=== PATIENT | male | born 1950 | race Caucasian/White ===

== ENCOUNTER → 2024-06-26 | Outpatient (CLI) | payer MEDICARE, SELFPAY ==
--- NOTE | 2024-06-26 08:23 | VDUE_ITS ---
Reason For Study: Pre Op Dialysis Right Lower Arm Left Arm Proximal Radial artery diameter 0.28 x 0.26 Left Brachial artery diameter 0.69 x 0.63 mm. mm. Proximal Radial artery waveform is Left Brachial artery waveform is triphasic . triphasic . Cephalic Vein at distal forearm measures Right Arm 0.14 x 0.13 mm. Right Brachial artery diameter 0.72 x 0.70 Cephalic Vein at mid forearm measures 0.13 x mm. 0.15 mm. Right Brachial artery waveform is Cephalic Vein proximal forearm measures 0.15 triphasic . x 0.14 mm. Cephalic Vein at distal forearm measures Cephalic Vein distal upper arm measures 0.31 0.20 x 0.22 mm. x 0.32 mm. Cephalic Vein at mid forearm measures 0.26 x Cephalic Vein at mid upper arm measures 0.11 0.31 mm. x 0.13 mm. Cephalic Vein proximal forearm measures 0.24 Cephalic Vein at proximal upper arm measures x 0.26 mm. 0.11 x 0.12 mm. Unable to visualize Cephalic V throughout Rt Proximal Basilic vein measures 0.33 x 0.30 Upper Arm. Basilic branch appears to connect mm. to cephalic at AC. Mid Basilic vein measures 0.29 x 0.29 mm. Proximal Basilic vein measures 0.63 x 0.56 Distal Basilic vein measures 0.32 x 0.33 mm. mm. Left Lower Arm Mid Basilic vein measures 0.36 x 0.44 mm. Proximal Radial artery diameter 0.39 x 0.36 Distal Basilic vein measures 0.37 x 0.40 mm. mm. Proximal Radial artery waveform is triphasic . VL/Dialysis Vein Map PRE-OP BILAT Interpretation Summary Bilateral upper extremity arteries patent with normal waveforms and measurement s above. Bilateral upper extremity veins patent with measurements above. Ordering Physician: Cristofer Falcon Referring Physician: Joseluis Bates Performed By: Nam, Mykel, RVT ???
== END | disposition home or self-care (01) ==
PROVIDERS: PCP Family Medicine; Referring Provider Student in an Organized Health Care Education/Training Program; Visit Provider Student in an Organized Health Care Education/Training Program
DX: Z99.2 Dependence on renal dialysis (principal)
CPT/HCPCS: 93985

== ENCOUNTER 2024-09-12 06:02 | Day surgery (SDC) | payer MEDICARE, SELFPAY ==
--- NOTE | 2024-08-29 18:46 | PAT.ANE_ITS ---
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 When Was Last Pacemaker Check QUESTION #4 FULL TEXT: You/Your Family Experience fever (hyperthermia) with Anesthesia Last Oral Intake Last Oral intake: Last Oral Intake NPO since Meds taken in AM with sips of water? 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 programmer Female No 08/29/24 11:42 HX of Motion Sickness No 08/29/24 11:42 HX of N/V After Surgery No 08/29/24 11:42 Non-Smoker Yes 08/29/24 11:42 Duration of Surgery greater Yes 08/29/24 11:42 than 60 minutes Number of Risk Factors 2 08/29/24 11:42 PONV Score Moderate Risk 08/29/24 11:42 Respiratory Assessment Respiratory Assessment - z os mainframe systems programmer: Respiratory Tract Infection Hx - z os mainframe systems programmer Hx Respiratory Tract Infection No 08/29/24 11:42 STOP Sleep Apnea STOP Sleep Apnea - z os mainframe systems programmer: STOP Sleep Apnea - z os mainframe systems programmer Hx Hypertension Yes: CONTROLLED WITH MED 08/29/24 11:42 Hx Sleep Apnea No 08/29/24 11:42 CPAP BIPAP Do you snore loudly (louder Yes 08/29/24 11:42 than talking or can be heard Do you often feel tired/ No 08/29/24 11:42 fatigued/ sleepy during daytime? Has anyone observed you stop No 08/29/24 11:42 breathing during sleep? STOP Results Positive 08/29/24 11:42 QUESTION #5 FULL TEXT : Do you snore loudly (louder than talking or can be heard through closed doors)? 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 Specify any problems Hx of Preganancy in last 3 N/A 08/29/24 11:42 Months Nurse Filling Out Transfusion DSCHRIBER 08/29/24 11:42 & Questions: Date: 08/29/24 08/29/24 11:42 Time: 11:44 08/29/24 11:42 Patient unable to answer at this time (ie. 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 programmer: /Reproductive Hx- z os mainframe systems programmer Hx Now No 08/29/24 11:42 Gestational Age (in weeks): EDC: Hx Hx Para Hx Section SAB No 08/29/24 11:42 [facility] Medical History (Updated 08/29/24 @ 12:00 by Marsha Acuña) Open wound Wears glasses Alcohol use Ambulates with cane Gout Arthritis Low iron Easy bruising Back pain Dietary restriction Former smoker Shortness of breath on exertion Insulin dependent diabetes mellitus History of pain when walking History of edema History of echocardiogram Cardiology follow-up encounter History of atrial fibrillation History of GI bleed History of renal dialysis History of hemodialysis CHF (congestive heart failure) Peptic ulcer Hypertension Diabetes ESRD (end stage renal disease) Home Medications ?Medication ?Instructions ?Recorded ?Last Taken ?Type furosemide 20 mg tablet (Lasix) 20 mg PO BID 08/21/24 Unknown History hydrochlorothiazide 50 mg tablet 100 mg PO BID 08/21/24 Unknown History vitamin B complex and vitamin C 1 cap PO QDAY 08/21/24 Unknown History no.20-folic acid 1 mg capsule (Renal Caps) allopurinol 100 mg tablet 100 mg PO DAILY 08/29/24 Unknown History apixaban 5 mg tablet (Eliquis) 5 mg PO BID 08/29/24 Unknown History isosorbide mononitrate 30 mg 60 mg PO DAILY 08/29/24 Unknown History tablet,extended release 24 hr Allergy/AdvReac Type Severity Reaction Status Date / Time codeine Allergy Severe Vomiting Verified 08/29/24 10:11 Surgical History (Updated 08/29/24 @ 12:00 by Marsha Acuña) Hx of colonoscopy History of esophagogastroduodenoscopy (EGD) Hx of cholecystectomy History of ankle surgery Social History (Updated 08/21/24 @ 13:45 by Magy Kee) Smoking Status: Former smoker Tobacco: How many years used: 30 how long ago did patient quit smokin yrs Audit: Pertinent Findings Pertinent Findings EKG Perinent findings: A-fib Echo (EF%) pertinent findings: October 26, 2022 ejection fraction 55 to 60% Consult pertinent findings: cardo 03/2024 Chronic afib chronic heart failure with preserved ejection fraction moderate LVH hypertension stage IV chronic kidney disease diabetes type 2 all stable Recommendation Anesthesia Recommendation Anesthesia recommendation: OPTIMIZED for anesthesia
[2024-09-12] VITALS (8 sets, daily range): BP systolic 117–135; BP diastolic 70–86; PULSE 59–76; RESP 16–17; TEMP 36.2–36.8; O2SAT 92–98; BMI 28.1
[2024-09-12 06:55] LABS: Hematocrit 37.6 % (40-54); Hemoglobin 11.2 g/dL (13.0-16.5); Mean Corp Hgb Conc 29.8 g/dL (32-36); Mean Corpuscular Hgb 26.1 pg (27.0-32.0); Mean Corpuscular Volume 87.6 fL (80-94); Mean Platelet Vol. 8.9 fl (6.2-12.0); Platelet Count 238 K/mm3 (150-450); RBC Distribution Width CV 18.6 % (11.6-14.6); RBC Distribution Width SD 59.5 fl (35.1-43.9); Red Blood Count 4.29 M/mm3 (4.6-6.2); White Blood Count 6.3 K/mm3 (4.4-11.0)
--- NOTE | 2024-09-12 06:58 | PRE.ANES_ITS ---
ASA Classification* ASA Classification ASA Classification: 3 Assessment & Plan Anesthesia* Anesthesia Assessment Anesthesia Assessment: Discussed sedation and/or anesthesia options, risks, benefits, and alternatives with patient/parents/legal guardian/POA. Questions invited. The patient/parents/legal guardian/POA seems to understand and agrees to proceed with anesthesia plan. Reviewed the physical assessment, medical history, allergy history and patient home medications list prior to surgery/procedure/anesthetic and documented any changes. Performed airway and anesthesia risk assessments. Anesthesia Type Anesthesia Type: MAC Anesthesia Focused Assessment* Temperature: 98.2 F Pulse Rate: 66 Blood Pressure: 127/71 Respiratory Rate: 17 Pulse Ox: 98 Airway Assessment Mouth opens: >3 cm Mallampati Score: II Focused Labs Anesthesia Preop lab: CBC WBC 6.3 K/mm3 (4.4-11.0) 09/12/24 06:45 RBC 4.29 M/mm3 (4.6-6.2) L 09/12/24 06:45 Hgb 11.2 g/dL (13.0-16.5) L 09/12/24 06:45 Hct 37.6 % (40-54) L 09/12/24 06:45 Plt Count 238 K/mm3 (150-450) 09/12/24 06:45 CHEMISTRY Potassium Pending 09/12/24 06:45 Sodium Pending 09/12/24 06:45 BUN Pending 09/12/24 06:45 Creatinine Pending 09/12/24 06:45 Glucose Pending 09/12/24 06:45 COAG Pre-Assessment Diagnosis/Proposed Procedure Planned Operative Procedure(s): LEFT ARM AV FISTULA CREATON Anesthesia History 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 When Was Last Pacemaker Check QUESTION #4 FULL TEXT: You/Your Family Experience fever (hyperthermia) with Anesthesia Last Oral Intake Last Oral intake: Last Oral Intake NPO since 04:40 09/12/24 06:50 Meds taken in AM with sips of Yes 09/12/24 06:50 water? Meds patient instructed to see home med list 09/12/24 06:50 take am of surgery PONV PONV - breakfast manager: PONV - breakfast manager Female No 08/29/24 11:42 HX of Motion Sickness No 08/29/24 11:42 HX of N/V After Surgery No 08/29/24 11:42 Non-Smoker Yes 08/29/24 11:42 Duration of Surgery greater Yes 08/29/24 11:42 than 60 minutes Number of Risk Factors 2 08/29/24 11:42 PONV Score Moderate Risk 08/29/24 11:42 Height & Weight Height & Weight: Anesthesia: Height & Weight Height 5 ft 10 in 09/12/24 06:50 Weight: 89 kg 09/12/24 06:50 Body Mass Index (BMI) 28.1 09/12/24 06:50 Respiratory Assessment Respiratory Assessment - breakfast manager: Respiratory Tract Infection Hx - breakfast manager Hx Respiratory Tract Infection No 08/29/24 11:42 STOP Sleep Apnea STOP Sleep Apnea - breakfast manager: STOP Sleep Apnea - breakfast manager Hx Hypertension Yes: CONTROLLED WITH MED 08/29/24 11:42 Hx Sleep Apnea No 08/29/24 11:42 CPAP BIPAP Do you snore loudly (louder Yes 08/29/24 11:42 than talking or can be heard Do you often feel tired/ No 08/29/24 11:42 fatigued/ sleepy during daytime? Has anyone observed you stop No 08/29/24 11:42 breathing during sleep? STOP Results Positive 08/29/24 11:42 QUESTION #5 FULL TEXT : Do you snore loudly (louder than talking or can be heard through closed doors)? 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 Specify any problems Hx of Preganancy in last 3 N/A 08/29/24 11:42 Months Nurse Filling Out Transfusion DSCHRIBER 08/29/24 11:42 & Questions: Date: 08/29/24 08/29/24 11:42 Time: 11:44 08/29/24 11:42 Patient unable to answer at this time (ie. confused, unrespo /Reproduction History /Reproductive History - breakfast manager: /Reproductive Hx- breakfast manager Hx Now No 08/29/24 11:42 Gestational Age (in weeks): EDC: Hx Hx Para Hx Section SAB No 08/29/24 11:42 Active Medications Active Medications: Current Medications Generic Name Dose Route Start Last Admin Trade Name Freq PRN Reason Stop Dose Admin Cefazolin Sodium 2 gm/ N/A 20 mls @ 400 mls/hr 09/12/24 07:30 IV 09/12/24 07:32 PREOP ONE PFSH Medical History Open wound Wears glasses Alcohol use Ambulates with cane Gout Arthritis Low iron Easy bruising Back pain Dietary restriction Former smoker Shortness of breath on exertion Insulin dependent diabetes mellitus History of pain when walking History of edema History of echocardiogram Cardiology follow-up encounter History of atrial fibrillation History of GI bleed History of renal dialysis History of hemodialysis CHF (congestive heart failure) Peptic ulcer Hypertension Diabetes ESRD (end stage renal disease) Home Medications ?Medication ?Instructions ?Recorded ?Last Taken ?Type furosemide 20 mg tablet (Lasix) 20 mg PO BID 08/21/24 09/11/24 History vitamin B complex and vitamin C 1 cap PO QDAY 08/21/24 09/11/24 History no.20-folic acid 1 mg capsule (Renal Caps) allopurinol 100 mg tablet 100 mg PO DAILY 08/29/24 09/12/24 History apixaban 5 mg tablet (Eliquis) 5 mg PO BID 08/29/24 09/10/24 History isosorbide mononitrate 30 mg 60 mg PO DAILY 08/29/24 09/12/24 History tablet,extended release 24 hr famotidine 20 mg tablet 20 mg PO BID 09/12/24 09/11/24 History hydralazine 50 mg tablet 75 mg PO TID 09/12/24 Unknown History pantoprazole 40 mg tablet,delayed 40 mg PO DAILY 09/12/24 09/12/24 History release (Protonix) Allergy/AdvReac Type Severity Reaction Status Date / Time codeine Allergy Severe Vomiting Verified 09/12/24 06:46 Surgical History Hx of colonoscopy History of esophagogastroduodenoscopy (EGD) Hx of cholecystectomy History of ankle surgery Social History Smoking Status: Former smoker Tobacco: How many years used: 30 how long ago did patient quit smokin yrs Review of Systems (Anesthesia) ROS Narrative System reviewed and no additional complaints, except as documented.
[2024-09-12 07:09] LABS: Bedside Glucose 115 mg/dL (74-106)
[2024-09-12 07:15] LABS: Anion Gap 5 (5-15); BUN 41 mg/dL (7-18); BUN/Creat Ratio 10.6 RATIO (10-20); Calcium,Total 9.1 mg/dL (8.5-10.1); Chloride 102 mmol/L (98-107); Creatinine, Serum 3.88 mg/dL (0.70-1.30); EST Glomerular Filtration Rate 16 mL/min (>60); Est Glom Filt Rate - Afr Amer 20 mL/min (>60); Estimated Creatinine Clearance 19.33 ml/min; Glucose 117 mg/dL (74-106); Potassium 4.3 mmol/L (3.5-5.1); Sodium Level 136 mmol/L (136-145)
--- NOTE | 2024-09-12 07:37 | PCM.HP.BLA ---
History and Physical Allergies codeine Allergy (Severe, Verified 08/21/24 13:47) Vomiting Medications ?Medication ?Instructions ?Recorded ?Confirmed ?Type furosemide 20 mg tablet (Lasix) 20 mg PO BID 08/21/24 08/21/24 History hydrochlorothiazide 50 mg tablet 100 mg PO BID 08/21/24 08/21/24 History vitamin B complex and vitamin C 1 cap PO QDAY 08/21/24 08/21/24 History no.20-folic acid 1 mg capsule (Renal Caps) Have you fallen in the past year?: Yes PFSH Medical History (Updated 08/21/24 @ 15:[address] Hugo Otto MD) CHF (congestive heart failure) Peptic ulcer Hypertension Diabetes ESRD (end stage renal disease) Surgical History (Updated 08/21/24 @ 13:44 by Magy eKe) Hx of cholecystectomy History of ankle surgery Social History (Updated 08/21/24 @ 13:45 by Magy Kee) Smoking Status: Former smoker Tobacco: How many years used: 30 how long ago did patient quit smokin yrs HPI HPI HPI: ROZ BAKER, is a 74 M who presents to the office today for evaluation for dialysis access. He has been on HD via right IJ catheter since ~ March. Had been followed for many years for renal decline due to HTN and DM. No prior arm or clavicle fracture/pacer/node dissection/DVT/PICC. Right hand dominant. ROS General General: Yes weight change; No appetite, fatigue, colon cancer, breast cancer or weakness HEENT HEENT: No difficulty swallowing, eye injury, eye surgery, swollen glands or hoarseness Endo Endocrine: No thyroid disease, diabetes mellitus, thyroid cancer, Hair loss, heat intolerance or cold intolerance Skin Skin: No rash or changing moles Musc Musculoskeletal: Yes arthritis, gout and joint pain; No back problems or rheumatoid arthritis Cardio Cardiovascular: Yes murmur and high blood pressure; No pacemaker, heart disease, atrial fibrillation, heart attack, heart stent, palpitations, shortness of breat with exertion or chest pain Psych Psychiatric: No depression, anxiety or hearing voices Resp Respiratory: Yes shortness of breath, No sleep apnea, No cough, No COPD, No asthma, No emphysema and No wheezing Gastro Gastrointestinal: No abdominal pain, No nausea or vomiting, No diarrhea, No constipation, No blood in stool, No acid reflux, No hemorrhoids, Yes ulcers, No gallbladder problem and No black,tarry stools Zan Hematologic: Yes blood thinners, No blood disorders, No bleeding, No anemia and No blood clots Neuro Neurologic: No system reviewed and no additional complaints, except as documented, No as per HPI, No abnormal gait, No abnormal hearing, No abnormal movements, No abnormal speech, No behavioral changes, No burning sensations, No confusion, No convulsions, No disequilibrium, No dizziness, No localized weakness, No frequent falls, No headache(s), No lack of coordination, No loss of vision, No memory loss, Yes numbness, No other visual disturbances, No radicular pain, No restless legs, No sensory deficit, No syncope, Yes tingling, No tremor(s), No weakness and No other Exam Const General: cooperative, healthy appearing, comfortable, no acute distress and well developed Nutritional Appearance: well nourished Orientation: alert, awake and oriented x3 HENMT Head: normocephalic and atraumatic Ears: hearing grossly normal bilaterally Nose: external nose normal Eyes General: appearance normal, both eyes and all related structures EOM: EOM intact bilaterally Neck Neck: normal visual inspection, full ROM and trachea midline Resp Effort & Inspection: normal respiratory effort, able to speak in complete sentences, symmetric chest movement, no audible wheezes, not labored, no stridor and no use of accessory muscles Cardio Rate: regular rate Rhythm: regular rhythm Pulses: brachial pulses present and radial pulses present Skin General: no rashes or lesions noted and no erythema Wounds: no wounds Neuro Cranial Nerves: CN's II-XI intact bilaterally and EOM intact bilaterally Speech: speech normal Gait: normal gait Motor: strength 5/5 throughout Sensory Exam: no sensory deficits noted Psych Appearance: grossly normal and well kempt Mental Status: mental status grossly normal Mood: congruent mood Speech and Movement: speech and movement normal Thought Content: normal Judgment: judgment good Coding Level of Care Code Off vis,new,level 4 Diagnoses ESRD (end stage renal disease) on dialysis N18.6; Z99.2 Assessment and Plan Assessment and Plan (1) ESRD (end stage renal disease) on dialysis: Status: Chronic Plan: -vein mapping reveals adequate bilateral basilic veins -plan left arm stage I -has left rotator cuff issues; intact passive motion at shoulder
[2024-09-12] MEDS: Cefazolin 2 GM in Syringe IV (07:43)
--- NOTE | 2024-09-12 08:54 | DCINST_ITS ---
Discharge Instructions Diet Discharge Diet: No restrictions Activity Lifting Restrictions: do not lift > 20 lbs with left arm for 14 days Additional Activity Instructions:: do not submerge incision for 14 days Dressing / Incision Call your doctor if your incision/area has: Sudden Increased Bleeding, Increased Pain/ Swelling, Increased Redness and Foul Smelling Discharge Call your doctor if you observe: Fever of 101 or Higher, Coldness, Increased Pain and Numbness or Tingling Remove Dressing in: 2 days Cleanse incision/area with: Soap & Water Follow Up Care Test Results: Test results from this visit will be discussed in further detail at your follow- up appointment, if applicable. Discharge Plan Admission Attending Provider: Hugo Otto Primary Care Provider: Joseluis Bates Instructions Print Language: Algerian Discharge Orders/Prescriptions Prescriptions: New oxycodone 5 mg tablet 5 mg PO Q8H PRN (Reason: pain) 2 Days Qty: 6 0RF Continued Renal Caps 1 mg capsule 1 cap PO QDAY furosemide [Lasix] 20 mg tablet 20 mg PO BID isosorbide mononitrate 30 mg tablet extended release 24 hr 60 mg PO DAILY allopurinol 100 mg tablet 100 mg PO DAILY pantoprazole [Protonix] 40 mg tablet,delayed release (DR/EC) 40 mg PO DAILY hydralazine 50 mg tablet 75 mg PO TID famotidine 20 mg tablet 20 mg PO BID Held Eliquis 5 mg tablet 5 mg PO BID Hold Instructions: Resume on 09/14/24. Referrals / Follow Up: Joseluis Bates MD [Primary Care Provider] - Disposition Disposition (needs filled in before D/C Order can be placed): Home, Self Care
--- NOTE | 2024-09-12 08:57 | PCM.OPRPT ---
Operative Report (Standard) Operative Information Date of Procedure: 09/12/24 Pre-Operative Diagnosis: ESRD Post-Operative Diagnosis: same Surgery/Procedure Performed: left stage I basilic fistula creation frame aligner: Yes Campus Dean: Clementina Torres Tasks completed by plant attendant or assistant operator: Opening, Closing, Opening & closing, Dissecting tissue, Altering tissue, Hemostasis: Tie and Retracting Type of Anesthesia: Local MAC, Local and MAC RN Documented Start/Stop Times: Operation Date: 09/12/24 07:30 Case Time Into Pre-Op 09/12/24 06:08 Out of Pre-Op 09/12/24 07:38 Anesthesia Start 09/12/24 07:43 Into Room 09/12/24 07:43 Procedure Start 09/12/24 08:05 Procedure End 09/12/24 09:02 Into Recovery 09/12/24 09:05 Anesthesia End 09/12/24 09:06 Out of Room 09/12/24 09:06 Into Phase II Recovery 09/12/24 09:26 Out of Recovery 09/12/24 09:26 Out of Phase II 09/12/24 10:06 Procedure Start Time: 08:05 Procedure Stop Time: 09:00 Select all DRAINS/GRAFTS/IMPLANTS that apply: None Estimated Blood Loss: 15 Specimen collected: No Description of surgery: HPI: Patient is a 74-year-old male with end-stage renal disease currently on dialysis. He had venous duplex mapping which revealed satisfactory left upper arm basilic vein for [place] fistula creation. He presents now for stage I basilic fistula. Description of procedure: Upon obtaining form consent and verification correct patient procedure site patient taken the operating where he was positioned prepped and draped in usual sterile fashion. Timeouts performed and sedation administered by anesthesia. Ultrasound was used to evaluate the basilic vein and its position relative to the brachial artery. The median cubital branch was of satisfactory caliber as well as the die repairer trimmer dies vein in close proximity to the brachial artery distal to the antecubital crease. Skin overlying the vessel was anesthetized 1% lidocaine and transverse incision made with a 15 blade. Bovie electrocautery was used to dissect down through the subcutaneous tissue and self-retaining retractors put in position. Further dissection was carried down until the vein was visualized which point sharp dissection was dissected free proximal and distal and a right angle was placed vessel loop. Sidebranches were ligated with silk ties and divided and we then turned our attention to the arterial exposure. Bovie was utilized to dissect down to the level the fascia which was then incised in a cruciate configuration exposing the brachial artery. Self-retaining retractors were then moved deeper in the wound and sharp dissection used to dissect free and the vessel proximal and distal with care taken to identify and protect adjacent nerve and vein structures. A writing was replaced vessel loop proximal and distal and the patient was in heparinized allowed to circulate for 3 minutes. The vein was then marked to maintain orientation and ligated distally and divided. It was then dilated up to 3.5millimeters and flushed with heparinized saline. The brachial arteries and occluded with Vesseloops and longitudinal arteriotomy created with 11 blade and extended with Fair scissors. The vein was then beveled to match the arteriotomy and anastomosis performed with a 6-0 Prolene in a running fashion. Prior to completing the suture line vessels were backbled and after completing the suture line clamps were removed with satisfactory stasis noted. There is a palpable thrill in the outflow fistula and palpable radial pulse remained at the wrist. Heparin was then reversed with protamine the incision inspected hemostasis. We then closed with 3-0 Vicryl followed by 4 Monocryl and Dermabond for the skin. The patient was then taken to the recovery room with anticipated discharge to home. Surgical Findings: see above Complications Complications: No
[2024-09-12] MEDS: Lidocaine 1% (20 ml mdv) 20 ML Vial (08:58)
[2024-09-12] MEDS: Bupivacaine 0.25% 30 ML Vial (08:58)
--- NOTE | 2024-09-12 09:17 | PCM.POST.ANE ---
Anesthesia: Postop Eval I Current Vital Signs Temperature: 97.5 F Pulse Rate: 76 Blood Pressure: 127/70 Respiratory Rate: 16 Pulse Ox: 94 Oxygen Delivery Method: Room Air Assessment Airway patent: Yes Spontaneous unlabored respirations: Yes Mental status: Awake and Calm nausea: No Vomiting: No Anesthesia Complication: No Fluid Hydration Crystalloid volume administer (ml): 200 Total IV fluid infused: 200 Progress Note Anesthesia document: Postop Eval 1 completed: Yes
--- NOTE | 2024-09-12 15:31 | POSTOPAN2_ITS ---
Anesthesia Postop Eval I Sum Postop Eval Completion status Anesthesia document: Postop Eval 1 completed: Yes Anesthesia Postop Eval I Summary Anesthesia Postop Eval I Summary: Anesthesia Postop Eval I: Assessment Summary Airway patent Yes 09/12/24 09:19 BPO SPECIALIST.[email or web address] Spontaneous unlabored Yes 09/12/24 09:19 BPO SPECIALIST.JOANN respirations Mental status Awake,Calm 09/12/24 09:19 BPO SPECIALIST.[email or web address] nausea No 09/12/24 09:19 BPO SPECIALIST.YUMIKOLOU Vomiting No 09/12/24 09:19 BPO SPECIALIST.YUMIKOLOU Anesthesia Postop Eval I: Fluid Summary Crystalloid volume administer 200 09/12/24 09:19 BPO SPECIALIST.YUMIKOLOU (ml) Colloids volume administered ( ml) Blood Product volume administered (ml) Total IV fluid infused 200 09/12/24 09:19 BPO SPECIALIST.YUMIKOLOU Anesthesia Postop Eval I: Summary Notes Anesthesia Complication No 09/12/24 09:19 BPO SPECIALIST.JOANN Anesthesia Complication Comment: Post-operative progress note Anesthesia: Postop Eval II Evaluation Mental status: Awake Pain Level: 0 nausea: No Vomiting: No
--- NOTE | 2024-09-12 15:31 | PCM.POSTANE2 ---
Anesthesia Postop Eval I Sum Postop Eval Completion status Anesthesia document: Postop Eval 1 completed: Yes Anesthesia Postop Eval I Summary Anesthesia Postop Eval I Summary: Anesthesia Postop Eval I: Assessment Summary Airway patent Yes 09/12/24 09:19 DIVORCE LAWYER.[email or web address] Spontaneous unlabored Yes 09/12/24 09:19 DIVORCE LAWYER.JOANN respirations Mental status Awake,Calm 09/12/24 09:19 DIVORCE LAWYER.YUMIKOLOU nausea No 09/12/24 09:19 DIVORCE LAWYER.YUMIKOLOU Vomiting No 09/12/24 09:19 DIVORCE LAWYER.YUMIKOLOU Anesthesia Postop Eval I: Fluid Summary Crystalloid volume administer 200 09/12/24 09:19 DIVORCE LAWYER.YUMIKOLOU (ml) Colloids volume administered ( ml) Blood Product volume administered (ml) Total IV fluid infused 200 09/12/24 09:19 DIVORCE LAWYER.YUMIKOLOU Anesthesia Postop Eval I: Summary Notes Anesthesia Complication No 09/12/24 09:19 DIVORCE LAWYER.JOANN Anesthesia Complication Comment: Post-operative progress note Anesthesia: Postop Eval II Evaluation Mental status: Awake Pain Level: 0 nausea: No Vomiting: No
== END 2024-09-12 10:06 | disposition home or self-care (01) ==
LOC: SDC 06:10 → AC 06:11
PROVIDERS: PCP Family Medicine; Referring Provider Surgery Trauma Surgery; Visit Provider Surgery Trauma Surgery
PROC: (CPT 36819; principal; 2024-09-12 07:15)
DX: I13.2 Hypertensive heart and chronic kidney disease with heart failure and with stage 5 chronic kidney disease, or end stage renal disease (principal); N18.6 End stage renal disease; I50.9 Heart failure, unspecified; E11.22 Type 2 diabetes mellitus with diabetic chronic kidney disease; Z99.2 Dependence on renal dialysis; Z79.01 Long term (current) use of anticoagulants; Z79.899 Other long term (current) drug therapy; Z87.891 Personal history of nicotine dependence
CPT/HCPCS: 36819; 01844; 80048; 82962; 85027; A4648; A4216; J2405

== ENCOUNTER 2025-01-09 07:05 | Day surgery (SDC) | payer MEDICARE, SELFPAY ==
--- NOTE | 2024-11-20 13:16 | PAT.ANESEVAL ---
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 When Was Last Pacemaker Check QUESTION #4 FULL TEXT: You/Your Family Experience fever (hyperthermia) with Anesthesia Last Oral Intake Last Oral intake: Last Oral Intake NPO since Meds taken in AM with sips of water? 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 - farm machinery assembler: PONV - farm machinery assembler Female No 11/20/24 11:15 HX of Motion Sickness No 11/20/24 11:15 HX of N/V After Surgery No 11/20/24 11:15 Non-Smoker Yes 11/20/24 11:15 Duration of Surgery greater Yes 11/20/24 11:15 than 60 minutes Number of Risk Factors 2 11/20/24 11:15 PONV Score Moderate Risk 11/20/24 11:15 Height & Weight Height & Weight: Anesthesia: Height & Weight Height 5 ft 10 in 09/12/24 06:50 Respiratory Assessment Respiratory Assessment - farm machinery assembler: Respiratory Tract Infection Hx - farm machinery assembler Hx Respiratory Tract Infection No 11/20/24 11:15 STOP Sleep Apnea STOP Sleep Apnea - farm machinery assembler: STOP Sleep Apnea - farm machinery assembler Hx Hypertension Yes: CONTROLLED WITH MEDS 11/20/24 11:15 Hx Sleep Apnea No 11/20/24 11:15 CPAP BIPAP Do you snore loudly (louder Yes 11/20/24 11:15 than talking or can be heard Do you often feel tired/ No 11/20/24 11:15 fatigued/ sleepy during daytime? Has anyone observed you stop No 11/20/24 11:15 breathing during sleep? STOP Results Positive 11/20/24 11:15 QUESTION #5 FULL TEXT : Do you snore loudly (louder than talking or can be heard through closed doors)? 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 Specify any problems Hx of Preganancy in last 3 N/A 11/20/24 11:15 Months Nurse Filling Out Transfusion DSCHRIBER 11/20/24 11:15 & Questions: Date: 11/20/24 11/20/24 11:15 Time: 11:17 11/20/24 11:15 Patient unable to answer at this time (ie. confused, unrespo /Reproduction History /Reproductive History - farm machinery assembler: /Reproductive Hx- farm machinery assembler Hx Now No 11/20/24 11:15 Gestational Age (in weeks): EDC: Hx Hx Para Hx Section SAB No 11/20/24 11:15 [facility] Medical History (Updated 11/20/24 @ 11:26 by Mrasha Acuña) Wears glasses Alcohol use Ambulates with cane Gout Arthritis Low iron Easy bruising Back pain Dietary restriction Former smoker Shortness of breath on exertion Insulin dependent diabetes mellitus History of pain when walking History of edema History of echocardiogram Cardiology follow-up encounter History of atrial fibrillation History of GI bleed History of renal dialysis History of hemodialysis CHF (congestive heart failure) Peptic ulcer Hypertension Diabetes ESRD (end stage renal disease) Home Medications ?Medication ?Instructions ?Recorded ?Last Taken ?Type furosemide 20 mg tablet (Lasix) 20 mg PO DAILY 08/21/24 09/11/24 History vitamin B complex and vitamin C 1 cap PO QDAY 08/21/24 09/11/24 History no.20-folic acid 1 mg capsule (Renal Caps) allopurinol 100 mg tablet 100 mg PO DAILY 08/29/24 09/12/24 History apixaban 5 mg tablet (Eliquis) 5 mg PO BID 08/29/24 09/10/24 History famotidine 20 mg tablet 20 mg PO BID 09/12/24 09/11/24 History hydralazine 50 mg tablet 75 mg PO TID 09/12/24 Unknown History pantoprazole 40 mg tablet,delayed 40 mg PO DAILY 09/12/24 09/12/24 History release (Protonix) isosorbide mononitrate 60 mg 60 mg PO DAILY 11/20/24 Unknown History tablet,extended release 24 hr metoprolol succinate 25 mg 25 mg PO DAILY 11/20/24 Unknown History tablet,extended release 24 hr sevelamer carbonate 800 mg tablet 800 mg PO TID 11/20/24 Unknown History Allergy/AdvReac Type Severity Reaction Status Date / Time codeine Allergy Severe Vomiting Verified 11/20/24 11:07 Surgical History Hx of colonoscopy History of esophagogastroduodenoscopy (EGD) Hx of cholecystectomy History of ankle surgery Social History Smoking Status: Former smoker Tobacco: How many years used: 30 how long ago did patient quit smokin yrs Audit: Pertinent Findings Pertinent Findings EKG Perinent findings: 10/05/2024. Atrial fibrillation 82 bpm left axis deviation, prolonged QT Echo (EF%) pertinent findings: 05/18/2023 EF 50%. Pulmonary artery pressure 50 to 55 mmHg. Consult pertinent findings: [facility] 10/05/2024 longstanding persistent atrial fibrillation. Chronic heart failure with preserved ejection fraction. Primary hypertension. Chronic kidney disease. Chronic dialysis. . Currently relatively stable. Recommendation Anesthesia Recommendation Anesthesia recommendation: OPTIMIZED for anesthesia
[2024-12-12 10:33] VITALS: BP 142/74; PULSE 67; RESP 16; TEMP 36.9; O2SAT 100; BMI 27.7
[2024-12-12] MEDS: 0.9% Normal Saline (500mL Bag) 500 ML 15 ML IV (10:44)
[2024-12-14 16:19] LABS: Bedside Glucose 118 mg/dL (74-106)
[2025-01-09] VITALS (13 sets, daily range): BP systolic 123–146; BP diastolic 60–80; PULSE 65–80; RESP 16–18; TEMP 36.4–36.9; O2SAT 90–98; BMI 27.4
[2025-01-09] MEDS: 0.9% Normal Saline (500mL Bag) 500 ML 15 ML IV (07:50)
[2025-01-09 07:55] LABS: Hemoglobin 9.9 g/dL (13.0-16.5); Mean Corp Hgb Conc 30.9 g/dL (32-36); Mean Corpuscular Volume 90.4 fL (80-94); Mean Platelet Vol. 8.7 fl (6.2-12.0); Platelet Count 238 K/mm3 (150-450); RBC Distribution Width CV 17.1 % (11.6-14.6); RBC Distribution Width SD 56.5 fl (35.1-43.9); Red Blood Count 3.54 M/mm3 (4.6-6.2); White Blood Count 6.4 K/mm3 (4.4-11.0)
[2025-01-09 08:18] LABS: Anion Gap 12 (5-15); BUN 42 mg/dL (4-19); BUN/Creat Ratio 9.4 RATIO (10-20); Calcium,Total 9.1 mg/dL (7.6-11.0); Carbon Dioxide 25.2 mmol/L (21.0-32.0); Chloride 99 mmol/L (98-108); Creatinine, Serum 4.43 mg/dL (0.70-1.20); EST Glomerular Filtration Rate 13 (>60); Estimated Creatinine Clearance 15.56 ml/min (50-250); Glucose 103 mg/dL (70-99); Potassium 4.5 mmol/L (3.3-5.1); Sodium Level 137 mmol/L (133-145)
--- NOTE | 2025-01-09 08:22 | PCM.PRE.AN2 ---
ASA Classification* ASA Classification ASA Classification: 3 Assessment & Plan Anesthesia* Anesthesia Assessment Anesthesia Assessment: Discussed sedation and/or anesthesia options, risks, benefits, and alternatives with patient/parents/legal guardian/POA. Questions invited. The patient/parents/legal guardian/POA seems to understand and agrees to proceed with anesthesia plan. Reviewed the physical assessment, medical history, allergy history and patient home medications list prior to surgery/procedure/anesthetic and documented any changes. Performed airway and anesthesia risk assessments. Anesthesia Type Anesthesia Type: General History Source History Obtained from:: Patient and Chart Anesthesia Focused Assessment* Temperature: 97.6 F Pulse Rate: 65 Blood Pressure: 134/63 Respiratory Rate: 16 Pulse Ox: 98 Oxygen Delivery Method: Room Air Airway Assessment Mouth opens: >3 cm Mallampati Score: III Teeth Condition: Missing (Patient only has about 4 teeth. They are tight.) Neck Range of motion (ROM): Limited ROM Focused Labs Anesthesia Preop lab: CBC WBC 6.4 K/mm3 (4.4-11.0) 01/09/25 07:40 01/09/25 RBC 3.54 M/mm3 (4.6-6.2) L 01/09/25 07:40 01/09/25 Hgb 9.9 g/dL (13.0-16.5) L 01/09/25 07:40 01/09/25 Hct 32.0 % (40-54) L 01/09/25 07:40 01/09/25 Plt Count 238 K/mm3 (150-450) 01/09/25 07:40 01/09/25 CHEMISTRY Potassium 4.5 mmol/L (3.3-5.1) 01/09/25 07:40 01/09/25 Sodium 137 mmol/L (133-145) 01/09/25 07:40 01/09/25 BUN 42 mg/dL (4-19) H 01/09/25 07:40 01/09/25 Creatinine 4.43 mg/dL (0.70-1.20) H 01/09/25 07:40 01/09/25 Glucose 103 mg/dL (70-99) H 01/09/25 07:40 01/09/25 POC Glucose 118 mg/dL (74-106) H 12/12/24 10:31 12/12/24 COAG Pre-Assessment Diagnosis/Proposed Procedure Planned Operative Procedure(s): LUE AVF STAGE 2, Left Anesthesia History 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 When Was Last Pacemaker Check QUESTION #4 FULL TEXT: You/Your Family Experience fever (hyperthermia) with Anesthesia Last Oral Intake Last Oral intake: Last Oral Intake NPO since 22:30 01/09/25 07:46 Meds taken in AM with sips of No 01/09/25 07:46 water? 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 Female No 01/05/25 13:45 HX of Motion Sickness No 01/05/25 13:45 HX of N/V After Surgery No 01/05/25 13:45 Non-Smoker Yes 01/05/25 13:45 Duration of Surgery greater Yes 01/05/25 13:45 than 60 minutes Number of Risk Factors 2 01/05/25 13:45 PONV Score Moderate Risk 01/05/25 13:45 Height & Weight Height & Weight: Anesthesia: Height & Weight Height 5 ft 10 in 01/09/25 07:46 Weight: 86.9 kg 01/09/25 07:46 Body Mass Index (BMI) 27.4 01/09/25 07:46 Respiratory Assessment Respiratory Assessment - dry starch supervisor: Respiratory Tract Infection Hx - dry starch supervisor Hx Respiratory Tract Infection No 01/05/25 13:45 STOP Sleep Apnea STOP Sleep Apnea - dry starch supervisor: STOP Sleep Apnea - dry starch supervisor Hx Hypertension Yes: CONTROLLED WITH MED 01/05/25 13:45 Hx Sleep Apnea No 01/05/25 13:45 CPAP BIPAP Do you snore loudly (louder Yes 01/05/25 13:45 than talking or can be heard Do you often feel tired/ No 01/05/25 13:45 fatigued/ sleepy during daytime? Has anyone observed you stop No 01/05/25 13:45 breathing during sleep? STOP Results Positive 01/05/25 13:45 QUESTION #5 FULL TEXT : Do you snore loudly (louder than talking or can be heard through closed doors)? 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 Specify any problems Hx of Preganancy in last 3 N/A 01/05/25 13:45 Months Nurse Filling Out Transfusion DSCHRIBER 01/05/25 13:45 & Questions: Date: 01/05/25 01/05/25 13:45 Time: 13:45 01/05/25 13:45 Patient unable to answer at this time (ie. confused, unrespo /Reproduction History /Reproductive History - dry starch supervisor: /Reproductive Hx- dry starch supervisor Hx Now No 01/05/25 13:45 Gestational Age (in weeks): EDC: Hx Hx Para Hx Section SAB No 01/05/25 13:45 Active Medications Active Medications: Current Medications Generic Name Dose Route Start Last Admin Trade Name Freq PRN Reason Stop Dose Admin Cefazolin Sodium 2 gm/ Sodium 110 mls @ 150 mls/hr 01/09/25 09:00 Chloride IV 01/09/25 09:43 INTRAOP ONE Sodium Chloride 500 mls @ 0 mls/hr 01/09/25 07:30 01/09/25 07:50 IV 15 mls/hr .Q0M TUCKER Administration KVO PFSH Medical History Walker as ambulation aid Fractured pelvis Wears glasses Alcohol use Ambulates with cane Gout Arthritis Low iron Easy bruising Back pain Dietary restriction Former smoker Shortness of breath on exertion Insulin dependent diabetes mellitus History of pain when walking History of edema History of echocardiogram Cardiology follow-up encounter History of atrial fibrillation History of GI bleed History of renal dialysis History of hemodialysis CHF (congestive heart failure) Peptic ulcer Hypertension Diabetes ESRD (end stage renal disease) Home Medications ?Medication ?Instructions ?Recorded ?Last Taken ?Type furosemide 20 mg tablet (Lasix) 20 mg PO DAILY 08/21/24 12/12/24 History vitamin B complex and vitamin C 1 cap PO QHS 08/21/24 09/11/24 History no.20-folic acid 1 mg capsule (Renal Caps) allopurinol 100 mg tablet 100 mg PO DAILY 08/29/24 12/12/24 History apixaban 5 mg tablet (Eliquis) 5 mg PO BID 08/29/24 01/07/25 04:30 History famotidine 20 mg tablet 20 mg PO QHS 09/12/24 12/12/24 History hydralazine 50 mg tablet 75 mg PO TID 09/12/24 12/12/24 History pantoprazole 40 mg tablet,delayed 40 mg PO DAILY 09/12/24 12/12/24 History release (Protonix) isosorbide mononitrate 60 mg 60 mg PO DAILY 11/20/24 12/12/24 History tablet,extended release 24 hr metoprolol succinate 25 mg 25 mg PO QHS 11/20/24 12/11/24 History tablet,extended release 24 hr sevelamer carbonate 800 mg tablet 800 mg PO TID 11/20/24 12/11/24 History docusate sodium 100 mg capsule 100 mg PO BID 01/05/25 Unknown History (Colace) insulin lispro 100 unit/mL 1 unit subcut BID SLIDING SCALE 01/05/25 Unknown History subcutaneous pen (Humalog KwikPen (U-100) Insulin) oxycodone-acetaminophen 5 mg-325 1 tab PO Q6H PRN pain 01/05/25 Unknown History mg tablet (Percocet) Allergy/AdvReac Type Severity Reaction Status Date / Time codeine Allergy Severe Vomiting Verified 01/09/25 07:45 Surgical History Hx of colonoscopy History of esophagogastroduodenoscopy (EGD) Hx of cholecystectomy History of ankle surgery Social History Smoking Status: Former smoker Tobacco: How many years used: 30 how long ago did patient quit smokin yrs Review of Systems (Anesthesia) ROS Narrative System reviewed and no additional complaints, except as documented.
--- NOTE | 2025-01-09 09:43 | PCM.HP.STD ---
HPI - General HPI Narrative ROZ BAKER, is a 74 M who presents with a prior left stage I basilic fistula that has matured well. He is here now for stage II. He has significantly limited shoulder mobility so cadaver graft will be used to extend working length and tunnel more lateral on arm. [facility] Medical History Walker as ambulation aid Fractured pelvis Wears glasses Alcohol use Ambulates with cane Gout Arthritis Low iron Easy bruising Back pain Dietary restriction Former smoker Shortness of breath on exertion Insulin dependent diabetes mellitus History of pain when walking History of edema History of echocardiogram Cardiology follow-up encounter History of atrial fibrillation History of GI bleed History of renal dialysis History of hemodialysis CHF (congestive heart failure) Peptic ulcer Hypertension Diabetes ESRD (end stage renal disease) Home Medications ?Medication ?Instructions ?Recorded ?Last Taken ?Type furosemide 20 mg tablet (Lasix) 20 mg PO DAILY 08/21/24 12/12/24 History vitamin B complex and vitamin C 1 cap PO QHS 08/21/24 09/11/24 History no.20-folic acid 1 mg capsule (Renal Caps) allopurinol 100 mg tablet 100 mg PO DAILY 08/29/24 12/12/24 History apixaban 5 mg tablet (Eliquis) 5 mg PO BID 08/29/24 01/07/25 04:30 History famotidine 20 mg tablet 20 mg PO QHS 09/12/24 12/12/24 History hydralazine 50 mg tablet 75 mg PO TID 09/12/24 12/12/24 History pantoprazole 40 mg tablet,delayed 40 mg PO DAILY 09/12/24 12/12/24 History release (Protonix) isosorbide mononitrate 60 mg 60 mg PO DAILY 11/20/24 12/12/24 History tablet,extended release 24 hr metoprolol succinate 25 mg 25 mg PO QHS 11/20/24 12/11/24 History tablet,extended release 24 hr sevelamer carbonate 800 mg tablet 800 mg PO TID 11/20/24 12/11/24 History docusate sodium 100 mg capsule 100 mg PO BID 01/05/25 Unknown History (Colace) insulin lispro 100 unit/mL 1 unit subcut BID SLIDING SCALE 01/05/25 Unknown History subcutaneous pen (Humalog KwikPen (U-100) Insulin) oxycodone-acetaminophen 5 mg-325 1 tab PO Q6H PRN pain 01/05/25 Unknown History mg tablet (Percocet) Allergy/AdvReac Type Severity Reaction Status Date / Time codeine Allergy Severe Vomiting Verified 01/09/25 07:45 Surgical History Hx of colonoscopy History of esophagogastroduodenoscopy (EGD) Hx of cholecystectomy History of ankle surgery Social History Smoking Status: Former smoker Tobacco: How many years used: 30 how long ago did patient quit smokin yrs ROS Constitutional Constitutional: Denies chills, fever(s), frequent falls, lethargy or weakness Eyes Eyes: Denies blind spots, change in vision or loss of vision ENT HEENT: Denies bleeding gums, hoarseness or sore throat Cardiovascular Cardiovascular: Denies abdominal pain, bluish discoloration of hand/feet, chest pain with activity, claudication, cold extremities, cyanosis, dyspnea on exertion, erythema on extremities, irregular heart rhythm, leg edema, leg ulcers, numbness in extremities or weakness in extremities Respiratory/Chest Respiratory/Chest: Denies cough, excessive phlegm production, shortness of breath at rest, shortness of breath with exertion or wheezing Gastrointestinal Gastrointestinal: Denies anorexia, change in stool character, constipation, diarrhea, melena or rectal bleeding Genitourinary Genitourinary: Denies dysuria or hematuria Musculoskeletal Musculoskeletal: Denies abnormal gait Integumentary Integumentary: Reports other Details: ; Denies erythema, non-healing lesions or wounds Neurologic Neurologic: Denies abnormal speech, focal weakness, headache(s), loss of vision, numbness, paresthesias or sensory deficit Hematologic/Lymphatic Hematologic/Lymphatic: Denies easy bleeding, easy bruising or lymphadenopathy Vital Signs Vital Signs Vital Signs: 01/09/25 07:46 01/09/25 07:46 01/09/25 08:30 Temperature 97.6 F L 97.6 F L Temperature Source Temporal Pulse Rate 65 65 Respiratory Rate 16 16 Respiratory Pattern Normal Blood Pressure 134/63 H 134/63 H Blood Pressure Mean 86 Blood Pressure Source Monitor Blood Pressure Position Sitting Blood Pressure Location Right Arm Pulse Ox 98 98 Oxygen Delivery Method Room Air Room Air Weight Weight: 191 lb 9.307 oz Body Mass Index (BMI) 27.4 Physical Exam Const alert, oriented x3, no apparent distress and healthy appearing General Appearance: cooperative; Negative for combative or lethargic Orientation / Consciousness: awake Exam Limitations: no limitations HEENT Head and Scalp: normocephalic and atraumatic Eyes EOMs intact bilaterally General Eye: normal appearance of both eyes Neck full ROM General: trachea midline Resp normal respiratory effort and no use of accessory muscles Effort and Inspection: Negative for labored, stridor or audible wheezes Cardio regular rate and regular rhythm Cardio Narrative: +thrill LUE Peripheral Pulses: brachial pulses present and radial pulses present Back/Spine Cervical Spine: cervical ROM normal Extremity normal capillary refill and no clubbing, cyanosis or edema Extremity Narrative: left shoulder limited ROM Skin no rashes or lesions noted and no wounds Neuro oriented x3, CN's II-XII intact bilaterally, no focal motor deficits and no sensory deficits noted Psych thought process normal, cooperative, affect normal, speech normal and activity/motor behavior normal Results Lab / Micro Data 01/09/25 07:40 01/09/25 07:40 Labs: Laboratory Results - last 24 hr 01/09/25 07:40: WBC 6.4, RBC 3.54 L, Hgb 9.9 L, Hct 32.0 L, MCV 90.4, MCH 28.0, MCHC 30.9 L, RDW Std Deviation 56.5 H, RDW Coeff of Luciano 17.1 H, Plt Count 238, MPV 8.7, Sodium 137, Potassium 4.5, Chloride 99, Carbon Dioxide 25.2, Anion Gap 12, BUN 42 H, Creatinine 4.43 H, Estim Creat Clear Calc 15.56 L, Est GFR (MDRD) Non-Af 13 L, BUN/Creatinine Ratio 9.4 L, Glucose 103 H, Calcium 9.1 Assessment & Plan Assessment/Plan (1) ESRD (end stage renal disease) on dialysis: PLAN: -stage II basilic
[2025-01-09] MEDS: Cefazolin 2 GM in 0.9% Normal Saline (100mL Bag) 100 ML IV (10:10)
[2025-01-09] MEDS: Bupivacaine 0.25% 30 ML Vial (10:25)
[2025-01-09] MEDS: Heparin 10,000 UNITS/10 ML Vial 10000 UNITS (11:54)
--- NOTE | 2025-01-09 12:56 | EX.PCM.DISCH ---
Discharge Instructions Diet Discharge Diet: No restrictions Activity Lifting Restrictions: do not lift > 20 lbs with left arm for 3 weeks Dressing / Incision Call your doctor if your incision/area has: Sudden Increased Bleeding, Increased Pain/ Swelling, Increased Redness and Foul Smelling Discharge Call your doctor if you observe: Fever of 101 or Higher Remove Dressing in: 2 days Cleanse incision/area with: Soap & Water Follow Up Care Test Results: Test results from this visit will be discussed in further detail at your follow-up appointment, if applicable. Discharge Plan Admission Attending Provider: Hugo Otto Primary Care Provider: Joseluis Bates Instructions Print Language: Citizen Of [place] Discharge Orders/Prescriptions Prescriptions: New oxycodone 5 mg tablet 5 mg PO Q8H PRN (Reason: pain) 3 Days Qty: 9 0RF Continued Renal Caps 1 mg capsule 1 cap PO QHS furosemide [Lasix] 20 mg tablet 20 mg PO DAILY sevelamer carbonate 800 mg tablet 800 mg PO TID metoprolol succinate 25 mg tablet extended release 24 hr 25 mg PO QHS isosorbide mononitrate 60 mg tablet extended release 24 hr 60 mg PO DAILY docusate sodium [Colace] 100 mg capsule 100 mg PO BID insulin lispro [Humalog KwikPen Insulin] 100 unit/mL insulin pen 1 unit subcut BID Rx Instructions: AT PENITENTIARY oxycodone-acetaminophen [Percocet] 5-325 mg tablet 1 tab PO Q6H PRN (Reason: pain) Rx Instructions: SACRAL/PELVIS FX allopurinol 100 mg tablet 100 mg PO DAILY pantoprazole [Protonix] 40 mg tablet,delayed release (DR/EC) 40 mg PO DAILY hydralazine 50 mg tablet 75 mg PO TID famotidine 20 mg tablet 20 mg PO QHS Held Eliquis 5 mg tablet 5 mg PO BID Hold Instructions: Resume on 01/11/25. Referrals / Follow Up: Joseluis Bates MD [Primary Care Provider] - Disposition Disposition (needs filled in before D/C Order can be placed): Home, Self Care
--- NOTE | 2025-01-09 13:23 | PCM.POST.ANE ---
Anesthesia: Postop Eval I Current Vital Signs Temperature: 98.5 F Pulse Rate: 75 Blood Pressure: 140/67 Respiratory Rate: 18 Pulse Ox: 97 Oxygen Delivery Method: Room Air Assessment Airway patent: Yes Spontaneous unlabored respirations: Yes Mental status: Awake and Calm nausea: No Vomiting: No Anesthesia Complication: No Fluid Hydration Crystalloid volume administer (ml): 400 Total IV fluid infused: 400 Progress Note Anesthesia document: Postop Eval 1 completed: Yes
[2025-01-09 15:20] LABS: Bedside Glucose 138 mg/dL (74-106)
[2025-01-09] MEDS: oxyCODONE 5 MG Tablet PO (15:21)
--- NOTE | 2025-01-09 15:28 | SUR.PHASEII ---
attempted to call report to [facility]. No answer, left voicemail for them to call back.
--- NOTE | 2025-01-09 16:39 | POSTOPAN2_ITS ---
Anesthesia Postop Eval I Sum Postop Eval Completion status Anesthesia document: Postop Eval 1 completed: Yes Anesthesia Postop Eval I Summary Anesthesia Postop Eval I Summary: Anesthesia Postop Eval I: Assessment Summary Airway patent Yes 01/09/25 13:34 [email or web address] [email or web address] Spontaneous unlabored Yes 01/09/25 13:34 [email or web address] [email or web address] [email or web address] respirations Mental status Awake,Calm 01/09/25 13:34 [email or web address] nausea No 01/09/25 13:34 [email or web address] [email or web address] [email or web address] Vomiting No 01/09/25 13:34 [email or web address] [email or web address] Anesthesia Postop Eval I: Fluid Summary Crystalloid volume administer 400 01/09/25 13:34 [email or web address] [email or web address] (ml) Colloids volume administered ( ml) Blood Product volume administered (ml) Total IV fluid infused 400 01/09/25 13:34 [email or web address] [email or web address] Anesthesia Postop Eval I: Summary Notes Anesthesia Complication No 01/09/25 13:34 [email or web address] Anesthesia Complication Comment: Post-operative progress note Anesthesia: Postop Eval II Evaluation Mental status: Awake and Calm Pain Level: 0 nausea: No Vomiting: No Complications Anesthesia Complication: No
--- NOTE | 2025-01-09 16:39 | PCM.POSTANE2 ---
Anesthesia Postop Eval I Sum Postop Eval Completion status Anesthesia document: Postop Eval 1 completed: Yes Anesthesia Postop Eval I Summary Anesthesia Postop Eval I Summary: Anesthesia Postop Eval I: Assessment Summary Airway patent Yes 01/09/25 13:34 [email or web address] Spontaneous unlabored Yes 01/09/25 13:34 [email or web address] respirations Mental status Awake,Calm 01/09/25 13:34 [email or web address] nausea No 01/09/25 13:34 [email or web address] Vomiting No 01/09/25 13:34 [email or web address] Anesthesia Postop Eval I: Fluid Summary Crystalloid volume administer 400 01/09/25 13:34 [email or web address] (ml) Colloids volume administered ( ml) Blood Product volume administered (ml) Total IV fluid infused 400 01/09/25 13:34 [email or web address] Anesthesia Postop Eval I: Summary Notes Anesthesia Complication No 01/09/25 13:34 [email or web address] Anesthesia Complication Comment: Post-operative progress note Anesthesia: Postop Eval II Evaluation Mental status: Awake and Calm Pain Level: 0 nausea: No Vomiting: No Complications Anesthesia Complication: No
--- NOTE | 2025-01-09 17:37 | PCM.OPRPT ---
Operative Report (Standard) Operative Information Date of Procedure: 01/09/25 Pre-Operative Diagnosis: End-stage renal disease with prior left stage I basilic fistula creation Post-Operative Diagnosis: Same Surgery/Procedure Performed: Stage II basilic transposition laundry supervisor: Yes Bowling Alley Manager: Karen Mack Tasks completed by certified surgical tech/first assistant: Opening, Closing, Opening & closing, Hemostasis: Tie, Hemostasis: Electrocautery and Retracting Type of Anesthesia: General RN Documented Start/Stop Times: Operation Date: 01/09/25 09:00 Case Time Into Pre-Op 01/09/25 07:14 Out of Pre-Op 01/09/25 09:52 Anesthesia Start 01/09/25 09:56 Into Room 01/09/25 09:56 Procedure Start 01/09/25 10:25 Procedure End 01/09/25 13:25 Anesthesia End 01/09/25 13:28 Out of Room 01/09/25 13:28 Into Recovery 01/09/25 13:31 Out of Recovery 01/09/25 14:59 Into Phase II Recovery 01/09/25 15:00 Out of Phase II 01/09/25 15:57 Procedure Start Time: 10:25 Procedure Stop Time: 13:25 Select all DRAINS/GRAFTS/IMPLANTS that apply: Graft Graft details: 6 mm PTFE, standard wall Estimated Blood Loss: 100 Specimen collected: No Description of surgery: HPI: Patient is a 74-year-old male with previous left stage I basilic creation which has matured in satisfactory fashion. He presents now for transposition. He has a significantly limited range of motion with his left shoulder so in order to gain adequate length of fistula to put it in a usable position and interposition graft with PTFE as planned. Description of procedure: Upon obtaining form consent and verification correct patient procedure site the patient was taken to the operating was placed under general anesthesia. He was then positioned prepped and draped in usual sterile fashion a time was performed. The basilic vein fistula was evaluated ultrasound found to be of satisfactory caliber throughout and had a high confluence with the brachial vein at the axilla. Incision was then made in longitudinal orientation over the fistula from the antecubital crease to just distal to the axilla. Bovie electrocautery was used to dissect through the subcutaneous tissue and self-retaining retractors put in position. Dissection was then carried down the fascia which was incised and self-retaining retractors moved deeper into the wound. Sharp dissection was then used to dissect free the the basilic vein throughout the length of the upper arm with care taken to identify and protect adjacent nerve and artery structures. Sidebranches were ligated with silk ties and divided and the vein marked to maintain orientation. Once the entirety of the vein was dissected free circumferentially a [place] tunneler was used to tunnel through the subcutaneous tissue from the proximal forearm to the distal forearm overlying the bicep muscle. The patient was then heparinized allowed to circulate for 3 minutes. Atraumatic clamps were then applied first to the arterial end of the fistula followed by at the venous outflow and approaching the axilla. The vein was then divided approximately 3 cm before the distal clamp and extracted from behind the nerve plexus of the upper arm. A 6 mm PTFE graft was then anastomosed to the cut end of the fistula and ending technique with 6-0 Prolene in running fashion. After completing the suture line clamps were released and satisfactory stasis was noted at the suture line. There was brisk flow through the fistula and graft that appeared adequate for dialysis use. The proximal fistula was then again clamped and the graft secured to the tunneler and pulled through the subcutaneous space to the upper arm. The graft was then cut the length and anastomosis performed to the outflow vein using 6-0 Prolene in a running fashion. Prior to completing suture line vessels are backbled and after completing the suture line clamps removed and satisfactory stasis was noted. There is a palpable thrill throughout the fistula and into the outflow vein. Heparin was then reversed with protamine and the incision inspected for hemostasis. The incision was then closed with 2-0 Vicryl, 3-0 Vicryl, 4 Monocryl and Prineo for the skin. The patient was then awakened from anesthesia taken the recovery room with anticipated discharge to home. Surgical Findings: See above Complications Complications: No
== END 2025-01-09 15:57 | disposition home or self-care (01) ==
LOC: SDC 07:07 → AC 07:08
PROVIDERS: PCP Family Medicine; Referring Provider Surgery Trauma Surgery; Visit Provider Surgery Trauma Surgery
PROC: (CPT 36819; principal; 2025-01-09 08:45)
DX: Z45.2 Encounter for adjustment and management of vascular access device (principal); I13.2 Hypertensive heart and chronic kidney disease with heart failure and with stage 5 chronic kidney disease, or end stage renal disease; N18.6 End stage renal disease; I50.9 Heart failure, unspecified; I48.91 Unspecified atrial fibrillation; Z79.4 Long term (current) use of insulin; E11.22 Type 2 diabetes mellitus with diabetic chronic kidney disease; Z99.2 Dependence on renal dialysis; Z79.01 Long term (current) use of anticoagulants; Z79.899 Other long term (current) drug therapy; Z87.891 Personal history of nicotine dependence
CPT/HCPCS: 36819; 01844; 80048; 82962; 85027; A4648; C1768; A4216; J2405

== ENCOUNTER → 2025-02-06 | Outpatient (CLI) | payer MEDICARE, SELFPAY ==
--- NOTE | 2025-02-06 12:54 | AVDS_ITS ---
Reason For Study Reason For Study: S/P left basilic AVR transposition, interposition PTFE LEFT Inflow, 260.6/129.6 cm/sec. Inflow, 2127 ml/min. Prox anastamosis, 465.3/279.5 cm/sec. Prox anastamosis,990.5 ml/min. Prox graft, 268.3/135.9 cm/sec. Prox graft, 4995 ml/min. Mid graft, 52.3/34.8 cm/sec. Mid graft, 1292 ml/min. Distal graft, 55.6/38.1 cm/sec. Distal graft, 1385 ml/min. Distal graft, PTFE prox, 270.5/163.8 cm/sec. Distal graft, PTFE prox, 1785 ml/min. Distal graft, PTFE mid, 302.6/179.8 cm/sec. Distal graft, PTFE mid, 1682 ml/min. Distal graft, PTFE distal, 276.6/160.4 cm/sec. Distal graft, PTFE disal, 1369 ml/min. Outflow, 101.6/54.2 cm/sec. Outflow, 4563 ml/min. VL/AV Fistula/Dialysis Graft Scan Interpretation Summary Patent left basilic fistula/graft with normal velocities, no evidence of stenos is, and adequate flow volumes. Ordering Physician: Lilia Martin Referring Physician: Joseluis Bates Performed By: Ebonie Montalvo RVT
== END | disposition home or self-care (01) ==
LOC: CVS 12:53
PROVIDERS: PCP Family Medicine; Referring Provider Physician Assistant; Visit Provider Physician Assistant
DX: I77.0 Arteriovenous fistula, acquired (principal); N18.6 End stage renal disease
CPT/HCPCS: 93990

== ENCOUNTER 2025-03-08 06:52 | Day surgery (SDC) | payer MEDICARE, SELFPAY ==
[2025-03-07 08:04] VITALS: BMI 27.6
--- OUTSIDE RECORDS SUMMARY | 2025-03-08 07:03 | XMS RPT_ITS | CCD ---
Author Organization [facility] CliniSyor Care Team Providers Care Online Merchant Name Role Phone DEM.DA Unavailable Unavailable MELANIE ROSS PA-C Unavailable Unavailabl e BEHZAD([facility]), MLEANIE Unavailable Unavailab le BEHZAD([facility]), MELANIE Unavailable Unavailab le BEHZAD([facility]), MELANIE Unavailable Unavailab le BEHZAD([facility]), MELANIE Unavailable Unavailab le BEHZAD([facility]), MELANIE Unavailable Unavailab le Unavailable Primary Care Provider Unavaildavid acuña Unavailable Primary Care Provider UnavailKamron Tran Primary Care Provider [phone] Kamron Lepe Primary Care Provider Kamron Lepe Primary Care Provider [phone] Kamron Lepe Primary Care Provider KAMRON LEPE Attending Unavailable KAMRON LEPE Attending Unavailable KAMRON LEPE Attending Unavailable KAMRON LEPE Attending Unavailable ELIOT MELGAR Consulting Unavailable COLT TRUJILLOUL H Admitting Unavailable TRINITY TRUJILLO H Attending Unavailable HYUN PEACOCK M.D. Admitting Unavailable CHINO CRUZ M.D. Attending Unavailable APOLINAR BOLIVAR Consulting Unavailable MAURISIO BROWN Consulting Unavailable SURAJ RIVERA M.D. Admitting Unavaila CHINO Simental M.D. Attending Unavailable KAMRON LEPE Attending Unavailable DANIELA DUMAS Attending Unavailable JULIANNE DUMAS M.D. Attending Unavailable LY MEYER Attending Unavailable DANIELA DUMAS Attending Unavailable JULIANNE DUMAS M.D. Attending Unavailable DANIELA DUMAS Attending Unavailable KAMRON LEPE Attending Unavailable Kamron Lepe MD Primary Care Provider SHERLEY MCGUIRE, DR KAMRON Lomeli Primary Care Physician JAZMÍN, JUSTICE Admitting Unavailable JAZMÍN, JUSTICE Attending Unavailable SHERLEY KAMRON KAITY [facility] Care Unavaila ble ANDERSON, ALYSHA A Consulting Unavailable JOSH, UMAR Admitting Unavailable BELEN MORENO Attending Unavailable MEG LOBO Referring Unavailable SHERLEY KAMRON KA[facility] Unavaila ble Jericho DPM, Yoli Hammonds Unavailable Sherley MCGUIRE, Kamron Guerrero Primary Care Provider SHERLEY MCGUIRE, DR KAMRON Lomeli Primary Care Unavaila ble ROZ DE DO Attending Unavailable SHAHRIAR LEWIS, ROZ Admitting Unavailable SHAHRIAR LEWIS, ROZ Attending Unavailable SHERLEY MCGUIRE, DR KAMRON Lomeli Primary Care Unavaila ble ONESIMO LEWIS, MEG Consulting Unavailable ELMER PIPELINER-DRONE PILOT, LAWRENCE Howard Consulting Unavaila dorita VIRGEN MD, DR HILLMAN Consulting Unavailab yesenia AWAN MD, DR ESPINOZA Consulting Unavailable SHERLEY MCGUIRE, DR KAMRON Lomeli Primary Care Unavailmicaela BUSTILLOS MD, DR AIKEN Attending Unavailable DOV MCGUIRE, DR WHITE Attending Un available SHERLEY MCGUIRE, DR KAMRON Lomeli Primary [facility] Unavaila ble HUGO ALVARADO Referring Unavailable SHERLEY KAMRON KA[facility] Unavaila GILMER Fam Attending Unavailable SHERLEY KAMRON [facility] Unavaila ble YOLI ECHAVARRIA Attending Unavailable SHERLEY KAMRON [facility] Unavaila ble YOLI ECHAVARRIA Attending Unavailable SHERLEY, KAMRON KA[facility] Unavaila ble YOLI ECHAVARRIA Attending Unavailable SHERLEY [facility] Unavaila ble GILMER OLIVIA Attending Unavailable SHERLEY KAMRON [facility] Unavaila FEDERICO Adamson Attending Unavailable SHERLEY KAMRON [facility] Unavaila GILMER Fam Attending Unavailable SHERLEY, KAMRON KAITY [facility] Unavaila ble SHERLEY, [facility] Unavaila ble ROBERT UNDERWOOD Admitting Unavailable BROOK ESCAMILLA Attending Unavailable ARISTIDES JONES Consulting Unavailable SHERLEY [facility] Unavaila ROBERT Laurent Admitting Unavailable ARIANE CARUSO Attending Unavailab Conor Ramos Consulting Unavailable CORWIN, GILMER CHANG Attending Unavailable SHERLEY, KAMRON KAITY Primary Care Unavaila ble OLIVIA, GILMER CHANG Attending Unavailable SHERLEY, KAMRON KAITY [facility] Care Unavaila ble NGOZI VIGIL Attending Unavailable SHERLEY, KAMRON GUERRERO [facility] Care Unavaila ble SHERLEY, KAMRON KAITY Primary Care Unavaila ble FEDERICO PARK Attending Unavailable SHERLEY, KAMRON GUERRERO Primary Care Unavaila ble SHERLEY, KAMRON KAITY Primary Care Unavaila ble ROBERT UNDERWOOD Admitting Unavailable ROBERT UNDERWOOD Attending Unavailable MEG DOVE Consulting Unavailable ZARA GALVEZ Admitting Unavailable ZARA GALVEZ Attending Unavailable ZARA GALVEZ Primary Care Unavailable BUCKTOJOHNSINCINDY Hui MD Attending Unava ilable BUCKTOWARSINLaura, CINDY MCGUIRE Primary Care Unava ilable BUCKTOWARSINLaura, CINDY MCGUIRE Admitting Unava ilable [place] Dr. Kamron MCGUIRE Primary Care Provider [phone] Dr. Kamron Lepe MD Referring Provider Veronica SANDOVAL, Lilia Attending Provider [phone] Clarita MCGUIRE, Dr. Arias Attending Provider [phone] Clarita MCGUIRE, Dr. Arias Referring Provider [phone] Clarita MCGUIRE, Dr. Arias Other Provider [phone] Sherley MCGUIRE, Dr. Huggins Primary Care Provider [phone] Sherley MCGUIRE, Dr. Huggins Referring Provider Veronica PA, Lilia Attending Provider [phone] Veronica PA, Lilia Referring Provider [phone] Lliia Martin Attending Unavailable SherleyKamron Referring Unavailable Sherley, [facility] Primary Care Unavailable Sherley, [facility] Care Unavailable [place] Bhavnish Referring Unavaila ble Hugo Alvarado Attending Unavailable Sherley, [facility] Primary Care Unavailable Hugo Alvarado Referring Unavailable Hugo Alvarado Consulting Unavailable Hugo Alvarado Attending Unavailable Lilia Martin Attending Unavailable Carville, Kamron Referring Unavailable Carville, Kamron Primary Care Unavailable Carville, Kamron Primary Care Unavailable Clarita, Hugo Attending Unavailable Martin, Lilia Attending Unavailable Martin, Lilia Referring Unavailable Carville, Kamron Primary Care Unavailable Carville, Kamron Primary Care Unavailable [place], Bhavnish Attending Unavaila ble [place], Bhavnish Referring Unavaila ble Martin, Lilia Referring Unavailable Carville, Kamron Primary Care Unavailable Clarita, Hugo Attending Unavailable Center, [facility] Referring Unavaila ble Carville, Kamron Primary Care Unavailable Clarita, Hugo Attending Unavailable Sherley, Kamron Primary Care Unavailable Clarita, Hugo Referring Unavailable Clarita, Hugo Consulting Unavailable Clarita, Hugo Attending Unavailable Carville, Kamron Referring Unavailable Sherley, Kamron Primary Care Unavailable Clarita, Hugo Attending Unavailable Sherley, Kamron Primary Care Unavailable Clarita, Hugo Attending Unavailable Clarita, Hugo Referring Unavailable Carville, Kamron Primary Care Unavailable Clarita, Hugo Referring Unavailable Clarita, Hugo Attending Unavailable Allergies Allergy Classification Reported Allergen(s) Allergy Type Date of Onset Reaction(s) Facility Opioid Agonists (1 source) Codeine Drug Allergy 6 Unknown [facility] (20 sources) Codeine; Translations: [CODEINE] Drug Allergy 6 Unknown, Unknown (qualifier value) [facility] (1 source) Codeine Drug Allergy [facility] (1 source) Codeine Drug Allergy 5 [facility] Medications Current Medications Medication Drug Class(es) Dates Sig (Normalized) Sig (Original) acetaminophen 650 mg oral tablet (20 sources) Start: 09-03-2023 acetaminophen Dose : 650 mg = 2 tab(s), Oral, q6hr, PRN as needed for fever, 0 Refill(s) Start Date: 09/03/23 Status: Ordered Repeat number: 1 End: 10-05-2024 take 1 tablet by mouth every eight hours as needed acetaminophen 650 mg CR tablet Take 650 mg by mouth every 8 hours as needed for pain. 10/05/2024 Discontinued (Other) take 1 tablet by niel th every eight hours as needed acetaminophen (TYLENOL) 325 mg tablet Take 325 mg by mouth every 8 hours as needed for pain. 0 Suspended Comment on above: Take 325 mg by mouth every 8 hours as needed for pain. Take 650 mg by mouth every 8 hours as needed for pain. acetaminophen 325 mg / oxyCODONE hydrochloride 5 mg oral tablet (2 sources) Opioid Agonist Start: 01-06-20 Oxycodone-Acetamino phen (Percocet) 5-325 mg tablet Active 1 {tbl} PO EVERY 6 HOURS as needed for pain January 05, 2025 12:00am SACRAL/PELVIS FX albuterol 0.833 mg/ml / ipratropium bromide 0.167 mg/ml inhalation solution (17 sources) Anticholinergic, beta2-Adrenergic Agonist take 3 mL by inhalation every four hours as needed ipratropium-albuter ol (DUONEB) 0.5 mg-3 mg(2.5 mg base)/3 mL nebu Inhale 3 mL as instructed every 4 hours as needed for wheezing/shortness of breath. Active allopurinol 100 mg oral tablet (20 sources) Xanthine Oxidase Inhibitor Start: 08-29-20 take 1 tablet by mouth once daily Allopurinol 100 mg tablet Active 100 mg PO DAILY August 29, 2024 1:00am apixaban 5 mg oral tablet (20 sources) Factor Xa Inhibitor Start: 03-31-20 End: 03-26-20 take 1 tablet by mouth twice daily Apixaban (Eliquis) 5 mg tablet Active 5 mg PO TWICE A DAY August 29, 2024 1:00am On Hold: Resume on 01/11/25. Start: 06-29-2023 End: 06-23-2024 Eliquis 2.5 mg oral tablet D ose : 2.5 mg = 1 tab(s), Oral, BID, # 60 tab(s), 0 Refill(s), Pharmacy: [facility], 177, cm, 08/26/23 16:21:00 EST, Height, 129.6, kg, 09/02/23 12:21:00 EST, Dosing Weight Start Date: 09/03/23 Status: Ordered apixaban (ELIQUI S) 5 mg tab(s) Take by mouth twice daily. 0 Active Comment on above: Take by mouth twice daily. Take 2.5 mg by mouth twice daily. Take 1 tablet by neil two times a day. ascorbic acid 500 mg oral tablet (8 sources) Vitamin C take 1 tablet by mouth once daily ascorbic acid, vitamin C, (VITAMIN C) 500 mg tablet Take 500 mg by mouth once daily. 0 Active Comment on above: Take 500 mg by mouth once daily. atorvastatin 40 mg oral tablet (1 source) HMG-CoA Reductase Inhibitor Start: 3 atorvastatin 40 mg oral tablet Dose : 40 mg = 1 tab(s), Oral, qHS, # 30 tab(s), 0 Refill(s), Pharmacy: [facility], 177, cm, 08/26/23 16:21:00 EST, Height, kg, 09/02/23 12:21:00 EST, Dosing Weight Start Date: 09/03/23 Status: Ordered B Complex With C 20-Folic Acid (Renal Caps) 1 mg capsule (2 sources) Start: 4 B Complex With C 20-Folic Acid (Renal Caps) 1 mg capsule Active 1 NMA PO AT BEDTIME August 21, 2024 1:00am b complex, c, folic acid 1 mg renal vitamins (RENAL CAPS) 1 mg capsule (11 sources) take 1 capsule by mouth once daily b complex, c, folic acid 1 mg renal vitamins (RENAL CAPS) 1 mg capsule Take 1 capsule by mouth once daily. Active take 1 capsule by mouth once gaston ly b complex, c, folic acid 1 mg renal vitamins (RENAL CAPS) 1 mg capsule Take 1 capsule by mouth once daily. 0 Active betamethasone 0.0005 mg/mg topical ointment (1 source) Corticosteroid Start: 09-03-2023 End: 09-10-2023 betamethasone dipropionate 0.05% topical ointment Apply 1 keenan, Topical, Daily, X 7 day(s), # 15 gram(s), 0 Refill(s), Pharmacy: [facility], Ointment, 177, cm, 08/26/23 16:21:00 EST, Height, 129.6, kg, 09/02/23 12:21:00 EST, Dosing Weight Start Date: 09/03/23 Stop Date: 09/10/23 Status: Ordered bumetanide 1 mg oral tablet (9 sources) Loop Diuretic Start: 09-03-2023 bumetanide 1 m g oral tablet Dose : 2 mg = 2 tab(s), Oral, BID, # 120 tab(s), 0 Refill(s), Pharmacy: [facility], 177, cm, 08/26/23 16:21:00 EST, Height, kg, 09/02/23 12:21:00 EST, Dosing Weight Start Date: 09/03/23 Status: Ordered take 1 tablet by mouth twice gaston ly bumetanide (BUMEX) 1 mg tablet Take 1 mg by mouth twice daily. 0 Active Comment on above: Take 1 mg by mouth t wice daily. calcitriol 0.31376 mg oral capsule (20 sources) Vitamin D3 Analog Start: 09-03-2023 calcitriol 0.25 mcg oral capsule Dose : 0.25 mcg = 1 cap(s), Oral, Daily, # 30 cap(s), 0 Refill(s), Pharmacy: [facility], 177, cm, 08/26/23 16:21:00 EST, Height, kg, 09/02/23 12:21:00 EST, Dosing Weight Start Date: 09/03/23 Status: Ordered Quantity: 30.0 Unit: cap(s) Repeat number: 1 Start: 07-23-2023 take 1 tablet by mouth once ca lcitriol (ROCALTROL) 0.25 mcg capsule Take 1 tablet by mouth every afternoon. 07/23/2023 Active Comment on above: Take 1 tablet by neil every afternoon. carvedilol 12.5 mg oral tablet (1 source) alpha-Adrenergic Taylor, beta-Adrenergic Taylor Start: 09-03-20 Coreg 12.5 mg oral tablet Dose : 12.5 mg = 1 tab(s), Oral, BIDM, # 60 tab(s), 0 Refill(s), Pharmacy: [facility], 177, cm, 08/26/23 16:21:00 EST, Height, kg, 09/02/23 12:21:00 EST, Dosing Weight Start Date: 09/03/23 Status: Ordered cholecalciferol 0.125 mg oral tablet (20 sources) Vitamin D take 1 tablet by mouth once daily cholecalciferol (VITAMIN D-3) 5,000 unit tab Take 5,000 Units by mouth once daily. Active Comment on above: Take 5,000 Units by mouth once daily. cyclobenzaprine hydrochloride 5 mg oral tablet (20 sources) Muscle Relaxant Start: 11-25-19 cyclobenzaprine 5 mg oral tablet Dose : 5 mg = 1 tab(s), Oral, TID, prn, 0 Refill(s) Start Date: 11/25/23 Status: Ordered Repeat number: 1 Comment on above: Take 5 mg by mouth t hree times a day as needed for muscle spasm. docusate sodium 100 mg oral capsule (5 sources) Start: 01-06-20 take 1 capsule by mouth twice daily Docusate Sodium (Colace) 100 mg capsule Active 100 mg PO TWICE A DAY January 05, 2025 12:00am Start: 09-03-2023 Colace 100 mg oral capsule Dose : 100 mg = 1 cap(s), Oral, BID, PRN Constipation, 0 Refill(s) Start Date: 09/03/23 Status: Ordered Repeat number: 1 doxycycline hyclate 100 mg oral tablet (8 sources) Tetracycline-class Drug take 100 mg by mouth twice daily DOXYCYCLINE HYCLATE ORAL Take 100 mg by mouth two times a day. CELLULITITS 0 Active Comment on above: Take 100 mg by mouth two times a day. CELLULITITS empagliflozin 10 mg oral tablet (16 sources) Sodium-Glucose Cotransporter 2 Inhibitor Start: 024 End: 025 empagliflozin (JARDIANCE) 10 mg tablet Indications: Chronic heart failure with preserved ejection fraction (HFpEF) ([facility]) , Stage 4 chronic kidney disease ([facility]) , Type 2 diabetes mellitus with stage 4 chronic kidney disease, with long-term current use of insulin ([facility]) , NYHA class 3 heart failure with preserved ejection fraction ([facility]) Take 1 tablet by mouth daily with breakfast. 90 tablet 3 03/31/2024 03/26/2025 Active take 1 tablet by neil th once daily at breakfast empagliflozin (JARDIANCE) 10 mg tablet T kishor 10 mg by mouth daily with breakfast. 0 Active Comment on above: Take 10 mg by mouth daily with breakfast. famotidine 40 mg oral tablet (20 sources) Histamine-2 Receptor Antagonist Start: 11-02-2024 famotidine 40 mg oral tablet Dose : 40 mg = 1 tab(s), Oral, BID, # 60 tab(s), 0 Refill(s) Start Date: 11/02/24 Status: Ordered Quantity: 60.0 Unit: tab(s) Repeat number: 1 Start: 09-12-2024 take 1 tablet by neil th at bedtime Famotidine 20 mg tablet Active 20 mg PO AT BEDTIME September 12, 2024 1:00am Start: 08-29-2024 End: 08-29-2024 take 1 tablet by mouth twice daily Famotidine 20 mg tablet Discontinued 20 mg PO TWICE A DAY August 29, 2024 1:00am August 29, 2024 12:37pm Start: 02-02-2024 take 1 tablet by neil th every twelve hours famotidine (PEPCID) 40 mg tablet Take 1 tablet by mouth every 12 hours. 02/02/2024 Active Start: 12-20-2023 End: 01-19-2024 take 1 tablet by mouth twice daily famotidine (PEPCID) 40 mg tablet Take 1 tablet by mouth two times a day. 60 tablet 0 12/20/2023 01/19/2024 Active Start: 09-03-2023 famotidine 20 mg oral tablet Dose : 20 mg = 1 tab(s), Oral, qDay, 0 Refill(s) Start Date: 09/03/23 Status: Ordered take 1 tablet by neil th twice daily famotidine (PEPCID) 20 mg tablet Take 20 mg by mouth twice daily. 0 Active Comment on above: Take 20 mg by mouth twice daily. Take 1 tablet by neil th two times a day. ferrous sulfate 325 mg delayed release oral tablet (20 sources) Start: 11-25-2023 ferrous sulfate 325 mg (65 mg elemental iron) oral delayed release tablet Dose : 325 mg = 1 tab(s), Oral, qDay, # 90 tab(s), 0 Refill(s) Start Date: 11/25/23 Status: Ordered Quantity: 90.0 Unit: tab(s) Repeat number: 1 Start: 11-02-2023 End: 03-31-2024 take 1 tablet by mouth once daily ferrous sulfate 325 mg (65 mg iron) tablet Take 1 tablet by mouth once daily. 0 11/02/2023 03/31/2024 Discontinued (Discontinued by Patient) Comment on above: Take 1 tablet by neil th once daily. furosemide 20 mg oral tablet (20 sources) Loop Diuretic Start: 08-21-2024 take 1 tablet by mouth once daily Furosemide (Lasix) 20 mg tablet Active 20 mg PO DAILY August 21, 2024 1:00am Start: 11-25-2023 End: 10-05-2024 take 1 tablet by mouth once daily furosemide (LASIX) 40 mg tablet Take 1 tablet by mouth once daily. 30 tablet 12/20/2023 10/05/2024 Discontinued (Other) Start: 11-11-2023 take 0.5 tablet by m outh once daily furosemide (LASIX) 80 mg tablet Take 0.5 tablets by mouth once daily. Patient should start on November 11, 2023. 0 11/11/2023 Active Comment on above: Take 0.5 tablets by mouth once daily. Patient should start on November 11, 2023. Take 1 tablet by neil th once daily. gabapentin 300 mg oral capsule (2 sources) Anti-epileptic Agent Start: 09-03-2023 gabapentin 100 mg oral capsule Dose : 100 mg = 1 cap(s), Oral, Daily, # 30 cap(s), 0 Refill(s), Pharmacy: [facility], [facility] HTN (hypertension), 177, cm, 08/26/23 16:21:00 EST, Height, 129.6, kg, 09/02/23 12:21:00 EST, Dosing Weight Start Date: 09/03/23 Status: Ordered Start: 09-03-2023 gabapentin 300 mg oral capsule Dose : 300 mg = 1 cap(s), Oral, Daily, # 30 cap(s), 0 Refill(s), Pharmacy: [facility], [facility] HTN (hypertension), 177, cm, 08/26/23 16:21:00 EST, Height, 129.6, kg, 09/02/23 12:21:00 EST, Dosing Weight Start Date: 09/03/23 Status: Ordered glucagon (rdna) 1 mg injection (20 sources) Antihypoglycemic Agent glucagon 1 mg/mL injection Inject 1 mg subcutaneously as needed. Active GLUCAGON SUBCUTA NEOUS Inject 1 mg subcutaneously as needed (hypoglycemia). 0 Active Comment on above: Inject 1 mg subcutan eously as needed (hypoglycemia). Inject 1 mg subcutan eously as needed. hydrALAZINE hydrochloride 50 mg oral tablet (20 sources) Arteriolar Vasodilator Start: 09-12-2024 Hydralazine 50 mg tablet Active 75 mg PO THREE TIMES A DAY September 12, 2024 1:00am Start: 03-11-2024 End: 04-10-2024 take 1.5 tablets by mouth every eight hours hydrALAZINE (APRESOLINE) 50 mg tablet Take 1.5 tablets by mouth every 8 hours. 135 tablet 03/11/2024 Active Start: 11-10-2023 End: 03-31-2024 take 1 tablet by mouth every eight hours hydrALAZINE (APRESOLINE) 25 mg tablet Take 1 tablet by mouth every 8 hours. 0 11/10/2023 Active Start: 11-03-2023 take 2 tablets by mo uth three times daily hydrALAZINE (APRESOLINE) 10 mg tablet Take 2 tablets by mouth three times a day. 0 11/03/2023 Suspended Start: 09-04-2023 End: 09-04-2023 hydrALAZINE Start: 09/04/23 9:00:00 AM EST, Dose = 50 mg, = 1 tab(s), Oral, 0, 09/01/23 16:00:00 EST Start Date: 09/04/23 Stop Date: 09/04/23 Status: Completed Start: 09-03-2023 End: 09-03-2023 hydrALAZINE Start: 09/03/23 9:00:00 PM EST, Dose = 50 mg, = 1 tab(s), Oral, 0, 09/01/23 16:00:00 EST Start Date: 09/03/23 Stop Date: 09/03/23 Status: Completed Start: 09-03-2023 End: 01-19-2024 hydrALAZINE 50 mg oral table t Dose : 50 mg = 1 tab(s), Oral, TID, # 90 tab(s), 0 Refill(s), Pharmacy: [facility], 177, cm, 08/26/23 16:21:00 EST, Height, kg, 09/02/23 12:21:00 EST, Dosing Weight Start Date: 09/03/23 Status: Ordered Quantity: 90.0 Unit: tab(s) Repeat number: 1 Start: 06-29-2023 End: 06-23-2024 hydrALAZINE 50 mg oral table t Dose : 50 mg = 1 tab(s), Oral, TID, # 90 tab(s), 0 Refill(s), Pharmacy: [facility], 177, cm, 08/26/23 16:21:00 EST, Height, kg, 09/02/23 12:21:00 EST, Dosing Weight Start Date: 09/03/23 Status: Ordered Comment on above: Take 50 mg by mouth three times daily. Take 1 tablet by neil th three times a day. Take 2 tablets by mo uth three times a day. Take 1 tablet by neil th every 8 hours. 3 ml insulin glargine 100 unt/ml pen injector (20 sources) Insulin Analog Start: 09-03-2023 inject 1 dose by subcutaneous injection once daily Lantus Solostar Pen 100 units/mL 3 mL Pen Dose : 15 unit(s) =, Subcutaneous, qDay, # 10 mL, 0 Refill(s), Pharmacy: [facility], 177, cm, 08/26/23 16:21:00 EST, Height, kg, 09/02/23 12:21:00 EST, Dosing Weight Start Date: 09/03/23 Status: Ordered Start: 02-03-2016 insulin glargi ne (LANTUS SOLOSTAR, BASAGLAR KWIKPEN) 100 unit/mL (3 mL) Inject 15 Units subcutaneously every morning. 0 02/03/2016 Active Start: 02-03-2016 insulin glargi ne (LANTUS SOLOSTAR, BASAGLAR KWIKPEN) 100 unit/mL (3 mL) Inject 10 Units subcutaneously. 0 02/03/2016 Active Start: 02-03-2016 insulin glargi ne (LANTUS SOLOSTAR, BASAGLAR KWIKPEN) 100 unit/mL (3 mL) Inject 10 Units subcutaneously. 0 02/03/2016 Active Comment on above: Inject 10 Units subc utaneously. Inject 15 Units subc utaneously every morning. insulin glargine in syringe 1 mL (LANTUS SOLOSTAR, BASAGLAR KWIKPEN) (13 sources) inject 4 [IU] by subcutaneous injection once daily at bedtime insulin glargine in syringe 1 mL (LANTUS SOLOSTAR, BASAGLAR KWIKPEN) Inject 4 Units subcutaneously daily at bedtime. 0 Active inject 4 [IU] by sub cutaneous injection once daily at bedtime insulin glargine in syringe 1 mL (LANTUS SOLOSTAR, BASAGLAR KWIKPEN) Inject 4 Units subcutaneously daily at bedtime. 0 Suspended Comment on above: Inject 4 Units subcu taneously daily at bedtime. 3 ml insulin lispro 100 unt/ml pen injector (4 sources) Insulin Analog Start: 01-05-2025 Insulin Lispro (Humalog Kwikpen Insulin) 100 unit/mL insulin pen Active 1 U SC TWICE A DAY January 05, 2025 12:00am AT JAIL Start: 09-03-2023 HumaLOG KwikPe n 100 units/mL injectable PEN Dose : 5 unit(s) =, Subcutaneous, BIDAC, # 7.5 mL, 0 Refill(s), Pharmacy: [facility], 177, cm, 08/26/23 16:21:00 EST, Height, kg, 09/02/23 12:21:00 EST, Dosing Weight Start Date: 09/03/23 Status: Ordered insulin lispro (HUMALOG KWIKPEN) 100 unit/mL pen (20 sources) inject 1 [IU] by subcutaneous injection twice daily insulin lispro (HUMALOG KWIKPEN) 100 unit/mL pen Inject 1 Units subcutaneously two times a day. Sliding scale: BS 151-200= 1 UNITS BS 201-250= 2 UNITS BS 251-300= 3 UNITS BS 301-350= 4 UNITS BS 351-999= 5 UNITS Active inject 1 [IU] by sub cutaneous injection twice daily insulin lispro (HUMALOG KWIKPEN) 100 unit/mL pen Inject 1 Units subcutaneously two times a day. Sliding scale: BS 151-200= 1 UNITS BS 201-250= 2 UNITS BS 251-300= 3 UNITS BS 301-350= 4 UNITS BS 351-999= 5 UNITS 0 Active insulin lispro ( HUMALOG KWIKPEN) 100 unit/mL pen Inject 1 Units subcutaneously as directed. Sliding scale 0 Suspended Comment on above: Inject 1 Units subcu taneously as directed. Sliding scale Inject 1 Units subcu taneously two times a day. Sliding scale: BS 151-200= 1 UNITS BS 201-250= 2 UNITS BS 251-300= 3 UNITS BS 301-350= 4 UNITS BS 351-999= 5 UNITS 24 hr isosorbide mononitrate 60 mg extended release oral tablet (20 sources) Nitrate Vasodilator Start: 5 End: 6 take 1 tablet by mouth once daily, then take 1 tablet by mouth every twenty-four hours Isosorbide Mononitrate 60 mg tablet extended release 24 hr Active 60 mg PO DAILY November 20, 2024 12:00am Start: 03-11-2024 End: 11-20-2024 Isosorbide Mononitrate 30 mg tablet extended release 24 hr Discontinued 60 mg PO DAILY August 29, 2024 1:00am November 20, 2024 11:12am Start: 12-20-2023 End: 01-19-2024 take 1 tablet by mouth once daily isosorbide mononitrate ER (IMDUR) 30 mg 24 hr tablet Take 1 tablet by mouth once daily. 0 12/20/2023 Active Start: 11-11-2023 take 1 tablet by neil th once daily isosorbide mononitrate ER (IMDUR) 30 mg 24 hr tablet Take 1 tablet by mouth once daily. 0 11/11/2023 Active Start: 09-03-2023 isosorbide mon onitrate 30 mg oral tablet, extended release Dose : 30 mg = 1 tab(s), Oral, qDayAC, # 30 tab(s), 0 Refill(s), Pharmacy: [facility], 177, cm, 08/26/23 16:21:00 EST, Height, kg, 09/02/23 12:21:00 EST, Dosing Weight Start Date: 09/03/23 Status: Ordered Quantity: 30.0 Unit: tab(s) Repeat number: 1 Comment on above: Take 1 tablet by neil th once daily. Lactate (7 sources) Start: 09-03-2023 ammonium lacta te topical Topical, BID, 0 Refill(s), Cream, 129.6 Start Date: 09/03/23 Status: Ordered Repeat number: 1 Start: 09-03-2023 ammonium lacta te topical Topical, BID, 0 Refill(s), Cream, 129.6 Start Date: 09/03/23 Status: Ordered ammonium lactate (LAC-HYDRIN FIVE) 5 % lotn Apply 1 Each to affected area once daily. TO BLE 0 Active Comment on above: Apply 1 Each to affe cted area once daily. TO BLE magnesium hydroxide 80 mg/ml oral suspension (8 sources) magnesium hydrox si[place]ahn (MILK OF MAGNESIA) 400 mg/5 mL suspension Take 30 mL by mouth once daily as needed for constipation (TWICE A DAY, PRN). 0 Active Comment on above: Take 30 mL by mouth once daily as needed for constipation (TWICE A DAY, PRN). 24 hr metoprolol succinate 25 mg extended release oral tablet (20 sources) beta-Adrenergic Taylor Start: take 1 tablet by mouth every twenty-four hours at bedtime Metoprolol Succinate 25 mg tablet extended release 24 hr Active 25 mg PO AT BEDTIME November 20, 2024 12:00am Start: 10-05-2024 End: 09-30-2025 take 1 tablet by mouth once daily at dinner metoprolol succinate ER (TOPROL XL) 25 mg 24 hr tablet Indications: Longstanding persistent atrial fibrillation (HCC) , Chronic heart failure with preserved ejection fraction (HFpEF) (HCC) , Primary hypertension Take 1 tablet by mouth daily with dinner. 90 tablet 3 10/05/2024 09/30/2025 Active Start: 12-21-2023 End: 01-20-2024 metoprolol succinate ER (TOP ROL XL) 100 mg Take 1 tablet by mouth once daily. Patient should start on December 21, 2023. 30 tablet 12/21/2023 Active Start: 11-25-2023 metoprolol tar trate 25 mg oral tablet Dose : 25 mg = 1 tab(s), Oral, qDay, # 60 tab(s), 0 Refill(s) Start Date: 11/25/23 Status: Ordered Quantity: 60.0 Unit: tab(s) Repeat number: 1 Start: 11-10-2023 take 1 tablet by neil th every twelve hours metoprolol tartrate, short acting, 75 mg tab Take 1 tablet by mouth every 12 hours. 0 11/10/2023 Active Start: 07-21-2017 End: 06-29-2023 take 1 tablet by mouth twice daily metoprolol tartrate 75 mg tab Indications: Primary hypertension Take 1 tablet by mouth two times a day. 180 tablet 3 06/29/2023 Active Start: 07-21-2017 take 1 tablet by neil th twice daily metoprolol tartrate, short acting, (LOPRESSOR) 50 mg tablet Take 50 mg by mouth twice daily. 0 07/21/2017 Active Comment on above: Take 50 mg by mouth. Take 50 mg by mouth twice daily. Take 75 mg by mouth twice daily. Take 1 tablet by neil th two times a day. Take 1 tablet by neil th every 12 hours. Take 1 tablet by neil th once daily. Patient should start on December 21, 2023. Milk of Magnesia (3 sources) Start: 09-03-2023 take 1 dose by mouth once daily as needed for constipation Milk of Magnesia Dose = 30 mL, Oral, Daily, PRN Constipation, 0 Refill(s) Start Date: 09/03/23 Status: Ordered Repeat number: 1 Start: 09-03-2023 take 1 dose by mouth once daily as needed for constipation Milk of Magnesia Dose = 30 mL, Oral, Daily, PRN Constipation, 0 Refill(s) Start Date: 09/03/23 Status: Ordered omeprazole 20 mg delayed release oral capsule (14 sources) Proton Pump Inhibitor Start: 02-02-2024 take 1 capsule by mouth once daily omeprazole (PRILOSEC) 20 mg capsule Take 20 mg by mouth once daily. 02/02/2024 Active Start: 02-02-2024 take 2 capsules by m out twice daily omeprazole (PRILOSEC) 20 mg capsule Take 40 mg by mouth two times a day. 0 02/02/2024 Active ondansetron 4 mg oral tablet (17 sources) Serotonin-3 Receptor Antagonist take 1 tablet by mouth every eight hours as needed ondansetron (ZOFRAN) 4 mg tablet Take 4 mg by mouth every 8 hours as needed for nausea/vomiting. Active oxyCODONE hydrochloride 5 mg oral tablet (4 sources) Opioid Agonist Start: 01-10-20 take 1 tablet by mouth every eight hours as needed for pain Oxycodone 5 mg tablet Active 5 mg PO Q8H as needed for pain 9 3 January 09, 2025 Start: 09-12-2024 End: 11-20-2024 take 1 tablet by mouth every eight hours as needed for pain Oxycodone 5 mg tablet Discontinued 5 mg PO Q8H as needed for pain 6 2 September 12, 2024 November 20, 2024 11:09am pantoprazole 40 mg delayed release oral tablet (11 sources) Proton Pump Inhibitor Start: 11-25-2023 take 1 tablet by mouth once daily Pantoprazole (Protonix) 40 mg tablet,delayed release (DR/EC) Active 40 mg PO DAILY September 12, 2024 1:00am Start: 11-02-2023 pantoprazole 4 0 mg oral enteric coated tablet Dose : 40 mg = 1 tab(s), Oral, qDay, # 90 tab(s), 0 Refill(s) Start Date: 11/25/23 Status: Ordered Start: 02-18-2021 End: 11-25-2022 take 1 tablet by mouth once daily pantoprazole DR (PROTONIX) 40 mg tablet Indications: Duodenal ulcer with hemorrhage Take 1 tablet by mouth once daily. 90 tablet 0 02/18/2021 11/25/2022 Discontinued Comment on above: Take 1 tablet by neil th once daily. Take 1 tablet by niel th two times a day. POLYETHYLENE GLYCOL 3350 (10 sources) Osmotic Laxative Start: 09-03-2023 polyethylene glycol 3350 Oral, qDay, PRN Constipation, 0 Refill(s) Start Date: 09/03/23 Status: Ordered Start: 03-24-2021 End: 11-25-2022 polyethylene glycol 3350 (AR RALAX, GLYCOLAX) 17 gram/dose powder Indications: Encounter for screening for malignant neoplasm of colon Use as directed for Miralax / Gatorade Bowel Prep Kit 238 g 0 03/24/2021 11/25/2022 Discontinued Comment on above: Use as directed for Miralax / Gatorade Bowel Prep Kit Potassium Chloride (2 sources) Start: 11-25-2023 Potassium Chloride ([id number]-Fxhq-Wcx M20) 20 mEq oral tablet, extended release Dose : 20 mEq = 1 tab(s), Oral, qDay, # 30 tab(s), 0 Refill(s) Start Date: 11/25/23 Status: Ordered Quantity: 30.0 Unit: tab(s) Repeat number: 1 Start: 11-25-2023 Potassium Chlo ride (Ecq-Pjps-Kbv M20) 20 mEq oral tablet, extended release Dose : 20 mEq = 1 tab(s), Oral, qDay, # 30 tab(s), 0 Refill(s) Start Date: 11/25/23 Status: Ordered predniSONE 20 mg oral tablet (16 sources) take 1 tablet by mouth once daily predniSONE (DELTASONE) 20 mg tablet Take 20 mg by mouth once daily. Active Comment on above: Take 20 mg by mouth once daily. sevelamer carbonate 800 mg oral tablet (2 sources) Phosphate Binder Start: 11-21-19 take 1 tablet by mouth three times daily Sevelamer Carbonate 800 mg tablet Active 800 mg PO THREE TIMES A DAY November 20, 2024 12:00am silver sulfADIAZINE 10 mg/ml topical cream (16 sources) Sulfonamide Antibacterial Start: 01-17-20 End: 02-16-20 silver sulfADIAZINE (SILVADENE) 1 % cream Indications: Chronic venous hypertension (idiopathic) with ulcer of bilateral lower extremity (CODE) (HCC) , Non-pressure chronic ulcer of other part of left lower leg with fat layer exposed (HCC) , 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) , Secondary lymphedema , Type 2 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) ([facility]) , group home current use of insulin (HCC) Apply 1 application to affected area once daily. 400 g 2 01/17/2024 02/16/2024 Active SODIUM BICARBONATE, BULK, ORAL (12 sources) take 650 mg by mouth twice daily SODIUM BICARBONATE, BULK, ORAL Take 650 mg by mouth two times a day. Active take 650 mg by mouth twice daily SODIUM BICARBONATE, BULK, ORAL Take 650 mg by mouth two times a day. 0 Active terazosin 2 mg oral capsule (1 source) alpha-Adrenergic Taylor Start: 09-03-2023 terazosin 2 mg oral capsule Dose : 2 mg = 1 cap(s), Oral, qHS, # 30 cap(s), 0 Refill(s), Pharmacy: [facility], 177, cm, 08/26/23 16:21:00 EST, Height, kg, 09/02/23 12:21:00 EST, Dosing Weight Start Date: 09/03/23 Status: Ordered traMADol hydrochloride 50 mg oral tablet (1 source) Opioid Agonist Start: 09-03-2023 End: 09-08-2023 traMADol 50 mg oral tablet Dose : 100 mg = 2 tab(s), Oral, BID, PRN Pain, scale 7-10, X 5 day(s), # 20 tab(s), 0 Refill(s), 09/08/23 1:47:00 PM EST, Pharmacy: [facility], HTN (hypertension) Hyperlipidemia, 177, cm, 08/26/23 16:21:00 EST, Height, 129.6, kg, 09/02/23 12:21:00 EST, Dosing Weight Start Date: 09/03/23 Stop Date: 09/08/23 Status: Ordered zinc sulfate 220 mg oral tablet (20 sources) take 1 tablet by mouth once daily Zinc Sulfate 50 mg zinc (220 mg) tab Take 50 mg by mouth once daily. Active Comment on above: Take 50 mg by mouth once daily. Completed/Discontinued Medications Medication Drug Class(es) Dates Sig (Normalized) Sig (Original) arginine/glutamine /calcium bmb (LIZETTE ORAL) (10 sources) End: 03-31-2024 take 8 [oz_av] by mouth twice daily arginine/glutamine/ calcium bmb (LIZETTE ORAL) Take 8 oz by mouth two times a day. 0 03/31/2024 Discontinued (Discontinued by Patient) take 8 [oz_av] by mo uth twice daily arginine/glutamine/calcium bmb (LIZETTE OR AL) Take 8 oz by mouth two times a day. 0 Active bisacodyl 5 mg delayed release oral tablet (20 sources) Stimulant Laxative Start: 03-24-2021 End: 11-25-2022 Bisacodyl (DULCOLAX) 5 mg tab Indications: Encounter for screening for malignant neoplasm of colon Use as directed for Miralax / Gatorade Bowel Prep Kit 4 tablet 0 03/24/2021 11/25/2022 Discontinued take 10 mg rectal ro [place] once daily as needed for constipation bisacodyl (DULCOLAX) 10 mg supp 10 mg by RECTAL route once daily as needed for constipation. Active Comment on above: Use as directed for Miralax / Gatorade Bowel Prep Kit 10 mg by RECTAL rout e once daily as needed for constipation. 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 2 Each 1 04/06/2024 10/05/2024 Discontinued (Other) Start: 04-06-2024 End: 04-06-2025 COMPRESSION SLEEVE Indicatio ns: Chronic venous hypertension (idiopathic) with ulcer of bilateral lower extremity (CODE) (HCC) , Non-pressure chronic ulcer of other part of left lower leg with fat layer exposed (HCC) , 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) , Secondary lymphedema once daily. 2 Each 1 04/06/2024 04/06/2025 Active diclofenac sodium 0.01 mg/mg topical gel (3 sources) Nonsteroidal Anti-inflammatory Drug Start: 09-03-2023 diclofenac 1% topical gel Apply 1 keenan, Topical, BID, PRN Pain, 0 Refill(s), Gel, 129.6 Start Date: 09/03/23 Status: Ordered Repeat number: 1 Gatorade Sports Drink (8 sources) Start: 03-24-2021 End: 11-25-2022 Gatorade Sports Drink Indications: Encounter for screening for malignant neoplasm of colon Use as directed for Miralax / Gatorade Bowel Prep Kit 64 oz 0 03/24/2021 11/25/2022 Discontinued Start: 03-24-2021 Gatorade Sport s Drink Indications: Encounter for screening for malignant neoplasm of colon Use as directed for Miralax / Gatorade Bowel Prep Kit 64 oz 0 03/24/2021 Active Comment on above: Use as directed for Miralax / Gatorade Bowel Prep Kit glucagon (GVOKE) 1 mg/0.2 mL injection (1 source) glucagon (GVOKE) 1 mg/0.2 mL injection Inject 1 mg subcutaneously as needed (hypoglycemia). 0 Suspended Comment on above: Inject 1 mg subcutan eously as needed (hypoglycemia). hydroCHLOROthiazide 50 mg oral tablet (10 sources) Thiazide Diuretic Start : 08-21 End: 09-12 take 2 tablets by mouth twice daily Hydrochlorothiazide 50 mg tablet Discontinued 100 mg PO TWICE A DAY August 21, 2024 1:00am September 12, 2024 7:49am Start: 07-21-2017 End: 11-25-2022 hydroCHLOROthiazide (HYDRODI URIL, ESIDRIX) 25 mg tablet Take 25 mg by mouth. 0 07/21/2017 11/25/2022 Discontinued Comment on above: Take 25 mg by mouth. 3 ml insulin aspart, human 100 unt/ml pen injector (8 sources) Insulin Analog Start: 6 End: 3 insulin aspart U-100 (NOVOLOG) 100 unit/mL (3 mL) Inject 10 Units subcutaneously. 0 02/03/2016 11/25/2022 Discontinued Comment on above: Inject 10 Units subc utaneously. lisinopril 20 mg oral tablet (8 sources) Angiotensin Converting Enzyme Inhibitor Start: 1 End: 3 take 1 tablet by mouth twice daily lisinopril (ZESTRIL, PRINIVIL) 20 mg tablet Take 20 mg by mouth twice daily. 0 12/06/2020 11/25/2022 Discontinued Comment on above: Take 20 mg by mouth twice daily. multivitamin tablet (13 sources) End: 4 take 1 tablet by mouth twice daily multivitamin tablet Take 1 tablet by mouth two times a day. 0 03/31/2024 Discontinued (Discontinued by Patient) take 1 tablet by mouth twice gaston ly multivitamin tablet Take 1 tablet by mouth two times a day. 0 Active Comment on above: Take 1 tablet by neil th two times a day. purified protein derivative of tuberculin 50 unt/ml injectable solution (5 sources) Tuberculosis Skin Test, Skin Test Antigen tuberculin skin test PPD (APLISOL) 5 tub. unit /0.1 mL injection 5 Units by INTRADERMAL route one time only. 0 Active Comment on above: 5 Units by INTRADERM AL route one time only. rosuvastatin calcium 10 mg oral tablet (8 sources) HMG-CoA Reductase Inhibitor take 1 tablet by mouth once daily at bedtime rosuvastatin (CRESTOR) 10 mg tablet Take 10 mg by mouth daily at bedtime. 0 Active Comment on above: Take 10 mg by mouth daily at bedtime. spironolactone 25 mg oral tablet (8 sources) Aldosterone Antagonist Start: 07-21-20 End: 11-26-19 spironolactone (ALDACTONE) 25 mg tablet Take 25 mg by mouth. 0 07/21/2017 11/25/2022 Discontinued Comment on above: Take 25 mg by mouth. sucralfate 1000 mg oral tablet (8 sources) Aluminum Complex Start: 02-01-20 21 End: 11-26-19 sucralfate (CARAFATE) 1 gram tablet torsemide 20 mg oral tablet (1 source) Loop Diuretic Start: 11-03-19 take 2 tablets by mouth twice daily torsemide (DEMADEX) 20 mg tablet Take 2 tablets by mouth two times a day. 0 11/03/2023 Suspended Comment on above: Take 2 tablets by mo uth two times a day. Problems Active Problems Problem Classification Problem Date Documented Date Episodic/Chronic Acute and unspecified renal failure (15 sources) Uremia; Translations: [Unspecified kidney failure] Onset: 03-06-2024 Resolved: 03-11-2024 03-11-2024 Chronic Administrative/social admission (2 sources) Problems related to living alone; Translations: [Problems related to living alone] Episodic Bacterial infection; unspecified site (1 source) Bacterial infectious disease; Translations: [Other specified bacterial agents as the cause of diseases classified elsewhere] Episodic Cardiac dysrhythmias (20 sources) Chronic atrial fibrillation; Translations: [Paroxysmal atrial fibrillation] Onset: 09-03-2017 Chronic Cardiac dysrhythmias (1 source) Cardiac dysrhythmias Onset: 07-05-2017 Chronic kidney disease (20 sources) Chronic kidney disease, stage 4 (severe); Translations: [Chronic kidney disease] Onset: 09-03-2017 05-28-2023 Chronic Chronic ulcer of skin (20 sources) Non-pressure chronic ulcer of unspecified part of right lower leg limited to breakdown of skin; Translations: [Ulcer of lower limb, unspecified] Onset: 08-15-2023 08-17-2023 Chronic Congestive heart failure; nonhypertensive (20 sources) Congestive heart failure; Translations: [Heart failure, unspecified] Onset: 11-05-2023 Chronic Deficiency and other anemia (2 sources) Anemia 02-16-2024 Episodic Deficiency and other anemia (1 source) Iron deficiency anemia, unspecified; Translations: [Iron deficiency anemia, unspecified] Onset: 12-29-2024 Episodic Diabetes mellitus with complications (20 sources) Type 2 diabetes mellitus with diabetic chronic kidney disease; Translations: [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] Onset: 09-03-2017 Chronic Diabetes mellitus without complication (9 sources) Type 2 diabetes mellitus without complication; Translations: [Type 2 diabetes mellitus without complications] Onset: 08-28-2023 05-28-2023 Chronic Diabetes mellitus without complication (1 source) Diabetes mellitus without complication Onset: 02-03-2016 Disorders of lipid metabolism (5 sources) Hyperlipidemia; Translations: [Hyperlipidemia, unspecified] Onset: 08-28-2023 Chronic E Codes: Fall (1 source) Unspecified fall, initial encounter; Translations: [Fall, initial encounter] Onset: 12-26-2024 Episodic Esophageal disorders (1 source) Gastroesophageal reflux disease without esophagitis; Translations: [Gastro-esophageal reflux disease without esophagitis] Chronic Essential hypertension (20 sources) Essential hypertension; Translations: [Essential (primary) hypertension] Onset: 06-29-2023 Chronic Comment on above: CONTROLLED WITH MED Gastroduodenal ulcer (except hemorrhage) (4 sources) Ulcer of duodenum; Translations: [Peptic ulcer] 02-16-2024 Chronic Comment on above: ON PEPCID AND PROTON IX Gout and other crystal arthropathies (1 source) Gout, unspecified; Translations: [Gout, unspecified] Chronic Hyperplasia of prostate (1 source) Benign prostatic hypertrophy without outflow obstruction; Translations: [Benign prostatic hyperplasia without lower urinary tract symptoms] Chronic Hypertension with complications and secondary hypertension (3 sources) Hypertensive chronic kidney disease with stage 1 through stage 4 chronic kidney disease, or unspecified chronic kidney disease; Translations: [Hypertensive heart and renal disease with both (congestive) heart failure and renal failure] Onset: 09-03-2017 Chronic Malaise and fatigue (6 sources) Malaise; Translations: [Other malaise] Onset: 08-28-2023 Episodic Open wounds of extremities (1 source) Laceration of left elbow; Translations: [Laceration without foreign body of left elbow, subsequent encounter] Episodic Other aftercare (4 sources) group home (current) use of insulin; Translations: [PENITENTIARY (CURRENT) USE OF INSULIN] Onset: 09-03-2017 Episodic Other aftercare (1 source) Post-discharge follow-up; Translations: [Encounter for follow-up examination after completed treatment for conditions other than malignant neoplasm] Episodic Other aftercare (3 sources) Long-term current use of anticoagulant; Translations: [historical site guide (current) use of anticoagulants] Episodic Other aftercare (1 source) Long-term current use of drug therapy; Translations: [Other braider operator (current) drug therapy] Episodic Other aftercare (12 sources) Long-term current use of insulin; Translations: [historical site guide (current) use of insulin] Episodic Other aftercare (1 source) Encounter for adjustment and management of vascular access device; Translations: [Encounter for adjustment and management of vascular access device] Onset: 02-03-2025 Episodic Other and ill-defined heart disease (11 sources) Cardiomegaly; Translations: [Cardiomegaly] Onset: 05-18-2023 03-31-2024 Chronic Other circulatory disease (3 sources) Arteriovenous fistula, acquired; Translations: [Arteriovenous fistula, acquired] Onset: 12-07-2024 Chronic Other circulatory disease (4 sources) Arteriovenous fistula; Translations: [Arteriovenous fistula, acquired] 09-28-2024 Chronic Comment on above: [place] vein basilic fistula with interposition PTFE near axilla Other circulatory disease (1 source) Presence of other vascular implants and grafts; Translations: [Presence of other vascular implants and grafts] Onset: 02-28-2025 Chronic Other circulatory disease (1 source) Disorder of respiratory system; Translations: [Other specified symptoms and signs involving the circulatory and respiratory systems] Episodic Other diseases of veins and lymphatics (1 source) Lymphedema; Translations: [Lymphedema, not elsewhere classified] Chronic Other diseases of veins and lymphatics (12 sources) Venous hypertension of lower limb; Translations: [Chronic venous hypertension (idiopathic) with ulcer of bilateral lower extremity] 12-06-2023 Chronic Other diseases of veins and lymphatics (12 sources) Chronic acquired lymphedema; Translations: [Lymphedema, not elsewhere classified] 12-06-2023 Chronic Other diseases of veins and lymphatics (1 source) Chronic venous hypertension (idiopathic) with ulcer of bilateral lower extremity; Translations: [Chronic venous hypertension (idiopathic) with ulcer of bilateral lower extremity (CODE) ([facility])] Onset: 03-23-2024 Chronic Other diseases of veins and lymphatics (1 source) Lymphedema, not elsewhere classified; Translations: [Secondary lymphedema] Onset: 03-23-2024 Chronic Other diseases of veins and lymphatics (1 source) Disorder of vein; Translations: [Other specified disorders of veins] Episodic Other fractures (1 source) Other specified fracture of left pubis, initial encounter for closed fracture; Translations: [Closed fracture of multiple rami of left pubis, initial encounter ([facility])] Onset: 12-26-2024 Episodic Other fractures (3 sources) Other specified fracture of left pubis, subsequent encounter for fracture with routine healing; Translations: [Other specified fracture of left pubis, subsequent encounter for fracture with routine healing] Onset: 12-29-2024 Episodic Other lower respiratory disease (1 source) Dyspnea; Translations: [Shortness of breath] Episodic Other nervous system disorders (1 source) Altered sensation of skin; Translations: [Other disturbances of skin sensation] Episodic Other nervous system disorders (1 source) Abnormal gait; Translations: [Unspecified abnormalities of gait and mobility] Episodic Other non-traumatic joint disorders (1 source) Undifferentiated inflammatory polyarthritis; Translations: [Polyarthritis, unspecified] Chronic Other non-traumatic joint disorders (1 source) Pain in right knee; Translations: [Pain of right knee joint] Episodic Other non-traumatic joint disorders (1 source) Pain in left knee; Translations: [Pain of left knee joint] Episodic Other non-traumatic joint disorders (1 source) Knee joint effusion; Translations: [Effusion, left knee] Episodic Other nutritional; endocrine; and metabolic disorders (5 sources) Morbid obesity; Translations: [Morbid (severe) obesity due to excess calories] Onset: 08-28-2023 Chronic Other nutritional; endocrine; and metabolic disorders (13 sources) Obese class II; Translations: [Body mass index (BMI) 37.0-37.9, adult] Onset: 12-20-2023 Chronic Other nutritional; endocrine; and metabolic disorders (18 sources) Severe obesity; Translations: [Morbid (severe) obesity due to excess calories] Onset: 08-09-2023 11-05-2023 Chronic Other nutritional; endocrine; and metabolic disorders (9 sources) Obesity caused by energy imbalance; Translations: [Other obesity due to excess calories] Onset: 03-31-2024 03-31-2024 Chronic Other nutritional; endocrine; and metabolic disorders (2 sources) Body mass index 30+ - obesity 02-16-2024 Chronic Other nutritional; endocrine; and metabolic disorders (1 source) Other obesity due to excess calories; Translations: [Class 1 obesity due to excess calories with serious comorbidity and body mass index (BMI) of 30.0 to 30.9 in adult] Onset: 03-31-2024 Chronic Other nutritional; endocrine; and metabolic disorders (1 source) Body mass index (BMI) 30.0-30.9, adult; Translations: [Class 1 obesity due to excess calories with serious comorbidity and body mass index (BMI) of 30.0 to 30.9 in adult] Onset: 03-31-2024 Chronic Other nutritional; endocrine; and metabolic disorders (1 source) H/O: diabetes mellitus; Translations: [Personal history of other endocrine, nutritional and metabolic disease] Episodic Other nutritional; endocrine; and metabolic disorders (2 sources) Overweight in adulthood with body mass index of 25 or more but less than 30; Translations: [Overweight] Onset: 10-05-2024 10-05-2024 Episodic Other nutritional; endocrine; and metabolic disorders (1 source) Overweight; Translations: [Overweight with body mass index (BMI) of 28 to 28.9 in adult] Onset: 10-05-2024 Episodic Other nutritional; endocrine; and metabolic disorders (1 source) Body mass index (BMI) 28.0-28.9, adult; Translations: [Overweight with body mass index (BMI) of 28 to 28.9 in adult] Onset: 10-05-2024 Episodic Other skin disorders (1 source) Disorder of skin pigmentation; Translations: [Disorder of pigmentation, unspecified] Episodic Other skin disorders (1 source) Asteatosis cutis; Translations: [Xerosis cutis] Episodic Residual codes; unclassified (1 source) Bilateral lower limb edema; Translations: [Localized edema] Episodic Residual codes; unclassified (1 source) Past history of procedure; Translations: [Personal history of other medical treatment] 05-28-2023 Episodic Residual codes; unclassified (1 source) Acquired absence of organ; Translations: [Acquired absence of other specified parts of digestive tract] Episodic Residual codes; unclassified (1 source) Localized edema; Translations: [Localized edema] Episodic Residual codes; unclassified (1 source) Current drinker; Translations: [Alcohol use, unspecified, uncomplicated] Episodic Screening and history of mental health and substance abuse codes (3 sources) Ex-smoker; Translations: [Personal history of nicotine dependence] Episodic Substance-related disorders (1 source) Cannabis misuse; Translations: [Cannabis use, unspecified, uncomplicated] Episodic Unclassified (1 source) historical site guide (current) use of anticoagulants / Z79.01(ICD-10) Onset: 07-19-2017 Unclassified (1 source) historical site guide (current) use of insulin (HCC) / Z79.4(ICD-10) Onset: 02-03-2016 Unclassified (1 source) Longstanding persistent atrial fibrillation; Translations: [Longstanding persistent atrial fibrillation (HCC)] Onset: 03-31-2024 Past or Other Problems Problem Classification Problem Date Documented Da te Episodic/Chronic Abdominal pain (1 source) Generalized abdominal pain; Translations: [Generalized abdominal pain] Onset: 4 Episodic Acute and unspecified renal failure (10 sources) Acute renal failure syndrome; Translations: [Acute kidney failure, unspecified] Onset: 3 Episodic Deficiency and other anemia (1 source) Anemia, unspecified; Translations: [Anemia, unspecified type] Onset: 4 Episodic Fluid and electrolyte disorders (20 sources) Hypervolemia; Translations: [Fluid overload, unspecified] Onset: 4 Resolved: 4 Episodic Gastrointestinal hemorrhage (20 sources) Upper gastrointestinal bleeding; Translations: [Gastrointestinal hemorrhage, unspecified] Onset: 4 10-31-2023 Episodic Infective arthritis and osteomyelitis (except that caused by tuberculosis or sexually transmitted disease) (4 sources) Bacterial arthritis; Translations: [Pyogenic arthritis, unspecified] Onset: 3 Episodic Nutritional deficiencies (13 sources) Malnutrition (calorie); Translations: [Moderate protein-calorie malnutrition] Onset: 4 Resolved: 4 03-11-2024 Chronic Other screening for suspected conditions (not mental disorders or infectious disease) (20 sources) Other specified abnormal findings of blood chemistry; Translations: [Other abnormal blood chemistry] Onset: 4 10-25-2023 Episodic Residual codes; unclassified (1 source) Other specified health status; Translations: [Medically complex patient] Onset: 3 Episodic Unclassified (1 source) Z79.01 Onset: 2 Viral infection (20 sources) Disease caused by 2019-nCoV; Translations: [COVID-19] Onset: 4 11-05-2023 Episodic Results Test Name Value Interpretation Reference Range Facility AV Fistula/Dialysis Graft Sc anon 02-06-2025 AV Fistula/Dialysis Graft Scan [facility] [place] [address] AV Fistula/Dialysis Graft Scan 02/06/25 1258 MR#: [id number] Acct: [id number] Name: ROZ BAKER Rep #: [id number] : 1950 74 From: Hugo Alvarado MD Attending Dr: LORI Ayala Status: REG CLI Ordering Dr: Lilia Martin Date: 02/06/25 Location: [facility] Sex: M C Admitted: Reason For Study Reason For Study: S/P left basilic AVR transposition, interposition PTFE LEFT Inflow, 260.6/129.6 cm/sec. Inflow, 2127 ml/min. Prox anastamosis, 465.3/279.5 cm/sec. Prox anastamosis,990.5 ml/min. Prox graft, 268.3/135.9 cm/sec. Prox graft, 4995 ml/min. Mid graft, 52.3/34.8 cm/sec. Mid graft, 1292 ml/min. Distal graft, 55.6/38.1 cm/sec. Distal graft, 1385 ml/min. Distal graft, PTFE prox, 270.5/163.8 cm/sec. Distal graft, PTFE prox, 1785 ml/min. Distal graft, PTFE mid, 302.6/179.8 cm/sec. Distal graft, PTFE mid, 1682 ml/min. Distal graft, PTFE distal, 276.6/160.4 cm/sec. Distal graft, PTFE disal, 1369 ml/min. Outflow, 101.6/54.2 cm/sec. Outflow, 4563 ml/min. VL/AV Fistula/Dialysis Graft Scan Interpretation Summary Patent left basilic fistula/graft with normal velocities, no evidence of stenosis, and adequate flow volumes. Ordering Physician: Lilia Martin Referring Physician: Kamron Lepe Performed By: Ebonie Montalvo, RVT 02/06/251649 Date Hugo Alvarado MD CC: LORI Ayala; Dr. Kamron Lepe MD Date Dictated: 02/06/25 1258 Date Transcribed: 02/06/251649 Retail Assistant Manager: Signed Normal [facility] Arterial study reportOrdered By: Hugo Alvarado on 02-06-2025 Noninvasive arteriosclerosis study report [facility] [address] [place] [address] AV Fistula/Dialysis Graft Scan 02/06/251257 MR#: [id number] Acct: [id number] Name: ROZ BAKER Rep #:[id number] : 1950 74 From: Hugo Hernadez Attending Dr: LORI Ayala Stat us: REG CLI Ordering Dr: Lilia Martin Date: Location: [facility] Sex: M C Admitted: Reason For Study Reason For Study: S/P left basilic AVR transposition, interposition PTFE LEFT Inflow, 260.6/129.6 cm/sec. Inflow, 2127 ml/min. Prox anastamosis, 465.3/279.5 cm/sec. Prox anastamosis,990.5 ml/min. Prox graft, 268.3/135.9 cm/sec. Prox graft, 4995 ml/min. Mid graft, 52.3/34.8 cm/sec. Mid graft, 1292 ml/min. Distal graft, 55.6/38.1 cm/sec. Distal graft, 1385 ml/min. Distal graft, PTFE prox, 270.5/163.8 cm/sec. Distal graft, PTFE prox, 1785 ml/min. Distal graft, PTFE mid, 302.6/179.8 cm/sec. Distal graft, PTFE mid, 1682 ml/min. Distal graft, PTFE distal, 276.6/160.4 cm/sec. Distal graft, PTFE disal, 1369 ml/min. Outflow, 101.6/54.2 cm/sec. Outflow, 4563 ml/min. VL/AV Fistula/Dialysis Graft Scan Interpretation Summary Patent left basilic fistula/graft with normal velocities, no evidence of stenosis, and adequate flow volumes. Ordering Physician: Lilia Martin Referring Physician: Kamron Lepe Performed By: Ebonie Montalvo RVT 02/06/251649 Date _ Hugo Alvarado MD CC: LORI Ayala; Dr. Kamron Lepe MD ~ Date Dictated: 02/06/25 1258 Date Transcribed: 02/06/251649 Retail Assistant Manager: Signed [facility] Work Phone: Surgery Visit Reporton 01-23 Surgery Visit Report [facility] [address] [place] [address]. [address] [place] [address] OFFICE VISIT Date of Service: 01/23/25 MR#: [id number] Acct: [id number] Name: ROZ BAKER Rep #: [id number] : 1950 Provider: LORI Ayala Age/Sex: 74/M Location: [facility] Status: Signed Intake Vital Signs 09/12/24 06:50 12/12/24 10:33 01/09/25 07:46 01/23/25 14:12 Height 5 ft 10 in 5 ft 10 in 5 ft 10 in Weight: 193 lb BP 108/47 L Blood Pressure Location Rt brachial Position Sitting Respiration 14 Pulse 58 L Pulse Source Monitor Temp 98 F Temp Source Temporal Pulse Oximetry (%) 97 Oxygen Delivery Method room air Intake Visit Reasons: Post op Chief Complaint: post op Is patient in pain?: No Allergies codeine Allergy (Severe, Verified 01/23/25 14:14) Vomiting Medications ???Medication ???Instructions ???Recorded ???Confirmed ???Type furosemide 20 mg tablet (Lasix) 20 mg PO DAILY 08/21/24 01/23/25 H istory vitamin B complex and vitamin C 1 cap PO QHS 08/21/24 01/23/25 His tory no.20-folic acid 1 mg capsule (Renal Caps) allopurinol 100 mg tablet 100 mg PO DAILY 08/29/24 01/23/25 History apixaban 5 mg tablet (Eliquis) 5 mg PO BID 08/29/24 01/23/25 Hist ory Held on 01/09/25. Instructions: Resume on 01/11/25. famotidine 20 mg tablet 20 mg PO QHS 09/12/24 01/23/25 His tory hydralazine 50 mg tablet 75 mg PO TID 09/12/24 01/23/25 His tory pantoprazole 40 mg tablet,delayed 40 mg PO DAILY 09/12/24 01/23/25 History release (Protonix) isosorbide mononitrate 60 mg 60 mg PO DAILY 11/20/24 01/23/25 H istory tablet,extended release 24 hr metoprolol succinate 25 mg 25 mg PO QHS 11/20/24 01/23/25 His tory tablet,extended release 24 hr sevelamer carbonate 800 mg tablet 800 mg PO TID 11/20/24 01/23/25 H istory docusate sodium 100 mg capsule 100 mg PO BID 01/05/25 01/23/25 Hi story (Colace) insulin lispro 100 unit/mL 1 unit subcut BID SLIDING SCALE 01/23/25 History subcutaneous pen (Humalog KwikPen (U-100) Insulin) oxycodone-acetaminophen 5 mg-325 1 tab PO Q6H PRN pain 01/05/25 History mg tablet (Percocet) oxycodone 5 mg tablet 5 mg PO Q8H PRN pain 3 days #9 tab s 01/09/25 01/23/25 Rx Have you fallen in the past year?: Yes Subjective Details: Mr. Roz Baker is a 74 y/o male who presents to the office today for postoperative visit s/p stage II basilic fistula transposition with interposition PTFE graft to attain adequate length for access. He reports he has done well since surgery. He has noticed some intermittent paleness into his fingers with prolonged use of his arm, such as driving or holding up a phone with that hand, but he does not have any associated pain and he reports the color quickly returns when he rests his arm; he states this has been present since the initial creation and has been lessening with time. He presents to the office today with all of the postoperative dressings still in place; he reports no drainage/bleeding outside of these dressings. He denies constitutional symptoms. He states dialysis has been going well via his tunneled catheter. Objective Details: A Ox3, NAD RRR Nonlabored respirations Removed postop dressings; incision site medially on the arm is intact, dermabond/prineo still intact, incision appears well-healed, no drainage Left upper arm AV fistula with excellent thrill and bruit, though pulsatile proximally. Through the intended access area, from antecubital crease to near-axilla is all [place] vein; the most proximal 2 inches near the axilla is PTFE. Palpable L radial and ulnar pulses; L hand appropriately warm and pink on exam Coding Level of Care Code Global Post Op Diagnoses ESRD (end stage renal disease) on dialysis N18.6; Z99.2 AV fistula I77.0 [facility] Medical History Walker as ambulation aid Fractured pelvis Wears glasses Alcohol use Ambulates with cane Gout Arthritis Low iron Easy bruising Back pain Dietary restriction Former smoker Shortness of breath on exertion Insulin dependent diabetes mellitus History of pain when walking History of edema History of echocardiogram Cardiology follow-up encounter History of atrial fibrillation History of GI bleed History of renal dialysis History of hemodialysis CHF (congestive heart failure) Peptic ulcer Hypertension Diabetes ESRD (end stage renal disease) Surgical History Hx of colonoscopy History of esophagogastroduodenoscopy (EGD) Hx of cholecystectomy History of ankle surgery Social History Smoking Status: Fo (more content not included)... Normal [facility] Anion gap in Serum or Plasma Ordered By: Hugo Alvarado on 01-09-2025 Anion gap [Moles/Vol] 12 mmol/L 5-15 [facility] BUN/creatinine ratioOrdered By: Hugo Alvarado on 01-09-2025 Urea nitrogen/Creatinine [Mass ratio] 9.4 mg/mg Low 10-20 [facility] Basic Metabolic Profile (BMP )on 01-09-2025 BUN/CRE 9.4 RATIO Low 10- [facility] Comment on above: Performed By: #### L 500.2500, L100.0500 ####[facility] [address] [place], [address] Calcium [Mass/Vol] 9.1 mg/dL Normal 7.6-11.0 [facility] Comment on above: Performed By: #### L 500.2500, L100.0500 ####[facility] [address] [place], [address] Chloride [Moles/Vol] 99 mmol/L Normal 98-108 [facility] Comment on above: Performed By: #### L 500.2500, L100.0500 ####[facility] [address] [place], [address] CO2 [Moles/Vol] 25.2 mmol/L Normal 21.0-32.0 [facility] Comment on above: Performed By: #### L 500.2500, L100.0500 ####[facility] [address] [place], [address] Creatinine [Mass/Vol] 4.43 mg/dL High 0.70-1.20 [facility] Comment on above: Performed By: #### L 500.2500, L100.0500 ####[facility] [address] [place], [address] ECRCL 15.56 ml/min Low 50-250 [facility] Comment on above: Performed By: #### L 500.2500, L100.0500 ####[facility] [address] [place], [address] GAP 12 Normal 5-15 [facility] Comment on above: Performed By: #### L 500.2500, L100.0500 ####[facility] [address] [place], [address] GFR/1.73 sq M.predicted among non-blacks MDRD (S/P/Bld) [Vol rate/Area] 13 mL/min/{1.73_m2} Low >60 [facility] Comment on above: Result Comment: mL/m in/1.73m2 CKD-EPI Creatinine Equation (2020) Performed By: #### L 500.2500, L100.0500 ####[facility] [address] [place], [address] Glucose [Mass/Vol] 103 mg/dL High 70-99 [facility] Comment on above: Performed By: #### L 500.2500, L100.0500 ####[facility] [address] [place], [address] Potassium [Moles/Vol] 4.5 mmol/L Normal 3.3-5.1 [facility] Comment on above: Performed By: #### L 500.2500, L100.0500 ####[facility] [address] [place], [address] Sodium [Moles/Vol] 137 mmol/L Normal 133-145 [facility] Comment on above: Performed By: #### L 500.2500, L100.0500 ####[facility] [address] [place], [address] Urea nitrogen [Mass/Vol] 42 mg/dL High 4-19 [facility] Comment on above: Performed By: #### L 500.2500, L100.0500 ####[facility] [address] [place], [address] Bedside Glucoseon 01-09-2025 FINGERSTICK GLU 138 mg/dL High 74-106 [facility] Comment on above: Result Comment: LAXMI WALKER OF PATIENT CARE PER NURSING PROTOCOL Performed By: #### L 501.080 ####[facility] [address] [place], [address] CBC-Complete Blood Cnt No Di ffon 01-09-2025 Erythrocyte distribution width (RBC) [Ratio] 17.1 % High 11.6-14.6 [facility] Comment on above: Performed By: #### L 500.2500, L100.0500 ####[facility] [address] [place], [address] Hematocrit (Bld) [Volume fraction] 32.0 % Low 40-54 [facility] Comment on above: Performed By: #### L 500.2500, L100.0500 ####[facility] [address] [place], [address] Hemoglobin (Bld) [Mass/Vol] 9.9 g/dL Low 13.0-16.5 [facility] Comment on above: Performed By: #### L 500.2500, L100.0500 ####[facility] [address] [place], [address] MCH (RBC) [Entitic mass] 28.0 pg Normal 27.0-32.0 [facility] Comment on above: Performed By: #### L 500.2500, L100.0500 ####[facility] [address] [place], [address] MCHC (RBC) [Mass/Vol] 30.9 g/dL Low 32-36 [facility] Comment on above: Performed By: #### L 500.2500, L100.0500 ####[facility] [address] [place], [address] MCV (RBC) [Entitic vol] 90.4 fL Normal 80-94 [facility] Comment on above: Performed By: #### L 500.2500, L100.0500 ####[facility] [address] [place], [address] Platelet mean volume (Bld) [Entitic vol] 8.7 fL Normal 6.2-12.0 [facility] Comment on above: Performed By: #### L 500.2500, L100.0500 ####[facility] [address] [place], [address] Platelets (Bld) [#/Vol] 238 10*3/uL Normal 150-450 [facility] Comment on above: Performed By: #### L 500.2500, L100.0500 ####[facility] [address] [place], [address] RBC (Bld) [#/Vol] 3.54 10*6/uL Low 4.6-6.2 [facility] Comment on above: Performed By: #### L 500.2500, L100.0500 ####[facility] [address] [place], [address] RDW SD 56.5 fl High 35.1-43.9 [facility] Comment on above: Performed By: #### L 500.2500, L100.0500 ####[facility] [address] [place], [address] WBC (Bld) [#/Vol] 6.4 10*3/uL Normal 4.4-11.0 [facility] Comment on above: Performed By: #### L 500.2500, L100.0500 ####[facility] [address] [place], [address] Carbon dioxide, total [Moles /volume] in Central venous bloodOrdered By: Hugo Alvarado on 01-09-2025 CO2 [Moles/Vol] 25.2 mmol/L 21.0-32.0 [facility] Chloride assayOrdered By: Marcelino Alvarado on 01-09-2025 Chloride [Moles/Vol] 99 mmol/L 98-108 [facility] Discharge Instructionon 12-13 Discharge Instruction [facility] Medical Records Department [address] [place] [address] Instructions for Home/Discharge Instructions 01/09/25 1256 MR#: [id number] Acct: [id number] Name: ROZ BAKER Rep #: [id number] : 1950 74 From: Hugo Alvarado MD PCP: Dr. Kamron Lepe MD Status:REG [facility] Discharge Instructions Diet Discharge Diet: No restrictions Activity Lifting Restrictions: do not lift > 20 lbs with left arm for 3 weeks Dressing / Incision Call your doctor if your incision/area has: Sudden Increased Bleeding, Increased Pain/ Swelling, Increased Redness and Foul Smelling Discharge Call your doctor if you observe: Fever of 101 or Higher Remove Dressing in: 2 days Cleanse incision/area with: Soap Water Follow Up Care Test Results: Test results from this visit will be discussed in further detail at your follow-up appointment, if applicable. Discharge Plan Admission Attending Provider: Hugo Alvarado Primary Care Provider: Kamron Lepe Instructions Print Language: Cymraes Discharge Orders/Prescriptions Prescriptions: New oxycodone 5 mg tablet 5 mg PO Q8H PRN (Reason: pain) 3 Days Qty: 9 0RF Continued Renal Caps 1 mg capsule 1 cap PO QHS furosemide [Lasix] 20 mg tablet 20 mg PO DAILY sevelamer carbonate 800 mg tablet 800 mg PO TID metoprolol succinate 25 mg tablet extended release 24 hr 25 mg PO QHS isosorbide mononitrate 60 mg tablet extended release 24 hr 60 mg PO DAILY docusate sodium [Colace] 100 mg capsule 100 mg PO BID insulin lispro [Humalog KwikPen Insulin] 100 unit/mL insulin pen 1 unit subcut BID Rx Instructions: AT JAIL oxycodone-acetaminophen [Percocet] 5-325 mg tablet 1 tab PO Q6H PRN (Reason: pain) Rx Instructions: SACRAL/PELVIS FX allopurinol 100 mg tablet 100 mg PO DAILY pantoprazole [Protonix] 40 mg tablet,delayed release (DR/EC) 40 mg PO DAILY hydralazine 50 mg tablet 75 mg PO TID famotidine 20 mg tablet 20 mg PO QHS Held Eliquis 5 mg tablet 5 mg PO BID Hold Instructions: Resume on 01/11/25. Referrals / Follow Up: Kamron Lepe MD [Primary Care Provider] - Disposition Disposition (needs filled in before D/C Order can be placed): Home, Self Care 01/09/25 1301 Hugo Alvarado MD CC: Dr. Kamron Lepe MD Signed Normal [facility] Erythrocyte distribution wid th ratioOrdered By: Hugo Alvarado on 01-09-2025 Erythrocyte distribution width (RBC) [Ratio] 17.1 % High 11.6-14.6 [facility] Erythrocyte distribution wid th standard deviationOrdered By: Hugo Alvarado on 01-09-2025 Erythrocyte distribution width (RBC) [Ratio] 56.5 fl High 35.1-43.9 [facility] Glomerular filtration rate ( GFR) estimation/1.73 sq m using serum, plasma, or whole bOrdered By: Hugo Alvarado on 01-09-2025 GFR/1.73 sq M.predicted among non-blacks MDRD (S/P/Bld) [Vol rate/Area] 13 mL/min/{1.73_m2} Low >60 [facility] Comment on above: mL/min/1.73m2 CKD-EP I Creatinine Equation (2020) [facility] deOrdered By: Hugo Alvarado on 01-09-2025 Glucose [Mass/Vol] 138 mg/dL High 74-106 [facility] Comment on above: MANAGEMENT OF PATIEN T CARE PER NURSING PROTOCOL Hematocrit Auto (Bld) [Volum e fraction]Ordered By: Hugo Alvarado on 01-09-2025 Hematocrit (Bld) [Volume fraction] 32.0 % Low 40-54 [facility] Hemoglobin measurementOrdere d By: Hugo Alvarado on 01-09-2025 Hemoglobin (Bld) [Mass/Vol] 9.9 g/dL Low 13.0-16.5 [facility] MCV (mean corpuscular volume ) determinationOrdered By: Hugo Alvarado on 01-09-2025 MCV (RBC) [Entitic vol] 90.4 fL 80-94 [facility] MR/POSTOP.ANEon 01-09-2025 MR/POSTOP.ANE [facility] Medical Records Department [address] [place] [address] Anesthesia Postop Eval I 01/09/25 1323 MR#: [id number] Acct: [id number] Name: OLIVIAROZ ROJAS Rep #: [id number] : 1950 74 From: Leonela Allen CRNA PCP: Dr. Kamron Lepe MD Status:REG [facility] Y Race: C Location: [place] [address] Anesthesia: Postop Eval I Current Vital Signs Temperature: 98.5 F Pulse Rate: 75 Blood Pressure: 140/67 Respiratory Rate: 18 Pulse Ox: 97 Oxygen Delivery Method: Room Air Assessment Airway patent: Yes Spontaneous unlabored respirations: Yes Mental status: Awake and Calm nausea: No Vomiting: No Anesthesia Complication: No Fluid Hydration Crystalloid volume administer (ml): 400 Total IV fluid infused: 400 Progress Note Anesthesia document: Postop Eval 1 completed: Yes 01/09/25 1334 Date Leonela Allen ADVANCED REGISTERED NURSE Cosigner Signature: Date CC: Signed Normal [facility] MR/[id number] 01-09-2025 MR/POSTOPAN2 [facility] Medical Records Department [address] [place] [address] Anesthesia Postop Eval II 01/09/25 1639 MR#: [id number] Acct: [id number] Name: ROZ BAKER Rep #: [id number] : 1950 74 From: Naye Warner ADVANCED REGISTERED NURSE PCP: Dr. Kamron Lepe MD Status:DEP [facility] Y Race: C Location: [facility] Anesthesia Postop Eval I Sum Postop Eval Completion status Anesthesia document: Postop Eval 1 completed: Yes Anesthesia Postop Eval I Summary Anesthesia Postop Eval I Summary: Anesthesia Postop Eval I: Assessment Summary Airway patent Yes 01/09/25 13:34 ADVANCED REGISTERED NURSE.LMIL Spontaneous unlabored Yes 01/09/25 13:34 ADVANCED REGISTERED NURSE.LMIL respirations Mental status Awake,Calm 01/09/25 13:34 ADVANCED REGISTERED NURSE.LMIL nausea No 01/09/25 13:34 ADVANCED REGISTERED NURSE.LMIL Vomiting No 01/09/25 13:34 ADVANCED REGISTERED NURSE.LMIL Anesthesia Postop Eval I: Fluid Summary Crystalloid volume administer 400 01/09/25 13:34 ADVANCED REGISTERED NURSE.LMIL (ml) Colloids volume administered ( ml) Blood Product volume administered (ml) Total IV fluid infused 400 01/09/25 13:34 ADVANCED REGISTERED NURSE.LMIL Anesthesia Postop Eval I: Summary Notes Anesthesia Complication No 01/09/25 13:34 ADVANCED REGISTERED NURSE.LMIL Anesthesia Complication Comment: Post-operative progress note Anesthesia: Postop Eval II Evaluation Mental status: Awake and Calm Pain Level: 0 nausea: No Vomiting: No Complications Anesthesia Complication: No 01/09/25 1639 Date Nyae Warner ADVANCED REGISTERED NURSE Cosigner Signature: Date CC: Signed Normal [facility] Mean corpuscular hemoglobin (MCH) determinationOrdered By: Hugo Alvarado on 01-09-2025 MCH (RBC) [Entitic mass] 28.0 pg 27.0-32.0 [facility] Mean corpuscular hemoglobin concentration (MCHC) determinationOrdered By: Hugo Alvarado on 01-09-2025 MCHC (RBC) [Mass/Vol] 30.9 g/dL Low 32-36 [facility] Mean platelet volume determi nationOrdered By: Hugo Alvarado on 01-09-2025 Platelet mean volume (Bld) [Entitic vol] 8.7 fL 6.2-12.0 [facility] Operative Reporton Operative Report [facility] Medical Records Department [address] [place] [address] Operative Report 01/09/25 1737 MR#: [id number] Acct: [id number] Name: ROZ BAKER Rep #: [id number] : 1950 74 From: Hugo Alvarado MD PCP: Dr. Kamron Lepe MD Status:DEP [facility] Location: [facility] Operative Report (Standard) Operative Information Date of Procedure: 01/09/25 Pre-Operative Diagnosis: End-stage renal disease with prior left stage I basilic fistula creation Post-Operative Diagnosis: Same Surgery/Procedure Performed: Stage II basilic transposition tag marker: Yes Wood Processing Worker: Karen Mack Tasks completed by hospital clinic assistant: Opening, Closing, Opening closing, Hemostasis: Tie, Hemostasis: Electrocautery and Retracting Type of Anesthesia: General RN Documented Start/Stop Times: Operation Date: 01/09/25 09:00 Case Time Into Pre-Op 01/09/25 07:14 Out of Pre-Op 01/09/25 09:52 Anesthesia Start 01/09/25 09:56 Into Room 01/09/25 09:56 Procedure Start 01/09/25 10:25 Procedure End 01/09/25 13:25 Anesthesia End 01/09/25 13:28 Out of Room 01/09/25 13:28 Into Recovery 01/09/25 13:31 Out of Recovery 01/09/25 14:59 Into Phase II Recovery 01/09/25 15:00 Out of Phase II 01/09/25 15:57 Procedure Start Time: 10:25 Procedure Stop Time: 13:25 Select all DRAINS/GRAFTS/IMPLANTS that apply: Graft Graft details: 6 mm PTFE, standard wall Estimated Blood Loss: 100 Specimen collected: No Description of surgery: HPI: Patient is a 74-year-old male with previous left stage I basilic creation which has matured in satisfactory fashion. He presents now for transposition. He has a significantly limited range of motion with his left shoulder so in order to gain adequate length of fistula to put it in a usable position and interposition graft with PTFE as planned. Description of procedure: Upon obtaining form consent and verification correct patient procedure site the patient was taken to the operating was placed under general anesthesia. He was then positioned prepped and draped in usual sterile fashion a time was performed. The basilic vein fistula was evaluated ultrasound found to be of satisfactory caliber throughout and had a high confluence with the brachial vein at the axilla. Incision was then made in longitudinal orientation over the fistula from the antecubital crease to just distal to the axilla. Bovie electrocautery was used to dissect through the subcutaneous tissue and self-retaining retractors put in position. Dissection was then carried down the fascia which was incised and self-retaining retractors moved deeper into the wound. Sharp dissection was then used to dissect free the the basilic vein throughout the length of the upper arm with care taken to identify and protect adjacent nerve and artery structures. Sidebranches were ligated with silk ties and divided and the vein marked to maintain orientation. Once the entirety of the vein was dissected free circumferentially a Straughn tunneler was used to tunnel through the subcutaneous tissue from the proximal forearm to the distal forearm overlying the bicep muscle. The patient was then heparinized allowed to circulate for 3 minutes. Atraumatic clamps were then applied first to the arterial end of the fistula followed by at the venous outflow and approaching the axilla. The vein was then divided approximately 3 cm before the distal clamp and extracted from behind the nerve plexus of the upper arm. A 6 mm PTFE graft was then anastomosed to the cut end of the fistula and ending technique with 6-0 Prolene in running fashion. After completing the suture line clamps were released and satisfactory stasis was noted at the suture line. There was brisk flow through the fistula and graft that appeared adequate for dialysis use. The proximal fistula was then again clamped and the graft secured to the tunneler and pulled through the subcutaneous space to the upper arm. The graft was then cut the length and anastomosis performed to the outflow vein using 6-0 Prolene in a running fashion. Prior to completing suture line vessels are backbled and after completing the suture line clamps removed and satisfactory stasis was noted. There is a palpable thrill throughout the fistula and into the outflow vein. Heparin was then reversed with protamine and the incision inspected for hemostasis. The incision was then closed with 2-0 Vicryl, 3-0 Vicryl, 4 Monocryl and Prineo for the skin. The patient was then awakened from anesthesia taken the recovery room with anticipated discharge to home. Surgical Findings: See above Complications Complications: No 01/09/251745 Cosigner Signature (if applicable): CC: Dr. Hugo Alvarado MD; Dr. Kamron Lepe MD Signed Normal [facility] Platelet countOrdered By: Macrelino Alvarado on 01-09-2025 Platelets (Bld) [#/Vol] 238 10*3/uL 150-450 [facility] Potassium measurement (mass/ volume)Ordered By: Hugo Alvarado on 01-09-2025 Potassium (Unsp spec) [Mass/Vol] 4.5 mmol/L 3.3-5.1 [facility] RBC Auto (Bld) [#/Vol]Ordere d By: Hugo Alvarado on 01-09-2025 RBC (Bld) [#/Vol] 3.54 10*6/uL Low 4.6-6.2 [facility] Serum creatinine measurement (mass/volume)Ordered By: Hugo Alvarado on 01-09-2025 Creatinine [Mass/Vol] 4.43 mg/dL High 0.70-1.20 [facility] Serum glucose measurement (m ass/volume)Ordered By: Hugo Alvarado on 01-09-2025 Glucose [Mass/Vol] 103 mg/dL High 70-99 [facility] Serum or plasma calcium whitney urement (mass/volume)Ordered By: Hugo Alvarado on 01-09-2025 Calcium [Mass/Vol] 9.1 mg/dL 7.6-11.0 [facility] Serum or plasma urea nitroge n measurement (mass/volume)Ordered By: Hugo Alvarado on 01-09-2025 Urea nitrogen [Mass/Vol] 42 mg/dL High 4-19 [facility] Sodium levelOrdered By: Hugo Alvarado on 01-09-2025 Sodium [Moles/Vol] 137 mmol/L 133-145 [facility] White blood cell (WBC) count Ordered By: Hugo Alvarado on 01-09-2025 WBC (Bld) [#/Vol] 6.4 10*3/uL 4.4-11.0 [facility] HEP B SURFACE AG [CCL]on Hepatitis B Surf. Ag Negative Normal Negative [facility] Comment on above: Result Comment: [facility] [address] [place] [address] Jero Wilkins III, M.D. [id number] Performed By: #### 2 68829 #### [facility],[address] [place] [address] BUNon 01-05-2025 Urea nitrogen [Mass/Vol] 15 mg/dL Normal [facility] Comment on above: Performed By: #### 2 22147 #### [facility],[address] [place] [address] Urea nitrogen [Mass/Vol] 41 mg/dL High - [facility] Comment on above: Performed By: #### 2 43818 #### [place] [address] CBC + DIFFon 01-05-2025 Baso # 0.04 x10EE3/UL Normal 0.00 - 0.10 [facility] Comment on above: Performed By: #### 2 55951 #### [facility],[address] [place] [address] Basophils/100 WBC (Bld) 0.6 % Normal 0.0 - 2.0 [facility] Comment on above: Performed By: #### 2 41612 #### [facility],[address] [place] [address] CBC + DIFF Normal [facility] Comment on above: Result Comment: CBC- COMPLETE BLOOD COUNT Performed By: #### 2 68929 #### [facility],[address] [place] [address] EO # 0.18 x10EE3/UL Normal 0.00 - 0.50 [facility] Comment on above: Performed By: #### 2 38008 #### [facility],[address] [place] [address] 95381 Eosinophils/100 WBC (Bld) 2.6 % Normal 0.0 - 7.0 [facility] Comment on above: Performed By: #### 2 53977 #### [facility],[address] [place] [address] Erythrocyte distribution width (RBC) [Ratio] 17.8 % High 12.0 - 15.6 [facility] Comment on above: Performed By: #### 2 20135 #### [facility],[address] [place] [address] Hematocrit (Bld) [Volume fraction] 31.1 % Low 40.0 - 52.0 [facility] Comment on above: Performed By: #### 2 01014 #### [facility],[address] [place] [address] Hemoglobin (Bld) [Mass/Vol] 10.3 g/dL Low 13.0 - 17.5 [facility] Comment on above: Performed By: #### 2 84222 #### [facility],[address] [place] [address] 98741 Lymph # 1.25 x10EE3/UL Normal 0.80 - 2.80 [facility] Comment on above: Performed By: #### 2 01925 #### [facility],[address] [place] [address] 89006 Lymphocytes/100 WBC (Bld) 18.1 % Low 20.0 - 45.0 [facility] Comment on above: Performed By: #### 2 49426 #### [facility],[address] [place], [place] [id number] MANUAL DIFF N/A Normal [facility] Comment on above: Performed By: #### 2 92754 #### [facility],[address] [place] [address] MCH (RBC) [Entitic mass] 29 pg Normal 27 - 33 [facility] Comment on above: Performed By: #### 2 80305 #### [facility],[address] [place] [address] MCHC 33 X10 3 Normal 32 - 36 [facility] Comment on above: Performed By: #### 2 95012 #### [facility],[address] [place] [address] MCV (RBC) [Entitic vol] 87 fL Normal 81 - 98 [facility] Comment on above: Performed By: #### 2 10639 #### [facility],[address] [place] [address] Loving # 0.67 x10EE3/UL Normal 0.20 - 1.00 [facility] Comment on above: Performed By: #### 2 45898 #### [facility],[address] [place] [address] MONOS % 9.7 % Normal 0.0 - 10.0 [facility] Comment on above: Performed By: #### 2 79065 #### [facility],[address] [place] [address] Morphology Kyle (Bld) [Interp] N/A Normal [facility] Comment on above: Performed By: #### 2 26204 #### [facility],[address] [place] [address] Neut # 4.77 x10EE3/UL Normal 1.50 - 7.10 [facility] Comment on above: Performed By: #### 2 37440 #### [facility],[address] [place] [address] Neutrophils/100 WBC (Bld) 69.0 % Normal 46.0 - 76.0 [facility] Comment on above: Performed By: #### 2 69023 #### [facility],[address] [place] [address] 31480 PLATELET 318 x10EE3/UL Normal 150 - 450 [facility] Comment on above: Performed By: #### 2 84971 #### [facility],[address] [place] [address] 71859 Platelet mean volume (Bld) [Entitic vol] 7.2 fL Normal 6.4 - 10.5 [facility] Comment on above: Result Comment: AUTO MATED DIFFERENTIAL Performed By: #### 2 91022 #### [facility],[address] [place] [address] 34885 RBC 3.57 x 10EE6/UL Low 4.50 - 6.00 [facility] Comment on above: Performed By: #### 2 21530 #### [facility],[address] [place] [address] 55166 WBC 6.9 x 10EE3/UL Normal 4.5 - 10.8 [facility] Comment on above: Performed By: #### 2 14367 #### [facility],[address] [place] [address] 45319 HBV surface Ag Ser Qlon 12-13 HBV surface Ag Ql (S) Negative Normal Negative [facility] Comment on above: Order Comment: Speci men Type: BLOOD SPECIMEN Ordering Facility: [facility] Address: [address] [place] [address] Performed By: #### 5 195-3 #### [facility] CLIA [id number] [address] [place] [address] [place] POTASSIUMon 01-05-2025 Potassium [Moles/Vol] 4.5 mmol/L Normal 3.5 - 5.1 [facility] Comment on above: Performed By: #### 2 07861 #### [facility],[address] [place] [address] 66723 CBC + DIFFon 12-29-2024 Baso # 0.04 x10EE3/UL Normal 0.00 - 0.10 [facility] Comment on above: Performed By: #### 2 93418 #### [facility],[address] [place] [address] Basophils/100 WBC (Bld) 0.5 % Normal 0.0 - 2.0 [facility] Comment on above: Performed By: #### 2 69657 #### [facility],[address] [place] [address] CBC + DIFF Normal [facility] Comment on above: Result Comment: CBC- COMPLETE BLOOD COUNT Performed By: #### 2 57311 #### [facility],[address] [place] [address] EO # 0.18 x10EE3/UL Normal 0.00 - 0.50 [facility] Comment on above: Performed By: #### 2 30989 #### [place] [address] Eosinophils/100 WBC (Bld) 2.2 % Normal 0.0 - 7.0 [facility] Comment on above: Performed By: #### 2 23577 #### [facility],[address] [place] [address] Erythrocyte distribution width (RBC) [Ratio] 17.1 % High 12.0 - 15.6 [facility] Comment on above: Performed By: #### 2 01958 #### [facility],[address] [place] [address] Hematocrit (Bld) [Volume fraction] 33.9 % Low 40.0 - 52.0 [facility] Comment on above: Performed By: #### 2 31485 #### [facility],[address] [place] [address] Hemoglobin (Bld) [Mass/Vol] 11.2 g/dL Low 13.0 - 17.5 [facility] Comment on above: Performed By: #### 2 12196 #### [facility],[address] [place] [address] Lymph # 2.18 x10EE3/UL Normal 0.80 - 2.80 [facility] Comment on above: Performed By: #### 2 10404 #### [facility],[address] [place] [address] Lymphocytes/100 WBC (Bld) 26.3 % Normal 20.0 - 45.0 [facility] Comment on above: Performed By: #### 2 67136 #### [facility],[address] [place] [address] MANUAL DIFF N/A Normal [facility] Comment on above: Performed By: #### 2 80242 #### [place] [address] MCH (RBC) [Entitic mass] 29 pg Normal 27 - 33 [facility] Comment on above: Performed By: #### 2 21982 #### [place] [address] MCHC 33 X10 3 Normal 32 - 36 [facility] Comment on above: Performed By: #### 2 54715 #### [place] [address] MCV (RBC) [Entitic vol] 89 fL Normal 81 - 98 [facility] Comment on above: Performed By: #### 2 77051 #### [facility],[address] [place] [address] Loving # 0.78 x10EE3/UL Normal 0.20 - 1.00 [facility] Comment on above: Performed By: #### 2 51142 #### [place] [address] MONOS % 9.4 % Normal 0.0 - 10.0 [facility] Comment on above: Performed By: #### 2 54801 #### [facility],[address] [place] [address] Morphology Kyle (Bld) [Interp] N/A Normal [facility] Comment on above: Performed By: #### 2 85214 #### [facility],[address] [place] [address] Neut # 5.11 x10EE3/UL Normal 1.50 - 7.10 [facility] Comment on above: Performed By: #### 2 40736 #### [facility],[address] [place] [address] Neutrophils/100 WBC (Bld) 61.7 % Normal 46.0 - 76.0 [facility] Comment on above: Performed By: #### 2 75150 #### [place] [address] PLATELET 240 x10EE3/UL Normal 150 - 450 [facility] Comment on above: Performed By: #### 2 26910 #### [place] [address] Platelet mean volume (Bld) [Entitic vol] 7.3 fL Normal 6.4 - 10.5 [facility] Comment on above: Result Comment: AUTO MATED DIFFERENTIAL Performed By: #### 2 70838 #### [facility],[address] [place] [address] RBC 3.83 x 10EE6/UL Low 4.50 - 6.00 [facility] Comment on above: Performed By: #### 2 39765 #### [facility],[address] [place] [address] WBC 8.3 x 10EE3/UL Normal 4.5 - 10.8 [facility] Comment on above: Performed By: #### 2 00115 #### [place] [address] CMP with eGFRon 12-29-2024 AGE 74 years Normal [facility] Comment on above: Performed By: #### 2 20734 #### [place] [address] Albumin [Mass/Vol] 3.0 g/dL Low 3.4 - 5.0 [facility] Comment on above: Performed By: #### 2 71218 #### [facility],[address] [place] [address] 01138 Albumin/Globulin [Mass ratio] 0.7 {ratio} Low 0.9 - 1.6 [facility] Comment on above: Performed By: #### 2 72100 #### [facility],[address] [place] [address] 53177 ALK PHOS 79 U/L Normal 46 - 116 [facility] Comment on above: Performed By: #### 2 57415 #### [facility],[address] [place] [address] 93307 ALT [Catalytic activity/Vol] 8 U/L Low 16 - 63 [facility] Comment on above: Performed By: #### 2 39383 #### [facility],[address] [place] [address] 53748 Anion gap [Moles/Vol] 15 mmol/L Normal 10 - 20 [facility] Comment on above: Performed By: #### 2 33705 #### [facility],[address] [place] [address] 37266 AST [Catalytic activity/Vol] 18 U/L Normal 15 - 37 [facility] Comment on above: Performed By: #### 2 08673 #### [facility],[address] [place] [address] 42487 B/C RATIO 12 ratio Normal 0 - 30 [facility] Comment on above: Performed By: #### 2 17003 #### [facility],[address] [place] [address] 17992 Bilirubin [Mass/Vol] 0.7 mg/dL Normal 0.2 - 1.0 [facility] Comment on above: Performed By: #### 2 07717 #### [facility],[address] [place] [address] 93276 Calcium [Mass/Vol] 8.8 mg/dL Normal 8.5 - 10.1 [facility] Comment on above: Performed By: #### 2 22234 #### [facility],[address] [place] [address] Chloride [Moles/Vol] 104 mmol/L Normal 98 - 107 [facility] Comment on above: Performed By: #### 2 26438 #### [facility],[address] [place] [address] CMP with eGFR Normal [facility] Comment on above: Result Comment: COMP REHENSIVE METABOLIC PANEL Performed By: #### 2 90014 #### [place] [address] CO2 [Moles/Vol] 26.2 mmol/L Normal 21.0 - 32.0 [facility] Comment on above: Performed By: #### 2 45268 #### [facility],[address] [place] [address] Creatinine [Mass/Vol] 4.95 mg/dL High 0.70 - 1.30 [facility] Comment on above: Performed By: #### 2 07959 #### [facility],[address] [place] [address] eGFR 12 ML/MINUTE Low 60 - 999 [facility] Comment on above: Performed By: #### 2 10867 #### [place] [address] eGFR(AA) 14 ML/MINUTE Low 60 - 999 [facility] Comment on above: Result Comment: ACCO RDING TO THE NATIONAL KIDNEY DISEASE EDUCATION PROGRAM(NKDE), A NORMAL eGFR IS A VALUE GREATER THAN OR EQUAL TO 60 ML/MIN/1.73 SQ METERS. CHRONIC KIDNEY DISEASE: <60mL/MIN/1.73 SQ METERS KIDNEY FAILURE: <15mL/MIN/1.73 SQ METERS THIS TEST SHOULD ONLY BE USED FOR PATIENTS 18 YEARS OF AGE AND OLDER. Performed By: #### 2 72674 #### [address],[place] [address] Globulin (S) [Mass/Vol] 4.3 g/dL High 1.5 - 3.8 [facility] Comment on above: Performed By: #### 2 61663 #### [facility],[address] [place] [address] 01662 Glucose [Mass/Vol] 105 mg/dL Normal 74 - 106 [facility] Comment on above: Performed By: #### 2 63651 #### [facility],[address] [place] [address] 34880 Potassium [Moles/Vol] 4.8 mmol/L Normal 3.5 - 5.1 [facility] Comment on above: Performed By: #### 2 89777 #### [facility],[address] [place] [address] 90925 Protein [Mass/Vol] 7.3 g/dL Normal 6.4 - 8.2 [facility] Comment on above: Performed By: #### 2 68486 #### [facility],[address] [place] [address] 94762 Sodium [Moles/Vol] 140 mmol/L Normal 136 - 145 [facility] Comment on above: Performed By: #### 2 61091 #### [facility],[address] [place] [address] 72540 Urea nitrogen [Mass/Vol] 59 mg/dL High 7 - 18 [facility] Comment on above: Performed By: #### 2 22624 #### [facility],[address] [place] [address] 16778 Basic metabolic 2000 panelon 12-27-2024 Anion gap [Moles/Vol] 14 mmol/L Normal 8-15 [facility] Comment on above: Order Comment: Speci men Type: BLOOD SPECIMENOrdering Facility: [facility] Address: [address] [place] [address] Performed By: #### 2 4321-2 ####[facility] [id number] [place] [address] [place] Calcium [Mass/Vol] 9.0 mg/dL Normal 8.5-10.2 [facility] Comment on above: Order Comment: Speci men Type: BLOOD SPECIMENOrdering Facility: [facility] Address: [address] [place] [address] Performed By: #### 2 4321-2 ####[facility] [id number] [place] [address] [place] Chloride [Moles/Vol] 97 mmol/L Low 98-107 [facility] Comment on above: Order Comment: Speci men Type: BLOOD SPECIMENOrdering Facility: [facility] Address: [address] [place] [address] Performed By: #### 2 4321-2 ####[facility] [id number] [place] [address] [place] CO2 [Moles/Vol] 24 mmol/L Normal 22-30 [facility] Comment on above: Order Comment: Speci men Type: BLOOD SPECIMENOrdering Facility: [facility] Address: [address] [place] [address] Performed By: #### 2 4321-2 ####[facility] [id number] [place] [address] [place] Creatinine [Mass/Vol] 5.70 mg/dL High 0.73-1.22 [facility] Comment on above: Order Comment: Speci men Type: BLOOD SPECIMENOrdering Facility: [facility] Address: [address] [place] [address] Performed By: #### 2 4321-2 ####[facility] [id number] [place] [address] [place] Creatinine and Glomerular filtration rate.predicted panel (S/P/Bld) 10 mL/min/1.73m??? Low >=60 [facility] Comment on above: Order Comment: Speci men Type: BLOOD SPECIMENOrdering Facility: [facility] Address: [address] [place] [address] Result Comment: More mated Glomerular Filtration Rate (eGFR) is calculated using the 2020 CKD-EPI creatinine equation. This equation utilizes serum creatinine, sex, and age as parameters. The creatinine assay has traceable calibration to isotope dilution-mass spectrometry. Refer to KDIGO guidelines for clinical interpretation. In patients with unstable renal function, e.g. those with acute kidney injury, the eGFR may not accurately reflect actual GFR. Performed By: #### 2 4321-2 ####[facility] [id number] [place] [address] [place] Glucose [Mass/Vol] 139 mg/dL High 74-99 [facility] Comment on above: Order Comment: Specalcides riggs Type: BLOOD SPECIMENOrdering Facility: [facility] Address: [address] [place] [address] Result Comment: The [place] Diabetes [employer] (ADA) provides guidance for cutoff values for fasting glucose and random glucose. The ADA defines fasting as no caloric intake for at least 8 hours. Fasting plasma glucose results between 100 to 125 mg/dL indicate increased risk for diabetes (prediabetes).Fasting plasma glucose results greater than or equal to 126 mg/dL meet the criteria for diagnosis of diabetes. In the absence of unequivocal hyperglycemia, results should be confirmed by repeat testing. In a patient with classic symptoms of hyperglycemia or hyperglycemic crisis, random plasma glucose results greater than or equal to 200 mg/dL meet the criteria for diagnosis of diabetes.Reference: Standards of Medical Care in Diabetes 2016, [place] [employer]. Diabetes Care. 2016.39(Suppl 1). Performed By: #### 2 4321-2 ####[facility] [id number] [place] [address] [place] Potassium [Moles/Vol] 4.5 mmol/L Normal 3.7-5.1 [facility] Comment on above: Order Comment: Elizabeth riggs Type: BLOOD SPECIMENOrdering Facility: [facility] Address: [address] [place] [id number] Performed By: #### 2 4321-2 ####[facility] [id number] [place] [address] [place] Sodium [Moles/Vol] 135 mmol/L Low 136-144 [facility] Comment on above: Order Comment: Speci men Type: BLOOD SPECIMENOrdering Facility: [facility] [facility] Address: [address] [place] [address] Performed By: #### 2 4321-2 ####[facility] [id number] [place] [address] [place] Urea nitrogen [Mass/Vol] 70 mg/dL High 9-24 [facility] Comment on above: Order Comment: Speci men Type: BLOOD SPECIMENOrdering Facility: [facility] Address: [address] [place] [address] Performed By: #### 2 4321-2 ####[facility] [id number] [place] [address] [place] CASE MANAGEMon 12-27-2024 CASE MANAGEM [facility] CASE MANAGEM [facility] CASE MANAGEM [facility] CASE MGT INIT ASSon 2024 CASE MGT INIT [facility] CBC W Auto Differential pane l (Bld)on 12-27-2024 Basophils (Bld) [#/Vol] 0.07 10*3/uL Normal <0.11 [facility] Comment on above: Order Comment: Speci men Type: BLOOD SPECIMENOrdering Facility: [facility] Address: [address] [place] [address] Performed By: #### 5 7021-8 ####[facility] [id number] [place] [address] [place] Basophils/100 WBC (Bld) 0.8 % [facility] Comment on above: Order Comment: Speci men Type: BLOOD SPECIMENOrdering Facility: [facility] Address: [address] [place] [address] Performed By: #### 5 7021-8 ####[facility] [id number] [place] [address] [place] Differential cell count method Nom (Bld) Auto [facility] Comment on above: Order Comment: Speci men Type: BLOOD SPECIMENOrdering Facility: [facility] Address: [address] [place] [address] Performed By: #### 5 7021-8 ####[facility] LABCLIA [id number] [place] [address] [place] [facility] Eosinophils (Bld) [#/Vol] 0.08 10*3/uL Normal <0.46 [facility] Comment on above: Order Comment: Speci men Type: BLOOD SPECIMENOrdering Facility: [facility] Address: [address] [place] [address] Performed By: #### 5 7021-8 ####[facility] [id number] [address] [place] Eosinophils/100 WBC (Bld) 0.9 % Normal [facility] Comment on above: Order Comment: Speci men Type: BLOOD SPECIMENOrdering Facility: [facility] Address: [address] [place] [address] Performed By: #### 5 7021-8 ####[facility] [id number] [place] [address] [place] Erythrocyte distribution width (RBC) [Ratio] 17.8 % High 11.5-15.0 [facility] Comment on above: Order Comment: Speci men Type: BLOOD SPECIMENOrdering Facility: [facility] Address: [address] [place] [address] Performed By: #### 5 7021-8 ####[facility] [id number] [place] [address] [place] Hematocrit (Bld) [Volume fraction] 31.3 % Low 39.0-51.0 [facility] Comment on above: Order Comment: Speci men Type: BLOOD SPECIMENOrdering Facility: [facility] Address: [address] [place] [address] Performed By: #### 5 7021-8 ####[facility] [id number] [address] [place] Hemoglobin (Bld) [Mass/Vol] 9.6 g/dL Low 13.0-17.0 [facility] Comment on above: Order Comment: Speci men Type: BLOOD SPECIMENOrdering Facility: [facility] Address: [address] [place] [address] Performed By: #### 5 7021-8 ####[facility] [id number] [address] Immature granulocytes (Bld) [#/Vol] 0.07 10*3/uL Normal <0.10 [facility] Comment on above: Order Comment: Speci men Type: BLOOD SPECIMENOrdering Facility: [facility] Address: [address] [place] [address] Performed By: #### 5 7021-8 ####[facility] [id number] [address] Immature granulocytes/100 WBC (Bld) 0.8 % Normal [facility] Comment on above: Order Comment: Speci men Type: BLOOD SPECIMENOrdering Facility: [facility] Address: [address] [place] [address] Performed By: #### 5 7021-8 ####[facility] [id number] [place] [address] [place] Lymphocytes (Bld) [#/Vol] 1.21 10*3/uL Normal 1.00-4.00 [facility] Comment on above: Order Comment: Speci men Type: BLOOD SPECIMENOrdering Facility: [facility] Address: [address] [place] [address] Performed By: #### 5 7021-8 ####[facility] [id number] [address] STATES [facility] Lymphocytes/100 WBC (Bld) 13.9 % Normal [facility] Comment on above: Order Comment: Speci men Type: BLOOD SPECIMENOrdering Facility: [facility] Address: [address] [place] [address] Performed By: #### 5 7021-8 ####[facility] [id number] [place] [address] [place] MCH (RBC) [Entitic mass] 27.7 pg Normal 26.0-34.0 [facility] Comment on above: Order Comment: Speci men Type: BLOOD SPECIMENOrdering Facility: [facility] Address: [address] [place] [address] Performed By: #### 5 7021-8 ####[facility] [id number] [address] STATES [facility] MCHC (RBC) [Mass/Vol] 30.7 g/dL Normal 30.5-36.0 [facility] Comment on above: Order Comment: Speci men Type: BLOOD SPECIMENOrdering Facility: [facility] Address: [address] [place] [address] Performed By: #### 5 7021-8 ####[facility] [id number] [address] MCV (RBC) [Entitic vol] 90.2 fL Normal 80.0-100.0 [facility] Comment on above: Order Comment: Speci men Type: BLOOD SPECIMENOrdering Facility: [facility] Address: [address] [place] [address] Performed By: #### 5 7021-8 ####[facility] [id number] [address] Monocytes (Bld) [#/Vol] 0.89 10*3/uL High <0.87 [facility] Comment on above: Order Comment: Speci men Type: BLOOD SPECIMENOrdering Facility: [facility] Address: [address] [place] [address] Performed By: #### 5 7021-8 ####[facility] [id number] [address] Monocytes/100 WBC (Bld) 10.2 % Normal [facility] Comment on above: Order Comment: Speci men Type: BLOOD SPECIMENOrdering Facility: [facility] Address: [address] [place] [address] Performed By: #### 5 7021-8 ####[facility] [id number] [place] [address] [place] Neutrophils (Bld) [#/Vol] 6.39 10*3/uL Normal 1.45-7.50 [facility] Comment on above: Order Comment: Speci men Type: BLOOD SPECIMENOrdering Facility: [facility] Address: [address] [place] [address] Performed By: #### 5 7021-8 ####[facility]CL[facility] [id number] [place] [address] [place] Neutrophils/100 WBC (Bld) 73.4 % Normal [facility] Comment on above: Order Comment: Speci men Type: BLOOD SPECIMENOrdering Facility: [facility] Address: [address] [place] [address] Performed By: #### 5 7021-8 ####[facility] [id number] [place] [address] [place] Nucleated RBC (Bld) [#/Vol] 10*3/uL Normal <0.01 [facility] Comment on above: Order Comment: Speci men Type: BLOOD SPECIMENOrdering Facility: [facility] Address: [address] [place] [address] Performed By: #### 5 7021-8 ####[facility] [id number] [place] [address] [place] Nucleated RBC/100 WBC (Bld) [Ratio] 0.0 /100 WBC Normal [facility] Comment on above: Order Comment: Speci men Type: BLOOD SPECIMENOrdering Facility: [facility] Address: [address] [place] [address] Performed By: #### 5 7021-8 ####[facility] [id number] [place] [address] [place] Platelet mean volume (Bld) [Entitic vol] 8.7 fL Low 9.0-12.7 [facility] Comment on above: Order Comment: Speci men Type: BLOOD SPECIMENOrdering Facility: [facility] Address: [address] [place] [address] Performed By: #### 5 7021-8 ####[facility] [id number] [place] [address] [place] Platelets (Bld) [#/Vol] 223 10*3/uL Normal 150-400 [facility] Comment on above: Order Comment: Speci men Type: BLOOD SPECIMENOrdering Facility: [facility] Address: [address] [place] [address] Performed By: #### 5 7021-8 ####[facility] [id number] [place] [address] [place] [facility] RBC (Bld) [#/Vol] 3.47 10*6/uL Low 4.20-6.00 [facility] Comment on above: Order Comment: Speci men Type: BLOOD SPECIMENOrdering Facility: [facility] Address: [address] [place] [address] Performed By: #### 5 7021-8 ####[facility] [id number] [place] [address] [place] [facility] WBC (Bld) [#/Vol] 8.71 10*3/uL Normal 3.70-11.00 [facility] Comment on above: Order Comment: Speci men Type: BLOOD SPECIMENOrdering Facility: [facility] Address: [address] [place] [address] Performed By: #### 5 7021-8 ####[facility] [id number] [place] [address] [facility] CBC panel Auto (Bld)on 12-27 Erythrocyte distribution width (RBC) [Ratio] 17.8 % High 11.5-15.0 [facility] Comment on above: Order Comment: Speci men Type: BLOOD SPECIMENOrdering Facility: [facility] Address: [address] [place] [address] Performed By: #### 5 8410-2 ####[facility] [id number] [place] [address] [facility] Hematocrit (Bld) [Volume fraction] 32.4 % Low 39.0-51.0 [facility] Comment on above: Order Comment: Speci men Type: BLOOD SPECIMENOrdering Facility: [facility] Address: [address] [place] [address] Performed By: #### 5 8410-2 ####[facility] [id number] [place] [address] [facility] Hemoglobin (Bld) [Mass/Vol] 9.8 g/dL Low 13.0-17.0 [facility] Comment on above: Order Comment: Speci men Type: BLOOD SPECIMENOrdering Facility: [facility] Address: [address] [place] [address] Performed By: #### 5 8410-2 ####[facility] [id number] [address] [place] MCH (RBC) [Entitic mass] 27.6 pg Normal 26.0-34.0 [facility] Comment on above: Order Comment: Speci men Type: BLOOD SPECIMENOrdering Facility: [facility] Address: [address] [place] [address] Performed By: #### 5 8410-2 ####[facility] [id number] [address] STATES [facility] MCHC (RBC) [Mass/Vol] 30.2 g/dL Low 30.5-36.0 [facility] Comment on above: Order Comment: Speci men Type: BLOOD SPECIMENOrdering Facility: [facility] Address: [address] [place] [address] Performed By: #### 5 8410-2 ####[facility] [id number] [address] STATES [facility] MCV (RBC) [Entitic vol] 91.3 fL Normal 80.0-100.0 [facility] Comment on above: Order Comment: Speci men Type: BLOOD SPECIMENOrdering Facility: [facility] Address: [address] [place] [address] Performed By: #### 5 8410-2 ####[facility] [id number] [place] [address] [place] Nucleated RBC (Bld) [#/Vol] 10*3/uL Normal <0.01 [facility] Comment on above: Order Comment: Speci men Type: BLOOD SPECIMENOrdering Facility: [facility] Address: [address] [place] [address] Performed By: #### 5 8410-2 ####[facility] [id number] [place] [address] [place] Platelet mean volume (Bld) [Entitic vol] 8.8 fL Low 9.0-12.7 [facility] Comment on above: Order Comment: Speci men Type: BLOOD SPECIMENOrdering Facility: [facility] Address: [address] [place] [address] Performed By: #### 5 8410-2 ####[facility] [id number] [place] [address] [place] Platelets (Bld) [#/Vol] 216 10*3/uL Normal 150-400 [facility] Comment on above: Order Comment: Speci men Type: BLOOD SPECIMENOrdering Facility: [facility] Address: [address] [place] [address] Performed By: #### 5 8410-2 ####[facility] [id number] [place] [address] [place] RBC (Bld) [#/Vol] 3.55 10*6/uL Low 4.20-6.00 [facility] Comment on above: Order Comment: Speci men Type: BLOOD SPECIMENOrdering Facility: [facility] Address: [address] [place] [address] Performed By: #### 5 8410-2 ####[facility] [id number] [place] [address] [place] WBC (Bld) [#/Vol] 7.91 10*3/uL Normal 3.70-11.00 [facility] Comment on above: Order Comment: Speci men Type: BLOOD SPECIMENOrdering Facility: [facility] Address: [address] [place] [address] Performed By: #### 5 8410-2 ####[facility] [id number] [place] [address] [place] CNDSon 12-27-2024 CNDS Normal [facility] CONSULTon 12-27-2024 CONSULT Normal [facility] Comprehensive metabolic 2000 panelon 12-27-2024 Albumin [Mass/Vol] 3.5 g/dL Low 3.9-4.9 [facility] Comment on above: Order Comment: Speci men Type: BLOOD SPECIMENOrdering Facility: [facility] Address: [address] [place] [address] Performed By: #### 1 9123-9, 2777-1, 75929-3 ####[facility] [id number] [place] [address] [place] ALP [Catalytic activity/Vol] 83 U/L Normal 38-113 [facility] Comment on above: Order Comment: Speci men Type: BLOOD SPECIMENOrdering Facility: [facility] Address: [address] [place] [address] Performed By: #### 1 9123-9, 277-, 68364-7 ####[facility] [id number] [place] [address] [place] ALT [Catalytic activity/Vol] U/L Low 10-54 [facility] Comment on above: Order Comment: Speci men Type: BLOOD SPECIMENOrdering Facility: [facility] Address: [address] [place] [address] Performed By: #### 1 9123-9, 27703-13, 96517-8 ####[facility] [id number] [place] [address] [place] Anion gap [Moles/Vol] 14 mmol/L Normal 8-15 [facility] Comment on above: Order Comment: Speci men Type: BLOOD SPECIMENOrdering Facility: [facility] Address: [address] [place] [address] Performed By: #### 1 9123-9, 2777-1, 15612-8 ####[facility] [id number] [place] [address] [place] AST [Catalytic activity/Vol] 17 U/L Normal 14-40 [facility] Comment on above: Order Comment: Speci men Type: BLOOD SPECIMENOrdering Facility: [facility] Address: [address] [place] [address] Performed By: #### 1 9123-9, 2777-1, 49367-5 ####[facility] [id number] [place] [address] [place] Bilirubin [Mass/Vol] 0.4 mg/dL Normal 0.2-1.3 [facility] Comment on above: Order Comment: Speci men Type: BLOOD SPECIMENOrdering Facility: [facility] Address: [address] [place] [address] Performed By: #### 1 9123-9, 2777, 71659-0 ####[facility] [id number] [place] [address] [place] Calcium [Mass/Vol] 9.0 mg/dL Normal 8.5-10.2 [facility] Comment on above: Order Comment: Speci men Type: BLOOD SPECIMENOrdering Facility: [facility] Address: [address] [place] [address] Performed By: #### 1 9123-9, 2777, 66154-3 ####[facility] [id number] [place] [address] [place] Chloride [Moles/Vol] 100 mmol/L Normal 98-107 [facility] Comment on above: Order Comment: Speci men Type: BLOOD SPECIMENOrdering Facility: [facility] Address: [address] [place] [address] Performed By: #### 1 9123-9, 2777-, 09069-4 ####[facility] [id number] [place] [address] [place] CO2 [Moles/Vol] 24 mmol/L Normal 22-30 [facility] Comment on above: Order Comment: Speci men Type: BLOOD SPECIMENOrdering Facility: [facility] Address: [address] [place] [id number] Performed By: #### 1 9123-9, 2777-1, 64494-8 ####[facility] [id number] [place] [address] [place] Creatinine [Mass/Vol] 6.01 mg/dL High 0.73-1.22 [facility] Comment on above: Order Comment: Specalcides men Type: BLOOD SPECIMENOrdering Facility: [facility] Address: [address] [place] [address] Performed By: #### 1 9123-9, 2777-, 33028-1 ####[facility] [id number] [place] [address] [place] Creatinine and Glomerular filtration rate.predicted panel (S/P/Bld) 9 mL/min/1.73m??? Low >=60 [facility] Comment on above: Order Comment: Elizabeth riggs Type: BLOOD SPECIMENOrdering Facility: [facility] Address: [address] [place] [address] Result Comment: More mated Glomerular Filtration Rate (eGFR) is calculated using the 2020 CKD-EPI creatinine equation. This equation utilizes serum creatinine, sex, and age as parameters. The creatinine assay has traceable calibration to isotope dilution-mass spectrometry. Refer to KDIGO guidelines for clinical interpretation. In patients with unstable renal function, e.g. those with acute kidney injury, the eGFR may not accurately reflect actual GFR. Performed By: #### 1 9123-9, 2777-, 07063-6 ####[facility] [id number] [place] [address] [place] Glucose [Mass/Vol] 133 mg/dL High 74-99 [facility] Comment on above: Order Comment: Sydnii men Type: BLOOD SPECIMENOrdering Facility: [facility] Address: [address] [place] [address] Result Comment: The [place] [employer] (ADA) provides guidance for cutoff values for fasting glucose and random glucose. The ADA defines fasting as no caloric intake for at least 8 hours. Fasting plasma glucose results between 100 to 125 mg/dL indicate increased risk for diabetes (prediabetes).Fasting plasma glucose results greater than or equal to 126 mg/dL meet the criteria for diagnosis of diabetes. In the absence of unequivocal hyperglycemia, results should be confirmed by repeat testing. In a patient with classic symptoms of hyperglycemia or hyperglycemic crisis, random plasma glucose results greater than or equal to 200 mg/dL meet the criteria for diagnosis of diabetes.Reference: Standards of Medical Care in Diabetes 2016, [place] [employer]. Diabetes Care. 2016.39(Suppl 1). Performed By: #### 1 9123-9, 2776-09, ####[facility] [id number] [place] [address] [place] Potassium [Moles/Vol] 4.6 mmol/L Normal 3.7-5.1 [facility] Comment on above: Order Comment: Elizabeth riggs Type: BLOOD SPECIMENOrdering Facility: [facility] Address: [address] [place] [address] Performed By: #### 1 9123-9, 2776-09, ####[facility] [id number] [place] [address] [place] Protein [Mass/Vol] 6.8 g/dL Normal 6.3-8.0 [facility] Comment on above: Order Comment: Elizabeth riggs Type: BLOOD SPECIMENOrdering Facility: [facility] Address: [address] [place] [address] Performed By: #### 1 9123-9, 2776-09, ####[facility] [id number] [place] [address] [place] Sodium [Moles/Vol] 138 mmol/L Normal 136-144 [facility] Comment on above: Order Comment: Elizabeth riggs Type: BLOOD SPECIMENOrdering Facility: [facility] Address: [address] [place] [address] Performed By: #### 1 9123-9, 27703-13, ####[facility] [id number] [place] [address] [place] Urea nitrogen [Mass/Vol] 73 mg/dL High 9-24 [facility] Comment on above: Order Comment: Speci men Type: BLOOD SPECIMENOrdering Facility: [facility] Address: [address] [place] [address] Performed By: #### 1 9123-9, 2777-1, 62189-4 ####[facility] [id number] [address] ED NOTEon 12-27-2024 ED NOTE HNO ID: [id number] Author: ROCKY CLARKE HUC Service: ? Author Type: ? Type: ED Notes Filed: 12/27/2024 00:50 Note Text: PAGED HOSPITALIST TO DR AHMADI'S EXT. [facility] HBV surface Ag Ser Qlon 12-12 HBV surface Ag Ql (S) Negative Normal Negative [facility] Comment on above: Order Comment: Speci men Type: BLOOD SPECIMENOrdering Facility: [facility] Address: [address] [place] [address] Performed By: #### 5 195-3 ####[facility] [id number] [address] HISTORY PHYSICALon HISTORY PHYSICAL Normal [facility] Magn[facility] Magnesium [Mass/Vol] 2.0 mg/dL Normal 1.7-2.3 [facility] Comment on above: Order Comment: Speci men Type: BLOOD SPECIMENOrdering Facility: [facility] Address: [address] [place] [address] Performed By: #### 1 9123-9, 2777-1, 47249-6 ####[facility] [id number] [address] [place] NUTRITIONon 12-27-2024 NUTRITION Normal [facility] Phosphate SerPl-mCncon 12-27 Phosphate [Mass/Vol] 5.4 mg/dL High 2.7-4.8 [facility] Comment on above: Order Comment: Speci men Type: BLOOD SPECIMENOrdering Facility: [facility] Address: [address] [place] [id number] Performed By: #### 1 9123-9, 2777-1, 38351-2 ####[facility] [id number] [place] [id number] [place] THERAPY NTon 12-27-[address] [facility] CT BRAIN WO IVCONon 12-27-19 CT BRAIN WO IVCON [facility] CT CERVICAL SPINE WO IVCONon 12-26-2024 CT CERVICAL SPINE WO IVCON [facility] CT LUMBAR SPINE WO IVCONon 0 12-26-2024 [facility] PEL[facility]THO WO IVCONon 0 12-26-2024 CT [facility] 12-26-2024 ED NOTE [facility] ED NOTE HNO ID: [id number] Author: MARSHA SIDDIQUI RN Service: Nursing Author Type: Registered Nurse Type: ED Notes Filed: 12/27/2024 01:51 Note Text: Pt has a L arm AV fistula that is new and not currently being used for dialysis. [facility] ED NOTE HNO ID: [id number] Author: MARSHA SIDDIQUI RN Service: Nursing Author Type: Registered Nurse Type: ED Notes Filed: 12/26/2024 19:18 Note Text: Received bedside report from Ivory MORALES. [facility] ED NOTE HNO ID: [id number] Author: IVORY LAN RN Service: Emergency Medicine Author Type: Registered Nurse Type: ED Notes Filed: 12/26/2024 19:16 Note Text: Report to CARMEN Larson [facility] ED NOTE [facility] ED NOTE [facility] ED PROV NOTEon 12-26-2024 ED PROV NOTE [facility] ED Triage Noteon 12-26-2024 ED Triage Note [facility] XR HIP 3V PELV+ AP/LAT LTon 12-26-2024 XR HIP 3V PELV+ AP/LAT LT [facility] XR RIB/CHST 3V AP RIB/OBL/CH ST Benjamin 12-26-2024 XR RIB/CHST 3V AP RIB/OBL/CHST L [facility] Bedside Glucoseon 12-14-2024 FINGERSTICK GLU 118 mg/dL High 74-106 [facility] Comment on above: Result Comment: LAXMI WALKER OF PATIENT CARE PER NURSING PROTOCOL Performed By: #### L 501.080 ####[facility] [id number] [place], [address] Basic metabolic 2000 panelon 12-07-2024 Anion gap [Moles/Vol] 13 mmol/L Normal 8-15 [facility] Comment on above: Order Comment: Speci men Type: BLOOD SPECIMENOrdering Facility: External Submitter Address: , , Performed By: #### 2 4321-2 ####[facility] [id number] [place] [address] [place] Calcium [Mass/Vol] 9.3 mg/dL Normal 8.5-10.2 [facility] Comment on above: Order Comment: Speci men Type: BLOOD SPECIMENOrdering Facility: External Submitter Address: , , Performed By: #### 2 4321-2 ####[facility] [id number] [place] [address] [place] Chloride [Moles/Vol] 97 mmol/L Low 98-107 [facility] Comment on above: Order Comment: Speci men Type: BLOOD SPECIMENOrdering Facility: External Submitter Address: , , Performed By: #### 2 4321-2 ####[facility] [id number] [place] [address] [place] CO2 [Moles/Vol] 26 mmol/L Normal 22-30 [facility] Comment on above: Order Comment: Speci men Type: BLOOD SPECIMENOrdering Facility: External Submitter Address: , , Performed By: #### 2 4321-2 ####[facility] [id number] [address] [place] Creatinine [Mass/Vol] 4.21 mg/dL High 0.73-1.22 [facility] Comment on above: Order Comment: Speci men Type: BLOOD SPECIMENOrdering Facility: External Submitter Address: , , Performed By: #### 2 4321-2 ####[facility] [id number] [place] [address] [place] Creatinine and Glomerular filtration rate.predicted panel (S/P/Bld) 14 mL/min/1.73m??? Low >=60 [facility] Comment on above: Order Comment: Elizabeth riggs Type: BLOOD SPECIMENOrdering Facility: External Submitter Address: , , Result Comment: More mated Glomerular Filtration Rate (eGFR) is calculated using the 2020 CKD-EPI creatinine equation. This equation utilizes serum creatinine, sex, and age as parameters. The creatinine assay has traceable calibration to isotope dilution-mass spectrometry. Refer to KDIGO guidelines for clinical interpretation. In patients with unstable renal function, e.g. those with acute kidney injury, the eGFR may not accurately reflect actual GFR. Performed By: #### 2 4321-2 ####[facility] [id number] [place] [address] [place] Glucose [Mass/Vol] 132 mg/dL High 74-99 [facility] Comment on above: Order Comment: Elizabeth riggs Type: BLOOD SPECIMENOrdering Facility: External Submitter Address: , , Result Comment: The [place] Diabetes Association (ADA) provides guidance for cutoff values for fasting glucose and random glucose. The ADA defines fasting as no caloric intake for at least 8 hours. Fasting plasma glucose results between 100 to 125 mg/dL indicate increased risk for diabetes (prediabetes).Fasting plasma glucose results greater than or equal to 126 mg/dL meet the criteria for diagnosis of diabetes. In the absence of unequivocal hyperglycemia, results should be confirmed by repeat testing. In a patient with classic symptoms of hyperglycemia or hyperglycemic crisis, random plasma glucose results greater than or equal to 200 mg/dL meet the criteria for diagnosis of diabetes.Reference: Standards of Medical Care in Diabetes 2016, [place] [employer]. Diabetes Care. 2016.39(Suppl 1). Performed By: #### 2 4321-2 ####[facility] [id number] [place] [address] [place] Potassium [Moles/Vol] 4.4 mmol/L Normal 3.7-5.1 [facility] Comment on above: Order Comment: Elizabeth riggs Type: BLOOD SPECIMENOrdering Facility: External Submitter Address: , , Performed By: #### 2 4321-2 ####[facility] [id number] [address] [place] Sodium [Moles/Vol] 136 mmol/L Normal 136-144 [facility] Comment on above: Order Comment: Speci men Type: BLOOD SPECIMENOrdering Facility: External Submitter Address: , , Performed By: #### 2 4321-2 ####[facility] [id number] [address] STATES [facility] Urea nitrogen [Mass/Vol] 37 mg/dL High 9-24 [facility] Comment on above: Order Comment: Speci men Type: BLOOD SPECIMENOrdering Facility: External Submitter Address: , , Performed By: #### 2 4321-2 ####[facility] [id number] [address] [place] CBC panel Auto (Bld)on 12-07 Erythrocyte distribution width (RBC) [Ratio] 17.3 % High 11.5-15.0 [facility] Comment on above: Order Comment: Speci men Type: BLOOD SPECIMENOrdering Facility: External Submitter Address: , , Performed By: #### 5 8410-2 ####[facility] [id number] [address] [place] Hematocrit (Bld) [Volume fraction] 35.9 % Low 39.0-51.0 [facility] Comment on above: Order Comment: Speci men Type: BLOOD SPECIMENOrdering Facility: External Submitter Address: , , Performed By: #### 5 8410-2 ####[facility] [id number] [address] [place] Hemoglobin (Bld) [Mass/Vol] 10.8 g/dL Low 13.0-17.0 [facility] Comment on above: Order Comment: Speci men Type: BLOOD SPECIMENOrdering Facility: External Submitter Address: , , Performed By: #### 5 8410-2 ####[facility] [id number] [address] MCH (RBC) [Entitic mass] 27.3 pg Normal 26.0-34.0 [facility] Comment on above: Order Comment: Speci men Type: BLOOD SPECIMENOrdering Facility: External Submitter Address: , , Performed By: #### 5 8410-2 ####[facility] [id number] [address] MCHC (RBC) [Mass/Vol] 30.1 g/dL Low 30.5-36.0 [facility] Comment on above: Order Comment: Speci men Type: BLOOD SPECIMENOrdering Facility: External Submitter Address: , , Performed By: #### 5 8410-2 ####[facility] [id number] [address] MCV (RBC) [Entitic vol] 90.9 fL Normal 80.0-100.0 [facility] Comment on above: Order Comment: Speci men Type: BLOOD SPECIMENOrdering Facility: External Submitter Address: , , Performed By: #### 5 8410-2 ####[facility] [id number] [address] Nucleated RBC (Bld) [#/Vol] 10*3/uL Normal <0.01 [facility] Comment on above: Order Comment: Speci men Type: BLOOD SPECIMENOrdering Facility: External Submitter Address: , , Performed By: #### 5 8410-2 ####[facility] [id number] [address] Platelet mean volume (Bld) [Entitic vol] 9.1 fL Normal 9.0-12.7 [facility] Comment on above: Order Comment: Speci men Type: BLOOD SPECIMENOrdering Facility: External Submitter Address: , , Performed By: #### 5 8410-2 ####[facility] [id number] [address] Platelets (Bld) [#/Vol] 240 10*3/uL Normal 150-400 [facility] Comment on above: Order Comment: Speci men Type: BLOOD SPECIMENOrdering Facility: External Submitter Address: , , Performed By: #### 5 8410-2 ####[facility] [id number] [address] RBC (Bld) [#/Vol] 3.95 10*6/uL Low 4.20-6.00 [facility] Comment on above: Order Comment: Speci men Type: BLOOD SPECIMENOrdering Facility: External Submitter Address: , , Performed By: #### 5 8410-2 ####[facility] [id number] [address] WBC (Bld) [#/Vol] 6.79 10*3/uL Normal 3.70-11.00 [facility] Comment on above: Order Comment: Speci men Type: BLOOD SPECIMENOrdering Facility: External Submitter Address: , , Performed By: #### 5 8410-2 ####[facility] [id number] [address] MR/PATJoe 11-20-2024 MR/PATSHRUTI [facility] Medical Records Department [address] [place] [address] PAT - Anesthesia 11/20/24 1316 MR#: [id number] Acct: [id number] Name: ROZ BAKER Rep #: [id number] : 1950 74 From: Waqar Rausch MD PCP: Dr. 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 When Was Last Pacemaker Check QUESTION #4 FULL TEXT: You/Your Family Experience fever (hyperthermia) with Anesthesia Last Oral Intake Last Oral intake: Last Oral Intake NPO since Meds taken in AM with sips of water? 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 Has anyone observed you stop No 11/20/24 11:15 breathing during sleep? STOP Results Positive 11/20/24 11:15 QUESTION #5 FULL TEXT : Do you snore loudly (louder than talking or can be heard through closed doors)? 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 Specify any problems Hx of Preganancy in last 3 N/A 11/20/24 11:15 Months Nurse Filling Out Transfusion DSCHRIBER 11/20/24 11:15 Questions: Date: 11/20/24 11/20/24 11:15 Time: 11:17 11/20/24 11:15 Patient unable to answer at this time (ie. 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 Hx Now No 11/20/24 11:15 Gestational Age (in weeks): EDC: Hx Hx Para Hx Section SAB No 11/20/24 11:15 [facility] Medical History (Updated 11/20/24 @ 11:26 by Marsha Acuña) Wears glasses Alcohol use Ambulates with cane Gout Arthritis Low iron Easy bruising Back pain Dietary restriction Former smoker Shortness of breath on exertion Insulin dependent diabetes mellitus History of pain when walking History of edema History of echocardiogram Cardiology follow-up encounter History of atrial fibrillation History of GI bleed History of renal dialysis History of hemodialysis CHF (congestive heart failure) Peptic ulcer Hypertension Diabetes ESRD (end stage renal disease) Home Medications ???Medication ???Instructions ???Recorded ???Last Taken ???Type furosemide 20 mg tablet (Lasix) 20 mg PO DAILY 08/21/24 09/11/24 H istory vitamin B complex and vitamin C 1 cap PO QDAY 08/21/24 09/11/24 Hi story no.20-folic acid 1 mg capsule (Renal Caps) (more content not included)... Normal [facility] Surgery Visit Reporton 11-16 Surgery Visit Report [facility] [address] [place] [address] OFFICE VISIT Date of Service: 11/16/24 MR#: [id number] Acct: [id number] Name: ROZ BAKER Rep #: [id number] : 1950 Provider: Dr. Hugo Alvarado MD Age/Sex: 74/M Location: [facility] Status: Signed Intake Vital Signs 09/12/24 06:50 11/16/24 13:03 Height 5 ft 10 in Weight: 198 lb BP 142/59 H Blood Pressure Location Rt brachial Position Sitting Respiration 16 Pulse 80 Pulse Source Monitor Temp 98.2 F Temp Source Temporal Pulse Oximetry (%) 97 Oxygen Delivery Method room air Intake Visit Reasons: 6-8 WK FU Chief Complaint: post op Is patient in pain?: No Allergies codeine Allergy (Severe, Verified 11/16/24 13:04) Vomiting Medications ???Medication ???Instructions ???Recorded ???Confirmed ???Type furosemide 20 mg tablet (Lasix) 20 mg PO BID 08/21/24 11/16/24 His tory vitamin B complex and vitamin C 1 cap PO QDAY 08/21/24 11/16/24 Hi story no.20-folic acid 1 mg capsule (Renal Caps) allopurinol 100 mg tablet 100 mg PO DAILY 08/29/24 11/16/24 History apixaban 5 mg tablet (Eliquis) 5 mg PO BID 08/29/24 11/16/24 Hist ory Held on 09/12/24. Instructions: Resume on 09/14/24. isosorbide mononitrate 30 mg 60 mg PO DAILY 08/29/24 11/16/24 H istory tablet,extended release 24 hr famotidine 20 mg tablet 20 mg PO BID 09/12/24 11/16/24 His tory hydralazine 50 mg tablet 75 mg PO TID 09/12/24 11/16/24 His tory oxycodone 5 mg tablet 5 mg PO Q8H PRN pain 2 days #6 tab s 09/12/24 11/16/24 Rx pantoprazole 40 mg tablet,delayed 40 mg PO DAILY 09/12/24 11/16/24 History release (Protonix) Have you fallen in the past year?: No Subjective Details: Doing well. No hand pain/numbness/weakness. Digits still feel cold, get pale when exposed to cold air. Objective Details: A O x3, NAD RRR Resp non labored +radial pulse, +thrill Coding Level of Care Code Global Post Op Diagnoses ESRD (end stage renal disease) on dialysis N18.6; Z99.2 [facility] Medical History Open wound Wears glasses Alcohol use Ambulates with cane Gout Arthritis Low iron Easy bruising Back pain Dietary restriction Former smoker Shortness of breath on exertion Insulin dependent diabetes mellitus History of pain when walking History of edema History of echocardiogram Cardiology follow-up encounter History of atrial fibrillation History of GI bleed History of renal dialysis History of hemodialysis CHF (congestive heart failure) Peptic ulcer Hypertension Diabetes ESRD (end stage renal disease) Surgical History Hx of colonoscopy History of esophagogastroduodenoscopy (EGD) Hx of cholecystectomy History of ankle surgery Social History Smoking Status: Former smoker Tobacco: How many years used: 30 how long ago did patient quit smokin yrs Assessment and Plan (No Qualifiers) Assessment and Plan (1) ESRD (end stage renal disease) on dialysis: Status: Chronic Plan: -prior stage I basilic has matured -plan transposition; given limited shoulder mobility will likely need to extend length of vein with piece of graft 11/16/24 1324 Date Hugo Alvarado MD Cosigner Signature: Date (if applicable) CC: [facility] IR TUNNELED HD EXCHANGEon IR TUNNELED HD EXCHANGE ORIGINAL EXAMINATION: TUNNELED CATHETER EXCHANGE WITH FLUOROSCOPY:11/02/2024 8:48 am HISTORY: ORDERING SYSTEM PROVIDED HISTORY: Reason for Exam: poor functioning perm cath, CAESAR COMPARISON:[04/13/2024] EXISTING ACCESS SITE: Right internal jugular vein ANESTHESIA: Local MATERIALS: 27 cm cuff to tip; 14.5 Fr x 32 cm Medcomp Hemoflow dialysis catheter 2-0 prolene suture 0.035 Amplatz wire FLUOROSCOPY: 39 seconds Total Air Kerma Dose: 7.49 mGy. PROCEDURE: The procedure, risks, limitations, and alternatives were discussed. All questions were answered. Written informed consent obtained. Accompanying paperwork was verified for accuracy. Directed history and physical exam performed prior to the procedure. Medication reconciliation was performed by nursing personnel. Procedure was performed using a cap, sterile gown, sterile gloves, a large sterile sheet, hand hygiene and hospital-approved cutaneous antisepsis. The patient was positioned supine on the angiographic table and prepped and draped in usual sterile fashion. A critical pause was performed with assisting personnel just prior to the procedure with the patient's identity confirmed using 2 identifiers, confirming site and side. A wire was placed through the existing catheter into the IVC. After administration of lidocaine, the cuff was freed up with blunt dissection. The old catheter was exchanged for a new catheter over the wire. The cuff is located adjacent to the catheter site in the upper chest to facilitate easier removal in the future. Both lumens aspirate and flush very quickly. Both lumens were flushed with saline. Sterile caps attached. Fluoroscopy demonstrates the catheter tip in the upper right atrium. A documentation fluoroscopic image obtained. The catheter was fixed to the skin with suture. A sterile dressing was applied. COMPLICATIONS: None. EBL: 10 mL PATIENT CONDITION: Stable, unchanged. None IMPRESSION: 1. Successful uncomplicated exchange of a tunneled hemodialysis catheter with the tip in the upper right atrium. The procedure was performed by Nora Dutta, Physician Ladle Liner Helper. I concur with the contents of the report. Interpreted by: Gavino Bertrand DO Preliminary Report By: Nora Dutta PA-C Electronically signed By Gavino Bertrand DO Dictated Date: 11/02/2024 9:08:57 AM Prelim Date: 11/02/2024 3:54:30 PM Sign Date: 11/02/2024 4:21:35 PM Ordering Provider: CINDY FALCON [facility] MAIN CNOVon 10-05-2024 CNOV [facility] ECG COMPLETEon 10-05-2024 ECG COMPLETE [facility] Surgery Visit Reporton 09-28 Surgery Visit Report [facility] [address] [place], [place] [address]. [address] [place] [address] OFFICE VISIT Date of Service: 09/28/24 MR#: [id number] Acct: [id number] Name: ROZ BAKER Rep #: [id number] : 1950 Provider: LORI Ayala Age/Sex: 74/M Location: [facility] Status: Signed Intake Vital Signs 09/12/24 06:50 09/28/24 09:54 Height 5 ft 10 in Weight: 192 lb BP 121/65 H Blood Pressure Location Rt brachial Position Sitting Respiration 16 Pulse 75 Pulse Source Monitor Temp 98 F Temp Source Temporal Pulse Oximetry (%) 95 Oxygen Delivery Method room air Intake Visit Reasons: Post-op fistula creation 2 WK FU Is patient in pain?: Yes Allergies codeine Allergy (Severe, Verified 09/28/24 09:55) Vomiting Have you fallen in the past year?: Yes Subjective Details: Mr. Roz Baker presents to the office today for initial follow-up 2 weeks s/p L stage I basilic fistula creation on 09/12/24. He reports he has been doing very well since the procedure. He reports his hand feels like it gets subjectively cold a bit faster than it used to but otherwise denies any new pain, numbness, weakness into the L hand. He denies any pain, drainage, or redness associated with the incision. He receives dialysis MWF at [facility] via his R IJ tunneled catheter, reports this has been going well. Objective Details: A Ox3, NAD RRR Nonlabored respirations, able to speak in complete sentences LUE incision site is well-healed, there are a couple pieces of skin glue still partially adhered. No surrounding erythema, excess warmth, or edema. LUE AVF with good thrill and bruit from wrist to axilla Palpable L ulnar and radial pulses, L hand is appropriately warm and pink with motor and sensory function intact Coding Level of Care Code Global Post Op Diagnoses AV fistula I77.0 ESRD (end stage renal disease) on dialysis N18.6; Z99.2 [facility] Medical History Open wound Wears glasses Alcohol use Ambulates with cane Gout Arthritis Low iron Easy bruising Back pain Dietary restriction Former smoker Shortness of breath on exertion Insulin dependent diabetes mellitus History of pain when walking History of edema History of echocardiogram Cardiology follow-up encounter History of atrial fibrillation History of GI bleed History of renal dialysis History of hemodialysis CHF (congestive heart failure) Peptic ulcer Hypertension Diabetes ESRD (end stage renal disease) Surgical History Hx of colonoscopy History of esophagogastroduodenoscopy (EGD) Hx of cholecystectomy History of ankle surgery Social History Smoking Status: Former smoker Tobacco: How many years used: 30 how long ago did patient quit smokin yrs Assessment and Plan (No Qualifiers) Assessment and Plan (1) AV fistula: Status: Acute (2) ESRD (end stage renal disease) on dialysis: Status: Chronic Plan Fistula appears to be maturing well, no signs/symptoms of steal syndrome. Will plan for follow-up in 6-[address] Alvarado to reassess prior to stage II transposition. Will proceed with scheduling stage II transposition in approximately 10 weeks. Return sooner as needed. 09/28/24 1445 Date Lilia SANDOVAL 09/28/24 1504 Cosigner Signature: Date (if applicable) Hugo Alvarado MD CC: Normal [facility] Basic Metabolic Profile (BMP )on 09-12-2024 BUN/CRE 10.6 RATIO Normal 10-20 [facility] Comment on above: Performed By: #### L 100.0500, L500.2500 ####[facility] [id number] [place], [address] CA,Total 9.1 mg/dL Normal 8.5-10.1 [facility] Comment on above: Performed By: #### L 100.0500, L500.2500 ####[facility] [id number] [place], [address] Chloride [Moles/Vol] 102 mmol/L Normal 98-107 [facility] Comment on above: Performed By: #### L 100.0500, L500.2500 ####[facility] [id number] [place], [address] CO2 [Moles/Vol] 29.0 mmol/L Normal 21.0-32.0 [facility] Comment on above: Performed By: #### L 100.0500, L500.2500 ####[facility] [id number] [place], [address] Creatinine [Mass/Vol] 3.88 mg/dL High 0.70-1.30 [facility] Comment on above: Result Comment: The validity of the calculated GFR GFRAA in patients over 70 years has not been determined. Clinical correlation is essential. Performed By: #### L 100.0500, L500.2500 ####[facility] [address] [place], [address] ECRCL 19.33 ml/min Normal [facility] Comment on above: Performed By: #### L 100.0500, L500.2500 ####[facility] [address] [place], [address] EST GFR - AA 20 mL/min Low >60 [facility] Comment on above: Result Comment: Afri can Estonian GFR Calc Performed By: #### L 100.0500, L500.2500 ####[facility] [address] [place], [address] GAP 5 Normal 5-15 [facility] Comment on above: Performed By: #### L 100.0500, L500.2500 ####[facility] [address] [place], [address] GFR/1.73 sq M.predicted among non-blacks MDRD (S/P/Bld) [Vol rate/Area] 16 mL/min/{1.73_m2} Low >60 [facility] Comment on above: Result Comment: Non- GFR Calc Performed By: #### L 100.0500, L500.2500 ####[facility] [address] [place], [address] Glucose [Mass/Vol] 117 mg/dL High 74-106 [facility] Comment on above: Result Comment: Fast ing Glucose result from 100 to 125 mg/dL suggests IMPAIRED HOMEOSTASIS per A.D.A. criteria. Performed By: #### L 100.0500, L500.2500 ####[facility] [address] [place], [address] Potassium [Moles/Vol] 4.3 mmol/L Normal 3.5-5.1 [facility] Comment on above: Performed By: #### L 100.0500, L500.2500 ####[facility] [address] [place], [address] Sodium [Moles/Vol] 136 mmol/L Normal 136-145 [facility] Comment on above: Performed By: #### L 100.0500, L500.2500 ####[facility] [address] [place], [address] Urea nitrogen [Mass/Vol] 41 mg/dL High 7-18 [facility] Comment on above: Performed By: #### L 100.0500, L500.2500 ####[facility] [address] [place], [address] Bedside Glucoseon 09-12-2024 FINGERSTICK GLU 115 mg/dL High 74-106 [facility] Comment on above: Result Comment: LAXMI WALKER OF PATIENT CARE PER NURSING PROTOCOL Performed By: #### L 501.080 #### [facility] [address] [place], [address] CBC-Complete Blood Cnt No Di ffon 09-12-2024 Erythrocyte distribution width (RBC) [Ratio] 18.6 % High 11.6-14.6 [facility] Comment on above: Performed By: #### L 100.0500, L500.2500 #### [facility] [address] [place], [address] Hematocrit (Bld) [Volume fraction] 37.6 % Low 40-54 [facility] Comment on above: Performed By: #### L 100.0500, L500.2500 #### [facility] [address] [place], [address] Hemoglobin (Bld) [Mass/Vol] 11.2 g/dL Low 13.0-16.5 [facility] Comment on above: Performed By: #### L 100.0500, L500.2500 #### [facility] [address] [place], [address] MCH (RBC) [Entitic mass] 26.1 pg Low 27.0-32.0 [facility] Comment on above: Performed By: #### L 100.0500, L500.2500 #### [facility] [address] [place], [address] MCHC (RBC) [Mass/Vol] 29.8 g/dL Low 32-36 [facility] Comment on above: Performed By: #### L 100.0500, L500.2500 #### [facility] [address] [place], [address] MCV (RBC) [Entitic vol] 87.6 fL Normal 80-94 [facility] Comment on above: Performed By: #### L 100.0500, L500.2500 #### [facility] [address] [place], [address] Platelet mean volume (Bld) [Entitic vol] 8.9 fL Normal 6.2-12.0 [facility] Comment on above: Performed By: #### L 100.0500, L500.2500 #### [facility] [address] [place], [address] Platelets (Bld) [#/Vol] 238 10*3/uL Normal 150-450 [facility] Comment on above: Performed By: #### L 100.0500, L500.2500 #### [facility] [address] [place], [address] RBC (Bld) [#/Vol] 4.29 10*6/uL Low 4.6-6.2 [facility] Comment on above: Performed By: #### L 100.0500, L500.2500 #### [facility] [address] [place], [address] RDW SD 59.5 fl High 35.1-43.9 [facility] Comment on above: Performed By: #### L 100.0500, L500.2500 #### [facility] [address] [place], [address] WBC (Bld) [#/Vol] 6.3 10*3/uL Normal 4.4-11.0 [facility] Comment on above: Performed By: #### L 100.0500, L500.2500 #### [facility] [address] [place], [address] Discharge Instructionon 08-15 Discharge Instruction [facility] Medical Records Department [address] [place] [address] Instructions for Home/Discharge Instructions 09/12/24 0854 MR#: [id number] Acct: [id number] Name: ROZ BAKER Rep #: [id number] : 1950 74 From: Hugo Alvarado MD PCP: Dr. Kamron Lepe MD Status:REG [facility] Discharge Instructions Diet Discharge Diet: No restrictions Activity Lifting Restrictions: do not lift > 20 lbs with left arm for 14 days Additional Activity Instructions:: do not submerge incision for 14 days Dressing / Incision Call your doctor if your incision/area has: Sudden Increased Bleeding, Increased Pain/ Swelling, Increased Redness and Foul Smelling Discharge Call your doctor if you observe: Fever of 101 or Higher, Coldness, Increased Pain and Numbness or Tingling Remove Dressing in: 2 days Cleanse incision/area with: Soap Water Follow Up Care Test Results: Test results from this visit will be discussed in further detail at your follow-up appointment, if applicable. Discharge Plan Admission Attending Provider: Hugo Alvarado Primary Care Provider: Kamron Lepe Instructions Print Language: Cymraes Discharge Orders/Prescriptions Prescriptions: New oxycodone 5 mg tablet 5 mg PO Q8H PRN (Reason: pain) 2 Days Qty: 6 0RF Continued Renal Caps 1 mg capsule 1 cap PO QDAY furosemide [Lasix] 20 mg tablet 20 mg PO BID isosorbide mononitrate 30 mg tablet extended release 24 hr 60 mg PO DAILY allopurinol 100 mg tablet 100 mg PO DAILY pantoprazole [Protonix] 40 mg tablet,delayed release (DR/EC) 40 mg PO DAILY hydralazine 50 mg tablet 75 mg PO TID famotidine 20 mg tablet 20 mg PO BID Held Eliquis 5 mg tablet 5 mg PO BID Hold Instructions: Resume on 09/14/24. Referrals / Follow Up: Kamron Lepe MD [Primary Care Provider] - Disposition Disposition (needs filled in before D/C Order can be placed): Home, Self Care 09/12/24 0857 Hugo Alvarado MD CC: Dr. Kamron Lepe MD Signed [facility] MR/POSTOP.[facility] 09-12-2024 MR/POSTOP.[facility] Medical Records Department [address] [place] [address] Anesthesia Postop Eval I 09/12/24916 MR#: [id number] Acct: [id number] Name: ROZ BAKER Rep #: [id number] : 1950 74 From: Arslan Dinero CRNA PCP: Dr. Kamron Lepe MD Status:REG SDC Y Race: C Location: [place] [address] Anesthesia: Postop Eval I Current Vital Signs Temperature: 97.5 F Pulse Rate: 76 Blood Pressure: 127/70 Respiratory Rate: 16 Pulse Ox: 94 Oxygen Delivery Method: Room Air Assessment Airway patent: Yes Spontaneous unlabored respirations: Yes Mental status: Awake and Calm nausea: No Vomiting: No Anesthesia Complication: No Fluid Hydration Crystalloid volume administer (ml): 200 Total IV fluid infused: 200 Progress Note Anesthesia document: Postop Eval 1 completed: Yes 09/12/24918 Date Arslan Blojacinto ADVANCED REGISTERED NURSE Cosigner Signature: Date CC: Signed Normal [facility] MR/QYBUBCCF1mt 09-12-2024 [facility] Medical Records Department [address] [place] [address] Anesthesia Postop Eval II 09/12/24 1531 MR#: [id number] Acct: [id number] Name: ROZ BAKER Rep #: [id number] : 1950 74 From: Waqar Rausch MD PCP: Dr. Kamron Lepe MD Status:[facility] Y Race: C Location: [facility] Anesthesia Postop Eval I Sum Postop Eval Completion status Anesthesia document: Postop Eval 1 completed: Yes Anesthesia Postop Eval I Summary Anesthesia Postop Eval I Summary: Anesthesia Postop Eval I: Assessment Summary Airway patent Yes 09/12/24 09:19 ADVANCED REGISTERED NURSE.JBLOU Spontaneous unlabored Yes 09/12/24 09:19 ADVANCED REGISTERED NURSE.JBLOU respirations Mental status Awake,Calm 09/12/24 09:19 ADVANCED REGISTERED NURSE.JBLOU nausea No 09/12/24 09:19 ADVANCED REGISTERED NURSE.JBLOU Vomiting No 09/12/24 09:19 ADVANCED REGISTERED NURSE.JBLOU Anesthesia Postop Eval I: Fluid Summary Crystalloid volume administer 200 09/12/24 09:19 ADVANCED REGISTERED NURSE.JBLOU (ml) Colloids volume administered ( ml) Blood Product volume administered (ml) Total IV fluid infused 200 09/12/24 09:19 ADVANCED REGISTERED NURSE.JOANN Anesthesia Postop Eval I: Summary Notes Anesthesia Complication No 09/12/24 09:19 ADVANCED REGISTERED NURSE.JBLOU Anesthesia Complication Comment: Post-operative progress note Anesthesia: Postop Eval II Evaluation Mental status: Awake Pain Level: 0 nausea: No Vomiting: No 09/12/24 1531 Date Waqar Butt Signature: Date CC: Signed Normal [facility] Operative Reporton 4 Operative Report [facility] Medical Records Department [address] [place] [address] Operative Report 09/12/24 0857 MR#: [id number] Acct: [id number] Name: ROZ BAKER Rep #: [id number] : 1950 74 From: Hugo Alvarado MD PCP: Dr. Kamron Lepe MD Status:[facility] Location: [facility] Operative Report (Standard) Operative Information Date of Procedure: 09/12/24 Pre-Operative Diagnosis: ESRD Post-Operative Diagnosis: same Surgery/Procedure Performed: left stage I basilic fistula creation tag marker: Yes Wood Processing Worker: Clementina Torres Tasks completed by hospital clinic assistant: Opening, Closing, Opening closing, Dissecting tissue, Altering tissue, Hemostasis: Tie and Retracting Type of Anesthesia: Local MAC, Local and MAC RN Documented Start/Stop Times: Operation Date: 09/12/24 07:30 Case Time Into Pre-Op 09/12/24 06:08 Out of Pre-Op 09/12/24 07:38 Anesthesia Start 09/12/24 07:43 Into Room 09/12/24 07:43 Procedure Start 09/12/24 08:05 Procedure End 09/12/24 09:02 Into Recovery 09/12/24 09:05 Anesthesia End 09/12/24 09:06 Out of Room 09/12/24 09:06 Into Phase II Recovery 09/12/24 09:26 Out of Recovery 09/12/24 09:26 Out of Phase II 09/12/24 10:06 Procedure Start Time: 08:05 Procedure Stop Time: 09:00 Select all DRAINS/GRAFTS/IMPLANTS that apply: None Estimated Blood Loss: 15 Specimen collected: No Description of surgery: HPI: Patient is a 74-year-old male with end-stage renal disease currently on dialysis. He had venous duplex mapping which revealed satisfactory left upper arm basilic vein for [place] fistula creation. He presents now for stage I basilic fistula. Description of procedure: Upon obtaining form consent and verification correct patient procedure site patient taken the operating where he was positioned prepped and draped in usual sterile fashion. Timeouts performed and sedation administered by anesthesia. Ultrasound was used to evaluate the basilic vein and its position relative to the brachial artery. The median cubital branch was of satisfactory caliber as well as the superintendent vein in close proximity to the brachial artery distal to the antecubital crease. Skin overlying the vessel was anesthetized 1% lidocaine and transverse incision made with a 15 blade. Bovie electrocautery was used to dissect down through the subcutaneous tissue and self-retaining retractors put in position. Further dissection was carried down until the vein was visualized which point sharp dissection was dissected free proximal and distal and a right angle was placed vessel loop. Sidebranches were ligated with silk ties and divided and we then turned our attention to the arterial exposure. Bovie was utilized to dissect down to the level the fascia which was then incised in a cruciate configuration exposing the brachial artery. Self-retaining retractors were then moved deeper in the wound and sharp dissection used to dissect free and the vessel proximal and distal with care taken to identify and protect adjacent nerve and vein structures. A writing was replaced vessel loop proximal and distal and the patient was in heparinized allowed to circulate for 3 minutes. The vein was then marked to maintain orientation and ligated distally and divided. It was then dilated up to 3.5millimeters and flushed with heparinized saline. The brachial arteries and occluded with Vesseloops and longitudinal arteriotomy created with 11 blade and extended with Brown scissors. The vein was then beveled to match the arteriotomy and anastomosis performed with a 6-0 Prolene in a running fashion. Prior to completing the suture line vessels were backbled and after completing the suture line clamps were removed with satisfactory stasis noted. There is a palpable thrill in the outflow fistula and palpable radial pulse remained at the wrist. Heparin was then reversed with protamine the incision inspected hemostasis. We then closed with 3-0 Vicryl followed by 4 Monocryl and Dermabond for the skin. The patient was then taken to the recovery room with anticipated discharge to home. Surgical Findings: see above Complications Complications: No 09/12/24 1622 Cosigner Signature (if applicable): CC: Dr. Hugo Alvarado MD; Dr. Kamron Lepe MD Signed [facility] MR/PAT.[facility] 08-29-2024 MR/PAT.[facility] Medical Records Department [address] [address] PAT - Anesthesia 08/29/24 1846 MR#: [id number] Acct: [id number] Name: ROZ BAKER Rep #: [id number] : 1950 74 From: Waqar Rausch MD PCP: Dr. 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 When Was Last Pacemaker Check QUESTION #4 FULL TEXT: You/Your Family Experience fever (hyperthermia) with Anesthesia Last Oral Intake Last Oral intake: Last Oral Intake NPO since Meds taken in AM with sips of water? 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 Female No 08/29/24 11:42 HX of Motion Sickness No 08/29/24 11:42 HX of N/V After Surgery No 08/29/24 11:42 Non-Smoker Yes 08/29/24 11:42 Duration of Surgery greater Yes 08/29/24 11:42 than 60 minutes Number of Risk Factors 2 08/29/24 11:42 PONV Score Moderate Risk 08/29/24 11:42 Respiratory Assessment Respiratory Assessment - cooperage shop supervisor: Respiratory Tract Infection Hx - cooperage shop supervisor Hx Respiratory Tract Infection No 08/29/24 11:42 STOP Sleep Apnea STOP Sleep Apnea - cooperage shop supervisor: STOP Sleep Apnea - 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 Has anyone observed you stop No 08/29/24 11:42 breathing during sleep? STOP Results Positive 08/29/24 11:42 QUESTION #5 FULL TEXT : Do you snore loudly (louder than talking or can be heard through closed doors)? 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 Hx Now No 08/29/24 11:42 Gestational Age (in weeks): EDC: Hx Hx Para Hx Section SAB No 08/29/24 11:42 PFS Medical History (Updated 08/29/24 @ 12:00 by Marsha Acuña) Open wound Wears glasses Alcohol use Ambulates with cane Gout Arthritis Low iron Easy bruising Back pain Dietary restriction Former smoker Shortness of breath on exertion Insulin dependent diabetes mellitus History of pain when walking History of edema History of echocardiogram Cardiology follow-up encounter History of atrial fibrillation History of GI bleed History of renal dialysis History of hemodialysis CHF (congestive heart failure) Peptic ulcer Hypertension Diabetes ESRD (end stage renal disease) Home Medications ???Medication ???Instructions ???Recorded ???Last Taken ???Type furosemide 20 mg tablet (Lasix) 20 mg PO BID 08/21/24 Unknown History hydrochlorothiazide 50 mg tablet 100 mg PO BID 08/21/24 Unknown History vitamin B complex and vitamin C 1 cap PO QDAY 08/21/24 Unknown History no.20-folic acid 1 mg capsule (Renal Caps) all (more content not included)... Normal [facility] MR/BMSYani 08-21-2024 MR/BMSKETAN [facility] Vascular Surgery [address] [place] [address] OFFICE VISIT Date of Service: 08/21/24 MR#: [id number] Acct: [id number] Name: OLIVIAROZ ROJAS Rep #: [id number] : 1950 Provider: Dr. Hugo Alvarado MD Age/Sex: 74/M [facility] Status: Signed Intake Vital Signs 08/21/24 13:45 Weight: 185 lb BP 163/82 H Blood Pressure Location Lt brachial Position Sitting Respiration 16 Pulse 72 Pulse Source Monitor Temp 98.5 F Temp Source Temporal Pulse Oximetry (%) 95 Oxygen Delivery Method room air Intake Visit Reasons: [facility] referral for fistula Is patient in pain?: No Allergies codeine Allergy (Severe, Verified 08/21/24 13:47) Vomiting Medications ???Medication ???Instructions ???Recorded ???Confirmed ???Type furosemide 20 mg tablet (Lasix) 20 mg PO BID 08/21/24 08/21/24 History hydrochlorothiazide 50 mg tablet 100 mg PO BID 08/21/24 08/21/24 History vitamin B complex and vitamin C 1 cap PO QDAY 08/21/24 08/21/24 History no.20-folic acid 1 mg capsule (Renal Caps) Have you fallen in the past year?: Yes PFSH Medical History (Updated 08/21/24 @ 15:[address] Hugo Alvarado MD) CHF (congestive heart failure) Peptic ulcer Hypertension Diabetes ESRD (end stage renal disease) Surgical History (Updated 08/21/24 @ 13:44 by Magy Kee) Hx of cholecystectomy History of ankle surgery Social History (Updated 08/21/24 @ 13:45 by Magy Kee) Smoking Status: Former smoker Tobacco: How many years used: 30 how long ago did patient quit smokin yrs HPI HPI HPI: ROZ BAKER, is a 74 M who presents to the office today for evaluation for dialysis access. He has been on HD via right IJ catheter since March. Had been followed for many years for renal decline due to HTN and DM. No prior arm or clavicle fracture/pacer/node dissection/DVT/PICC. Right hand dominant. ROS General General: Yes weight change; No appetite, fatigue, colon cancer, breast cancer or weakness HEENT HEENT: No difficulty swallowing, eye injury, eye surgery, swollen glands or hoarseness Endo Endocrine: No thyroid disease, diabetes mellitus, thyroid cancer, Hair loss, heat intolerance or cold intolerance Skin Skin: No rash or changing moles Musc Musculoskeletal: Yes arthritis, gout and joint pain; No back problems or rheumatoid arthritis Cardio Cardiovascular: Yes murmur and high blood pressure; No pacemaker, heart disease, atrial fibrillation, heart attack, heart stent, palpitations, shortness of breat with exertion or chest pain Psych Psychiatric: No depression, anxiety or hearing voices Resp Respiratory: Yes shortness of breath, No sleep apnea, No cough, No COPD, No asthma, No emphysema and No wheezing Gastro Gastrointestinal: No abdominal pain, No nausea or vomiting, No diarrhea, No constipation, No blood in stool, No acid reflux, No hemorrhoids, Yes ulcers, No gallbladder problem and No black,tarry stools Zan Hematologic: Yes blood thinners, No blood disorders, No bleeding, No anemia and No blood clots Neuro Neurologic: No system reviewed and no additional complaints, except as documented, No as per HPI, No abnormal gait, No abnormal hearing, No abnormal movements, No abnormal speech, No behavioral changes, No burning sensations, No confusion, No convulsions, No disequilibrium, No dizziness, No localized weakness, No frequent falls, No headache(s), No lack of coordination, No loss of vision, No memory loss, Yes numbness, No other visual disturbances, No radicular pain, No restless legs, No sensory deficit, No syncope, Yes tingling, No tremor(s), No weakness and No other Exam Const General: cooperative, healthy appearing, comfortable, no acute distress and well developed Nutritional Appearance: well nourished Orientation: alert, awake and oriented x3 HENMT Head: normocephalic and atraumatic Ears: hearing grossly normal bilaterally Nose: external nose normal Eyes General: appearance normal, both eyes and all related structures EOM: EOM intact bilaterally Neck Neck: normal visual inspection, full ROM and trachea midline Resp Effort Inspection: normal respiratory effort, able to speak in complete sentences, symmetric chest movement, no audible wheezes, not labored, no stridor and no use of accessory muscles Cardio Rate: regular rate Rhythm: regular rhythm Pulses: brachial pulses present and radial pulses present Skin General: no rashes or lesions noted and no erythema Wounds: no wounds Neuro Cranial Nerves: CN's II-XI intact bilaterally and EOM intact bilaterally Speech: speech normal Gait: normal gait Motor: strength 5/5 throughout Sensory Exam: no sensory deficits noted Psych Appearance: grossly normal and well kempt Mental S (more content not included)... Normal [facility] CBC panel Auto (Bld)on 07-29 Erythrocyte distribution width (RBC) [Ratio] 18.6 % High 11.5-15.0 [facility] Comment on above: Order Comment: Speci men Type: BLOOD SPECIMENOrdering Facility: KAMRON LEPE M.D. ([id number]) Address: [facility] [address] [place] [address] Performed By: #### 5 8410-2 ####[facility] LABCL[facility] [id number] [address] OF [facility] Hematocrit (Bld) [Volume fraction] 37.3 % Low 39.0-51.0 [facility] Comment on above: Order Comment: Speci men Type: BLOOD SPECIMENOrdering Facility: KAMRON LEPE M.D. ([id number]) Address: [address] [place] [address] Performed By: #### 5 8410-2 ####[facility]IA [id number] [place] [address] [employer] OF [facility] Hemoglobin (Bld) [Mass/Vol] 10.8 g/dL Low 13.0-17.0 [facility] Comment on above: Order Comment: Speci men Type: BLOOD SPECIMENOrdering Facility: KAMRON LEPE M.D. ([id number]) Address: [address] [place] [address] Performed By: #### 5 8410-2 ####[facility] [id number] [address] MCH (RBC) [Entitic mass] 25.5 pg Low 26.0-34.0 [facility] Comment on above: Order Comment: Speci men Type: BLOOD SPECIMENOrdering Facility: KAMRON LEPE M.D. ([id number]) Address: [address] [place] [address] Performed By: #### 5 8410-2 ####[facility] [id number] [place] [address] [place] [facility] MCHC (RBC) [Mass/Vol] 29.0 g/dL Low 30.5-36.0 [facility] Comment on above: Order Comment: Speci men Type: BLOOD SPECIMENOrdering Facility: KAMRON LEPE M.D. ([id number]) Address: [address] [place] [address] Performed By: #### 5 8410-2 ####[facility] [id number] [place] [address] [facility] MCV (RBC) [Entitic vol] 88.2 fL Normal 80.0-100.0 [facility] Comment on above: Order Comment: Speci men Type: BLOOD SPECIMENOrdering Facility: KAMRON LEPE M.D. ([id number]) Address: [address] [place] [address] Performed By: #### 5 8410-2 ####[facility] [id number] [place] [address] [place] Nucleated RBC (Bld) [#/Vol] 10*3/uL Normal <0.01 [facility] Comment on above: Order Comment: Speci men Type: BLOOD SPECIMENOrdering Facility: KAMRON LEPE M.D. ([id number]) Address: [address] [place] [address] Performed By: #### 5 8410-2 ####[facility] [id number] [place] [address] [place] Platelet mean volume (Bld) [Entitic vol] 9.0 fL Normal 9.0-12.7 [facility] Comment on above: Order Comment: Speci men Type: BLOOD SPECIMENOrdering Facility: KAMRON LEPE M.D. ([id number]) Address: [address] [place] [address] Performed By: #### 5 8410-2 ####[facility] [id number] [place] [address] [place] Platelets (Bld) [#/Vol] 288 10*3/uL Normal 150-400 [facility] Comment on above: Order Comment: Speci men Type: BLOOD SPECIMENOrdering Facility: KAMRON LEPE M.D. ([id number]) Address: [address] [place] [address] Performed By: #### 5 8410-2 ####[facility] [id number] [place] [address] [place] RBC (Bld) [#/Vol] 4.23 10*6/uL Normal 4.20-6.00 [facility] Comment on above: Order Comment: Speci men Type: BLOOD SPECIMENOrdering Facility: KAMRON LEPE M.D. ([id number]) Address: [facility] [address] [place] [address] Performed By: #### 5 8410-2 ####[facility] [id number] [place] [address] [facility] WBC (Bld) [#/Vol] 6.01 10*3/uL Normal 3.70-11.00 [facility] Comment on above: Order Comment: Speci men Type: BLOOD SPECIMENOrdering Facility: KAMRON LEPE M.D. ([id number]) Address: [facility] [address] [place] [address] Performed By: #### 5 8410-2 ####[facility] [id number] [place] [address] [facility] Comprehensive metabolic 2000 panelon 07-29-2024 Albumin [Mass/Vol] 3.4 g/dL Low 3.9-4.9 [facility] Comment on above: Order Comment: Speci men Type: BLOOD SPECIMENOrdering Facility: KAMRON LEPE M.D. ([id number]) Address: [facility] [address] [place] [address] Performed By: #### L PRAMOD, 64559-2 ####[facility] [id number] [place] [address] [place] ALP [Catalytic activity/Vol] 79 U/L Normal 38-113 [facility] Comment on above: Order Comment: Speci men Type: BLOOD SPECIMENOrdering Facility: KAMRON LEPE M.D. ([id number]) Address: [facility] [address] [place] [address] Performed By: #### L PRAMOD, 42336-9 ####[facility] [id number] [place] [address] [place] ALT [Catalytic activity/Vol] U/L Low 10-54 [facility] Comment on above: Order Comment: Speci men Type: BLOOD SPECIMENOrdering Facility: KAMRON LEPE M.D. ([id number]) Address: [address] [place] [address] Performed By: #### L PRAMOD, 38208-9 ####[facility] [id number] [place] [address] [place] [facility] Anion gap [Moles/Vol] 11 mmol/L Normal 8-15 [facility] Comment on above: Order Comment: Speci men Type: BLOOD SPECIMENOrdering Facility: KAMRON LEPE M.D. ([id number]) Address: [facility] [place] [address] Performed By: #### L PRAMOD, 35031-3 ####[facility] [id number] [place] [address] [place] AST [Catalytic activity/Vol] 16 U/L Normal 14-40 [facility] Comment on above: Order Comment: Speci men Type: BLOOD SPECIMENOrdering Facility: KAMRON LEEP M.D. (M4) Address: [facility] [place] [address] Performed By: #### L PRAMOD, 92897-2 ####[facility] [id number] [place] [address] [place] Bilirubin [Mass/Vol] 0.3 mg/dL Normal 0.2-1.3 [facility] Comment on above: Order Comment: Speci men Type: BLOOD SPECIMENOrdering Facility: KAMRON LEPE M.D. ([id number]) Address: [facility] [place] [address] Performed By: #### L IPMIKE, 95004-8 ####[facility] [id number] [place] [address] [place] Calcium [Mass/Vol] 8.7 mg/dL Normal 8.5-10.2 [facility] Comment on above: Order Comment: Speci men Type: BLOOD SPECIMENOrdering Facility: KAMRON LEPE M.D. (M421) Address: [address] [place] [address] Performed By: #### L PRAMOD, 23700-2 ####[facility] [id number] [place] [address] [place] Chloride [Moles/Vol] 97 mmol/L Low 98-107 [facility] Comment on above: Order Comment: Speci men Type: BLOOD SPECIMENOrdering Facility: KAMRON LEPE M.D. (M4) Address: [address] [place] [address] Performed By: #### L PRAMOD, 09009-8 ####[facility] [id number] [place] [address] [place] CO2 [Moles/Vol] 28 mmol/L Normal 22-30 [facility] Comment on above: Order Comment: Speci men Type: BLOOD SPECIMENOrdering Facility: KAMRON LEPE M.D. ([facility]) Address: [address] [place] [address] Performed By: #### L PRAMOD, 68041-3 ####[facility] [id number] [place] [address] [place] Creatinine [Mass/Vol] 3.54 mg/dL High 0.73-1.22 [facility] Comment on above: Order Comment: Speci men Type: BLOOD SPECIMENOrdering Facility: KAMRON LEPE M.D. (M4) Address: [address] [place] [address] Performed By: #### L PRAMOD, 94013-9 ####[facility] [id number] [place] [address] [place] [facility] Creatinine and Glomerular filtration rate.predicted panel (S/P/Bld) 18 mL/min/1.73m??? Low >=60 [facility] Comment on above: Order Comment: Speci men Type: BLOOD SPECIMENOrdering Facility: KAMRON LEPE M.D. ([id number]) Address: [address] [place] [address] Result Comment: More mated Glomerular Filtration Rate (eGFR) is calculated using the 2020 CKD-EPI creatinine equation. This equation utilizes serum creatinine, sex, and age as parameters. The creatinine assay has traceable calibration to isotope dilution-mass spectrometry. Refer to KDIGO guidelines for clinical interpretation. In patients with unstable renal function, e.g. those with acute kidney injury, the eGFR may not accurately reflect actual GFR. Performed By: #### L PRAMOD, 72920-7 ####[facility] [id number] [place] [address] [place] Glucose [Mass/Vol] 126 mg/dL High 74-99 [facility] Comment on above: Order Comment: Elizabeth riggs Type: BLOOD SPECIMENOrdering Facility: KAMRON LEPE M.D. ([id number]) Address: [facility] [address] [place] [address] Result Comment: The [place] Diabetes Association (ADA) provides guidance for cutoff values for fasting glucose and random glucose. The ADA defines fasting as no caloric intake for at least 8 hours. Fasting plasma glucose results between 100 to 125 mg/dL indicate increased risk for diabetes (prediabetes).Fasting plasma glucose results greater than or equal to 126 mg/dL meet the criteria for diagnosis of diabetes. In the absence of unequivocal hyperglycemia, results should be confirmed by repeat testing. In a patient with classic symptoms of hyperglycemia or hyperglycemic crisis, random plasma glucose results greater than or equal to 200 mg/dL meet the criteria for diagnosis of diabetes.Reference: Standards of Medical Care in Diabetes 2016, [place] Diabetes Association. Diabetes Care. 2016.39(Suppl 1). Performed By: #### L PRAMOD, 28551-8 ####[facility] [id number] [place] [address] [place] Potassium [Moles/Vol] 4.1 mmol/L Normal 3.7-5.1 [facility] Comment on above: Order Comment: Elizabeth riggs Type: BLOOD SPECIMENOrdering Facility: KAMRON LEPE M.D. ([id number]) Address: [facility] [address] [place] [address] Performed By: #### L PRAMOD, 78668-9 ####[facility] [id number] [place] [address] [place] Protein [Mass/Vol] 6.4 g/dL Normal 6.3-8.0 [facility] Comment on above: Order Comment: Speci men Type: BLOOD SPECIMENOrdering Facility: KAMRON LEPE M.D. (M421) Address: [address] [place] [address] Performed By: #### L IPMIKE, 34310-8 ####[facility] [id number] [place] [address] [place] Sodium [Moles/Vol] 136 mmol/L Normal 136-144 [facility] Comment on above: Order Comment: Speci men Type: BLOOD SPECIMENOrdering Facility: KAMRON LEPE M.D. (M421) Address: [address] [place] [address] Performed By: #### L IPMIKE, 00626-0 ####[facility] [id number] [place] [address] [place] Urea nitrogen [Mass/Vol] 40 mg/dL High 9-24 [facility] Comment on above: Order Comment: Speci men Type: BLOOD SPECIMENOrdering Facility: KAMRON LEPE M.D. (M421) Address: [facility] [address] Performed By: #### L IPMIKE, 72457-2 ####[facility] [id number] [place] [address] [place] HbA1c (Bld)on 07-29-2024 Average glucose Estimated from glycated hemoglobin (Bld) [Mass/Vol] 103 mg/dL Normal [facility] Comment on above: Order Comment: Speci men Type: BLOOD SPECIMENOrdering Facility: KAMRON LEPE M.D. (M4) Address: [address] [place] [address] Result Comment: eAG: (Estimated average glucose) is a calculated value from HgbA1c and is access service representative of the average blood glucose level in the last 2-3 month period. Performed By: #### 5 5454-3 ####[facility] [id number] [place] [address] [place] HbA1c (Bld) [Mass fraction] 5.2 % Normal 4.3-6.1 [facility] Comment on above: Order Comment: Elizabeth riggs Type: BLOOD SPECIMENOrdering Facility: KAMRON LEPE M.D. ([id number]) Address: [address] [place] [address] Result Comment: [place] Diabetes Association guidelines indicate that patients with HgbA1c in the range 5.7-6.4% are at increased risk for development of diabetes, and intervention by lifestyle modification may be beneficial. HgbA1c greater or equal to 6.5% is considered diagnostic of diabetes. Performed By: #### 5 5454-3 ####[facility] [id number] [place] [address] [employer] [place] LIPID PANEL, NONFASTINGon Cholesterol [Mass/Vol] 128 mg/dL Normal <200 [facility] Comment on above: Order Comment: Elizabeth riggs Type: BLOOD SPECIMENOrdering Facility: KAMRON LEPE M.D. ([id number]) Address: [address] [place] [address] Result Comment: <200 mg/dL, Desirable 200-239 mg/dL, Borderline high>239 mg/dL, High Performed By: #### L IPMIKE, 96240-7 ####[facility] [id number] [place] [address] [place] HDL CHOLESTEROL, NF 40 mg/dL Normal >39 [facility] Comment on above: Order Comment: Elizabeth riggs Type: BLOOD SPECIMENOrdering Facility: KAMRON LEPE M.D. ([id number]) Address: [facility] [address] [place] [address] Result Comment: 40-5 9 mg/dL, Acceptable>59 mg/dL, High: Negative risk factor for coronary heart disease<40 mg/dL, Low: Positive risk factor for coronary heart disease Performed By: #### L IPMIKE, 39634-9 ####[facility] [id number] [address] LDL CHOLESTEROL, NF 74 mg/dL Normal <100 [facility] Comment on above: Order Comment: Speci men Type: BLOOD SPECIMENOrdering Facility: KAMRON LEPE M.D. ([id number]) Address: [facility] 09[address] [place] [address] Result Comment: <100 mg/dL, Optimal 100-129 mg/dL, Near optimal/above optimal 130-159 mg/dL, Borderline high 160-189 mg/dL, High>189 mg/dL, Very highSecondary prevention optimal LDL Cholesterol levels are recommended to be < 70 mg/dL Performed By: #### L PRAMOD, 76071-3 ####[facility] [id number] [address] LDL/HDL RATIO, NF 1.85 mg/dL Normal <2.54 [facility] Comment on above: Order Comment: Specalcides men Type: BLOOD SPECIMENOrdering Facility: KAMRON LEPE M.D. ([id number]) Address: [facility] [address] [place] [address] Result Comment: Refe rence:1. National Cholesterol Education Program ATP III Guideline At-A-Glance Quick Desk Reference: National Heart, Lung, and Blood [place]. National Institutes of Health. 2001: NIH Publication No. 01-3305.2. An International Atherosclerosis Society position paper: global recommendations for the management of dyslipidemia: executive summary, Atherosclerosis. 2014: 232(2):410-413. Performed By: #### L PRAMOD, 12615-7 ####[facility] [id number] [address] NON HDL CHOL, NF 88 mg/dL Normal <130 [facility] Comment on above: Order Comment: Specalcides keely Type: BLOOD SPECIMENOrdering Facility: KAMRON LEPE M.D. ([id number]) Address: [facility] [address] [place] [address] Result Comment: <130 mg/dL, Optimal 130-159 mg/dL, Near optimal/above optimal 160-189 mg/dL, Borderline high 190-219 mg/dL, High>219 mg/dL, Very highSecondary prevention optimal non HDL Cholesterol levels are recommended to be <100 mg/dL Performed By: #### L PRAMOD, 75788-6 ####[facility] [id number] [place] [address] [place] T CHOL/HDL RATIO NF 3.20 mg/dL Normal <5.10 [facility] Comment on above: Order Comment: Speci men Type: BLOOD SPECIMENOrdering Facility: KAMRON LEPE M.D. ([id number]) Address: [address] [place] [address] Performed By: #### L PRAMOD, 08093-8 ####[facility] [id number] [place] [address] [place] TRIGLYCERIDES, NF 70 mg/dL Normal <150 [facility] Comment on above: Order Comment: Speci men Type: BLOOD SPECIMENOrdering Facility: KAMRON LEPE M.D. ([id number]) Address: [address] [place] [address] Result Comment: <150 mg/dL, Normal 150-199 mg/dL, Borderline high 200-499 mg/dL, High>499 mg/dL, Very high Performed By: #### Marcelo BENAVIDEZ, 94777-3 ####[facility] [id number] [place] [address] [place] VLDL CHOLESTEROL, NF 14 mg/dL Normal <30 [facility] Comment on above: Order Comment: Speci men Type: BLOOD SPECIMENOrdering Facility: KAMRON LEPE M.D. ([id number]) Address: [facility] [place] [address] Performed By: #### L PRAMOD, 04124-3 ####[facility] [id number] [place] [address] [place] Basic metabolic 2000 panelon 07-24-2024 Anion gap [Moles/Vol] 11 mmol/L Normal 8-15 [facility] Comment on above: Order Comment: Speci men Type: BLOOD SPECIMENOrdering Facility: [facility] Address: [address], [place] [address] Performed By: #### 2 4320-2, ####[facility] [id number] [place] [address] [place] Calcium [Mass/Vol] 9.1 mg/dL Normal 8.5-10.2 [facility] Comment on above: Order Comment: Speci men Type: BLOOD SPECIMENOrdering Facility: [facility] Address: [facility] [place] [address] Performed By: #### 2 4320-2, ####[facility] [id number] [place] [address] [place] Chloride [Moles/Vol] 98 mmol/L Normal 98-107 [facility] Comment on above: Order Comment: Speci men Type: BLOOD SPECIMENOrdering Facility: [facility] Address: [facility] [place] [address] Performed By: #### 2 4320-10, ####[facility] [id number] [place] [address] [place] CO2 [Moles/Vol] 24 mmol/L Normal 22-30 [facility] Comment on above: Order Comment: Speci men Type: BLOOD SPECIMENOrdering Facility: [facility] Address: [facility] [place] [id number] Performed By: #### 2 2, ####[facility] [id number] [place] [address] [place] Creatinine [Mass/Vol] 3.60 mg/dL High 0.73-1.22 [facility] Comment on above: Order Comment: Speci men Type: BLOOD SPECIMENOrdering Facility: [facility] Address: [facility] [place] [id number] Performed By: #### 2 4320-2, ####[facility] [id number] [place] [address] [place] Creatinine and Glomerular filtration rate.predicted panel (S/P/Bld) 17 mL/min/1.73m??? Low >=60 [facility] Comment on above: Order Comment: Elizabeth riggs Type: BLOOD SPECIMENOrdering Facility: [facility] Address: [address] [place] [address] Result Comment: More mated Glomerular Filtration Rate (eGFR) is calculated using the 2020 CKD-EPI creatinine equation. This equation utilizes serum creatinine, sex, and age as parameters. The creatinine assay has traceable calibration to isotope dilution-mass spectrometry. Refer to KDIGO guidelines for clinical interpretation. In patients with unstable renal function, e.g. those with acute kidney injury, the eGFR may not accurately reflect actual GFR. Performed By: #### 2 4321-2, ####[facility] [id number] [place] [address] [place] Glucose [Mass/Vol] 85 mg/dL Normal 74-99 [facility] Comment on above: Order Comment: Elizabeth riggs Type: BLOOD SPECIMENOrdering Facility: [facility] Address: [address] [place] [address] Result Comment: The [place] Diabetes Association (ADA) provides guidance for cutoff values for fasting glucose and random glucose. The ADA defines fasting as no caloric intake for at least 8 hours. Fasting plasma glucose results between 100 to 125 mg/dL indicate increased risk for diabetes (prediabetes).Fasting plasma glucose results greater than or equal to 126 mg/dL meet the criteria for diagnosis of diabetes. In the absence of unequivocal hyperglycemia, results should be confirmed by repeat testing. In a patient with classic symptoms of hyperglycemia or hyperglycemic crisis, random plasma glucose results greater than or equal to 200 mg/dL meet the criteria for diagnosis of diabetes.Reference: Standards of Medical Care in Diabetes 2016, [place] Diabetes Association. Diabetes Care. 2016.39(Suppl 1). Performed By: #### 2 4321-2, ####[facility] [id number] [place] [address] [place] Potassium [Moles/Vol] 3.6 mmol/L Low 3.7-5.1 [facility] Comment on above: Order Comment: Elizabeth riggs Type: BLOOD SPECIMENOrdering Facility: [facility] Address: [address] [place] [address] Performed By: #### 2 4321-2, 06067-8 ####[facility] [id number] [place] [address] [place] Sodium [Moles/Vol] 133 mmol/L Low 136-144 [facility] Comment on above: Order Comment: Speci men Type: BLOOD SPECIMENOrdering Facility: [facility] Address: [address] [place] [address] [place] [address] Performed By: #### 2 4321-2, ####[facility] [id number] [place] [address] [place] Urea nitrogen [Mass/Vol] 30 mg/dL High 9-24 [facility] Comment on above: Order Comment: Speci men Type: BLOOD SPECIMENOrdering Facility: [facility] Address: [address] [place] [address] Performed By: #### 2 4321-2, ####[facility] [id number] [place] [address] [place] CASE MANAGEMon 07-24-2024 CASE MANAGEM [facility] CNCOon 07-24-2024 CNCO Letter Text [facility] CNDSon 07-24-2024 CNDS [facility] Hgb Bld-ncon 07-24-2024 Hemoglobin (Bld) [Mass/Vol] 11.6 g/dL Low 13.0-17.0 [facility] Comment on above: Order Comment: Speci men Type: BLOOD SPECIMENOrdering Facility: [facility] Address: [address] [place] [address] Performed By: #### 7 18-7 ####[facility] [id number] [place] [address] [place] Magnesium SerPl-mCncon 07-24 Magnesium [Mass/Vol] 1.7 mg/dL Normal 1.7-2.3 [facility] Comment on above: Order Comment: Speci men Type: BLOOD SPECIMENOrdering Facility: [facility] Address: [address] [place] [address] Performed By: #### 2 4321-2, 22174-2 ####[facility] [id number] [place] [address] [place] THERAPY NTon 07-24-2024 THERAPY NT Normal [facility] CBC panel Auto (Bld)on 07-23 Erythrocyte distribution width (RBC) [Ratio] 18.8 % High 11.5-15.0 [facility] Comment on above: Order Comment: Speci men Type: BLOOD SPECIMENOrdering Facility: [facility] Address: [address] [place] [address] Performed By: #### 5 8410-2 ####[facility] [id number] [place] [facility] Hematocrit (Bld) [Volume fraction] 37.7 % Low 39.0-51.0 [facility] Comment on above: Order Comment: Speci men Type: BLOOD SPECIMENOrdering Facility: [facility] Address: [address] [place] [address] Performed By: #### 5 8410-2 ####[facility] [id number] [address] [place] Hemoglobin (Bld) [Mass/Vol] 11.5 g/dL Low 13.0-17.0 [facility] Comment on above: Order Comment: Speci men Type: BLOOD SPECIMENOrdering Facility: [facility] Address: [address] [place] [address] Performed By: #### 5 8410-2 ####[facility] [id number] [address] [place] MCH (RBC) [Entitic mass] 26.1 pg Normal 26.0-34.0 [facility] Comment on above: Order Comment: Speci men Type: BLOOD SPECIMENOrdering Facility: [facility] Address: [address] [place] [address] Performed By: #### 5 8410-2 ####[facility] [id number] [place] [address] [place] MCHC (RBC) [Mass/Vol] 30.5 g/dL Normal 30.5-36.0 [facility] Comment on above: Order Comment: Speci men Type: BLOOD SPECIMENOrdering Facility: [facility] Address: [address] [place] [address] Performed By: #### 5 8410-2 ####[facility] [id number] [place] MCV (RBC) [Entitic vol] 85.5 fL Normal 80.0-100.0 [facility] Comment on above: Order Comment: Speci men Type: BLOOD SPECIMENOrdering Facility: [facility] Address: [address] [place] [address] Performed By: #### 5 8410-2 ####[facility] [id number] [place] Nucleated RBC (Bld) [#/Vol] 10*3/uL Normal <0.01 [facility] Comment on above: Order Comment: Speci men Type: BLOOD SPECIMENOrdering Facility: [facility] Address: [address] [place] [address] Performed By: #### 5 8410-2 ####[facility] [id number] [address] [place] Platelet mean volume (Bld) [Entitic vol] 8.7 fL Low 9.0-12.7 [facility] Comment on above: Order Comment: Speci men Type: BLOOD SPECIMENOrdering Facility: [facility] Address: [address] [place] [address] Performed By: #### 5 8410-2 ####[facility] [id number] [place] Platelets (Bld) [#/Vol] 277 10*3/uL Normal 150-400 [facility] Comment on above: Order Comment: Speci men Type: BLOOD SPECIMENOrdering Facility: [facility] Address: [address] [place] [address] Performed By: #### 5 8410-2 ####[facility] [id number] [place] [address] [place] RBC (Bld) [#/Vol] 4.41 10*6/uL Normal 4.20-6.00 [facility] Comment on above: Order Comment: Speci men Type: BLOOD SPECIMENOrdering Facility: [facility] Address: [address] [place] [address] Performed By: #### 5 8410-2 ####[facility] [id number] [place] [address] [place] WBC (Bld) [#/Vol] 7.96 10*3/uL Normal 3.70-11.00 [facility] Comment on above: Order Comment: Speci men Type: BLOOD SPECIMENOrdering Facility: [facility] Address: [address] [place] [address] Performed By: #### 5 8410-2 ####[facility] [id number] [place] [address] [place] CONSULTon 07-23-2024 CONSULT Normal [facility] CONSULT Normal [facility] Comprehensive metabolic 2000 panelon 07-23-2024 Albumin [Mass/Vol] 3.0 g/dL Low 3.9-4.9 [facility] Comment on above: Order Comment: Speci men Type: BLOOD SPECIMENOrdering Facility: [facility] Address: [address] [place] [address] Performed By: #### 1 9123-9, 54661-2, 2777-1 ####[facility] [id number] [place] [address] [place] ALP [Catalytic activity/Vol] 68 U/L Normal 38-113 [facility] Comment on above: Order Comment: Speci men Type: BLOOD SPECIMENOrdering Facility: [facility] Address: [address] [place] [address] Performed By: #### 1 9123-9, 14892-9, 2777-1 ####[facility] [id number] [place] [address] [place] ALT [Catalytic activity/Vol] U/L Low 10-54 [facility] Comment on above: Order Comment: Speci men Type: BLOOD SPECIMENOrdering Facility: [facility] Address: [address] [place] [address] Performed By: #### 1 9123-9, 66536-0, 2777-1 ####[facility] [id number] [place] [address] [place] Anion gap [Moles/Vol] 12 mmol/L Normal 8-15 [facility] Comment on above: Order Comment: Speci men Type: BLOOD SPECIMENOrdering Facility: [facility] Address: [address] [place] [address] Performed By: #### 1 9123-9, 78468-4, 277- ####[facility] [id number] [place] [address] [place] [facility] AST [Catalytic activity/Vol] 15 U/L Normal 14-40 [facility] Comment on above: Order Comment: Speci men Type: BLOOD SPECIMENOrdering Facility: [facility] Address: [address] [place] [address] Performed By: #### 1 9123-9, 46367-0, 2777- ####[facility] [id number] [place] [address] [place] Bilirubin [Mass/Vol] 0.3 mg/dL Normal 0.2-1.3 [facility] Comment on above: Order Comment: Speci men Type: BLOOD SPECIMENOrdering Facility: [facility] Address: [address] [place] [address] Performed By: #### 1 9123-9, 39382-4, 2777-1 ####[facility] [id number] [place] [address] [place] Calcium [Mass/Vol] 9.2 mg/dL Normal 8.5-10.2 [facility] Comment on above: Order Comment: Speci men Type: BLOOD SPECIMENOrdering Facility: [facility] Address: [address] [place] [address] Performed By: #### 1 9123-9, 94479-7, 2777- ####[facility] [id number] [place] [address] [place] Chloride [Moles/Vol] 100 mmol/L Normal 98-107 [facility] Comment on above: Order Comment: Speci men Type: BLOOD SPECIMENOrdering Facility: [facility] Address: [address] [place] [address] Performed By: #### 1 9123-9, 91106-9, 277- ####[facility] [id number] [place] [address] [place] CO2 [Moles/Vol] 20 mmol/L Low 22-30 [facility] Comment on above: Order Comment: Speci men Type: BLOOD SPECIMENOrdering Facility: [facility] Address: [address] [place] [address] Performed By: #### 1 9123-9, 46171-4, 277- ####[facility] [id number] [place] [address] [place] Creatinine [Mass/Vol] 3.10 mg/dL High 0.73-1.22 [facility] Comment on above: Order Comment: Speci men Type: BLOOD SPECIMENOrdering Facility: [facility] Address: [address] [place] [address] Performed By: #### 1 9123-9, 22680-1, 277- ####[facility] [id number] [place] [address] [place] Creatinine and Glomerular filtration rate.predicted panel (S/P/Bld) 21 mL/min/1.73m??? Low >=60 [facility] Comment on above: Order Comment: Speci men Type: BLOOD SPECIMENOrdering Facility: [facility] Address: [address] [place] [address] Result Comment: More mated Glomerular Filtration Rate (eGFR) is calculated using the 2020 CKD-EPI creatinine equation. This equation utilizes serum creatinine, sex, and age as parameters. The creatinine assay has traceable calibration to isotope dilution-mass spectrometry. Refer to KDIGO guidelines for clinical interpretation. In patients with unstable renal function, e.g. those with acute kidney injury, the eGFR may not accurately reflect actual GFR. Performed By: #### 1 9123-9, 12835-5, 277- ####[facility] [id number] [place] [address] [place] Glucose [Mass/Vol] 98 mg/dL Normal 74-99 [facility] Comment on above: Order Comment: Elizabeth riggs Type: BLOOD SPECIMENOrdering Facility: [facility] Address: [address] [place] [address] Result Comment: The [place] Diabetes [employer] (ADA) provides guidance for cutoff values for fasting glucose and random glucose. The ADA defines fasting as no caloric intake for at least 8 hours. Fasting plasma glucose results between 100 to 125 mg/dL indicate increased risk for diabetes (prediabetes).Fasting plasma glucose results greater than or equal to 126 mg/dL meet the criteria for diagnosis of diabetes. In the absence of unequivocal hyperglycemia, results should be confirmed by repeat testing. In a patient with classic symptoms of hyperglycemia or hyperglycemic crisis, random plasma glucose results greater than or equal to 200 mg/dL meet the criteria for diagnosis of diabetes.Reference: Standards of Medical Care in Diabetes 2016, [place] [employer]. Diabetes Care. 2016.39(Suppl 1). Performed By: #### 1 9123-9, 21986-1, 2776-09 ####[facility] [id number] [place] [address] [place] Potassium [Moles/Vol] 3.7 mmol/L Normal 3.7-5.1 [facility] Comment on above: Order Comment: Elizabeth riggs Type: BLOOD SPECIMENOrdering Facility: [facility] Address: [address] [place] [address] Performed By: #### 1 9123-9, 78314-7, 277- ####[facility] [id number] [place] [address] [place] Protein [Mass/Vol] 5.6 g/dL Low 6.3-8.0 [facility] Comment on above: Order Comment: Speci men Type: BLOOD SPECIMENOrdering Facility: [facility] Address: [address] [place] [address] Performed By: #### 1 9123-9, 18929-5, 2777-1 ####[facility] [id number] [place] [address] [place] Sodium [Moles/Vol] 132 mmol/L Low 136-144 [facility] Comment on above: Order Comment: Speci men Type: BLOOD SPECIMENOrdering Facility: [facility] Address: [address] [place] [address] Performed By: #### 1 9123-9, 85294-1, 2777-1 ####[facility] [id number] [place] [address] [place] Urea nitrogen [Mass/Vol] 27 mg/dL High 9-24 [facility] Comment on above: Order Comment: Speci men Type: BLOOD SPECIMENOrdering Facility: [facility] Address: [address] [place] [address] Performed By: #### 1 9123-9, 72070-6, 2777-1 ####[facility] [id number] [place] [address] [place] Hgb Bld-ncon 07-23-2024 Hemoglobin (Bld) [Mass/Vol] 10.7 g/dL Low 13.0-17.0 [facility] Comment on above: Order Comment: Speci men Type: BLOOD SPECIMENOrdering Facility: [facility] Address: [address] [place] [address] Performed By: #### 7 18-7 ####[facility] [id number] [place] [address] [place] Hemoglobin (Bld) [Mass/Vol] 11.0 g/dL Low 13.0-17.0 [facility] Comment on above: Order Comment: Speci men Type: BLOOD SPECIMENOrdering Facility: [facility] Address: [address] [place] [address] Performed By: #### 7 18-7 ####[facility] [id number] [place] [address] [place] Magnesium SerPl-[facility] 07-23 Magnesium [Mass/Vol] 1.6 mg/dL Low 1.7-2.3 [facility] Comment on above: Order Comment: Speci men Type: BLOOD SPECIMENOrdering Facility: [facility] Address: [address] [place], [place] [address] Performed By: #### 1 9123-9, 63856-9, 2777-1 ####[facility] [id number] [address] STATES [facility] Phosphate SerPl-nc 07-23 Phosphate [Mass/Vol] 2.4 mg/dL Low 2.7-4.8 [facility] Comment on above: Order Comment: Speci men Type: BLOOD SPECIMENOrdering Facility: [facility] Address: [address] [place] [address] Performed By: #### 1 9123-9, 75148-3, 2777-1 ####[facility] [id number] [place] [address] [place] Renal function 2000 panelon 07-23-2024 Albumin [Mass/Vol] 3.1 g/dL Low 3.9-4.9 [facility] Comment on above: Order Comment: Speci men Type: BLOOD SPECIMENOrdering Facility: [facility] Address: [address] [place] [address] Performed By: #### 2 4362-6 ####[facility] [id number] [place] [address] [place] Anion gap [Moles/Vol] 10 mmol/L Normal 8-15 [facility] Comment on above: Order Comment: Speci men Type: BLOOD SPECIMENOrdering Facility: [facility] Address: [address] [place], [place] [address] Performed By: #### 2 4362-6 ####[facility] [id number] [place] [address] [place] Calcium [Mass/Vol] 9.1 mg/dL Normal 8.5-10.2 [facility] Comment on above: Order Comment: Speci men Type: BLOOD SPECIMENOrdering Facility: [facility] Address: [address] [place] [address] Performed By: #### 2 4362-6 ####[facility] [id number] [place] [address] [place] Chloride [Moles/Vol] 100 mmol/L Normal 98-107 [facility] Comment on above: Order Comment: Speci men Type: BLOOD SPECIMENOrdering Facility: [facility] Address: [address] [place] [address] Performed By: #### 2 4362-6 ####[facility] [id number] [place] [address] [place] CO2 [Moles/Vol] 23 mmol/L Normal 22-30 [facility] Comment on above: Order Comment: Speci men Type: BLOOD SPECIMENOrdering Facility: [facility] Address: [address] [place] [address] Performed By: #### 2 4362-6 ####[facility] [id number] [place] [address] [place] Creatinine [Mass/Vol] 3.22 mg/dL High 0.73-1.22 [facility] Comment on above: Order Comment: Speci men Type: BLOOD SPECIMENOrdering Facility: [facility] Address: [address] [place] [address] Performed By: #### 2 4362-6 ####[facility] [id number] [address] Creatinine and Glomerular filtration rate.predicted panel (S/P/Bld) 20 mL/min/1.73m??? Low >=60 [facility] Comment on above: Order Comment: Speci men Type: BLOOD SPECIMENOrdering Facility: [facility] Address: [address] [place] [address] Result Comment: More mated Glomerular Filtration Rate (eGFR) is calculated using the 2020 CKD-EPI creatinine equation. This equation utilizes serum creatinine, sex, and age as parameters. The creatinine assay has traceable calibration to isotope dilution-mass spectrometry. Refer to KDIGO guidelines for clinical interpretation. In patients with unstable renal function, e.g. those with acute kidney injury, the eGFR may not accurately reflect actual GFR. Performed By: #### 2 4362-6 ####[facility] [id number] [place] [address] [place] Glucose [Mass/Vol] 140 mg/dL High 74-99 [facility] Comment on above: Order Comment: Elizabeth riggs Type: BLOOD SPECIMENOrdering Facility: [facility] Address: [address] [place] [address] Result Comment: The [place] Diabetes Association (ADA) provides guidance for cutoff values for fasting glucose and random glucose. The ADA defines fasting as no caloric intake for at least 8 hours. Fasting plasma glucose results between 100 to 125 mg/dL indicate increased risk for diabetes (prediabetes).Fasting plasma glucose results greater than or equal to 126 mg/dL meet the criteria for diagnosis of diabetes. In the absence of unequivocal hyperglycemia, results should be confirmed by repeat testing. In a patient with classic symptoms of hyperglycemia or hyperglycemic crisis, random plasma glucose results greater than or equal to 200 mg/dL meet the criteria for diagnosis of diabetes.Reference: Standards of Medical Care in Diabetes 2016, [place] [employer]. Diabetes Care. 2016.39(Suppl 1). Performed By: #### 2 4362-6 ####[facility] [id number] [place] [address] [place] Phosphate [Mass/Vol] 2.3 mg/dL Low 2.7-4.8 [facility] Comment on above: Order Comment: Elizabeth riggs Type: BLOOD SPECIMENOrdering Facility: [facility] Address: [address] [place], [place] [address] Performed By: #### 2 4362-6 ####[facility] [id number] [address] [place] Potassium [Moles/Vol] 3.8 mmol/L Normal 3.7-5.1 [facility] Comment on above: Order Comment: Speci men Type: BLOOD SPECIMENOrdering Facility: [facility] Address: [address] [place] [address] Performed By: #### 2 4362-6 ####[facility] [id number] [place] [address] [place] Sodium [Moles/Vol] 133 mmol/L Low 136-144 [facility] Comment on above: Order Comment: Speci men Type: BLOOD SPECIMENOrdering Facility: [facility] Address: [address] [place] [address] Performed By: #### 2 4362-6 ####[facility] [id number] [place] [address] [place] Urea nitrogen [Mass/Vol] 28 mg/dL High 9-24 [facility] Comment on above: Order Comment: Speci men Type: BLOOD SPECIMENOrdering Facility: [facility] Address: [address] [place] [address] Performed By: #### 2 4362-6 ####[facility] [id number] [address] [place] Urinalysis complete panel (U )on 07-23-2024 Bilirubin Ql (U) Negative Normal Negative [facility] Comment on above: Order Comment: Speci men Type: URINE SPECIMENOrdering Facility: [facility] Address: [address] [place] [address] Performed By: #### 2 4356-8 ####[facility] [id number] [address] [place] Clarity (Unsp spec) Clear Normal Clear [facility] Comment on above: Order Comment: Speci men Type: URINE SPECIMENOrdering Facility: [facility] Address: [address] [place] [address] Performed By: #### 2 4356-8 ####[facility] [id number] [place] [address] [place] Color (U) Yellow Normal Yellow [facility] Comment on above: Order Comment: Speci men Type: URINE SPECIMENOrdering Facility: [facility] Address: [address] [place] [address] Performed By: #### 2 4356-8 ####[facility] [id number] [place] [address] [facility] [place] Glucose Test strip (U) [Mass/Vol] Negative Normal Negative [facility] Comment on above: Order Comment: Speci men Type: URINE SPECIMENOrdering Facility: [facility] Address: [address] [place] [address] Performed By: #### 2 4356-8 ####[facility] [id number] [place] [address] [place] Hemoglobin Ql (U) Negative Normal Negative [facility] Comment on above: Order Comment: Speci men Type: URINE SPECIMENOrdering Facility: [facility] Address: [address] [place] [address] Performed By: #### 2 4356-8 ####[facility] [id number] [place] [address] [place] Ketones Ql (U) Negative Normal Negative [facility] Comment on above: Order Comment: Speci men Type: URINE SPECIMENOrdering Facility: [facility] Address: [address] [place] [address] Performed By: #### 2 4356-8 ####[facility] [id number] [place] [address] [place] Leukocyte esterase Test strip Ql (U) Negative Normal Negative [facility] Comment on above: Order Comment: Speci men Type: URINE SPECIMENOrdering Facility: [facility] Address: [address] [place] [address] Performed By: #### 2 4356-8 ####[facility] [id number] [place] [address] [place] Nitrite Ql (U) Negative Normal Negative [facility] Comment on above: Order Comment: Speci men Type: URINE SPECIMENOrdering Facility: [facility] Address: [address] [place] [address] Performed By: #### 2 4356-8 ####[facility] [id number] [place] [address] [place] pH (U) 6.0 [pH] Normal 5.0-8.0 [facility] Comment on above: Order Comment: Speci men Type: URINE SPECIMENOrdering Facility: [facility] Address: [address] [place] [address] Performed By: #### 2 4356-8 ####[facility] [id number] [place] [address] [place] Protein (U) [Mass/Vol] 3+ Abnormal Negative [facility] Comment on above: Order Comment: Speci men Type: URINE SPECIMENOrdering Facility: [facility] Address: [address] [place] [address] Performed By: #### 2 4356-8 ####[facility] [id number] [place] [address] [place] RBC LM.HPF (Urine sed) [#/Area] 0-3 /HPF Normal 0-3 /HPF [facility] Comment on above: Order Comment: Speci men Type: URINE SPECIMENOrdering Facility: [facility] Address: [address] [place] [address] Performed By: #### 2 4356-8 ####[facility] [id number] [place] [address] [place] Specific gravity (U) [Rel density] 1.025 Normal 1.005-1.030 [facility] Comment on above: Order Comment: Speci men Type: URINE SPECIMENOrdering Facility: [facility] Address: [address] [place] [address] Performed By: #### 2 4356-8 ####[facility] [id number] [place] [address] [place] Urobilinogen Ql (U) 0.2 EU/dL Normal 0.2-1.0 EU/dL [facility] Comment on above: Order Comment: Speci men Type: URINE SPECIMENOrdering Facility: [facility] Address: [address] [place] [address] Performed By: #### 2 4356-8 ####[facility] [id number] [place] [address] [place] WBC LM.HPF (Urine sed) [#/Area] 0-5 /HPF Normal 0-5 /HPF [facility] Comment on above: Order Comment: Speci men Type: URINE SPECIMENOrdering Facility: [facility] Address: [address] [place] [address] Performed By: #### 2 4356-8 ####[facility] [id number] [place] [address] [place] CBC W Auto Differential pane l (Bld)on 07-22-2024 Basophils (Bld) [#/Vol] 10*3/uL Normal <0.11 [facility] Comment on above: Order Comment: Speci men Type: BLOOD SPECIMENOrdering Facility: [facility] Address: [address] [place] [address] Performed By: #### 5 7021-8 ####[facility] [id number] [place] [address] [place] Basophils/100 WBC (Bld) 0.2 % Normal [facility] Comment on above: Order Comment: Speci men Type: BLOOD SPECIMENOrdering Facility: [facility] Address: [address] [place] [address] Performed By: #### 5 7021-8 ####[facility] [id number] [place] [address] [place] Differential cell count method Nom (Bld) Auto Normal [facility] Comment on above: Order Comment: Speci men Type: BLOOD SPECIMENOrdering Facility: [facility] Address: [address] [place] [address] Performed By: #### 5 7021-8 ####[facility] [id number] [place] [address] [place] Eosinophils (Bld) [#/Vol] 10*3/uL Normal <0.46 [facility] Comment on above: Order Comment: Speci men Type: BLOOD SPECIMENOrdering Facility: [facility] Address: [address] [place] [address] Performed By: #### 5 7021-8 ####[facility] [id number] [place] [address] [place] Eosinophils/100 WBC (Bld) 0.0 % Normal [facility] Comment on above: Order Comment: Speci men Type: BLOOD SPECIMENOrdering Facility: [facility] Address: [address] [place] [address] Performed By: #### 5 7021-8 ####[facility] [id number] [address] [place] Erythrocyte distribution width (RBC) [Ratio] 19.1 % High 11.5-15.0 [facility] Comment on above: Order Comment: Speci men Type: BLOOD SPECIMENOrdering Facility: [facility] Address: [address] [place] [address] Performed By: #### 5 7021-8 ####[facility] [id number] [address] [place] [facility] Hematocrit (Bld) [Volume fraction] 41.5 % Normal 39.0-51.0 [facility] Comment on above: Order Comment: Speci men Type: BLOOD SPECIMENOrdering Facility: [facility] Address: [address] [place] [address] Performed By: #### 5 7021-8 ####[facility] [id number] [place] [address] [place] Hemoglobin (Bld) [Mass/Vol] 12.7 g/dL Low 13.0-17.0 [facility] Comment on above: Order Comment: Speci men Type: BLOOD SPECIMENOrdering Facility: [facility] Address: [address] [place] [address] Performed By: #### 5 7021-8 ####[facility] [id number] [address] STATES [facility] Immature granulocytes (Bld) [#/Vol] 0.05 10*3/uL Normal <0.10 [facility] Comment on above: Order Comment: Speci men Type: BLOOD SPECIMENOrdering Facility: [facility] Address: [address] [place] [address] Performed By: #### 5 7021-8 ####[facility] [id number] [address] Immature granulocytes/100 WBC (Bld) 0.4 % Normal [facility] Comment on above: Order Comment: Speci men Type: BLOOD SPECIMENOrdering Facility: [facility] Address: [address] [place] [address] Performed By: #### 5 7021-8 ####[facility] [id number] [place] [address] [place] [facility] Lymphocytes (Bld) [#/Vol] 0.70 10*3/uL Low 1.00-4.00 [facility] Comment on above: Order Comment: Speci men Type: BLOOD SPECIMENOrdering Facility: [facility] Address: [address] [place] [address] Performed By: #### 5 7021-8 ####[facility] [id number] [address] Lymphocytes/100 WBC (Bld) 6.1 % Normal [facility] Comment on above: Order Comment: Speci men Type: BLOOD SPECIMENOrdering Facility: [facility] Address: [address] [place] [address] Performed By: #### 5 7021-8 ####[facility] [id number] [address] [place] MCH (RBC) [Entitic mass] 26.0 pg Normal 26.0-34.0 [facility] Comment on above: Order Comment: Speci men Type: BLOOD SPECIMENOrdering Facility: [facility] Address: [address] [place] [address] Performed By: #### 5 7021-8 ####[facility] [id number] [address] [place] [facility] MCHC (RBC) [Mass/Vol] 30.6 g/dL Normal 30.5-36.0 [facility] Comment on above: Order Comment: Speci men Type: BLOOD SPECIMENOrdering Facility: [facility] Address: [address] [place] [address] Performed By: #### 5 7021-8 ####[facility] [id number] [address] [place] MCV (RBC) [Entitic vol] 85.0 fL Normal 80.0-100.0 [facility] Comment on above: Order Comment: Speci men Type: BLOOD SPECIMENOrdering Facility: [facility] Address: [address] [place] [address] Performed By: #### 5 7021-8 ####[facility] [id number] [address] [place] Monocytes (Bld) [#/Vol] 0.85 10*3/uL Normal <0.87 [facility] Comment on above: Order Comment: Speci men Type: BLOOD SPECIMENOrdering Facility: [facility] Address: [address] [place] [address] Performed By: #### 5 7021-8 ####[facility] [id number] [address] Monocytes/100 WBC (Bld) 7.4 % Normal [facility] Comment on above: Order Comment: Speci men Type: BLOOD SPECIMENOrdering Facility: [facility] Address: [address] [place] [address] Performed By: #### 5 7021-8 ####[facility] [id number] [address] [place] Neutrophils (Bld) [#/Vol] 9.86 10*3/uL High 1.45-7.50 [facility] Comment on above: Order Comment: Speci men Type: BLOOD SPECIMENOrdering Facility: [facility] Address: [address] [place] [address] Performed By: #### 5 7021-8 ####[facility] [id number] [place] [address] [place] Neutrophils/100 WBC (Bld) 85.9 % Normal [facility] Comment on above: Order Comment: Speci men Type: BLOOD SPECIMENOrdering Facility: [facility] Address: [address] [place] [address] Performed By: #### 5 7021-8 ####[facility] [id number] [place] [address] [place] Nucleated RBC (Bld) [#/Vol] 10*3/uL Normal <0.01 [facility] Comment on above: Order Comment: Speci men Type: BLOOD SPECIMENOrdering Facility: [facility] Address: [address] [place] [address] Performed By: #### 5 7021-8 ####[facility] [id number] [place] [address] [place] Nucleated RBC/100 WBC (Bld) [Ratio] 0.0 /100 WBC Normal [facility] Comment on above: Order Comment: Speci men Type: BLOOD SPECIMENOrdering Facility: [facility] Address: [address] [place] [address] Performed By: #### 5 7021-8 ####[facility] [id number] [place] [address] [place] Platelet mean volume (Bld) [Entitic vol] 8.7 fL Low 9.0-12.7 [facility] Comment on above: Order Comment: Speci men Type: BLOOD SPECIMENOrdering Facility: [facility] Address: [address] [place] [address] Performed By: #### 5 7021-8 ####[facility] [id number] [place] [address] [place] Platelets (Bld) [#/Vol] 346 10*3/uL Normal 150-400 [facility] Comment on above: Order Comment: Speci men Type: BLOOD SPECIMENOrdering Facility: [facility] Address: [facility] [place] [address] Performed By: #### 5 7021-8 ####[facility] [id number] [place] [address] [place] RBC (Bld) [#/Vol] 4.88 10*6/uL Normal 4.20-6.00 [facility] Comment on above: Order Comment: Speci men Type: BLOOD SPECIMENOrdering Facility: [facility] Address: [address] [place] [address] Performed By: #### 5 7021-8 ####[facility] [id number] [place] [address] [place] WBC (Bld) [#/Vol] 11.48 10*3/uL High 3.70-11.00 [facility] Comment on above: Order Comment: Speci men Type: BLOOD SPECIMENOrdering Facility: [facility] Address: [address] [place] [address] Performed By: #### 5 7021-8 ####[facility] [id number] [place] [address] [place] CT ABD/PEL WO IVCONon 2023 CT ABD/PEL WO IVCON Normal [facility] Comprehensive metabolic 2000 panelon 07-22-2024 Albumin [Mass/Vol] 3.4 g/dL Low 3.9-4.9 [facility] Comment on above: Order Comment: Speci men Type: BLOOD SPECIMENOrdering Facility: [facility] Address: [address] [place] [address] [place] [address] Performed By: #### 3 040-3, [id number], 81100-6 ####[facility] [id number] [place] [address] [place] ALP [Catalytic activity/Vol] 83 U/L Normal 38-113 [facility] Comment on above: Order Comment: Speci men Type: BLOOD SPECIMENOrdering Facility: [facility] Address: [address] [place] [id number] Performed By: #### 3 040-3, [id number], ####[facility] [id number] [place] [address] [place] ALT [Catalytic activity/Vol] U/L Low 10-54 [facility] Comment on above: Order Comment: Speci men Type: BLOOD SPECIMENOrdering Facility: [facility] Address: [address] [place] [address] Performed By: #### 3 040-3, [id number], ####[facility] [id number] [place] [address] [place] Anion gap [Moles/Vol] 11 mmol/L Normal 8-15 [facility] Comment on above: Order Comment: Speci men Type: BLOOD SPECIMENOrdering Facility: [facility] Address: [address] [place] [address] Performed By: #### 3 040-3, [id number], ####[facility] [id number] [place] [address] [place] AST [Catalytic activity/Vol] 21 U/L Normal 14-40 [facility] Comment on above: Order Comment: Speci men Type: BLOOD SPECIMENOrdering Facility: [facility] Address: [address] [place] [id number] Performed By: #### 3 040-3, [id number], ####[facility] [id number] [place] [address] [place] Bilirubin [Mass/Vol] 0.3 mg/dL Normal 0.2-1.3 [facility] Comment on above: Order Comment: Speci men Type: BLOOD SPECIMENOrdering Facility: [facility] Address: [address] [place] [address] Performed By: #### 3 040-3, [id number], 56725-9 ####[facility] [id number] [place] [address] [place] Calcium [Mass/Vol] 9.4 mg/dL Normal 8.5-10.2 [facility] Comment on above: Order Comment: Speci men Type: BLOOD SPECIMENOrdering Facility: [facility] Address: [address] [place] [address] Performed By: #### 3 040-3, [id number], ####[facility] [id number] [place] [address] [place] Chloride [Moles/Vol] 99 mmol/L Normal 98-107 [facility] Comment on above: Order Comment: Speci men Type: BLOOD SPECIMENOrdering Facility: [facility] Address: [address] [place] [address] Performed By: #### 3 040-3, [id number], ####[facility] [id number] [place] [address] [place] CO2 [Moles/Vol] 20 mmol/L Low 22-30 [facility] Comment on above: Order Comment: Speci men Type: BLOOD SPECIMENOrdering Facility: [facility] Address: [address] [place] [address] Performed By: #### 3 040-3, [id number], ####[facility] [id number] [place] [address] [place] Creatinine [Mass/Vol] 2.66 mg/dL High 0.73-1.22 [facility] Comment on above: Order Comment: Speci men Type: BLOOD SPECIMENOrdering Facility: [facility] Address: [address] [place] [address] Performed By: #### 3 040-3, [id number], ####[facility] [id number] [place] [address] [place] Creatinine and Glomerular filtration rate.predicted panel (S/P/Bld) 25 mL/min/1.73m??? Low >=60 [facility] Comment on above: Order Comment: Speci men Type: BLOOD SPECIMENOrdering Facility: [facility] Address: [address] [place] [id number] Result Comment: More mated Glomerular Filtration Rate (eGFR) is calculated using the 2020 CKD-EPI creatinine equation. This equation utilizes serum creatinine, sex, and age as parameters. The creatinine assay has traceable calibration to isotope dilution-mass spectrometry. Refer to KDIGO guidelines for clinical interpretation. In patients with unstable renal function, e.g. those with acute kidney injury, the eGFR may not accurately reflect actual GFR. Performed By: #### 3 040-3, [id number], 73368-9 ####[facility] [id number] [place] [address] [place] Glucose [Mass/Vol] 156 mg/dL High 74-99 [facility] Comment on above: Order Comment: Elizabeth riggs Type: BLOOD SPECIMENOrdering Facility: [facility] Address: [address] [place] [address] Result Comment: The [place] [employer] (ADA) provides guidance for cutoff values for fasting glucose and random glucose. The ADA defines fasting as no caloric intake for at least 8 hours. Fasting plasma glucose results between 100 to 125 mg/dL indicate increased risk for diabetes (prediabetes).Fasting plasma glucose results greater than or equal to 126 mg/dL meet the criteria for diagnosis of diabetes. In the absence of unequivocal hyperglycemia, results should be confirmed by repeat testing. In a patient with classic symptoms of hyperglycemia or hyperglycemic crisis, random plasma glucose results greater than or equal to 200 mg/dL meet the criteria for diagnosis of diabetes.Reference: Standards of Medical Care in Diabetes 2016, [place] [employer]. Diabetes Care. 2016.39(Suppl 1). Performed By: #### 3 040-3, [id number], 76376-7 ####[facility] [id number] [place] [address] [place] Potassium [Moles/Vol] 3.9 mmol/L Normal 3.7-5.1 [facility] Comment on above: Order Comment: [facility] Type: BLOOD SPECIMENOrdering Facility: [facility] Address: [address] [place] [id number] Performed By: #### 3 040-3, [id number], 81680-5 ####[facility] [id number] [place] [address] [place] Protein [Mass/Vol] 6.9 g/dL Normal 6.3-8.0 [facility] Comment on above: Order Comment: Speci men Type: BLOOD SPECIMENOrdering Facility: [facility] Address: [address] [place] [address] Performed By: #### 3 040-3, [id number], 10334-8 ####[facility] [id number] [place] [address] [place] Sodium [Moles/Vol] 130 mmol/L Low 136-144 [facility] Comment on above: Order Comment: Speci men Type: BLOOD SPECIMENOrdering Facility: [facility] Address: [address] [place] [address] Performed By: #### 3 040-3, [id number], 78474-3 ####[facility] [id number] [place] [address] [place] Urea nitrogen [Mass/Vol] 22 mg/dL Normal 9-24 [facility] Comment on above: Order Comment: Speci men Type: BLOOD SPECIMENOrdering Facility: [facility] Address: [address] [place] [address] Performed By: #### 3 040-3, [id number], 13784-8 ####[facility] [id number] [place] [address] [place] ECG COMPLETEon 07-22-2024 ECG COMPLETE [facility] ED NOTEon 07-22-2024 ED NOTE HNO ID: [id number] Author: TEJAS PAUL RN Service: ? Author Type: Registered Nurse Type: ED Notes Filed: 07/22/2024 20:46 Note Text: Step down broadcasted for handoff report. [facility] ED NOTE HNO ID: [id number] Author: TEJAS PAUL RN Service: ? Author Type: Registered Nurse Type: ED Notes Filed: 07/22/2024 19:48 Note Text: Attempted to collect urine from patient. Patient states he is unable to provide sample. Normal [facility] ED NOTE Normal [facility] ED PROV NOTEon 07-22-2024 ED PROV NOTE Normal [facility] HIGH SENSITIVITY TROPONIN T (INITIAL)on 07-22-2024 Troponin T.cardiac High sensitivity method [Mass/Vol] 155 ng/L High <12 [facility] Comment on above: Order Comment: Speci men Type: BLOOD SPECIMENOrdering Facility: [facility] Address: [address] [place] [address] Performed By: #### 3 040-3, [id number], 69270-6 ####[facility] [id number] [address] HIGH SENSITIVITY TROPONIN T (SECOND)on 07-22-2024 Troponin T.cardiac High sensitivity method [Mass/Vol] 143 ng/L High <[address] [place] [address] Comment on above: Order Comment: Speci men Type: BLOOD SPECIMENOrdering Facility: [facility] Address: [address] [place] [address] Performed By: #### L [id number] ####[facility] [id number] [address] HIGH SENSITIVITY TROPONIN T (THIRD) 3 HRS AFTER INITIALon 07-22-2024 Troponin T.cardiac High sensitivity method [Mass/Vol] 143 ng/L High <[address] [place] [address] Comment on above: Order Comment: Speci men Type: BLOOD SPECIMENOrdering Facility: [facility] Address: [address] [place] [address] Performed By: #### L [id number] ####[facility] [id number] [place] [address] [place] HISTORY PHYSICALon 4 HISTORY PHYSICAL Normal [facility] Hemoccult Stl Qlon 4 Hemoglobin.gastrointe stinal Ql (Stl) Positive Abnormal [facility] Comment on above: Performed By: #### 2 335-8 ####[facility] [id number] [place] [address] [place] Lipase SerPl-cCncon 11-09-20 24 Lipase [Catalytic activity/Vol] 16 U/L Normal 16-61 [facility] Comment on above: Order Comment: Speci men Type: BLOOD SPECIMENOrdering Facility: [facility] Address: [address] [place] [address] Performed By: #### 3 040-3, [id number], 30296-0 ####[facility] [id number] [place] [address] [facility] SEPSIS LACTATE W/ REFLEX (IN ITIAL)on 07-22-2024 Lactate [Moles/Vol] 1.5 mmol/L Normal 0.0-2.0 [facility] Comment on above: Order Comment: Speci men Type: BLOOD SPECIMENOrdering Facility: [facility] Address: [address] [place] [address] Performed By: #### S LACTR ####[facility] [id number] [address] TYPE + SCREENon 07-22-2024 ABO A [facility] Comment on above: Order Comment: Speci men Type: BLOOD SPECIMENOrdering Facility: [facility] Address: [address] [place] [address] Performed By: #### T SCR ####[facility] [id number] [place] [address] [facility] Rh Nom (Bld) Negative [facility] Comment on above: Order Comment: Speci men Type: BLOOD SPECIMENOrdering Facility: [facility] Address: [address] [place] [address] Performed By: #### T SCR ####[facility] [id number] [place] [address] [facility] TYPE AND SCREEN EXPIRATION 07/25/2024 23:59 [facility] Comment on above: Order Comment: Speci men Type: BLOOD SPECIMENOrdering Facility: [facility] Address: [address] [place] [address] Performed By: #### T SCR ####[facility] [id number] [place] [address] [place] Dialysis Vein Map PRE-OP CHELO ATon 06-26-2024 Dialysis Vein Map PRE-OP BILAT [facility] [address] [place] [address] Dialysis Vein Map PRE-OP BILAT 06/26/24 0853 MR#: [id number] Acct: [id number] Name: ROZ BAKER Rep #: [id number] : 1950 74 From: Hugo Alvarado MD Attending Dr: Dr. Cindy Falcon MD [facility] tus: REG CLI Ordering Dr: Cindy Falcon MD Date: 06/26 Location: CVS Sex: M C Admitted: Reason For Study: Pre Op Dialysis Right Lower Arm Left Arm Proximal Radial artery diameter 0.28 x 0.26 Left Brachial artery diameter 0.69 x 0.63 mm. mm. Proximal Radial artery waveform is Left Brachial artery waveform is triphasic . triphasic . Cephalic Vein at distal forearm measures Right Arm 0.14 x 0.13 mm. Right Brachial artery diameter 0.72 x 0.70 Cephalic Vein at mid forearm measures 0.13 x mm. 0.15 mm. Right Brachial artery waveform is Cephalic Vein proximal forearm measures 0.15 triphasic . x 0.14 mm. Cephalic Vein at distal forearm measures Cephalic Vein distal upper arm measures 0.31 0.20 x 0.22 mm. x 0.32 mm. Cephalic Vein at mid forearm measures 0.26 x Cephalic Vein at mid upper arm measures 0.11 0.31 mm. x 0.13 mm. Cephalic Vein proximal forearm measures 0.24 Cephalic Vein at proximal upper arm measures x 0.26 mm. 0.11 x 0.12 mm. Unable to visualize Cephalic V throughout Rt Proximal Basilic vein measures 0.33 x 0.30 Upper Arm. Basilic branch appears to connect mm. to cephalic at AC. Mid Basilic vein measures 0.29 x 0.29 mm. Proximal Basilic vein measures 0.63 x 0.56 Distal Basilic vein measures 0.32 x 0.33 mm. mm. Left Lower Arm Mid Basilic vein measures 0.36 x 0.44 mm. Proximal Radial artery diameter 0.39 x 0.36 Distal Basilic vein measures 0.37 x 0.40 mm. mm. Proximal Radial artery waveform is triphasic . VL/Dialysis Vein Map PRE-OP BILAT Interpretation Summary Bilateral upper extremity arteries patent with normal waveforms and measurements above. Bilateral upper extremity veins patent with measurements above. Ordering Physician: Cindy Falcon Referring Physician: Kamron Lepe Performed By: Mykel Browning Waylon ??? 06/26/24 1559 Date Hugo Alvarado MD CC: Dr. Cindy Falcon MD; Dr. Kamron Lepe MD Date Dictated: 06/26/24 0853 Date Transcribed: 06/26/241558 Retail Assistant Manager: Signed [facility] 06-06-2024 [facility] 05-03-2024 [facility] 04-27-2024 [facility] 04-20-2024 [facility] 04-13-2024 [facility] IR TUNNELED HD EXCHANGEon IR TUNNELED HD EXCHANGE ORIGINAL EXAMINATION: TUNNELED CATHETER EXCHANGE WITH FLUOROSCOPY:04/13/2024 2:22 pm HISTORY: ORDERING SYSTEM PROVIDED HISTORY: Reason for Exam: ESRD/ high arterial pressures COMPARISON:[] EXISTING ACCESS SITE: Right internal jugular vein ANESTHESIA: Local MATERIALS: 27 cm cuff to tip; 14.5 Fr x 32 cm Medcomp Hemoflow dialysis catheter 2-0 prolene suture 0.035 Amplatz wire FLUOROSCOPY: 0.7 minutes Total Air Kerma Dose: 12 mGy. PROCEDURE: The procedure, risks, limitations, and alternatives were discussed. All questions were answered. Written informed consent obtained. Accompanying paperwork was verified for accuracy. Directed history and physical exam performed prior to the procedure. Medication reconciliation was performed by nursing personnel. Procedure was performed using a cap, sterile gown, sterile gloves, a large sterile sheet, hand hygiene and hospital-approved cutaneous antisepsis. The patient was positioned supine on the angiographic table and prepped and draped in usual sterile fashion. A critical pause was performed with assisting personnel just prior to the procedure with the patient's identity confirmed using 2 identifiers, confirming site and side. A wire was placed through the existing catheter into the IVC. After administration of lidocaine, the cuff was freed up with blunt dissection. The old catheter was exchanged for a new catheter over the wire. The cuff is located adjacent to the catheter site in the upper chest to facilitate easier removal in the future. Both lumens aspirate and flush very quickly. Both lumens were flushed with saline. Sterile caps attached. Fluoroscopy demonstrates the catheter tip in the upper right atrium. A documentation fluoroscopic image obtained. The catheter was fixed to the skin with suture. A sterile dressing was applied. COMPLICATIONS: None. EBL: 10 mL PATIENT CONDITION: Stable, unchanged. None IMPRESSION: 1. Successful uncomplicated exchange of a tunneled hemodialysis catheter with the tip in the upper right atrium. The procedure was performed by Nora Dutta, Physician Ladle Liner Helper. I concur with the contents of the report. Interpreted by: Nelli Bustillos MD Preliminary Report By: Nora Dutta PA-C Electronically signed By Nelli Bustillos MD Dictated Date: 04/13/2024 3:37:31 PM Prelim Date: 04/13/2024 3:38:51 PM Sign Date: 04/13/2024 9:52:39 PM Ordering Provider: CINDY FALCON [facility] [place] CNOV 04-06-2024 [facility] 04-03-2024 [facility] CNOVon 03-31-2024 [facility] ECG COMPLETEon 03-31-2024 ECG COMPLETE [facility] 03-20-2024 [facility] FOLATESon 03-14-2024 FOLATES 2.8 ng/ml Low 8.6 - 58.9 [facility] Comment on above: Performed By: #### 2 07840 #### [facility],[address] [place] [address] 70915 IRONon 03-14-2024 Iron [Mass/Vol] 13 ug/dL Low 65 - 175 [facility] Comment on above: Performed By: #### 2 40229 #### [facility],[address] [place] [address] 94573 VITAMIN B-12on 03-14-2024 Cobalamin (Vitamin B12) [Mass/Vol] 409 pg/mL Normal 193 - 986 [facility] Comment on above: Performed By: #### 2 17018 #### [facility],[address] [place] [address] 01957 BMP with eGFRon 03-13-2024 AGE 73 years Normal [facility] Comment on above: Performed By: #### 2 83747 #### [facility],[address] [place] [address] 36561 Anion gap [Moles/Vol] 13 mmol/L Normal 10 - 20 [facility] Comment on above: Performed By: #### 2 52767 #### [facility],[address] [place] [address] 70726 BMP with eGFR Normal [facility] Comment on above: Result Comment: BASI C METABOLIC PANEL Performed By: #### 2 17447 #### [facility],[address] [place] [address] 95410 Calcium [Mass/Vol] 7.9 mg/dL Low 8.5 - 10.1 [facility] Comment on above: Performed By: #### 2 67151 #### [facility],[address] [place] [address] 98465 Chloride [Moles/Vol] 101 mmol/L Normal 98 - 107 [facility] Comment on above: Performed By: #### 2 64690 #### [facility],[address] [place] [address] 22619 CO2 [Moles/Vol] 25.7 mmol/L Normal 21.0 - 32.0 [facility] Comment on above: Performed By: #### 2 49381 #### [facility],[address] [place] [address] 74717 Creatinine [Mass/Vol] 3.81 mg/dL High 0.70 - 1.30 [facility] Comment on above: Performed By: #### 2 40634 #### [facility],[address] [place] [address] 50878 eGFR 16 ML/MINUTE Low 60 - 999 [facility] Comment on above: Performed By: #### 2 83461 #### [facility],[address] [place] [address] 48744 eGFR(AA) 19 ML/MINUTE Low 60 - 999 [facility] Comment on above: Result Comment: ACCO RDING TO THE NATIONAL KIDNEY DISEASE EDUCATION PROGRAM(NKDE), A NORMAL eGFR IS A VALUE GREATER THAN OR EQUAL TO 60 ML/MIN/1.73 SQ METERS. CHRONIC KIDNEY DISEASE: <60mL/MIN/1.73 SQ METERS KIDNEY FAILURE: <15mL/MIN/1.73 SQ METERS THIS TEST SHOULD ONLY BE USED FOR PATIENTS 18 YEARS OF AGE AND OLDER. Performed By: #### 2 18479 #### [facility],[address] [place] [address] 91165 Glucose [Mass/Vol] 94 mg/dL Normal 74 - 106 [facility] Comment on above: Performed By: #### 2 12696 #### [facility],[address] [place] [address] 17387 Potassium [Moles/Vol] 4.4 mmol/L Normal 3.5 - 5.1 [facility] Comment on above: Performed By: #### 2 00320 #### [facility],[address] [place] [address] 38856 Sodium [Moles/Vol] 135 mmol/L Low 136 - 145 [facility] Comment on above: Performed By: #### 2 88417 #### [facility],[address] [place] [address] Urea nitrogen [Mass/Vol] 40 mg/dL High 7 - 18 [facility] Comment on above: Result Comment: CO2 AND BUN REPEATED Performed By: #### 2 65003 #### [facility],[address] [place] [address] CBC + DIFFon 03-13-2024 Baso # 0.03 x10EE3/UL Normal 0.00 - 0.10 [facility] Comment on above: Performed By: #### 2 02274 #### [facility],[address] [place], [place] [id number] Basophils/100 WBC (Bld) 0.4 % Normal 0.0 - 2.0 [facility] Comment on above: Performed By: #### 2 21139 #### [facility],[address] [place] [address] CBC + DIFF Normal [facility] Comment on above: Result Comment: CBC- COMPLETE BLOOD COUNT Performed By: #### 2 97931 #### [facility],[address] [place] [address] EO # 0.12 x10EE3/UL Normal 0.00 - 0.50 [facility] Comment on above: Performed By: #### 2 03890 #### [facility],[address] [place], [place] [phone] Eosinophils/100 WBC (Bld) 1.6 % Normal 0.0 - 7.0 [facility] Comment on above: Performed By: #### 2 55410 #### [facility],[address] [place] [address] Erythrocyte distribution width (RBC) [Ratio] 16.7 % High 12.0 - 15.6 [facility] Comment on above: Performed By: #### 2 41066 #### [facility],[address] [place], [place] [phone] Hematocrit (Bld) [Volume fraction] 25.2 % Low 40.0 - 52.0 [facility] Comment on above: Performed By: #### 2 69293 #### [facility],[address] [place] [address] 01843 Hemoglobin (Bld) [Mass/Vol] 8.0 g/dL Low 13.0 - 17.5 [facility] Comment on above: Performed By: #### 2 44563 #### [facility],[address] [place] [address] Lymph # 1.46 x10EE3/UL Normal 0.80 - 2.80 [facility] Comment on above: Performed By: #### 2 87502 #### [facility],[address] [place], [place] [phone] Lymphocytes/100 WBC (Bld) 19.6 % Low 20.0 - 45.0 [facility] Comment on above: Performed By: #### 2 62907 #### [facility],[address] [place] [address] 70015 MANUAL DIFF N/A Normal [facility] Comment on above: Performed By: #### 2 15530 #### [facility],[address] [place], [place] [phone] MCH (RBC) [Entitic mass] 29 pg Normal 27 - 33 [facility] Comment on above: Performed By: #### 2 12440 #### [facility],[address] [place], [place] [id number] MCHC 32 X10 3 Normal 32 - 36 [facility] Comment on above: Performed By: #### 2 55704 #### [facility],[address] [place] [address] 21807 MCV (RBC) [Entitic vol] 89 fL Normal 81 - 98 [facility] Comment on above: Performed By: #### 2 20608 #### [facility],[address] [place] [address] 77848 Loving # 0.77 x10EE3/UL Normal 0.20 - 1.00 [facility] Comment on above: Performed By: #### 2 11729 #### [facility],[address] [place] [address] 21422 MONOS % 10.4 % High 0.0 - 10.0 [facility] Comment on above: Performed By: #### 2 44190 #### [facility],[address] [place] [address] 64531 Morphology Kyle (Bld) [Interp] N/A Normal [facility] Comment on above: Performed By: #### 2 56567 #### [facility],[address] [place] [address] 06214 Neut # 5.05 x10EE3/UL Normal 1.50 - 7.10 [facility] Comment on above: Performed By: #### 2 74432 #### [facility],[address] [place] [address] 32767 Neutrophils/100 WBC (Bld) 68.0 % Normal 46.0 - 76.0 [facility] Comment on above: Performed By: #### 2 31045 #### [facility],[address] [place] [address] 23567 PLATELET 240 x10EE3/UL Normal 150 - 450 [facility] Comment on above: Performed By: #### 2 12169 #### [facility],[address] [place] [address] 05531 Platelet mean volume (Bld) [Entitic vol] 7.8 fL Normal 6.4 - 10.5 [facility] Comment on above: Result Comment: AUTO MATED DIFFERENTIAL Performed By: #### 2 15729 #### [facility],[address] [place] [address] 59710 RBC 2.82 x 10EE6/UL Low 4.50 - 6.00 [facility] Comment on above: Performed By: #### 2 33614 #### [facility],[address] [place] [address] 64393 WBC 7.4 x 10EE3/UL Normal 4.5 - 10.8 [facility] Comment on above: Performed By: #### 2 71950 #### [facility],[address] [place] [address] 22975 CNPNon 03-13-2024 CNPN Normal [facility] HEMOGLOBIN A1C (POM)on 03-13 Glucose [Mass/Vol] 114.0 mg/dL High 0.0 - 0.0 [facility] Comment on above: Result Comment: [facility] HEMOGLOBIN A1C REFERENCE RANGESBLDo Suggested Diagnosis HbA1c(%) HbA1C (mmol/mol Diabetic >/=6.5 >/=48 Prediabetes 5.7 - 6.4 39 - 47 Normal <5.7 <39 Performed By: #### 2 30761 #### [facility],[address] [place] [address] 86027 HbA1c (Bld) [Mass fraction] 5.6 % Normal 0.0 - 6.5 [facility] Comment on above: Performed By: #### 2 37113 #### [facility],[address] [place] [address] 62674 Basic metabolic 2000 panelon 03-11-2024 Anion gap [Moles/Vol] 7 mmol/L Low 8-15 [facility] Comment on above: Order Comment: Speci men Type: BLOOD SPECIMENOrdering Facility: [facility] Address: [address] [place] [address] Performed By: #### 2 4321-2, , 2776-09 ####[facility] LABCLIA [id number] [place] [address] [place] [facility] Calcium [Mass/Vol] 7.7 mg/dL Low 8.5-10.2 [facility] Comment on above: Order Comment: Speci men Type: BLOOD SPECIMENOrdering Facility: [facility] Address: [address] [place] [address] Performed By: #### 2 4321-2, , 2776-09 ####[facility] [id number] [place] [address] [place] Chloride [Moles/Vol] 102 mmol/L Normal 98-107 [facility] Comment on above: Order Comment: Speci men Type: BLOOD SPECIMENOrdering Facility: [facility] Address: [address] [place] [address] Performed By: #### 2 4321-2, , 2776-09 ####[facility]IA [id number] [place] [address] [place] CO2 [Moles/Vol] 26 mmol/L Normal 22-30 [facility] Comment on above: Order Comment: Speci men Type: BLOOD SPECIMENOrdering Facility: [facility] Address: [address] [place] [address] Performed By: #### 2 4321-2, , 2776-09 ####[facility] [id number] [place] [address] [place] Creatinine [Mass/Vol] 2.80 mg/dL High 0.73-1.22 [facility] Comment on above: Order Comment: Speci men Type: BLOOD SPECIMENOrdering Facility: [facility] Address: [address] [place] [address] Performed By: #### 2 4321-2, , 2776-09 ####[facility] [id number] [place] [address] [place] [facility] Creatinine and Glomerular filtration rate.predicted panel (S/P/Bld) 23 mL/min/1.73m??? Low >=60 [facility] Comment on above: Order Comment: Speci men Type: BLOOD SPECIMENOrdering Facility: [facility] Address: [address] [place] [address] Result Comment: More mated Glomerular Filtration Rate (eGFR) is calculated using the 2020 CKD-EPI creatinine equation. This equation utilizes serum creatinine, sex, and age as parameters. The creatinine assay has traceable calibration to isotope dilution-mass spectrometry. Refer to KDIGO guidelines for clinical interpretation. In patients with unstable renal function, e.g. those with acute kidney injury, the eGFR may not accurately reflect actual GFR. Performed By: #### 2 4321-2, , 2776-09 ####[facility]IA [id number] [place] [address] [place] Glucose [Mass/Vol] 119 mg/dL High 74-99 [facility] Comment on above: Order Comment: Elizabeth riggs Type: BLOOD SPECIMENOrdering Facility: [facility] Address: [address] [place] [id number] Result Comment: The [place] Diabetes Association (ADA) provides guidance for cutoff values for fasting glucose and random glucose. The ADA defines fasting as no caloric intake for at least 8 hours. Fasting plasma glucose results between 100 to 125 mg/dL indicate increased risk for diabetes (prediabetes).Fasting plasma glucose results greater than or equal to 126 mg/dL meet the criteria for diagnosis of diabetes. In the absence of unequivocal hyperglycemia, results should be confirmed by repeat testing. In a patient with classic symptoms of hyperglycemia or hyperglycemic crisis, random plasma glucose results greater than or equal to 200 mg/dL meet the criteria for diagnosis of diabetes.Reference: Standards of Medical Care in Diabetes 2016, [place] [employer]. Diabetes Care. 2016.39(Suppl 1). Performed By: #### 2 4321-2, , 2776-09 ####[facility] [id number] [place] [address] [place] Potassium [Moles/Vol] 4.1 mmol/L Normal 3.7-5.1 [facility] Comment on above: Order Comment: Elizabeth riggs Type: BLOOD SPECIMENOrdering Facility: [facility] Address: [address] [place] [address] Performed By: #### 2 4321-2, , 2776-09 ####[facility] [id number] [place] [address] [place] Sodium [Moles/Vol] 135 mmol/L Low 136-144 [facility] Comment on above: Order Comment: Elizabeth riggs Type: BLOOD SPECIMENOrdering Facility: [facility] Address: [address] [place] [address] Performed By: #### 2 4321-2, , 2776-09 ####[facility]IA [id number] [place] [address] [place] Urea nitrogen [Mass/Vol] 30 mg/dL High 9-24 [facility] Comment on above: Order Comment: Speci men Type: BLOOD SPECIMENOrdering Facility: [facility] Address: [address] [place] [address] Performed By: #### 2 4321-2, , 2776-09 ####[facility] LABIA [id number] [place] [id number] [place] CASE MANAGEMon 03-11-2024 CASE MANAGEM [facility] CNDSon 03-11-2024 CNDS [facility] Magnesium SerPl-mCncon 03-11 Magnesium [Mass/Vol] 1.6 mg/dL Low 1.7-2.3 [facility] Comment on above: Order Comment: Speci men Type: BLOOD SPECIMENOrdering Facility: [facility] Address: [address] [place] [address] Performed By: #### 2 4321-2, , 2776-09 ####[facility] [id number] [place] [id number] [place] Phosphate SerPl-mCncon 03-11 Phosphate [Mass/Vol] 2.4 mg/dL Low 2.7-4.8 [facility] Comment on above: Order Comment: Speci men Type: BLOOD SPECIMENOrdering Facility: [facility] Address: [address] [place] [address] Performed By: #### 2 4321-2, , 2776-09 ####[facility] [id number] [place] [address] [place] THERAPY NTon 03-11-2024 THERAPY NT [facility] [id number] 03-10-2024 [id number] [facility] Basic metabolic 2000 panelon 03-10-2024 Anion gap [Moles/Vol] 8 mmol/L Normal 8-15 [facility] Comment on above: Order Comment: Speci men Type: BLOOD SPECIMENOrdering Facility: [facility] Address: [address] [place] [address] Performed By: #### 2 4321-2 ####[facility] [id number] [place] [address] [place] Calcium [Mass/Vol] 7.9 mg/dL Low 8.5-10.2 [facility] Comment on above: Order Comment: Speci men Type: BLOOD SPECIMENOrdering Facility: [facility] Address: [address] [place] [address] Performed By: #### 2 4321-2 ####[facility] [id number] [place] [address] [place] Chloride [Moles/Vol] 104 mmol/L Normal 98-107 [facility] Comment on above: Order Comment: Speci men Type: BLOOD SPECIMENOrdering Facility: [facility] Address: [address] [place] [address] Performed By: #### 2 4321-2 ####[facility] [id number] [place] [address] [place] CO2 [Moles/Vol] 23 mmol/L Normal 22-30 [facility] Comment on above: Order Comment: Speci men Type: BLOOD SPECIMENOrdering Facility: [facility] Address: [address] [place] [address] Performed By: #### 2 4321-2 ####[facility] [id number] [place] [address] [place] Creatinine [Mass/Vol] 3.29 mg/dL High 0.73-1.22 [facility] Comment on above: Order Comment: Speci men Type: BLOOD SPECIMENOrdering Facility: [facility] Address: [address] [place] [address] Performed By: #### 2 4321-2 ####[facility] [id number] [place] [address] [place] Creatinine and Glomerular filtration rate.predicted panel (S/P/Bld) 19 mL/min/1.73m??? Low >=60 [facility] Comment on above: Order Comment: Elizabeth riggs Type: BLOOD SPECIMENOrdering Facility: [facility] Address: [address] [place] [address] Result Comment: More mated Glomerular Filtration Rate (eGFR) is calculated using the 2020 CKD-EPI creatinine equation. This equation utilizes serum creatinine, sex, and age as parameters. The creatinine assay has traceable calibration to isotope dilution-mass spectrometry. Refer to KDIGO guidelines for clinical interpretation. In patients with unstable renal function, e.g. those with acute kidney injury, the eGFR may not accurately reflect actual GFR. Performed By: #### 2 4321-2 ####[facility] [id number] [place] [address] [place] Glucose [Mass/Vol] 98 mg/dL Normal 74-99 [facility] Comment on above: Order Comment: Elizabeth riggs Type: BLOOD SPECIMENOrdering Facility: [facility] Address: [address] [place] [address] Result Comment: The [place] Diabetes Association (ADA) provides guidance for cutoff values for fasting glucose and random glucose. The ADA defines fasting as no caloric intake for at least 8 hours. Fasting plasma glucose results between 100 to 125 mg/dL indicate increased risk for diabetes (prediabetes).Fasting plasma glucose results greater than or equal to 126 mg/dL meet the criteria for diagnosis of diabetes. In the absence of unequivocal hyperglycemia, results should be confirmed by repeat testing. In a patient with classic symptoms of hyperglycemia or hyperglycemic crisis, random plasma glucose results greater than or equal to 200 mg/dL meet the criteria for diagnosis of diabetes.Reference: Standards of Medical Care in Diabetes 2016, [place] [employer]. Diabetes Care. 2016.39(Suppl 1). Performed By: #### 2 4321-2 ####[facility] [id number] [place] [address] [place] Potassium [Moles/Vol] 3.9 mmol/L Normal 3.7-5.1 [facility] Comment on above: Order Comment: Speci men Type: BLOOD SPECIMENOrdering Facility: [facility] Address: [address] [place] [address] Performed By: #### 2 4321-2 ####[facility] [id number] [place] [address] [place] Sodium [Moles/Vol] 135 mmol/L Low 136-144 [facility] Comment on above: Order Comment: Speci men Type: BLOOD SPECIMENOrdering Facility: [facility] Address: [address] [place] [address] Performed By: #### 2 4321-2 ####[facility] [id number] [place] [address] [place] Urea nitrogen [Mass/Vol] 46 mg/dL High 9-24 [facility] Comment on above: Order Comment: Speci men Type: BLOOD SPECIMENOrdering Facility: [facility] Address: [address] [place] [address] Performed By: #### 2 4321-2 ####[facility] [id number] [place] [address] [place] CASE MANAGEMon 03-10-2024 CASE MANAGEM [facility] NUTRITIONon 03-10-2024 NUTRITION [facility] THERAPY NTon 03-10-2024 THERAPY [facility] CASE MANAGEMon 03-09-2024 CASE MANAGEM [facility] THERAPY NTon 03-09-2024 THERAPY [facility] THERAPY [facility] Basic metabolic 2000 panelon 03-08-2024 Anion gap [Moles/Vol] 12 mmol/L Normal 8-15 [facility] Comment on above: Order Comment: Speci men Type: BLOOD SPECIMENOrdering Facility: [facility] Address: [address] [place], [place] [address] Performed By: #### 2 4321-2 ####[facility] [id number] [place] [address] [place] Calcium [Mass/Vol] 8.2 mg/dL Low 8.5-10.2 [facility] Comment on above: Order Comment: Speci men Type: BLOOD SPECIMENOrdering Facility: [facility] Address: [address] [place] [address] Performed By: #### 2 4321-2 ####[facility] [id number] [place] [address] [place] [facility] Chloride [Moles/Vol] 104 mmol/L Normal 98-107 [facility] Comment on above: Order Comment: Speci men Type: BLOOD SPECIMENOrdering Facility: [facility] Address: [address] [place] [address] Performed By: #### 2 4321-2 ####[facility] [id number] [place] [address] [place] CO2 [Moles/Vol] 19 mmol/L Low 22-30 [facility] Comment on above: Order Comment: Speci men Type: BLOOD SPECIMENOrdering Facility: [facility] Address: [address] [place] [address] Performed By: #### 2 4321-2 ####[facility] [id number] [place] [address] [place] Creatinine [Mass/Vol] 4.75 mg/dL High 0.73-1.22 [facility] Comment on above: Order Comment: Speci men Type: BLOOD SPECIMENOrdering Facility: [facility] Address: [address] [place] [address] Performed By: #### 2 4321-2 ####[facility] [id number] [place] [address] [facility] Creatinine and Glomerular filtration rate.predicted panel (S/P/Bld) 12 mL/min/1.73m??? Low >=60 [facility] Comment on above: Order Comment: Speci men Type: BLOOD SPECIMENOrdering Facility: [facility] Address: [address] [place] [address] Result Comment: More mated Glomerular Filtration Rate (eGFR) is calculated using the 2020 CKD-EPI creatinine equation. This equation utilizes serum creatinine, sex, and age as parameters. The creatinine assay has traceable calibration to isotope dilution-mass spectrometry. Refer to KDIGO guidelines for clinical interpretation. In patients with unstable renal function, e.g. those with acute kidney injury, the eGFR may not accurately reflect actual GFR. Performed By: #### 2 4321-2 ####[facility]CL[facility] [id number] [place] [address] [place] Glucose [Mass/Vol] 100 mg/dL High 74-99 [facility] Comment on above: Order Comment: Elizabeth riggs Type: BLOOD SPECIMENOrdering Facility: [facility] Address: [address] [place] [address] Result Comment: The [place] Diabetes Association (ADA) provides guidance for cutoff values for fasting glucose and random glucose. The ADA defines fasting as no caloric intake for at least 8 hours. Fasting plasma glucose results between 100 to 125 mg/dL indicate increased risk for diabetes (prediabetes).Fasting plasma glucose results greater than or equal to 126 mg/dL meet the criteria for diagnosis of diabetes. In the absence of unequivocal hyperglycemia, results should be confirmed by repeat testing. In a patient with classic symptoms of hyperglycemia or hyperglycemic crisis, random plasma glucose results greater than or equal to 200 mg/dL meet the criteria for diagnosis of diabetes.Reference: Standards of Medical Care in Diabetes 2016, [place] [employer]. Diabetes Care. 2016.39(Suppl 1). Performed By: #### 2 4321-2 ####[facility] LABIA [id number] [place] [address] [place] Potassium [Moles/Vol] 4.3 mmol/L Normal 3.7-5.1 [facility] Comment on above: Order Comment: Elizabeth riggs Type: BLOOD SPECIMENOrdering Facility: [facility] Address: [address] [place] [address] Performed By: #### 2 4321-2 ####[facility] [id number] [place] [address] [place] Sodium [Moles/Vol] 135 mmol/L Low 136-144 [facility] Comment on above: Order Comment: Elizabeth riggs Type: BLOOD SPECIMENOrdering Facility: [facility] Address: [address] [place] [address] Performed By: #### 2 4321-2 ####[facility]CL[facility] [id number] [place] [address] [place] Urea nitrogen [Mass/Vol] 89 mg/dL High 9-24 [facility] Comment on above: Order Comment: Speci men Type: BLOOD SPECIMENOrdering Facility: [facility] Address: [address] [place] [address] Performed By: #### 2 4321-2 ####[facility]IA [id number] [place] [address] [place] CASE MANAGEMon 03-08-2024 CASE MANAGEM [facility] NURSING PROGon 03-08-2024 NURSING PROG [facility] THERAPY NTon 03-08-2024 THERAPY NT [facility] Basic metabolic 2000 panelon 03-07-2024 Anion gap [Moles/Vol] 13 mmol/L Normal 8-15 [facility] Comment on above: Order Comment: Speci men Type: BLOOD SPECIMENOrdering Facility: [facility] Address: [address] [place] [address] Performed By: #### 2 4321-2 ####[facility] [id number] [place] [address] [place] Calcium [Mass/Vol] 8.8 mg/dL Normal 8.5-10.2 [facility] Comment on above: Order Comment: Speci men Type: BLOOD SPECIMENOrdering Facility: [facility] Address: [address] [place] [address] Performed By: #### 2 4321-2 ####[facility] [id number] [place] [address] [place] Chloride [Moles/Vol] 104 mmol/L Normal 98-107 [facility] Comment on above: Order Comment: Speci men Type: BLOOD SPECIMENOrdering Facility: [facility] Address: [address] [place] [address] Performed By: #### 2 4321-2 ####[facility] [id number] [place] [address] [place] CO2 [Moles/Vol] 18 mmol/L Low 22-30 [facility] Comment on above: Order Comment: Speci keely Type: BLOOD SPECIMENOrdering Facility: [facility] Address: [address] [place] [address] Performed By: #### 2 4321-2 ####[facility] [id number] [place] [address] [place] Creatinine [Mass/Vol] 4.91 mg/dL High 0.73-1.22 [facility] Comment on above: Order Comment: Speci men Type: BLOOD SPECIMENOrdering Facility: [facility] Address: [address] [place] [address] Performed By: #### 2 4321-2 ####[facility] [id number] [address] Creatinine and Glomerular filtration rate.predicted panel (S/P/Bld) 12 mL/min/1.73m??? Low >=60 [facility] Comment on above: Order Comment: Sydnii men Type: BLOOD SPECIMENOrdering Facility: [facility] Address: [address] [place] [address] Result Comment: More mated Glomerular Filtration Rate (eGFR) is calculated using the 2020 CKD-EPI creatinine equation. This equation utilizes serum creatinine, sex, and age as parameters. The creatinine assay has traceable calibration to isotope dilution-mass spectrometry. Refer to KDIGO guidelines for clinical interpretation. In patients with unstable renal function, e.g. those with acute kidney injury, the eGFR may not accurately reflect actual GFR. Performed By: #### 2 4321-2 ####[facility] [id number] [place] [address] [place] Glucose [Mass/Vol] 103 mg/dL High 74-99 [facility] Comment on above: Order Comment: Sydnii keely Type: BLOOD SPECIMENOrdering Facility: [facility] Address: [address] [place] [address] Result Comment: The [place] Diabetes Association (ADA) provides guidance for cutoff values for fasting glucose and random glucose. The ADA defines fasting as no caloric intake for at least 8 hours. Fasting plasma glucose results between 100 to 125 mg/dL indicate increased risk for diabetes (prediabetes).Fasting plasma glucose results greater than or equal to 126 mg/dL meet the criteria for diagnosis of diabetes. In the absence of unequivocal hyperglycemia, results should be confirmed by repeat testing. In a patient with classic symptoms of hyperglycemia or hyperglycemic crisis, random plasma glucose results greater than or equal to 200 mg/dL meet the criteria for diagnosis of diabetes.Reference: Standards of Medical Care in Diabetes 2016, [place] Diabetes Association. Diabetes Care. 2016.39(Suppl 1). Performed By: #### 2 4321-2 ####[facility] [id number] [place] [address] [place] Potassium [Moles/Vol] 4.5 mmol/L Normal 3.7-5.1 [facility] Comment on above: Order Comment: Speci keely Type: BLOOD SPECIMENOrdering Facility: [facility] Address: [address] [place] [address] Performed By: #### 2 4321-2 ####[facility] [id number] [place] [address] [place] Sodium [Moles/Vol] 135 mmol/L Low 136-144 [facility] Comment on above: Order Comment: Sydnii keely Type: BLOOD SPECIMENOrdering Facility: [facility] Address: [address] [place] [address] Performed By: #### 2 4321-2 ####[facility] [id number] [place] [address] [place] Urea nitrogen [Mass/Vol] 95 mg/dL High 9-24 [facility] Comment on above: Order Comment: Sydnii men Type: BLOOD SPECIMENOrdering Facility: [facility] Address: [address] [place] [address] Performed By: #### 2 4321-2 ####[facility] [id number] [place] [address] [place] CASE MANAGEMon 03-07-2024 CASE MANAGEM [facility] CONSULT PROGon 03-07-2024 CONSULT PROG [facility] HBV core IgM Ser Qlon 2023 HBV core IgM Ql (S) Negative Normal Negative [facility] Comment on above: Order Comment: Speci men Type: BLOOD SPECIMENOrdering Facility: [facility] Address: [address] [place] [address] Result Comment: No e vidence of recent infection with Hepatitis B virus. Should recent infection be suspected, repeat testing may be considered 3-4 weeks after this draw. Performed By: #### 3 1204-1 ####[facility] LABCLIA [id number] [address] STATES [place] [facility] HBV surface Ab Ql (S)on 02-12 HBV surface Ab Qn (S) <3.50 [facility] Comment on above: Order Comment: Speci men Type: BLOOD SPECIMENOrdering Facility: [facility] Address: [address] [place] [address] Result Comment: <8.5 mIU/mL: No serological evidence of immunity to Hepatitis B Virus.>/= 8.5 to <11.5 mIU/mL: No serological evidence of immunity to Hepatitis B Virus.>/= 11.5 mIU/mL: Consistent with serological evidence of immunity to Hepatitis B Virus. Performed By: #### 2 2322-2 ####[facility] [id number] [address] HBV surface Ab Ser Qlon 02-12 HBV surface Ab Ql (S) Negative [facility] Comment on above: Order Comment: Speci men Type: BLOOD SPECIMENOrdering Facility: [facility] Address: [address] [place] [address] Result Comment: No s erological evidence of immunity to Hepatitis B Virus. Performed By: #### 2 2322-2 ####[facility] [id number] [address] HBV surface Ag Ser Qlon 02-12 HBV surface Ag Ql (S) Negative Normal Negative [facility] Comment on above: Order Comment: Speci [facility] Type: BLOOD SPECIMENOrdering Facility: [facility] Address: [address] [place] [address] Performed By: #### 5 195-3 ####[facility] [id number] [place] [address] [place] THERAPY NTon 03-07-2024 THERAPY NT Normal [facility] THERAPY NT Normal [facility] Basic metabolic 2000 panelon 03-06-2024 Anion gap [Moles/Vol] 14 mmol/L Normal 8-15 [facility] Comment on above: Order Comment: Speci men Type: BLOOD SPECIMENOrdering Facility: [facility] Address: [address] [place] [address] Performed By: #### 2 777-1, 01302-0, ####[facility] [id number] [place] [address] [place] Calcium [Mass/Vol] 8.6 mg/dL Normal 8.5-10.2 [facility] Comment on above: Order Comment: Speci men Type: BLOOD SPECIMENOrdering Facility: [facility] Address: [address] [place], [place] [address] Performed By: #### 2 777-1, 44866-3, ####[facility] [id number] [place] [address] [place] Chloride [Moles/Vol] 109 mmol/L High 98-107 [facility] Comment on above: Order Comment: Speci men Type: BLOOD SPECIMENOrdering Facility: [facility] Address: [address] [place] [address] Performed By: #### 2 777-1, 44225-7, ####[facility] [id number] [place] [address] [place] CO2 [Moles/Vol] 15 mmol/L Low 22-30 [facility] Comment on above: Order Comment: Speci men Type: BLOOD SPECIMENOrdering Facility: [facility] Address: [address] [place] [address] Performed By: #### 2 777-1, 02033-0, ####[facility] [id number] [place] [address] [place] Creatinine [Mass/Vol] 4.85 mg/dL High 0.73-1.22 [facility] Comment on above: Order Comment: Elizabeth riggs Type: BLOOD SPECIMENOrdering Facility: [facility] Address: [address] [place] [address] Performed By: #### 2 777-1, 99597-8, ####[facility] LABIA [id number] [place] [address] [employer] [facility] Creatinine and Glomerular filtration rate.predicted panel (S/P/Bld) 12 mL/min/1.73m??? Low >=60 [facility] Comment on above: Order Comment: Elizabeth riggs Type: BLOOD SPECIMENOrdering Facility: [facility] Address: [address] [place] [address] Result Comment: More mated Glomerular Filtration Rate (eGFR) is calculated using the 2020 CKD-EPI creatinine equation. This equation utilizes serum creatinine, sex, and age as parameters. The creatinine assay has traceable calibration to isotope dilution-mass spectrometry. Refer to KDIGO guidelines for clinical interpretation. In patients with unstable renal function, e.g. those with acute kidney injury, the eGFR may not accurately reflect actual GFR. Performed By: #### 2 777-1, 51577-4, ####[facility] [id number] [place] [address] [place] Glucose [Mass/Vol] 97 mg/dL Normal 74-99 [facility] Comment on above: Order Comment: Elizabeth riggs Type: BLOOD SPECIMENOrdering Facility: [facility] Address: [address] [place] [address] Result Comment: The [place] Diabetes Association (ADA) provides guidance for cutoff values for fasting glucose and random glucose. The ADA defines fasting as no caloric intake for at least 8 hours. Fasting plasma glucose results between 100 to 125 mg/dL indicate increased risk for diabetes (prediabetes).Fasting plasma glucose results greater than or equal to 126 mg/dL meet the criteria for diagnosis of diabetes. In the absence of unequivocal hyperglycemia, results should be confirmed by repeat testing. In a patient with classic symptoms of hyperglycemia or hyperglycemic crisis, random plasma glucose results greater than or equal to 200 mg/dL meet the criteria for diagnosis of diabetes.Reference: Standards of Medical Care in Diabetes 2016, [place] [employer]. Diabetes Care. 2016.39(Suppl 1). Performed By: #### 2 777-1, 46753-8, ####[facility] [id number] [place] [address] [place] Potassium [Moles/Vol] 4.7 mmol/L Normal 3.7-5.1 [facility] Comment on above: Order Comment: Speci men Type: BLOOD SPECIMENOrdering Facility: [facility] Address: [address] [place] [address] Performed By: #### 2 777-1, , ####[facility] [id number] [place] [address] [place] Sodium [Moles/Vol] 138 mmol/L Normal 136-144 [facility] Comment on above: Order Comment: Speci men Type: BLOOD SPECIMENOrdering Facility: [facility] Address: [address] [place] [address] Performed By: #### 2 777-1, , ####[facility] [id number] [place] [address] [place] Urea nitrogen [Mass/Vol] 94 mg/dL High 06-06 [facility] Comment on above: Order Comment: Speci men Type: BLOOD SPECIMENOrdering Facility: [facility] Address: [address] [place] [address] Performed By: #### 2 777-1, , ####[facility]IA [id number] [place] [address] [place] CASE MGT INIT ASSESon 2023 CASE MGT INIT ASSES Normal [facility] CBC W Auto Differential pane l (Bld)on 03-06-2024 Basophils (Bld) [#/Vol] 10*3/uL Normal <0.11 [facility] Comment on above: Order Comment: Speci men Type: BLOOD SPECIMENOrdering Facility: [facility] Address: [address] [place] [address] Performed By: #### 5 7021-8 ####[facility]CLIA [id number] [place] [address] [place] Basophils/100 WBC (Bld) 0.4 % Normal [facility] Comment on above: Order Comment: Speci men Type: BLOOD SPECIMENOrdering Facility: [facility] Address: [address] [place] [address] Performed By: #### 5 7021-8 ####[facility] [id number] [place] [address] [place] Differential cell count method Nom (Bld) Auto Normal [facility] Comment on above: Order Comment: Speci men Type: BLOOD SPECIMENOrdering Facility: [facility] Address: [address] [place] [address] Performed By: #### 5 7021-8 ####[facility] [id number] [place] [address] [place] Eosinophils (Bld) [#/Vol] 0.09 10*3/uL Normal <0.46 [facility] Comment on above: Order Comment: Speci men Type: BLOOD SPECIMENOrdering Facility: [facility] Address: [address] [place] [address] Performed By: #### 5 7021-8 ####[facility]CL[facility] [id number] [place] [address] [place] Eosinophils/100 WBC (Bld) 1.6 % Normal [facility] Comment on above: Order Comment: Speci men Type: BLOOD SPECIMENOrdering Facility: [facility] Address: [address] [place] [address] Performed By: #### 5 7021-8 ####[facility]CLIA [id number] [place] [address] [place] Erythrocyte distribution width (RBC) [Ratio] 16.6 % High 11.5-15.0 [facility] Comment on above: Order Comment: Speci men Type: BLOOD SPECIMENOrdering Facility: [facility] Address: [address] [place] [address] Performed By: #### 5 7021-8 ####[facility] [id number] [place] [address] [place] Hematocrit (Bld) [Volume fraction] 24.5 % Low 39.0-51.0 [facility] Comment on above: Order Comment: Speci men Type: BLOOD SPECIMENOrdering Facility: [facility] Address: [address] [place] [address] Performed By: #### 5 7021-8 ####[facility] [id number] [place] [address] [place] Hemoglobin (Bld) [Mass/Vol] 7.9 g/dL Low 13.0-17.0 [facility] Comment on above: Order Comment: Speci men Type: BLOOD SPECIMENOrdering Facility: [facility] Address: [address] [place] [address] Performed By: #### 5 7021-8 ####[facility] [id number] [address] [place] Immature granulocytes (Bld) [#/Vol] 0.06 10*3/uL Normal <0.10 [facility] Comment on above: Order Comment: Speci men Type: BLOOD SPECIMENOrdering Facility: [facility] Address: [address] [place] [address] Performed By: #### 5 7021-8 ####[facility] [id number] [place] [address] [place] Immature granulocytes/100 WBC (Bld) 1.1 % Normal [facility] Comment on above: Order Comment: Speci men Type: BLOOD SPECIMENOrdering Facility: [facility] Address: [address] [place] [address] Performed By: #### 5 7021-8 ####[facility] [id number] [address], [address] Lymphocytes (Bld) [#/Vol] 1.53 10*3/uL Normal 1.00-4.00 [facility] Comment on above: Order Comment: Speci men Type: BLOOD SPECIMENOrdering Facility: [facility] Address: [address] [place] [address] Performed By: #### 5 7021-8 ####[facility]CL[facility] [id number] [address] Lymphocytes/100 WBC (Bld) 27.5 % Normal [facility] Comment on above: Order Comment: Speci men Type: BLOOD SPECIMENOrdering Facility: [facility] Address: [address] [place] [address] Performed By: #### 5 7021-8 ####[facility] [id number] [address] [place] [facility] MCH (RBC) [Entitic mass] 28.7 pg Normal 26.0-34.0 [facility] Comment on above: Order Comment: Speci men Type: BLOOD SPECIMENOrdering Facility: [facility] Address: [address] [place] [address] Performed By: #### 5 7021-8 ####[facility]CLIA [id number] [address] MCHC (RBC) [Mass/Vol] 32.2 g/dL Normal 30.5-36.0 [facility] Comment on above: Order Comment: Speci men Type: BLOOD SPECIMENOrdering Facility: [facility] Address: [address] [place] [address] Performed By: #### 5 7021-8 ####[facility]CL[facility] [id number] [address] MCV (RBC) [Entitic vol] 89.1 fL Normal 80.0-100.0 [facility] Comment on above: Order Comment: Speci men Type: BLOOD SPECIMENOrdering Facility: [facility] Address: [address] [place] [address] Performed By: #### 5 7021-8 ####[facility]CLIA [id number] [place] [address] [place] Monocytes (Bld) [#/Vol] 0.62 10*3/uL Normal <0.87 [facility] Comment on above: Order Comment: Speci men Type: BLOOD SPECIMENOrdering Facility: [facility] Address: [address] [place] [address] Performed By: #### 5 7021-8 ####[facility] [id number] [place] [address] [place] Monocytes/100 WBC (Bld) 11.2 % Normal [facility] Comment on above: Order Comment: Speci men Type: BLOOD SPECIMENOrdering Facility: [facility] Address: [address] [place] [address] Performed By: #### 5 7021-8 ####[facility] [id number] [place] [address] [place] Neutrophils (Bld) [#/Vol] 3.24 10*3/uL Normal 1.45-7.50 [facility] Comment on above: Order Comment: Speci men Type: BLOOD SPECIMENOrdering Facility: [facility] Address: [address] [place] [address] Performed By: #### 5 7021-8 ####[facility] [id number] [place] [address] [place] Neutrophils/100 WBC (Bld) 58.2 % Normal [facility] Comment on above: Order Comment: Speci men Type: BLOOD SPECIMENOrdering Facility: [facility] Address: [address] [place] [address] Performed By: #### 5 7021-8 ####[facility] [id number] [place] [address] [place] Nucleated RBC (Bld) [#/Vol] 10*3/uL Normal <0.01 [facility] Comment on above: Order Comment: Speci men Type: BLOOD SPECIMENOrdering Facility: [facility] Address: [address] [place] [address] Performed By: #### 5 7021-8 ####[facility] [id number] [place] [address] [place] Nucleated RBC/100 WBC (Bld) [Ratio] 0.0 /100 WBC Normal [facility] Comment on above: Order Comment: Speci men Type: BLOOD SPECIMENOrdering Facility: [facility] Address: [address] [place] [address] Performed By: #### 5 7021-8 ####[facility] [id number] [place] [address] [place] Platelet mean volume (Bld) [Entitic vol] 8.8 fL Low 9.0-12.7 [facility] Comment on above: Order Comment: Speci men Type: BLOOD SPECIMENOrdering Facility: [facility] Address: [address] [place] [address] Performed By: #### 5 7021-8 ####[facility] [id number] [place] [address] [place] Platelets (Bld) [#/Vol] 261 10*3/uL Normal 150-400 [facility] Comment on above: Order Comment: Speci men Type: BLOOD SPECIMENOrdering Facility: [facility] Address: [address] [place] [address] Performed By: #### 5 7021-8 ####[facility] [id number] [place] [address] [place] RBC (Bld) [#/Vol] 2.75 10*6/uL Low 4.20-6.00 [facility] Comment on above: Order Comment: Speci men Type: BLOOD SPECIMENOrdering Facility: [facility] Address: [address] [place] [address] Performed By: #### 5 7021-8 ####[facility] [id number] [place] [address] [place] WBC (Bld) [#/Vol] 5.56 10*3/uL Normal 3.70-11.00 [facility] Comment on above: Order Comment: Speci men Type: BLOOD SPECIMENOrdering Facility: [facility] Address: [facility] [place] [id number] Performed By: #### 5 7021-8 ####[facility] [id number] [place] [address] [place] CONSULTon 03-06-2024 CONSULT [facility] CONSULT [facility] Magnesium [Mass/Vol] 1.5 mg/dL Low 1.7-2.3 [facility] Comment on above: Order Comment: Speci men Type: BLOOD SPECIMENOrdering Facility: [facility] Address: [facility] [place] [address] Performed By: #### 2 777-1, 86971-0, ####[facility] [id number] [place] [address] [facility] [place] NUTRITIONon 03-06-2024 NUTRITION [facility] Phosphate [facility] Phosphate [Mass/Vol] 5.5 mg/dL High 2.7-4.8 [facility] Comment on above: Order Comment: Speci men Type: BLOOD SPECIMENOrdering Facility: [facility] Address: [facility] [place] [address] Performed By: #### 2 777-1, 79594-2, ####[facility] [id number] [place] [address] [employer] [place] THERAPY NTon 03-06-2024 THERAPY NT [facility] BMP with eGFRon 03-05-2024 AGE 73 years Normal [facility] Comment on above: Performed By: #### 2 41582 #### [facility],[address] [place] [address]774 Anion gap [Moles/Vol] 18 mmol/L Normal 10 - 20 [facility] Comment on above: Performed By: #### 2 84705 #### [facility],[address] [place] [address]447 BMP with eGFR Normal [facility] Comment on above: Result Comment: BASI C METABOLIC PANEL Performed By: #### 2 29117 #### [facility],[address] [place] [address] Calcium [Mass/Vol] 8.2 mg/dL Low 8.5 - 10.1 [facility] Comment on above: Performed By: #### 2 38176 #### [facility],[address] [place] [address] Chloride [Moles/Vol] 101 mmol/L Normal 98 - 107 [facility] Comment on above: Performed By: #### 2 97836 #### [facility],[address] [place] [address] CO2 [Moles/Vol] 17.7 mmol/L Low 21.0 - 32.0 [facility] Comment on above: Performed By: #### 2 68669 #### [facility],[address] [place] [address] Creatinine [Mass/Vol] 5.02 mg/dL High 0.70 - 1.30 [facility] Comment on above: Performed By: #### 2 82649 #### [facility],[address] [place] [address] eGFR 11 ML/MINUTE Low 60 - 999 [facility] Comment on above: Performed By: #### 2 96127 #### [facility],[address] [place], [place] [id number] eGFR(AA) 14 ML/MINUTE Low 60 - 999 [facility] Comment on above: Result Comment: ACCO RDING TO THE NATIONAL KIDNEY DISEASE EDUCATION PROGRAM(NKDE), A NORMAL eGFR IS A VALUE GREATER THAN OR EQUAL TO 60 ML/MIN/1.73 SQ METERS. CHRONIC KIDNEY DISEASE: <60mL/MIN/1.73 SQ METERS KIDNEY FAILURE: <15mL/MIN/1.73 SQ METERS THIS TEST SHOULD ONLY BE USED FOR PATIENTS 18 YEARS OF AGE AND OLDER. Performed By: #### 2 73186 #### [facility],[address] [place] [address] Glucose [Mass/Vol] 110 mg/dL High 74 - 106 [facility] Comment on above: Performed By: #### 2 21603 #### [facility],[address] [place] [address] Potassium [Moles/Vol] 4.5 mmol/L Normal 3.5 - 5.1 [facility] Comment on above: Performed By: #### 2 60232 #### [facility],[address] [place] [address]802 Sodium [Moles/Vol] 132 mmol/L Low 136 - 145 [facility] Comment on above: Performed By: #### 2 45163 #### [facility],[address] [place] [address] Urea nitrogen [Mass/Vol] 95 mg/dL High 7 - 18 [facility] Comment on above: Performed By: #### 2 26325 #### [facility],[address] [place] [address] 21064 CBC W Auto Differential pane l (Bld)on 03-05-2024 Basophils (Bld) [#/Vol] 10*3/uL Normal <0.11 [facility] Comment on above: Order Comment: Speci men Type: BLOOD SPECIMENOrdering Facility: [facility] Address: [address] [place] [address] Performed By: #### 5 7021-8 ####[facility] [id number] [address] [place] Basophils/100 WBC (Bld) 0.3 % Normal [facility] Comment on above: Order Comment: Speci men Type: BLOOD SPECIMENOrdering Facility: [facility] Address: [address] [place] [address] Performed By: #### 5 7021-8 ####[facility] [id number] [address] [place] Differential cell count method Nom (Bld) Auto Normal [facility] Comment on above: Order Comment: Speci men Type: BLOOD SPECIMENOrdering Facility: [facility] Address: [address] [place] [address] Performed By: #### 5 7021-8 ####[facility] [id number] [place] [address] [place] Eosinophils (Bld) [#/Vol] 0.07 10*3/uL Normal <0.46 [facility] Comment on above: Order Comment: Speci men Type: BLOOD SPECIMENOrdering Facility: [facility] Address: [address] [place] [address] Performed By: #### 5 7021-8 ####[facility] [id number] [place] [address] [place] Eosinophils/100 WBC (Bld) 1.2 % Normal [facility] Comment on above: Order Comment: Speci men Type: BLOOD SPECIMENOrdering Facility: [facility] Address: [address] [place] [address] Performed By: #### 5 7021-8 ####[facility] [id number] [place] [address] [place] Erythrocyte distribution width (RBC) [Ratio] 16.5 % High 11.5-15.0 [facility] Comment on above: Order Comment: Speci men Type: BLOOD SPECIMENOrdering Facility: [facility] Address: [address] [place] [address] Performed By: #### 5 7021-8 ####[facility] [id number] [place] [address] [place] Hematocrit (Bld) [Volume fraction] 27.1 % Low 39.0-51.0 [facility] Comment on above: Order Comment: Speci men Type: BLOOD SPECIMENOrdering Facility: [facility] Address: [address] [place] [address] Performed By: #### 5 7021-8 ####[facility] [id number] [place] [address] [place] Hemoglobin (Bld) [Mass/Vol] 8.5 g/dL Low 13.0-17.0 [facility] Comment on above: Order Comment: Speci men Type: BLOOD SPECIMENOrdering Facility: [facility] Address: [address] [place] [address] Performed By: #### 5 7021-8 ####[facility] [id number] [place] [address] [place] Immature granulocytes (Bld) [#/Vol] 0.06 10*3/uL Normal <0.10 [facility] Comment on above: Order Comment: Speci men Type: BLOOD SPECIMENOrdering Facility: [facility] Address: [address] [place] [address] Performed By: #### 5 7021-8 ####[facility] [id number] [place] [address] [place] Immature granulocytes/100 WBC (Bld) 1.0 % Normal [facility] Comment on above: Order Comment: Speci men Type: BLOOD SPECIMENOrdering Facility: [facility] Address: [address] [place] [address] Performed By: #### 5 7021-8 ####[facility] [id number] [place] [address] [place] Lymphocytes (Bld) [#/Vol] 1.19 10*3/uL Normal 1.00-4.00 [facility] Comment on above: Order Comment: Speci men Type: BLOOD SPECIMENOrdering Facility: [facility] Address: [address] [place] [address] Performed By: #### 5 7021-8 ####[facility] [id number] [place] [address] [place] Lymphocytes/100 WBC (Bld) 20.0 % Normal [facility] Comment on above: Order Comment: Speci men Type: BLOOD SPECIMENOrdering Facility: [facility] Address: [address] [place] [address] Performed By: #### 5 7021-8 ####[facility] [id number] [address] STATES [facility] MCH (RBC) [Entitic mass] 28.1 pg Normal 26.0-34.0 [facility] Comment on above: Order Comment: Speci men Type: BLOOD SPECIMENOrdering Facility: [facility] Address: [address] [place] [address] Performed By: #### 5 7021-8 ####[facility] [id number] [address] STATES [facility] MCHC (RBC) [Mass/Vol] 31.4 g/dL Normal 30.5-36.0 [facility] Comment on above: Order Comment: Speci men Type: BLOOD SPECIMENOrdering Facility: [facility] Address: [address] [place] [address] Performed By: #### 5 7021-8 ####[facility] [id number] [address] STATES OF [facility] MCV (RBC) [Entitic vol] 89.4 fL Normal 80.0-100.0 [facility] Comment on above: Order Comment: Speci men Type: BLOOD SPECIMENOrdering Facility: [facility] Address: [address] [place] [address] Performed By: #### 5 7021-8 ####[facility] [id number] [address] [place] Monocytes (Bld) [#/Vol] 0.61 10*3/uL Normal <0.87 [facility] Comment on above: Order Comment: Speci men Type: BLOOD SPECIMENOrdering Facility: [facility] Address: [address] [place] [address] Performed By: #### 5 7021-8 ####[facility] [id number] [address] Monocytes/100 WBC (Bld) 10.2 % Normal [facility] Comment on above: Order Comment: Speci men Type: BLOOD SPECIMENOrdering Facility: [facility] Address: [address] [place] [address] Performed By: #### 5 7021-8 ####[facility] [id number] [place] [address] [place] Neutrophils (Bld) [#/Vol] 4.01 10*3/uL Normal 1.45-7.50 [facility] Comment on above: Order Comment: Speci men Type: BLOOD SPECIMENOrdering Facility: [facility] Address: [address] [place] [address] Performed By: #### 5 7021-8 ####[facility] [id number] [place] [address] [place] Neutrophils/100 WBC (Bld) 67.3 % Normal [facility] Comment on above: Order Comment: Speci men Type: BLOOD SPECIMENOrdering Facility: [facility] Address: [address] [place] [address] Performed By: #### 5 7021-8 ####[facility] [id number] [place] [address] [place] Nucleated RBC (Bld) [#/Vol] 10*3/uL Normal <0.01 [facility] Comment on above: Order Comment: Speci men Type: BLOOD SPECIMENOrdering Facility: [facility] Address: [address] [place] [address] Performed By: #### 5 7021-8 ####[facility] [id number] [place] [address] [place] Nucleated RBC/100 WBC (Bld) [Ratio] 0.0 /100 WBC Normal [facility] Comment on above: Order Comment: Speci men Type: BLOOD SPECIMENOrdering Facility: [facility] Address: [address] [place] [address] Performed By: #### 5 7021-8 ####[facility] [id number] [place] [address] [place] Platelet mean volume (Bld) [Entitic vol] 8.4 fL Low 9.0-12.7 [facility] Comment on above: Order Comment: Speci men Type: BLOOD SPECIMENOrdering Facility: [facility] Address: [address] [place] [address] Performed By: #### 5 7021-8 ####[facility] [id number] [place] [address] [facility] Platelets (Bld) [#/Vol] 298 10*3/uL Normal 150-400 [facility] Comment on above: Order Comment: Speci men Type: BLOOD SPECIMENOrdering Facility: [facility] Address: [address] [place] [address] Performed By: #### 5 7021-8 ####[facility] [id number] [place] [address] [place] RBC (Bld) [#/Vol] 3.03 10*6/uL Low 4.20-6.00 [facility] Comment on above: Order Comment: Speci men Type: BLOOD SPECIMENOrdering Facility: [facility] Address: [address] [place] [address] Performed By: #### 5 7021-8 ####[facility] [id number] [address] WBC (Bld) [#/Vol] 5.96 10*3/uL Normal 3.70-11.00 [facility] Comment on above: Order Comment: Speci men Type: BLOOD SPECIMENOrdering Facility: [facility] Address: [address] [place] [address] Performed By: #### 5 7021-8 ####[facility] [id number] [place] [address] [facility] Comprehensive metabolic 2000 panelon 03-05-2024 Albumin [Mass/Vol] 2.7 g/dL Low 3.9-4.9 [facility] Comment on above: Order Comment: Speci men Type: BLOOD SPECIMENOrdering Facility: [facility] Address: [address] [place] [address] Performed By: #### 2 4323-8 ####[facility] [id number] [place] [address] [place] ALP [Catalytic activity/Vol] 127 U/L High 38-113 [facility] Comment on above: Order Comment: Speci men Type: BLOOD SPECIMENOrdering Facility: [facility] Address: [address] [place] [address] Performed By: #### 2 4323-8 ####[facility] [id number] [place] [address] [place] ALT [Catalytic activity/Vol] 8 U/L Low 10-54 [facility] Comment on above: Order Comment: Speci men Type: BLOOD SPECIMENOrdering Facility: [facility] Address: [address] [place] [address] Performed By: #### 2 4323-8 ####[facility] [id number] [place] [address] [place] Anion gap [Moles/Vol] 16 mmol/L High 8-15 [facility] Comment on above: Order Comment: Speci men Type: BLOOD SPECIMENOrdering Facility: [facility] Address: [address] [place] [address] Performed By: #### 2 4323-8 ####[facility] [id number] [address] [place] AST [Catalytic activity/Vol] 20 U/L Normal 14-40 [facility] Comment on above: Order Comment: Speci men Type: BLOOD SPECIMENOrdering Facility: [facility] Address: [address] [place] [address] Performed By: #### 2 4323-8 ####[facility] [id number] [address] [place] Bilirubin [Mass/Vol] mg/dL Low 0.2-1.3 [facility] Comment on above: Order Comment: Speci men Type: BLOOD SPECIMENOrdering Facility: [facility] Address: [address] [place] [address] Performed By: #### 2 4323-8 ####[facility] [id number] [place] [address] [place] Calcium [Mass/Vol] 8.9 mg/dL Normal 8.5-10.2 [facility] Comment on above: Order Comment: Speci men Type: BLOOD SPECIMENOrdering Facility: [facility] Address: [address] [place] [address] Performed By: #### 2 4323-8 ####[facility] [id number] [place] [address] [place] Chloride [Moles/Vol] 103 mmol/L Normal 98-107 [facility] Comment on above: Order Comment: Speci men Type: BLOOD SPECIMENOrdering Facility: [facility] Address: [address] [place] [address] Performed By: #### 2 4323-8 ####[facility] [id number] [place] [address] [place] CO2 [Moles/Vol] 16 mmol/L Low 22-30 [facility] Comment on above: Order Comment: Speci men Type: BLOOD SPECIMENOrdering Facility: [facility] Address: [address] [place] [address] Performed By: #### 2 4323-8 ####[facility] [id number] [place] [address] [place] Creatinine [Mass/Vol] 4.85 mg/dL High 0.73-1.22 [facility] Comment on above: Order Comment: Speci men Type: BLOOD SPECIMENOrdering Facility: [facility] Address: [address] [place] [address] Performed By: #### 2 4323-8 ####[facility] [id number] [place] [address] [place] Creatinine and Glomerular filtration rate.predicted panel (S/P/Bld) 12 mL/min/1.73m??? Low >=60 [facility] Comment on above: Order Comment: Speci men Type: BLOOD SPECIMENOrdering Facility: [facility] Address: [address] [place] [address] Result Comment: More mated Glomerular Filtration Rate (eGFR) is calculated using the 2020 CKD-EPI creatinine equation. This equation utilizes serum creatinine, sex, and age as parameters. The creatinine assay has traceable calibration to isotope dilution-mass spectrometry. Refer to KDIGO guidelines for clinical interpretation. In patients with unstable renal function, e.g. those with acute kidney injury, the eGFR may not accurately reflect actual GFR. Performed By: #### 2 4323-8 ####[facility] [id number] [place] [address] [place] Glucose [Mass/Vol] 102 mg/dL High 74-99 [facility] Comment on above: Order Comment: Elizabeth riggs Type: BLOOD SPECIMENOrdering Facility: [facility] Address: [address] [place] [address] Result Comment: The [place] Diabetes Association (ADA) provides guidance for cutoff values for fasting glucose and random glucose. The ADA defines fasting as no caloric intake for at least 8 hours. Fasting plasma glucose results between 100 to 125 mg/dL indicate increased risk for diabetes (prediabetes).Fasting plasma glucose results greater than or equal to 126 mg/dL meet the criteria for diagnosis of diabetes. In the absence of unequivocal hyperglycemia, results should be confirmed by repeat testing. In a patient with classic symptoms of hyperglycemia or hyperglycemic crisis, random plasma glucose results greater than or equal to 200 mg/dL meet the criteria for diagnosis of diabetes.Reference: Standards of Medical Care in Diabetes 2016, [place] [employer]. Diabetes Care. 2016.39(Suppl 1). Performed By: #### 2 4323-8 ####[facility] [id number] [place] [address] [place] Potassium [Moles/Vol] 5.2 mmol/L High 3.7-5.1 [facility] Comment on above: Order Comment: Elizabeth riggs Type: BLOOD SPECIMENOrdering Facility: [facility] Address: [address] [place] [id number] Performed By: #### 2 4323-8 ####[facility] [id number] [place] [address] [place] Protein [Mass/Vol] 6.3 g/dL Normal 6.3-8.0 [facility] Comment on above: Order Comment: Speci men Type: BLOOD SPECIMENOrdering Facility: [facility] Address: [address] [place] [address] Performed By: #### 2 4323-8 ####[facility] [id number] [place] [address] [place] Sodium [Moles/Vol] 135 mmol/L Low 136-144 [facility] Comment on above: Order Comment: Speci men Type: BLOOD SPECIMENOrdering Facility: [facility] Address: [address] [place] [address] Performed By: #### 2 4323-8 ####[facility] [id number] [place] [address] [place] Urea nitrogen [Mass/Vol] 93 mg/dL High 9-24 [facility] Comment on above: Order Comment: Speci men Type: BLOOD SPECIMENOrdering Facility: [facility] Address: [address] [place] [address] Performed By: #### 2 4323-8 ####[facility] [id number] [place] [address] [place] ECG COMPLETEon 03-05-2024 ECG COMPLETE [facility] ED NOTEon 03-05-2024 ED NOTE HNO ID: [id number] Author: GWENDOLYN CROCKETT RN Service: Nursing Author Type: Registered Nurse Type: ED Notes Filed: 03/05/2024 22:18 Note Text: REPORT CALLED TO CARMEN GONZALEZ [facility] ED NOTE HNO ID: [id number] Author: ROCKY CLARKE HUC Service: ? Author Type: ? Type: ED Notes Filed: 03/05/2024 21:39 Note Text: PAGED HOSPITALIST TO DR [facility]. [facility] ED NOTE HNO ID: [id number] Author: ROCKY CLARKE HUC Service: ? Author Type: ? Type: ED Notes Filed: 03/05/2024 20:56 Note Text: ENTERED PTS ROOM. PT USED URINAL. COLLECTED AND SENT TO LAB. [facility] ED NOTE [facility] ED NOTE [facility] ED NOTE [facility] ED PROV NOTEon 03-05-2024 ED PROV NOTE Normal [facility] ED Triage Noteon 03-05-2024 ED Triage Note Normal [facility] HISTORY PHYSICALon HISTORY PHYSICAL Normal [facility] Urinalysis complete panel (U )on 03-05-2024 Bacteria LM.HPF (Urine sed) [#/Area] Few Abnormal None Seen [facility] Comment on above: Order Comment: Speci men Type: URINE SPECIMENOrdering Facility: [facility] Address: [address] [place] [address] Performed By: #### 2 4356-8 ####[facility] [id number] [place] [address] [place] Bilirubin Ql (U) Negative Normal Negative [facility] Comment on above: Order Comment: Speci men Type: URINE SPECIMENOrdering Facility: [facility] Address: [address] [place] [address] Performed By: #### 2 4356-8 ####[facility] LABCLIA [id number] [place] [address] [place] Clarity (Unsp spec) Clear Normal Clear [facility] Comment on above: Order Comment: Speci men Type: URINE SPECIMENOrdering Facility: [facility] Address: [address] [place] [address] Performed By: #### 2 4356-8 ####[facility] LABCLIA [id number] [place] [address] [place] Color (U) Yellow Normal Yellow [facility] Comment on above: Order Comment: Speci men Type: URINE SPECIMENOrdering Facility: [facility] Address: [address] [place] [address] Performed By: #### 2 4356-8 ####[facility] LABCLIA [id number] [place] [address] [place] Glucose Test strip (U) [Mass/Vol] Negative Normal Negative [facility] Comment on above: Order Comment: Speci men Type: URINE SPECIMENOrdering Facility: [facility] Address: [address] [place] [address] Performed By: #### 2 4356-8 ####[facility] LABCLIA [id number] [place] [address] [place] Hemoglobin Ql (U) Negative Normal Negative [facility] Comment on above: Order Comment: Speci men Type: URINE SPECIMENOrdering Facility: [facility] Address: [address] [place] [address] Performed By: #### 2 4356-8 ####[facility] LABCLIA [id number] [place] [address] [place] Ketones Ql (U) Negative Normal Negative [facility] Comment on above: Order Comment: Speci men Type: URINE SPECIMENOrdering Facility: [facility] Address: [address] [place] [address] Performed By: #### 2 4356-8 ####[facility] LABIA [id number] [place] Leukocyte esterase Test strip Ql (U) Negative Normal Negative [facility] Comment on above: Order Comment: Speci men Type: URINE SPECIMENOrdering Facility: [facility] Address: [address] [place] [address] Performed By: #### 2 4356-8 ####[facility] LABIA [id number] [address] [place] Nitrite Ql (U) Negative Normal Negative [facility] Comment on above: Order Comment: Speci men Type: URINE SPECIMENOrdering Facility: [facility] Address: [address] [place] [address] Performed By: #### 2 4356-8 ####[facility] LABCLIA [id number] [address] [place] pH (U) 5.5 [pH] Normal 5.0-8.0 [facility] Comment on above: Order Comment: Speci men Type: URINE SPECIMENOrdering Facility: [facility] Address: [address] [place] [address] Performed By: #### 2 4356-8 ####[facility] LABCLIA [id number] [address] STATES [facility] Protein (U) [Mass/Vol] 1+ Abnormal Negative [facility] Comment on above: Order Comment: Speci men Type: URINE SPECIMENOrdering Facility: [facility] Address: [address] [place] [address] Performed By: #### 2 4356-8 ####[facility] LABIA [id number] [place] [address] [place] RBC LM.HPF (Urine sed) [#/Area] 0-3 /HPF Normal 0-3 /HPF [facility] Comment on above: Order Comment: Speci men Type: URINE SPECIMENOrdering Facility: [facility] Address: [address] [place] [address] Performed By: #### 2 4356-8 ####[facility] [id number] [address] [place] Specific gravity (U) [Rel density] 1.020 Normal 1.005-1.030 [facility] Comment on above: Order Comment: Speci men Type: URINE SPECIMENOrdering Facility: [facility] Address: [address] [place] [address] Performed By: #### 2 4356-8 ####[facility] LABIA [id number] [address] STATES [facility] Urobilinogen Ql (U) 0.2 EU/dL Normal 0.2-1.0 EU/dL [facility] Comment on above: Order Comment: Speci men Type: URINE SPECIMENOrdering Facility: [facility] Address: [address] [place] [address] Performed By: #### 2 4356-8 ####[facility] LABIA [id number] [place] [address] [place] WBC LM.HPF (Urine sed) [#/Area] 0-5 /HPF Normal 0-5 /HPF [facility] Comment on above: Order Comment: Speci men Type: URINE SPECIMENOrdering Facility: [facility] Address: [address] [place] [address] Performed By: #### 2 4356-8 ####[facility] LABCLIA [id number] [place] [address] [place] [facility] XR CHEST 1V FRONTAL PORTon 0 03-05-2024 XR CHEST 1V FRONTAL PORT Normal [facility] BMP with eGFRon 03-03-2024 AGE 73 years Normal [facility] Comment on above: Performed By: #### 2 87746 #### [facility],[address] [place] [address] 41693 Anion gap [Moles/Vol] 19 mmol/L Normal 10 - 20 [facility] Comment on above: Performed By: #### 2 28382 #### [facility],[address] [place] [address] 76639 BMP with eGFR Normal [facility] Comment on above: Result Comment: BASI C METABOLIC PANEL Performed By: #### 2 05111 #### [facility],[address] [place] [address] 25630 Calcium [Mass/Vol] 7.9 mg/dL Low 8.5 - 10.1 [facility] Comment on above: Performed By: #### 2 32028 #### [facility],[address] [place] [address] 72141 Chloride [Moles/Vol] 104 mmol/L Normal 98 - 107 [facility] Comment on above: Performed By: #### 2 12397 #### [facility],[address] [place] [address] 91652 CO2 [Moles/Vol] 15.9 mmol/L Low 21.0 - 32.0 [facility] Comment on above: Performed By: #### 2 40791 #### [facility],[address] [place] [address] 91839 Creatinine [Mass/Vol] 5.03 mg/dL High 0.70 - 1.30 [facility] Comment on above: Result Comment: POTA SSIUM, CO2, CREATININE REPEATED Performed By: #### 2 93997 #### [facility],[address] [place] [address] 29839 eGFR 11 ML/MINUTE Low 60 - 999 [facility] Comment on above: Performed By: #### 2 22796 #### [facility],[address] [place] [address] 90363 eGFR(AA) 14 ML/MINUTE Low 60 - 999 [facility] Comment on above: Result Comment: ACCO RDING TO THE NATIONAL KIDNEY DISEASE EDUCATION PROGRAM(NKDE), A NORMAL eGFR IS A VALUE GREATER THAN OR EQUAL TO 60 ML/MIN/1.73 SQ METERS. CHRONIC KIDNEY DISEASE: <60mL/MIN/1.73 SQ METERS KIDNEY FAILURE: <15mL/MIN/1.73 SQ METERS THIS TEST SHOULD ONLY BE USED FOR PATIENTS 18 YEARS OF AGE AND OLDER. Performed By: #### 2 54762 #### [facility],[address] [place] [address] 11637 Glucose [Mass/Vol] 121 mg/dL High 74 - 106 [facility] Comment on above: Performed By: #### 2 03794 #### [facility],[address] [place] [address] 62029 Potassium [Moles/Vol] 4.9 mmol/L Normal 3.5 - 5.1 [facility] Comment on above: Performed By: #### 2 21984 #### [facility],[address] [place] [address] 20781 Sodium [Moles/Vol] 134 mmol/L Low 136 - 145 [facility] Comment on above: Performed By: #### 2 53486 #### [facility],[address] [place] [address] 56794 Urea nitrogen [Mass/Vol] 98 mg/dL High 7 - 18 [facility] Comment on above: Performed By: #### 2 51917 #### [facility],[address] [place] [address] 77383 CBC + DIFFon 03-03-2024 Baso # 0.03 x10EE3/UL Normal 0.00 - 0.10 [facility] Comment on above: Performed By: #### 2 18780 #### [facility],[address] [place], [place] [address] Basophils/100 WBC (Bld) 0.5 % Normal 0.0 - 2.0 [facility] Comment on above: Performed By: #### 2 21216 #### [facility],[address] [place] [address] CBC + DIFF Normal [facility] Comment on above: Result Comment: CBC- COMPLETE BLOOD COUNT Performed By: #### 2 67928 #### [facility],[address] [place] [address] EO # 0.05 x10EE3/UL Normal 0.00 - 0.50 [facility] Comment on above: Performed By: #### 2 16958 #### [facility],[address] [place] [address] Eosinophils/100 WBC (Bld) 0.7 % Normal 0.0 - 7.0 [facility] Comment on above: Performed By: #### 2 02308 #### [facility],[address] [place] [address] Erythrocyte distribution width (RBC) [Ratio] 16.7 % High 12.0 - 15.6 [facility] Comment on above: Performed By: #### 2 68898 #### [facility],[address] [place] [address] Hematocrit (Bld) [Volume fraction] 25.2 % Low 40.0 - 52.0 [facility] Comment on above: Performed By: #### 2 61014 #### [facility],[address] [place] [address] Hemoglobin (Bld) [Mass/Vol] 8.2 g/dL Low 13.0 - 17.5 [facility] Comment on above: Performed By: #### 2 24959 #### [facility],[address],[place] [address] Lymph # 1.60 x10EE3/UL Normal 0.80 - 2.80 [facility] Comment on above: Performed By: #### 2 37005 #### [facility],[address] [place] [address] Lymphocytes/100 WBC (Bld) 23.9 % Normal 20.0 - 45.0 [facility] Comment on above: Performed By: #### 2 03424 #### [facility],[address] [place] [address] MANUAL DIFF N/A Normal [facility] Comment on above: Performed By: #### 2 88327 #### [facility],[address] [place] [address] MCH (RBC) [Entitic mass] 28 pg Normal 27 - 33 [facility] Comment on above: Performed By: #### 2 96047 #### [place] [address] MCHC 33 X10 3 Normal 32 - 36 [facility] Comment on above: Performed By: #### 2 69887 #### [place] [address] MCV (RBC) [Entitic vol] 86 fL Normal 81 - 98 [facility] Comment on above: Performed By: #### 2 29436 #### [facility],[address] [place] [address] Loving # 0.64 x10EE3/UL Normal 0.20 - 1.00 [facility] Comment on above: Performed By: #### 2 82700 #### [place] [address] MONOS % 9.6 % Normal 0.0 - 10.0 [facility] Comment on above: Performed By: #### 2 06499 #### [facility],[address] [place], [place] [address] Morphology Kyle (Bld) [Interp] SEE BELOW Normal [facility] Comment on above: Performed By: #### 2 12182 #### [facility],[address] [place] [address] 14005 Neut # 4.36 x10EE3/UL Normal 1.50 - 7.10 [facility] Comment on above: Performed By: #### 2 08793 #### [facility],[address] [place] [address] 07956 Neutrophils/100 WBC (Bld) 65.2 % Normal 46.0 - 76.0 [facility] Comment on above: Performed By: #### 2 81890 #### [place] [address] PLATELET 307 x10EE3/UL Normal 150 - 450 [facility] Comment on above: Performed By: #### 2 36080 #### [place] [address] Platelet mean volume (Bld) [Entitic vol] 7.3 fL Normal 6.4 - 10.5 [facility] Comment on above: Result Comment: AUTO MATED DIFFERENTIAL Performed By: #### 2 05338 #### [place] [address] PLT EST NORMAL Normal [facility] Comment on above: Result Comment: OVAL OCYTES AND CREANATED RBC'S PRESENT. Performed By: #### 2 85389 #### [place] [id number] RBC 2.92 x 10EE6/UL Low 4.50 - 6.00 [facility] Comment on above: Performed By: #### 2 12529 #### [address] [address] WBC 6.7 x 10EE3/UL Normal 4.5 - 10.8 [facility] Comment on above: Performed By: #### 2 17351 #### [place] [address] CNPNon 02-29-2024 [facility] CNOVon 02-28-2024 [facility] CNPNon 02-17-2024 [facility] CNOVon 01-31-2024 [facility] BMP with eGFRon 01-24-2024 AGE 73 years Normal [facility] Comment on above: Performed By: #### 2 53505 #### [facility],[address] [place] [address] 59419 Anion gap [Moles/Vol] 13 mmol/L Normal 10 - 20 [facility] Comment on above: Performed By: #### 2 62518 #### [facility],[address] [place] [address] 82761 BMP with eGFR Normal [facility] Comment on above: Result Comment: BASI C METABOLIC PANEL Performed By: #### 2 55341 #### [facility],[address] [place] [address] 61957 Calcium [Mass/Vol] 8.0 mg/dL Low 8.5 - 10.1 [facility] Comment on above: Performed By: #### 2 39661 #### [facility],[address] [place] [address] 09980 Chloride [Moles/Vol] 106 mmol/L Normal 98 - 107 [facility] Comment on above: Performed By: #### 2 91812 #### [facility],[address] [place] [address] 29550 CO2 [Moles/Vol] 23.4 mmol/L Normal 21.0 - 32.0 [facility] Comment on above: Performed By: #### 2 02054 #### [facility],[address] [place] [address] 84790 Creatinine [Mass/Vol] 2.69 mg/dL High 0.70 - 1.30 [facility] Comment on above: Performed By: #### 2 58122 #### [facility],[address] [place] [address] 42413 eGFR 24 ML/MINUTE Low 60 - 999 [facility] Comment on above: Performed By: #### 2 77025 #### [facility],[address] [place] [address] 17279 eGFR(AA) 28 ML/MINUTE Low 60 - 999 [facility] Comment on above: Result Comment: ACCO RDING TO THE NATIONAL KIDNEY DISEASE EDUCATION PROGRAM(NKDE), A NORMAL eGFR IS A VALUE GREATER THAN OR EQUAL TO 60 ML/MIN/1.73 SQ METERS. CHRONIC KIDNEY DISEASE: <60mL/MIN/1.73 SQ METERS KIDNEY FAILURE: <15mL/MIN/1.73 SQ METERS THIS TEST SHOULD ONLY BE USED FOR PATIENTS 18 YEARS OF AGE AND OLDER. Performed By: #### 2 94140 #### [facility],[address] [place] [address] 37805 Glucose [Mass/Vol] 95 mg/dL Normal 74 - 106 [facility] Comment on above: Performed By: #### 2 27356 #### [facility],[address] [place] [address] 22917 Potassium [Moles/Vol] 3.6 mmol/L Normal 3.5 - 5.1 [facility] Comment on above: Performed By: #### 2 43083 #### [facility],[address] [place] [address] 74371 Sodium [Moles/Vol] 139 mmol/L Normal 136 - 145 [facility] Comment on above: Performed By: #### 2 73697 #### [facility],[address] [place] [address] 89545 Urea nitrogen [Mass/Vol] 79 mg/dL High 7 - 18 [facility] Comment on above: Performed By: #### 2 87488 #### [facility],[address] [place] [address] 30814 CNOVon 01-17-2024 [facility] CNPNon 01-04-2024 [facility] 01-03-2024 [facility] Basic metabolic 2000 panelon 11-03-2023 Anion gap [Moles/Vol] 10 mmol/L Normal 5-16 [facility] Comment on above: Order Comment: Speci men Type: BLOOD SPECIMENOrdering Facility: [facility] Address: [address] [place] [address] Performed By: #### 2 4321-2 ####[facility] LABORATORYCLIA [id number] [place] [id number] [place] Calcium [Mass/Vol] 7.6 mg/dL Low 8.5-10.5 [facility] Comment on above: Order Comment: Speci men Type: BLOOD SPECIMENOrdering Facility: [facility] Address: [address] [place] [address] Performed By: #### 2 4321-2 ####[facility] LABORATORYCLIA [id number] [place] [address] [place] Chloride [Moles/Vol] 110 mmol/L High 98-107 [facility] Comment on above: Order Comment: Speci men Type: BLOOD SPECIMENOrdering Facility: [facility] Address: [address] [place] [address] Performed By: #### 2 4321-2 ####[facility] LABORATORYCLIA [id number] [place] [address] [place] CO2 [Moles/Vol] 21 mmol/L Normal 21-32 [facility] Comment on above: Order Comment: Speci men Type: BLOOD SPECIMENOrdering Facility: [facility] Address: [address] [place] [address] Performed By: #### 2 4321-2 ####[facility] LABORATORYCLIA [id number] [place] [address] [place] Creatinine [Mass/Vol] 3.45 mg/dL High 0.50-1.40 [facility] Comment on above: Order Comment: Speci men Type: BLOOD SPECIMENOrdering Facility: [facility] Address: [address] [place] [address] Result Comment: Raquel ents receiving either N-Acetylcysteine (NAC) or Metamizole prior to venipuncture, may have falsely depressed results. Performed By: #### 2 4321-2 ####[facility] LABORATORYCLIA [id number] [place] [address] [place] Creatinine and Glomerular filtration rate.predicted panel (S/P/Bld) 18 mL/min/1.73m??? Low >=60 [facility] Comment on above: Order Comment: Specalcides riggs Type: BLOOD SPECIMENOrdering Facility: [facility] Address: [address] [place] [address] Result Comment: More mated Glomerular Filtration Rate (eGFR) is calculated using the 2020 CKD-EPI creatinine equation. This equation utilizes serum creatinine, sex, and age as parameters. The creatinine assay has traceable calibration to isotope dilution-mass spectrometry. Refer to KDIGO guidelines for clinical interpretation. In patients with unstable renal function, e.g. those with acute kidney injury, the eGFR may not accurately reflect actual GFR. Performed By: #### 2 4321-2 ####[facility] LABORATORYCLIA [id number] [place] [address] [place] Glucose [Mass/Vol] 129 mg/dL High 70-100 [facility] Comment on above: Order Comment: Elizabeth riggs Type: BLOOD SPECIMENOrdering Facility: [facility] Address: [address] [place] [address] Result Comment: The [place] [employer] (ADA) provides guidance for cutoff values for fasting glucose and random glucose. The ADA defines fasting as no caloric intake for at least 8 hours. Fasting plasma glucose results between 100 to 125 mg/dL indicate increased risk for diabetes (prediabetes).Fasting plasma glucose results greater than or equal to 126 mg/dL meet the criteria for diagnosis of diabetes. In the absence of unequivocal hyperglycemia, results should be confirmed by repeat testing. In a patient with classic symptoms of hyperglycemia or hyperglycemic crisis, random plasma glucose results greater than or equal to 200 mg/dL meet the criteria for diagnosis of diabetes.Reference: Standards of Medical Care in Diabetes 2016, [place] [employer]. Diabetes Care. 2016.39(Suppl 1).Results may be falsely elevated after the administration of Sulfapyridine.Results may be falsely depressed after the administration of Sulfasalazine. Performed By: #### 2 4321-2 ####[facility] LABORATORYCLIA [id number] [place] [id number] [place] Potassium [Moles/Vol] 3.7 mmol/L Normal 3.5-5.1 [facility] Comment on above: Order Comment: Speci men Type: BLOOD SPECIMENOrdering Facility: [facility] Address: [address] [place] [address] Performed By: #### 2 4321-2 ####[facility] LABORATORYCLIA [id number] [place] [id number] [place] Sodium [Moles/Vol] 141 mmol/L Normal 136-145 [facility] Comment on above: Order Comment: Speci men Type: BLOOD SPECIMENOrdering Facility: [facility] Address: [address] [place] [address] Performed By: #### 2 4321-2 ####[facility] LABORATORYCLIA [id number] [place] [id number] [place] Urea nitrogen [Mass/Vol] 99 mg/dL High 7- [facility] Comment on above: Order Comment: Speci men Type: BLOOD SPECIMENOrdering Facility: [facility] Address: [address] [place] [address] Performed By: #### 2 4321-2 ####[facility] LABORATORYCLIA [id number] [place] [id number] [place] CASE MANAGEMon 11-03-2023 CASE MANAGEM [facility] CNDSon 11-03-2023 CNDS [facility] Basic metabolic 2000 panelon 11-02-2023 Anion gap [Moles/Vol] 8 mmol/L Normal 5-16 [facility] Comment on above: Order Comment: Speci men Type: BLOOD SPECIMENOrdering Facility: [facility] Address: [address] [place] [address] Performed By: #### 2 4321-2, 02523-0, 2777-1 ####[facility] LABORATORYCLIA [id number] [place] [id number] [place] Calcium [Mass/Vol] 7.8 mg/dL Low 8.5-10.5 [facility] Comment on above: Order Comment: Speci men Type: BLOOD SPECIMENOrdering Facility: [facility] Address: [address] [place] [address] Performed By: #### 2 4321-2, 44583-1, 2776- ####[facility] LABORATORYCLIA [id number] [place] [id number] [place] Chloride [Moles/Vol] 111 mmol/L High 98-107 [facility] Comment on above: Order Comment: Speci men Type: BLOOD SPECIMENOrdering Facility: [facility] Address: [address] [place] [address] Performed By: #### 2 4321-2, 60703-0, 2776-09 ####[facility] LABORATORYCLIA [id number] [place] [address] [place] CO2 [Moles/Vol] 23 mmol/L Normal 21-32 [facility] Comment on above: Order Comment: Speci men Type: BLOOD SPECIMENOrdering Facility: [facility] Address: [address] [place] [address] Performed By: #### 2 4321-2, 39076-4, 2776-09 ####[facility] LABORATORYCLIA [id number] [place] [id number] [place] Creatinine [Mass/Vol] 3.80 mg/dL High 0.50-1.40 [facility] Comment on above: Order Comment: Speci men Type: BLOOD SPECIMENOrdering Facility: [facility] Address: [address] [place] [address] Result Comment: Raquel ents receiving either N-Acetylcysteine (NAC) or Metamizole prior to venipuncture, may have falsely depressed results. Performed By: #### 2 4321-2, 57201-6, 2776-09 ####[facility] LABORATORYCLIA [id number] [place] [id number] [place] Creatinine and Glomerular filtration rate.predicted panel (S/P/Bld) 16 mL/min/1.73m??? Low >=60 [facility] Comment on above: Order Comment: Elizabeth riggs Type: BLOOD SPECIMENOrdering Facility: [facility] Address: [address] [place] [address] Result Comment: More mated Glomerular Filtration Rate (eGFR) is calculated using the 2020 CKD-EPI creatinine equation. This equation utilizes serum creatinine, sex, and age as parameters. The creatinine assay has traceable calibration to isotope dilution-mass spectrometry. Refer to KDIGO guidelines for clinical interpretation. In patients with unstable renal function, e.g. those with acute kidney injury, the eGFR may not accurately reflect actual GFR. Performed By: #### 2 4321-2, 19728-3, 2777-1 ####[facility] LABORATORYCLIA [id number] [place] [address] [place] Glucose [Mass/Vol] 107 mg/dL High 70-100 [facility] Comment on above: Order Comment: Elizabeth riggs Type: BLOOD SPECIMENOrdering Facility: [facility] Address: [address] [place] [address] Result Comment: The [place] Diabetes Association (ADA) provides guidance for cutoff values for fasting glucose and random glucose. The ADA defines fasting as no caloric intake for at least 8 hours. Fasting plasma glucose results between 100 to 125 mg/dL indicate increased risk for diabetes (prediabetes).Fasting plasma glucose results greater than or equal to 126 mg/dL meet the criteria for diagnosis of diabetes. In the absence of unequivocal hyperglycemia, results should be confirmed by repeat testing. In a patient with classic symptoms of hyperglycemia or hyperglycemic crisis, random plasma glucose results greater than or equal to 200 mg/dL meet the criteria for diagnosis of diabetes.Reference: Standards of Medical Care in Diabetes 2016, [place] [employer]. Diabetes Care. 2016.39(Suppl 1).Results may be falsely elevated after the administration of Sulfapyridine.Results may be falsely depressed after the administration of Sulfasalazine. Performed By: #### 2 4321-2, 71527-1, 2777-1 ####[facility] LABORATORYCLIA [id number] [place] [id number] [place] Potassium [Moles/Vol] 3.8 mmol/L Normal 3.5-5.1 [facility] Comment on above: Order Comment: Speci men Type: BLOOD SPECIMENOrdering Facility: [facility] Address: [facility] [place] [address] Performed By: #### 2 4321-2, 64351-9, 2777-1 ####[facility] LABORATORYCLIA [id number] [place] [id number] [place] Sodium [Moles/Vol] 142 mmol/L Normal 136-145 [facility] Comment on above: Order Comment: Speci men Type: BLOOD SPECIMENOrdering Facility: [facility] Address: [address] [place] [address] Performed By: #### 2 4321-2, 35944-0, 2777- ####[facility] LABORATORYCLIA [id number] [address] [place] Urea nitrogen [Mass/Vol] 110 mg/dL High 7-26 [facility] Comment on above: Order Comment: Speci men Type: BLOOD SPECIMENOrdering Facility: [facility] Address: [address] [place] [address] [place] [address] Performed By: #### 2 4321-2, 11783-0, 2777- ####[facility] LABORATORYCLIA [id number] [place] [id number] [employer] [place] CASE MANAGEMon 11-02-2023 CASE MANAGEM Normal [facility] CBC panel Auto (Bld)on 11-02 Erythrocyte distribution width (RBC) [Ratio] 18.7 % High 11.5-15.0 [facility] Comment on above: Order Comment: Speci men Type: BLOOD SPECIMENOrdering Facility: [facility] Address: [address] [place] [address] Performed By: #### 5 8410-2 ####[facility] LABORATORYCLIA [id number] [place] [id number] [place] Hematocrit (Bld) [Volume fraction] 22.9 % Low 39.0-51.0 [facility] Comment on above: Order Comment: Speci men Type: BLOOD SPECIMENOrdering Facility: [facility] Address: [address] [place] [address] Performed By: #### 5 8410-2 ####[facility] LABORATORYCLIA [id number] [address] Hemoglobin (Bld) [Mass/Vol] 7.6 g/dL Low 13.0-17.0 [facility] Comment on above: Order Comment: Speci men Type: BLOOD SPECIMENOrdering Facility: [facility] Address: [address] [place] [address] Performed By: #### 5 8410-2 ####[facility] LABORATORYCLIA [id number] [address] MCH (RBC) [Entitic mass] 31.9 pg Normal 26.0-34.0 [facility] Comment on above: Order Comment: Speci men Type: BLOOD SPECIMENOrdering Facility: [facility] Address: [address] [place] [address] Performed By: #### 5 8410-2 ####[facility] LABORATORYCLIA [id number] [address] MCHC (RBC) [Mass/Vol] 33.2 g/dL Normal 30.5-36.0 [facility] Comment on above: Order Comment: Speci men Type: BLOOD SPECIMENOrdering Facility: [facility] Address: [address] [place] [address] Performed By: #### 5 8410-2 ####[facility] LABORATORYCLIA [id number] [address] [place] MCV (RBC) [Entitic vol] 96.2 fL Normal 80.0-100.0 [facility] Comment on above: Order Comment: Speci men Type: BLOOD SPECIMENOrdering Facility: [facility] Address: [address] [place] [address] Performed By: #### 5 8410-2 ####[facility] LABORATORYCLIA [id number] [place] [address] [place] Nucleated RBC (Bld) [#/Vol] 0.02 10*3/uL High <0.01 [facility] Comment on above: Order Comment: Speci men Type: BLOOD SPECIMENOrdering Facility: [facility] Address: [address] [place] [address] Performed By: #### 5 8410-2 ####[facility] LABORATORYCLIA [id number] [place] [address] [place] Platelet mean volume (Bld) [Entitic vol] 10.3 fL Normal 9.0-12.7 [facility] Comment on above: Order Comment: Speci men Type: BLOOD SPECIMENOrdering Facility: [facility] Address: [address] [place] [address] Performed By: #### 5 8410-2 ####[facility] LABORATORYCLIA [id number] [place] [address] [place] Platelets (Bld) [#/Vol] 118 10*3/uL Low 150-400 [facility] Comment on above: Order Comment: Speci men Type: BLOOD SPECIMENOrdering Facility: [facility] Address: [address] [place] [address] Performed By: #### 5 8410-2 ####[facility] LABORATORYCLIA [id number] [place] [address] [place] RBC (Bld) [#/Vol] 2.38 10*6/uL Low 4.20-6.00 [facility] Comment on above: Order Comment: Speci men Type: BLOOD SPECIMENOrdering Facility: [facility] Address: [address] [place] [address] Performed By: #### 5 8410-2 ####[facility] LABORATORYCLIA [id number] [place] [address] [place] WBC (Bld) [#/Vol] 8.18 10*3/uL Normal 3.70-11.00 [facility] Comment on above: Order Comment: Speci men Type: BLOOD SPECIMENOrdering Facility: [facility] Address: [address] [place] [address] Performed By: #### 5 8410-2 ####[facility] LABORATORYCLIA [id number] [place] [id number] [employer] [place] Hepatic function 2000 panelo n 11-02-2023 Albumin [Mass/Vol] 1.8 g/dL Low 3.2-5.0 [facility] Comment on above: Order Comment: Speci men Type: BLOOD SPECIMENOrdering Facility: [facility] Address: [address] [place] [address] Performed By: #### 2 4321-2, 95502-2, 2777-1 ####[facility] LABORATORYCLIA [id number] [place] [id number] [place] ALP [Catalytic activity/Vol] 72 U/L Normal 45-117 [facility] Comment on above: Order Comment: Speci men Type: BLOOD SPECIMENOrdering Facility: [facility] Address: [address] [place] [address] Performed By: #### 2 4321-2, 98793-3, 2777-1 ####[facility] LABORATORYCLIA [id number] [place] [id number] [place] ALT [Catalytic activity/Vol] 100 U/L High 13-61 [facility] Comment on above: Order Comment: Speci men Type: BLOOD SPECIMENOrdering Facility: [facility] Address: [address] [place] [address] Result Comment: Resu lts may be falsely depressed after the administration of Sulfasalazine and/or Sulfapyridine. Performed By: #### 2 4321-2, 98727-7, 2777-1 ####[facility] LABORATORYCLIA [id number] [place] [id number] [place] AST [Catalytic activity/Vol] 35 U/L High 8-34 [facility] Comment on above: Order Comment: Speci men Type: BLOOD SPECIMENOrdering Facility: [facility] Address: [address] [place] [address] Result Comment: Resu lts may be falsely depressed after the administration of Sulfasalazine and/or Sulfapyridine. Performed By: #### 2 4321-2, 44998-0, 2777-1 ####[facility] LABORATORYCLIA [id number] [place] [id number] [place] Bilirubin [Mass/Vol] 0.7 mg/dL Normal 0.2-1.0 [facility] Comment on above: Order Comment: Speci men Type: BLOOD SPECIMENOrdering Facility: [facility] Address: [address] [place] [address] Performed By: #### 2 4321-2, 38132-8, 2777-1 ####[facility] LABORATORYCLIA [id number] [address] [place] Bilirubin.conjugated [Mass/Vol] 0.3 mg/dL Normal 0.0-0.4 [facility] Comment on above: Order Comment: Speci men Type: BLOOD SPECIMENOrdering Facility: [facility] Address: [address] [place] [address] Performed By: #### 2 4321-2, 32264-5, 2777-1 ####[facility] LABORATORYCLIA [id number] [place] [address] [place] Protein [Mass/Vol] 4.0 g/dL Low 6.0-8.5 [facility] Comment on above: Order Comment: Speci men Type: BLOOD SPECIMENOrdering Facility: [facility] Address: [address] [place] [address] Performed By: #### 2 4321-2, 30323-6, 2777-1 ####[facility] LABORATORYCLIA [id number] [place] [id number] [place] Phosphate SerPl-mCncon 11-02 Phosphate [Mass/Vol] 6.1 mg/dL High 2.5-4.9 [facility] Comment on above: Order Comment: Speci men Type: BLOOD SPECIMENOrdering Facility: [facility] Address: [address] [place] [address] Result Comment: Elev ated m-protein (paraprotein) levels in the serum may be exhibited in patients with monoclonal gammopathies, causing falsely elevated inorganic phosphorus results. Performed By: #### 2 4321-2, 03938-5, 2777-1 ####[facility] LABORATORYCLIA [id number] [place] [address] [place] THERAPY NTon 11-02-2023 THERAPY NT Normal [facility] Basic metabolic 2000 panelon 11-01-2023 Anion gap [Moles/Vol] 8 mmol/L Normal 5-16 [facility] Comment on above: Order Comment: Speci men Type: BLOOD SPECIMENOrdering Facility: [facility] Address: [address] [place] [address] Performed By: #### 5 0190-8, 2276-4, 28318-7, 39864-6, 57522-7 ####[facility] LABORATORYCLIA [id number] [place] [id number] [place] Calcium [Mass/Vol] 7.8 mg/dL Low 8.5-10.5 [facility] Comment on above: Order Comment: Speci men Type: BLOOD SPECIMENOrdering Facility: [facility] Address: [address] [place] [address] Performed By: #### 5 0190-8, 6-4, 21880-3, 60070-1, 60981-6 ####[facility] LABORATORYCLIA [id number] [place] [id number] [place] Chloride [Moles/Vol] 112 mmol/L High 98-107 [facility] Comment on above: Order Comment: Speci men Type: BLOOD SPECIMENOrdering Facility: [facility] Address: [address] [place] [address] Performed By: #### 5 0190-8, 6-4, 48727-6, 34135-5, 55344-3 ####[facility] LABORATORYCLIA [id number] [place] [address] [place] CO2 [Moles/Vol] 22 mmol/L Normal 21-32 [facility] Comment on above: Order Comment: Elizabeth riggs Type: BLOOD SPECIMENOrdering Facility: [facility] Address: [address] [place] [address] Performed By: #### 5 0190-8, 2276-4, 68008-2, 20833-5, 48873-9 ####[facility] LABORATORYCLIA [id number] [place] [phone] [place] Creatinine [Mass/Vol] 4.03 mg/dL High 0.50-1.40 [facility] Comment on above: Order Comment: Elizabeth riggs Type: BLOOD SPECIMENOrdering Facility: [facility] Address: [address] [place] [address] Result Comment: Raquel ents receiving either N-Acetylcysteine (NAC) or Metamizole prior to venipuncture, may have falsely depressed results. Performed By: #### 5 0190-8, 2276-4, 70068-0, 75828-3, 77496-9 ####[facility] LABORATORYCLIA [id number] [place] [id number] [place] Creatinine and Glomerular filtration rate.predicted panel (S/P/Bld) 15 mL/min/1.73m??? Low >=60 [facility] Comment on above: Order Comment: Elizabeth riggs Type: BLOOD SPECIMENOrdering Facility: [facility] Address: [address] [place] [address] Result Comment: More mated Glomerular Filtration Rate (eGFR) is calculated using the 2020 CKD-EPI creatinine equation. This equation utilizes serum creatinine, sex, and age as parameters. The creatinine assay has traceable calibration to isotope dilution-mass spectrometry. Refer to KDIGO guidelines for clinical interpretation. In patients with unstable renal function, e.g. those with acute kidney injury, the eGFR may not accurately reflect actual GFR. Performed By: #### 5 0190-8, 2276-4, 73293-7, 55492-0, 58157-4 ####[facility] LABORATORYCLIA [id number] [place] [id number] [place] Glucose [Mass/Vol] 109 mg/dL High 70-100 [facility] Comment on above: Order Comment: Speci men Type: BLOOD SPECIMENOrdering Facility: [facility] Address: [address] [place], [place] [address] Result Comment: The [place] Diabetes Association (ADA) provides guidance for cutoff values for fasting glucose and random glucose. The ADA defines fasting as no caloric intake for at least 8 hours. Fasting plasma glucose results between 100 to 125 mg/dL indicate increased risk for diabetes (prediabetes).Fasting plasma glucose results greater than or equal to 126 mg/dL meet the criteria for diagnosis of diabetes. In the absence of unequivocal hyperglycemia, results should be confirmed by repeat testing. In a patient with classic symptoms of hyperglycemia or hyperglycemic crisis, random plasma glucose results greater than or equal to 200 mg/dL meet the criteria for diagnosis of diabetes.Reference: Standards of Medical Care in Diabetes 2016, [place] [employer]. Diabetes Care. 2016.39(Suppl 1).Results may be falsely elevated after the administration of Sulfapyridine.Results may be falsely depressed after the administration of Sulfasalazine. Performed By: #### 5 0190-8, 2276-4, 19339-3, 09648-1, 69463-6 ####[facility] LABORATORYCLIA [id number] [place] [address] [place] Potassium [Moles/Vol] 3.9 mmol/L Normal 3.5-5.1 [facility] Comment on above: Order Comment: Sydnii men Type: BLOOD SPECIMENOrdering Facility: [facility] Address: [address] [place] [address] Performed By: #### 5 0190-8, 2276-4, 33619-0, 15025-8, 08095-3 ####[facility] LABORATORYCLIA [id number] [place] [address] [place] Sodium [Moles/Vol] 142 mmol/L Normal 136-145 [facility] Comment on above: Order Comment: Sydnii men Type: BLOOD SPECIMENOrdering Facility: [facility] Address: [address] [place], [place] [address] Performed By: #### 5 0190-8, 2276-4, 05243-9, 76180-9, 62451-3 ####[facility] LABORATORYCLIA [id number] [place] [address] [place] Urea nitrogen [Mass/Vol] 118 mg/dL High 7-26 [facility] Comment on above: Order Comment: Speci men Type: BLOOD SPECIMENOrdering Facility: [facility] Address: [address] [place] [address] Performed By: #### 5 0190-8, 2276-4, 73145-9, 25815-8, 13310-9 ####[facility] LABORATORYCLIA [id number] [place] [id number] [employer] [place] CASE MANAGEMon 11-01-2023 CASE MANAGEM Normal [facility] CASE MANAGEM Normal [facility] CBC panel Auto (Bld)on 11-01 Erythrocyte distribution width (RBC) [Ratio] 18.6 % High 11.5-15.0 [facility] Comment on above: Order Comment: Speci men Type: BLOOD SPECIMENOrdering Facility: [facility] Address: [address] [place] [address] Performed By: #### 5 8410-2 ####[facility] LABORATORYCLIA [id number] [place] [address] [place] Hematocrit (Bld) [Volume fraction] 24.5 % Low 39.0-51.0 [facility] Comment on above: Order Comment: Speci men Type: BLOOD SPECIMENOrdering Facility: [facility] Address: [address] [place] [address] Performed By: #### 5 8410-2 ####[facility] LABORATORYCLIA [id number] [place] [id number] [place] Hemoglobin (Bld) [Mass/Vol] 7.9 g/dL Low 13.0-17.0 [facility] Comment on above: Order Comment: Speci men Type: BLOOD SPECIMENOrdering Facility: [facility] Address: [address] [place] [address] Performed By: #### 5 8410-2 ####[facility] LABORATORYCLIA [id number] [address] OF [facility] MCH (RBC) [Entitic mass] 31.0 pg Normal 26.0-34.0 [facility] Comment on above: Order Comment: Speci men Type: BLOOD SPECIMENOrdering Facility: [facility] Address: [address] [place] [address] Performed By: #### 5 8410-2 ####[facility] LABORATORYCLIA [id number] [place] [address] [place] MCHC (RBC) [Mass/Vol] 32.2 g/dL Normal 30.5-36.0 [facility] Comment on above: Order Comment: Speci men Type: BLOOD SPECIMENOrdering Facility: [facility] Address: [address] [place] [address] Performed By: #### 5 8410-2 ####[facility] LABORATORYCLIA [id number] [address] [place] MCV (RBC) [Entitic vol] 96.1 fL Normal 80.0-100.0 [facility] Comment on above: Order Comment: Speci men Type: BLOOD SPECIMENOrdering Facility: [facility] Address: [address] [place] [address] Performed By: #### 5 8410-2 ####[facility] LABORATORYCLIA [id number] [address] [place] Nucleated RBC (Bld) [#/Vol] 0.06 10*3/uL High <0.01 [facility] Comment on above: Order Comment: Speci men Type: BLOOD SPECIMENOrdering Facility: [facility] Address: [address] [place] [id number] Performed By: #### 5 8410-2 ####[facility] LABORATORYCLIA [id number] [address] [place] Platelet mean volume (Bld) [Entitic vol] 10.3 fL Normal 9.0-12.7 [facility] Comment on above: Order Comment: Speci men Type: BLOOD SPECIMENOrdering Facility: [facility] Address: [address] [place], [place] [address] Performed By: #### 5 8410-2 ####[facility] LABORATORYCLIA [id number] [place] [phone] [facility] Platelets (Bld) [#/Vol] 115 10*3/uL Low 150-400 [facility] Comment on above: Order Comment: Speci men Type: BLOOD SPECIMENOrdering Facility: [facility] Address: [address] [place] [address] Performed By: #### 5 8410-2 ####[facility] LABORATORYCLIA [id number] [place] [phone] [employer] [place] RBC (Bld) [#/Vol] 2.55 10*6/uL Low 4.20-6.00 [facility] Comment on above: Order Comment: Speci men Type: BLOOD SPECIMENOrdering Facility: [facility] Address: [address] [place] [address] Performed By: #### 5 8410-2 ####[facility] LABORATORYCLIA [id number] [place] [phone] [employer] [place] WBC (Bld) [#/Vol] 8.27 10*3/uL Normal 3.70-11.00 [facility] Comment on above: Order Comment: Speci men Type: BLOOD SPECIMENOrdering Facility: [facility] Address: [address] [place], [place] [address] Performed By: #### 5 8410-2 ####[facility] LABORATORYCLIA [id number] [place] [phone] [employer] [place] CONSULTon 11-01-2023 CONSULT Normal [facility] CONSULT PROGon 11-01-2023 CONSULT PROG Normal [facility] Ferritin SerPl-mCncon 2023 Ferritin [Mass/Vol] 313.9 ng/mL Normal 24.0-388.0 [facility] Comment on above: Order Comment: Speci men Type: BLOOD SPECIMENOrdering Facility: [facility] Address: [address] [place] [address] Performed By: #### 5 0190-8, 2276-4, 59195-1, 77720-1, 52463-3 ####[facility] LABORATORYCLIA [id number] [place] [id number] [place] HBV surface Ab Ql (S)on 10-14 HBV surface Ab Qn (S) <3.10 [facility] Comment on above: Order Comment: Speci men Type: BLOOD SPECIMENOrdering Facility: [facility] Address: [address] [place] [address] Result Comment: STAT US OF IMMUNITYProtective Immunity: greater than or equal to 10 mIU/mL (Traceable to WHO International Reference Preparation)No Protective Immunity: less than 10 mIU/mLNote: The magnitude of the measured result above the cutoff is not indicative of the total amount of antibody present. Performed By: #### 5 0190-8, 2276-4, 97396-1, 21649-9, 30628-2 ####[facility] LABORATORYCLIA [id number] [place] [id number] [place] HBV surface Ab Ser Qlon 10-14 HBV surface Ab Ql (S) Negative [facility] Comment on above: Order Comment: Elizabeth riggs Type: BLOOD SPECIMENOrdering Facility: [facility] Address: [address] [place] [address] Result Comment: No s erological evidence of immunity to Hepatitis B Virus. Performed By: #### 5 0190-8, 2276-4, 55672-0, 89713-0, 97933-8 ####[facility] LABORATORYCLIA [id number] [place] [id number] [employer] [place] Hepatic function 2000 panelo n 11-01-2023 Albumin [Mass/Vol] 1.7 g/dL Low 3.2-5.0 [facility] Comment on above: Order Comment: Elizabeth riggs Type: BLOOD SPECIMENOrdering Facility: [facility] Address: [address] [place] [address] Performed By: #### 5 0190-8, 6-4, 73096-8, 41456-6, 64524-6 ####[facility] LABORATORYCLIA [id number] [place] [id number] [place] ALP [Catalytic activity/Vol] 67 U/L Normal 45-117 [facility] Comment on above: Order Comment: Speci men Type: BLOOD SPECIMENOrdering Facility: [facility] Address: [address] [place] [address] Performed By: #### 5 0190-8, 6-4, 73208-2, 30634-0, 63452-9 ####[facility] LABORATORYCLIA [id number] [place] [id number] [place] ALT [Catalytic activity/Vol] 126 U/L High 13-61 [facility] Comment on above: Order Comment: Speci men Type: BLOOD SPECIMENOrdering Facility: [facility] Address: [address] [place] [address] Result Comment: Resu lts may be falsely depressed after the administration of Sulfasalazine and/or Sulfapyridine. Performed By: #### 5 0190-8, 6-4, 70729-8, 11678-9, 69108-5 ####[facility] LABORATORYCLIA [id number] [place] [address] [place] [facility] AST [Catalytic activity/Vol] 42 U/L High 8-34 [facility] Comment on above: Order Comment: Speci men Type: BLOOD SPECIMENOrdering Facility: [facility] Address: [address] [place] [address] Result Comment: Resu lts may be falsely depressed after the administration of Sulfasalazine and/or Sulfapyridine. Performed By: #### 5 0190-8, 2276-4, 33012-8, 51818-3, 23145-1 ####[facility] LABORATORYCLIA [id number] [place] [id number] [place] Bilirubin [Mass/Vol] 0.7 mg/dL Normal 0.2-1.0 [facility] Comment on above: Order Comment: Speci men Type: BLOOD SPECIMENOrdering Facility: [facility] Address: [address] [place] [address] Performed By: #### 5 0190-8, 2276-4, 08277-1, 80065-0, 08698-9 ####[facility] LABORATORYCLIA [id number] [place] [id number] [place] Bilirubin.conjugated [Mass/Vol] 0.4 mg/dL Normal 0.0-0.4 [facility] Comment on above: Order Comment: Speci men Type: BLOOD SPECIMENOrdering Facility: [facility] Address: [address] [place] [address] Performed By: #### 5 0190-8, 2276-4, 24291-8, 31275-4, 34024-4 ####[facility] LABORATORYCLIA [id number] [place] [address] [place] Protein [Mass/Vol] 3.9 g/dL Low 6.0-8.5 [facility] Comment on above: Order Comment: Speci men Type: BLOOD SPECIMENOrdering Facility: [facility] Address: [address] [place] [address] Performed By: #### 5 0190-8, 6-4, 02015-0, 65179-2, 82776-1 ####[facility] LABORATORYCLIA [id number] [place] [address] [place] Iron and Iron binding capaci ty panelon 11-01-2023 Iron [Mass/Vol] 55 ug/dL Low 65-175 [facility] Comment on above: Order Comment: Speci men Type: BLOOD SPECIMENOrdering Facility: [facility] Address: [address] [place] [address] Result Comment: Raquel ents treated with metal-binding drugs (e.g.deferoxamine) may have depressed iron values, as chelated iron may not properly react in the Siemens iron assay. Performed By: #### 5 0190-8, 2276-4, 29204-7, 69757-7, 38496-9 ####[facility] LABORATORYCLIA [id number] [place] [id number] [place] Iron binding capacity [Mass/Vol] 211 ug/dL Low 221-481 [facility] Comment on above: Order Comment: Speci men Type: BLOOD SPECIMENOrdering Facility: [facility] Address: [address] [place], [place] [id number] Performed By: #### 5 0190-8, 2276-4, 36592-3, 68836-0, 60227-0 ####[facility] LABORATORYCLIA [id number] [place] [id number] [place] Iron/TIBC [Molar ratio] 26.1 % Normal 22.0-44.0 [facility] Comment on above: Order Comment: Speci men Type: BLOOD SPECIMENOrdering Facility: [facility] Address: [address] [place] [address] Performed By: #### 5 0190-8, 2276-4, 71283-9, 39602-4, 77412-9 ####[facility] LABORATORYCLIA [id number] [place] [id number] [employer] [place] THERAPY NTon 11-01-2023 THERAPY NT Normal [facility] THERAPY NT Normal [facility] Basic metabolic 2000 panelon 10-31-2023 Anion gap [Moles/Vol] 5 mmol/L Normal 5-16 [facility] Comment on above: Order Comment: Speci men Type: BLOOD SPECIMENOrdering Facility: [facility] Address: [address] [place] [address] Performed By: #### 2 4321-2 ####[facility] LABORATORYCLIA [id number] [place] [id number] [place] Calcium [Mass/Vol] 7.9 mg/dL Low 8.5-10.5 [facility] Comment on above: Order Comment: Speci men Type: BLOOD SPECIMENOrdering Facility: [facility] Address: [address] [place] [address] Performed By: #### 2 4321-2 ####[facility] LABORATORYCLIA [id number] [place] [id number] [place] Chloride [Moles/Vol] 112 mmol/L High 98-107 [facility] Comment on above: Order Comment: Speci men Type: BLOOD SPECIMENOrdering Facility: [facility] Address: [address] [place] [address] Performed By: #### 2 4321-2 ####[facility] LABORATORYCLIA [id number] [place] [id number] [place] CO2 [Moles/Vol] 23 mmol/L Normal 21-32 [facility] Comment on above: Order Comment: Speci men Type: BLOOD SPECIMENOrdering Facility: [facility] Address: [address] [place] [address] Performed By: #### 2 4321-2 ####[facility] LABORATORYCLIA [id number] [place] [address] [place] Creatinine [Mass/Vol] 4.25 mg/dL High 0.50-1.40 [facility] Comment on above: Order Comment: Speci men Type: BLOOD SPECIMENOrdering Facility: [facility] Address: [address] [place] [address] Result Comment: Raquel ents receiving either N-Acetylcysteine (NAC) or Metamizole prior to venipuncture, may have falsely depressed results. Performed By: #### 2 4321-2 ####[facility] LABORATORYCLIA [id number] [address] [place] Creatinine and Glomerular filtration rate.predicted panel (S/P/Bld) 14 mL/min/1.73m??? Low >=60 [facility] Comment on above: Order Comment: Speci men Type: BLOOD SPECIMENOrdering Facility: [facility] Address: [address] [place] [address] Result Comment: More mated Glomerular Filtration Rate (eGFR) is calculated using the 2020 CKD-EPI creatinine equation. This equation utilizes serum creatinine, sex, and age as parameters. The creatinine assay has traceable calibration to isotope dilution-mass spectrometry. Refer to KDIGO guidelines for clinical interpretation. In patients with unstable renal function, e.g. those with acute kidney injury, the eGFR may not accurately reflect actual GFR. Performed By: #### 2 4321-2 ####[facility] LABORATORYCLIA [id number] [place] [address] [place] Glucose [Mass/Vol] 127 mg/dL High 70-100 [facility] Comment on above: Order Comment: Speci men Type: BLOOD SPECIMENOrdering Facility: [facility] Address: [address] [place] [address] Result Comment: The [place] [employer] (ADA) provides guidance for cutoff values for fasting glucose and random glucose. The ADA defines fasting as no caloric intake for at least 8 hours. Fasting plasma glucose results between 100 to 125 mg/dL indicate increased risk for diabetes (prediabetes).Fasting plasma glucose results greater than or equal to 126 mg/dL meet the criteria for diagnosis of diabetes. In the absence of unequivocal hyperglycemia, results should be confirmed by repeat testing. In a patient with classic symptoms of hyperglycemia or hyperglycemic crisis, random plasma glucose results greater than or equal to 200 mg/dL meet the criteria for diagnosis of diabetes.Reference: Standards of Medical Care in Diabetes 2016, [place] [employer]. Diabetes Care. 2016.39(Suppl 1).Results may be falsely elevated after the administration of Sulfapyridine.Results may be falsely depressed after the administration of Sulfasalazine. Performed By: #### 2 4321-2 ####[facility] LABORATORYCLIA [id number] [place] [address] [place] Potassium [Moles/Vol] 4.6 mmol/L Normal 3.5-5.1 [facility] Comment on above: Order Comment: Speci men Type: BLOOD SPECIMENOrdering Facility: [facility] Address: [address] [place] [address] Performed By: #### 2 4321-2 ####[facility] LABORATORYCLIA [id number] [place] [id number] [place] Sodium [Moles/Vol] 140 mmol/L Normal 136-145 [facility] Comment on above: Order Comment: Speci men Type: BLOOD SPECIMENOrdering Facility: [facility] Address: [address] [place] [address] Performed By: #### 2 4321-2 ####[facility] LABORATORYCLIA [id number] [place] [address] [place] Urea nitrogen [Mass/Vol] 135 mg/dL High 04-07 [facility] Comment on above: Order Comment: Speci men Type: BLOOD SPECIMENOrdering Facility: [facility] Address: [address] [place] [address] Performed By: #### 2 4321-2 ####[facility] LABORATORYCLIA [id number] [place] [address] [place] CBC W Auto Differential pane l (Bld)on 10-31-2023 Acanthocytes LM Ql (Bld) Few Normal [facility] Comment on above: Order Comment: Speci men Type: BLOOD SPECIMENOrdering Facility: [facility] Address: [address] [place] [address] Performed By: #### 5 7021-8 ####[facility] LABORATORYCLIA [id number] [address] [place] Basophils (Bld) [#/Vol] 0.00 10*3/uL Normal <0.11 [facility] Comment on above: Order Comment: Speci men Type: BLOOD SPECIMENOrdering Facility: [facility] Address: [address] [place] [address] Performed By: #### 5 7021-8 ####[facility] LABORATORYCLIA [id number] [address] [place] Basophils/100 WBC (Bld) 0.0 % Normal [facility] Comment on above: Order Comment: Speci men Type: BLOOD SPECIMENOrdering Facility: [facility] Address: [address] [place] [address] Performed By: #### 5 7021-8 ####[facility] LABORATORYCLIA [id number] [place] [address] [place] Differential cell count method Nom (Bld) Manual Normal [facility] Comment on above: Order Comment: Speci men Type: BLOOD SPECIMENOrdering Facility: [facility] Address: [address] [place] [address] Performed By: #### 5 7021-8 ####[facility] LABORATORYCLIA [id number] [place] [id number] [place] Eosinophils (Bld) [#/Vol] 0.00 10*3/uL Normal <0.46 [facility] Comment on above: Order Comment: Speci men Type: BLOOD SPECIMENOrdering Facility: [facility] Address: [address] [place] [address] Performed By: #### 5 7021-8 ####[facility] LABORATORYCLIA [id number] [address] [place] Eosinophils/100 WBC (Bld) 0.0 % Normal [facility] Comment on above: Order Comment: Speci men Type: BLOOD SPECIMENOrdering Facility: [facility] Address: [address] [place] [address] Performed By: #### 5 7021-8 ####[facility] LABORATORYCLIA [id number] [address] [place] Erythrocyte distribution width (RBC) [Ratio] 18.4 % High 11.5-15.0 [facility] Comment on above: Order Comment: Speci men Type: BLOOD SPECIMENOrdering Facility: [facility] Address: [address] [place] [address] Performed By: #### 5 7021-8 ####[facility] LABORATORYCLIA [id number] [address] [place] Hematocrit (Bld) [Volume fraction] 20.8 % Low 39.0-51.0 [facility] Comment on above: Order Comment: Speci men Type: BLOOD SPECIMENOrdering Facility: [facility] Address: [address] [place] [address] Performed By: #### 5 7021-8 ####[facility] LABORATORYCLIA [id number] [address] [place] Hemoglobin (Bld) [Mass/Vol] 6.6 g/dL Low 13.0-17.0 [facility] Comment on above: Order Comment: Speci men Type: BLOOD SPECIMENOrdering Facility: [facility] Address: [address] [place] [address] Performed By: #### 5 7021-8 ####[facility] LABORATORYCLIA [id number] [address] [place] Lymphocytes (Bld) [#/Vol] 0.75 10*3/uL Low 1.00-4.00 [facility] Comment on above: Order Comment: Speci men Type: BLOOD SPECIMENOrdering Facility: [facility] Address: [address] [place] [address] Performed By: #### 5 7021-8 ####[facility] LABORATORYCLIA [id number] [address] [place] Lymphocytes/100 WBC (Bld) 8.0 % Normal [facility] Comment on above: Order Comment: Speci men Type: BLOOD SPECIMENOrdering Facility: [facility] Address: [address] [place] [address] Performed By: #### 5 7021-8 ####[facility] LABORATORYCLIA [id number] [place] [address] [place] MCH (RBC) [Entitic mass] 30.6 pg Normal 26.0-34.0 [facility] Comment on above: Order Comment: Speci men Type: BLOOD SPECIMENOrdering Facility: [facility] Address: [address] [place] [address] Performed By: #### 5 7021-8 ####[facility] LABORATORYCLIA [id number] [place] [address] [place] MCHC (RBC) [Mass/Vol] 31.7 g/dL Normal 30.5-36.0 [facility] Comment on above: Order Comment: Speci men Type: BLOOD SPECIMENOrdering Facility: [facility] Address: [address] [place] [address] Performed By: #### 5 7021-8 ####[facility] LABORATORYCLIA [id number] [place] [address] [place] MCV (RBC) [Entitic vol] 96.3 fL Normal 80.0-100.0 [facility] Comment on above: Order Comment: Speci men Type: BLOOD SPECIMENOrdering Facility: [facility] Address: [address] [place] [address] Performed By: #### 5 7021-8 ####[facility] LABORATORYCLIA [id number] [place] [address] [place] Metamyelocytes/100 WBC (Bld) 1.0 % Normal [facility] Comment on above: Order Comment: Speci men Type: BLOOD SPECIMENOrdering Facility: [facility] Address: [address] [place] [address] Performed By: #### 5 7021-8 ####[facility] LABORATORYCLIA [id number] [place] [address] [place] Monocytes (Bld) [#/Vol] 0.09 10*3/uL Normal <0.87 [facility] Comment on above: Order Comment: Speci men Type: BLOOD SPECIMENOrdering Facility: [facility] Address: [address] [place] [address] Performed By: #### 5 7021-8 ####[facility] LABORATORYCLIA [id number] [place] [address] [place] Monocytes/100 WBC (Bld) 1.0 % Normal [facility] Comment on above: Order Comment: Speci men Type: BLOOD SPECIMENOrdering Facility: [facility] Address: [address] [place] [address] Performed By: #### 5 7021-8 ####[facility] LABORATORYCLIA [id number] [place] [address] [place] Neutrophils (Bld) [#/Vol] 8.44 10*3/uL High 1.45-7.50 [facility] Comment on above: Order Comment: Speci men Type: BLOOD SPECIMENOrdering Facility: [facility] Address: [address] [place] [address] Performed By: #### 5 7021-8 ####[facility] LABORATORYCLIA [id number] [place] [address] [place] Neutrophils/100 WBC (Bld) 90.0 % Normal [facility] Comment on above: Order Comment: Speci men Type: BLOOD SPECIMENOrdering Facility: [facility] Address: [address] [place] [address] Performed By: #### 5 7021-8 ####[facility] LABORATORYCLIA [id number] [place] [address] [place] Nucleated RBC (Bld) [#/Vol] 10*3/uL Normal <0.01 [facility] Comment on above: Order Comment: Speci men Type: BLOOD SPECIMENOrdering Facility: [facility] Address: [address] [place] [address] Performed By: #### 5 7021-8 ####[facility] LABORATORYCLIA [id number] [place] [address] [place] Nucleated RBC/100 WBC (Bld) [Ratio] 0.0 /100 WBC Normal [facility] Comment on above: Order Comment: Speci men Type: BLOOD SPECIMENOrdering Facility: [facility] Address: [address] [place] [address] Performed By: #### 5 7021-8 ####[facility] LABORATORYCLIA [id number] [place] [address] [place] Ovalocytes LM Ql (Bld) Few Normal [facility] Comment on above: Order Comment: Speci men Type: BLOOD SPECIMENOrdering Facility: [facility] Address: [address] [place] [address] Performed By: #### 5 7021-8 ####[facility] LABORATORYCLIA [id number] [place] [address] [place] Platelet mean volume (Bld) [Entitic vol] 10.0 fL Normal 9.0-12.7 [facility] Comment on above: Order Comment: Speci men Type: BLOOD SPECIMENOrdering Facility: [facility] Address: [address] [place] [address] Performed By: #### 5 7021-8 ####[facility] LABORATORYCLIA [id number] [place] [address] [place] Platelets (Bld) [#/Vol] 110 10*3/uL Low 150-400 [facility] Comment on above: Order Comment: Speci men Type: BLOOD SPECIMENOrdering Facility: [facility] Address: [address] [place] [address] Performed By: #### 5 7021-8 ####[facility] LABORATORYCLIA [id number] [address] Platelets Estimate (Bld) [#/Vol] Decreased Normal [facility] Comment on above: Order Comment: Speci men Type: BLOOD SPECIMENOrdering Facility: [facility] Address: [address] [place] [address] Performed By: #### 5 7021-8 ####[facility] LABORATORYCLIA [id number] [place] [address] [place] Polychromasia LM Ql (Bld) Slight Normal [facility] Comment on above: Order Comment: Speci men Type: BLOOD SPECIMENOrdering Facility: [facility] Address: [address] [place] [address] Performed By: #### 5 7021-8 ####[facility] LABORATORYCLIA [id number] [place] [address] [place] RBC (Bld) [#/Vol] 2.16 10*6/uL Low 4.20-6.00 [facility] Comment on above: Order Comment: Speci men Type: BLOOD SPECIMENOrdering Facility: [facility] Address: [address] [place] [address] Performed By: #### 5 7021-8 ####[facility] LABORATORYCLIA [id number] [place] [address] [place] RED CELL MORPH Reviewed: see result s of individual morphologies Normal [facility] Comment on above: Order Comment: Speci men Type: BLOOD SPECIMENOrdering Facility: [facility] Address: [address] [place] [address] Performed By: #### 5 7021-8 ####[facility] LABORATORYCLIA [id number] [place] [address] [place] WBC (Bld) [#/Vol] 9.38 10*3/uL Normal 3.70-11.00 [facility] Comment on above: Order Comment: Speci men Type: BLOOD SPECIMENOrdering Facility: [facility] Address: [address] [place] [address] Performed By: #### 5 7021-8 ####[facility] LABORATORYCLIA [id number] [place] [address] [place] Acanthocytes LM Ql (Bld) Few Normal [facility] Comment on above: Order Comment: Speci men Type: BLOOD SPECIMENOrdering Facility: [facility] Address: [address] [place] [address] Performed By: #### 5 7021-8 ####[facility] LABORATORYCLIA [id number] [place] [address] [place] Band form neutrophils/100 WBC (Bld) 1.0 % Normal [facility] Comment on above: Order Comment: Speci men Type: BLOOD SPECIMENOrdering Facility: [facility] Address: [address] [place] [address] Performed By: #### 5 7021-8 ####[facility] LABORATORYCLIA [id number] [place] [address] [place] Basophils (Bld) [#/Vol] 0.00 10*3/uL Normal <0.11 [facility] Comment on above: Order Comment: Speci men Type: BLOOD SPECIMENOrdering Facility: [facility] Address: [address] [place] [address] Performed By: #### 5 7021-8 ####[facility] LABORATORYCLIA [id number] [place] [address] [place] Basophils/100 WBC (Bld) 0.0 % Normal [facility] Comment on above: Order Comment: Speci men Type: BLOOD SPECIMENOrdering Facility: [facility] Address: [address] [place] [address] Performed By: #### 5 7021-8 ####[facility] LABORATORYCLIA [id number] [address] Differential cell count method Nom (Bld) Manual Normal [facility] Comment on above: Order Comment: Speci men Type: BLOOD SPECIMENOrdering Facility: [facility] Address: [address] [place] [address] Performed By: #### 5 7021-8 ####[facility] LABORATORYCLIA [id number] [address] Eosinophils (Bld) [#/Vol] 0.11 10*3/uL Normal <0.46 [facility] Comment on above: Order Comment: Speci men Type: BLOOD SPECIMENOrdering Facility: [facility] Address: [address] [place] [address] Performed By: #### 5 7021-8 ####[facility] LABORATORYCLIA [id number] [address] Eosinophils/100 WBC (Bld) 1.0 % Normal [facility] Comment on above: Order Comment: Speci men Type: BLOOD SPECIMENOrdering Facility: [facility] Address: [address] [place] [address] Performed By: #### 5 7021-8 ####[facility] LABORATORYCLIA [id number] [address] [place] Erythrocyte distribution width (RBC) [Ratio] 18.6 % High 11.5-15.0 [facility] Comment on above: Order Comment: Speci men Type: BLOOD SPECIMENOrdering Facility: [facility] Address: [address] [place] [address] Performed By: #### 5 7021-8 ####[facility] LABORATORYCLIA [id number] [place] [address] [place] Hematocrit (Bld) [Volume fraction] 21.9 % Low 39.0-51.0 [facility] Comment on above: Order Comment: Speci men Type: BLOOD SPECIMENOrdering Facility: [facility] Address: [address] [place] [address] Performed By: #### 5 7021-8 ####[facility] LABORATORYCLIA [id number] [place] [address] [place] Hemoglobin (Bld) [Mass/Vol] 7.0 g/dL Low 13.0-17.0 [facility] Comment on above: Order Comment: Speci men Type: BLOOD SPECIMENOrdering Facility: [facility] Address: [address] [place] [address] Performed By: #### 5 7021-8 ####[facility] LABORATORYCLIA [id number] [place] [address] [place] Lymphocytes (Bld) [#/Vol] 1.76 10*3/uL Normal 1.00-4.00 [facility] Comment on above: Order Comment: Speci men Type: BLOOD SPECIMENOrdering Facility: [facility] Address: [address] [place] [address] Performed By: #### 5 7021-8 ####[facility] LABORATORYCLIA [id number] [address] [place] Lymphocytes/100 WBC (Bld) 16.0 % Normal [facility] Comment on above: Order Comment: Speci men Type: BLOOD SPECIMENOrdering Facility: [facility] Address: [address] [place] [address] Performed By: #### 5 7021-8 ####[facility] LABORATORYCLIA [id number] [place] [address] [place] MCH (RBC) [Entitic mass] 31.0 pg Normal 26.0-34.0 [facility] Comment on above: Order Comment: Speci men Type: BLOOD SPECIMENOrdering Facility: [facility] Address: [address] [place] [address] Performed By: #### 5 7021-8 ####[facility] LABORATORYCLIA [id number] [place] [address] [place] MCHC (RBC) [Mass/Vol] 32.0 g/dL Normal 30.5-36.0 [facility] Comment on above: Order Comment: Speci men Type: BLOOD SPECIMENOrdering Facility: [facility] Address: [address] [place] [address] Performed By: #### 5 7021-8 ####[facility] LABORATORYCLIA [id number] [place] [address] [place] MCV (RBC) [Entitic vol] 96.9 fL Normal 80.0-100.0 [facility] Comment on above: Order Comment: Speci men Type: BLOOD SPECIMENOrdering Facility: [facility] Address: [address] [place] [address] Performed By: #### 5 7021-8 ####[facility] LABORATORYCLIA [id number] [address] Metamyelocytes/100 WBC (Bld) 1.0 % Normal [facility] Comment on above: Order Comment: Speci men Type: BLOOD SPECIMENOrdering Facility: [facility] Address: [address] [place] [address] Performed By: #### 5 7021-8 ####[facility] LABORATORYCLIA [id number] [place] [address] [place] Monocytes (Bld) [#/Vol] 0.11 10*3/uL Normal <0.87 [facility] Comment on above: Order Comment: Speci men Type: BLOOD SPECIMENOrdering Facility: [facility] Address: [address] [place] [address] Performed By: #### 5 7021-8 ####[facility] LABORATORYCLIA [id number] [address] [place] Monocytes/100 WBC (Bld) 1.0 % Normal [facility] Comment on above: Order Comment: Speci men Type: BLOOD SPECIMENOrdering Facility: [facility] Address: [address] [place] [address] Performed By: #### 5 7021-8 ####[facility] LABORATORYCLIA [id number] [place] [address] [place] Neutrophils (Bld) [#/Vol] 8.89 10*3/uL High 1.45-7.50 [facility] Comment on above: Order Comment: Speci men Type: BLOOD SPECIMENOrdering Facility: [facility] Address: [address] [place] [address] Performed By: #### 5 7021-8 ####[facility] LABORATORYCLIA [id number] [place] [address] [place] Neutrophils/100 WBC (Bld) 80.0 % Normal [facility] Comment on above: Order Comment: Speci men Type: BLOOD SPECIMENOrdering Facility: [facility] Address: [address] [place] [address] Performed By: #### 5 7021-8 ####[facility] LABORATORYCLIA [id number] [place] [address] [place] Nucleated RBC (Bld) [#/Vol] 10*3/uL Normal <0.01 [facility] Comment on above: Order Comment: Speci men Type: BLOOD SPECIMENOrdering Facility: [facility] Address: [address] [place] [address] Performed By: #### 5 7021-8 ####[facility] LABORATORYCLIA [id number] [place] [address] [place] Nucleated RBC/100 WBC (Bld) [Ratio] 0.0 /100 WBC Normal [facility] Comment on above: Order Comment: Speci men Type: BLOOD SPECIMENOrdering Facility: [facility] Address: [address] [place] [address] Performed By: #### 5 7021-8 ####[facility] LABORATORYCLIA [id number] [place] [address] [place] Ovalocytes LM Ql (Bld) Few Normal [facility] Comment on above: Order Comment: Speci men Type: BLOOD SPECIMENOrdering Facility: [facility] Address: [address] [place] [address] Performed By: #### 5 7021-8 ####[facility] LABORATORYCLIA [id number] [place] [address] [place] Platelet mean volume (Bld) [Entitic vol] 10.4 fL Normal 9.0-12.7 [facility] Comment on above: Order Comment: Speci men Type: BLOOD SPECIMENOrdering Facility: [facility] Address: [address] [place] [address] Performed By: #### 5 7021-8 ####[facility] LABORATORYCLIA [id number] [place] [address] [place] Platelets (Bld) [#/Vol] 110 10*3/uL Low 150-400 [facility] Comment on above: Order Comment: Speci men Type: BLOOD SPECIMENOrdering Facility: [facility] Address: [address] [place] [address] Performed By: #### 5 7021-8 ####[facility] LABORATORYCLIA [id number] [place] [address] [place] Platelets Estimate (Bld) [#/Vol] Decreased Normal [facility] Comment on above: Order Comment: Speci men Type: BLOOD SPECIMENOrdering Facility: [facility] Address: [address] [place] [address] Performed By: #### 5 7021-8 ####[facility] LABORATORYCLIA [id number] [place] [address] [place] Polychromasia LM Ql (Bld) Slight Normal [facility] Comment on above: Order Comment: Speci men Type: BLOOD SPECIMENOrdering Facility: [facility] Address: [address] [place] [address] Performed By: #### 5 7021-8 ####[facility] LABORATORYCLIA [id number] [place] [address] [place] RBC (Bld) [#/Vol] 2.26 10*6/uL Low 4.20-6.00 [facility] Comment on above: Order Comment: Speci men Type: BLOOD SPECIMENOrdering Facility: [facility] Address: [address] [place] [address] Performed By: #### 5 7021-8 ####[facility] LABORATORYCLIA [id number] [place] [address] [facility] [place] RED CELL MORPH Reviewed: see result s of individual morphologies Normal [facility] Comment on above: Order Comment: Speci men Type: BLOOD SPECIMENOrdering Facility: [facility] Address: [address] [place] [address] [place] [address] Performed By: #### 5 7021-8 ####[facility] LABORATORYCLIA [id number] [address] [place] WBC (Bld) [#/Vol] 10.97 10*3/uL Normal 3.70-11.00 [facility] Comment on above: Order Comment: Speci men Type: BLOOD SPECIMENOrdering Facility: [facility] Address: [address] [place], [place] [address] [address] Performed By: #### 5 7021-8 ####[facility] LABORATORYCLIA [id number] [address] [place] CONSULT PROGon 10-31-2023 CONSULT PROG Normal [facility] Hematocrit Auto (Bld) [Volum e fraction]on 10-31-2023 Hematocrit (Bld) [Volume fraction] 24.1 % Low 39.0-51.0 [facility] Comment on above: Order Comment: Speci men Type: BLOOD SPECIMENOrdering Facility: [facility] Address: [address] [place] [address] Performed By: #### 4 544-3, 718-7 ####[facility] LABORATORYCLIA [id number] [place] [address] [place] Hgb Bld-mCncon 10-31-2023 Hemoglobin (Bld) [Mass/Vol] 7.8 g/dL Low 13.0-17.0 [facility] Comment on above: Order Comment: Speci men Type: BLOOD SPECIMENOrdering Facility: [facility] Address: [facility] [place] [address] Performed By: #### 4 544-3, 718-7 ####[facility] LABORATORYCLIA [id number] [place] [address] [place] XR CHEST 1V FRONTAL PORTon 0 10-31-2023 XR CHEST 1V FRONTAL PORT Normal [facility] Basic metabolic 2000 panelon 10-30-2023 Anion gap [Moles/Vol] 8 mmol/L Normal 5-16 [facility] Comment on above: Order Comment: Speci men Type: BLOOD SPECIMENOrdering Facility: [facility] Address: [address] [place] [address] Performed By: #### 2 4321-2 ####[facility] LABORATORYCLIA [id number] [place] [address] [place] Calcium [Mass/Vol] 7.6 mg/dL Low 8.5-10.5 [facility] Comment on above: Order Comment: Speci men Type: BLOOD SPECIMENOrdering Facility: [facility] Address: [address] [place] [address] Performed By: #### 2 4321-2 ####[facility] LABORATORYCLIA [id number] [place] [address] [place] Chloride [Moles/Vol] 110 mmol/L High 98-107 [facility] Comment on above: Order Comment: Speci men Type: BLOOD SPECIMENOrdering Facility: [facility] Address: [address] [place] [address] Performed By: #### 2 4321-2 ####[facility] LABORATORYCLIA [id number] [place] [address] [place] CO2 [Moles/Vol] 22 mmol/L Normal 21-32 [facility] Comment on above: Order Comment: Speci men Type: BLOOD SPECIMENOrdering Facility: [facility] Address: [address] [place] [address] Performed By: #### 2 4321-2 ####[facility] LABORATORYCLIA [id number] [place] [address] [place] Creatinine [Mass/Vol] 4.31 mg/dL High 0.50-1.40 [facility] Comment on above: Order Comment: Elizabeth riggs Type: BLOOD SPECIMENOrdering Facility: [facility] Address: [address] [place] [address] Result Comment: Raquel ents receiving either N-Acetylcysteine (NAC) or Metamizole prior to venipuncture, may have falsely depressed results. Performed By: #### 2 4321-2 ####[facility] LABORATORYCLIA [id number] [address] Creatinine and Glomerular filtration rate.predicted panel (S/P/Bld) 14 mL/min/1.73m??? Low >=60 [facility] Comment on above: Order Comment: Elizabeth riggs Type: BLOOD SPECIMENOrdering Facility: [facility] Address: [address] [place] [address] Result Comment: More mated Glomerular Filtration Rate (eGFR) is calculated using the 2020 CKD-EPI creatinine equation. This equation utilizes serum creatinine, sex, and age as parameters. The creatinine assay has traceable calibration to isotope dilution-mass spectrometry. Refer to KDIGO guidelines for clinical interpretation. In patients with unstable renal function, e.g. those with acute kidney injury, the eGFR may not accurately reflect actual GFR. Performed By: #### 2 4321-2 ####[facility] LABORATORYCLIA [id number] [place] [address] [place] Glucose [Mass/Vol] 152 mg/dL High 70-100 [facility] Comment on above: Order Comment: Elizabeth riggs Type: BLOOD SPECIMENOrdering Facility: [facility] Address: [address] [place] [address] Result Comment: The [place] [employer] (ADA) provides guidance for cutoff values for fasting glucose and random glucose. The ADA defines fasting as no caloric intake for at least 8 hours. Fasting plasma glucose results between 100 to 125 mg/dL indicate increased risk for diabetes (prediabetes).Fasting plasma glucose results greater than or equal to 126 mg/dL meet the criteria for diagnosis of diabetes. In the absence of unequivocal hyperglycemia, results should be confirmed by repeat testing. In a patient with classic symptoms of hyperglycemia or hyperglycemic crisis, random plasma glucose results greater than or equal to 200 mg/dL meet the criteria for diagnosis of diabetes.Reference: Standards of Medical Care in Diabetes 2016, [place] [employer]. Diabetes Care. 2016.39(Suppl 1).Results may be falsely elevated after the administration of Sulfapyridine.Results may be falsely depressed after the administration of Sulfasalazine. Performed By: #### 2 4321-2 ####[facility] LABORATORYCLIA [id number] [place] [address] [place] Potassium [Moles/Vol] 4.3 mmol/L Normal 3.5-5.1 [facility] Comment on above: Order Comment: Speci keely Type: BLOOD SPECIMENOrdering Facility: [facility] Address: [address] [place] [address] Performed By: #### 2 4321-2 ####[facility] LABORATORYCLIA [id number] [place] [address] [place] Sodium [Moles/Vol] 140 mmol/L Normal 136-145 [facility] Comment on above: Order Comment: Elizabeth riggs Type: BLOOD SPECIMENOrdering Facility: [facility] Address: [address] [place] [address] Performed By: #### 2 4321-2 ####[facility] LABORATORYCLIA [id number] [place] [address] [place] Urea nitrogen [Mass/Vol] 140 mg/dL High 7-26 [facility] Comment on above: Order Comment: Elizabeth riggs Type: BLOOD SPECIMENOrdering Facility: [facility] Address: [address] [place] [address] Performed By: #### 2 4321-2 ####[facility] LABORATORYCLIA [id number] [place] [address] [place] CBC W Auto Differential pane l (Bld)on 10-30-2023 Acanthocytes LM Ql (Bld) Few Normal [facility] Comment on above: Order Comment: Speci men Type: BLOOD SPECIMENOrdering Facility: [facility] Address: [address] [place] [address] Performed By: #### 5 7021-8 ####[facility] LABORATORYCLIA [id number] [place] [address] [place] Basophils (Bld) [#/Vol] 0.00 10*3/uL Normal <0.11 [facility] Comment on above: Order Comment: Speci men Type: BLOOD SPECIMENOrdering Facility: [facility] Address: [address] [place] [address] Performed By: #### 5 7021-8 ####[facility] LABORATORYCLIA [id number] [address] [place] Basophils/100 WBC (Bld) 0.0 % Normal [facility] Comment on above: Order Comment: Speci men Type: BLOOD SPECIMENOrdering Facility: [facility] Address: [address] [place] [address] Performed By: #### 5 7021-8 ####[facility] LABORATORYCLIA [id number] [address] Differential cell count method Nom (Bld) Manual Normal [facility] Comment on above: Order Comment: Speci men Type: BLOOD SPECIMENOrdering Facility: [facility] Address: [address] [place] [address] Performed By: #### 5 7021-8 ####[facility] LABORATORYCLIA [id number] [place] [address] [place] Eosinophils (Bld) [#/Vol] 0.00 10*3/uL Normal <0.46 [facility] Comment on above: Order Comment: Speci men Type: BLOOD SPECIMENOrdering Facility: [facility] Address: [address] [place] [address] Performed By: #### 5 7021-8 ####[facility] LABORATORYCLIA [id number] [address] [place] Eosinophils/100 WBC (Bld) 0.0 % Normal [facility] Comment on above: Order Comment: Speci men Type: BLOOD SPECIMENOrdering Facility: [facility] Address: [address] [place] [address] Performed By: #### 5 7021-8 ####[facility] LABORATORYCLIA [id number] [place] [address] [place] Erythrocyte distribution width (RBC) [Ratio] 18.2 % High 11.5-15.0 [facility] Comment on above: Order Comment: Speci men Type: BLOOD SPECIMENOrdering Facility: [facility] Address: [address] [place] [address] Performed By: #### 5 7021-8 ####[facility] LABORATORYCLIA [id number] [address] [place] Hematocrit (Bld) [Volume fraction] 21.3 % Low 39.0-51.0 [facility] Comment on above: Order Comment: Speci men Type: BLOOD SPECIMENOrdering Facility: [facility] Address: [address] [place] [address] Performed By: #### 5 7021-8 ####[facility] LABORATORYCLIA [id number] [place] [address] [place] Hemoglobin (Bld) [Mass/Vol] 7.0 g/dL Low 13.0-17.0 [facility] Comment on above: Order Comment: Speci men Type: BLOOD SPECIMENOrdering Facility: [facility] Address: [address] [place] [address] Performed By: #### 5 7021-8 ####[facility] LABORATORYCLIA [id number] [place] [address] [place] Lymphocytes (Bld) [#/Vol] 1.31 10*3/uL Normal 1.00-4.00 [facility] Comment on above: Order Comment: Speci men Type: BLOOD SPECIMENOrdering Facility: [facility] Address: [address] [place] [address] Performed By: #### 5 7021-8 ####[facility] LABORATORYCLIA [id number] [address] [place] Lymphocytes/100 WBC (Bld) 11.0 % Normal [facility] Comment on above: Order Comment: Speci men Type: BLOOD SPECIMENOrdering Facility: [facility] Address: [address] [place] [address] Performed By: #### 5 7021-8 ####[facility] LABORATORYCLIA [id number] [place] [address] [place] MCH (RBC) [Entitic mass] 31.0 pg Normal 26.0-34.0 [facility] Comment on above: Order Comment: Speci men Type: BLOOD SPECIMENOrdering Facility: [facility] Address: [address] [place] [address] Performed By: #### 5 7021-8 ####[facility] LABORATORYCLIA [id number] [address] STATES OF [facility] MCHC (RBC) [Mass/Vol] 32.9 g/dL Normal 30.5-36.0 [facility] Comment on above: Order Comment: Speci men Type: BLOOD SPECIMENOrdering Facility: [facility] Address: [address] [place] [address] Performed By: #### 5 7021-8 ####[facility] LABORATORYCLIA [id number] [place] [address] [place] MCV (RBC) [Entitic vol] 94.2 fL Normal 80.0-100.0 [facility] Comment on above: Order Comment: Speci men Type: BLOOD SPECIMENOrdering Facility: [facility] Address: [address] [place] [address] Performed By: #### 5 7021-8 ####[facility] LABORATORYCLIA [id number] [address] Metamyelocytes/100 WBC (Bld) 6.0 % Normal [facility] Comment on above: Order Comment: Speci men Type: BLOOD SPECIMENOrdering Facility: [facility] Address: [address] [place] [address] Performed By: #### 5 7021-8 ####[facility] LABORATORYCLIA [id number] [place] [id number] [place] Monocytes (Bld) [#/Vol] 0.96 10*3/uL High <0.87 [facility] Comment on above: Order Comment: Speci men Type: BLOOD SPECIMENOrdering Facility: [facility] Address: [address] [place] [address] Performed By: #### 5 7021-8 ####[facility] LABORATORYCLIA [id number] [place] [address] [place] Monocytes/100 WBC (Bld) 8.0 % Normal [facility] Comment on above: Order Comment: Speci men Type: BLOOD SPECIMENOrdering Facility: [facility] Address: [address] [place] [address] Performed By: #### 5 7021-8 ####[facility] LABORATORYCLIA [id number] [place] [address] [place] Neutrophils (Bld) [#/Vol] 8.96 10*3/uL High 1.45-7.50 [facility] Comment on above: Order Comment: Speci men Type: BLOOD SPECIMENOrdering Facility: [facility] Address: [address] [place] [address] Performed By: #### 5 7021-8 ####[facility] LABORATORYCLIA [id number] [place] [address] [place] Neutrophils/100 WBC (Bld) 75.0 % Normal [facility] Comment on above: Order Comment: Speci men Type: BLOOD SPECIMENOrdering Facility: [facility] Address: [address] [place] [address] Performed By: #### 5 7021-8 ####[facility] LABORATORYCLIA [id number] [place] [id number] [place] Nucleated RBC (Bld) [#/Vol] 10*3/uL Normal <0.01 [facility] Comment on above: Order Comment: Speci men Type: BLOOD SPECIMENOrdering Facility: [facility] Address: [address] [place] [address] Performed By: #### 5 7021-8 ####[facility] LABORATORYCLIA [id number] [place] [id number] [employer] [place] Nucleated RBC/100 WBC (Bld) [Ratio] 0.0 /100 WBC Normal [facility] Comment on above: Order Comment: Speci men Type: BLOOD SPECIMENOrdering Facility: [facility] Address: [address] [place] [address] Performed By: #### 5 7021-8 ####[facility] LABORATORYCLIA [id number] [place] [address] [place] Platelet mean volume (Bld) [Entitic vol] 10.6 fL Normal 9.0-12.7 [facility] Comment on above: Order Comment: Speci men Type: BLOOD SPECIMENOrdering Facility: [facility] Address: [address] [place] [address] Performed By: #### 5 7021-8 ####[facility] LABORATORYCLIA [id number] [place] [address] [place] Platelets (Bld) [#/Vol] 107 10*3/uL Low 150-400 [facility] Comment on above: Order Comment: Speci men Type: BLOOD SPECIMENOrdering Facility: [facility] Address: [address] [place] [address] Performed By: #### 5 7021-8 ####[facility] LABORATORYCLIA [id number] [place] [address] [place] Platelets Estimate (Bld) [#/Vol] Decreased Normal [facility] Comment on above: Order Comment: Speci men Type: BLOOD SPECIMENOrdering Facility: [facility] Address: [address] [place] [address] Performed By: #### 5 7021-8 ####[facility] LABORATORYCLIA [id number] [place] [address] [place] Polychromasia LM Ql (Bld) Slight Normal [facility] Comment on above: Order Comment: Speci men Type: BLOOD SPECIMENOrdering Facility: [facility] Address: [address] [place] [address] Performed By: #### 5 7021-8 ####[facility] LABORATORYCLIA [id number] [place] [address] [place] RBC (Bld) [#/Vol] 2.26 10*6/uL Low 4.20-6.00 [facility] Comment on above: Order Comment: Speci men Type: BLOOD SPECIMENOrdering Facility: [facility] Address: [address] [place] [address] Performed By: #### 5 7021-8 ####[facility] LABORATORYCLIA [id number] [address] [place] RED CELL MORPH Reviewed: see result s of individual morphologies Normal [facility] Comment on above: Order Comment: Speci men Type: BLOOD SPECIMENOrdering Facility: [facility] Address: [address] [place] [address] Performed By: #### 5 7021-8 ####[facility] LABORATORYCLIA [id number] [address] [place] WBC (Bld) [#/Vol] 11.95 10*3/uL High 3.70-11.00 [facility] Comment on above: Order Comment: Speci men Type: BLOOD SPECIMENOrdering Facility: [facility] Address: [address] [place] [address] Performed By: #### 5 7021-8 ####[facility] LABORATORYCLIA [id number] [place] [address] [place] Acanthocytes LM Ql (Bld) Moderate Normal [facility] Comment on above: Order Comment: Speci men Type: BLOOD SPECIMENOrdering Facility: [facility] Address: [address] [place] [address] Performed By: #### 5 7021-8 ####[facility] LABORATORYCLIA [id number] [place] [address] [place] Band form neutrophils/100 WBC (Bld) 2.0 % Normal [facility] Comment on above: Order Comment: Speci men Type: BLOOD SPECIMENOrdering Facility: [facility] Address: [address] [place] [address] Performed By: #### 5 7021-8 ####[facility] LABORATORYCLIA [id number] [place] [address] [place] Basophils (Bld) [#/Vol] 0.00 10*3/uL Normal <0.11 [facility] Comment on above: Order Comment: Speci men Type: BLOOD SPECIMENOrdering Facility: [facility] Address: [address] [place] [address] Performed By: #### 5 7021-8 ####[facility] LABORATORYCLIA [id number] [place] [address] [place] Basophils/100 WBC (Bld) 0.0 % Normal [facility] Comment on above: Order Comment: Speci men Type: BLOOD SPECIMENOrdering Facility: [facility] Address: [address] [place] [address] Performed By: #### 5 7021-8 ####[facility] LABORATORYCLIA [id number] [place] [address] [place] Differential cell count method Nom (Bld) Manual Normal [facility] Comment on above: Order Comment: Speci men Type: BLOOD SPECIMENOrdering Facility: [facility] Address: [address] [place] [address] Performed By: #### 5 7021-8 ####[facility] LABORATORYCLIA [id number] [place] [address] [place] Eosinophils (Bld) [#/Vol] 0.00 10*3/uL Normal <0.46 [facility] Comment on above: Order Comment: Speci men Type: BLOOD SPECIMENOrdering Facility: [facility] Address: [address] [place] [address] Performed By: #### 5 7021-8 ####[facility] LABORATORYCLIA [id number] [place] [id number] [place] Eosinophils/100 WBC (Bld) 0.0 % Normal [facility] Comment on above: Order Comment: Speci men Type: BLOOD SPECIMENOrdering Facility: [facility] Address: [address] [place] [address] Performed By: #### 5 7021-8 ####[facility] LABORATORYCLIA [id number] [place] [address] [place] Erythrocyte distribution width (RBC) [Ratio] 18.0 % High 11.5-15.0 [facility] Comment on above: Order Comment: Speci men Type: BLOOD SPECIMENOrdering Facility: [facility] Address: [address] [place] [address] Performed By: #### 5 7021-8 ####[facility] LABORATORYCLIA [id number] [address] [place] Hematocrit (Bld) [Volume fraction] 22.2 % Low 39.0-51.0 [facility] Comment on above: Order Comment: Speci men Type: BLOOD SPECIMENOrdering Facility: [facility] Address: [address] [place] [address] Performed By: #### 5 7021-8 ####[facility] LABORATORYCLIA [id number] [place] [address] [place] Hemoglobin (Bld) [Mass/Vol] 7.5 g/dL Low 13.0-17.0 [facility] Comment on above: Order Comment: Speci men Type: BLOOD SPECIMENOrdering Facility: [facility] Address: [address] [place] [address] Performed By: #### 5 7021-8 ####[facility] LABORATORYCLIA [id number] [place] [address] [place] Lymphocytes (Bld) [#/Vol] 0.52 10*3/uL Low 1.00-4.00 [facility] Comment on above: Order Comment: Speci men Type: BLOOD SPECIMENOrdering Facility: [facility] Address: [address] [place] [address] Performed By: #### 5 7021-8 ####[facility] LABORATORYCLIA [id number] [place] [address] [place] Lymphocytes/100 WBC (Bld) 4.0 % Normal [facility] Comment on above: Order Comment: Speci men Type: BLOOD SPECIMENOrdering Facility: [facility] Address: [address] [place] [address] Performed By: #### 5 7021-8 ####[facility] LABORATORYCLIA [id number] [place] [address] [place] MCH (RBC) [Entitic mass] 31.6 pg Normal 26.0-34.0 [facility] Comment on above: Order Comment: Speci men Type: BLOOD SPECIMENOrdering Facility: [facility] Address: [address] [place] [address] Performed By: #### 5 7021-8 ####[facility] LABORATORYCLIA [id number] [address] [place] MCHC (RBC) [Mass/Vol] 33.8 g/dL Normal 30.5-36.0 [facility] Comment on above: Order Comment: Speci men Type: BLOOD SPECIMENOrdering Facility: [facility] Address: [address] [place] [address] Performed By: #### 5 7021-8 ####[facility] LABORATORYCLIA [id number] [place] [address] [place] MCV (RBC) [Entitic vol] 93.7 fL Normal 80.0-100.0 [facility] Comment on above: Order Comment: Speci men Type: BLOOD SPECIMENOrdering Facility: [facility] Address: [address] [place] [address] Performed By: #### 5 7021-8 ####[facility] LABORATORYCLIA [id number] [place] [address] [place] Metamyelocytes/100 WBC (Bld) 3.0 % Normal [facility] Comment on above: Order Comment: Speci men Type: BLOOD SPECIMENOrdering Facility: [facility] Address: [address] [place] [address] Performed By: #### 5 7021-8 ####[facility] LABORATORYCLIA [id number] [place] [id number] [place] Monocytes (Bld) [#/Vol] 1.31 10*3/uL High <0.87 [facility] Comment on above: Order Comment: Speci men Type: BLOOD SPECIMENOrdering Facility: [facility] Address: [address] [place] [address] Performed By: #### 5 7021-8 ####[facility] LABORATORYCLIA [id number] [place] [address] [place] Monocytes/100 WBC (Bld) 10.0 % Normal [facility] Comment on above: Order Comment: Speci men Type: BLOOD SPECIMENOrdering Facility: [facility] Address: [address] [place] [address] Performed By: #### 5 7021-8 ####[facility] LABORATORYCLIA [id number] [place] [address] [place] Neutrophils (Bld) [#/Vol] 10.84 10*3/uL High 1.45-7.50 [facility] Comment on above: Order Comment: Speci men Type: BLOOD SPECIMENOrdering Facility: [facility] Address: [address] [place] [address] Performed By: #### 5 7021-8 ####[facility] LABORATORYCLIA [id number] [place] [address] [place] Neutrophils/100 WBC (Bld) 81.0 % Normal [facility] Comment on above: Order Comment: Speci men Type: BLOOD SPECIMENOrdering Facility: [facility] Address: [address] [place] [address] Performed By: #### 5 7021-8 ####[facility] LABORATORYCLIA [id number] [place] [address] [place] Nucleated RBC (Bld) [#/Vol] 0.26 10*3/uL High <0.01 [facility] Comment on above: Order Comment: Speci men Type: BLOOD SPECIMENOrdering Facility: [facility] Address: [address] [place] [address] Performed By: #### 5 7021-8 ####[facility] LABORATORYCLIA [id number] [place] [address] [place] Nucleated RBC/100 WBC (Bld) [Ratio] 2.0 /100 WBC Normal [facility] Comment on above: Order Comment: Speci men Type: BLOOD SPECIMENOrdering Facility: [facility] Address: [address] [place] [address] Performed By: #### 5 7021-8 ####[facility] LABORATORYCLIA [id number] [place] [address] [place] Platelet mean volume (Bld) [Entitic vol] 11.5 fL Normal 9.0-12.7 [facility] Comment on above: Order Comment: Speci men Type: BLOOD SPECIMENOrdering Facility: [facility] Address: [address] [place] [address] Performed By: #### 5 7021-8 ####[facility] LABORATORYCLIA [id number] [place] [address] [place] Platelets (Bld) [#/Vol] 103 10*3/uL Low 150-400 [facility] Comment on above: Order Comment: Speci men Type: BLOOD SPECIMENOrdering Facility: [facility] Address: [address] [place] [address] Result Comment: No c lot detected. Performed By: #### 5 7021-8 ####[facility] LABORATORYCLIA [id number] [place] [address] [place] Platelets Estimate (Bld) [#/Vol] Decreased Normal [facility] Comment on above: Order Comment: Speci men Type: BLOOD SPECIMENOrdering Facility: [facility] Address: [address] [place], [place] [address], [place] [address] Performed By: #### 5 7021-8 ####[facility] LABORATORYCLIA [id number] [address] [place] RBC (Bld) [#/Vol] 2.37 10*6/uL Low 4.20-6.00 [facility] Comment on above: Order Comment: Speci men Type: BLOOD SPECIMENOrdering Facility: [facility] Address: [address] [place] [address] [place] [address] Performed By: #### 5 7021-8 ####[facility] LABORATORYCLIA [id number] [place] [address] [place] RED CELL MORPH Reviewed: see result s of individual morphologies Normal [facility] Comment on above: Order Comment: Speci men Type: BLOOD SPECIMENOrdering Facility: [facility] Address: [address] [place] [address] Performed By: #### 5 7021-8 ####[facility] LABORATORYCLIA [id number] [address] [place] WBC (Bld) [#/Vol] 13.06 10*3/uL High 3.70-11.00 [facility] Comment on above: Order Comment: Speci men Type: BLOOD SPECIMENOrdering Facility: [facility] Address: [facility] [place] [place] [address] Performed By: #### 5 7021-8 ####[facility] LABORATORYCLIA [id number] [address] STATES [facility] Band form neutrophils/100 WBC (Bld) 3.0 % Normal [facility] Comment on above: Order Comment: Speci men Type: BLOOD SPECIMENOrdering Facility: [facility] Address: [facility] [place] [address] Performed By: #### 5 7021-8 ####[facility] LABORATORYCLIA [id number] [address] [place] Basophilic stippling LM Ql (Bld) Occasional Normal [facility] Comment on above: Order Comment: Speci men Type: BLOOD SPECIMENOrdering Facility: [facility] Address: [address] [place] [address] Performed By: #### 5 7021-8 ####[facility] LABORATORYCLIA [id number] [place] [address] [place] Basophils (Bld) [#/Vol] 0.00 10*3/uL Normal <0.11 [facility] Comment on above: Order Comment: Speci men Type: BLOOD SPECIMENOrdering Facility: [facility] Address: [address] [place] [address] Performed By: #### 5 7021-8 ####[facility] LABORATORYCLIA [id number] [address] [place] Basophils/100 WBC (Bld) 0.0 % Normal [facility] Comment on above: Order Comment: Speci men Type: BLOOD SPECIMENOrdering Facility: [facility] Address: [address] [place] [address] Performed By: #### 5 7021-8 ####[facility] LABORATORYCLIA [id number] [place] [address] [place] Differential cell count method Nom (Bld) Manual Normal [facility] Comment on above: Order Comment: Speci men Type: BLOOD SPECIMENOrdering Facility: [facility] Address: [address] [place] [address] Performed By: #### 5 7021-8 ####[facility] LABORATORYCLIA [id number] [place] [address] [place] Eosinophils (Bld) [#/Vol] 0.00 10*3/uL Normal <0.46 [facility] Comment on above: Order Comment: Speci men Type: BLOOD SPECIMENOrdering Facility: [facility] Address: [address] [place] [address] Performed By: #### 5 7021-8 ####[facility] LABORATORYCLIA [id number] [place] [address] [place] Eosinophils/100 WBC (Bld) 0.0 % Normal [facility] Comment on above: Order Comment: Speci men Type: BLOOD SPECIMENOrdering Facility: [facility] Address: [address] [place] [address] Performed By: #### 5 7021-8 ####[facility] LABORATORYCLIA [id number] [address] [place] Erythrocyte distribution width (RBC) [Ratio] 17.0 % High 11.5-15.0 [facility] Comment on above: Order Comment: Speci men Type: BLOOD SPECIMENOrdering Facility: [facility] Address: [address] [place] [address] Performed By: #### 5 7021-8 ####[facility] LABORATORYCLIA [id number] [address] [place] Hematocrit (Bld) [Volume fraction] 20.3 % Low 39.0-51.0 [facility] Comment on above: Order Comment: Speci men Type: BLOOD SPECIMENOrdering Facility: [facility] Address: [address] [place] [address] Performed By: #### 5 7021-8 ####[facility] LABORATORYCLIA [id number] [place] [address] [place] Hemoglobin (Bld) [Mass/Vol] 6.7 g/dL Low 13.0-17.0 [facility] Comment on above: Order Comment: Speci men Type: BLOOD SPECIMENOrdering Facility: [facility] Address: [address] [place] [address] Performed By: #### 5 7021-8 ####[facility] LABORATORYCLIA [id number] [place] [id number] [place] Lymphocytes (Bld) [#/Vol] 1.68 10*3/uL Normal 1.00-4.00 [facility] Comment on above: Order Comment: Speci men Type: BLOOD SPECIMENOrdering Facility: [facility] Address: [address] [place] [address] Performed By: #### 5 7021-8 ####[facility] LABORATORYCLIA [id number] [address] [place] Lymphocytes/100 WBC (Bld) 14.0 % Normal [facility] Comment on above: Order Comment: Speci men Type: BLOOD SPECIMENOrdering Facility: [facility] Address: [address] [place] [address] Performed By: #### 5 7021-8 ####[facility] LABORATORYCLIA [id number] [place] [address] [place] MCH (RBC) [Entitic mass] 31.6 pg Normal 26.0-34.0 [facility] Comment on above: Order Comment: Speci men Type: BLOOD SPECIMENOrdering Facility: [facility] Address: [address] [place] [address] Performed By: #### 5 7021-8 ####[facility] LABORATORYCLIA [id number] [address] [place] MCHC (RBC) [Mass/Vol] 33.0 g/dL Normal 30.5-36.0 [facility] Comment on above: Order Comment: Speci men Type: BLOOD SPECIMENOrdering Facility: [facility] Address: [address] [place] [address] Performed By: #### 5 7021-8 ####[facility] LABORATORYCLIA [id number] [place] [address] [place] MCV (RBC) [Entitic vol] 95.8 fL Normal 80.0-100.0 [facility] Comment on above: Order Comment: Speci men Type: BLOOD SPECIMENOrdering Facility: [facility] Address: [address] [place] [address] Performed By: #### 5 7021-8 ####[facility] LABORATORYCLIA [id number] [address] Metamyelocytes/100 WBC (Bld) 2.0 % Normal [facility] Comment on above: Order Comment: Speci men Type: BLOOD SPECIMENOrdering Facility: [facility] Address: [address] [place], [place] [id number] Performed By: #### 5 7021-8 ####[facility] LABORATORYCLIA [id number] [place] [id number] [place] Monocytes (Bld) [#/Vol] 1.08 10*3/uL High <0.87 [facility] Comment on above: Order Comment: Speci men Type: BLOOD SPECIMENOrdering Facility: [facility] Address: [address] [place] [address] Performed By: #### 5 7021-8 ####[facility] LABORATORYCLIA [id number] [place] [address] [place] Monocytes/100 WBC (Bld) 9.0 % Normal [facility] Comment on above: Order Comment: Speci men Type: BLOOD SPECIMENOrdering Facility: [facility] Address: [address] [place] [address] Performed By: #### 5 7021-8 ####[facility] LABORATORYCLIA [id number] [place] [address] [place] MYELO% 5.0 % Normal [facility] Comment on above: Order Comment: Speci men Type: BLOOD SPECIMENOrdering Facility: [facility] Address: [address] [place] [address] Performed By: #### 5 7021-8 ####[facility] LABORATORYCLIA [id number] [place] [id number] [place] Neutrophils (Bld) [#/Vol] 8.39 10*3/uL High 1.45-7.50 [facility] Comment on above: Order Comment: Speci men Type: BLOOD SPECIMENOrdering Facility: [facility] Address: [address] [place] [address] Performed By: #### 5 7021-8 ####[facility] LABORATORYCLIA [id number] [place] [id number] [place] Neutrophils/100 WBC (Bld) 67.0 % Normal [facility] Comment on above: Order Comment: Speci men Type: BLOOD SPECIMENOrdering Facility: [facility] Address: [address] [place] [address] Performed By: #### 5 7021-8 ####[facility] LABORATORYCLIA [id number] [place] [address] [place] Nucleated RBC (Bld) [#/Vol] 0.24 10*3/uL High <0.01 [facility] Comment on above: Order Comment: Speci men Type: BLOOD SPECIMENOrdering Facility: [facility] Address: [address] [place] [address] Performed By: #### 5 7021-8 ####[facility] LABORATORYCLIA [id number] [address] [place] Nucleated RBC/100 WBC (Bld) [Ratio] 2.0 /100 WBC Normal [facility] Comment on above: Order Comment: Speci men Type: BLOOD SPECIMENOrdering Facility: [facility] Address: [address] [place] [address] Performed By: #### 5 7021-8 ####[facility] LABORATORYCLIA [id number] [place] [address] [place] Ovalocytes LM Ql (Bld) Few Normal [facility] Comment on above: Order Comment: Speci men Type: BLOOD SPECIMENOrdering Facility: [facility] Address: [address] [place] [address] Performed By: #### 5 7021-8 ####[facility] LABORATORYCLIA [id number] [place] [address] [place] Platelet mean volume (Bld) [Entitic vol] 10.8 fL Normal 9.0-12.7 [facility] Comment on above: Order Comment: Speci men Type: BLOOD SPECIMENOrdering Facility: [facility] Address: [address] [place] [address] Performed By: #### 5 7021-8 ####[facility] LABORATORYCLIA [id number] [place] [address] [place] Platelets (Bld) [#/Vol] 104 10*3/uL Low 150-400 [facility] Comment on above: Order Comment: Speci men Type: BLOOD SPECIMENOrdering Facility: [facility] Address: [address] [place] [address] Performed By: #### 5 7021-8 ####[facility] LABORATORYCLIA [id number] [address] [place] Platelets Estimate (Bld) [#/Vol] Decreased Normal [facility] Comment on above: Order Comment: Speci men Type: BLOOD SPECIMENOrdering Facility: [facility] Address: [address] [place] [address] Performed By: #### 5 7021-8 ####[facility] LABORATORYCLIA [id number] [address] STATES [facility] Polychromasia LM Ql (Bld) Slight Normal [facility] Comment on above: Order Comment: Speci men Type: BLOOD SPECIMENOrdering Facility: [facility] Address: [address] [place] [address] Performed By: #### 5 7021-8 ####[facility] LABORATORYCLIA [id number] [address] [place] RBC (Bld) [#/Vol] 2.12 10*6/uL Low 4.20-6.00 [facility] Comment on above: Order Comment: Speci men Type: BLOOD SPECIMENOrdering Facility: [facility] Address: [address] [place] [address] Performed By: #### 5 7021-8 ####[facility] LABORATORYCLIA [id number] [address] STATES [facility] RED CELL MORPH Reviewed: see result s of individual morphologies Normal [facility] Comment on above: Order Comment: Speci men Type: BLOOD SPECIMENOrdering Facility: [facility] Address: [address] [place] [address] Performed By: #### 5 7021-8 ####[facility] LABORATORYCLIA [id number] [place] [address] [place] [facility] [place] WBC (Bld) [#/Vol] 11.98 10*3/uL High 3.70-11.00 [facility] Comment on above: Order Comment: Speci men Type: BLOOD SPECIMENOrdering Facility: [facility] Address: [address] [place] [address] Performed By: #### 5 7021-8 ####[facility] LABORATORYCLIA [id number] [place] [id number] [place] CONSULTon 10-30-2023 CONSULT Normal [facility] CONSULT PROGon 10-30-2023 CONSULT PROG Normal [facility] Hepatic function 2000 panelo n 10-30-2023 Albumin [Mass/Vol] 1.6 g/dL Low 3.2-5.0 [facility] Comment on above: Order Comment: Sydnii men Type: BLOOD SPECIMENOrdering Facility: [facility] Address: [address] [place] [address] Performed By: #### 2 4325-3 ####[facility] LABORATORYCLIA [id number] [place] [address] [place] ALP [Catalytic activity/Vol] 68 U/L Normal 45-117 [facility] Comment on above: Order Comment: Sydnii men Type: BLOOD SPECIMENOrdering Facility: [facility] Address: [address] [place] [address] Performed By: #### 2 4325-3 ####[facility] LABORATORYCLIA [id number] [place] [address] [place] ALT [Catalytic activity/Vol] 211 U/L High 13-61 [facility] Comment on above: Order Comment: Speci men Type: BLOOD SPECIMENOrdering Facility: [facility] Address: [address] [place] [address] Result Comment: Resu lts may be falsely depressed after the administration of Sulfasalazine and/or Sulfapyridine. Performed By: #### 2 4325-3 ####[facility] LABORATORYCLIA [id number] [place] [id number] [place] AST [Catalytic activity/Vol] 111 U/L High 8-34 [facility] Comment on above: Order Comment: Speci men Type: BLOOD SPECIMENOrdering Facility: [facility] Address: [address] [place] [address] Result Comment: Resu lts may be falsely depressed after the administration of Sulfasalazine and/or Sulfapyridine. Performed By: #### 2 4325-3 ####[facility] LABORATORYCLIA [id number] [address] [place] Bilirubin [Mass/Vol] 0.6 mg/dL Normal 0.2-1.0 [facility] Comment on above: Order Comment: Speci men Type: BLOOD SPECIMENOrdering Facility: [facility] Address: [address] [place] [address] Performed By: #### 2 4325-3 ####[facility] LABORATORYCLIA [id number] [address] Bilirubin.conjugated [Mass/Vol] 0.4 mg/dL Normal 0.0-0.4 [facility] Comment on above: Order Comment: Speci men Type: BLOOD SPECIMENOrdering Facility: [facility] Address: [address] [place] [address] Performed By: #### 2 4325-3 ####[facility] LABORATORYCLIA [id number] [address] [place] Protein [Mass/Vol] 3.8 g/dL Low 6.0-8.5 [facility] Comment on above: Order Comment: Speci men Type: BLOOD SPECIMENOrdering Facility: [facility] Address: [address] [place] [address] Performed By: #### 2 4325-3 ####[facility] LABORATORYCLIA [id number] [place] [id number] [place] MEDICAL EMERon 10-30-2023 MEDICAL ROSIBEL Normal [facility] ANES POSTPROC EVALon 024 ANES POSTPROC EVAL Normal [facility] ANES POSTPROC EVAL Normal [facility] ANES PRE-OPon 10-29-2023 ANES PRE-OP Normal [facility] ANES PRE-OP Normal [facility] ANES PRE-OP Normal [facility] BRIEF OP NOTon 10-29-2023 BRIEF OP NOT Normal [facility] Basic metabolic 2000 panelon 10-29-2023 Anion gap [Moles/Vol] 7 mmol/L Normal 5-16 [facility] Comment on above: Order Comment: Speci men Type: BLOOD SPECIMENOrdering Facility: [facility] Address: [address] [place] [address] Performed By: #### 2 4321-2 ####[facility] LABORATORYCLIA [id number] [place] [address] [place] Calcium [Mass/Vol] 7.3 mg/dL Low 8.5-10.5 [facility] Comment on above: Order Comment: Speci men Type: BLOOD SPECIMENOrdering Facility: [facility] Address: [address] [place] [address] Performed By: #### 2 4321-2 ####[facility] LABORATORYCLIA [id number] [place] [address] [place] Chloride [Moles/Vol] 112 mmol/L High 98-107 [facility] Comment on above: Order Comment: Speci men Type: BLOOD SPECIMENOrdering Facility: [facility] Address: [address] [place] [address] Performed By: #### 2 4321-2 ####[facility] LABORATORYCLIA [id number] [place] [address] [place] CO2 [Moles/Vol] 22 mmol/L Normal 21-32 [facility] Comment on above: Order Comment: Speci men Type: BLOOD SPECIMENOrdering Facility: [facility] Address: [address] [place] [address] Performed By: #### 2 4321-2 ####[facility] LABORATORYCLIA [id number] [place] [id number] [place] Creatinine [Mass/Vol] 3.89 mg/dL High 0.50-1.40 [facility] Comment on above: Order Comment: Speci men Type: BLOOD SPECIMENOrdering Facility: [facility] Address: [address] [place] [id number] Result Comment: Raquel ents receiving either N-Acetylcysteine (NAC) or Metamizole prior to venipuncture, may have falsely depressed results. Performed By: #### 2 4321-2 ####[facility] LABORATORYCLIA [id number] [place] [address] [place] Creatinine and Glomerular filtration rate.predicted panel (S/P/Bld) 16 mL/min/1.73m??? Low >=60 [facility] Comment on above: Order Comment: Elizabeth riggs Type: BLOOD SPECIMENOrdering Facility: [facility] Address: [address] [place] [address] Result Comment: More mated Glomerular Filtration Rate (eGFR) is calculated using the 2020 CKD-EPI creatinine equation. This equation utilizes serum creatinine, sex, and age as parameters. The creatinine assay has traceable calibration to isotope dilution-mass spectrometry. Refer to KDIGO guidelines for clinical interpretation. In patients with unstable renal function, e.g. those with acute kidney injury, the eGFR may not accurately reflect actual GFR. Performed By: #### 2 4321-2 ####[facility] LABORATORYCLIA [id number] [place] [address] [place] Glucose [Mass/Vol] 159 mg/dL High 70-100 [facility] Comment on above: Order Comment: Elizabeth riggs Type: BLOOD SPECIMENOrdering Facility: [facility] Address: [address] [place] [address] Result Comment: The [place] [employer] (ADA) provides guidance for cutoff values for fasting glucose and random glucose. The ADA defines fasting as no caloric intake for at least 8 hours. Fasting plasma glucose results between 100 to 125 mg/dL indicate increased risk for diabetes (prediabetes).Fasting plasma glucose results greater than or equal to 126 mg/dL meet the criteria for diagnosis of diabetes. In the absence of unequivocal hyperglycemia, results should be confirmed by repeat testing. In a patient with classic symptoms of hyperglycemia or hyperglycemic crisis, random plasma glucose results greater than or equal to 200 mg/dL meet the criteria for diagnosis of diabetes.Reference: Standards of Medical Care in Diabetes 2016, [place] [employer]. Diabetes Care. 2016.39(Suppl 1).Results may be falsely elevated after the administration of Sulfapyridine.Results may be falsely depressed after the administration of Sulfasalazine. Performed By: #### 2 4321-2 ####[facility] LABORATORYCLIA [id number] [place] [address] [place] Potassium [Moles/Vol] 4.3 mmol/L Normal 3.5-5.1 [facility] Comment on above: Order Comment: Speci men Type: BLOOD SPECIMENOrdering Facility: [facility] Address: [address] [place] [address] Performed By: #### 2 4321-2 ####[facility] LABORATORYCLIA [id number] [address] [place] Sodium [Moles/Vol] 141 mmol/L Normal 136-145 [facility] Comment on above: Order Comment: Speci men Type: BLOOD SPECIMENOrdering Facility: [facility] Address: [address] [place] [address] Performed By: #### 2 4321-2 ####[facility] LABORATORYCLIA [id number] [place] [address] [place] Urea nitrogen [Mass/Vol] 141 mg/dL High 7-26 [facility] Comment on above: Order Comment: Speci men Type: BLOOD SPECIMENOrdering Facility: [facility] Address: [address] [place] [address] Performed By: #### 2 4321-2 ####[facility] LABORATORYCLIA [id number] [place] [id number] [place] CASE MANAGEMon 10-29-2023 CASE MANAGEM Normal [facility] CBC W Auto Differential pane l (Bld)on 10-29-2023 Band form neutrophils/100 WBC (Bld) 1.0 % Normal [facility] Comment on above: Order Comment: Speci men Type: BLOOD SPECIMENOrdering Facility: [facility] Address: [address] [place] [address] Performed By: #### 5 7021-8 ####[facility] LABORATORYCLIA [id number] [place] [address] [place] Basophilic stippling LM Ql (Bld) Occasional Normal [facility] Comment on above: Order Comment: Speci men Type: BLOOD SPECIMENOrdering Facility: [facility] Address: [address] [place] [address] Performed By: #### 5 7021-8 ####[facility] LABORATORYCLIA [id number] [place] [address] [place] Basophils (Bld) [#/Vol] 0.00 10*3/uL Normal <0.11 [facility] Comment on above: Order Comment: Speci men Type: BLOOD SPECIMENOrdering Facility: [facility] Address: [address] [place] [address] Performed By: #### 5 7021-8 ####[facility] LABORATORYCLIA [id number] [place] [address] [place] Basophils/100 WBC (Bld) 0.0 % Normal [facility] Comment on above: Order Comment: Speci men Type: BLOOD SPECIMENOrdering Facility: [facility] Address: [address] [place] [address] Performed By: #### 5 7021-8 ####[facility] LABORATORYCLIA [id number] [place] [address] [place] Differential cell count method Nom (Bld) Manual Normal [facility] Comment on above: Order Comment: Speci men Type: BLOOD SPECIMENOrdering Facility: [facility] Address: [address] [place] [address] Performed By: #### 5 7021-8 ####[facility] LABORATORYCLIA [id number] [place] [address] [place] Eosinophils (Bld) [#/Vol] 0.00 10*3/uL Normal <0.46 [facility] Comment on above: Order Comment: Speci men Type: BLOOD SPECIMENOrdering Facility: [facility] Address: [address] [place] [address] Performed By: #### 5 7021-8 ####[facility] LABORATORYCLIA [id number] [place] [id number] [place] Eosinophils/100 WBC (Bld) 0.0 % Normal [facility] Comment on above: Order Comment: Speci men Type: BLOOD SPECIMENOrdering Facility: [facility] Address: [address] [place] [address] Performed By: #### 5 7021-8 ####[facility] LABORATORYCLIA [id number] [place] [address] [place] Erythrocyte distribution width (RBC) [Ratio] 17.1 % High 11.5-15.0 [facility] Comment on above: Order Comment: Speci men Type: BLOOD SPECIMENOrdering Facility: [facility] Address: [address] [place] [address] Performed By: #### 5 7021-8 ####[facility] LABORATORYCLIA [id number] [address] [place] Hematocrit (Bld) [Volume fraction] 22.2 % Low 39.0-51.0 [facility] Comment on above: Order Comment: Speci men Type: BLOOD SPECIMENOrdering Facility: [facility] Address: [address] [place] [address] Performed By: #### 5 7021-8 ####[facility] LABORATORYCLIA [id number] [place] [address] [place] Hemoglobin (Bld) [Mass/Vol] 7.3 g/dL Low 13.0-17.0 [facility] Comment on above: Order Comment: Speci men Type: BLOOD SPECIMENOrdering Facility: [facility] Address: [address] [place] [address] Performed By: #### 5 7021-8 ####[facility] LABORATORYCLIA [id number] [place] [address] [place] Lymphocytes (Bld) [#/Vol] 0.53 10*3/uL Low 1.00-4.00 [facility] Comment on above: Order Comment: Speci men Type: BLOOD SPECIMENOrdering Facility: [facility] Address: [address] [place] [address] Performed By: #### 5 7021-8 ####[facility] LABORATORYCLIA [id number] [address] [place] Lymphocytes/100 WBC (Bld) 4.0 % Normal [facility] Comment on above: Order Comment: Speci men Type: BLOOD SPECIMENOrdering Facility: [facility] Address: [address] [place] [address] Performed By: #### 5 7021-8 ####[facility] LABORATORYCLIA [id number] [place] [address] [place] MCH (RBC) [Entitic mass] 31.3 pg Normal 26.0-34.0 [facility] Comment on above: Order Comment: Speci men Type: BLOOD SPECIMENOrdering Facility: [facility] Address: [address] [place] [address] Performed By: #### 5 7021-8 ####[facility] LABORATORYCLIA [id number] [address] [place] MCHC (RBC) [Mass/Vol] 32.9 g/dL Normal 30.5-36.0 [facility] Comment on above: Order Comment: Speci men Type: BLOOD SPECIMENOrdering Facility: [facility] Address: [address] [place] [address] Performed By: #### 5 7021-8 ####[facility] LABORATORYCLIA [id number] [address] [place] MCV (RBC) [Entitic vol] 95.3 fL Normal 80.0-100.0 [facility] Comment on above: Order Comment: Speci men Type: BLOOD SPECIMENOrdering Facility: [facility] Address: [address] [place] [address] Performed By: #### 5 7021-8 ####[facility] LABORATORYCLIA [id number] [place] [address] [place] Metamyelocytes/100 WBC (Bld) 1.0 % Normal [facility] Comment on above: Order Comment: Speci men Type: BLOOD SPECIMENOrdering Facility: [facility] Address: [address] [place] [address] Performed By: #### 5 7021-8 ####[facility] LABORATORYCLIA [id number] [place] [address] [place] Monocytes (Bld) [#/Vol] 0.40 10*3/uL Normal <0.87 [facility] Comment on above: Order Comment: Speci men Type: BLOOD SPECIMENOrdering Facility: [facility] Address: [address] [place] [address] Performed By: #### 5 7021-8 ####[facility] LABORATORYCLIA [id number] [address] [place] Monocytes/100 WBC (Bld) 3.0 % Normal [facility] Comment on above: Order Comment: Speci men Type: BLOOD SPECIMENOrdering Facility: [facility] Address: [address] [place] [address] Performed By: #### 5 7021-8 ####[facility] LABORATORYCLIA [id number] [place] [address] [place] Neutrophils (Bld) [#/Vol] 12.12 10*3/uL High 1.45-7.50 [facility] Comment on above: Order Comment: Speci men Type: BLOOD SPECIMENOrdering Facility: [facility] Address: [address] [place] [address] Performed By: #### 5 7021-8 ####[facility] LABORATORYCLIA [id number] [place] [address] [place] Neutrophils/100 WBC (Bld) 91.0 % Normal [facility] Comment on above: Order Comment: Speci men Type: BLOOD SPECIMENOrdering Facility: [facility] Address: [address] [place] [address] Performed By: #### 5 7021-8 ####[facility] LABORATORYCLIA [id number] [place] [address] [place] Nucleated RBC (Bld) [#/Vol] 0.92 10*3/uL High <0.01 [facility] Comment on above: Order Comment: Speci men Type: BLOOD SPECIMENOrdering Facility: [facility] Address: [address] [place] [address] Performed By: #### 5 7021-8 ####[facility] LABORATORYCLIA [id number] [place] [address] [place] Nucleated RBC/100 WBC (Bld) [Ratio] 7.0 /100 WBC Normal [facility] Comment on above: Order Comment: Speci men Type: BLOOD SPECIMENOrdering Facility: [facility] Address: [address] [place] [address] Performed By: #### 5 7021-8 ####[facility] LABORATORYCLIA [id number] [place] [address] [place] Ovalocytes LM Ql (Bld) Few Normal [facility] Comment on above: Order Comment: Speci men Type: BLOOD SPECIMENOrdering Facility: [facility] Address: [address] [place] [address] Performed By: #### 5 7021-8 ####[facility] LABORATORYCLIA [id number] [place] [address] [place] Platelet mean volume (Bld) [Entitic vol] 10.9 fL Normal 9.0-12.7 [facility] Comment on above: Order Comment: Speci men Type: BLOOD SPECIMENOrdering Facility: [facility] Address: [address] [place] [address] Performed By: #### 5 7021-8 ####[facility] LABORATORYCLIA [id number] [place] [address] [place] Platelets (Bld) [#/Vol] 109 10*3/uL Low 150-400 [facility] Comment on above: Order Comment: Speci men Type: BLOOD SPECIMENOrdering Facility: [facility] Address: [address] [place] [address] Performed By: #### 5 7021-8 ####[facility] LABORATORYCLIA [id number] [place] [id number] [employer] [place] Platelets Estimate (Bld) [#/Vol] Decreased Normal [facility] Comment on above: Order Comment: Speci men Type: BLOOD SPECIMENOrdering Facility: [facility] Address: [address] [place] [address] Performed By: #### 5 7021-8 ####[facility] LABORATORYCLIA [id number] [place] [address] [facility] [place] Polychromasia LM Ql (Bld) Slight Normal [facility] Comment on above: Order Comment: Speci men Type: BLOOD SPECIMENOrdering Facility: [facility] Address: [address] [place] [address] Performed By: #### 5 7021-8 ####[facility] LABORATORYCLIA [id number] [address] [place] RBC (Bld) [#/Vol] 2.33 10*6/uL Low 4.20-6.00 [facility] Comment on above: Order Comment: Speci men Type: BLOOD SPECIMENOrdering Facility: [facility] Address: [address] [place] [address] Performed By: #### 5 7021-8 ####[facility] LABORATORYCLIA [id number] [address] [employer] Reviewed: see result s of individual morphologies Normal [facility] Comment on above: Order Comment: Speci men Type: BLOOD SPECIMENOrdering Facility: [facility] Address: [address] [place] [address] Performed By: #### 5 7021-8 ####[facility] LABORATORYCLIA [id number] [place] [id number] [place] WBC (Bld) [#/Vol] 13.17 10*3/uL High 3.70-11.00 [facility] Comment on above: Order Comment: Speci men Type: BLOOD SPECIMENOrdering Facility: [facility] Address: [address] [place] [address] Performed By: #### 5 7021-8 ####[facility] LABORATORYCLIA [id number] [place] [id number] [facility] CBC panel Auto (Bld)on 10-29 Erythrocyte distribution width (RBC) [Ratio] 15.5 % High 11.5-15.0 [facility] Comment on above: Order Comment: Speci men Type: BLOOD SPECIMENOrdering Facility: [facility] Address: [address] [place] [address] Performed By: #### 5 8410-2 ####[facility] LABORATORYCLIA [id number] [address] [place] Hematocrit (Bld) [Volume fraction] 24.4 % Low 39.0-51.0 [facility] Comment on above: Order Comment: Speci men Type: BLOOD SPECIMENOrdering Facility: [facility] Address: [address] [place] [address] Performed By: #### 5 8410-2 ####[facility] LABORATORYCLIA [id number] [address] [place] Hemoglobin (Bld) [Mass/Vol] 8.3 g/dL Low 13.0-17.0 [facility] Comment on above: Order Comment: Speci men Type: BLOOD SPECIMENOrdering Facility: [facility] Address: [address] [place] [address] Performed By: #### 5 8410-2 ####[facility] LABORATORYCLIA [id number] [place] [id number] [place] MCH (RBC) [Entitic mass] 31.8 pg Normal 26.0-34.0 [facility] Comment on above: Order Comment: Speci men Type: BLOOD SPECIMENOrdering Facility: [facility] Address: [address] [place] [address] Performed By: #### 5 8410-2 ####[facility] LABORATORYCLIA [id number] [address] [place] MCHC (RBC) [Mass/Vol] 34.0 g/dL Normal 30.5-36.0 [facility] Comment on above: Order Comment: Speci men Type: BLOOD SPECIMENOrdering Facility: [facility] Address: [address] [place] [address] Performed By: #### 5 8410-2 ####[facility] LABORATORYCLIA [id number] [place] [address] [place] MCV (RBC) [Entitic vol] 93.5 fL Normal 80.0-100.0 [facility] Comment on above: Order Comment: Speci men Type: BLOOD SPECIMENOrdering Facility: [facility] Address: [address] [place] [address] Performed By: #### 5 8410-2 ####[facility] LABORATORYCLIA [id number] [place] [address] [place] Nucleated RBC (Bld) [#/Vol] 0.21 10*3/uL High <0.01 [facility] Comment on above: Order Comment: Speci men Type: BLOOD SPECIMENOrdering Facility: [facility] Address: [address] [place] [address] Performed By: #### 5 8410-2 ####[facility] LABORATORYCLIA [id number] [place] [address] [place] Platelet mean volume (Bld) [Entitic vol] 10.8 fL Normal 9.0-12.7 [facility] Comment on above: Order Comment: Speci men Type: BLOOD SPECIMENOrdering Facility: [facility] Address: [address] [place] [address] Performed By: #### 5 8410-2 ####[facility] LABORATORYCLIA [id number] [place] [address] [place] Platelets (Bld) [#/Vol] 96 10*3/uL Low 150-400 [facility] Comment on above: Order Comment: Speci men Type: BLOOD SPECIMENOrdering Facility: [facility] Address: [address] [place] [address] Result Comment: Micr otainer sample. No clot detected. Performed By: #### 5 8410-2 ####[facility] LABORATORYCLIA [id number] [address] OF [facility] RBC (Bld) [#/Vol] 2.61 10*6/uL Low 4.20-6.00 [facility] Comment on above: Order Comment: Speci men Type: BLOOD SPECIMENOrdering Facility: [facility] Address: [address] [place] [address] Performed By: #### 5 8410-2 ####[facility] LABORATORYCLIA [id number] [address] OF [facility] WBC (Bld) [#/Vol] 14.34 10*3/uL High 3.70-11.00 [facility] Comment on above: Order Comment: Speci men Type: BLOOD SPECIMENOrdering Facility: [facility] Address: [address] [place] [address] Performed By: #### 5 8410-2 ####[facility] LABORATORYCLIA [id number] [address] [place] HISTORY PHYSICALon HISTORY PHYSICAL Normal [facility] HISTORY PHYSICAL Normal [facility] Hematocrit Auto (Bld) [Volum e fraction]on 10-29-2023 Hematocrit (Bld) [Volume fraction] 19.9 % Low 39.0-51.0 [facility] Comment on above: Order Comment: Speci men Type: BLOOD SPECIMENOrdering Facility: [facility] Address: [address] [place] [address] Performed By: #### 4 544-3, 718-7 ####[facility] LABORATORYCLIA [id number] [address] OF [facility] Hgb Bld-mCncon 10-29-2023 Hemoglobin (Bld) [Mass/Vol] 6.3 g/dL Low 13.0-17.0 [facility] Comment on above: Order Comment: Speci men Type: BLOOD SPECIMENOrdering Facility: [facility] Address: [address] [place] [address] [place] [id number] Performed By: #### 4 544-3, 718-7 ####[facility] LABORATORYCLIA [id number] [place] [id number] [place] IR ARTERY VISCERALon 024 IR ARTERY VISCERAL Normal [facility] IR EMBO HEMORRHAGE/EXTRAVASo n 10-29-2023 IR EMBO HEMORRHAGE/EXTRAVAS Normal [facility] IR FLUOR GUID VASC ACCESSon 10-29-2023 IR FLUOR GUID VASC ACCESS [facility] IR US GUIDE VASC ACCESSon IR US GUIDE VASC ACCESS [facility] IR VISCERAL SELECTon 024 IR VISCERAL SELECT Normal [facility] MEDICAL EMERon 10-29-2023 MEDICAL ROSIBEL [facility] NURSING PROGon 10-29-2023 NURSING PROG [facility] PT panel Coag (PPP)on 2023 INR Coag (PPP) [Relative time] 1.4 {INR} High 0.9-1.3 [facility] Comment on above: Order Comment: Elizabeth riggs Type: BLOOD SPECIMENOrdering Facility: [facility] Address: [facility] [place] [id number] Result Comment: Judy min K Antagonist (VKA) Therapeutic Range: INR 2 to 3 (Target INR of 2.5)Note: For patients treated with VKA drugs, such as warfarin, the [place] [employer] 2012 Guideline recommends a therapeutic INR range of 2 to 3 (target INR of 2.5). This recommendation includes high-risk patients with antiphospholipid syndrome with previous arterial or venous thromboembolism, current-generation mechanical or bioprosthetic aortic heart valve replacement.Note: Patients with mechanical aortic valve replacement and additional risk factors for thromboembolic events (atrial fibrillation, previous thromboembolism, LV dysfunction, hypercoagulable conditions) or an older generation mechanical AVR (i.e., ball in-Cage) or any mechanical MVR should have a INR therapeutic range of 2.5 to 3.5 (target INR of 3).Ashly GH, et al. Chest 2012, 141:7S-47SNishmarcusura RA, et al. JACC 2017, 70: 252-289 Performed By: #### 3 4528-0 ####[facility] LABORATORYCLIA [id number] [place] [id number] [place] PT Coag (PPP) [Time] 15.1 s High 9.7-13.0 [facility] Comment on above: Order Comment: Speci men Type: BLOOD SPECIMENOrdering Facility: [facility] Address: [address] [place] [address] Performed By: #### 3 4528-0 ####[facility] LABORATORYCLIA [id number] [place] [id number] [place] Upper GI endoscopyon 024 Upper GI endoscopy Normal [facility] Basic metabolic 2000 panelon 10-28-2023 Anion gap [Moles/Vol] 8 mmol/L Normal -16 [facility] Comment on above: Order Comment: Speci men Type: BLOOD SPECIMENOrdering Facility: [facility] Address: [address] [place] [address] Performed By: #### 2 4321-2, 05772-7 ####[facility] LABORATORYCLIA [id number] [place] [address] [place] Calcium [Mass/Vol] 7.9 mg/dL Low 8.5-10.5 [facility] Comment on above: Order Comment: Speci men Type: BLOOD SPECIMENOrdering Facility: [facility] Address: [address] [place] [address] Performed By: #### 2 4321-2, 47307-7 ####[facility] LABORATORYCLIA [id number] [place] [id number] [place] Chloride [Moles/Vol] 109 mmol/L High 98-107 [facility] Comment on above: Order Comment: Speci men Type: BLOOD SPECIMENOrdering Facility: [facility] Address: [address] [place] [address] Performed By: #### 2 4321-2, 47840-8 ####[facility] LABORATORYCLIA [id number] [place] [address] [place] CO2 [Moles/Vol] 22 mmol/L Normal 21-32 [facility] Comment on above: Order Comment: Speci men Type: BLOOD SPECIMENOrdering Facility: [facility] Address: [address] [place] [address] Performed By: #### 2 4321-2, 02290-6 ####[facility] LABORATORYCLIA [id number] [place] [id number] [place] Creatinine [Mass/Vol] 3.17 mg/dL High 0.50-1.40 [facility] Comment on above: Order Comment: Speci men Type: BLOOD SPECIMENOrdering Facility: [facility] Address: [address] [place] [address] Result Comment: Raquel ents receiving either N-Acetylcysteine (NAC) or Metamizole prior to venipuncture, may have falsely depressed results. Performed By: #### 2 4321-2, 07417-4 ####[facility] LABORATORYCLIA [id number] [address] Creatinine and Glomerular filtration rate.predicted panel (S/P/Bld) 20 mL/min/1.73m??? Low >=60 [facility] Comment on above: Order Comment: Speci men Type: BLOOD SPECIMENOrdering Facility: [facility] Address: [address] [place] [address] Result Comment: More mated Glomerular Filtration Rate (eGFR) is calculated using the 2020 CKD-EPI creatinine equation. This equation utilizes serum creatinine, sex, and age as parameters. The creatinine assay has traceable calibration to isotope dilution-mass spectrometry. Refer to KDIGO guidelines for clinical interpretation. In patients with unstable renal function, e.g. those with acute kidney injury, the eGFR may not accurately reflect actual GFR. Performed By: #### 2 4321-2, 98751-2 ####[facility] LABORATORYCLIA [id number] [place] [id number] [place] Glucose [Mass/Vol] 127 mg/dL High 70-100 [facility] Comment on above: Order Comment: Speci men Type: BLOOD SPECIMENOrdering Facility: [facility] Address: [address] [place], [place] [address] Result Comment: The [place] [employer] (ADA) provides guidance for cutoff values for fasting glucose and random glucose. The ADA defines fasting as no caloric intake for at least 8 hours. Fasting plasma glucose results between 100 to 125 mg/dL indicate increased risk for diabetes (prediabetes).Fasting plasma glucose results greater than or equal to 126 mg/dL meet the criteria for diagnosis of diabetes. In the absence of unequivocal hyperglycemia, results should be confirmed by repeat testing. In a patient with classic symptoms of hyperglycemia or hyperglycemic crisis, random plasma glucose results greater than or equal to 200 mg/dL meet the criteria for diagnosis of diabetes.Reference: Standards of Medical Care in Diabetes 2016, [place] [employer]. Diabetes Care. 2016.39(Suppl 1).Results may be falsely elevated after the administration of Sulfapyridine.Results may be falsely depressed after the administration of Sulfasalazine. Performed By: #### 2 4321-2, 94425-1 ####[facility] LABORATORYCLIA [id number] [place] [address] [place] Potassium [Moles/Vol] 3.7 mmol/L Normal 3.5-5.1 [facility] Comment on above: Order Comment: Elizabeth riggs Type: BLOOD SPECIMENOrdering Facility: [facility] Address: [address] [place] [address] Performed By: #### 2 4321-2, 16852-7 ####[facility] LABORATORYCLIA [id number] [place] [address] [place] Sodium [Moles/Vol] 139 mmol/L Normal 136-145 [facility] Comment on above: Order Comment: Elizabeth riggs Type: BLOOD SPECIMENOrdering Facility: [facility] Address: [address] [place], [place] [address] Performed By: #### 2 4321-2, 21485-7 ####[facility] LABORATORYCLIA [id number] [place] [address] [place] Urea nitrogen [Mass/Vol] 114 mg/dL High 7-26 [facility] Comment on above: Order Comment: Speci men Type: BLOOD SPECIMENOrdering Facility: [facility] Address: [address] [place] [address] Performed By: #### 2 4321-2, 66281-7 ####[facility] LABORATORYCLIA [id number] [place] [id number] [place] CASE MANAGEMon 10-28-2023 CASE MANAGEM Normal [facility] CBC W Auto Differential pane l (Bld)on 10-28-2023 Band form neutrophils/100 WBC (Bld) 1.0 % Normal [facility] Comment on above: Order Comment: Speci men Type: BLOOD SPECIMENOrdering Facility: [facility] Address: [address] [place] [address] Performed By: #### 7 18-7, 02079-7 ####[facility] LABORATORYCLIA [id number] [place] [address] [place] Basophilic stippling LM Ql (Bld) Occasional Normal [facility] Comment on above: Order Comment: Speci men Type: BLOOD SPECIMENOrdering Facility: [facility] Address: [address] [place] [address] Performed By: #### 7 18-7, 95805-6 ####[facility] LABORATORYCLIA [id number] [place] [address] [place] Basophils (Bld) [#/Vol] 0.00 10*3/uL Normal <0.11 [facility] Comment on above: Order Comment: Speci men Type: BLOOD SPECIMENOrdering Facility: [facility] Address: [address] [place] [address] Performed By: #### 7 18-7, 55120-1 ####[facility] LABORATORYCLIA [id number] [place] [id number] [place] Basophils/100 WBC (Bld) 0.0 % Normal [facility] Comment on above: Order Comment: Speci men Type: BLOOD SPECIMENOrdering Facility: [facility] Address: [address] [place] [address] Performed By: #### 7 18-7, 31208-0 ####[facility] LABORATORYCLIA [id number] [place] [id number] [employer] [place] Differential cell count method Nom (Bld) Manual Normal [facility] Comment on above: Order Comment: Speci men Type: BLOOD SPECIMENOrdering Facility: [facility] Address: [address] [place] [address] Performed By: #### 7 18-, 95792-6 ####[facility] LABORATORYCLIA [id number] [place] [address] [place] Eosinophils (Bld) [#/Vol] 0.00 10*3/uL Normal <0.46 [facility] Comment on above: Order Comment: Speci men Type: BLOOD SPECIMENOrdering Facility: [facility] Address: [address] [place] [address] Performed By: #### 7 18, 16237-3 ####[facility] LABORATORYCLIA [id number] [address] [place] Eosinophils/100 WBC (Bld) 0.0 % Normal [facility] Comment on above: Order Comment: Speci men Type: BLOOD SPECIMENOrdering Facility: [facility] Address: [address] [place] [address] Performed By: #### 7 18-, 40701-3 ####[facility] LABORATORYCLIA [id number] [address] [place] Erythrocyte distribution width (RBC) [Ratio] 17.2 % High 11.5-15.0 [facility] Comment on above: Order Comment: Speci men Type: BLOOD SPECIMENOrdering Facility: [facility] Address: [address] [place] [address] Performed By: #### 7 18-, 86431-8 ####[facility] LABORATORYCLIA [id number] [place] [id number] [employer] [place] Hematocrit (Bld) [Volume fraction] 23.5 % Low 39.0-51.0 [facility] Comment on above: Order Comment: Speci men Type: BLOOD SPECIMENOrdering Facility: [facility] Address: [address] [place] [address] Performed By: #### 7 18-7, 27652-6 ####[facility] LABORATORYCLIA [id number] [place] [id number] [place] Lymphocytes (Bld) [#/Vol] 0.25 10*3/uL Low 1.00-4.00 [facility] Comment on above: Order Comment: Speci men Type: BLOOD SPECIMENOrdering Facility: [facility] Address: [address] [place] [address] Performed By: #### 7 18-7, 47196-0 ####[facility] LABORATORYCLIA [id number] [place] [id number] [place] Lymphocytes/100 WBC (Bld) 3.0 % Normal [facility] Comment on above: Order Comment: Speci men Type: BLOOD SPECIMENOrdering Facility: [facility] Address: [address] [place] [address] Performed By: #### 7 18-7, 60853-7 ####[facility] LABORATORYCLIA [id number] [place] [address] [place] MCH (RBC) [Entitic mass] 29.0 pg Normal 26.0-34.0 [facility] Comment on above: Order Comment: Speci men Type: BLOOD SPECIMENOrdering Facility: [facility] Address: [address] [place] [address] Performed By: #### 7 18-7, 24513-7 ####[facility] LABORATORYCLIA [id number] [place] [address] [place] MCHC (RBC) [Mass/Vol] 29.5 g/dL Low 30.5-36.0 [facility] Comment on above: Order Comment: Speci men Type: BLOOD SPECIMENOrdering Facility: [facility] Address: [address] [place] [address] Performed By: #### 7 18-7, 76937-8 ####[facility] LABORATORYCLIA [id number] [place] [address] [place] MCV (RBC) [Entitic vol] 97.5 fL Normal 80.0-100.0 [facility] Comment on above: Order Comment: Speci men Type: BLOOD SPECIMENOrdering Facility: [facility] Address: [address] [place] [address] Performed By: #### 7 18-7, 16657-3 ####[facility] LABORATORYCLIA [id number] [place] [address] [place] Metamyelocytes/100 WBC (Bld) 2.0 % Normal [facility] Comment on above: Order Comment: Speci men Type: BLOOD SPECIMENOrdering Facility: [facility] Address: [address] [place] [address] Performed By: #### 7 18-7, 23664-6 ####[facility] LABORATORYCLIA [id number] [place] [address] [place] Monocytes (Bld) [#/Vol] 0.58 10*3/uL Normal <0.87 [facility] Comment on above: Order Comment: Speci men Type: BLOOD SPECIMENOrdering Facility: [facility] Address: [address] [place] [address] Performed By: #### 7 18-7, 76837-5 ####[facility] LABORATORYCLIA [id number] [place] [address] [place] Monocytes/100 WBC (Bld) 7.0 % Normal [facility] Comment on above: Order Comment: Speci men Type: BLOOD SPECIMENOrdering Facility: [facility] Address: [address] [place] [address] Performed By: #### 7 18-7, 89883-2 ####[facility] LABORATORYCLIA [id number] [place] [id number] [place] Neutrophils (Bld) [#/Vol] 7.24 10*3/uL Normal 1.45-7.50 [facility] Comment on above: Order Comment: Speci men Type: BLOOD SPECIMENOrdering Facility: [facility] Address: [address] [place] [address] Performed By: #### 7 18-7, 96743-3 ####[facility] LABORATORYCLIA [id number] [place] [id number] [place] Neutrophils/100 WBC (Bld) 87.0 % Normal [facility] Comment on above: Order Comment: Speci men Type: BLOOD SPECIMENOrdering Facility: [facility] Address: [address] [place] [address] Performed By: #### 7 18-, 06060-4 ####[facility] [facility] LABORATORYCLIA [id number] [place] [address] [place] Nucleated RBC (Bld) [#/Vol] 10*3/uL Normal <0.01 [facility] Comment on above: Order Comment: Speci men Type: BLOOD SPECIMENOrdering Facility: [facility] Address: [address] [place] [address] Performed By: #### 7 18-, 58050-6 ####[facility] LABORATORYCLIA [id number] [place] [address] [place] Nucleated RBC/100 WBC (Bld) [Ratio] 0.0 /100 WBC Normal [facility] Comment on above: Order Comment: Speci men Type: BLOOD SPECIMENOrdering Facility: [facility] Address: [address] [place] [address] Performed By: #### 7 18-, 72922-9 ####[facility] LABORATORYCLIA [id number] [place] [address] [place] Ovalocytes LM Ql (Bld) Few Normal [facility] Comment on above: Order Comment: Speci men Type: BLOOD SPECIMENOrdering Facility: [facility] Address: [address] [place] [address] Performed By: #### 7 18-7, 73400-4 ####[facility] LABORATORYCLIA [id number] [place] [address] [place] Platelet mean volume (Bld) [Entitic vol] 11.2 fL Normal 9.0-12.7 [facility] Comment on above: Order Comment: Speci men Type: BLOOD SPECIMENOrdering Facility: [facility] Address: [address] [place] [address] Performed By: #### 7 18-7, 71059-1 ####[facility] LABORATORYCLIA [id number] [place] [id number] [place] Platelets (Bld) [#/Vol] 153 10*3/uL Normal 150-400 [facility] Comment on above: Order Comment: Speci men Type: BLOOD SPECIMENOrdering Facility: [facility] Address: [address] [place] [address] Performed By: #### 7 18-, 87080-0 ####[facility] LABORATORYCLIA [id number] [place] [id number] [place] Platelets Estimate (Bld) [#/Vol] Adequate Normal [facility] Comment on above: Order Comment: Speci men Type: BLOOD SPECIMENOrdering Facility: [facility] Address: [address] [place] [address] Performed By: #### 7 18-, 65663-4 ####[facility] LABORATORYCLIA [id number] [place] [id number] [place] Polychromasia LM Ql (Bld) Slight Normal [facility] Comment on above: Order Comment: Speci men Type: BLOOD SPECIMENOrdering Facility: [facility] Address: [address] [place] [address] Performed By: #### 7 18-, 98297-1 ####[facility] LABORATORYCLIA [id number] [place] [id number] [place] RBC (Bld) [#/Vol] 2.41 10*6/uL Low 4.20-6.00 [facility] Comment on above: Order Comment: Speci men Type: BLOOD SPECIMENOrdering Facility: [facility] Address: [address] [place] [address] Performed By: #### 7 18-, 34383-9 ####[facility] LABORATORYCLIA [id number] [place] [id number] [place] [facility] RED CELL MORPH Reviewed: see result s of individual morphologies Normal [facility] Comment on above: Order Comment: Speci men Type: BLOOD SPECIMENOrdering Facility: [facility] Address: [address] [place] [address] Performed By: #### 7 18-7, 36506-0 ####[facility] LABORATORYCLIA [id number] [place] [id number] [employer] [place] WBC (Bld) [#/Vol] 8.23 10*3/uL Normal 3.70-11.00 [facility] Comment on above: Order Comment: Speci men Type: BLOOD SPECIMENOrdering Facility: [facility] Address: [address] [place] [address] Performed By: #### 7 18-7, 74023-3 ####[facility] LABORATORYCLIA [id number] [address] CBC panel Auto (Bld)on 10-28 Erythrocyte distribution width (RBC) [Ratio] 16.7 % High 11.5-15.0 [facility] Comment on above: Order Comment: Speci men Type: BLOOD SPECIMENOrdering Facility: [facility] Address: [address] [place] [address] Performed By: #### 5 8410-2 ####[facility] LABORATORYCLIA [id number] [address] Hematocrit (Bld) [Volume fraction] 23.3 % Low 39.0-51.0 [facility] Comment on above: Order Comment: Speci men Type: BLOOD SPECIMENOrdering Facility: [facility] Address: [address] [place] [address] Performed By: #### 5 8410-2 ####[facility] LABORATORYCLIA [id number] [place] [id number] [facility] Hemoglobin (Bld) [Mass/Vol] 7.2 g/dL Low 13.0-17.0 [facility] Comment on above: Order Comment: Speci men Type: BLOOD SPECIMENOrdering Facility: [facility] Address: [address] [place] [address] Performed By: #### 5 8410-2 ####[facility] LABORATORYCLIA [id number] [address] MCH (RBC) [Entitic mass] 29.4 pg Normal 26.0-34.0 [facility] Comment on above: Order Comment: Speci men Type: BLOOD SPECIMENOrdering Facility: [facility] Address: [address] [place] [address] Performed By: #### 5 8410-2 ####[facility] LABORATORYCLIA [id number] [address] [place] MCHC (RBC) [Mass/Vol] 30.9 g/dL Normal 30.5-36.0 [facility] Comment on above: Order Comment: Speci men Type: BLOOD SPECIMENOrdering Facility: [facility] Address: [address] [place] [address] Performed By: #### 5 8410-2 ####[facility] LABORATORYCLIA [id number] [address] [place] MCV (RBC) [Entitic vol] 95.1 fL Normal 80.0-100.0 [facility] Comment on above: Order Comment: Speci men Type: BLOOD SPECIMENOrdering Facility: [facility] Address: [address] [place] [address] Performed By: #### 5 8410-2 ####[facility] LABORATORYCLIA [id number] [address] [place] Nucleated RBC (Bld) [#/Vol] 0.07 10*3/uL High <0.01 [facility] Comment on above: Order Comment: Speci men Type: BLOOD SPECIMENOrdering Facility: [facility] Address: [address] [place] [address] Performed By: #### 5 8410-2 ####[facility] LABORATORYCLIA [id number] [place] [address] [place] Platelet mean volume (Bld) [Entitic vol] 11.1 fL Normal 9.0-12.7 [facility] Comment on above: Order Comment: Speci men Type: BLOOD SPECIMENOrdering Facility: [facility] Address: [address] [place] [address] Performed By: #### 5 8410-2 ####[facility] LABORATORYCLIA [id number] [place] [address] [place] Platelets (Bld) [#/Vol] 129 10*3/uL Low 150-400 [facility] Comment on above: Order Comment: Speci men Type: BLOOD SPECIMENOrdering Facility: [facility] Address: [address] [place] [address] Performed By: #### 5 8410-2 ####[facility] LABORATORYCLIA [id number] [place] [address] [place] RBC (Bld) [#/Vol] 2.45 10*6/uL Low 4.20-6.00 [facility] Comment on above: Order Comment: Speci men Type: BLOOD SPECIMENOrdering Facility: [facility] Address: [address] [place] [address] Performed By: #### 5 8410-2 ####[facility] LABORATORYCLIA [id number] [place] [address] [place] WBC (Bld) [#/Vol] 7.12 10*3/uL Normal 3.70-11.00 [facility] Comment on above: Order Comment: Speci men Type: BLOOD SPECIMENOrdering Facility: [facility] Address: [address] [place] [address] Performed By: #### 5 8410-2 ####[facility] LABORATORYCLIA [id number] [place] [id number] [employer] [place] CONSULTon 10-28-2023 CONSULT Normal [facility] CT ABD/PEL WO IVCONon 2023 CT ABD/PEL WO IVCON Normal [facility] H pylori Ag Stl Ql IAon 10-14 H. pylori Ag IA Ql (Stl) H.PYLORI EIA RESULT: Negative for Helicobacter pylori antigen by EIA Normal [facility] Comment on above: Performed By: #### 1 7780-8 ####[facility] LABCLIA [id number] [facility] [id number] [address] [place] Hematocrit Auto (Bld) [Volum e fraction]on 10-28-2023 Hematocrit (Bld) [Volume fraction] 22.2 % Low 39.0-51.0 [facility] Comment on above: Order Comment: Speci men Type: BLOOD SPECIMENOrdering Facility: [facility] Address: [address] [place] [address] Performed By: #### 4 544-3, 718-7 ####[facility] LABORATORYCLIA [id number] [place] [address] [place] Hepatic function 2000 panelo n 10-28-2023 Albumin [Mass/Vol] 1.9 g/dL Low 3.2-5.0 [facility] Comment on above: Order Comment: Speci men Type: BLOOD SPECIMENOrdering Facility: [facility] Address: [address] [place] [address] Performed By: #### 2 4321-2, 38024-2 ####[facility] LABORATORYCLIA [id number] [place] [address] [place] ALP [Catalytic activity/Vol] 102 U/L Normal 45-117 [facility] Comment on above: Order Comment: Speci men Type: BLOOD SPECIMENOrdering Facility: [facility] Address: [address] [place] [address] Performed By: #### 2 4321-2, 16176-4 ####[facility] LABORATORYCLIA [id number] [place] [id number] [place] ALT [Catalytic activity/Vol] 410 U/L High 13-61 [facility] Comment on above: Order Comment: Speci men Type: BLOOD SPECIMENOrdering Facility: [facility] Address: [address] [place] [address] Result Comment: Resu lts may be falsely depressed after the administration of Sulfasalazine and/or Sulfapyridine. Performed By: #### 2 4320-2, 28379-6 ####[facility] LABORATORYCLIA [id number] [place] [address] [place] AST [Catalytic activity/Vol] 377 U/L High 8-34 [facility] Comment on above: Order Comment: Speci men Type: BLOOD SPECIMENOrdering Facility: [facility] Address: [address] [place] [address] Result Comment: Resu lts may be falsely depressed after the administration of Sulfasalazine and/or Sulfapyridine. Performed By: #### 2 432-, 29578-1 ####[facility] LABORATORYCLIA [id number] [place] [address] [place] Bilirubin [Mass/Vol] 0.6 mg/dL Normal 0.2-1.0 [facility] Comment on above: Order Comment: Speci men Type: BLOOD SPECIMENOrdering Facility: [facility] Address: [address] [place] [address] Performed By: #### 2 4320-10, 70467-2 ####[facility] LABORATORYCLIA [id number] [place] [address] [place] Bilirubin.conjugated [Mass/Vol] 0.4 mg/dL Normal 0.0-0.4 [facility] Comment on above: Order Comment: Speci men Type: BLOOD SPECIMENOrdering Facility: [facility] Address: [address] [place] [address] Performed By: #### 2 4320-, 62877-7 ####[facility] LABORATORYCLIA [id number] [place] [address] [place] Protein [Mass/Vol] 4.1 g/dL Low 6.0-8.5 [facility] Comment on above: Order Comment: Speci men Type: BLOOD SPECIMENOrdering Facility: [facility] Address: [address] [place] [address] Performed By: #### 2 4321-2, 21862-9 ####[facility] LABORATORYCLIA [id number] [address] [place] Hgb Bld-mCncon 10-28-2023 Hemoglobin (Bld) [Mass/Vol] 7.0 g/dL Low 13.0-17.0 [facility] Comment on above: Order Comment: Speci men Type: BLOOD SPECIMENOrdering Facility: [facility] Address: [address] [place] [address] Performed By: #### 4 544-3, 718-7 ####[facility] LABORATORYCLIA [id number] [address] Hemoglobin (Bld) [Mass/Vol] 6.9 g/dL Low 13.0-17.0 [facility] Comment on above: Order Comment: Speci men Type: BLOOD SPECIMENOrdering Facility: [facility] Address: [address] [place] [address] Performed By: #### 7 18-7, 37795-1 ####[facility] LABORATORYCLIA [id number] [address] TYPE + SCREENon 10-28-2023 ABO A Normal [facility] Comment on above: Order Comment: Speci men Type: BLOOD SPECIMENOrdering Facility: [facility] Address: [address] [place] [address] Performed By: #### T SCR ####[facility] BLOOD BANKCLIA [id number] [address] HISTORICAL AB SCR STATUS Negative Normal [facility] Comment on above: Order Comment: Speci men Type: BLOOD SPECIMENOrdering Facility: [facility] Address: [address] [place] [address] Performed By: #### T SCR ####[facility] BLOOD BANKCLIA [id number] [address] [place] Rh Nom (Bld) Negative Normal [facility] Comment on above: Order Comment: Speci men Type: BLOOD SPECIMENOrdering Facility: [facility] Address: [address] [place] [address] Performed By: #### T SCR ####[facility] BLOOD BANKCLIA [id number] [address] TYPE AND SCREEN EXPIRATION 10/31/2023 23:59 Normal [facility] Comment on above: Order Comment: Speci men Type: BLOOD SPECIMENOrdering Facility: [facility] Address: [address] [place] [address] Performed By: #### T SCR ####[facility] BLOOD BANKCLIA [id number] [address] XR ABDOMEN 1V SUPINEon 10-28 XR ABDOMEN 1V SUPINE Normal [facility] XR CHEST 1V FRONTAL PORTon 0 10-28-2023 XR CHEST 1V FRONTAL PORT [facility] aPTT PPPon 10-28-2023 aPTT Coag (PPP) [Time] 39.0 s High 23.0-32.4 [facility] Comment on above: Order Comment: Speci men Type: BLOOD SPECIMENOrdering Facility: [facility] Address: [address] [place] [address] Performed By: #### 1 4979-9 ####[facility] LABORATORYCLIA [id number] [address] aPTT Coag (PPP) [Time] 53.2 s High 23.0-32.4 [facility] Comment on above: Order Comment: Speci men Type: BLOOD SPECIMENOrdering Facility: [facility] Address: [address] [place] [address] Performed By: #### 1 4979-9 ####[facility] LABORATORYCLIA [id number] [address] aPTT Coag (PPP) [Time] 133.1 s High 23.0-32.4 [facility] Comment on above: Order Comment: Speci men Type: BLOOD SPECIMENOrdering Facility: [facility] Address: [address] [place] [address] Result Comment: Resu lt rechecked.Sample checked for clot. Performed By: #### 1 4979-9 ####[facility] LABORATORYCLIA [id number] [place] [id number] [place] Basic metabolic 2000 panelon 10-27-2023 Anion gap [Moles/Vol] 8 mmol/L Normal 5-16 [facility] Comment on above: Order Comment: Speci men Type: BLOOD SPECIMENOrdering Facility: [facility] Address: [address] [place], [place] [address] Performed By: #### 2 4321-2, ####[facility] LABORATORYCLIA [id number] [place] [id number] [place] Calcium [Mass/Vol] 7.9 mg/dL Low 8.5-10.5 [facility] Comment on above: Order Comment: Speci men Type: BLOOD SPECIMENOrdering Facility: [facility] Address: [address] [place], [place] [address] Performed By: #### 2 4321-2, ####[facility] LABORATORYCLIA [id number] [place] [address] [place] Chloride [Moles/Vol] 111 mmol/L High 98-107 [facility] Comment on above: Order Comment: Speci men Type: BLOOD SPECIMENOrdering Facility: [facility] Address: [address] [place] [address] Performed By: #### 2 4321-2, ####[facility] LABORATORYCLIA [id number] [place] [id number] [place] CO2 [Moles/Vol] 21 mmol/L Normal 21-32 [facility] Comment on above: Order Comment: Speci men Type: BLOOD SPECIMENOrdering Facility: [facility] Address: [address] [place] [address] Performed By: #### 2 4321-2, ####[facility] LABORATORYCLIA [id number] [place] [address] [place] Creatinine [Mass/Vol] 3.09 mg/dL High 0.50-1.40 [facility] Comment on above: Order Comment: Sydnii keely Type: BLOOD SPECIMENOrdering Facility: [facility] Address: [address] [place] [address] Result Comment: Raquel ents receiving either N-Acetylcysteine (NAC) or Metamizole prior to venipuncture, may have falsely depressed results. Performed By: #### 2 4321-2, ####[facility] LABORATORYCLIA [id number] [address] Creatinine and Glomerular filtration rate.predicted panel (S/P/Bld) 21 mL/min/1.73m??? Low >=60 [facility] Comment on above: Order Comment: Elizabeth riggs Type: BLOOD SPECIMENOrdering Facility: [facility] Address: [address] [place] [address] Result Comment: More mated Glomerular Filtration Rate (eGFR) is calculated using the 2020 CKD-EPI creatinine equation. This equation utilizes serum creatinine, sex, and age as parameters. The creatinine assay has traceable calibration to isotope dilution-mass spectrometry. Refer to KDIGO guidelines for clinical interpretation. In patients with unstable renal function, e.g. those with acute kidney injury, the eGFR may not accurately reflect actual GFR. Performed By: #### 2 4321-2, ####[facility] LABORATORYCLIA [id number] [place] [id number] [place] Glucose [Mass/Vol] 63 mg/dL Low 70-100 [facility] Comment on above: Order Comment: Elizabeth riggs Type: BLOOD SPECIMENOrdering Facility: [facility] Address: [address] [place] [address] Result Comment: The [place] [employer] (ADA) provides guidance for cutoff values for fasting glucose and random glucose. The ADA defines fasting as no caloric intake for at least 8 hours. Fasting plasma glucose results between 100 to 125 mg/dL indicate increased risk for diabetes (prediabetes).Fasting plasma glucose results greater than or equal to 126 mg/dL meet the criteria for diagnosis of diabetes. In the absence of unequivocal hyperglycemia, results should be confirmed by repeat testing. In a patient with classic symptoms of hyperglycemia or hyperglycemic crisis, random plasma glucose results greater than or equal to 200 mg/dL meet the criteria for diagnosis of diabetes.Reference: Standards of Medical Care in Diabetes 2016, [place] [employer]. Diabetes Care. 2016.39(Suppl 1).Results may be falsely elevated after the administration of Sulfapyridine.Results may be falsely depressed after the administration of Sulfasalazine. Performed By: #### 2 432-, ####[facility] LABORATORYCLIA [id number] [place] [id number] [place] Potassium [Moles/Vol] 3.6 mmol/L Normal 3.5-5.1 [facility] Comment on above: Order Comment: Elizabeth riggs Type: BLOOD SPECIMENOrdering Facility: [facility] Address: [address] [place] [address] Performed By: #### 2 4320-10, ####[facility] LABORATORYCLIA [id number] [place] [id number] [place] Sodium [Moles/Vol] 140 mmol/L Normal 136-145 [facility] Comment on above: Order Comment: Elizabeth riggs Type: BLOOD SPECIMENOrdering Facility: [facility] Address: [address] [place] [address] Performed By: #### 2 4320-10, ####[facility] LABORATORYCLIA [id number] [place] [id number] [place] Urea nitrogen [Mass/Vol] 115 mg/dL High 7-26 [facility] Comment on above: Order Comment: Elizabeth riggs Type: BLOOD SPECIMENOrdering Facility: [facility] Address: [address] [place] [address] Performed By: #### 2 43209-14, ####[facility] LABORATORYCLIA [id number] [place] [id number] [place] CASE MANAGEMon 10-27-2023 CASE MANAGEM Normal [facility] CBC panel Auto (Bld)on 10-27 Erythrocyte distribution width (RBC) [Ratio] 16.1 % High 11.5-15.0 [facility] Comment on above: Order Comment: Speci men Type: BLOOD SPECIMENOrdering Facility: [facility] Address: [address] [place] [address] Performed By: #### 5 8410-2 ####[facility] LABORATORYCLIA [id number] [address] OF [facility] Hematocrit (Bld) [Volume fraction] 25.6 % Low 39.0-51.0 [facility] Comment on above: Order Comment: Speci men Type: BLOOD SPECIMENOrdering Facility: [facility] Address: [address] [place] [address] Performed By: #### 5 8410-2 ####[facility] LABORATORYCLIA [id number] [address] [place] Hemoglobin (Bld) [Mass/Vol] 7.9 g/dL Low 13.0-17.0 [facility] Comment on above: Order Comment: Speci men Type: BLOOD SPECIMENOrdering Facility: [facility] Address: [address] [place] [address] Performed By: #### 5 8410-2 ####[facility] LABORATORYCLIA [id number] [place] [address] [place] MCH (RBC) [Entitic mass] 29.3 pg Normal 26.0-34.0 [facility] Comment on above: Order Comment: Speci men Type: BLOOD SPECIMENOrdering Facility: [facility] Address: [address] [place] [address] Performed By: #### 5 8410-2 ####[facility] LABORATORYCLIA [id number] [address] [place] MCHC (RBC) [Mass/Vol] 30.9 g/dL Normal 30.5-36.0 [facility] Comment on above: Order Comment: Speci men Type: BLOOD SPECIMENOrdering Facility: [facility] Address: [address] [place] [address] Performed By: #### 5 8410-2 ####[facility] LABORATORYCLIA [id number] [place] [id number] [place] MCV (RBC) [Entitic vol] 94.8 fL Normal 80.0-100.0 [facility] Comment on above: Order Comment: Speci men Type: BLOOD SPECIMENOrdering Facility: [facility] Address: [address] [place] [address] Performed By: #### 5 8410-2 ####[facility] LABORATORYCLIA [id number] [address] [place] Nucleated RBC (Bld) [#/Vol] 0.17 10*3/uL High <0.01 [facility] Comment on above: Order Comment: Speci men Type: BLOOD SPECIMENOrdering Facility: [facility] Address: [address] [place] [address] Performed By: #### 5 8410-2 ####[facility] LABORATORYCLIA [id number] [place] [address] [place] Platelet mean volume (Bld) [Entitic vol] 10.7 fL Normal 9.0-12.7 [facility] Comment on above: Order Comment: Speci men Type: BLOOD SPECIMENOrdering Facility: [facility] Address: [address] [place] [address] Performed By: #### 5 8410-2 ####[facility] LABORATORYCLIA [id number] [place] [address] [place] Platelets (Bld) [#/Vol] 150 10*3/uL Normal 150-400 [facility] Comment on above: Order Comment: Speci men Type: BLOOD SPECIMENOrdering Facility: [facility] Address: [address] [place] [address] Performed By: #### 5 8410-2 ####[facility] LABORATORYCLIA [id number] [place] [id number] [place] RBC (Bld) [#/Vol] 2.70 10*6/uL Low 4.20-6.00 [facility] Comment on above: Order Comment: Speci men Type: BLOOD SPECIMENOrdering Facility: [facility] Address: [address] [place] [address] Performed By: #### 5 8410-2 ####[facility] LABORATORYCLIA [id number] [place] [id number] [place] WBC (Bld) [#/Vol] 7.50 10*3/uL Normal 3.70-11.00 [facility] Comment on above: Order Comment: Speci men Type: BLOOD SPECIMENOrdering Facility: [facility] Address: [address] [place] [address] Performed By: #### 5 8410-2 ####[facility] LABORATORYCLIA [id number] [place] [id number] [employer] [place] Hepatic function 2000 panelo n 10-27-2023 Albumin [Mass/Vol] 2.2 g/dL Low 3.2-5.0 [facility] Comment on above: Order Comment: Speci men Type: BLOOD SPECIMENOrdering Facility: [facility] Address: [address] [place] [address] Performed By: #### 2 4325-3 ####[facility] LABORATORYCLIA [id number] [address] [place] ALP [Catalytic activity/Vol] 107 U/L Normal 45-117 [facility] Comment on above: Order Comment: Speci men Type: BLOOD SPECIMENOrdering Facility: [facility] Address: [address] [place] [address] Performed By: #### 2 4325-3 ####[facility] LABORATORYCLIA [id number] [address] [place] ALT [Catalytic activity/Vol] 481 U/L High 13-61 [facility] Comment on above: Order Comment: Speci men Type: BLOOD SPECIMENOrdering Facility: [facility] Address: [address] [place] [address] Result Comment: Resu lts may be falsely depressed after the administration of Sulfasalazine and/or Sulfapyridine. Performed By: #### 2 4325-3 ####[facility] LABORATORYCLIA [id number] [place] [address] [place] [facility] AST [Catalytic activity/Vol] Normal [facility] Comment on above: Order Comment: Speci men Type: BLOOD SPECIMENOrdering Facility: [facility] Address: [address] [place] [address] Result Comment: Unab le to assay due to interference from hemolysis. Suggest reorder as clinically indicated. &XA&NOTIFY JEAN SIEMENS, HEMOLYZED ASTResults may be falsely depressed after the administration of Sulfasalazine and/or Sulfapyridine. Performed By: #### 2 4325-3 ####[facility] LABORATORYCLIA [id number] [place] [address] [place] Bilirubin [Mass/Vol] 0.8 mg/dL Normal 0.2-1.0 [facility] Comment on above: Order Comment: Speci men Type: BLOOD SPECIMENOrdering Facility: [facility] Address: [address] [place] [address] Performed By: #### 2 4325-3 ####[facility] LABORATORYCLIA [id number] [place] [address] [place] Bilirubin.conjugated [Mass/Vol] 0.5 mg/dL High 0.0-0.4 [facility] Comment on above: Order Comment: Speci men Type: BLOOD SPECIMENOrdering Facility: [facility] Address: [address] [place] [address] Performed By: #### 2 4325-3 ####[facility] LABORATORYCLIA [id number] [place] [address] [place] Protein [Mass/Vol] 4.8 g/dL Low 6.0-8.5 [facility] Comment on above: Order Comment: Speci men Type: BLOOD SPECIMENOrdering Facility: [facility] Address: [address] [place] [address] Performed By: #### 2 4325-3 ####[facility] LABORATORYCLIA [id number] [place] [id number] [facility] Magnesium SerPl-mCncon 10-27 Magnesium [Mass/Vol] 2.1 mg/dL Normal 1.6-2.6 [facility] Comment on above: Order Comment: Speci men Type: BLOOD SPECIMENOrdering Facility: [facility] Address: [address] [place] [address] Performed By: #### 2 4321-2, 77057-1 ####[facility] LABORATORYCLIA [id number] [address] THERAPY NTon 10-27-2023 THERAPY NT Normal [facility] THERAPY NT Normal [facility] aPTT PPPon 10-27-2023 aPTT Coag (PPP) [Time] 41.2 s High 23.0-32.4 [facility] Comment on above: Order Comment: Speci men Type: BLOOD SPECIMENOrdering Facility: [facility] Address: [address] [place], [place] [id number] Performed By: #### 1 4979-9 ####[facility] LABORATORYCLIA [id number] [address] aPTT Coag (PPP) [Time] 52.0 s High 23.0-32.4 [facility] Comment on above: Order Comment: Speci men Type: BLOOD SPECIMENOrdering Facility: [facility] Address: [address] [place], [place] [address] Performed By: #### 1 4979-9 ####[facility] LABORATORYCLIA [id number] [address] aPTT Coag (PPP) [Time] 105.6 s High 23.0-32.4 [facility] Comment on above: Order Comment: Speci men Type: BLOOD SPECIMENOrdering Facility: [facility] Address: [address] [place] [address] Performed By: #### 1 4979-9 ####[facility] LABORATORYCLIA [id number] [place] [address] [place] Basic metabolic 2000 panelon 10-26-2023 Anion gap [Moles/Vol] 8 mmol/L Normal 5-16 [facility] Comment on above: Order Comment: Speci men Type: BLOOD SPECIMENOrdering Facility: [facility] Address: [address] [place] [address] Performed By: #### 2 4321-2, ####[facility] LABORATORYCLIA [id number] [place] [id number] [place] Calcium [Mass/Vol] 7.6 mg/dL Low 8.5-10.5 [facility] Comment on above: Order Comment: Speci men Type: BLOOD SPECIMENOrdering Facility: [facility] Address: [address] [place] [address] Performed By: #### 2 4321-2, ####[facility] LABORATORYCLIA [id number] [place] [address] [place] Chloride [Moles/Vol] 113 mmol/L High 98-107 [facility] Comment on above: Order Comment: Speci men Type: BLOOD SPECIMENOrdering Facility: [facility] Address: [address] [place] [address] Performed By: #### 2 4321-2, ####[facility] LABORATORYCLIA [id number] [place] [id number] [place] CO2 [Moles/Vol] 21 mmol/L Normal 21-32 [facility] Comment on above: Order Comment: Speci men Type: BLOOD SPECIMENOrdering Facility: [facility] Address: [address] [place] [address] Performed By: #### 2 4321-2, ####[facility] LABORATORYCLIA [id number] [place] [id number] [place] Creatinine [Mass/Vol] 3.54 mg/dL High 0.50-1.40 [facility] Comment on above: Order Comment: Speci men Type: BLOOD SPECIMENOrdering Facility: [facility] Address: [address] [place] [id number] Result Comment: Raquel ents receiving either N-Acetylcysteine (NAC) or Metamizole prior to venipuncture, may have falsely depressed results. Performed By: #### 2 4321-2, ####[facility] LABORATORYCLIA [id number] [place] [id number] [place] Creatinine and Glomerular filtration rate.predicted panel (S/P/Bld) 18 mL/min/1.73m??? Low >=60 [facility] Comment on above: Order Comment: Elizabeth riggs Type: BLOOD SPECIMENOrdering Facility: [facility] Address: [address] [place] [address] Result Comment: More mated Glomerular Filtration Rate (eGFR) is calculated using the 2020 CKD-EPI creatinine equation. This equation utilizes serum creatinine, sex, and age as parameters. The creatinine assay has traceable calibration to isotope dilution-mass spectrometry. Refer to KDIGO guidelines for clinical interpretation. In patients with unstable renal function, e.g. those with acute kidney injury, the eGFR may not accurately reflect actual GFR. Performed By: #### 2 4321-2, ####[facility] LABORATORYCLIA [id number] [place] [id number] [place] Glucose [Mass/Vol] 140 mg/dL High 70-100 [facility] Comment on above: Order Comment: Elizabeth riggs Type: BLOOD SPECIMENOrdering Facility: [facility] Address: [address] [place] [address] Result Comment: The [place] Diabetes [employer] (ADA) provides guidance for cutoff values for fasting glucose and random glucose. The ADA defines fasting as no caloric intake for at least 8 hours. Fasting plasma glucose results between 100 to 125 mg/dL indicate increased risk for diabetes (prediabetes).Fasting plasma glucose results greater than or equal to 126 mg/dL meet the criteria for diagnosis of diabetes. In the absence of unequivocal hyperglycemia, results should be confirmed by repeat testing. In a patient with classic symptoms of hyperglycemia or hyperglycemic crisis, random plasma glucose results greater than or equal to 200 mg/dL meet the criteria for diagnosis of diabetes.Reference: Standards of Medical Care in Diabetes 2016, [place] [employer]. Diabetes Care. 2016.39(Suppl 1).Results may be falsely elevated after the administration of Sulfapyridine.Results may be falsely depressed after the administration of Sulfasalazine. Performed By: #### 2 4321-2, ####[facility] LABORATORYCLIA [id number] [place] [id number] [place] Potassium [Moles/Vol] 3.8 mmol/L Normal 3.5-5.1 [facility] Comment on above: Order Comment: Sydnii keely Type: BLOOD SPECIMENOrdering Facility: [facility] Address: [address] [place] [address] Performed By: #### 2 432-2, ####[facility] LABORATORYCLIA [id number] [place] [id number] [place] Sodium [Moles/Vol] 142 mmol/L Normal 136-145 [facility] Comment on above: Order Comment: Sydnii keely Type: BLOOD SPECIMENOrdering Facility: [facility] Address: [address] [place] [address] Performed By: #### 2 432-2, ####[facility] LABORATORYCLIA [id number] [place] [id number] [place] Urea nitrogen [Mass/Vol] 122 mg/dL High 7-26 [facility] Comment on above: Order Comment: Elizabeth riggs Type: BLOOD SPECIMENOrdering Facility: [facility] Address: [address] [place] [address] Performed By: #### 2 432-2, ####[facility] LABORATORYCLIA [id number] [place] [id number] [place] CASE MGT INIT ASSESon 2023 CASE MGT INIT ASSES Normal [facility] CBC panel Auto (Bld)on 10-26 Erythrocyte distribution width (RBC) [Ratio] 16.0 % High 11.5-15.0 [facility] Comment on above: Order Comment: Speci men Type: BLOOD SPECIMENOrdering Facility: [facility] Address: [address] [place] [address] Performed By: #### 5 8410-2 ####[facility] LABORATORYCLIA [id number] [address] Hematocrit (Bld) [Volume fraction] 24.5 % Low 39.0-51.0 [facility] Comment on above: Order Comment: Speci men Type: BLOOD SPECIMENOrdering Facility: [facility] Address: [address] [place] [address] Performed By: #### 5 8410-2 ####[facility] LABORATORYCLIA [id number] [address] OF [facility] Hemoglobin (Bld) [Mass/Vol] 7.7 g/dL Low 13.0-17.0 [facility] Comment on above: Order Comment: Speci men Type: BLOOD SPECIMENOrdering Facility: [facility] Address: [address] [place] [address] Performed By: #### 5 8410-2 ####[facility] LABORATORYCLIA [id number] [address] MCH (RBC) [Entitic mass] 29.3 pg Normal 26.0-34.0 [facility] Comment on above: Order Comment: Speci men Type: BLOOD SPECIMENOrdering Facility: [facility] Address: [address] [place] [address] Performed By: #### 5 8410-2 ####[facility] LABORATORYCLIA [id number] [address] [place] MCHC (RBC) [Mass/Vol] 31.4 g/dL Normal 30.5-36.0 [facility] Comment on above: Order Comment: Speci men Type: BLOOD SPECIMENOrdering Facility: [facility] Address: [address] [place] [address] Performed By: #### 5 8410-2 ####[facility] LABORATORYCLIA [id number] [place] [address] [place] MCV (RBC) [Entitic vol] 93.2 fL Normal 80.0-100.0 [facility] Comment on above: Order Comment: Speci men Type: BLOOD SPECIMENOrdering Facility: [facility] Address: [address] [place] [address] Performed By: #### 5 8410-2 ####[facility] LABORATORYCLIA [id number] [place] [address] [place] Nucleated RBC (Bld) [#/Vol] 0.58 10*3/uL High <0.01 [facility] Comment on above: Order Comment: Speci men Type: BLOOD SPECIMENOrdering Facility: [facility] Address: [address] [place] [address] Performed By: #### 5 8410-2 ####[facility] LABORATORYCLIA [id number] [address] [place] Platelet mean volume (Bld) [Entitic vol] 10.7 fL Normal 9.0-12.7 [facility] Comment on above: Order Comment: Speci men Type: BLOOD SPECIMENOrdering Facility: [facility] Address: [address] [place] [address] Performed By: #### 5 8410-2 ####[facility] LABORATORYCLIA [id number] [place] [address] [place] Platelets (Bld) [#/Vol] 158 10*3/uL Normal 150-400 [facility] Comment on above: Order Comment: Speci men Type: BLOOD SPECIMENOrdering Facility: [facility] Address: [address] [place] [address] Performed By: #### 5 8410-2 ####[facility] LABORATORYCLIA [id number] [place] [address] [place] RBC (Bld) [#/Vol] 2.63 10*6/uL Low 4.20-6.00 [facility] Comment on above: Order Comment: Speci men Type: BLOOD SPECIMENOrdering Facility: [facility] Address: [address] [place] [address] Performed By: #### 5 8410-2 ####[facility] LABORATORYCLIA [id number] [place] [id number] [facility] [place] WBC (Bld) [#/Vol] 8.31 10*3/uL Normal 3.70-11.00 [facility] Comment on above: Order Comment: Speci men Type: BLOOD SPECIMENOrdering Facility: [facility] Address: [address] [place] [address] Performed By: #### 5 8410-2 ####[facility] LABORATORYCLIA [id number] [place] [id number] [facility] Comprehensive metabolic 2000 panelon 10-26-2023 Albumin [Mass/Vol] 2.4 g/dL Low 3.2-5.0 [facility] Comment on above: Order Comment: Speci men Type: BLOOD SPECIMENOrdering Facility: [facility] Address: [address] [place] [address] Performed By: #### 2 4323-8, 5195-3, 17685-9, 04980-2 ####[facility] LABORATORYCLIA [id number] [place] [id number] [place] ALP [Catalytic activity/Vol] 94 U/L Normal 45-117 [facility] Comment on above: Order Comment: Speci men Type: BLOOD SPECIMENOrdering Facility: [facility] Address: [address] [place] [address] Performed By: #### 2 4323-8, 5195-3, 11896-8, 58610-2 ####[facility] LABORATORYCLIA [id number] [place] [phone] [place] ALT [Catalytic activity/Vol] 574 U/L High 13-61 [facility] Comment on above: Order Comment: Speci men Type: BLOOD SPECIMENOrdering Facility: [facility] Address: [address] [place] [address] Result Comment: Resu lts may be falsely depressed after the administration of Sulfasalazine and/or Sulfapyridine. Performed By: #### 2 4323-8, 5195-3, 92843-5, 58636-1 ####[facility] LABORATORYCLIA [id number] [place] [id number] [place] Anion gap [Moles/Vol] 14 mmol/L Normal 5-16 [facility] Comment on above: Order Comment: Speci men Type: BLOOD SPECIMENOrdering Facility: [facility] Address: [address] [place] [address] Performed By: #### 2 4323-8, 5195-3, 83331-8, 21826-4 ####[facility] LABORATORYCLIA [id number] [place] [id number] [place] AST [Catalytic activity/Vol] 485 U/L High 8-34 [facility] Comment on above: Order Comment: Speci men Type: BLOOD SPECIMENOrdering Facility: [facility] Address: [address] [place] [address] Result Comment: Resu lts may be falsely depressed after the administration of Sulfasalazine and/or Sulfapyridine. Performed By: #### 2 4323-8, 5195-3, 76260-9, 90016-1 ####[facility] LABORATORYCLIA [id number] [place] [phone] [place] Bilirubin [Mass/Vol] 0.8 mg/dL Normal 0.2-1.0 [facility] Comment on above: Order Comment: Speci men Type: BLOOD SPECIMENOrdering Facility: [facility] Address: [address] [place] [address] Performed By: #### 2 4323-8, 5195-3, 03654-7, 16204-9 ####[facility] LABORATORYCLIA [id number] [place] [id number] [place] Calcium [Mass/Vol] 7.9 mg/dL Low 8.5-10.5 [facility] Comment on above: Order Comment: Speci men Type: BLOOD SPECIMENOrdering Facility: [facility] Address: [address] [place] [address] Performed By: #### 2 4323-8, 5195-3, 03771-5, 59401-7 ####[facility] LABORATORYCLIA [id number] [place] [id number] [place] Chloride [Moles/Vol] 112 mmol/L High 98-107 [facility] Comment on above: Order Comment: Speci men Type: BLOOD SPECIMENOrdering Facility: [facility] Address: [address] [place] [address] Performed By: #### 2 4323-8, 5195-3, 25906-2, 17695-9 ####[facility] LABORATORYCLIA [id number] [place] [phone] [place] CO2 [Moles/Vol] 16 mmol/L Low 21-32 [facility] Comment on above: Order Comment: Speci men Type: BLOOD SPECIMENOrdering Facility: [facility] Address: [address] [place] [address] Performed By: #### 2 4323-8, 5195-3, 56436-0, 71044-1 ####[facility] LABORATORYCLIA [id number] [place] [phone] [place] Creatinine [Mass/Vol] 3.45 mg/dL High 0.50-1.40 [facility] Comment on above: Order Comment: Speci men Type: BLOOD SPECIMENOrdering Facility: [facility] Address: [address] [place] [address] Result Comment: Raquel ents receiving either N-Acetylcysteine (NAC) or Metamizole prior to venipuncture, may have falsely depressed results. Performed By: #### 2 4323-8, 5195-3, 44152-7, 91818-3 ####[facility] LABORATORYCLIA [id number] [place] [phone] [place] Creatinine and Glomerular filtration rate.predicted panel (S/P/Bld) 18 mL/min/1.73m??? Low >=60 [facility] Comment on above: Order Comment: Speci men Type: BLOOD SPECIMENOrdering Facility: [facility] Address: [address] [place] [address] Result Comment: More mated Glomerular Filtration Rate (eGFR) is calculated using the 2020 CKD-EPI creatinine equation. This equation utilizes serum creatinine, sex, and age as parameters. The creatinine assay has traceable calibration to isotope dilution-mass spectrometry. Refer to KDIGO guidelines for clinical interpretation. In patients with unstable renal function, e.g. those with acute kidney injury, the eGFR may not accurately reflect actual GFR. Performed By: #### 2 4323-8, 5195-3, 99766-9, 94829-8 ####[facility] LABORATORYCLIA [id number] [place] [id number] [place] Glucose [Mass/Vol] 144 mg/dL High 70-100 [facility] Comment on above: Order Comment: Elizabeth riggs Type: BLOOD SPECIMENOrdering Facility: [facility] Address: [address] [place] [address] Result Comment: The [place] [employer] (ADA) provides guidance for cutoff values for fasting glucose and random glucose. The ADA defines fasting as no caloric intake for at least 8 hours. Fasting plasma glucose results between 100 to 125 mg/dL indicate increased risk for diabetes (prediabetes).Fasting plasma glucose results greater than or equal to 126 mg/dL meet the criteria for diagnosis of diabetes. In the absence of unequivocal hyperglycemia, results should be confirmed by repeat testing. In a patient with classic symptoms of hyperglycemia or hyperglycemic crisis, random plasma glucose results greater than or equal to 200 mg/dL meet the criteria for diagnosis of diabetes.Reference: Standards of Medical Care in Diabetes 2016, [place] [employer]. Diabetes Care. 2016.39(Suppl 1).Results may be falsely elevated after the administration of Sulfapyridine.Results may be falsely depressed after the administration of Sulfasalazine. Performed By: #### 2 4323-8, 5195-3, 91378-3, 44489-5 ####[facility] LABORATORYCLIA [id number] [place] [id number] [place] Potassium [Moles/Vol] 3.9 mmol/L Normal 3.5-5.1 [facility] Comment on above: Order Comment: Speci men Type: BLOOD SPECIMENOrdering Facility: [facility] Address: [address] [place], [place] [address] Performed By: #### 2 4323-8, 5195-3, 75126-6, 24008-1 ####[facility] LABORATORYCLIA [id number] [place] [id number] [place] Protein [Mass/Vol] 4.7 g/dL Low 6.0-8.5 [facility] Comment on above: Order Comment: Speci men Type: BLOOD SPECIMENOrdering Facility: [facility] Address: [address] [place], [place] [address] Performed By: #### 2 4323-8, 5195-3, 04753-5, 05527-8 ####[facility] LABORATORYCLIA [id number] [place] [id number] [place] Sodium [Moles/Vol] 142 mmol/L Normal 136-145 [facility] Comment on above: Order Comment: Speci men Type: BLOOD SPECIMENOrdering Facility: [facility] Address: [address] [place], [place] [address] Performed By: #### 2 4323-8, 5195-3, 75418-0, 94267-5 ####[facility] LABORATORYCLIA [id number] [place] [id number] [place] Urea nitrogen [Mass/Vol] 128 mg/dL High 7-26 [facility] Comment on above: Order Comment: Speci men Type: BLOOD SPECIMENOrdering Facility: [facility] Address: [address] [place] [address] Performed By: #### 2 4323-8, 5195-3, 60335-0, 09081-1 ####[facility] LABORATORYCLIA [id number] [place] [id number] [place] Gas and Carbon monoxide pane l (BldV)on 10-26-2023 BASE DEFICIT, VENOUS -7 mmol/L Low -2-0 [facility] Comment on above: Order Comment: Speci men Type: VENOUS BLOOD SPECIMENOrdering Facility: [facility] Address: [address] [place] [address] Performed By: #### 2 4344-4 ####[facility] RESPIRATORY THERAPYCLIA [id number] [place] [id number] [employer] [place] Body temperature 98.6 [degF] Normal [facility] Comment on above: Order Comment: Speci men Type: VENOUS BLOOD SPECIMENOrdering Facility: [facility] Address: [address] [place] [address] Performed By: #### 2 4344-4 ####[facility] RESPIRATORY THERAPYCLIA [id number] [place] [address] [place] Calcium.ionized (Bld) [Mass/Vol] 1.06 mmol/L Low 1.08-1.30 [facility] Comment on above: Order Comment: Speci men Type: VENOUS BLOOD SPECIMENOrdering Facility: [facility] Address: [address] [place] [address] Performed By: #### 2 4344-4 ####[facility] RESPIRATORY THERAPYCLIA [id number] [address] [place] Carboxyhemoglobin (BldV) [Mass fraction] 1.1 % Normal 0.0-2.0 [facility] Comment on above: Order Comment: Speci men Type: VENOUS BLOOD SPECIMENOrdering Facility: [facility] Address: [address] [place] [address] Result Comment: Carb oxyhemoglobin Reference Range for Smokers: 2.0-8.0% Performed By: #### 2 4344-4 ####[facility] RESPIRATORY THERAPYCLIA [id number] [address] [place] CO2 (BldV) [Partial pressure] 41 mm[Hg] Low 42-55 [facility] Comment on above: Order Comment: Speci men Type: VENOUS BLOOD SPECIMENOrdering Facility: [facility] Address: [address] [place] [address] Performed By: #### 2 4344-4 ####[facility] RESPIRATORY THERAPYCLIA [id number] [address] [place] Glucose [Mass/Vol] 133 mg/dL High 60-105 [facility] Comment on above: Order Comment: Speci men Type: VENOUS BLOOD SPECIMENOrdering Facility: [facility] Address: [address] [place] [address] Performed By: #### 2 4344-4 ####[facility]AT[facility] THERAPYCLIA [id number] [place] [address] [place] HCO3 (Bld) [Moles/Vol] 19 mmol/L Low 24-28 [facility] Comment on above: Order Comment: Speci men Type: VENOUS BLOOD SPECIMENOrdering Facility: [facility] Address: [address] [place] [address] Performed By: #### 2 4344-4 ####[facility] RESPIRATORY THERAPYCLIA [id number] [place] [address] [place] Hemoglobin (Bld) [Mass/Vol] 9.2 g/dL Low 13.0-17.0 [facility] Comment on above: Order Comment: Speci men Type: VENOUS BLOOD SPECIMENOrdering Facility: [facility] Address: [address] [place] [address] Performed By: #### 2 4344-4 ####[facility] RESPIRATORY THERAPYCLIA [id number] [place] [address] [place] Lactate [Moles/Vol] 1.2 mmol/L Normal 0.5-2.2 [facility] Comment on above: Order Comment: Speci men Type: VENOUS BLOOD SPECIMENOrdering Facility: [facility] Address: [address] [place] [address] Performed By: #### 2 4344-4 ####[facility] RESPIRATORY THERAPYCLIA [id number] [place] [address] [place] Methemoglobin (Bld) [Mass fraction] 0.3 % Normal 0.0-1.5 [facility] Comment on above: Order Comment: Speci men Type: VENOUS BLOOD SPECIMENOrdering Facility: [facility] Address: [address] [place] [address] Performed By: #### 2 4344-4 ####[facility] THERAPYCLIA [id number] [address] [place] O2 THERAPY NC = Nasal Cannula Normal [facility] Comment on above: Order Comment: Speci men Type: VENOUS BLOOD SPECIMENOrdering Facility: [facility] Address: [address] [place] [address] Performed By: #### 2 4344-4 ####[facility] RESPIRATORY THERAPYCLIA [id number] [place] [address] [facility] [place] Oxygen (BldV) [Partial pressure] 44 mm[Hg] Normal 35-45 [facility] Comment on above: Order Comment: Speci men Type: VENOUS BLOOD SPECIMENOrdering Facility: [facility] Address: [address] [place] [address] Performed By: #### 2 4344-4 ####[facility] RESPIRATORY THERAPYCLIA [id number] [address] [place] Oxyhemoglobin (BldV) [Mass fraction] 72 % Normal 4-98 [facility] Comment on above: Order Comment: Speci men Type: VENOUS BLOOD SPECIMENOrdering Facility: [facility] Address: [address] [place] [address] Performed By: #### 2 4344-4 ####[facility] RESPIRATORY THERAPYCLIA [id number] [place] [address] [place] pH (BldV) 7.28 [pH] Low 7.32-7.42 [facility] Comment on above: Order Comment: Speci men Type: VENOUS BLOOD SPECIMENOrdering Facility: [facility] Address: [address] [place] [address] Performed By: #### 2 4344-4 ####[facility] RESPIRATORY THERAPYCLIA [id number] [place] [address] [place] Potassium [Moles/Vol] 3.5 mmol/L Normal 2.5-6.0 [facility] Comment on above: Order Comment: Speci men Type: VENOUS BLOOD SPECIMENOrdering Facility: [facility] Address: [address] [place] [address] Performed By: #### 2 4344-4 ####[facility] RESPIRATORY THERAPYCLIA [id number] [address] [place] Sodium [Moles/Vol] 137 mmol/L Normal 136-144 [facility] Comment on above: Order Comment: Speci men Type: VENOUS BLOOD SPECIMENOrdering Facility: [facility] Address: [address] [place] [address] Performed By: #### 2 4344-4 ####[facility] RESPIRATORY THERAPYCLIA [id number] [address] BASE DEFICIT, VENOUS -7 mmol/L Low -2-0 [facility] Comment on above: Order Comment: Speci men Type: VENOUS BLOOD SPECIMENOrdering Facility: [facility] Address: [address] [place] [address] Performed By: #### 2 4344-4 ####[facility] RESPIRATORY THERAPYCLIA [id number] [address] LABORATORYCLIA [id number] [address] Body temperature 97.52 [degF] Normal [facility] Comment on above: Order Comment: Speci men Type: VENOUS BLOOD SPECIMENOrdering Facility: [facility] Address: [address] [place] [address] Performed By: #### 2 4344-4 ####[facility] RESPIRATORY THERAPYCLIA [id number] [address] LABORATORYCLIA [id number] [address] Calcium.ionized (Bld) [Mass/Vol] 0.83 mmol/L Low 1.08-1.30 [facility] Comment on above: Order Comment: Speci men Type: VENOUS BLOOD SPECIMENOrdering Facility: [facility] Address: [address] [place] [address] Performed By: #### 2 4344-4 ####[facility] RESPIRATORY THERAPYCLIA [id number] [address] LABORATORYCLIA [id number] [place] [id number] [place] Carboxyhemoglobin (BldV) [Mass fraction] 9.7 % High 0.0-2.0 [facility] Comment on above: Order Comment: Speci men Type: VENOUS BLOOD SPECIMENOrdering Facility: [facility] Address: [address] [place] [address] Result Comment: Carb oxyhemoglobin Reference Range for Smokers: 2.0-8.0% Performed By: #### 2 4344-4 ####[facility] RESPIRATORY THERAPYCLIA [id number] [address] LABORATORYCLIA [id number] [place] [address] [place] CO2 (BldV) [Partial pressure] 18 mm[Hg] Low 42-55 [facility] Comment on above: Order Comment: Speci men Type: VENOUS BLOOD SPECIMENOrdering Facility: [facility] Address: [address] [place] [address] Performed By: #### 2 4344-4 ####[facility] RESPIRATORY THERAPYCLIA [id number] [address] LABORATORYCLIA [id number] [address] [place] CO2 adjusted to patient's actual temperature (BldV) [Partial pressure] Normal [facility] Comment on above: Order Comment: Speci men Type: VENOUS BLOOD SPECIMENOrdering Facility: [facility] Address: [address] [place] [address] Performed By: #### 2 4344-4 ####[facility] RESPIRATORY THERAPYCLIA [id number] [address] LABORATORYCLIA [id number] [place] [address] [place] Glucose [Mass/Vol] 121 mg/dL High 60-105 [facility] Comment on above: Order Comment: Speci men Type: VENOUS BLOOD SPECIMENOrdering Facility: [facility] Address: [address] [place], [place] [address] Performed By: #### 2 4344-4 ####[facility] RESPIRATORY THERAPYCLIA [id number] [place] [address] [facility] LABORATORYCLIA [id number] [place] [address] [place] HCO3 (Bld) [Moles/Vol] 14 mmol/L Low 24-28 [facility] Comment on above: Order Comment: Speci men Type: VENOUS BLOOD SPECIMENOrdering Facility: [facility] Address: [address] [place] [address] Performed By: #### 2 4344-4 ####[facility] RESPIRATORY THERAPYCLIA [id number] [place] [address] [facility] LABORATORYCLIA [id number] [place] [address] [place] Hemoglobin (Bld) [Mass/Vol] 9.9 g/dL Low 13.0-17.0 [facility] Comment on above: Order Comment: Speci men Type: VENOUS BLOOD SPECIMENOrdering Facility: [facility] Address: [address] [place] [address] Performed By: #### 2 4344-4 ####[facility] RESPIRATORY THERAPYCLIA [id number] [place] [address] [facility] LABORATORYCLIA [id number] [place] [address] [place] Lactate [Moles/Vol] 2.1 mmol/L Normal 0.5-2.2 [facility] Comment on above: Order Comment: Speci men Type: VENOUS BLOOD SPECIMENOrdering Facility: [facility] Address: [address] [place] [address] Performed By: #### 2 4344-4 ####[facility] RESPIRATORY THERAPYCLIA [id number] [place] [address] [facility] LABORATORYCLIA [id number] [place] [id number] [place] LITERS 2 Liters/min Normal [facility] Comment on above: Order Comment: Speci men Type: VENOUS BLOOD SPECIMENOrdering Facility: [facility] Address: [address] [place] [id number] Performed By: #### 2 4344-4 ####[facility] RESPIRATORY THERAPYCLIA [id number] [place] [address] [facility] LABORATORYCLIA [id number] [address] Methemoglobin (Bld) [Mass fraction] 0.0 % Normal 0.0-1.5 [facility] Comment on above: Order Comment: Speci men Type: VENOUS BLOOD SPECIMENOrdering Facility: [facility] Address: [facility] [place] [address] Performed By: #### 2 4344-4 ####[facility] RESPIRATORY THERAPYCLIA [id number] [address] LABORATORYCLIA [id number] [address] O2 THERAPY NC = Nasal Cannula Normal [facility] Comment on above: Order Comment: Speci men Type: VENOUS BLOOD SPECIMENOrdering Facility: [facility] Address: [address] [place] [address] Performed By: #### 2 4344-4 ####[facility] RESPIRATORY THERAPYCLIA [id number] [place] [address] [facility] LABORATORYCLIA [id number] [address] [place] Oxygen (BldV) [Partial pressure] 152 mm[Hg] High 35-45 [facility] Comment on above: Order Comment: Speci men Type: VENOUS BLOOD SPECIMENOrdering Facility: [facility] Address: [address] [place] [id number] Performed By: #### 2 4344-4 ####[facility] RESPIRATORY THERAPYCLIA [id number] [address] LABORATORYCLIA [id number] [address] Oxygen adjusted to patient's actual temperature (BldV) [Partial pressure] Normal [facility] Comment on above: Order Comment: Speci men Type: VENOUS BLOOD SPECIMENOrdering Facility: [facility] Address: [address] [place] [address] Performed By: #### 2 4344-4 ####[facility] RESPIRATORY THERAPYCLIA [id number] [address] LABORATORYCLIA [id number] [address] Oxyhemoglobin (BldV) [Mass fraction] 88 % Normal [facility] Comment on above: Order Comment: Speci men Type: VENOUS BLOOD SPECIMENOrdering Facility: [facility] Address: [address] [place] [address] Performed By: #### 2 4344-4 ####[facility] RESPIRATORY THERAPYCLIA [id number] [address] LABORATORYCLIA [id number] [place] [address] [place] pH (BldV) 7.52 [pH] High 7.32-7.42 [facility] Comment on above: Order Comment: Speci men Type: VENOUS BLOOD SPECIMENOrdering Facility: [facility] Address: [address] [place] [address] Performed By: #### 2 4344-4 ####[facility] RESPIRATORY THERAPYCLIA [id number] [address] LABORATORYCLIA [id number] [address] OF [facility] pH adjusted to patient's actual temperature (BldV) Normal [facility] Comment on above: Order Comment: Speci men Type: VENOUS BLOOD SPECIMENOrdering Facility: [facility] Address: [address] [place] [address] Performed By: #### 2 4344-4 ####[facility] RESPIRATORY THERAPYCLIA [id number] [address] LABORATORYCLIA [id number] [address] STATES OF [facility] Potassium [Moles/Vol] 4.0 mmol/L Normal 2.5-6.0 [facility] Comment on above: Order Comment: Speci men Type: VENOUS BLOOD SPECIMENOrdering Facility: [facility] Address: [address] [place] [address] Performed By: #### 2 4344-4 ####[facility] RESPIRATORY THERAPYIA [id number] [address] LABORATORYCLIA [id number] [address] OF [facility] Sodium [Moles/Vol] 136 mmol/L Normal 136-144 [facility] Comment on above: Order Comment: Specalcides riggs Type: VENOUS BLOOD SPECIMENOrdering Facility: [facility] Address: [address] [place] [address] Performed By: #### 2 4344-4 ####[facility] RESPIRATORY [facility] [id number] [address] LABORATORYCLIA [id number] [address] HAV IgM Ser Qlon 10-26-2023 HAV IgM Ql (S) Non-Reactive Normal Nonreactive, [employer] [facility] Comment on above: Order Comment: Speci keely Type: BLOOD SPECIMENOrdering Facility: [facility] Address: [address] [place] [address] Result Comment: Resu lts were obtained with the [employer] IM IgM assay. Values obtained with different manufactures' assay methods may not be used interchangeably.Assay performance characteristics have not been established for immunocompromised or immunosuppressed patients, cord blood, or patients less than 2 years of age.These results may be falsely depressed in the presence of Biotin concentrations above 500 ng/mL. Performed By: #### 2 4323-8, 5195-3, 39937-8, 65170-3 ####[facility] LABORATORYCLIA [id number] [address] HBV core IgM Ser Qlon 2023 HBV core IgM Ql (S) Non-Reactive Normal Nonreact juan antonio, [employer] [facility] Comment on above: Order Comment: Speci men Type: BLOOD SPECIMENOrdering Facility: [facility] Address: [address] [place] [address] Result Comment: Resu lts were obtained with the [employer] IM IgM assay. Values obtained with different manufactures' assay methods may not be used interchangeably. Performed By: #### 2 4323-8, 5195-3, 03784-4, 84628-4 ####[facility] LABORATORYCLIA [id number] [place] [address] [place] HBV surface Ag Ser Qlon 10-14 HBV surface Ag Ql (S) Non-Reactive Normal Equivo kamla, Nonreactive [facility] Comment on above: Order Comment: Speci [facility] Type: BLOOD SPECIMENOrdering Facility: [facility] Address: [address] [place] [address] Result Comment: Resu lts were obtained with the [employer] IM IgM assay. Values obtained with different manufactures' assay methods may not be used interchangeably. Performed By: #### 2 4323-8, 5195-3, 00285-3, 60292-4 ####[facility] LABORATORYCLIA [id number] [place] [address] [place] HCV RNA SerPl CHER+probe-aCnc on 10-26-2023 HCV RNA CHER+probe Qn Not detected Normal HCV RNA not detected by PCR. [facility] Comment on above: Order Comment: Speci men Type: BLOOD SPECIMENOrdering Facility: [facility] Address: [address] [place] [address] Performed By: #### 1 1011-4 ####[facility] LABCLIA [id number] [place] [address] [place] Magnesium SerPl-mCncon 10-26 Magnesium [Mass/Vol] 1.5 mg/dL Low 1.6-2.6 [facility] Comment on above: Order Comment: Speci [facility] Type: BLOOD SPECIMENOrdering Facility: [facility] Address: [address] [place] [id number] Performed By: #### 2 4321-2, 75147-7 ####[facility] LABORATORYCLIA [id number] [place] [id number] [facility] THERAPY NTon 10-26-2023 THERAPY NT Normal [facility] aPTT PPPon 10-26-2023 aPTT Coag (PPP) [Time] 34.8 s High 23.0-32.4 [facility] Comment on above: Order Comment: Speci men Type: BLOOD SPECIMENOrdering Facility: [facility] Address: [address] [place] [address] Performed By: #### 1 4979-9 ####[facility] LABORATORYCLIA [id number] [address] aPTT Coag (PPP) [Time] 51.4 s High 23.0-32.4 [facility] Comment on above: Order Comment: Speci men Type: BLOOD SPECIMENOrdering Facility: [facility] Address: [address] [place] [address] Performed By: #### 1 4979-9 ####[facility] LABORATORYCLIA [id number] [address] aPTT Coag (PPP) [Time] 34.7 s High 23.0-32.4 [facility] Comment on above: Order Comment: Speci men Type: BLOOD SPECIMENOrdering Facility: [facility] Address: [address] [place] [address] Performed By: #### 1 4979-9 ####[facility] LABORATORYCLIA [id number] [place] [id number] [employer] [place] CBC panel Auto (Bld)on 10-25 Erythrocyte distribution width (RBC) [Ratio] 15.9 % High 11.5-15.0 [facility] Comment on above: Order Comment: Speci men Type: BLOOD SPECIMENOrdering Facility: [facility] Address: [address] [place] [address] Performed By: #### 5 8410-2 ####[facility] LABORATORYCLIA [id number] [address] [place] Hematocrit (Bld) [Volume fraction] 28.4 % Low 39.0-51.0 [facility] [facility] Comment on above: Order Comment: Speci men Type: BLOOD SPECIMENOrdering Facility: [facility] Address: [address] [place] [address] Performed By: #### 5 8410-2 ####[facility] LABORATORYCLIA [id number] [place] [address] [place] Hemoglobin (Bld) [Mass/Vol] 9.0 g/dL Low 13.0-17.0 [facility] Comment on above: Order Comment: Speci men Type: BLOOD SPECIMENOrdering Facility: [facility] Address: [address] [place] [address] Performed By: #### 5 8410-2 ####[facility] LABORATORYCLIA [id number] [address] OF [facility] MCH (RBC) [Entitic mass] 29.4 pg Normal 26.0-34.0 [facility] Comment on above: Order Comment: Speci men Type: BLOOD SPECIMENOrdering Facility: [facility] Address: [address] [place] [address] Performed By: #### 5 8410-2 ####[facility] LABORATORYCLIA [id number] [place] [address] [place] MCHC (RBC) [Mass/Vol] 31.7 g/dL Normal 30.5-36.0 [facility] Comment on above: Order Comment: Speci men Type: BLOOD SPECIMENOrdering Facility: [facility] Address: [address] [place] [address] Performed By: #### 5 8410-2 ####[facility] LABORATORYCLIA [id number] [address] [place] MCV (RBC) [Entitic vol] 92.8 fL Normal 80.0-100.0 [facility] Comment on above: Order Comment: Speci men Type: BLOOD SPECIMENOrdering Facility: [facility] Address: [address] [place] [address] Performed By: #### 5 8410-2 ####[facility] LABORATORYCLIA [id number] [place] [id number] [place] Nucleated RBC (Bld) [#/Vol] 0.99 10*3/uL High <0.01 [facility] Comment on above: Order Comment: Speci men Type: BLOOD SPECIMENOrdering Facility: [facility] Address: [address] [place] [address] Performed By: #### 5 8410-2 ####[facility] LABORATORYCLIA [id number] [place] [address] [place] Platelet mean volume (Bld) [Entitic vol] 10.9 fL Normal 9.0-12.7 [facility] Comment on above: Order Comment: Speci men Type: BLOOD SPECIMENOrdering Facility: [facility] Address: [address] [place] [address] Performed By: #### 5 8410-2 ####[facility] LABORATORYCLIA [id number] [place] [address] [place] Platelets (Bld) [#/Vol] 211 10*3/uL Normal 150-400 [facility] Comment on above: Order Comment: Speci men Type: BLOOD SPECIMENOrdering Facility: [facility] Address: [address] [place] [address] Performed By: #### 5 8410-2 ####[facility] LABORATORYCLIA [id number] [place] [address] [place] RBC (Bld) [#/Vol] 3.06 10*6/uL Low 4.20-6.00 [facility] Comment on above: Order Comment: Speci men Type: BLOOD SPECIMENOrdering Facility: [facility] Address: [address] [place] [address] Performed By: #### 5 8410-2 ####[facility] LABORATORYCLIA [id number] [place] [address] [place] WBC (Bld) [#/Vol] 11.27 10*3/uL High 3.70-11.00 [facility] Comment on above: Order Comment: Speci men Type: BLOOD SPECIMENOrdering Facility: [facility] Address: [address] [place] [address] Performed By: #### 5 8410-2 ####[facility] LABORATORYCLIA [id number] [place] [id number] [facility] Comprehensive metabolic 2000 panelon 10-25-2023 Albumin [Mass/Vol] 2.7 g/dL Low 3.2-5.0 [facility] Comment on above: Order Comment: Speci men Type: BLOOD SPECIMENOrdering Facility: [facility] Address: [address] [place] [address] Performed By: #### 3 3959-8, 57794-3, B ####[facility] LABORATORYCLIA [id number] [place] [id number] [employer] [place] ALP [Catalytic activity/Vol] 107 U/L Normal 45-117 [facility] Comment on above: Order Comment: Speci men Type: BLOOD SPECIMENOrdering Facility: [facility] Address: [address] [place] [address] Performed By: #### 3 3959-8, 61568-3, B ####[facility] LABORATORYCLIA [id number] [place] [id number] [employer] [place] ALT [Catalytic activity/Vol] 706 U/L High 13-61 [facility] Comment on above: Order Comment: Speci men Type: BLOOD SPECIMENOrdering Facility: [facility] Address: [address] [place] [address] Result Comment: Resu lts may be falsely depressed after the administration of Sulfasalazine and/or Sulfapyridine. Performed By: #### 3 3959-8, 82954-6, B ####[facility] LABORATORYCLIA [id number] [place] [id number] [place] Anion gap [Moles/Vol] 12 mmol/L Normal 5-16 [facility] Comment on above: Order Comment: Speci men Type: BLOOD SPECIMENOrdering Facility: [facility] Address: [address] [place] [address] Performed By: #### 3 3959-8, 64138-0, B ####[facility] LABORATORYCLIA [id number] [place] [address] [place] AST [Catalytic activity/Vol] 726 U/L High 8-34 [facility] Comment on above: Order Comment: Speci men Type: BLOOD SPECIMENOrdering Facility: [facility] Address: [address] [place] [address] Result Comment: Resu lts may be falsely depressed after the administration of Sulfasalazine and/or Sulfapyridine. Performed By: #### 3 3959-8, 20697-9, B ####[facility] LABORATORYCLIA [id number] [place] [address] [place] Bilirubin [Mass/Vol] 1.3 mg/dL High 0.2-1.0 [facility] Comment on above: Order Comment: Speci men Type: BLOOD SPECIMENOrdering Facility: [facility] Address: [address] [place] [address] Performed By: #### 3 3959-8, 48371-2, B ####[facility] LABORATORYCLIA [id number] [place] [address] [place] Calcium [Mass/Vol] 8.3 mg/dL Low 8.5-10.5 [facility] Comment on above: Order Comment: Speci men Type: BLOOD SPECIMENOrdering Facility: [facility] Address: [address] [place] [address] Performed By: #### 3 3959-8, 13895-6, B ####[facility] LABORATORYCLIA [id number] [place] [id number] [place] Chloride [Moles/Vol] 112 mmol/L High 98-107 [facility] Comment on above: Order Comment: Speci men Type: BLOOD SPECIMENOrdering Facility: [facility] Address: [address] [place] [address] Performed By: #### 3 3959-8, 10010-6, [facility] ####[facility] LABORATORYCLIA [id number] [place] [id number] [place] CO2 [Moles/Vol] 19 mmol/L Low 21-32 [facility] Comment on above: Order Comment: Speci men Type: BLOOD SPECIMENOrdering Facility: [facility] Address: [address] [place] [address] Performed By: #### 3 3959-8, 67887-7, [facility] ####[facility] LABORATORYCLIA [id number] [place] [id number] [place] Creatinine [Mass/Vol] 3.74 mg/dL High 0.50-1.40 [facility] Comment on above: Order Comment: Speci men Type: BLOOD SPECIMENOrdering Facility: [facility] Address: [address] [place] [address] Result Comment: Raquel ents receiving either N-Acetylcysteine (NAC) or Metamizole prior to venipuncture, may have falsely depressed results. Performed By: #### 3 3959-8, 60417-2, [facility] ####[facility] LABORATORYCLIA [id number] [address] Creatinine and Glomerular filtration rate.predicted panel (S/P/Bld) 17 mL/min/1.73m??? Low >=60 [facility] Comment on above: Order Comment: Speci men Type: BLOOD SPECIMENOrdering Facility: [facility] Address: [address] [place] [address] Result Comment: More mated Glomerular Filtration Rate (eGFR) is calculated using the 2020 CKD-EPI creatinine equation. This equation utilizes serum creatinine, sex, and age as parameters. The creatinine assay has traceable calibration to isotope dilution-mass spectrometry. Refer to KDIGO guidelines for clinical interpretation. In patients with unstable renal function, e.g. those with acute kidney injury, the eGFR may not accurately reflect actual GFR. Performed By: #### 3 3959-8, 66811-2, [facility] ####[facility] LABORATORYCLIA [id number] [place] [phone] [place] Glucose [Mass/Vol] 150 mg/dL High 70-100 [facility] Comment on above: Order Comment: Elizabeth riggs Type: BLOOD SPECIMENOrdering Facility: [facility] Address: [address] [place] [address] Result Comment: The [place] Diabetes Association (ADA) provides guidance for cutoff values for fasting glucose and random glucose. The ADA defines fasting as no caloric intake for at least 8 hours. Fasting plasma glucose results between 100 to 125 mg/dL indicate increased risk for diabetes (prediabetes).Fasting plasma glucose results greater than or equal to 126 mg/dL meet the criteria for diagnosis of diabetes. In the absence of unequivocal hyperglycemia, results should be confirmed by repeat testing. In a patient with classic symptoms of hyperglycemia or hyperglycemic crisis, random plasma glucose results greater than or equal to 200 mg/dL meet the criteria for diagnosis of diabetes.Reference: Standards of Medical Care in Diabetes 2016, [place] [employer]. Diabetes Care. 2016.39(Suppl 1).Results may be falsely elevated after the administration of Sulfapyridine.Results may be falsely depressed after the administration of Sulfasalazine. Performed By: #### 3 3959-8, 81104-7, [facility] ####[facility] LABORATORYCLIA [id number] [place] [id number] [place] Potassium [Moles/Vol] 4.0 mmol/L Normal 3.5-5.1 [facility] Comment on above: Order Comment: Sydnii keely Type: BLOOD SPECIMENOrdering Facility: [facility] Address: [address] [place] [address] Performed By: #### 3 3959-8, 51888-8, [facility] ####[facility] LABORATORYCLIA [id number] [place] [phone] [place] Protein [Mass/Vol] 5.5 g/dL Low 6.0-8.5 [facility] Comment on above: Order Comment: Elizabeth keely Type: BLOOD SPECIMENOrdering Facility: [facility] Address: [address] [place] [id number] Performed By: #### 3 3959-8, 99137-6, B ####[facility] LABORATORYCLIA [id number] [place] [phone] [place] [facility] Sodium [Moles/Vol] 143 mmol/L Normal 136-145 [facility] Comment on above: Order Comment: Speci men Type: BLOOD SPECIMENOrdering Facility: [facility] Address: [address] [place] [address] [place] [address] Performed By: #### 3 3959-8, 06115-9, B ####[facility] LABORATORYCLIA [id number] [place] [id number] [place] Urea nitrogen [Mass/Vol] 130 mg/dL High 7-26 [facility] Comment on above: Order Comment: Speci men Type: BLOOD SPECIMENOrdering Facility: [facility] Address: [address] [place] [address] Performed By: #### 3 3959-8, 55785-4, B ####[facility] LABORATORYCLIA [id number] [place] [phone] [place] HISTORY PHYSICALon HISTORY PHYSICAL Normal [facility] KETONES/ACETONE/BHBon 2023 Beta hydroxybutyrate [Moles/Vol] 0.94 mmol/L High 0.02-0.27 [facility] Comment on above: Order Comment: Speci men Type: BLOOD SPECIMENOrdering Facility: [facility] Address: [address] [place] [address] Result Comment: Bloo d ketone levels will vary depending on several factors (for example, food intake, alcohol intake and conditions such as ketoacidosis). Patients should be fasting 12 hours prior to collection.Patient samples with high levels of M-Protein (i.e. Gammopathy) may affect the accuracy of this assay. Performed By: #### 3 3959-8, 88841-3, B ####[facility] LABORATORYCLIA [id number] [place] [id number] [place] Lactate (Bld) [Moles/Vol]on 10-25-2023 Lactate [Moles/Vol] 2.0 mmol/L Normal 0.4-2.0 [facility] Comment on above: Order Comment: Elizabeth riggs Type: BLOOD SPECIMENOrdering Facility: [facility] Address: [address] [place] [address] Performed By: #### 3 2693-4 ####[facility] LABORATORYCLIA [id number] [place] [phone] [facility] PT panel Coag (PPP)on 2023 INR Coag (PPP) [Relative time] 2.0 {INR} High 0.9-1.3 [facility] Comment on above: Order Comment: Elizabeth riggs Type: BLOOD SPECIMENOrdering Facility: [facility] Address: [address] [place] [address] Result Comment: Judy min K Antagonist (VKA) Therapeutic Range: INR 2 to 3 (Target INR of 2.5)Note: For patients treated with VKA drugs, such as warfarin, the [place] [employer] 2012 Guideline recommends a therapeutic INR range of 2 to 3 (target INR of 2.5). This recommendation includes high-risk patients with antiphospholipid syndrome with previous arterial or venous thromboembolism, current-generation mechanical or bioprosthetic aortic heart valve replacement.Note: Patients with mechanical aortic valve replacement and additional risk factors for thromboembolic events (atrial fibrillation, previous thromboembolism, LV dysfunction, hypercoagulable conditions) or an older generation mechanical AVR (i.e., ball in-Cage) or any mechanical MVR should have a INR therapeutic range of 2.5 to 3.5 (target INR of 3).Ashly EVANS, et al. Chest 2012, 141:7S-47SNishimyg RA, et al. JACC 2017, 70: 252-289 Performed By: #### 1 4979-9, 50565-5 ####[facility] LABORATORYCLIA [id number] [place] [id number] [employer] [place] PT Coag (PPP) [Time] 20.0 s High 9.7-13.0 [facility] Comment on above: Order Comment: Elizabeth riggs Type: BLOOD SPECIMENOrdering Facility: [facility] Address: [address] [place] [id number] Performed By: #### 1 4979-9, 41694-0 ####[facility] LABORATORYCLIA [id number] [place] [phone] [employer] [facility] Procalcitonin SerPl-mCncon 0 10-25-2023 Procalcitonin [Mass/Vol] 0.14 ng/mL Normal 0.00-0.50 [facility] Comment on above: Order Comment: Elizabeth riggs Type: BLOOD SPECIMENOrdering Facility: [facility] Address: [address] [place] [address] Result Comment: PCT Concentration InterpretationPCT <=0.1 ng/mL:Normal range for healthy adultsPCT >0.1 ng/mL and <0.5 ng/mL:Systemic infection (sepsis) is possible and may require antibiotic treatment, but other conditions are known to elevate PCT as well.PCT >0.5 ng/mL:Should be considered at risk for developing severe sepsis or septic shock.PCT >2.0 ng/mL:Important systemic inflammatory response. Almost exclusively indicates episode of severe bacterial sepsis or septic shock. Performed By: #### 3 3959-8, 12619-0, [facility] ####[facility] LABORATORYCLIA [id number] [address] aPTT PPPon 10-25-2023 aPTT Coag (PPP) [Time] 30.3 s Normal 23.0-32.4 [facility] Comment on above: Order Comment: Elizabeth riggs Type: BLOOD SPECIMENOrdering Facility: [facility] Address: [address] [place] [id number] Performed By: #### 1 4979-9, 32389-6 ####[facility] LABORATORYCLIA [id number] [place] [phone] [employer] [facility] LABORATORYOrdered By: Bijal Grossman on 09-04-2023 Blood Glucose Testing Reason Routine (09/04/23 9:37 AM) [employer] Work Phone: Glucose [Mass/Vol] 76 mg/dL [employer] Work Phone: LABORATORYOrdered By: Fer Griffiths on 09-04-2023 Blood Glucose Interventions Retest (09/04/23 6:30 AM) [employer] Work Phone: Glucose [Mass/Vol] 85 mg/dL Normal 82 - 115 mg/dL [employer] Work Phone: Blood Glucose Interventions Administered food/juice (09/04/23 6:01 AM) [employer] Work Phone: Blood Glucose Testing Reason Routine (09/04/23 6:01 AM) [employer] Phone: Glucose [Mass/Vol] 76 mg/dL Low 82 - 115 mg/dL [employer] Phone: LABORATORYOrdered By: Dorothy Torres on 09-03-2023 Blood Glucose Testing Reason Routine (09/03/23 4:58 PM) [employer] Work Phone: Glucose [Mass/Vol] 105 mg/dL Normal 82 - 115 mg/dL [employer] Work Phone: .Auto Diffon 09-01-2023 Basophil, Absolute 0.1 10 3/mcL Normal 0.0-0.3 [facility] ([place]) Comment on above: Performed By: #### A DIFF, CBC, ANEU, CMP, GFR #### [address] [address] Basophils/100 WBC (Bld) 1.2 % Normal 0.0-2.5 [facility] ([place]) Comment on above: Performed By: #### A DIFF, CBC, ANEU, CMP, GFR #### [address] [address] Eosinophil, Absolute 0.2 10 3/mcL Normal 0.0-0.7 [facility] ([place]) Comment on above: Performed By: #### A DIFF, CBC, ANEU, CMP, GFR #### [address] [address] Eosinophils/100 WBC (Bld) 3.4 % Normal 0.0-6.0 [facility] ([place]) Comment on above: Performed By: #### A DIFF, CBC, ANEU, CMP, GFR #### [address] [address] Lymphocyte, Absolute 0.7 10 3/mcL Low 0.9-4.3 [facility] ([place] Comment on above: Performed By: #### A DIFF, CBC, ANEU, CMP, GFR #### [address] [address] Lymphocytes/100 WBC (Bld) 12.0 % Low 20.0-40.0 [facility] ([place]) Comment on above: Performed By: #### A DIFF, CBC, ANEU, CMP, GFR #### [address] [address] Monocyte, Absolute 0.7 10 3/mcL Normal 0.1-1.4 [facility] ([place] Comment on above: Performed By: #### A DIFF, CBC, ANEU, CMP, GFR #### [address] [address] Monocytes/100 WBC (Bld) 12.6 % Normal 2.0-13.0 [facility] ([place]) Comment on above: Performed By: #### A DIFF, CBC, ANEU, CMP, GFR #### [address] [address] Neutrophils/100 WBC (Bld) 70.8 % Normal 50.0-75.0 [facility] ([place]) Comment on above: Performed By: #### A DIFF, CBC, ANEU, CMP, GFR #### [address] [address] .GFRon 09-01-2023 GFR 23 ml/min/1.73sqm Normal [facility] ([place]) Comment on above: Result Comment: GFR Population mean for , Non- Americans Ages 20-29 = 116 mL/min/1.73 sq.m. Ages 30-39 = 107 mL/min/1.73 sq.m. Ages 40-49 = 99 mL/min/1.73 sq.m. Ages 50-59 = 93 mL/min/1.73 sq.m. Ages 60-69 = 85 mL/min/1.73 sq.m. Ages 70+ = 75 mL/min/1.73 sq.m. Chronic Kidney Disease: Less than 60 mL/min/1.73 square meters End Stage Renal Disease: Less than 15 mL/min/1.73 square meters Performed By: #### C BC, ANEU, ADIFF, GFR, BMP #### [place] [address] GFR Non- 19 ml/min/1.73sqm Normal [facility] ([place]) Comment on above: Result Comment: GFR Population mean for , Non- Americans Ages 20-29 = 116 mL/min/1.73 sq.m. Ages 30-39 = 107 mL/min/1.73 sq.m. Ages 40-49 = 99 mL/min/1.73 sq.m. Ages 50-59 = 93 mL/min/1.73 sq.m. Ages 60-69 = 85 mL/min/1.73 sq.m. Ages 70+ = 75 mL/min/1.73 sq.m. Chronic Kidney Disease: Less than 60 mL/min/1.73 square meters End Stage Renal Disease: Less than 15 mL/min/1.73 square meters Performed By: #### C BC, ANEU, ADIFF, GFR, BMP #### [address] [address] .NEUABSon 09-01-2023 Neutrophil, Absolute 4.0 10 3/mcL Normal 2.3-8.1 [facility] ([place]) Comment on above: Performed By: #### A DIFF, CBC, ANEU, CMP, GFR #### [address] [address] CBCon 09-01-2023 Erythrocyte distribution width (RBC) [Ratio] 15.0 % Normal 11.5-15.5 [facility] ([place]) Comment on above: Performed By: #### A DIFF, CBC, ANEU, CMP, GFR #### [address] [address] Hematocrit (Bld) [Volume fraction] 26.0 % Low 40.0-52.0 [facility] ([place]) Comment on above: Performed By: #### A DIFF, CBC, ANEU, CMP, GFR #### [place] [address] Hgb 8.2 G/dL Low 13.0-17.5 [facility] ([place] Comment on above: Performed By: #### A DIFF, CBC, ANEU, CMP, GFR #### [place] [address] MCH (RBC) [Entitic mass] 29.4 pg Normal 27.0-33.0 [facility] ([place]) Comment on above: Performed By: #### A DIFF, CBC, ANEU, CMP, GFR #### [place] [address] MCHC 31.7 G/dL Low 32.0-36.0 [facility] ([place] Comment on above: Performed By: #### A DIFF, CBC, ANEU, CMP, GFR #### [place] [address] MCV (RBC) [Entitic vol] 92.9 fL Normal 81.0-100.0 [facility] ([place]) Comment on above: Performed By: #### A DIFF, CBC, ANEU, CMP, GFR #### [place] [address] Platelet 214 10 3/mcL Normal 150-450 [facility] ([place] Comment on above: Performed By: #### A DIFF, CBC, ANEU, CMP, GFR #### [place] [address] Platelet mean volume (Bld) [Entitic vol] 7.9 fL Normal 6.4-10.5 [facility] ([place]) Comment on above: Performed By: #### A DIFF, CBC, ANEU, CMP, GFR #### [place] [address] RBC 2.80 10 6/mcL Low 4.50-6.00 [facility] ([place] Comment on above: Performed By: #### A DIFF, CBC, ANEU, CMP, GFR #### [address] [address] WBC 5.7 10 3/mcL Normal 4.5-10.8 [facility] ([place] Comment on above: Performed By: #### A DIFF, CBC, ANEU, CMP, GFR #### [address] [address] CMPon 09-01-2023 Albumin Level 2.5 G/dL Low 3.2-4.8 [facility] ([place]) Comment on above: Performed By: #### A DIFF, CBC, ANEU, CMP, GFR #### [place] [id number] Albumin/Globulin [Mass ratio] 0.9 {ratio} Normal 0.9-1.6 [facility] ([place]) Comment on above: Performed By: #### A DIFF, CBC, ANEU, CMP, GFR #### [place] [address] ALP [Catalytic activity/Vol] 80 U/L Normal 38-126 [facility] ([place] Comment on above: Performed By: #### A DIFF, CBC, ANEU, CMP, GFR #### [place] [address] ALT/SGPT <8 Low 12-55 [facility] ([place] Comment on above: Performed By: #### A DIFF, CBC, ANEU, CMP, GFR #### [place] [id number] AST [Catalytic activity/Vol] 17 U/L Normal 8-34 [facility] ([place] Comment on above: Performed By: #### A DIFF, CBC, ANEU, CMP, GFR #### [place] [id number] Bili Total 1.00 mg/dL Normal 0.20-1.20 [facility] ([place]) Comment on above: Result Comment: Use of this assay is not recommended for patients undergoing treatment with eltrombopag due to the potential for falsely elevated results. Performed By: #### A DIFF, CBC, ANEU, CMP, GFR #### [address] [address] BUN/Creatinine Ratio 17.6 ratio Normal 10.0-22.0 [facility] ([place]) Comment on above: Performed By: #### A DIFF, CBC, ANEU, CMP, GFR #### [address] [address] Calcium [Mass/Vol] 8.3 mg/dL Low 8.7-10.4 [facility] ([place]) Comment on above: Performed By: #### A DIFF, CBC, ANEU, CMP, GFR #### [address] [address] Chloride [Moles/Vol] 104 mmol/L Normal 98-110 [facility] ([place]) Comment on above: Performed By: #### A DIFF, CBC, ANEU, CMP, GFR #### [address] [address] CO2 [Moles/Vol] 35 mmol/L High 22-32 [facility] ([place]) Comment on above: Performed By: #### A DIFF, CBC, ANEU, CMP, GFR #### [address] [address] Creatinine [Mass/Vol] 3.29 mg/dL High 0.60-1.40 [facility] ([place]) Comment on above: Performed By: #### A DIFF, CBC, ANEU, CMP, GFR #### [address] [address] Electrolyte Balance 1.0 mEq/L Low 4.0-15.0 [facility] ([place]) Comment on above: Performed By: #### A DIFF, CBC, ANEU, CMP, GFR #### [address] [address] Globulin 2.8 G/dL Normal 1.5-3.8 [facility] ([place]) Comment on above: Performed By: #### A DIFF, CBC, ANEU, CMP, GFR #### [address] [address] Glucose [Mass/Vol] 96 mg/dL Normal 82-115 [facility] ([place]) Comment on above: Performed By: #### A DIFF, CBC, ANEU, CMP, GFR #### [address] [address] Potassium [Moles/Vol] 3.8 mmol/L Normal 3.5-5.0 [facility] ([place]) Comment on above: Performed By: #### A DIFF, CBC, ANEU, CMP, GFR #### [address] [address] Sodium [Moles/Vol] 140 mmol/L Normal 136-145 [facility] ([place]) Comment on above: Performed By: #### A DIFF, CBC, ANEU, CMP, GFR #### [address] [address] Total Protein 5.3 G/dL Low 5.7-8.2 [facility] ([place]) Comment on above: Result Comment: No te - New Reference Range in effect 20 Performed By: #### A DIFF, CBC, ANEU, CMP, GFR #### [address] [address] Urea nitrogen [Mass/Vol] 58.0 mg/dL High 8.0-22.0 [facility] ([place]) Comment on above: Performed By: #### A DIFF, CBC, ANEU, CMP, GFR #### [address] [address] LABORATORYOrdered By: SYSTEM SYSTEM on 09-01-2023 Albumin BCP dye [Mass/Vol] 2.5 G/dL Low 3.2 - 4.8 G/dL ADM SS Albumin/Globulin [Mass ratio] 0.9 {ratio} Normal 0.9 - 1.6 ratio ADM SS ALP [Catalytic activity/Vol] 80 U/L Normal 38 - 126 U/L ADM SS ALT No additional P-5'-P [Catalytic activity/Vol] U/L 1 Low 12 - 55 U/L ADM SS AST [Catalytic activity/Vol] 17 U/L Normal 8 - 34 U/L ADM SS Basophils (Bld) [#/Vol] 0.1 103/mcL Normal 0.0 - 0.3 10^3/mcL Workflow SS Basophils/100 WBC (Bld) 1.2 % Normal 0.0 - 2.5 % Workflow SS Bilirubin [Mass/Vol] 1.00 mg/dL Normal 0.20 - 1.20 mg/dL ADM SS Comment on above: Interpretive Data: U se of this assay is not recommended for patients undergoing treatment with eltrombopag due to the potential for falsely elevated results. Calcium [Mass/Vol] 8.3 mg/dL Low 8.7 - 10. 4 mg/dL ADM SS Chloride [Moles/Vol] 104 mmol/L Normal 98 - 11 0 mEq/L ADM SS CO2 [Moles/Vol] 35 mmol/L High 22 - 32 mEq/L ADM SS Creatinine [Mass/Vol] 3.29 mg/dL High 0.60 - 1.40 mg/dL ADM SS Electrolyte Balance 1.0 mEq/L Low 4.0 - 15 .0 mEq/L ADM SS Eosinophils (Bld) [#/Vol] 0.2 103/mcL Normal 0.0 - 0.7 10^3/mcL Workflow SS Eosinophils/100 WBC (Bld) 3.4 % Normal 0.0 - 6.0 % Workflow SS Erythrocyte distribution width (RBC) [Ratio] 15.0 % Normal 11.5 - 15.5 % Workflow SS GFR/1.73 sq M.predicted among blacks MDRD (S/P/Bld) [Vol rate/Area] 23 ml/min/1.73sqm Invalid Interpretation Code Chemistry S Comment on above: Interpretive Data: GFR Population mean for , Non- Americans Ages 20-29 = 116 mL/min/1.73 sq.m. Ages 30-39 = 107 mL/min/1.73 sq.m. Ages 40-49 = 99 mL/min/1.73 sq.m. Ages 50-59 = 93 mL/min/1.73 sq.m. Ages 60-69 = 85 mL/min/1.73 sq.m. Ages 70+ = 75 mL/min/1.73 sq.m. Chronic Kidney Disease: Less than 60 mL/min/1.73 square meters End Stage Renal Disease: Less than 15 mL/min/1.73 square meters GFR/1.73 sq M.predicted among non-blacks MDRD (S/P/Bld) [Vol rate/Area] 19 ml/min/1.73sqm Invalid Interpretation Code Chemistry S Comment on above: Interpretive Data: GFR Population mean for , Non- Americans Ages 20-29 = 116 mL/min/1.73 sq.m. Ages 30-39 = 107 mL/min/1.73 sq.m. Ages 40-49 = 99 mL/min/1.73 sq.m. Ages 50-59 = 93 mL/min/1.73 sq.m. Ages 60-69 = 85 mL/min/1.73 sq.m. Ages 70+ = 75 mL/min/1.73 sq.m. Chronic Kidney Disease: Less than 60 mL/min/1.73 square meters End Stage Renal Disease: Less than 15 mL/min/1.73 square meters Globulin 2.8 G/dL Normal 1.5 - 3.8 G/dL ADM SS Glucose [Mass/Vol] 96 mg/dL Normal 82 - 115 mg/dL ADM SS Hematocrit (Bld) [Volume fraction] 26.0 % Low 40.0 - 52.0 % AH Workflow SS Hemoglobin (Bld) [Mass/Vol] 8.2 G/dL Low 13.0 - 17.5 G/dL AH Workflow SS Lymphocytes (Bld) [#/Vol] 0.7 103/mcL Low 0.9 - 4.3 10^3/mcL AH Workflow SS Lymphocytes/100 WBC (Bld) 12.0 % Low 20.0 - 40.0 % AH Workflow SS MCH (RBC) [Entitic mass] 29.4 pg Normal 27.0 - 33.0 pg AH Workflow SS MCHC 31.7 G/dL Low 32.0 - 36.0 G/dL AH Workflow SS MCV (RBC) [Entitic vol] 92.9 fL Normal 81.0 - 100.0 fL AH Workflow SS Monocytes (Bld) [#/Vol] 0.7 103/mcL Normal 0.1 - 1.4 10^3/mcL AH Workflow SS Monocytes/100 WBC (Bld) 12.6 % Normal 2.0 - 13.0 % AH Workflow SS Neutrophils (Bld) [#/Vol] 4.0 103/mcL Normal 2.3 - 8.1 10^3/mcL AH Workflow SS Neutrophils/100 WBC (Bld) 70.8 % Normal 50.0 - 75.0 % AH Workflow SS Platelet mean volume (Bld) [Entitic vol] 7.9 fL Normal 6.4 - 10.5 fL AH Workflow SS Platelets (Bld) [#/Vol] 214 103/mcL Normal 150 - 450 10^3/mcL AH Workflow SS Potassium [Moles/Vol] 3.8 mmol/L Normal 3.5 - 5.0 mEq/L AH ADM SS Protein [Mass/Vol] 5.3 G/dL Low 5.7 - 8.2 G/dL AH ADM SS Comment on above: Interpretive Data: * *Note - New Reference Range in effect 20 RBC (Bld) [#/Vol] 2.80 106/mcL Low 4.50 - 6.0 0 10^6/mcL AH Workflow SS Sodium [Moles/Vol] 140 mmol/L Normal 136 - 145 mEq/L ADM SS Urea nitrogen [Mass/Vol] 58.0 mg/dL High 8.0 - 22.0 mg/dL AH ADM SS Urea nitrogen/Creatinine [Mass ratio] 17.6 ratio Normal 10.0 - 22.0 ratio AH ADM SS WBC (Bld) [#/Vol] 5.7 103/mcL Normal 4.5 - 10.8 10^3/mcL Workflow SS LABORATORYOrdered By: Gloria Lyn on 08-30-2023 Time of Stated Blood Glucose [id number] [facility] Work Phone: .Auto Diffon 08-27-2023 Basophil, Absolute 0.1 10 3/mcL Normal 0.0-0.3 [facility] ([place]) Comment on above: Performed By: #### C BC, ANEU, ADIFF, GFR, BMP #### [address] [address] Basophils/100 WBC (Bld) 1.0 % Normal 0.0-2.5 [facility] ([place]) Comment on above: Performed By: #### C BC, ANEU, ADIFF, GFR, BMP #### [address] [address] Eosinophil, Absolute 0.1 10 3/mcL Normal 0.0-0.7 [facility] ([place]) Comment on above: Performed By: #### C BC, ANEU, ADIFF, GFR, BMP #### [address] [address] Eosinophils/100 WBC (Bld) 2.3 % Normal 0.0-6.0 [facility] ([place]) Comment on above: Performed By: #### C BC, ANEU, ADIFF, GFR, BMP #### [address] [address] Lymphocyte, Absolute 0.7 10 3/mcL Low 0.9-4.3 [facility] ([place]) Comment on above: Performed By: #### C BC, ANEU, ADIFF, GFR, BMP #### [address] [address] Lymphocytes/100 WBC (Bld) 13.9 % Low 20.0-40.0 [facility] ([place]) Comment on above: Performed By: #### C BC, ANEU, ADIFF, GFR, BMP #### [address] [address] Monocyte, Absolute 0.7 10 3/mcL Normal 0.1-1.4 [facility] ([place]) Comment on above: Performed By: #### C BC, ANEU, ADIFF, GFR, BMP #### [address] [address] Monocytes/100 WBC (Bld) 13.6 % High 2.0-13.0 [facility] ([place]) Comment on above: Performed By: #### C BC, ANEU, ADIFF, GFR, BMP #### [address] [address] Neutrophils/100 WBC (Bld) 69.2 % Normal 50.0-75.0 [facility] ([place]) Comment on above: Performed By: #### C BC, ANEU, ADIFF, GFR, BMP #### [address] [address] .GFRon 08-27-2023 GFR 22 ml/min/1.73sqm Normal [facility] ([place]) Comment on above: Result Comment: GFR Population mean for , Non- Americans Ages 20-29 = 116 mL/min/1.73 sq.m. Ages 30-39 = 107 mL/min/1.73 sq.m. Ages 40-49 = 99 mL/min/1.73 sq.m. Ages 50-59 = 93 mL/min/1.73 sq.m. Ages 60-69 = 85 mL/min/1.73 sq.m. Ages 70+ = 75 mL/min/1.73 sq.m. Chronic Kidney Disease: Less than 60 mL/min/1.73 square meters End Stage Renal Disease: Less than 15 mL/min/1.73 square meters Performed By: #### C BC, ANEU, ADIFF, GFR, BMP #### [address] [address] GFR Non- 18 ml/min/1.73sqm Normal [facility] ([place]) Comment on above: Result Comment: GFR Population mean for , Non- Americans Ages 20-29 = 116 mL/min/1.73 sq.m. Ages 30-39 = 107 mL/min/1.73 sq.m. Ages 40-49 = 99 mL/min/1.73 sq.m. Ages 50-59 = 93 mL/min/1.73 sq.m. Ages 60-69 = 85 mL/min/1.73 sq.m. Ages 70+ = 75 mL/min/1.73 sq.m. Chronic Kidney Disease: Less than 60 mL/min/1.73 square meters End Stage Renal Disease: Less than 15 mL/min/1.73 square meters Performed By: #### C BC, ANEU, ADIFF, GFR, BMP #### [address] [address] .NEUABSon 08-27-2023 Neutrophil, Absolute 3.6 10 3/mcL Normal 2.3-8.1 [facility] ([place]) Comment on above: Performed By: #### C BC, ANEU, ADIFF, GFR, BMP #### [address] [address] BMPon 08-27-2023 BUN/Creatinine Ratio 24.9 ratio High 10.0-22.0 [facility] ([place]) Comment on above: Performed By: #### C BC, ANEU, ADIFF, GFR, BMP #### [address] [address] Calcium [Mass/Vol] 8.2 mg/dL Low 8.7-10.4 [facility] ([place]) Comment on above: Performed By: #### C BC, ANEU, ADIFF, GFR, BMP #### [address] [address] Chloride [Moles/Vol] 101 mmol/L Normal 98-110 [facility] ([place]) Comment on above: Performed By: #### C BC, ANEU, ADIFF, GFR, BMP #### [address] [address] CO2 [Moles/Vol] 30 mmol/L Normal 22-32 [facility] ([place]) Comment on above: Performed By: #### C BC, ANEU, ADIFF, GFR, BMP #### [address] [address] Creatinine [Mass/Vol] 3.34 mg/dL High 0.60-1.40 [facility] ([place]) Comment on above: Performed By: #### C BC, ANEU, ADIFF, GFR, BMP #### [address] [address] Electrolyte Balance 6.0 mEq/L Normal 4.0-15.0 [facility] ([place]) Comment on above: Performed By: #### C BC, ANEU, ADIFF, GFR, BMP #### [address] [address] Glucose [Mass/Vol] 111 mg/dL Normal 82-115 [facility] ([place]) Comment on above: Performed By: #### C BC, ANEU, ADIFF, GFR, BMP #### [address] [address] Potassium [Moles/Vol] 4.5 mmol/L Normal 3.5-5.0 [facility] ([place]) Comment on above: Performed By: #### C BC, ANEU, ADIFF, GFR, BMP #### [address] [address] Sodium [Moles/Vol] 137 mmol/L Normal 136-145 [facility] ([place]) Comment on above: Performed By: #### C BC, ANEU, ADIFF, GFR, BMP #### [place] [id number] Urea nitrogen [Mass/Vol] 83.0 mg/dL High 8.0-22.0 [facility] ([place]) Comment on above: Performed By: #### C BC, ANEU, ADIFF, GFR, BMP #### [place] [address] CBCon 08-27-2023 Erythrocyte distribution width (RBC) [Ratio] 15.5 % Normal 11.5-15.5 [facility] ([place]) Comment on above: Performed By: #### C BC, ANEU, ADIFF, GFR, BMP #### [place] [address] Hematocrit (Bld) [Volume fraction] 26.1 % Low 40.0-52.0 [facility] ([place]) Comment on above: Performed By: #### C BC, ANEU, ADIFF, GFR, BMP #### [place] [id number] Hgb 8.4 G/dL Low 13.0-17.5 [facility] ([place]) Comment on above: Performed By: #### C BC, ANEU, ADIFF, GFR, BMP #### [place] [address] MCH (RBC) [Entitic mass] 29.5 pg Normal 27.0-33.0 [facility] ([place]) Comment on above: Performed By: #### C BC, ANEU, ADIFF, GFR, BMP #### [place] [id number] MCHC 32.1 G/dL Normal 32.0-36.0 [facility] ([place]) Comment on above: Performed By: #### C BC, ANEU, ADIFF, GFR, BMP #### [place] [address] MCV (RBC) [Entitic vol] 92.0 fL Normal 81.0-100.0 [facility] ([place]) Comment on above: Performed By: #### C BC, ANEU, ADIFF, GFR, BMP #### [place] [address] Platelet 234 10 3/mcL Normal 150-450 [facility] ([place]) Comment on above: Performed By: #### C BC, ANEU, ADIFF, GFR, BMP #### [place] [address] Platelet mean volume (Bld) [Entitic vol] 8.0 fL Normal 6.4-10.5 [facility] ([place]) Comment on above: Performed By: #### C BC, ANEU, ADIFF, GFR, BMP #### [place] [address] RBC 2.84 10 6/mcL Low 4.50-6.00 [facility] ([place]) Comment on above: Performed By: #### C BC, ANEU, ADIFF, GFR, BMP #### [place] [address] WBC 5.2 10 3/mcL Normal 4.5-10.8 [facility] ([place]) Comment on above: Performed By: #### C BC, ANEU, ADIFF, GFR, BMP #### [place] [address] LABORATORYOrdered By: Aisha Vieira on 08-27-2023 Glucose [Mass/Vol] 171 mg/dL [facility] Work Phone: LABORATORYOrdered By: SYSTEM SYSTEM on 08-27-2023 Basophils (Bld) [#/Vol] 0.1 103/mcL Normal 0.0 - 0.3 10^3/mcL AH Workflow SS Basophils/100 WBC (Bld) 1.0 % Normal 0.0 - 2.5 % AH Workflow SS Calcium [Mass/Vol] 8.2 mg/dL Low 8.7 - 10. 4 mg/dL AH ADM SS Chloride [Moles/Vol] 101 mmol/L Normal 98 - 11 0 mEq/L AH ADM SS CO2 [Moles/Vol] 30 mmol/L Normal 22 - 32 mEq/L AH ADM SS Creatinine [Mass/Vol] 3.34 mg/dL High 0.60 - 1.40 mg/dL AH ADM SS Electrolyte Balance 6.0 mEq/L Normal 4.0 - 15 .0 mEq/L AH ADM SS Eosinophils (Bld) [#/Vol] 0.1 103/mcL Normal 0.0 - 0.7 10^3/mcL AH Workflow SS Eosinophils/100 WBC (Bld) 2.3 % Normal 0.0 - 6.0 % Workflow SS Erythrocyte distribution width (RBC) [Ratio] 15.5 % Normal 11.5 - 15.5 % Workflow SS GFR/1.73 sq M.predicted among blacks MDRD (S/P/Bld) [Vol rate/Area] 22 ml/min/1.73sqm Invalid Interpretation Code [employer] NET Chemistry S Comment on above: Interpretive Data: GFR Population mean for , Non- Americans Ages 20-29 = 116 mL/min/1.73 sq.m. Ages 30-39 = 107 mL/min/1.73 sq.m. Ages 40-49 = 99 mL/min/1.73 sq.m. Ages 50-59 = 93 mL/min/1.73 sq.m. Ages 60-69 = 85 mL/min/1.73 sq.m. Ages 70+ = 75 mL/min/1.73 sq.m. Chronic Kidney Disease: Less than 60 mL/min/1.73 square meters End Stage Renal Disease: Less than 15 mL/min/1.73 square meters GFR/1.73 sq M.predicted among non-blacks MDRD (S/P/Bld) [Vol rate/Area] 18 ml/min/1.73sqm Invalid Interpretation Code [employer] NET Chemistry S Comment on above: Interpretive Data: GFR Population mean for , Non- Americans Ages 20-29 = 116 mL/min/1.73 sq.m. Ages 30-39 = 107 mL/min/1.73 sq.m. Ages 40-49 = 99 mL/min/1.73 sq.m. Ages 50-59 = 93 mL/min/1.73 sq.m. Ages 60-69 = 85 mL/min/1.73 sq.m. Ages 70+ = 75 mL/min/1.73 sq.m. Chronic Kidney Disease: Less than 60 mL/min/1.73 square meters End Stage Renal Disease: Less than 15 mL/min/1.73 square meters Glucose [Mass/Vol] 111 mg/dL Normal 82 - 115 mg/dL ADM SS Hematocrit (Bld) [Volume fraction] 26.1 % Low 40.0 - 52.0 % AH Workflow SS Hemoglobin (Bld) [Mass/Vol] 8.4 G/dL Low 13.0 - 17.5 G/dL AH Workflow SS Lymphocytes (Bld) [#/Vol] 0.7 103/mcL Low 0.9 - 4.3 10^3/mcL AH Workflow SS Lymphocytes/100 WBC (Bld) 13.9 % Low 20.0 - 40.0 % Workflow SS MCH (RBC) [Entitic mass] 29.5 pg Normal 27.0 - 33.0 pg Workflow SS MCHC 32.1 G/dL Normal 32.0 - 36.0 G/dL Workflow SS MCV (RBC) [Entitic vol] 92.0 fL Normal 81.0 - 100.0 fL Workflow SS Monocytes (Bld) [#/Vol] 0.7 103/mcL Normal 0.1 - 1.4 10^3/mcL AH Workflow SS Monocytes/100 WBC (Bld) 13.6 % High 2.0 - 13.0 % Workflow SS Neutrophils (Bld) [#/Vol] 3.6 103/mcL Normal 2.3 - 8.1 10^3/mcL AH Workflow SS Neutrophils/100 WBC (Bld) 69.2 % Normal 50.0 - 75.0 % AH Workflow SS Platelet mean volume (Bld) [Entitic vol] 8.0 fL Normal 6.4 - 10.5 fL Workflow SS Platelets (Bld) [#/Vol] 234 103/mcL Normal 150 - 450 10^3/mcL AH Workflow SS Potassium [Moles/Vol] 4.5 mmol/L Normal 3.5 - 5.0 mEq/L ADM SS RBC (Bld) [#/Vol] 2.84 106/mcL Low 4.50 - 6.0 0 10^6/mcL AH Workflow SS Sodium [Moles/Vol] 137 mmol/L Normal 136 - 145 mEq/L ADM SS Urea nitrogen [Mass/Vol] 83.0 mg/dL High 8.0 - 22.0 mg/dL ADM SS Urea nitrogen/Creatinine [Mass ratio] 24.9 ratio High 10.0 - 22.0 ratio AH ADM SS WBC (Bld) [#/Vol] 5.2 103/mcL Normal 4.5 - 10.8 10^3/mcL AH Workflow SS Basic metabolic 2000 panelon 08-26-2023 Anion gap [Moles/Vol] 6 mmol/L Normal 5-16 [facility] Comment on above: Order Comment: Speci men Type: BLOOD SPECIMENOrdering Facility: [facility] Address: [address] [place] [address] Performed By: #### 2 4321-2 ####[facility] LABORATORYCLIA [id number] [place] [address] [place] Calcium [Mass/Vol] 8.3 mg/dL Low 8.5-10.5 [facility] Comment on above: Order Comment: Speci men Type: BLOOD SPECIMENOrdering Facility: [facility] Address: [address] [place] [address] Performed By: #### 2 4321-2 ####[facility] LABORATORYCLIA [id number] [place] [address] [place] Chloride [Moles/Vol] 100 mmol/L Normal 98-107 [facility] Comment on above: Order Comment: Speci men Type: BLOOD SPECIMENOrdering Facility: [facility] Address: [address] [place] [address] Performed By: #### 2 4321-2 ####[facility] LABORATORYCLIA [id number] [place] [address] [place] CO2 [Moles/Vol] 29 mmol/L Normal 21-32 [facility] Comment on above: Order Comment: Speci men Type: BLOOD SPECIMENOrdering Facility: [facility] Address: [address] [place] [address] Performed By: #### 2 4321-2 ####[facility] LABORATORYCLIA [id number] [place] [address] [place] Creatinine [Mass/Vol] 3.76 mg/dL High 0.50-1.40 [facility] Comment on above: Order Comment: Speci men Type: BLOOD SPECIMENOrdering Facility: [facility] Address: [address] [place] [address] Result Comment: Raquel ents receiving either N-Acetylcysteine (NAC) or Metamizole prior to venipuncture, may have falsely depressed results. Performed By: #### 2 4321-2 ####[facility] LABORATORYCLIA [id number] [place] [address] [place] Creatinine and Glomerular filtration rate.predicted panel (S/P/Bld) 16 mL/min/1.73m??? Low >=60 [facility] Comment on above: Order Comment: Elizabeth riggs Type: BLOOD SPECIMENOrdering Facility: [facility] Address: [address] [place] [address] Result Comment: More mated Glomerular Filtration Rate (eGFR) is calculated using the 2020 CKD-EPI creatinine equation. This equation utilizes serum creatinine, sex, and age as parameters. The creatinine assay has traceable calibration to isotope dilution-mass spectrometry. Refer to KDIGO guidelines for clinical interpretation. In patients with unstable renal function, e.g. those with acute kidney injury, the eGFR may not accurately reflect actual GFR. Performed By: #### 2 4321-2 ####[facility] LABORATORYCLIA [id number] [place] [address] [place] Glucose [Mass/Vol] 88 mg/dL Normal 70-100 [facility] Comment on above: Order Comment: Elizabeth riggs Type: BLOOD SPECIMENOrdering Facility: [facility] Address: [address] [place] [address] Result Comment: The [place] [employer] (ADA) provides guidance for cutoff values for fasting glucose and random glucose. The ADA defines fasting as no caloric intake for at least 8 hours. Fasting plasma glucose results between 100 to 125 mg/dL indicate increased risk for diabetes (prediabetes).Fasting plasma glucose results greater than or equal to 126 mg/dL meet the criteria for diagnosis of diabetes. In the absence of unequivocal hyperglycemia, results should be confirmed by repeat testing. In a patient with classic symptoms of hyperglycemia or hyperglycemic crisis, random plasma glucose results greater than or equal to 200 mg/dL meet the criteria for diagnosis of diabetes.Reference: Standards of Medical Care in Diabetes 2016, [place] [employer]. Diabetes Care. 2016.39(Suppl 1).Results may be falsely elevated after the administration of Sulfapyridine.Results may be falsely depressed after the administration of Sulfasalazine. Performed By: #### 2 4321-2 ####[facility] LABORATORYCLIA [id number] [place] [address] [place] Potassium [Moles/Vol] 4.8 mmol/L Normal 3.5-5.1 [facility] Comment on above: Order Comment: Speci men Type: BLOOD SPECIMENOrdering Facility: [facility] Address: [address] [place] [address] Performed By: #### 2 4321-2 ####[facility] LABORATORYCLIA [id number] [place] [address] [place] Sodium [Moles/Vol] 135 mmol/L Low 136-145 [facility] Comment on above: Order Comment: Speci men Type: BLOOD SPECIMENOrdering Facility: [facility] Address: [address] [place] [address] Performed By: #### 2 4321-2 ####[facility] LABORATORYCLIA [id number] [place] [address] [place] Urea nitrogen [Mass/Vol] 92 mg/dL High 7-26 [facility] Comment on above: Order Comment: Speci men Type: BLOOD SPECIMENOrdering Facility: [facility] Address: [address] [place] [address] Performed By: #### 2 4321-2 ####[facility] LABORATORYCLIA [id number] [place] [address] [place] CBC panel Auto (Bld)on 08-26 Erythrocyte distribution width (RBC) [Ratio] 14.6 % Normal 11.5-15.0 [facility] Comment on above: Order Comment: Speci men Type: BLOOD SPECIMENOrdering Facility: [facility] Address: [address] [place] [address] Performed By: #### 5 8410-2 ####[facility] LABORATORYCLIA [id number] [address] [place] Hematocrit (Bld) [Volume fraction] 24.1 % Low 39.0-51.0 [facility] Comment on above: Order Comment: Speci men Type: BLOOD SPECIMENOrdering Facility: [facility] Address: [address] [place] [address] Performed By: #### 5 8410-2 ####[facility] LABORATORYCLIA [id number] [place] [address] [place] Hemoglobin (Bld) [Mass/Vol] 7.6 g/dL Low 13.0-17.0 [facility] Comment on above: Order Comment: Speci men Type: BLOOD SPECIMENOrdering Facility: [facility] Address: [address] [place] [address] Performed By: #### 5 8410-2 ####[facility] LABORATORYIA [id number] [address] [place] MCH (RBC) [Entitic mass] 29.9 pg Normal 26.0-34.0 [facility] Comment on above: Order Comment: Speci men Type: BLOOD SPECIMENOrdering Facility: [facility] Address: [address] [place] [address] Performed By: #### 5 8410-2 ####[facility] LABORATORYIA [id number] [address] [place] MCHC (RBC) [Mass/Vol] 31.5 g/dL Normal 30.5-36.0 [facility] Comment on above: Order Comment: Speci men Type: BLOOD SPECIMENOrdering Facility: [facility] Address: [address] [place] [address] Performed By: #### 5 8410-2 ####[facility] LABORATORYIA [id number] [address] [place] MCV (RBC) [Entitic vol] 94.9 fL Normal 80.0-100.0 [facility] Comment on above: Order Comment: Speci men Type: BLOOD SPECIMENOrdering Facility: [facility] Address: [address] [place] [address], [place] [address] Performed By: #### 5 8410-2 ####[facility] LABORATORYCLIA [id number] [place] [id number] [place] Nucleated RBC (Bld) [#/Vol] 10*3/uL Normal <0.01 [facility] Comment on above: Order Comment: Speci men Type: BLOOD SPECIMENOrdering Facility: [facility] Address: [address] [place] [address] Performed By: #### 5 8410-2 ####[facility] LABORATORYCLIA [id number] [place] [address] [place] Platelet mean volume (Bld) [Entitic vol] 9.5 fL Normal 9.0-12.7 [facility] Comment on above: Order Comment: Speci men Type: BLOOD SPECIMENOrdering Facility: [facility] Address: [address] [place] [address] Performed By: #### 5 8410-2 ####[facility] LABORATORYCLIA [id number] [place] [address] [place] Platelets (Bld) [#/Vol] 224 10*3/uL Normal 150-400 [facility] Comment on above: Order Comment: Speci men Type: BLOOD SPECIMENOrdering Facility: [facility] [address] [place] [address] Performed By: #### 5 8410-2 ####[facility] LABORATORYCLIA [id number] [place] [id number] [place] RBC (Bld) [#/Vol] 2.54 10*6/uL Low 4.20-6.00 [facility] Comment on above: Order Comment: Speci men Type: BLOOD SPECIMENOrdering Facility: [facility] Address: [address] [place] [address] Performed By: #### 5 8410-2 ####[facility] LABORATORYCLIA [id number] [place] [id number] [place] WBC (Bld) [#/Vol] 6.39 10*3/uL Normal 3.70-11.00 [facility] Comment on above: Order Comment: Speci men Type: BLOOD SPECIMENOrdering Facility: [facility] Address: [address] [place] [address] Performed By: #### 5 8410-2 ####[facility] LABORATORYCLIA [id number] [place] [id number] [place] CNDSon 08-26-2023 CNDS Normal [facility] Basic metabolic 2000 panelon 08-25-2023 Anion gap [Moles/Vol] 3 mmol/L Low 5-16 [facility] Comment on above: Order Comment: Speci men Type: BLOOD SPECIMENOrdering Facility: [facility] Address: [address] [place] [address] Performed By: #### 2 4321-2 ####[facility] LABORATORYCLIA [id number] [place] [address] [place] Calcium [Mass/Vol] 8.5 mg/dL Normal 8.5-10.5 [facility] Comment on above: Order Comment: Speci men Type: BLOOD SPECIMENOrdering Facility: [facility] Address: [address] [place] [address] Performed By: #### 2 4321-2 ####[facility] LABORATORYCLIA [id number] [place] [id number] [place] Chloride [Moles/Vol] 101 mmol/L Normal 98-107 [facility] Comment on above: Order Comment: Speci men Type: BLOOD SPECIMENOrdering Facility: [facility] Address: [address] [place] [address] Performed By: #### 2 4321-2 ####[facility] LABORATORYCLIA [id number] [place] [address] [place] CO2 [Moles/Vol] 30 mmol/L Normal 21-32 [facility] Comment on above: Order Comment: Speci men Type: BLOOD SPECIMENOrdering Facility: [facility] Address: [address] [place] [address] Performed By: #### 2 4321-2 ####[facility] LABORATORYCLIA [id number] [place] [address] [place] Creatinine [Mass/Vol] 3.95 mg/dL High 0.50-1.40 [facility] Comment on above: Order Comment: Speci men Type: BLOOD SPECIMENOrdering Facility: [facility] Address: [address] [place] [address] Result Comment: Raquel ents receiving either N-Acetylcysteine (NAC) or Metamizole prior to venipuncture, may have falsely depressed results. Performed By: #### 2 4321-2 ####[facility] LABORATORYCLIA [id number] [address] Creatinine and Glomerular filtration rate.predicted panel (S/P/Bld) 15 mL/min/1.73m??? Low >=60 [facility] Comment on above: Order Comment: Speci men Type: BLOOD SPECIMENOrdering Facility: [facility] Address: [address] [place] [address] Result Comment: More mated Glomerular Filtration Rate (eGFR) is calculated using the 2020 CKD-EPI creatinine equation. This equation utilizes serum creatinine, sex, and age as parameters. The creatinine assay has traceable calibration to isotope dilution-mass spectrometry. Refer to KDIGO guidelines for clinical interpretation. In patients with unstable renal function, e.g. those with acute kidney injury, the eGFR may not accurately reflect actual GFR. Performed By: #### 2 4321-2 ####[facility] LABORATORYCLIA [id number] [place] [address] [place] Glucose [Mass/Vol] 77 mg/dL Normal 70-100 [facility] Comment on above: Order Comment: Speci keely Type: BLOOD SPECIMENOrdering Facility: [facility] Address: [address] [place] [address] Result Comment: The [place] Diabetes [employer] (ADA) provides guidance for cutoff values for fasting glucose and random glucose. The ADA defines fasting as no caloric intake for at least 8 hours. Fasting plasma glucose results between 100 to 125 mg/dL indicate increased risk for diabetes (prediabetes).Fasting plasma glucose results greater than or equal to 126 mg/dL meet the criteria for diagnosis of diabetes. In the absence of unequivocal hyperglycemia, results should be confirmed by repeat testing. In a patient with classic symptoms of hyperglycemia or hyperglycemic crisis, random plasma glucose results greater than or equal to 200 mg/dL meet the criteria for diagnosis of diabetes.Reference: Standards of Medical Care in Diabetes 2016, [place] [employer]. Diabetes Care. 2016.39(Suppl 1).Results may be falsely elevated after the administration of Sulfapyridine.Results may be falsely depressed after the administration of Sulfasalazine. Performed By: #### 2 4321-2 ####[facility] LABORATORYCLIA [id number] [place] [address] [place] Potassium [Moles/Vol] 5.2 mmol/L High 3.5-5.1 [facility] Comment on above: Order Comment: Sydnii keely Type: BLOOD SPECIMENOrdering Facility: [facility] Address: [address] [place] [address] Performed By: #### 2 4321-2 ####[facility] LABORATORYCLIA [id number] [place] [address] [place] Sodium [Moles/Vol] 134 mmol/L Low 136-145 [facility] Comment on above: Order Comment: Elizabeth riggs Type: BLOOD SPECIMENOrdering Facility: [facility] Address: [address] [place] [address] Performed By: #### 2 4321-2 ####[facility] LABORATORYCLIA [id number] [place] [address] [place] Urea nitrogen [Mass/Vol] 99 mg/dL High 7-26 [facility] Comment on above: Order Comment: Sydnii men Type: BLOOD SPECIMENOrdering Facility: [facility] Address: [address] [place] [address] Performed By: #### 2 4321-2 ####[facility] LABORATORYCLIA [id number] [place] [id number] [place] Basic metabolic 2000 panelon 08-24-2023 Anion gap [Moles/Vol] mmol/L Low 5-16 [facility] Comment on above: Order Comment: Speci men Type: BLOOD SPECIMENOrdering Facility: [facility] Address: [address] [place] [address] Performed By: #### 2 4321-2 ####[facility] LABORATORYCLIA [id number] [place] [id number] [place] Calcium [Mass/Vol] 8.3 mg/dL Low 8.5-10.5 [facility] Comment on above: Order Comment: Speci men Type: BLOOD SPECIMENOrdering Facility: [facility] Address: [address] [place] [address] Performed By: #### 2 4321-2 ####[facility] LABORATORYCLIA [id number] [place] [address] [place] Chloride [Moles/Vol] 101 mmol/L Normal 98-107 [facility] Comment on above: Order Comment: Speci men Type: BLOOD SPECIMENOrdering Facility: [facility] Address: [address] [place] [address] Performed By: #### 2 4321-2 ####[facility] LABORATORYCLIA [id number] [place] [address] [place] CO2 [Moles/Vol] 32 mmol/L Normal 21-32 [facility] Comment on above: Order Comment: Speci men Type: BLOOD SPECIMENOrdering Facility: [facility] Address: [address] [place] [address] Performed By: #### 2 4321-2 ####[facility] LABORATORYCLIA [id number] [place] [address] [place] Creatinine [Mass/Vol] 4.03 mg/dL High 0.50-1.40 [facility] Comment on above: Order Comment: Speci men Type: BLOOD SPECIMENOrdering Facility: [facility] Address: [address] [place] [address] Result Comment: Raquel ents receiving either N-Acetylcysteine (NAC) or Metamizole prior to venipuncture, may have falsely depressed results. Performed By: #### 2 4321-2 ####[facility] LABORATORYCLIA [id number] [place] [address] [place] Creatinine and Glomerular filtration rate.predicted panel (S/P/Bld) 15 mL/min/1.73m??? Low >=60 [facility] Comment on above: Order Comment: Elizabeth riggs Type: BLOOD SPECIMENOrdering Facility: [facility] Address: [address] [place] [address] Result Comment: More mated Glomerular Filtration Rate (eGFR) is calculated using the 2020 CKD-EPI creatinine equation. This equation utilizes serum creatinine, sex, and age as parameters. The creatinine assay has traceable calibration to isotope dilution-mass spectrometry. Refer to KDIGO guidelines for clinical interpretation. In patients with unstable renal function, e.g. those with acute kidney injury, the eGFR may not accurately reflect actual GFR. Performed By: #### 2 4321-2 ####[facility] LABORATORYCLIA [id number] [place] [address] [place] Glucose [Mass/Vol] 78 mg/dL Normal 70-100 [facility] Comment on above: Order Comment: Elizabeth riggs Type: BLOOD SPECIMENOrdering Facility: [facility] Address: [address] [place] [address] Result Comment: The [place] Diabetes [employer] (ADA) provides guidance for cutoff values for fasting glucose and random glucose. The ADA defines fasting as no caloric intake for at least 8 hours. Fasting plasma glucose results between 100 to 125 mg/dL indicate increased risk for diabetes (prediabetes).Fasting plasma glucose results greater than or equal to 126 mg/dL meet the criteria for diagnosis of diabetes. In the absence of unequivocal hyperglycemia, results should be confirmed by repeat testing. In a patient with classic symptoms of hyperglycemia or hyperglycemic crisis, random plasma glucose results greater than or equal to 200 mg/dL meet the criteria for diagnosis of diabetes.Reference: Standards of Medical Care in Diabetes 2016, [place] [employer]. Diabetes Care. 2016.39(Suppl 1).Results may be falsely elevated after the administration of Sulfapyridine.Results may be falsely depressed after the administration of Sulfasalazine. Performed By: #### 2 4321-2 ####[facility] LABORATORYCLIA [id number] [place] [id number] [place] Potassium [Moles/Vol] 5.0 mmol/L Normal 3.5-5.1 [facility] Comment on above: Order Comment: Speci men Type: BLOOD SPECIMENOrdering Facility: [facility] Address: [address] [place] [address] Performed By: #### 2 4321-2 ####[facility] LABORATORYCLIA [id number] [place] [address] [place] Sodium [Moles/Vol] 134 mmol/L Low 136-145 [facility] Comment on above: Order Comment: Speci men Type: BLOOD SPECIMENOrdering Facility: [facility] Address: [address] [place] [address] Performed By: #### 2 4321-2 ####[facility] LABORATORYCLIA [id number] [place] [address] [place] Urea nitrogen [Mass/Vol] 105 mg/dL High 7-26 [facility] Comment on above: Order Comment: Speci men Type: BLOOD SPECIMENOrdering Facility: [facility] Address: [address] [place] [address] Performed By: #### 2 4321-2 ####[facility] LABORATORYCLIA [id number] [place] [address] [place] CBC W Auto Differential pane l (Bld)on 08-23-2023 Basophils (Bld) [#/Vol] 10*3/uL Normal <0.11 [facility] Comment on above: Order Comment: Speci men Type: BLOOD SPECIMENOrdering Facility: [facility] Address: [address] [place] [address] Performed By: #### 5 7021-8 ####[facility] LABORATORYCLIA [id number] [address] [place] Basophils/100 WBC (Bld) 0.1 % Normal [facility] Comment on above: Order Comment: Speci men Type: BLOOD SPECIMENOrdering Facility: [facility] Address: [address] [place] [address] Performed By: #### 5 7021-8 ####[facility] LABORATORYCLIA [id number] [address] [place] Differential cell count method Nom (Bld) Auto Normal [facility] Comment on above: Order Comment: Speci men Type: BLOOD SPECIMENOrdering Facility: [facility] Address: [address] [place] [address] Performed By: #### 5 7021-8 ####[facility] LABORATORYCLIA [id number] [place] [address] [place] Eosinophils (Bld) [#/Vol] 10*3/uL Normal <0.46 [facility] Comment on above: Order Comment: Speci men Type: BLOOD SPECIMENOrdering Facility: [facility] Address: [address] [place] [address] Performed By: #### 5 7021-8 ####[facility] LABORATORYCLIA [id number] [place] [address] [place] Eosinophils/100 WBC (Bld) 0.1 % Normal [facility] Comment on above: Order Comment: Speci men Type: BLOOD SPECIMENOrdering Facility: [facility] Address: [address] [place] [address] Performed By: #### 5 7021-8 ####[facility] LABORATORYIA [id number] [address] [place] Erythrocyte distribution width (RBC) [Ratio] 14.1 % Normal 11.5-15.0 [facility] Comment on above: Order Comment: Speci men Type: BLOOD SPECIMENOrdering Facility: [facility] Address: [address] [place] [address] Performed By: #### 5 7021-8 ####[facility] LABORATORYIA [id number] [address] [place] Hematocrit (Bld) [Volume fraction] 24.7 % Low 39.0-51.0 [facility] Comment on above: Order Comment: Speci men Type: BLOOD SPECIMENOrdering Facility: [facility] Address: [address] [place] [address] Performed By: #### 5 7021-8 ####[facility] LABORATORYCLIA [id number] [place] [address] [place] Hemoglobin (Bld) [Mass/Vol] 7.9 g/dL Low 13.0-17.0 [facility] Comment on above: Order Comment: Speci men Type: BLOOD SPECIMENOrdering Facility: [facility] Address: [address] [place] [address] Performed By: #### 5 7021-8 ####[facility] LABORATORYCLIA [id number] [place] [address] [place] Immature granulocytes (Bld) [#/Vol] 0.10 10*3/uL High <0.10 [facility] Comment on above: Order Comment: Speci men Type: BLOOD SPECIMENOrdering Facility: [facility] Address: [address] [place] [address] Performed By: #### 5 7021-8 ####[facility] LABORATORYCLIA [id number] [place] [address] [place] Immature granulocytes/100 WBC (Bld) 1.2 % Normal [facility] Comment on above: Order Comment: Speci men Type: BLOOD SPECIMENOrdering Facility: [facility] Address: [address] [place] [address] Performed By: #### 5 7021-8 ####[facility] LABORATORYCLIA [id number] [place] [address] [place] Lymphocytes (Bld) [#/Vol] 0.75 10*3/uL Low 1.00-4.00 [facility] Comment on above: Order Comment: Speci men Type: BLOOD SPECIMENOrdering Facility: [facility] Address: [address] [place] [address] Performed By: #### 5 7021-8 ####[facility] LABORATORYCLIA [id number] [place] [address] [place] Lymphocytes/100 WBC (Bld) 9.0 % Normal [facility] Comment on above: Order Comment: Speci men Type: BLOOD SPECIMENOrdering Facility: [facility] Address: [address] [place] [address] Performed By: #### 5 7021-8 ####[facility] LABORATORYCLIA [id number] [address] STATES [facility] MCH (RBC) [Entitic mass] 29.8 pg Normal 26.0-34.0 [facility] Comment on above: Order Comment: Speci men Type: BLOOD SPECIMENOrdering Facility: [facility] Address: [address] [place] [address] Performed By: #### 5 7021-8 ####[facility] LABORATORYCLIA [id number] [address] [place] MCHC (RBC) [Mass/Vol] 32.0 g/dL Normal 30.5-36.0 [facility] Comment on above: Order Comment: Speci men Type: BLOOD SPECIMENOrdering Facility: [facility] Address: [address] [place] [address] Performed By: #### 5 7021-8 ####[facility] LABORATORYCLIA [id number] [address] [place] MCV (RBC) [Entitic vol] 93.2 fL Normal 80.0-100.0 [facility] Comment on above: Order Comment: Speci men Type: BLOOD SPECIMENOrdering Facility: [facility] Address: [address] [place] [address] Performed By: #### 5 7021-8 ####[facility] LABORATORYCLIA [id number] [address] Monocytes (Bld) [#/Vol] 0.74 10*3/uL Normal <0.87 [facility] Comment on above: Order Comment: Speci men Type: BLOOD SPECIMENOrdering Facility: [facility] Address: [address] [place] [address] Performed By: #### 5 7021-8 ####[facility] LABORATORYCLIA [id number] [address] [place] Monocytes/100 WBC (Bld) 8.9 % Normal [facility] Comment on above: Order Comment: Speci men Type: BLOOD SPECIMENOrdering Facility: [facility] Address: [address] [place] [address] Performed By: #### 5 7021-8 ####[facility] LABORATORYCLIA [id number] [place] [address] [place] Neutrophils (Bld) [#/Vol] 6.70 10*3/uL Normal 1.45-7.50 [facility] Comment on above: Order Comment: Speci men Type: BLOOD SPECIMENOrdering Facility: [facility] Address: [address] [place] [address] Performed By: #### 5 7021-8 ####[facility] LABORATORYCLIA [id number] [address] [place] Neutrophils/100 WBC (Bld) 80.7 % Normal [facility] Comment on above: Order Comment: Speci men Type: BLOOD SPECIMENOrdering Facility: [facility] Address: [address] [place] [address] Performed By: #### 5 7021-8 ####[facility] LABORATORYCLIA [id number] [place] [address] [place] Nucleated RBC (Bld) [#/Vol] 10*3/uL Normal <0.01 [facility] Comment on above: Order Comment: Speci men Type: BLOOD SPECIMENOrdering Facility: [facility] Address: [address] [place] [address] Performed By: #### 5 7021-8 ####[facility] LABORATORYCLIA [id number] [place] [address] [place] Nucleated RBC/100 WBC (Bld) [Ratio] 0.0 /100 WBC Normal [facility] Comment on above: Order Comment: Speci men Type: BLOOD SPECIMENOrdering Facility: [facility] Address: [address] [place] [address] Performed By: #### 5 7021-8 ####[facility] LABORATORYCLIA [id number] [place] [address] [place] Platelet mean volume (Bld) [Entitic vol] 9.7 fL Normal 9.0-12.7 [facility] Comment on above: Order Comment: Speci men Type: BLOOD SPECIMENOrdering Facility: [facility] Address: [place] [address] Performed By: #### 5 7021-8 ####[facility] LABORATORYCLIA [id number] [place] [id number] [place] Platelets (Bld) [#/Vol] 262 10*3/uL Normal 150-400 [facility] Comment on above: Order Comment: Speci men Type: BLOOD SPECIMENOrdering Facility: [facility] Address: [address] [place] [address] Performed By: #### 5 7021-8 ####[facility] LABORATORYCLIA [id number] [place] [id number] [place] RBC (Bld) [#/Vol] 2.65 10*6/uL Low 4.20-6.00 [facility] Comment on above: Order Comment: Speci men Type: BLOOD SPECIMENOrdering Facility: [facility] Address: [address] [place] [address] Performed By: #### 5 7021-8 ####[facility] LABORATORYCLIA [id number] [place] [id number] [place] WBC (Bld) [#/Vol] 8.31 10*3/uL Normal 3.70-11.00 [facility] Comment on above: Order Comment: Speci men Type: BLOOD SPECIMENOrdering Facility: [facility] Address: [address] [place] [address] Performed By: #### 5 7021-8 ####[facility] LABORATORYCLIA [id number] [place] [id number] [facility] [place] Comprehensive metabolic 2000 panelon 08-23-2023 Albumin [Mass/Vol] 2.6 g/dL Low 3.2-5.0 [facility] Comment on above: Order Comment: Speci men Type: BLOOD SPECIMENOrdering Facility: [facility] Address: [address] [place] [address] Performed By: #### 2 4323-8, , 2776-09 ####[facility] LABORATORYCLIA [id number] [place] [id number] [place] ALP [Catalytic activity/Vol] 66 U/L Normal 45-117 [facility] Comment on above: Order Comment: Speci men Type: BLOOD SPECIMENOrdering Facility: [facility] Address: [address] [place] [address] Performed By: #### 2 4323-8, , 2776-09 ####[facility] LABORATORYCLIA [id number] [place] [id number] [place] ALT [Catalytic activity/Vol] U/L Low 13-61 [facility] Comment on above: Order Comment: Speci men Type: BLOOD SPECIMENOrdering Facility: [facility] Address: [address] [place] [address] Result Comment: Resu lts may be falsely depressed after the administration of Sulfasalazine and/or Sulfapyridine. Performed By: #### 2 4323-8, , 2776-09 ####[facility] LABORATORYCLIA [id number] [place] [address] [place] Anion gap [Moles/Vol] mmol/L Low 5-16 [facility] Comment on above: Order Comment: Speci men Type: BLOOD SPECIMENOrdering Facility: [facility] Address: [address] [place] [address] Performed By: #### 2 4323-8, , 2776-09 ####[facility] [facility] LABORATORYCLIA [id number] [place] [address] [place] AST [Catalytic activity/Vol] 15 U/L Normal 8-34 [facility] Comment on above: Order Comment: Speci men Type: BLOOD SPECIMENOrdering Facility: [facility] Address: [address] [place] [address] Result Comment: Resu lts may be falsely depressed after the administration of Sulfasalazine and/or Sulfapyridine. Performed By: #### 2 4323-8, , 2776-09 ####[facility] LABORATORYCLIA [id number] [place] [id number] [place] Bilirubin [Mass/Vol] 0.4 mg/dL Normal 0.2-1.0 [facility] Comment on above: Order Comment: Speci men Type: BLOOD SPECIMENOrdering Facility: [facility] Address: [address] [place] [address] Performed By: #### 2 432-8, , 2776-09 ####[facility] LABORATORYCLIA [id number] [place] [id number] [place] Calcium [Mass/Vol] 8.7 mg/dL Normal 8.5-10.5 [facility] Comment on above: Order Comment: Speci men Type: BLOOD SPECIMENOrdering Facility: [facility] Address: [address] [place], [place] [address] Performed By: #### 2 432-8, , 2776-09 ####[facility] LABORATORYCLIA [id number] [place] [address] [place] Chloride [Moles/Vol] 104 mmol/L Normal 98-107 [facility] Comment on above: Order Comment: Speci men Type: BLOOD SPECIMENOrdering Facility: [facility] Address: [address] [place], [place] [address] Performed By: #### 2 4323-8, , 2776-09 ####[facility] LABORATORYCLIA [id number] [place] [id number] [place] CO2 [Moles/Vol] 28 mmol/L Normal 21-32 [facility] Comment on above: Order Comment: Speci men Type: BLOOD SPECIMENOrdering Facility: [facility] Address: [address] [place] [address] Performed By: #### 2 4323-8, , 2776-09 ####[facility] LABORATORYCLIA [id number] [place] [address] [place] Creatinine [Mass/Vol] 4.05 mg/dL High 0.50-1.40 [facility] Comment on above: Order Comment: Elizabeth riggs Type: BLOOD SPECIMENOrdering Facility: [facility] Address: [address] [place] [address] Result Comment: Raquel ents receiving either N-Acetylcysteine (NAC) or Metamizole prior to venipuncture, may have falsely depressed results. Performed By: #### 2 4323-8, , 2776-09 ####[facility] LABORATORYCLIA [id number] [address] Creatinine and Glomerular filtration rate.predicted panel (S/P/Bld) 15 mL/min/1.73m??? Low >=60 [facility] Comment on above: Order Comment: Elizabeth riggs Type: BLOOD SPECIMENOrdering Facility: [facility] Address: [place] [address] Result Comment: More mated Glomerular Filtration Rate (eGFR) is calculated using the 2020 CKD-EPI creatinine equation. This equation utilizes serum creatinine, sex, and age as parameters. The creatinine assay has traceable calibration to isotope dilution-mass spectrometry. Refer to KDIGO guidelines for clinical interpretation. In patients with unstable renal function, e.g. those with acute kidney injury, the eGFR may not accurately reflect actual GFR. Performed By: #### 2 4323-8, 14448-8, 2776-09 ####[facility] LABORATORYCLIA [id number] [place] [id number] [place] Glucose [Mass/Vol] 129 mg/dL High 70-100 [facility] Comment on above: Order Comment: Elizabeth riggs Type: BLOOD SPECIMENOrdering Facility: [facility] Address: [address] [place] [address] Result Comment: The [place] Diabetes [employer] (ADA) provides guidance for cutoff values for fasting glucose and random glucose. The ADA defines fasting as no caloric intake for at least 8 hours. Fasting plasma glucose results between 100 to 125 mg/dL indicate increased risk for diabetes (prediabetes).Fasting plasma glucose results greater than or equal to 126 mg/dL meet the criteria for diagnosis of diabetes. In the absence of unequivocal hyperglycemia, results should be confirmed by repeat testing. In a patient with classic symptoms of hyperglycemia or hyperglycemic crisis, random plasma glucose results greater than or equal to 200 mg/dL meet the criteria for diagnosis of diabetes.Reference: Standards of Medical Care in Diabetes 2016, [place] [employer]. Diabetes Care. 2016.39(Suppl 1).Results may be falsely elevated after the administration of Sulfapyridine.Results may be falsely depressed after the administration of Sulfasalazine. Performed By: #### 2 4323-8, , 2776-09 ####[facility] LABORATORYCLIA [id number] [place] [id number] [place] Potassium [Moles/Vol] 4.6 mmol/L Normal 3.5-5.1 [facility] Comment on above: Order Comment: Elizabeth riggs Type: BLOOD SPECIMENOrdering Facility: [facility] Address: [address] [place] [address] Performed By: #### 2 4323-8, , 2776-09 ####[facility] LABORATORYCLIA [id number] [place] [id number] [place] Protein [Mass/Vol] 5.4 g/dL Low 6.0-8.5 [facility] Comment on above: Order Comment: Elizabeth riggs Type: BLOOD SPECIMENOrdering Facility: [facility] Address: [address] [place] [address] Performed By: #### 2 4323-8, , 2776-09 ####[facility] LABORATORYCLIA [id number] [place] [id number] [place] Sodium [Moles/Vol] 133 mmol/L Low 136-145 [facility] Comment on above: Order Comment: Elizabeth riggs Type: BLOOD SPECIMENOrdering Facility: [facility] Address: [address] [place] [address] Performed By: #### 2 4323-8, , 2776-09 ####[facility] LABORATORYCLIA [id number] [place] [id number] [place] Urea nitrogen [Mass/Vol] 114 mg/dL High 7-26 [facility] Comment on above: Order Comment: Speci men Type: BLOOD SPECIMENOrdering Facility: [facility] Address: [address] [place] [address] Performed By: #### 2 4323-8, , 2776-09 ####[facility] LABORATORYCLIA [id number] [place] [id number] [place] Magnesium [facility] Magnesium [Mass/Vol] 1.8 mg/dL Normal 1.6-2.6 [facility] Comment on above: Order Comment: Speci men Type: BLOOD SPECIMENOrdering Facility: [facility] Address: [address] [place] [address] Performed By: #### 2 4323-8, , 2776-09 ####[facility] LABORATORYCLIA [id number] [place] [id number] [place] Phosphate SerPl-ncon 08-23 Phosphate [Mass/Vol] 4.9 mg/dL Normal 2.5-4.9 [facility] Comment on above: Order Comment: Speci men Type: BLOOD SPECIMENOrdering Facility: [facility] Address: [address] [place] [address] Result Comment: Elev ated m-protein (paraprotein) levels in the serum may be exhibited in patients with monoclonal gammopathies, causing falsely elevated inorganic phosphorus results. Performed By: #### 2 4323-8, , 2776-09 ####[facility] LABORATORYCLIA [id number] [place] [id number] [place] Basic metabolic 2000 panelon 08-22-2023 Anion gap [Moles/Vol] mmol/L Low 5-16 [facility] Comment on above: Order Comment: Speci men Type: BLOOD SPECIMENOrdering Facility: [facility] Address: [address] [place] [address] Performed By: #### 2 4321-2 ####[facility] LABORATORYCLIA [id number] [place] [address] [place] Calcium [Mass/Vol] 8.7 mg/dL Normal 8.5-10.5 [facility] Comment on above: Order Comment: Speci men Type: BLOOD SPECIMENOrdering Facility: [facility] Address: [address] [place] [address] Performed By: #### 2 4321-2 ####[facility] LABORATORYCLIA [id number] [place] [id number] [place] Chloride [Moles/Vol] 103 mmol/L Normal 98-107 [facility] Comment on above: Order Comment: Speci men Type: BLOOD SPECIMENOrdering Facility: [facility] Address: [address] [place] [address] Performed By: #### 2 4321-2 ####[facility] LABORATORYCLIA [id number] [place] [address] [place] CO2 [Moles/Vol] 28 mmol/L Normal 21-32 [facility] Comment on above: Order Comment: Speci men Type: BLOOD SPECIMENOrdering Facility: [facility] Address: [address] [place] [address] Performed By: #### 2 4321-2 ####[facility] LABORATORYCLIA [id number] [place] [address] [place] Creatinine [Mass/Vol] 4.02 mg/dL High 0.50-1.40 [facility] Comment on above: Order Comment: Speci men Type: BLOOD SPECIMENOrdering Facility: [facility] Address: [address] [place] [address] Result Comment: Raquel ents receiving either N-Acetylcysteine (NAC) or Metamizole prior to venipuncture, may have falsely depressed results. Performed By: #### 2 4321-2 ####[facility] LABORATORYCLIA [id number] [place] [address] [place] Creatinine and Glomerular filtration rate.predicted panel (S/P/Bld) 15 mL/min/1.73m??? Low >=60 [facility] Comment on above: Order Comment: Speci men Type: BLOOD SPECIMENOrdering Facility: [facility] Address: [address] [place] [address] Result Comment: More mated Glomerular Filtration Rate (eGFR) is calculated using the 2020 CKD-EPI creatinine equation. This equation utilizes serum creatinine, sex, and age as parameters. The creatinine assay has traceable calibration to isotope dilution-mass spectrometry. Refer to KDIGO guidelines for clinical interpretation. In patients with unstable renal function, e.g. those with acute kidney injury, the eGFR may not accurately reflect actual GFR. Performed By: #### 2 4321-2 ####[facility] LABORATORYCLIA [id number] [place] [address] [place] Glucose [Mass/Vol] 120 mg/dL High 70-100 [facility] Comment on above: Order Comment: Elizabeth riggs Type: BLOOD SPECIMENOrdering Facility: [facility] Address: [address] [place] [address] Result Comment: The [place] Diabetes [employer] (ADA) provides guidance for cutoff values for fasting glucose and random glucose. The ADA defines fasting as no caloric intake for at least 8 hours. Fasting plasma glucose results between 100 to 125 mg/dL indicate increased risk for diabetes (prediabetes).Fasting plasma glucose results greater than or equal to 126 mg/dL meet the criteria for diagnosis of diabetes. In the absence of unequivocal hyperglycemia, results should be confirmed by repeat testing. In a patient with classic symptoms of hyperglycemia or hyperglycemic crisis, random plasma glucose results greater than or equal to 200 mg/dL meet the criteria for diagnosis of diabetes.Reference: Standards of Medical Care in Diabetes 2016, [place] [employer]. Diabetes Care. 2016.39(Suppl 1).Results may be falsely elevated after the administration of Sulfapyridine.Results may be falsely depressed after the administration of Sulfasalazine. Performed By: #### 2 4321-2 ####[facility] LABORATORYCLIA [id number] [place] [id number] [place] Potassium [Moles/Vol] 4.5 mmol/L Normal 3.5-5.1 [facility] Comment on above: Order Comment: Elizabeth riggs Type: BLOOD SPECIMENOrdering Facility: [facility] Address: [address] [place] [address] Performed By: #### 2 4321-2 ####[facility] LABORATORYCLIA [id number] [place] [id number] [place] Sodium [Moles/Vol] 133 mmol/L Low 136-145 [facility] Comment on above: Order Comment: Speci men Type: BLOOD SPECIMENOrdering Facility: [facility] Address: [address] [place] [address] Performed By: #### 2 4321-2 ####[facility] LABORATORYCLIA [id number] [place] [id number] [place] Urea nitrogen [Mass/Vol] 111 mg/dL High 7-26 [facility] Comment on above: Order Comment: Speci men Type: BLOOD SPECIMENOrdering Facility: [facility] Address: [address] [place] [address] Performed By: #### 2 4321-2 ####[facility] LABORATORYCLIA [id number] [place] [id number] [place] Basic metabolic 2000 panelon 08-21-2023 Anion gap [Moles/Vol] 5 mmol/L Normal 5-16 [facility] Comment on above: Order Comment: Speci men Type: BLOOD SPECIMENOrdering Facility: [facility] Address: [address] [place] [address] Performed By: #### 2 4321-2 ####[facility] LABORATORYCLIA [id number] [place] [address] [place] Calcium [Mass/Vol] 8.6 mg/dL Normal 8.5-10.5 [facility] Comment on above: Order Comment: Speci men Type: BLOOD SPECIMENOrdering Facility: [facility] Address: [address] [place] [address] Performed By: #### 2 4321-2 ####[facility] LABORATORYCLIA [id number] [place] [id number] [place] Chloride [Moles/Vol] 100 mmol/L Normal 98-107 [facility] Comment on above: Order Comment: Speci men Type: BLOOD SPECIMENOrdering Facility: [facility] Address: [address] [place] [address] Performed By: #### 2 4321-2 ####[facility] LABORATORYCLIA [id number] [place] [id number] [place] CO2 [Moles/Vol] 29 mmol/L Normal 21-32 [facility] Comment on above: Order Comment: Speci men Type: BLOOD SPECIMENOrdering Facility: [facility] Address: [address] [place] [address] Performed By: #### 2 4321-2 ####[facility] LABORATORYCLIA [id number] [address] [place] [facility] Creatinine [Mass/Vol] 4.14 mg/dL High 0.50-1.40 [facility] Comment on above: Order Comment: Speci men Type: BLOOD SPECIMENOrdering Facility: [facility] Address: [address] [place] [address] Result Comment: Raquel ents receiving either N-Acetylcysteine (NAC) or Metamizole prior to venipuncture, may have falsely depressed results. Performed By: #### 2 4321-2 ####[facility] LABORATORYCLIA [id number] [address] Creatinine and Glomerular filtration rate.predicted panel (S/P/Bld) 15 mL/min/1.73m??? Low >=60 [facility] Comment on above: Order Comment: Speci men Type: BLOOD SPECIMENOrdering Facility: [facility] Address: [address] [place] [address] Result Comment: More mated Glomerular Filtration Rate (eGFR) is calculated using the 2020 CKD-EPI creatinine equation. This equation utilizes serum creatinine, sex, and age as parameters. The creatinine assay has traceable calibration to isotope dilution-mass spectrometry. Refer to KDIGO guidelines for clinical interpretation. In patients with unstable renal function, e.g. those with acute kidney injury, the eGFR may not accurately reflect actual GFR. Performed By: #### 2 4321-2 ####[facility] LABORATORYCLIA [id number] [place] [id number] [place] Glucose [Mass/Vol] 109 mg/dL High 70-100 [facility] Comment on above: Order Comment: Elizabeth riggs Type: BLOOD SPECIMENOrdering Facility: [facility] Address: [address] [place] [address] Result Comment: The [place] Diabetes Association (ADA) provides guidance for cutoff values for fasting glucose and random glucose. The ADA defines fasting as no caloric intake for at least 8 hours. Fasting plasma glucose results between 100 to 125 mg/dL indicate increased risk for diabetes (prediabetes).Fasting plasma glucose results greater than or equal to 126 mg/dL meet the criteria for diagnosis of diabetes. In the absence of unequivocal hyperglycemia, results should be confirmed by repeat testing. In a patient with classic symptoms of hyperglycemia or hyperglycemic crisis, random plasma glucose results greater than or equal to 200 mg/dL meet the criteria for diagnosis of diabetes.Reference: Standards of Medical Care in Diabetes 2016, [place] [employer]. Diabetes Care. 2016.39(Suppl 1).Results may be falsely elevated after the administration of Sulfapyridine.Results may be falsely depressed after the administration of Sulfasalazine. Performed By: #### 2 4321-2 ####[facility] LABORATORYCLIA [id number] [place] [address] [place] Potassium [Moles/Vol] 4.3 mmol/L Normal 3.5-5.1 [facility] Comment on above: Order Comment: Elizabeth riggs Type: BLOOD SPECIMENOrdering Facility: [facility] Address: [address] [place] [address] Performed By: #### 2 4321-2 ####[facility] LABORATORYCLIA [id number] [place] [address] [place] Sodium [Moles/Vol] 134 mmol/L Low 136-145 [facility] Comment on above: Order Comment: Elizabeth keely Type: BLOOD SPECIMENOrdering Facility: [facility] Address: [address] [place] [address] Performed By: #### 2 4321-2 ####[facility] LABORATORYCLIA [id number] [place] [address] [place] Urea nitrogen [Mass/Vol] 115 mg/dL High 7-26 [facility] Comment on above: Order Comment: Speci men Type: BLOOD SPECIMENOrdering Facility: [facility] Address: [address] [place] [address] Performed By: #### 2 4321-2 ####[facility] LABORATORYCLIA [id number] [place] [address] [place] Basic metabolic 2000 panelon 08-20-2023 Anion gap [Moles/Vol] 3 mmol/L Low 5-16 [facility] Comment on above: Order Comment: Speci men Type: BLOOD SPECIMENOrdering Facility: [facility] Address: [address] [place] [address] Performed By: #### 2 4321-2 ####[facility] LABORATORYCLIA [id number] [place] [address] [place] Calcium [Mass/Vol] 8.7 mg/dL Normal 8.5-10.5 [facility] Comment on above: Order Comment: Speci men Type: BLOOD SPECIMENOrdering Facility: [facility] Address: [address] [place] [address] Performed By: #### 2 4321-2 ####[facility] LABORATORYCLIA [id number] [place] [address] [place] Chloride [Moles/Vol] 101 mmol/L Normal 98-107 [facility] Comment on above: Order Comment: Speci men Type: BLOOD SPECIMENOrdering Facility: [facility] Address: [address] [place] [address] Performed By: #### 2 4321-2 ####[facility] LABORATORYCLIA [id number] [place] [address] [place] CO2 [Moles/Vol] 31 mmol/L Normal 21-32 [facility] Comment on above: Order Comment: Speci men Type: BLOOD SPECIMENOrdering Facility: [facility] Address: [address] [place] [address] Performed By: #### 2 4321-2 ####[facility] LABORATORYCLIA [id number] [address] [place] Creatinine [Mass/Vol] 4.31 mg/dL High 0.50-1.40 [facility] Comment on above: Order Comment: Elizabeth riggs Type: BLOOD SPECIMENOrdering Facility: [facility] Address: [address] [place] [address] Result Comment: Raquel ents receiving either N-Acetylcysteine (NAC) or Metamizole prior to venipuncture, may have falsely depressed results. Performed By: #### 2 4321-2 ####[facility] LABORATORYCLIA [id number] [address] Creatinine and Glomerular filtration rate.predicted panel (S/P/Bld) 14 mL/min/1.73m??? Low >=60 [facility] Comment on above: Order Comment: Elizabeth riggs Type: BLOOD SPECIMENOrdering Facility: [facility] Address: [address] [place] [address] Result Comment: More mated Glomerular Filtration Rate (eGFR) is calculated using the 2020 CKD-EPI creatinine equation. This equation utilizes serum creatinine, sex, and age as parameters. The creatinine assay has traceable calibration to isotope dilution-mass spectrometry. Refer to KDIGO guidelines for clinical interpretation. In patients with unstable renal function, e.g. those with acute kidney injury, the eGFR may not accurately reflect actual GFR. Performed By: #### 2 4321-2 ####[facility] LABORATORYCLIA [id number] [place] [address] [place] Glucose [Mass/Vol] 82 mg/dL Normal 70-100 [facility] Comment on above: Order Comment: Elizabeth riggs Type: BLOOD SPECIMENOrdering Facility: [facility] Address: [address] [place] [address] Result Comment: The [place] Diabetes [employer] (ADA) provides guidance for cutoff values for fasting glucose and random glucose. The ADA defines fasting as no caloric intake for at least 8 hours. Fasting plasma glucose results between 100 to 125 mg/dL indicate increased risk for diabetes (prediabetes).Fasting plasma glucose results greater than or equal to 126 mg/dL meet the criteria for diagnosis of diabetes. In the absence of unequivocal hyperglycemia, results should be confirmed by repeat testing. In a patient with classic symptoms of hyperglycemia or hyperglycemic crisis, random plasma glucose results greater than or equal to 200 mg/dL meet the criteria for diagnosis of diabetes.Reference: Standards of Medical Care in Diabetes 2016, [place] [employer]. Diabetes Care. 2016.39(Suppl 1).Results may be falsely elevated after the administration of Sulfapyridine.Results may be falsely depressed after the administration of Sulfasalazine. Performed By: #### 2 4321-2 ####[facility] LABORATORYCLIA [id number] [place] [address] [place] Potassium [Moles/Vol] 4.8 mmol/L Normal 3.5-5.1 [facility] Comment on above: Order Comment: Sydnii keely Type: BLOOD SPECIMENOrdering Facility: [facility] Address: [address] [place] [address] Performed By: #### 2 4321-2 ####[facility] LABORATORYCLIA [id number] [place] [address] [place] Sodium [Moles/Vol] 135 mmol/L Low 136-145 [facility] Comment on above: Order Comment: Sydnii keely Type: BLOOD SPECIMENOrdering Facility: [facility] Address: [address] [place] [address] Performed By: #### 2 4321-2 ####[facility] LABORATORYCLIA [id number] [place] [address] [place] Urea nitrogen [Mass/Vol] 115 mg/dL High 7-26 [facility] Comment on above: Order Comment: Speci men Type: BLOOD SPECIMENOrdering Facility: [facility] Address: [address] [place] [address] Performed By: #### 2 4321-2 ####[facility] LABORATORYCLIA [id number] [place] [address] [place] Anion gap [Moles/Vol] 6 mmol/L Normal 5-16 [facility] Comment on above: Order Comment: Sydnii keely Type: BLOOD SPECIMENOrdering Facility: [facility] Address: [address] [place] [address] Performed By: #### 2 4321-2 ####[facility] LABORATORYCLIA [id number] [place] [id number] [place] Calcium [Mass/Vol] 8.5 mg/dL Normal 8.5-10.5 [facility] Comment on above: Order Comment: Speci men Type: BLOOD SPECIMENOrdering Facility: [facility] Address: [address] [place] [address] Performed By: #### 2 4321-2 ####[facility] LABORATORYCLIA [id number] [place] [id number] [place] Chloride [Moles/Vol] 98 mmol/L Normal 98-107 [facility] Comment on above: Order Comment: Speci men Type: BLOOD SPECIMENOrdering Facility: [facility] Address: [address] [place] [address] Performed By: #### 2 4321-2 ####[facility] LABORATORYCLIA [id number] [place] [address] [place] CO2 [Moles/Vol] 30 mmol/L Normal 21-32 [facility] Comment on above: Order Comment: Speci men Type: BLOOD SPECIMENOrdering Facility: [facility] Address: [address] [place] [address] Performed By: #### 2 4321-2 ####[facility] LABORATORYCLIA [id number] [place] [id number] [place] Creatinine [Mass/Vol] 4.45 mg/dL High 0.50-1.40 [facility] Comment on above: Order Comment: Speci men Type: BLOOD SPECIMENOrdering Facility: [facility] Address: [address] [place] [address] Result Comment: Raquel ents receiving either N-Acetylcysteine (NAC) or Metamizole prior to venipuncture, may have falsely depressed results. Performed By: #### 2 4321-2 ####[facility] LABORATORYCLIA [id number] [place] [id number] [place] Creatinine and Glomerular filtration rate.predicted panel (S/P/Bld) 13 mL/min/1.73m??? Low >=60 [facility] Comment on above: Order Comment: Elizabeth riggs Type: BLOOD SPECIMENOrdering Facility: [facility] Address: [address] [place] [address] Result Comment: More mated Glomerular Filtration Rate (eGFR) is calculated using the 2020 CKD-EPI creatinine equation. This equation utilizes serum creatinine, sex, and age as parameters. The creatinine assay has traceable calibration to isotope dilution-mass spectrometry. Refer to KDIGO guidelines for clinical interpretation. In patients with unstable renal function, e.g. those with acute kidney injury, the eGFR may not accurately reflect actual GFR. Performed By: #### 2 4321-2 ####[facility] LABORATORYCLIA [id number] [place] [id number] [place] Glucose [Mass/Vol] 73 mg/dL Normal 70-100 [facility] Comment on above: Order Comment: Elizabeth riggs Type: BLOOD SPECIMENOrdering Facility: [facility] Address: [address] [place] [address] Result Comment: The [place] [employer] (ADA) provides guidance for cutoff values for fasting glucose and random glucose. The ADA defines fasting as no caloric intake for at least 8 hours. Fasting plasma glucose results between 100 to 125 mg/dL indicate increased risk for diabetes (prediabetes).Fasting plasma glucose results greater than or equal to 126 mg/dL meet the criteria for diagnosis of diabetes. In the absence of unequivocal hyperglycemia, results should be confirmed by repeat testing. In a patient with classic symptoms of hyperglycemia or hyperglycemic crisis, random plasma glucose results greater than or equal to 200 mg/dL meet the criteria for diagnosis of diabetes.Reference: Standards of Medical Care in Diabetes 2016, [place] [employer]. Diabetes Care. 2016.39(Suppl 1).Results may be falsely elevated after the administration of Sulfapyridine.Results may be falsely depressed after the administration of Sulfasalazine. Performed By: #### 2 4321-2 ####[facility] LABORATORYCLIA [id number] [place] [id number] [place] Potassium [Moles/Vol] 4.8 mmol/L Normal 3.5-5.1 [facility] Comment on above: Order Comment: Speci men Type: BLOOD SPECIMENOrdering Facility: [facility] Address: [address] [place] [address] Performed By: #### 2 4321-2 ####[facility] LABORATORYCLIA [id number] [address] [place] Sodium [Moles/Vol] 134 mmol/L Low 136-145 [facility] Comment on above: Order Comment: Speci men Type: BLOOD SPECIMENOrdering Facility: [facility] Address: [address] [place] [address] Performed By: #### 2 4321-2 ####[facility] LABORATORYCLIA [id number] [address] [place] Urea nitrogen [Mass/Vol] 115 mg/dL High 7-26 [facility] Comment on above: Order Comment: Speci men Type: BLOOD SPECIMENOrdering Facility: [facility] Address: [address] [place] [address] Performed By: #### 2 4321-2 ####[facility] LABORATORYCLIA [id number] [address] [place] NT-proBNP [place] 08-20 Natriuretic peptide.B prohormone N-Terminal [Mass/Vol] 58819 pg/mL High <125 [facility] Comment on above: Order Comment: Speci men Type: BLOOD SPECIMENOrdering Facility: [facility] Address: [address] [place] [address] Result Comment: NT-p roBNP results of less than 300 pg/mL likely rules out acute congestive heart failure with 99% predictive value.NOTE: These cutoff points are suggested for ACUTE CHF DIAGNOSIS onlyLess than 50 years\X09\ Greater than 450 pg/mL50 - 75 years\X09\\X09\ Greater than 900 pg/mLGreater than 75 years\X09\ Greater than 1800 pg/mLNOTE NEW NORMAL RANGE Performed By: #### 3 3762-6 ####[facility] LABORATORYCLIA [id number] [place] [address] [place] Basic metabolic 2000 panelon 08-19-2023 Anion gap [Moles/Vol] 9 mmol/L Normal 5-16 [facility] Comment on above: Order Comment: Speci men Type: BLOOD SPECIMENOrdering Facility: [facility] Address: [address] [place] [address] Performed By: #### 2 4321-2 ####[facility] LABORATORYCLIA [id number] [place] [address] [place] Calcium [Mass/Vol] 8.5 mg/dL Normal 8.5-10.5 [facility] Comment on above: Order Comment: Speci men Type: BLOOD SPECIMENOrdering Facility: [facility] Address: [address] [place] [address] Performed By: #### 2 4321-2 ####[facility] LABORATORYCLIA [id number] [place] [address] [place] Chloride [Moles/Vol] 99 mmol/L Normal 98-107 [facility] Comment on above: Order Comment: Speci men Type: BLOOD SPECIMENOrdering Facility: [facility] Address: [address] [place] [address] Performed By: #### 2 4321-2 ####[facility] LABORATORYCLIA [id number] [place] [address] [place] CO2 [Moles/Vol] 29 mmol/L Normal 21-32 [facility] Comment on above: Order Comment: Speci men Type: BLOOD SPECIMENOrdering Facility: [facility] Address: [address] [place] [address] Performed By: #### 2 4321-2 ####[facility] LABORATORYCLIA [id number] [place] [address] [place] Creatinine [Mass/Vol] 4.56 mg/dL High 0.50-1.40 [facility] Comment on above: Order Comment: Speci men Type: BLOOD SPECIMENOrdering Facility: [facility] Address: [address] [place] [address] Result Comment: Raquel ents receiving either N-Acetylcysteine (NAC) or Metamizole prior to venipuncture, may have falsely depressed results. Performed By: #### 2 4321-2 ####[facility] LABORATORYCLIA [id number] [place] [address] [place] Creatinine and Glomerular filtration rate.predicted panel (S/P/Bld) 13 mL/min/1.73m??? Low >=60 [facility] Comment on above: Order Comment: Specalcides riggs Type: BLOOD SPECIMENOrdering Facility: [facility] Address: [address] [place] [address] Result Comment: More mated Glomerular Filtration Rate (eGFR) is calculated using the 2020 CKD-EPI creatinine equation. This equation utilizes serum creatinine, sex, and age as parameters. The creatinine assay has traceable calibration to isotope dilution-mass spectrometry. Refer to KDIGO guidelines for clinical interpretation. In patients with unstable renal function, e.g. those with acute kidney injury, the eGFR may not accurately reflect actual GFR. Performed By: #### 2 4321-2 ####[facility] LABORATORYCLIA [id number] [place] [address] [place] Glucose [Mass/Vol] 187 mg/dL High 70-100 [facility] Comment on above: Order Comment: Elizabeth riggs Type: BLOOD SPECIMENOrdering Facility: [facility] Address: [address] [place] [address] Result Comment: The [place] Diabetes [employer] (ADA) provides guidance for cutoff values for fasting glucose and random glucose. The ADA defines fasting as no caloric intake for at least 8 hours. Fasting plasma glucose results between 100 to 125 mg/dL indicate increased risk for diabetes (prediabetes).Fasting plasma glucose results greater than or equal to 126 mg/dL meet the criteria for diagnosis of diabetes. In the absence of unequivocal hyperglycemia, results should be confirmed by repeat testing. In a patient with classic symptoms of hyperglycemia or hyperglycemic crisis, random plasma glucose results greater than or equal to 200 mg/dL meet the criteria for diagnosis of diabetes.Reference: Standards of Medical Care in Diabetes 2016, [place] [employer]. Diabetes Care. 2016.39(Suppl 1).Results may be falsely elevated after the administration of Sulfapyridine.Results may be falsely depressed after the administration of Sulfasalazine. Performed By: #### 2 4321-2 ####[facility] LABORATORYCLIA [id number] [place] [address] [place] Potassium [Moles/Vol] 4.0 mmol/L Normal 3.5-5.1 [facility] Comment on above: Order Comment: Speci men Type: BLOOD SPECIMENOrdering Facility: [facility] Address: [address] [place] [address] Performed By: #### 2 4321-2 ####[facility] LABORATORYCLIA [id number] [place] [address] [place] Sodium [Moles/Vol] 137 mmol/L Normal 136-145 [facility] Comment on above: Order Comment: Speci men Type: BLOOD SPECIMENOrdering Facility: [facility] Address: [address] [place] [address] Performed By: #### 2 4321-2 ####[facility] LABORATORYCLIA [id number] [place] [address] [place] Urea nitrogen [Mass/Vol] 115 mg/dL High 7-26 [facility] Comment on above: Order Comment: Speci men Type: BLOOD SPECIMENOrdering Facility: [facility] Address: [address] [place] [address] Performed By: #### 2 4321-2 ####[facility] LABORATORYCLIA [id number] [place] [address] [place] CBC panel Auto (Bld)on 08-19 Erythrocyte distribution width (RBC) [Ratio] 13.9 % Normal 11.5-15.0 [facility] Comment on above: Order Comment: Speci men Type: BLOOD SPECIMENOrdering Facility: [facility] Address: [address] [place] [address] Performed By: #### 5 8410-2 ####[facility] LABORATORYCLIA [id number] [address] [place] Hematocrit (Bld) [Volume fraction] 26.4 % Low 39.0-51.0 [facility] Comment on above: Order Comment: Speci men Type: BLOOD SPECIMENOrdering Facility: [facility] Address: [address] [place] [address] Performed By: #### 5 8410-2 ####[facility] LABORATORYCLIA [id number] [address] [place] Hemoglobin (Bld) [Mass/Vol] 8.3 g/dL Low 13.0-17.0 [facility] Comment on above: Order Comment: Speci men Type: BLOOD SPECIMENOrdering Facility: [facility] Address: [address] [place] [address] Performed By: #### 5 8410-2 ####[facility] LABORATORYCLIA [id number] [address] [place] MCH (RBC) [Entitic mass] 29.2 pg Normal 26.0-34.0 [facility] Comment on above: Order Comment: Speci men Type: BLOOD SPECIMENOrdering Facility: [facility] Address: [address] [place] [address] Performed By: #### 5 8410-2 ####[facility] LABORATORYCLIA [id number] [address] MCHC (RBC) [Mass/Vol] 31.4 g/dL Normal 30.5-36.0 [facility] Comment on above: Order Comment: Speci men Type: BLOOD SPECIMENOrdering Facility: [facility] Address: [address] [place] [address] Performed By: #### 5 8410-2 ####[facility] LABORATORYCLIA [id number] [address] MCV (RBC) [Entitic vol] 93.0 fL Normal 80.0-100.0 [facility] Comment on above: Order Comment: Speci men Type: BLOOD SPECIMENOrdering Facility: [facility] Address: [address] [place] [address] Performed By: #### 5 8410-2 ####[facility] LABORATORYCLIA [id number] [address] [place] Nucleated RBC (Bld) [#/Vol] 10*3/uL Normal <0.01 [facility] Comment on above: Order Comment: Speci men Type: BLOOD SPECIMENOrdering Facility: [facility] Address: [address] [place] [address] Performed By: #### 5 8410-2 ####[facility] LABORATORYCLIA [id number] [place] [id number] [place] Platelet mean volume (Bld) [Entitic vol] 9.6 fL Normal 9.0-12.7 [facility] Comment on above: Order Comment: Speci men Type: BLOOD SPECIMENOrdering Facility: [facility] Address: [address] [place] [address] Performed By: #### 5 8410-2 ####[facility] LABORATORYCLIA [id number] [place] [id number] [place] Platelets (Bld) [#/Vol] 258 10*3/uL Normal 150-400 [facility] Comment on above: Order Comment: Speci men Type: BLOOD SPECIMENOrdering Facility: [facility] Address: [address] [place] [address] Performed By: #### 5 8410-2 ####[facility] LABORATORYCLIA [id number] [place] [address] [place] RBC (Bld) [#/Vol] 2.84 10*6/uL Low 4.20-6.00 [facility] Comment on above: Order Comment: Speci men Type: BLOOD SPECIMENOrdering Facility: [facility] Address: [address] [place] [address] Performed By: #### 5 8410-2 ####[facility] LABORATORYCLIA [id number] [place] [address] [place] WBC (Bld) [#/Vol] 6.73 10*3/uL Normal 3.70-11.00 [facility] Comment on above: Order Comment: Speci men Type: BLOOD SPECIMENOrdering Facility: [facility] Address: [address] [place] [address] Performed By: #### 5 8410-2 ####[facility] LABORATORYCLIA [id number] [place] [address] [place] ALLIED HEALTHon 08-18-2023 ALLIED HEALTH Normal [facility] CBC W Auto Differential pane l (Bld)on 08-18-2023 Basophils (Bld) [#/Vol] 10*3/uL Normal <0.11 [facility] Comment on above: Order Comment: Speci men Type: BLOOD SPECIMENOrdering Facility: [facility] Address: [address] [place] [address] Performed By: #### 5 7021-8 ####[facility] LABORATORYCLIA [id number] [address] Basophils/100 WBC (Bld) 0.2 % Normal [facility] Comment on above: Order Comment: Speci men Type: BLOOD SPECIMENOrdering Facility: [facility] Address: [address] [place] [address] Performed By: #### 5 7021-8 ####[facility] LABORATORYCLIA [id number] [address] [place] Differential cell count method Nom (Bld) Auto Normal [facility] Comment on above: Order Comment: Speci men Type: BLOOD SPECIMENOrdering Facility: [facility] Address: [address] [place] [address] Performed By: #### 5 7021-8 ####[facility] LABORATORYCLIA [id number] [place] [address] [place] Eosinophils (Bld) [#/Vol] 10*3/uL Normal <0.46 [facility] Comment on above: Order Comment: Speci men Type: BLOOD SPECIMENOrdering Facility: [facility] Address: [address] [place] [address] Performed By: #### 5 7021-8 ####[facility] LABORATORYCLIA [id number] [place] [address] [place] Eosinophils/100 WBC (Bld) 0.0 % Normal [facility] Comment on above: Order Comment: Speci men Type: BLOOD SPECIMENOrdering Facility: [facility] Address: [address] [place] [address] Performed By: #### 5 7021-8 ####[facility] LABORATORYCLIA [id number] [place] [id number] [place] Erythrocyte distribution width (RBC) [Ratio] 13.9 % Normal 11.5-15.0 [facility] Comment on above: Order Comment: Speci men Type: BLOOD SPECIMENOrdering Facility: [facility] Address: [address] [place] [address] Performed By: #### 5 7021-8 ####[facility] LABORATORYCLIA [id number] [place] [address] [place] Hematocrit (Bld) [Volume fraction] 28.6 % Low 39.0-51.0 [facility] Comment on above: Order Comment: Speci men Type: BLOOD SPECIMENOrdering Facility: [facility] Address: [address] [place] [address] Performed By: #### 5 7021-8 ####[facility] LABORATORYCLIA [id number] [place] [address] [place] Hemoglobin (Bld) [Mass/Vol] 8.9 g/dL Low 13.0-17.0 [facility] Comment on above: Order Comment: Speci men Type: BLOOD SPECIMENOrdering Facility: [facility] Address: [address] [place] [address] Performed By: #### 5 7021-8 ####[facility] LABORATORYCLIA [id number] [place] [address] [place] Immature granulocytes (Bld) [#/Vol] 0.04 10*3/uL Normal <0.10 [facility] Comment on above: Order Comment: Speci men Type: BLOOD SPECIMENOrdering Facility: [facility] Address: [address] [place] [address] Performed By: #### 5 7021-8 ####[facility] LABORATORYCLIA [id number] [place] [address] [place] Immature granulocytes/100 WBC (Bld) 0.8 % Normal [facility] Comment on above: Order Comment: Speci men Type: BLOOD SPECIMENOrdering Facility: [facility] Address: [address] [place] [address] Performed By: #### 5 7021-8 ####[facility] LABORATORYCLIA [id number] [place] [address] [place] Lymphocytes (Bld) [#/Vol] 0.46 10*3/uL Low 1.00-4.00 [facility] Comment on above: Order Comment: Speci men Type: BLOOD SPECIMENOrdering Facility: [facility] Address: [address] [place] [address] Performed By: #### 5 7021-8 ####[facility] LABORATORYCLIA [id number] [address] [place] Lymphocytes/100 WBC (Bld) 8.6 % Normal [facility] Comment on above: Order Comment: Speci men Type: BLOOD SPECIMENOrdering Facility: [facility] Address: [address] [place] [address] Performed By: #### 5 7021-8 ####[facility] LABORATORYCLIA [id number] [place] [address] [place] MCH (RBC) [Entitic mass] 29.0 pg Normal 26.0-34.0 [facility] Comment on above: Order Comment: Speci men Type: BLOOD SPECIMENOrdering Facility: [facility] Address: [address] [place] [address] Performed By: #### 5 7021-8 ####[facility] LABORATORYCLIA [id number] [place] [address] [place] MCHC (RBC) [Mass/Vol] 31.1 g/dL Normal 30.5-36.0 [facility] Comment on above: Order Comment: Speci men Type: BLOOD SPECIMENOrdering Facility: [facility] Address: [address] [place] [address] Performed By: #### 5 7021-8 ####[facility] LABORATORYCLIA [id number] [place] [address] [place] MCV (RBC) [Entitic vol] 93.2 fL Normal 80.0-100.0 [facility] Comment on above: Order Comment: Speci men Type: BLOOD SPECIMENOrdering Facility: [facility] Address: [address] [place] [address] Performed By: #### 5 7021-8 ####[facility] LABORATORYCLIA [id number] [place] [address] [place] Monocytes (Bld) [#/Vol] 0.51 10*3/uL Normal <0.87 [facility] Comment on above: Order Comment: Speci men Type: BLOOD SPECIMENOrdering Facility: [facility] Address: [address] [place] [address] Performed By: #### 5 7021-8 ####[facility] LABORATORYCLIA [id number] [address] [place] Monocytes/100 WBC (Bld) 9.6 % Normal [facility] Comment on above: Order Comment: Speci men Type: BLOOD SPECIMENOrdering Facility: [facility] Address: [address] [place] [address] Performed By: #### 5 7021-8 ####[facility] [facility] LABORATORYCLIA [id number] [place] [address] [place] Neutrophils (Bld) [#/Vol] 4.31 10*3/uL Normal 1.45-7.50 [facility] Comment on above: Order Comment: Speci men Type: BLOOD SPECIMENOrdering Facility: [facility] Address: [address] [place] [address] Performed By: #### 5 7021-8 ####[facility] LABORATORYCLIA [id number] [place] [address] [place] Neutrophils/100 WBC (Bld) 80.8 % Normal [facility] Comment on above: Order Comment: Speci men Type: BLOOD SPECIMENOrdering Facility: [facility] Address: [address] [place] [address] Performed By: #### 5 7021-8 ####[facility] LABORATORYCLIA [id number] [place] [id number] [place] Nucleated RBC (Bld) [#/Vol] 10*3/uL Normal <0.01 [facility] Comment on above: Order Comment: Speci men Type: BLOOD SPECIMENOrdering Facility: [facility] Address: [address] [place] [address] Performed By: #### 5 7021-8 ####[facility] LABORATORYCLIA [id number] [place] [id number] [place] Nucleated RBC/100 WBC (Bld) [Ratio] 0.0 /100 WBC Normal [facility] Comment on above: Order Comment: Speci men Type: BLOOD SPECIMENOrdering Facility: [facility] Address: [address] [place] [address] Performed By: #### 5 7021-8 ####[facility] LABORATORYCLIA [id number] [place] [address] [place] Platelet mean volume (Bld) [Entitic vol] 9.7 fL Normal 9.0-12.7 [facility] Comment on above: Order Comment: Speci men Type: BLOOD SPECIMENOrdering Facility: [facility] Address: [address] [place] [address] Performed By: #### 5 7021-8 ####[facility] LABORATORYCLIA [id number] [place] [id number] [place] Platelets (Bld) [#/Vol] 236 10*3/uL Normal 150-400 [facility] Comment on above: Order Comment: Speci men Type: BLOOD SPECIMENOrdering Facility: [facility] Address: [address] [place] [address] Performed By: #### 5 7021-8 ####[facility] LABORATORYCLIA [id number] [place] [id number] [place] RBC (Bld) [#/Vol] 3.07 10*6/uL Low 4.20-6.00 [facility] Comment on above: Order Comment: Speci men Type: BLOOD SPECIMENOrdering Facility: [facility] Address: [address] [place] [address] Performed By: #### 5 7021-8 ####[facility] LABORATORYCLIA [id number] [place] [id number] [place] WBC (Bld) [#/Vol] 5.33 10*3/uL Normal 3.70-11.00 [facility] Comment on above: Order Comment: Speci men Type: BLOOD SPECIMENOrdering Facility: [facility] Address: [address] [place] [address] Performed By: #### 5 7021-8 ####[facility] LABORATORYCLIA [id number] [place] [id number] [place] CONSULTon 08-18-2023 CONSULT Normal [facility] Comprehensive metabolic 2000 panelon 08-18-2023 Albumin [Mass/Vol] 2.5 g/dL Low 3.2-5.0 [facility] Comment on above: Order Comment: Speci men Type: BLOOD SPECIMENOrdering Facility: [facility] Address: [address] [place] [address] Performed By: #### 2 4323-8, 33835-7, 2777-1 ####[facility] LABORATORYCLIA [id number] [place] [id number] [place] ALP [Catalytic activity/Vol] 80 U/L Normal 45-117 [facility] Comment on above: Order Comment: Speci men Type: BLOOD SPECIMENOrdering Facility: [facility] Address: [address] [place] [address] Performed By: #### 2 4323-8, 11143-5, 2777-1 ####[facility] LABORATORYCLIA [id number] [place] [address] [place] ALT [Catalytic activity/Vol] U/L Low 13-61 [facility] Comment on above: Order Comment: Speci men Type: BLOOD SPECIMENOrdering Facility: [facility] Address: [address] [place] [address] Result Comment: Resu lts may be falsely depressed after the administration of Sulfasalazine and/or Sulfapyridine. Performed By: #### 2 4323-8, , 2776-09 ####[facility] LABORATORYCLIA [id number] [place] [id number] [place] Anion gap [Moles/Vol] 7 mmol/L Normal 5-16 [facility] Comment on above: Order Comment: Speci men Type: BLOOD SPECIMENOrdering Facility: [facility] Address: [address] [place] [address] Performed By: #### 2 4323-8, , 2776-09 ####[facility] LABORATORYCLIA [id number] [place] [id number] [place] AST [Catalytic activity/Vol] 17 U/L Normal 8-34 [facility] Comment on above: Order Comment: Speci men Type: BLOOD SPECIMENOrdering Facility: [facility] Address: [address] [place] [address] Result Comment: Resu lts may be falsely depressed after the administration of Sulfasalazine and/or Sulfapyridine. Performed By: #### 2 4323-8, , 2776-09 ####[facility] LABORATORYCLIA [id number] [place] [id number] [place] Bilirubin [Mass/Vol] 0.2 mg/dL Normal 0.2-1.0 [facility] Comment on above: Order Comment: Speci men Type: BLOOD SPECIMENOrdering Facility: [facility] Address: [address] [place], [place] [address] Performed By: #### 2 4323-8, , 2776-09 ####[facility] LABORATORYCLIA [id number] [place] [id number] [place] Calcium [Mass/Vol] 8.7 mg/dL Normal 8.5-10.5 [facility] Comment on above: Order Comment: Speci men Type: BLOOD SPECIMENOrdering Facility: [facility] Address: [address] [place] [address] Performed By: #### 2 4323-8, , 2776-09 ####[facility] LABORATORYCLIA [id number] [place] [address] [place] Chloride [Moles/Vol] 101 mmol/L Normal 98-107 [facility] Comment on above: Order Comment: Speci men Type: BLOOD SPECIMENOrdering Facility: [facility] Address: [address] [place] [address] Performed By: #### 2 4323-8, , 2776-09 ####[facility] LABORATORYCLIA [id number] [place] [phone] [place] CO2 [Moles/Vol] 29 mmol/L Normal 21-32 [facility] Comment on above: Order Comment: Speci men Type: BLOOD SPECIMENOrdering Facility: [facility] Address: [address] [place] [address] Performed By: #### 2 4323-8, , 2776-09 ####[facility] LABORATORYCLIA [id number] [place] [phone] [place] Creatinine [Mass/Vol] 4.21 mg/dL High 0.50-1.40 [facility] Comment on above: Order Comment: Speci men Type: BLOOD SPECIMENOrdering Facility: [facility] Address: [address] [place] [address] Result Comment: Raquel ents receiving either N-Acetylcysteine (NAC) or Metamizole prior to venipuncture, may have falsely depressed results. Performed By: #### 2 4323-8, , 2776-09 ####[facility] LABORATORYCLIA [id number] [place] [address] [place] Creatinine and Glomerular filtration rate.predicted panel (S/P/Bld) 14 mL/min/1.73m??? Low >=60 [facility] Comment on above: Order Comment: Speci men Type: BLOOD SPECIMENOrdering Facility: [facility] Address: [address] [place] [address] Result Comment: More mated Glomerular Filtration Rate (eGFR) is calculated using the 2020 CKD-EPI creatinine equation. This equation utilizes serum creatinine, sex, and age as parameters. The creatinine assay has traceable calibration to isotope dilution-mass spectrometry. Refer to KDIGO guidelines for clinical interpretation. In patients with unstable renal function, e.g. those with acute kidney injury, the eGFR may not accurately reflect actual GFR. Performed By: #### 2 4323-8, , 2776-09 ####[facility] LABORATORYCLIA [id number] [place] [phone] [place] Glucose [Mass/Vol] 211 mg/dL High 70-100 [facility] Comment on above: Order Comment: Elizabeth riggs Type: BLOOD SPECIMENOrdering Facility: [facility] Address: [address] [place] [address] Result Comment: The [place] [employer] (ADA) provides guidance for cutoff values for fasting glucose and random glucose. The ADA defines fasting as no caloric intake for at least 8 hours. Fasting plasma glucose results between 100 to 125 mg/dL indicate increased risk for diabetes (prediabetes).Fasting plasma glucose results greater than or equal to 126 mg/dL meet the criteria for diagnosis of diabetes. In the absence of unequivocal hyperglycemia, results should be confirmed by repeat testing. In a patient with classic symptoms of hyperglycemia or hyperglycemic crisis, random plasma glucose results greater than or equal to 200 mg/dL meet the criteria for diagnosis of diabetes.Reference: Standards of Medical Care in Diabetes 2016, [place] [employer]. Diabetes Care. 2016.39(Suppl 1).Results may be falsely elevated after the administration of Sulfapyridine.Results may be falsely depressed after the administration of Sulfasalazine. Performed By: #### 2 4323-8, , 2776-09 ####[facility] LABORATORYCLIA [id number] [place] [id number] [place] Potassium [Moles/Vol] 4.2 mmol/L Normal 3.5-5.1 [facility] Comment on above: Order Comment: Elizabeth riggs Type: BLOOD SPECIMENOrdering Facility: [facility] Address: [address] [place] [address] Performed By: #### 2 4323-8, , 2776-09 ####[facility] LABORATORYCLIA [id number] [place] [phone] [place] Protein [Mass/Vol] 6.1 g/dL Normal 6.0-8.5 [facility] Comment on above: Order Comment: Speci men Type: BLOOD SPECIMENOrdering Facility: [facility] Address: [address] [place] [address] Performed By: #### 2 4323-8, , 2776-09 ####[facility] LABORATORYCLIA [id number] [place] [phone] [place] Sodium [Moles/Vol] 137 mmol/L Normal 136-145 [facility] Comment on above: Order Comment: Speci men Type: BLOOD SPECIMENOrdering Facility: [facility] Address: [address] [place] [address] Performed By: #### 2 4323-8, , 2776-09 ####[facility] LABORATORYCLIA [id number] [place] [address] [place] Urea nitrogen [Mass/Vol] 104 mg/dL High 7-26 [facility] Comment on above: Order Comment: Speci men Type: BLOOD SPECIMENOrdering Facility: [facility] Address: [address] [place] [address] Performed By: #### 2 4323-8, , 2776-09 ####[facility] LABORATORYCLIA [id number] [place] [phone] [place] HISTORY PHYSICALon HISTORY PHYSICAL Normal [facility] Magnesium SerPl-mCncon 08-18 Magnesium [Mass/Vol] 2.4 mg/dL Normal 1.6-2.6 [facility] Comment on above: Order Comment: Speci men Type: BLOOD SPECIMENOrdering Facility: [facility] Address: [address] [place] [address] Performed By: #### 2 4323-8, , 2776-09 ####[facility] LABORATORYCLIA [id number] [place] [address] [place] Phosphate SerPl-mCncon 08-18 Phosphate [Mass/Vol] 6.2 mg/dL High 2.5-4.9 [facility] Comment on above: Order Comment: Speci men Type: BLOOD SPECIMENOrdering Facility: [facility] Address: [facility] [place] [address] Result Comment: Elev ated m-protein (paraprotein) levels in the serum may be exhibited in patients with monoclonal gammopathies, causing falsely elevated inorganic phosphorus results. Performed By: #### 2 4323-8, 49563-7, 2777-1 ####[facility] LABORATORYCLIA [id number] [place] [phone] [place] XR CHEST 1V FRONTALon 2022 XR CHEST 1V FRONTAL Normal [facility] BMPon 2023 Anion gap [Moles/Vol] 19.8 mmol/L Normal 15-22 [facility] Comment on above: Performed By: #### L 100.0010 ####ML - [id number] [place] [address] Calcium [Mass/Vol] 8.4 mg/dL Low 8.8-10.2 [facility] Comment on above: Performed By: #### L 100.0010 ####ML [facility] [id number] [place] [address] Chloride [Moles/Vol] 89 mmol/L Low 98-107 [facility] Comment on above: Performed By: #### L 100.0010 ####ML [facility] [id number] [place] [address] CO2 [Moles/Vol] 28 mmol/L Normal 22-29 [facility] Comment on above: Performed By: #### L 100.0010 ####ML - [id number] [place] [address] Creatinine [Mass/Vol] 3.97 mg/dL High 0.73-1.22 [facility] Comment on above: Performed By: #### L 100.0010 ####ML - [id number] [facility] [place] [address] eGFR if AFR TIFFANY 18 [facility] Comment on above: Result Comment: eGFR >= 60 Indicates normal kidney function. * eGFR IS AN ESTIMATE * (AFR TIFFANY = ) (non-AFR AM = NON-) MDRD calculation used in the eGFR should not be used to dose medications. For further limitations of the eGFR please refer to the Physician Website or the National Kidney Disease Education Program website (www.nkdep.nih.gov). Performed By: #### L 100.0010 ####[address] [address] eGFR nonAFR Tiffany 15 [facility] Comment on above: Performed By: #### L 100.0010 ####[address] [address] Glucose [Mass/Vol] 143 mg/dL High 82-115 [facility] Comment on above: Performed By: #### L 100.0010 ####[address] [address] Potassium [Moles/Vol] 3.8 mmol/L Normal 3.5-5.0 [facility] Comment on above: Performed By: #### L 100.0010 ####[address] [address] Sodium [Moles/Vol] 133 mmol/L Low 135-145 [facility] Comment on above: Performed By: #### L 100.0010 ####[address] [address] Urea nitrogen [Mass/Vol] 92 mg/dL High 8-23 [facility] Comment on above: Performed By: #### L 100.0010 ####[address] [address] CBCon 2023 BASO# 0.04 x10(3) Normal 0.00-0.10 [facility] Comment on above: Performed By: #### L 200.0010 ####ML [facility] [id number] [place] [address] Basophils/100 WBC (Bld) 0.6 % Normal 0.0-1.0 [facility] Comment on above: Performed By: #### L 200.0010 ####ML [facility] [id number] [place] [address] EOS# 0.32 x10(3) Normal 0.00-0.54 [facility] Comment on above: Performed By: #### L 200.0010 ####ML [facility] [id number] [place] [address] Eosinophils/100 WBC (Bld) 5.0 % High 0.5-4.9 [facility] Comment on above: Performed By: #### L 200.0010 ####ML [address] [address] Erythrocyte distribution width (RBC) [Ratio] 17.0 % High 12.7-15.3 [facility] Comment on above: Performed By: #### L 200.0010 ####ML [address] [address] Hematocrit (Bld) [Volume fraction] 28.5 % Low 42.0-51.0 [facility] Comment on above: Performed By: #### L 200.0010 ####ML [facility] CJCWXHSGIR[address] [place] [address] Hemoglobin (Bld) [Mass/Vol] 8.7 g/dL Low 14.0-17.2 [facility] Comment on above: Performed By: #### L 200.0010 ####ML [facility] UOFMSDACCI[address] [place] [address] IMM GRAN# 0.04 x10(3) High 0-0 [facility] Comment on above: Performed By: #### L 200.0010 ####ML [facility] FGITPELEJL[address] [place] [address] IMM GRAN% 0.6 % Normal [facility] Comment on above: Performed By: #### L 200.0010 ####ML [facility] CJHAIRWIQC[address] [place] [address] LYMPH# 1.15 x10(3) Normal 1.00-3.50 [facility] Comment on above: Performed By: #### L 200.0010 ####ML - NSPDAGAKOC[address] [place] [address] Lymphocytes/100 WBC (Bld) 18.1 % Normal 16.0-48.0 [facility] Comment on above: Performed By: #### L 200.0010 ####ML [facility] DLEAOLRTVA[address] [place] [address] MCH (RBC) [Entitic mass] 29.4 pg Normal 28.8-32.2 [facility] Comment on above: Performed By: #### L 200.0010 ####ML [facility] QLHLPOJQHR[address] [place] [address] MCHC (RBC) [Mass/Vol] 30.5 g/dL Low 33.0-36.0 [facility] Comment on above: Performed By: #### L 200.0010 ####ML [facility] QNKTIBDLAH[address] [place] [address] MCV (RBC) [Entitic vol] 96.3 fL High 80.0-94.0 [facility] Comment on above: Performed By: #### L 200.0010 ####ML [facility] ZAICDTIHHG[address] [place] [address] MONO# 0.72 x10(3) Normal 0.30-0.80 [facility] Comment on above: Performed By: #### L 200.0010 ####ML [facility] ZFJXEYSNTG[address] [place] [address] Monocytes/100 WBC (Bld) 11.3 % High 4.3-11.2 [facility] Comment on above: Performed By: #### L 200.0010 ####ML [facility] TJNSYGHQWN[address] [place] [address] NEUT# 4.08 x10(3) Normal 1.40-6.50 [facility] Comment on above: Performed By: #### L 200.0010 ####ML - GRGKTBSXFW791 [place] [address] Neutrophils/100 WBC (Bld) 64.4 % Normal 45.0-73.0 [facility] Comment on above: Performed By: #### L 200.0010 ####ML - BGWQVIVRAD[address] [place] [address] Platelet mean volume (Bld) [Entitic vol] 9.2 fL Normal 7.4-9.2 [facility] Comment on above: Performed By: #### L 200.0010 ####ML - MBKNARCXTH[address] [place] [address] PLT 183 X10(3) Normal 150-450 [facility] Comment on above: Performed By: #### L 200.0010 ####ML - OQYFWNYLQA[address] [place] [address] RBC 2.96 x10(6) Low 4.80-5.50 [facility] Comment on above: Performed By: #### L 200.0010 ####ML - ZVPOGHJQRV[address] [place] [address] WBC 6.4 x10(3) Normal 4.5-10.0 [facility] Comment on above: Performed By: #### L 200.0010 ####ML - NGUPZJYRXQ[address] [place] [address] GLUCOSE FSon 2023 Glucose [Mass/Vol] 163 mg/dL High 70-110 [facility] Comment on above: Performed By: #### L 100.0070 ####ML - [facility] MUELCFKJPW[address] [place] [address] Glucose [Mass/Vol] 130 mg/dL High 70-110 [facility] Comment on above: Performed By: #### L 100.0070 ####ML - RMQGKDEQKV[address] [place] [address] BMPon 05-25-2023 Anion gap [Moles/Vol] 12.0 mmol/L Low 15-22 [facility] Comment on above: Performed By: #### L 100.0390, L100.0010 #### - IUVNFDZYPQ222 [place] [address] Calcium [Mass/Vol] 8.2 mg/dL Low 8.8-10.2 [facility] Comment on above: Performed By: #### L 100.0390, L100.0010 #### - TYWNSQSKSN[address] [place] [address] Chloride [Moles/Vol] 89 mmol/L Low 98-107 [facility] Comment on above: Performed By: #### L 100.0390, L100.0010 ####[facility] [place] [address] CO2 [Moles/Vol] 38 mmol/L High 22-29 [facility] Comment on above: Performed By: #### L 100.0390, L100.0010 ####[facility] [place] [address] Creatinine [Mass/Vol] 4.29 mg/dL High 0.73-1.22 [facility] Comment on above: Performed By: #### L 100.0390, L100.0010 ####[address] [address] eGFR if AFR TIFFANY 17 Normal [facility] Comment on above: Result Comment: eGFR >= 60 Indicates normal kidney function. * eGFR IS AN ESTIMATE * (AFR TIFFANY = ) (non-AFR AM = NON-) MDRD calculation used in the eGFR should not be used to dose medications. For further limitations of the eGFR please refer to the Physician Website or the National Kidney Disease Education Program website (www.nkdep.nih.gov). Performed By: #### L 100.0390, L100.0010 ####[facility] JLWWCOGFWD243 [place] [address] eGFR nonAFR Tiffany 14 Normal [facility] Comment on above: Performed By: #### L 100.0390, L100.0010 ####ML - PTOMTNDHYU[address] [place] [address] Glucose [Mass/Vol] 126 mg/dL High 82-115 [facility] Comment on above: Performed By: #### L 100.0390, L100.0010 ####ML - YIFFQOPIKZ[address] [place] [address] Potassium [Moles/Vol] 4.0 mmol/L Normal 3.5-5.0 [facility] Comment on above: Performed By: #### L 100.0390, L100.0010 ####ML - GZGUQBCRHX[address] [place] [address] Sodium [Moles/Vol] 135 mmol/L Normal 135-145 [facility] Comment on above: Performed By: #### L 100.0390, L100.0010 ####ML - ZPIIGFOUNT[address] [place] [address] Urea nitrogen [Mass/Vol] 92 mg/dL High 8-23 [facility] Comment on above: Performed By: #### L 100.0390, L100.0010 ####ML [facility] RLLCIWFXFE[address] [place] [address] CBCon 05-25-2023 BASO# 0.04 x10(3) Normal 0.00-0.10 [facility] Comment on above: Performed By: #### L 200.0010 ####ML - RRSLTMTBGM[address] [place] [address] Basophils/100 WBC (Bld) 0.7 % Normal 0.0-1.0 [facility] Comment on above: Performed By: #### L 200.0010 ####ML - QCKGPMQCXY[address] [place] [address] EOS# 0.34 x10(3) Normal 0.00-0.54 [facility] Comment on above: Performed By: #### L 200.0010 ####ML - [address] [address] Eosinophils/100 WBC (Bld) 5.7 % High 0.5-4.9 [facility] Comment on above: Performed By: #### L 200.0010 ####[address] [address] Erythrocyte distribution width (RBC) [Ratio] 17.2 % High 12.7-15.3 [facility] Comment on above: Performed By: #### L 200.0010 ####ML [address] [address] Hematocrit (Bld) [Volume fraction] 28.0 % Low 42.0-51.0 [facility] Comment on above: Performed By: #### L 200.0010 ####ML [address] [address] Hemoglobin (Bld) [Mass/Vol] 8.6 g/dL Low 14.0-17.2 [facility] Comment on above: Performed By: #### L 200.0010 ####ML [address] [address] IMM GRAN# 0.05 x10(3) High 0-0 [facility] Comment on above: Performed By: #### L 200.0010 ####ML [address] [address] IMM GRAN% 0.8 % Normal [facility] Comment on above: Performed By: #### L 200.0010 ####ML [address] [address] LYMPH# 1.07 x10(3) Normal 1.00-3.50 [facility] Comment on above: Performed By: #### L 200.0010 ####[address] [address] Lymphocytes/100 WBC (Bld) 18.1 % Normal 16.0-48.0 [facility] Comment on above: Performed By: #### L 200.0010 ####ML [address] [address] MCH (RBC) [Entitic mass] 29.8 pg Normal 28.8-32.2 [facility] Comment on above: Performed By: #### L 200.0010 ####ML - EEVBBFNOSV[address] [place] [address] MCHC (RBC) [Mass/Vol] 30.7 g/dL Low 33.0-36.0 [facility] Comment on above: Performed By: #### L 200.0010 ####ML - RWPXJQHNGQ[address] [place] [address] MCV (RBC) [Entitic vol] 96.9 fL High 80.0-94.0 [facility] Comment on above: Performed By: #### L 200.0010 ####ML - [address] [address] MONO# 0.78 x10(3) Normal 0.30-0.80 [facility] Comment on above: Performed By: #### L 200.0010 ####ML - [address] [address] Monocytes/100 WBC (Bld) 13.2 % High 4.3-11.2 [facility] Comment on above: Performed By: #### L 200.0010 ####ML [address] [address] NEUT# 3.64 x10(3) Normal 1.40-6.50 [facility] Comment on above: Performed By: #### L 200.0010 ####ML [facility] [address] [place] [address] 65059 Neutrophils/100 WBC (Bld) 61.5 % Normal 45.0-73.0 [facility] Comment on above: Performed By: #### L 200.0010 ####ML [facility] ZMUIKDLYAE[address] [place] [address] 90219 Platelet mean volume (Bld) [Entitic vol] 9.1 fL Normal 7.4-9.2 [facility] Comment on above: Performed By: #### L 200.0010 ####ML [address] [address] PLT 198 X10(3) Normal 150-450 [facility] Comment on above: Performed By: #### L 200.0010 ####ML - YANBJWRNAP234 [place] [address] RBC 2.89 x10(6) Low 4.80-5.50 [facility] Comment on above: Performed By: #### L 200.0010 ####ML - EIUDHGXYSV[address] [place] [address] WBC 5.9 x10(3) Normal 4.5-10.0 [facility] Comment on above: Performed By: #### L 200.0010 ####ML - SNBSVYVYIT[address] [place] [address] 64035 GLUCOSE FSon 05-25-2023 Glucose [Mass/Vol] 182 mg/dL High 70-110 [facility] Comment on above: Performed By: #### L 100.0070 ####ML - JCGMYNBCAY[address] [place] [address] 15214 Glucose [Mass/Vol] 128 mg/dL High 70-110 [facility] Comment on above: Performed By: #### L 100.0070 ####ML - PUMNVTYQSN[address] [place] [address] 63255 Glucose [Mass/Vol] 171 mg/dL High 70-110 [facility] Comment on above: Performed By: #### L 100.0070 ####ML - MMPQIIGQZR[address] [place] [address] 32881 Glucose [Mass/Vol] 155 mg/dL High 70-110 [facility] Comment on above: Performed By: #### L 100.0070 ####ML - NQENGYZFVQ[address] [place] [address] MAGNESIUMon 05-25-2023 Magnesium [Mass/Vol] 1.8 mg/dL Normal 1.6-2.4 [facility] Comment on above: Performed By: #### L 100.0390, L100.0010 ####ML - BVSDPTRQPR[address] [place] [address] 77726 BMPon 05-24-2023 Anion gap [Moles/Vol] 14.5 mmol/L Low 15-22 [facility] Comment on above: Performed By: #### L 100.0390, L100.0010 ####ML - [facility] [place] [address] 63373 Calcium [Mass/Vol] 8.2 mg/dL Low 8.8-10.2 [facility] Comment on above: Performed By: #### L 100.0390, L100.0010 ####ML - [address] [address] Chloride [Moles/Vol] 91 mmol/L Low 98-107 [facility] Comment on above: Performed By: #### L 100.0390, L100.0010 ####ML - [address] [address] CO2 [Moles/Vol] 34 mmol/L High 22-29 [facility] Comment on above: Performed By: #### L 100.0390, L100.0010 ####ML - [address] [address] Creatinine [Mass/Vol] 4.13 mg/dL High 0.73-1.22 [facility] Comment on above: Performed By: #### L 100.0390, L100.0010 ####ML - [address] [address] eGFR if AFR TIFFANY 17 Normal [facility] Comment on above: Result Comment: eGFR >= 60 Indicates normal kidney function. * eGFR IS AN ESTIMATE * (AFR TIFFANY = ) (non-AFR AM = NON-) MDRD calculation used in the eGFR should not be used to dose medications. For further limitations of the eGFR please refer to the Physician Website or the National Kidney Disease Education Program website (www.nkdep.nih.gov). Performed By: #### L 100.0390, L100.0010 ####ML - OBDNBIYAIR458 [place] [address] eGFR nonAFR Tiffany 14 Normal [facility] Comment on above: Performed By: #### L 100.0390, L100.0010 ####ML - QHWQTKGVKC598 [place] [address] Glucose [Mass/Vol] 138 mg/dL High 82-115 [facility] Comment on above: Performed By: #### L 100.0390, L100.0010 ####ML - LWGUJYVNPC[address] [place] [address] Potassium [Moles/Vol] 3.5 mmol/L Normal 3.5-5.0 [facility] Comment on above: Performed By: #### L 100.0390, L100.0010 ####ML - VBREXAZPNF[address] [place] [address] 8[address]39 Sodium [Moles/Vol] 136 mmol/L Normal 135-145 [facility] Comment on above: Performed By: #### L 100.0390, L100.0010 ####ML - RYUEGDUHTN[address] [place] [address] 14167 Urea nitrogen [Mass/Vol] 84 mg/dL High 8-23 [facility] Comment on above: Performed By: #### L 100.0390, L100.0010 ####ML [facility] M[address]ZDLYGIEB[address] [place] [address] 71499 CBCon 05-24-2023 BASO# 0.05 x10(3) Normal 0.00-0.10 [facility] Comment on above: Performed By: #### L 200.0010 ####ML - EUOEYCSZGL056 [place] [address] Basophils/100 WBC (Bld) 0.7 % Normal 0.0-1.0 [facility] Comment on above: Performed By: #### L 200.0010 ####ML - BHMUDARBBQ275 [place] [address] EOS# 0.27 x10(3) Normal 0.00-0.54 [facility] Comment on above: Performed By: #### L 200.0010 ####ML - HWPRTRQQIK[address] [place] [address] 13424 Eosinophils/100 WBC (Bld) 3.8 % Normal 0.5-4.9 [facility] Comment on above: Performed By: #### L 200.0010 ####ML [facility] JHRWLXZMKL[address] [place] [address] 79361 Erythrocyte distribution width (RBC) [Ratio] 17.3 % High 12.7-15.3 [facility] Comment on above: Performed By: #### L 200.0010 ####ML [facility] PRGREATVYK[address] [place] [address] 64612 Hematocrit (Bld) [Volume fraction] 29.1 % Low 42.0-51.0 [facility] Comment on above: Performed By: #### L 200.0010 ####ML [address] [address] Hemoglobin (Bld) [Mass/Vol] 8.8 g/dL Low 14.0-17.2 [facility] Comment on above: Performed By: #### L 200.0010 ####ML [address] [address] IMM GRAN# 0.07 x10(3) High 0-0 [facility] Comment on above: Performed By: #### L 200.0010 ####ML [facility] OVILIFJIVR[address] [place] [address] IMM GRAN% 1.0 % Normal [facility] Comment on above: Performed By: #### L 200.0010 ####ML [facility] PZQZIBTDEL[address] [place] [address] 54558 LYMPH# 1.40 x10(3) Normal 1.00-3.50 [facility] Comment on above: Performed By: #### L 200.0010 ####ML [facility] GNKEWJJWZW[address] [place] [address] 91587 Lymphocytes/100 WBC (Bld) 19.6 % Normal 16.0-48.0 [facility] Comment on above: Performed By: #### L 200.0010 ####ML [facility] OOYWXAHOKL[address] [place] [address] 58370 MCH (RBC) [Entitic mass] 29.1 pg Normal 28.8-32.2 [facility] Comment on above: Performed By: #### L 200.0010 ####ML [address] [address] MCHC (RBC) [Mass/Vol] 30.2 g/dL Low 33.0-36.0 [facility] Comment on above: Performed By: #### L 200.0010 ####ML [address] [address] MCV (RBC) [Entitic vol] 96.4 fL High 80.0-94.0 [facility] Comment on above: Performed By: #### L 200.0010 ####ML [address] [address] MONO# 0.99 x10(3) High 0.30-0.80 [facility] Comment on above: Performed By: #### L 200.0010 ####ML [address] [address] Monocytes/100 WBC (Bld) 13.9 % High 4.3-11.2 [facility] Comment on above: Performed By: #### L 200.0010 ####[address] [address] NEUT# 4.35 x10(3) Normal 1.40-6.50 [facility] Comment on above: Performed By: #### L 200.0010 ####ML [address] [address] Neutrophils/100 WBC (Bld) 61.0 % Normal 45.0-73.0 [facility] Comment on above: Performed By: #### L 200.0010 ####[address] [address] Platelet mean volume (Bld) [Entitic vol] 9.0 fL Normal 7.4-9.2 [facility] Comment on above: Performed By: #### L 200.0010 ####ML [address] [place] [address] PLT 217 X10(3) Normal 150-450 [facility] Comment on above: Performed By: #### L 200.0010 ####ML - WAIEDEKFQY[address] [place] [address] 76[address] RBC 3.02 x10(6) Low 4.80-5.50 [facility] Comment on above: Performed By: #### L 200.0010 ####ML - RQGOTVVNBL[address] [place] [address]377 WBC 7.1 x10(3) Normal 4.5-10.0 [facility] Comment on above: Performed By: #### L 200.0010 ####ML - BITSDFYIEX[address] [place] [address]55 GLUCOSE FSon 05-24-2023 Glucose [Mass/Vol] 166 mg/dL High 70-110 [facility] Comment on above: Performed By: #### L 100.0070 ####ML - ALOOATXSKQ[address] [place] [address] 52464 Glucose [Mass/Vol] 107 mg/dL Normal 70-110 [facility] Comment on above: Performed By: #### L 100.0070 ####ML - AJOJTXTORV[address] [place] [address] 99529 Glucose [Mass/Vol] 166 mg/dL High 70-110 [facility] Comment on above: Performed By: #### L 100.0070 ####ML [facility] UTPAIUFMJX[address] [place] [address] 05986 Glucose [Mass/Vol] 132 mg/dL High 70-110 [facility] Comment on above: Performed By: #### L 100.0070 ####ML [facility] KDGGDHEIUY[address] [place] [address] 650[address] MAGNESIUMon 05-24-2023 Magnesium [Mass/Vol] 1.9 mg/dL Normal 1.6-2.4 [facility] Comment on above: Performed By: #### L 100.0390, L100.0010 ####ML - WOEOTNAYZN[address] [place] [address] 92474 CBCon 05-23-2023 BASO# 0.04 x10(3) Normal 0.00-0.10 [facility] Comment on above: Performed By: #### L 200.0010 ####ML [facility] [place] [address] 65987 Basophils/100 WBC (Bld) 0.5 % Normal 0.0-1.0 [facility] Comment on above: Performed By: #### L 200.0010 ####ML [facility] SDCMXJFVVA[address] [place] [address] 52056 EOS# 0.07 x10(3) Normal 0.00-0.54 [facility] Comment on above: Performed By: #### L 200.0010 ####ML [address] [address] Eosinophils/100 WBC (Bld) 0.9 % Normal 0.5-4.9 [facility] Comment on above: Performed By: #### L 200.0010 ####ML [address] [address] Erythrocyte distribution width (RBC) [Ratio] 17.0 % High 12.7-15.3 [facility] Comment on above: Performed By: #### L 200.0010 ####[address] [address] Hematocrit (Bld) [Volume fraction] 29.5 % Low 42.0-51.0 [facility] Comment on above: Performed By: #### L 200.0010 ####ML [address] [address] Hemoglobin (Bld) [Mass/Vol] 9.0 g/dL Low 14.0-17.2 [facility] Comment on above: Performed By: #### L 200.0010 ####ML [facility] YJFZQLWBWE[address] [place] [address] 22444 IMM GRAN# 0.08 x10(3) High 0-0 [facility] Comment on above: Performed By: #### L 200.0010 ####ML [facility] MCKHMQMURE[address] [place] [address] 12378 IMM GRAN% 1.0 % Normal [facility] Comment on above: Performed By: #### L 200.0010 ####ML [facility] QAEOUBSYYY[address] [place] [address] 85371 LYMPH# 1.20 x10(3) Normal 1.00-3.50 [facility] Comment on above: Performed By: #### L 200.0010 ####ML - MAEFOMUJPP[address] [place] [address] 03531 Lymphocytes/100 WBC (Bld) 14.7 % Low 16.0-48.0 [facility] Comment on above: Performed By: #### L 200.0010 ####ML - QUDPBJXKYQ[address] [place] [address] 66520 MCH (RBC) [Entitic mass] 29.3 pg Normal 28.8-32.2 [facility] Comment on above: Performed By: #### L 200.0010 ####ML [address] [address] MCHC (RBC) [Mass/Vol] 30.5 g/dL Low 33.0-36.0 [facility] Comment on above: Performed By: #### L 200.0010 ####ML [facility] ABXJKXYEPL[address] [place] [address] 69731 MCV (RBC) [Entitic vol] 96.1 fL High 80.0-94.0 [facility] Comment on above: Performed By: #### L 200.0010 ####ML [facility] FPYINRWSNU[address] [place] [address] MONO# 0.81 x10(3) High 0.30-0.80 [facility] Comment on above: Performed By: #### L 200.0010 ####ML [facility] ABDIHGJJGM[address] [place] [address] 19942 Monocytes/100 WBC (Bld) 9.9 % Normal 4.3-11.2 [facility] Comment on above: Performed By: #### L 200.0010 ####ML [facility] WEBZESQMLV[address] [place] [address] 05264 NEUT# 5.96 x10(3) Normal 1.40-6.50 [facility] Comment on above: Performed By: #### L 200.0010 ####ML - VGRYLJVEXT599 [place] [address] Neutrophils/100 WBC (Bld) 73.0 % Normal 45.0-73.0 [facility] Comment on above: Performed By: #### L 200.0010 ####ML - LSSDMDXPMY[address] [place] [address] 97051 Platelet mean volume (Bld) [Entitic vol] 9.2 fL Normal 7.4-9.2 [facility] Comment on above: Performed By: #### L 200.0010 ####ML [facility] NAYDKHWXKY[address] [place] [address] 56813 PLT 211 X10(3) Normal 150-450 [facility] Comment on above: Performed By: #### L 200.0010 ####ML - IWAYCNEMZU[address] [place] [address] 94451 RBC 3.07 x10(6) Low 4.80-5.50 [facility] Comment on above: Performed By: #### L 200.0010 ####ML - KBWFJWNWGO[address] [place] [address] 23428 WBC 8.2 x10(3) Normal 4.5-10.0 [facility] Comment on above: Performed By: #### L 200.0010 ####ML [facility] QLRQTKMZKH[address] [place] [address] 21416 CMPon 05-23-2023 ALT [Catalytic activity/Vol] U/L Low 5-41 [facility] Comment on above: Performed By: #### L 100.0390, L100.0005 ####ML - JDEAYWXYHW[address] [place] [address] 19740 A:G RATIO 0.83 Low 1.1-2.5 [facility] Comment on above: Performed By: #### L 100.0390, L100.0005 ####ML - TXARTCIRJL[address] [place] [address] 21384 Albumin [Mass/Vol] 3.1 g/dL Low 3.5-5.2 [facility] Comment on above: Performed By: #### L 100.0390, L100.0005 ####ML - SINVLTFERD636 [place] [address] ALK. PHOS 62 U/L Normal 40-130 [facility] Comment on above: Performed By: #### L 100.0390, L100.0005 ####ML - KBLZNEFFSR004 [place] [address] Anion gap [Moles/Vol] 14.3 mmol/L Low 15-22 [facility] Comment on above: Performed By: #### L 100.0390, L100.0005 ####ML - JGAXSSDLUL[address] [place] [address] 65978 AST [Catalytic activity/Vol] 13 U/L Normal 5-40 [facility] Comment on above: Performed By: #### L 100.0390, L100.0005 ####[facility] [address]QXQ[address]ZW[address] [place] [address] 19659 Bilirubin [Mass/Vol] 0.7 mg/dL Normal 0.2-1.2 [facility] Comment on above: Performed By: #### L 100.0390, L100.0005 ####ML - GDEFZYRFKF[address] [place] [address] 34965 Calcium [Mass/Vol] 8.9 mg/dL Normal 8.8-10.2 [facility] Comment on above: Performed By: #### L 100.0390, L100.0005 ####ML [facility] WTD[address]AFS[address] [place] [address] 29624 Chloride [Moles/Vol] 93 mmol/L Low 98-107 [facility] Comment on above: Performed By: #### L 100.0390, L100.0005 ####ML - XTOHTCYLYQ[address] [place] [address] 27758 CO2 [Moles/Vol] 35 mmol/L High 22-29 [facility] Comment on above: Performed By: #### L 100.0390, L100.0005 ####ML - JSAYXOKZSI[address] [place] [address] 41331 Creatinine [Mass/Vol] 3.76 mg/dL High 0.73-1.22 [facility] Comment on above: Performed By: #### L 100.0390, L100.0005 ####[address] [address] eGFR if AFR TIFFANY 19 Normal [facility] Comment on above: Result Comment: eGFR >= 60 Indicates normal kidney function. * eGFR IS AN ESTIMATE * (AFR TIFFANY = ) (non-AFR AM = NON-) MDRD calculation used in the eGFR should not be used to dose medications. For further limitations of the eGFR please refer to the Physician Website or the National Kidney Disease Education Program website (www.nkdep.nih.gov). Performed By: #### L 100.0390, L100.0005 ####[address] [address] eGFR nonAFR Tiffany 16 [facility] Comment on above: Performed By: #### L 100.0390, L100.0005 ####[address] [address] Globulin (S) [Mass/Vol] 3.7 g/dL Normal 1.5-4.5 [facility] Comment on above: Performed By: #### L 100.0390, L100.0005 ####[address] [address] Glucose [Mass/Vol] 153 mg/dL High 82-115 [facility] Comment on above: Performed By: #### L 100.0390, L100.0005 ####[address] [address] Potassium [Moles/Vol] 3.3 mmol/L Low 3.5-5.0 [facility] Comment on above: Performed By: #### L 100.0390, L100.0005 ####[address] [place] [address] Protein [Mass/Vol] 6.8 g/dL Normal 6.4-8.3 [facility] Comment on above: Performed By: #### L 100.0390, L100.0005 ####ML - JOYJLXLMII828 [place] [address] Sodium [Moles/Vol] 139 mmol/L Normal 135-145 [facility] Comment on above: Performed By: #### L 100.0390, L100.0005 ####ML - SVYNFYSQOU029 [place] [address] Urea nitrogen [Mass/Vol] 80 mg/dL High 8-23 [facility] Comment on above: Performed By: #### L 100.0390, L100.0005 ####ML [facility] BPZSBKYRDN[address] [place] [address] 01610 GLUCOSE FSon 05-23-2023 Glucose [Mass/Vol] 163 mg/dL High 70-110 [facility] Comment on above: Performed By: #### L 100.0070 ####ML - LZRQELTWYF[address] [place] [address] 33026 Glucose [Mass/Vol] 152 mg/dL High 70-110 [facility] Comment on above: Performed By: #### L 100.0070 ####ML [facility] MBKLFYPYHO[address] [place] [address] 55876 Glucose [Mass/Vol] 134 mg/dL High 70-110 [facility] Comment on above: Performed By: #### L 100.0070 ####ML - GCIPHBJQGT[address] [place] [address] 24005 Glucose [Mass/Vol] 135 mg/dL High 70-110 [facility] Comment on above: Performed By: #### L 100.0070 ####ML [facility] FZZOXVHBSV[address] [place] [address] 32296 MAGNESIUMon 05-23-2023 Magnesium [Mass/Vol] 1.8 mg/dL Normal 1.6-2.4 [facility] Comment on above: Performed By: #### L 100.0390, L100.0005 ####ML - VIQJKRORZK348 [place] [address] BMPon 05-22-2023 Anion gap [Moles/Vol] 15.5 mmol/L Normal 15-22 [facility] Comment on above: Performed By: #### L 100.0390, L100.0010 ####ML - NGYGNPXENU103 [place] [address] Calcium [Mass/Vol] 8.4 mg/dL Low 8.8-10.2 [facility] Comment on above: Performed By: #### L 100.0390, L100.0010 ####[facility] QCINHATOOG461 [place] [address] Chloride [Moles/Vol] 97 mmol/L Low 98-107 [facility] Comment on above: Performed By: #### L 100.0390, L100.0010 ####[facility] OPIDKWNRZA680 [place] [address] CO2 [Moles/Vol] 32 mmol/L High 22-29 [facility] Comment on above: Performed By: #### L 100.0390, L100.0010 ####[facility] MKZRPATGYU735 [place] [address] Creatinine [Mass/Vol] 3.83 mg/dL High 0.73-1.22 [facility] Comment on above: Performed By: #### L 100.0390, L100.0010 ####[facility] [address]ZGMNOGXV[address] [place] [address] 00705 eGFR if AFR TIFFANY 19 Normal [facility] Comment on above: Result Comment: eGFR >= 60 Indicates normal kidney function. * eGFR IS AN ESTIMATE * (AFR TIFFANY = ) (non-AFR AM = NON-) MDRD calculation used in the eGFR should not be used to dose medications. For further limitations of the eGFR please refer to the Physician Website or the National Kidney Disease Education Program website (www.nkdep.nih.gov). Performed By: #### L 100.0390, L100.0010 ####ML - XIJDUHQGGD696 [place] [address] eGFR nonAFR Tiffany 16 Normal [facility] Comment on above: Performed By: #### L 100.0390, L100.0010 ####ML - SQJHNUHJIZ[address] [place] [address] 04694 Glucose [Mass/Vol] 133 mg/dL High 82-115 [facility] Comment on above: Performed By: #### L 100.0390, L100.0010 ####ML - SMBTVHYLEQ[address] [place] [address] 21257 Potassium [Moles/Vol] 3.5 mmol/L Normal 3.5-5.0 [facility] Comment on above: Performed By: #### L 100.0390, L100.0010 ####ML - OCISOWWVSW[address] [place] [address] 27081 Sodium [Moles/Vol] 141 mmol/L Normal 135-145 [facility] Comment on above: Performed By: #### L 100.0390, L100.0010 ####[facility] CNHQBMMDMZ[address] [place] [address] 38329 Urea nitrogen [Mass/Vol] 77 mg/dL High 8-23 [facility] Comment on above: Performed By: #### L 100.0390, L100.0010 ####ML - FRQSAPZNOZ[address] [place] [address] 02773 CBCon 05-22-2023 BASO# 0.06 x10(3) Normal 0.00-0.10 [facility] Comment on above: Performed By: #### L 200.0010 ####ML [facility] WXDVGGMVZO[address] [place] [address] 73122 Basophils/100 WBC (Bld) 0.7 % Normal 0.0-1.0 [facility] Comment on above: Performed By: #### L 200.0010 ####ML - VJCBJOUTTW[address] [place] [address] 19085 EOS# 0.25 x10(3) Normal 0.00-0.54 [facility] Comment on above: Performed By: #### L 200.0010 ####ML [address] [address] Eosinophils/100 WBC (Bld) 3.0 % Normal 0.5-4.9 [facility] Comment on above: Performed By: #### L 200.0010 ####ML [address] [address] Erythrocyte distribution width (RBC) [Ratio] 17.2 % High 12.7-15.3 [facility] Comment on above: Performed By: #### L 200.0010 ####ML [address] [address] Hematocrit (Bld) [Volume fraction] 28.5 % Low 42.0-51.0 [facility] Comment on above: Performed By: #### L 200.0010 ####ML [address] [address] Hemoglobin (Bld) [Mass/Vol] 8.5 g/dL Low 14.0-17.2 [facility] Comment on above: Performed By: #### L 200.0010 ####ML [address] [address] IMM GRAN# 0.08 x10(3) High 0-0 [facility] Comment on above: Performed By: #### L 200.0010 ####ML [facility] RJF[address]YYSX[address] [place] [address] 04862 IMM GRAN% 1.0 % Normal [facility] Comment on above: Performed By: #### L 200.0010 ####ML [facility] VFZKZRJIED[address] [place] [address] 94028 LYMPH# 1.32 x10(3) Normal 1.00-3.50 [facility] Comment on above: Performed By: #### L 200.0010 ####ML [address] [address] Lymphocytes/100 WBC (Bld) 15.7 % Low 16.0-48.0 [facility] Comment on above: Performed By: #### L 200.0010 ####ML - WTGULPXBDS[address] [place] [address] 19717 MCH (RBC) [Entitic mass] 28.7 pg Low 28.8-32.2 [facility] Comment on above: Performed By: #### L 200.0010 ####ML - [address] [address] MCHC (RBC) [Mass/Vol] 29.8 g/dL Low 33.0-36.0 [facility] Comment on above: Performed By: #### L 200.0010 ####ML - [address] [address] MCV (RBC) [Entitic vol] 96.3 fL High 80.0-94.0 [facility] Comment on above: Performed By: #### L 200.0010 ####ML - [address] [address] MONO# 0.95 x10(3) High 0.30-0.80 [facility] Comment on above: Performed By: #### L 200.0010 ####ML [address] [address] Monocytes/100 WBC (Bld) 11.3 % High 4.3-11.2 [facility] Comment on above: Performed By: #### L 200.0010 ####ML [address] [address] NEUT# 5.74 x10(3) Normal 1.40-6.50 [facility] Comment on above: Performed By: #### L 200.0010 ####ML [facility] KRUV[address]PJC[address] [place] [address] 72299 Neutrophils/100 WBC (Bld) 68.3 % Normal 45.0-73.0 [facility] Comment on above: Performed By: #### L 200.0010 ####ML [address] [address] Platelet mean volume (Bld) [Entitic vol] 8.9 fL Normal 7.4-9.2 [facility] Comment on above: Performed By: #### L 200.0010 ####ML - [id number] [place] [address] PLT 211 X10(3) Normal 150-450 [facility] Comment on above: Performed By: #### L 200.0010 ####ML - [id number] [place] [address] RBC 2.96 x10(6) Low 4.80-5.50 [facility] Comment on above: Performed By: #### L 200.0010 ####ML - [id number] [place] [address] WBC 8.4 x10(3) Normal 4.5-10.0 [facility] Comment on above: Performed By: #### L 200.0010 ####ML - [id number] [place] [address] GLUCOSE FSon 05-22-2023 Glucose [Mass/Vol] 203 mg/dL High 70-110 [facility] Comment on above: Performed By: #### L 100.0070 ####ML - [id number] [place] [address] Glucose [Mass/Vol] 138 mg/dL High 70-110 [facility] Comment on above: Performed By: #### L 100.0070 ####ML - [id number] [place] [address] Glucose [Mass/Vol] 160 mg/dL High 70-110 [facility] Comment on above: Performed By: #### L 100.0070 ####ML - [id number] [facility] [place] [address] Glucose [Mass/Vol] 130 mg/dL High 70-110 [facility] Comment on above: Performed By: #### L 100.0070 ####ML - [id number] [place] [address] Glucose [Mass/Vol] 133 mg/dL High 70-110 [facility] Comment on above: Performed By: #### L 100.0070 ####ML - [id number] [place] [address] MAGNESIUMon 05-22-2023 Magnesium [Mass/Vol] 1.8 mg/dL Normal 1.6-2.4 [facility] Comment on above: Performed By: #### L 100.0390, L100.0010 ####ML [facility] [address] [place] [address] 01900 CBCon 05-21-2023 BASO# 0.05 x10(3) Normal 0.00-0.10 [facility] Comment on above: Performed By: #### L 200.0010 ####ML - [address] [address] Basophils/100 WBC (Bld) 0.5 % Normal 0.0-1.0 [facility] Comment on above: Performed By: #### L 200.0010 ####ML [address] [address] EOS# 0.25 x10(3) Normal 0.00-0.54 [facility] Comment on above: Performed By: #### L 200.0010 ####ML - QMORTFMDVC33344 [place] [address] 50193 Eosinophils/100 WBC (Bld) 2.7 % Normal 0.5-4.9 [facility] Comment on above: Performed By: #### L 200.0010 ####ML - QKOCEVBPQL41444 [place] [address] 40180 Erythrocyte distribution width (RBC) [Ratio] 16.8 % High 12.7-15.3 [facility] Comment on above: Performed By: #### L 200.0010 ####ML - NZUJAONPDE15344 [place] [address] 52691 Hematocrit (Bld) [Volume fraction] 28.8 % Low 42.0-51.0 [facility] Comment on above: Performed By: #### L 200.0010 ####ML - JQVLGXIXLX57244 [place] [address] 75471 Hemoglobin (Bld) [Mass/Vol] 8.6 g/dL Low 14.0-17.2 [facility] Comment on above: Performed By: #### L 200.0010 ####ML - GBSMTGOAWU[address] [place] [address] 67766 IMM GRAN# 0.12 x10(3) High 0-0 [facility] Comment on above: Performed By: #### L 200.0010 ####ML - PFNCHRKLGD728[address] [place] [address] 54155 IMM GRAN% 1.3 % Normal [facility] Comment on above: Performed By: #### L 200.0010 ####ML - AAUSLXDVWS20644 [place] [address] 16098 LYMPH# 1.28 x10(3) Normal 1.00-3.50 [facility] Comment on above: Performed By: #### L 200.0010 ####ML - [address] [address] Lymphocytes/100 WBC (Bld) 13.9 % Low 16.0-48.0 [facility] Comment on above: Performed By: #### L 200.0010 ####ML - XEZMETWZFY09644 [place] [address] 05856 MCH (RBC) [Entitic mass] 29.4 pg Normal 28.8-32.2 [facility] Comment on above: Performed By: #### L 200.0010 ####ML - [address] [address] MCHC (RBC) [Mass/Vol] 29.9 g/dL Low 33.0-36.0 [facility] Comment on above: Performed By: #### L 200.0010 ####ML - CQTUXHZBGN348[address] [place] [address] 51890 MCV (RBC) [Entitic vol] 98.3 fL High 80.0-94.0 [facility] Comment on above: Performed By: #### L 200.0010 ####ML - DXFAXUPEOB93244 [place] [address] 41273 MONO# 0.90 x10(3) High 0.30-0.80 [facility] Comment on above: Performed By: #### L 200.0010 ####ML - FEVPLWXEHW921 [place] [address] Monocytes/100 WBC (Bld) 9.8 % Normal 4.3-11.2 [facility] Comment on above: Performed By: #### L 200.0010 ####ML - VVMKPPMOAU[address] [place] [address] 00500 NEUT# 6.61 x10(3) High 1.40-6.50 [facility] Comment on above: Performed By: #### L 200.0010 ####ML - DPHJSAUYAM67344 [place] [address] 58710 Neutrophils/100 WBC (Bld) 71.8 % Normal 45.0-73.0 [facility] Comment on above: Performed By: #### L 200.0010 ####ML [address] [address] Platelet mean volume (Bld) [Entitic vol] 9.1 fL Normal 7.4-9.2 [facility] Comment on above: Performed By: #### L 200.0010 ####ML [address] [address] PLT 204 X10(3) Normal 150-450 [facility] Comment on above: Performed By: #### L 200.0010 ####ML [address] [address] RBC 2.93 x10(6) Low 4.80-5.50 [facility] Comment on above: Performed By: #### L 200.0010 ####ML [facility] LMVVSFKHGG[address] [place] [address] 60143 WBC 9.2 x10(3) Normal 4.5-10.0 [facility] Comment on above: Performed By: #### L 200.0010 ####[address] [address] CMPon 05-21-2023 ALT [Catalytic activity/Vol] U/L Low 5-41 [facility] Comment on above: Performed By: #### L 100.0005 ####ML [address] [address] A:G RATIO 0.78 Low 1.1-2.5 [facility] Comment on above: Performed By: #### L 100.0005 ####[address] [address] Albumin [Mass/Vol] 2.9 g/dL Low 3.5-5.2 [facility] Comment on above: Performed By: #### L 100.0005 ####[facility] FQSKROFDXG[address] [place] [address] 96647 ALK. PHOS 57 U/L Normal 40-130 [facility] Comment on above: Performed By: #### L 100.0005 ####ML [address] [address] Anion gap [Moles/Vol] 17.0 mmol/L Normal 15-22 [facility] Comment on above: Performed By: #### L 100.0005 ####[address] [address] AST [Catalytic activity/Vol] 12 U/L Normal 5-40 [facility] Comment on above: Performed By: #### L 100.0005 ####[address] [address] Bilirubin [Mass/Vol] 0.4 mg/dL Normal 0.2-1.2 [facility] Comment on above: Performed By: #### L 100.0005 ####[address] [address]143 Calcium [Mass/Vol] 8.4 mg/dL Low 8.8-10.2 [facility] Comment on above: Performed By: #### L 100.0005 ####ML [address] 46731 Chloride [Moles/Vol] 102 mmol/L Normal 98-107 [facility] Comment on above: Performed By: #### L 100.0005 ####ML [facility] CWRDAWRPCB[address] [place] [address] 37918 CO2 [Moles/Vol] 28 mmol/L Normal 22-29 [facility] Comment on above: Performed By: #### L 100.0005 ####ML - [facility] E[address] [place] [address] Creatinine [Mass/Vol] 3.82 mg/dL High 0.73-1.22 [facility] Comment on above: Performed By: #### L 100.0005 ####[address] [address]26[address] eGFR if AFR TIFFANY 19 [facility] Comment on above: Result Comment: eGFR >= 60 Indicates normal kidney function. * eGFR IS AN ESTIMATE * (AFR TIFFANY = ) (non-AFR AM = NON-) MDRD calculation used in the eGFR should not be used to dose medications. For further limitations of the eGFR please refer to the Physician Website or the National Kidney Disease Education Program website (www.nkdep.nih.gov). Performed By: #### L 100.0005 ####ML [address] [address] eGFR nonAFR Tiffany 16 [facility] Comment on above: Performed By: #### L 100.0005 ####[address] [address]168 Globulin (S) [Mass/Vol] 3.7 g/dL Normal 1.5-4.5 [facility] Comment on above: Performed By: #### L 100.0005 ####[address] [address] Glucose [Mass/Vol] 142 mg/dL High 82-115 [facility] Comment on above: Performed By: #### L 100.0005 ####[address] [address] Potassium [Moles/Vol] 4.0 mmol/L Normal 3.5-5.0 [facility] Comment on above: Performed By: #### L 100.0005 ####[address] [place] [address] Protein [Mass/Vol] 6.6 g/dL Normal 6.4-8.3 [facility] Comment on above: Performed By: #### L 100.0005 ####ML - LNGGSYHTTI[address] [place] [address] 76821 Sodium [Moles/Vol] 143 mmol/L Normal 135-145 [facility] Comment on above: Performed By: #### L 100.0005 ####ML - [address] [address] Urea nitrogen [Mass/Vol] 72 mg/dL High 8-23 [facility] Comment on above: Performed By: #### L 100.0005 ####ML - [address] [address]69 GLUCOSE FSon 05-21-2023 Glucose [Mass/Vol] 108 mg/dL Normal 70-110 [facility] Comment on above: Performed By: #### L 100.0070 ####ML - [address] [address] Glucose [Mass/Vol] 165 mg/dL High 70-110 [facility] Comment on above: Performed By: #### L 100.0070 ####ML - [address] [address] Glucose [Mass/Vol] 122 mg/dL High 70-110 [facility] Comment on above: Performed By: #### L 100.0070 ####ML - CGEXTAIMSQ98644 [place] [address] 29362 BMPon 05-20-2023 Anion gap [Moles/Vol] 16.9 mmol/L Normal 15-22 [facility] Comment on above: Performed By: #### L 100.0390, L100.0010 ####ML [address] [address] Calcium [Mass/Vol] 8.2 mg/dL Low 8.8-10.2 [facility] Comment on above: Performed By: #### L 100.0390, L100.0010 ####ML - ZAWVWNWPGI[address] [place] [address] 97279 Chloride [Moles/Vol] 102 mmol/L Normal 98-107 [facility] Comment on above: Performed By: #### L 100.0390, L100.0010 ####ML - SPZMETAKRE308 [place] [address] CO2 [Moles/Vol] 26 mmol/L Normal 22-29 [facility] Comment on above: Performed By: #### L 100.0390, L100.0010 ####ML - PNUSEWVUEU[address] [place] [address] 51970 Creatinine [Mass/Vol] 3.75 mg/dL High 0.73-1.22 [facility] Comment on above: Performed By: #### L 100.0390, L100.0010 ####ML - [address] [address] eGFR if AFR TIFFANY 19 [facility] Comment on above: Result Comment: eGFR >= 60 Indicates normal kidney function. * eGFR IS AN ESTIMATE * (AFR TIFFANY = ) (non-AFR AM = NON-) MDRD calculation used in the eGFR should not be used to dose medications. For further limitations of the eGFR please refer to the Physician Website or the National Kidney Disease Education Program website (www.nkdep.nih.gov). Performed By: #### L 100.0390, L100.0010 ####ML - GLHAWGTSGE160 [place] [address] eGFR nonAFR Tiffany 16 [facility] Comment on above: Performed By: #### L 100.0390, L100.0010 ####ML - UEXJRBKMWS467 [place] [address] Glucose [Mass/Vol] 136 mg/dL High 82-115 [facility] Comment on above: Performed By: #### L 100.0390, L100.0010 ####ML - ZXYTNDTORN776 [place] [address] Potassium [Moles/Vol] 3.9 mmol/L Normal 3.5-5.0 [facility] Comment on above: Performed By: #### L 100.0390, L100.0010 ####ML - WNWSUQRWNI[address] [place] [address] 72138 Sodium [Moles/Vol] 141 mmol/L Normal 135-145 [facility] Comment on above: Performed By: #### L 100.0390, L100.0010 ####ML - KINRIANLHF[address] [place] [address] 72939 Urea nitrogen [Mass/Vol] 69 mg/dL High 8-23 [facility] Comment on above: Performed By: #### L 100.0390, L100.0010 ####ML [address] [address] CBCon 05-20-2023 BASO# 0.08 x10(3) Normal 0.00-0.10 [facility] Comment on above: Performed By: #### L 200.0010, L200.0261 ####ML [facility] PZWLUQIXUH[address] [place] [address] 66337 Basophils/100 WBC (Bld) 0.9 % Normal 0.0-1.0 [facility] Comment on above: Performed By: #### L 200.0010, L200.0261 ####ML [facility] KWNCVFSITN[address] [place] [address] 26266 EOS# 0.29 x10(3) Normal 0.00-0.54 [facility] Comment on above: Performed By: #### L 200.0010, L200.0261 ####ML [facility] UECRDFEJAF[address] [place] [address] 20772 Eosinophils/100 WBC (Bld) 3.3 % Normal 0.5-4.9 [facility] Comment on above: Performed By: #### L 200.0010, L200.0261 ####ML [facility] ADMTRCHCZU[address] [place] [address] 51424 Erythrocyte distribution width (RBC) [Ratio] 16.5 % High 12.7-15.3 [facility] Comment on above: Performed By: #### L 200.0010, L200.0261 ####ML - YELVIIGVVS[address] [place] [address] 78157 Hematocrit (Bld) [Volume fraction] 28.5 % Low 42.0-51.0 [facility] Comment on above: Performed By: #### L 200.0010, L200.0261 ####ML - THALAUHYEY[address] [place] [address] 12575 Hemoglobin (Bld) [Mass/Vol] 8.5 g/dL Low 14.0-17.2 [facility] Comment on above: Performed By: #### L 200.0010, L200.0261 ####ML - WIYHRIWTSD[address] [place] [address] 18224 IMM GRAN# 0.09 x10(3) High 0-0 [facility] Comment on above: Performed By: #### L 200.0010, L200.0261 ####ML - KAOQSEPMET[address] [place] [address] 68878 IMM GRAN% 1.0 % Normal [facility] Comment on above: Performed By: #### L 200.0010, L200.0261 ####ML - OMHIJNHTHZ[address] [place] [address] 37817 LYMPH# 1.19 x10(3) Normal 1.00-3.50 [facility] Comment on above: Performed By: #### L 200.0010, L200.0261 ####ML - XHNVKYLUKA[address] [place] [address] 92022 Lymphocytes/100 WBC (Bld) 13.6 % Low 16.0-48.0 [facility] Comment on above: Performed By: #### L 200.0010, L200.0261 ####ML - QMTESBMGXS[address] [place] [address] 30897 MCH (RBC) [Entitic mass] 29.3 pg Normal 28.8-32.2 [facility] Comment on above: Performed By: #### L 200.0010, L200.0261 ####ML - YNNOKWANOG671 [place] [address] MCHC (RBC) [Mass/Vol] 29.8 g/dL Low 33.0-36.0 [facility] Comment on above: Performed By: #### L 200.0010, L200.0261 ####ML - LEIOESGOKN[address] [place] [address] 20725 MCV (RBC) [Entitic vol] 98.3 fL High 80.0-94.0 [facility] Comment on above: Performed By: #### L 200.0010, L200.0261 ####ML - GZPYKWWSON[address] [place] [address] 81688 MONO# 0.93 x10(3) High 0.30-0.80 [facility] Comment on above: Performed By: #### L 200.0010, L200.0261 ####ML [address] [address] Monocytes/100 WBC (Bld) 10.6 % Normal 4.3-11.2 [facility] Comment on above: Performed By: #### L 200.0010, L200.0261 ####[address] [address] NEUT# 6.16 x10(3) Normal 1.40-6.50 [facility] Comment on above: Performed By: #### L 200.0010, L200.0261 ####ML [facility] RECOHBQYFL[address] [place] [address] 37214 Neutrophils/100 WBC (Bld) 70.6 % Normal 45.0-73.0 [facility] Comment on above: Performed By: #### L 200.0010, L200.0261 ####ML - WHPRMTEWSR[address] [place] [address] 98615 Platelet mean volume (Bld) [Entitic vol] 9.2 fL Normal 7.4-9.2 [facility] Comment on above: Performed By: #### L 200.0010, L200.0261 ####ML - KOAHWXOGJF457 [place] [address] PLT 214 X10(3) Normal 150-450 [facility] Comment on above: Performed By: #### L 200.0010, L200.0261 ####ML - XSTOZZLYRQ[address] [place] [address] 35041 RBC 2.90 x10(6) Low 4.80-5.50 [facility] Comment on above: Performed By: #### L 200.0010, L200.0261 ####ML - ZIQEIOGXZX[address] [place] [address] 34397 WBC 8.7 x10(3) Normal 4.5-10.0 [facility] Comment on above: Performed By: #### L 200.0010, L200.0261 ####ML - JXYUIZQLIU[address] [place] [address] 82801 FOBon 05-20-2023 FOB. Negative Normal NEGATIVE [facility] Comment on above: Performed By: #### L 400.0040 ####ML - YINCZDOKJV[address] [place] [address] 89263 GLUCOSE FSon 05-20-2023 Glucose [Mass/Vol] 138 mg/dL High 70-110 [facility] Comment on above: Performed By: #### L 100.0070 ####ML [facility] OZAIDGGKMV[address] [place] [address] 27076 Glucose [Mass/Vol] 133 mg/dL High 70-110 [facility] Comment on above: Performed By: #### L 100.0070 ####ML [facility] WJIILMTFPL[address] [place] [address] 23655 Glucose [Mass/Vol] 157 mg/dL High 70-110 [facility] Comment on above: Performed By: #### L 100.0070 ####ML [facility] T[address]QHBI[address] [place] [address] 84311 Glucose [Mass/Vol] 139 mg/dL High 70-110 [facility] Comment on above: Performed By: #### L 100.0070 ####ML [facility] FRTBOWYSTQ[address] [place] [address] 20635 MAGNESIUMon 09-07-2023 Magnesium [Mass/Vol] 1.9 mg/dL Normal 1.6-2.4 [facility] Comment on above: Performed By: #### L 100.0390, L100.0010 ####[facility] HFWVJLNFZJ096 [place] [address] RBC MORPHOLOGYon 05-20-2023 RBC morphology finding Nom (Bld) SLT HYPO, SLT POLY Normal [facility] Comment on above: Result Comment: 2+ A NISO Performed By: #### L 200.0010, L200.0261 ####ML - UVFVBOIUHO[address] [place] [address] 75457 BMPon 05-19-2023 Anion gap [Moles/Vol] 13.2 mmol/L Low 15-22 [facility] Comment on above: Performed By: #### L 100.0390, L100.0020, L100.0010 ####[facility] EEWHVRRCNY[address] [place] [address] 10024 Calcium [Mass/Vol] 8.6 mg/dL Low 8.8-10.2 [facility] Comment on above: Performed By: #### L 100.0390, L100.0020, L100.0010 ####[facility] CUTVUEVPWY[address] [place] [address] 95112 Chloride [Moles/Vol] 104 mmol/L Normal 98-107 [facility] Comment on above: Performed By: #### L 100.0390, L100.0020, L100.0010 ####[facility] XMBOPFGBHW460 [place] [address] CO2 [Moles/Vol] 28 mmol/L Normal 22-29 [facility] Comment on above: Performed By: #### L 100.0390, L100.0020, L100.0010 ####ML [facility] EPKHADTPOV096 [place] [address] Creatinine [Mass/Vol] 3.92 mg/dL High 0.73-1.22 [facility] Comment on above: Performed By: #### L 100.0390, L100.0020, L100.0010 ####ML [facility] KXZWFXYVPY495 [place] [address] eGFR if AFR TIFFANY 18 [facility] Comment on above: Result Comment: eGFR >= 60 Indicates normal kidney function. * eGFR IS AN ESTIMATE * (AFR TIFFANY = ) (non-AFR AM = NON-) MDRD calculation used in the eGFR should not be used to dose medications. For further limitations of the eGFR please refer to the Physician Website or the National Kidney Disease Education Program website (www.nkdep.nih.gov). Performed By: #### L 100.0390, L100.0020, L100.0010 ####[address] [address] eGFR nonAFR Tiffany 15 [facility] Comment on above: Performed By: #### L 100.0390, L100.0020, L100.0010 ####[facility] PKYBLTJPIF[address] [place] [address] 93856 Glucose [Mass/Vol] 143 mg/dL High 82-115 [facility] Comment on above: Performed By: #### L 100.0390, L100.0020, L100.0010 ####[address] [address] Potassium [Moles/Vol] 4.2 mmol/L Normal 3.5-5.0 [facility] Comment on above: Performed By: #### L 100.0390, L100.0020, L100.0010 ####[facility] H[address]UN[address]MU[address] [place] [address] 82809 Sodium [Moles/Vol] 141 mmol/L Normal 135-145 [facility] Comment on above: Performed By: #### L 100.0390, L100.0020, L100.0010 ####[address] [address]678 Urea nitrogen [Mass/Vol] 72 mg/dL High 8-23 [facility] Comment on above: Performed By: #### L 100.0390, L100.0020, L100.0010 ####ML - CNUMCHFDRK[address] [place] [address] 91407 CBCon 05-19-2023 BASO# 0.06 x10(3) Normal 0.00-0.10 [facility] Comment on above: Performed By: #### L 200.0010, L200.0261 ####ML - HNVYTZLLDS[address] [place] [address] 29379 Basophils/100 WBC (Bld) 0.7 % Normal 0.0-1.0 [facility] Comment on above: Performed By: #### L 200.0010, L200.0261 ####ML - RXTNEQFFWI[address] [place] [address] 25966 EOS# 0.26 x10(3) Normal 0.00-0.54 [facility] Comment on above: Performed By: #### L 200.0010, L200.0261 ####ML - AWHZAJKXLF[address] [place] [address] 77464 Eosinophils/100 WBC (Bld) 3.2 % Normal 0.5-4.9 [facility] Comment on above: Performed By: #### L 200.0010, L200.0261 ####ML - CJSZCGJOEB[address] [place] [address] 17809 Erythrocyte distribution width (RBC) [Ratio] 16.0 % High 12.7-15.3 [facility] Comment on above: Performed By: #### L 200.0010, L200.0261 ####ML - BGOIROINIW[address] [place] [address] 84864 Hematocrit (Bld) [Volume fraction] 27.7 % Low 42.0-51.0 [facility] Comment on above: Performed By: #### L 200.0010, L200.0261 ####ML - VLDOXXSIWY[address] [place] [address] 29639 Hemoglobin (Bld) [Mass/Vol] 8.2 g/dL Low 14.0-17.2 [facility] Comment on above: Performed By: #### L 200.0010, L200.0261 ####ML - CXUZHPHOTC[address] [place] [address] 30515 IMM GRAN# 0.09 x10(3) High 0-0 [facility] Comment on above: Performed By: #### L 200.0010, L200.0261 ####ML [address] [address] IMM GRAN% 1.1 % Normal [facility] Comment on above: Performed By: #### L 200.0010, L200.0261 ####ML [address] [address]100 LYMPH# 1.20 x10(3) Normal 1.00-3.50 [facility] Comment on above: Performed By: #### L 200.0010, L200.0261 ####ML [address] [address] Lymphocytes/100 WBC (Bld) 14.8 % Low 16.0-48.0 [facility] Comment on above: Performed By: #### L 200.0010, L200.0261 ####ML - [address] [address] MCH (RBC) [Entitic mass] 28.6 pg Low 28.8-32.2 [facility] Comment on above: Performed By: #### L 200.0010, L200.0261 ####ML - IUEWUMTWGA[address] [place] [address] 68315 MCHC (RBC) [Mass/Vol] 29.6 g/dL Low 33.0-36.0 [facility] Comment on above: Performed By: #### L 200.0010, L200.0261 ####ML - [address] [address] MCV (RBC) [Entitic vol] 96.5 fL High 80.0-94.0 [facility] Comment on above: Performed By: #### L 200.0010, L200.0261 ####ML - [facility] BITEAOZXOT[address] [place] [address] MONO# 0.89 x10(3) High 0.30-0.80 [facility] Comment on above: Performed By: #### L 200.0010, L200.0261 ####ML - UWUWVCUKFZ[address] [place] [address] Monocytes/100 WBC (Bld) 11.0 % Normal 4.3-11.2 [facility] Comment on above: Performed By: #### L 200.0010, L200.0261 ####ML - IHTBMVRJHQ[address] [place] [address] NEUT# 5.62 x10(3) Normal 1.40-6.50 [facility] Comment on above: Performed By: #### L 200.0010, L200.0261 ####ML - NXOMJJPSBL[address] [place] [address] Neutrophils/100 WBC (Bld) 69.2 % Normal 45.0-73.0 [facility] Comment on above: Performed By: #### L 200.0010, L200.0261 ####ML - XIYFZFESEH[address] [place] [address] Platelet mean volume (Bld) [Entitic vol] 8.8 fL Normal 7.4-9.2 [facility] Comment on above: Performed By: #### L 200.0010, L200.0261 ####ML - YTNPUXHCCT147 [place] [address] PLT 215 X10(3) Normal 150-450 [facility] Comment on above: Performed By: #### L 200.0010, L200.0261 ####ML - NJMSFXUKHJ[address] [place] [address] RBC 2.87 x10(6) Low 4.80-5.50 [facility] Comment on above: Performed By: #### L 200.0010, L200.0261 ####ML - YTMJAGMCLC[address] [place] [address] WBC 8.1 x10(3) Normal 4.5-10.0 [facility] Comment on above: Performed By: #### L 200.0010, L200.0261 ####ML - CSYEQGYJWG268 [place] [address] GLUCOSE FSon 05-19-2023 Glucose [Mass/Vol] 138 mg/dL High 70-110 [facility] Comment on above: Performed By: #### L 100.0070 ####ML - JNLKOBKTDC[address] [place] [address] 49394 Glucose [Mass/Vol] 139 mg/dL High 70-110 [facility] Comment on above: Performed By: #### L 100.0070 ####ML - HHRGONCEXA[address] [place] [address] 90253 Glucose [Mass/Vol] 175 mg/dL High -110 [facility] Comment on above: Performed By: #### L 100.0070 ####ML [address] [address] Glucose [Mass/Vol] 133 mg/dL High -110 [facility] Comment on above: Performed By: #### L 100.0070 ####ML - JLEFZKBNZK[address] [place] [address] 25891 MAGNESIUMon 05-19-2023 Magnesium [Mass/Vol] 2.1 mg/dL Normal 1.6-2.4 [facility] Comment on above: Performed By: #### L 100.0390, L100.0020, L100.0010 ####ML - GUTFUNFPAI[address] [place] [address] 10775 RBC MORPHOLOGYon 05-19-2023 RBC morphology finding Nom (Bld) 1+ HYPOCHROMIA Normal [facility] Comment on above: Result Comment: SLIG HT POLYCHROMASIA, SLIGHT BASOPHILIC STIPPLING, SLIGHTANISOCYTOSIS, OCCASIONAL OVALOCYTES Performed By: #### L 200.0010, L200.0261 ####ML - QZZSXHPTXL[address] [place] [address] 87413 RENALon 05-19-2023 Albumin [Mass/Vol] 2.7 g/dL Low 3.5-5.2 [facility] Comment on above: Performed By: #### L 100.0390, L100.0020, L100.0010 ####[facility] [address]QITBISAM[address] [place] [address] 87630 Phosphate [Mass/Vol] 5.7 mg/dL High 2.5-4.5 [facility] Comment on above: Performed By: #### L 100.0390, L100.0020, L100.0010 ####ML [address] [address] ARTERIAL DOPPLER/PVR OF LEGS on 05-18-2023 ARTERIAL DOPPLER/PVR OF LEGS Normal [facility] BMPon 05-18-2023 Anion gap [Moles/Vol] 16.3 mmol/L Normal 15-22 [facility] Comment on above: Performed By: #### L 100.0010 ####[facility] [address] [place] [id number] Calcium [Mass/Vol] 8.4 mg/dL Low 8.8-10.2 [facility] Comment on above: Performed By: #### L 100.0010 ####[facility] [address] [place] [id number] Chloride [Moles/Vol] 104 mmol/L Normal 98-107 [facility] Comment on above: Performed By: #### L 100.0010 ####[facility] [address] [place] [id number] CO2 [Moles/Vol] 26 mmol/L Normal 22-29 [facility] Comment on above: Performed By: #### L 100.0010 ####[facility] [address] [place] [address] Creatinine [Mass/Vol] 3.96 mg/dL High 0.73-1.22 [facility] Comment on above: Performed By: #### L 100.0010 ####[address] [address] eGFR if AFR TIFFANY 18 Normal [facility] Comment on above: Result Comment: eGFR >= 60 Indicates normal kidney function. * eGFR IS AN ESTIMATE * (AFR TIFFANY = ) (non-AFR AM = NON-) MDRD calculation used in the eGFR should not be used to dose medications. For further limitations of the eGFR please refer to the Physician Website or the National Kidney Disease Education Program website (www.nkdep.nih.gov). Performed By: #### L 100.0010 ####ML - YYU[address]IZ[address] [place] [address]22 eGFR nonAFR Tiffany 15 Normal [facility] Comment on above: Performed By: #### L 100.0010 ####ML - [address] [address] Glucose [Mass/Vol] 174 mg/dL High 82-115 [facility] Comment on above: Performed By: #### L 100.0010 ####ML - [address] [address] Potassium [Moles/Vol] 4.3 mmol/L Normal 3.5-5.0 [facility] Comment on above: Performed By: #### L 100.0010 ####ML - [address] [address] Sodium [Moles/Vol] 142 mmol/L Abnormal 135-145 [facility] Comment on above: Result Comment: De lta check (#) indicates a significant change in thislaboratory value. It needs clinical correlation withpatient situation or treatment. If the change in this testdoes not match your clinical situation or therapy, you maywish to re-test to verify the result. Performed By: #### L 100.0010 ####ML - [address] [address] Urea nitrogen [Mass/Vol] 75 mg/dL High 8-23 [facility] Comment on above: Performed By: #### L 100.0010 ####ML - [address] [address] CBCon 05-18-2023 BASO# 0.05 x10(3) Normal 0.00-0.10 [facility] Comment on above: Performed By: #### L 200.0010 ####ML [address] [address] Basophils/100 WBC (Bld) 0.6 % Normal 0.0-1.0 [facility] Comment on above: Performed By: #### L 200.0010 ####ML [address] [address] EOS# 0.04 x10(3) Normal 0.00-0.54 [facility] Comment on above: Performed By: #### L 200.0010 ####ML [address] [address] Eosinophils/100 WBC (Bld) 0.5 % Normal 0.5-4.9 [facility] Comment on above: Performed By: #### L 200.0010 ####ML [address] [address] Erythrocyte distribution width (RBC) [Ratio] 15.8 % High 12.7-15.3 [facility] Comment on above: Performed By: #### L 200.0010 ####ML [address] [address] Hematocrit (Bld) [Volume fraction] 28.3 % Low 42.0-51.0 [facility] Comment on above: Performed By: #### L 200.0010 ####ML [facility] L[address]KQY[address] [place] [address] Hemoglobin (Bld) [Mass/Vol] 8.5 g/dL Low 14.0-17.2 [facility] Comment on above: Performed By: #### L 200.0010 ####ML [address] [address] IMM GRAN# 0.08 x10(3) High 0-0 [facility] Comment on above: Performed By: #### L 200.0010 ####ML [address] [address] IMM GRAN% 1.0 % Normal [facility] Comment on above: Performed By: #### L 200.0010 ####ML [address] [address] LYMPH# 1.07 x10(3) Normal 1.00-3.50 [facility] Comment on above: Performed By: #### L 200.0010 ####ML [address] [address] Lymphocytes/100 WBC (Bld) 12.9 % Low 16.0-48.0 [facility] Comment on above: Performed By: #### L 200.0010 ####ML [address] [address] MCH (RBC) [Entitic mass] 28.7 pg Low 28.8-32.2 [facility] Comment on above: Performed By: #### L 200.0010 ####ML [address] [address] MCHC (RBC) [Mass/Vol] 30.0 g/dL Low 33.0-36.0 [facility] Comment on above: Performed By: #### L 200.0010 ####ML [address] [address] MCV (RBC) [Entitic vol] 95.6 fL High 80.0-94.0 [facility] Comment on above: Performed By: #### L 200.0010 ####ML [address] [address] MONO# 0.71 x10(3) Normal 0.30-0.80 [facility] Comment on above: Performed By: #### L 200.0010 ####ML [address] [address] Monocytes/100 WBC (Bld) 8.6 % Normal 4.3-11.2 [facility] Comment on above: Performed By: #### L 200.0010 ####[address] [address] NEUT# 6.34 x10(3) Normal 1.40-6.50 [facility] Comment on above: Performed By: #### L 200.0010 ####ML - NKQGNQMJNR[address] [place] [address] Neutrophils/100 WBC (Bld) 76.4 % High 45.0-73.0 [facility] Comment on above: Performed By: #### L 200.0010 ####ML - LBYOVCZMHQ[address] [place] [address]176 Platelet mean volume (Bld) [Entitic vol] 8.9 fL Normal 7.4-9.2 [facility] Comment on above: Performed By: #### L 200.0010 ####ML - [address] [address] PLT 235 X10(3) Normal 150-450 [facility] Comment on above: Performed By: #### L 200.0010 ####ML - [address] [address] RBC 2.96 x10(6) Low 4.80-5.50 [facility] Comment on above: Performed By: #### L 200.0010 ####ML - [address] [address] WBC 8.3 x10(3) Normal 4.5-10.0 [facility] Comment on above: Performed By: #### L 200.0010 ####ML [address] [address] CHEST-ONE VIEW ONLY - CXR1on 05-18-2023 CHEST-ONE VIEW ONLY - CXR1 Normal [facility] ECHO COMPLETEon 05-18-2023 ECHO COMPLETE Normal [facility] GLUCOSE FSon 05-18-2023 Glucose [Mass/Vol] 152 mg/dL High 70-110 [facility] Comment on above: Performed By: #### L 100.0070 ####ML - YQPRFMCBGC[address] [place] [address] Glucose [Mass/Vol] 144 mg/dL High 70-110 [facility] Comment on above: Performed By: #### L 100.0070 ####ML - XMCHXWCUIL697 [place] [address] Glucose [Mass/Vol] 177 mg/dL High 70-110 [facility] Comment on above: Performed By: #### L 100.0070 ####ML - FKIMZFSWGQ350 [place] [address] Glucose [Mass/Vol] 154 mg/dL High 70-110 [facility] Comment on above: Performed By: #### L 100.0070 ####ML - INAYJDHRBW[address] [place] [address] BMPon 05-17-2023 Anion gap [Moles/Vol] 16.6 mmol/L Normal 15-22 [facility] Comment on above: Performed By: #### L 100.0010, L100.0390 ####ML - DJAFCYJILB[address] [place] [address] Calcium [Mass/Vol] 8.4 mg/dL Low 8.8-10.2 [facility] Comment on above: Performed By: #### L 100.0010, L100.0390 ####ML - AEMQRMCBKL[address] [place] [address] 10192 Chloride [Moles/Vol] 100 mmol/L Normal 98-107 [facility] Comment on above: Performed By: #### L 100.0010, L100.0390 ####ML - PYXEVQPOSG[address] [place] [address] 28439 CO2 [Moles/Vol] 24 mmol/L Normal 22-29 [facility] Comment on above: Performed By: #### L 100.0010, L100.0390 ####ML - RWFAEYMKJF[address] [place] [address] 23228 Creatinine [Mass/Vol] 4.11 mg/dL High 0.73-1.22 [facility] Comment on above: Performed By: #### L 100.0010, L100.0390 ####ML - XXORGGGAWA[address] [place] [address] 46858 eGFR if AFR TIFFANY 17 Normal [facility] Comment on above: Result Comment: eGFR >= 60 Indicates normal kidney function. * eGFR IS AN ESTIMATE * (AFR TIFFANY = ) (non-AFR AM = NON-) MDRD calculation used in the eGFR should not be used to dose medications. For further limitations of the eGFR please refer to the Physician Website or the National Kidney Disease Education Program website (www.nkdep.nih.gov). Performed By: #### L 100.0010, L100.0390 #### - UUVGUCQGRW082 [place] [address] eGFR nonAFR Tiffany 14 Normal [facility] Comment on above: Performed By: #### L 100.0010, L100.0390 ####[facility] IHMNGBIROW107 [place] [address] Glucose [Mass/Vol] 283 mg/dL High 82-115 [facility] Comment on above: Performed By: #### L 100.0010, L100.0390 ####[facility] UDCITXWATZ439 [place] [address] Potassium [Moles/Vol] 4.6 mmol/L Normal 3.5-5.0 [facility] Comment on above: Performed By: #### L 100.0010, L100.0390 ####[facility] HGMGQRKBEP110 [place] [address] Sodium [Moles/Vol] 136 mmol/L Normal 135-145 [facility] Comment on above: Performed By: #### L 100.0010, L100.0390 ####[facility] SKSGEPHWLJ547 [place] [address] Urea nitrogen [Mass/Vol] 74 mg/dL High 8-23 [facility] Comment on above: Performed By: #### L 100.0010, L100.0390 ####[facility] MQMTDRODTW907 [place] [address] Anion gap [Moles/Vol] 17.2 mmol/L Normal 15-22 [facility] Comment on above: Performed By: #### L 100.0010, L304.0240 #### - YBKHGYXFQL123 [place] [address] Calcium [Mass/Vol] 8.2 mg/dL Low 8.8-10.2 [facility] Comment on above: Performed By: #### L 100.0010, L304.0240 ####ML - [facility] [place] [address] 19997 Chloride [Moles/Vol] 104 mmol/L Normal 98-107 [facility] Comment on above: Performed By: #### L 100.0010, L304.0240 ####[facility] [place] [address] 16627 CO2 [Moles/Vol] 21 mmol/L Low 22-29 [facility] Comment on above: Performed By: #### L 100.0010, L304.0240 ####[facility] [place] [address] 67209 Creatinine [Mass/Vol] 3.85 mg/dL High 0.73-1.22 [facility] Comment on above: Performed By: #### L 100.0010, L304.0240 ####[facility] [place] [address] 70922 eGFR if AFR TIFFANY 19 Normal [facility] Comment on above: Result Comment: eGFR >= 60 Indicates normal kidney function. * eGFR IS AN ESTIMATE * (AFR TIFFANY = ) (non-AFR AM = NON-) MDRD calculation used in the eGFR should not be used to dose medications. For further limitations of the eGFR please refer to the Physician Website or the National Kidney Disease Education Program website (www.nkdep.nih.gov). Performed By: #### L 100.0010, L304.0240 #### - [facility] CMFCPGKPRH954 [place] [address] eGFR nonAFR Tiffany 16 Normal [facility] Comment on above: Performed By: #### L 100.0010, L304.0240 ####ML - ENWDTABBYW305 [place] [address] Glucose [Mass/Vol] 143 mg/dL High 82-115 [facility] Comment on above: Performed By: #### L 100.0010, L304.0240 ####ML - AFCGMSBMOJ[address] [place] [address] Potassium [Moles/Vol] 4.2 mmol/L Normal 3.5-5.0 [facility] Comment on above: Performed By: #### L 100.0010, L304.0240 ####ML - BNCLOBYVCS[address] [place] [address] Sodium [Moles/Vol] 138 mmol/L Normal 135-145 [facility] Comment on above: Performed By: #### L 100.0010, L304.0240 ####ML - MPHQSBORCY[address] [place] [address] 85626 Urea nitrogen [Mass/Vol] 75 mg/dL High 8-23 [facility] Comment on above: Performed By: #### L 100.0010, L304.0240 ####ML - CKUKKEVARA[address] [place] [address] CBCon 05-17-2023 BASO# 0.05 x10(3) Normal 0.00-0.10 [facility] Comment on above: Performed By: #### L 200.0010 ####ML - CBKLKBAESN[address] [place] [address] 24232 Basophils/100 WBC (Bld) 0.6 % Normal 0.0-1.0 [facility] Comment on above: Performed By: #### L 200.0010 ####ML - XLAMYDPXJS[address] [place] [address] 59462 EOS# 0.17 x10(3) Normal 0.00-0.54 [facility] Comment on above: Performed By: #### L 200.0010 ####ML [facility] YDMRGUHR[address] [place] [address] 88961 Eosinophils/100 WBC (Bld) 2.1 % Normal 0.5-4.9 [facility] Comment on above: Performed By: #### L 200.0010 ####ML - KOYVXBQLBR[address] [place] [address] 87010 Erythrocyte distribution width (RBC) [Ratio] 15.7 % High 12.7-15.3 [facility] Comment on above: Performed By: #### L 200.0010 ####ML - IMWDQBECDK[address] [place] [address]388 Hematocrit (Bld) [Volume fraction] 29.0 % Low 42.0-51.0 [facility] Comment on above: Performed By: #### L 200.0010 ####ML - [address] [address] Hemoglobin (Bld) [Mass/Vol] 8.8 g/dL Low 14.0-17.2 [facility] Comment on above: Performed By: #### L 200.0010 ####ML [facility] YYFS[address]ZV[address] [place] [address] 09636 IMM GRAN# 0.14 x10(3) High 0-0 [facility] Comment on above: Performed By: #### L 200.0010 ####ML [facility] P[address]ORMVV[address] [place] [address] 76316 IMM GRAN% 1.7 % Normal [facility] Comment on above: Performed By: #### L 200.0010 ####ML - NLVQVXAITY[address] [place] [address] 26813 LYMPH# 1.40 x10(3) Normal 1.00-3.50 [facility] Comment on above: Performed By: #### L 200.0010 ####ML [facility] OZZBT[address]VCO[address] [place] [address] 44444 Lymphocytes/100 WBC (Bld) 17.2 % Normal 16.0-48.0 [facility] Comment on above: Performed By: #### L 200.0010 ####ML [facility] BVULNJAHBJ[address] [place] [address] 73142 MCH (RBC) [Entitic mass] 29.0 pg Normal 28.8-32.2 [facility] Comment on above: Performed By: #### L 200.0010 ####ML [address] [address] MCHC (RBC) [Mass/Vol] 30.3 g/dL Low 33.0-36.0 [facility] Comment on above: Performed By: #### L 200.0010 ####ML [address] [address] MCV (RBC) [Entitic vol] 95.7 fL High 80.0-94.0 [facility] Comment on above: Performed By: #### L 200.0010 ####ML [address] [address] MONO# 0.81 x10(3) High 0.30-0.80 [facility] Comment on above: Performed By: #### L 200.0010 ####ML [address] [address] Monocytes/100 WBC (Bld) 9.9 % Normal 4.3-11.2 [facility] Comment on above: Performed By: #### L 200.0010 ####[address] [address] NEUT# 5.58 x10(3) Normal 1.40-6.50 [facility] Comment on above: Performed By: #### L 200.0010 ####ML [address] [address] Neutrophils/100 WBC (Bld) 68.5 % Normal 45.0-73.0 [facility] Comment on above: Performed By: #### L 200.0010 ####[address] [address] Platelet mean volume (Bld) [Entitic vol] 8.5 fL Normal 7.4-9.2 [facility] Comment on above: Performed By: #### L 200.0010 ####ML [address] [address] PLT 225 X10(3) Normal 150-450 [facility] Comment on above: Performed By: #### L 200.0010 ####ML - MVNRNEJSWF548 [place] [address] RBC 3.03 x10(6) Low 4.80-5.50 [facility] Comment on above: Performed By: #### L 200.0010 ####ML - KENWKLNYKK[address] [place] [address] 37087 WBC 8.2 x10(3) Normal 4.5-10.0 [facility] Comment on above: Performed By: #### L 200.0010 ####ML - LBMDNKQRPV[address] [place] [address] 19609 FERRITINon 05-17-2023 Ferritin [Mass/Vol] 250.9 ng/mL Normal 30-400 [facility] Comment on above: Performed By: #### L 100.0010, L304.0240 ####ML - IYFLAWASRN[address] [place] [address] 70048 GLUCOSE FSon 05-17-2023 Glucose [Mass/Vol] 221 mg/dL High 70-110 [facility] Comment on above: Performed By: #### L 100.0070 ####ML - JWQTRLFIIL[address] [place] [address] 96753 Glucose [Mass/Vol] 174 mg/dL High 70-110 [facility] Comment on above: Performed By: #### L 100.0070 ####ML - NNBDDWOYSM[address] [place] [address] 90594 Glucose [Mass/Vol] 185 mg/dL High 70-110 [facility] Comment on above: Performed By: #### L 100.0070 ####ML - JGZGKBIGVS[address] [place] [address] 73658 Glucose [Mass/Vol] 195 mg/dL High 70-110 [facility] Comment on above: Performed By: #### L 100.0070 ####ML - HKWXSOTJCL[address] [place] [address] 17581 IRON & TIBCon 05-17-2023 % FE. SAT. 14 % Low 18-39 [facility] Comment on above: Performed By: #### L 100.0400 ####ML - NYABXQAVJC192 [place] [address] Iron [Mass/Vol] 38 ug/dL Low 59-158 [facility] Comment on above: Performed By: #### L 100.0400 ####ML - ELJVRVWDEI915 [place] [address] TIBC 263 mg/dL Normal 252-461 [facility] Comment on above: Performed By: #### L 100.0400 ####ML - CPPGDTSTRC[address] [place] [address] Transferrin [Mass/Vol] 188 mg/dL Low 200-360 [facility] Comment on above: Performed By: #### L 100.0400 ####ML - XUYEMMNGUY[address] [place] [address] 70700 MAGNESIUMon 05-17-2023 Magnesium [Mass/Vol] 1.8 mg/dL Normal 1.6-2.4 [facility] Comment on above: Performed By: #### L 100.0010, L100.0390 ####ML - GDAOMTUKCO[address] [place] [address] 20678 MICROALBUMINon 05-17-2023 MICROALBUMIN 820.0 mg/L High 0.0-20.0 [facility] Comment on above: Performed By: #### L 100.0720 ####ML - KTLJAPDNNW[address] [place] [address] 24851 URINALYSISon 05-17-2023 Bilirubin Ql (U) Negative Normal NEGATIVE [facility] Comment on above: Performed By: #### L 200.3190, L200.3000 ####ML - [facility] QLGUNAPWIZ213 [place] [address] Color (U) YELLOW Normal YELLOW [facility] Comment on above: Performed By: #### L 200.3190, L200.3000 ####ML - [facility] Q[address]OMJKD[address] [place] [address] 51293 Glucose Ql (U) 100 MG/DL Normal NEGATIVE [facility] Comment on above: Performed By: #### L 200.3190, L200.3000 ####ML - DYNLMTZEEG[address] [place] [address] Hemoglobin Ql (U) LARGE Normal NEGATIVE [facility] Comment on above: Performed By: #### L 200.3190, L200.3000 ####ML - UNDDBYUOOB9[address] [place] [address] Leukocyte esterase Test strip Ql (U) Negative Normal NEGATIVE [facility] Comment on above: Performed By: #### L 200.319, L200.3000 ####ML - ADQUZTHBGS[address] [place] [address] Nitrite Ql (U) Negative Normal NEGATIVE [facility] Comment on above: Performed By: #### L 200.3189, L200.3000 ####ML - XWDWSVGMVV7[address] [place] [address] pH (U) 5.5 [pH] Normal 5.0-8.0 [facility] Comment on above: Performed By: #### L 200.3189, L200.3000 ####ML - HENHDDESCC[address] [place] [address] Protein Ql (U) 100 MG/DL Normal NEGATIVE [facility] Comment on above: Performed By: #### L 200.3189, L200.3000 ####ML - CUPXDGBHLQ[address] [place] [address] URINE APPEARANC CLEAR Normal CLEAR [facility] Comment on above: Performed By: #### L 200.3189, L200.3000 ####ML - PGGMWVEBSB[address] [place] [address] URINE KETONE Negative Normal NEGATIVE [facility] Comment on above: Performed By: #### L 200.3190, L200.3000 ####ML - PILADXYHVZ8[address] [place] [address] URINE SPECIFIC 1.020 Normal 1.001-1.035 [facility] Comment on above: Performed By: #### L 200.3190, L200.3000 ####ML - WMIXTGHTMO9[address] [place] [address] URINE UROBILINO 0.2 EU/DL Normal 0.2-1.0 [facility] Comment on above: Performed By: #### L 200.3190, L200.3000 ####ML - WRENGEFVPK[address] [place] [address] URINE MICROSCOPon 05-17-2023 Mucus Ql (Urine sed) TR Normal NEGATIVE [facility] Comment on above: Performed By: #### L 200.3190, L200.3000 ####ML - BLQUXVFRQV[address] [place] [address] SQUAMOUS OCC Normal NEGATIVE [facility] Comment on above: Performed By: #### L 200.3190, L200.3000 ####ML - GJMVVPOTCU[address] [place] [address] URINE BACTERIA TR Normal NEGATIVE [facility] Comment on above: Performed By: #### L 200.3190, L200.3000 ####ML - PDFMGUMTIT[address] [place] [address] URINE RBC 10-20 Normal 0-2 [facility] Comment on above: Performed By: #### L 200.3190, L200.3000 ####ML - IVSQKMDJTR[address] [place] [address] WBC (U) [#/Vol] 0 /uL Normal 0-5 [facility] Comment on above: Performed By: #### L 200.3190, L200.3000 ####ML - RPPPUBHGHV[address] [place] [address] URINE PROT RNDMon 05-17-2023 URINE PROT RNDM 143.1 mg/dL High 0-15 [facility] Comment on above: Performed By: #### L 100.0780 ####ML - [id number] [place] [address] CBCon 05-16-2023 BASO# 0.05 x10(3) Normal 0.00-0.10 [facility] Comment on above: Performed By: #### L 200.0010 ####ML - MSINKEYXCE[address] [place] [address] Basophils/100 WBC (Bld) 0.6 % Normal 0.0-1.0 [facility] Comment on above: Performed By: #### L 200.0010 ####ML - PDMAIJPJZH249 [place] [address] EOS# 0.12 x10(3) Normal 0.00-0.54 [facility] Comment on above: Performed By: #### L 200.0010 ####ML [facility] IB[address]YXCL[address] [place] [address] 96142 Eosinophils/100 WBC (Bld) 1.4 % Normal 0.5-4.9 [facility] Comment on above: Performed By: #### L 200.0010 ####ML [facility] VUREINKSGP[address] [place] [address] 38073 Erythrocyte distribution width (RBC) [Ratio] 15.4 % High 12.7-15.3 [facility] Comment on above: Performed By: #### L 200.0010 ####ML [facility] FDFMRFTPTS[address] [place] [address] 26101 Hematocrit (Bld) [Volume fraction] 29.2 % Low 42.0-51.0 [facility] Comment on above: Performed By: #### L 200.0010 ####ML [facility] STFEZWJO[address] [place] [address] 79094 Hemoglobin (Bld) [Mass/Vol] 8.9 g/dL Low 14.0-17.2 [facility] Comment on above: Performed By: #### L 200.0010 ####ML - OICZUMMZLI[address] [place] [address] 19558 IMM GRAN# 0.06 x10(3) High 0-0 [facility] Comment on above: Performed By: #### L 200.0010 ####ML - HHIXNFTRZA[address] [place] [address] 14577 IMM GRAN% 0.7 % Normal [facility] Comment on above: Performed By: #### L 200.0010 ####ML - AHCLEUPBYW[address] [place] [address] 76374 LYMPH# 1.13 x10(3) Normal 1.00-3.50 [facility] Comment on above: Performed By: #### L 200.0010 ####ML - TXUJFKUQYP[address]39[address] [place] [address] 70474 Lymphocytes/100 WBC (Bld) 13.0 % Low 16.0-48.0 [facility] Comment on above: Performed By: #### L 200.0010 ####ML [facility] PMKLUJKFQR[address] [place] [address] 05671 MCH (RBC) [Entitic mass] 29.0 pg Normal 28.8-32.2 [facility] Comment on above: Performed By: #### L 200.0010 ####ML - THAOUUBGUD[address] [place] [address] 02017 MCHC (RBC) [Mass/Vol] 30.5 g/dL Low 33.0-36.0 [facility] Comment on above: Performed By: #### L 200.0010 ####ML - [address] [address] MCV (RBC) [Entitic vol] 95.1 fL High 80.0-94.0 [facility] Comment on above: Performed By: #### L 200.0010 ####ML - ASWCSOHZML[address] [place] [address] 95626 MONO# 0.65 x10(3) Normal 0.30-0.80 [facility] Comment on above: Performed By: #### L 200.0010 ####ML - FDFNLCZDQD[address] [place] [address] 46450 Monocytes/100 WBC (Bld) 7.5 % Normal 4.3-11.2 [facility] Comment on above: Performed By: #### L 200.0010 ####ML [facility] JIJDNBUYMN[address] [place] [address] 76866 NEUT# 6.65 x10(3) High 1.40-6.50 [facility] Comment on above: Performed By: #### L 200.0010 ####ML [address] [address] Neutrophils/100 WBC (Bld) 76.8 % High 45.0-73.0 [facility] Comment on above: Performed By: #### L 200.0010 ####ML - EAWUKYFVHN[address] [place] [address] Platelet mean volume (Bld) [Entitic vol] 8.8 fL Normal 7.4-9.2 [facility] Comment on above: Performed By: #### L 200.0010 ####[facility] [address]STKLK[address] [place] [address] 98790 PLT 231 X10(3) Normal 150-450 [facility] Comment on above: Performed By: #### L 200.0010 ####ML [facility] QBSJXGPLOH[address] [place] [address] 35380 RBC 3.07 x10(6) Low 4.80-5.50 [facility] Comment on above: Performed By: #### L 200.0010 ####[address] [address] WBC 8.7 x10(3) Normal 4.5-10.0 [facility] Comment on above: Performed By: #### L 200.0010 ####[address] [address] CHEST-ONE VIEW ONLY - CXR1on 05-16-2023 CHEST-ONE VIEW ONLY - CXR1 Normal [facility] CMPon 05-16-2023 A:G RATIO 0.70 Low 1.1-2.5 [facility] Comment on above: Performed By: #### L 100.0005 ####[facility] DNSSNTBWYA[address] [place] [address] 64456 Albumin [Mass/Vol] 2.8 g/dL Low 3.5-5.2 [facility] Comment on above: Performed By: #### L 100.0005 ####ML [facility] [id number] [place] [address] ALK. PHOS 65 U/L Normal 40-130 [facility] Comment on above: Performed By: #### L 100.0005 ####[facility] NFJCKHNVLU[address] [place] [address] 32423 ALT [Catalytic activity/Vol] 5 U/L Normal 5-41 [facility] Comment on above: Performed By: #### L 100.0005 ####ML - [address] [address] Anion gap [Moles/Vol] 16.6 mmol/L Normal 15-22 [facility] Comment on above: Performed By: #### L 100.0005 ####[address] [address] AST [Catalytic activity/Vol] 13 U/L Normal 5-40 [facility] Comment on above: Performed By: #### L 100.0005 ####[address] [address] Bilirubin [Mass/Vol] 0.3 mg/dL Normal 0.2-1.2 [facility] Comment on above: Performed By: #### L 100.0005 ####[address] [address] Calcium [Mass/Vol] 8.4 mg/dL Low 8.8-10.2 [facility] Comment on above: Performed By: #### L 100.0005 ####[address] [address] Chloride [Moles/Vol] 105 mmol/L Normal 98-107 [facility] Comment on above: Performed By: #### L 100.0005 ####[address] [address] CO2 [Moles/Vol] 22 mmol/L Normal 22-29 [facility] Comment on above: Performed By: #### L 100.0005 ####[address] [address] Creatinine [Mass/Vol] 3.51 mg/dL High 0.73-1.22 [facility] Comment on above: Performed By: #### L 100.0005 ####[address] [address] eGFR if AFR TIFFANY 21 Normal [facility] Comment on above: Result Comment: eGFR >= 60 Indicates normal kidney function. * eGFR IS AN ESTIMATE * (AFR TIFFANY = ) (non-AFR AM = NON-) MDRD calculation used in the eGFR should not be used to dose medications. For further limitations of the eGFR please refer to the Physician Website or the National Kidney Disease Education Program website (www.nkdep.nih.gov). Performed By: #### L 100.0005 ####ML - [address] [address] eGFR nonAFR Tiffany 17 Normal [facility] Comment on above: Performed By: #### L 100.0005 ####ML - [address] [address] Globulin (S) [Mass/Vol] 4.0 g/dL Normal 1.5-4.5 [facility] Comment on above: Performed By: #### L 100.0005 ####[address] [address] Glucose [Mass/Vol] 124 mg/dL High 82-115 [facility] Comment on above: Performed By: #### L 100.0005 ####[address] [address] Potassium [Moles/Vol] 4.6 mmol/L Normal 3.5-5.0 [facility] Comment on above: Performed By: #### L 100.0005 ####[address] [address] Protein [Mass/Vol] 6.8 g/dL Normal 6.4-8.3 [facility] Comment on above: Performed By: #### L 100.0005 ####[address] [address] Sodium [Moles/Vol] 139 mmol/L Normal 135-145 [facility] Comment on above: Performed By: #### L 100.0005 ####[address] [address] Urea nitrogen [Mass/Vol] 72 mg/dL High 8-23 [facility] Comment on above: Performed By: #### L 100.0005 ####ML - HTMXHQMDUR[address] [place] [address] GLUCOSE FSon 05-16-2023 Glucose [Mass/Vol] 142 mg/dL High 70-110 [facility] Comment on above: Performed By: #### L 100.0070 ####ML - VMCCJBLEUS[address] [place] [address] Glucose [Mass/Vol] 197 mg/dL High 70-110 [facility] Comment on above: Performed By: #### L 100.0070 ####ML - [facility] ARAGEMFBJU[address] [place] [address] Glucose [Mass/Vol] 225 mg/dL High 70-110 [facility] Comment on above: Performed By: #### L 100.0070 ####ML - [facility] ZWEOMLSZNC9[address] [place] [address] Glucose [Mass/Vol] 131 mg/dL High 70-110 [facility] Comment on above: Performed By: #### L 100.0070 ####ML - [facility] OVAVBHORWZ[address] [place] [address] Glucose [Mass/Vol] 106 mg/dL Normal -110 [facility] Comment on above: Performed By: #### L 100.0070 ####ML - [id number] [place] [address] ARTERIAL BLOODon 05-15-2023 BE(B) -5.1 mmol/L Low -2.0-2.0 [facility] Comment on above: Order Comment: NOTIF Y RT? Y Performed By: #### L 100.1060 ####ML - U[facility] OGDKTBPSZW[address] [place] [address] BE(ecf) -5.7 mmol/L Low -2.0-2.0 [facility] Comment on above: Order Comment: NOTIF Y RT? Y Performed By: #### L 100.1060 ####ML - OAIOIOQFFY246 [place] [address] BO2 14.4 mL/dL [facility] Comment on above: Order Comment: NOTIF Y RT? Y Performed By: #### L 100.1060 ####ML - U[facility] ZWHBPRMSUI603 [place] [address] ctCO2 20.9 mmol/L Low 23-27 [facility] Comment on above: Order Comment: NOTIF Y RT? Y Performed By: #### L 100.1060 ####ML - [facility] OTTBHEEVLJ774 [place] [address] ctO2 (a) 13.5 mL/dL [facility] Comment on above: Order Comment: NOTIF Y RT? Y Performed By: #### L 100.1060 ####ML - [facility] XYSNCEIUXW762 [place] [address] FLOW 3.00 L/min [facility] Comment on above: Order Comment: NOTIF Y RT? Y Performed By: #### L 100.1060 ####ML - U[facility] POLLFBHTGB651 [place] [address] HCO3-act 19.8 mmol/L Low 22-26 [facility] Comment on above: Order Comment: NOTIF Y RT? Y Performed By: #### L 100.1060 ####ML - U[facility] JMREPMREYJ212 [place] [address] HCO3-std 20.2 mmol/L [facility] Comment on above: Order Comment: NOTIF Y RT? Y Performed By: #### L 100.1060 ####ML - [facility] SOIKCJUHJK332 [place] [address] Hematocrit (Bld) [Volume fraction] 31 % Low 42.0-51.0 [facility] Comment on above: Order Comment: NOTIF Y RT? Y Performed By: #### L 100.1060 ####ML - U[facility] QPCBHXKQRX675 [place] [address] Oxygen (Bld) [Partial pressure] 72.9 mm[Hg] Low 80-100 [facility] Comment on above: Order Comment: NOTIF Y RT? Y Performed By: #### L 100.1060 ####ML - U[facility] SYTWCJHSBL678 [place] [address] pCO2 36.1 mmHg Normal 35-45 [facility] Comment on above: Order Comment: NOTIF Y RT? Y Performed By: #### L 100.1060 ####ML - NULPMMBKMD[address] [place] [address] pH (Bld) 7.357 [pH] Normal 7.350-7.450 [facility] Comment on above: Order Comment: NOTIF Y RT? Y Performed By: #### L 100.1060 ####ML - WBYKMPQPGI[address] [place] [address] RTECH AARRT Normal [facility] Comment on above: Order Comment: NOTIF Y RT? Y Performed By: #### L 100.1060 ####ML - [id number] [place] [address] sO2 92.6 % Low 95-98 [facility] Comment on above: Order Comment: NOTIF Y RT? Y Performed By: #### L 100.1060 ####ML - RHRWOGFZ[address] [place] [address] tHb 10.4 g/dL Low 14.0-17.2 [facility] Comment on above: Order Comment: NOTIF Y RT? Y Performed By: #### L 100.1060 ####ML - [id number] [place] [address] BMPon 05-15-2023 Anion gap [Moles/Vol] 14.5 mmol/L Low 15-22 [facility] Comment on above: Performed By: #### L 100.0010, L301.0080 ####ML - NZBOVMEWGV540 [place] [address] Calcium [Mass/Vol] 8.4 mg/dL Low 8.8-10.2 [facility] Comment on above: Performed By: #### L 100.0010, L301.0080 ####ML - NNWHJIZGOO838 [place] [address] Chloride [Moles/Vol] 104 mmol/L Normal 98-107 [facility] Comment on above: Performed By: #### L 100.0010, L301.0080 ####ML - IHUHQNIIVT413 [place] [address] CO2 [Moles/Vol] 23 mmol/L Normal 22-29 [facility] Comment on above: Performed By: #### L 100.0010, L301.0080 ####[facility] [place] [address] Creatinine [Mass/Vol] 3.29 mg/dL High 0.73-1.22 [facility] Comment on above: Performed By: #### L 100.0010, L301.0080 ####[address] [address] eGFR if AFR TIFFANY 23 [facility] Comment on above: Result Comment: eGFR >= 60 Indicates normal kidney function. * eGFR IS AN ESTIMATE * (AFR TIFFANY = ) (non-AFR AM = NON-) MDRD calculation used in the eGFR should not be used to dose medications. For further limitations of the eGFR please refer to the Physician Website or the National Kidney Disease Education Program website (www.nkdep.nih.gov). Performed By: #### L 100.0010, L301.0080 ####[facility] [place] [address] eGFR nonAFR Tiffany 19 [facility] Comment on above: Performed By: #### L 100.0010, L301.0080 ####[facility] XCCSMVRJXE063 [place] [address] Glucose [Mass/Vol] 54 mg/dL Low 82-115 [facility] Comment on above: Performed By: #### L 100.0010, L301.0080 ####[facility] IEBJIEKGID[address] [place] [address] Potassium [Moles/Vol] 4.5 mmol/L Normal 3.5-5.0 [facility] Comment on above: Performed By: #### L 100.0010, L301.0080 ####[facility] [place] [address] Sodium [Moles/Vol] 137 mmol/L Normal 135-145 [facility] Comment on above: Performed By: #### L 100.0010, L301.0080 ####[facility] CXGKDYF[address] [place] [address] Urea nitrogen [Mass/Vol] 69 mg/dL High 8-23 [facility] Comment on above: Performed By: #### L 100.0010, L301.0080 ####[facility] YTT[address] [place] [address] CBCon 05-15-2023 BASO# 0.05 x10(3) Normal 0.00-0.10 [facility] Comment on above: Performed By: #### L 200.0010 ####[address] [address] Basophils/100 WBC (Bld) 0.5 % Normal 0.0-1.0 [facility] Comment on above: Performed By: #### L 200.0010 ####[address] [address] EOS# 0.02 x10(3) Normal 0.00-0.54 [facility] Comment on above: Performed By: #### L 200.0010 ####[address] [address] Eosinophils/100 WBC (Bld) 0.2 % Low 0.5-4.9 [facility] Comment on above: Performed By: #### L 200.0010 ####[facility] CQBXSY[address] [place] [address] Erythrocyte distribution width (RBC) [Ratio] 15.2 % Normal 12.7-15.3 [facility] Comment on above: Performed By: #### L 200.0010 ####[address] [address] Hematocrit (Bld) [Volume fraction] 28.5 % Low 42.0-51.0 [facility] Comment on above: Performed By: #### L 200.0010 ####ML [facility] [place] [address] Hemoglobin (Bld) [Mass/Vol] 8.8 g/dL Low 14.0-17.2 [facility] Comment on above: Performed By: #### L 200.0010 ####ML [facility] DKTYIYJJWY[address] [place] [address] IMM GRAN# 0.09 x10(3) High 0-0 [facility] Comment on above: Performed By: #### L 200.0010 ####ML [address] [address] IMM GRAN% 0.9 % Normal [facility] Comment on above: Performed By: #### L 200.0010 ####[address] [address] LYMPH# 0.95 x10(3) Low 1.00-3.50 [facility] Comment on above: Performed By: #### L 200.0010 ####ML [address] [address] Lymphocytes/100 WBC (Bld) 9.2 % Low 16.0-48.0 [facility] Comment on above: Performed By: #### L 200.0010 ####[address] [address] MCH (RBC) [Entitic mass] 29.2 pg Normal 28.8-32.2 [facility] Comment on above: Performed By: #### L 200.0010 ####ML [address] [address] MCHC (RBC) [Mass/Vol] 30.9 g/dL Low 33.0-36.0 [facility] Comment on above: Performed By: #### L 200.0010 ####[address] [address] MCV (RBC) [Entitic vol] 94.7 fL High 80.0-94.0 [facility] Comment on above: Performed By: #### L 200.0010 ####[address] [place] [address] MONO# 0.67 x10(3) Normal 0.30-0.80 [facility] Comment on above: Performed By: #### L 200.0010 ####ML [address] [address] Monocytes/100 WBC (Bld) 6.5 % Normal 4.3-11.2 [facility] Comment on above: Performed By: #### L 200.0010 ####ML [address] [address] NEUT# 8.51 x10(3) High 1.40-6.50 [facility] Comment on above: Performed By: #### L 200.0010 ####ML [address] [address] Neutrophils/100 WBC (Bld) 82.7 % High 45.0-73.0 [facility] Comment on above: Performed By: #### L 200.0010 ####ML [address] [address] Platelet mean volume (Bld) [Entitic vol] 8.9 fL Normal 7.4-9.2 [facility] Comment on above: Performed By: #### L 200.0010 ####ML [address] [address] PLT 256 X10(3) Normal 150-450 [facility] Comment on above: Performed By: #### L 200.0010 ####ML [address] [address] RBC 3.01 x10(6) Low 4.80-5.50 [facility] Comment on above: Performed By: #### L 200.0010 ####ML [address] [address] WBC 10.3 x10(3) High 4.5-10.0 [facility] Comment on above: Performed By: #### L 200.0010 ####ML [address] [address] CHEST-ONE VIEW ONLY - CXR1on 05-15-2023 CHEST-ONE VIEW ONLY - CXR1 [facility] EMERGENCY DEPARTMENT REPORTo n 05-15-2023 EMERGENCY DEPARTMENT REPORT [facility] EMERGENCY DEPARTMENT REPORT Normal [facility] GLUCOSE FSon 05-15-2023 Glucose [Mass/Vol] 146 mg/dL High 70-110 [facility] Comment on above: Performed By: #### L 100.0070 ####ML - FFJMCHAZCU[address] [place] [address] Glucose [Mass/Vol] 194 mg/dL High 70-110 [facility] Comment on above: Performed By: #### L 100.0070 ####ML - SDIRKOPAXH[address] [place] [address] Glucose [Mass/Vol] 53 mg/dL Low 70-110 [facility] Comment on above: Performed By: #### L 100.0070 ####ML [facility] RJOLGJOINB[address] [place] [address] PRO-BNPon 05-15-2023 Natriuretic peptide B (Bld) [Mass/Vol] 66097 pg/mL [facility] Comment on above: Result Comment: HF U NLIKELY: NT-PRO BNP <300 pg/mLHF LIKELY: NT-PRO BNP >450 pg/mL (AGE <50) NT-PRO BNP >900 pg/mL (AGE 50-75) NT-PRO BNP >1800 pg/mL (AGE >75)HF VERY LIKELY: NT-PRO BNP >10,000 pg/mLSOURCE: PRIDE ALGORITHM FOR PRO-BNP; CRITICAL PATHWAYS INCARDIOLOGY VOLUME 3, NUMBER 4; AUGUST 2004 Performed By: #### L 301.0460 ####ML - OFNNZAKBXL600 [place] [address] PROCALCITONINon 05-15-2023 PROCALCITONIN 0.17 ng/mL High 0.06-0.09 [facility] Comment on above: Order Comment: ADD O N Performed By: #### L 304.0500 ####ML - [facility] TFTMTUPMGI[address] [place] [address] PTon 05-15-2023 INR Coag (PPP) [Relative time] 1.8 {INR} High 0.8-1.1 [facility] Comment on above: Result Comment: CO UMADIN PROTOCOLSINR values are generated for use in patients on coumadin.INR values stabilize 7 days after the start of coumadin orchanges in coumadin dosage. The usual TARGET/INR range is:INDICATION INR RANGEProphylaxis/treatment of: Venous Thrombosis, Pulmonary Embolism 2.0-3.0Prevention of systemic embolism from: Tissue heart valves 2.0-3.0 Acute myocardial infarction (to prevent systemic embolism) 2.0-3.0 AMI (to prevent recurrent AR) 2.5-3.5Valvular heart disease 2.0-3.0 Atrial fibrillation 2.0-3.0Mechanical prosthetic valves (high risk) 2.5-3.5Bileaflet mechanical valve in aortic position 2.0-3.0Presence of Lupus Anticoagulant orAntiphospholipid Antibodies 2.5-3.5PANIC VALUE: GREATER THAN OR EQUAL TO 4.5 Performed By: #### L 200.1642, L200.1602 ####[facility] LJAZMPYXYI603 [place] [address] PT Coag (PPP) [Time] 20.5 s High 9.4-12.5 [facility] Comment on above: Performed By: #### L 200.1642, L200.1602 ####ML - NABGSMOCFY486 [place] [address] PTTon 05-15-2023 aPTT Coag (Bld) [Time] 37.6 s High 25.1-36.5 [facility] Comment on above: Result Comment: Hepa rin Protocol Therapeutic Range = 54.0-90.0 secs Performed By: #### L 200.1642, L200.1602 ####[facility] QLYTRONQSX194 [place] [address] hsTROP Ton 05-15-2023 hsTROP T 87.97 ng/L Critically high 6-12 [facility] Comment on above: Result Comment: When assessing risk for acute coronary syndromes: Inpatients undergoing blood draw greater than 2 hours fromsymptom onset, with history of very low to moderate riskand non-ischemic ECG, an initial hs-Troponin T less than 12ng/L AND a 1 hour delta hs-Troponin T less than 3 ng/Lshould be considered very low risk for 30 day MACE. Performed By: #### L 301.0080 ####ML - [id number] [place] [address] hsTROP T 88.42 ng/L Critically high - [facility] Comment on above: Result Comment: When assessing risk for acute coronary syndromes: Inpatients undergoing blood draw greater than 2 hours fromsymptom onset, with history of very low to moderate riskand non-ischemic ECG, an initial hs-Troponin T less than 12ng/L AND a 1 hour delta hs-Troponin T less than 3 ng/Lshould be considered very low risk for 30 day MACE. Performed By: #### L 100.0010, L301.0080 ####ML - HOCNRUGCOL252 [place] [address] HbA1c (Bld)on 04-26-2023 HbA1c (Bld) [Mass fraction] 6.9 % High 4.3 - 6.1 % [facility] [id number] 04-26-2023 HbA1c (Bld) [Mass fraction] 6.9 % High 4.3-6.1 [facility] Comment on above: Result Comment: More mated Average Glucose:HgbA1C % mg/dL4.0 685.0 976.0 1257.0 1548.0 1839.0 93183.0 240Source: [place] [employer] web site, 2017. Performed By: #### L 200.2000 ####ML - UPREUSHMFB036 [place] [address] ALBUMIN/CREAT RATIO RND URon 04-24-2023 Creatinine Urine 71.61 mg/dL 39 - 259 mg/dL [facility] Microalbumin, Urine 876 mg/L High 0 - 20 mg/L [facility] Microalbumin/Creat ratio 1223 mg/g High 0 - 30 mg/g [facility] Denny 04-24-2023 ALT [Catalytic activity/Vol] 6 U/L Normal 5-41 [facility] Comment on above: Performed By: #### L 100.0010, L100.0240, L100.0250 ####[facility] CAMRSAGIND445 [place] [address] ALT/SGPTon 04-24-2023 ALT [Catalytic activity/Vol] 6 U/L 5 - 41 U/L [facility] Jonathan 04-24-2023 AST [Catalytic activity/Vol] 14 U/L Normal 5-40 [facility] Comment on above: Performed By: #### L 100.0010, L100.0240, L100.0250 ####ML [facility] HLALESRRNH[address] [place] [address] AST/SGOT BLDon 04-24-2023 AST [Catalytic activity/Vol] 14 U/L 5 - 40 U/L [facility] BMPon 04-24-2023 Anion gap [Moles/Vol] 21.0 mmol/L Normal 15-22 [facility] Comment on above: Performed By: #### L 100.0010, L100.0240, L100.0250 ####[facility] [address] [place] [address] Calcium [Mass/Vol] 8.8 mg/dL Normal 8.8-10.2 [facility] Comment on above: Performed By: #### L 100.0010, L100.0240, L100.0250 ####[facility] [address]WS[address]XCJ[address] [place] [address] Chloride [Moles/Vol] 96 mmol/L Low 98-107 [facility] Comment on above: Performed By: #### L 100.0010, L100.0240, L100.0250 ####[facility] HBURXQRDXM022 [place] [address] CO2 [Moles/Vol] 24 mmol/L Normal 22-29 [facility] Comment on above: Performed By: #### L 100.0010, L100.0240, L100.0250 ####[facility] PSLQZQQBWA886 [place] [address] Creatinine [Mass/Vol] 3.56 mg/dL High 0.73-1.22 [facility] Comment on above: Performed By: #### L 100.0010, L100.0240, L100.0250 ####[facility] CQMLQCLTYO879 [place] [address] eGFR if AFR TIFFANY 21 [facility] Comment on above: Result Comment: eGFR >= 60 Indicates normal kidney function. * eGFR IS AN ESTIMATE * (AFR TIFFANY = ) (non-AFR AM = NON-) MDRD calculation used in the eGFR should not be used to dose medications. For further limitations of the eGFR please refer to the Physician Website or the National Kidney Disease Education Program website (www.nkdep.nih.gov). Performed By: #### L 100.0010, L100.0240, L100.0250 ####[facility] [place] [address] eGFR nonAFR Tiffany 17 [facility] Comment on above: Performed By: #### L 100.0010, L100.0240, L100.0250 ####[facility] MHPEVDHEPU281 [place] [address] Glucose [Mass/Vol] 130 mg/dL High 82-115 [facility] Comment on above: Performed By: #### L 100.0010, L100.0240, L100.0250 ####[facility] SRGXYDCIOV544 [place] [address] Potassium [Moles/Vol] 4.0 mmol/L Normal 3.5-5.0 [facility] Comment on above: Performed By: #### L 100.0010, L100.0240, L100.0250 ####[facility] LXWLNWTZKU911 [place] [address] Sodium [Moles/Vol] 137 mmol/L Normal 135-145 [facility] Comment on above: Performed By: #### L 100.0010, L100.0240, L100.0250 ####[facility] HHFJHVVSUL171 [place] [address] Urea nitrogen [Mass/Vol] 80 mg/dL High 8-23 [facility] Comment on above: Performed By: #### L 100.0010, L100.0240, L100.0250 ####ML - CPRNDJABNL321 [place] [address] Basic metabolic 2000 panelon 04-24-2023 Anion gap [Moles/Vol] 21.0 mmol/L 15 - 2 2 mmol/L [facility] Calcium [Mass/Vol] 8.8 mg/dL 8.8 - 10. 2 mg/dL [facility] Chloride [Moles/Vol] 96 mmol/L Low 98 - 10 7 mmol/L [facility] CO2 [Moles/Vol] 24 mmol/L 22 - 29 mmol/L [facility] Creatinine [Mass/Vol] 3.56 mg/dL High 0.73 - 1.22 mg/dL [facility] eGFR-All Other Races 17 [facility] GFR/1.73 sq M.predicted among blacks MDRD (S/P/Bld) [Vol rate/Area] 21 mL/min/{1.73_m2} [facility] Glucose [Mass/Vol] 130 mg/dL High 82 - 115 mg/dL [facility] Potassium [Moles/Vol] 4.0 mmol/L 3.5 - 5.0 mmol/L [facility] Sodium [Moles/Vol] 137 mmol/L 135 - 145 mmol/L [facility] Urea nitrogen [Mass/Vol] 80 mg/dL High 8 - 23 mg/dL [facility] CBCon 04-24-2023 BASO# 0.04 x10(3) Normal 0.00-0.10 [facility] Comment on above: Performed By: #### L 200.0010 ####ML - MGDWSIYHET397 [place] [address] Basophils/100 WBC (Bld) 0.3 % Normal 0.0-1.0 [facility] Comment on above: Performed By: #### L 200.0010 ####ML - TFTBUHXVFP319 [place] [address] EOS# 0.16 x10(3) Normal 0.00-0.54 [facility] Comment on above: Performed By: #### L 200.0010 ####ML - WQFJZWTHKL[address] [place] [address] Eosinophils/100 WBC (Bld) 1.2 % Normal 0.5-4.9 [facility] Comment on above: Performed By: #### L 200.0010 ####ML - RPBSBRUPJE[address] [place] [address] Erythrocyte distribution width (RBC) [Ratio] 14.5 % Normal 12.7-15.3 [facility] Comment on above: Performed By: #### L 200.0010 ####ML - OQQDUCSUUI[address] [place] [address] Hematocrit (Bld) [Volume fraction] 32.4 % Low 42.0-51.0 [facility] Comment on above: Performed By: #### L 200.0010 ####ML [address] [address] Hemoglobin (Bld) [Mass/Vol] 10.0 g/dL Low 14.0-17.2 [facility] Comment on above: Performed By: #### L 200.0010 ####ML [facility] NZDWSPDATQ[address] [place] [address] IMM GRAN# 0.20 x10(3) High 0-0 [facility] Comment on above: Performed By: #### L 200.0010 ####ML - NXQZGDELIE[address] [place] [address] IMM GRAN% 1.5 % Normal [facility] Comment on above: Performed By: #### L 200.0010 ####ML - TYVCGAVOHQ[address] [place] [address] LYMPH# 1.24 x10(3) Normal 1.00-3.50 [facility] Comment on above: Performed By: #### L 200.0010 ####ML [facility] ZZHQSZ[address] [place] [address] Lymphocytes/100 WBC (Bld) 9.3 % Low 16.0-48.0 [facility] Comment on above: Performed By: #### L 200.0010 ####ML - HWKNMHDUBT[address] [place] [address] MCH (RBC) [Entitic mass] 28.7 pg Low 28.8-32.2 [facility] Comment on above: Performed By: #### L 200.0010 ####ML - KIPXENQLQV[address] [place] [address] MCHC (RBC) [Mass/Vol] 30.9 g/dL Low 33.0-36.0 [facility] Comment on above: Performed By: #### L 200.0010 ####ML - [address] [address] MCV (RBC) [Entitic vol] 92.8 fL Normal 80.0-94.0 [facility] Comment on above: Performed By: #### L 200.0010 ####[address] [address] MONO# 0.66 x10(3) Normal 0.30-0.80 [facility] Comment on above: Performed By: #### L 200.0010 ####ML [address] [address] Monocytes/100 WBC (Bld) 5.0 % Normal 4.3-11.2 [facility] Comment on above: Performed By: #### L 200.0010 ####ML [address] [address] NEUT# 10.99 x10(3) High 1.40-6.50 [facility] Comment on above: Performed By: #### L 200.0010 ####ML [facility] PLPF[address]RQ[address] [place] [address] Neutrophils/100 WBC (Bld) 82.7 % High 45.0-73.0 [facility] Comment on above: Performed By: #### L 200.0010 ####ML [facility] MSSVTEVGLQ[address] [place] [address] Platelet mean volume (Bld) [Entitic vol] 8.9 fL Normal 7.4-9.2 [facility] Comment on above: Performed By: #### L 200.0010 ####ML - [facility] PMVXJNKVXT935 [place] [address] PLT 331 X10(3) Normal 150-450 [facility] Comment on above: Performed By: #### L 200.0010 ####ML - OPDSHXZTAG259 [place] [address] RBC 3.49 x10(6) Low 4.80-5.50 [facility] Comment on above: Performed By: #### L 200.0010 ####ML - EUMPWQSJQR564 [place] [address] WBC 13.3 x10(3) High 4.5-10.0 [facility] Comment on above: Performed By: #### L 200.0010 ####ML - SYBKLPCPMK831 [place] [address] CBC W Auto Differential pane l (Bld)on 04-24-2023 BASO ABS 0.04 x10(3) 0.00 - 0.10 x10(3) [facility] Basophils/100 WBC (Bld) 0.3 % 0.0 - 1.0 % [facility] EOS ABS 0.16 x10(3) 0.00 - 0.54 x10(3) [facility] Eosinophils/100 WBC (Bld) 1.2 % 0.5 - 4.9 % [facility] Erythrocyte distribution width (RBC) [Ratio] 14.5 % 12.7 - 15.3 % [facility] Hematocrit (Bld) [Volume fraction] 32.4 % Low 42.0 - 51.0 % [facility] Hemoglobin (Bld) [Mass/Vol] 10.0 g/dL Low 14.0 - 17.2 g/dL [facility] Immature Gran % 1.5 % [facility] Immature Gran Abs 0.20 x10(3) High 0 - 0 x10(3) [facility] 1.24 x10(3) 1.00 - 3.50 x10(3) [facility] Lymphocytes/100 WBC (Bld) 9.3 % Low 16.0 - 48.0 % [facility] MCH (RBC) [Entitic mass] 28.7 pg Low 28.8 - 32.2 pg [facility] MCHC (RBC) [Mass/Vol] 30.9 g/dL Low 33.0 - 36.0 g/dL [facility] MCV (RBC) [Entitic vol] 92.8 fL 80.0 - 94.0 fl [facility] MONO ABS 0.66 x10(3) 0.30 - 0.80 x10(3) [facility] Monocytes/100 WBC (Bld) 5.0 % 4.3 - 11.2 % [facility] Neutrophil Ab 10.99 x10(3) High 1.40 - 6.50 x10(3) [facility] Neutrophils/100 WBC (Bld) 82.7 % High 45.0 - 73.0 % [facility] Platelet mean volume (Bld) [Entitic vol] 8.9 fL 7.4 - 9.2 fl [facility] Platelets (Bld) [#/Vol] 331 X10(3) 150 - 450 X10(3) [facility] RBC (Bld) [#/Vol] 3.49 x10(6) Low 4.80 - 5.5 0 x10(6) [facility] WBC (Bld) [#/Vol] 13.3 x10(3) High 4.5 - 10.0 x10(3) [facility] MICROALB/CREATon 04-24-2023 Creatinine [Mass/Vol] 71.61 mg/dL Normal 39-259 [facility] Comment on above: Performed By: #### L [id number] ####[facility] [id number] [place] [address] MICROALB./CREAT 1223 mg/g High 0-30 [facility] Comment on above: Performed By: #### L 100.0730 ####ML [facility] [id number] [place] [address] MICROALBUMIN 876 mg/L High 0-20 [facility] Comment on above: Performed By: #### L 100.0730 ####[facility] [id number] [place] [address] RENALon 04-24-2023 Albumin [Mass/Vol] 2.8 g/dL Low 3.5-5.2 [facility] Comment on above: Performed By: #### L 100.0020 ####ML - [id number] [place] [address] Anion gap [Moles/Vol] 20.0 mmol/L Normal 15-22 [facility] Comment on above: Performed By: #### L 100.0020 ####ML - [id number] [place] [address] Calcium [Mass/Vol] 8.8 mg/dL Normal 8.8-10.2 [facility] Comment on above: Performed By: #### L 100.0020 ####ML - FVXZIKYTIY[address] [place] [address] 39272 Chloride [Moles/Vol] 96 mmol/L Low 98-107 [facility] Comment on above: Performed By: #### L 100.0020 ####ML - [id number] [place] [address] 875[address] CO2 [Moles/Vol] 24 mmol/L Normal 22-29 [facility] Comment on above: Performed By: #### L 100.0020 ####ML - [id number] [place] [address]67 Creatinine [Mass/Vol] 3.56 mg/dL High 0.73-1.22 [facility] Comment on above: Performed By: #### L 100.0020 ####ML - [id number] [place] [address] 57594 eGFR if AFR TIFFANY 21 Normal [facility] Comment on above: Result Comment: eGFR >= 60 Indicates normal kidney function. * eGFR IS AN ESTIMATE * (AFR TIFFANY = ) (non-AFR AM = NON-) MDRD calculation used in the eGFR should not be used to dose medications. For further limitations of the eGFR please refer to the Physician Website or the National Kidney Disease Education Program website (www.nkdep.nih.gov). Performed By: #### L 100.0020 ####ML - [id number] [place] [address] eGFR nonAFR Tiffany 17 Normal [facility] Comment on above: Performed By: #### L 100.0020 ####ML - [id number] [place] [address] Glucose [Mass/Vol] 132 mg/dL High 82-115 [facility] Comment on above: Performed By: #### L 100.0020 ####ML - [id number] [place] [address] Phosphate [Mass/Vol] 3.5 mg/dL Normal 2.5-4.5 [facility] Comment on above: Performed By: #### L 100.0020 ####ML - [id number] [place] [address] Potassium [Moles/Vol] 4.0 mmol/L Normal 3.5-5.0 [facility] Comment on above: Performed By: #### L 100.0020 ####ML - [id number] [place] [address] 27[address] Sodium [Moles/Vol] 136 mmol/L Normal 135-145 [facility] Comment on above: Performed By: #### L 100.0020 ####ML - XORXAXZVYU401 [place] [address] Urea nitrogen [Mass/Vol] 79 mg/dL High 8-23 [facility] Comment on above: Performed By: #### L 100.0020 ####ML - [id number] [place] [address] Renal function 2000 panelon 04-24-2023 Albumin [Mass/Vol] 2.8 g/dL Low 3.5 - 5.2 g/dL [facility] Anion gap [Moles/Vol] 20.0 mmol/L 15 - 2 2 mmol/L [facility] Calcium [Mass/Vol] 8.8 mg/dL 8.8 - 10. 2 mg/dL [facility] Chloride [Moles/Vol] 96 mmol/L Low 98 - 10 7 mmol/L [facility] CO2 [Moles/Vol] 24 mmol/L 22 - 29 mmol/L [facility] Creatinine [Mass/Vol] 3.56 mg/dL High 0.73 - 1.22 mg/dL [facility] eGFR-All Other Races 17 [facility] GFR/1.73 sq M.predicted among blacks MDRD (S/P/Bld) [Vol rate/Area] 21 mL/min/{1.73_m2} [facility] Glucose [Mass/Vol] 132 mg/dL High 82 - 115 mg/dL [facility] Phosphate (Bld) [Moles/Vol] 3.5 mg/dL 2.5 - 4.5 mg/dL [facility] Potassium [Moles/Vol] 4.0 mmol/L 3.5 - 5.0 mmol/L [facility] Sodium [Moles/Vol] 136 mmol/L 135 - 145 mmol/L [facility] Urea nitrogen [Mass/Vol] 79 mg/dL High 8 - 23 mg/dL [facility] CBCon 02-27-2023 BASO# 0.10 x10(3) Normal 0.00-0.10 [facility] Comment on above: Performed By: #### L 200.0010 ####ML [facility] [id number] [place] [address] Basophils/100 WBC (Bld) 1.0 % Normal 0.0-1.0 [facility] Comment on above: Performed By: #### L 200.0010 ####[facility] [id number] [place] [address] EOS# 0.20 x10(3) Normal 0.00-0.54 [facility] Comment on above: Performed By: #### L 200.0010 ####[facility] DLEMFJVFSV545 [place] [address] Eosinophils/100 WBC (Bld) 2.4 % Normal 0.5-4.9 [facility] Comment on above: Performed By: #### L 200.0010 ####[facility] VIYTMQZZYP738 [place] [address] Erythrocyte distribution width (RBC) [Ratio] 16.5 % High 12.7-15.3 [facility] Comment on above: Performed By: #### L 200.0010 ####[facility] [address] [place] [address] 89270 Hematocrit (Bld) [Volume fraction] 34.7 % Low 42.0-51.0 [facility] Comment on above: Performed By: #### L 200.0010 ####ML - JXSIRITKTA[address] [place] [address] 05565 Hemoglobin (Bld) [Mass/Vol] 11.3 g/dL Low 14.0-17.2 [facility] Comment on above: Performed By: #### L 200.0010 ####ML [facility] [address] [place] [address] 44450 LYMPH# 1.90 x10(3) Normal 1.00-3.50 [facility] Comment on above: Performed By: #### L 200.0010 ####ML [address] [address] Lymphocytes/100 WBC (Bld) 22.8 % Normal 16.0-48.0 [facility] Comment on above: Performed By: #### L 200.0010 ####ML [facility] GVBUTX[address] [place] [address] 29534 MCH (RBC) [Entitic mass] 28.9 pg Normal 28.8-32.2 [facility] Comment on above: Performed By: #### L 200.0010 ####ML - [address] [address] MCHC (RBC) [Mass/Vol] 32.5 g/dL Low 33.0-36.0 [facility] Comment on above: Performed By: #### L 200.0010 ####[facility] Q[address] [place] [address] 43389 MCV (RBC) [Entitic vol] 89.0 fL Normal 80.0-94.0 [facility] Comment on above: Performed By: #### L 200.0010 ####[facility] [id number] [place] [address] 99222 MONO# 0.80 x10(3) Normal 0.30-0.80 [facility] Comment on above: Performed By: #### L 200.0010 ####[facility] VUGYMYK[address] [place] [address]36 Monocytes/100 WBC (Bld) 9.2 % Normal 4.3-11.2 [facility] Comment on above: Performed By: #### L 200.0010 ####ML [facility] [address]QFQ[address]GAV[address] [place] [address] 98526 NEUT# 5.30 x10(3) Normal 1.40-6.50 [facility] Comment on above: Performed By: #### L 200.0010 ####ML - [id number] [place] [address] 73619 Neutrophils/100 WBC (Bld) 64.6 % Normal 45.0-73.0 [facility] Comment on above: Performed By: #### L 200.0010 ####ML [facility] [address]ZW[address] [place] [address] 71204 Platelet mean volume (Bld) [Entitic vol] 7.3 fL Low 7.4-9.2 [facility] Comment on above: Performed By: #### L 200.0010 ####ML [facility] K[address] [place] [address] 75781 PLT 246 X10(3) Normal 150-450 [facility] Comment on above: Performed By: #### L 200.0010 ####[facility] HGPJXKCF[address] [place] [address] 49622 RBC 3.90 x10(6) Low 4.80-5.50 [facility] Comment on above: Performed By: #### L 200.0010 ####[facility] LI[address]FCQWHN[address] [place] [address] 70731 WBC 8.3 x10(3) Normal 4.5-10.0 [facility] Comment on above: Performed By: #### L 200.0010 ####ML [facility] [id number] [place] [address] 76782 CBC W Auto Differential pane l (Bld)on 02-27-2023 BASO ABS 0.10 x10(3) 0.00 - 0.10 x10(3) [facility] Basophils/100 WBC (Bld) 1.0 % 0.0 - 1.0 % [facility] EOS ABS 0.20 x10(3) 0.00 - 0.54 x10(3) [facility] Eosinophils/100 WBC (Bld) 2.4 % 0.5 - 4.9 % [facility] Erythrocyte distribution width (RBC) [Ratio] 16.5 % High 12.7 - 15.3 % [facility] Hematocrit (Bld) [Volume fraction] 34.7 % Low 42.0 - 51.0 % [facility] Hemoglobin (Bld) [Mass/Vol] 11.3 g/dL Low 14.0 - 17.2 g/dL [facility] LYMPH ABS 1.90 x10(3) 1.00 - 3.50 x10(3) [facility] Lymphocytes/100 WBC (Bld) 22.8 % 16.0 - 48.0 % [facility] MCH (RBC) [Entitic mass] 28.9 pg 28.8 - 32.2 pg [facility] MCHC (RBC) [Mass/Vol] 32.5 g/dL Low 33.0 - 36.0 g/dL [facility] MCV (RBC) [Entitic vol] 89.0 fL 80.0 - 94.0 fl [facility] MONO ABS 0.80 x10(3) 0.30 - 0.80 x10(3) [facility] Monocytes/100 WBC (Bld) 9.2 % 4.3 - 11.2 % [facility] Neutrophil Ab 5.30 x10(3) 1.40 - 6.50 x10(3) [facility] Neutrophils/100 WBC (Bld) 64.6 % 45.0 - 73.0 % [facility] Platelet mean volume (Bld) [Entitic vol] 7.3 fL Low 7.4 - 9.2 fl [facility] Platelets (Bld) [#/Vol] 246 X10(3) 150 - 450 X10(3) [facility] RBC (Bld) [#/Vol] 3.90 x10(6) Low 4.80 - 5.5 0 x10(6) [facility] WBC (Bld) [#/Vol] 8.3 x10(3) 4.5 - 10.0 x10(3) [facility] Creatinine Unsp time (U) [Ma ss/Vol]on 02-27-2023 Creatinine, Ur Random (UCRR) 27.8 mg/dL Low 39 - 259 mg/dL [facility] FERRITINon 02-27-2023 Ferritin [Mass/Vol] 112.1 ng/mL Normal 30-400 [facility] Comment on above: Performed By: #### L 100.0020, L304.0240, L100.0500 ####ML - [id number] [place] [address] FERRITIN BLDon 02-27-2023 Ferritin [Mass/Vol] 112.1 ng/mL 30 - 400 ng/mL [facility] IRON & TIBCon 02-27-2023 % FE. SAT. 14 % Low 18-39 [facility] Comment on above: Performed By: #### L 100.0400 ####ML [facility] [id number] [place] [address] Iron [Mass/Vol] 52 ug/dL Low 59-158 [facility] Comment on above: Performed By: #### L 100.0400 ####ML [facility] [id number] [place] [address] TIBC 356 mg/dL Normal 252-461 [facility] Comment on above: Performed By: #### L 100.0400 ####[facility] GSGHUEFTXU768 [place] [address] Transferrin [Mass/Vol] 254 mg/dL Normal 200-360 [facility] Comment on above: Performed By: #### L 100.0400 ####[facility] [id number] [place] [address] Iron and Iron binding capaci ty panelon 02-27-2023 % Saturation (TIBC) 14 % Low 18 - 39 % [facility] Iron [Mass/Vol] 52 ug/dL Low 59 - 158 ug/dL [facility] TIBC 356 mg/dL 252 - 461 mg/dL [facility] Transferrin [Mass/Vol] 254 mg/dL 200 - 360 mg/dL [facility] PTHon 02-27-2023 PTH 332.4 pg/mL High 15-65 [facility] Comment on above: Performed By: #### L 304.0135 ####[facility] OZIBPWAYTI975 [place] [address] Parathyrin.intact [Mass/Vol] on 02-27-2023 PTH 332.4 pg/mL High 15 - 65 pg/mL [facility] Protein (U) [Mass/Vol]on Protein.monoclonal (U) [Mass/Vol] 108.8 mg/dL High 0 - 15 mg/dL [facility] RENALon 02-27-2023 Albumin [Mass/Vol] 3.4 g/dL Low 3.5-5.2 [facility] Comment on above: Performed By: #### L 100.0020, L304.0240, L100.0500 #### - [id number] [place] [address] Anion gap [Moles/Vol] 16.7 mmol/L Normal 15-22 [facility] Comment on above: Performed By: #### L 100.0020, L304.0240, L100.0500 #### - TETVGUUPQC[address] [place] [address] 21059 Calcium [Mass/Vol] 8.4 mg/dL Low 8.8-10.2 [facility] Comment on above: Performed By: #### L 100.0020, L304.0240, L100.0500 #### - [id number] [place] [address] Chloride [Moles/Vol] 98 mmol/L Normal 98-107 [facility] Comment on above: Performed By: #### L 100.0020, L304.0240, L100.0500 #### - [id number] [place] [address] CO2 [Moles/Vol] 28 mmol/L Normal 22-29 [facility] Comment on above: Performed By: #### L 100.0020, L304.0240, L100.0500 #### - [id number] [place] [address] Creatinine [Mass/Vol] 3.09 mg/dL High 0.70-1.20 [facility] Comment on above: Performed By: #### L 100.0020, L304.0240, L100.0500 ####[facility] [place] [address] eGFR if AFR TIFFANY 24 [facility] Comment on above: Result Comment: eGFR >= 60 Indicates normal kidney function. * eGFR IS AN ESTIMATE * (AFR TIFFANY = ) (non-AFR AM = NON-) MDRD calculation used in the eGFR should not be used to dose medications. For further limitations of the eGFR please refer to the Physician Website or the National Kidney Disease Education Program website (www.nkdep.nih.gov). Performed By: #### L 100.0020, L304.0240, L100.0500 ####[facility] [place] [address] 07800 eGFR nonAFR Tiffany 20 [facility] Comment on above: Performed By: #### L 100.0020, L304.0240, L100.0500 ####[facility] [place] [address]120 Glucose [Mass/Vol] 162 mg/dL High 82-115 [facility] Comment on above: Performed By: #### L 100.0020, L304.0240, L100.0500 ####[facility] FATUPLDHPS059 [place] [address] Phosphate [Mass/Vol] 4.6 mg/dL High 2.5-4.5 [facility] Comment on above: Performed By: #### L 100.0020, L304.0240, L100.0500 ####[facility] [address] [place] [address] Potassium [Moles/Vol] 3.7 mmol/L Normal 3.5-5.0 [facility] Comment on above: Performed By: #### L 100.0020, L304.0240, L100.0500 ####ML - [facility] [id number] [place] [address] Sodium [Moles/Vol] 139 mmol/L Normal 135-145 [facility] Comment on above: Performed By: #### L 100.0020, L304.0240, L100.0500 ####ML - [facility] [id number] [place] [address] Urea nitrogen [Mass/Vol] 77 mg/dL High 8-23 [facility] Comment on above: Performed By: #### L 100.0020, L304.0240, L100.0500 ####ML - [facility] QBYEBCXEWL425 [place] [address] Renal function 2000 panelon 02-27-2023 Albumin [Mass/Vol] 3.4 g/dL Low 3.5 - 5.2 g/dL [facility] Anion gap [Moles/Vol] 16.7 mmol/L 15 - 2 2 mmol/L [facility] Calcium [Mass/Vol] 8.4 mg/dL Low 8.8 - 10. 2 mg/dL [facility] Chloride [Moles/Vol] 98 mmol/L 98 - 10 7 mmol/L [facility] CO2 [Moles/Vol] 28 mmol/L 22 - 29 mmol/L [facility] Creatinine [Mass/Vol] 3.09 mg/dL High 0.70 - 1.20 mg/dL [facility] eGFR-All Other Races 20 [facility] GFR/1.73 sq M.predicted among blacks MDRD (S/P/Bld) [Vol rate/Area] 24 mL/min/{1.73_m2} [facility] Glucose [Mass/Vol] 162 mg/dL High 82 - 115 mg/dL [facility] Phosphate (Bld) [Moles/Vol] 4.6 mg/dL High 2.5 - 4.5 mg/dL [facility] Potassium [Moles/Vol] 3.7 mmol/L 3.5 - 5.0 mmol/L [facility] Sodium [Moles/Vol] 139 mmol/L 135 - 145 mmol/L [facility] Urea nitrogen [Mass/Vol] 77 mg/dL High 8 - 23 mg/dL [facility] URIC ACIDon 02-27-2023 Urate [Mass/Vol] 12.5 mg/dL High 3.4-7.0 [facility] Comment on above: Performed By: #### L 100.0020, L304.0240, L100.0500 #### - [id number] [place] [address] URIC ACID BLOODon 02-27-2023 Urate [Mass/Vol] 12.5 mg/dL High 3.4 - 7.0 mg/dL [facility] URINE CREATININon 02-27-2023 URINE CREATININ 27.8 mg/dL Low 39-259 [facility] Comment on above: Performed By: #### L 100.0780, L100.0800 ####ML - [id number] [place] [address] URINE PROT RNDMon 02-27-2023 URINE PROT RNDM 108.8 mg/dL High 0-15 [facility] Comment on above: Performed By: #### L 100.0780, L100.0800 ####[facility] [address] [place] [address] 52333 HbA1c (Bld)on 01-31-2023 HbA1c (Bld) [Mass fraction] 7.2 % High 4.3 - 6.1 % [facility] [id number] 01-31-2023 HbA1c (Bld) [Mass fraction] 7.2 % High 4.3-6.1 [facility] Comment on above: Result Comment: More mated Average Glucose:HgbA1C % mg/dL4.0 685.0 976.0 1257.0 1548.0 1839.0 78477.0 240Source: [place] [employer] web site, 2017. Performed By: #### L 200.2000 ####ML - [id number] [place] [address] Denny 01-28-2023 ALT [Catalytic activity/Vol] 6 U/L Normal 5-41 [facility] Comment on above: Performed By: #### L 100.0010, L100.0040, L100.0250, L100.0240 #### - [id number] [place] [address] ALT/SGPTon 01-28-2023 ALT [Catalytic activity/Vol] 6 U/L 5 - 41 U/L [facility] Jonathan 01-28-2023 AST [Catalytic activity/Vol] 17 U/L Normal 5-40 [facility] Comment on above: Performed By: #### L 100.0010, L100.0040, L100.0250, L100.0240 ####[facility] QEEAVJIXMF545 [place] [address] AST/SGOT BLDon 01-28-2023 AST [Catalytic activity/Vol] 17 U/L 5 - 40 U/L [facility] BMPon 01-28-2023 Anion gap [Moles/Vol] 17.6 mmol/L Normal 15-22 [facility] Comment on above: Performed By: #### L 100.0010, L100.0040, L100.0250, L100.0240 ####[facility] DURCDNAOVS114 [place] [address] Calcium [Mass/Vol] 8.7 mg/dL Low 8.8-10.2 [facility] Comment on above: Performed By: #### L 100.0010, L100.0040, L100.0250, L100.0240 ####[facility] CDSFYPQHHI890 [place] [address] Chloride [Moles/Vol] 98 mmol/L Normal 98-107 [facility] Comment on above: Performed By: #### L 100.0010, L100.0040, L100.0250, L100.0240 ####[facility] HTNYMYJFOQ930 [place] [address] CO2 [Moles/Vol] 27 mmol/L Normal 22-29 [facility] Comment on above: Performed By: #### L 100.0010, L100.0040, L100.0250, L100.0240 ####[facility] BYNMCIUPMC120 [place] [address] Creatinine [Mass/Vol] 3.11 mg/dL High 0.70-1.20 [facility] Comment on above: Performed By: #### L 100.0010, L100.0040, L100.0250, L100.0240 ####[facility] HXDZWKQWHC694 [place] [address] eGFR if AFR TIFFANY 24 [facility] Comment on above: Result Comment: eGFR >= 60 Indicates normal kidney function. * eGFR IS AN ESTIMATE * (AFR TIFFANY = ) (non-AFR AM = NON-) MDRD calculation used in the eGFR should not be used to dose medications. For further limitations of the eGFR please refer to the Physician Website or the National Kidney Disease Education Program website (www.nkdep.nih.gov). Performed By: #### L 100.0010, L100.0040, L100.0250, L100.0240 ####[facility] [place] [address] eGFR nonAFR Tiffany 20 [facility] Comment on above: Performed By: #### L 100.0010, L100.0040, L100.0250, L100.0240 ####[facility] NREBZWPZND970 [place] [address] Glucose [Mass/Vol] 93 mg/dL Normal 82-115 [facility] Comment on above: Performed By: #### L 100.0010, L100.0040, L100.0250, L100.0240 ####[facility] FESKTLWNMG976 [place] [address] Potassium [Moles/Vol] 3.6 mmol/L Normal 3.5-5.0 [facility] Comment on above: Performed By: #### L 100.0010, L100.0040, L100.0250, L100.0240 ####[facility] [place] [address] Sodium [Moles/Vol] 139 mmol/L Normal 135-145 [facility] Comment on above: Performed By: #### L 100.0010, L100.0040, L100.0250, L100.0240 ####ML - [id number] [place] [address] Urea nitrogen [Mass/Vol] 83 mg/dL High 8-23 [facility] Comment on above: Performed By: #### L 100.0010, L100.0040, L100.0250, L100.0240 ####ML - PYQRJQEMVB074 [place] [address] Basic metabolic 2000 panelon 01-28-2023 Anion gap [Moles/Vol] 17.6 mmol/L 15 - 2 2 mmol/L [facility] Calcium [Mass/Vol] 8.7 mg/dL Low 8.8 - 10. 2 mg/dL [facility] Chloride [Moles/Vol] 98 mmol/L 98 - 10 7 mmol/L [facility] CO2 [Moles/Vol] 27 mmol/L 22 - 29 mmol/L [facility] Creatinine [Mass/Vol] 3.11 mg/dL High 0.70 - 1.20 mg/dL [facility] eGFR-All Other Races 20 [facility] GFR/1.73 sq M.predicted among blacks MDRD (S/P/Bld) [Vol rate/Area] 24 mL/min/{1.73_m2} [facility] Glucose [Mass/Vol] 93 mg/dL 82 - 115 mg/dL [facility] Potassium [Moles/Vol] 3.6 mmol/L 3.5 - 5.0 mmol/L [facility] Sodium [Moles/Vol] 139 mmol/L 135 - 145 mmol/L [facility] Urea nitrogen [Mass/Vol] 83 mg/dL High 8 - 23 mg/dL [facility] LIPID PANELon 01-28-2023 Cholesterol [Mass/Vol] 143 mg/dL Normal 130-200 [facility] Comment on above: Performed By: #### L 100.0010, L100.0040, L100.0250, L100.0240 ####ML - [id number] [place] [address] Cholesterol in HDL [Mass/Vol] 41 mg/dL Normal [facility] Comment on above: Result Comment: [place] on[place] Cholesterol Education Program (NCEP) guidelines:<40 mg/dL: Low HDL-Cholesterol(major risk factor for CHD)> or = 60 mg/dL: High HDL-Cholesterol(negative risk factor for CHD)HDL-cholesterol is affected by a number of factors,e.g., smoking, exercise, hormones, sex, and age.4th Generation Test; Results may be approximately 7% lowerthan previous values. Performed By: #### L 100.0010, L100.0040, L100.0250, L100.0240 #### - [id number] [place] [address] Cholesterol in LDL [Mass/Vol] 90 mg/dL [facility] Comment on above: Result Comment: LDL: OPTIMAL FOR PEOPLE AT VERY HIGH RISK <70 OPTIMAL <100 NEAR OPTIMAL 100-129 BORDERLINE HIGH 130-159 HIGH 160-189 VERY HIGH >=190Source: 2008 NCEP ATP III, ADA GuidelinesReviewed: December, Performed By: #### L 100.0010, L100.0040, L100.0250, L100.0240 ####[facility] [address] [place] [address] Cholesterol in VLDL [Mass/Vol] 12 mg/dL Normal 6-40 [facility] Comment on above: Performed By: #### L 100.0010, L100.0040, L100.0250, L100.0240 #### - TKEYBEHJQN717 [place] [address] LDL/HDL RATIO 2.2 [facility] Comment on above: Performed By: #### L 100.0010, L100.0040, L100.0250, L100.0240 ####[facility] LHYCZLRVQM438 [place] [address] Triglyceride [Mass/Vol] 61 mg/dL [facility] Comment on above: Result Comment: TRIG : DESIRABLE: <150 mg/dL Performed By: #### L 100.0010, L100.0040, L100.0250, L100.0240 #### - [id number] [place] [address] Lipid 1996 panelon Cholesterol [Mass/Vol] 143 mg/dL 130 - 200 mg/dL [facility] Cholesterol in HDL [Mass/Vol] 41 mg/dL [facility] Cholesterol in LDL [Mass/Vol] 90 mg/dL [facility] LDL:HDL Ratio 2.2 [facility] Triglyceride [Mass/Vol] 61 mg/dL [facility] VLDL Cholesterol 12 mg/dL 6 - 40 mg/dL [facility] FERRITINon 12-30-2022 Ferritin [Mass/Vol] 162.1 ng/mL Normal 30-400 [facility] Comment on above: Performed By: #### L 304.0240, L100.0390, L100.0020 ####ML - [address] [address] [id number] 12-30-2022 HbA1c (Bld) [Mass fraction] 8.0 % High 4.3-6.1 [facility] Comment on above: Result Comment: More mated Average Glucose:HgbA1C % mg/dL4.0 685.0 976.0 1257.0 1548.0 1839.0 58574.0 240Source: [place] [employer] web site, 2017. Performed By: #### L 200.2000 ####ML - [id number] [place] [id number] CBCon 12-29-2022 BASO# 0.10 x10(3) Normal 0.00-0.10 [facility] Comment on above: Performed By: #### L 200.1000, L200.0010 ####ML - [id number] [place] [address] Basophils/100 WBC (Bld) 1.7 % High 0.0-1.0 [facility] Comment on above: Performed By: #### L 200.1000, L200.0010 ####ML - [id number] [place] [address] EOS# 0.10 x10(3) Normal 0.00-0.54 [facility] Comment on above: Performed By: #### L 200.1000, L200.0010 ####ML - [id number] [place] [address] Eosinophils/100 WBC (Bld) 1.5 % Normal 0.5-4.9 [facility] Comment on above: Performed By: #### L 200.1000, L200.0010 ####ML - [id number] [place] [address] Erythrocyte distribution width (RBC) [Ratio] 15.1 % Normal 12.7-15.3 [facility] Comment on above: Performed By: #### L 200.1000, L200.0010 ####ML - [address] [address] Hematocrit (Bld) [Volume fraction] 31.3 % Low 42.0-51.0 [facility] Comment on above: Performed By: #### L 200.1000, L200.0010 ####ML [address] [address] Hemoglobin (Bld) [Mass/Vol] 10.2 g/dL Low 14.0-17.2 [facility] Comment on above: Performed By: #### L 200.1000, L200.0010 ####ML [facility] [id number] [place] [address] LYMPH# 1.80 x10(3) Normal 1.00-3.50 [facility] Comment on above: Performed By: #### L 200.1000, L200.0010 ####ML [facility] [id number] [place] [address] Lymphocytes/100 WBC (Bld) 53.5 % High 16.0-48.0 [facility] Comment on above: Performed By: #### L 200.1000, L200.0010 ####ML [facility] [id number] [place] [address] [facility] (RBC) [Entitic mass] 28.3 pg Low 28.8-32.2 [facility] Comment on above: Performed By: #### L 200.1000, L200.0010 ####ML - XSQVOPXZXW[address] [place] [address] MCHC (RBC) [Mass/Vol] 32.4 g/dL Low 33.0-36.0 [facility] Comment on above: Performed By: #### L 200.1000, L200.0010 ####ML [address] [address] MCV (RBC) [Entitic vol] 87.4 fL Normal 80.0-94.0 [facility] Comment on above: Performed By: #### L 200.1000, L200.0010 ####ML [facility] B[address] [place] [address] MONO# 1.40 x10(3) High 0.30-0.80 [facility] Comment on above: Performed By: #### L 200.1000, L200.0010 ####ML [address] [address] Monocytes/100 WBC (Bld) 41.6 % High 4.3-11.2 [facility] Comment on above: Performed By: #### L 200.1000, L200.0010 ####ML [facility] ZFLCZFZTYB[address] [place] [address]281 NEUT# 0.10 x10(3) Low 1.40-6.50 [facility] Comment on above: Performed By: #### L 200.1000, L200.0010 ####ML [address] [address] Neutrophils/100 WBC (Bld) 1.7 % Low 45.0-73.0 [facility] Comment on above: Performed By: #### L 200.1000, L200.0010 ####ML [facility] XRZSZSCHZW[address] [place] [address] 91712 Platelet mean volume (Bld) [Entitic vol] 7.5 fL Normal 7.4-9.2 [facility] Comment on above: Performed By: #### L 200.1000, L200.0010 ####[facility] EAF[address] [place] [address] 89283 PLT 297 X10(3) Normal 150-450 [facility] Comment on above: Performed By: #### L 200.1000, L200.0010 ####ML - [id number] [place] [address] RBC 3.59 x10(6) Low 4.80-5.50 [facility] Comment on above: Performed By: #### L 200.1000, L200.0010 ####ML - BJPFRKKBUN003 [place] [address] WBC 3.4 x10(3) Low 4.5-10.0 [facility] Comment on above: Performed By: #### L 200.1000, L200.0010 ####ML - SBTTKCEYNK181 [place] [address] IRON & TIBCon 12-29-2022 % FE. SAT. 15 % Low 18-39 [facility] Comment on above: Performed By: #### L 100.0400 ####ML [facility] EERDLCCIPL[address] [place] [address] 00691 Iron [Mass/Vol] 46 ug/dL Low 59-158 [facility] Comment on above: Performed By: #### L 100.0400 ####ML [facility] RTEZ[address] [place] [address] TIBC 305 mg/dL Normal 252-461 [facility] Comment on above: Performed By: #### L 100.0400 ####ML - WEUNXHXASS[address]33[address] [place] [address] Transferrin [Mass/Vol] 218 mg/dL Normal 200-360 [facility] Comment on above: Performed By: #### L 100.0400 ####ML [facility] YZTHRITUNI[address] [place] [address] MAGNESIUMon 12-29-2022 Magnesium [Mass/Vol] 1.9 mg/dL Normal 1.6-2.4 [facility] Comment on above: Performed By: #### L 304.0240, L100.0390, L100.0020 ####ML - FGLHZQJQFX855 [place] [address] MANUAL DIFFon 12-29-2022 BASOS 1 % Normal 0-1 [facility] Comment on above: Performed By: #### L 200.1000, L200.0010 ####ML - VJCFSHALPV865 [place] [address] EOS 3 % Normal 1-5 [facility] Comment on above: Performed By: #### L 200.1000, L200.0010 ####ML - ZGEODTSPFR343 [place] [address] LYMPHS 61 % High 16-48 [facility] Comment on above: Performed By: #### L 200.1000, L200.0010 ####ML - JCGGYEWCVG[address] [place] [address] MONOS 33 % High 4-12 [facility] Comment on above: Performed By: #### L 200.1000, L200.0010 ####ML - DCLKFUYGXM[address] [place] [address] PLT EST NORMAL [facility] Comment on above: Performed By: #### L 200.1000, L200.0010 ####ML - MAAOXTUFHQ520 [place] [address] RBC MORPH NORMAL Normal [facility] Comment on above: Performed By: #### L 200.1000, L200.0010 ####ML - XOUCXKADDL121 [place] [address] SEGS 2 % Low 45-73 [facility] Comment on above: Performed By: #### L 200.1000, L200.0010 ####ML - PNHRZSVJVZ[address] [facility] [place] [address] Normal [facility] Comment on above: Performed By: #### L 200.1000, L200.0010 ####ML - FJTKAQMSAE[address] [place] [address] MTP/CREA RATIOon 12-29-2022 MTP/CREAT RATIO 2.31 RATIO Normal [facility] Comment on above: Result Comment: NORM AL RATIO IS <0.2 Performed By: #### L 100.8555 ####ML - OKLQBGFIPV654 [place] [address] Protein (U) [Mass/Vol] 228.0 mg/dL High 0-15 [facility] Comment on above: Performed By: #### L 100.0779 ####ML - JAEUNRCCLJ278 [place] [address] URINE CREATININ 98.5 mg/dL Normal [facility] Comment on above: Result Comment: NO R EFERENCE RANGES ESTABLISHED. Performed By: #### L 100.0779 ####ML - DEXFUPHLMU453 [place] [address] PTHon 12-29-2022 PTH 138.5 pg/mL High 15-65 [facility] Comment on above: Performed By: #### L 304.0135 ####ML - CQYDLXINOU358 [place] [address] RENALon 12-29-2022 Albumin [Mass/Vol] 3.3 g/dL Low 3.5-5.2 [facility] Comment on above: Performed By: #### L 304.0240, L100.0390, L100.0020 ####ML - DWYCLAKSUT569 [place] [address] Anion gap [Moles/Vol] 16.1 mmol/L Normal 15-22 [facility] Comment on above: Performed By: #### L 304.0240, L100.0390, L100.0020 ####ML - ELZCODFOGB094 [place] [address] Calcium [Mass/Vol] 8.8 mg/dL Normal 8.8-10.2 [facility] Comment on above: Performed By: #### L 304.0240, L100.0390, L100.0020 ####ML - PXFHJJKAJV128 [place] [address] Chloride [Moles/Vol] 103 mmol/L Normal 98-107 [facility] Comment on above: Performed By: #### L 304.0240, L100.0390, L100.0020 ####ML - QLUDLQWUIQ075 [place] [address] CO2 [Moles/Vol] 22 mmol/L Normal 22-29 [facility] Comment on above: Performed By: #### L 304.0240, L100.0390, L100.0020 #### - JUTYAESWVH151 [place] [address] Creatinine [Mass/Vol] 2.93 mg/dL High 0.70-1.20 [facility] Comment on above: Performed By: #### L 304.0240, L100.0390, L100.0020 #### - [facility] [place] [address] eGFR if AFR TIFFANY 26 [facility] Comment on above: Result Comment: eGFR >= 60 Indicates normal kidney function. * eGFR IS AN ESTIMATE * (AFR TIFFANY = ) (non-AFR AM = NON-) MDRD calculation used in the eGFR should not be used to dose medications. For further limitations of the eGFR please refer to the Physician Website or the National Kidney Disease Education Program website (www.nkdep.nih.gov). Performed By: #### L 304.0240, L100.0390, L100.0020 ####[facility] GZUTJLVMOD294 [place] [address] eGFR nonAFR Tiffany 21 [facility] Comment on above: Performed By: #### L 304.0240, L100.0390, L100.0020 ####[facility] ADFMTHGABN426 [place] [address] Glucose [Mass/Vol] 171 mg/dL High 82-115 [facility] Comment on above: Performed By: #### L 304.0240, L100.0390, L100.0020 #### - VRECFHSDWD244 [place] [address] Phosphate [Mass/Vol] 3.5 mg/dL Normal 2.5-4.5 [facility] Comment on above: Performed By: #### L 304.0240, L100.0390, L100.0020 #### - UJMOFTWYWK837 [place] [address] Potassium [Moles/Vol] 4.1 mmol/L Normal 3.5-5.0 [facility] Comment on above: Performed By: #### L 304.0240, L100.0390, L100.0020 ####ML [facility] DMMFBOWGEF[address] [place] [address] Sodium [Moles/Vol] 137 mmol/L Normal 135-145 [facility] Comment on above: Performed By: #### L 304.0240, L100.0390, L100.0020 ####[facility] NOVJ[address]RBQY[address] [place] [address] Urea nitrogen [Mass/Vol] 61 mg/dL High 8-23 [facility] Comment on above: Performed By: #### L 304.0240, L100.0390, L100.0020 ####[address] [address] CBCon 11-28-2022 BASO# 0.10 x10(3) Normal 0.00-0.10 [facility] Comment on above: Performed By: #### L 200.0010 ####[address] [address] Basophils/100 WBC (Bld) 1.2 % High 0.0-1.0 [facility] Comment on above: Performed By: #### L 200.0010 ####[facility] ZCYOJZASLC[address] [place] [address] 227[address] EOS# 0.00 x10(3) Normal 0.00-0.54 [facility] Comment on above: Performed By: #### L 200.0010 ####[address] [address] Eosinophils/100 WBC (Bld) 0.5 % Normal 0.5-4.9 [facility] Comment on above: Performed By: #### L 200.0010 ####[address] [address] Erythrocyte distribution width (RBC) [Ratio] 15.2 % Normal 12.7-15.3 [facility] Comment on above: Performed By: #### L 200.0010 ####ML - [facility] [place] [address] Hematocrit (Bld) [Volume fraction] 31.4 % Low 42.0-51.0 [facility] Comment on above: Performed By: #### L 200.0010 ####ML - [address] [address] Hemoglobin (Bld) [Mass/Vol] 10.4 g/dL Low 14.0-17.2 [facility] Comment on above: Performed By: #### L 200.0010 ####ML [address] [address] LYMPH# 1.30 x10(3) Normal 1.00-3.50 [facility] Comment on above: Performed By: #### L 200.0010 ####ML [address] [address] Lymphocytes/100 WBC (Bld) 22.6 % Normal 16.0-48.0 [facility] Comment on above: Performed By: #### L 200.0010 ####ML - [address] [address] MCH (RBC) [Entitic mass] 29.3 pg Normal 28.8-32.2 [facility] Comment on above: Performed By: #### L 200.0010 ####ML - LPYDCNVGXG[address] [place] [address] MCHC (RBC) [Mass/Vol] 33.0 g/dL Normal 33.0-36.0 [facility] Comment on above: Performed By: #### L 200.0010 ####ML [address] [address] MCV (RBC) [Entitic vol] 88.7 fL Normal 80.0-94.0 [facility] Comment on above: Performed By: #### L 200.0010 ####ML [address] [address] MONO# 0.30 x10(3) Normal 0.30-0.80 [facility] Comment on above: Performed By: #### L 200.0010 ####[address] [address] Monocytes/100 WBC (Bld) 5.8 % Normal 4.3-11.2 [facility] Comment on above: Performed By: #### L 200.0010 ####ML [address] [address] NEUT# 4.10 x10(3) Normal 1.40-6.50 [facility] Comment on above: Performed By: #### L 200.0010 ####ML [address] [address] Neutrophils/100 WBC (Bld) 69.9 % Normal 45.0-73.0 [facility] Comment on above: Performed By: #### L 200.0010 ####ML [address] [address] Platelet mean volume (Bld) [Entitic vol] 8.0 fL Normal 7.4-9.2 [facility] Comment on above: Performed By: #### L 200.0010 ####ML [address] [address] PLT 283 X10(3) Normal 150-450 [facility] Comment on above: Performed By: #### L 200.0010 ####ML [address] [address] RBC 3.54 x10(6) Low 4.80-5.50 [facility] Comment on above: Performed By: #### L 200.0010 ####ML [facility] IKPOXOURUE[address] [place] [address] WBC 5.9 x10(3) Normal 4.5-10.0 [facility] Comment on above: Performed By: #### L 200.0010 ####ML [address] [address] RENALon 11-28-2022 Albumin [Mass/Vol] 3.4 g/dL Low 3.5-5.2 [facility] Comment on above: Performed By: #### L 100.0020 ####[facility] WEKBFKYYDF992 [place] [address] Anion gap [Moles/Vol] 17.2 mmol/L Normal 15-22 [facility] Comment on above: Performed By: #### L 100.0020 ####ML [facility] ZLVSIFRDTT[address] [place] [address] Calcium [Mass/Vol] 8.9 mg/dL Normal 8.8-10.2 [facility] Comment on above: Performed By: #### L 100.0020 ####ML [facility] [place] [address] Chloride [Moles/Vol] 100 mmol/L Normal 98-107 [facility] Comment on above: Performed By: #### L 100.0020 ####ML - [address] [address] CO2 [Moles/Vol] 23 mmol/L Normal 22-29 [facility] Comment on above: Performed By: #### L 100.0020 ####ML - LLBRWOWPBH[address] [place] [address] Creatinine [Mass/Vol] 3.34 mg/dL High 0.70-1.20 [facility] Comment on above: Performed By: #### L 100.0020 ####ML [address] [address] eGFR if AFR TIFFANY 22 Normal [facility] Comment on above: Result Comment: eGFR >= 60 Indicates normal kidney function. * eGFR IS AN ESTIMATE * (AFR TIFFANY = ) (non-AFR AM = NON-) MDRD calculation used in the eGFR should not be used to dose medications. For further limitations of the eGFR please refer to the Physician Website or the National Kidney Disease Education Program website (www.nkdep.nih.gov). Performed By: #### L 100.0020 ####ML - VEGWWYVHRV394 [place] [address] eGFR nonAFR Tiffany 18 Normal [facility] Comment on above: Performed By: #### L 100.0020 ####ML - CUFMIGTAYC514 [place] [address] Glucose [Mass/Vol] 267 mg/dL High 82-115 [facility] Comment on above: Performed By: #### L 100.0020 ####ML - KLXUMYOTVK197 [place] [address] Phosphate [Mass/Vol] 5.1 mg/dL High 2.5-4.5 [facility] Comment on above: Performed By: #### L 100.0020 ####ML - NRAKGVUCRD751 [place] [address] Potassium [Moles/Vol] 4.2 mmol/L Normal 3.5-5.0 [facility] Comment on above: Performed By: #### L 100.0020 ####ML - KULOLNHABQ560 [place] [address] Sodium [Moles/Vol] 136 mmol/L Normal 135-145 [facility] Comment on above: Performed By: #### L 100.0020 ####ML - CBERLVVKDC917 [place] [address] Urea nitrogen [Mass/Vol] 67 mg/dL High 8-23 [facility] Comment on above: Performed By: #### L 100.0020 ####ML - ONETUOASEH[address] [place] [address] ANCAon 11-16-2022 ATYPICAL PANCA <1:20 Normal Neg:<1:20 [facility] Comment on above: Result Comment: The atypical pANCA pattern has been observed in asignificant percentage of patients with ulcerative colitis,primary sclerosing cholangitis and autoimmune hepatitis.Performed at: - [facility] [id number] Director: Jonatan Swan PhD, Phone: [phone] Performed By: #### L 801.2782, L800.0350, L800.0330, L800.2912 ####[place] [address] C-ANCA 1:80 High Neg:<1:20 [facility] Comment on above: Performed By: #### L 801.2782, L800.0350, L800.0330, L800.2912 ####[place] [address] P-ANCA <1:20 Normal Neg:<1:20 [facility] Comment on above: Result Comment: The presence of positive fluorescence exhibiting P-ANCA orC-ANCA patterns alone is not specific for the diagnosis ofWegener's Granulomatosis (WG) or microscopic polyangiitis.Decisions about treatment should not be based solely onANCA IFA results. The International ANCA Group Consensusrecommends follow up testing of positive sera with both GA-3 and MPO-ANCA enzyme immunoassays. As many as 5% serumsamples are positive only by EIA. Ref. AM J Clin Btkvsp1022;111:507-513. Performed By: #### L 801.2782, L800.0350, L800.0330, L800.2912 ####[place] [address] C3on 11-16-2022 C3 162 mg/dL Normal 82-167 [facility] Comment on above: Result Comment: Perf ormed at: CB - [facility] [address] [id number] Director: Jonatan Swan PhD, Phone: [phone] Performed By: #### L 801.2782, L800.0350, L800.0330, L800.2912 ####[place] [address] C4on 11-16-2022 C4 36 mg/dL Normal 12-38 [facility] Comment on above: Performed By: #### L 801.2782, L800.0350, L800.0330, L800.2912 ####[place] [address] SPEPon 11-16-2022 Albumin [Mass/Vol] 2.8 g/dL Low 2.9-4.4 [facility] Comment on above: Performed By: #### L 801.2782, L800.0350, L800.0330, L800.2912 ####[place] [address] Albumin/Globulin [Mass ratio] 0.8 {ratio} Normal 0.7-1.7 [facility] Comment on above: Performed By: #### L 801.2782, L800.0350, L800.0330, L800.2912 ####[place] [address] DKRJG-9-AUCGDXP 0.4 g/dL Normal 0.0-0.4 [facility] Comment on above: Performed By: #### L 801.2782, L800.0350, L800.0330, L800.2912 ####[place] [address] LEOUA-9-CPXEJAV 0.9 g/dL Normal 0.4-1.0 [facility] Comment on above: Performed By: #### L 801.2782, L800.0350, L800.0330, L800.2912 ####[place] [address] BETA GLOBULIN 1.0 g/dL Normal 0.7-1.3 [facility] Comment on above: Performed By: #### L 801.2782, L800.0350, L800.0330, L800.2912 ####[place] [address] GAMMA GLOBULIN 1.2 g/dL Normal 0.4-1.8 [facility] Comment on above: Performed By: #### L 801.2782, L800.0350, L800.0330, L800.2912 ####[place] [address] Globulin (S) [Mass/Vol] 3.6 g/dL Normal 2.2-3.9 [facility] Comment on above: Performed By: #### L 801.2782, L800.0350, L800.0330, L800.2912 ####[place] [address] INTERPRETATION Normal [facility] Comment on above: Result Comment: The SPE pattern appears unremarkable. Evidence ofmonoclonal protein is not apparent.Performed at: [address] [place], [place] [id number] Director: Jonatan Swan PhD, Phone: [phone] Performed By: #### L 801.2782, L800.0350, L800.0330, L800.2912 ####[place] [address] M-SPIKE Not Observed Normal Not Observed [facility] Comment on above: Performed By: #### L 801.2782, L800.0350, L800.0330, L800.2912 ####[place] [address] Please Note: Normal [facility] Comment on above: Result Comment: Prot ein electrophoresis scan will follow via computer,mail, or oil pipeline dispatcher delivery.Performed at: [address] [id number] Director: Jonatan Swan PhD, Phone: [phone] Performed By: #### L 801.2782, L800.0350, L800.0330, L800.2912 ####[place] [address] Protein [Mass/Vol] 6.4 g/dL Normal 6.0-8.5 [facility] Comment on above: Performed By: #### L 801.2782, L800.0350, L800.0330, L800.2912 ####[place] [address] PROGRESS NOTEon 11-15-2022 PROGRESS NOTE Normal [facility] BMPon 11-14-2022 Anion gap [Moles/Vol] 20.7 mmol/L Normal 15-22 [facility] Comment on above: Performed By: #### L 100.0010 ####ML - [facility] ISLOKPRMUE996 [place] [address] Calcium [Mass/Vol] 8.9 mg/dL Normal 8.8-10.2 [facility] Comment on above: Performed By: #### L 100.0010 ####ML - [facility] YULQZAZYPQ054 [place] [address] Chloride [Moles/Vol] 96 mmol/L Low 98-107 [facility] Comment on above: Performed By: #### L 100.0010 ####ML - ZPPSXVEEDU234 [place] [address] CO2 [Moles/Vol] 29 mmol/L Normal 22-29 [facility] Comment on above: Performed By: #### L 100.0010 ####ML - [address] [address] Creatinine [Mass/Vol] 3.10 mg/dL High 0.70-1.20 [facility] Comment on above: Performed By: #### L 100.0010 ####ML [address] [address] eGFR if AFR TIFFANY 24 [facility] Comment on above: Result Comment: eGFR >= 60 Indicates normal kidney function. * eGFR IS AN ESTIMATE * (AFR TIFFANY = ) (non-AFR AM = NON-) MDRD calculation used in the eGFR should not be used to dose medications. For further limitations of the eGFR please refer to the Physician Website or the National Kidney Disease Education Program website (www.nkdep.nih.gov). Performed By: #### L 100.0010 ####ML - [address] [address] eGFR nonAFR Tiffany 20 [facility] Comment on above: Performed By: #### L 100.0010 ####ML - [facility] [place] [address] Glucose [Mass/Vol] 212 mg/dL High 82-115 [facility] Comment on above: Performed By: #### L 100.0010 ####ML [address] [address] Potassium [Moles/Vol] 3.7 mmol/L Normal 3.5-5.0 [facility] Comment on above: Performed By: #### L 100.0010 ####[address] [address] Sodium [Moles/Vol] 142 mmol/L Normal 135-145 [facility] Comment on above: Performed By: #### L 100.0010 ####ML - [facility] FIQFNSCEKH328 [place] [address] Urea nitrogen [Mass/Vol] 82 mg/dL High 8-23 [facility] Comment on above: Performed By: #### L 100.0010 ####ML - AFFSDOUDGX926 [place] [address] Basic metabolic 2000 panelon 11-14-2022 Anion gap [Moles/Vol] 20.7 mmol/L 15 - 2 2 mmol/L [facility] Calcium [Mass/Vol] 8.9 mg/dL 8.8 - 10. 2 mg/dL [facility] Chloride [Moles/Vol] 96 mmol/L Low 98 - 10 7 mmol/L [facility] CO2 [Moles/Vol] 29 mmol/L 22 - 29 mmol/L [facility] Creatinine [Mass/Vol] 3.10 mg/dL High 0.70 - 1.20 mg/dL [facility] eGFR-All Other Races 20 [facility] GFR/1.73 sq M.predicted among blacks MDRD (S/P/Bld) [Vol rate/Area] 24 mL/min/{1.73_m2} [facility] Glucose [Mass/Vol] 212 mg/dL High 82 - 115 mg/dL [facility] Potassium [Moles/Vol] 3.7 mmol/L 3.5 - 5.0 mmol/L [facility] Sodium [Moles/Vol] 142 mmol/L 135 - 145 mmol/L [facility] Urea nitrogen [Mass/Vol] 82 mg/dL High 8 - 23 mg/dL [facility] CBCon 11-14-2022 BASO# 0.10 x10(3) Normal 0.00-0.10 [facility] Comment on above: Performed By: #### L 200.0010 ####ML - [facility] WLUNZYVWUM794 [place] [address] Basophils/100 WBC (Bld) 1.0 % Normal 0.0-1.0 [facility] Comment on above: Performed By: #### L 200.0010 ####ML [facility] YDQHUMUDXQ266 [place] [address] EOS# 0.50 x10(3) Normal 0.00-0.54 [facility] Comment on above: Performed By: #### L 200.0010 ####ML [facility] IVRHOCELZU130 [place] [address] Eosinophils/100 WBC (Bld) 4.3 % Normal 0.5-4.9 [facility] Comment on above: Performed By: #### L 200.0010 ####ML [facility] [address] [place] [address] Erythrocyte distribution width (RBC) [Ratio] 14.7 % Normal 12.7-15.3 [facility] Comment on above: Performed By: #### L 200.0010 ####[facility] VPQWZIIUDU[address] [place] [address] Hematocrit (Bld) [Volume fraction] 32.2 % Low 42.0-51.0 [facility] Comment on above: Performed By: #### L 200.0010 ####ML [facility] LRWXFCLDAY[address] [place] [address] Hemoglobin (Bld) [Mass/Vol] 10.9 g/dL Low 14.0-17.2 [facility] Comment on above: Performed By: #### L 200.0010 ####[facility] [address]SIWTSBEVD[address] [place] [address] LYMPH# 1.40 x10(3) Normal 1.00-3.50 [facility] Comment on above: Performed By: #### L 200.0010 ####ML [facility] XKIRGRFXKK[address] [place] [address] Lymphocytes/100 WBC (Bld) 12.2 % Low 16.0-48.0 [facility] Comment on above: Performed By: #### L 200.0010 ####ML [facility] ZBXQFRJNMB[address] [place] [address] MCH (RBC) [Entitic mass] 29.6 pg Normal 28.8-32.2 [facility] Comment on above: Performed By: #### L 200.0010 ####ML [facility] AUTIGYIVBX[address] [place] [address] MCHC (RBC) [Mass/Vol] 33.9 g/dL Normal 33.0-36.0 [facility] Comment on above: Performed By: #### L 200.0010 ####ML [facility] IKLINSBFGT[address] [place] [address] MCV (RBC) [Entitic vol] 87.5 fL Normal 80.0-94.0 [facility] Comment on above: Performed By: #### L 200.0010 ####ML [facility] NSQU[address]UMDW[address] [place] [address] MONO# 0.80 x10(3) Normal 0.30-0.80 [facility] Comment on above: Performed By: #### L 200.0010 ####ML - [address] [address] Monocytes/100 WBC (Bld) 7.3 % Normal 4.3-11.2 [facility] Comment on above: Performed By: #### L 200.0010 ####ML [facility] INIQMOUGTR[address] [place] [address] NEUT# 8.30 x10(3) High 1.40-6.50 [facility] Comment on above: Performed By: #### L 200.0010 ####ML [address] [address] Neutrophils/100 WBC (Bld) 75.2 % High 45.0-73.0 [facility] Comment on above: Performed By: #### L 200.0010 ####ML [facility] [id number] [place] [id number] Platelet mean volume (Bld) [Entitic vol] 8.7 fL Normal 7.4-9.2 [facility] Comment on above: Performed By: #### L 200.0010 ####ML [address] [address] PLT 284 X10(3) Abnormal 150-450 [facility] Comment on above: Result Comment: De lta check (#) indicates a significant change in thislaboratory value. It needs clinical correlation withpatient situation or treatment. If the change in this testdoes not match your clinical situation or therapy, you maywish to re-test to verify the result. Performed By: #### L 200.0010 ####ML - [id number] [place] [address] RBC 3.68 x10(6) Low 4.80-5.50 [facility] Comment on above: Performed By: #### L 200.0010 ####ML - [id number] [place] [address] WBC 11.1 x10(3) High 4.5-10.0 [facility] Comment on above: Performed By: #### L 200.0010 ####ML - [id number] [place] [address] CBC W Auto Differential pane l (Bld)on 11-14-2022 BASO ABS 0.10 x10(3) 0.00 - 0.10 x10(3) [facility] Basophils/100 WBC (Bld) 1.0 % 0.0 - 1.0 % [facility] EOS ABS 0.50 x10(3) 0.00 - 0.54 x10(3) [facility] Eosinophils/100 WBC (Bld) 4.3 % 0.5 - 4.9 % [facility] Erythrocyte distribution width (RBC) [Ratio] 14.7 % 12.7 - 15.3 % [facility] Hematocrit (Bld) [Volume fraction] 32.2 % Low 42.0 - 51.0 % [facility] Hemoglobin (Bld) [Mass/Vol] 10.9 g/dL Low 14.0 - 17.2 g/dL [facility] LYMPH ABS 1.40 x10(3) 1.00 - 3.50 x10(3) [facility] Lymphocytes/100 WBC (Bld) 12.2 % Low 16.0 - 48.0 % [facility] MCH (RBC) [Entitic mass] 29.6 pg 28.8 - 32.2 pg [facility] MCHC (RBC) [Mass/Vol] 33.9 g/dL 33.0 - 36.0 g/dL [facility] MCV (RBC) [Entitic vol] 87.5 fL 80.0 - 94.0 fl [facility] MONO ABS 0.80 x10(3) 0.30 - 0.80 x10(3) [facility] Monocytes/100 WBC (Bld) 7.3 % 4.3 - 11.2 % [facility] Neutrophil Ab 8.30 x10(3) High 1.40 - 6.50 x10(3) [facility] Neutrophils/100 WBC (Bld) 75.2 % High 45.0 - 73.0 % [facility] Platelet Count 284 X10(3) 150 - 450 X10(3) [facility] Platelet mean volume (Bld) [Entitic vol] 8.7 fL 7.4 - 9.2 fl [facility] RBC 3.68 x10(6) Low 4.80 - 5.50 x10(6) [facility] WBC 11.1 x10(3) High 4.5 - 10.0 x10(3) [facility] GLUCOSE FSon 11-14-2022 Glucose [Mass/Vol] 311 mg/dL High 70-110 [facility] Comment on above: Performed By: #### L 100.0070 ####[facility] IDFL[address]ZBN[address] [place] [address] Glucose post fast [Mass/Vol] on 11-14-2022 Glucose [Mass/Vol] 311 mg/dL High 70 - 110 mg/dL [facility] HEPATIC PANELon 11-14-2022 A:G RATIO 0.94 Low 1.1-2.5 [facility] Comment on above: Performed By: #### L 100.0030 ####[facility] [id number] [place] [address] Albumin [Mass/Vol] 3.3 g/dL Low 3.5-5.2 [facility] Comment on above: Performed By: #### L 100.0030 ####[facility] FSTUHCHGQD357 [place] [address] ALK. PHOS 103 U/L Normal 40-130 [facility] Comment on above: Performed By: #### L 100.0030 ####[facility] RLCFTCPWLW026 [place] [address] ALT [Catalytic activity/Vol] 16 U/L Normal 5-41 [facility] Comment on above: Result Comment: SPEC IMEN SHOWS HEMOLYSIS.IF RESULTS DO NOT CLINICALLYCORRELATE, SUGGEST RECOLLECTION. Performed By: #### L 100.0030 ####ML [facility] [id number] [place] [address] AST [Catalytic activity/Vol] 29 U/L Normal 5-40 [facility] Comment on above: Result Comment: SPEC IMEN SHOWS HEMOLYSIS.IF RESULTS DO NOT CLINICALLYCORRELATE, SUGGEST RECOLLECTION. Performed By: #### L 100.0030 ####ML - [id number] [place] [address] Bilirubin [Mass/Vol] 0.4 mg/dL Normal 0.2-1.2 [facility] Comment on above: Performed By: #### L 100.0030 ####ML [facility] DL[address]JAZUB[address] [place] [address] DIRECT BILIRUBI <0.2 Normal 0.0-0.3 [facility] Comment on above: Performed By: #### L 100.0030 ####ML - VVCFGGKAIJ[address] [place] [address] Globulin (S) [Mass/Vol] 3.5 g/dL Normal 1.5-4.5 [facility] Comment on above: Performed By: #### L 100.0030 ####ML - NZWLRQZNUB[address] [place] [address] Protein [Mass/Vol] 6.8 g/dL Normal 6.4-8.3 [facility] Comment on above: Performed By: #### L 100.0030 ####ML - AEQQFJVTHC[address] [place] [address] Hepatic function 2000 [facility] n 11-14-2022 Albumin [Mass/Vol] 3.3 g/dL Low 3.5 - 5.2 g/dL [facility] Albumin/Globulin [Mass ratio] 0.94 {ratio} Low 1.1 - 2.5 [facility] ALP [Catalytic activity/Vol] 103 U/L 40 - 130 U/L [facility] ALT [Catalytic activity/Vol] 16 U/L 5 - 41 U/L [facility] AST [Catalytic activity/Vol] 29 U/L 5 - 40 U/L [facility] Bilirubin [Mass/Vol] 0.4 mg/dL 0.2 - 1 .2 mg/dL [facility] Direct Bilirubin <0.2 0.0 - 0.3 mg/dL [facility] Globulin (S) [Mass/Vol] 3.5 g/dL 1.5 - 4.5 g/dL [facility] Protein [Mass/Vol] 6.8 g/dL 6.4 - 8.3 g/dL [facility] BMPon 11-13-2022 Anion gap [Moles/Vol] 18.3 mmol/L Normal 15-22 [facility] Comment on above: Performed By: #### L 100.0010 ####[facility] [place] [address] Calcium [Mass/Vol] 8.9 mg/dL Normal 8.8-10.2 [facility] Comment on above: Performed By: #### L 100.0010 ####[facility] NVCLQZ[address]UC[address] [place] [address] Chloride [Moles/Vol] 94 mmol/L Low 98-107 [facility] Comment on above: Performed By: #### L 100.0010 ####[facility] SUCPECVQDR[address] [place] [address] CO2 [Moles/Vol] 29 mmol/L Normal 22-29 [facility] Comment on above: Performed By: #### L 100.0010 ####[facility] JBWCJBFKEZ[address] [place] [address] Creatinine [Mass/Vol] 3.37 mg/dL High 0.70-1.20 [facility] Comment on above: Performed By: #### L 100.0010 ####[address] [address] eGFR if AFR TIFFANY 22 Normal [facility] Comment on above: Result Comment: eGFR >= 60 Indicates normal kidney function. * eGFR IS AN ESTIMATE * (AFR TIFFANY = ) (non-AFR AM = NON-) MDRD calculation used in the eGFR should not be used to dose medications. For further limitations of the eGFR please refer to the Physician Website or the National Kidney Disease Education Program website (www.nkdep.nih.gov). Performed By: #### L 100.0010 ####[facility] DEW[address] [place] [address] eGFR nonAFR Tiffany 18 Normal [facility] Comment on above: Performed By: #### L 100.0010 ####[address] [address] Glucose [Mass/Vol] 196 mg/dL High 82-115 [facility] Comment on above: Performed By: #### L 100.0010 ####[address] [address] Potassium [Moles/Vol] 3.3 mmol/L Low 3.5-5.0 [facility] Comment on above: Performed By: #### L 100.0010 ####[address] [address] Sodium [Moles/Vol] 138 mmol/L Normal 135-145 [facility] Comment on above: Performed By: #### L 100.0010 ####[address] [address] Urea nitrogen [Mass/Vol] 77 mg/dL High 8-23 [facility] Comment on above: Performed By: #### L 100.0010 ####[address] [address] Basic metabolic 2000 panelon 11-13-2022 Anion gap [Moles/Vol] 18.3 mmol/L 15 - 2 2 mmol/L [facility] Calcium [Mass/Vol] 8.9 mg/dL 8.8 - 10. 2 mg/dL [facility] Chloride [Moles/Vol] 94 mmol/L Low 98 - 10 7 mmol/L [facility] CO2 [Moles/Vol] 29 mmol/L 22 - 29 mmol/L [facility] Creatinine [Mass/Vol] 3.37 mg/dL High 0.70 - 1.20 mg/dL [facility] eGFR-All Other Races [facility] GFR/1.73 sq M.predicted among blacks MDRD (S/P/Bld) [Vol rate/Area] 22 mL/min/{1.73_m2} [facility] Glucose [Mass/Vol] 196 mg/dL High 82 - 115 mg/dL [facility] Potassium [Moles/Vol] 3.3 mmol/L Low 3.5 - 5.0 mmol/L [facility] Sodium [Moles/Vol] 138 mmol/L 135 - 145 mmol/L [facility] Urea nitrogen [Mass/Vol] 77 mg/dL High 8 - 23 mg/dL [facility] CBCon 11-13-2022 BASO# 0.00 x10(3) Normal 0.00-0.10 [facility] Comment on above: Performed By: #### L 200.0010 ####[address] [address] Basophils/100 WBC (Bld) 0.4 % Normal 0.0-1.0 [facility] Comment on above: Performed By: #### L 200.0010 ####[address] [address] EOS# 0.30 x10(3) Normal 0.00-0.54 [facility] Comment on above: Performed By: #### L 200.0010 ####[address] [address] Eosinophils/100 WBC (Bld) 3.3 % Normal 0.5-4.9 [facility] Comment on above: Performed By: #### L 200.0010 ####[address] [address] Erythrocyte distribution width (RBC) [Ratio] 14.7 % Normal 12.7-15.3 [facility] Comment on above: Performed By: #### L 200.0010 ####[address] [address] Hematocrit (Bld) [Volume fraction] 30.8 % Low 42.0-51.0 [facility] Comment on above: Performed By: #### L 200.0010 ####[address] [address] Hemoglobin (Bld) [Mass/Vol] 10.0 g/dL Low 14.0-17.2 [facility] Comment on above: Performed By: #### L 200.0010 ####ML [address] [address] LYMPH# 1.00 x10(3) Normal 1.00-3.50 [facility] Comment on above: Performed By: #### L 200.0010 ####[address] [address] Lymphocytes/100 WBC (Bld) 11.8 % Low 16.0-48.0 [facility] Comment on above: Performed By: #### L 200.0010 ####[address] [address] MCH (RBC) [Entitic mass] 29.0 pg Normal 28.8-32.2 [facility] Comment on above: Performed By: #### L 200.0010 ####[address] [address] MCHC (RBC) [Mass/Vol] 32.6 g/dL Low 33.0-36.0 [facility] Comment on above: Performed By: #### L 200.0010 ####ML [address] [address] MCV (RBC) [Entitic vol] 89.1 fL Normal 80.0-94.0 [facility] Comment on above: Performed By: #### L 200.0010 ####[address] [address] MONO# 0.80 x10(3) Normal 0.30-0.80 [facility] Comment on above: Performed By: #### L 200.0010 ####ML [address] [address] Monocytes/100 WBC (Bld) 9.4 % Normal 4.3-11.2 [facility] Comment on above: Performed By: #### L 200.0010 ####[address] [address] NEUT# 6.40 x10(3) Normal 1.40-6.50 [facility] Comment on above: Performed By: #### L 200.0010 ####ML [address] [address] Neutrophils/100 WBC (Bld) 75.1 % High 45.0-73.0 [facility] Comment on above: Performed By: #### L 200.0010 ####ML - [address] [address] Platelet mean volume (Bld) [Entitic vol] 8.1 fL Normal 7.4-9.2 [facility] Comment on above: Performed By: #### L 200.0010 ####ML [address] [address] PLT 200 X10(3) Normal 150-450 [facility] Comment on above: Performed By: #### L 200.0010 ####ML [address] [address] RBC 3.46 x10(6) Low 4.80-5.50 [facility] Comment on above: Performed By: #### L 200.0010 ####ML [address] [address] WBC 8.6 x10(3) Normal 4.5-10.0 [facility] Comment on above: Performed By: #### L 200.0010 ####ML [facility] K[address] [place] [address] CBC W Auto Differential pane l (Bld)on 11-13-2022 BASO ABS 0.00 x10(3) 0.00 - 0.10 x10(3) [facility] Basophils/100 WBC (Bld) 0.4 % 0.0 - 1.0 % [facility] EOS ABS 0.30 x10(3) 0.00 - 0.54 x10(3) [facility] Eosinophils/100 WBC (Bld) 3.3 % 0.5 - 4.9 % [facility] Erythrocyte distribution width (RBC) [Ratio] 14.7 % 12.7 - 15.3 % [facility] Hematocrit (Bld) [Volume fraction] 30.8 % Low 42.0 - 51.0 % [facility] Hemoglobin (Bld) [Mass/Vol] 10.0 g/dL Low 14.0 - 17.2 g/dL [facility] LYMPH ABS 1.00 x10(3) 1.00 - 3.50 x10(3) [facility] Lymphocytes/100 WBC (Bld) 11.8 % Low 16.0 - 48.0 % [facility] MCH (RBC) [Entitic mass] 29.0 pg 28.8 - 32.2 pg [facility] MCHC (RBC) [Mass/Vol] 32.6 g/dL Low 33.0 - 36.0 g/dL [facility] MCV (RBC) [Entitic vol] 89.1 fL 80.0 - 94.0 fl [facility] MONO ABS 0.80 x10(3) 0.30 - 0.80 x10(3) [facility] Monocytes/100 WBC (Bld) 9.4 % 4.3 - 11.2 % [facility] Neutrophil Ab 6.40 x10(3) 1.40 - 6.50 x10(3) [facility] Neutrophils/100 WBC (Bld) 75.1 % High 45.0 - 73.0 % [facility] Platelet Count 200 X10(3) 150 - 450 X10(3) [facility] Platelet mean volume (Bld) [Entitic vol] 8.1 fL 7.4 - 9.2 fl [facility] RBC 3.46 x10(6) Low 4.80 - 5.50 x10(6) [facility] WBC 8.6 x10(3) 4.5 - 10.0 x10(3) [facility] GLUCOSE FSon 11-13-2022 Glucose [Mass/Vol] 190 mg/dL High 70-110 [facility] Comment on above: Performed By: #### L 100.0070 ####ML - [facility] [id number] [place] [address] Glucose [Mass/Vol] 205 mg/dL High 70-110 [facility] Comment on above: Performed By: #### L 100.0070 ####[facility] UKIGYJVZXN471 [place] [address] Glucose [Mass/Vol] 284 mg/dL High 70-110 [facility] Comment on above: Performed By: #### L 100.0070 ####[facility] XVCYAB[address]CR[address] [place] [address] Glucose [Mass/Vol] 237 mg/dL High 70-110 [facility] Comment on above: Performed By: #### L 100.0070 ####[address] [address] Glucose post fast [Mass/Vol] on 11-13-2022 Glucose [Mass/Vol] 190 mg/dL High 70 - 110 mg/dL [facility] Glucose [Mass/Vol] 205 mg/dL High 70 - 110 mg/dL [facility] Glucose [Mass/Vol] 284 mg/dL High 70 - 110 mg/dL [facility] Glucose [Mass/Vol] 237 mg/dL High 70 - 110 mg/dL [facility] HEPATIC PANELon 11-13-2022 A:G RATIO 1.42 Normal 1.1-2.5 [facility] Comment on above: Performed By: #### L 100.0030 ####[facility] SYAECH[address] [place] [address] Albumin [Mass/Vol] 3.7 g/dL Normal 3.5-5.2 [facility] Comment on above: Performed By: #### L 100.0030 ####ML [facility] MX[address] [place] [address] ALK. PHOS 109 U/L Normal 40-130 [facility] Comment on above: Performed By: #### L 100.0030 ####[facility] X[address] [place] [address] ALT [Catalytic activity/Vol] 14 U/L Normal 5-41 [facility] Comment on above: Performed By: #### L 100.0030 ####[facility] RRHNE[address]YCP[address] [place] [address] AST [Catalytic activity/Vol] 22 U/L Normal 5-40 [facility] Comment on above: Performed By: #### L 100.0030 ####ML - [facility] [id number] [place] [address] Bilirubin [Mass/Vol] 0.4 mg/dL Normal 0.2-1.2 [facility] Comment on above: Performed By: #### L 100.0030 ####ML - [facility] JLOUUPQGZO[address] [place] [address] DIRECT BILIRUBI <0.2 Normal 0.0-0.3 [facility] Comment on above: Performed By: #### L 100.0030 ####ML - [facility] PJSGRIOLUW798 [place] [address] Globulin (S) [Mass/Vol] 2.6 g/dL Normal 1.5-4.5 [facility] Comment on above: Performed By: #### L 100.0030 ####ML - [facility] IRYIJXPENW730 [place] [address] Protein [Mass/Vol] 6.3 g/dL Low 6.4-8.3 [facility] Comment on above: Performed By: #### L 100.0030 ####ML - [facility] VGGJKTVOBZ678 [place] [address] Hepatic function 2000 panelo n 11-13-2022 Albumin [Mass/Vol] 3.7 g/dL 3.5 - 5.2 g/dL [facility] Albumin/Globulin [Mass ratio] 1.42 {ratio} 1.1 - 2.5 [facility] ALP [Catalytic activity/Vol] 109 U/L 40 - 130 U/L [facility] ALT [Catalytic activity/Vol] 14 U/L 5 - 41 U/L [facility] AST [Catalytic activity/Vol] 22 U/L 5 - 40 U/L [facility] Bilirubin [Mass/Vol] 0.4 mg/dL 0.2 - 1 .2 mg/dL [facility] Direct Bilirubin <0.2 0.0 - 0.3 mg/dL [facility] Globulin (S) [Mass/Vol] 2.6 g/dL 1.5 - 4.5 g/dL [facility] Protein [Mass/Vol] 6.3 g/dL Low 6.4 - 8.3 g/dL [facility] BMPon 11-12-2022 Anion gap [Moles/Vol] 20.7 mmol/L Normal 15-22 [facility] Comment on above: Performed By: #### L 100.0030, L100.0010 ####ML - [id number] [place] [address] Calcium [Mass/Vol] 8.8 mg/dL Normal 8.8-10.2 [facility] Comment on above: Performed By: #### L 100.0030, L100.0010 ####ML - [facility] [place] [address] Chloride [Moles/Vol] 96 mmol/L Low 98-107 [facility] Comment on above: Performed By: #### L 100.0030, L100.0010 ####ML [facility] [address]AC[address]PU[address] [place] [address] CO2 [Moles/Vol] 26 mmol/L Normal 22-29 [facility] Comment on above: Performed By: #### L 100.0030, L100.0010 ####ML - [id number] [place] [address] Creatinine [Mass/Vol] 3.50 mg/dL High 0.70-1.20 [facility] Comment on above: Performed By: #### L 100.0030, L100.0010 ####[address] [address] eGFR if AFR TIFFANY 21 Normal [facility] Comment on above: Result Comment: eGFR >= 60 Indicates normal kidney function. * eGFR IS AN ESTIMATE * (AFR TIFFANY = ) (non-AFR AM = NON-) MDRD calculation used in the eGFR should not be used to dose medications. For further limitations of the eGFR please refer to the Physician Website or the National Kidney Disease Education Program website (www.nkdep.nih.gov). Performed By: #### L 100.0030, L100.0010 ####ML - [id number] [place] [address] eGFR nonAFR Tiffany 17 Normal [facility] Comment on above: Performed By: #### L 100.0030, L100.0010 ####ML - GHLLLSSQEG060 [place] [address] Glucose [Mass/Vol] 159 mg/dL High 82-115 [facility] Comment on above: Performed By: #### L 100.0030, L100.0010 ####ML - [address] [address] Potassium [Moles/Vol] 3.7 mmol/L Normal 3.5-5.0 [facility] Comment on above: Performed By: #### L 100.0030, L100.0010 ####ML - [address] [address] Sodium [Moles/Vol] 139 mmol/L Normal 135-145 [facility] Comment on above: Performed By: #### L 100.0030, L100.0010 ####ML - [address] [address] Urea nitrogen [Mass/Vol] 78 mg/dL High 8-23 [facility] Comment on above: Performed By: #### L 100.0030, L100.0010 ####ML - PPUIRECIHS[address] [place] [address] Basic metabolic 2000 panelon 11-12-2022 eGFR-All Other Races 17 [facility] GFR/1.73 sq M.predicted among blacks MDRD (S/P/Bld) [Vol rate/Area] 21 mL/min/{1.73_m2} [facility] CBCon 11-12-2022 BASO# 0.10 x10(3) Normal 0.00-0.10 [facility] Comment on above: Performed By: #### L 200.0010 ####ML [facility] [place] [address] Basophils/100 WBC (Bld) 0.7 % Normal 0.0-1.0 [facility] Comment on above: Performed By: #### L 200.0010 ####ML [facility] [id number] [place] [address] EOS# 0.30 x10(3) Normal 0.00-0.54 [facility] Comment on above: Performed By: #### L 200.0010 ####ML [facility] [address] [place] [address] Eosinophils/100 WBC (Bld) 4.0 % Normal 0.5-4.9 [facility] Comment on above: Performed By: #### L 200.0010 ####ML [facility] EDCPINTFBB[address] [place] [address] Erythrocyte distribution width (RBC) [Ratio] 14.7 % Normal 12.7-15.3 [facility] Comment on above: Performed By: #### L 200.0010 ####ML [facility] TSYZ[address]QA[address] [place] [address] Hematocrit (Bld) [Volume fraction] 30.0 % Low 42.0-51.0 [facility] Comment on above: Performed By: #### L 200.0010 ####ML [facility] [address] [place] [address] Hemoglobin (Bld) [Mass/Vol] 9.9 g/dL Low 14.0-17.2 [facility] Comment on above: Performed By: #### L 200.0010 ####ML [facility] RRCNCEWVVZ[address] [place] [address] LYMPH# 1.10 x10(3) Normal 1.00-3.50 [facility] Comment on above: Performed By: #### L 200.0010 ####[facility] D[address]PR[address] [place] [address] Lymphocytes/100 WBC (Bld) 14.4 % Low 16.0-48.0 [facility] Comment on above: Performed By: #### L 200.0010 ####ML [facility] MTYKLHCECE[address] [place] [address] MCH (RBC) [Entitic mass] 29.3 pg Normal 28.8-32.2 [facility] Comment on above: Performed By: #### L 200.0010 ####ML [facility] TBR[address]IQU[address] [place] [address] MCHC (RBC) [Mass/Vol] 33.0 g/dL Normal 33.0-36.0 [facility] Comment on above: Performed By: #### L 200.0010 ####ML [address] [address] MCV (RBC) [Entitic vol] 88.7 fL Normal 80.0-94.0 [facility] Comment on above: Performed By: #### L 200.0010 ####ML [address] [address] MONO# 0.90 x10(3) High 0.30-0.80 [facility] Comment on above: Performed By: #### L 200.0010 ####ML [facility] B[address] [place] [address] Monocytes/100 WBC (Bld) 11.1 % Normal 4.3-11.2 [facility] Comment on above: Performed By: #### L 200.0010 ####ML [address] [address] NEUT# 5.40 x10(3) Normal 1.40-6.50 [facility] Comment on above: Performed By: #### L 200.0010 ####ML [address] [address] Neutrophils/100 WBC (Bld) 69.8 % Normal 45.0-73.0 [facility] Comment on above: Performed By: #### L 200.0010 ####ML [address] [address] Platelet mean volume (Bld) [Entitic vol] 8.2 fL Normal 7.4-9.2 [facility] Comment on above: Performed By: #### L 200.0010 ####ML [facility] RTQIZJNRGK970 [place] [address] PLT 209 X10(3) Normal 150-450 [facility] Comment on above: Performed By: #### L 200.0010 ####ML - [id number] [place] [address] RBC 3.38 x10(6) Low 4.80-5.50 [facility] Comment on above: Performed By: #### L 200.0010 ####ML - VLYBCMEQDZ396 [place] [address] WBC 7.8 x10(3) Normal 4.5-10.0 [facility] Comment on above: Performed By: #### L 200.0010 ####ML - SYUQMFWNCN803 [place] [address] CBC W Auto Differential pane l (Bld)on 11-12-2022 BASO ABS 0.10 x10(3) 0.00 - 0.10 x10(3) [facility] Basophils/100 WBC (Bld) 0.7 % 0.0 - 1.0 % [facility] EOS ABS 0.30 x10(3) 0.00 - 0.54 x10(3) [facility] Eosinophils/100 WBC (Bld) 4.0 % 0.5 - 4.9 % [facility] Erythrocyte distribution width (RBC) [Ratio] 14.7 % 12.7 - 15.3 % [facility] Hematocrit (Bld) [Volume fraction] 30.0 % Low 42.0 - 51.0 % [facility] Hemoglobin (Bld) [Mass/Vol] 9.9 g/dL Low 14.0 - 17.2 g/dL [facility] LYMPH ABS 1.10 x10(3) 1.00 - 3.50 x10(3) [facility] Lymphocytes/100 WBC (Bld) 14.4 % Low 16.0 - 48.0 % [facility] MCH (RBC) [Entitic mass] 29.3 pg 28.8 - 32.2 pg [facility] MCHC (RBC) [Mass/Vol] 33.0 g/dL 33.0 - 36.0 g/dL [facility] MCV (RBC) [Entitic vol] 88.7 fL 80.0 - 94.0 fl [facility] MONO ABS 0.90 x10(3) High 0.30 - 0.80 x10(3) [facility] Monocytes/100 WBC (Bld) 11.1 % 4.3 - 11.2 % [facility] Neutrophil Ab 5.40 x10(3) 1.40 - 6.50 x10(3) [facility] Neutrophils/100 WBC (Bld) 69.8 % 45.0 - 73.0 % [facility] Platelet Count 209 X10(3) 150 - 450 X10(3) [facility] Platelet mean volume (Bld) [Entitic vol] 8.2 fL 7.4 - 9.2 fl [facility] RBC 3.38 x10(6) Low 4.80 - 5.50 x10(6) [facility] WBC 7.8 x10(3) 4.5 - 10.0 x10(3) [facility] GLUCOSE FSon 11-12-2022 Glucose [Mass/Vol] 234 mg/dL High 70-110 [facility] Comment on above: Performed By: #### L 100.0070 ####ML [facility] [id number] [place] [address] Glucose [Mass/Vol] 255 mg/dL High 70-110 [facility] Comment on above: Performed By: #### L 100.0070 ####ML - [id number] [place] [address] Glucose post fast [Mass/Vol] on 11-12-2022 Glucose [Mass/Vol] 234 mg/dL High 70 - 110 mg/dL [facility] Glucose [Mass/Vol] 255 mg/dL High 70 - 110 mg/dL [facility] HEPATIC PANELon 11-12-2022 A:G RATIO 1.12 Normal 1.1-2.5 [facility] Comment on above: Performed By: #### L 100.0030, L100.0010 ####ML - [id number] [place] [address] Albumin [Mass/Vol] 3.5 g/dL Normal 3.5-5.2 [facility] Comment on above: Performed By: #### L 100.0030, L100.0010 #### [facility] [id number] [place] [address] ALK. PHOS 76 U/L Normal 40-130 [facility] Comment on above: Performed By: #### L 100.0030, L100.0010 #### - [id number] [place] [id number] ALT [Catalytic activity/Vol] 12 U/L Normal 5-41 [facility] Comment on above: Performed By: #### L 100.0030, L100.0010 #### - [address] [address] AST [Catalytic activity/Vol] 19 U/L Normal 5-40 [facility] Comment on above: Result Comment: SPEC IMEN SHOWS HEMOLYSIS.IF RESULTS DO NOT CLINICALLYCORRELATE, SUGGEST RECOLLECTION. Performed By: #### L 100.0030, L100.0010 ####[address] [address] Bilirubin [Mass/Vol] 0.4 mg/dL Normal 0.2-1.2 [facility] Comment on above: Performed By: #### L 100.0030, L100.0010 ####[address] [address] DIRECT BILIRUBI <0.2 Normal 0.0-0.3 [facility] Comment on above: Performed By: #### L 100.0030, L100.0010 ####[facility] [id number] [place] [id number] Globulin (S) [Mass/Vol] 3.1 g/dL Normal 1.5-4.5 [facility] Comment on above: Performed By: #### L 100.0030, L100.0010 ####[address] [address] Protein [Mass/Vol] 6.6 g/dL Normal 6.4-8.3 [facility] Comment on above: Performed By: #### L 100.0030, L100.0010 ####[address] [address] Hepatic function 2000 panelo n 11-12-2022 Albumin/Globulin [Mass ratio] 1.12 {ratio} 1.1 - 2.5 [facility] ALP [Catalytic activity/Vol] 76 U/L 40 - 130 U/L [facility] Direct Bilirubin <0.2 0.0 - 0.3 mg/dL [facility] MAGNESIUMon 11-12-2022 Magnesium [Mass/Vol] 1.6 mg/dL Normal 1.6-2.4 [facility] Comment on above: Order Comment: ADD O N Performed By: #### L 100.0390 ####ML - [id number] [place] [address] Magnesium [Mass/Vol]on 11-12 Magnesium.plasma/Magn esium.RBC (Bld) [Molar ratio] 1.6 mg/dL 1.6 - 2.4 mg/dL [facility] BMPon 11-11-2022 Anion gap [Moles/Vol] 17.7 mmol/L Normal 15-22 [facility] Comment on above: Performed By: #### L 301.0120, L100.0010, L100.0030 ####[facility] [id number] [place] [address] Calcium [Mass/Vol] 8.8 mg/dL Normal 8.8-10.2 [facility] Comment on above: Performed By: #### L 301.0120, L100.0010, L100.0030 ####ML [facility] [id number] [place] [address] Chloride [Moles/Vol] 97 mmol/L Low 98-107 [facility] Comment on above: Performed By: #### L 301.0120, L100.0010, L100.0030 ####ML [facility] [id number] [place] [address] CO2 [Moles/Vol] 27 mmol/L Normal 22-29 [facility] Comment on above: Performed By: #### L 301.0120, L100.0010, L100.0030 ####ML - [id number] [place] [address] Creatinine [Mass/Vol] 3.34 mg/dL High 0.70-1.20 [facility] Comment on above: Performed By: #### L 301.0120, L100.0010, L100.0030 ####[facility] [id number] [place] [address] eGFR if AFR TIFFANY 22 [facility] Comment on above: Result Comment: eGFR >= 60 Indicates normal kidney function. * eGFR IS AN ESTIMATE * (AFR TIFFANY = ) (non-AFR AM = NON-) MDRD calculation used in the eGFR should not be used to dose medications. For further limitations of the eGFR please refer to the Physician Website or the National Kidney Disease Education Program website (www.nkdep.nih.gov). Performed By: #### L 301.0120, L100.0010, L100.0030 ####[facility] [id number] [place] [address] eGFR nonAFR Tiffany 18 [facility] Comment on above: Performed By: #### L 301.0120, L100.0010, L100.0030 ####[facility] [id number] [place] [address] Glucose [Mass/Vol] 181 mg/dL High 82-115 [facility] Comment on above: Performed By: #### L 301.0120, L100.0010, L100.0030 ####[facility] [id number] [place] [address] Potassium [Moles/Vol] 3.7 mmol/L Normal 3.5-5.0 [facility] Comment on above: Performed By: #### L 301.0120, L100.0010, L100.0030 ####[facility] [id number] [place] [address] Sodium [Moles/Vol] 138 mmol/L Normal 135-145 [facility] Comment on above: Performed By: #### L 301.0120, L100.0010, L100.0030 ####ML - [facility] [id number] [place] [address] Urea nitrogen [Mass/Vol] 76 mg/dL High 8-23 [facility] Comment on above: Performed By: #### L 301.0120, L100.0010, L100.0030 ####ML - [facility] [id number] [place] [address] Basic metabolic 2000 panelon 11-11-2022 Anion gap [Moles/Vol] 17.7 mmol/L 15 - 2 2 mmol/L [facility] Calcium [Mass/Vol] 8.8 mg/dL 8.8 - 10. 2 mg/dL [facility] Chloride [Moles/Vol] 97 mmol/L Low 98 - 10 7 mmol/L [facility] CO2 [Moles/Vol] 27 mmol/L 22 - 29 mmol/L [facility] Creatinine [Mass/Vol] 3.34 mg/dL High 0.70 - 1.20 mg/dL [facility] eGFR-All Other Races 18 [facility] GFR/1.73 sq M.predicted among blacks MDRD (S/P/Bld) [Vol rate/Area] 22 mL/min/{1.73_m2} [facility] Glucose [Mass/Vol] 181 mg/dL High 82 - 115 mg/dL [facility] Potassium [Moles/Vol] 3.7 mmol/L 3.5 - 5.0 mmol/L [facility] Sodium [Moles/Vol] 138 mmol/L 135 - 145 mmol/L [facility] Urea nitrogen [Mass/Vol] 76 mg/dL High 8 - 23 mg/dL [facility] CBCon 11-11-2022 BASO# 0.00 x10(3) Normal 0.00-0.10 [facility] Comment on above: Performed By: #### L 200.0010 ####ML - [facility] [id number] [place] [address] Basophils/100 WBC (Bld) 0.3 % Normal 0.0-1.0 [facility] Comment on above: Performed By: #### L 200.0010 ####ML - [id number] [place] [address] EOS# 0.30 x10(3) Normal 0.00-0.54 [facility] Comment on above: Performed By: #### L 200.0010 ####ML - [id number] [place] [address] Eosinophils/100 WBC (Bld) 4.1 % Normal 0.5-4.9 [facility] Comment on above: Performed By: #### L 200.0010 ####ML [facility] [id number] [place] [address] Erythrocyte distribution width (RBC) [Ratio] 14.7 % Normal 12.7-15.3 [facility] Comment on above: Performed By: #### L 200.0010 ####ML [facility] [id number] [place] [address] Hematocrit (Bld) [Volume fraction] 30.6 % Low 42.0-51.0 [facility] Comment on above: Performed By: #### L 200.0010 ####ML [facility] [id number] [place] [address] Hemoglobin (Bld) [Mass/Vol] 10.2 g/dL Low 14.0-17.2 [facility] Comment on above: Performed By: #### L 200.0010 ####ML [facility] [id number] [place] [address] LYMPH# 0.80 x10(3) Low 1.00-3.50 [facility] Comment on above: Performed By: #### L 200.0010 ####ML [facility] [id number] [place] [address] Lymphocytes/100 WBC (Bld) 10.8 % Low 16.0-48.0 [facility] Comment on above: Performed By: #### L 200.0010 ####ML [facility] [id number] [place] [address] MCH (RBC) [Entitic mass] 29.7 pg Normal 28.8-32.2 [facility] Comment on above: Performed By: #### L 200.0010 ####ML - [id number] [place] [address] MCHC (RBC) [Mass/Vol] 33.4 g/dL Normal 33.0-36.0 [facility] Comment on above: Performed By: #### L 200.0010 ####ML - [id number] [place] [address] MCV (RBC) [Entitic vol] 88.9 fL Normal 80.0-94.0 [facility] Comment on above: Performed By: #### L 200.0010 ####ML - [id number] [place] [address] MONO# 0.70 x10(3) Normal 0.30-0.80 [facility] Comment on above: Performed By: #### L 200.0010 ####ML - [id number] [place] [address] Monocytes/100 WBC (Bld) 9.7 % Normal 4.3-11.2 [facility] Comment on above: Performed By: #### L 200.0010 ####ML - [id number] [place] [address] NEUT# 5.50 x10(3) Normal 1.40-6.50 [facility] Comment on above: Performed By: #### L 200.0010 ####ML - [id number] [place] [address] Neutrophils/100 WBC (Bld) 75.1 % High 45.0-73.0 [facility] Comment on above: Performed By: #### L 200.0010 ####ML - [id number] [place] [address] Platelet mean volume (Bld) [Entitic vol] 8.0 fL Normal 7.4-9.2 [facility] Comment on above: Performed By: #### L 200.0010 ####ML - [id number] [place] [address] PLT 184 X10(3) Normal 150-450 [facility] Comment on above: Performed By: #### L 200.0010 ####ML - [id number] [place] [address] RBC 3.44 x10(6) Low 4.80-5.50 [facility] Comment on above: Performed By: #### L 200.0010 ####ML - [id number] [place] [address] WBC 7.3 x10(3) Normal 4.5-10.0 [facility] Comment on above: Performed By: #### L 200.0010 ####ML - [id number] [place] [address] CBC W Auto Differential pane l (Bld)on 11-11-2022 BASO ABS 0.00 x10(3) 0.00 - 0.10 x10(3) [facility] Basophils/100 WBC (Bld) 0.3 % 0.0 - 1.0 % [facility] EOS ABS 0.30 x10(3) 0.00 - 0.54 x10(3) [facility] Eosinophils/100 WBC (Bld) 4.1 % 0.5 - 4.9 % [facility] Erythrocyte distribution width (RBC) [Ratio] 14.7 % 12.7 - 15.3 % [facility] Hematocrit (Bld) [Volume fraction] 30.6 % Low 42.0 - 51.0 % [facility] Hemoglobin (Bld) [Mass/Vol] 10.2 g/dL Low 14.0 - 17.2 g/dL [facility] LYMPH ABS 0.80 x10(3) Low 1.00 - 3.50 x10(3) [facility] Lymphocytes/100 WBC (Bld) 10.8 % Low 16.0 - 48.0 % [facility] MCH (RBC) [Entitic mass] 29.7 pg 28.8 - 32.2 pg [facility] MCHC (RBC) [Mass/Vol] 33.4 g/dL 33.0 - 36.0 g/dL [facility] MCV (RBC) [Entitic vol] 88.9 fL 80.0 - 94.0 fl [facility] MONO ABS 0.70 x10(3) 0.30 - 0.80 x10(3) [facility] Monocytes/100 WBC (Bld) 9.7 % 4.3 - 11.2 % [facility] Neutrophil Ab 5.50 x10(3) 1.40 - 6.50 x10(3) [facility] Neutrophils/100 WBC (Bld) 75.1 % High 45.0 - 73.0 % [facility] Platelet Count 184 X10(3) 150 - 450 X10(3) [facility] Platelet mean volume (Bld) [Entitic vol] 8.0 fL 7.4 - 9.2 fl [facility] RBC 3.44 x10(6) Low 4.80 - 5.50 x10(6) [facility] WBC 7.3 x10(3) 4.5 - 10.0 x10(3) [facility] EKGon 11-11-2022 Calculated R [place] -27 degrees [facility] Calculated T [place] 77 degrees [facility] QRS Duration 98 ms [facility] QT Interval 350 ms [facility] QTC Calculation (Bazett) 460 ms [facility] Ventricular Rate 104 BPM [facility] EOSINOPHIL SMEARon 3 Eosinophils, Urine 0 0 - 1 [facility] WBC LM.HPF (Urine sed) [#/Area] 100 /[HPF] [facility] GLUCOSE FSon 11-11-2022 Glucose [Mass/Vol] 234 mg/dL High 70-110 [facility] Comment on above: Performed By: #### L 100.0070 ####ML [facility] [id number] [place] [address] Glucose [Mass/Vol] 198 mg/dL High 70-110 [facility] Comment on above: Performed By: #### L 100.0070 ####ML - [id number] [place] [address] Glucose [Mass/Vol] 307 mg/dL High 70-110 [facility] Comment on above: Performed By: #### L 100.0070 ####ML [address] [address] Glucose post fast [Mass/Vol] on 11-11-2022 Glucose [Mass/Vol] 234 mg/dL High 70 - 110 mg/dL [facility] Glucose [Mass/Vol] 198 mg/dL High 70 - 110 mg/dL [facility] Glucose [Mass/Vol] 307 mg/dL High 70 - 110 mg/dL [facility] HEPATIC PANELon 11-11-2022 A:G RATIO 1.12 Normal 1.1-2.5 [facility] Comment on above: Performed By: #### L 301.0120, L100.0010, L100.0030 #### - [id number] [place] [address] Albumin [Mass/Vol] 3.5 g/dL Normal 3.5-5.2 [facility] Comment on above: Performed By: #### L 301.0120, L100.0010, L100.0030 #### - [id number] [place] [address] ALK. PHOS 74 U/L Normal 40-130 [facility] Comment on above: Performed By: #### L 301.0120, L100.0010, L100.0030 ####[facility] [id number] [place] [address] ALT [Catalytic activity/Vol] 13 U/L Normal 5-41 [facility] Comment on above: Performed By: #### L 301.0120, L100.0010, L100.0030 ####[facility] [id number] [place] [address] AST [Catalytic activity/Vol] 18 U/L Normal 5-40 [facility] Comment on above: Performed By: #### L 301.0120, L100.0010, L100.0030 ####[facility] NLPWRAVXIZ430 [place] [address] Bilirubin [Mass/Vol] 0.4 mg/dL Normal 0.2-1.2 [facility] Comment on above: Performed By: #### L 301.0120, L100.0010, L100.0030 ####[facility] [id number] [place] [address] DIRECT BILIRUBI <0.2 Normal 0.0-0.3 [facility] Comment on above: Performed By: #### L 301.0120, L100.0010, L100.0030 ####[facility] [id number] [place] [address] Globulin (S) [Mass/Vol] 3.1 g/dL Normal 1.5-4.5 [facility] Comment on above: Performed By: #### L 301.0120, L100.0010, L100.0030 ####ML - [facility] [id number] [place] [address] Protein [Mass/Vol] 6.6 g/dL Normal 6.4-8.3 [facility] Comment on above: Performed By: #### L 301.0120, L100.0010, L100.0030 ####ML - [facility] [id number] [place] [address] Hepatic function 2000 panelo n 11-11-2022 Albumin [Mass/Vol] 3.5 g/dL 3.5 - 5.2 g/dL [facility] Albumin/Globulin [Mass ratio] 1.12 {ratio} 1.1 - 2.5 [facility] ALP [Catalytic activity/Vol] 74 U/L 40 - 130 U/L [facility] ALT [Catalytic activity/Vol] 13 U/L 5 - 41 U/L [facility] AST [Catalytic activity/Vol] 18 U/L 5 - 40 U/L [facility] Bilirubin [Mass/Vol] 0.4 mg/dL 0.2 - 1 .2 mg/dL [facility] Direct Bilirubin <0.2 0.0 - 0.3 mg/dL [facility] Globulin (S) [Mass/Vol] 3.1 g/dL 1.5 - 4.5 g/dL [facility] Protein [Mass/Vol] 6.6 g/dL 6.4 - 8.3 g/dL [facility] TROPONIN Ton 11-11-2022 Troponin T.cardiac [Mass/Vol] 0.072 ug/L High 0-0.010 [facility] Comment on above: Result Comment: NOTE : * Results of 0.011 - 0.099 ng/mL are defined asindeterminate. Results of >/= 0.100 ng/mL are defined as positive.*Indeterminate value is considered an abnormal value andindicative of myocardial damage. This may or may notbe secondary to myocardial ischemia or myocardialnecrosis(AMI). Serial testing of troponin, clinicalcorrelation, including EKG or imaging studies, and riskstratification is additionally required.Source: WHO criteria cutoff for myocardial necrosis(AMI). Performed By: #### L 301.0120, L100.0010, L100.0030 ####ML - [id number] [place] [address] Troponin T.cardiac [Mass/Vol] 0.072 ug/L High 0 - 0.010 ng/mL [facility] UR EOS COUNTon 11-11-2022 TOT WBC COUNTED 100 Normal [facility] Comment on above: Performed By: #### L 200.4440 ####ML - [id number] [place] [address] UR EOS 0 Normal 0-1 [facility] Comment on above: Performed By: #### L 200.4440 ####ML - [id number] [place] [address] ARTERIAL BLOODon 11-10-2022 BE(B) 2.3 mmol/L High -2.0-2.0 [facility] Comment on above: Order Comment: NOTIF Y RT? Y Performed By: #### L 100.1060 ####ML - [id number] [place] [address] BE(ecf) 2.7 mmol/L High -2.0-2.0 [facility] Comment on above: Order Comment: NOTIF Y RT? Y Performed By: #### L 100.1060 ####ML - [id number] [place] [address] BO2 16.5 mL/dL [facility] Comment on above: Order Comment: NOTIF Y RT? Y Performed By: #### L 100.1060 ####ML - [id number] [place] [address] ctCO2 28.8 mmol/L [facility] Comment on above: Order Comment: NOTIF Y RT? Y Performed By: #### L 100.1060 ####ML - UCOGBSHUJI[address] [place] [address] ctO2 (a) 15.4 mL/dL [facility] Comment on above: Order Comment: NOTIF Y RT? Y Performed By: #### L 100.1060 ####ML - [id number] [place] [address] FLOW 3.00 L/min [facility] Comment on above: Order Comment: NOTIF Y RT? Y Performed By: #### L 100.1060 ####ML - IEIWYFOXYQ[address] [place] [address] HCO3-act 27.4 mmol/L High 22-26 [facility] Comment on above: Order Comment: NOTIF Y RT? Y Performed By: #### L 100.1060 ####ML - [id number] [place] [address] HCO3-std 26.4 mmol/L [facility] Comment on above: Order Comment: NOTIF Y RT? Y Performed By: #### L 100.1060 ####ML - [id number] [place] [address] Hematocrit (Bld) [Volume fraction] 35 % Low 42.0-51.0 [facility] Comment on above: Order Comment: NOTIF Y RT? Y Performed By: #### L 100.1060 ####ML - [facility] [id number] [place] [address] Oxygen (Bld) [Partial pressure] 65.6 mm[Hg] Low 80-100 [facility] Comment on above: Order Comment: NOTIF Y RT? Y Performed By: #### L 100.1060 ####ML - [id number] [place] [address] pCO2 45.0 mmHg Normal 35-45 [facility] Comment on above: Order Comment: NOTIF Y RT? Y Performed By: #### L 100.1060 ####ML - [id number] [place] [address] pH (Bld) 7.403 [pH] Normal 7.350-7.450 [facility] Comment on above: Order Comment: NOTIF Y RT? Y Performed By: #### L 100.1060 ####ML - [id number] [place] [address] sO2 91.9 % Low 95-98 [facility] Comment on above: Order Comment: NOTIF Y RT? Y Performed By: #### L 100.1060 ####ML - [facility] PTQIGJGNRX004 [place] [address] tHb 12.0 g/dL Low 14.0-17.2 [facility] Comment on above: Order Comment: NOTIF Y RT? Y Performed By: #### L 100.1060 ####ML - [facility] ZNPDVMOPTJ702 [place] [address] BLOOD GASES ARTERIALon 11-10 BE(B) 2.3 mmol/L High -2.0 - 2.0 mmol/L [facility] BE(ECF) 2.7 mmol/L High -2.0 - 2.0 mmol/L [facility] BO2 16.5 mL/dL [facility] CTCO2 28.8 mmol/L High 23 - 27 mmol/L [facility] CTO2(A) 15.4 mL/dL [facility] FLOW 3.00 L/min [facility] HCO3-ACT 27.4 mmol/L High 22 - 26 mmol/L [facility] HCO3-STD 26.4 mmol/L [facility] Hematocrit (Bld) [Volume fraction] 35 % Low 42.0 - 51.0 % [facility] Oxygen (Bld) [Partial pressure] 65.6 mm[Hg] Low 80 - 100 mmHg [facility] PCO2 45.0 mmHg 35 - 45 mmHg [facility] pH (Bld) 7.403 [pH] 7.350 - 7.450 [facility] SO2 91.9 % Low 95 - 98 % [facility] THB 12.0 g/dL Low 14.0 - 17.2 g/dL [facility] BMPon 11-10-2022 Anion gap [Moles/Vol] 15.9 mmol/L Normal 15-22 [facility] Comment on above: Performed By: #### L 100.0030, L100.0010 ####ML - [facility] [id number] [place] [address] Calcium [Mass/Vol] 8.9 mg/dL Normal 8.8-10.2 [facility] Comment on above: Performed By: #### L 100.0030, L100.0010 ####ML - [id number] [place] [address] Chloride [Moles/Vol] 94 mmol/L Low 98-107 [facility] Comment on above: Performed By: #### L 100.0030, L100.0010 ####[facility] JZYPDIUWFZ505 [place] [address] CO2 [Moles/Vol] 27 mmol/L Normal 22-29 [facility] Comment on above: Performed By: #### L 100.0030, L100.0010 ####[facility] [address] [place] [address] Creatinine [Mass/Vol] 2.85 mg/dL High 0.70-1.20 [facility] Comment on above: Performed By: #### L 100.0030, L100.0010 ####[address] [address] eGFR if AFR TIFFANY 27 [facility] Comment on above: Result Comment: eGFR >= 60 Indicates normal kidney function. * eGFR IS AN ESTIMATE * (AFR TIFFANY = ) (non-AFR AM = NON-) MDRD calculation used in the eGFR should not be used to dose medications. For further limitations of the eGFR please refer to the Physician Website or the National Kidney Disease Education Program website (www.nkdep.nih.gov). Performed By: #### L 100.0030, L100.0010 ####[facility] KYYSQURLGJ560 [place] [address] eGFR nonAFR Tiffany 22 [facility] Comment on above: Performed By: #### L 100.0030, L100.0010 ####[facility] [address] [place] [address] Glucose [Mass/Vol] 189 mg/dL High 82-115 [facility] Comment on above: Performed By: #### L 100.0030, L100.0010 ####ML - [id number] [place] [address] Potassium [Moles/Vol] 3.9 mmol/L Normal 3.5-5.0 [facility] Comment on above: Performed By: #### L 100.0030, L100.0010 ####ML - [id number] [place] [address] Sodium [Moles/Vol] 133 mmol/L Low 135-145 [facility] Comment on above: Performed By: #### L 100.0030, L100.0010 ####ML - GZKJCPIIQM140 [place] [address] Urea nitrogen [Mass/Vol] 57 mg/dL High 8-23 [facility] Comment on above: Performed By: #### L 100.0030, L100.0010 ####ML - [id number] [place] [address] Basic metabolic 2000 panelon 11-10-2022 Anion gap [Moles/Vol] 15.9 mmol/L 15 - 2 2 mmol/L [facility] Calcium [Mass/Vol] 8.9 mg/dL 8.8 - 10. 2 mg/dL [facility] Chloride [Moles/Vol] 94 mmol/L Low 98 - 10 7 mmol/L [facility] CO2 [Moles/Vol] 27 mmol/L 22 - 29 mmol/L [facility] Creatinine [Mass/Vol] 2.85 mg/dL High 0.70 - 1.20 mg/dL [facility] eGFR-All Other Races 22 [facility] GFR/1.73 sq M.predicted among blacks MDRD (S/P/Bld) [Vol rate/Area] 27 mL/min/{1.73_m2} [facility] Glucose [Mass/Vol] 189 mg/dL High 82 - 115 mg/dL [facility] Potassium [Moles/Vol] 3.9 mmol/L 3.5 - 5.0 mmol/L [facility] Sodium [Moles/Vol] 133 mmol/L Low 135 - 145 mmol/L [facility] Urea nitrogen [Mass/Vol] 57 mg/dL High 8 - 23 mg/dL [facility] CBCon 11-10-2022 BASO# 0.00 x10(3) Normal 0.00-0.10 [facility] Comment on above: Performed By: #### L 200.0010 ####ML - [id number] [place] [address] Basophils/100 WBC (Bld) 0.3 % Normal 0.0-1.0 [facility] Comment on above: Performed By: #### L 200.0010 ####ML - [id number] [place] [address] EOS# 0.20 x10(3) Normal 0.00-0.54 [facility] Comment on above: Performed By: #### L 200.0010 ####ML - DVDDUJQUSO[address] [place] [address] Eosinophils/100 WBC (Bld) 3.3 % Normal 0.5-4.9 [facility] Comment on above: Performed By: #### L 200.0010 ####ML - ELJRJOYKII[address] [place] [address] Erythrocyte distribution width (RBC) [Ratio] 14.6 % Normal 12.7-15.3 [facility] Comment on above: Performed By: #### L 200.0010 ####ML - VKUPMEKKOA[address] [place] [address] Hematocrit (Bld) [Volume fraction] 36.5 % Low 42.0-51.0 [facility] Comment on above: Performed By: #### L 200.0010 ####ML - DZSHGVQTYO[address] [place] [address] Hemoglobin (Bld) [Mass/Vol] 11.9 g/dL Low 14.0-17.2 [facility] Comment on above: Performed By: #### L 200.0010 ####ML - AOQJCYZUAS[address] [place] [address] LYMPH# 0.60 x10(3) Low 1.00-3.50 [facility] Comment on above: Performed By: #### L 200.0010 ####ML [facility] [id number] [place] [address] Lymphocytes/100 WBC (Bld) 8.2 % Low 16.0-48.0 [facility] Comment on above: Performed By: #### L 200.0010 ####[address] [address] MCH (RBC) [Entitic mass] 28.9 pg Normal 28.8-32.2 [facility] Comment on above: Performed By: #### L 200.0010 ####ML [address] [address] MCHC (RBC) [Mass/Vol] 32.8 g/dL Low 33.0-36.0 [facility] Comment on above: Performed By: #### L 200.0010 ####ML [address] [address] MCV (RBC) [Entitic vol] 88.3 fL Normal 80.0-94.0 [facility] Comment on above: Performed By: #### L 200.0010 ####ML [address] [address] MONO# 0.50 x10(3) Normal 0.30-0.80 [facility] Comment on above: Performed By: #### L 200.0010 ####ML [address] [address] Monocytes/100 WBC (Bld) 6.2 % Normal 4.3-11.2 [facility] Comment on above: Performed By: #### L 200.0010 ####ML [address] [address] NEUT# 6.10 x10(3) Normal 1.40-6.50 [facility] Comment on above: Performed By: #### L 200.0010 ####[address] [address] Neutrophils/100 WBC (Bld) 82.0 % High 45.0-73.0 [facility] Comment on above: Performed By: #### L 200.0010 ####[address] [place] [address] Platelet mean volume (Bld) [Entitic vol] 7.5 fL Normal 7.4-9.2 [facility] Comment on above: Performed By: #### L 200.0010 ####ML - [id number] [place] [address] PLT 226 X10(3) Normal 150-450 [facility] Comment on above: Performed By: #### L 200.0010 ####ML - [id number] [place] [address] RBC 4.13 x10(6) Low 4.80-5.50 [facility] Comment on above: Performed By: #### L 200.0010 ####ML - [id number] [place] [address] [id number] WBC 7.4 x10(3) Normal 4.5-10.0 [facility] Comment on above: Performed By: #### L 200.0010 ####ML [facility] [id number] [place] [id number] CBC W Auto Differential pane l (Bld)on 11-10-2022 BASO ABS 0.00 x10(3) 0.00 - 0.10 x10(3) [facility] Basophils/100 WBC (Bld) 0.3 % 0.0 - 1.0 % [facility] EOS ABS 0.20 x10(3) 0.00 - 0.54 x10(3) [facility] Eosinophils/100 WBC (Bld) 3.3 % 0.5 - 4.9 % [facility] Erythrocyte distribution width (RBC) [Ratio] 14.6 % 12.7 - 15.3 % [facility] Hematocrit (Bld) [Volume fraction] 36.5 % Low 42.0 - 51.0 % [facility] Hemoglobin (Bld) [Mass/Vol] 11.9 g/dL Low 14.0 - 17.2 g/dL [facility] LYMPH ABS 0.60 x10(3) Low 1.00 - 3.50 x10(3) [facility] Lymphocytes/100 WBC (Bld) 8.2 % Low 16.0 - 48.0 % [facility] MCH (RBC) [Entitic mass] 28.9 pg 28.8 - 32.2 pg [facility] MCHC (RBC) [Mass/Vol] 32.8 g/dL Low 33.0 - 36.0 g/dL [facility] MCV (RBC) [Entitic vol] 88.3 fL 80.0 - 94.0 fl [facility] MONO ABS 0.50 x10(3) 0.30 - 0.80 x10(3) [facility] Monocytes/100 WBC (Bld) 6.2 % 4.3 - 11.2 % [facility] Neutrophil Ab 6.10 x10(3) 1.40 - 6.50 x10(3) [facility] Neutrophils/100 WBC (Bld) 82.0 % High 45.0 - 73.0 % [facility] Platelet Count 226 X10(3) 150 - 450 X10(3) [facility] Platelet mean volume (Bld) [Entitic vol] 7.5 fL 7.4 - 9.2 fl [facility] RBC 4.13 x10(6) Low 4.80 - 5.50 x10(6) [facility] WBC 7.4 x10(3) 4.5 - 10.0 x10(3) [facility] CHEST-ONE VIEW ONLY - CXR1on 11-10-2022 CHEST-ONE VIEW ONLY - CXR1 Normal [facility] EMERGENCY DEPARTMENT REPORTo n 11-10-2022 EMERGENCY DEPARTMENT REPORT Normal [facility] FLU BY PCR (SALEM)on 023 FLU A (PCR) Negative NEGATIVE [facility] FLU B (PCR) Negative NEGATIVE [facility] FLU PCRon 11-10-2022 FLU A (PCR) Negative Normal NEGATIVE [facility] Comment on above: Order Comment: What is the source+ SWAB Performed By: #### L 399.994, L400.0015 ####ML - [id number] [place] [address] FLU B (PCR) Negative Normal NEGATIVE [facility] Comment on above: Order Comment: What is the source+ SWAB Performed By: #### L 399.994, L400.0015 ####ML - [facility] [id number] [place] [address] GLUCOSE FSon 11-10-2022 Glucose [Mass/Vol] 258 mg/dL High 70-110 [facility] Comment on above: Performed By: #### L 100.0070 ####ML - [id number] [place] [address] Glucose [Mass/Vol] 260 mg/dL High 70-110 [facility] Comment on above: Performed By: #### L 100.0070 ####ML - [id number] [place] [address] Glucose post fast [Mass/Vol] on 11-10-2022 Glucose [Mass/Vol] 258 mg/dL High 70 - 110 mg/dL [facility] Glucose [Mass/Vol] 260 mg/dL High 70 - 110 mg/dL [facility] HEPATIC PANELon 11-10-2022 A:G RATIO 1.02 Low 1.1-2.5 [facility] Comment on above: Performed By: #### L 100.0030, L100.0010 ####ML [facility] [id number] [place] [address] Albumin [Mass/Vol] 3.7 g/dL Normal 3.5-5.2 [facility] Comment on above: Performed By: #### L 100.0030, L100.0010 ####[facility] [id number] [place] [address] ALK. PHOS 89 U/L Normal 40-130 [facility] Comment on above: Performed By: #### L 100.0030, L100.0010 ####[facility] [id number] [place] [address] ALT [Catalytic activity/Vol] 20 U/L Normal 5-41 [facility] Comment on above: Performed By: #### L 100.0030, L100.0010 ####ML - [id number] [place] [address] AST [Catalytic activity/Vol] 42 U/L High 5-40 [facility] Comment on above: Performed By: #### L 100.0030, L100.0010 ####ML - [id number] [place] [address] Bilirubin [Mass/Vol] 0.5 mg/dL Normal 0.2-1.2 [facility] Comment on above: Performed By: #### L 100.0030, L100.0010 ####ML - [id number] [place] [address] DIRECT BILIRUBI <0.2 Normal 0.0-0.3 [facility] Comment on above: Performed By: #### L 100.0030, L100.0010 ####ML - [id number] [place] [address] Globulin (S) [Mass/Vol] 3.6 g/dL Normal 1.5-4.5 [facility] Comment on above: Performed By: #### L 100.0030, L100.0010 ####ML - [id number] [place] [address] Protein [Mass/Vol] 7.3 g/dL Normal 6.4-8.3 [facility] Comment on above: Performed By: #### L 100.0030, L100.0010 ####ML [facility] [id number] [place] [address] Hepatic function 2000 [facility] 11-10-2022 Albumin [Mass/Vol] 3.7 g/dL 3.5 - 5.2 g/dL [facility] Albumin/Globulin [Mass ratio] 1.02 {ratio} Low 1.1 - 2.5 [facility] ALP [Catalytic activity/Vol] 89 U/L 40 - 130 U/L [facility] ALT [Catalytic activity/Vol] 20 U/L 5 - 41 U/L [facility] AST [Catalytic activity/Vol] 42 U/L High 5 - 40 U/L [facility] Bilirubin [Mass/Vol] 0.5 mg/dL 0.2 - 1 .2 mg/dL [facility] Direct Bilirubin <0.2 0.0 - 0.3 mg/dL [facility] Globulin (S) [Mass/Vol] 3.6 g/dL 1.5 - 4.5 g/dL [facility] Protein [Mass/Vol] 7.3 g/dL 6.4 - 8.3 g/dL [facility] Natriuretic peptide.B proramor jenniffer N-Terminal [Mass/Vol]on 02-28-2023 Natriuretic peptide B (Bld) [Mass/Vol] 7386 pg/mL [facility] PRO-BNPon 11-10-2022 Natriuretic peptide B (Bld) [Mass/Vol] 7386 pg/mL Normal [facility] Comment on above: Result Comment: HF U NLIKELY: NT-PRO BNP <300 pg/mLHF LIKELY: NT-PRO BNP >450 pg/mL (AGE <50) NT-PRO BNP >900 pg/mL (AGE 50-75) NT-PRO BNP >1800 pg/mL (AGE >75)HF VERY LIKELY: NT-PRO BNP >10,000 pg/mLSOURCE: PRIDE ALGORITHM FOR PRO-BNP; CRITICAL PATHWAYS INCARDIOLOGY VOLUME 3, NUMBER 4; AUGUST 2004 Performed By: #### L 301.0120, L301.0460 ####ML - [facility] [id number] [place] [address] PROCALCITONINon 11-10-2022 PROCALCITONIN 0.62 ng/mL High 0.06-0.09 [facility] Comment on above: Order Comment: ADD O N Performed By: #### L 304.0500 ####ML - [facility] [id number] [place] [address] Procalcitonin [Mass/Vol]on 0 11-10-2022 Procalcitonin 0.62 ng/mL High 0.06 - 0.09 ng/mL [facility] RAPID COVIDon 11-10-2022 SARS-CoV-2 (COVID-19) RNA CHER+probe Ql (Unsp spec) Negative Normal NEGATIVE [facility] Comment on above: Order Comment: What is the source+ SWAB Result Comment: THIS TEST HAS BEEN AUTHORIZED BY FDA UNDER AN EMERGENCY USEAUTHORIZATION (EUA). -NEGATIVE: NEGATIVE FOR COVID19 (SARS-CoV-2) BY PCRPOSITIVE: POSITIVE FOR COVID19 (SARS-CoV-2) BY PCRPRESUMPTIVE POSITIVE: POSITIVE BY SINGLE CLEMENT SARS-CoVTARGET. SARS-CoV-1 CANNOT BE EXCLUDED, BUT IS NOT CURRENTLYCIRCULATING IN [place]. Performed By: #### L 399.994, L400.0015 #### - [id number] [place] [address] SARS-CoV-2 (COVID-19) RNA NA A+probe Ql (Resp)on 11-10-2022 SARS-CoV-2 (COVID-19) RNA CHER+probe Ql (Unsp spec) Negative NEGATIVE [facility] TROPONIN Ton 11-10-2022 Troponin T.cardiac [Mass/Vol] 0.061 ug/L High 0-0.010 [facility] Comment on above: Result Comment: NOTE : * Results of 0.011 - 0.099 ng/mL are defined asindeterminate. Results of >/= 0.100 ng/mL are defined as positive.*Indeterminate value is considered an abnormal value andindicative of myocardial damage. This may or may notbe secondary to myocardial ischemia or myocardialnecrosis(AMI). Serial testing of troponin, clinicalcorrelation, including EKG or imaging studies, and riskstratification is additionally required.Source: WHO criteria cutoff for myocardial necrosis(AMI). Performed By: #### L 301.0120 ####ML - [id number] [place] [address] Troponin T.cardiac [Mass/Vol] 0.061 ug/L High 0 - 0.010 ng/mL [facility] Troponin T.cardiac [Mass/Vol] 0.073 ug/L High 0-0.010 [facility] Comment on above: Result Comment: NOTE : * Results of 0.011 - 0.099 ng/mL are defined asindeterminate. Results of >/= 0.100 ng/mL are defined as positive.*Indeterminate value is considered an abnormal value andindicative of myocardial damage. This may or may notbe secondary to myocardial ischemia or myocardialnecrosis(AMI). Serial testing of troponin, clinicalcorrelation, including EKG or imaging studies, and riskstratification is additionally required.Source: WHO criteria cutoff for myocardial necrosis(AMI). Performed By: #### L 301.0120, L301.0460 ####ML [facility] [id number] [place] [address] Troponin T.cardiac [Mass/Vol] 0.073 ug/L High 0 - 0.010 ng/mL [facility] XR CHEST 1V FRONTALon 2022 [facility] [id number] 10-31-2022 HbA1c (Bld) [Mass fraction] 7.3 % High 4.3-6.1 [facility] Comment on above: Result Comment: More mated Average Glucose:HgbA1C % mg/dL4.0 685.0 976.0 1257.0 1548.0 1839.0 99001.0 240Source: [place] [employer] web site, 2017. Performed By: #### L 200.2000 ####ML - [id number] [place] [address] Denny 10-30-2022 ALT [Catalytic activity/Vol] 8 U/L Normal 5-41 [facility] Comment on above: Performed By: #### L 100.0240, L100.0250, L100.0010 ####ML - [id number] [place] [address] ALT/SGPTon 10-30-2022 ALT [Catalytic activity/Vol] 8 U/L 5 - 41 U/L [facility] Jonathan 10-30-2022 AST [Catalytic activity/Vol] 22 U/L Normal 5-40 [facility] Comment on above: Performed By: #### L 100.0240, L100.0250, L100.0010 ####ML - [id number] [place] [address] AST/SGOT BLDon 10-30-2022 AST [Catalytic activity/Vol] 22 U/L 5 - 40 U/L [facility] BMPon 10-30-2022 Anion gap [Moles/Vol] 19.2 mmol/L Normal 15-22 [facility] Comment on above: Performed By: #### L 100.0240, L100.0250, L100.0010 ####ML - [id number] [place] [address] Calcium [Mass/Vol] 8.7 mg/dL Low 8.8-10.2 [facility] Comment on above: Performed By: #### L 100.0240, L100.0250, L100.0010 #### - [id number] [place] [address] Chloride [Moles/Vol] 94 mmol/L Low 98-107 [facility] Comment on above: Performed By: #### L 100.0240, L100.0250, L100.0010 ####ML - [id number] [place] [address] CO2 [Moles/Vol] 28 mmol/L Normal 22-29 [facility] Comment on above: Performed By: #### L 100.0240, L100.0250, L100.0010 ####ML - [facility] [place] [address] Creatinine [Mass/Vol] 3.16 mg/dL High 0.70-1.20 [facility] Comment on above: Performed By: #### L 100.0240, L100.0250, L100.0010 ####ML - [id number] [place] [address] eGFR if AFR TIFFANY 24 [facility] Comment on above: Result Comment: eGFR >= 60 Indicates normal kidney function. * eGFR IS AN ESTIMATE * (AFR TIFFANY = ) (non-AFR AM = NON-) MDRD calculation used in the eGFR should not be used to dose medications. For further limitations of the eGFR please refer to the Physician Website or the National Kidney Disease Education Program website (www.nkdep.nih.gov). Performed By: #### L 100.0240, L100.0250, L100.0010 ####ML - [id number] [place] [address] eGFR nonAFR Tiffany 20 [facility] Comment on above: Performed By: #### L 100.0240, L100.0250, L100.0010 ####ML - [id number] [place] [address] Glucose [Mass/Vol] 158 mg/dL High 82-115 [facility] Comment on above: Performed By: #### L 100.0240, L100.0250, L100.0010 ####ML - [id number] [place] [address] Potassium [Moles/Vol] 4.2 mmol/L Normal 3.5-5.0 [facility] Comment on above: Performed By: #### L 100.0240, L100.0250, L100.0010 ####ML - [id number] [place] [address] Sodium [Moles/Vol] 137 mmol/L Normal 135-145 [facility] Comment on above: Performed By: #### L 100.0240, L100.0250, L100.0010 ####ML - GJXYVXMJQN[address] [place] [address] Urea nitrogen [Mass/Vol] 79 mg/dL High 8-23 [facility] Comment on above: Performed By: #### L 100.0240, L100.0250, L100.0010 ####ML - [id number] [place] [address] Anion gap [Moles/Vol] 17.4 mmol/L Normal 15-22 [facility] Comment on above: Performed By: #### L 100.0030, L100.0010 ####ML - [id number] [place] [address] Calcium [Mass/Vol] 8.6 mg/dL Low 8.8-10.2 [facility] Comment on above: Performed By: #### L 100.0030, L100.0010 ####ML - OLWCQOZGRF589 [place] [address] Chloride [Moles/Vol] 93 mmol/L Low 98-107 [facility] Comment on above: Performed By: #### L 100.0030, L100.0010 #### - [id number] [place] [address] CO2 [Moles/Vol] 28 mmol/L Normal 22-29 [facility] Comment on above: Performed By: #### L 100.0030, L100.0010 ####[facility] [id number] [place] [address] Creatinine [Mass/Vol] 2.98 mg/dL High 0.70-1.20 [facility] Comment on above: Performed By: #### L 100.0030, L100.0010 ####[facility] [id number] [place] [address] eGFR if AFR TIFFANY 25 [facility] Comment on above: Result Comment: eGFR >= 60 Indicates normal kidney function. * eGFR IS AN ESTIMATE * (AFR TIFFANY = ) (non-AFR AM = NON-) MDRD calculation used in the eGFR should not be used to dose medications. For further limitations of the eGFR please refer to the Physician Website or the National Kidney Disease Education Program website (www.nkdep.nih.gov). Performed By: #### L 100.0030, L100.0010 ####[facility] [id number] [place] [address] eGFR nonAFR Tiffany 21 [facility] Comment on above: Performed By: #### L 100.0030, L100.0010 ####[facility] [id number] [place] [address] Glucose [Mass/Vol] 185 mg/dL High 82-115 [facility] Comment on above: Performed By: #### L 100.0030, L100.0010 ####[facility] HFICSYECOL[address] [place] [address] Potassium [Moles/Vol] 3.4 mmol/L Low 3.5-5.0 [facility] Comment on above: Performed By: #### L 100.0030, L100.0010 ####ML - [id number] [place] [address] Sodium [Moles/Vol] 135 mmol/L Normal 135-145 [facility] Comment on above: Performed By: #### L 100.0030, L100.0010 ####ML - [id number] [place] [address] Urea nitrogen [Mass/Vol] 76 mg/dL High 8-23 [facility] Comment on above: Performed By: #### L 100.0030, L100.0010 ####ML - [id number] [place] [address] Basic metabolic 2000 panelon 10-30-2022 Anion gap [Moles/Vol] 19.2 mmol/L 15 - 2 2 mmol/L [facility] Calcium [Mass/Vol] 8.7 mg/dL Low 8.8 - 10. 2 mg/dL [facility] Chloride [Moles/Vol] 94 mmol/L Low 98 - 10 7 mmol/L [facility] CO2 [Moles/Vol] 28 mmol/L 22 - 29 mmol/L [facility] Creatinine [Mass/Vol] 3.16 mg/dL High 0.70 - 1.20 mg/dL [facility] eGFR-All Other Races 20 [facility] GFR/1.73 sq M.predicted among blacks MDRD (S/P/Bld) [Vol rate/Area] 24 mL/min/{1.73_m2} [facility] Glucose [Mass/Vol] 158 mg/dL High 82 - 115 mg/dL [facility] Potassium [Moles/Vol] 4.2 mmol/L 3.5 - 5.0 mmol/L [facility] Sodium [Moles/Vol] 137 mmol/L 135 - 145 mmol/L [facility] Urea nitrogen [Mass/Vol] 79 mg/dL High 8 - 23 mg/dL [facility] CBCon 10-30-2022 BASO# 0.10 x10(3) Normal 0.00-0.10 [facility] Comment on above: Performed By: #### L 200.0010 ####ML [facility] [id number] [place] [address] Basophils/100 WBC (Bld) 1.0 % Normal 0.0-1.0 [facility] Comment on above: Performed By: #### L 200.0010 ####[address] [address] EOS# 0.20 x10(3) Normal 0.00-0.54 [facility] Comment on above: Performed By: #### L 200.0010 ####ML [address] [address] Eosinophils/100 WBC (Bld) 2.8 % Normal 0.5-4.9 [facility] Comment on above: Performed By: #### L 200.0010 ####[address] [address] Erythrocyte distribution width (RBC) [Ratio] 14.8 % Normal 12.7-15.3 [facility] Comment on above: Performed By: #### L 200.0010 ####ML [address] [address] Hematocrit (Bld) [Volume fraction] 31.8 % Low 42.0-51.0 [facility] Comment on above: Performed By: #### L 200.0010 ####ML [address] [address] Hemoglobin (Bld) [Mass/Vol] 10.5 g/dL Low 14.0-17.2 [facility] Comment on above: Performed By: #### L 200.0010 ####ML [address] [address] LYMPH# 1.80 x10(3) Normal 1.00-3.50 [facility] Comment on above: Performed By: #### L 200.0010 ####[address] [address] Lymphocytes/100 WBC (Bld) 25.1 % Normal 16.0-48.0 [facility] Comment on above: Performed By: #### L 200.0010 ####ML - [address] [address] MCH (RBC) [Entitic mass] 29.4 pg Normal 28.8-32.2 [facility] Comment on above: Performed By: #### L 200.0010 ####ML - [address] [address] MCHC (RBC) [Mass/Vol] 33.0 g/dL Normal 33.0-36.0 [facility] Comment on above: Performed By: #### L 200.0010 ####ML - [address] [address] MCV (RBC) [Entitic vol] 88.8 fL Normal 80.0-94.0 [facility] Comment on above: Performed By: #### L 200.0010 ####ML [address] [address] MONO# 0.90 x10(3) High 0.30-0.80 [facility] Comment on above: Performed By: #### L 200.0010 ####ML - [address] [address] Monocytes/100 WBC (Bld) 12.9 % High 4.3-11.2 [facility] Comment on above: Performed By: #### L 200.0010 ####ML [address] [address] NEUT# 4.10 x10(3) Normal 1.40-6.50 [facility] Comment on above: Performed By: #### L 200.0010 ####ML [address] [address] Neutrophils/100 WBC (Bld) 58.2 % Normal 45.0-73.0 [facility] Comment on above: Performed By: #### L 200.0010 ####ML [address] [address] Platelet mean volume (Bld) [Entitic vol] 7.1 fL Low 7.4-9.2 [facility] Comment on above: Performed By: #### L 200.0010 ####ML [address] [place] [address] PLT 251 X10(3) Normal 150-450 [facility] Comment on above: Performed By: #### L 200.0010 ####ML - [id number] [place] [address] RBC 3.58 x10(6) Low 4.80-5.50 [facility] Comment on above: Performed By: #### L 200.0010 ####ML - [id number] [place] [address] WBC 7.1 x10(3) Normal 4.5-10.0 [facility] Comment on above: Performed By: #### L 200.0010 ####ML [facility] [id number] [place] [address] GLUCOSE FSon 10-30-2022 Glucose [Mass/Vol] 294 mg/dL High 70-110 [facility] Comment on above: Performed By: #### L 100.0070 ####ML [facility] [id number] [place] [address] HEPATIC PANELon 10-30-2022 A:G RATIO 1.03 Low 1.1-2.5 [facility] Comment on above: Performed By: #### L 100.0030, L100.0010 ####ML - [id number] [place] [address] Albumin [Mass/Vol] 3.2 g/dL Low 3.5-5.2 [facility] Comment on above: Performed By: #### L 100.0030, L100.0010 ####ML - [id number] [place] [address] ALK. PHOS 57 U/L Normal 40-130 [facility] Comment on above: Performed By: #### L 100.0030, L100.0010 ####ML - [id number] [place] [address] ALT [Catalytic activity/Vol] 6 U/L Normal 5-41 [facility] Comment on above: Performed By: #### L 100.0030, L100.0010 ####ML - [id number] [place] [address] AST [Catalytic activity/Vol] 16 U/L Normal 5-40 [facility] Comment on above: Performed By: #### L 100.0030, L100.0010 ####[address] [address] Bilirubin [Mass/Vol] 0.6 mg/dL Normal 0.2-1.2 [facility] Comment on above: Performed By: #### L 100.0030, L100.0010 ####[address] [address] DIRECT BILIRUBI <0.2 Normal 0.0-0.3 [facility] Comment on above: Performed By: #### L 100.0030, L100.0010 ####[address] [address] Globulin (S) [Mass/Vol] 3.1 g/dL Normal 1.5-4.5 [facility] Comment on above: Performed By: #### L 100.0030, L100.0010 ####[address] [address] Protein [Mass/Vol] 6.3 g/dL Low 6.4-8.3 [facility] Comment on above: Performed By: #### L 100.0030, L100.0010 ####[address] [address] HbA1c (Bld)on 10-30-2022 HbA1c (Bld) [Mass fraction] 7.3 % High 4.3 - 6.1 % [facility] PTon 10-30-2022 INR Coag (PPP) [Relative time] 1.7 {INR} High 0.8-1.1 [facility] Comment on above: Order Comment: Comme nt: DAILY INR. Result Comment: CO UMADIN PROTOCOLSINR values are generated for use in patients on coumadin.INR values stabilize 7 days after the start of coumadin orchanges in coumadin dosage. The usual TARGET/INR range is:INDICATION INR RANGEProphylaxis/treatment of: Venous Thrombosis, Pulmonary Embolism 2.0-3.0Prevention of systemic embolism from: Tissue heart valves 2.0-3.0 Acute myocardial infarction (to prevent systemic embolism) 2.0-3.0 AMI (to prevent recurrent AR) 2.5-3.5Valvular heart disease 2.0-3.0 Atrial fibrillation 2.0-3.0Mechanical prosthetic valves (high risk) 2.5-3.5Bileaflet mechanical valve in aortic position 2.0-3.0Presence of Lupus Anticoagulant orAntiphospholipid Antibodies 2.5-3.5PANIC VALUE: GREATER THAN OR EQUAL TO 4.5 Performed By: #### L 200.1602 ####ML [address] [address] PT Coag (PPP) [Time] 19.2 s High 9.4-12.5 [facility] Comment on above: Order Comment: Comme nt: DAILY INR. Performed By: #### L 200.1602 ####[address] [address] BMPon 10-29-2022 Anion gap [Moles/Vol] 18.5 mmol/L Normal 15-22 [facility] Comment on above: Performed By: #### L 100.0010 ####ML [address] [address] Calcium [Mass/Vol] 8.6 mg/dL Low 8.8-10.2 [facility] Comment on above: Performed By: #### L 100.0010 ####[facility] [id number] [place] [address] Chloride [Moles/Vol] 93 mmol/L Low 98-107 [facility] Comment on above: Performed By: #### L 100.0010 ####[address] [address] CO2 [Moles/Vol] 29 mmol/L Normal 22-29 [facility] Comment on above: Performed By: #### L 100.0010 ####[address] [address] Creatinine [Mass/Vol] 2.90 mg/dL High 0.70-1.20 [facility] Comment on above: Performed By: #### L 100.0010 ####[address] [address] eGFR if AFR TIFFANY 26 [facility] Comment on above: Result Comment: eGFR >= 60 Indicates normal kidney function. * eGFR IS AN ESTIMATE * (AFR TIFFANY = ) (non-AFR AM = NON-) MDRD calculation used in the eGFR should not be used to dose medications. For further limitations of the eGFR please refer to the Physician Website or the National Kidney Disease Education Program website (www.nkdep.nih.gov). Performed By: #### L 100.0010 ####[address] [address] eGFR nonAFR Tiffany 22 [facility] Comment on above: Performed By: #### L 100.0010 ####[address] [address] Glucose [Mass/Vol] 222 mg/dL High 82-115 [facility] Comment on above: Performed By: #### L 100.0010 ####[address] [address] Potassium [Moles/Vol] 3.5 mmol/L Normal 3.5-5.0 [facility] Comment on above: Performed By: #### L 100.0010 ####[facility] [id number] [place] [address] Sodium [Moles/Vol] 137 mmol/L Normal 135-145 [facility] Comment on above: Performed By: #### L 100.0010 ####[address] [address] Urea nitrogen [Mass/Vol] 76 mg/dL High 8-23 [facility] Comment on above: Performed By: #### L 100.0010 ####ML - [id number] [place] [address] CBCon 10-29-2022 BASO# 0.00 x10(3) Normal 0.00-0.10 [facility] Comment on above: Performed By: #### L 200.0010 ####ML - [id number] [place] [address] Basophils/100 WBC (Bld) 0.5 % Normal 0.0-1.0 [facility] Comment on above: Performed By: #### L 200.0010 ####ML - [id number] [place] [address] EOS# 0.10 x10(3) Normal 0.00-0.54 [facility] Comment on above: Performed By: #### L 200.0010 ####ML - [id number] [place] [address] Eosinophils/100 WBC (Bld) 1.5 % Normal 0.5-4.9 [facility] Comment on above: Performed By: #### L 200.0010 ####ML - [id number] [place] [address] Erythrocyte distribution width (RBC) [Ratio] 14.8 % Normal 12.7-15.3 [facility] Comment on above: Performed By: #### L 200.0010 ####ML - [id number] [place] [address] Hematocrit (Bld) [Volume fraction] 32.6 % Low 42.0-51.0 [facility] Comment on above: Performed By: #### L 200.0010 ####ML - [id number] [place] [address] Hemoglobin (Bld) [Mass/Vol] 10.7 g/dL Low 14.0-17.2 [facility] Comment on above: Performed By: #### L 200.0010 ####ML - [id number] [place] [address] LYMPH# 1.40 x10(3) Normal 1.00-3.50 [facility] Comment on above: Performed By: #### L 200.0010 ####ML [facility] [id number] [place] [address] Lymphocytes/100 WBC (Bld) 19.7 % Normal 16.0-48.0 [facility] Comment on above: Performed By: #### L 200.0010 ####ML [facility] [id number] [place] [address] MCH (RBC) [Entitic mass] 29.2 pg Normal 28.8-32.2 [facility] Comment on above: Performed By: #### L 200.0010 ####ML [facility] [id number] [place] [address] [id number] MCHC (RBC) [Mass/Vol] 32.9 g/dL Low 33.0-36.0 [facility] Comment on above: Performed By: #### L 200.0010 ####ML [facility] [id number] [place] [address] [id number] MCV (RBC) [Entitic vol] 88.7 fL Normal 80.0-94.0 [facility] Comment on above: Performed By: #### L 200.0010 ####ML [facility] [id number] [place] [address] [id number] MONO# 0.90 x10(3) High 0.30-0.80 [facility] Comment on above: Performed By: #### L 200.0010 ####ML [facility] [id number] [place] [address] [id number] Monocytes/100 WBC (Bld) 12.2 % High 4.3-11.2 [facility] Comment on above: Performed By: #### L 200.0010 ####ML [facility] [id number] [place] [address] [id number] NEUT# 4.80 x10(3) Normal 1.40-6.50 [facility] Comment on above: Performed By: #### L 200.0010 ####ML [address] [address] Neutrophils/100 WBC (Bld) 66.1 % Normal 45.0-73.0 [facility] Comment on above: Performed By: #### L 200.0010 ####ML - [id number] [place] [address] Platelet mean volume (Bld) [Entitic vol] 7.1 fL Low 7.4-9.2 [facility] Comment on above: Performed By: #### L 200.0010 ####ML - IAASPXSKMG[address] [place] [address] 83290 PLT 277 X10(3) Normal 150-450 [facility] Comment on above: Performed By: #### L 200.0010 ####ML - PMBRJOOLWB[address] [place] [address] 91365 RBC 3.67 x10(6) Low 4.80-5.50 [facility] Comment on above: Performed By: #### L 200.0010 ####ML - GKGQQANDKP770[address] [place] [address] 16307 WBC 7.3 x10(3) Normal 4.5-10.0 [facility] Comment on above: Performed By: #### L 200.0010 ####ML - KHJGZZWCXK[address] [place] [address] 9[address]51 GLUCOSE FSon 10-29-2022 Glucose [Mass/Vol] 247 mg/dL High 70-110 [facility] Comment on above: Performed By: #### L 100.0070 ####ML - XMCATQNVIE[address] [place] [address] 62669 Glucose [Mass/Vol] 123 mg/dL High 70-110 [facility] Comment on above: Performed By: #### L 100.0070 ####ML - EGSUFPOHYC509[address] [place] [address] 82475 Glucose [Mass/Vol] 366 mg/dL High 70-110 [facility] Comment on above: Performed By: #### L 100.0070 ####ML - [facility] BJGMSFKHNC[address] [place] [address] 98958 HEPATIC PANELon 10-29-2022 A:G RATIO 1.03 Low 1.1-2.5 [facility] Comment on above: Performed By: #### L 100.0030 ####ML - [facility] AEHCBTZTMT[address] [place] [address] 55890 Albumin [Mass/Vol] 3.3 g/dL Low 3.5-5.2 [facility] Comment on above: Performed By: #### L 100.0030 ####[facility] [address] [place] [address] 91435 ALK. PHOS 59 U/L Normal 40-130 [facility] Comment on above: Performed By: #### L 100.0030 ####ML [facility] DPNEYIQWNY[address] [place] [address] 03031 ALT [Catalytic activity/Vol] 6 U/L Normal 5-41 [facility] Comment on above: Performed By: #### L 100.0030 ####[address] [address] AST [Catalytic activity/Vol] 15 U/L Normal 5-40 [facility] Comment on above: Performed By: #### L 100.0030 ####[address] [address] Bilirubin [Mass/Vol] 0.6 mg/dL Normal 0.2-1.2 [facility] Comment on above: Performed By: #### L 100.0030 ####[address] [address] DIRECT BILIRUBI <0.2 Normal 0.0-0.3 [facility] Comment on above: Performed By: #### L 100.0030 ####[address] [address] Globulin (S) [Mass/Vol] 3.2 g/dL Normal 1.5-4.5 [facility] Comment on above: Performed By: #### L 100.0030 ####[address] [address] Protein [Mass/Vol] 6.5 g/dL Normal 6.4-8.3 [facility] Comment on above: Performed By: #### L 100.0030 ####[address] [address] PTon 02-16-2023 INR Coag (PPP) [Relative time] 1.5 {INR} High 0.8-1.1 [facility] Comment on above: Order Comment: PIA MONDRAGON REDRAW Result Comment: CO UMADIN PROTOCOLSINR values are generated for use in patients on coumadin.INR values stabilize 7 days after the start of coumadin orchanges in coumadin dosage. The usual TARGET/INR range is:INDICATION INR RANGEProphylaxis/treatment of: Venous Thrombosis, Pulmonary Embolism 2.0-3.0Prevention of systemic embolism from: Tissue heart valves 2.0-3.0 Acute myocardial infarction (to prevent systemic embolism) 2.0-3.0 AMI (to prevent recurrent AR) 2.5-3.5Valvular heart disease 2.0-3.0 Atrial fibrillation 2.0-3.0Mechanical prosthetic valves (high risk) 2.5-3.5Bileaflet mechanical valve in aortic position 2.0-3.0Presence of Lupus Anticoagulant orAntiphospholipid Antibodies 2.5-3.5PANIC VALUE: GREATER THAN OR EQUAL TO 4.5 Performed By: #### L 200.1602 ####ML - [id number] [place] [address] PT Coag (PPP) [Time] 16.9 s High 9.4-12.5 [facility] Comment on above: Order Comment: PIA MONDRAGON REDRAW Performed By: #### L 200.1602 ####ML - [id number] [place] [address] BMPon 10-28-2022 Anion gap [Moles/Vol] 17.4 mmol/L Normal 15-22 [facility] Comment on above: Performed By: #### L 100.0010 ####ML - WIHPCHREMS099 [place] [address] Calcium [Mass/Vol] 9.1 mg/dL Normal 8.8-10.2 [facility] Comment on above: Performed By: #### L 100.0010 ####ML - QMQHHSKIQC064 [place] [address] Chloride [Moles/Vol] 93 mmol/L Low 98-107 [facility] Comment on above: Performed By: #### L 100.0010 ####[facility] XFBOTKLNEZ026 [place] [address] CO2 [Moles/Vol] 29 mmol/L Normal 22-29 [facility] Comment on above: Performed By: #### L 100.0010 ####[facility] BFBBEMNLUO[address] [place] [address] 53194 Creatinine [Mass/Vol] 2.49 mg/dL High 0.70-1.20 [facility] Comment on above: Performed By: #### L 100.0010 ####ML [facility] UUEAOOKYKE[address] [place] [address] 72684 eGFR if AFR TIFFANY 31 [facility] Comment on above: Result Comment: eGFR >= 60 Indicates normal kidney function. * eGFR IS AN ESTIMATE * (AFR TIFFANY = ) (non-AFR AM = NON-) MDRD calculation used in the eGFR should not be used to dose medications. For further limitations of the eGFR please refer to the Physician Website or the National Kidney Disease Education Program website (www.nkdep.nih.gov). Performed By: #### L 100.0010 ####[facility] OWYCPHONJC337 [place] [address] eGFR nonAFR Tiffany 26 [facility] Comment on above: Performed By: #### L 100.0010 ####ML [facility] [id number] [place] [address] Glucose [Mass/Vol] 208 mg/dL High 82-115 [facility] Comment on above: Performed By: #### L 100.0010 ####[facility] OEBOKTMTAQ916 [place] [address] Potassium [Moles/Vol] 3.4 mmol/L Low 3.5-5.0 [facility] Comment on above: Performed By: #### L 100.0010 ####ML - BPMBTIGBVS381 [place] [address] Sodium [Moles/Vol] 136 mmol/L Normal 135-145 [facility] Comment on above: Performed By: #### L 100.0010 ####ML - UZHJXJAGWD960[address] [place] [address] 25776 Urea nitrogen [Mass/Vol] 71 mg/dL High 8-23 [facility] Comment on above: Performed By: #### L 100.0010 ####ML - WQWZNREHTO425[address] [place] [address] 95068 CBCon 10-28-2022 BASO# 0.10 x10(3) Normal 0.00-0.10 [facility] Comment on above: Order Comment: PREV SPEC CLOTTED Performed By: #### L 200.0010 ####ML [facility] GZFGSPIFQH[address] [place] [address] 97227 Basophils/100 WBC (Bld) 1.1 % High 0.0-1.0 [facility] Comment on above: Order Comment: PREV SPEC CLOTTED Performed By: #### L 200.0010 ####ML [facility] HRIMEBYGYN[address] [place] [address] 15591 EOS# 0.10 x10(3) Normal 0.00-0.54 [facility] Comment on above: Order Comment: PREV SPEC CLOTTED Performed By: #### L 200.0010 ####ML [facility] KEORIKFCDD[address] [place] [address] 59393 Eosinophils/100 WBC (Bld) 0.8 % Normal 0.5-4.9 [facility] Comment on above: Order Comment: PREV SPEC CLOTTED Performed By: #### L 200.0010 ####ML [facility] VKRCQDRXNX[address] [place] [address] Erythrocyte distribution width (RBC) [Ratio] 14.7 % Normal 12.7-15.3 [facility] Comment on above: Order Comment: PREV SPEC CLOTTED Performed By: #### L 200.0010 ####ML [facility] KDTTEGEURJ[address] [place] [address] 39495 Hematocrit (Bld) [Volume fraction] 33.7 % Low 42.0-51.0 [facility] Comment on above: Order Comment: PREV SPEC CLOTTED Performed By: #### L 200.0010 ####ML - HEJVJRBRQC[address] [place] [address] 00312 Hemoglobin (Bld) [Mass/Vol] 11.1 g/dL Low 14.0-17.2 [facility] Comment on above: Order Comment: PREV SPEC CLOTTED Performed By: #### L 200.0010 ####ML - FHHSBOYNJW[address] [place] [address] 28238 LYMPH# 1.50 x10(3) Normal 1.00-3.50 [facility] Comment on above: Order Comment: PREV SPEC CLOTTED Performed By: #### L 200.0010 ####ML [address] [address] Lymphocytes/100 WBC (Bld) 19.3 % Normal 16.0-48.0 [facility] Comment on above: Order Comment: PREV SPEC CLOTTED Performed By: #### L 200.0010 ####ML - NLPGDLONXB43144 [place] [address] 47226 MCH (RBC) [Entitic mass] 29.4 pg Normal 28.8-32.2 [facility] Comment on above: Order Comment: PREV SPEC CLOTTED Performed By: #### L 200.0010 ####ML [facility] QZWJYSMGDJ[address] [place] [address] 87288 MCHC (RBC) [Mass/Vol] 33.1 g/dL Normal 33.0-36.0 [facility] Comment on above: Order Comment: PREV SPEC CLOTTED Performed By: #### L 200.0010 ####ML - TGCJKTBZSC[address] [place] [address] 34871 MCV (RBC) [Entitic vol] 88.9 fL Normal 80.0-94.0 [facility] Comment on above: Order Comment: PREV SPEC CLOTTED Performed By: #### L 200.0010 ####ML [facility] ZOPVHTNGNY[address] [place] [address] 33995 MONO# 0.80 x10(3) Normal 0.30-0.80 [facility] Comment on above: Order Comment: PREV SPEC CLOTTED Performed By: #### L 200.0010 ####ML - [facility] [id number] [place] [address] Monocytes/100 WBC (Bld) 10.2 % Normal 4.3-11.2 [facility] Comment on above: Order Comment: PREV SPEC CLOTTED Performed By: #### L 200.0010 ####ML - [facility] KRDURCSVJI[address] [place] [address] NEUT# 5.50 x10(3) Normal 1.40-6.50 [facility] Comment on above: Order Comment: PREV SPEC CLOTTED Performed By: #### L 200.0010 ####ML - [facility] EAZVABNKMZ[address] [place] [address] Neutrophils/100 WBC (Bld) 68.6 % Normal 45.0-73.0 [facility] Comment on above: Order Comment: PREV SPEC CLOTTED Performed By: #### L 200.0010 ####ML - [facility] [id number] [place] [address] Platelet mean volume (Bld) [Entitic vol] 6.8 fL Low 7.4-9.2 [facility] Comment on above: Order Comment: PREV SPEC CLOTTED Performed By: #### L 200.0010 ####ML - [facility] JCYMWAZJHG[address] [place] [address] PLT 278 X10(3) Normal 150-450 [facility] Comment on above: Order Comment: PREV SPEC CLOTTED Performed By: #### L 200.0010 ####ML - [facility] EFLXPIKNDZ904 [place] [address] RBC 3.79 x10(6) Low 4.80-5.50 [facility] Comment on above: Order Comment: PREV SPEC CLOTTED Performed By: #### L 200.0010 ####ML - [facility] IQIJCYGNOT975 [place] [address] WBC 8.0 x10(3) Normal 4.5-10.0 [facility] Comment on above: Order Comment: PREV SPEC CLOTTED Performed By: #### L 200.0010 ####ML - GPHVBCTEJO406 [place] [address] GLUCOSE FSon 10-28-2022 Glucose [Mass/Vol] 244 mg/dL High 70-110 [facility] Comment on above: Performed By: #### L 100.0070 ####ML - BILDYIBKSI548 [place] [address] Glucose [Mass/Vol] 127 mg/dL High 70-110 [facility] Comment on above: Performed By: #### L 100.0070 ####ML - VMPYELVOUX356 [place] [address] Glucose [Mass/Vol] 360 mg/dL High 70-110 [facility] Comment on above: Performed By: #### L 100.0070 ####ML [facility] XEFXSPKKOB[address] [place] [address] 39334 HEPATIC PANELon 10-28-2022 A:G RATIO 1.28 Normal 1.1-2.5 [facility] Comment on above: Performed By: #### L 100.0030 ####ML [facility] OCHFH[address]OBY[address] [place] [address] 52071 Albumin [Mass/Vol] 3.6 g/dL Normal 3.5-5.2 [facility] Comment on above: Performed By: #### L 100.0030 ####ML [facility] RNUIMTYGZA457 [place] [address] ALK. PHOS 62 U/L Normal 40-130 [facility] Comment on above: Performed By: #### L 100.0030 ####ML - YCBLKJYLXF[address] [place] [address] 56103 ALT [Catalytic activity/Vol] 8 U/L Normal 5-41 [facility] Comment on above: Performed By: #### L 100.0030 ####ML [facility] MEUEGJAUTJ162 [place] [address] AST [Catalytic activity/Vol] 21 U/L Normal 5-40 [facility] Comment on above: Performed By: #### L 100.0030 ####ML [facility] HMZYEWKKCN[address] [place] [address] 13121 Bilirubin [Mass/Vol] 0.7 mg/dL Normal 0.2-1.2 [facility] Comment on above: Performed By: #### L 100.0030 ####ML - [facility] MAWVVQWCGW563 [place] [address] DIRECT BILIRUBI <0.2 Normal 0.0-0.3 [facility] Comment on above: Performed By: #### L 100.0030 ####ML - QPTTDTAGPQ068 [place] [address] Globulin (S) [Mass/Vol] 2.8 g/dL Normal 1.5-4.5 [facility] Comment on above: Performed By: #### L 100.0030 ####ML - YHXMUVVLOR869 [place] [address] Protein [Mass/Vol] 6.4 g/dL Normal 6.4-8.3 [facility] Comment on above: Performed By: #### L 100.0030 ####ML - LDKLLDYVGO713 [place] [address] PTon 10-28-2022 INR Coag (PPP) [Relative time] 1.4 {INR} High 0.8-1.1 [facility] Comment on above: Order Comment: Comme nt: DAILY INR Result Comment: CO UMADIN PROTOCOLSINR values are generated for use in patients on coumadin.INR values stabilize 7 days after the start of coumadin orchanges in coumadin dosage. The usual TARGET/INR range is:INDICATION INR RANGEProphylaxis/treatment of: Venous Thrombosis, Pulmonary Embolism 2.0-3.0Prevention of systemic embolism from: Tissue heart valves 2.0-3.0 Acute myocardial infarction (to prevent systemic embolism) 2.0-3.0 AMI (to prevent recurrent AR) 2.5-3.5Valvular heart disease 2.0-3.0 Atrial fibrillation 2.0-3.0Mechanical prosthetic valves (high risk) 2.5-3.5Bileaflet mechanical valve in aortic position 2.0-3.0Presence of Lupus Anticoagulant orAntiphospholipid Antibodies 2.5-3.5PANIC VALUE: GREATER THAN OR EQUAL TO 4.5 Performed By: #### L 200.1602 ####[address] [address] PT Coag (PPP) [Time] 15.3 s High 9.4-12.5 [facility] Comment on above: Order Comment: Comme nt: DAILY INR Performed By: #### L 200.1602 ####[address] [address] BMPon 10-27-2022 Anion gap [Moles/Vol] 21.8 mmol/L Normal 15-22 [facility] Comment on above: Performed By: #### L 100.0010, L100.0030 ####[address] [address] Calcium [Mass/Vol] 9.2 mg/dL Normal 8.8-10.2 [facility] Comment on above: Performed By: #### L 100.0010, L100.0030 ####[address] [address] Chloride [Moles/Vol] 95 mmol/L Low 98-107 [facility] Comment on above: Performed By: #### L 100.0010, L100.0030 ####[address] [address] CO2 [Moles/Vol] 26 mmol/L Normal 22-29 [facility] Comment on above: Performed By: #### L 100.0010, L100.0030 ####[address] [address] Creatinine [Mass/Vol] 2.72 mg/dL High 0.70-1.20 [facility] Comment on above: Performed By: #### L 100.0010, L100.0030 ####[address] [address] eGFR if AFR TIFFANY 28 Normal [facility] Comment on above: Result Comment: eGFR >= 60 Indicates normal kidney function. * eGFR IS AN ESTIMATE * (AFR TIFFANY = ) (non-AFR AM = NON-) MDRD calculation used in the eGFR should not be used to dose medications. For further limitations of the eGFR please refer to the Physician Website or the National Kidney Disease Education Program website (www.nkdep.nih.gov). Performed By: #### L 100.0010, L100.0030 ####ML - HWJOEJZHDP983 [place] [address] eGFR nonAFR Tiffany 23 Normal [facility] Comment on above: Performed By: #### L 100.0010, L100.0030 ####ML - KOEKUPNDJE[address] [place] [address]25 Glucose [Mass/Vol] 177 mg/dL High 82-115 [facility] Comment on above: Performed By: #### L 100.0010, L100.0030 ####ML - HQCQRILTUH[address] [place] [address] 92290 Potassium [Moles/Vol] 3.8 mmol/L Normal 3.5-5.0 [facility] Comment on above: Performed By: #### L 100.0010, L100.0030 #### - ICERAGCZUH832 [place] [address] Sodium [Moles/Vol] 139 mmol/L Normal 135-145 [facility] Comment on above: Performed By: #### L 100.0010, L100.0030 ####ML - ZIZIFKOJWN371 [place] [address] Urea nitrogen [Mass/Vol] 73 mg/dL High 8-23 [facility] Comment on above: Performed By: #### L 100.0010, L100.0030 ####[facility] IHEDN[address]JIR[address] [place] [address] 96445 CBCon 10-27-2022 BASO# 0.00 x10(3) Normal 0.00-0.10 [facility] Comment on above: Performed By: #### L 200.0010 ####ML - QUWPNHEFTA488 [place] [address] Basophils/100 WBC (Bld) 0.5 % Normal 0.0-1.0 [facility] Comment on above: Performed By: #### L 200.0010 ####ML - AJWEFCROFS[address] [place] [address] 12964 EOS# 0.10 x10(3) Normal 0.00-0.54 [facility] Comment on above: Performed By: #### L 200.0010 ####ML - QAVWVANEFM[address] [place] [address] 35907 Eosinophils/100 WBC (Bld) 1.7 % Normal 0.5-4.9 [facility] Comment on above: Performed By: #### L 200.0010 ####ML - YNWYGSPOQJ[address] [place] [address] 17071 Erythrocyte distribution width (RBC) [Ratio] 15.0 % Normal 12.7-15.3 [facility] Comment on above: Performed By: #### L 200.0010 ####ML - RWAQYKVKVH[address] [place] [address]150 Hematocrit (Bld) [Volume fraction] 31.9 % Low 42.0-51.0 [facility] Comment on above: Performed By: #### L 200.0010 ####ML - JGSBYBUHER[address] [place] [address] 05972 Hemoglobin (Bld) [Mass/Vol] 10.6 g/dL Low 14.0-17.2 [facility] Comment on above: Performed By: #### L 200.0010 ####ML - PCCOZYVJYP518 [place] [address] LYMPH# 1.60 x10(3) Normal 1.00-3.50 [facility] Comment on above: Performed By: #### L 200.0010 ####ML - WUUDIZRKZN[address] [place] [address] 20882 Lymphocytes/100 WBC (Bld) 24.1 % Normal 16.0-48.0 [facility] Comment on above: Performed By: #### L 200.0010 ####ML - ZMYRIGAGXR367 [place] [address] MCH (RBC) [Entitic mass] 30.0 pg Normal 28.8-32.2 [facility] Comment on above: Performed By: #### L 200.0010 ####ML [facility] MNATKCCGII[address] [place] [address] 13865 MCHC (RBC) [Mass/Vol] 33.3 g/dL Normal 33.0-36.0 [facility] Comment on above: Performed By: #### L 200.0010 ####ML - ITMQPJTGPQ[address] [place] [address] 80498 MCV (RBC) [Entitic vol] 90.1 fL Normal 80.0-94.0 [facility] Comment on above: Performed By: #### L 200.0010 ####ML [facility] TEHPCBTJUS[address] [place] [address] 07789 MONO# 0.90 x10(3) High 0.30-0.80 [facility] Comment on above: Performed By: #### L 200.0010 ####ML [facility] SEIIUPQCUY[address] [place] [address] 32248 Monocytes/100 WBC (Bld) 13.8 % High 4.3-11.2 [facility] Comment on above: Performed By: #### L 200.0010 ####ML [facility] QZHANFYGII[address] [place] [address] 45588 NEUT# 3.90 x10(3) Normal 1.40-6.50 [facility] Comment on above: Performed By: #### L 200.0010 ####ML [facility] GUXCMVZNVJ[address] [place] [address] 51302 Neutrophils/100 WBC (Bld) 59.9 % Normal 45.0-73.0 [facility] Comment on above: Performed By: #### L 200.0010 ####ML [facility] VCWEXXOCHO[address] [place] [address] 61841 Platelet mean volume (Bld) [Entitic vol] 7.9 fL Normal 7.4-9.2 [facility] Comment on above: Performed By: #### L 200.0010 ####ML - VUDKPGBOKD[address] [place] [address] PLT 288 X10(3) Normal 150-450 [facility] Comment on above: Performed By: #### L 200.0010 ####ML - THHPYHPZXI[address] [place] [address] RBC 3.53 x10(6) Low 4.80-5.50 [facility] Comment on above: Performed By: #### L 200.0010 ####ML - ZJENPLYUDE906 [place] [address] WBC 6.5 x10(3) Normal 4.5-10.0 [facility] Comment on above: Performed By: #### L 200.0010 ####ML - OCEBPBQKCI186 [place] [address] GLUCOSE FSon 10-27-2022 Glucose [Mass/Vol] 231 mg/dL High 70-110 [facility] Comment on above: Performed By: #### L 100.0070 ####ML - HLUSVXXUOR869 [place] [address] Glucose [Mass/Vol] 159 mg/dL High 70-110 [facility] Comment on above: Performed By: #### L 100.0070 ####ML - WBSXFTUYLX816 [place] [address] Glucose [Mass/Vol] 246 mg/dL High 70-110 [facility] Comment on above: Performed By: #### L 100.0070 ####ML - QEBVNRJRWE[address] [place] [address] [place] [address] HEPATIC PANELon 10-27-2022 A:G RATIO 1.23 Normal 1.1-2.5 [facility] Comment on above: Performed By: #### L 100.0010, L100.0030 ####ML - WHRJCWSNAJ476 [place] [address] Albumin [Mass/Vol] 3.7 g/dL Normal 3.5-5.2 [facility] Comment on above: Performed By: #### L 100.0010, L100.0030 #### - GFQGMCLUAY[address] [place] [address] ALK. PHOS 58 U/L Normal 40-130 [facility] Comment on above: Performed By: #### L 100.0010, L100.0030 ####[facility] SGFAGOUAIP784 [place] [address] ALT [Catalytic activity/Vol] 7 U/L Normal 5-41 [facility] Comment on above: Performed By: #### L 100.0010, L100.0030 ####[facility] [address]VY[address] [place] [address] AST [Catalytic activity/Vol] 19 U/L Normal 5-40 [facility] Comment on above: Performed By: #### L 100.0010, L100.0030 ####[facility] [address] [place] [address] Bilirubin [Mass/Vol] 0.7 mg/dL Normal 0.2-1.2 [facility] Comment on above: Performed By: #### L 100.0010, L100.0030 ####[facility] U[address]HXM[address] [place] [address] DIRECT BILIRUBI <0.2 Normal 0.0-0.3 [facility] Comment on above: Performed By: #### L 100.0010, L100.0030 ####[facility] NSVHIWLLFJ[address] [place] [address] 89[address] Globulin (S) [Mass/Vol] 3.0 g/dL Normal 1.5-4.5 [facility] Comment on above: Performed By: #### L 100.0010, L100.0030 ####[facility] HKXTQQADGR815 [place] [address] Protein [Mass/Vol] 6.7 g/dL Normal 6.4-8.3 [facility] Comment on above: Performed By: #### L 100.0010, L100.0030 ####[facility] [address]XSYTPSYT[address] [place] [address] 511[address] PTon 10-27-2022 INR Coag (PPP) [Relative time] 1.2 {INR} High 0.8-1.1 [facility] Comment on above: Result Comment: CO UMADIN PROTOCOLSINR values are generated for use in patients on coumadin.INR values stabilize 7 days after the start of coumadin orchanges in coumadin dosage. The usual TARGET/INR range is:INDICATION INR RANGEProphylaxis/treatment of: Venous Thrombosis, Pulmonary Embolism 2.0-3.0Prevention of systemic embolism from: Tissue heart valves 2.0-3.0 Acute myocardial infarction (to prevent systemic embolism) 2.0-3.0 AMI (to prevent recurrent AR) 2.5-3.5Valvular heart disease 2.0-3.0 Atrial fibrillation 2.0-3.0Mechanical prosthetic valves (high risk) 2.5-3.5Bileaflet mechanical valve in aortic position 2.0-3.0Presence of Lupus Anticoagulant orAntiphospholipid Antibodies 2.5-3.5PANIC VALUE: GREATER THAN OR EQUAL TO 4.5 Performed By: #### L 200.1602 ####ML - YVBVALSRCP605 [place] [address] PT Coag (PPP) [Time] 13.7 s High 9.4-12.5 [facility] Comment on above: Performed By: #### L 200.1602 ####ML - NBXJGPEURB439 [place] [address] BMPon 10-26-2022 Anion gap [Moles/Vol] 20.8 mmol/L Normal 15-22 [facility] Comment on above: Performed By: #### L 100.0030, L100.0010 ####ML - [id number] [place] [address] Calcium [Mass/Vol] 8.8 mg/dL Normal 8.8-10.2 [facility] Comment on above: Performed By: #### L 100.0030, L100.0010 ####ML - [id number] [place] [address] Chloride [Moles/Vol] 96 mmol/L Low 98-107 [facility] Comment on above: Performed By: #### L 100.0030, L100.0010 #### - [id number] [place] [address] CO2 [Moles/Vol] 24 mmol/L Normal 22-29 [facility] Comment on above: Performed By: #### L 100.0030, L100.0010 ####[facility] [id number] [place] [address] Creatinine [Mass/Vol] 2.80 mg/dL High 0.70-1.20 [facility] Comment on above: Performed By: #### L 100.0030, L100.0010 ####[facility] [id number] [place] [id number] eGFR if AFR TIFFANY 27 [facility] Comment on above: Result Comment: eGFR >= 60 Indicates normal kidney function. * eGFR IS AN ESTIMATE * (AFR TIFFANY = ) (non-AFR AM = NON-) MDRD calculation used in the eGFR should not be used to dose medications. For further limitations of the eGFR please refer to the Physician Website or the National Kidney Disease Education Program website (www.nkdep.nih.gov). Performed By: #### L 100.0030, L100.0010 ####[facility] [id number] [place] [address] eGFR nonAFR Tiffany 23 [facility] [facility] Comment on above: Performed By: #### L 100.0030, L100.0010 ####[facility] SFFUOMUVQL927 [place] [address] Glucose [Mass/Vol] 176 mg/dL High 82-115 [facility] Comment on above: Performed By: #### L 100.0030, L100.0010 ####[facility] XSUPQNMLAD569 [place] [address] Potassium [Moles/Vol] 3.8 mmol/L Normal 3.5-5.0 [facility] Comment on above: Performed By: #### L 100.0030, L100.0010 ####ML [facility] EHOTIXH[address] [place] [address]7 Sodium [Moles/Vol] 137 mmol/L Normal 135-145 [facility] Comment on above: Performed By: #### L 100.0030, L100.0010 ####ML [address] [address] Urea nitrogen [Mass/Vol] 70 mg/dL High 8-23 [facility] Comment on above: Performed By: #### L 100.0030, L100.0010 ####ML [address] [address] CBCon 10-26-2022 BASO# 0.10 x10(3) Normal 0.00-0.10 [facility] Comment on above: Performed By: #### L 200.0010 ####ML [address] [address] Basophils/100 WBC (Bld) 1.1 % High 0.0-1.0 [facility] Comment on above: Performed By: #### L 200.0010 ####ML [address] [address] EOS# 0.10 x10(3) Normal 0.00-0.54 [facility] Comment on above: Performed By: #### L 200.0010 ####ML [address] [address] Eosinophils/100 WBC (Bld) 1.5 % Normal 0.5-4.9 [facility] Comment on above: Performed By: #### L 200.0010 ####ML [address] [address] Erythrocyte distribution width (RBC) [Ratio] 14.9 % Normal 12.7-15.3 [facility] Comment on above: Performed By: #### L 200.0010 ####ML [address] [address] Hematocrit (Bld) [Volume fraction] 31.1 % Low 42.0-51.0 [facility] Comment on above: Performed By: #### L 200.0010 ####[address] [address] Hemoglobin (Bld) [Mass/Vol] 10.3 g/dL Low 14.0-17.2 [facility] Comment on above: Performed By: #### L 200.0010 ####ML [address] [address] LYMPH# 1.30 x10(3) Normal 1.00-3.50 [facility] Comment on above: Performed By: #### L 200.0010 ####[address] [address] Lymphocytes/100 WBC (Bld) 22.5 % Normal 16.0-48.0 [facility] Comment on above: Performed By: #### L 200.0010 ####[address] [address] MCH (RBC) [Entitic mass] 29.4 pg Normal 28.8-32.2 [facility] Comment on above: Performed By: #### L 200.0010 ####[address] [address] MCHC (RBC) [Mass/Vol] 33.0 g/dL Normal 33.0-36.0 [facility] Comment on above: Performed By: #### L 200.0010 ####ML [address] [address] MCV (RBC) [Entitic vol] 88.9 fL Normal 80.0-94.0 [facility] Comment on above: Performed By: #### L 200.0010 ####[address] [address] MONO# 0.80 x10(3) Normal 0.30-0.80 [facility] Comment on above: Performed By: #### L 200.0010 ####ML [address] [address] Monocytes/100 WBC (Bld) 13.5 % High 4.3-11.2 [facility] Comment on above: Performed By: #### L 200.0010 ####ML - [address] [address] NEUT# 3.70 x10(3) Normal 1.40-6.50 [facility] Comment on above: Performed By: #### L 200.0010 ####ML - IKCYRBGJDJ6[address] [place] [address] 559[address] Neutrophils/100 WBC (Bld) 61.4 % Normal 45.0-73.0 [facility] Comment on above: Performed By: #### L 200.0010 ####ML - RXHCXGZMWD30844 [place] [address] 36317 Platelet mean volume (Bld) [Entitic vol] 7.2 fL Low 7.4-9.2 [facility] Comment on above: Performed By: #### L 200.0010 ####ML - [address] [address] PLT 267 X10(3) Normal 150-450 [facility] Comment on above: Performed By: #### L 200.0010 ####ML - JUIUYKOKMK[address] [place] [address] 68243 RBC 3.50 x10(6) Low 4.80-5.50 [facility] Comment on above: Performed By: #### L 200.0010 ####ML - FCKEWKDDRX468[address] [place] [address]994 WBC 5.9 x10(3) Normal 4.5-10.0 [facility] Comment on above: Performed By: #### L 200.0010 ####ML - OHFOUIKZZD549[address] [place] [address]792 ECHO COMPLETEon 10-26-2022 ECHO COMPLETE Normal [facility] GLUCOSE FSon 10-26-2022 Glucose [Mass/Vol] 202 mg/dL High 70-110 [facility] Comment on above: Performed By: #### L 100.0070 ####ML - RUASFLPNMU11644 [place] [address]37 Glucose [Mass/Vol] 172 mg/dL High 70-110 [facility] Comment on above: Performed By: #### L 100.0070 ####ML - OOPRUBFQOE[address] [place] [address] Glucose [Mass/Vol] 253 mg/dL High 70-110 [facility] Comment on above: Performed By: #### L 100.0070 ####ML - OQSGDNWJST[address] [place] [address] HEPATIC PANELon 10-26-2022 A:G RATIO 1.19 Normal 1.1-2.5 [facility] Comment on above: Performed By: #### L 100.0030, L100.0010 ####ML - AMRFVCOHTT764[address] [place] [address] Albumin [Mass/Vol] 3.7 g/dL Normal 3.5-5.2 [facility] Comment on above: Performed By: #### L 100.0030, L100.0010 ####ML - DLPNSONCVB110[address] [place] [address]32 ALK. PHOS 65 U/L Normal 40-130 [facility] Comment on above: Performed By: #### L 100.0030, L100.0010 ####ML - GEZWDSWQWN[address] [place] [address]3426 ALT [Catalytic activity/Vol] 8 U/L Normal 5-41 [facility] Comment on above: Performed By: #### L 100.0030, L100.0010 ####ML - INKLDDRICZ[address] [place] [address]341 AST [Catalytic activity/Vol] 20 U/L Normal 5-40 [facility] Comment on above: Performed By: #### L 100.0030, L100.0010 ####ML - FFMLJUMQWW[address] [place] [address] Bilirubin [Mass/Vol] 0.6 mg/dL Normal 0.2-1.2 [facility] Comment on above: Performed By: #### L 100.0030, L100.0010 ####ML - YYIZZDVAFI608 [place] [address] DIRECT BILIRUBI <0.2 Normal 0.0-0.3 [facility] Comment on above: Performed By: #### L 100.0030, L100.0010 ####[facility] OZRSSSHIFP[address] [place] [address] Globulin (S) [Mass/Vol] 3.1 g/dL Normal 1.5-4.5 [facility] Comment on above: Performed By: #### L 100.0030, L100.0010 ####[facility] VUNPHYVPEM[address] [place] [address] 32314 Protein [Mass/Vol] 6.8 g/dL Normal 6.4-8.3 [facility] Comment on above: Performed By: #### L 100.0030, L100.0010 ####[address] [address] URINE CHLORIDEon 10-26-2022 URINE CHLORIDE 101.7 mmol/L Normal [facility] Comment on above: Result Comment: URIN BRYAN EXCRETION OF ELECTROLYTES VARIES SIGNIFICANTLY WITHDIETARY INTAKE. Performed By: #### L 100.0760, L100.0800, L100.0770, L100.0750 ####[address] [address] URINE CREATININon 10-26-2022 URINE CREATININ 30.6 mg/dL Low 39-259 [facility] Comment on above: Performed By: #### L 100.0760, L100.0800, L100.0770, L100.0750 ####[facility] TYAZWADFO[address] [place] [address] URINE POTASSIUMon 10-26-2022 URINE POTASSIUM 22.2 mmol/L Normal [facility] Comment on above: Result Comment: URIN BRYAN EXCRETION OF ELECTROLYTES VARIES SIGNIFICANTLY WITHDIETARY INTAKE. Performed By: #### L 100.0760, L100.0800, L100.0770, L100.0750 ####[address] [address] URINE SODIUM (Jacinto 02-13-2023 Sodium (U) [Moles/Vol] 100 mmol/L Normal [facility] Comment on above: Result Comment: URIN BRYAN EXCRETION OF ELECTROLYTES VARIES SIGNIFICANTLY WITHDIETARY INTAKE. Performed By: #### L 100.0760, L100.0800, L100.0770, L100.0750 #### - HRKPJWXTRV635 [place] [address] ARTERIAL BLOODon 10-25-2022 BE(B) -0.1 mmol/L Normal -2.0-2.0 [facility] Comment on above: Order Comment: NOTIF Y RT? Y Performed By: #### L 100.1060 ####ML - NVXMSAUEXS[address] [place] [address]32 BE(ecf) -0.3 mmol/L Normal -2.0-2.0 [facility] Comment on above: Order Comment: NOTIF Y RT? Y Performed By: #### L 100.1060 ####ML - GWNHROYHJL[address] [place] [address] 08265 BO2 15.8 mL/dL [facility] Comment on above: Order Comment: NOTIF Y RT? Y Performed By: #### L 100.1060 ####ML - MHNHOFVAIK[address] [place] [address] 03011 ctCO2 25.0 mmol/L Normal 23- [facility] Comment on above: Order Comment: NOTIF Y RT? Y Performed By: #### L 100.1060 ####ML [facility] LCGUCYZZWJ[address] [place] [address] 91190 ctO2 (a) 14.8 mL/dL [facility] Comment on above: Order Comment: NOTIF Y RT? Y Performed By: #### L 100.1060 ####ML [facility] ZLDBYODVRH[address] [place] [address]51 FIO2 21.0 % [facility] Comment on above: Order Comment: NOTIF Y RT? Y Performed By: #### L 100.1060 ####ML [facility] XXVKHOQRDA[address] [place] [address] 24564 HCO3-act 23.9 mmol/L Normal 22- [facility] Comment on above: Order Comment: NOTIF Y RT? Y Performed By: #### L 100.1060 ####ML - GWRGHKFXEE[address] [place] [address] HCO3-std 24.3 mmol/L Normal [facility] Comment on above: Order Comment: NOTIF Y RT? Y Performed By: #### L 100.1060 ####ML - VGIIFGVGMQ[address] [place] [address] Hematocrit (Bld) [Volume fraction] 34 % Low 42.0-51.0 [facility] Comment on above: Order Comment: NOTIF Y RT? Y Performed By: #### L 100.1060 ####ML - CHQPBNKQNM[address] [place] [address] Oxygen (Bld) [Partial pressure] 65.5 mm[Hg] Low 80-100 [facility] Comment on above: Order Comment: NOTIF Y RT? Y Performed By: #### L 100.1060 ####ML - UFZPHCSWIA[address] [place] [address] 45049 pCO2 36.5 mmHg Normal 35-45 [facility] Comment on above: Order Comment: NOTIF Y RT? Y Performed By: #### L 100.1060 ####ML - VPTWTHSJDU511 [place] [address] pH (Bld) 7.434 [pH] Normal 7.350-7.450 [facility] Comment on above: Order Comment: NOTIF Y RT? Y Performed By: #### L 100.1060 ####ML - MDXRHGAQZX[address] [place] [address] pO2/FIO2 3.12 mmHg/% [facility] Comment on above: Order Comment: NOTIF Y RT? Y Performed By: #### L 100.1060 ####ML - ESUHUIBOTL9[address] [place] [address] RTECH NMRRT [facility] Comment on above: Order Comment: NOTIF Y RT? Y Performed By: #### L 100.1060 ####ML - FXCKNINMXA461 [place] [address] sO2 92.7 % Low 95-98 [facility] Comment on above: Order Comment: NOTIF Y RT? Y Performed By: #### L 100.1060 ####ML [facility] YYFMQOWLFY554 [place] [address] tHb 11.4 g/dL Low 14.0-17.2 [facility] Comment on above: Order Comment: NOTIF Y RT? Y Performed By: #### L 100.1060 ####ML - RJRFOSGKOK[address] [place] [address] BMPon 10-25-2022 Anion gap [Moles/Vol] 16.2 mmol/L Normal 15-22 [facility] Comment on above: Performed By: #### L 100.0010 ####ML [facility] [place] [address] Calcium [Mass/Vol] 8.6 mg/dL Low 8.8-10.2 [facility] Comment on above: Performed By: #### L 100.0010 ####ML [address] [address] Chloride [Moles/Vol] 104 mmol/L Normal 98-107 [facility] Comment on above: Performed By: #### L 100.0010 ####ML - MLJWUMNYEA[address] [place] [address] 30559 CO2 [Moles/Vol] 25 mmol/L Normal 22-29 [facility] Comment on above: Performed By: #### L 100.0010 ####ML - [facility]H JAPAAQXSTL[address] [place] [address]35 Creatinine [Mass/Vol] 2.39 mg/dL High 0.70-1.20 [facility] Comment on above: Performed By: #### L 100.0010 ####ML [facility] [place] [address] 33753 eGFR if AFR TIFFANY 33 Normal [facility] Comment on above: Result Comment: eGFR >= 60 Indicates normal kidney function. * eGFR IS AN ESTIMATE * (AFR TIFFANY = ) (non-AFR AM = NON-) MDRD calculation used in the eGFR should not be used to dose medications. For further limitations of the eGFR please refer to the Physician Website or the National Kidney Disease Education Program website (www.nkdep.nih.gov). Performed By: #### L 100.0010 ####ML - JHQHFNLBXR158 [place] [address] eGFR nonAFR Tiffany 27 Normal [facility] Comment on above: Performed By: #### L 100.0010 ####ML [address] [address] Glucose [Mass/Vol] 92 mg/dL Normal 82-115 [facility] Comment on above: Performed By: #### L 100.0010 ####ML [address] [address] Potassium [Moles/Vol] 4.2 mmol/L Normal 3.5-5.0 [facility] Comment on above: Performed By: #### L 100.0010 ####[facility] KRX[address]JI[address] [place] [address]33 Sodium [Moles/Vol] 141 mmol/L Normal 135-145 [facility] Comment on above: Performed By: #### L 100.0010 ####ML [facility] RQJMGNULME[address] [place] [address] 11557 Urea nitrogen [Mass/Vol] 69 mg/dL High 8-23 [facility] Comment on above: Performed By: #### L 100.0010 ####ML [facility] PNEKABHGYM[address] [place] [address] 49882 CBCon 10-25-2022 BASO# 0.10 x10(3) Normal 0.00-0.10 [facility] Comment on above: Performed By: #### L 200.0010 ####[address] [address] Basophils/100 WBC (Bld) 1.0 % Normal 0.0-1.0 [facility] Comment on above: Performed By: #### L 200.0010 ####ML [facility] XFLHLJAWCL[address] [place] [address] 13945 EOS# 0.00 x10(3) Normal 0.00-0.54 [facility] Comment on above: Performed By: #### L 200.0010 ####ML [facility] ERGCLFBYXU[address] [place] [address]77 Eosinophils/100 WBC (Bld) 0.4 % Low 0.5-4.9 [facility] Comment on above: Performed By: #### L 200.0010 ####ML [facility] GRVECMZIEA[address] [place] [address] 73550 Erythrocyte distribution width (RBC) [Ratio] 15.2 % Normal 12.7-15.3 [facility] Comment on above: Performed By: #### L 200.0010 ####ML [facility] EIXGSWYDOH[address] [place] [address]284 Hematocrit (Bld) [Volume fraction] 32.5 % Low 42.0-51.0 [facility] Comment on above: Performed By: #### L 200.0010 ####ML [facility] PUEUFOWIZA[address] [place] [address] 71858 Hemoglobin (Bld) [Mass/Vol] 10.5 g/dL Low 14.0-17.2 [facility] Comment on above: Performed By: #### L 200.0010 ####ML [facility] SAHYTCUYSL[address] [place] [address]606 LYMPH# 0.90 x10(3) Low 1.00-3.50 [facility] Comment on above: Performed By: #### L 200.0010 ####ML [facility] QLRVTUXVPZ[address] [place] [address] 58575 Lymphocytes/100 WBC (Bld) 13.8 % Low 16.0-48.0 [facility] Comment on above: Performed By: #### L 200.0010 ####ML [facility] MEFXWXIECN[address] [place] [address] 46449 MCH (RBC) [Entitic mass] 28.9 pg Normal 28.8-32.2 [facility] Comment on above: Performed By: #### L 200.0010 ####ML - AMKNVLBEDG367 [place] [address] MCHC (RBC) [Mass/Vol] 32.3 g/dL Low 33.0-36.0 [facility] Comment on above: Performed By: #### L 200.0010 ####ML - DOLZOPTLZE[address] [place] [address]321 MCV (RBC) [Entitic vol] 89.5 fL Normal 80.0-94.0 [facility] Comment on above: Performed By: #### L 200.0010 ####ML - FNCZBDTURX[address] [place] [address] 76020 MONO# 0.80 x10(3) Normal 0.30-0.80 [facility] Comment on above: Performed By: #### L 200.0010 ####ML - [address] [address] Monocytes/100 WBC (Bld) 12.6 % High 4.3-11.2 [facility] Comment on above: Performed By: #### L 200.0010 ####ML - QPSMXKXYUC[address] [place] [address] 75502 NEUT# 4.60 x10(3) Normal 1.40-6.50 [facility] Comment on above: Performed By: #### L 200.0010 ####ML - SNUUKKHSBB938[address] [place] [address] 81244 Neutrophils/100 WBC (Bld) 72.2 % Normal 45.0-73.0 [facility] Comment on above: Performed By: #### L 200.0010 ####ML - BSIVUSGSKT[address] [place] [address] 24840 Platelet mean volume (Bld) [Entitic vol] 7.0 fL Low 7.4-9.2 [facility] Comment on above: Performed By: #### L 200.0010 ####ML - ZZACQMKVQJ[address] [place] [address] 80048 PLT 286 X10(3) Normal 150-450 [facility] Comment on above: Performed By: #### L 200.0010 ####ML - [facility] HUDSYVWURU[address] [place] [address] RBC 3.63 x10(6) Low 4.80-5.50 [facility] Comment on above: Performed By: #### L 200.0010 ####ML - [facility] VKUKMIYSPP[address] [place] [address] WBC 6.3 x10(3) Normal 4.5-10.0 [facility] Comment on above: Performed By: #### L 200.0010 ####ML - [facility] RMFSKFMZQF[address] [place] [address] 14062 EMERGENCY DEPARTMENT REPORTo n 10-25-2022 EMERGENCY DEPARTMENT REPORT Normal [facility] GLUCOSE FSon 10-25-2022 Glucose [Mass/Vol] 201 mg/dL High 70-110 [facility] Comment on above: Performed By: #### L 100.0070 ####ML - [facility] DTGMCNTPXL509 [place] [address] Glucose [Mass/Vol] 157 mg/dL High 70-110 [facility] Comment on above: Performed By: #### L 100.0070 ####ML - [facility] KSLSQILCUF428 [place] [address] Glucose [Mass/Vol] 273 mg/dL High 70-110 [facility] Comment on above: Performed By: #### L 100.0070 ####ML - [facility] JUXCGFSKHJ[address] [place] [address] 0[address]25 RAPID COVIDon 10-25-2022 SARS-CoV-2 (COVID-19) RNA CHER+probe Ql (Unsp spec) Negative Normal NEGATIVE [facility] Comment on above: Result Comment: THIS TEST HAS BEEN AUTHORIZED BY FDA UNDER AN EMERGENCY USEAUTHORIZATION (EUA). -NEGATIVE: NEGATIVE FOR COVID19 (SARS-CoV-2) BY PCRPOSITIVE: POSITIVE FOR COVID19 (SARS-CoV-2) BY PCRPRESUMPTIVE POSITIVE: POSITIVE BY SINGLE CLEMENT SARS-CoVTARGET. SARS-CoV-1 CANNOT BE EXCLUDED, BUT IS NOT CURRENTLYCIRCULATING IN [place]. Performed By: #### L 399.994 ####ML - KCNPJQQRON[address] [place] [address] 55920 BMPon 10-24-2022 Anion gap [Moles/Vol] 14.7 mmol/L Low 15-22 [facility] Comment on above: Performed By: #### L 100.0010, L100.0030 ####ML - ZXQORGUQSF[address] [place] [address] 97369 Calcium [Mass/Vol] 8.2 mg/dL Low 8.8-10.2 [facility] Comment on above: Performed By: #### L 100.0010, L100.0030 ####ML - DENAGCKITT860 [place] [address] Chloride [Moles/Vol] 105 mmol/L Normal 98-107 [facility] Comment on above: Performed By: #### L 100.0010, L100.0030 ####ML - CLSFFHCZHZ[address] [place] [address] 35881 CO2 [Moles/Vol] 25 mmol/L Normal 22-29 [facility] Comment on above: Performed By: #### L 100.0010, L100.0030 ####ML - XJAOXKWSCO[address] [place] [address] 06066 Creatinine [Mass/Vol] 2.49 mg/dL High 0.70-1.20 [facility] Comment on above: Performed By: #### L 100.0010, L100.0030 ####ML - ACEMCOLROM[address] [place] [address] 38561 eGFR if AFR TIFFANY 31 Normal [facility] Comment on above: Result Comment: eGFR >= 60 Indicates normal kidney function. * eGFR IS AN ESTIMATE * (AFR TIFFANY = ) (non-AFR AM = NON-) MDRD calculation used in the eGFR should not be used to dose medications. For further limitations of the eGFR please refer to the Physician Website or the National Kidney Disease Education Program website (www.nkdep.nih.gov). Performed By: #### L 100.0010, L100.0030 ####[facility] KNJOXZHNJM858 [place] [address] eGFR nonAFR Tiffany 26 Normal [facility] Comment on above: Performed By: #### L 100.0010, L100.0030 ####[facility] DQDXFBHVUG[address] [place] [address] 86443 Glucose [Mass/Vol] 142 mg/dL High 82-115 [facility] Comment on above: Performed By: #### L 100.0010, L100.0030 ####[address] [address] Potassium [Moles/Vol] 4.7 mmol/L Normal 3.5-5.0 [facility] Comment on above: Performed By: #### L 100.0010, L100.0030 ####[facility] OTPNQGKCNN[address] [place] [address] 44454 Sodium [Moles/Vol] 140 mmol/L Normal 135-145 [facility] Comment on above: Performed By: #### L 100.0010, L100.0030 ####[facility] [address] [place] [address] 58841 Urea nitrogen [Mass/Vol] 71 mg/dL High 8-23 [facility] Comment on above: Performed By: #### L 100.0010, L100.0030 ####[facility] [address]FDNJQBBJ[address] [place] [address] 41353 CBCon 10-24-2022 BASO# 0.10 x10(3) Normal 0.00-0.10 [facility] Comment on above: Performed By: #### L 200.0010 ####[facility] O[address]DZIP[address] [place] [address] 39065 Basophils/100 WBC (Bld) 1.1 % High 0.0-1.0 [facility] Comment on above: Performed By: #### L 200.0010 ####ML [facility] DAUAOGAULR[address] [place] [address] 40560 EOS# 0.00 x10(3) Normal 0.00-0.54 [facility] Comment on above: Performed By: #### L 200.0010 ####ML [facility] AVRPUMKPAM[address] [place] [address] 75072 Eosinophils/100 WBC (Bld) 0.7 % Normal 0.5-4.9 [facility] Comment on above: Performed By: #### L 200.0010 ####ML [facility] TGIYAVARYA[address] [place] [address] 96885 Erythrocyte distribution width (RBC) [Ratio] 15.1 % Normal 12.7-15.3 [facility] Comment on above: Performed By: #### L 200.0010 ####ML [address] [address] Hematocrit (Bld) [Volume fraction] 34.0 % Low 42.0-51.0 [facility] Comment on above: Performed By: #### L 200.0010 ####ML [facility] ZHAYRKAQBB[address] [place] [address] 32994 Hemoglobin (Bld) [Mass/Vol] 10.9 g/dL Low 14.0-17.2 [facility] Comment on above: Performed By: #### L 200.0010 ####ML [facility] DWIL[address]ZTAUI[address] [place] [address] 99211 LYMPH# 1.00 x10(3) Normal 1.00-3.50 [facility] Comment on above: Performed By: #### L 200.0010 ####ML [facility] XTNKXCTSOZ[address] [place] [address] 93666 Lymphocytes/100 WBC (Bld) 16.6 % Normal 16.0-48.0 [facility] Comment on above: Performed By: #### L 200.0010 ####ML [facility] CWIPSMQGYR[address] [place] [address] 23868 MCH (RBC) [Entitic mass] 28.8 pg Normal 28.8-32.2 [facility] Comment on above: Performed By: #### L 200.0010 ####ML - YXIKRHUUBY[address] [place] [address] 62878 MCHC (RBC) [Mass/Vol] 32.0 g/dL Low 33.0-36.0 [facility] Comment on above: Performed By: #### L 200.0010 ####ML - WDNJWLDRMD[address] [place] [address] 59047 MCV (RBC) [Entitic vol] 89.7 fL Normal 80.0-94.0 [facility] Comment on above: Performed By: #### L 200.0010 ####ML - [address] [address] MONO# 0.70 x10(3) Normal 0.30-0.80 [facility] Comment on above: Performed By: #### L 200.0010 ####ML - [address] [address] Monocytes/100 WBC (Bld) 11.8 % High 4.3-11.2 [facility] Comment on above: Performed By: #### L 200.0010 ####ML [address] [address] NEUT# 4.30 x10(3) Normal 1.40-6.50 [facility] Comment on above: Performed By: #### L 200.0010 ####ML [address] [address] Neutrophils/100 WBC (Bld) 69.8 % Normal 45.0-73.0 [facility] Comment on above: Performed By: #### L 200.0010 ####ML [facility] Y[address]ZHBUK[address] [place] [address] 30102 Platelet mean volume (Bld) [Entitic vol] 7.3 fL Low 7.4-9.2 [facility] Comment on above: Performed By: #### L 200.0010 ####ML [address] [address] PLT 300 X10(3) Normal 150-450 [facility] Comment on above: Performed By: #### L 200.0010 ####ML - [id number] [place] [address] RBC 3.79 x10(6) Low 4.80-5.50 [facility] Comment on above: Performed By: #### L 200.0010 ####ML - [id number] [place] [address] WBC 6.1 x10(3) Normal 4.5-10.0 [facility] Comment on above: Performed By: #### L 200.0010 ####ML [facility] [id number] [place] [address] CHEST-ONE VIEW ONLY - CXR1on 10-24-2022 CHEST-ONE VIEW ONLY - CXR1 Normal [facility] HEPATIC PANELon 10-24-2022 A:G RATIO 1.00 Low 1.1-2.5 [facility] Comment on above: Performed By: #### L 100.0010, L100.0030 ####ML - [id number] [place] [address] Albumin [Mass/Vol] 3.2 g/dL Low 3.5-5.2 [facility] Comment on above: Performed By: #### L 100.0010, L100.0030 ####ML [facility] [id number] [place] [address] ALK. PHOS 71 U/L Normal 40-130 [facility] Comment on above: Performed By: #### L 100.0010, L100.0030 ####ML - [id number] [place] [address] ALT [Catalytic activity/Vol] 10 U/L Normal 5-41 [facility] Comment on above: Performed By: #### L 100.0010, L100.0030 ####ML - [id number] [place] [address] AST [Catalytic activity/Vol] 26 U/L Normal 5-40 [facility] Comment on above: Performed By: #### L 100.0010, L100.0030 ####ML - [id number] [place] [address] Bilirubin [Mass/Vol] 0.2 mg/dL Normal 0.2-1.2 [facility] Comment on above: Performed By: #### L 100.0010, L100.0030 ####ML - [id number] [place] [id number] DIRECT BILIRUBI <0.2 Normal 0.0-0.3 [facility] Comment on above: Performed By: #### L 100.0010, L100.0030 ####ML - [id number] [place] [address] Globulin (S) [Mass/Vol] 3.2 g/dL Normal 1.5-4.5 [facility] Comment on above: Performed By: #### L 100.0010, L100.0030 ####ML - [address] [address] Protein [Mass/Vol] 6.4 g/dL Normal 6.4-8.3 [facility] Comment on above: Performed By: #### L 100.0010, L100.0030 ####ML - [id number] [place] [address] PRO-BNPon 10-24-2022 Natriuretic peptide B (Bld) [Mass/Vol] 3266 pg/mL Normal [facility] Comment on above: Result Comment: HF U NLIKELY: NT-PRO BNP <300 pg/mLHF LIKELY: NT-PRO BNP >450 pg/mL (AGE <50) NT-PRO BNP >900 pg/mL (AGE 50-75) NT-PRO BNP >1800 pg/mL (AGE >75)HF VERY LIKELY: NT-PRO BNP >10,000 pg/mLSOURCE: PRIDE ALGORITHM FOR PRO-BNP; CRITICAL PATHWAYS INCARDIOLOGY VOLUME 3, NUMBER 4; AUGUST 2004 Performed By: #### L 301.0460, L301.0120 ####ML - [id number] [place] [address] PTon 10-24-2022 INR Coag (PPP) [Relative time] 1.8 {INR} High 0.8-1.1 [facility] Comment on above: Result Comment: CO UMADIN PROTOCOLSINR values are generated for use in patients on coumadin.INR values stabilize 7 days after the start of coumadin orchanges in coumadin dosage. The usual TARGET/INR range is:INDICATION INR RANGEProphylaxis/treatment of: Venous Thrombosis, Pulmonary Embolism 2.0-3.0Prevention of systemic embolism from: Tissue heart valves 2.0-3.0 Acute myocardial infarction (to prevent systemic embolism) 2.0-3.0 AMI (to prevent recurrent AR) 2.5-3.5Valvular heart disease 2.0-3.0 Atrial fibrillation 2.0-3.0Mechanical prosthetic valves (high risk) 2.5-3.5Bileaflet mechanical valve in aortic position 2.0-3.0Presence of Lupus Anticoagulant orAntiphospholipid Antibodies 2.5-3.5PANIC VALUE: GREATER THAN OR EQUAL TO 4.5 Performed By: #### L 200.1602, L200.1642 ####ML - [id number] [place] [address] PT Coag (PPP) [Time] 20.3 s High 9.4-12.5 [facility] Comment on above: Performed By: #### L 200.1602, L200.1642 ####ML - [id number] [place] [address] PTTon 10-24-2022 aPTT Coag (Bld) [Time] 29.9 s Normal 25.1-36.5 [facility] Comment on above: Result Comment: Hepa rin Protocol Therapeutic Range = 54.0-90.0 secs Performed By: #### L 200.1602, L200.1642 ####ML - [id number] [place] [address] TROPONIN Ton 10-24-2022 Troponin T.cardiac [Mass/Vol] 0.057 ug/L High 0-0.010 [facility] Comment on above: Result Comment: NOTE : * Results of 0.011 - 0.099 ng/mL are defined asindeterminate. Results of >/= 0.100 ng/mL are defined as positive.*Indeterminate value is considered an abnormal value andindicative of myocardial damage. This may or may notbe secondary to myocardial ischemia or myocardialnecrosis(AMI). Serial testing of troponin, clinicalcorrelation, including EKG or imaging studies, and riskstratification is additionally required.Source: WHO criteria cutoff for myocardial necrosis(AMI). Performed By: #### L 301.0460, L301.0120 ####ML [facility] [id number] [place] [address] PTon 10-22-2022 INR Coag (PPP) [Relative time] 1.5 {INR} High 0.8-1.1 [facility] Comment on above: Result Comment: CO UMADIN PROTOCOLSINR values are generated for use in patients on coumadin.INR values stabilize 7 days after the start of coumadin orchanges in coumadin dosage. The usual TARGET/INR range is:INDICATION INR RANGEProphylaxis/treatment of: Venous Thrombosis, Pulmonary Embolism 2.0-3.0Prevention of systemic embolism from: Tissue heart valves 2.0-3.0 Acute myocardial infarction (to prevent systemic embolism) 2.0-3.0 AMI (to prevent recurrent AR) 2.5-3.5Valvular heart disease 2.0-3.0 Atrial fibrillation 2.0-3.0Mechanical prosthetic valves (high risk) 2.5-3.5Bileaflet mechanical valve in aortic position 2.0-3.0Presence of Lupus Anticoagulant orAntiphospholipid Antibodies 2.5-3.5PANIC VALUE: GREATER THAN OR EQUAL TO 4.5 Performed By: #### L 200.1602 ####ML [facility] [id number] [place] [address] PT Coag (PPP) [Time] 17.3 s High 9.4-12.5 [facility] Comment on above: Performed By: #### L 200.1602 ####ML - [id number] [place] [address] PT panel Coag (PPP)on 2022 INR Coag (PPP) [Relative time] 1.5 {INR} High 0.8 - 1.1 [facility] PT Coag (PPP) [Time] 17.3 s High 9.4 - 1 2.5 secs [facility] PTon 10-03-2022 INR Coag (PPP) [Relative time] 2.7 {INR} High 0.8-1.1 [facility] Comment on above: Result Comment: CO UMADIN PROTOCOLSINR values are generated for use in patients on coumadin.INR values stabilize 7 days after the start of coumadin orchanges in coumadin dosage. The usual TARGET/INR range is:INDICATION INR RANGEProphylaxis/treatment of: Venous Thrombosis, Pulmonary Embolism 2.0-3.0Prevention of systemic embolism from: Tissue heart valves 2.0-3.0 Acute myocardial infarction (to prevent systemic embolism) 2.0-3.0 AMI (to prevent recurrent AR) 2.5-3.5Valvular heart disease 2.0-3.0 Atrial fibrillation 2.0-3.0Mechanical prosthetic valves (high risk) 2.5-3.5Bileaflet mechanical valve in aortic position 2.0-3.0Presence of Lupus Anticoagulant orAntiphospholipid Antibodies 2.5-3.5PANIC VALUE: GREATER THAN OR EQUAL TO 4.5 Performed By: #### L 200.1602 ####ML - [facility] [id number] [place] [address] PT Coag (PPP) [Time] 30.0 s High 9.4-12.5 [facility] Comment on above: Performed By: #### L 200.1602 ####ML - [facility] [id number] [place] [address] PTon 09-11-2022 INR Coag (PPP) [Relative time] 1.8 {INR} High 0.8-1.1 [facility] Comment on above: Result Comment: CO UMADIN PROTOCOLSINR values are generated for use in patients on coumadin.INR values stabilize 7 days after the start of coumadin orchanges in coumadin dosage. The usual TARGET/INR range is:INDICATION INR RANGEProphylaxis/treatment of: Venous Thrombosis, Pulmonary Embolism 2.0-3.0Prevention of systemic embolism from: Tissue heart valves 2.0-3.0 Acute myocardial infarction (to prevent systemic embolism) 2.0-3.0 AMI (to prevent recurrent AR) 2.5-3.5Valvular heart disease 2.0-3.0 Atrial fibrillation 2.0-3.0Mechanical prosthetic valves (high risk) 2.5-3.5Bileaflet mechanical valve in aortic position 2.0-3.0Presence of Lupus Anticoagulant orAntiphospholipid Antibodies 2.5-3.5PANIC VALUE: GREATER THAN OR EQUAL TO 4.5 Performed By: #### L 200.1602 ####ML - [facility] [id number] [place] [address] PT Coag (PPP) [Time] 19.8 s High 9.4-12.5 [facility] Comment on above: Performed By: #### L 200.1602 ####ML - [facility] [id number] [place] [address] PT panel Coag (PPP)on 2021 INR Coag (PPP) [Relative time] 1.8 {INR} High 0.8 - 1.1 [facility] PT Coag (PPP) [Time] 19.8 s High 9.4 - 1 2.5 secs [facility] PTon 08-14-2022 INR Coag (PPP) [Relative time] 3.3 {INR} High 0.8-1.1 [facility] Comment on above: Result Comment: CO UMADIN PROTOCOLSINR values are generated for use in patients on coumadin.INR values stabilize 7 days after the start of coumadin orchanges in coumadin dosage. The usual TARGET/INR range is:INDICATION INR RANGEProphylaxis/treatment of: Venous Thrombosis, Pulmonary Embolism 2.0-3.0Prevention of systemic embolism from: Tissue heart valves 2.0-3.0 Acute myocardial infarction (to prevent systemic embolism) 2.0-3.0 AMI (to prevent recurrent AR) 2.5-3.5Valvular heart disease 2.0-3.0 Atrial fibrillation 2.0-3.0Mechanical prosthetic valves (high risk) 2.5-3.5Bileaflet mechanical valve in aortic position 2.0-3.0Presence of Lupus Anticoagulant orAntiphospholipid Antibodies 2.5-3.5PANIC VALUE: GREATER THAN OR EQUAL TO 4.5 Performed By: #### L 200.1602 ####ML - [id number] [place] [address] PT Coag (PPP) [Time] 36.8 s High 9.4-12.5 [facility] Comment on above: Performed By: #### L 200.1602 ####ML - [id number] [place] [address] PT panel Coag (PPP)on 2021 INR Coag (PPP) [Relative time] 3.3 {INR} High 0.8 - 1.1 [facility] PT Coag (PPP) [Time] 36.8 s High 9.4 - 1 2.5 secs [facility] PTon 07-16-2022 INR Coag (PPP) [Relative time] 3.4 {INR} High 0.8-1.1 [facility] Comment on above: Result Comment: CO UMADIN PROTOCOLSINR values are generated for use in patients on coumadin.INR values stabilize 7 days after the start of coumadin orchanges in coumadin dosage. The usual TARGET/INR range is:INDICATION INR RANGEProphylaxis/treatment of: Venous Thrombosis, Pulmonary Embolism 2.0-3.0Prevention of systemic embolism from: Tissue heart valves 2.0-3.0 Acute myocardial infarction (to prevent systemic embolism) 2.0-3.0 AMI (to prevent recurrent AR) 2.5-3.5Valvular heart disease 2.0-3.0 Atrial fibrillation 2.0-3.0Mechanical prosthetic valves (high risk) 2.5-3.5Bileaflet mechanical valve in aortic position 2.0-3.0Presence of Lupus Anticoagulant orAntiphospholipid Antibodies 2.5-3.5PANIC VALUE: GREATER THAN OR EQUAL TO 4.5 Performed By: #### L 200.1602 ####ML - [id number] [place] [address] PT Coag (PPP) [Time] 38.3 s High 9.4-12.5 [facility] Comment on above: Performed By: #### L 200.1602 ####ML - [id number] [place] [address] PT panel Coag (PPP)on 2021 INR Coag (PPP) [Relative time] 3.4 {INR} High 0.8 - 1.1 [facility] PT Coag (PPP) [Time] 38.3 s High 9.4 - 1 2.5 secs [facility] PTon 06-20-2022 INR Coag (PPP) [Relative time] 2.9 {INR} High 0.8-1.1 [facility] Comment on above: Result Comment: CO UMADIN PROTOCOLSINR values are generated for use in patients on coumadin.INR values stabilize 7 days after the start of coumadin orchanges in coumadin dosage. The usual TARGET/INR range is:INDICATION INR RANGEProphylaxis/treatment of: Venous Thrombosis, Pulmonary Embolism 2.0-3.0Prevention of systemic embolism from: Tissue heart valves 2.0-3.0 Acute myocardial infarction (to prevent systemic embolism) 2.0-3.0 AMI (to prevent recurrent AR) 2.5-3.5Valvular heart disease 2.0-3.0 Atrial fibrillation 2.0-3.0Mechanical prosthetic valves (high risk) 2.5-3.5Bileaflet mechanical valve in aortic position 2.0-3.0Presence of Lupus Anticoagulant orAntiphospholipid Antibodies 2.5-3.5PANIC VALUE: GREATER THAN OR EQUAL TO 4.5 Performed By: #### L 200.1602 ####ML - [facility] [id number] [place] [address] PT Coag (PPP) [Time] 32.8 s High 9.4-12.5 [facility] Comment on above: Performed By: #### L 200.1602 ####ML - [facility] [id number] [place] [address] PT panel Coag (PPP)on 2021 INR Coag (PPP) [Relative time] 2.9 {INR} High 0.8 - 1.1 [facility] PT Coag (PPP) [Time] 32.8 s High 9.4 - 1 2.5 secs [facility] PT panel Coag (PPP)on 2021 INR Coag (PPP) [Relative time] 3.1 {INR} High 0.8 - 1.1 [facility] PT Coag (PPP) [Time] 34.1 s High 9.4 - 1 2.5 secs [facility] ALT/SGPTon 05-01-2022 ALT [Catalytic activity/Vol] 6 U/L 5 - 41 U/L [facility] AST/SGOT BLDon 05-01-2022 AST [Catalytic activity/Vol] 23 U/L 5 - 40 U/L [facility] Basic metabolic 2000 panelon 05-01-2022 Anion gap [Moles/Vol] 13.5 mmol/L Low 15 - 2 2 mmol/L [facility] Calcium [Mass/Vol] 8.8 mg/dL 8.8 - 10. 2 mg/dL [facility] Chloride [Moles/Vol] 102 mmol/L 98 - 10 7 mmol/L [facility] CO2 [Moles/Vol] 23 mmol/L 22 - 29 mmol/L [facility] Creatinine [Mass/Vol] 2.03 mg/dL High 0.70 - 1.20 mg/dL [facility] eGFR-All Other Races [address] [facility] GFR/1.73 sq M.predicted among blacks MDRD (S/P/Bld) [Vol rate/Area] 40 mL/min/{1.73_m2} [facility] Glucose [Mass/Vol] 97 mg/dL 82 - 115 mg/dL [facility] Potassium [Moles/Vol] 5.5 mmol/L High 3.5 - 5.0 mmol/L [facility] Sodium [Moles/Vol] 133 mmol/L Low 135 - 145 mmol/L [facility] Urea nitrogen [Mass/Vol] 51 mg/dL High 8 - 23 mg/dL [facility] HbA1c (Bld)on 05-01-2022 HbA1c (Bld) [Mass fraction] 6.8 % High 4.3 - 6.1 % [facility] PT panel Coag (PPP)on 2021 INR Coag (PPP) [Relative time] 2.0 {INR} High 0.8 - 1.1 [facility] PT Coag (PPP) [Time] 22.6 s High 9.4 - 1 2.5 secs [facility] PT panel Coag (PPP)on 2021 INR Coag (PPP) [Relative time] 3.1 {INR} High 0.8 - 1.1 [facility] PT Coag (PPP) [Time] 34.6 s High 9.4 - 1 2.5 secs [facility] PT panel Coag (PPP)on 2021 INR Coag (PPP) [Relative time] 2.8 {INR} High 0.8 - 1.1 [facility] PT Coag (PPP) [Time] 31.1 s High 9.4 - 1 2.5 secs [facility] SURGICALon 04-10-2021 SURGICAL Pylorus - ULCER BX FINAL DIAGNOSIS: PYLORIC ULCER BIOPSY WITH BENIGN GASTRIC MUCOSA WITH MILD GASTROPATHY-LIKE CHANGE AND MINIMAL CHRONIC INFLAMMATION. NO HELICOBACTER-LIKE ORGANISMS IDENTIFIED. Dictated by: EMPERATRIZ ENGLISH D.O MICROSCOPIC DESCRIPTION: Slide(s) reviewed. MARTIN/yanna 04/11/2021 GROSS DESCRIPTION: Specimen received in appropriately labeled container designated as pyloric ulcer biopsy. Specimen consists of one portion of antony tissue, 2 mm in diameter. (1,ns) MARTIN/yanna 04/10/2021 CLINICAL DATA: PROCEDURE: EGD - Pyloric ulcers biopsy PRE-OP: Screening colonoscopy POST-OP: Same, biopsy HISTORY: N/A Signed *Electronically Signed* EMPERATRIZ ENGLISH D.O 04/11/21 1833 Normal [facility] Comment on above: Performed By: #### P -S #### ML - [facility] [address] [place] [address] Basic metabolic 2000 panelon 01-27-2021 Anion gap [Moles/Vol] 15.9 mmol/L 15 - 2 2 mmol/L [facility] Calcium [Mass/Vol] 8.2 mg/dL Low 8.8 - 10. 2 mg/dL [facility] Chloride [Moles/Vol] 103 mmol/L 98 - 10 7 mmol/L [facility] CO2 [Moles/Vol] 20 mmol/L Low 22 - 29 mmol/L [facility] Creatinine [Mass/Vol] 3.28 mg/dL High 0.70 - 1.20 mg/dL [facility] eGFR-All Other Races 19 [facility] GFR/1.73 sq M.predicted among blacks MDRD (S/P/Bld) [Vol rate/Area] 23 mL/min/{1.73_m2} [facility] Glucose [Mass/Vol] 77 mg/dL Low 82 - 115 mg/dL [facility] Potassium [Moles/Vol] 4.9 mmol/L 3.5 - 5.0 mmol/L [facility] Sodium [Moles/Vol] 134 mmol/L Low 135 - 145 mmol/L [facility] Urea nitrogen [Mass/Vol] 128 mg/dL High 8 - 23 mg/dL [facility] Anion gap [Moles/Vol] 15.6 mmol/L 15 - 2 2 mmol/L [facility] Calcium [Mass/Vol] 7.8 mg/dL Low 8.8 - 10. 2 mg/dL [facility] Chloride [Moles/Vol] 101 mmol/L 98 - 10 7 mmol/L [facility] CO2 [Moles/Vol] 20 mmol/L Low 22 - 29 mmol/L [facility] Creatinine [Mass/Vol] 3.31 mg/dL High 0.70 - 1.20 mg/dL [facility] eGFR-All Other Races 19 [facility] GFR/1.73 sq M.predicted among blacks MDRD (S/P/Bld) [Vol rate/Area] 23 mL/min/{1.73_m2} [facility] Glucose [Mass/Vol] 182 mg/dL High 82 - 115 mg/dL [facility] Potassium [Moles/Vol] 5.6 mmol/L High 3.5 - 5.0 mmol/L [facility] Sodium [Moles/Vol] 131 mmol/L Low 135 - 145 mmol/L [facility] Urea nitrogen [Mass/Vol] 129 mg/dL High 8 - 23 mg/dL [facility] Glucose post fast [Mass/Vol] on 01-27-2021 Glucose [Mass/Vol] 119 mg/dL High 70 - 110 mg/dL [facility] Glucose [Mass/Vol] 96 mg/dL 70 - 110 mg/dL [facility] Glucose [Mass/Vol] 124 mg/dL High 70 - 110 mg/dL [facility] Glucose [Mass/Vol] 153 mg/dL High 70 - 110 mg/dL [facility] Glucose [Mass/Vol] 167 mg/dL High 70 - 110 mg/dL [facility] Glucose [Mass/Vol] 209 mg/dL High 70 - 110 mg/dL [facility] Magnesium [Mass/Vol]on 01-27 Magnesium.plasma/Magn esium.RBC (Bld) [Molar ratio] 1.3 mg/dL Low 1.6 - 2.4 mg/dL [facility] Magnesium.plasma/Magn esium.RBC (Bld) [Molar ratio] 1.3 mg/dL Low 1.6 - 2.4 mg/dL [facility] PT panel Coag (PPP)on 2020 INR Coag (PPP) [Relative time] 1.4 {INR} [facility] PT Coag (PPP) [Time] 16.7 s High 9.4 - 1 2.5 secs [facility] Phosphate [Mass/Vol]on 01-27 Phosphate (Bld) [Moles/Vol] 2.1 mg/dL Low 2.5 - 4.5 mg/dL [facility] Phosphate (Bld) [Moles/Vol] 2.0 mg/dL Low 2.5 - 4.5 mg/dL [facility] Basic metabolic 2000 panelon 01-26-2021 Anion gap [Moles/Vol] 22.8 mmol/L High 15 - 2 2 mmol/L [facility] Calcium [Mass/Vol] 7.5 mg/dL Low 8.8 - 10. 2 mg/dL [facility] Chloride [Moles/Vol] 97 mmol/L Low 98 - 10 7 mmol/L [facility] CO2 [Moles/Vol] 12 mmol/L Low 22 - 29 mmol/L [facility] Creatinine [Mass/Vol] 2.93 mg/dL High 0.70 - 1.20 mg/dL [facility] eGFR-All Other Races 21 [facility] GFR/1.73 sq M.predicted among blacks MDRD (S/P/Bld) [Vol rate/Area] 26 mL/min/{1.73_m2} [facility] Glucose [Mass/Vol] 549 mg/dL Critically high 82 - 1 15 mg/dL [facility] Potassium [Moles/Vol] 5.8 mmol/L High 3.5 - 5.0 mmol/L [facility] Sodium [Moles/Vol] 126 mmol/L Low 135 - 145 mmol/L [facility] Urea nitrogen [Mass/Vol] 116 mg/dL High 8 - 23 mg/dL [facility] Anion gap [Moles/Vol] 23.6 mmol/L High 15 - 2 2 mmol/L [facility] Calcium [Mass/Vol] 7.4 mg/dL Low 8.8 - 10. 2 mg/dL [facility] Chloride [Moles/Vol] 93 mmol/L Low 98 - 10 7 mmol/L [facility] CO2 [Moles/Vol] 14 mmol/L Low 22 - 29 mmol/L [facility] Creatinine [Mass/Vol] 2.79 mg/dL High 0.70 - 1.20 mg/dL [facility] eGFR-All Other Races 23 [facility] GFR/1.73 sq M.predicted among blacks MDRD (S/P/Bld) [Vol rate/Area] 28 mL/min/{1.73_m2} [facility] Glucose [Mass/Vol] 701 mg/dL Critically high 82 - 1 15 mg/dL [facility] Potassium [Moles/Vol] 6.6 mmol/L Critically high 3.5 - 5.0 mmol/L [facility] Sodium [Moles/Vol] 124 mmol/L Low 135 - 145 mmol/L [facility] Urea nitrogen [Mass/Vol] 122 mg/dL High 8 - 23 mg/dL [facility] CBC W Auto Differential pane l (Bld)on 01-26-2021 BASO ABS 0.10 x10(3) 0.00 - 0.10 x10(3) [facility] Basophils/100 WBC (Bld) 0.5 % 0.0 - 1.0 % [facility] EOS ABS 0.00 x10(3) 0.00 - 0.54 x10(3) [facility] Eosinophils/100 WBC (Bld) 0.0 % Low 0.5 - 4.9 % [facility] Erythrocyte distribution width (RBC) [Ratio] 14.5 % 12.7 - 15.3 % [facility] Hematocrit (Bld) [Volume fraction] 27.6 % Low 42.0 - 51.0 % [facility] Hemoglobin (Bld) [Mass/Vol] 8.5 g/dL Low 14.0 - 17.2 g/dL [facility] LYMPH ABS 1.00 x10(3) 1.00 - 3.50 x10(3) [facility] Lymphocytes/100 WBC (Bld) 5.5 % Low 16.0 - 48.0 % [facility] MCH (RBC) [Entitic mass] 28.0 pg Low 28.8 - 32.2 pg [facility] MCHC (RBC) [Mass/Vol] 30.6 g/dL Low 33.0 - 36.0 g/dL [facility] MCV (RBC) [Entitic vol] 91.4 fL 80.0 - 94.0 fl [facility] MONO ABS 0.50 x10(3) 0.30 - 0.80 x10(3) [facility] Monocytes/100 WBC (Bld) 2.6 % Low 4.3 - 11.2 % [facility] Neutrophil Ab 16.90 x10(3) High 1.40 - 6.50 x10(3) [facility] Neutrophils/100 WBC (Bld) 91.4 % High 45.0 - 73.0 % [facility] Platelet Count 303 X10(3) 150 - 450 X10(3) [facility] Platelet mean volume (Bld) [Entitic vol] 8.4 fL 7.4 - 9.2 fl [facility] RBC 3.02 x10(6) Low 4.80 - 5.50 x10(6) [facility] WBC 18.5 x10(3) High 4.5 - 10.0 x10(3) [facility] Comprehensive metabolic 2000 panelon 01-26-2021 Albumin [Mass/Vol] 2.8 g/dL Low 3.5 - 5.2 g/dL [facility] Albumin/Globulin [Mass ratio] 1.21 {ratio} 1.1 - 2.5 [facility] ALP [Catalytic activity/Vol] 51 U/L 40 - 130 U/L [facility] ALT [Catalytic activity/Vol] 7 U/L 5 - 41 U/L [facility] Anion gap [Moles/Vol] 23.9 mmol/L High 15 - 2 2 mmol/L [facility] AST [Catalytic activity/Vol] 14 U/L 5 - 40 U/L [facility] Bilirubin [Mass/Vol] mg/dL 0.2 - 1 .2 mg/dL [facility] Calcium [Mass/Vol] 7.8 mg/dL Low 8.8 - 10. 2 mg/dL [facility] Chloride [Moles/Vol] 89 mmol/L Low 98 - 10 7 mmol/L [facility] CO2 [Moles/Vol] 16 mmol/L Low 22 - 29 mmol/L [facility] Creatinine [Mass/Vol] 2.66 mg/dL High 0.70 - 1.20 mg/dL [facility] eGFR-All Other Races 24 [facility] GFR/1.73 sq M.predicted among blacks MDRD (S/P/Bld) [Vol rate/Area] 29 mL/min/{1.73_m2} [facility] Globulin (S) [Mass/Vol] 2.3 g/dL 1.5 - 4.5 g/dL [facility] Glucose [Mass/Vol] 801 mg/dL Critically high 82 - 1 15 mg/dL [facility] Potassium [Moles/Vol] 5.9 mmol/L High 3.5 - 5.0 mmol/L [facility] Protein [Mass/Vol] 5.1 g/dL Low 6.4 - 8.3 g/dL [facility] Sodium [Moles/Vol] 123 mmol/L Low 135 - 145 mmol/L [facility] Urea nitrogen [Mass/Vol] 120 mg/dL High 8 - 23 mg/dL [facility] Gas and Carbon monoxide pane l (BldV)on 01-26-2021 BE(B) -14.1 mmol/L Low -2.0 - 2.0 mmol/L [facility] BE(ECF) -15.4 mmol/L Low -2.0 - 2.0 mmol/L [facility] BO2 12.8 mL/dL [facility] CTCO2 12.7 mmol/L Low 23 - 27 mmol/L [facility] HCO3-ACT 11.9 mmol/L Low 22 - 26 mmol/L [facility] HCO3-STD 13.4 mmol/L [facility] Hematocrit (Bld) [Volume fraction] 29 % Low 42.0 - 51.0 % [facility] Oxygen (Bld) [Partial pressure] 157.5 mm[Hg] High 20 - 50 mmHg [facility] PCO2 28.0 mmHg Low 39 - 55 mmHg [facility] pH (Bld) 7.245 [pH] Low 7.310 - 7.420 [facility] SO2 98.5 % High 95 - 98 % [facility] THB 9.7 g/dL Low 14.0 - 17.2 g/dL [facility] Glucose post fast [Mass/Vol] on 01-26-2021 Glucose [Mass/Vol] 255 mg/dL High 70 - 110 mg/dL [facility] Glucose [Mass/Vol] 269 mg/dL High 70 - 110 mg/dL [facility] Glucose [Mass/Vol] 383 mg/dL High 70 - 110 mg/dL [facility] Glucose [Mass/Vol] 413 mg/dL High 70 - 110 mg/dL [facility] Glucose, Fasting >/=450 Critically high 70 - 110 mg/dL [facility] Laboratory - Blood bankon ABO and Rh group Nom (Bld) Blood group A Rh(D) negative [facility] - Chemistry and C hemistry - challengeon 01-26-2021 Troponin T.cardiac [Mass/Vol] 0.073 ug/L High 0 - 0.010 ng/mL [facility] Troponin T.cardiac [Mass/Vol] 0.054 ug/L High 0 - 0.010 ng/mL [facility] Troponin T.cardiac [Mass/Vol] 0.054 ug/L High 0 - 0.010 ng/mL [facility] CK [Catalytic activity/Vol] 119 U/L 39 - 308 IU/L [facility] CK.MB [Mass/Vol] 8.4 ng/mL 1.0 - 10.4 ng/mL [facility] Troponin T.cardiac [Mass/Vol] 0.036 ug/L High 0 - 0.010 ng/mL [facility] - Hematology and Cell countson 01-26-2021 HbA1c (Bld) [Mass fraction] 11.6 % High 4.3 - 6.1 % [facility] Band form neutrophils/100 WBC (Bld) 2 % 0 - 6 % [facility] Lymphocytes/100 WBC (Bld) 4 % Low 16 - 48 % [facility] Monocytes/100 WBC (Bld) 1 % Low 4 - 12 % [facility] RBC morphology finding Nom (Bld) NORMAL [facility] Segmented neutrophils/100 WBC (Bld) 92 % High 45 - 73 % [facility] Lactate (Bld) [Moles/Vol]on 01-26-2021 Lactic Acid Plasma 5.6 mmol/L Critically high 0.5 - 2.0 mmol/L [facility] Lactic Acid Plasma 5.9 mmol/L Critically high 0.5 - 2.0 mmol/L [facility] Lower GI hemoglobin IA Ql (S tl)on 01-26-2021 FECAL OCCULT BLOOD Positive High NEGATIVE [facility] Magnesium [Mass/Vol]on 01-26 Magnesium.plasma/Magn esium.RBC (Bld) [Molar ratio] 1.1 mg/dL Low 1.6 - 2.4 mg/dL [facility] Magnesium.plasma/Magn esium.RBC (Bld) [Molar ratio] 1.1 mg/dL Low 1.6 - 2.4 mg/dL [facility] No Panel Informationon 01-26 Lactic Acid Plasma 5.3 mmol/L Critically high 0.5 - 2.0 mmol/L [facility] B-Hydroxybutyrate 1.45 mmol/L High 0.02 - 0.2 7 mmol/L [facility] Cells Counted 100 [facility] Myelocyte 1 % High 0 - 0 % [facility] Platelet Estimate NORMAL [facility] PT panel Coag (PPP)on 2020 INR Coag (PPP) [Relative time] 3.5 {INR} [facility] PT Coag (PPP) [Time] 41.9 s High 9.4 - 1 2.5 secs [facility] Phosphate [Mass/Vol]on 01-26 Phosphate (Bld) [Moles/Vol] 3.0 mg/dL 2.5 - 4.5 mg/dL [facility] Phosphate (Bld) [Moles/Vol] 3.4 mg/dL 2.5 - 4.5 mg/dL [facility] SARS-CoV-2 (COVID-19) RNA NA A+probe Ql (Resp)on 01-26-2021 SARS-CoV-2 (COVID-19) RNA CHER+probe Ql (Unsp spec) Negative NEGATIVE [facility] aPTT Coag (PPP) [Time]on aPTT Coag (Bld) [Time] 25.5 s 25.1 - 36.5 secs [facility] Hematologyon 06-08-2020 INR Coag (PPP) [Relative time] 3.7 {INR} [facility] PT Coag (PPP) [Time] 43.0 s High 9.4 - 1 2.5 secs [facility] Metabolic Panelon 06-08-2020 HbA1c (Bld) [Mass fraction] 8.4 % High 4.3 - 6.1 % [facility] Cardiacon 06-07-2020 Cholesterol [Mass/Vol] 231 mg/dL High 130 - 200 mg/dL [facility] Cholesterol in HDL [Mass/Vol] 47 mg/dL [facility] Cholesterol in LDL [Mass/Vol] 155 mg/dL [facility] Triglyceride [Mass/Vol] 143 mg/dL [facility] Hematologyon 06-07-2020 Basophils/100 WBC (Bld) 0.9 % 0.0 - 1.0 % [facility] Eosinophils/100 WBC (Bld) 2.7 % 0.5 - 4.9 % [facility] Hematocrit (Bld) [Volume fraction] 43.4 % 42.0 - 51.0 % [facility] Hemoglobin (Bld) [Mass/Vol] 14.2 g/dL 14.0 - 17.2 g/dL [facility] Lymphocytes (Bld) [#/Vol] 1.80 x10(3) 1.00 - 3.50 x10(3) [facility] Lymphocytes/100 WBC (Bld) 19.7 % 16.0 - 48.0 % [facility] MCH (RBC) [Entitic mass] 29.6 pg 28.8 - 32.2 pg [facility] MCV (RBC) [Entitic vol] 90.3 fL 80.0 - 94.0 fl [facility] Monocytes/100 WBC (Bld) 9.7 % 4.3 - 11.2 % [facility] Neutrophils/100 WBC (Bld) 67.0 % 45.0 - 73.0 % [facility] Platelets (Bld) [#/Vol] 222 X10(3) 150 - 450 X10(3) [facility] RBC (Bld) [#/Vol] 4.81 x10(6) 4.80 - 5.5 0 x10(6) [facility] WBC (Bld) [#/Vol] 9.1 x10(3) 4.5 - 10.0 x10(3) [facility] Metabolic Panelon 06-07-2020 Albumin [Mass/Vol] 3.3 g/dL Low 3.5 - 5.2 g/dL [facility] ALP [Catalytic activity/Vol] 61 U/L 40 - 130 U/L [facility] ALT [Catalytic activity/Vol] 11 U/L 5 - 41 U/L [facility] Anion gap [Moles/Vol] 15.6 mmol/L 15 - 2 2 mmol/L [facility] AST [Catalytic activity/Vol] 26 U/L 5 - 40 U/L [facility] Bilirubin [Mass/Vol] 0.5 mg/dL 0.2 - 1 .2 mg/dL [facility] Calcium [Mass/Vol] 8.3 mg/dL Low 8.8 - 10. 2 mg/dL [facility] Chloride [Moles/Vol] 98 mmol/L 98 - 10 7 mmol/L [facility] CO2 [Moles/Vol] 20 mmol/L Low 22 - 29 mmol/L [facility] Creatinine [Mass/Vol] 1.80 mg/dL High 0.70 - 1.20 mg/dL [facility] GFR/1.73 sq M predicted among blacks MDRD (S/P/Bld) [Vol rate/Area] 46 mL/min/{1.73_m2} [facility]/1.73 sq M predicted among non-blacks MDRD (S/P/Bld) [Vol rate/Area] 38 mL/min/{1.73_m2} [facility] Glucose [Mass/Vol] 124 mg/dL High 82 - 115 mg/dL [facility] Potassium [Moles/Vol] 4.6 mmol/L 3.5 - 5.0 mmol/L [facility] Protein [Mass/Vol] 7.1 g/dL 6.4 - 8.3 g/dL [facility] Sodium [Moles/Vol] 129 mmol/L Low 135 - 145 mmol/L [facility] Urea nitrogen [Mass/Vol] 41 mg/dL High 8 - 23 mg/dL [facility] Otheron 06-07-2020 Albumin/Globulin [Mass ratio] 0.86 {ratio} Low 1.1 - 2.5 [facility] Globulin (S) [Mass/Vol] 3.8 g/dL 1.5 - 4.5 g/dL [facility] LDL:HDL Ratio 3.3 [facility] VLDL Cholesterol 29 mg/dL 6 - 40 mg/dL [facility] BASO ABS 0.10 x10(3) 0.00 - 0.10 x10(3) [facility] EOS ABS 0.20 x10(3) 0.00 - 0.54 x10(3) [facility] Erythrocyte distribution width (RBC) [Ratio] 14.0 % 12.7 - 15.3 % [facility] MCHC (RBC) [Mass/Vol] 32.8 g/dL Low 33.0 - 36.0 g/dL [facility] MONO ABS 0.90 x10(3) High 0.30 - 0.80 x10(3) [facility] Neutrophil Ab 6.10 x10(3) 1.40 - 6.50 x10(3) [facility] Platelet mean volume (Bld) [Entitic vol] 7.3 fL Low 7.4 - 9.2 fl [facility] Thyroidon 06-07-2020 TSH Qn 1.45 uIU/mL 0.27 - 4.20 uIU/mL [facility] Progress Noteson 07-19-2017 HIM IP Note OR [employer] Installer Normal [facility] Progress Noteson 07-05-2017 HIM IP Note OR [employer] He[employer] Installer Normal [facility] Renal Function Panelon 05-10 Albumin 3.5 g/dL Normal 3.4-5.0 [facility] Comment on above: Performed By: #### R ENAL ####[address] [address] Anion gap 13.0 mmol/L Normal 8.0-16.0 [facility] Comment on above: Performed By: #### R ENAL ####[address] [address] BUN/Creatinine Ratio 18 mg/mg Normal 6-20 [facility] Comment on above: Performed By: #### R ENAL ####[address] [address] Calcium 9.1 mg/dL Normal 8.2-10.0 [facility] Comment on above: Performed By: #### R ENAL ####[address] [address] Chloride 102 mmol/L Normal 94-110 [facility] Comment on above: Performed By: #### R ENAL ####[address] [address] CO2 24 mmol/L Normal 21-34 [facility] Comment on above: Performed By: #### R ENAL ####[address] [address] Creatinine 2.92 mg/dL High 0.50-1.17 [facility] Comment on above: Performed By: #### R ENAL ####[address] [address] eGFR (black) 26 mL/min/{1.73_m2} Abnormal >60 [facility] Comment on above: Result Comment: B Operator jamar Kidney Disease less than 60 mL/min/1.73 [id number] Failure less than 15 mL/min/1.73 [id number] estimated GFR by age:60-69 years 85 mL/min/1.73 m2 Performed By: #### R ENAL ####[id number] [place], [place] [address] eGFR (non-black) 22 mL/min/{1.73_m2} Abnormal >60 [facility] Comment on above: Performed By: #### R ENAL ####[address] [address] Glucose mass conc 146 mg/dL High 65-100 [facility] Comment on above: Performed By: #### R ENAL ####[address] [address] Phosphate 4.4 mg/dL Normal 2.5-4.9 [facility] Comment on above: Performed By: #### R ENAL ####[address] [address] Potassium molar conc 4.9 mmol/L Normal 3.3-5.1 [facility] Comment on above: Performed By: #### R ENAL ####[address] [address] Sodium 134 mmol/L Normal 132-145 [facility] Comment on above: Performed By: #### R ENAL ####[address] [address] Urea nitrogen 53.7 mg/dL High 3.2-26.9 [facility] Comment on above: Performed By: #### R ENAL ####[address] [address] Vital Signs Date Time Vital Sign Value Performing Clinician Maryan anderson 01-23-2025 14:12-0400 Body temperature 98 [degF] Dr. Kamron Hernadez Work Phone: [facility] 01-23-2025 14:12-0400 Body weight 87.[address] Kamron Hernadez Work Phone: [facility] 01-23-2025 14:12-0400 Diastolic blood pressure 47 mm[Hg] Dr. Kamron Lepe MD Work Phone: [facility] 01-23-2025 14:12-0400 Heart rate 58 /min Dr. Kamron Hernadez Work Phone: [facility] 01-23-2025 14:12-0400 Respiratory rate 14 /min Dr. Kamron Hernadez Work Phone: [facility] 01-23-2025 14:12-0400 SaO2% (BldA) [Mass fraction] 97 % Dr. Kamron Lepe MD Work Phone: [facility] 01-23-2025 14:12-0400 Systolic blood pressure 108 mm[Hg] Dr. Kamron Lepe MD Work Phone: [facility] 01-09-2025 14:57-0400 Body temperature 98.4 [degF] Dr. Kamron Hernadez Work Phone: [facility] 01-09-2025 14:57-0400 Diastolic blood pressure 80 mm[Hg] Dr. Kamron Lepe MD Work Phone: [facility] 01-09-2025 14:57-0400 Heart rate 73 /min Dr. Kamron Hernadez Work Phone: [facility] 01-09-2025 14:57-0400 Respiratory rate 16 /min Dr. Kamron Hernadez Work Phone: [facility] 01-09-2025 14:57-0400 SaO2% (BldA) [Mass fraction] 95 % Dr. Kamron Lepe MD Work Phone: [facility] 01-09-2025 14:57-0400 Systolic blood pressure 146 mm[Hg] Dr. Kamron Lepe MD Work Phone: [facility] 01-09-2025 14:30-0400 Inhaled oxygen flow rate 1 L/min Dr. Kamron Lepe MD Work Phone: [facility] 01-09-2025 07:46-0400 Body height 177.[address] Kamron Hernadez Work Phone: [facility] 01-09-2025 07:46-0400 Body mass index (BMI) [Ratio] 27.4 kg/m2 Dr. Kamron Lepe MD Work Phone: [facility] 01-09-2025 07:46-0400 Body weight 86.[address] Kamron Hernadez Work Phone: [facility] 11-16-2024 13:03-0500 Body temperature 98.2 [degF] Dr. Kamron Hernadez Work Phone: [facility] 11-16-2024 13:03-0500 Body weight 89.[address] Kamron Hernadez Work Phone: [facility] 11-16-2024 13:03-0500 Diastolic blood pressure 59 mm[Hg] Dr. Kamron Lepe MD Work Phone: [facility] 11-16-2024 13:03-0500 Heart rate 80 /min Dr. Kamron Hernadez Work Phone: [facility] 11-16-2024 13:03-0500 Respiratory rate 16 /min Dr. Kamron Hernadez Work Phone: [facility] 11-16-2024 13:03-0500 SaO2% (BldA) [Mass fraction] 97 % Dr. Kamron Lepe MD Work Phone: [facility] 11-16-2024 13:03-0500 Systolic blood pressure 142 mm[Hg] Dr. Kamron Lepe MD Work Phone: [facility] 11-02-2024 08:45-0500 Body temperature 96.8 [degF] DR CINDY FALCON MD [facility] 11-02-2024 08:45-0500 Diastolic Blood Pressure Non-Invasive 67 mm[Hg] DR CINDY FALCON MD [facility] 11-02-2024 08:45-0500 Heart rate 72 /min DR CINDY FALCON MD [facility] 11-02-2024 08:45-0500 Respiratory rate 18 /min DR CINDY FALCON MD [facility] 11-02-2024 08:45-0500 Systolic Blood Pressure Non-Invasive 134 mm[Hg] DR CINDY FALCON MD [facility] 11-02-2024 08:30-0500 Diastolic Blood Pressure Non-Invasive 61 mm[Hg] DR CINDY FALCON MD [facility] 11-02-2024 08:30-0500 Heart rate 71 /min DR CINDY FALCON MD [facility] 11-02-2024 08:30-0500 Respiratory rate 16 /min DR CINDY FALCON MD [facility] 11-02-2024 08:30-0500 Systolic Blood Pressure Non-Invasive 125 mm[Hg] DR CINDY FALCON MD [facility] 11-02-2024 08:15-0500 Diastolic Blood Pressure Non-Invasive 74 mm[Hg] DR CINDY FALCON MD [facility] 11-02-2024 08:15-0500 Heart rate 74 /min DR CINDY FALCON MD [facility] 11-02-2024 08:15-0500 Respiratory rate 16 /min DR CINDY FALCON MD [facility] 11-02-2024 08:15-0500 Systolic Blood Pressure Non-Invasive 117 mm[Hg] DR CINDY FALCON MD [facility] 11-02-2024 07:55-0500 Heart rate 61 /min DR CINDY FALCON MD [facility] 11-02-2024 06:52-0500 Body height 177.[address] CINDY FALCON MD [facility] 11-02-2024 06:52-0500 Body temperature 96.8 [degF] DR CINDY FALCON MD [facility] 11-02-2024 06:52-0500 Body weight 85.[address] CINDY FALCON MD [facility] 11-02-2024 06:52-0500 Heart rate 72 /min DR CINDY FALCON MD [facility] 10-05-2024 09:34-0500 Body height 177.8 cm Federico Park APRN.[employer] Work Phone: [facility] 10-05-2024 09:34-0500 Body mass index (BMI) [Ratio] 28.44 kg/m2 Federico Park APRN.[employer] Work Phone: [facility] 10-05-2024 09:34-0500 Body weight 89.9 kg Federico Park APRN.[employer] Work Phone: [facility] 10-05-2024 09:34-0500 Diastolic blood pressure 62 mm[Hg] Federico Park APRN.[employer] Work Phone: [facility] 10-05-2024 09:34-0500 Heart rate 82 /min Fed[place]ico Park APRN[employer] Work Phone: [facility] 10-05-2024 09:34-0500 Respiratory rate 18 /min Federico Park PIPELINER[employer] Work Phone: [facility] 10-05-2024 09:34-0500 SaO2% (BldA) [Mass fraction] 97 % Federico Park [employer]INER[employer] Work Phone: [facility] 10-05-2024 09:34-0500 Systolic blood pressure 124 mm[Hg] Federico Park [employer] Work Phone: [facility] 09-28-2024 09:54-0500 Body temperature 98 [degF] Dr. Kamron Hernadez Work Phone: [facility] 09-28-2024 09:54-0500 Body weight 87.[address] Kamron Hernadez Work Phone: [facility] 09-28-2024 09:54-0500 Diastolic blood pressure 65 mm[Hg] Dr. Kamron Lepe MD Work Phone: [facility] 09-28-2024 09:54-0500 Heart rate 75 /min Dr. Kamron Hernadez Work Phone: [facility] 09-28-2024 09:54-0500 Respiratory rate 16 /min Dr. Kamron Hernadez Work Phone: [facility] 09-28-2024 09:54-0500 SaO2% (BldA) [Mass fraction] 95 % Dr. Kamron Lepe MD Work Phone: [facility] 09-28-2024 09:54-0500 Systolic blood pressure 121 mm[Hg] Dr. Kamron Lepe MD Work Phone: [facility] 05-03-2024 10:43-0400 Body temperature 97 [degF] Ngozi Vigil MD Work Phone: [facility] 05-03-2024 10:43-0400 Diastolic blood pressure 79 mm[Hg] Ngozi Vigil MD Work Phone: [facility] 05-03-2024 10:43-0400 Heart rate 70 /min Ngozi Vigil MD Work Phone: [facility] 05-03-2024 10:43-0400 Respiratory rate 16 /min Ngozi Vigil MD Work Phone: [facility] 05-03-2024 10:43-0400 Systolic blood pressure 132 mm[Hg] Ngozi Vigil MD Work Phone: [facility] 04-27-2024 09:50-0400 Body temperature 97.5 [degF] Gilmer Olivia DPM Work Phone: [facility] 04-27-2024 09:50-0400 Diastolic blood pressure 56 mm[Hg] Gilmer Olivia DPM Work Phone: [facility] 04-27-2024 09:50-0400 Heart rate 91 /min Gilmer Olivia DPM Work Phone: [facility] 04-27-2024 09:50-0400 Respiratory rate 16 /min Gilmer Olivia DPM Work Phone: [facility] 04-27-2024 09:50-0400 Systolic blood pressure 110 mm[Hg] Gilmer Olivia DPM Work Phone: [facility] 04-20-2024 09:20-0400 Body temperature 97.9 [degF] Gilmer Olivia DPM Work Phone: [facility] 04-20-2024 09:20-0400 Diastolic blood pressure 69 mm[Hg] Gilmer Olivia DPM Work Phone: [facility] 04-20-2024 09:20-0400 Heart rate 83 /min Gilmer Olivia DPM Work Phone: [facility] 04-20-2024 09:20-0400 Respiratory rate 16 /min Gilmer Olivia DPM Work Phone: [facility] 04-20-2024 09:20-0400 Systolic blood pressure 120 mm[Hg] Gilmer Olivia DPM Work Phone: [facility] 04-13-2024 14:30-0400 Body temperature 96.62 [degF] DR CINDY FALCON MD [facility] 04-13-2024 14:30-0400 Diastolic Blood Pressure Non-Invasive 63 mm[Hg] DR CINDY FALCON MD [facility] 04-13-2024 14:30-0400 Heart rate 57 /min DR CINDY FALCON MD [facility] 04-13-2024 14:30-0400 Respiratory rate 16 /min DR CINDY FALCON MD [facility] 04-13-2024 14:30-0400 Systolic Blood Pressure Non-Invasive 108 mm[Hg] DR CINDY FALCON MD [facility] 04-13-2024 14:00-0400 Diastolic Blood Pressure Non-Invasive 66 mm[Hg] DR CINDY FALCON MD [facility] 04-13-2024 14:00-0400 Heart rate 68 /min DR CINDY FALCON MD [facility] 04-13-2024 14:00-0400 Systolic Blood Pressure Non-Invasive 126 mm[Hg] DR CINDY FALCON MD [facility] 04-13-2024 13:49-0400 Diastolic Blood Pressure Non-Invasive 67 mm[Hg] DR CINDY FALCON MD [facility] 04-13-2024 13:49-0400 Heart rate 67 /min DR CINDY FALCON MD [facility] 04-13-2024 13:49-0400 Respiratory rate 18 /min DR CINDY FALCON MD [facility] 04-13-2024 13:49-0400 Systolic Blood Pressure Non-Invasive 121 mm[Hg] DR CINDY FALCON MD [facility] 04-13-2024 11:36-0400 Body height 177.[address] CINDY FALCON MD [facility] 04-13-2024 11:36-0400 Body weight 94.[address] CINDY FALCON MD [facility] 04-13-2024 11:15-0400 Body temperature 97.34 [degF] DR CINDY FALCON MD [facility] 04-06-2024 10:07-0400 Body temperature 97.7 [degF] Gilmer Olivia DPM Work Phone: [facility] 04-06-2024 10:07-0400 Diastolic blood pressure 53 mm[Hg] Gilmer Olivia DPM Work Phone: [facility] 04-06-2024 10:07-0400 Heart rate 88 /min Gilmer Olivia DPM Work Phone: [facility] 04-06-2024 10:07-0400 Respiratory rate 16 /min Gilmer Olivia DPM Work Phone: [facility] 04-06-2024 10:07-0400 Systolic blood pressure 117 mm[Hg] Gilmer Olivia DPM Work Phone: [facility] 03-31-2024 09:39-0400 Body height 177.8 cm [place] Park PIPELINER[employer] Work Phone: [facility] 03-31-2024 09:39-0400 Body mass index (BMI) [Ratio] 30.94 kg/m2 Federico Park PIPELINER[employer] Work Phone: [facility] 03-31-2024 09:39-0400 Body weight 97.8 kg Federico Park PIPELINER[employer] Work Phone: [facility] 03-31-2024 09:39-0400 Diastolic blood pressure 74 mm[Hg] Federico Park PIPELINER[employer] Work Phone: [facility] 03-31-2024 09:39-0400 Heart rate 70 /min [place]ico Park PIPELINER[employer] Work Phone: [facility] 03-31-2024 09:39-0400 Respiratory rate 16 /min [place]ico Park PIPELINER[employer] Work Phone: [facility] 03-31-2024 09:39-0400 SaO2% (BldA) [Mass fraction] 97 % Fed[place]ico Park PIPELINER[employer] Work Phone: [facility] 03-31-2024 09:39-0400 Systolic blood pressure 138 mm[Hg] Federico Park [employer]INER[employer] Work Phone: [facility] 03-30-2024 08:12-0400 Body temperature 97 [degF] Gilmer Olivia DPM Work Phone: [facility] 03-30-2024 08:12-0400 Diastolic blood pressure 75 mm[Hg] Gilmer Olivia DPM Work Phone: [facility] Comment on above: pt asymptomatic 03-30-2024 08:12-0400 Heart rate 75 /min Gilmer Olivia DPM Work Phone: [facility] 03-30-2024 08:12-0400 Respiratory rate 16 /min Gilmer Olivia DPM Work Phone: [facility] 03-30-2024 08:12-0400 Systolic blood pressure 157 mm[Hg] Gilmer Olivia DPM Work Phone: [facility] Comment on above: pt asymptomatic 03-23-2024 09:32-0400 Body mass index (BMI) [Ratio] 30.56 kg/m2 Gilmer Olivia DPM Work Phone: [facility] 03-23-2024 09:32-0400 Body temperature 98.01 [degF] Gilmer Olivia DPM Work Phone: [facility] 03-23-2024 09:32-0400 Body weight 96.62 kg Gilmer Olivia DPM Work Phone: [facility] Comment on above: per patient, patient reports getting gretta ght daily 03-23-2024 09:32-0400 Diastolic blood pressure 60 mm[Hg] Gilmer Olivia DPM Work Phone: [facility] 03-23-2024 09:32-0400 Heart rate 81 /min Gilmer Olivia DPM Work Phone: [facility] 03-23-2024 09:32-0400 Respiratory rate 16 /min Gilmer Olivia DPM Work Phone: [facility] 03-23-2024 09:32-0400 Systolic blood pressure 125 mm[Hg] Gilmer Olivia DPM Work Phone: [facility] 02-28-2024 14:08-0400 Body temperature 97.7 [degF] Yoli Jericho DPM Work Phone: [facility] 02-28-2024 14:08-0400 Diastolic blood pressure 72 mm[Hg] Yoli Jericho DPM Work Phone: [facility] 02-28-2024 14:08-0400 Heart rate 71 /min Yoli Jericho DPM Work Phone: [facility] 02-28-2024 14:08-0400 Respiratory rate 16 /min Yoli Jericho DPM Work Phone: [facility] 02-28-2024 14:08-0400 Systolic blood pressure 140 mm[Hg] Yoli Jericho DPM Work Phone: [facility] 01-31-2024 14:29-0400 Body height 177.8 cm Yoli Jericho DPM Work Phone: [facility] 01-31-2024 14:29-0400 Body mass index (BMI) [Ratio] 33.72 kg/m2 Yoli Jericho DPM Work Phone: [facility] 01-31-2024 14:29-0400 Body temperature 97 [degF] Yoli Jericho DPM Work Phone: [facility] 01-31-2024 14:29-0400 Body weight 106.59 kg Yoli Jericho DPM Work Phone: [facility] 01-31-2024 14:29-0400 Diastolic blood pressure 71 mm[Hg] Yoli Jericho DPM Work Phone: [facility] Comment on above: PT ASYMPTOMATIC 01-31-2024 14:29-0400 Heart rate 52 /min Yoli Jericho DPM Work Phone: [facility] 01-31-2024 14:29-0400 Respiratory rate 16 /min Yoli Jericho DPM Work Phone: [facility] 01-31-2024 14:29-0400 Systolic blood pressure 154 mm[Hg] Yoli Jericho DPM Work Phone: [facility] Comment on above: PT ASYMPTOMATIC 01-17-2024 14:15-0400 Body temperature 98.49 [degF] Yoli Jericho DPM Work Phone: [facility] 01-17-2024 14:15-0400 Diastolic blood pressure 80 mm[Hg] Yoli Jericho DPM Work Phone: [facility] Comment on above: pt asymptomatic 01-17-2024 14:15-0400 Heart rate 80 /min Yoli Jericho DPM Work Phone: [facility] 01-17-2024 14:15-0400 Respiratory rate 16 /min Yoli Jericho DPM Work Phone: [facility] 01-17-2024 14:15-0400 Systolic blood pressure 161 mm[Hg] Yoli Jericho DPM Work Phone: [facility] Comment on above: pt asymptomatic 12-27-2023 14:10-0400 Body temperature 97.7 [degF] Yoli Jericho DPM Work Phone: [facility] 12-27-2023 14:10-0400 Diastolic blood pressure 90 mm[Hg] Yoli Jericho DPM Work Phone: [facility] 12-27-2023 14:10-0400 Heart rate 91 /min Yoli Jericho DPM Work Phone: [facility] 12-27-2023 14:10-0400 Respiratory rate 18 /min Yoli Jericho DPM Work Phone: [facility] 12-27-2023 14:10-0400 Systolic blood pressure 168 mm[Hg] Yoli Jericho DPM Work Phone: [facility] 12-13-2023 14:06-0400 Body temperature 97.81 [degF] Yoli Jericho DPM Work Phone: [facility] 12-13-2023 14:06-0400 Diastolic blood pressure 89 mm[Hg] Yoli Jericho DPM Work Phone: [facility] 12-13-2023 14:06-0400 Heart rate 77 /min Yoli Jericho DPM Work Phone: [facility] 12-13-2023 14:06-0400 Respiratory rate 16 /min Yoli Jericho DPM Work Phone: [facility] 12-13-2023 14:06-0400 Systolic blood pressure 165 mm[Hg] Yoli Jericho DPM Work Phone: [facility] 12-06-2023 14:00-0400 Body temperature 97.59 [degF] Yoli Jericho DPM Work Phone: [facility] 12-06-2023 14:00-0400 Diastolic blood pressure 77 mm[Hg] Yoli Jericho DPM Work Phone: [facility] 12-06-2023 14:00-0400 Heart rate 77 /min Yoli Jericho DPM Work Phone: [facility] 12-06-2023 14:00-0400 Respiratory rate 18 /min Yoli Jericho DPM Work Phone: [facility] 12-06-2023 14:00-0400 Systolic blood pressure 151 mm[Hg] Yoli Jericho DPM Work Phone: [facility] 12-01-2023 15:21-0400 Body height 177.8 cm Oksana Obando RN [facility] 12-01-2023 15:21-0400 Body weight 124.74 kg Oksana Obando RN [facility] 11-05-2023 08:38-0500 Body height 177.8 cm Federico Donny PIPELINER[employer] Work Phone: [facility] 11-05-2023 08:38-0500 Body weight 134.81 kg Federico Donny PIPELINER[employer] Work Phone: [facility] 11-05-2023 08:38-0500 Diastolic blood pressure 78 mm[Hg] Federico Donny PIPELINER[employer] Work Phone: [facility] 11-05-2023 08:38-0500 Heart rate 104 /min Federico Donny PIPELINER[employer] Work Phone: [facility] 11-05-2023 08:38-0500 Respiratory rate 24 /min Federico Donny PIPELINER[employer] Work Phone: [facility] 11-05-2023 08:38-0500 SaO2% (BldA) [Mass fraction] 97 % Federico Donny PIPELINER[employer] Work Phone: [facility] 11-05-2023 08:38-0500 Systolic blood pressure 142 mm[Hg] Federico Donny PIPELINER[employer] Work Phone: [facility] 09-04-2023 09:35-0500 Diastolic Blood Pressure Non-Invasive 70 mm[Hg] ROZ DE DO [facility] 09-04-2023 09:35-0500 Systolic Blood Pressure Non-Invasive 124 mm[Hg] ROZ DE DO [facility] 09-04-2023 09:14-0500 Blood Pressure Cuff Size ROZ DE DO [facility] 09-04-2023 09:14-0500 Blood Pressure Location ROZ DE DO [facility] 09-04-2023 09:14-0500 Blood Pressure Method ROZ DE DO [facility] 09-04-2023 09:14-0500 Body temperature 97.34 [degF] ROZ KATLE DO [facility] 09-04-2023 09:14-0500 Diastolic Blood Pressure Non-Invasive 70 mm[Hg] ROZ SHEARERATZLE DO [facility] [place] 09-04-2023 09:14-0500 Heart rate 68 /min ROZ KATLE DO [facility] 09-04-2023 09:14-0500 Reason For Taking VItal Signs ROZ KATLE DO [facility] [place] 09-04-2023 09:14-0500 Systolic Blood Pressure Non-Invasive 124 mm[Hg] ROZ KATLE DO [facility] [place] 09-04-2023 06:20-0500 Body weight 129.6 kg ROZ KATLE DO [facility] 09-04-2023 06:04-0500 Body temperature 97.88 [degF] ROZ KATLE DO [facility] [place] 09-04-2023 06:04-0500 Heart rate 73 /min ROZ SHEARERATZLE DO [facility] 09-04-2023 06:04-0500 Reason For Taking VItal Signs ROZ SHEARERATZLE DO [facility] 09-03-2023 21:33-0500 Diastolic Blood Pressure Non-Invasive 68 mm[Hg] ROZ SHEARERATZLE DO [facility] 09-03-2023 21:33-0500 Systolic Blood Pressure Non-Invasive 134 mm[Hg] ROZ SHEARERATZLE DO [facility] 09-03-2023 19:04-0500 Heart rate 82 /min ROZ SHEARERATZLE DO [facility] [place] 09-03-2023 19:04-0500 Reason For Taking VItal Signs ROZ SHEARERATZLE DO [facility] [place] 09-03-2023 19:04-0500 Respiratory rate 18 /min ROZ SHEARERATZLE DO [facility] [place] 09-03-2023 16:58-0500 Blood Pressure Cuff Size ROZ JANKIATZLE DO [facility] [place] 09-03-2023 16:58-0500 Blood Pressure Location ROZ SCHEATZLE DO [facility] [place] [facility] 09-03-2023 16:58-0500 Blood Pressure Method ROZ SHEARERATZLE DO [facility] [place] 09-03-2023 16:58-0500 Body temperature 98.42 [degF] ROZ SHEARERATZLE DO [place] [place] 09-03-2023 16:58-0500 Heart rate 86 /min ROZ SHEARERATZLE DO [facility] [place] 09-03-2023 16:58-0500 Respiratory rate 18 /min ROZ SHEARERATZLE DO [facility] [place] 09-03-2023 07:50-0500 Blood Pressure Cuff Size ROZ SHEARERATZLE DO [facility] [place] 09-03-2023 07:50-0500 Blood Pressure Location ROZ SCHEATZLE DO [facility] [place] 09-03-2023 07:50-0500 Blood Pressure Method ROZ SCHEATZLE DO [facility] [place] 09-03-2023 07:50-0500 Heart rate 66 /min ROZ SCHEATZLE DO [facility] [place] 09-03-2023 05:16-0500 Respiratory rate 18 /min ROZ SCHEATZLE DO [facility] [place] 09-02-2023 12:21-0500 Body weight 129.6 kg ROZ SCHEATZLE DO [place] [place] Comment on above: Result Comment: per aide 09-01-2023 16:25-0500 Heart rate 84 /min ROZ SCHEATZLE DO [facility] [place] 08-28-2023 03:00-0500 Body weight 131.6 kg ROZ SCHEATZLE DO [facility] [place] 08-27-2023 14:18-0500 Body weight 42.01 kg/m2 ROZ SCHEATZLE DO [place] [place] 08-26-2023 16:21-0500 Body height 177 cm ROZ SCHEATZLE DO [facility] [place] 08-26-2023 16:21-0500 Body weight 42.01 kg/m2 ROZ SCHEATZLE DO [facility] [place] 08-25-2023 15:39-0500 Body height 177 cm ROZ SCHEATZLE DO [facility] [place] 08-25-2023 15:39-0500 Body weight 37.63 kg/m2 ROZ SCHEATZLE DO [facility] [place] 07-27-2023 09:41-0500 Body height 177.8 cm Kacie Montenegro DO Work Phone: [facility] 07-27-2023 09:41-0500 Body weight 124.74 kg Kacie Meiler DO Work Phone: [facility] 05-28-2023 09:44-0400 Body height 177.8 cm Charles Beltran DO Work Phone: [facility] 05-28-2023 09:44-0400 Body weight 124.76 kg Charles [email or web address] DO Work Phone: [facility] 05-28-2023 09:44-0400 Diastolic blood pressure 82 mm[Hg] Chrales Gross DO Work Phone: [facility] 05-28-2023 09:44-0400 Heart rate 56 /min Charles [email or web address] DO Work Phone: [facility] 05-28-2023 09:44-0400 SaO2% (BldA) [Mass fraction] 94 % Charles [email or web address] DO Work Phone: [facility] 05-28-2023 09:44-0400 Systolic blood pressure 140 mm[Hg] Charles [email or web address] DO Work Phone: [facility] 05-15-2023 16:52-0400 SaO2% (BldA) [Mass fraction] 94 % KAMRON CATALANGUE [facility] Comment on above: Order Comment: NOTIFY RT? Y Performed By: #### L 100.1060 ####ML - [facility] [id number] [place] [address] 11-25-2022 10:35-0400 Body height 177.8 cm Ramila Tuttle APRN.DRONE PILOT Work Phone: [facility] 11-25-2022 10:35-0400 Body weight 127.06 kg Ramila Tuttle APRN.DRONE PIL[employer] Work Phone: [facility] 11-25-2022 10:35-0400 Diastolic blood pressure 82 mm[Hg] Ramila Tuttle PIPELINER.DRONE PILOT Work Phone: [facility] 11-25-2022 10:35-0400 Heart rate 61 /min Ramila Tuttle APRN.DRONE PIL[employer] Work Phone: [facility] 11-25-2022 10:35-0400 SaO2% (BldA) [Mass fraction] 99 % Ramila Tuttle APRN.DRONE PILOT Work Phone: [facility] 11-25-2022 10:35-0400 Systolic blood pressure 154 mm[Hg] Ramila Parag GONZALEZ Work Phone: [facility] 11-10-2022 05:02-0500 SaO2% (BldA) [Mass fraction] 93 % [facility] Comment on above: Order Comment: NOTIFY RT? Y Performed By: #### L 100.1060 ####ML - [facility] [id number] [place] [address] 11-10-2022 03:04-0500 SaO2% (BldA) [Mass fraction] 93 % Provider [facility] 10-25-2022 02:26-0500 SaO2% (BldA) [Mass fraction] 94 % [facility] Comment on above: Order Comment: NOTIFY RT? Y Performed By: #### L 100.1060 ####ML - [facility] [id number] [place] [address] Encounters Encounter Date Encounter Type Care Provider Facility Start: 03-08-2025 ambulatory [facility] Facility :[facility] Start: 02-06-2025 Non-patient / Non-visit Dr. Hugo arriaza MD -[facility] Start: 02-06-2025 End: 02-06-[address] Kamron Lepe MD Work Phone: [facility] Work Phone: Start: 02-06-2025 End: 02-06-2025 Patient encounter procedure Lilia SANDOVAL -[facility] Work Phone: Start: 02-06-2025 End: 02-06-2025 ambulatory Lilia Martin Facility:[facility] Start: 02-03-2025 Encounter for other preprocedural examination Hugo Alvarado [facility] Start: 01-23-2025 End: 01-23-2025 Patient encounter procedure Lilia SANDOVAL -[facility] Work Phone: Start: 01-23-2025 End: 01-23-[address] Kamron Lepe MD Work Phone: [facility] Work Phone: Start: 01-09-2025 ambulatory Kamron Lepe Facility :[facility] Start: 01-09-2025 Non-patient / Non-visit Dr. Hugo arriaza MD -[facility] Start: 01-09-2025 End: 01-09-2025 Admission to same day surgery center Dr. Hugo Alvarado MD -[facility] Start: 01-09-2025 End: 01-09-2025 ambulatory Kamron Lepe Facility:[facility] Start: 01-05-2025 End: 01-05-2025 ambulatory CINDY FALCON [facility] Start: 12-29-2024 ambulatory ZARA [facility] Start: 12-26-2024 End: 12-27-2024 ambulatory KAMRON LEPE Facility:[id number] Start: 12-07-2024 End: 12-07-2024 ambulatory HUGO ALVARADO Facility:[id number] Start: 11-16-2024 End: 11-16-[address] Hugo Alvarado MD -[facility] Work Phone: Start: 11-16-2024 End: 11-16-2024 ambulatory Kamron Lepe Facility:[facility] Start: 11-02-2024 End: 11-02-[address] CINDY FALCON MD Facility:[facility] Start: 11-02-2024 End: 11-02-[address] CINDY FALCON MD [facility] Start: 10-05-2024 End: 10-05-2024 Patient encounter procedure [place] PIPELINER.DRONE PILOT Work Phone: [facility] Comment on above: Longstanding persist ent atrial fibrillation (HCC) (Primary Dx); Chronic heart failure with preserved ejection fraction (HFpEF) (HCC); Primary hypertension; Chronic kidney disease on chronic dialysis (HCC); Overweight with body mass index (BMI) of 28 to 28.9 in adult Start: 10-05-2024 End: 10-05-2024 ambulatory FED[place]ICO [place] Facility:[id number] Start: 09-28-2024 End: 09-28-2024 Patient encounter procedure Lilia SANDOVAL -[facility] Work Phone: Start: 09-28-2024 End: 09-28-2024 ambulatory Lilia Martin Facility:[facility] Start: 09-12-2024 ambulatory Kamron Lepe Facility :[facility] Start: 09-12-2024 End: 09-12-2024 ambulatory Kamron Sherley Facility:[facility] Start: 08-21-2024 End: 08-21-2024 ambulatory [facility] Facility:[facility] Start: 07-29-2024 End: 07-29-2024 ambulatory KAMRON LEPE Facility:[id number] Start: 07-22-2024 End: 07-24-2024 ambulatory KAMRON LEPE Facility:[id number] Start: 06-26-2024 ambulatory [facility] Facility :[facility] Start: 06-26-2024 End: 06-26-2024 ambulatory [facility] Facility:[facility] Start: 06-06-2024 End: 06-06-2024 Telephone encounter Oksana Obando RN [facility] Start: 05-03-2024 End: 05-03-2024 Patient encounter procedure Ngozi Vigil MD Work Phone: [facility] Comment on above: 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) (Primary Dx) Start: 05-03-2024 End: 05-03-2024 ambulatory NGOZI VIGIL Facility:[id number] Start: 04-27-2024 End: 04-27-2024 Patient encounter procedure Gilmer Olivia DPM Work Phone: [facility] Comment on above: Chronic venous hyper tension (idiopathic) with ulcer of bilateral lower extremity (CODE) (HCC) (Primary Dx); Non-pressure chronic ulcer of other part of left lower leg with fat layer exposed (HCC); 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); Secondary lymphedema; Type 2 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); Diabetic polyneuropathy associated with type 2 diabetes mellitus (HCC); group home current use of insulin (HCC); ESRD (end stage renal disease) on dialysis (HCC) Start: 04-27-2024 End: 04-27-2024 ambulatory GILMER WADE CORWIN Facility:[id number] Start: 04-20-2024 End: 04-20-2024 Patient encounter procedure Gilmer Olivia DPM Work Phone: [facility] Comment on above: Chronic venous hyper tension (idiopathic) with ulcer of bilateral lower extremity (CODE) (HCC) (Primary Dx); Non-pressure chronic ulcer of other part of left lower leg with fat layer exposed (HCC); 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); Secondary lymphedema; Type 2 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); Diabetic polyneuropathy associated with type 2 diabetes mellitus (HCC); group home current use of insulin (HCC); ESRD (end stage renal disease) on dialysis ([facility]) Start: 04-20-2024 End: 04-20-2024 ambulatory GILMER SANTOSDE OLIVIA Facility:[id number] Start: 04-13-2024 Telephone encounter Oksana christie RN [facility] Start: 04-13-2024 End: 04-13-[address] KAMRON LEPE MD Facility:A Start: 04-13-2024 End: 04-13-[address] CINDY FALCON MD [facility] Start: 04-06-2024 End: 04-06-2024 Patient encounter procedure Gilmer Olivia DPM Work Phone: [facility] Comment on above: Chronic venous hyper tension (idiopathic) with ulcer of bilateral lower extremity (CODE) (HCC) (Primary Dx); Non-pressure chronic ulcer of other part of left lower leg with fat layer exposed (HCC); 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); Secondary lymphedema; Type 2 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); Diabetic polyneuropathy associated with type 2 diabetes mellitus (HCC); group home current use of insulin (HCC); ESRD (end stage renal disease) on dialysis (HCC) Start: 04-06-2024 End: 04-06-2024 ambulatory GILMER ARSALAN OLIVIA Facility:[id number] Start: 04-03-2024 Telephone encounter Federico acuña APRN.DRONE PILOT Work Phone: [facility] Comment on above: Medication Problem Start: 03-31-2024 End: 03-31-2024 Patient encounter procedure [place] PIPELINER.DRONE PILOT Work Phone: [facility] Comment on above: Longstanding persist ent atrial fibrillation (HCC) (Primary Dx); Chronic heart failure with preserved ejection fraction (HFpEF) (HCC); Moderate concentric left ventricular hypertrophy; Primary hypertension; Stage 4 chronic kidney disease (HCC); Chronic kidney disease on chronic dialysis (HCC); Type 2 diabetes mellitus with stage 4 chronic kidney disease, with long-term current use of insulin (HCC); Class 1 obesity due to excess calories with serious comorbidity and body mass index (BMI) of 30.0 to 30.9 in adult; NYHA class 3 heart failure with preserved ejection fraction (HCC) Start: 03-31-2024 End: 03-31-2024 ambulatory [place] Facility:[id number] Start: 03-30-2024 End: 03-30-2024 Patient encounter procedure Gilmer Olivia DPM Work Phone: [facility] Comment on above: Chronic venous hyper tension (idiopathic) with ulcer of bilateral lower extremity (CODE) (HCC) (Primary Dx); Non-pressure chronic ulcer of other part of left lower leg with fat layer exposed (HCC); 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); Secondary lymphedema; Type 2 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); Diabetic polyneuropathy associated with type 2 diabetes mellitus (HCC); historical site guide current use of insulin (HCC); ESRD (end stage renal disease) on dialysis (HCC) Start: 03-30-2024 End: 03-30-2024 ambulatory GILMER OLIVIA Facility:[id number] Start: 03-23-2024 End: 03-23-2024 Patient encounter procedure Gilmer Arsalan Olivia DPM Work Phone: [facility] Comment on above: Chronic venous hyper tension (idiopathic) with ulcer of bilateral lower extremity (CODE) (HCC) (Primary Dx); Non-pressure chronic ulcer of other part of left lower leg with fat layer exposed (HCC); 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); Secondary lymphedema; Type 2 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); Diabetic polyneuropathy associated with type 2 diabetes mellitus (HCC); historical site guide current use of insulin (HCC) Start: 03-23-2024 End: 03-23-2024 ambulatory GILMER OLIVIA Facility:[id number] Start: 03-20-2024 Telephone encounter Oksana christie RN [facility] Start: 03-13-2024 Telephone encounter Yoli Echavarria DPM Work Phone: [facility] Start: 03-05-2024 End: 03-11-2024 Evaluation and management of inpatient KAMRON LEPE Facility:[id number] Start: 02-29-2024 Telephone encounter Oksana christie RN [facility] Start: 02-28-2024 End: 02-28-2024 Patient encounter procedure Yoli Echavarria DPM Work Phone: [facility] Comment on above: Chronic venous hyper tension (idiopathic) with ulcer of bilateral lower extremity (CODE) (HCC) (Primary Dx); Non-pressure chronic ulcer of other part of left lower leg with fat layer exposed (HCC); 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); Secondary lymphedema; Type 2 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); historical site guide current use of insulin (HCC); Diabetic polyneuropathy associated with type 2 diabetes mellitus (HCC) Start: 02-28-2024 End: 02-28-2024 ambulatory YOLI ECHAVARRIA Facility:[id number] Start: 02-17-2024 Telephone encounter Federico acuña APRN.CNP Work Phone: [facility] Comment on above: Patient Question Start: 01-31-2024 End: 01-31-2024 Patient encounter procedure Yoli Echavarria DPM Work Phone: [facility] Comment on above: Chronic venous hyper tension (idiopathic) with ulcer of bilateral lower extremity (CODE) (HCC) (Primary Dx); Non-pressure chronic ulcer of other part of left lower leg with fat layer exposed (HCC); 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); Secondary lymphedema; Type 2 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); group home current use of insulin (HCC) Start: 01-31-2024 End: 01-31-2024 ambulatory YOLI ECHAVARRIA Facility:[id number] Start: 01-17-2024 End: 01-17-2024 Patient encounter procedure Yoli Echavarria DPM Work Phone: [facility] Comment on above: Chronic venous hyper tension (idiopathic) with ulcer of bilateral lower extremity (CODE) (HCC) (Primary Dx); Non-pressure chronic ulcer of other part of left lower leg with fat layer exposed (HCC); 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); Secondary lymphedema; Type 2 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); historical site guide current use of insulin (HCC) Start: 01-17-2024 End: 01-17-2024 ambulatory YOLI ECHAVARRIA Facility:[id number] Start: 01-04-2024 Telephone encounter Oksana christie RN [facility] Start: 01-03-2024 Telephone encounter Oksana christie RN [facility] Start: 12-27-2023 End: 12-27-2023 Patient encounter procedure Yoli Echavarria DPM Work Phone: [facility] Comment on above: Chronic venous hyper tension (idiopathic) with ulcer of bilateral lower extremity (CODE) (HCC) (Primary Dx); Non-pressure chronic ulcer of other part of left lower leg with fat layer exposed (HCC); 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); Secondary lymphedema; Type 2 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); historical site guide current use of insulin (HCC); Diabetic polyneuropathy associated with type 2 diabetes mellitus (HCC); Chronic foot ulcer, right, with fat layer exposed (HCC); Ulcer of foot, left, limited to breakdown of skin (HCC) Start: 12-14-2023 Telephone encounter Oksana christie RN [facility] Start: 12-13-2023 End: 12-13-2023 Patient encounter procedure Yoli Echavarria DPM Work Phone: [facility] Comment on above: Chronic venous hyper tension (idiopathic) with ulcer of bilateral lower extremity (CODE) (HCC) (Primary Dx); Non-pressure chronic ulcer of other part of left lower leg with fat layer exposed (HCC); 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); Non-pressure chronic ulcer of right heel and midfoot with fat layer exposed (HCC); Secondary lymphedema; Type 2 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); historical site guide current use of insulin (HCC); Diabetic polyneuropathy associated with type 2 diabetes mellitus (HCC) Start: 12-06-2023 End: 12-06-2023 Patient encounter procedure Yoli Echavarria DPM Work Phone: [facility] Comment on above: Non-pressure chronic ulcer of other part of left lower leg with fat layer exposed (HCC) (Primary Dx); Chronic venous hypertension (idiopathic) with ulcer of bilateral lower extremity (CODE) (HCC); 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); Non-pressure chronic ulcer of right heel and midfoot with fat layer exposed (HCC); Secondary lymphedema; Type 2 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); group home current use of insulin (HCC); Diabetic polyneuropathy associated with type 2 diabetes mellitus (HCC) Start: 12-01-2023 Chart abstracting Oksana Obando RN [facility] Start: 11-05-2023 End: 11-05-2023 Patient encounter procedure [place] APRN.DRONE PILOT Work Phone: [facility] Comment on above: Chronic heart failur e with preserved ejection fraction (HFpEF) (HCC) (Primary Dx); Paroxysmal atrial fibrillation (HCC); Primary hypertension; Stage 4 chronic kidney disease (HCC); Class 3 severe obesity due to excess calories with serious comorbidity and body mass index (BMI) of 40.0 to 44.9 in adult (HCC) Start: 10-25-2023 Evaluation and manag ement of inpatient BELEN MORENO Facility:[id number] Start: 09-05-2023 End: 09-20-[address] KAMRON LEPE MD Facility:R Start: 08-26-2023 End: 09-04-2023 Evaluation and management of inpatient ROZ DE DO [facility] Andrei Start: 08-17-2023 End: 08-26-2023 ambulatory JUSTICE JAZMÍN Facility:[id number] Start: 07-27-2023 End: 07-27-2023 Patient encounter procedure Kacie Montenegro DO Work Phone: [facility] Comment on above: Stage 4 chronic kidn ey disease (HCC) (Primary Dx); Paroxysmal atrial fibrillation (HCC) Start: 06-29-2023 Refill Charles latif DO Work Phone: [facility] Comment on above: Refill Request Start: 05-28-2023 End: 05-28-2023 Patient encounter procedure Charles Beltran DO Work Phone: [facility] Comment on above: Paroxysmal atrial fi brillation (HCC) (Primary Dx); Hypertension, unspecified type; HFrEF (heart failure with reduced ejection fraction) (HCC); Controlled type 2 diabetes mellitus without complication, unspecified whether prison insulin use (HCC); Chronic kidney disease, unspecified CKD stage; group home current use of anticoagulant; History of echocardiogram; Former smoker Start: 05-15-2023 End: 2023 Evaluation and management of inpatient ELIOT MELGAR Facility:[facility] Start: 05-11-2023 Telephone encounter Kacie fagan DO Work Phone: [facility] Comment on above: Appointment Start: 04-24-2023 ambulatory DANIELA Giraldo ty:[facility] Start: 04-24-2023 End: 04-24-2023 Subsequent hospital visit by physician Daniela Dumas MD Work Phone: [facility] Comment on above: N17.9 E11.65 Start: 02-27-2023 ambulatory JULIANNE Jamison ility:[facility] Start: 02-27-2023 End: 02-27-2023 Subsequent hospital visit by physician Provider [facility] Comment on above: N18.32 I12.9 D63.1 Start: 01-28-2023 ambulatory DANIELA Giraldo ty:[facility] Start: 01-28-2023 End: 01-28-2023 Subsequent hospital visit by physician Provider [facility] Comment on above: E11.65 Start: 12-29-2022 ambulatory LY Marcelo MEYER Facility:[facility] Start: 11-28-2022 ambulatory JULIANNE Jamison ility:[facility] Start: 11-25-2022 End: 11-25-2022 Patient encounter procedure Ramila Tuttle APRN.DRONE PILOT Work Phone: [facility] Comment on above: Hospital discharge f ollow-up (Primary Dx); Congestive heart failure, unspecified HF chronicity, unspecified heart failure type (HCC); Paroxysmal atrial fibrillation (HCC); Current use of prison anticoagulation; SOB (shortness of breath); Essential hypertension; Bilateral lower extremity edema; History of diabetes mellitus; Former smoker Start: 11-10-2022 End: 11-14-2022 Evaluation and management of inpatient MAURISIO BROWN Facility:[facility] Start: 11-10-2022 End: 11-14-2022 Subsequent hospital visit by physician Provider [facility] Comment on above: Discharge Summary - Chino Cruz MD - 11/14/2022 1:52 PM EST [facility] [address] HEALTH INFORMATION MANAGEMENT DISCHARGE SUMMARY Patient: ROZ BAKER TIKAL M.D. [id number] M Status: ADM IN [facility] 2229-A Date of Admission: 11/10/22 Discharge Summary Date of Discharge: 11/14/22 Discharge Diagnosis: 1. Acute decompensated heart failure A&P Patient presented with SOB and swelling of both lower extremities after being discharged from the hospital for the same reason a week ago porbNP 3266 ECHO s/o EF 55-60% Edema is improving Plan CONTINUE bumex 1 mg BiD CONTINUE albumin 12.5 gm IVP q8h CONTINUE metoprolol tartarte 50 mg BiD CONTINUE empaglifozin 10 mg daily Talked with Dr. James today and he is okay to discharge the patient home. Agree with the plan. 2. Acute renal failure superimposed on chronic kidney disease A&P Creat 3.10 today Nephrology on board PLan CONTINUE bumex 1 mg BiD 3. Hypertension A&P BP in acceptable range Plan BP in acceptable range Plan CONTINUE hydralazine 50 mg TiD CONTINUE metoprpoolol tararte 75 mg BiD 4. Diabetes A&P FS in acceptable range Plan CONTINUE sliding scale insulin 5. Chronic a-fib A&P Chronic Afib Currently in sinus rhythm Plan CONTINUE apixaban 5 mg BiD CONTINUE metoprolol tartartte 75 mg BiD 6. Obesities, morbid A&P BMI 40.5 PLan Diet and calorie restriction Defer further manegment to PCP on discharge HPI: A 72 year old male with PMHx of HTN, DM2, A.fib, CHF, CKD who presents to ED with c/o Worsening SON and productive cough x several days. Patient reports he was recently discharged from our hospital managed for CHF, was okay until 4 days ago, again he started having SOB, Productive cough with greenish sputum. Patient denies any fever/chills, chest pain, nausea, vomiting, abdominal pain, Bowel/bladder changes. patient reports medication compliance. In the ED Patient was tachypneic with sats were in high 80s on RA, Sats were in 92-94 % on 3 L NC, lab work up significant for Hb-11.9, Na-133, BUN/Cr-57/2.85, Troponin elevated at 0.073, Pro bnp elevated at 7300s. CXR showed Findings suggestive of mild congestion/edema versus developing infectious or inflammatory process. Given Nitro patch, Lasix, IV Zosyn. Family history: Heart disease Hospital Course: Patient preesnted with worsening SOB and cough for 4 days. Of nte, he was recently admitted ot [facility] for CHF exacerbatoin, diuresed with IV furoesmide, his creaitnine was limitiing for furthe rdfiuresis and he wsa discharged with po furosemide. He said he becomes thirsty at home and drank a lot of fluids. he came back within 7 to 8 days of discharge with similar ocmplaints. Tlaed with Dr. Beltran and we restared hte patein ton IV furosemide drip. As expected, the creatinie wsa bumped up a little with IV fursmide. Nephrology was okay with that. We decided to try Bumex drip this time. He made > 2 litres of urine with Bumex drip. e was changerd to po Biumex BiD and was stable. His creaitnine slighly improved wiht po bumex from IV bumex drip. Talked with cardiolgy tocassie and nephrology yesteday. They agree that we can dishcarge the patient however, the pateint will need to be compliant wiht fluid intake and might need HD in future. Dr. Dyson was alsmithaady alejandrauslted for AV fistula creation and it will be done as outpatient. Discharge Condition: Stable Disposition: Home CC: KAMRON LEPE M.D. 11/14/22 1401 CHINO CRUZ M.D. cc: << Signature on File>> Reported By: CHINO CRUZ M.D. Signed By: CHINO CRUZ M.D. Tests performed at: [address] [address] Start: 10-30-2022 ambulatory DANIELA Giraldo ty:[facility] Start: 10-30-2022 End: 10-30-2022 Subsequent hospital visit by physician Provider [facility] Comment on above: E11.65 E78.2 I10 Start: 10-27-2022 End: 10-30-2022 Evaluation and management of inpatient HYUN PEACOCK Facility:[facility] Start: 10-22-2022 ambulatory KAMRON Abdallai ty:[facility] Start: 10-22-2022 End: 10-22-2022 Subsequent hospital visit by physician Provider [facility] Comment on above: Z79.01 Start: 10-03-2022 ambulatory KAMRON Abdallai ty:[facility]I Start: 09-11-2022 ambulatory KAMRON Abdallai ty:[facility]I Start: 09-11-2022 End: 09-11-2022 Subsequent hospital visit by physician Provider [facility] Comment on above: Z79.01 Start: 08-14-2022 ambulatory KAMRON Abdallai ty:UNI Start: 08-14-2022 End: 08-14-2022 Subsequent hospital visit by physician Provider [facility] Comment on above: Z79.01 Start: 07-16-2022 ambulatory KAMRON Abdallai ty:UNI Start: 07-16-2022 End: 07-16-2022 Subsequent hospital visit by physician Provider [facility] Comment on above: Z79.01 Start: 06-20-2022 ambulatory KAMRON Abdallai ty:UNI Start: 06-20-2022 End: 06-20-2022 Subsequent hospital visit by physician Provider [facility] Comment on above: Z79.01 Start: 06-05-2022 End: 06-05-2022 Subsequent hospital visit by physician Provider [facility] Comment on above: Z79.01 Start: 05-01-2022 End: 05-01-2022 Subsequent hospital visit by physician Provider [facility] Comment on above: E11.65 Start: 04-17-2022 End: 04-17-2022 Subsequent hospital visit by physician Provider [facility] Comment on above: Z79.01 Start: 01-16-2022 End: 01-16-2022 Subsequent hospital visit by physician Provider [facility] Comment on above: STANDING ORDER Start: 12-13-2021 End: 12-13-2021 Subsequent hospital visit by physician Provider [facility] Comment on above: ANTICOAGULATION THER APY Start: 01-26-2021 End: 01-26-2021 Subsequent hospital visit by physician Provider [facility] Comment on above: GI BLEED/DKA/AFIB Start: 06-08-2020 End: 06-08-2020 Subsequent hospital visit by physician Provider [facility] Comment on above: REDRAW Start: 06-07-2020 End: 06-07-2020 Subsequent hospital visit by physician Provider [facility] Comment on above: DIABETES 2 HTN ATRIA L FIB Start: 07-19-2017 End: 07-19-2017 Ambulatory MELANIE WEN([facility] Start: 07-05-2017 End: 07-05-2017 Ambulatory MELANIE WEN([facility]) [facility] Start: 05-10-2017 End: 05-10-2017 Ambulatory DEM.DA Facility: Procedures Date Procedure Procedure Detail Performing Clinician Start: 01-09-2025 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 Kamron Lepe MD Work Phone: Start: 01-09-[address] Kamron Lepe MD Work Phone: Start: 10-05-2024 Ecg routine ecg w/le ast 12 lds i&r only [place] PIPELINER.DRONE PILOT Work Phone: Start: 07-22-2024 Antibody screen HUGO GUTIERREZ Comment on above: Order Comment: Speci men Type: BLOOD SPECIMENOrdering Facility: [facility] Address: [address] [place] [address] Performed By: #### T SCR ####MICHAEL BLOOD BANKCLIA [id number] [place] [id number] [place] Start: 03-31-2024 Ecg routine ecg w/le ast 12 lds i&r only [place] PIPELINER.[employer] P[employer] Work Phone: Start: 11-05-2023 Ecg routine ecg w/le ast 12 lds i&r only [place] PIPELINER.[employer] Work Phone: Start: 10-28-2023 Antibody screen JUSTICE RAW AL Comment on above: Order Comment: Speci men Type: BLOOD SPECIMENOrdering Facility: [facility] Address: [address] [place] [address] Performed By: #### T SCR ####[facility] BLOOD BANKCLIA [id number] [address] [place] Start: 05-15-2023 Electrocardiogram JORGE IP SHERLEY Start: 04-24-2023 ALBUMIN/CREAT RATIO RND UR Daniela Dumas MD Work Phone: Start: 04-24-2023 ALT/SGPT Daniela Dumas MD Work Phone: Start: 04-24-2023 AST/SGOT BLD Daniela Dumas MD Work Phone: Start: 04-24-2023 BASIC METABOLIC PNL Ema Dumas MD Work Phone: Start: 04-24-2023 CBC + DIFF Julianne rocha MD Work Phone: Start: 04-24-2023 Hemoglobin A1c/Hemoglobin.total in Blood Daniela Dumas MD Work Phone: Start: 04-24-2023 RENAL FUNCTION PANEL Yoseph Dumas MD Work Phone: Start: 02-27-2023 CBC + DIFF Julianne rocha MD Work Phone: Start: 02-27-2023 CREATININE RANDOM UR Yoseph Dumas MD Work Phone: Start: 02-27-2023 FERRITIN BLD Julianne rocha MD Work Phone: Start: 02-27-2023 IRON + TIBC Julianne rocha MD Work Phone: Start: 02-27-2023 PROTEIN RANDOM UR Camden MCGUIRE Work Phone: Start: 02-27-2023 PTH INTACT BLD Julianne Dumas MD Work Phone: Start: 02-27-2023 RENAL FUNCTION PANEL Da edgar Dumas MD Work Phone: Start: 02-27-2023 URIC ACID BLOOD Ariel Dumas MD Work Phone: Start: 01-28-2023 ALT/SGPT Daniela Dumas MD Work Phone: Start: 01-28-2023 AST/SGOT BLD Daniela Dumas MD Work Phone: Start: 01-28-2023 BASIC METABOLIC PNL Ema Dumas MD Work Phone: Start: 01-28-2023 Hemoglobin A1c/Hemoglobin.total in Blood Daniela Dumas MD Work Phone: Start: 01-28-2023 LIPID PANEL BASIC Vicky Dumas MD Work Phone: Start: 01-28-2023 Lipid 1996 panel - S aaliyah or Plasma Charles Gross DO Work Phone: Start: 11-14-2022 GLUCOSE FASTING BLD Latanya Rivera MD Work Phone: Start: 11-14-2022 BASIC METABOLIC PNL Curly Cook MD Work Phone: Start: 11-14-2022 CBC + DIFF Chino delarosa MD Work Phone: Start: 11-14-2022 HEPATIC FUNCTION PNL Porfirio Cruz MD Work Phone: Start: 11-13-2022 GLUCOSE FASTING BLD Latanya Rivera MD Work Phone: Start: 11-13-2022 GLUCOSE FASTING BLD Latanya Rivera MD Work Phone: Start: 11-13-2022 GLUCOSE FASTING BLD Latanya Rivera MD Work Phone: Start: 11-13-2022 BASIC METABOLIC PNL Curly Cook MD Work Phone: Start: 11-13-2022 CBC + DIFF Suraj Rivera MD Work Phone: Start: 11-13-2022 HEPATIC FUNCTION PNL Porfirio Cruz MD Work Phone: Start: 11-12-2022 GLUCOSE FASTING BLD Latanya hoang Rivera MD Work Phone: Start: 11-12-2022 GLUCOSE FASTING BLD Latanya hoang Rivera MD Work Phone: Start: 11-12-2022 GLUCOSE FASTING BLD Latanya Rivera MD Work Phone: Start: 11-12-2022 BASIC METABOLIC PNL Curly Cook MD Work Phone: Start: 11-12-2022 CBC + DIFF Chino delarosa MD Work Phone: Start: 11-12-2022 HEPATIC FUNCTION PNL Porfirio Cruz MD Work Phone: Start: 11-12-2022 MAGNESIUM BLD Sadaf lange APRN.DRONE PILOT Work Phone: Start: 11-11-2022 GLUCOSE FASTING BLD Latanya Rivera MD Work Phone: Start: 11-11-2022 End: 11-11-2022 GLUCOSE FASTING BLD Suraj Rivera MD Work Phone: Start: 11-11-2022 EOSINOPHIL SMEAR Neela Dumas MD Work Phone: Start: 11-11-2022 BASIC METABOLIC PNL Curly Cook MD Work Phone: Start: 11-11-2022 CBC + DIFF Chino delarosa MD Work Phone: Start: 11-11-2022 HEPATIC FUNCTION PNL Porfirio Cruz MD Work Phone: Start: 11-11-2022 TROPONIN T Chino delarosa MD Work Phone: Start: 11-10-2022 GLUCOSE FASTING BLD Latanya Rivera MD Work Phone: Start: 11-10-2022 GLUCOSE FASTING BLD Latanya Rivera MD Work Phone: Start: 11-10-2022 TROPONIN T Suraj Rivera MD Work Phone: Start: 11-10-2022 Electrocardiogram JORGE IP SHERLEY Start: 11-10-2022 BLOOD GASES ARTERIAL El shwetha Ledesmalauren Marv Work Phone: Start: 11-10-2022 EXPEDITED COVID19 Maurisio Ledesmamarcelllaura Brown Work Phone: Start: 11-10-2022 FLU BY PCR ([facility]ION) Lynn n Que Brown Work Phone: Start: 11-10-2022 Ecg routine ecg w/le ast 12 lds trcg only w/o i&r [facility] Provider Start: 11-10-2022 BASIC METABOLIC PNL Ell en Que Brown Work Phone: Start: 11-10-2022 CBC + DIFF Maurisio Brown Work Phone: Start: 11-10-2022 HEPATIC FUNCTION PNL El shwetha Helmbetolaura Brown Work Phone: Start: 11-10-2022 NT PRO BNP Maurisio Ledesmapatricia pérezlaura Brown Work Phone: Start: 11-10-2022 PROCALCITONIN (LAB) Latanya Rivera MD Work Phone: Start: 11-10-2022 TROPONIN T Maurisio Alicja Rinconts Work Phone: Start: 11-10-2022 Radiologic exam ches t single view Maurisio Que Rinconts Work Phone: Start: 10-30-2022 ALT/SGPT Daniela Dumas MD Work Phone: Start: 10-30-2022 AST/SGOT BLD Daniela Dumas MD Work Phone: Start: 10-30-2022 BASIC METABOLIC PNL Ema Dumas MD Work Phone: Start: 10-30-2022 Hemoglobin A1c/Hemoglobin.total in Blood Daniela Dumas MD Work Phone: Start: 10-24-2022 Electrocardiogram JORGE LEPE Start: 10-22-2022 PROTHROMBIN TIME/PT Phi yokasta Lepe MD Work Phone: Start: 09-11-2022 PROTHROMBIN TIME/PT Phi yokasta Lepe MD Work Phone: Start: 08-14-2022 PROTHROMBIN TIME/PT Phi yokasta Lepe MD Work Phone: Start: 07-16-2022 PROTHROMBIN TIME/PT Phi yokasta Lepe MD Work Phone: Start: 06-20-2022 PROTHROMBIN TIME/PT Phi yokasta Lepe Work Phone: Start: 06-05-2022 PROTHROMBIN TIME/PT Phi yokasta Lepe Work Phone: Start: 05-01-2022 ALT/SGPT Daniela Dumas MD Work Phone: Start: 05-01-2022 AST/SGOT BLD Daniela Dumas MD Work Phone: Start: 05-01-2022 BASIC METABOLIC PNL Ema Dumas MD Work Phone: Start: 05-01-2022 Hemoglobin A1c/Hemoglobin.total in Blood Daniela Dumas MD Work Phone: Start: 04-17-2022 PROTHROMBIN TIME/PT Phi yokasta Lepe Work Phone: Start: 01-16-2022 PROTHROMBIN TIME/PT Phi yokasta Lepe Work Phone: Start: 12-13-2021 PROTHROMBIN TIME/PT Phi yokasta Lepe Work Phone: Start: 01-27-2021 GLUCOSE FASTING BLD Dilip man Brandon Work Phone: Start: 01-27-2021 BASIC METABOLIC PNL Pro vider [facility] Start: 01-27-2021 MAGNESIUM BLD Provider [facility] Start: 01-27-2021 PHOSPHORUS INORGANIC Pr ovider [facility] Start: 01-27-2021 PROTHROMBIN TIME/PT [facility] Start: 01-27-2021 GLUCOSE FASTING BLD Dilip man Brandon Work Phone: Start: 01-27-2021 GLUCOSE FASTING BLD Dilip man Brandon Work Phone: Start: 01-27-2021 End: 01-27-2021 GLUCOSE FASTING BLD Casey Brandon Work Phone: Start: 01-27-2021 BASIC METABOLIC PNL Pro vider [facility] Start: 01-27-2021 MAGNESIUM BLD Provider [facility] Start: 01-27-2021 PHOSPHORUS INORGANIC Pr ovider [facility] Start: 01-26-2021 GLUCOSE FASTING BLD Dilip man Brandon Work Phone: Start: 01-26-2021 TROPONIN T Provider C [facility] Start: 01-26-2021 End: 01-26-2021 GLUCOSE FASTING BLD Casey Brandon Work Phone: Start: 01-26-2021 GLUCOSE FASTING BLD Dilip man Brandon Work Phone: Start: 01-26-2021 BASIC METABOLIC PNL Pro vider [facility] Start: 01-26-2021 LAC ACID (RFLX) (UNION) Provider [facility] Start: 01-26-2021 MAGNESIUM BLD Provider [facility] Start: 01-26-2021 PHOSPHORUS INORGANIC Pr ovider [facility] Start: 01-26-2021 TROPONIN T Provider C [facility] Start: 01-26-2021 GLUCOSE FASTING BLD Dilip man Brandon Work Phone: Start: 01-26-2021 GLUCOSE FASTING BLD Dilip man Brandon Work Phone: Start: 01-26-2021 BASIC METABOLIC PNL Pro vider [facility] Start: 01-26-2021 Hemoglobin A1c/Hemoglobin.total in Blood Provider [facility] Start: 01-26-2021 LACTIC ACID/LACTATE Pro vider [facility] Start: 01-26-2021 MAGNESIUM BLD Provider [facility] Start: 01-26-2021 PHOSPHORUS INORGANIC Pr ovider [facility] Start: 01-26-2021 TROPONIN T Provider C [facility] Start: 01-26-2021 Antibody screen Provide r [facility] Start: 01-26-2021 EXPEDITED COVID19 Provi greta [facility] Start: 01-26-2021 Radiologic exam ches t single view Provider [facility] Start: 01-26-2021 aPTT in Blood by Coagulation assay Provider [facility] Start: 01-26-2021 GASV + ALL Provider [facility] Start: 01-26-2021 LACTIC ACID/LACTATE Pro vider [facility] Start: 01-26-2021 PROTHROMBIN TIME/PT Pro vider [facility] Start: 01-26-2021 KETONES/ACETONE/BHB Pro vider [facility] Start: 01-26-2021 Ecg routine ecg w/le ast 12 lds w/i&r Provider [facility] Start: 01-26-2021 CBC + DIFF Provider [facility] Start: 01-26-2021 Comprehensive metabo lic 2000 panel - Serum or Plasma Provider [facility] Start: 01-26-2021 MANUAL DIFF Provider [facility] Start: 01-26-2021 TYPE + SCREEN Provider [facility] Start: 01-26-2021 CK CREATINE KINASE Prov ider [facility] Start: 01-26-2021 Creatine kinase.MB [Mass/volume] in Serum or Plasma Provider [facility] Start: 01-26-2021 TROPONIN T Provider C [facility] Start: 01-26-2021 FECAL OCCULT BLOOD TEST Provider [facility] Start: 06-08-2020 PROTHROMBIN TIME/PT Phi yokasta Lepe Work Phone: Start: 06-07-2020 [object Object] Provide r [facility] Start: 06-07-2020 CBC + DIFF Kamron pendletonrick Lepe Work Phone: Start: 06-07-2020 Comprehensive metabo lic 1999 panel Kamron Guerrero Sherley Work Phone: Start: 06-07-2020 HbA1c (Bld) [Mass fraction] Kamron Lepe Work Phone: Start: 06-07-2020 LIPID PANEL BASIC Jorge Lepe Work Phone: Start: 06-07-2020 PSA/PROSTSPECAG DIAG Ph bernadine Lepe Work Phone: Start: 06-07-2020 TSH BLD Kamron Lepe Work Phone: Ankle region structu re (body structure) DR CINDY FALCON MD Comment on above: Left, plate and scre ws Appendectomy DR CINDY FALCON MD Dialysis catheter (p hysical object) DR CINDY FALCON MD Plan of Treatment Date Care Activity Detail Author Start: 01-29-2028 Lipid 1996 panel - Serum or Plasma Lipid Screening [facility] Start: 01-29-2028 LIPID SCREEN LIPID SCREEN [facility] Start: 08-01-2026 LIPID SCREEN LIPID SCREEN [facility] Start: 2026 Diabetes Screening Diabetes Screenin g [facility] Start: 04-24-2026 DIABETES SCREEN DIABETES SCREEN [facility] Start: 11-14-2025 DIABETES SCREEN DIABETES SCREEN [facility] Start: 11-13-2025 DIABETES SCREEN DIABETES SCREEN [facility] Start: 10-08-2025 End: 10-08-2025 Patient encounter procedure 10/08/2025 7:40 AM EST Office Visit [facility] [address] [place] [address] [place] [address] Ramila Tuttle APRN.[facility] [address] [facility] [address] [place] [address] 1 year f/u AFIB per AC [facility] Comment on above: 1 year f/u AFIB per AC Start: 10-05-2025 BP Controlled (<130/80) BP Controlle d (<130/80) [facility] Start: 07-29-2025 Complete blood count Hemoglobin/Zan tocrit [facility] Start: 07-29-2025 Creatinine measurement Serum Creatin ine [facility] Start: 07-29-2025 Hepatitis B surface antibody level LDL Cholesterol [facility] Start: 05-01-2025 DIABETES SCREEN DIABETES SCREEN [facility] Start: 04-27-2025 BP Controlled (<130/80) BP Controlle d (<130/80) [facility] Start: 04-20-2025 BP Controlled (<130/80) BP Controlle d (<130/80) [facility] Start: 04-06-2025 BP Controlled (<130/80) BP Controlle d (<130/80) [facility] Start: 03-23-2025 BP Controlled (<130/80) BP Controlle d (<130/80) [facility] Start: 03-11-2025 Creatinine measurement Serum Creatin ine [facility] Start: 03-06-2025 Complete blood count Hemoglobin/Zan tocrit [facility] Start: 01-26-2025 Hemoglobin A1c measurement HbA1C [facility] Start: 01-09-2025 Patient discharge [facility] Start: 12-19-2024 Complete blood count Hemoglobin/Zan tocrit [facility] Start: 12-19-2024 Creatinine measurement Serum Creatin ine [facility] Start: 11-10-2024 Creatinine measurement Serum Creatin ine [facility] Start: 11-09-2024 Complete blood count Hemoglobin/Zan tocrit [facility] Start: 11-05-2024 Complete blood count Hemoglobin/Zan tocrit [facility] Start: 11-05-2024 Creatinine measurement Serum Creatin ine [facility] Start: 10-25-2024 DIABETES SCREEN DIABETES SCREEN [facility] Start: 10-05-2024 End: 10-05-2024 Patient encounter procedure [facility] Comment on above: 6 month f/u for HF/A -Fib w/ Dr Beltran Start: 09-13-2024 Advance Directive Discussion Advance Directive Discussion [facility] Start: 07-06-2024 Hemoglobin/Hematocrit Hemoglobin/Hem atocrit [facility] Start: 07-06-2024 Serum Creatinine Serum Creatinine [facility] Start: 05-20-2024 Colorectal Cancer Screening Colorectal Cancer Screening [facility] Start: 05-20-2024 Fecal Occult Blood Fecal Occult Bloo d [facility] Start: 05-20-2024 Screening for malign ant neoplasm of colon [facility] Start: 05-14-2024 Covid-19 Vaccine ( season) Covid-19 Vaccine () [facility] Start: 05-14-2024 Influenza vaccination C [facility] Start: 05-03-2024 End: 05-03-2024 Patient encounter procedure 05/03/2024 10:15 [place] [address] Ngozi Vigil MD [address] [place] [address] [facility] Comment on above: [facility] Start: 04-27-2024 End: 04-27-2024 Patient encounter procedure 04/27/2024 9:30 AM EDT Office Visit [address] [address] Gilmer Olivia DPM [address] [place] [address] [facility] Comment on above: [facility] Start: 04-20-2024 End: 04-20-2024 Patient encounter procedure 04/20/2024 9:15 AM EDT Office Visit [address] [address] Gilmer Olivia DPM [address] [address] [facility] Comment on above: [facility] Start: 04-13-2024 End: 04-13-2024 Patient encounter procedure 04/13/2024 8:45 AM EDT Office Visit [address] [address] Gilmer Olivia DPM [address] [address] RLE [facility] Comment on above: [facility] Start: 04-06-2024 End: 04-06-2024 Patient encounter procedure 04/06/2024 9:15 AM EDT Office Visit [facility] [address] [place] [address] Gilmer Olivia DPM [address] [address] BLE WOUNDS [facility] [place] Comment on above: BLE WOUNDS Start: 03-31-2024 End: 03-31-2024 Patient encounter procedure 03/31/2024 9:40 AM EDT Office Visit [facility] [address] [place] [id number] Federico Park APRN.DRONE PILOT [address] [place], [place] [id number] Needs evaluated to be put back on Eliquis/ possible Watchman? (H.N.F) [facility] Comment on above: Needs evaluated to b e put back on Eliquis/ possible Watchman? (H.N.F) Start: 03-30-2024 End: 03-30-2024 Patient encounter procedure 03/30/2024 8:45 AM EDT Office Visit [facility] [address] [place] [address] Gilmer Olivia DPM [address] [address] BLE [facility] Comment on above: BLE Start: 03-23-2024 End: 03-23-2024 Patient encounter procedure 03/23/2024 9:15 AM EDT Office Visit [facility] [place] [address] [place] [address] Gilmer Olivia DPM [address] [address] BLE [facility] Comment on above: BLE Start: 03-06-2024 End: 03-06-2024 Patient encounter procedure 03/06/2024 2:30 PM EDT Office Visit [facility] [address] [place] [address] Yoli Echavarria DPM [address] [address] BLE [facility] Comment on above: BLE Start: 02-28-2024 End: 02-28-2024 Patient encounter procedure 02/28/2024 2:00 PM EDT Office Visit [address] [address] Yoli Echavarria DPM [address] [address] RLE [facility] Comment on above: RLE Start: 01-31-2024 End: 01-31-2024 Patient encounter procedure 01/31/2024 2:00 PM EDT Office Visit [address] [address] Yoli Echavarria DPM [address] [address] BLE [facility] Comment on above: BLE Start: 01-29-2024 Hepatitis B surface antibody level LDL Cholesterol [facility] Start: 01-10-2024 End: 01-10-2024 Patient encounter procedure 01/10/2024 2:30 PM EDT Office Visit [address] [address] Yoli Echavarria DPM [address] [id number] BLE [facility] Comment on above: BLE Start: 10-25-2023 Hemoglobin A1c measurement HbA1C [facility] Start: 09-13-2023 Advance Directive Discussion Advance Directive Discussion [facility] Start: 09-13-2023 Behavioral Health Screening Behavioral Health Screening [facility] Start: 09-13-2023 Depression Assessment Depression Ass essment [facility] Start: 07-27-2023 End: 10-26-2023 Basic metabolic 2000 panel - Serum or Plasma BASIC METABOLIC PNL Lab Routine Stage 4 chronic kidney disease (HCC) Expected: 07/27/2023, Expires: 10/26/2023 [facility] Work Phone: Comment on above: Expected: 07/27/2023 , Expires: 10/26/2023 Start: 07-27-2023 End: 10-26-2023 CBC panel - Blood by Automated count CBC Lab Routine Stage 4 chronic kidney disease (HCC) Expected: 07/27/2023, Expires: 10/26/2023 [facility] Work Phone: Comment on above: Expected: 07/27/2023 , Expires: 10/26/2023 Start: 05-14-2023 Covid-19 Vaccine () Covid-19 Vaccine () [facility] Start: 05-14-2023 Influenza vaccination C [facility] Start: 09-13-2022 ADVANCE DIRECTIVE DISCUSSION ADVANCE DIRECTIVE DISCUSSION [facility] Start: 09-13-2022 DEPRESSION ASSESSMENT DEPRESSION ASS ESSMENT [facility] Start: 05-14-2022 Influenza vaccination C [facility] Start: 04-10-2022 COLORECTAL CANCER SCREENING COLORECTAL CANCER SCREENING [facility] Start: 04-10-2022 FECAL OCCULT BLOOD FECAL OCCULT BLOO D [facility] Start: 09-13-2021 ADVANCE DIRECTIVE DISCUSSION ADVANCE DIRECTIVE DISCUSSION [facility] Start: 09-13-2021 DEPRESSION ASSESSMENT DEPRESSION ASS ESSMENT [facility] Start: 08-22-2021 COVID-19 VACCINE (3 - Booster for Pfizer series) COVID-19 VACCINE (3 - Booster for Pfizer series) [facility] Start: 08-22-2021 COVID-19 VACCINE (3 - Pfizer series) COVID-19 VACCINE (3 - Pfizer series) [facility] Start: 05-14-2021 Influenza vaccination INFLUENZA (#1) [facility] Start: 2017 Pneumococcal Vaccine : 65+ (1 - PCV) Pneumococcal Vaccine: 65+ (1 - PCV) [facility] Start: 2017 PNEUMOCOCCAL: 65+ (1 - PCV) PNEUMOCOCCAL: 65+ (1 - PCV) [facility] Start: 2017 PNEUMOVAX AGE 65 AND OVER WITH 5YR LOOKBACK (#1) PNEUMOVAX AGE 65 AND OVER WITH 5YR LOOKBACK (#1) [facility] Start: 2012 RSV Vaccine (1 - 1-d ose 60+ series) RSV Vaccine (1 - 1-dose 60+ series) [facility] Start: 2012 RSV Vaccine (1 - Ris k 60-74 years 1-dose series) RSV Vaccine (1 - Risk 60-74 years 1-dose series) [facility] Start: 2002 SHINGRIX VACCINE (1 of 2) SHINGRIX VACCINE (1 of 2) [facility] Start: 1997 COLOGUARD (FIT-DNA) COLOGUARD (FIT-D NA) [facility] Start: 1997 Colonoscopy COLONOSCOPY [facility] Start: [address] [facility] Start: 1997 Screening for malign ant neoplasm of colon [facility] Start: 1997 SIGMOIDOSCOPY SIGMOIDOSCOPY [facility] Start: 1972 Hepatitis B Vaccine (1 of 3 - Risk Dialysis 4-dose series) Hepatitis B Vaccine (1 of 3 - Risk Dialysis 4-dose series) [facility] Start: 1971 Pneumococcal Vaccine : 50+ (1 of 2 - PCV) Pneumococcal Vaccine: 50+ (1 of 2 - PCV) [facility] Start: 1971 Urine microalbumin profile [facility] Start: 1970 Annual PCP Team B Operator jamar Disease Visit Annual PCP Team Chronic Disease Visit [facility] Start: 1970 Anxiety Screening Anxiety Screening [facility] Start: 1970 BP Controlled (<130/80) BP Controlle d (<130/80) [facility] Start: 1970 Depression Screening Depression Scre ening [facility] Start: 09-13-1970 HEPATITIS C SCREENING HEPATITIS C SC HORACE [facility] Start: 1964 Adult depression screening assessment DEPRESSION SCREENING [facility] Start: 1962 Diabetic foot examination Diabetic Foot Exam [facility] Start: 1962 Glaucoma screening Dilated Retinal E xam [facility] Start: 1958 Pneumococcal Vaccine : 65+ (1 of 2 - PCV) Pneumococcal Vaccine: 65+ (1 of 2 - PCV) [facility] Start: 1957 COVID-19 VACCINE (1) COVID-19 VACCIN E (1) [facility] Start: 1952 COVID-19 VACCINE (#1) COVID-19 VACCI NE (#1) [facility] Start: 1950 ABDOMINAL AORTIC ANEURYSM SCREENING ABDOMINAL AORTIC ANEURYSM SCREENING [facility] Start: 1950 Abdominal aortic aneurysm screening Abdominal Aortic Aneurysm Screening [facility] ECG COMPLETE ECG COMPLETE ECG Routine SOB (shortness of breath) 11/25/2022 10:28 AM EDT [facility] Work Phone: ECG COMPLETE ECG COMPLETE ECG Routine Paroxysmal atrial fibrillation (HCC) 05/28/2023 8:50 AM EDT [facility] Work Phone: End: 07-27-2024 ECG COMPLETE ECG COMPLETE ECG Routine Stage 4 chronic kidney disease (HCC) 1 Occurrences starting 07/27/2023 until 07/27/2024 [facility] Work Phone: Comment on above: 1 Occurrences starti ng 07/27/2023 until 07/27/2024 ECG COMPLETE ECG COMPLETE ECG Routine Paroxysmal atrial fibrillation (HCC) 11/05/2023 9:50 AM EST [facility] Work Phone: ECG COMPLETE ECG COMPLETE ECG Routine Chronic heart failure with preserved ejection fraction (HFpEF) (HCC) 03/31/2024 10:01 AM EDT [facility] Work Phone: ECG COMPLETE ECG COMPLETE ECG Routine Longstanding persistent atrial fibrillation (HCC) Chronic heart failure with preserved ejection fraction (HFpEF) (HCC) 10/05/2024 10:43 AM EST [facility] Work Phone: Patient referral [facility] [place] Work Phone: End: 08-25-2024 Radiologic exam chest 2 views XR CHEST 2V FRONTAL/LAT Radiology Routine Stage 4 chronic kidney disease (HCC) 1 Occurrences starting 07/27/2023 until 08/25/2024 [facility] Work Phone: Comment on above: 1 Occurrences starti ng 07/27/2023 until 08/25/2024 End: 07-27-2024 US ARM VEIN MAP UNL VAS LAB US ARM VEIN MAP UNL VAS LAB Vascular Lab Routine Stage 4 chronic kidney disease (HCC) 1 Occurrences starting 07/27/2023 until 07/27/2024 [facility] Work Phone: Comment on above: 1 Occurrences starti ng 07/27/2023 until 07/27/2024 US AV fistula [facility] Immunizations Immunization Date Immunization Notes Care Provider Fa [facility] 06-27-2021 SARS-CoV-2 mRNA (tozinameran) vaccine ROZ SCHEATZLE DO [facility] [employer] (V3[facility]) Comment on above: Result Comment: 2022: [id number] 06-06-2021 SARS-CoV-2 mRNA (tozinameran) vaccine ROZ SCHEATZLE DO [facility] [employer] (V3D) Comment on above: Result Comment: 2022: [id number] Payers Date Payer Category Payer Self-pay 2023 Medicare [id number] 2020 Unknown PRIMETIME PRIMET [place] HMO POS [id number] 2020-Present [phone] [address] [place] [address] O [id number] [id number] 2020 Unknown [id number]. 1.13.159.2.7.3.6 [id number] 2020 Medicare [id number] 1950 Unknown [id number] 2.16.840.1.875802.3.579.2.62 1950 Unknown [id number] 2.16.840.1.600168.3.579.2.627 1950 Unknown [id number] 2.16.840.1.719257.3.579.2.62 1950 Unknown [id number] 2.16.840.1.270286.3.579.2.651 Unknown [id number] Unknown [id number] 2.16.840.1.168156.3.579.2.283 Unknown [id number] 2.16.840.1.158443.3.579.2.283 Unknown [id number] 2.16.840.1.265532.3.579.2.283 Unknown [id number] 2.16.840.1.094253.3.579.2.283 Unknown [id number] 2.16.840.1.849754.3.579.2.283 Unknown [id number] 2.16.840.1.674492.3.579.2.283 Unknown [id number] 2.16.840.1.943108.3.579.2.283 Unknown [id number] 2.16.840.1.989410.3.579.2.283 Unknown [id number] 2.16.840.1.595333.3.579.2.283 Unknown [id number] 2.16.840.1.065245.3.579.2.283 Unknown [id number] 2.16.840.1.637042.3.579.2.283 Unknown [id number] 2.16.840.1.698446.3.579.2.283 Unknown [id number] 2.16.840.1.621269.3.579.2.283 Unknown [id number] 2.16.840.1.569196.3.579.2.283 Unknown [id number] 2.16.840.1.919616.3.579.2.283 Unknown [id number] 2.16.840.1.451700.3.579.2.462 Unknown [id number] 2.16.840.1.808291.3.579.2.462 Unknown [id number] 2.16.840.1.230623.3.579.2.462 Unknown [id number] 2.16.840.1.081701.3.579.2.462 Unknown [id number] 2.16.840.1.102911.3.579.2.462 Unknown [id number] 2.16.840.1.646569.3.579.2.462 Unknown [id number] 2.840.1.760288.3.579.2.462 Unknown [id number] 2.16.840.1.537900.3.579.2.462 Unknown [id number] 2.16.840.1.101358.3.579.2.462 Unknown [id number] 2.16.840.1.118000.3.579.2.462 Unknown [id number] 2.16.840.1.510342.3.579.2.462 Unknown [id number] 2.16840.1.280414.3.579.2.462 Unknown [id number] 2.16840.1.843016.3.579.2.462 Social History Date Type Detail Facility Tobacco smoking stat us [facility] [place] Unknown if ever smoked [facility] Start: 1950 Sex Assigned At Not on file [facility] Start: 02-18-2021 End: 01-05-2025 Tobacco smoking status NHIS Ex-smoker [facility] Start: 02-18-2021 End: 10-05-2024 Tobacco use and exposure Smokeless tobacco non-user [facility] Start: 02-18-2021 End: 10-05-2024 Alcohol intake Ex-drinker (finding) [facility] Start: 09-13-1965 End: 09-13-1995 History of tobacco use Current smoker [facility] Start: 09-13-1965 End: 09-13-1995 History of tobacco use Cigarette Smoker [facility] Start: 11-25-2022 End: 05-28-2023 Cigarettes smoked current (pack per day) - Reported 1 [facility] Start: 11-25-2022 End: 05-28-2023 Tobacco use panel [facility] National Score (1-10 0), lower number is lower risk 52 [facility] Start: 07-27-2023 Alcohol intake Current drinke r of alcohol (finding) [facility] Start: 08-25-2023 End: 11-24-2023 Tobacco smoking status Never smoked tobacco (finding) [facility] Start: 1950 Sex Assigned At Male A [facility] Has the [facility], or [employer] threatened to shut off services in your home in past 12Mo No [facility] (I/We) worried luis (my/our) food would run out before (I/we) got money to buy more. Never true [facility] Start: 08-25-2023 Sex Male (finding) [facility] Medical Equipment Procedure Code Equipment Code Equipment Origin al Text Equipment Identifier Dates Creation, AV fistula, using vein transposition technique ([id number]) Synthetic vascular graft [id number] FDA Start: 01-09-2025 Creation, AV fistula, using vein transposition technique Ligation clip, metallic ()[id number] FDA Start: 01-09-2025 Creation, AV fistula, using vein transposition technique Ligation clip, metallic ()[id number] FDA Start: 01-09-2025 Creation, AV fistula SUTURE,LIGA CLIP MED [id number] FDA Start: 09-12-2024 Creation, AV fistula SUTURE,LIGA CLIP MED [id number] FDA Start: 09-12-2024 Creation, AV fistula SUTURE,LIGA CLIP SM [id number] FDA Start: 09-12-2024 Creation, AV fistula SUTURE,LIGA CLIP SM [id number] FDA Start: 09-12-2024 Creation, AV fistula SUTURE,LIGA CLIP MED [id number] FDA Start: 09-12-2024 Creation, AV fistula SUTURE,LIGA CLIP MED [id number] FDA Start: 09-12-2024 Creation, AV fistula SUTURE,LIGA CLIP SM LT-100 FDA Start: 09-12-2024 Creation, AV fistula SUTURE,LIGA CLIP SM LT-100 FDA Start: 09-12-2024 Coil Concerto 4m m [place] Nylon 8cm Embolization Detachable Accepts .0165in - [id number] Start: 10-29-2023 Coil Concerto 4m m [place] Nylon 8cm Embolization Detachable Accepts .0165in - [id number] Start: 10-29-2023 Coil Concerto 5m m [place] Nylon 15cm Embolization Detachable Accepts .021in - [id number] Start: 10-29-2023 Coil Concerto 5m m [place] Nylon 15cm Embolization Detachable Accepts .021in - [id number] Start: 10-29-2023 Coil Concerto 6m m [place] Nylon 20cm Embolization Detachable Accepts .021in - [id number] Start: 10-29-2023 Coil Concerto 5m m [place] Nylon 20cm Embolization Detachable Accepts .021in - [id number] Start: 10-29-2023 Goals Date Patient Goal Desired Activity /State Personal health goal Functional Status Date Assessment Result Facility 11-02-2024 Functional Status Awake [facility] 11-02-2024 Functional Status [facility] 11-02-2024 Functional Status [facility] 04-13-2024 Functional Status Minimum assistance [facility] 04-13-2024 Functional Status Maintained [facility] 04-13-2024 Functional Status [facility] 09-04-2023 Functional Status Non-Slip footw ear, Room check performed [facility] 09-03-2023 Functional Status [facility] 09-03-2023 Functional Status [facility] 09-03-2023 Functional Status None [facility] 09-03-2023 Functional Status [facility] 09-03-2023 Functional Status [facility] 09-03-2023 Functional Status [facility] 09-02-2023 Functional Status Evening Snack Percent 1 00 [facility] [place] 09-02-2023 Functional Status [facility] 09-02-2023 Functional Status [facility] 09-02-2023 Functional Status [facility] 09-01-2023 Functional Status [facility] 09-01-2023 Functional Status [facility] 09-01-2023 Functional Status [facility] 09-01-2023 Functional Status Lunch Percent 100 [facility] [place] 09-01-2023 Functional Status [facility] 09-01-2023 Functional Status [facility] 08-31-2023 Functional Status [facility] 08-30-2023 Functional Status [facility] 08-30-2023 Functional Status [facility] 08-30-2023 Functional Status [facility] 08-29-2023 Functional Status Standard Toilet Transfe r [facility] Status [facility] 08-27-2023 Functional Status Independent [facility] 08-27-2023 Functional Status Community mobi lity, Driving, 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, Health and wellness, Home management, Housework, Laundry, Meal preparation, Work [facility] 08-27-2023 Functional Status [facility] 08-26-2023 Functional Status Sensory Deficits None A [facility] [place] 08-25-2023 Functional Status [facility] Mental Status Date Assessment Result Facility 01-09-2025 Cognitive function Level Of Cons ciousness Awake;Alert [facility] Work Phone: 01-09-2025 Cognitive function Voice/Name [facility] Work Phone: 11-02-2024 Mental Status [facility] 11-02-2024 [facility] 04-13-2024 Mental Status Oriented x [facility] 04-13-2024 [facility] Status [facility] 09-04-2023 Mental Status Orientation Oriented x 4 [facility] 09-03-2023 Mental Status [facility] 09-03-2023 Mental Status [facility] 09-02-2023 Mental Status Orientation Asse ssment Oriented x 4 [facility] 09-02-2023 Mental Status [facility] 09-01-2023 Mental Status [facility] Clinical Notes 10-25-2022 to 01-09-2025 Note Date & Type Note Facility 01-09-2025 Note [facility] Medical Records Department [address] [place] [address] History Physical Exam 01/09/25 0943 MR#: [id number] Acct: [id number] Name: ROZ BAKER Rep #: [id number] : 1950 74 From: Hugo Alvarado MD PCP: Dr. Kamron Lepe MD Status:[facility] Location: [place] [address] HPI - General HPI Narrative ROZ BAKER, is a 74 M who presents with a prior left stage I basilic fistula that has matured well. He is here now for stage II. He has significantly limited shoulder mobility so cadaver graft will be used to extend working length and tunnel more lateral on arm. [facility] Medical History Walker as ambulation aid Fractured pelvis Wears glasses Alcohol use Ambulates with cane Gout Arthritis Low iron Easy bruising Back pain Dietary restriction Former smoker Shortness of breath on exertion Insulin dependent diabetes mellitus History of pain when walking History of edema History of echocardiogram Cardiology follow-up encounter History of atrial fibrillation History of GI bleed History of renal dialysis History of hemodialysis CHF (congestive heart failure) Peptic ulcer Hypertension Diabetes ESRD (end stage renal disease) Home Medications ???Medication ???Instructions ???Recorded ???Last Taken ???Type furosemide 20 mg tablet (Lasix) 20 mg PO DAILY 08/21/24 12/12/24 H istory vitamin B complex and vitamin C 1 cap PO QHS 08/21/24 09/11/24 His tory no.20-folic acid 1 mg capsule (Renal Caps) allopurinol 100 mg tablet 100 mg PO DAILY 08/29/24 12/12/24 History apixaban 5 mg tablet (Eliquis) 5 mg PO BID 08/29/24 01/07/25 04:3 0 History famotidine 20 mg tablet 20 mg PO QHS 09/12/24 12/12/24 His tory hydralazine 50 mg tablet 75 mg PO TID 09/12/24 12/12/24 His tory pantoprazole 40 mg tablet,delayed 40 mg PO DAILY 09/12/24 12/12/24 History release (Protonix) isosorbide mononitrate 60 mg 60 mg PO DAILY 11/20/24 12/12/24 H istory tablet,extended release 24 hr metoprolol succinate 25 mg 25 mg PO QHS 11/20/24 12/11/24 His tory tablet,extended release 24 hr sevelamer carbonate 800 mg tablet 800 mg PO TID 11/20/24 12/11/24 H istory docusate sodium 100 mg capsule 100 mg PO BID 01/05/25 Unknown His tory (Colace) insulin lispro 100 unit/mL 1 unit subcut BID SLIDING SCALE Unknown History subcutaneous pen (Humalog KwikPen (U-100) Insulin) oxycodone-acetaminophen 5 mg-325 1 tab PO Q6H PRN pain 01/05/25 Unk nown History mg tablet (Percocet) Allergy/AdvReac Type Severity Reaction Status Date / Time codeine Allergy Severe Vomiting Verified 01/09/25 07:45 Surgical History Hx of colonoscopy History of esophagogastroduodenoscopy (EGD) Hx of cholecystectomy History of ankle surgery Social History Smoking Status: Former smoker Tobacco: How many years used: 30 how long ago did patient quit smokin yrs ROS Constitutional Constitutional: Denies chills, fever(s), frequent falls, lethargy or weakness Eyes Eyes: Denies blind spots, change in vision or loss of vision ENT HEENT: Denies bleeding gums, hoarseness or sore throat Cardiovascular Cardiovascular: Denies abdominal pain, bluish discoloration of hand/feet, chest pain with activity, claudication, cold extremities, cyanosis, dyspnea on exertion, erythema on extremities, irregular heart rhythm, leg edema, leg ulcers, numbness in extremities or weakness in extremities Respiratory/Chest Respiratory/Chest: Denies cough, excessive phlegm production, shortness of breath at rest, shortness of breath with exertion or wheezing Gastrointestinal Gastrointestinal: Denies anorexia, change in stool character, constipation, diarrhea, melena or rectal bleeding Genitourinary Genitourinary: Denies dysuria or hematuria Musculoskeletal Musculoskeletal: Denies abnormal gait Integumentary Integumentary: Reports other Details: ; Denies erythema, non-healing lesions or wounds Neurologic Neurologic: Denies abnormal speech, focal weakness, headache(s), loss of vision, numbness, paresthesias or sensory deficit Hematologic/Lymphatic Hematologic/Lymphatic: Denies easy bleeding, easy bruising or lymphadenopathy Vital Signs Vital Signs Vital Signs: 01/09/25 07:46 01/09/25 07:46 01/09/25 08:30 Temperature 97.6 F L 97.6 F L Temperature Source Temporal Pulse Rate 65 65 Respiratory Rate 16 16 Respiratory Pattern Normal Blood Pressure 134/63 H 134/63 H Blood Pressure Mean 86 Blood Pressure Source Monitor Blood Pressure Position Sitting Blood Pressure Location Right Arm Pulse Ox 98 98 Oxygen Delivery Method Room Air Tonie (more content not included)... [facility] 12-27-2024 Note HNO ID: [id number] Author: CARLOS MCKEON LPN Service: Nursing Author Type: LICENSED NURSE Type: Nursing Progress Note Filed: 12/27/2024 17:27 Note Text: NURSE TO NURSE REPORT GIVEN TO THE NURSE AT [facility]. [facility] 12-27-2024 Note [facility] 12-27-2024 Note [facility] 12-26-2024 Note [facility] 12-26-2024 Note [facility] 12-26-2024 Note [facility] 11-16-2024 Evaluation note Diagnosis Onset Date Resolution ESRD (end stage renal disease) on dialysis chronic November 16, 2024 12:52pm ESRD (end stage renal disease) on dialysis chronic January 09, 2025 7:05am AV fistula acute January 23, 2025 1:49pm ESRD (end stage renal disease) on dialysis chronic January 23, 2 025 1:49pm [facility] Work Phone: 1(707) 601-804802-20-2025 Evaluation + Plan noteExtracted from: Title:IR pre procedure H&P Author:MARISOL DUTTA PA-C Date:11/02/24 Interventional Radiology Focused Preprocedure History/Physical Reason for Visit poor functioning perm cath, CAESAR History of Presenting Illness/Planned IR Procedure poor functioning perm cath, CAESAR Last dose of Eliquis was 11/01/2024 Allergies (1) ActiveSeverityReaction codeineUnknown Home Medications (17) Active acetaminophen 650 mg = 2 tab(s), PRN, Oral, q6hr allopurinol 100 mg oral tablet 100 mg = 1 tab(s), Oral, qDayPC ammonium lactate topical , Topical, BID calcitriol 0.25 mcg oral capsule 0.25 mcg = 1 cap(s), Oral, Daily Colace 100 mg oral capsule 100 mg = 1 cap(s), PRN, Oral, BID cyclobenzaprine 5 mg oral tablet 5 mg = 1 tab(s), Oral, TID diclofenac 1% topical gel 1 keenan, PRN, Topical, BID Eliquis 5 mg oral tablet 5 mg = 1 tab(s), Oral, BID famotidine 40 mg oral tablet 40 mg = 1 tab(s), Oral, BID ferrous sulfate 325 mg (65 mg elemental iron) oral delayed release tablet 325 mg = 1 tab(s), Oral, qDay furosemide 20 mg oral tablet 20 mg = 1 tab(s), Oral, qDay hydrALAZINE 50 mg oral tablet 50 mg = 1 tab(s), Oral, TID isosorbide mononitrate 30 mg oral tablet, extended release 30 mg = 1 tab(s), Oral, qDayAC metoprolol tartrate 25 mg oral tablet 25 mg = 1 tab(s), Oral, qDay Milk of Magnesia 30 mL, PRN, Oral, Daily pantoprazole 40 mg oral enteric coated tablet 80 mg = 2 tab(s), Oral, qDay Potassium Chloride (Pkb-Wziz-Wqg M20) 20 mEq oral tablet, extended release 20 mEq = 1 tab(s), Oral, qDay Problem List/Past Medical History (HFpEF) heart failure with preserved ejection fraction CAESAR (acute kidney injury) Acute kidney injury superimposed on chronic kidney disease Anemia Anemia in chronic kidney disease (CKD) Atrial fibrillation BMI 39.0-39.9,adult CHF, acute on chronic CRF (chronic renal failure) Cellulitis DU (duodenal ulcer) Debility HTN (hypertension) Hyperlipidemia Morbid obesity Septic joint of left knee joint Type 1 diabetes Surgical History Appendectomy Dialysis catheter Ankle Family History No family history recorded. Social History Alcohol Details: Use: Past. Home/Environment Details: Living situation: Home with assistance. Domestic Concerns: None. Lives In: Apartment, Single level home. Current Home Treatments Wound care. Substance Abuse Details: Type: Marijuana. Tobacco Details: Nicotine Use: Never (less than 100 in lifetime), Former smoker, quit more than 30 days ago. Physical Exam Vitals: Fqabnzzpggb40 (06:52) Systolic Blood Fzrviuju523 (06:52) Diastolic Blood Dgyilqua53 (06:52) Pulse72 (06:52) NpI175 (06:52) Respiratory RateNo result General: Alert, cooperative. _ The remainder of the physical exam is noncontributory. Labs Anticoagulation Labs No qualifying data available. No qualifying data available. Assessment/Treatment Plan Image guided permanent Hemodialysis catheter exchange Post Procedure Discharge Plan Patient to be discharged home. _ [facility] 02-20-2025 Hospital Discharge instructions Patient Education 11/02/2024 09:01:58 1-[facility] Discharge Instructions Template (06/2018) ([facility]) [facility] SAME DAY SURGERY DISCHARGE INSTRUCTIONS PLEASE FOLLOW THE INSTRUCTIONS BELOW MARKED WITH AN X: _x__ Regular Diet: Start with clear liquids, then soup and crackers and gradually add other foods. ___ Drink extra fluids. ___ Special Diet Instructions: ___ ACTIVITY: ___ Avoid stress to suture line. Since you have had an anesthetic, it would be advisable not to drive, drink alcohol, or make major decisions over the next 24 hours. You may require more rest tonight and tomorrow. _x__ May resume regular activity as tolerated. ___ Restrict activity as follows: ___ ___ Walk Only ___ ___ Do not go up and down stairs. ___ Do not ride in car until ___ ___ Do not drive car. ___ Do not have sexual intercourse. ___ No heavy lifting, pushing or straining. ___ Other: ___ BATHING/SHOWERING: ___ Sponge bathe until office visit. ___ Sitting in tub of warm water may relieve discomfort. ___ May tub bathe ___ May shower ___ On day after surgery sit in tub of warm water to soak off dressing. DRESSING: ___ Keep operative area dry and clean for ___ ___ Check the operative area for signs of bleeding. Apply pressure to the bleeding site if necessary and call your physician. ___ Change dressing as necessary using sterile dressing material or bandaid. ___ Reinforce dressing as necessary. ___ Change and care for wound as follows: ___ ___ Wear bra for ___ days following breast surgery for comfort. ___ Change drip pad as needed. ___ Wear scrotal support for comfort. WATCH FOR SIGNS OF INFECTION: (Usually appears 36-48 hours after surgery) Increased temperature (101 degrees Fahrenheit or higher) Redness or swelling Increased pain Foul odor or drainage. If you have any questions, please call your doctor at the number listed on your follow up instructions. Follow all instructions given to you by your physician. Please complete and return the survey you will be receiving in the mail to help us better serve our patients. Form: 1522 ([id number]) R: 12/2011/02/2024 09:01:45 Radiology- Tunneled Catheter Insertion 06/23/2024(CUSTOM) [facility] Tunneled Catheter Insertion Discharge Instructions Interventional Radiology [facility] [address] [place] [address] A tunnel catheter is a special kind of intravenous line that can be used for dialysis or other treatment. The catheter is tunneled under your skin and goes into a large blood vessel that leads to your heart. DIET: Resume your regular diet as tolerated. ACTIVITY: No swimming, showering, or hot tubs while the tunnel catheter is in place. Keep your dressing dry. You may take a tub bath, but do not get your dressings wet. If your dressing gets wet call your healthcare provider. Avoid any heavy lifting or strenuous activity while the catheter is in place. Make sure not to pull on the catheter. Care should be taken to secure the catheter to prevent it from getting caught or pulled. Special instructions: MEDICATION: Please resume on . DRESSING AND CARE: A dry, secure, clean and intact dressing is essential to prevent catheter migration and infection. Do not change your dressing. Your healthcare provider will change the dressing. The dressing on your chest will stay as long as you have the catheter in place. Special instructions: WHEN TO SEEK MEDICAL CARE: You develop any signs of infection around the insertion site (redness, swelling, increased pain, bleeding, or unusual drainage). You develop unexplained fever or chills. If tube comes out or becomes dislodged IF YOU EXPERIENCE ANY OF THESE ISSUES DURING THE FIRST 24 HOURS, PLEASE FOLLOW THE INSTRUCTION BELOW: 8:00 am-5:00 pm call [phone] After 24 hours, contact the physician who ordered this procedure for you. Follow Up Care 10/30/2024 13:28:31 With:CINDY FALCON MD Address: [address] [place] [address] and [facility] [place] [address]- [phone] When: Unknown [facility] 02-20-2025 Note* CARMEN Tripathi: SIGN, AUTHOR, PERFORM Event Display: IR Procedure Record Authored Date: [id number] IR Procedure Record Summary Primary Physician: NORA DUTTA PA-C Finalized Date/Time: 11/02/24 08:34:37 Pt. Name: BAKERROZ./Sex: 1950 Male Med Rec #: [id number] Physician: Financial #: [id number] Pt. Type: S Room/Bed: [facility] [facility] [place] Admit/Disch: 11/02/24 05:45:20 - Institution: Allergies identified in patient's electronic medical record at time of printing on 11/02/24 Entry 1 Substance codeine Reaction Type Allergy Last Modified By: Snehal Larsen LPN 11/24/23 17:41:16 Case Attendance- IR Entry 1 Entry 2 Entry 3 Case Attendee NORA DUTTA PA-C Paper SorterCARMEN Mathur Role Performed Primary Surgeon Scrub Technologist Procedure Nurse Details Time In 11/02/24 08:08:00 11/02/24 07:59:00 11/02/24 07:59:00 Time Out 11/02/24 08:40:00 11/02/24 08:40:00 11/02/24 08:40:00 Procedure/Preference IR Tunneled HD Exchange IR Tunneled HD Exchange IR Tunneled HD Exchange Card (SN) (SN) (SN) Last Modified By: CARMEN Tripathi RN Corey Snider, RN Corey 11/02/24 08:30:02 11/02/24 08:30:02 11/02/24 08:30:02 Radiology Procedures- IR Entry 1 Procedure/Preference IR Tunneled HD Exchange Actual Procedure IR Perm Cath Exchange Card (SN) Primary Procedure Yes Primary Surgeon NORA DUTTA PA-C Anesthesia/Sedation Local Type Additional Procedure Times Start 11/02/24 08:08:00 Stop 11/02/24 08:29:00 Specialty Service SN Radiology Procedure EBL 1 mL Last Modified By: CARMEN Tripathi 11/02/24 08:30:05 Radiology Procedure Details - IR Entry 1 Radiology Sedation Case Times Sedation Total Time 0 Radiology - Fluid/Drainage Radiology Contrast Contrast Used? No Radiology Flouroscopy Fluoroscopy Used? Yes Fluoro Dose (mGy) 7.49 Fluoro Time 39seconds Radiology Local Local Used? Yes Local Type: lidocaine w/ epi Local Dose 8ml Radiology Procedure Site Site/Location right chest Site Condition No complications Suture 2.0 Ethilon Suture Dressing Type Tagaderm Technologist Notes 27cm cuff to tip right IJ Last Modified By: CARMEN Tripathi 11/02/24 08:34:33 General Case Data - IR Entry 1 Case Information Room AH IR 16 Case Level IR Level 2 Wound Class None Specialty SN Radiology Procedure ASA Class None Diagnosis Preop Diagnosis poor functioning perm Postop Same As Preop Yes cath, CAESAR Postop Diagnosis poor functioning perm cath, CAESAR Last Modified By: CARMEN Tripathi 11/02/24 08:12:00 Procedure Case Times- IR Entry 1 Patient In Procedure Patient In OR 11/02/24 07:59:00 Patient Out of OR 11/02/24 08:40:00 Procedure Start/Stop Procedure Start Time 11/02/24 08:08:00 Procedure Stop Time 11/02/24 08:29:00 Last Modified By: CARMEN Tripathi 11/02/24 08:30:01 Immediate Post OP Note - IR Entry 1 Immediate Post Yes Procedure Note displayed for Physician to review Closure Technique Closure Technique Other than Primary Last Modified By: CARMEN Tripathi 11/02/24 08:10:39 Immediate Post OP Note - IR Signed By: NORA DUTTA PA-C 11/02/24 08:30 Allergy Information- IR Entry 1 Allergies Reviewed? Yes Allergies Reviewed Patient With Last Modified By: CARMEN Tripathi 11/02/24 08:06:50 Radiology Protocols/Time Out- IR Entry 1 Preprocedure Clinician Verifies Correct patient ID When Clinically Confirmation of correct using name & date Indicated side(s) and site(s), or MRN, Accurate Correct diagnostic and procedure, complete radiology tests Informed Consent, H & P available, Required update immediately blood products, prior to procedure, if implants, devices applicable, Clinical and/or special team introduction equipment available complete OR/Procedure Room/Bedside Time 11/02/24 08:08:00 Clinician Verifies Correct patient identity including EMR & records using name and date or medical record number, Accurate procedure consent form, Correct patient position, Necessary equipment is available, Anticipated non-routine events with surgical team (case duration, estimated blood loss, patient specific concerns)., Webb patient factors for recovery and management identified with surgical team. When Applicable Confirmation correct Team Members NORA DUTTA side and site marked, Present for Time Out Zeeshan CARROLL Paper Sorter Relevant images and Bhumi Jimenez RN results are properly Simon labeled and appropriately displayed, Alcohol based prep dry, Double verification of sterility indicators complete Instrument Sterility Team Members NORA DUTTA Verifying Sterility Zeeshan CARROLL Paper SorterRose Mary Robertson Procedure IR Tunneled HD Exchange (SN) Last Modified By: CARMEN Tripathi 11/02/24 08:09:55 Skin Prep- IR Entry 1 Procedure IR Tunneled HD Exchange (SN) Skin Prep Prep Area Chest, Neck Side Right By Tom Byers Hair Removal Method N/A Last Modified By: CARMEN Tripathi 11/02/24 08:10:19 Patient Positioning- IR Entry 1 Procedure IR Tunneled HD Exchange Body Position OP Supine (SN) Feet Uncrossed? Yes Pressure Points Yes Checked Last Modified By: CARMEN Tripathi 11/02/24 08:10:29 Implants- IR Entry 1 Implant/Explant Implant Implant Description CATH HEMO-FLOW [id number] 5/BX [id number] Wasted? No Lot Number [id number] Sales Planning Manager medcomp Size 14.5f x 32cm Expiration Date 11/02/19 Implant Site right IJ Quantity 1 Last Modified By: CARMEN Tripathi 11/02/24 08:14:37 Radiology Procedure Plan - IR Entry 1 Radiology - Nursing Care Plan Outcome Statement The patient Outcome Statement The patient receives demonstrates knowledge Cont. appropriate of the expected medication(s), safely responses to the administered during the operative/invasive perioperative/invasive procedure., The period., The patient is patient's value system, free from signs and lifestyle, ethnicity, symptoms of injury and culture are caused by extraneous considered, respected, objects (equipment, and incorporated in the instrumentation, perioperative plan of sponges, or sharps). care., The patient is free from signs and symptoms of infection., The patient is free from signs and symptoms of injury related to positioning. Radiology - Action Plan Outcomes Met? Yes Online Merchant CARMEN Tripathi Completing Procedure Plan Last Modified By: CARMEN Tripathi 11/02/24 08:11:24 Case Comments <None> Finalized By: CARMEN Tripathi Document Signatures Signed By: CARMEN Tripathi 11/02/24 08:34 [facility] 02-20-2025 Summary of episode note Discharge Instructions Thank you for allowing [facility] to assist you with your healthcare needs. The following is importantdischarge information regarding your hospital visit. Your Care Team KAMRON LEPE MD What to do next Follow Up Appointments Follow Up with CINDY FALCON MD Where:[address] [place] [address] and [facility] [place] [address]- [phone] Someone Will Contact You Regarding These Home Health Referrals No home referrals have been ordered for you. No one will call you. Allergies codeine Unknown Medications Please ask your primary doctor or pharmacist before taking any other medication not listed, including over the counter drugs, herbal medications, vitamins and or supplements as they may interact withyour home medications. What How Much When Instructions Last Dose Unchanged acetaminophen 650 Milligram by mouth Every 6 hours as needed for as needed for fever Unchanged allopurinol (allopurinol 100 mg oral tablet) 1 tab(s) by mouth Once a day after a meal Unchanged ammonium lactate topical Topical Two (2) times a day Unchanged apixaban (Eliquis 5 mg oral tablet) 1 tab(s) by mouth Two (2) times a day Unchanged calcitriol (calcitriol 0.25 mcg oral capsule) 1 cap by mouth Every day Unchanged cyclobenzaprine (cyclobenzaprine 5 mg oral tablet) 1 tab(s) by mouth Three (3) times a day prn Unchanged diclofenac topical (diclofenac 1% topical gel) 1 application Topical Two (2) times a day as needed for Pain Unchanged docusate (Colace 100 mg oral capsule) 1 cap by mouth Two (2) times a day as needed for Constipation Unchanged famotidine (famotidine 40 mg oral tablet) 1 tab(s) by mouth Two (2) times a day Unchanged ferrous sulfate (ferrous sulfate 325 mg (65 mg elemental iron) oral delayed release tablet) 1 tab(s) by mouth Once a day Unchanged furosemide (furosemide 20 mg oral tablet) 1 tab(s) by mouth Once a day Unchanged hydrALAZINE (hydrALAZINE 50 mg oral tablet) 1 tab(s) by mouth Three (3) times a day Unchanged isosorbide mononitrate (isosorbide mononitrate 30 mg oral tablet, extended release) 1 tab(s) by mouth Once a day before a meal Unchanged magnesium hydroxide (Milk of Magnesia) 30 Milliliter by mouth Every day as needed for Constipation Unchanged metoprolol (metoprolol tartrate 25 mg oral tablet) 1 tab(s) by mouth Once a day Unchanged pantoprazole (pantoprazole 40 mg oral enteric coated tablet) 2 tab(s) by mouth Once a day Unchanged potassium chloride (Potassium Chloride (Aix-Tfjz-Qar M20) 20 mEq oral tablet, extended release) 1 tab(s) by mouth Once a day Please take this list to your next doctor s visit. Bring all medications you take, including over the counter medications, herbals and other supplements with you to your doctor s visit. Patients and families are reminded to discard old lists and to update any records with all medication providers or retail pharmacies. Education Materials [facility] SAME DAY SURGERY DISCHARGE INSTRUCTIONS PLEASE FOLLOW THE INSTRUCTIONS BELOW MARKED WITH AN X: _x__ Regular Diet: Start with clear liquids, then soup and crackers and gradually add other foods. ___ Drink extra fluids. ___ Special Diet Instructions: ___ ACTIVITY: ___ Avoid stress to suture line. Since you have had an anesthetic, it would be advisable not to drive, drink alcohol, or make major decisions over the next 24 hours. You may require more rest tonight and tomorrow. _x__ May resume regular activity as tolerated. ___ Restrict activity as follows: ___ ___ Walk Only ___ ___ Do not go up and down stairs. ___ Do not ride in car until ___ ___ Do not drive car. ___ Do not have sexual intercourse. ___ No heavy lifting, pushing or straining. ___ Other: ___ BATHING/SHOWERING: ___ Sponge bathe until office visit. ___ Sitting in tub of warm water may relieve discomfort. ___ May tub bathe ___ May shower ___ On day after surgery sit in tub of warm water to soak off dressing. DRESSING: ___ Keep operative area dry and clean for ___ ___ Check the operative area for signs of bleeding. Apply pressure to the bleeding site if necessary and call your physician. ___ Change dressing as necessary using sterile dressing material or bandaid. ___ Reinforce dressing as necessary. ___ Change and care for wound as follows: ___ ___ Wear bra for ___ days following breast surgery for comfort. ___ Change drip pad as needed. ___ Wear scrotal support for comfort. WATCH FOR SIGNS OF INFECTION: (Usually appears 36-48 hours after surgery) Increased temperature (101 degrees Fahrenheit or higher) Redness or swelling Increased pain Foul odor or drainage. If you have any questions, please call your doctor at the number listed on your follow up instructions. Follow all instructions given to you by your physician. Please complete and return the survey you will be receiving in the mail to help us better serve our patients. Form: 1522 ([id number]) R: 12/20 [place] Tunneled Catheter Insertion Discharge Instructions Interventional Radiology [facility] [address] [place] [address] A tunnel catheter is a special kind of intravenous line that can be used for dialysis or other treatment. The catheter is tunneled under your skin and goes into a large blood vessel that leads to your heart. DIET: Resume your regular diet as tolerated. ACTIVITY: No swimming, showering, or hot tubs while the tunnel catheter is in place. Keep your dressing dry. You may take a tub bath, but do not get your dressings wet. If your dressing gets wet call your healthcare provider. Avoid any heavy lifting or strenuous activity while the catheter is in place. Make sure not to pull on the catheter. Care should be taken to secure the catheter to prevent it from getting caught or pulled. Special instructions: MEDICATION: Please resume on . DRESSING AND CARE: A dry, secure, clean and intact dressing is essential to prevent catheter migration and infection. Do not change your dressing. Your healthcare provider will change the dressing. The dressing on your chest will stay as long as you have the catheter in place. Special instructions: WHEN TO SEEK MEDICAL CARE: You develop any signs of infection around the insertion site (redness, swelling, increased pain, bleeding, or unusual drainage). You develop unexplained fever or chills. If tube comes out or becomes dislodged IF YOU EXPERIENCE ANY OF THESE ISSUES DURING THE FIRST 24 HOURS, PLEASE FOLLOW THE INSTRUCTION BELOW: 8:00 am-5:00 pm call [phone] After 24 hours, contact the physician who ordered this procedure for you. Additional Information VACCINATE! IT SAVES LIVES! Members of the community who have not yet received the COVID-19 vaccine and would like to receive it can visit one of [facility] vaccine clinics. There are many vaccine clinic locations within the [facility]. For locations and available times, please visit [email or web address].[place].gov/. It is important to note that some COVID mobile vaccine clinics are held outdoors and may be canceled in rainy or stormy conditions. To learn more about pediatric vaccinations (ages 5-11), we invite you to visit the [facility] webpage. [email or web address]/[email or web address]-Nfcnnryinw-[email or web address] [email or web address].htmlTo learn more about the COVID-19 vaccine, we invite you to visit the CDC website for a list of frequently asked questions.https://www.cdc.gov/coronavirus/2019-ncov/vaccines/faq.html [facility] Patient Portal Access Instructions: Stay connected with your healthcare team and access your personal medical information anytime with the [facility] Patient Portal. Please follow the directions below to create your [employer] account: 1.Access the email account you provided upon registration to the hospital/physician office.2.Look for an invitation email from [facility].3.Open the email and access the invitation link: AcceptInvitation to [facility].4.Fill in the required viramontes to create your account. To access your account, visit [employer]/UC[employer]. Click the blue button labeled Access Patient Portal and then log in with the username and password that you created in the steps above. You will be able to view your test results, lab results, a summary of your visits, upcoming appointments and more. There is also a convenient messaging option where you can send secure messages to your p [employer]. In addition, you will have the ability to download any documents or summaries to your computer and/or send the information securely to a physician. Remember that your healthcare information is confidential, so carefully consider who you will allowto register on the [facility] Patient Portal for access to your information. You can also access the [employer] Patient Portal on the [employer] keenan. Simply click on Patient Portal and then log into your account. If you would like to receive a full copy of your medical records, please contact the [facility] Medical Records Department by calling [phone], Wednesday through Wednesday between 8 a.m. and 4:30 p.m. HOW TO SAFELY DISPOSE OF PRESCRIPTION MEDICATIONS Please use one of the following methods to safely dispose of your unused medications. 1.Use a drug disposal kit: the drug disposal pouch allows you to safely discard your old and unuseddrugs. Ask your nurse to give you one when you are discharged.2.Visit a local take-back location: Many local pharmacies and police departments have programs that collect old and unwanted prescriptiondrugs. Call your local pharmacy or go to http://Monitor110.Cempra/7W2Qw5v to find one close to you.3.Make use of household items: Use cat litter or old coffee grounds to dispose medications if other options arenot available. Mix your drugs with these household products, seal them in an airtight container andthrow it into the garbage. Call [facility]: [phone] to be sure your drugs can be disposed of in this way. Some medicines may require a different approach.4.Never flush your medications down the toilet. IF YOU HAVE BEEN PRESCRIBED AN OPIOID FOR PAIN If you have been prescribed an opioid (such as hydrocodone, oxycodone or morphine), it is critical to understand the possible side effects and risks of opioid pain medications. Even when taken as directed, opioids can have several side effects including: Tolerance, meaning you might need to take more of a medication for the same pain relief. Nausea, vomiting and/or constipation. Sleepiness, dizziness, dry mouth, confusion, depression or itching. Physical dependence, meaning you have withdrawal symptoms when a medication is stopped, can develop within a few days. KNOW YOUR RESPONSIBILITIES It is important to know exactly how much and how often to take the opioid pain medications you are prescribed. Never take opioids in higher amounts or more often than prescribed. Do not combine opioids with alcohol or other drugs that cause drowsiness, such as benzodiazepines, also known as benzos, including diazepam and alprazolam, muscle relaxants or sleep aids. Never sell or share prescription opioids. This is illegal. Store opioids in a secure place and out of reach of others (including children, family, friends and visitors). The last page of this document has been signed and retained as a CHART COPY. Signatures Patient Education Materials 1-SDS Discharge Instructions Template (06/2018) (CUSTOM) Radiology- Tunneled Catheter Insertion 06/23/2024(CUSTOM) Medication Leaflets My discharge plan and instructions have been reviewed and explained to me and I,ROZ BAKER understand my current condition and have read and understand these discharge instructions. I have received a written copy of the plan/instructions. If I have questions, I am aware that I should contact my doctor. 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 Signature: Date/Time: Relationship to Patient: Witness Name/Signature: [id number] Note* Exam Date Time Procedure Performing Provider Status 11/02/24 8:47 AM IR Tunneled HD Exchange DONTEKENDRAROSMERY DO; Auth (Verified) [id number] ORIGINAL EXAMINATION: TUNNELED CATHETER EXCHANGE WITH FLUOROSCOPY:11/02/2024 8:48 am HISTORY: ORDERING SYSTEM PROVIDED HISTORY: Reason for Exam: poor functioning perm cath, CAESAR COMPARISON:[04/13/2024] EXISTING ACCESS SITE: Right internal jugular vein ANESTHESIA: Local MATERIALS: 27 cm cuff to tip; 14.5 Fr x 32 cm Medcomp Hemoflow dialysis catheter 2-0 prolene suture 0.035 Amplatz wire FLUOROSCOPY: 39 seconds Total Air Kerma Dose: 7.49 mGy. PROCEDURE: The procedure, risks, limitations, and alternatives were discussed. All questions were answered. Written informed consent obtained. Accompanying paperwork was verified for accuracy. Directed history and physical exam performed prior to the procedure. Medication reconciliation was performed by nursing personnel. Procedure was performed using a cap, sterile gown, sterile gloves, a large sterile sheet, hand hygiene and hospital-approved cutaneous antisepsis. The patient was positioned supine on the angiographic table and prepped and draped in usual sterile fashion. A critical pause was performed with assisting personnel just prior to the procedure with the patient's identity confirmed using 2 identifiers, confirming site and side. A wire was placed through the existing catheter into the IVC. After administration of lidocaine, the cuff was freed up with blunt dissection. The old catheter was exchanged for a new catheter over the wire. The cuff is located adjacent to the catheter site in the upper chest to facilitate easier removal in the future. Both lumens aspirate and flush very quickly. Both lumens were flushed with saline. Sterile caps attached. Fluoroscopy demonstrates the catheter tip in the upper right atrium. A documentation fluoroscopic image obtained. The catheter was fixed to the skin with suture. A sterile dressing was applied. COMPLICATIONS: None. EBL: 10 mL PATIENT CONDITION: Stable, unchanged. None IMPRESSION: 1. Successful uncomplicated exchange of a tunneled hemodialysis catheter with the tip in the upper right atrium. The procedure was performed by Nora Dutta, Physician Ladle Liner Helper. I concur with the contents of the report. Interpreted by: Gavino Bertrand DO Preliminary Report By: Nora Dutta PA-C Electronically signed By Gavino Bertrand DO Dictated Date: 11/02/2024 9:08:57 AM Prelim Date: 11/02/2024 3:54:30 PM Sign Date: 11/02/2024 4:21:35 PM Ordering Provider: [facility]02-20-2025 Note IR Procedure Record Summary Primary Physician: NORA DUTTA PA-C Finalized Date/Time: 11/02/24 08:34:37 Pt. Name: BAKERROZ/Sex: 1950 Male Med Rec #: [id number] Physician: Financial #: [id number] Pt. Type: S Room/Bed: [facility] [place] Admit/Disch: 11/02/24 05:45:20 - Institution: Allergies identified in patient's electronic medical record at time of printing on 11/02/24 Entry 1 Substance codeine Reaction Type Allergy Last Modified By: Snehal Larsen LPN 11/24/23 17:41:16 Case Attendance- IR Entry 1 Entry 2 Entry 3 Case Attendee NORA DUTTA PA-C Paper SorterCARMEN Mathur Role Performed Primary Surgeon Scrub Technologist Procedure Nurse Details Time In 11/02/24 08:08:00 11/02/24 07:59:00 11/02/24 07:59:00 Time Out 11/02/24 08:40:00 11/02/24 08:40:00 11/02/24 08:40:00 Procedure/Preference IR Tunneled HD Exchange IR Tunneled HD Exchange IR Tunneled HD Exchange Card (SN) (SN) (SN) Last Modified By: CARMEN Tripathi RN Corey Snider, RN Corey 11/02/24 08:30:02 11/02/24 08:30:02 11/02/24 08:30:02 Radiology Procedures- IR Entry 1 Procedure/Preference IR Tunneled HD Exchange Actual Procedure IR Perm Cath Exchange Card (SN) Primary Procedure Yes Primary Surgeon NORA DUTTA PA-C Anesthesia/Sedation Local Type Additional Procedure Times Start 11/02/24 08:08:00 Stop 11/02/24 08:29:00 Specialty Service SN Radiology Procedure EBL 1 mL Last Modified By: CARMEN Tripathi 11/02/24 08:30:05 Radiology Procedure Details - IR Entry 1 Radiology Sedation Case Times Sedation Total Time 0 Radiology - Fluid/Drainage Radiology Contrast Contrast Used? No Radiology Flouroscopy Fluoroscopy Used? Yes Fluoro Dose (mGy) 7.49 Fluoro Time 39seconds Radiology Local Local Used? Yes Local Type: lidocaine w/ epi Local Dose 8ml Radiology Procedure Site Site/Location right chest Site Condition No complications Suture 2.0 Ethilon Suture Dressing Type Tagaderm Technologist Notes 27cm cuff to tip right IJ Last Modified By: CARMEN Tripathi 11/02/24 08:34:33 General Case Data - IR Entry 1 Case Information Room IR 16 Case Level IR Level 2 Wound Class None Specialty SN Radiology Procedure ASA Class None Diagnosis Preop Diagnosis poor functioning perm Postop Same As Preop Yes cath, CAESAR Postop Diagnosis poor functioning perm cath, CAESAR Last Modified By: CARMEN Tripathi 11/02/24 08:12:00 Procedure Case Times- IR Entry 1 Patient In Procedure Patient In OR 11/02/24 07:59:00 Patient Out of OR 11/02/24 08:40:00 Procedure Start/Stop Procedure Start Time 11/02/24 08:08:00 Procedure Stop Time 11/02/24 08:29:00 Last Modified By: CARMEN Tripathi 11/02/24 08:30:01 Immediate Post OP Note - IR Entry 1 Immediate Post Yes Procedure Note displayed for Physician to review Closure Technique Closure Technique Other than Primary Last Modified By: CARMEN Tripathi 11/02/24 08:10:39 Immediate Post OP Note - IR Signed By: NORA DUTTA PA-C 11/02/24 08:30 Allergy Information- IR Entry 1 Allergies Reviewed? Yes Allergies Reviewed Patient With Last Modified By: CARMEN Tripathi 11/02/24 08:06:50 Radiology Protocols/Time Out- IR Entry 1 Preprocedure Clinician Verifies Correct patient ID When Clinically Confirmation of correct using name & date Indicated side(s) and site(s), or MRN, Accurate Correct diagnostic and procedure, complete radiology tests Informed Consent, H & P available, Required update immediately blood products, prior to procedure, if implants, devices applicable, Clinical and/or special team introduction equipment available complete OR/Procedure Room/Bedside Time 11/02/24 08:08:00 Clinician Verifies Correct patient identity including EMR & records using name and date or medical record number, Accurate procedure consent form, Correct patient position, Necessary equipment is available, Anticipated non-routine events with surgical team (case duration, estimated blood loss, patient specific concerns)., Webb patient factors for recovery and management identified with surgical team. When Applicable Confirmation correct Team Members NORA DUTTA side and site marked, Present for Time Out Zeeshan CARROLL Rad Tech Relevant images and Bhumi Jimenez RN results are properly Simon labeled and appropriately displayed, Alcohol based prep dry, Double verification of sterility indicators complete Instrument Sterility Team Members NORA DUTTA Verifying Sterility Zeeshan CARROLL Rad Tech Kelli L Procedure IR Tunneled HD Exchange (SN) Last Modified By: CARMEN Tripathi 11/02/24 08:09:55 Skin Prep- IR Entry 1 Procedure IR Tunneled HD Exchange (SN) Skin Prep Prep Area Chest, Neck Side Right By Tom Byers Hair Removal Method N/A Last Modified By: CARMEN Tripathi 11/02/24 08:10:19 Patient Positioning- IR Entry 1 Procedure IR Tunneled HD Exchange Body Position OP Supine (SN) Feet Uncrossed? Yes Pressure Points Yes Checked Last Modified By: CARMEN Tripathi 11/02/24 08:10:29 Implants- IR Entry 1 Implant/Explant Implant Implant Description CATH HEMO-FLOW [id number] 5/BX [id number] Wasted? No Lot Number [id number] Sales Planning Manager medcomp Size 14.5f x 32cm Expiration Date 11/02/19 Implant Site right IJ Quantity 1 Last Modified By: CARMEN Tripathi 11/02/24 08:14:37 Radiology Procedure Plan - IR Entry 1 Radiology - Nursing Care Plan Outcome Statement The patient Outcome Statement The patient receives demonstrates knowledge Cont. appropriate of the expected medication(s), safely responses to the administered during the operative/invasive perioperative/invasive procedure., The period., The patient is patient's value system, free from signs and lifestyle, ethnicity, symptoms of injury and culture are caused by extraneous considered, respected, objects (equipment, and incorporated in the instrumentation, perioperative plan of sponges, or sharps). care., The patient is free from signs and symptoms of infection., The patient is free from signs and symptoms of injury related to positioning. Radiology - Action Plan Outcomes Met? Yes Online Merchant CARMEN Tripathi Completing Procedure Plan Last Modified By: CARMEN Tripathi 11/02/24 08:11:24 Case Comments Finalized By: CARMEN Tripathi Document Signatures Signed By: CARMEN Tripathi 11/02/24 08:34 [id number] Interventional Radiology Focused Preprocedure History/Physical Reason for Visit poor functioning perm cath, CAESAR History of Presenting Illness/Planned IR Procedure poor functioning perm cath, CAESRA Last dose of Eliquis was 11/01/2024 Allergies (1) ActiveSeverityReaction codeineUnknown Home Medications (17) Active acetaminophen 650 mg = 2 tab(s), PRN, Oral, q6hr allopurinol 100 mg oral tablet 100 mg = 1 tab(s), Oral, qDayPC ammonium lactate topical , Topical, BID calcitriol 0.25 mcg oral capsule 0.25 mcg = 1 cap(s), Oral, Daily Colace 100 mg oral capsule 100 mg = 1 cap(s), PRN, Oral, BID cyclobenzaprine 5 mg oral tablet 5 mg = 1 tab(s), Oral, TID diclofenac 1% topical gel 1 keenan, PRN, Topical, BID Eliquis 5 mg oral tablet 5 mg = 1 tab(s), Oral, BID famotidine 40 mg oral tablet 40 mg = 1 tab(s), Oral, BID ferrous sulfate 325 mg (65 mg elemental iron) oral delayed release tablet 325 mg = 1 tab(s), Oral, qDay furosemide 20 mg oral tablet 20 mg = 1 tab(s), Oral, qDay hydrALAZINE 50 mg oral tablet 50 mg = 1 tab(s), Oral, TID isosorbide mononitrate 30 mg oral tablet, extended release 30 mg = 1 tab(s), Oral, qDayAC metoprolol tartrate 25 mg oral tablet 25 mg = 1 tab(s), Oral, qDay Milk of Magnesia 30 mL, PRN, Oral, Daily pantoprazole 40 mg oral enteric coated tablet 80 mg = 2 tab(s), Oral, qDay Potassium Chloride (Nyb-Kkal-Zul M20) 20 mEq oral tablet, extended release 20 mEq = 1 tab(s), Oral,qDay Problem List/Past Medical History (HFpEF) heart failure with preserved ejection fraction CAESAR (acute kidney injury) Acute kidney injury superimposed on chronic kidney disease Anemia Anemia in chronic kidney disease (CKD) Atrial fibrillation BMI 39.0-39.9,adult CHF, acute on chronic CRF (chronic renal failure) Cellulitis DU (duodenal ulcer) Debility HTN (hypertension) Hyperlipidemia Morbid obesity Septic joint of left knee joint Type 1 diabetes Surgical History Appendectomy Dialysis catheter Ankle Family History No family history recorded. Social History Alcohol Details: Use: Past. Home/Environment Details: Living situation: Home with assistance. Domestic Concerns: None. Lives In: Apartment, Single level home. Current Home Treatments Wound care. Substance Abuse Details: Type: Marijuana. Tobacco Details: Nicotine Use: Never (less than 100 in lifetime), Former smoker, quit more than 30 days ago. Physical Exam Vitals: Inxxqjsuhhm32 (06:52) Systolic Blood Xjilzrsm540 (06:52) Diastolic Blood Ppcmvhom60 (06:52) Pulse72 (06:52) NoY170 (06:52) Respiratory RateNo result General: Alert, cooperative. _ The remainder of the physical exam is noncontributory. Labs Anticoagulation Labs No qualifying data available. No qualifying data available. Assessment/Treatment Plan Image guided permanent Hemodialysis catheter exchange Post Procedure Discharge Plan Patient to be discharged home. _ Digitally Signed by NORA DUTTA PA-C on 11/02/2024 07:38 AM [id number] [facility] History of Present illness Narrative* Federico Park APRN.DRONE PILOT - 10/05/2024 9:24 AM EST Date: October 05, 2024 Chief Complaint: Established Patient Follow-Up (6 month f/u HF/AFIB) HISTORY OF PRESENT ILLNESS: Roz Baker is a 74 year old male who presents for Established Patient Follow- Up (6 month f/u HF/AFIB). Patient has history of chronic afib, HFpEF, and CKD on dialysis. Patient states that he sees anephrologist for management of hypertension, edema, and CKD. Patient states that he has been takinghis medications as prescribed. Patient denies chest pain, palpitations, dyspnea, or lightheadedness. ALLERGIES Allergen Reactions Codeine Unknown PAST MEDICAL HISTORY: PAST MEDICAL HISTORY Diagnosis Date Acute duodenal ulcer with hemorrhage 10/25/2022 Acute respiratory failure with hypoxia (HCC) Atrial fibrillation (HCC) 2022 Chronic kidney disease Electronic Maintenance Supervisor Dr. Julianne Dumas Chronic kidney disease on chronic dialysis (HCC) Dialysis on Wed, , Wed. COVID-19 Diabetes mellitus Type II (HCC) Essential hypertension History of echocardiogram 10/26/2022 LVEF is normal, estimated at 55% to 60%. There is mild mitral and tricuspid regurgitation. History of echocardiogram 05/18/2023 EF is 50%. LVH is noted. Moderate MR. ANASTACIA is 2.8. Trace GA and AR. Mild to Moderate TR. Iron deficiency anemia historical site guide current use of insulin (HCC) Nonalcoholic steatohepatitis (PEREZ) PAST SURGICAL HISTORY Procedure Laterality Date APPENDECTOMY LEG SURGERY HX FAMILY HISTORY Problem Relation Age of Onset Dementia Mother Cancer Father other (Congestive Heart Failure) Brother SOCIAL HISTORY: Tobacco Use: 1 packs/day, for 30 years. Quit 09/13/1995. Types: Cigarettes Alcohol Use: Not Currently Drug Use: Not Currently (Previous Occasional use of Marijuana.) Employer And Job Title: None on file Years Of Education Completed: Not specified Marital Status: Single MEDICATIONS: Current Outpatient Medications Medication Sig furosemide (LASIX) 20 mg tablet Take 20 mg by mouth every morning. isosorbide mononitrate ER (IMDUR) 60 mg 24 hr tablet Take 1 tablet by mouth every morning. pantoprazole DR (PROTONIX) 40 mg tablet Take 1 tablet by mouth once daily. apixaban (ELIQUIS) 5 mg tab(s) Take 1 tablet by mouth two times a day. b complex, c, folic acid 1 mg renal vitamins (RENAL CAPS) 1 mg capsule Take 1 capsule by mouth oncedaily. hydrALAZINE (APRESOLINE) 50 mg tablet Take 1.5 tablets by mouth every 8 hours. (Patient taking differently: Take 100 mg by mouth two times a day.) famotidine (PEPCID) 40 mg tablet Take 1 tablet by mouth every 12 hours. allopurinol (ZYLOPRIM) 100 mg tablet Take 100 mg by mouth once daily. insulin lispro (HUMALOG KWIKPEN) 100 unit/mL pen Inject 1 Units subcutaneously two times a day. Sliding scale: BS 151-200= 1 UNITS BS 201-250= 2 UNITS BS 251-300= 3 UNITS BS 301-350= 4 UNITS BS 351-999= 5 UNITS metoprolol succinate ER (TOPROL XL) 25 mg 24 hr tablet Take 1 tablet by mouth daily with dinner. No current facility-administered medications for this visit. I have personally reviewed the patients past medical history including social, family, surgical, diagnostics, and medications. REVIEW OF SYSTEMS: Review of Systems Constitutional: Negative for chills and fatigue. Respiratory: Negative for cough, chest tightness, shortness of breath, wheezing and stridor. Cardiovascular: Positive for leg swelling (chronic). Negative for chest pain and palpitations. Gastrointestinal: Negative. Skin: Negative. Neurological: Negative for dizziness, syncope, weakness, light-headedness, numbness and headaches. Hematological: Bruises/bleeds easily. Psychiatric/Behavioral: Negative for confusion and hallucinations. PHYSICAL EXAMINATION: BP 124/62 (BP Site: Right Arm, BP Position: Sitting) Pulse 82 Resp 18 Ht 177.8 cm (5' 10) Wt 89.9 kg (198 lb 3.1 oz) SpO2 97% BMI 28.44 kg/m Last 3 Encounter BP Readings: Date: BP: 07/22/2024 165/80 05/03/2024 132/79 04/27/2024 110/56 Last 3 Encounter Pulse Readings: Date: Pulse: 07/22/2024 84 05/03/2024 70 04/27/2024 91 Last 3 Encounter Wt Readings: Date: Wt: 07/22/2024 83.7 kg (184 lb 8.4 oz) 03/31/2024 97.8 kg (215 lb 9.8 oz) 03/23/2024 96.6 kg (213 lb) Physical Exam Constitutional: General: He is not in acute distress. Appearance: Normal appearance. He is obese. He is not diaphoretic. HENT: Head: Normocephalic and atraumatic. Mouth/Throat: Mouth: Mucous membranes are moist. Pharynx: Oropharynx is clear. Eyes: General: No scleral icterus. Conjunctiva/sclera: Conjunctivae normal. Neck: Vascular: No carotid bruit. Cardiovascular: Rate and Rhythm: Normal rate. Rhythm irregular. Pulses: Normal pulses. Radial pulses are 2+ on the right side and 2+ on the left side. Heart sounds: Murmur heard. Systolic murmur is present with a grade of 2/6. Pulmonary: Effort: Pulmonary effort is normal. Breath sounds: Normal breath sounds. No wheezing or rales. Abdominal: General: Bowel sounds are normal. Palpations: Abdomen is soft. Tenderness: There is no right CVA tenderness or left CVA tenderness. Musculoskeletal: Cervical back: Normal range of motion and neck supple. No rigidity. Right lower le+ Edema present. Left lower le+ Edema present. Skin: General: Skin is warm and dry. Capillary Refill: Capillary refill takes less than 2 seconds. Coloration: Skin is not jaundiced or pale. Neurological: General: No focal deficit present. Mental Status: He is alert and oriented to person, place, and time. Psychiatric: Behavior: Behavior normal. Thought Content: Thought content normal. LABS: Glucose (mg/dL) Date Value 07/29/2024 126 2023 143 Potassium (mmol/L) Date Value 07/29/2024 4.1 2023 3.8 Sodium (mmol/L) Date Value 07/29/2024 136 2023 133 Chloride (mmol/L) Date Value 07/29/2024 97 2023 89 CO2 (mmol/L) Date Value 07/29/2024 28 2023 28 Creatinine (mg/dL) Date Value 07/29/2024 3.54 2023 3.97 BUN (mg/dL) Date Value 07/29/2024 40 2023 92 Anion Gap (mmol/L) Date Value 07/29/2024 11 2023 19.8 Calcium (mg/dL) Date Value 2023 8.4 Calcium, Total (mg/dL) Date Value 07/29/2024 8.7 Protein, Total (g/dL) Date Value 07/29/2024 6.4 05/23/2023 6.8 Albumin (g/dL) Date Value 07/29/2024 3.4 05/23/2023 3.1 Bilirubin, Total (mg/dL) Date Value 07/29/2024 0.3 05/23/2023 0.7 Alkaline Phosphatase (U/L) Date Value 07/29/2024 79 05/23/2023 62 AST (U/L) Date Value 07/29/2024 16 05/23/2023 13 ALT (U/L) Date Value 07/29/2024 <5 05/23/2023 < 5 Hemoglobin (g/dL) Date Value 07/29/2024 10.8 2023 8.7 Hematocrit (%) Date Value 07/29/2024 37.3 2023 28.5 WBC Date Value 07/29/2024 6.01 k/uL 2023 6.4 x10(3) Cholesterol, Total (mg/dL) Date Value 01/28/2023 143 Total Cholesterol, Nonfasting (mg/dL) Date Value 07/29/2024 128 HDL Cholesterol (mg/dL) Date Value 01/28/2023 41 HDL Cholesterol, Nonfasting (mg/dL) Date Value 07/29/2024 40 LDL Cholesterol, Nonfasting (mg/dL) Date Value 07/29/2024 74 LDL (mg/dL) Date Value 01/28/2023 90 Triglyceride (mg/dL) Date Value 01/28/2023 61 Triglycerides, Nonfasting (mg/dL) Date Value 07/29/2024 70 EKG: Atrial fibrillation: HR 82 bpm. DIAGNOSTIC TEST RESULTS: Recent Results (from the past 24 hour(s)) ECG COMPLETE Collection Time: 10/05/24 10:43 AM Result Value Ref Range Ventricular Rate 82 BPM Atrial Rate 300 BPM QRS Duration 116 ms QT Interval 414 ms QTC Calculation (Bazett) 483 ms Calculated R [place] -41 degrees Calculated T [place] 76 degrees Narrative NAME : ROZ BAKER PID : [id number] : 1950 Gender : Male Race : ORD : [id number] Procedure Date : Oct 05 2024 10:43:26 Edit Date : Oct 05 2024 09:39:18 Diagnosis: Atrial fibrillation Left axis deviation Prolonged QT Abnormal ECG When compared with ECG of 22-Jul-2024 16:11, T wave inversion no longer evident in Anterior leads Test Reason : HCS Location : 2 : [place] Overread By : , Edited By : , Referred By : , Acquired by : , Impression Atrial fibrillation Left axis deviation Prolonged QT Abnormal ECG When compared with ECG of 22-Jul-2024 16:11, T wave inversion no longer evident in Anterior leads ASSESSMENT/PLAN: 1. Longstanding persistent atrial fibrillation (HCC) - ICD9: 427.31, ICD10: I48.11 (primary diagnosis) - Rate controlled - Anticoagulated on Eliquis. - ECG COMPLETE 2. Chronic heart failure with preserved ejection fraction (HFpEF) (HCC) - ICD9: 428.9, ICD10: I50.32 - Stable - Currently on Lasix therapy. - Start Toprol 25 mg daily. - Encouraged sodium restriction - Encouraged daily weights - Recommend regular aerobic exercise 3. Primary hypertension - ICD9: 401.9, ICD10: I10 - Controlled - Encouraged sodium restriction, DASH or Mediterranean diet - Recommend regular aerobic exercise - Discussed need for and benefit of weight loss. BMI 28.44 kg/(m^2) - Reviewed risks of hypertension and principles of treatment - Managed by Electronic Maintenance Supervisor. 4. Chronic kidney disease on chronic dialysis (HCC) - ICD9: 585.9, V45.11, ICD10: N18.6, Z99.2 - Counseled on low sodium diet - Managed by Electronic Maintenance Supervisor. 5. Overweight with body mass index (BMI) of 28 to 28.9 in adult - ICD9: 278.02, V85.24, ICD10: E66.3, Z68.28 Federico Park APRN.CNP Follow up in 1 year. Greater that 51% of my time was spent with yotv-lu-cvst conversation with the patient. I have discussed the recommended treatment, alternative therapies and other options in detail. I've discussed the best benefit and side effects of these recommended treatments. I've attempted to answer all the questions to the patient's satisfaction and understanding. After leaving the exam room, I went back into the patient's chart and coordinated care with my nurse ordering the proper testing and medicinal changes. Letter was performed with voice recognition algorithms and sent to the referring team. The chart was completed. Including the pre-exam, exam and post- exam, the total time spent in the patient's management was greater than 40 minutes. I, Federico Park CNP have reviewed and agree with the information in the medical record. Federico Park APRN.CNP [facility] Evaluation note* Diagnosis Onset Date Resolution Status Admit Date AV fistula acute September 28, 2024 9:35am ESRD (end stage renal disease) on dialysis chronic September 9:35am ESRD (end stage renal disease) on dialysis chronic November 16, 2024 12:52pm ESRD (end stage renal disease) on dialysis chronic January 09, 2025 7:05am [facility] Work Phone: 1(256) 348-587712-31-2024 [facility] Medical Records Department [address] [place] [id number] History Physical Exam 09/12/24 0737 MR#: [id number] Acct: [id number] Name: ROZ BAKER Rep #: [id number] : 1950 74 From: Hugo Alvarado MD PCP: Dr. Kamron Lepe MD Status:[facility] Location: [place] [address] History and Physical Allergies codeine Allergy (Severe, Verified 08/21/24 13:47) Vomiting Medications ???Medication ???Instructions ???Recorded ???Confirmed ???Type furosemide 20 mg tablet (Lasix) 20 mg PO BID 08/21/24 08/21/24 History hydrochlorothiazide 50 mg tablet 100 mg PO BID 08/21/24 08/21/24 History vitamin B complex and vitamin C 1 cap PO QDAY 08/21/24 08/21/24 History no.20-folic acid 1 mg capsule (Renal Caps) Have you fallen in the past year?: Yes [facility] Medical History (Updated 08/21/24 @ 15:[address] Hugo Alvarado MD) CHF (congestive heart failure) Peptic ulcer Hypertension Diabetes ESRD (end stage renal disease) Surgical History (Updated 08/21/24 @ 13:44 by Magy Kee) Hx of cholecystectomy History of ankle surgery Social History (Updated 08/21/24 @ 13:45 by Magy Kee) Smoking Status: Former smoker Tobacco: How many years used: 30 how long ago did patient quit smokin yrs HPI HPI HPI: ROZ BAKER, is a 74 M who presents to the office today for evaluation for dialysis access. He has been on HD via right IJ catheter since March. Had been followed for many years for renal decline due to HTN and DM. No prior arm or clavicle fracture/pacer/node dissection/DVT/PICC. Right hand dominant. ROS General General: Yes weight change; No appetite, fatigue, colon cancer, breast cancer or weakness HEENT HEENT: No difficulty swallowing, eye injury, eye surgery, swollen glands or hoarseness Endo Endocrine: No thyroid disease, diabetes mellitus, thyroid cancer, Hair loss, heat intolerance or cold intolerance Skin Skin: No rash or changing moles Musc Musculoskeletal: Yes arthritis, gout and joint pain; No back problems or rheumatoid arthritis Cardio Cardiovascular: Yes murmur and high blood pressure; No pacemaker, heart disease, atrial fibrillation, heart attack, heart stent, palpitations, shortness of breat with exertion or chest pain Psych Psychiatric: No depression, anxiety or hearing voices Resp Respiratory: Yes shortness of breath, No sleep apnea, No cough, No COPD, No asthma, No emphysema and No wheezing Gastro Gastrointestinal: No abdominal pain, No nausea or vomiting, No diarrhea, No constipation, No blood in stool, No acid reflux, No hemorrhoids, Yes ulcers, No gallbladder problem and No black,tarry stools Zan Hematologic: Yes blood thinners, No blood disorders, No bleeding, No anemia and No blood clots Neuro Neurologic: No system reviewed and no additional complaints, except as documented, No as per HPI, No abnormal gait, No abnormal hearing, No abnormal movements, No abnormal speech, No behavioral changes, No burning sensations, No confusion, No convulsions, No disequilibrium, No dizziness, No localized weakness, No frequent falls, No headache(s), No lack of coordination, No loss of vision, No memory loss, Yes numbness, No other visual disturbances, No radicular pain, No restless legs, No sensory deficit, No syncope, Yes tingling, No tremor(s), No weakness and No other Exam Const General: cooperative, healthy appearing, comfortable, no acute distress and well developed Nutritional Appearance: well nourished Orientation: alert, awake and oriented x3 HENMT Head: normocephalic and atraumatic Ears: hearing grossly normal bilaterally Nose: external nose normal Eyes General: appearance normal, both eyes and all related structures EOM: EOM intact bilaterally Neck Neck: normal visual inspection, full ROM and trachea midline Resp Effort Inspection: normal respiratory effort, able to speak in complete sentences, symmetric chest movement, no audible wheezes, not labored, no stridor and no use of accessory muscles Cardio Rate: regular rate Rhythm: regular rhythm Pulses: brachial pulses present and radial pulses present Skin General: no rashes or lesions noted and no erythema Wounds: no wounds Neuro Cranial Nerves: CN's II-XI intact bilaterally and EOM intact bilaterally Speech: speech normal Gait: normal gait Motor: strength 5/5 throughout Sensory Exam: no sensory deficits noted Psych Appearance: grossly normal and well kempt Mental Status: mental status grossly normal Mood: congruent mood Speech and Movement: speech and movement normal Thought Content: normal Judgment: judgment good Coding Level of Care Code Off vis,new,level 4 Diagnoses ESRD (end stage renal disease) on dialysis N18.6; Z99.2 Assessment and Plan Assessment and Plan (1) ESRD (end stage renal disease) on dialysis: Stat (more content not included)...[facility]11-11-2024 [facility]11-11-2024 [facility]11-11-2024 [facility] 07-23-2024 [facility]11-09-2024 [facility]09-24-2024 Telephone encounter Note* Telephone Encounter - Oksana Obando RN - 06/06/2024 3:00 PM EDT VM left by Javi with [employer] regarding approval for the lymphedema pumps but unableto reach pt. They have tried multiple times and there is no answer and they are not able to leave amessage. They are requesting help from [facility] to contact pt. TC to Conchis at [employer],advised her pt no longer a wound center pt and she will need to call Dr Olivia's office and see if they have seen pt or not and she verbalized understanding. [facility]09-[facility] Miscellaneous Notes* Telephone Encounter - Oksana Obando RN - 06/06/2024 3:00 PM EDT VM left by Javi with [employer] regarding approval for the lymphedema pumps but unableto reach pt. They have tried multiple times and there is no answer and they are not able to leave amessage. They are requesting help from [facility] to contact pt. TC to Conchis at [employer],advised her pt no longer a wound center pt and she will need to call Dr Olivia's office and see if they have seen pt or not and she verbalized understanding. documented in [facility] encounterSal[facility]08-[facility] Nurse Note* Jyothi Gar RN - 05/03/2024 11:38 AM EDT DISCHARGE DRESSING APPLIED BY JYOTHI GAR RN PER PROVIDER ORDER [facility]08-21-20[facility] Nurse Note* Jyothi Gar RN - 05/03/2024 11:38 AM EDT DISCHARGE DRESSING APPLIED BY JYOTHI GAR RN PER PROVIDER ORDER * Liliana Allen LPN - 05/03/2024 10:45 AM EDT WOUND ASSESSMENT COMPLETED BY SALLIE ESTRELLA LPN. REMAINS HEALED. documented in this encounterSal[facility]08-21-2024 [facility] 05-03-2024 History of Present illness Narrative* Ngozi Vigil MD - 05/03/2024 11:26 AM EDT [facility] PROGRESS NOTE SERVICE DATE: 05/03/2024 SERVICE TIME: 11:27 AM Subjective Roz Baker is a 73 year old male who presents today for follow up at [facility] [place]. Patient reports the patient reports that his wounds are healed he has no new complaints Objective PHYSICAL EXAM: BP 132/79 Pulse 70 Temp 97 Resp 16 Physical Exam Constitutional: General: He is not in acute distress. Appearance: He is obese. He is not ill-appearing, toxic-appearing or diaphoretic. HENT: Head: Normocephalic and atraumatic. Right Ear: External ear normal. Left Ear: External ear normal. Eyes: Conjunctiva/sclera: Conjunctivae normal. Pulmonary: Effort: Pulmonary effort is normal. No respiratory distress. Breath sounds: No stridor. Abdominal: General: Abdomen is flat. There is no distension. Musculoskeletal: General: No tenderness. Cervical back: No rigidity. Skin: General: Skin is warm and dry. Coloration: Skin is not jaundiced or pale. Findings: No bruising, erythema, lesion or rash. Neurological: Mental Status: He is alert and oriented to person, place, and time. Mental status is at baseline. Motor: Weakness present. Gait: Gait normal. Psychiatric: Mood and Affect: Mood normal. Behavior: Behavior normal. Thought Content: Thought content normal. Review of Systems ASSESSMENT AND PLAN: No diagnosis found. ASSESSMENT/PLAN: 1. 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) - ICD9:707.19, ICD10: L97.812 HEALED RIGHT LOWER EXTREMITY AND LEFT LOWER EXTREMITY ULCERS: Apply moisture cream to intact skin Medium single tubi clinical resource nurse BLE Elevate your legs above the level of your heart and do ankle pumps and circles. Take 1/2 tab of Multi-vitamin twice a day, Vitamin D3 5000 international unit(s) daily and eat highprotein foods to help promote wound healing. If you have questions or concerns: Wednesday-Wednesday 8am-4:30pm, call the [facility] at [phone]. After 4:30pm, on weekends or holidays, call [facility] at [phone] and have the physician operator weapon locating radar paged. Please pick up worker your Juxta Lite Compression Garments at [employer] and bring them to your next [facility] appointment. Apply your lymphedema pumps to both of your legs at 40mm/Hg for 30-60 minutes 2- 3 times a day ONCE OBTAINED. AN ORDER FOR THE PUMPS WILL BE INITIATED TODAY AND YOU SHOULD HEAR FROM THE SUPPLIER REGARDING DELIVERY AND INSTRUCTIONS.Healed Ngozi Vigil MD No orders of the defined types were placed in this encounter. Follow up: weeks. PATIENT NAME: Roz Baker DATE: May 03, 2024 Signature: Ngozi Vigil MD TIME: 11:27 AM documented in [facility] encounter[facility] Nurse Note* Liliana Allen LPN - 05/03/2024 10:45 AM EDT WOUND ASSESSMENT COMPLETED BY SALLIE ESTRELLA LPN. REMAINS HEALED. [facility]08-15-2024 Nurse Note* Sallie Estrella LPN - 04/27/2024 10:42 AM EDT DISCHARGE DRESSING APPLIED BY JYOTHI GAR RN and SALLIE ESTRELLA LPN PER PROVIDER ORDER [facility]08-15-2024 Nurse Note* Sallie Estrella LPN - 04/27/2024 10:42 AM EDT DISCHARGE DRESSING APPLIED BY JYOTHI GAR RN and SALLIE ESTRELLA LPN PER PROVIDER ORDER * Ana Leslie RN - 04/27/2024 9:51 AM EDT WOUND ASSESSMENT COMPLETED BY LILIANA ALLEN LPN CHT. Wrap on right slid down 2 inches. documented in this encounterSal[facility]24 [facility] 04-27-2024 History of Present illness Narrative* Gilmer Olivia DPM - 04/27/2024 10:29 AM EDT Images from the original note were not included. Wound Care Progress Note Subjective: Patient presents with: Wound Check HISTORY of PRESENT ILLNESS HPI Roz Baker is a 73 year old male who presents today for wound/ulcer evaluation. History of Wound Context: Venous ulcer Wound/Ulcer Pain Timing/Severity: AMB ROOMING INTAKE FLOWSHEET DATA Risk Screening Do you have concerns about personal safety or safety in the home?: No Patient seen today for bilateral lower extremity ulcerations. Patient has been elevating the legs and tolerating the compression wraps well. He has no new complaints. PAST MEDICAL HISTORY 10/25/2022: Acute duodenal ulcer with hemorrhage No date: Acute respiratory failure with hypoxia (HCC) 2022: Atrial fibrillation (HCC) Comment: eliquis stopped with large duodenal ulcer No date: CHF exacerbation (HCC) No date: Chronic kidney disease Comment: Electronic Maintenance Supervisor Dr. Julianne Dumas No date: Chronic kidney disease on chronic dialysis (HCC) Comment: Dialysis on Mon, Tu, Fri. No date: COVID-19 No date: Diabetes mellitus Type II (HCC) No date: Difficulty in walking, not elsewhere classified No date: Essential hypertension 10/26/2022: History of echocardiogram Comment: LVEF is normal, estimated at 55% to 60%. There is mild mitral and tricuspid regurgitation. 05/18/2023: History of echocardiogram Comment: EF is 50%. LVH is noted. Moderate MR. ANASTACIA is 2.8. Trace GA and AR. Mild to Moderate TR. No date: Iron deficiency anemia No date: group home current use of insulin (HCC) No date: Morbid obesity (HCC) No date: Muscle weakness (generalized) No date: Need for assistance with personal care No date: Nonalcoholic steatohepatitis (PEREZ) No date: Unsteadiness on feet PAST SURGICAL HISTORY No date: APPENDECTOMY No date: LEG SURGERY HX Social History Tobacco Use Smoking status: Former Packs/day: 1.00 Years: 30.00 Additional pack years: 0.00 Total pack years: 30.00 Types: Cigarettes Quit date: 1995 Years since quittin.6 Smokeless tobacco: Never Vaping Use Vaping Use: Never used Substance Use Topics Alcohol use: Not Currently Drug use: Not Currently Frequency: 2.0 times per week Types: Marijuana Comment: Previous Occasional use of Marijuana. ALLERGIES Allergen Reactions Codeine Unknown Current Outpatient Medications on File Prior to Visit Medication Sig COMPRESSION SLEEVE once daily. predniSONE (DELTASONE) 20 mg tablet Take 20 mg by mouth once daily. empagliflozin (JARDIANCE) 10 mg tablet Take 1 tablet by mouth daily with breakfast. apixaban (ELIQUIS) 5 mg tab(s) Take 1 tablet by mouth two times a day. b complex, c, folic acid 1 mg renal vitamins (RENAL CAPS) 1 mg capsule Take 1 capsule by mouth oncedaily. hydrALAZINE (APRESOLINE) 50 mg tablet Take 1.5 tablets by mouth every 8 hours. isosorbide mononitrate ER (IMDUR) 30 mg 24 hr tablet Take 2 tablets by mouth once daily. SODIUM BICARBONATE, BULK, ORAL Take 650 mg by mouth two times a day. famotidine (PEPCID) 40 mg tablet Take 1 tablet by mouth every 12 hours. omeprazole (PRILOSEC) 20 mg capsule Take 20 mg by mouth once daily. silver sulfADIAZINE (SILVADENE) 1 % cream Apply 1 application to affected area once daily. ipratropium-albuterol (DUONEB) 0.5 mg-3 mg(2.5 mg base)/3 mL nebu Inhale 3 mL as instructed every 4hours as needed for wheezing/shortness of breath. ondansetron (ZOFRAN) 4 mg tablet Take 4 mg by mouth every 8 hours as needed for nausea/vomiting. allopurinol (ZYLOPRIM) 100 mg tablet Take 100 mg by mouth once daily. bisacodyl (DULCOLAX) 10 mg supp 10 mg by RECTAL route once daily as needed for constipation. metoprolol succinate ER (TOPROL XL) 100 mg Take 1 tablet by mouth once daily. Patient should start on December 21, 2023. furosemide (LASIX) 40 mg tablet Take 1 tablet by mouth once daily. cholecalciferol (VITAMIN D-3) 5,000 unit tab Take 5,000 Units by mouth once daily. Zinc Sulfate 50 mg zinc (220 mg) tab Take 50 mg by mouth once daily. glucagon 1 mg/mL injection Inject 1 mg subcutaneously as needed. cyclobenzaprine (FLEXERIL) 5 mg tablet Take 5 mg by mouth three times a day as needed for muscle spasm. acetaminophen 650 mg CR tablet Take 650 mg by mouth every 8 hours as needed for pain. insulin lispro (HUMALOG KWIKPEN) 100 unit/mL pen Inject 1 Units subcutaneously two times a day. Sliding scale: BS 151-200= 1 UNITS BS 201-250= 2 UNITS BS 251-300= 3 UNITS BS 301-350= 4 UNITS BS 351-999= 5 UNITS calcitriol (ROCALTROL) 0.25 mcg capsule Take 1 tablet by mouth every afternoon. No current facility-administered medications on file prior to visit. Objective: BP 110/56 Pulse 91 Temp 36.4 C (97.5 F) Resp 16 Last 3 Encounter Wt Readings: Date: Wt: 03/31/2024 97.8 kg (215 lb 9.8 oz) 03/23/2024 96.6 kg (213 lb) 03/05/2024 102.6 kg (226 lb 3.1 oz) Physical Exam Compression Therapy: Bilateral, Double layer below the knee Treatments/Procedures Compression Therapy: Bilateral, Double layer below the knee Peripheral Vascular R Calf Circumference (cm): 39.4 cm L Calf Circumference (cm): 36.2 cm R Ankle Measurement (cm): 31.7 cm L Ankle Measurement (cm): 28 cm Lower Extremity Circulation Pulses Palpation - LEFT dorsal pedis pulse: +1 Pulses Palpation - RIGHT dorsal pedis pulse: +1 Pulses Palpation - LEFT dorsal pedis pulse: +1 Pulses Palpation - RIGHT dorsal pedis pulse: +1 Neuro: Diminished protective sensation. No clonus noted. Negative Babinski exam to the lower extremities bilaterally. Derm: Skin Condition/Temp: Warm (BLE). The skin on bilateral lower extremities very dry flaky and peeling. The ulcerations appear to have completely epithelialized. Patient has no erythema, purulent drainage or malodor. Ulcerations appear to have healed. See picture and description of ulcerations be low. Ortho: LLE: Swelling Musculoskeletal LLE: Swelling RLE: Swelling Patient has 4/5 muscle strength of the lower extremities bilaterally. No pain with palpation no crepitation noted. LABS: No results found for: CRP No results found for: WSR INR Date Value Ref Range Status 11/05/2023 1.4 (H) 0.9 - 1.3 Final Comment: Vitamin K Antagonist (VKA) Therapeutic Range: INR 2 to 3 (Target INR of 2.5) Note: For patients treated with VKA drugs, such as warfarin, the [place] [employer] 2012 Guideline recommends a therapeutic INR range of 2 to 3 (target INR of 2.5). This recommendation includes high-risk patients with antiphospholipid syndrome with previous arterial or venous thromboembolism, current-generation mechanical or bioprosthetic aortic heart valve replacement. Note: Patients with mechanical aortic valve replacement and additional risk factors for thromboembolic events (atrial fibrillation, previous thromboembolism, LV dysfunction, hypercoagulable conditions) or an older generation mechanical AVR (i.e., ball in-Cage) or any mechanical MVR should have a INR therapeutic range of 2.5 to 3.5 (target INR of 3). Ashly GH, et al. Chest 2012, 141:7S-47S Liss FREGOSO, et al. [facility] 2017, 70: 252-289 APTT Date Value Ref Range Status 11/05/2023 26.4 25.1 - 36.5 sec Final Comment: [facility] Heparin Therapeutic Range: 54-90 seconds Hemoglobin A1C (%) Date Value 04/24/2023 6.9 01/28/2023 7.2 12/29/2022 8.0 10/30/2022 7.3 05/01/2022 6.8 MICROBIOLOGY: Positive Micro-30 Days No results found for the last 720 hours. IMAGING: Last XR Foot - Impression Only No resulted procedures found. Last XR Ankle - Impression Only XR ANKLE GENERAL 3V AP/LAT/OBL LEFT Resulted: 02/03/2016 7:04 PM (Final result) Impression: 1. Status post ORIF of the distal fibular fracture. No new fractures identified. 2. Mild degenerative changes at the ankle joint. 3. Mild soft tissue swelling of the ankle without any underlying acute osseous abnormality. 4. Calcaneal enthesopathy ... Last MRI Foot - Impression Only No resulted procedures found. Last MRI Ankle - Impression Only No resulted procedures found. Wound 12/06/23 1414 Venous Ulcer Pretibial Right;Lower (Active) Properties Placement Date 12/06/23 Placement Time 1414 Location Pretibial Wound Approximate Age at First Assessment (Weeks) 52 weeks Primary Wound Type Venous Ulcer Wound Location Orientation Right;Lower Wound Description (Comments) [facility] G2 Assessments 04/27/2024 9:00 AM Wound Image Lizzeth-Wound Assessment Dry;Hyperpigmented;Peeling;Scarred Wound Length (cm) 0 cm Wound Width (cm) 0 cm Wound Surface Area (cm^2) 0 cm^2 Wound Depth (cm) 0 cm Wound Volume (cm^3) 0 cm^3 Wound Healing % 100 Drainage Description Serosanguineous Drainage Amount Moderate (DRIED) Odor None Wound Bed Epithelium (%) 100 % Non-staged Wound Description Full thickness (GRADE 2) Wound 12/06/23 1415 Venous Ulcer Pretibial Left;Lower (Active) Properties Placement Date 12/06/23 Placement Time 141 Location Pretibial Wound Approximate Age at First Assessment (Weeks) 52 weeks Primary Wound Type Venous Ulcer Wound Location Orientation Left;Lower Wound Description (Comments) [facility] G2 Assessments 04/27/2024 9:00 AM Wound Image Lizzeth-Wound Assessment Dry;Hyperpigmented;Peeling;Scarred Wound Length (cm) 0 cm Wound Width (cm) 0 cm Wound Surface Area (cm^2) 0 cm^2 Wound Depth (cm) 0 cm Wound Volume (cm^3) 0 cm^3 Wound Healing % 100 Drainage Description Serosanguineous Drainage Amount Small (DRIED) Odor None Wound Bed Epithelium (%) 100 % Non-staged Wound Description Full thickness (GRADE 2) Procedures: Assessment and Plan: Chronic venous hypertension (idiopathic) with ulcer of bilateral lower extremity (code) (hcc) (primary encounter diagnosis) Non-pressure chronic ulcer of other part of left lower leg with fat layer exposed (hcc) Non-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 (hcc) Secondary lymphedema Type 2 diabetes mellitus with other skin ulcer (code) (hcc) Diabetic polyneuropathy associated with type 2 diabetes mellitus ([facility]) historical site guide current use of insulin ([facility]) Esrd (end stage renal disease) on dialysis ([facility]) Physician Plan: Wound orders placed during this encounter Patient advised that the ulcerations are healed. However I would like to place him back in the compression wraps for 1 more week. The last time he got out of the wraps he had significant recurrence of the ulcerations. He is to keep the compression 2 layer [address] system in place for the next week. Will apply Triad paste to his intact skin. Elevate legs frequently performing ankle pumps circles multiple times daily. Patient is awaiting his juxta lite compression garments. Once obtained he is to apply them in the morning and can remove at night. Will trial lymphedema pumps for him to see if we get a pair to help him reduce the risk of recurring ulcerations. I do believe that his dialysis is helping. Call if there are questions or concerns. Will have him follow-up with Dr. Vigil in 1 week Treatment Note please see attached After Visit Summary Thank you for choosing [facility] and allowing us to help heal your wounds. SIGNATURE: Gilmer Olivia DPM PATIENT NAME: Roz Baker DATE: April 27, 2024 TIME: 10:29 AM documented in this encounterSalem City Hospital08-15-2024 Instructions* Patient Instructions* Oksana Obando RN - 04/27/2024 9:53 AM EDT HEALED RIGHT LOWER EXTREMITY AND LEFT LOWER EXTREMITY ULCERS: Shower with dressing protected/covered Cleanse ulcers with normal saline Apply triad paste to BLE Apply 2 layer compression bandage system May pad ankle/achilles with felt/foam or cast padding as needed Change weekly at [facility] and as needed If problems with compression and you are instructed, remove compression wrap, cleanse the ulcer with saline, apply silvadene, cover with dry dressing and change dressing daily and as needed. Wear your tubigrip for compression. Elevate your legs above the level of your heart and do ankle pumps and circles. Take 1/2 tab of Multi-vitamin twice a day, Vitamin D3 5000 international unit(s) daily and eat highprotein foods to help promote wound healing. If you have questions or concerns: Wednesday-Wednesday 8am-4:30pm, call the [facility] at [phone]. After 4:30pm, on weekends or holidays, call [facility] at [phone] and have the physician operator weapon locating radar paged. Please pick up worker your Juxta Lite Compression Garments at [employer] and bring them to your next [facility] appointment. Apply your lymphedema pumps to both of your legs at 40mm/Hg for 30-60 minutes 2- 3 times a day ONCE OBTAINED. AN ORDER FOR THE PUMPS WILL BE INITIATED TODAY AND YOU SHOULD HEAR FROM THE SUPPLIER REGARDING DELIVERY AND INSTRUCTIONS. documented in this encounterSalem [facility] Hospital08-[facility] Nurse Note* Ana Leslie RN - 04/27/2024 9:51 AM EDT WOUND ASSESSMENT COMPLETED BY LILIANA ALLEN LPN, CHT. Wrap on right slid down 2 inches. [facility]08-08-2024 Nurse Note* Sallie Estrella LPN - 04/20/2024 10:13 AM EDT DISCHARGE DRESSING APPLIED BY JYOTHI GAR RN PER PROVIDER ORDER [facility]08-08-2024 Nurse Note* Sallie Estrella LPN - 04/20/2024 10:13 AM EDT DISCHARGE DRESSING APPLIED BY JYOTHI GAR RN PER PROVIDER ORDER * Ana Leslie RN - 04/20/2024 9:24 AM EDT WOUND ASSESSMENT COMPLETED BY LILIANA ALLEN SLAG EXPANDER CHT. Pt missed his appointment last week, states his sister showed up too late to get him to the appointment. Had wraps on for about 8 days and then ptremoved them himself. Pt applied silvadene cream to open areas. Put black stocking over silvadene but did not wear any compression. No nurses from home care have been out to see pt. documented in this encounterSalem [facility] Hospital08-[facility]-2024 [facility] 04-20-2024 History of Present illness Narrative* Gilmer Olivia, DPM - 04/20/2024 10:01 AM EDT Images from the original note were not included. Wound Care Progress Note Subjective: Patient presents with: Wound Check HISTORY of PRESENT ILLNESS HPI Roz Baker is a 73 year old male who presents today for wound/ulcer evaluation. History of Wound Context: Venous ulcer Wound/Ulcer Pain Timing/Severity: AMB ROOMING INTAKE FLOWSHEET DATA Risk Screening Do you have concerns about personal safety or safety in the home?: No Pain Pain Level: 8 Pain Location: Leg-Right (and left leg) Description: Aching, Throbbing, Burning Frequency: Continuous Intervention/Comfort measure: Medication Patient seen today for bilateral lower extremity ulcerations. Unfortunately patient was not able tomake his appointment last week because he did not have a ride. He eventually remove the wraps on Wednesday. Patient was to call home health to have assistance with dressings. He states he tried to usethe Silvadene cream and cover with a dry gauze bandage however no compressions been applied. He hasbeen undergoing dialysis and had to have a new access point placed because the other 1 was not working. He states that with dialysis he feels well. PAST MEDICAL HISTORY 10/25/2022: Acute duodenal ulcer with hemorrhage No date: Acute respiratory failure with hypoxia (HCC) 2022: Atrial fibrillation (HCC) Comment: eliquis stopped with large duodenal ulcer No date: CHF exacerbation (HCC) No date: Chronic kidney disease Comment: Electronic Maintenance Supervisor Dr. Julianne Dumas No date: Chronic kidney disease on chronic dialysis (HCC) Comment: Dialysis on Mon, Tu, Fri. No date: COVID-19 No date: Diabetes mellitus Type II (HCC) No date: Difficulty in walking, not elsewhere classified No date: Essential hypertension 10/26/2022: History of echocardiogram Comment: LVEF is normal, estimated at 55% to 60%. There is mild mitral and tricuspid regurgitation. 05/18/2023: History of echocardiogram Comment: EF is 50%. LVH is noted. Moderate MR. ANASTACIA is 2.8. Trace GA and AR. Mild to Moderate TR. No date: Iron deficiency anemia No date: group home current use of insulin (HCC) No date: Morbid obesity (HCC) No date: Muscle weakness (generalized) No date: Need for assistance with personal care No date: Nonalcoholic steatohepatitis (PEREZ) No date: Unsteadiness on feet PAST SURGICAL HISTORY No date: APPENDECTOMY No date: LEG SURGERY HX Social History Tobacco Use Smoking status: Former Packs/day: 1.00 Years: 30.00 Additional pack years: 0.00 Total pack years: 30.00 Types: Cigarettes Quit date: 1995 Years since quittin.6 Smokeless tobacco: Never Vaping Use Vaping Use: Never used Substance Use Topics Alcohol use: Not Currently Drug use: Not Currently Frequency: 2.0 times per week Types: Marijuana Comment: Previous Occasional use of Marijuana. ALLERGIES Allergen Reactions Codeine Unknown Current Outpatient Medications on File Prior to Visit Medication Sig COMPRESSION SLEEVE once daily. predniSONE (DELTASONE) 20 mg tablet Take 20 mg by mouth once daily. empagliflozin (JARDIANCE) 10 mg tablet Take 1 tablet by mouth daily with breakfast. apixaban (ELIQUIS) 5 mg tab(s) Take 1 tablet by mouth two times a day. b complex, c, folic acid 1 mg renal vitamins (RENAL CAPS) 1 mg capsule Take 1 capsule by mouth oncedaily. hydrALAZINE (APRESOLINE) 50 mg tablet Take 1.5 tablets by mouth every 8 hours. isosorbide mononitrate ER (IMDUR) 30 mg 24 hr tablet Take 2 tablets by mouth once daily. SODIUM BICARBONATE, BULK, ORAL Take 650 mg by mouth two times a day. famotidine (PEPCID) 40 mg tablet Take 1 tablet by mouth every 12 hours. omeprazole (PRILOSEC) 20 mg capsule Take 20 mg by mouth once daily. silver sulfADIAZINE (SILVADENE) 1 % cream Apply 1 application to affected area once daily. ipratropium-albuterol (DUONEB) 0.5 mg-3 mg(2.5 mg base)/3 mL nebu Inhale 3 mL as instructed every 4hours as needed for wheezing/shortness of breath. ondansetron (ZOFRAN) 4 mg tablet Take 4 mg by mouth every 8 hours as needed for nausea/vomiting. allopurinol (ZYLOPRIM) 100 mg tablet Take 100 mg by mouth once daily. bisacodyl (DULCOLAX) 10 mg supp 10 mg by RECTAL route once daily as needed for constipation. metoprolol succinate ER (TOPROL XL) 100 mg Take 1 tablet by mouth once daily. Patient should start on December 21, 2023. furosemide (LASIX) 40 mg tablet Take 1 tablet by mouth once daily. cholecalciferol (VITAMIN D-3) 5,000 unit tab Take 5,000 Units by mouth once daily. Zinc Sulfate 50 mg zinc (220 mg) tab Take 50 mg by mouth once daily. glucagon 1 mg/mL injection Inject 1 mg subcutaneously as needed. cyclobenzaprine (FLEXERIL) 5 mg tablet Take 5 mg by mouth three times a day as needed for muscle spasm. acetaminophen 650 mg CR tablet Take 650 mg by mouth every 8 hours as needed for pain. insulin lispro (HUMALOG KWIKPEN) 100 unit/mL pen Inject 1 Units subcutaneously two times a day. Sliding scale: BS 151-200= 1 UNITS BS 201-250= 2 UNITS BS 251-300= 3 UNITS BS 301-350= 4 UNITS BS 351-999= 5 UNITS calcitriol (ROCALTROL) 0.25 mcg capsule Take 1 tablet by mouth every afternoon. No current facility-administered medications on file prior to visit. Objective: BP 120/69 Pulse 83 Temp 36.6 C (97.9 F) Resp 16 Last 3 Encounter Wt Readings: Date: Wt: 03/31/2024 97.8 kg (215 lb 9.8 oz) 03/23/2024 96.6 kg (213 lb) 03/05/2024 102.6 kg (226 lb 3.1 oz) Physical Exam Peripheral Vascular R Calf Circumference (cm): 42.6 cm L Calf Circumference (cm): 38.3 cm R Ankle Measurement (cm): 33.3 cm L Ankle Measurement (cm): 30.1 cm Lower Extremity Circulation Pulses Palpation - LEFT dorsal pedis pulse: +1 Pulses Palpation - RIGHT dorsal pedis pulse: +1 Pulses Palpation - LEFT dorsal pedis pulse: +1 Pulses Palpation - RIGHT dorsal pedis pulse: +1 Neuro: No clonus. Light touch sensation present to the lower extremities. Negative Babinski exam. Derm: Skin Condition/Temp: Swollen, Warm (ble). Patient has multiple new ulcerations to the lower extremities bilaterally. See pictures as well as descriptions and measurements of ulcerations below. Hyperpigmentation present. The right leg has increased edema compared to the left. There were also several intact small bulla present to the lower extremities bilaterally. Ortho: There is some pain with palpation of the ulcerations no crepitation noted. Patient has weakness of the lower extremities with muscle strength of 4/5 for all groups. LABS: No results found for: CRP No results found for: WSR INR Date Value Ref Range Status 11/05/2023 1.4 (H) 0.9 - 1.3 Final Comment: Vitamin K Antagonist (VKA) Therapeutic Range: INR 2 to 3 (Target INR of 2.5) Note: For patients treated with VKA drugs, such as warfarin, the [place] [employer] 2012 Guideline recommends a therapeutic INR range of 2 to 3 (target INR of 2.5). This recommendation includes high-risk patients with antiphospholipid syndrome with previous arterial or venous thromboembolism, current-generation mechanical or bioprosthetic aortic heart valve replacement. Note: Patients with mechanical aortic valve replacement and additional risk factors for thromboembolic events (atrial fibrillation, previous thromboembolism, LV dysfunction, hypercoagulable conditions) or an older generation mechanical AVR (i.e., ball in-Cage) or any mechanical MVR should have a INR therapeutic range of 2.5 to 3.5 (target INR of 3). Ashly EVANS, et al. Chest 2012, 141:7S-47S Liss RA, et al. [facility] 2017, 70: 252-289 APTT Date Value Ref Range Status 11/05/2023 26.4 25.1 - 36.5 sec Final Comment: [facility] Heparin Therapeutic Range: 54-90 seconds Hemoglobin A1C (%) Date Value 04/24/2023 6.9 01/28/2023 7.2 12/29/2022 8.0 10/30/2022 7.3 05/01/2022 6.8 MICROBIOLOGY: Positive Micro-30 Days No results found for the last 720 hours. IMAGING: Last XR Foot - Impression Only No resulted procedures found. Last XR Ankle - Impression Only XR ANKLE GENERAL 3V AP/LAT/OBL LEFT Resulted: 02/03/2016 7:04 PM (Final result) Impression: 1. Status post ORIF of the distal fibular fracture. No new fractures identified. 2. Mild degenerative changes at the ankle joint. 3. Mild soft tissue swelling of the ankle without any underlying acute osseous abnormality. 4. Calcaneal enthesopathy ... Last MRI Foot - Impression Only No resulted procedures found. Last MRI Ankle - Impression Only No resulted procedures found. Wound 12/06/23 141 Venous Ulcer Pretibial Right;Lower (Active) Properties Placement Date 12/06/23 Placement Time 1413 Location Pretibial Wound Approximate Age at First Assessment (Weeks) 52 weeks Primary Wound Type Venous Ulcer Wound Location Orientation Right;Lower Wound Description (Comments) [facility] G2 Assessments 04/20/2024 9:00 AM Wound Image Lizzeth-Wound Assessment Hyperpigmented;Dry;Peeling;Purple (blisters) Wound Length (cm) 29 cm (cluster) Wound Width (cm) 34.8 cm (cluster) Wound Surface Area (cm^2) 1009.2 cm^2 Wound Depth (cm) 0.1 cm Wound Volume (cm^3) 100.92 cm^3 Wound Healing % 33 Drainage Description Serosanguineous Drainage Amount Large (on black stockings) Odor None Wound Bed Granulation (%) 50 % Wound Bed Slough (%) 50 % Non-staged Wound Description Full thickness (grade 2) Wound 12/06/23 1415 Venous Ulcer Pretibial Left;Lower (Active) Properties Placement Date 12/06/23 Placement Time 1414 Location Pretibial Wound Approximate Age at First Assessment (Weeks) 52 weeks Primary Wound Type Venous Ulcer Wound Location Orientation Left;Lower Wound Description (Comments) [facility] G2 Assessments 04/20/2024 9:00 AM Wound Image Lizzeth-Wound Assessment Dry;Hyperpigmented;Peeling Wound Length (cm) 24.4 cm (cluster) Wound Width (cm) 22.7 cm Wound Surface Area (cm^2) 553.88 cm^2 Wound Depth (cm) 0.1 cm Wound Volume (cm^3) 55.388 cm^3 Wound Healing % 55 Drainage Description Serosanguineous Drainage Amount Large (on black stocking) Odor None Wound Bed Granulation (%) 50 % Wound Bed Slough (%) 50 % (scabbing, wet and dry) Non-staged Wound Description Full thickness (grade 2) Procedures: No debridement Assessment and Plan: Chronic venous hypertension (idiopathic) with ulcer of bilateral lower extremity (code) ([facility]) (primary encounter diagnosis) Non-pressure chronic ulcer of other part of left lower leg with fat layer exposed ([facility]) Non-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 ([facility]) Secondary lymphedema Type 2 diabetes mellitus with other skin ulcer (code) ([facility]) Diabetic polyneuropathy associated with type 2 diabetes mellitus ([facility]) historical site guide current use of insulin ([facility]) Esrd (end stage renal disease) on dialysis ([facility]) Physician Plan: Wound orders placed during this encounter No debridement performed today. Will apply Triad paste to the lower extremities bilaterally and then apply a Coflex TLC wrap to the lower extremities bilaterally. Also use Dermax foam made nonadhesive's as needed to the lower extremities. Patient instructed keep the dressings dry clean intact. Elevate legs frequently performing ankle pumps and circles multiple times daily. Avoid keep legs independent position. Patient can weight-bear as tolerated. Continue with dietary recommendations previously ordered. Call if there is any nausea, vomiting, fever, chills or other signs of infection. Patient is going to stop with the drug [place] to get the juxta lite compression garments. He states he was unable to pick them up. He will bring these to the next appointment and we can apply the juxta lites if he is healed Treatment Note please see attached After Visit Summary Thank you for choosing [facility] and allowing us to help heal your wounds. SIGNATURE: Gilmer Olivia DPM PATIENT NAME: Roz Baker DATE: April 20, 2024 TIME: 10:01 AM [facility] Instructions* Patient Instructions* Oksana Obando RN - 04/20/2024 9:44 AM EDT RIGHT LOWER EXTREMITY AND LEFT LOWER EXTREMITY ULCERS: Shower with dressing protected/covered Cleanse ulcers with normal saline Apply triad paste to BLE Apply non adhesive foam (DURAMAX) as needed Apply 2 layer compression bandage system May pad ankle/achilles with felt/foam or cast padding as needed Change weekly at [facility] and as needed If problems with compression and you are instructed, remove compression wrap, cleanse the ulcer with saline, apply silvadene, cover with dry dressing and change dressing daily and as needed. Wear your tubigrip for compression. Elevate your legs above the level of your heart and do ankle pumps and circles. Take 1/2 tab of Multi-vitamin twice a day, Vitamin D3 5000 international unit(s) daily and eat highprotein foods to help promote wound healing. If you have questions or concerns: Wednesday-Wednesday 8am-4:30pm, call the [facility] at [phone]. After 4:30pm, on weekends or holidays, call [facility] at [phone] and have the physician operator weapon locating radar paged. Please pick up worker your Juxta Lite Compression Garments at [employer]. documented in [facility] Nurse Note* Ana Leslie, CARMEN - 04/20/2024 9:24 AM EDT WOUND ASSESSMENT COMPLETED BY LILIANA ALLEN SLAG EXPANDER T. Pt missed his appointment last week, states his sister showed up too late to get him to the appointment. Had wraps on for about 8 days and then ptremoved them himself. Pt applied silvadene cream to open areas. Put black stocking over silvadene but did not wear any compression. No nurses from home care have been out to see pt. [facility]08-01-2024 Hospital Discharge instructions Patient Education 04/13/2024 14:48:00 1- SDS General Discharge Guidelines (05/28/2023)(CUSTOM) [facility] SAME DAY SURGERY DISCHARGE INSTRUCTIONS PLEASE FOLLOW THE INSTRUCTIONS BELOW MARKED WITH AN X: __X_Regular Diet: Start with clear liquids, then soup and crackers. Gradually add other foods unless otherwise instructed by your surgeon __X_Drink extra fluids ACTIVTY: __X_Since you have had anesthetic, it would be advisable not to drive, drink alcohol, or make majordecisions over the next 24 hours. You may require more rest tonight and tomorrow __X_Do not drive vehicle while taking narcotics and as directed by your Surgeon ____Restrict activity as follows: ____Do not have sexual intercourse. Nothing in the vagina-No tampons or DouchingX ____No heavy lifting, pushing, or straining ____Elevate operative limb ____Ice as directed __X_Follow all written and verbal instructions given to you by your Doctor ____Other: BATHING/SHOWERING ____Sponge bathe until office visit. ____Sitting in tub of warm water may relieve discomfort ____May tub bathe ____May shower in 24-48 hours with clean linen unless otherwise instructed by your Doctor DRESSING: _X___Keep operative area clean and dry _X___Check the operative area for signs of bleeding. Apply pressure to the bleeding site if necessary. ____Change drip pad as needed ____Wear scrotal support for comfort WATCH FOR SIGNS OF INFECTION: (Usually appears 36-48 hours after surgery) Increased temperature (101 degrees Fahrenheit or higher) Redness or swelling Increased pain Foul odor or drainage If you have any questions, please call your doctor at the number listed on your follow-up instructions. [facility] 08-01-2024 Note* Leti Santoyo RN: SIGN Leti Santoyo RN: SIGN, Leti Bliss RN: AUTHOR, AUTHOR, PERFORM Event Display: IR Procedure Record Authored Date: IR Procedure Record Summary Primary Physician: NORA DUTTA PA-C Finalized Date/Time: 04/13/24 14:26:18 Pt. Name: ROZ BAKER/Sex: 1950 Male Med Rec #: [id number] Physician: Financial #: [id number] Pt. Type: S Room/Bed: 0100/A Admit/Disch: 04/13/24 10:54:50 - Institution: Allergies identified in patient's electronic medical record at time of printing on 04/13/24 Entry 1 Substance codeine Reaction Type Allergy Last Modified By: Snehal Larsen LPN 11/24/23 17:41:16 Case Attendance- IR Entry 1 Entry 2 Entry 3 Case Attendee NORA DUTTA PA-C, RN Corey Metzger, Erin N RN Role Performed Primary Surgeon Procedure Nurse Procedure Nurse Details Time In 04/13/24 13:36:00 04/13/24 13:36:00 04/13/24 13:36:00 Time Out 04/13/24 14:15:00 04/13/24 14:15:00 04/13/24 14:15:00 Procedure/Preference IR Tunneled HD Exchange IR Tunneled HD Exchange IR Tunneled HD Exchange Card (SN) (SN) (SN) Last Modified By: Leti Santoyo RN, Erin N RN Metzger, Erin N RN 04/13/24 14:05:49 04/13/24 14:05:49 04/13/24 14:05:49 Entry 4 Case Attendee Kaycee Horner Role Performed Scrub Technologist Details Time In 04/13/24 13:36:00 Time Out 04/13/24 14:15:00 Procedure/Preference IR Tunneled HD Exchange Card (SN) Last Modified By: Leti Santoyo RN 04/13/24 14:05:49 Radiology Procedures- IR Entry 1 Procedure/Preference IR Tunneled HD Exchange Actual Procedure IR Tunneled HD Exchange Card (SN) Primary Procedure Yes Primary Surgeon NORA DUTTA PA-C Anesthesia/Sedation Local Type Additional Procedure Times Start 04/13/24 13:56:00 Stop 04/13/24 14:05:00 Specialty Service SN Radiology Procedure EBL 0 mL Last Modified By: Leti Santoyo RN 04/13/24 14:05:56 Radiology Procedure Details - IR Entry 1 Radiology Sedation Case Times Sedation Total Time 0 Radiology - Fluid/Drainage Radiology Contrast Contrast Used? No Radiology Flouroscopy Fluoroscopy Used? Yes Fluoro Dose (mGy) 12 Fluoro Time 0.7mins Radiology Local Local Used? Yes Local Type: lido 2% Local Dose 6ml Radiology Procedure Site Site/Location right chest Site Condition No complications Suture 2.0 Ethibond Suture Dressing Type Tagaderm Technologist Notes 27cm cuff to tip right IJ exchanged from 19cm placed at [place] 6 weeks ago Last Modified By: Kaycee Horner 04/13/24 14:26:16 General Case Data - IR Entry 1 Case Information Room IR 17 Case Level IR Level 2 Wound Class None Specialty SN Radiology Procedure ASA Class None Diagnosis Preop Diagnosis ESRD/high arterial Postop Same As Preop Yes pressures Postop Diagnosis ESRD/high arterial pressures Last Modified By: Leti Santoyo RN 04/13/24 13:57:13 Procedure Case Times- IR Entry 1 Patient In Procedure Patient In OR 04/13/24 13:36:00 Patient Out of OR 04/13/24 14:15:00 Procedure Start/Stop Procedure Start Time 04/13/24 13:56:00 Procedure Stop Time 04/13/24 14:05:00 Last Modified By: Leti Santoyo RN 04/13/24 14:05:46 Allergy Information- IR Entry 1 Allergies Reviewed? Yes Allergies Reviewed Patient With Last Modified By: Leti Santoyo RN 04/13/24 13:53:15 Radiology Protocols/Time Out- IR Entry 1 Preprocedure Clinician Verifies Correct patient ID When Clinically Confirmation of correct using name & date Indicated side(s) and site(s), or MRN, Accurate Correct diagnostic and procedure, complete radiology tests Informed Consent, H & P available, Required update immediately blood products, prior to procedure, if implants, devices applicable and/or special equipment available OR/Procedure Room/Bedside Time 04/13/24 13:56:00 Clinician Verifies Correct patient identity including EMR & records using name and date or medical record number, Accurate procedure consent form, Correct patient position, Necessary equipment is available, Anticipated non-routine events with surgical team (case duration, estimated blood loss, patient specific concerns)., Webb patient factors for recovery and management identified with surgical team. When Applicable Confirmation correct Team Members NORA DUTTA side and site marked, Present for Time Out PA-C, Bhumi, RN Simon, Relevant images and Leti Santoyo RN, results are properly Kaycee Horner labeled and appropriately displayed, Confirm/obtain preop antibiotic order., Alcohol based prep dry, Double verification of sterility indicators complete Instrument Sterility Team Members NORA DUTTA Verifying Sterility CARLY, Kaycee Horner Procedure IR Tunneled HD Exchange (SN) Last Modified By: Leti Santoyo RN 04/13/24 14:03:29 Skin Prep- IR Entry 1 Procedure IR Tunneled HD Exchange (SN) Skin Prep Prep Area Chest Side Right By Kaycee Horner Prep Agents Chloraprep Hair Removal Method N/A Last Modified By: Leti Santoyo RN 04/13/24 13:55:53 Patient Positioning- IR Entry 1 Procedure IR Tunneled HD Exchange Body Position OP Supine (SN) Feet Uncrossed? Yes Pressure Points Yes Checked Last Modified By: Leti Santoyo RN 04/13/24 13:56:08 Implants- IR Entry 1 Implant/Explant Implant Implant Description CATH HEMO-FLOW [id number] 5/BX [id number] Wasted? No Lot Number [id number] Sales Planning Manager medcomp Expiration Date 01/21/26 Implant Site right IJ Last Modified By: Leti Santoyo RN 04/13/24 13:59:03 Radiology Procedure Plan - IR Entry 1 Radiology - Nursing Care Plan Outcome Statement The patient Outcome Statement The patient receives demonstrates knowledge Cont. appropriate of the expected medication(s), safely responses to the administered during the operative/invasive perioperative/invasive procedure., The period., The patient is patient's value system, free from signs and lifestyle, ethnicity, symptoms of injury and culture are caused by extraneous considered, respected, objects (equipment, and incorporated in the instrumentation, perioperative plan of sponges, or sharps). care., The patient is free from signs and symptoms of infection., The patient is free from signs and symptoms of injury related to positioning. Radiology - Action Plan Action Plan - Patient demonstrates Outcome Statement knowledge of the expected reseponses to the invasive procedure, Patient's value system, lifestyle, ethnicity, and culture are considered, respected, and incorporated in the perioperative plan of care., Patient is free from signs and symptoms of infection., Patient is free from signs and symptoms of injury related to positioning. Outcomes Met? Yes Online Merchant Leti Santoyo RN Completing Procedure Plan Last Modified By: Leti Santoyo RN 04/13/24 13:56:53 Case Comments <None> Finalized By: Kaycee Horner Document Signatures Signed By: Leti Santoyo RN 04/13/24 14:10 Kaycee Horner 04/13/24 14:26 [facility] 08-01-2024 Summary of episode note Discharge Instructions Thank you for allowing [facility] to assist you with your healthcare needs. The following is importantdischarge information regarding your hospital visit. Your Care Team KAMRON LEPE MD Allergies codeine Unknown Medications Please ask your primary doctor or pharmacist before taking any other medication not listed, including over the counter drugs, herbal medications, vitamins and or supplements as they may interact withur home medications. What How Much When Instructions Last Dose Unchanged acetaminophen 650 Milligram by mouth Every 6 hours as needed for as needed for fever Unchanged ammonium lactate topical Topical Two (2) times a day Unchanged calcitriol (calcitriol 0.25 mcg oral capsule) 1 cap by mouth Every day Unchanged cyclobenzaprine (cyclobenzaprine 5 mg oral tablet) 1 tab(s) by mouth Three (3) times a day prn Unchanged diclofenac topical (diclofenac 1% topical gel) 1 application Topical Two (2) times a day as needed for Pain Unchanged docusate (Colace 100 mg oral capsule) 1 cap by mouth Two (2) times a day as needed for Constipation Unchanged ferrous sulfate (ferrous sulfate 325 mg (65 mg elemental iron) oral delayed release tablet) 1 tab(s) by mouth Once a day Unchanged furosemide (furosemide 40 mg oral tablet) 1 tab(s) by mouth Once a day Unchanged hydrALAZINE (hydrALAZINE 50 mg oral tablet) 1 tab(s) by mouth Three (3) times a day Unchanged insulin glargine (Lantus Solostar Pen 100 units/ mL 3 mL Pen) 15 unit(s) Subcutaneous Once a day Unchanged insulin lispro (HumaLOG) (HumaLOG KwikPen 100 units/ mL injectable PEN) 5 unit(s) Subcutaneous Two (2) times daily before meals Unchanged isosorbide mononitrate (isosorbide mononitrate 30 mg oral tablet, extended release) 1 tab(s) by mouth Once a day before a meal Unchanged magnesium hydroxide (Milk of Magnesia) 30 Milliliter by mouth Every day as needed for Constipation Unchanged metoprolol (metoprolol tartrate 25 mg oral tablet) 2 tab(s) by mouth Two (2) times a day Unchanged pantoprazole (pantoprazole 40 mg oral enteric coated tablet) 1 tab(s) by mouth Once a day Unchanged polyethylene glycol 3350 by mouth Once a day as needed for Constipation Unchanged potassium chloride (Potassium Chloride (Zmc-Xdhj-Uoq M20) 20 mEq oral tablet, extended release) 1 tab(s) by mouth Once a day Please take this list to your next doctor s visit. Bring all medications you take, including over the counter medications, herbals and other supplements with you to your doctor s visit. Patients and families are reminded to discard old lists and to update any records with all medication providers or retail pharmacies. Education Materials [facility] SAME DAY SURGERY DISCHARGE INSTRUCTIONS PLEASE FOLLOW THE INSTRUCTIONS BELOW MARKED WITH AN X: __X_Regular Diet: Start with clear liquids, then soup and crackers. Gradually add other foods unless otherwise instructed by your surgeon __X_Drink extra fluids ACTIVTY: __X_Since you have had anesthetic, it would be advisable not to drive, drink alcohol, or make majordecisions over the next 24 hours. You may require more rest tonight and tomorrow __X_Do not drive vehicle while taking narcotics and as directed by your Surgeon ____Restrict activity as follows: ____Do not have sexual intercourse. Nothing in the vagina-No tampons or DouchingX ____No heavy lifting, pushing, or straining ____Elevate operative limb ____Ice as directed __X_Follow all written and verbal instructions given to you by your Doctor ____Other: BATHING/SHOWERING ____Sponge bathe until office visit. ____Sitting in tub of warm water may relieve discomfort ____May tub bathe ____May shower in 24-48 hours with clean linen unless otherwise instructed by your Doctor DRESSING: _X___Keep operative area clean and dry _X___Check the operative area for signs of bleeding. Apply pressure to the bleeding site if necessary. ____Change drip pad as needed ____Wear scrotal support for comfort WATCH FOR SIGNS OF INFECTION: (Usually appears 36-48 hours after surgery) Increased temperature (101 degrees Fahrenheit or higher) Redness or swelling Increased pain Foul odor or drainage If you have any questions, please call your doctor at the number listed on your follow-up instructions. Additional Information VACCINATE! IT SAVES LIVES! Members of the community who have not yet received the COVID-19 vaccine and would like to receive it can visit one of [facility] vaccine clinics. There are many vaccine clinic locations within the [facility]. For locations and available times, please visit [email or web address].[place].gov/. It is important to note that some COVID mobile vaccine clinics are held outdoors and may be canceled in rainy or stormy conditions. To learn more about pediatric vaccinations (ages 5-11), we invite you to visit the [facility] webpage. https://www.Inflections.org/pages/2302-Doqdd-Ypojymxftmj-Cryihrpdqv-Zsejo-Stx stions.htmlTo learn more about the COVID-19 vaccine, we invite you to visit the CDC website for a list of frequently asked questions.https://www.cdc.gov/coronavirus/2019-ncov/vaccines/faq.html [employer] Patient Portal Access Instructions: Stay connected with your healthcare team and access your personal medical information anytime with the [employer] Patient Portal. Please follow the directions below to create your [employer] account: 1.Access the email account you provided upon registration to the hospital/physician office.2.Look for an invitation email from [facility].3.Open the email and access the invitation link: AcceptInvitation to [employer].4.Fill in the required viramontes to create your account. To access your account, visit [email or web address]. Click the blue button labeled Access Patient Portal and then log in with the username and password that you created in the steps above. You will be able to view your test results, lab results, a summary of your visits, upcoming appointments and more. There is also a convenient messaging option where you can send secure messages to your p rovider. In addition, you will have the ability to download any documents or summaries to your computer and/or send the information securely to a physician. Remember that your healthcare information is confidential, so carefully consider who you will allowto register on the [facility] Patient Portal for access to your information. You can also access the [facility] Patient Portal on the [facility] keenan. Simply click on Patient Portal and then log into your account. If you would like to receive a full copy of your medical records, please contact the [facility] Medical Records Department by calling [phone], Wednesday through Wednesday between 8 a.m. and 4:30 p.m. HOW TO SAFELY DISPOSE OF PRESCRIPTION MEDICATIONS Please use one of the following methods to safely dispose of your unused medications. 1.Use a drug disposal kit: the drug disposal pouch allows you to safely discard your old and unuseddrugs. Ask your nurse to give you one when you are discharged.2.Visit a local take-back location: Many local pharmacies and police departments have programs that collect old and unwanted prescriptiondrugs. Call your local pharmacy or go to http://Monitor110.Cempra/9A1Bm9f to find one close to you.3.Make use of household items: Use cat litter or old coffee grounds to dispose medications if other options arenot available. Mix your drugs with these household products, seal them in an airtight container andthrow it into the garbage. Call [facility]: [phone] to be sure your drugs can be disposed of in this way. Some medicines may require a different approach.4.Never flush your medications down the toilet. IF YOU HAVE BEEN PRESCRIBED AN OPIOID FOR PAIN If you have been prescribed an opioid (such as hydrocodone, oxycodone or morphine), it is critical to understand the possible side effects and risks of opioid pain medications. Even when taken as directed, opioids can have several side effects including: Tolerance, meaning you might need to take more of a medication for the same pain relief. Nausea, vomiting and/or constipation. Sleepiness, dizziness, dry mouth, confusion, depression or itching. Physical dependence, meaning you have withdrawal symptoms when a medication is stopped, can develop within a few days. KNOW YOUR RESPONSIBILITIES It is important to know exactly how much and how often to take the opioid pain medications you are prescribed. Never take opioids in higher amounts or more often than prescribed. Do not combine opioids with alcohol or other drugs that cause drowsiness, such as benzodiazepines, also known as benzos, including diazepam and alprazolam, muscle relaxants or sleep aids. Never sell or share prescription opioids. This is illegal. Store opioids in a secure place and out of reach of others (including children, family, friends and visitors). The last page of this document has been signed and retained as a CHART COPY. Signatures Patient Education Materials 1- [facility] General Discharge Guidelines (05/28/2023)(CUSTOM) Medication Leaflets My discharge plan and instructions have been reviewed and explained to me and I,ROZ BAKER understand my current condition and have read and understand these discharge instructions. I have received a written copy of the plan/instructions. If I have questions, I am aware that I should contact my doc tor. 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 Name: ROZ BAKER./Sex: 1950 Male Med Rec #: [id number] Physician: Financial #: [id number] Pt. Type: S Room/Bed: [facility]/A Admit/Disch: 04/13/24 10:54:50 - Institution: Allergies identified in patient's electronic medical record at time of printing on 04/13/24 Entry 1 Substance codeine Reaction Type Allergy Last Modified By: Snehal Larsen LPN 11/24/23 17:41:16 Case Attendance- IR Entry 1 Entry 2 Entry 3 Case Attendee NORA DUTTA PA-C, RN Corey Metzger, Erin N RN Role Performed Primary Surgeon Procedure Nurse Procedure Nurse Details Time In 04/13/24 13:36:00 04/13/24 13:36:00 04/13/24 13:36:00 Time Out 04/13/24 14:15:00 04/13/24 14:15:00 04/13/24 14:15:00 Procedure/Preference IR Tunneled HD Exchange IR Tunneled HD Exchange IR Tunneled HD Exchange Card (SN) (SN) (SN) Last Modified By: Leti Santoyo RN, Erin N RN Metzger, Erin N RN 04/13/24 14:05:49 04/13/24 14:05:49 04/13/24 14:05:49 Entry 4 Case Attendee Kaycee Horner Role Performed Scrub Technologist Details Time In 04/13/24 13:36:00 Time Out 04/13/24 14:15:00 Procedure/Preference IR Tunneled HD Exchange Card (SN) Last Modified By: Leti Santoyo RN 04/13/24 14:05:49 Radiology Procedures- IR Entry 1 Procedure/Preference IR Tunneled HD Exchange Actual Procedure IR Tunneled HD Exchange Card (SN) Primary Procedure Yes Primary Surgeon NORA DUTTA PA-C Anesthesia/Sedation Local Type Additional Procedure Times Start 04/13/24 13:56:00 Stop 04/13/24 14:05:00 Specialty Service SN Radiology Procedure EBL 0 mL Last Modified By: Leti Santoyo RN 04/13/24 14:05:56 Radiology Procedure Details - IR Entry 1 Radiology Sedation Case Times Sedation Total Time 0 Radiology - Fluid/Drainage Radiology Contrast Contrast Used? No Radiology Flouroscopy Fluoroscopy Used? Yes Fluoro Dose (mGy) 12 Fluoro Time 0.7mins Radiology Local Local Used? Yes Local Type: lido 2% Local Dose 6ml Radiology Procedure Site Site/Location right chest Site Condition No complications Suture 2.0 Ethibond Suture Dressing Type Tagaderm Technologist Notes 27cm cuff to tip right IJ exchanged from 19cm placed at [facility] 6 weeks ago Last Modified By: Kaycee Horner 04/13/24 14:26:16 General Case Data - IR Entry 1 Case Information Room AH IR 17 Case Level IR Level 2 Wound Class None Specialty SN Radiology Procedure ASA Class None Diagnosis Preop Diagnosis ESRD/high arterial Postop Same As Preop Yes pressures Postop Diagnosis ESRD/high arterial pressures Last Modified By: Leti Santoyo RN 04/13/24 13:57:13 Procedure Case Times- IR Entry 1 Patient In Procedure Patient In OR 04/13/24 13:36:00 Patient Out of OR 04/13/24 14:15:00 Procedure Start/Stop Procedure Start Time 04/13/24 13:56:00 Procedure Stop Time 04/13/24 14:05:00 Last Modified By: Leti Santoyo RN 04/13/24 14:05:46 Allergy Information- IR Entry 1 Allergies Reviewed? Yes Allergies Reviewed Patient With Last Modified By: Leti Santoyo RN 04/13/24 13:53:15 Radiology Protocols/Time Out- IR Entry 1 Preprocedure Clinician Verifies Correct patient ID When Clinically Confirmation of correct using name & date Indicated side(s) and site(s), or MRN, Accurate Correct diagnostic and procedure, complete radiology tests Informed Consent, H & P available, Required update immediately blood products, prior to procedure, if implants, devices applicable and/or special equipment available OR/Procedure Room/Bedside Time 04/13/24 13:56:00 Clinician Verifies Correct patient identity including EMR & records using name and date or medical record number, Accurate procedure consent form, Correct patient position, Necessary equipment is available, Anticipated non-routine events with surgical team (case duration, estimated blood loss, patient specific concerns)., Webb patient factors for recovery and management identified with surgical team. When Applicable Confirmation correct Team Members NORA DUTTA side and site marked, Present for Time Out Bhumi CARROLL RN Corey, Relevant images and Leti Santoyo RN, results are properly Kaycee Horner labeled and appropriately displayed, Confirm/obtain preop antibiotic order., Alcohol based prep dry, Double verification of sterility indicators complete Instrument Sterility Team Members NORA DUTTA Verifying Sterility Evens CARROLL Jacque M. Procedure IR Tunneled HD Exchange (SN) Last Modified By: Leti Santoyo RN 04/13/24 14:03:29 Skin Prep- IR Entry 1 Procedure IR Tunneled HD Exchange (SN) Skin Prep Prep Area Chest Side Right By Kaycee Horner Prep Agents Chloraprep Hair Removal Method N/A Last Modified By: Leti Santoyo RN 04/13/24 13:55:53 Patient Positioning- IR Entry 1 Procedure IR Tunneled HD Exchange Body Position OP Supine (SN) Feet Uncrossed? Yes Pressure Points Yes Checked Last Modified By: Leti Santoyo RN 04/13/24 13:56:08 Implants- IR Entry 1 Implant/Explant Implant Implant Description CATH HEMO-FLOW [id number]/BX [id number] Wasted? No Lot Number [id number] Sales Planning Manager medcomp Expiration Date 01/21/26 Implant Site right IJ Last Modified By: Leti Santoyo RN 04/13/24 13:59:03 Radiology Procedure Plan - IR Entry 1 Radiology - Nursing Care Plan Outcome Statement The patient Outcome Statement The patient receives demonstrates knowledge Cont. appropriate of the expected medication(s), safely responses to the administered during the operative/invasive perioperative/invasive procedure., The period., The patient is patient's value system, free from signs and lifestyle, ethnicity, symptoms of injury and culture are caused by extraneous considered, respected, objects (equipment, and incorporated in the instrumentation, perioperative plan of sponges, or sharps). care., The patient is free from signs and symptoms of infection., The patient is free from signs and symptoms of injury related to positioning. Radiology - Action Plan Action Plan - Patient demonstrates Outcome Statement knowledge of the expected reseponses to the invasive procedure, Patient's value system, lifestyle, ethnicity, and culture are considered, respected, and incorporated in the perioperative plan of care., Patient is free from signs and symptoms of infection., Patient is free from signs and symptoms of injury related to positioning. Outcomes Met? Yes Online Merchant Leti Santoyo RN Completing Procedure Plan Last Modified By: Leti Santoyo RN 04/13/24 13:56:53 Case Comments Finalized By: Kaycee Horner Document Signatures Signed By: Leti Santoyo RN 04/13/24 14:10 Kaycee Horner 04/13/24 14:26 [id number] ORIGINAL EXAMINATION: TUNNELED CATHETER EXCHANGE WITH FLUOROSCOPY:04/13/2024 2:22 pm HISTORY: ORDERING SYSTEM PROVIDED HISTORY: Reason for Exam: ESRD/ high arterial pressures COMPARISON:[] EXISTING ACCESS SITE: Right internal jugular vein ANESTHESIA: Local MATERIALS: 27 cm cuff to tip; 14.5 Fr x 32 cm Medcomp Hemoflow dialysis catheter 2-0 prolene suture 0.035 Amplatz wire FLUOROSCOPY: 0.7 minutes Total Air Kerma Dose: 12 mGy. PROCEDURE: The procedure, risks, limitations, and alternatives were discussed. All questions were answered. Written informed consent obtained. Accompanying paperwork was verified for accuracy. Directed history and physical exam performed prior to the procedure. Medication reconciliation was performed by nursing personnel. Procedure was performed using a cap, sterile gown, sterile gloves, a large sterile sheet, hand hygiene and hospital-approved cutaneous antisepsis. The patient was positioned supine on the angiographic table and prepped and draped in usual sterile fashion. A critical pause was performed with assisting personnel just prior to the procedure with the patient's identity confirmed using 2 identifiers, confirming site and side. A wire was placed through the existing catheter into the IVC. After administration of lidocaine, the cuff was freed up with blunt dissection. The old catheter was exchanged for a new catheter over the wire. The cuff is located adjacent to the catheter site in the upper chest to facilitate easier removal in the future. Both lumens aspirate and flush very quickly. Both lumens were flushed with saline. Sterile caps attached. Fluoroscopy demonstrates the catheter tip in the upper right atrium. A documentation fluoroscopic image obtained. The catheter was fixed to the skin with suture. A sterile dressing was applied. COMPLICATIONS: None. EBL: 10 mL PATIENT CONDITION: Stable, unchanged. None IMPRESSION: 1. Successful uncomplicated exchange of a tunneled hemodialysis catheter with the tip in the upper right atrium. The procedure was performed by Nora Dutta, Physician Ladle Liner Helper. I concur with the contents of the report. Interpreted by: Nelli Bustillos MD Preliminary Report By: Nora Dutta PA-C Electronically signed By Nelli Bustillos MD Dictated Date: 04/13/2024 3:37:31 PM Prelim Date: 04/13/2024 3:38:51 PM Sign Date: 04/13/2024 9:52:39 PM Ordering Provider: [facility]08-01-2024 Evaluation + Plan noteExtracted from: Title:IR Pre-Procedure H&P Author:SLIM HARDY PA-C Date:04/13/24 Interventional Radiology Focused Preprocedure History/Physical Reason for Visit ESRD/ high arterial pressures History of Presenting Illness/Planned IR Procedure Patient presenting with history of A-fib, ESRD, here for tunneled HD catheter exchange. Patient is back on [facility] as he has yet to have Watchman device placed. Current catheter not functioning properly. Allergies (1) ActiveSeverityReaction codeineUnknown Home Medications (17) Active acetaminophen 650 mg = 2 tab(s), PRN, Oral, q6hr ammonium lactate topical , Topical, BID calcitriol 0.25 mcg oral capsule 0.25 mcg = 1 cap(s), Oral, Daily Colace 100 mg oral capsule 100 mg = 1 cap(s), PRN, Oral, BID cyclobenzaprine 5 mg oral tablet 5 mg = 1 tab(s), Oral, TID diclofenac 1% topical gel 1 keenan, PRN, Topical, BID ferrous sulfate 325 mg (65 mg elemental iron) oral delayed release tablet 325 mg = 1 tab(s), Oral, qDay furosemide 40 mg oral tablet 40 mg = 1 tab(s), Oral, qDay HumaLOG KwikPen 100 units/mL injectable PEN 5 unit(s), Subcutaneous, BIDAC hydrALAZINE 50 mg oral tablet 50 mg = 1 tab(s), Oral, TID isosorbide mononitrate 30 mg oral tablet, extended release 30 mg = 1 tab(s), Oral, qDayAC Lantus Solostar Pen 100 units/mL 3 mL Pen 15 unit(s), Subcutaneous, qDay metoprolol tartrate 25 mg oral tablet 50 mg = 2 tab(s), Oral, BID Milk of Magnesia 30 mL, PRN, Oral, Daily pantoprazole 40 mg oral enteric coated tablet 40 mg = 1 tab(s), Oral, qDay polyethylene glycol 3350 , PRN, Oral, qDay Potassium Chloride (Vmg-Zvdq-Ynu M20) 20 mEq oral tablet, extended release 20 mEq = 1 tab(s), Oral, qDay Problem List/Past Medical History (HFpEF) heart failure with preserved ejection fraction CAESAR (acute kidney injury) Acute kidney injury superimposed on chronic kidney disease Anemia Anemia in chronic kidney disease (CKD) Atrial fibrillation BMI 39.0-39.9,adult CHF, acute on chronic CRF (chronic renal failure) Cellulitis DU (duodenal ulcer) Debility HTN (hypertension) Hyperlipidemia Morbid obesity Septic joint of left knee joint Type 1 diabetes Surgical History Appendectomy Family History No family history recorded. Social History Alcohol Details: Use: Past. Home/Environment Details: Living situation: Home with assistance. Domestic Concerns: None. Lives In: Apartment, Single level home. Current Home Treatments Wound care. Substance Abuse Details: Type: Marijuana. Tobacco Details: Nicotine Use: Never (less than 100 in lifetime), Former smoker, quit more than 30 days ago. Physical Exam Vitals: Qnzfaxayptt09.3 (11:15) Systolic Blood Cimndalw273 (11:15) Diastolic Blood Oujribzu38 (11:15) Pulse69 (11:15) KbZ562 (11:15) Respiratory RateNo result General: Alert, cooperative. RIGHT Tunneled HD catheter visualized, dressing intact, clean, dry, no signs of erythema, swelling, irritation The remainder of the physical exam is noncontributory. Labs Anticoagulation Labs No qualifying data available. No qualifying data available. Assessment/Treatment Plan Image guided tunneled HD catheter exchange Post Procedure Discharge Plan Patient to be discharged home. Slim Hardy PA-C Interventional Radiology Pager: [phone] IR dept: x [phone] [facility] 08-01-2024 History and physical note Interventional Radiology Focused Preprocedure History/Physical Reason for Visit ESRD/ high arterial pressures History of Presenting Illness/Planned IR Procedure Patient presenting with history of A-fib, ESRD, here for tunneled HD catheter exchange. Patient is back on Eliquis as he has yet to have Watchman device placed. Current catheter not functioning properly. Allergies (1) ActiveSeverityReaction codeineUnknown Home Medications (17) Active acetaminophen 650 mg = 2 tab(s), PRN, Oral, q6hr ammonium lactate topical , Topical, BID calcitriol 0.25 mcg oral capsule 0.25 mcg = 1 cap(s), Oral, Daily Colace 100 mg oral capsule 100 mg = 1 cap(s), PRN, Oral, BID cyclobenzaprine 5 mg oral tablet 5 mg = 1 tab(s), Oral, TID diclofenac 1% topical gel 1 keenan, PRN, Topical, BID ferrous sulfate 325 mg (65 mg elemental iron) oral delayed release tablet 325 mg = 1 tab(s), Oral, qDay furosemide 40 mg oral tablet 40 mg = 1 tab(s), Oral, qDay HumaLOG KwikPen 100 units/mL injectable PEN 5 unit(s), Subcutaneous, BIDAC hydrALAZINE 50 mg oral tablet 50 mg = 1 tab(s), Oral, TID isosorbide mononitrate 30 mg oral tablet, extended release 30 mg = 1 tab(s), Oral, qDayAC Lantus Solostar Pen 100 units/mL 3 mL Pen 15 unit(s), Subcutaneous, qDay metoprolol tartrate 25 mg oral tablet 50 mg = 2 tab(s), Oral, BID Milk of Magnesia 30 mL, PRN, Oral, Daily pantoprazole 40 mg oral enteric coated tablet 40 mg = 1 tab(s), Oral, qDay polyethylene glycol 3350 , PRN, Oral, qDay Potassium Chloride (Uzz-Wehc-Hck M20) 20 mEq oral tablet, extended release 20 mEq = 1 tab(s), Oral,qDay Problem List/Past Medical History (HFpEF) heart failure with preserved ejection fraction CAESAR (acute kidney injury) Acute kidney injury superimposed on chronic kidney disease Anemia Anemia in chronic kidney disease (CKD) Atrial fibrillation BMI 39.0-39.9,adult CHF, acute on chronic CRF (chronic renal failure) Cellulitis DU (duodenal ulcer) Debility HTN (hypertension) Hyperlipidemia Morbid obesity Septic joint of left knee joint Type 1 diabetes Surgical History Appendectomy Family History No family history recorded. Social History Alcohol Details: Use: Past. Home/Environment Details: Living situation: Home with assistance. Domestic Concerns: None. Lives In: Apartment, Single level home. Current Home Treatments Wound care. Substance Abuse Details: Type: Marijuana. Tobacco Details: Nicotine Use: Never (less than 100 in lifetime), Former smoker, quit more than 30 days ago. Physical Exam Vitals: Dpltbcvadct03.3 (11:15) Systolic Blood Uzliqxmp869 (11:15) Diastolic Blood Rfcozzhq47 (11:15) Pulse69 (11:15) ZaY507 (11:15) Respiratory RateNo result General: Alert, cooperative. RIGHT Tunneled HD catheter visualized, dressing intact, clean, dry, no signs of erythema, swelling,irritation The remainder of the physical exam is noncontributory. Labs Anticoagulation Labs No qualifying data available. No qualifying data available. Assessment/Treatment Plan Image guided tunneled HD catheter exchange Post Procedure Discharge Plan Patient to be discharged home. Slim Hardy PA-C Interventional Radiology Pager: [phone] IR dept: x [phone] Available on [employer] Digitally Signed by SLIM HARDY PA-C on 04/13/2024 01:55 PM Digitally Signed by NELLI BUSTILLOS MD on 04/13/2024 04:11 PM [id number] Telephone encounter Note* Telephone Encounter - Oksana Obando RN - 04/13/2024 10:43 AM EDT 0840 TC from pt, he states that his ride never showed up and he's not going to make it to his appt,he also had an appt to pick up worker his juxta lite garments today. Advised him to call his home care agency and advise them of his inability to get to his appt so they can come and remove his compression wraps and follow the prn orders. Advised him that home care can call [facility] with an update and he was rescheduled for next week. Pt verbalized understanding. Dr Olivia present and aware of above. [facility]08-01-2024 Miscellaneous Notes* Telephone Encounter - Oksana Obando RN - 04/13/2024 10:43 AM EDT 0840 TC from pt, he states that his ride never showed up and he's not going to make it to his appt,he also had an appt to pick up worker his juxta lite garments today. Advised him to call his home care agency and advise them of his inability to get to his appt so they can come and remove his compression wraps and follow the prn orders. Advised him that home care can call [facility] with an update and he was rescheduled for next week. Pt verbalized understanding. Dr Olivia present and aware of above. [facility]* Simi Kern RN - 04/06/2024 10:52 AM EDT DISCHARGE DRESSING APPLIED BY LILIANA ALLEN LPN CHT PER PROVIDER ORDER [facility]07-25-2024 NoteC[facility] [id number] History of Present illness Narrative* Gilmer Olivia DPM - 04/06/2024 10:42 AM EDT Images from the original note were not included. Wound Care Progress Note Subjective: Patient presents with: Wound Check HISTORY of PRESENT ILLNESS HPI Roz Baker is a 73 year old male who presents today for wound/ulcer evaluation. History of Wound Context: Venous ulcer Wound/Ulcer Pain Timing/Severity: AMB ROOMING INTAKE FLOWSHEET DATA Risk Screening Do you have concerns about personal safety or safety in the home?: No Pain Pain Level: 0 Patient seen today for follow-up of ulcerations on the lower extremities bilaterally. He is tolerated the Coflex TLC wraps well. Patient feels as though he is doing great. Patient has been undergoingdialysis which is really helped get some fluid off of him. He is on week 5 of dialysis. He is also tolerated the compression wraps which he has not in the past. Patient denies any new complaints. No nausea, vomiting, fever, chills. PAST MEDICAL HISTORY Diagnosis Date Acute duodenal ulcer with hemorrhage 10/25/2022 Acute respiratory failure with hypoxia (HCC) Atrial fibrillation (HCC) 2022 eliquis stopped with large duodenal ulcer CHF exacerbation (HCC) Chronic kidney disease Electronic Maintenance Supervisor Dr. Julianne Dumas Chronic kidney disease on chronic dialysis (HCC) Dialysis on , Wed. COVID-19 Diabetes mellitus Type II (HCC) Difficulty in walking, not elsewhere classified Essential hypertension History of echocardiogram 10/26/2022 LVEF is normal, estimated at 55% to 60%. There is mild mitral and tricuspid regurgitation. History of echocardiogram 05/18/2023 EF is 50%. LVH is noted. Moderate MR. ANASTACIA is 2.8. Trace GA and AR. Mild to Moderate TR. Iron deficiency anemia historical site guide current use of insulin (HCC) Morbid obesity (HCC) Muscle weakness (generalized) Need for assistance with personal care Nonalcoholic steatohepatitis (PEREZ) Unsteadiness on feet PAST SURGICAL HISTORY Procedure Laterality Date APPENDECTOMY LEG SURGERY HX Social History Tobacco Use Smoking status: Former Packs/day: 1.00 Years: 30.00 Additional pack years: 0.00 Total pack years: 30.00 Types: Cigarettes Quit date: 1995 Years since quittin. Smokeless tobacco: Never Vaping Use Vaping Use: Never used Substance Use Topics Alcohol use: Not Currently Drug use: Not Currently Frequency: 2.0 times per week Types: Marijuana Comment: Previous Occasional use of Marijuana. ALLERGIES Allergen Reactions Codeine Unknown Current Outpatient Medications on File Prior to Visit Medication Sig predniSONE (DELTASONE) 20 mg tablet Take 20 mg by mouth once daily. empagliflozin (JARDIANCE) 10 mg tablet Take 1 tablet by mouth daily with breakfast. apixaban (ELIQUIS) 5 mg tab(s) Take 1 tablet by mouth two times a day. b complex, c, folic acid 1 mg renal vitamins (RENAL CAPS) 1 mg capsule Take 1 capsule by mouth oncedaily. hydrALAZINE (APRESOLINE) 50 mg tablet Take 1.5 tablets by mouth every 8 hours. isosorbide mononitrate ER (IMDUR) 30 mg 24 hr tablet Take 2 tablets by mouth once daily. SODIUM BICARBONATE, BULK, ORAL Take 650 mg by mouth two times a day. famotidine (PEPCID) 40 mg tablet Take 1 tablet by mouth every 12 hours. omeprazole (PRILOSEC) 20 mg capsule Take 20 mg by mouth once daily. silver sulfADIAZINE (SILVADENE) 1 % cream Apply 1 application to affected area once daily. ipratropium-albuterol (DUONEB) 0.5 mg-3 mg(2.5 mg base)/3 mL nebu Inhale 3 mL as instructed every 4hours as needed for wheezing/shortness of breath. ondansetron (ZOFRAN) 4 mg tablet Take 4 mg by mouth every 8 hours as needed for nausea/vomiting. allopurinol (ZYLOPRIM) 100 mg tablet Take 100 mg by mouth once daily. bisacodyl (DULCOLAX) 10 mg supp 10 mg by RECTAL route once daily as needed for constipation. metoprolol succinate ER (TOPROL XL) 100 mg Take 1 tablet by mouth once daily. Patient should start on December 21, 2023. furosemide (LASIX) 40 mg tablet Take 1 tablet by mouth once daily. cholecalciferol (VITAMIN D-3) 5,000 unit tab Take 5,000 Units by mouth once daily. Zinc Sulfate 50 mg zinc (220 mg) tab Take 50 mg by mouth once daily. glucagon 1 mg/mL injection Inject 1 mg subcutaneously as needed. cyclobenzaprine (FLEXERIL) 5 mg tablet Take 5 mg by mouth three times a day as needed for muscle spasm. acetaminophen 650 mg CR tablet Take 650 mg by mouth every 8 hours as needed for pain. insulin lispro (HUMALOG KWIKPEN) 100 unit/mL pen Inject 1 Units subcutaneously two times a day. Sliding scale: BS 151-200= 1 UNITS BS 201-250= 2 UNITS BS 251-300= 3 UNITS BS 301-350= 4 UNITS BS 351-999= 5 UNITS calcitriol (ROCALTROL) 0.25 mcg capsule Take 1 tablet by mouth every afternoon. No current facility-administered medications on file prior to visit. Objective: BP 117/53 Pulse 88 Temp 36.5 C (97.7 F) Resp 16 Last 3 Encounter Wt Readings: Date: Wt: 03/31/2024 97.8 kg (215 lb 9.8 oz) 03/23/2024 96.6 kg (213 lb) 03/05/2024 102.6 kg (226 lb 3.1 oz) Physical Exam Compression Therapy: Bilateral, Double layer below the knee (WRAPS SLID DOWN, RIGHT 3 INCHES AND LEFT 2 INCHES, HAD TO CUT RIGHT FELT TIGHT AND REPORST CUTTING WEDNESDAY) Treatments/Procedures Compression Therapy: Bilateral, Double layer below the knee (WRAPS SLID DOWN, RIGHT 3 INCHES AND LEFT 2 INCHES, HAD TO CUT RIGHT FELT TIGHT AND REPORST CUTTING WEDNESDAY) Peripheral Vascular R Calf Circumference (cm): 40.5 cm L Calf Circumference (cm): 38.2 cm R Ankle Measurement (cm): 29.5 cm L Ankle Measurement (cm): 29.7 cm Lower Extremity Circulation Pulses Palpation - LEFT dorsal pedis pulse: +1 Pulses Palpation - RIGHT dorsal pedis pulse: +1 Pulses Palpation - LEFT dorsal pedis pulse: +1 Pulses Palpation - RIGHT dorsal pedis pulse: +1 Patient has significant edema to the lower extremities however it has decreased. The fluid in the lower legs have been pushed up towards the knees but overall no new ulcers seen. Neuro: No clonus is noted. Negative Babinski exam to the lower extremities. Derm: Skin Condition/Temp: Warm, Swollen (BLE). See picture and description of ulcerations below asthese are clusters of ulcers with no necrotic tissue appreciated. There is epithelization bilaterally. The edema is reducing to the lower extremities due to the compression. Patient's webspaces are clean and dry bilaterally. Ortho: LLE: Swelling Musculoskeletal LLE: Swelling RLE: Swelling No pain with palpation to the ulcerations. No crepitation noted. Muscle strength are 4/5 for all groups bilaterally. LABS: No results found for: CRP No results found for: WSR INR Date Value Ref Range Status 11/05/2023 1.4 (H) 0.9 - 1.3 Final Comment: Vitamin K Antagonist (VKA) Therapeutic Range: INR 2 to 3 (Target INR of 2.5) Note: For patients treated with VKA drugs, such as warfarin, the [place] 2012 Guideline recommends a therapeutic INR range of 2 to 3 (target INR of 2.5). This recommendation includes high-risk patients with antiphospholipid syndrome with previous arterial or venous thromboembolism, current-generation mechanical or bioprosthetic aortic heart valve replacement. Note: Patients with mechanical aortic valve replacement and additional risk factors for thromboembolic events (atrial fibrillation, previous thromboembolism, LV dysfunction, hypercoagulable conditions) or an older generation mechanical AVR (i.e., ball in-Cage) or any mechanical MVR should have a INR therapeutic range of 2.5 to 3.5 (target INR of 3). Ashly EVANS, et al. Chest 2012, 141:7S-47S Liss RA, et al. [facility] 2017, 70: 252-289 APTT Date Value Ref Range Status 11/05/2023 26.4 25.1 - 36.5 sec Final Comment: [facility] Heparin Therapeutic Range: 54-90 seconds Hemoglobin A1C (%) Date Value 04/24/2023 6.9 01/28/2023 7.2 12/29/2022 8.0 10/30/2022 7.3 05/01/2022 6.8 MICROBIOLOGY: Positive Micro-30 Days No results found for the last 720 hours. IMAGING: Last XR Foot - Impression Only No resulted procedures found. Last XR Ankle - Impression Only XR ANKLE GENERAL 3V AP/LAT/OBL LEFT Resulted: 02/03/2016 7:04 PM (Final result) Impression: 1. Status post ORIF of the distal fibular fracture. No new fractures identified. 2. Mild degenerative changes at the ankle joint. 3. Mild soft tissue swelling of the ankle without any underlying acute osseous abnormality. 4. Calcaneal enthesopathy ... Last MRI Foot - Impression Only No resulted procedures found. Last MRI Ankle - Impression Only No resulted procedures found. Wound 12/06/23 141 Venous Ulcer Pretibial Right;Lower (Active) Properties Placement Date 12/06/23 Placement Time 1413 Location Pretibial Wound Approximate Age at First Assessment (Weeks) 52 weeks Primary Wound Type Venous Ulcer Wound Location Orientation Right;Lower Wound Description (Comments) [facility] G2 Assessments 04/06/2024 10:00 AM Wound Image Lizzeth-Wound Assessment Dry;Hyperpigmented;Peeling Wound Length (cm) 6.5 cm (CLUSTER) Wound Width (cm) 15.2 cm (CLUSTER/SLIGHT ANGLE) Wound Surface Area (cm^2) 98.8 cm^2 Wound Depth (cm) 0.1 cm Wound Volume (cm^3) 9.88 cm^3 Wound Healing % 93 Drainage Description Serosanguineous Drainage Amount Moderate Odor None Wound Bed Granulation (%) 100 % Non-staged Wound Description Full thickness (GRADE 2) Wound 12/06/231414 Venous Ulcer Pretibial Left;Lower (Active) Properties Placement Date 12/06/23 Placement Time 1415 Location Pretibial Wound Approximate Age at First Assessment (Weeks) 52 weeks Primary Wound Type Venous Ulcer Wound Location Orientation Left;Lower Wound Description (Comments) [facility] G2 Assessments 04/06/2024 10:00 AM Wound Image Lizzeth-Wound Assessment Dry;Hyperpigmented;Peeling Wound Length (cm) 19.2 cm (CLUSTER/SLIGHT ANGLE) Wound Width (cm) 11 cm (CLUSTER) Wound Surface Area (cm^2) 211.2 cm^2 Wound Depth (cm) 0.1 cm Wound Volume (cm^3) 21.12 cm^3 Wound Healing % 83 Drainage Description Serosanguineous Drainage Amount Moderate Odor None Wound Bed Granulation (%) 100 % Non-staged Wound Description Full thickness (GRADE 2) Procedures: WOUND DEBRIDEMENT PROCEDURE NOTE No debridement Assessment and Plan: Chronic venous hypertension (idiopathic) with ulcer of bilateral lower extremity (code) ([facility]) (primary encounter diagnosis) Non-pressure chronic ulcer of other part of left lower leg with fat layer exposed ([facility]) Non-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 ([facility]) Secondary lymphedema Type 2 diabetes mellitus with other skin ulcer (code) ([facility]) Diabetic polyneuropathy associated with type 2 diabetes mellitus ([facility]) group home current use of insulin ([facility]) Esrd (end stage renal disease) on dialysis ([facility]) Physician Plan: Wound orders placed during this encounter Will continue with the Triad paste to the lower extremities bilaterally and then apply a Dura Max foam nonadhesive bilaterally and then use the 2 layer compression bandage system to the lower extremities bilaterally. Patient instructed keep the dressings dry, clean, and intact. Continue with dialysis as this is helping to remove excessive fluid of the lower extremities. Elevate legs frequently performing ankle pumps and circles multiple times daily. Continue with dietary recommendations to help promote healing. Will write a prescription for patient to obtain a pair of juxta lite compression garments. These will be helpful once the ulcerations are healed to maintain fluid control in the lower extremities. They will be applied in the morning and removed at night. Patient can use Silvadene cream at home as needed if there is a problem with the wraps. Treatment Note please see attached After Visit Summary Thank you for choosing [facility] and allowing us to help heal your wounds. SIGNATURE: Gilmer Olivia DPM PATIENT NAME: Roz Baker DATE: April 06, 2024 TIME: 10:42 AM documented in this encounterSalem [facility] Hospital07-[facility] Nurse Note* Jyothi Gar RN - 04/06/2024 10:09 AM EDT WOUND ASSESSMENT COMPLETED BY GWENDOLYN DUBOIS RN REPORTS BEING BACK HOME, DISCHARGED JAIL, REPORTS HAVING [facility]07-25-2024 Instructions* Patient Instructions* Oksana Obando RN - 04/06/2024 9:54 AM EDT RIGHT LOWER EXTREMITY AND LEFT LOWER EXTREMITY ULCERS: Shower with dressing protected/covered Cleanse ulcers with normal saline Apply triad paste to BLE Apply non adhesive foam (DURAMAX) as needed Apply 2 layer compression bandage system May pad ankle/achilles with felt/foam or cast padding as needed Change weekly at [facility] and as needed If problems with compression and you are instructed, remove compression wrap, cleanse the ulcer with saline, apply silvadene, cover with dry dressing and change dressing daily and as needed. Wear your tubigrip for compression. Elevate your legs above the level of your heart and do ankle pumps and circles. Take 1/2 tab of Multi-vitamin twice a day, Vitamin D3 5000 international unit(s) daily and eat highprotein foods to help promote wound healing. If you have questions or concerns: Wednesday-Wednesday 8am-4:30pm, call the [facility] at [phone]. After 4:30pm, on weekends or holidays, call [facility] at [phone] and have the physician operator weapon locating radar paged. Juxta Lite Compression Garments have been ordered for you. Please take the prescription to [facility] to have them ordered. documented in this encounterSalem City Hospital07-23-2024 Telephone encounter Note * Telephone Encounter - Fedreico Park APRN.FARRAH - 04/04/2024 7:55 AM EDT [facility] called and spoke to Maddie MORALES. She stated that the patient is being discharged to home today, and will be picking up refills for his medications at his local pharmacy. [facility]07-23-2024 Miscellaneous Notes* Telephone Encounter - Federico Park APRN.CNP - 04/04/2024 7:55 AM EDT [facility] called and spoke to Maddie MORALES. She stated that the patient is being discharged to home today, and will be picking up refills for his medications at his local pharmacy. * Telephone Encounter - Ly Byers Tech - 04/03/2024 11:24 AM EDT Nano from [facility] called regarding the patient's Eliquis . She states that he has not been on it in forever (since his GI bleed) and needs an order to restart it. She was not happy that this was restarted the Eliquis. Stated she sent us a med list and we should have seen that he was not on it. Patient was also prescribed Jardience and we did not send an order for them to give that medicationeither. Both medications were sent to an outside pharmacy. She would like you to look into the Eliquis and send orders for the medications. Please call Nano back at [phone] documented in this encounterSalem City Hospital07-22-2024 Telephone encounter Note * Telephone Encounter - Ly Byers Tech - 04/03/2024 11:24 AM EDT Nano from [facility] called regarding the patient's Eliquis . She states that he has not been on it in forever (since his GI bleed) and needs an order to restart it. She was not happy that this was restarted the Eliquis. Stated she sent us a med list and we should have seen that he was not on it. Patient was also prescribed Jardience and we did not send an order for them to give that medicationeither. Both medications were sent to an outside pharmacy. She would like you to look into the Eliquis and send orders for the medications. Please call Nano back at [phone] EXT [phone] [facility]07-19-2024 [facility]07-19-2024 History of Present illness Narrative* Federico Park APRN.DRONE PILOT - 03/31/2024 9:35 AM EDT Date: March 31, 2024 Chief Complaint: [facility] Follow Up ([facility] f/u- CHF) HISTORY OF PRESENT ILLNESS: Roz Baker is a 73 year old male who presents for follow up for cardiac conditions. Patient has history of chronic HFpEF, chronic atrial fibrillation, left ventricular hypertrophy, DM type 2, and CKD on dialysis. Patient states that he has been taking his medications as prescribed. 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 Patient denies chest pain, dyspnea, or lightheadedness. ALLERGIES Allergen Reactions Codeine Unknown PAST MEDICAL HISTORY: PAST MEDICAL HISTORY Diagnosis Date Acute duodenal ulcer with hemorrhage 10/25/2022 Acute respiratory failure with hypoxia (HCC) Atrial fibrillation (HCC) 2022 eliquis stopped with large duodenal ulcer CHF exacerbation (HCC) Chronic kidney disease Electronic Maintenance Supervisor Dr. Julianne Dumas Chronic kidney disease on chronic dialysis (HCC) Dialysis on Wed, , Wed. COVID-19 Diabetes mellitus Type II (HCC) Difficulty in walking, not elsewhere classified Essential hypertension History of echocardiogram 10/26/2022 LVEF is normal, estimated at 55% to 60%. There is mild mitral and tricuspid regurgitation. History of echocardiogram 05/18/2023 EF is 50%. LVH is noted. Moderate MR. ANASTACIA is 2.8. Trace GA and AR. Mild to Moderate TR. Iron deficiency anemia group home current use of insulin (HCC) Morbid obesity (HCC) Muscle weakness (generalized) Need for assistance with personal care Nonalcoholic steatohepatitis (PEREZ) Unsteadiness on feet PAST SURGICAL HISTORY Procedure Laterality Date APPENDECTOMY LEG SURGERY HX FAMILY HISTORY Problem Relation Age of Onset Dementia Mother Cancer Father other (Congestive Heart Failure) Brother SOCIAL HISTORY: Tobacco Use: 1 packs/day, for 30 years. Quit 09/13/1995. Types: Cigarettes Alcohol Use: Not Currently Drug Use: Not Currently (Previous Occasional use of Marijuana.) Employer And Job Title: None on file Years Of Education Completed: Not specified Marital Status: Single MEDICATIONS: Current Outpatient Medications Medication Sig predniSONE (DELTASONE) 20 mg tablet Take 20 mg by mouth once daily. b complex, c, folic acid 1 mg renal vitamins (RENAL CAPS) 1 mg capsule Take 1 capsule by mouth oncedaily. hydrALAZINE (APRESOLINE) 50 mg tablet Take 1.5 tablets by mouth every 8 hours. isosorbide mononitrate ER (IMDUR) 30 mg 24 hr tablet Take 2 tablets by mouth once daily. SODIUM BICARBONATE, BULK, ORAL Take 650 mg by mouth two times a day. famotidine (PEPCID) 40 mg tablet Take 1 tablet by mouth every 12 hours. omeprazole (PRILOSEC) 20 mg capsule Take 20 mg by mouth once daily. silver sulfADIAZINE (SILVADENE) 1 % cream Apply 1 application to affected area once daily. ipratropium-albuterol (DUONEB) 0.5 mg-3 mg(2.5 mg base)/3 mL nebu Inhale 3 mL as instructed every 4hours as needed for wheezing/shortness of breath. ondansetron (ZOFRAN) 4 mg tablet Take 4 mg by mouth every 8 hours as needed for nausea/vomiting. allopurinol (ZYLOPRIM) 100 mg tablet Take 100 mg by mouth once daily. bisacodyl (DULCOLAX) 10 mg supp 10 mg by RECTAL route once daily as needed for constipation. metoprolol succinate ER (TOPROL XL) 100 mg Take 1 tablet by mouth once daily. Patient should start on December 21, 2023. furosemide (LASIX) 40 mg tablet Take 1 tablet by mouth once daily. cholecalciferol (VITAMIN D-3) 5,000 unit tab Take 5,000 Units by mouth once daily. Zinc Sulfate 50 mg zinc (220 mg) tab Take 50 mg by mouth once daily. glucagon 1 mg/mL injection Inject 1 mg subcutaneously as needed. cyclobenzaprine (FLEXERIL) 5 mg tablet Take 5 mg by mouth three times a day as needed for muscle spasm. acetaminophen 650 mg CR tablet Take 650 mg by mouth every 8 hours as needed for pain. insulin lispro (HUMALOG KWIKPEN) 100 unit/mL pen Inject 1 Units subcutaneously two times a day. Sliding scale: BS 151-200= 1 UNITS BS 201-250= 2 UNITS BS 251-300= 3 UNITS BS 301-350= 4 UNITS BS 351-999= 5 UNITS calcitriol (ROCALTROL) 0.25 mcg capsule Take 1 tablet by mouth every afternoon. empagliflozin (JARDIANCE) 10 mg tablet Take 1 tablet by mouth daily with breakfast. apixaban (ELIQUIS) 5 mg tab(s) Take 1 tablet by mouth two times a day. No current facility-administered medications for this visit. I have personally reviewed the patients past medical history including social, family, surgical, diagnostics, and medications. REVIEW OF SYSTEMS: Review of Systems Constitutional: Negative for chills and fatigue. Respiratory: Negative for cough, chest tightness, shortness of breath, wheezing and stridor. Cardiovascular: Positive for leg swelling (chronic bilateral lower leg edema). Negative for chest pain and palpitations. Gastrointestinal: Negative. Musculoskeletal: Gait problem: ambulates with walker. Skin: Negative. Neurological: Negative for dizziness, syncope, weakness, light-headedness, numbness and headaches. Hematological: Bruises/bleeds easily. Psychiatric/Behavioral: Negative for confusion and hallucinations. PHYSICAL EXAMINATION: BP 138/74 (BP Site: Left Arm, BP Position: Sitting) Pulse 70 Resp 16 Ht 177.8 cm (5' 10) Wt 97.8 kg (215 lb 9.8 oz) SpO2 97% BMI 30.94 kg/m Last 3 Encounter BP Readings: Date: BP: 03/30/2024 157/75[pt asymptomatic[ 03/23/2024 125/60 03/05/2024 173/95 Last 3 Encounter Pulse Readings: Date: Pulse: 03/30/2024 75 03/23/2024 81 03/05/2024 98 Last 3 Encounter Wt Readings: Date: Wt: 03/31/2024 96.9 kg (213 lb 10 oz) 03/23/2024 96.6 kg (213 lb) 03/05/2024 102.6 kg (226 lb 3.1 oz) Physical Exam Constitutional: General: He is not in acute distress. Appearance: Normal appearance. He is obese. He is not diaphoretic. HENT: Head: Normocephalic and atraumatic. Mouth/Throat: Mouth: Mucous membranes are moist. Pharynx: Oropharynx is clear. Eyes: General: No scleral icterus. Conjunctiva/sclera: Conjunctivae normal. Neck: Vascular: No carotid bruit. Cardiovascular: Rate and Rhythm: Normal rate. Rhythm irregular. Pulses: Normal pulses. Radial pulses are 2+ on the right side and 2+ on the left side. Heart sounds: Murmur heard. Systolic murmur is present with a grade of 2/6. Pulmonary: Effort: Pulmonary effort is normal. Breath sounds: Normal breath sounds. No wheezing or rales. Abdominal: General: Bowel sounds are normal. Palpations: Abdomen is soft. Tenderness: There is no right CVA tenderness or left CVA tenderness. Musculoskeletal: Cervical back: Normal range of motion and neck supple. No rigidity. Skin: General: Skin is warm and dry. Capillary Refill: Capillary refill takes less than 2 seconds. Coloration: Skin is not jaundiced or pale. Neurological: General: No focal deficit present. Mental Status: He is alert and oriented to person, place, and time. Psychiatric: Behavior: Behavior normal. Thought Content: Thought content normal. LABS: Glucose (mg/dL) Date Value 03/11/2024 119 2023 143 Potassium (mmol/L) Date Value 03/11/2024 4.1 2023 3.8 Sodium (mmol/L) Date Value 03/11/2024 135 2023 133 Chloride (mmol/L) Date Value 03/11/2024 102 2023 89 CO2 (mmol/L) Date Value 03/11/2024 26 2023 28 Creatinine (mg/dL) Date Value 03/11/2024 2.80 2023 3.97 BUN (mg/dL) Date Value 03/11/2024 30 2023 92 Anion Gap (mmol/L) Date Value 03/11/2024 7 2023 19.8 Calcium (mg/dL) Date Value 2023 8.4 Calcium, Total (mg/dL) Date Value 03/11/2024 7.7 Protein, Total (g/dL) Date Value 03/05/2024 6.3 05/23/2023 6.8 Albumin (g/dL) Date Value 03/05/2024 2.7 05/23/2023 3.1 Bilirubin, Total (mg/dL) Date Value 03/05/2024 <0.2 05/23/2023 0.7 Alkaline Phosphatase (U/L) Date Value 03/05/2024 127 05/23/2023 62 AST (U/L) Date Value 03/05/2024 20 05/23/2023 13 ALT (U/L) Date Value 03/05/2024 8 05/23/2023 < 5 Hemoglobin (g/dL) Date Value 03/06/2024 7.9 2023 8.7 Hematocrit (%) Date Value 03/06/2024 24.5 2023 28.5 WBC Date Value 03/06/2024 5.56 k/uL 2023 6.4 x10(3) Cholesterol, Total (mg/dL) Date Value 01/28/2023 143 HDL Cholesterol (mg/dL) Date Value 01/28/2023 41 LDL (mg/dL) Date Value 01/28/2023 90 Triglyceride (mg/dL) Date Value 01/28/2023 61 EKG: Atrial fibrillation: HR 70 bpm. DIAGNOSTIC TEST RESULTS: Recent Results (from the past 24 hour(s)) ECG COMPLETE Collection Time: 03/31/24 10:01 AM Result Value Ref Range Ventricular Rate 70 BPM Atrial Rate 88 BPM QRS Duration 106 ms QT Interval 424 ms QTC Calculation (Bazett) 457 ms Calculated R [place] -19 degrees Calculated T [place] 38 degrees Narrative NAME : ROZ BAKER PID : [id number] : 1950 Gender : Male Race : ORD : [id number] Procedure Date : Mar 31 2024 10:01:36 Edit Date : Mar 31 2024 09:59:10 Diagnosis: Atrial fibrillation Abnormal ECG When compared with ECG of 05-Mar-2024 20:17, No significant change was found Test Reason : [facility] Location : 2 : [place] Overread By : , Edited By : , Referred By : , Acquired by : , Impression Atrial fibrillation Abnormal ECG When compared with ECG of 05-Mar-2024 20:17, No significant change was found ASSESSMENT/PLAN: 1. Longstanding persistent atrial fibrillation (HCC) - ICD9: 427.31, ICD10: I48.11 (primary diagnosis) - Chronic, rate controlled - Anticoagulated on Eliquis. 2. Chronic heart failure with preserved ejection fraction (HFpEF) (HCC) - ICD9: 428.9, ICD10: I50.32 - Stable - Currently on Toprol and Lasix therapy. - Start Jardiance 10 mg daily. - GDMT limited by CKD. - Encouraged sodium restriction - Encouraged daily weights - Recommend regular aerobic exercise - ECG COMPLETE 3. Moderate concentric left ventricular hypertrophy - ICD9: 429.3, ICD10: I51.7 - Currently on Metoprolol therapy. 4. Primary hypertension - ICD9: 401.9, ICD10: I10 - Controlled - Encouraged sodium restriction, DASH or Mediterranean diet - Recommend regular aerobic exercise - Discussed need for and benefit of weight loss. BMI 30.94 kg/(m^2) - Reviewed risks of hypertension and principles of treatment 5. Stage 4 chronic kidney disease (HCC) - ICD9: 585.4, ICD10: N18.4 - Counseled on low sodium diet - Managed by Electronic Maintenance Supervisor. 6. Chronic kidney disease on chronic dialysis (HCC) - ICD9: 585.9, V45.11, ICD10: N18.6, Z99.2 7. Type 2 diabetes mellitus with stage 4 chronic kidney disease, with long-term current use of insulin (HCC) - ICD9: 250.40, 585.4, V58.67, ICD10: E11.22, N18.4, Z79.4 - Start SGLT2i therapy. - Counseled on healthy diet and regular exercise - Discussed need for and benefit of weight loss. BMI 30.94 kg/(m^2) - Managed by PCP. 8. Class 1 obesity due to excess calories with serious comorbidity and body mass index (BMI) of 30.0 to 30.9 in adult - ICD9: 278.00, V85.30, ICD10: E66.09, Z68.30 - Stable - Behavioral intervention 9. NYHA class 3 heart failure with preserved ejection fraction (HCC) - ICD9: 428.9, ICD10: I50.30 - Start Jardiance therapy. Federico Park APRN.CNP Follow up in 6 months. Greater that 51% of my time was spent with [id number] conversation with the patient. I have discussed the recommended treatment, alternative therapies and other options in detail. I've discussed the best benefit and side effects of these recommended treatments. I've attempted to answer all the questions to the patient's satisfaction and understanding. After leaving the exam room, I went back into the patient's chart and coordinated care with my nurse ordering the proper testing and medicinal changes. Letter was performed with voice recognition algorithms and sent to the referring team. The chart was completed. Including the pre-exam, exam and post- exam, the total time spent in the patient's management was greater than 40 minutes. I, Federico Park CNP have reviewed and agree with the information in the medical record. Federico Park APRN.DRONE PILOT documented in this encounterSalem [facility]07-18-[facility]24 Nurse Note* Faby Reese RN - 03/30/2024 9:01 AM EDT DISCHARGE DRESSING APPLIED BY FABY REESE RN and SIMI KERN RN PER PROVIDER ORDER [facility]07-18-2024 Nurse Note* Faby Reees RN - 03/30/2024 9:01 AM EDT DISCHARGE DRESSING APPLIED BY FAYB REESE RN and SIMI KERN RN PER PROVIDER ORDER * Ana Leslie RN - 03/30/2024 8:14 AM EDT WOUND ASSESSMENT COMPLETED BY JYOTHI GAR RN. Pt cut his wraps about 4 inches down completely off as they were too tight. documented in this encounterSalem City Hospital07-18-2024 Instructions* Patient Instructions* Oksana Obando RN - 03/30/2024 8:35 AM EDT RIGHT LOWER EXTREMITY AND LEFT LOWER EXTREMITY ULCERS: Shower with dressing protected/covered Cleanse ulcers with normal saline Apply triad paste to BLE Apply non adhesive foam (DURAMAX) Apply 2 layer compression bandage system May pad ankle/achilles with felt/foam or cast padding as needed Change weekly at [facility] and as needed If problems with compression and you are instructed, remove compression wrap, cleanse the ulcer with saline, apply silvadene, cover with dry dressing and change dressing daily and as needed. Wear your tubigrip for compression. Elevate your legs above the level of your heart and do ankle pumps and circles. Take 1/2 tab of Multi-vitamin twice a day, Vitamin D3 5000 international unit(s) daily and eat highprotein foods to help promote wound healing. If you have questions or concerns: Wednesday-Wednesday 8am-4:30pm, call the [facility] at [phone]. After 4:30pm, on weekends or holidays, call [facility] at [phone] and have the physician operator weapon locating radar paged. documented in this encounterSalem City Hospital07-18-2024 [facility] History of Present illness Narrative* Gilmer Olivia DPM - 03/30/2024 8:33 AM EDT Images from the original note were not included. Wound Care Progress Note Subjective: Patient presents with: Wound Check HISTORY of PRESENT ILLNESS HPI Roz Baker is a 73 year old male who presents today for wound/ulcer evaluation. History of Wound Context: Venous ulcer Wound/Ulcer Pain Timing/Severity: AMB ROOMING INTAKE FLOWSHEET DATA Risk Screening Do you have concerns about personal safety or safety in the home?: No Patient seen for bilateral lower extremity ulcerations. Patient tolerated the compression wraps anddressings to the lower extremities bilaterally. They did roll down a bit and instead of just makinga slipped and then the actually cut them down 4 inches proximally. Patient feels like he is doing well. He has been undergoing dialysis for his end-stage renal disease and believes that this is helping with his fluids. He states that for once he is not having his feet completely soaked PAST MEDICAL HISTORY Diagnosis Date Acute duodenal ulcer with hemorrhage 2022 Acute respiratory failure with hypoxia ([facility]) Atrial fibrillation ([facility]) 2022 eliquis stopped with large duodenal ulcer CHF exacerbation ([facility]) Chronic kidney disease Electronic Maintenance Supervisor Dr. Julianne Dumas COVID-19 Diabetes mellitus Type II ([facility]) Difficulty in walking, not elsewhere classified Essential hypertension HFrEF (heart failure with reduced ejection fraction) ([facility]) History of echocardiogram 10/26/2022 LVEF is normal, estimated at 55% to 60%. There is mild mitral and tricuspid regurgitation. History of echocardiogram 05/18/2023 EF is 50%. LVH is noted. Moderate MR. ANASTACIA is 2.8. Trace GA and AR. Mild to Moderate TR. Iron deficiency anemia historical site guide current use of insulin ([facility]) Morbid obesity ([facility]) Muscle weakness (generalized) Need for assistance with personal care Nonalcoholic steatohepatitis (PEREZ) Unsteadiness on feet PAST SURGICAL HISTORY Procedure Laterality Date APPENDECTOMY LEG SURGERY HX Social History Tobacco Use Smoking status: Former Packs/day: 1.00 Years: 30.00 Additional pack years: 0.00 Total pack years: 30.00 Types: Cigarettes Quit date: 1995 Years since quittin.5 Smokeless tobacco: Never Vaping Use Vaping Use: Never used Substance Use Topics Alcohol use: Not Currently Drug use: Not Currently Frequency: 2.0 times per week Types: Marijuana Comment: Previous Occasional use of Marijuana. ALLERGIES Allergen Reactions Codeine Unknown Current Outpatient Medications on File Prior to Visit Medication Sig hydrALAZINE (APRESOLINE) 25 mg tablet Take 25 mg by mouth every 8 hours. b complex, c, folic acid 1 mg renal vitamins (RENAL CAPS) 1 mg capsule Take 1 capsule by mouth oncedaily. hydrALAZINE (APRESOLINE) 50 mg tablet Take 1.5 tablets by mouth every 8 hours. isosorbide mononitrate ER (IMDUR) 30 mg 24 hr tablet Take 2 tablets by mouth once daily. SODIUM BICARBONATE, BULK, ORAL Take 650 mg by mouth two times a day. famotidine (PEPCID) 40 mg tablet Take 1 tablet by mouth every 12 hours. omeprazole (PRILOSEC) 20 mg capsule Take 20 mg by mouth once daily. silver sulfADIAZINE (SILVADENE) 1 % cream Apply 1 application to affected area once daily. ipratropium-albuterol (DUONEB) 0.5 mg-3 mg(2.5 mg base)/3 mL nebu Inhale 3 mL as instructed every 4hours as needed for wheezing/shortness of breath. ondansetron (ZOFRAN) 4 mg tablet Take 4 mg by mouth every 8 hours as needed for nausea/vomiting. allopurinol (ZYLOPRIM) 100 mg tablet Take 100 mg by mouth once daily. arginine/glutamine/calcium bmb (LIZETTE ORAL) Take 8 oz by mouth two times a day. (Patient not taking: Reported on 03/23/2024) bisacodyl (DULCOLAX) 10 mg supp 10 mg by RECTAL route once daily as needed for constipation. metoprolol succinate ER (TOPROL XL) 100 mg Take 1 tablet by mouth once daily. Patient should start on December 21, 2023. furosemide (LASIX) 40 mg tablet Take 1 tablet by mouth once daily. multivitamin tablet Take 1 tablet by mouth two times a day. (Patient not taking: Reported on 03/23/2024) cholecalciferol (VITAMIN D-3) 5,000 unit tab Take 5,000 Units by mouth once daily. Zinc Sulfate 50 mg zinc (220 mg) tab Take 50 mg by mouth once daily. glucagon 1 mg/mL injection Inject 1 mg subcutaneously as needed. cyclobenzaprine (FLEXERIL) 5 mg tablet Take 5 mg by mouth three times a day as needed for muscle spasm. acetaminophen 650 mg CR tablet Take 650 mg by mouth every 8 hours as needed for pain. insulin lispro (HUMALOG KWIKPEN) 100 unit/mL pen Inject 1 Units subcutaneously two times a day. Sliding scale: BS 151-200= 1 UNITS BS 201-250= 2 UNITS BS 251-300= 3 UNITS BS 301-350= 4 UNITS BS 351-999= 5 UNITS ferrous sulfate 325 mg (65 mg iron) tablet Take 1 tablet by mouth once daily. (Patient not taking: Reported on 03/23/2024) calcitriol (ROCALTROL) 0.25 mcg capsule Take 1 tablet by mouth every afternoon. No current facility-administered medications on file prior to visit. Objective: BP 157/75 Pulse 75 Temp 36.1 C (97 F) Resp 16 Last 3 Encounter Wt Readings: Date: Wt: 03/23/2024 96.6 kg (213 lb) 03/05/2024 102.6 kg (226 lb 3.1 oz) 01/31/2024 106.6 kg (235 lb) Physical Exam Peripheral Vascular R Calf Circumference (cm): 47.5 cm L Calf Circumference (cm): 44.4 cm R Ankle Measurement (cm): 35 cm L Ankle Measurement (cm): 32 cm Lower Extremity Circulation Pulses Palpation - LEFT dorsal pedis pulse: +1 Pulses Palpation - RIGHT dorsal pedis pulse: +1 Pulses Palpation - LEFT dorsal pedis pulse: +1 Pulses Palpation - RIGHT dorsal pedis pulse: +1 Neuro: Patient has diminished protective sensation. No clonus noted. Negative Babinski exam bilaterally. Derm: Skin Condition/Temp: Swollen, Warm (ble). Patient has increased measurement size for the cluster of ulcers however his skin is much improved from last week. He has some small intact bulla wherehe cut down the wrap at the proximal aspect of his lower legs bilaterally but these are fairly minimal. There is epithelization seen within the ulcers. The dry skin and the redness and discoloration of the legs is much less since he tolerated the compression wraps. Ortho: There is no pain with palpation to the ulcerations. No crepitation noted. Patient able to ambulate well. Score: Grade 2 LABS: No results found for: CRP No results found for: WSR INR Date Value Ref Range Status 11/05/2023 1.4 (H) 0.9 - 1.3 Final Comment: Vitamin K Antagonist (VKA) Therapeutic Range: INR 2 to 3 (Target INR of 2.5) Note: For patients treated with VKA drugs, such as warfarin, the [place] [employer] 2012 Guideline recommends a therapeutic INR range of 2 to 3 (target INR of 2.5). This recommendation includes high-risk patients with antiphospholipid syndrome with previous arterial or venous thromboembolism, current-generation mechanical or bioprosthetic aortic heart valve replacement. Note: Patients with mechanical aortic valve replacement and additional risk factors for thromboembolic events (atrial fibrillation, previous thromboembolism, LV dysfunction, hypercoagulable conditions) or an older generation mechanical AVR (i.e., ball in-Cage) or any mechanical MVR should have a INR therapeutic range of 2.5 to 3.5 (target INR of 3). Ashly EVANS, et al. Chest 2012, 141:7S-47S Liss FREGOSO, et al. [facility] 2017, 70: 252-289 APTT Date Value Ref Range Status 11/05/2023 26.4 25.1 - 36.5 sec Final Comment: [facility] Heparin Therapeutic Range: 54-90 seconds Hemoglobin A1C (%) Date Value 04/24/2023 6.9 01/28/2023 7.2 12/29/2022 8.0 10/30/2022 7.3 05/01/2022 6.8 MICROBIOLOGY: Positive Micro-30 Days No results found for the last 720 hours. IMAGING: Last XR Foot - Impression Only No resulted procedures found. Last XR Ankle - Impression Only XR ANKLE GENERAL 3V AP/LAT/OBL LEFT Resulted: 02/03/2016 7:04 PM (Final result) Impression: 1. Status post ORIF of the distal fibular fracture. No new fractures identified. 2. Mild degenerative changes at the ankle joint. 3. Mild soft tissue swelling of the ankle without any underlying acute osseous abnormality. 4. Calcaneal enthesopathy ... Last MRI Foot - Impression Only No resulted procedures found. Last MRI Ankle - Impression Only No resulted procedures found. Wound 12/06/23 1414 Venous Ulcer Pretibial Right;Lower (Active) Properties Placement Date 12/06/23 Placement Time 1414 Location Pretibial Wound Approximate Age at First Assessment (Weeks) 52 weeks Primary Wound Type Venous Ulcer Wound Location Orientation Right;Lower Wound Description (Comments) [facility] G2 Assessments 03/30/2024 8:00 AM Wound Image Lizzeth-Wound Assessment Dry;Peeling;Hyperpigmented;Scarred Wound Length (cm) 23 cm (cluster) Wound Width (cm) 21.4 cm (cluster) Wound Surface Area (cm^2) 492.2 cm^2 Wound Depth (cm) 0.1 cm Wound Volume (cm^3) 49.22 cm^3 Wound Healing % 67 Drainage Description Serosanguineous Drainage Amount Moderate Odor None Wound Bed Granulation (%) 50 % Wound Bed Slough (%) 50 % Non-staged Wound Description Full thickness (GRADE 2) Wound 12/06/23 1415 Venous Ulcer Pretibial Left;Lower (Active) Properties Placement Date 12/06/23 Placement Time 1415 Location Pretibial Wound Approximate Age at First Assessment (Weeks) 52 weeks Primary Wound Type Venous Ulcer Wound Location Orientation Left;Lower Wound Description (Comments) [facility] G2 Assessments 03/30/2024 8:00 AM Wound Image Lizzeth-Wound Assessment Dry;Hyperpigmented;Peeling;Scarred Wound Length (cm) 23.6 cm (cluster) Wound Width (cm) 25.5 cm (cluster) Wound Surface Area (cm^2) 601.8 cm^2 Wound Depth (cm) 0.1 cm Wound Volume (cm^3) 60.18 cm^3 Wound Healing % 51 Drainage Description Serosanguineous Drainage Amount Moderate Odor None Wound Bed Granulation (%) 50 % Wound Bed Slough (%) 50 % Non-staged Wound Description Full thickness (GRADE 2) Procedures: WOUND DEBRIDEMENT PROCEDURE NOTE No debridement of ulcers Assessment and Plan: Chronic venous hypertension (idiopathic) with ulcer of bilateral lower extremity (code) ([facility]) (primary encounter diagnosis) Non-pressure chronic ulcer of other part of left lower leg with fat layer exposed ([facility]) Non-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 ([facility]) Secondary lymphedema Type 2 diabetes mellitus with other skin ulcer (code) ([facility]) Diabetic polyneuropathy associated with type 2 diabetes mellitus ([facility]) historical site guide current use of insulin ([facility]) Esrd (end stage renal disease) on dialysis ([facility]) Physician Plan: Wound orders placed during this encounter Will again apply Triad paste to the skin on the lower extremity and then cover with the 2 layer compression bandage system using the Urgo system to bilateral lower extremities. Patient instructed to keep the dressings dry, clean, and intact. Patient was also educated on how to cut the dressings. Heis to make a slip to them and then put a small piece of tape over it so that it does not continue to roll down. Patient understands. Patient is to elevate legs frequently performing ankle pumps and circles multiple times daily avoidkeeping legs in a dependent position. Patient admits that he was picking at blisters previously. With the legs wrap avoiding him picking at the skin. I also do believe that his dialysis is helping to control fluid removal which will helpthe legs as well. Consider possible vascular surgery referral for venous insufficiency in the future. Call if there are any questions or concerns. Treatment Note please see attached After Visit Summary Thank you for choosing [facility] and allowing us to help heal your wounds. SIGNATURE: Gilmer Olivia DPM PATIENT NAME: Roz Baker DATE: March 30, 2024 TIME: 8:42 AM documented [facility] Nurse Note* Ana Leslie RN - 03/30/2024 8:14 AM EDT WOUND ASSESSMENT COMPLETED BY JYOTHI GAR RN. Pt cut his wraps about 4 inches down completely off as they were too tight. [facility]07-11-2024 Nurse Note* Faby Reese RN - 03/23/2024 10:16 AM EDT DISCHARGE DRESSING APPLIED BY FABY REESE RN and LILIANA ALLEN LPN CHT PER PROVIDER ORDER [facility]07-11-2024 Nurse Note* Faby Reese RN - 03/23/2024 10:16 AM EDT DISCHARGE DRESSING APPLIED BY FABY REESE RN and LILIANA ALLEN LPN CHT PER PROVIDER ORDER * Jyothi Gar RN - 03/23/2024 9:38 AM EDT WOUND ASSESSMENT COMPLETED BY ANA LESLIE RN FELICE Patient on dialysis, reports swelling better. Patient had no dressings and reports putting cream onwithout dressings or guaze documented in this encounterSal[facility] 03-23-2024 History of Present illness Narrative* Gilmer Olivia, DPM - 03/23/2024 10:01 AM EDT Images from the original note were not included. Wound Care Progress Note Subjective: Patient presents with: Wound Check HISTORY of PRESENT ILLNESS HPI Roz Baker is a 73 year old male who presents today for wound/ulcer evaluation. History of Wound Context: Venous ulcer Wound/Ulcer Pain Timing/Severity: AMB ROOMING INTAKE FLOWSHEET DATA Risk Screening Do you have concerns about personal safety or safety in the home?: No Pain Pain Level: 0 Patient seen today for follow-up of ulcerations on bilateral lower extremities. Patient was recently hospitalized. Prior to leaving the hospital he was placed in calamine Coflex wraps. These were very hard for the nursing staff at [facility] to remove as the calamine had adhered and stuck to his skin. Patient states that he has now developed blisters. Patient is seen Dr. Echavarria here at the woundhealing center in the past. Patient apparently has had venous stasis and lymphedema ulcerations forseveral years. Patient has new blistering that has occurred since last visit. Patient also has beentreated with lymphedema pumps however the pumps have not been working appropriately and he has not been able to use them. Patient started dialysis and is going on Wednesdays and Fridays. He states he is lost to 100 pounds since doing dialysis and he believes the leg swelling has decreased. PAST MEDICAL HISTORY Diagnosis Date Acute duodenal ulcer with hemorrhage 2022 Acute respiratory failure with hypoxia (HCC) Atrial fibrillation (HCC) 2022 eliquis stopped with large duodenal ulcer CHF exacerbation (HCC) Chronic kidney disease Electronic Maintenance Supervisor Dr. Julianne Dumas COVID-19 Diabetes mellitus Type II (HCC) Difficulty in walking, not elsewhere classified Essential hypertension HFrEF (heart failure with reduced ejection fraction) ([facility]) History of echocardiogram 10/26/2022 LVEF is normal, estimated at 55% to 60%. There is mild mitral and tricuspid regurgitation. History of echocardiogram 05/18/2023 EF is 50%. LVH is noted. Moderate MR. ANASTACIA is 2.8. Trace GA and AR. Mild to Moderate TR. Iron deficiency anemia historical site guide current use of insulin (HCC) Morbid obesity (HCC) Muscle weakness (generalized) Need for assistance with personal care Nonalcoholic steatohepatitis (PEREZ) Unsteadiness on feet PAST SURGICAL HISTORY Procedure Laterality Date APPENDECTOMY LEG SURGERY HX Social History Tobacco Use Smoking status: Former Packs/day: 1.00 Years: 30.00 Additional pack years: 0.00 Total pack years: 30.00 Types: Cigarettes Quit date: 1995 Years since quittin.5 Smokeless tobacco: Never Vaping Use Vaping Use: Never used Substance Use Topics Alcohol use: Not Currently Drug use: Not Currently Frequency: 2.0 times per week Types: Marijuana Comment: Previous Occasional use of Marijuana. ALLERGIES Allergen Reactions Codeine Unknown Current Outpatient Medications on File Prior to Visit Medication Sig b complex, c, folic acid 1 mg renal vitamins (RENAL CAPS) 1 mg capsule Take 1 capsule by mouth oncedaily. hydrALAZINE (APRESOLINE) 50 mg tablet Take 1.5 tablets by mouth every 8 hours. isosorbide mononitrate ER (IMDUR) 30 mg 24 hr tablet Take 2 tablets by mouth once daily. SODIUM BICARBONATE, BULK, ORAL Take 650 mg by mouth two times a day. famotidine (PEPCID) 40 mg tablet Take 1 tablet by mouth every 12 hours. omeprazole (PRILOSEC) 20 mg capsule Take 20 mg by mouth once daily. silver sulfADIAZINE (SILVADENE) 1 % cream Apply 1 application to affected area once daily. ipratropium-albuterol (DUONEB) 0.5 mg-3 mg(2.5 mg base)/3 mL nebu Inhale 3 mL as instructed every 4hours as needed for wheezing/shortness of breath. ondansetron (ZOFRAN) 4 mg tablet Take 4 mg by mouth every 8 hours as needed for nausea/vomiting. allopurinol (ZYLOPRIM) 100 mg tablet Take 100 mg by mouth once daily. bisacodyl (DULCOLAX) 10 mg supp 10 mg by RECTAL route once daily as needed for constipation. cholecalciferol (VITAMIN D-3) 5,000 unit tab Take 5,000 Units by mouth once daily. Zinc Sulfate 50 mg zinc (220 mg) tab Take 50 mg by mouth once daily. glucagon 1 mg/mL injection Inject 1 mg subcutaneously as needed. cyclobenzaprine (FLEXERIL) 5 mg tablet Take 5 mg by mouth three times a day as needed for muscle spasm. acetaminophen 650 mg CR tablet Take 650 mg by mouth every 8 hours as needed for pain. insulin lispro (HUMALOG KWIKPEN) 100 unit/mL pen Inject 1 Units subcutaneously two times a day. Sliding scale: BS 151-200= 1 UNITS BS 201-250= 2 UNITS BS 251-300= 3 UNITS BS 301-350= 4 UNITS BS 351-999= 5 UNITS calcitriol (ROCALTROL) 0.25 mcg capsule Take 1 tablet by mouth every afternoon. arginine/glutamine/calcium bmb (LIZETTE ORAL) Take 8 oz by mouth two times a day. (Patient not taking: Reported on 03/23/2024) metoprolol succinate ER (TOPROL XL) 100 mg Take 1 tablet by mouth once daily. Patient should start on December 21, 2023. furosemide (LASIX) 40 mg tablet Take 1 tablet by mouth once daily. multivitamin tablet Take 1 tablet by mouth two times a day. (Patient not taking: Reported on 03/23/2024) ferrous sulfate 325 mg (65 mg iron) tablet Take 1 tablet by mouth once daily. (Patient not taking: Reported on 03/23/2024) No current facility-administered medications on file prior to visit. Objective: BP 125/60 Pulse 81 Temp 36.7 C (98 F) Resp 16 Wt 96.6 kg (213 lb) BMI 30.56 kg/m Last 3 Encounter Wt Readings: Date: Wt: 03/23/2024 96.6 kg (213 lb) 03/05/2024 102.6 kg (226 lb 3.1 oz) 01/31/2024 106.6 kg (235 lb) Physical Exam Compression Therapy: (no compression on intake) Treatments/Procedures Compression Therapy: (no compression on intake) Peripheral Vascular R Calf Circumference (cm): 47.7 cm L Calf Circumference (cm): 45.8 cm R Ankle Measurement (cm): 33.9 cm L Ankle Measurement (cm): 33.5 cm Lower Extremity Circulation Pulses Palpation - LEFT dorsal pedis pulse: +1 Pulses Palpation - RIGHT dorsal pedis pulse: +1 Pulses Palpation - LEFT dorsal pedis pulse: +1 Pulses Palpation - RIGHT dorsal pedis pulse: +1 Neuro: No clonus is noted. Patient has a negative Babinski exam to the lower extremities bilaterally. There is diminished protective sensation Derm: Skin Condition/Temp: Warm, Swollen (ble). See picture and description of circumferential ulcerations of the lower extremities below. Multiple intact and collapsed blisters are present. Patient has significant edema to the lower extremities. There is no purulent drainage or malodor present. These findings are noted bilaterally. Ortho: LLE: Swelling Musculoskeletal LLE: Swelling RLE: Swelling No pain with palpation to the ulcerations. No crepitation is noted. Patient ambulates with walker. Muscle strength are weakened to the lower extremities bilaterally LABS: No results found for: CRP No results found for: WSR INR Date Value Ref Range Status 11/05/2023 1.4 (H) 0.9 - 1.3 Final Comment: Vitamin K Antagonist (VKA) Therapeutic Range: INR 2 to 3 (Target INR of 2.5) Note: For patients treated with VKA drugs, such as warfarin, the [place] [employer] 2012 Guideline recommends a therapeutic INR range of 2 to 3 (target INR of 2.5). This recommendation includes high-risk patients with antiphospholipid syndrome with previous arterial or venous thromboembolism, current-generation mechanical or bioprosthetic aortic heart valve replacement. Note: Patients with mechanical aortic valve replacement and additional risk factors for thromboembolic events (atrial fibrillation, previous thromboembolism, LV dysfunction, hypercoagulable conditions) or an older generation mechanical AVR (i.e., ball in-Cage) or any mechanical MVR should have a INR therapeutic range of 2.5 to 3.5 (target INR of 3). Ashly GH, et al. Chest 2012, 141:7S-47S Liss RA, et al. [facility] 2017, 70: 252-289 APTT Date Value Ref Range Status 11/05/2023 26.4 25.1 - 36.5 sec Final Comment: [facility] Heparin Therapeutic Range: 54-90 seconds Hemoglobin A1C (%) Date Value 04/24/2023 6.9 01/28/2023 7.2 12/29/2022 8.0 10/30/2022 7.3 05/01/2022 6.8 MICROBIOLOGY: Positive Micro-30 Days No results found for the last 720 hours. IMAGING: Last XR Foot - Impression Only No resulted procedures found. Last XR Ankle - Impression Only XR ANKLE GENERAL 3V AP/LAT/OBL LEFT Resulted: 02/03/2016 7:04 PM (Final result) Impression: 1. Status post ORIF of the distal fibular fracture. No new fractures identified. 2. Mild degenerative changes at the ankle joint. 3. Mild soft tissue swelling of the ankle without any underlying acute osseous abnormality. 4. Calcaneal enthesopathy ... Last MRI Foot - Impression Only No resulted procedures found. Last MRI Ankle - Impression Only No resulted procedures found. Wound 12/06/23 1414 Venous Ulcer Pretibial Right;Lower (Active) Properties Placement Date 12/06/23 Placement Time 1414 Location Pretibial Wound Approximate Age at First Assessment (Weeks) 52 weeks Primary Wound Type Venous Ulcer Wound Location Orientation Right;Lower Wound Description (Comments) [facility] G2 Assessments 03/23/2024 9:00 AM Wound Image Lizzeth-Wound Assessment Hyperpigmented;Scarred;Moist Wound Length (cm) 19.8 cm (cluster) Wound Width (cm) 13.7 cm (cluster) Wound Surface Area (cm^2) 271.26 cm^2 Wound Depth (cm) 0.1 cm Wound Volume (cm^3) 27.126 cm^3 Wound Healing % 82 Drainage Description Serous Drainage Amount Large (on stocking, no dressing, actively weeping) Odor None Wound Bed Granulation (%) 50 % Wound Bed Slough (%) 50 % Non-staged Wound Description Full thickness (grade 2) Wound 12/06/23 1415 Venous Ulcer Pretibial Left;Lower (Active) Properties Placement Date 12/06/23 Placement Time 1415 Location Pretibial Wound Approximate Age at First Assessment (Weeks) 52 weeks Primary Wound Type Venous Ulcer Wound Location Orientation Left;Lower Wound Description (Comments) [facility] G2 Assessments 03/23/2024 9:00 AM Wound Image Lizzeth-Wound Assessment Hyperpigmented;Scarred;Moist Wound Length (cm) 19.8 cm (cluster) Wound Width (cm) 23 cm (cluster) Wound Surface Area (cm^2) 455.4 cm^2 Wound Depth (cm) 0.1 cm Wound Volume (cm^3) 45.54 cm^3 Wound Healing % 63 Drainage Description Serous Odor None Wound Bed Granulation (%) 50 % Wound Bed Slough (%) 50 % Non-staged Wound Description Full thickness (grade 2) Procedures: No debridement of ulcerations performed today. Assessment and Plan: Chronic venous hypertension (idiopathic) with ulcer of bilateral lower extremity (code) ([facility]) (primary encounter diagnosis) Non-pressure chronic ulcer of other part of left lower leg with fat layer exposed ([facility]) Non-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 ([facility]) Secondary lymphedema Type 2 diabetes mellitus with other skin ulcer (code) ([facility]) Diabetic polyneuropathy associated with type 2 diabetes mellitus ([facility]) group home current use of insulin ([facility]) Physician Plan: Wound orders placed during this encounter Discussed with patient diagnosis and treatment. Will apply Triad paste to the skin of the lower extremities bilaterally and then apply the Duramax foams to the lower extremities bilaterally and cover with Coflex TLC wraps. Will avoid the use of the calamine at this time since it had dried and adhered to patient's skin. Patient is to elevate legs frequently performing ankle pumps and circles multiple times daily. Avoid keeping legs in a downward position. I encourage patient to ambulate as this will help with swelling as well. Control blood glucose to help promote healing. Continue to follow dietary recommendations as previously ordered. Patient advised that dialysis will help to remove fluids slowly for him which should help with someof the swelling. Hopefully the combination of wound care and dialysis with fluid reduction will help with the ulcerations. Consider possible biopsy to rule out some sort of bullous type of disease of the skin in the future. Call if there is any redness, pus, malodor, nausea, vomiting, fever, chills etc. Treatment Note please see attached After Visit Summary Thank you for choosing [facility] and allowing us to help heal your wounds. SIGNATURE: Gilmer Olivia DPM PATIENT NAME: Roz Baker DATE: March 23, 2024 TIME: 10:01 AM documented in this encounterSal[facility] Instructions* Patient Instructions* Oksana Obando RN - 03/23/2024 9:55 AM EDT RIGHT LOWER EXTREMITY AND LEFT LOWER EXTREMITY ULCERS: Shower with dressing protected/covered Cleanse ulcers with normal saline Apply triad paste to BLE Apply non adhesive foam (DURAMAX) Apply 2 layer compression bandage system May pad ankle/achilles with felt/foam or cast padding as needed Change weekly at [facility] and as needed If problems with compression and you are instructed, remove compression wrap, cleanse the ulcer with saline, apply silvadene, cover with dry dressing and change dressing daily and as needed. Wear your tubigrip for compression. Elevate your legs above the level of your heart and do ankle pumps and circles. Take 1/2 tab of Multi-vitamin twice a day, Vitamin D3 5000 international unit(s) daily and eat highprotein foods to help promote wound healing. If you have questions or concerns: Wednesday-Wednesday 8am-4:30pm, call the [facility] at [phone]. After 4:30pm, on weekends or holidays, call [facility] at [phone] and have the physician operator weapon locating radar paged. documented in this encounterSal[facility] Nurse Note* Jyothi Gar RN - 03/23/2024 9:38 AM EDT WOUND ASSESSMENT COMPLETED BY ANA LESLIE RN CN Patient on dialysis, reports swelling better. Patient had no dressings and reports putting cream onwithout dressings or guaze [facility]07-08-2024 Telephone encounter Note* Telephone Encounter - Oksana Obando RN - 03/20/2024 8:54 AM EDT TC from [facility] at [facility], she states it took her 1 1/2 hours to do pt's dressing change on Wednesday as the calamine compression dressing was stuck so bad to his left leg. She states the pt criedand his leg bled and bled as she removed the dressing. She states she had it soaked with saline andit was still sticking and she had to have another nurse come in and peel the dressing off while she held the patients leg. Advised her that Dr Olivia will be notified on and will address treatment at that time as they are currently doing the silvadene cream. [facility]07-08-2024 Miscellaneous Notes* Telephone Encounter - Oksana Obando RN - 03/20/2024 8:54 AM EDT TC from [facility] at [facility], she states it took her 1 1/2 hours to do pt's dressing change on Wednesday as the calamine compression dressing was stuck so bad to his left leg. She states the pt criedand his leg bled and bled as she removed the dressing. She states she had it soaked with saline andit was still sticking and she had to have another nurse come in and peel the dressing off while she held the patients leg. Advised her that Dr Olivia will be notified on and will address treatment at that time as they are currently doing the silvadene cream. documented [facility] Telephone encounter Note * Telephone Encounter - Ana Leslie RN - 03/13/2024 3:54 PM EDT [facility] reports that pt has dialysis on Wed And Wed. Cannot come to appointment today. Scheduled for 03/23/[address] Olivia. [facility]07-01-2024 Miscellaneous Notes* Telephone Encounter - Ana Leslie RN - 03/13/2024 3:54 PM EDT [facility] reports that pt has dialysis on Wed And Wed. Cannot come to appointment today. Scheduled for 03/23/[address] Olivia. documented in this encounterSal[facility]06-29-[facility]24 [facility] 03-11-2024 [facility]06-28-2024 [facility]06-28-2024 [facility]06-28-2024 [facility]06-28-2024 NoteHNO ID: [id number] Author: BRICE NORRIS, CARMEN Service: Care Management Author Type: Registered Nurse Type: Care Mgt Progress Note Filed: 03/10/2024 06:42 Note Text: IMM renote delivered bedsideCameron Memorial Community [id number] [facility] 03-09-2024 [facility]06-27-2024 [facility]06-26-2024 [facility]06-26-2024 [facility]06-26-2024 NoteHNO ID: [id number] Author: IVORY VEGAS, CARMEN Service: Radiology Author Type: Registered Nurse Type: Nursing Progress Note Filed: 03/08/2024 13:54 Note Text: Report to Jennifer VillegasBedford Regional Medical [id number] [facility] 03-08-2024 NoteHNO ID: [id number] Author: KACIE MONTENEGRO DO Service: General Surgery Author Type: Physician Type: Progress Notes Filed: 03/08/2024 13:41 Note Text: Patient will need to follow up in office to schedule fistula placement Kacie Montenegro DO 1:41 [facility] [id number] [facility]06-26-2024 [facility] 03-08-2024 NoteHNO ID: [id number] Author: BRICE NORRIS, CARMEN Service: Care Management Author Type: Registered Nurse Type: Care Mgt Progress Note Filed: 03/08/2024 06:44 Note Text: IMM renote delivered bedside.[facility] [id number] [facility] 03-07-2024 [facility]06-25-2024 NoteHNO ID: [id number] Author: KACIE MONTENEGRO DO Service: General Surgery Author Type: Physician Type: Progress Notes Filed: 03/07/2024 12:49 Note Text: Plan for tunneled catheter placement tomorrowCameron Memorial Community [id number] [facility]06-24-2024 [facility]06-23-2024 [facility]06-18-2024 Telephone encounter Note* Telephone Encounter - Oksana Obando, CARMEN - 02/29/2024 2:10 PM EDT TC from [facility], progressive care unit registered nurse at [facility], she wanted to clarify that the dressings pt came back tothem with were to stay in place until his next appt and also to notify [facility] that pt no longer has lymphedema pumps. She states he had them and they had a lot of trouble with them working and then whenhe was discharged they returned them as they were a rental and they have never gotten them back since he has returned to them. She states he is very non compliant and doesn't want them to do anythingwith his legs. She states they told him he could not come out of his room for therapy for anything else without his legs covered as they just drip and pt replied that he would just stay in his room then. She states he does not have any type of compression stockings, that he wants to return home in a couple weeks. Inquired if he has ever seen a vascular surgeon and she is not sure if he has or not. Requested that F notify [facility] if pt removes compression wraps as it was discussed with pt that if he isn't going to comply with the treatment plan that there is no reason to continue to come to the [facility] and he agreed. She verbalized understanding. Will update Dr Echavarria. [facility]06-18-2024 Miscellaneous Notes* Telephone Encounter - Oksana Obando RN - 02/29/2024 2:10 PM EDT TC from [facility], progressive care unit registered nurse at [facility], she wanted to clarify that the dressings pt came back tothem with were to stay in place until his next appt and also to notify [facility] that pt no longer has lymphedema pumps. She states he had them and they had a lot of trouble with them working and then whenhe was discharged they returned them as they were a rental and they have never gotten them back since he has returned to them. She states he is very non compliant and doesn't want them to do anythingwith his legs. She states they told him he could not come out of his room for therapy for anything else without his legs covered as they just drip and pt replied that he would just stay in his room then. She states he does not have any type of compression stockings, that he wants to return home in a couple weeks. Inquired if he has ever seen a vascular surgeon and she is not sure if he has or not. Requested that [facility] notify [facility] if pt removes compression wraps as it was discussed with pt that if he isn't going to comply with the treatment plan that there is no reason to continue to come to the [facility] and he agreed. She verbalized understanding. Will update Dr Echavarria. documented in this encounterSalem City Hospital06-17-2024 Nurse Note* Faby Reese RN - 02/28/2024 3:10 PM EDT DISCHARGE DRESSING APPLIED BY ANA FELIX PER PHYSICIAN ORDER [facility]06-17-2024 Nurse Note* Faby Reese RN - 02/28/2024 3:10 PM EDT DISCHARGE DRESSING APPLIED BY ANA MONDRAGONCN PER PHYSICIAN ORDER * Sallie Estrella LPN - 02/28/2024 2:15 PM EDT WOUND ASSESSMENT COMPLETED BY LILIANA ALLEN LPN CHT. PT REFUSES COMPRESSION AND ANY TYPE OF DRESSINGS ON HIS LEGS. PT CAME IN WITH NO DRESSING TO BLE. PT STATES HE IS NOT USING HIS LYMPHEDEMA PUMPS AT THE [facility], HE STATES THEY ARE NOT PUTTING THEM ON DUE TO AN ISSUE WITH THEM NOT WORKING PROPERLY. PTSTATES HE REMOVES HIS OWN DRESSINGS THAT ARE APPLIED. PT ONLY WANTS SILVADENE AND NOTHING ELSE. HE S TATES HE WANTS HIS LEGS TO BREATHE. documented in this encounterSalem City Hospital06-17-2024 [facility] 02-28-2024 History of Present illness Narrative* Yoli Echavarria DPM - 02/28/2024 3:01 PM EDTSummary: Wound Healing Center Progress Note Images from the original note were not included. Wound Care Progress Note Subjective: Patient presents with: Wound Check HISTORY of PRESENT ILLNESS HPI Roz Baker is a 73 year old male who presents today for wound/ulcer evaluation. He states that heis feeling well. He denies nausea, vomiting, fever, chills. He has told nursing and myself that he doesn't want gauze wraps over his legs because they cause blisters. [facility] wraps at the [facility]. When told that the dressings help to keep the wounds protected from the environment and from infection, he said maybe infection would be good so the legs would just fall off! He is interested in trying compression wraps with Duramax in the wraps like we had tried previously. History of Wound Context: Venous ulcer PAST MEDICAL HISTORY Diagnosis Date Acute duodenal ulcer with hemorrhage 2022 Acute respiratory failure with hypoxia (HCC) Atrial fibrillation (HCC) 2022 eliquis stopped with large duodenal ulcer CHF exacerbation ([facility]) Chronic kidney disease Electronic Maintenance Supervisor Dr. Julianne Dumas COVID-19 Diabetes mellitus Type II ([facility]) Difficulty in walking, not elsewhere classified Essential hypertension HFrEF (heart failure with reduced ejection fraction) ([facility]) History of echocardiogram 10/26/2022 LVEF is normal, estimated at 55% to 60%. There is mild mitral and tricuspid regurgitation. History of echocardiogram 05/18/2023 EF is 50%. LVH is noted. Moderate MR. ANASTACIA is 2.8. Trace GA and AR. Mild to Moderate TR. Iron deficiency anemia group home current use of insulin (HCC) Morbid obesity (HCC) Muscle weakness (generalized) Need for assistance with personal care Nonalcoholic steatohepatitis (PEREZ) Unsteadiness on feet PAST SURGICAL HISTORY Procedure Laterality Date APPENDECTOMY LEG SURGERY HX ALLERGIES Allergen Reactions Codeine Unknown MEDICATIONS Current Outpatient Medications on File Prior to Visit Medication Sig cyclobenzaprine (FLEXERIL) 5 mg tablet Take 5 mg by mouth three times a day as needed for muscle spasm. ammonium lactate (LAC-HYDRIN FIVE) 5 % lotn Apply 1 Each to affected area once daily. TO BLE hydrALAZINE (APRESOLINE) 25 mg tablet Take 1 tablet by mouth every 8 hours. (Patient taking differently: Take 25 mg by mouth every 8 hours. HOLD BP <100/60) isosorbide mononitrate ER (IMDUR) 30 mg 24 hr tablet Take 1 tablet by mouth once daily. (Patient taking differently: Take 30 mg by mouth once daily. HOLD BP <100/60) metoprolol tartrate, short acting, 75 mg tab Take 1 tablet by mouth every 12 hours. (Patient takingdifferently: Take 75 mg by mouth every 12 hours. HOLD FOR BP <100/60) furosemide (LASIX) 80 mg tablet Take 0.5 tablets by mouth once daily. Patient should start on November 11, 2023. tuberculin skin test PPD (APLISOL) 5 tub. unit /0.1 mL injection 5 Units by INTRADERMAL route one time only. (Patient not taking: Reported on 12/01/2023) acetaminophen 650 mg CR tablet Take 650 mg by mouth every 8 hours as needed for pain. insulin lispro (HUMALOG KWIKPEN) 100 unit/mL pen Inject 1 Units subcutaneously two times a day. Sliding scale: BS 151-200= 1 UNITS BS 201-250= 2 UNITS BS 251-300= 3 UNITS BS 301-350= 4 UNITS BS 351-999= 5 UNITS insulin glargine in syringe 1 mL (LANTUS SOLOSTAR, BASAGLAR KWIKPEN) Inject 4 Units subcutaneously daily at bedtime. GLUCAGON SUBCUTANEOUS Inject 1 mg subcutaneously as needed (hypoglycemia). ferrous sulfate 325 mg (65 mg iron) tablet Take 1 tablet by mouth once daily. pantoprazole DR (PROTONIX) 40 mg tablet Take 1 tablet by mouth two times a day. calcitriol (ROCALTROL) 0.25 mcg capsule Take 1 tablet by mouth every afternoon. No current facility-administered medications on file prior to visit. Objective: BP 140/72 Pulse 71 Temp 36.5 C (97.7 F) Resp 16 Last 3 Encounter Wt Readings: Date: Wt: 12/01/2023 124.7 kg (275 lb) 11/05/2023 128.8 kg (283 lb 15.2 oz) 11/05/2023 134.8 kg (297 lb 3.2 oz) PHYSICAL EXAM Physical Exam Constitutional: General: He is not in acute distress. Skin: Capillary Refill: Capillary refill takes 2 to 3 seconds. Neurological: Mental Status: He is alert and oriented to person, place, and time. Peripheral Vascular R Calf Circumference (cm): 49.2 cm L Calf Circumference (cm): 47.8 cm R Ankle Measurement (cm): 36.3 cm L Ankle Measurement (cm): 34.4 cm Hemosiderin Staining Present: Yes, Left, Right Hair growth to LE present: Yes (HAIR GROWTH TO LEGS,NOT TO TOES) Pulses Palpation - LEFT dorsal pedis pulse: +1 Pulses Palpation - LEFT posterior tibial pulse: (FAINT, DUE TO EDEMA) Pulses Palpation - RIGHT dorsal pedis pulse: +1 Pulses Palpation - RIGHT posterior tibial pulse: (FAINT DUE TO EDEMA) Pulses Doppler - LEFT dorsal pedis pulse: biphasic Pulses Doppler - LEFT posterior tibial pulse: biphasic Pulses Doppler - RIGHT dorsal pedis pulse: biphasic Pulses Doppler - RIGHT posterior tibial pulse: biphasic LLE: Deformity, Swelling, Limited movement, Sensation intact (SEMMES 6/10, TENDER TO HEEL) Musculoskeletal Musculoskeletal (WDL): Exceptions to WDL LLE: Deformity, Swelling, Limited movement, Sensation intact (SEMMES 6/10, TENDER TO HEEL) RLE: Deformity, Swelling, Limited movement, Sensation intact (SEMMES 8/10, TENDER TO HEEL) LOWER WOUND ASSESSMENT Skin Condition/Temp: Swollen, Cool (BLE) Score: Grade 2 Wound 12/06/23 1414 Venous Ulcer Pretibial Right;Lower (Active) Properties Placement Date 12/06/23 Placement Time 1414 Location Pretibial Wound Approximate Age at First Assessment (Weeks) 52 weeks Primary Wound Type Venous Ulcer Wound Location Orientation Right;Lower Wound Description (Comments) [facility] G2 Assessments 02/28/2024 2:00 PM Wound Image Lizzeth-Wound Assessment Hyperpigmented;Dry;Peeling Wound Length (cm) 24.9 cm (SLIGHT ANGLE) Wound Width (cm) 21 cm Wound Surface Area (cm^2) 522.9 cm^2 Wound Depth (cm) 0.1 cm Wound Volume (cm^3) 52.29 cm^3 Wound Healing % 65 Drainage Description Serous (NO DRESSING) Drainage Amount Moderate (WITH CLEANSING) Odor None Wound Bed Granulation (%) 5 % Wound Bed Slough (%) 95 % Non-staged Wound Description Full thickness (GRADE 2) Wound 12/06/23 1415 Venous Ulcer Pretibial Left;Lower (Active) Properties Placement Date 12/06/23 Placement Time 1415 Location Pretibial Wound Approximate Age at First Assessment (Weeks) 52 weeks Primary Wound Type Venous Ulcer Wound Location Orientation Left;Lower Wound Description (Comments) [facility] G2 Assessments 02/28/2024 2:00 PM Wound Image Lizzeth-Wound Assessment Dry;Hyperpigmented;Peeling Wound Length (cm) 16.6 cm (CLUSTER) Wound Width (cm) 18.8 cm Wound Surface Area (cm^2) 312.08 cm^2 Wound Depth (cm) 0.1 cm Wound Volume (cm^3) 31.208 cm^3 Wound Healing % 74 Drainage Description Serous (ACTIVELY WEEPING) Drainage Amount Large (NO DRESSING) Odor None Wound Bed Granulation (%) 50 % Wound Bed Slough (%) 50 % Non-staged Wound Description Full thickness (GRADE 2) Assessment and Plan: Chronic venous hypertension (idiopathic) with ulcer of bilateral lower extremity (code) ([facility]) (primary encounter diagnosis) Non-pressure chronic ulcer of other part of left lower leg with fat layer exposed (hcc) Non-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 (hcc) Secondary lymphedema Type 2 diabetes mellitus with other skin ulcer (code) ([facility]) historical site guide current use of insulin (hcc) Diabetic polyneuropathy associated with type 2 diabetes mellitus ([facility]) PLEASE UPDATE EACH WOUND ORDER WITH THE ASSOCIATED WOUND Orders Placed This Encounter WOUND DRESSING CHANGE Physician Plan: Exam Discussed diagnosis and treatment with patient No debridement was performed to the right or left lower extremity ulcerations. Discussed the importance of decreasing swelling in the legs to allow these wounds to heal. Encouraged patient to use lymphedema pumps as tolerated. Advised patient to elevate his legs is much as possible and resting and frequently perform ankle pumps and circles to help with edema control. Will apply calamine wraps to the right and left lower extremity with Duramax in between the layers of the wraps to help with drainage control. Patient is to keep these wraps clean, dry, and intact until next week's visit. Call if problems or concerns arise. Follow up in one week. Treatment Note please see attached After Visit Summary Written patient dismissal instructions given to patient. Thank you for choosing [facility] and allowing us to help heal your wounds. Roz J Baker AGE: [age] year old GENDER: male : 1950 TODAY'S DATE: 02/28/2024 ICD-10 CODES Chronic venous hypertension (idiopathic) with ulcer of bilateral lower extremity (code) (hcc) (primary encounter diagnosis) Non-pressure chronic ulcer of other part of left lower leg with fat layer exposed (hcc) Non-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 (hcc) Secondary lymphedema Type 2 diabetes mellitus with other skin ulcer (code) (hcc) historical site guide current use of insulin (hcc) Diabetic polyneuropathy associated with type 2 diabetes mellitus (hcc) documented in this encounterSalem City Hospital06-17-2024 Instructions* Patient Instructions* Oksana Obando RN - 02/28/2024 2:26 PM EDT RIGHT LOWER EXTREMITY AND LEFT LOWER EXTREMITY ULCERS: Shower with dressing protected/covered Cleanse ulcers with normal saline Apply 2 layer compression bandage system -Calamine Apply non adhesive foam (DURAMAX) between Calamine layers May pad ankle/achilles with felt/foam or cast padding as needed Change weekly at [facility] and as needed If problems with compression and you are instructed, remove compression wrap, cleanse the ulcer with saline, apply silvadene, cover with dry dressing and change dressing daily and as needed. Wear your tubigrip for compression. Apply lymphedema pumps to both of your legs at 40mm/Hg for 30-60 minutes 2-3 times a day Elevate your legs above the level of your heart and do ankle pumps and circles. Take 1/2 tab of Multi-vitamin twice a day, Vitamin D3 5000 international unit(s) daily and eat highprotein foods to help promote wound healing. If you have questions or concerns: Wednesday-Wednesday 8am-4:30pm, call the [facility] at [phone]. After 4:30pm, on weekends or holidays, call [facility] at [phone] and have the physician operator weapon locating radar paged. documented in this encounterSalem City Hospital06-17-2024 Nurse Note* Sallie Estrella LPN - 02/28/2024 2:15 PM EDT WOUND ASSESSMENT COMPLETED BY LILIANA ALLEN LPN CHT. PT REFUSES COMPRESSION AND ANY TYPE OF DRESSINGS ON HIS LEGS. PT CAME IN WITH NO DRESSING TO BLE. PT STATES HE IS NOT USING HIS LYMPHEDEMA PUMPS AT THE [facility], HE STATES THEY ARE NOT PUTTING THEM ON DUE TO AN ISSUE WITH THEM NOT WORKING PROPERLY. PTSTATES HE REMOVES HIS OWN DRESSINGS THAT ARE APPLIED. PT ONLY WANTS SILVADENE AND NOTHING ELSE. HE S TATES HE WANTS HIS LEGS TO BREATHE. [facility]06-06-2024 Telephone encounter Note* Telephone Encounter - Aisha Beltran - 02/17/2024 3:24 PM EDT Patient's sister called regarding referral for Rahul stating that his follow up at [facility] had been cancelled. Called and spoke to [facility] regarding referral and was asked to refax it to scheduling/referral for Dr Haile Referral faxed to [phone] [facility]06-06-2024 Miscellaneous Notes* Telephone Encounter - Aisha Betlran - 02/17/2024 3:24 PM EDT Patient's sister called regarding referral for Rahul stating that his follow up at [facility] had been cancelled. Called and spoke to [facility] regarding referral and was asked to refax it to scheduling/referral for Dr Haile Referral faxed to [phone] documented in this encounterSalem City Hospital05-20-2024 Nurse Note* Ana Leslie RN - 01/31/2024 3:01 PM EDT DISCHARGE DRESSING APPLIED BY FABY REESE RN PER PHYSICIAN ORDER [facility]05-20-2024 Nurse Note* Ana Leslie RN - 01/31/2024 3:01 PM EDT DISCHARGE DRESSING APPLIED BY FABY REESE RN PER PHYSICIAN ORDER * Liliana Allen LPN - 01/31/2024 2:33 PM EDT WOUND ASSESSMENT COMPLETED BY GWENDOLYN DUBOIS RN. PT STATED HE IS GOING HOME ON WEDNESDAY, 02/01. PT DID NOT HAVE DRESSINGS IN PLACE TO BLE TODAY. PT STATED THAT HE THINKS THE LYMPHEDEMA PUMPS CAUSE HIM TO GET BLISTERS TO HIS LEGS. documented in this encounterSalem City Hospital05-20-2024 [facility] 01-31-2024 History of Present illness Narrative* Yoli Echavarria DPM - 01/31/2024 2:56 PM EDTSummary: Wound Healing Center Progress Note Images from the original note were not included. Wound Care Progress Note Subjective: Patient presents with: Wound Check HISTORY of PRESENT ILLNESS HPI Roz Baker is a 73 year old male who presents today for wound/ulcer evaluation. He states that heis feeling well. He denies nausea, vomiting, fever, chills. He is requesting not to come into the wound center once weekly because of cost. He states that he would prefer to come back in four weeks to save himself money. He states that he tried to use his lymphedema pumps but felt like they were causes blisters to develop on his legs, so he stopped using the pumps. History of Wound Context: Venous ulcer PAST MEDICAL HISTORY Diagnosis Date Acute duodenal ulcer with hemorrhage 2022 Acute respiratory failure with hypoxia (HCC) Atrial fibrillation (HCC) 2022 eliquis stopped with large duodenal ulcer CHF exacerbation (HCC) Chronic kidney disease Electronic Maintenance Supervisor Dr. Julianne Dumas COVID-19 Diabetes mellitus Type II (HCC) Difficulty in walking, not elsewhere classified Essential hypertension HFrEF (heart failure with reduced ejection fraction) ([facility]) History of echocardiogram 10/26/2022 LVEF is normal, estimated at 55% to 60%. There is mild mitral and tricuspid regurgitation. History of echocardiogram 05/18/2023 EF is 50%. LVH is noted. Moderate MR. ANASTACIA is 2.8. Trace GA and AR. Mild to Moderate TR. Iron deficiency anemia group home current use of insulin ([facility]) Morbid obesity ([facility]) Muscle weakness (generalized) Need for assistance with personal care Nonalcoholic steatohepatitis (PEREZ) Unsteadiness on feet PAST SURGICAL HISTORY Procedure Laterality Date APPENDECTOMY LEG SURGERY HX ALLERGIES Allergen Reactions Codeine Unknown MEDICATIONS Current Outpatient Medications on File Prior to Visit Medication Sig cyclobenzaprine (FLEXERIL) 5 mg tablet Take 5 mg by mouth three times a day as needed for muscle spasm. ammonium lactate (LAC-HYDRIN FIVE) 5 % lotn Apply 1 Each to affected area once daily. TO BLE hydrALAZINE (APRESOLINE) 25 mg tablet Take 1 tablet by mouth every 8 hours. (Patient taking differently: Take 25 mg by mouth every 8 hours. HOLD BP <100/60) isosorbide mononitrate ER (IMDUR) 30 mg 24 hr tablet Take 1 tablet by mouth once daily. (Patient taking differently: Take 30 mg by mouth once daily. HOLD BP <100/60) metoprolol tartrate, short acting, 75 mg tab Take 1 tablet by mouth every 12 hours. (Patient takingdifferently: Take 75 mg by mouth every 12 hours. HOLD FOR BP <100/60) furosemide (LASIX) 80 mg tablet Take 0.5 tablets by mouth once daily. Patient should start on November 11, 2023. tuberculin skin test PPD (APLISOL) 5 tub. unit /0.1 mL injection 5 Units by INTRADERMAL route one time only. (Patient not taking: Reported on 12/01/2023) acetaminophen 650 mg CR tablet Take 650 mg by mouth every 8 hours as needed for pain. insulin lispro (HUMALOG KWIKPEN) 100 unit/mL pen Inject 1 Units subcutaneously two times a day. Sliding scale: BS 151-200= 1 UNITS BS 201-250= 2 UNITS BS 251-300= 3 UNITS BS 301-350= 4 UNITS BS 351-999= 5 UNITS insulin glargine in syringe 1 mL (LANTUS SOLOSTAR, BASAGLAR KWIKPEN) Inject 4 Units subcutaneously daily at bedtime. GLUCAGON SUBCUTANEOUS Inject 1 mg subcutaneously as needed (hypoglycemia). ferrous sulfate 325 mg (65 mg iron) tablet Take 1 tablet by mouth once daily. pantoprazole DR (PROTONIX) 40 mg tablet Take 1 tablet by mouth two times a day. calcitriol (ROCALTROL) 0.25 mcg capsule Take 1 tablet by mouth every afternoon. No current facility-administered medications on file prior to visit. Objective: BP 154/71 Pulse (!) 52 Temp 36.1 C (97 F) Resp 16 Ht 177.8 cm (5' 10) Wt 106.6 kg (235 lb) BMI 33.72 kg/m Last 3 Encounter Wt Readings: Date: Wt: 12/01/2023 124.7 kg (275 lb) 11/05/2023 128.8 kg (283 lb 15.2 oz) 11/05/2023 134.8 kg (297 lb 3.2 oz) PHYSICAL EXAM Physical Exam Constitutional: General: He is not in acute distress. Skin: Capillary Refill: Capillary refill takes 2 to 3 seconds. Neurological: Mental Status: He is alert and oriented to person, place, and time. Peripheral Vascular R Calf Circumference (cm): 51.5 cm L Calf Circumference (cm): 48.5 cm R Ankle Measurement (cm): 36.1 cm L Ankle Measurement (cm): 35.7 cm Hemosiderin Staining Present: Yes, Left, Right Hair growth to LE present: Yes (HAIR GROWTH TO LEGS,NOT TO TOES) Pulses Palpation - LEFT dorsal pedis pulse: +1 Pulses Palpation - LEFT posterior tibial pulse: (FAINT, DUE TO EDEMA) Pulses Palpation - RIGHT dorsal pedis pulse: +1 Pulses Palpation - RIGHT posterior tibial pulse: (FAINT DUE TO EDEMA) Pulses Doppler - LEFT dorsal pedis pulse: biphasic Pulses Doppler - LEFT posterior tibial pulse: biphasic Pulses Doppler - RIGHT dorsal pedis pulse: biphasic Pulses Doppler - RIGHT posterior tibial pulse: biphasic LLE: Deformity, Swelling, Limited movement, Sensation intact (SEMMES 6/10, TENDER TO HEEL) Musculoskeletal Musculoskeletal (WDL): Exceptions to WDL LLE: Deformity, Swelling, Limited movement, Sensation intact (SEMMES 6/10, TENDER TO HEEL) RLE: Deformity, Swelling, Limited movement, Sensation intact (SEMMES 8/10, TENDER TO HEEL) LOWER WOUND ASSESSMENT Skin Condition/Temp: Swollen, Cool (BLE) Score: Grade 2 Wound 12/06/23 1414 Venous Ulcer Pretibial Right;Lower (Active) Properties Placement Date 12/06/23 Placement Time 1414 Location Pretibial Wound Approximate Age at First Assessment (Weeks) 52 weeks Primary Wound Type Venous Ulcer Wound Location Orientation Right;Lower Wound Description (Comments) [facility] G2 Assessments 01/31/2024 2:00 PM Wound Image Lizzeth-Wound Assessment Hyperpigmented;Macerated Wound Length (cm) 30.5 cm (CLUSTER) Wound Width (cm) 28.7 cm Wound Surface Area (cm^2) 875.35 cm^2 Wound Depth (cm) 0.1 cm Wound Volume (cm^3) 87.535 cm^3 Wound Healing % 42 Drainage Description Serous Drainage Amount Moderate (ACTIVELY WEEPING; NO DRS.) Odor None Wound Bed Granulation (%) 75 % Wound Bed Slough (%) 25 % Non-staged Wound Description Full thickness (GRADE 2) Wound 12/06/23 1415 Venous Ulcer Pretibial Left;Lower (Active) Properties Placement Date 12/06/23 Placement Time 1415 Location Pretibial Wound Approximate Age at First Assessment (Weeks) 52 weeks Primary Wound Type Venous Ulcer Wound Location Orientation Left;Lower Wound Description (Comments) [facility] G2 Assessments 01/31/2024 2:00 PM Wound Image Lizzeth-Wound Assessment Hyperpigmented;Dry;Maceration Wound Length (cm) 30.2 cm (CLUSTER) Wound Width (cm) 13.4 cm Wound Surface Area (cm^2) 404.68 cm^2 Wound Depth (cm) 0.1 cm Wound Volume (cm^3) 40.468 cm^3 Wound Healing % 67 Drainage Description Serous Drainage Amount Small (ACTIVELY WEEPING; NO DRS.) Odor None Wound Bed Granulation (%) 50 % Wound Bed Slough (%) 50 % Non-staged Wound Description Full thickness (GRADE 2) Assessment and Plan: Chronic venous hypertension (idiopathic) with ulcer of bilateral lower extremity (code) (hcc) (primary encounter diagnosis) Non-pressure chronic ulcer of other part of left lower leg with fat layer exposed (hcc) Non-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 (hcc) Secondary lymphedema Type 2 diabetes mellitus with other skin ulcer (code) (hcc) group home current use of insulin (hcc) PLEASE UPDATE EACH WOUND ORDER WITH THE ASSOCIATED WOUND Orders Placed This Encounter WOUND DRESSING CHANGE Order Comments: RIGHT LOWER EXTREMITY AND LEFT LOWER EXTREMITY ULCERS: SHOWER WITH YOUR DRESSINGS PROTECTED/COVERED CLEANSE ULCERS WITH NORMAL SALINE APPLY BETADINE TO WEBSPACES ON BOTH FEET APPLY SILVADENE TO ULCERS AND INTACT SKIN, RUB IN LIKE A LOTION COVER WITH DRY DRESSING AND ROLL GAUZE CHANGE DRESSING DAILY AND NEEDED Apply lymphedema pumps to both of your legs at 40mm/Hg for 30-60 minutes 2-3 times a day Elevate your legs above the level of your heart and do ankle pumps and circles. Take 1/2 tab of Multi-vitamin twice a day, Vitamin D3 5000 international unit(s) daily and eat highprotein foods to help promote wound healing. If you have questions or concerns: Wednesday-Wednesday 8am-4:30pm, call the [facility] at [phone]. After 4:30pm, on weekends or holidays, call [facility] at [phone] and have the physician operator weapon locating radar paged. Physician Plan: Exam Discussed diagnosis and treatment with patient No debridement was performed to the right or left lower extremity ulcerations. Discussed the importance of decreasing swelling in the legs to allow these wounds to heal. Encouraged patient to use lymphedema pumps as tolerated. Advised patient to elevate his legs is much as possible and resting and frequently perform ankle pumps and circles to help with edema control. Patient requests not to be in wraps. Will prescribe silvadene for patient to apply daily to the ulcers with gauze dressings. Call if problems or concerns arise. Follow up in 3-4 weeks. Treatment Note please see attached After Visit Summary Written patient dismissal instructions given to patient. Thank you for choosing [facility] and allowing us to help heal your wounds. Roz Baker AGE: [age] year old GENDER: male : 1950 TODAY'S DATE: 01/31/2024 ICD-10 CODES Chronic venous hypertension (idiopathic) with ulcer of bilateral lower extremity (code) (hcc) (primary encounter diagnosis) Non-pressure chronic ulcer of other part of left lower leg with fat layer exposed (hcc) Non-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 (hcc) Secondary lymphedema Type 2 diabetes mellitus with other skin ulcer (code) (hcc) historical site guide current use of insulin (hcc) [facility] Nurse Note* Liliana Allen LPN - 01/31/2024 2:33 PM EDT WOUND ASSESSMENT COMPLETED BY GWENDOLYN DUBOIS RN. PT STATED HE IS GOING HOME ON WEDNESDAY, 02/01. PT DID NOT HAVE DRESSINGS IN PLACE TO BLE TODAY. PT STATED THAT HE THINKS THE LYMPHEDEMA PUMPS CAUSE HIM TO GET BLISTERS TO HIS LEGS. [facility]05-20-2024 Instructions* Patient Instructions* Oksana Obando RN - 01/31/2024 1:59 PM EDT RIGHT LOWER EXTREMITY AND LEFT LOWER EXTREMITY ULCERS: SHOWER WITH YOUR DRESSINGS PROTECTED/COVERED CLEANSE ULCERS WITH NORMAL SALINE APPLY BETADINE TO WEBSPACES ON BOTH FEET APPLY SILVADENE TO ULCERS AND INTACT SKIN, RUB IN LIKE A LOTION COVER WITH DRY DRESSING AND ROLL GAUZE CHANGE DRESSING DAILY AND NEEDED Apply lymphedema pumps to both of your legs at 40mm/Hg for 30-60 minutes 2-3 times a day Elevate your legs above the level of your heart and do ankle pumps and circles. Take 1/2 tab of Multi-vitamin twice a day, Vitamin D3 5000 international unit(s) daily and eat highprotein foods to help promote wound healing. If you have questions or concerns: Wednesday-Wednesday 8am-4:30pm, call the [facility] at [phone]. After 4:30pm, on weekends or holidays, call [facility] at [phone] and have the physician operator weapon locating radar paged. documented in this encounterSal[facility]05-[facility] Nurse Note* Jyothi Gar RN - 01/17/2024 2:50 PM EDT DISCHARGE DRESSING APPLIED BY ANA MONDRAGONCN PER PHYSICIAN ORDER [facility]05-06-2024 Nurse Note* Jyothi Gar RN - 01/17/2024 2:50 PM EDT DISCHARGE DRESSING APPLIED BY ANA FELIX PER PHYSICIAN ORDER * Sallie Estrella LPN - 01/17/2024 2:18 PM EDT WOUND ASSESSMENT COMPLETED BY FABY REESE RN. PT DOES NOT WANT COMPRESSION WRAPS BACK ON ANYMORE DUE TO THE DRAINAGE AND THEY GET WET BY THE NEXT DAY AND HE DOESN'T LIKE THAT. PT DID NOT HAVE ANYDRESSINGS IN PLACE TO BLE TODAY. documented in this encounterSal[facility]24 [facility] 01-17-2024 History of Present illness Narrative* Yoli Echavarria DPM - 01/17/2024 2:43 PM EDTSummary: Wound Healing Center Progress Note Images from the original note were not included. Wound Care Progress Note Subjective: Patient presents with: Wound Check HISTORY of PRESENT ILLNESS HPI Roz Baker is a 73 year old male who presents today for wound/ulcer evaluation. He states that heis feeling well. He denies nausea, vomiting, fever, chills. Patient states that he took off his wraps because they got soaked with drainage. He states that he has been keeping lotion on his legs and trying to keep them dry. He is requesting not to come into the wound center once weekly because of cost. He states that he would prefer to come back in three weeks to save himself money. History of Wound Context: Venous ulcer PAST MEDICAL HISTORY Diagnosis Date Acute duodenal ulcer with hemorrhage 2022 Acute respiratory failure with hypoxia (HCC) Atrial fibrillation (HCC) 2022 eliquis stopped with large duodenal ulcer CHF exacerbation ([facility]) Chronic kidney disease Electronic Maintenance Supervisor Dr. Julianne Dumas COVID-19 Diabetes mellitus Type II ([facility]) Difficulty in walking, not elsewhere classified Essential hypertension HFrEF (heart failure with reduced ejection fraction) ([facility]) History of echocardiogram 10/26/2022 LVEF is normal, estimated at 55% to 60%. There is mild mitral and tricuspid regurgitation. History of echocardiogram 05/18/2023 EF is 50%. LVH is noted. Moderate MR. ANASTACIA is 2.8. Trace GA and AR. Mild to Moderate TR. Iron deficiency anemia group home current use of insulin ([facility]) Morbid obesity ([facility]) Muscle weakness (generalized) Need for assistance with personal care Nonalcoholic steatohepatitis (PEREZ) Unsteadiness on feet PAST SURGICAL HISTORY Procedure Laterality Date APPENDECTOMY LEG SURGERY HX ALLERGIES Allergen Reactions Codeine Unknown MEDICATIONS Current Outpatient Medications on File Prior to Visit Medication Sig cyclobenzaprine (FLEXERIL) 5 mg tablet Take 5 mg by mouth three times a day as needed for muscle spasm. ammonium lactate (LAC-HYDRIN FIVE) 5 % lotn Apply 1 Each to affected area once daily. TO BLE hydrALAZINE (APRESOLINE) 25 mg tablet Take 1 tablet by mouth every 8 hours. (Patient taking differently: Take 25 mg by mouth every 8 hours. HOLD BP <100/60) isosorbide mononitrate ER (IMDUR) 30 mg 24 hr tablet Take 1 tablet by mouth once daily. (Patient taking differently: Take 30 mg by mouth once daily. HOLD BP <100/60) metoprolol tartrate, short acting, 75 mg tab Take 1 tablet by mouth every 12 hours. (Patient takingdifferently: Take 75 mg by mouth every 12 hours. HOLD FOR BP <100/60) furosemide (LASIX) 80 mg tablet Take 0.5 tablets by mouth once daily. Patient should start on November 11, 2023. tuberculin skin test PPD (APLISOL) 5 tub. unit /0.1 mL injection 5 Units by INTRADERMAL route one time only. (Patient not taking: Reported on 12/01/2023) acetaminophen 650 mg CR tablet Take 650 mg by mouth every 8 hours as needed for pain. insulin lispro (HUMALOG KWIKPEN) 100 unit/mL pen Inject 1 Units subcutaneously two times a day. Sliding scale: BS 151-200= 1 UNITS BS 201-250= 2 UNITS BS 251-300= 3 UNITS BS 301-350= 4 UNITS BS 351-999= 5 UNITS insulin glargine in syringe 1 mL (LANTUS SOLOSTAR, BASAGLAR KWIKPEN) Inject 4 Units subcutaneously daily at bedtime. GLUCAGON SUBCUTANEOUS Inject 1 mg subcutaneously as needed (hypoglycemia). ferrous sulfate 325 mg (65 mg iron) tablet Take 1 tablet by mouth once daily. pantoprazole DR (PROTONIX) 40 mg tablet Take 1 tablet by mouth two times a day. calcitriol (ROCALTROL) 0.25 mcg capsule Take 1 tablet by mouth every afternoon. No current facility-administered medications on file prior to visit. Objective: BP 161/80 Pulse 80 Temp 36.9 C (98.5 F) Resp 16 Last 3 Encounter Wt Readings: Date: Wt: 12/01/2023 124.7 kg (275 lb) 11/05/2023 128.8 kg (283 lb 15.2 oz) 11/05/2023 134.8 kg (297 lb 3.2 oz) PHYSICAL EXAM Physical Exam Constitutional: General: He is not in acute distress. Skin: Capillary Refill: Capillary refill takes 2 to 3 seconds. Neurological: Mental Status: He is alert and oriented to person, place, and time. Peripheral Vascular R Calf Circumference (cm): 49.7 cm L Calf Circumference (cm): 47.1 cm R Ankle Measurement (cm): 35.5 cm L Ankle Measurement (cm): 34.0 cm Hemosiderin Staining Present: Yes, Left, Right Hair growth to LE present: Yes (HAIR GROWTH TO LEGS,NOT TO TOES) Pulses Palpation - LEFT dorsal pedis pulse: +1 Pulses Palpation - LEFT posterior tibial pulse: (FAINT, DUE TO EDEMA) Pulses Palpation - RIGHT dorsal pedis pulse: +1 Pulses Palpation - RIGHT posterior tibial pulse: (FAINT DUE TO EDEMA) Pulses Doppler - LEFT dorsal pedis pulse: biphasic Pulses Doppler - LEFT posterior tibial pulse: biphasic Pulses Doppler - RIGHT dorsal pedis pulse: biphasic Pulses Doppler - RIGHT posterior tibial pulse: biphasic LLE: Deformity, Swelling, Limited movement, Sensation intact (SEMMES 6/10, TENDER TO HEEL) Musculoskeletal Musculoskeletal (WDL): Exceptions to WDL LLE: Deformity, Swelling, Limited movement, Sensation intact (SEMMES 6/10, TENDER TO HEEL) RLE: Deformity, Swelling, Limited movement, Sensation intact (SEMMES 8/10, TENDER TO HEEL) LOWER WOUND ASSESSMENT Skin Condition/Temp: Swollen, Cool (BLE) Score: Grade 2 Wound 12/06/231413 Venous Ulcer Pretibial Right;Lower (Active) Properties Placement Date 12/06/23 Placement Time 1413 Location Pretibial Wound Approximate Age at First Assessment (Weeks) 52 weeks Primary Wound Type Venous Ulcer Wound Location Orientation Right;Lower Wound Description (Comments) [facility] G2 Assessments 01/17/2024 2:00 PM Wound Image Lizzeth-Wound Assessment Hyperpigmented;Maceration;Scarred;Dry;Peeling Wound Length (cm) 27.5 cm (CLUSTER, SLIGHT ANGLE) Wound Width (cm) 23 cm Wound Surface Area (cm^2) 632.5 cm^2 Wound Depth (cm) 0.1 cm Wound Volume (cm^3) 63.25 cm^3 Wound Healing % 58 Drainage Description Serous (ACTIVELY WEEPING, NO DRESSING) Drainage Amount Small (WITH CLEANSING) Odor None Wound Bed Granulation (%) 5 % Wound Bed Slough (%) 95 % Wound 12/06/23 141 Venous Ulcer Pretibial Left;Lower (Active) Properties Placement Date 12/06/23 Placement Time 1414 Location Pretibial Wound Approximate Age at First Assessment (Weeks) 52 weeks Primary Wound Type Venous Ulcer Wound Location Orientation Left;Lower Wound Description (Comments) [facility] G2 Assessments 01/17/2024 2:00 PM Wound Image Lizzeth-Wound Assessment Hyperpigmented;Macerated;Scarred;Dry;Peeling Wound Length (cm) 29.6 cm (MEDIAL ASPECT OF CLUSTER) Wound Width (cm) 21.8 cm Wound Surface Area (cm^2) 645.28 cm^2 Wound Depth (cm) 0.1 cm Wound Volume (cm^3) 64.528 cm^3 Wound Healing % 47 Drainage Description Serous (NO DRESSING, ACTIVELY WEEPING) Odor None Wound Bed Granulation (%) 5 % Wound Bed Slough (%) 95 % Assessment and Plan: Chronic venous hypertension (idiopathic) with ulcer of bilateral lower extremity (code) (hcc) (primary encounter diagnosis) Non-pressure chronic ulcer of other part of left lower leg with fat layer exposed (hcc) Non-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 (hcc) Secondary lymphedema Type 2 diabetes mellitus with other skin ulcer (code) (hcc) group home current use of insulin (hcc) PLEASE UPDATE EACH WOUND ORDER WITH THE ASSOCIATED WOUND Orders Placed This Encounter WOUND DRESSING CHANGE Order Comments: RIGHT LOWER EXTREMITY AND LEFT LOWER EXTREMITY ULCERS: SHOWER WITH YOUR DRESSINGS PROTECTED/COVERED CLEANSE ULCERS WITH NORMAL SALINE APPLY SILVADENE TO ULCER AND INTACT SKIN, RUB IN LIKE A LOTION COVER WITH DRY DRESSING AND ROLL GAUZE CHANGE DRESSING DAILY AND NEEDED Apply lymphedema pumps to both of your legs at 40mm/Hg for 30-60 minutes 2-3 times a day Elevate your legs above the level of your heart and do ankle pumps and circles. Take 1/2 tab of Multi-vitamin twice a day, Vitamin D3 5000 international unit(s) daily and eat highprotein foods to help promote wound healing. If you have questions or concerns: Wednesday-Wednesday 8am-4:30pm, call the [facility] at [phone]. After 4:30pm, on weekends or holidays, call [facility] at [phone] and have the physician operator weapon locating radar paged. Physician Plan: Exam Discussed diagnosis and treatment with patient No debridement was performed to the right or left lower extremity ulcerations. Discussed the importance of decreasing swelling in the legs to allow these wounds to heal. Patient states that his lymphedema pumps broke and he is waiting on a replacement part. Advised patient to elevate his legs is much as possible and resting and frequently perform ankle pumps and circles to help with edema control. Patient requests not to be in wraps. Will prescribe silvadene for patient to apply daily to the ulcers with gauze dressings. Call if problems or concerns arise. Follow up in 2-3 weeks. Treatment Note please see attached After Visit Summary Written patient dismissal instructions given to patient. Thank you for choosing [facility] and allowing us to help heal your wounds. Roz Baker AGE: [age] year old GENDER: male : 1950 TODAY'S DATE: 01/17/2024 ICD-10 CODES Chronic venous hypertension (idiopathic) with ulcer of bilateral lower extremity (code) (hcc) (primary encounter diagnosis) Non-pressure chronic ulcer of other part of left lower leg with fat layer exposed (hcc) Non-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 (hcc) Secondary lymphedema Type 2 diabetes mellitus with other skin ulcer (code) (hcc) historical site guide current use of insulin (hcc) documented in this encounterSal[facility] Instructions* Patient Instructions* Oksana Obando RN - 01/17/2024 2:41 PM EDT RIGHT LOWER EXTREMITY AND LEFT LOWER EXTREMITY ULCERS: SHOWER WITH YOUR DRESSINGS PROTECTED/COVERED CLEANSE ULCERS WITH NORMAL SALINE APPLY SILVADENE TO ULCER AND INTACT SKIN, RUB IN LIKE A LOTION COVER WITH DRY DRESSING AND ROLL GAUZE CHANGE DRESSING DAILY AND NEEDED Apply lymphedema pumps to both of your legs at 40mm/Hg for 30-60 minutes 2-3 times a day Elevate your legs above the level of your heart and do ankle pumps and circles. Take 1/2 tab of Multi-vitamin twice a day, Vitamin D3 5000 international unit(s) daily and eat highprotein foods to help promote wound healing. If you have questions or concerns: Wednesday-Wednesday 8am-4:30pm, call the [facility] at [phone]. After 4:30pm, on weekends or holidays, call [facility] at [phone] and have the physician operator weapon locating radar paged. A prescription for silvadene was sent to [facility] with patient. documented in this encounterSalem [facility]05-[facility] Nurse Note* Sallie Estrella LPN - 01/17/2024 2:18 PM EDT WOUND ASSESSMENT COMPLETED BY FABY REESE RN. PT DOES NOT WANT COMPRESSION WRAPS BACK ON ANYMORE DUE TO THE DRAINAGE AND THEY GET WET BY THE NEXT DAY AND HE DOESN'T LIKE THAT. PT DID NOT HAVE ANYDRESSINGS IN PLACE TO BLE TODAY. [facility]04-23-2024 Telephone encounter Note* Telephone Encounter - Oksana Obando RN - 01/04/2024 1:51 PM EDT TC TO RODNEY AT [facility] TO CHECK THE STATUS OF PT. SHE STATES PT HAD TO BE CANCELED YESTERDAYDUE TO NOT HAVING A RIDE. SHE STATES HIS COMPRESSION WRAPS WERE REMOVED LAST WEDNESDAY DUE TO THEM BEING SOAKED AND THEY HAVE BEEN FOLLOWING THE PRN ORDERS SINCE THEN. SHE STATES WRAPS WERE APPLIED YESTERDAY AND WITHIN 3 HOURS HE HAD THEM CUT OFF. INQUIRED IF SHE KNEW ANYTHING ABOUT LYMPHEDEMA PUMPS AND SHE STATES SHE DOESN'T BUT IF CONTACT INFORMATION IS SENT TO HER SHE WILL FOLLOW UP ON THEM. CONTACT INFO FOR KEENAN PURDY WITH [employer] WAS FAXED TO HER. [facility]04-23-2024 Miscellaneous Notes* Telephone Encounter - Oksana Obando RN - 01/04/2024 1:51 PM EDT TC TO RODNEY AT [facility] TO CHECK THE STATUS OF PT. SHE STATES PT HAD TO BE CANCELED YESTERDAYDUE TO NOT HAVING A RIDE. SHE STATES HIS COMPRESSION WRAPS WERE REMOVED LAST WEDNESDAY DUE TO THEM BEING SOAKED AND THEY HAVE BEEN FOLLOWING THE PRN ORDERS SINCE THEN. SHE STATES WRAPS WERE APPLIED YESTERDAY AND WITHIN 3 HOURS HE HAD THEM CUT OFF. INQUIRED IF SHE KNEW ANYTHING ABOUT LYMPHEDEMA PUMPS AND SHE STATES SHE DOESN'T BUT IF CONTACT INFORMATION IS SENT TO HER SHE WILL FOLLOW UP ON THEM. CONTACT INFO FOR KEENAN PURDY WITH [employer] WAS FAXED TO HER. * Telephone Encounter - Oksana Obando RN - 01/03/2024 4:39 PM EDT TC TO LAMAR AT [facility] AT [facility] TO ENSURE THAT COMPRESSION WRAPS HAVE BEEN REMOVED AND PRN ORDERS ARE BEING FOLLOWED. REQUESTED RETURN CALL TO [facility] TO NOTIFY. documented in this encounterSalem [facility]04-22-2024 Telephone encounter Note * Telephone Encounter - Oksana Obando RN - 01/03/2024 4:39 PM EDT TC TO VM AT [facility] AT [facility] TO ENSURE THAT COMPRESSION WRAPS HAVE BEEN REMOVED AND PRN ORDERS ARE BEING FOLLOWED. REQUESTED RETURN CALL TO [facility] TO NOTIFY. [facility]04-15-2024 Nurse Note* Sallie Estrella LPN - 12/27/2023 3:19 PM EDT DISCHARGE DRESSING APPLIED BY GWENDOLYN DUBOIS RN and SIMI KERN RN PER PHYSICIAN ORDER * Faby Reese RN - 12/27/2023 2:12 PM EDT WOUND ASSESSMENT COMPLETED BY JYOTHI GAR RN. PT STATES HE WAS IN THE HOSPITAL LAST WEEK AND DR. OLIVIA PLACED WRAPS AND PT HAS BEEN TAKING WRAPS OFF BECAUSE OF HIS FEET BURNING. PT STATES THAT HE THOUGHT ABOUT JUST CUTTING TO FOOT PORTION OF THE WRAP OFF WELL AND ASKING IF WE CAN ONLY WRAP THELEGS AND NOT HIS FEET WITH COMPRESSION. documented in this encounterSalem City Hospital04-15-2024 History of Present illness Narrative* Yoli Echavarria DPM - 12/27/2023 3:07 PM EDTSummary: Wound Healing Center Progress Note Images from the original note were not included. Wound Care Progress Note Subjective: Patient presents with: Wound Care HISTORY of PRESENT ILLNESS HPI Roz Baker is a 73 year old male who presents today for wound/ulcer evaluation. He states that heis feeling well. He denies nausea, vomiting, fever, chills. Patient states that he took off his wraps because they got soaked with drainage. History of Wound Context: Venous ulcer PAST MEDICAL HISTORY Diagnosis Date Acute duodenal ulcer with hemorrhage 2022 Acute respiratory failure with hypoxia (HCC) Atrial fibrillation (HCC) 2022 eliquis stopped with large duodenal ulcer CHF exacerbation (HCC) Chronic kidney disease Electronic Maintenance Supervisor Dr. Julianne Dumas COVID-19 Diabetes mellitus Type II ([facility]) Difficulty in walking, not elsewhere classified Essential hypertension HFrEF (heart failure with reduced ejection fraction) ([facility]) History of echocardiogram 10/26/2022 LVEF is normal, estimated at 55% to 60%. There is mild mitral and tricuspid regurgitation. History of echocardiogram 05/18/2023 EF is 50%. LVH is noted. Moderate MR. ANASTACIA is 2.8. Trace GA and AR. Mild to Moderate TR. Iron deficiency anemia historical site guide current use of insulin (HCC) Morbid obesity (HCC) Muscle weakness (generalized) Need for assistance with personal care Nonalcoholic steatohepatitis (PEREZ) Unsteadiness on feet PAST SURGICAL HISTORY Procedure Laterality Date APPENDECTOMY LEG SURGERY HX ALLERGIES Allergen Reactions Codeine Unknown MEDICATIONS Current Outpatient Medications on File Prior to Visit Medication Sig cyclobenzaprine (FLEXERIL) 5 mg tablet Take 5 mg by mouth three times a day as needed for muscle spasm. ammonium lactate (LAC-HYDRIN FIVE) 5 % lotn Apply 1 Each to affected area once daily. TO BLE hydrALAZINE (APRESOLINE) 25 mg tablet Take 1 tablet by mouth every 8 hours. (Patient taking differently: Take 25 mg by mouth every 8 hours. HOLD BP <100/60) isosorbide mononitrate ER (IMDUR) 30 mg 24 hr tablet Take 1 tablet by mouth once daily. (Patient taking differently: Take 30 mg by mouth once daily. HOLD BP <100/60) metoprolol tartrate, short acting, 75 mg tab Take 1 tablet by mouth every 12 hours. (Patient takingdifferently: Take 75 mg by mouth every 12 hours. HOLD FOR BP <100/60) furosemide (LASIX) 80 mg tablet Take 0.5 tablets by mouth once daily. Patient should start on November 11, 2023. tuberculin skin test PPD (APLISOL) 5 tub. unit /0.1 mL injection 5 Units by INTRADERMAL route one time only. (Patient not taking: Reported on 12/01/2023) acetaminophen 650 mg CR tablet Take 650 mg by mouth every 8 hours as needed for pain. insulin lispro (HUMALOG KWIKPEN) 100 unit/mL pen Inject 1 Units subcutaneously two times a day. Sliding scale: BS 151-200= 1 UNITS BS 201-250= 2 UNITS BS 251-300= 3 UNITS BS 301-350= 4 UNITS BS 351-999= 5 UNITS insulin glargine in syringe 1 mL (LANTUS SOLOSTAR, BASAGLAR KWIKPEN) Inject 4 Units subcutaneously daily at bedtime. GLUCAGON SUBCUTANEOUS Inject 1 mg subcutaneously as needed (hypoglycemia). ferrous sulfate 325 mg (65 mg iron) tablet Take 1 tablet by mouth once daily. pantoprazole DR (PROTONIX) 40 mg tablet Take 1 tablet by mouth two times a day. calcitriol (ROCALTROL) 0.25 mcg capsule Take 1 tablet by mouth every afternoon. No current facility-administered medications on file prior to visit. Objective: BP 168/90 Pulse 91 Temp 36.5 C (97.7 F) Resp 18 Last 3 Encounter Wt Readings: Date: Wt: 12/01/2023 124.7 kg (275 lb) 11/05/2023 128.8 kg (283 lb 15.2 oz) 11/05/2023 134.8 kg (297 lb 3.2 oz) PHYSICAL EXAM Physical Exam Constitutional: General: He is not in acute distress. Skin: Capillary Refill: Capillary refill takes 2 to 3 seconds. Neurological: Mental Status: He is alert and oriented to person, place, and time. Peripheral Vascular R Calf Circumference (cm): 51.7 cm L Calf Circumference (cm): 48.0 cm R Ankle Measurement (cm): 36.0 cm L Ankle Measurement (cm): 34.6 cm Hemosiderin Staining Present: Yes, Left, Right Hair growth to LE present: Yes (HAIR GROWTH TO LEGS,NOT TO TOES) Pulses Palpation - LEFT dorsal pedis pulse: +1 Pulses Palpation - LEFT posterior tibial pulse: (FAINT, DUE TO EDEMA) Pulses Palpation - RIGHT dorsal pedis pulse: +1 Pulses Palpation - RIGHT posterior tibial pulse: (FAINT DUE TO EDEMA) Pulses Doppler - LEFT dorsal pedis pulse: biphasic Pulses Doppler - LEFT posterior tibial pulse: biphasic Pulses Doppler - RIGHT dorsal pedis pulse: biphasic Pulses Doppler - RIGHT posterior tibial pulse: biphasic LLE: Deformity, Swelling, Limited movement, Sensation intact (SEMMES 6/10, TENDER TO HEEL) Musculoskeletal Musculoskeletal (WDL): Exceptions to WDL LLE: Deformity, Swelling, Limited movement, Sensation intact (SEMMES 6/10, TENDER TO HEEL) RLE: Deformity, Swelling, Limited movement, Sensation intact (SEMMES 8/10, TENDER TO HEEL) LOWER WOUND ASSESSMENT Skin Condition/Temp: Swollen, Cool (BLE) Score: Grade 2 Wound 12/06/231413 Venous Ulcer Pretibial Right;Lower (Active) Properties Placement Date 12/06/23 Placement Time 141 Location Pretibial Wound Approximate Age at First Assessment (Weeks) 52 weeks Primary Wound Type Venous Ulcer Wound Location Orientation Right;Lower Wound Description (Comments) [facility] G2 Assessments 12/27/2023 2:00 PM Wound Image Lizzeth-Wound Assessment Dry;Peeling;Hyperpigmented;Macerated;Denuded Wound Length (cm) 25 cm Wound Width (cm) 29 cm Wound Surface Area (cm^2) 725 cm^2 Wound Depth (cm) 0.1 cm Wound Volume (cm^3) 72.5 cm^3 Wound Healing % 52 Drainage Description Serous (ACTIVELY WEEPING, NO DRESSING IN PLACE) Drainage Amount Copious Odor None Wound Bed Granulation (%) 75 % Wound Bed Slough (%) 25 % Wound 12/06/231414 Venous Ulcer Pretibial Left;Lower (Active) Properties Placement Date 12/06/23 Placement Time 1414 Location Pretibial Wound Approximate Age at First Assessment (Weeks) 52 weeks Primary Wound Type Venous Ulcer Wound Location Orientation Left;Lower Wound Description (Comments) [facility] G2 Assessments 12/27/2023 2:00 PM Wound Image Lizzeth-Wound Assessment Dry;Hyperpigmented;Peeling;Macerated;Denuded Wound Length (cm) 24.5 cm Wound Width (cm) 34.6 cm Wound Surface Area (cm^2) 847.7 cm^2 Wound Depth (cm) 0.1 cm Wound Volume (cm^3) 84.77 cm^3 Wound Healing % 30 Drainage Description Sanguineous (ACTIVELY WEEPING) Drainage Amount Copious (NO DRESSING IN PLACE) Odor None Wound Bed Granulation (%) 90 % Wound Bed Slough (%) 10 % Wound 12/06/23 141 Venous Ulcer Foot Right;Dorsal (Active) Properties Placement Date 12/06/23 Placement Time 141 Location Foot Wound Approximate Age at First Assessment (Weeks) 52 weeks Primary Wound Type Venous Ulcer Wound Location Orientation Right;Dorsal Wound Description (Comments) [facility] G2 Assessments 12/27/2023 2:00 PM Wound Image Lizzeth-Wound Assessment Peeling;Hyperpigmented Wound Length (cm) 4.5 cm Wound Width (cm) 4 cm Wound Surface Area (cm^2) 18 cm^2 Wound Depth (cm) 0.1 cm Wound Volume (cm^3) 1.8 cm^3 Wound Healing % -260 Drainage Description Serosanguineous (WITH CLEANSING, NO DRESSING) Drainage Amount Small Odor None Wound Bed Granulation (%) 50 % Wound Bed Slough (%) 50 % Wound 12/27/23 1430 Venous Ulcer Foot Left;Dorsal (Active) Properties Placement Date 12/27/23 Placement Time 1430 Location Foot Wound Approximate Age at First Assessment (Weeks) 1 weeks Primary Wound Type Venous Ulcer Wound Location Orientation Left;Dorsal Wound Description (Comments) [facility] G1 Assessments 12/27/2023 2:31 PM Wound Image Lizzteh-Wound Assessment Hyperpigmented;Moist ;Peeling Wound Length (cm) 4 cm Wound Width (cm) 6.1 cm Wound Surface Area (cm^2) 24.4 cm^2 Wound Depth (cm) 0.1 cm Wound Volume (cm^3) 2.44 cm^3 Drainage Description Serous Drainage Amount Copious (NO DRESSING IN PLACE, ACTIVELY WEEPING) Odor None Wound Bed Granulation (%) 0 % Wound Bed Slough (%) 100 % Assessment and Plan: Chronic venous hypertension (idiopathic) with ulcer of bilateral lower extremity (code) ([facility]) (primary encounter diagnosis) Non-pressure chronic ulcer of other part of left lower leg with fat layer exposed ([facility]) Non-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 ([facility]) Secondary lymphedema Type 2 diabetes mellitus with other skin ulcer (code) ([facility]) group home current use of insulin ([facility]) Diabetic polyneuropathy associated with type 2 diabetes mellitus ([facility]) Chronic foot ulcer, right, with fat layer exposed ([facility]) Ulcer of foot, left, limited to breakdown of skin ([facility]) PLEASE UPDATE EACH WOUND ORDER WITH THE ASSOCIATED WOUND Orders Placed This Encounter WOUND DRESSING CHANGE Order Comments: RIGHT LOWER EXTREMITY AND DORSAL FOOT AND LEFT LOWER EXTREMITY AND DORSAL FOOT ULCERS: Shower with dressing protected/covered Cleanse ulcers with normal saline Apply 2 layer compression bandage system Calamine Apply non adhesive foam between Calamine layers as needed May pad ankle/achilles with felt/foam or cast padding as needed Change weekly at [facility] and as needed If problems with compression and you are instructed, remove compression wrap, cleanse the ulcer with saline, apply adaptic then alginate, cover with dry dressing and change dressing daily and as needed. Wear your tubigrip for compression. Apply lymphedema pumps to both of your legs at 40mm/Hg for 30-60 minutes 2-3 times a day ONCE OBTAINED (order placed today) Elevate your legs above the level of your heart and do ankle pumps and circles. Take 1/2 tab of Multi-vitamin twice a day, Vitamin D3 5000 international unit(s) daily and eat highprotein foods to help promote wound healing. If you have questions or concerns: Wednesday-Wednesday 8am-4:30pm, call the [facility] at [phone]. After 4:30pm, on weekends or holidays, call [facility] at [phone] and have the physician operator weapon locating radar paged. Physician Plan: Exam Discussed diagnosis and treatment with patient No debridement was performed to the right or left lower extremity ulcerations. Discussed the importance of decreasing swelling in the legs to allow these wounds to heal. Advised patient to elevate his legs is much as possible and resting and frequently perform ankle pumps and circles to help with edema control. We will apply a calamine wrap to the right and left lower extremity ulcerations with foam dressing between the layers of the wrap to help absorb drainage. Call if problems or concerns arise. If the wraps have to be removed for any reason, the patient wasgiven dressing orders for daily dressing changes with an alginate and dry dressing to the wounds. Call if problems or concerns arise. Follow up in one week. Treatment Note please see attached After Visit Summary Written patient dismissal instructions given to patient. Thank you for choosing [facility] and allowing us to help heal your wounds. Roz Baker AGE: [age] year old GENDER: male : 1950 TODAY'S DATE: 12/27/2023 ICD-10 CODES Chronic venous hypertension (idiopathic) with ulcer of bilateral lower extremity (code) ([facility]) (primary encounter diagnosis) Non-pressure chronic ulcer of other part of left lower leg with fat layer exposed ([facility]) Non-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 ([facility]) Secondary lymphedema Type 2 diabetes mellitus with other skin ulcer (code) ([facility]) historical site guide current use of insulin ([facility]) Diabetic polyneuropathy associated with type 2 diabetes mellitus ([facility]) Chronic foot ulcer, right, with fat layer exposed ([facility]) Ulcer of foot, left, limited to breakdown of skin ([facility]) [facility] Instructions* Patient Instructions* Oksana Obando RN - 12/27/2023 2:11 PM EDT RIGHT LOWER EXTREMITY AND DORSAL FOOT AND LEFT LOWER EXTREMITY AND DORSAL FOOT ULCERS: Shower with dressing protected/covered Cleanse ulcers with normal saline Apply 2 layer compression bandage system Calamine Apply non adhesive foam between Calamine layers as needed May pad ankle/achilles with felt/foam or cast padding as needed Change weekly at [facility] and as needed If problems with compression and you are instructed, remove compression wrap, cleanse the ulcer with saline, apply adaptic then alginate, cover with dry dressing and change dressing daily and as needed. Wear your tubigrip for compression. Apply lymphedema pumps to both of your legs at 40mm/Hg for 30-60 minutes 2-3 times a day ONCE OBTAINED (order placed today) Elevate your legs above the level of your heart and do ankle pumps and circles. Take 1/2 tab of Multi-vitamin twice a day, Vitamin D3 5000 international unit(s) daily and eat highprotein foods to help promote wound healing. If you have questions or concerns: Wednesday-Wednesday 8am-4:30pm, call the [facility] at [phone]. After 4:30pm, on weekends or holidays, call [facility] at [phone] and have the physician operator weapon locating radar paged. documented [facility]04[facility]24 Miscellaneous Notes* Telephone Encounter - Oksana Obando RN - 12/14/2023 9:26 AM EDT TC TO [facility] [employer] TO CHECK ON THE STATUS OF PT'S LYMPHEDEMA PUMPS, HE STATES HE HAS ALREADY COMPLETED THE INTAKE WITH THE PT AND ADVISED HIM OF HIS CO-PAY AND ALL HE NEEDS IS 28 DAYS OF [facility]. ADVISED HIM THAT PT HAS BEEN IN SKILLED CARE WITH [facility] AND THAT THEY SHOULD BE ABLE TO PROVIDE HIM WITH NOTES PRIOR TO PT STARTING AT THE [facility] OTHERWISE, [facility] WILL CONTINUE TO SEND NOTES FROM EACH VISIT UNTIL HE HAS WHAT HE NEEDS. HE WILL CALL [facility]. documented in this [facility]Sal[facility]04-[facility] Nurse Note* Gwendolyn Dubois RN - 12/13/2023 3:08 PM EDT DISCHARGE DRESSING APPLIED BY SIMI KERN RN PER PHYSICIAN ORDER * Sallie Estrella LPN - 12/13/2023 2:07 PM EDT WOUND ASSESSMENT COMPLETED BY LILIANA ALLEN LPN CHT. Pt had an shobha wrap over the calamine layer of the wrap on the LLE today. Pt states the wrap was too tight on the LLE and he had to have the outer layer of the wrap cut off last Wednesday morning. The pink calamine layer is dried and adhered to the right ankle area. Pt had to cut part of the coban layer on the RLE due to the wrap was folded on the bottom of his foot. Pt had a hole in the compression wrap on the right medial ankle. Calamine layer to the LLE is really dried an adhered to leg. documented in this encounterSal[facility]04-[facility]24 History of Present illness Narrative* Yoli Echavarria DPM - 12/13/2023 2:48 PM EDTSummary: Wound Healing Center Progress Note Images from the original note were not included. Wound Care Progress Note Subjective: Patient presents with: Wound Check HISTORY of PRESENT ILLNESS HPI Roz Baker is a 73 year old male who presents today for wound/ulcer evaluation. He states that heis feeling well. He denies nausea, vomiting, fever, chills. He states that the wraps felt tight andhe had to cut the outer part of the wrap this past Wednesday. History of Wound Context: Venous ulcer PAST MEDICAL HISTORY Diagnosis Date Acute duodenal ulcer with hemorrhage Acute respiratory failure with hypoxia ([facility]) Atrial fibrillation ([facility]) CHF exacerbation ([facility]) Chronic kidney disease Electronic Maintenance Supervisor Dr. Julianne Dumas COVID-19 Diabetes mellitus Type II ([facility]) Difficulty in walking, not elsewhere classified Essential hypertension HFrEF (heart failure with reduced ejection fraction) ([facility]) History of echocardiogram 10/26/2022 LVEF is normal, estimated at 55% to 60%. There is mild mitral and tricuspid regurgitation. History of echocardiogram 05/18/2023 EF is 50%. LVH is noted. Moderate MR. ANASTACIA is 2.8. Trace GA and AR. Mild to Moderate TR. Iron deficiency anemia historical site guide (current) use of anticoagulants Eliquis 2.5 mg BID. historical site guide current use of insulin ([facility]) Morbid obesity ([facility]) Muscle weakness (generalized) Need for assistance with personal care Nonalcoholic steatohepatitis (PREEZ) Unsteadiness on feet PAST SURGICAL HISTORY Procedure Laterality Date APPENDECTOMY LEG SURGERY HX ALLERGIES Allergen Reactions Codeine Unknown MEDICATIONS Current Outpatient Medications on File Prior to Visit Medication Sig cyclobenzaprine (FLEXERIL) 5 mg tablet Take 5 mg by mouth three times a day as needed for muscle spasm. ammonium lactate (LAC-HYDRIN FIVE) 5 % lotn Apply 1 Each to affected area once daily. TO BLE hydrALAZINE (APRESOLINE) 25 mg tablet Take 1 tablet by mouth every 8 hours. (Patient taking differently: Take 25 mg by mouth every 8 hours. HOLD BP <100/60) isosorbide mononitrate ER (IMDUR) 30 mg 24 hr tablet Take 1 tablet by mouth once daily. (Patient taking differently: Take 30 mg by mouth once daily. HOLD BP <100/60) metoprolol tartrate, short acting, 75 mg tab Take 1 tablet by mouth every 12 hours. (Patient takingdifferently: Take 75 mg by mouth every 12 hours. HOLD FOR BP <100/60) furosemide (LASIX) 80 mg tablet Take 0.5 tablets by mouth once daily. Patient should start on November 11, 2023. tuberculin skin test PPD (APLISOL) 5 tub. unit /0.1 mL injection 5 Units by INTRADERMAL route one time only. (Patient not taking: Reported on 12/01/2023) acetaminophen 650 mg CR tablet Take 650 mg by mouth every 8 hours as needed for pain. insulin lispro (HUMALOG KWIKPEN) 100 unit/mL pen Inject 1 Units subcutaneously two times a day. Sliding scale: BS 151-200= 1 UNITS BS 201-250= 2 UNITS BS 251-300= 3 UNITS BS 301-350= 4 UNITS BS 351-999= 5 UNITS insulin glargine in syringe 1 mL (LANTUS SOLOSTAR, BASAGLAR KWIKPEN) Inject 4 Units subcutaneously daily at bedtime. GLUCAGON SUBCUTANEOUS Inject 1 mg subcutaneously as needed (hypoglycemia). ferrous sulfate 325 mg (65 mg iron) tablet Take 1 tablet by mouth once daily. pantoprazole DR (PROTONIX) 40 mg tablet Take 1 tablet by mouth two times a day. calcitriol (ROCALTROL) 0.25 mcg capsule Take 1 tablet by mouth every afternoon. No current facility-administered medications on file prior to visit. Objective: BP 165/89 Pulse 77 Temp 36.6 C (97.8 F) Resp 16 Last 3 Encounter Wt Readings: Date: Wt: 12/01/2023 124.7 kg (275 lb) 11/05/2023 128.8 kg (283 lb 15.2 oz) 11/05/2023 134.8 kg (297 lb 3.2 oz) PHYSICAL EXAM Physical Exam Constitutional: General: He is not in acute distress. Skin: Capillary Refill: Capillary refill takes 2 to 3 seconds. Neurological: Mental Status: He is alert and oriented to person, place, and time. Peripheral Vascular R Calf Circumference (cm): 51.3 cm L Calf Circumference (cm): 49.3 cm R Ankle Measurement (cm): 37.9 cm L Ankle Measurement (cm): 38.6 cm Hemosiderin Staining Present: Yes, Left, Right Hair growth to LE present: Yes (HAIR GROWTH TO LEGS,NOT TO TOES) Pulses Palpation - LEFT dorsal pedis pulse: +1 Pulses Palpation - LEFT posterior tibial pulse: (FAINT, DUE TO EDEMA) Pulses Palpation - RIGHT dorsal pedis pulse: +1 Pulses Palpation - RIGHT posterior tibial pulse: (FAINT DUE TO EDEMA) Pulses Doppler - LEFT dorsal pedis pulse: biphasic Pulses Doppler - LEFT posterior tibial pulse: biphasic Pulses Doppler - RIGHT dorsal pedis pulse: biphasic Pulses Doppler - RIGHT posterior tibial pulse: biphasic LLE: Deformity, Swelling, Limited movement, Sensation intact (SEMMES 6/10, TENDER TO HEEL) Musculoskeletal Musculoskeletal (WDL): Exceptions to WDL LLE: Deformity, Swelling, Limited movement, Sensation intact (SEMMES 6/10, TENDER TO HEEL) RLE: Deformity, Swelling, Limited movement, Sensation intact (SEMMES 8/10, TENDER TO HEEL) LOWER WOUND ASSESSMENT Skin Condition/Temp: Swollen, Cool (BLE) Score: Grade 2 Wound 12/06/231413 Venous Ulcer Pretibial Right;Lower (Active) Properties Placement Date 12/06/23 Placement Time 1413 Location Pretibial Wound Approximate Age at First Assessment (Weeks) 52 weeks Primary Wound Type Venous Ulcer Wound Location Orientation Right;Lower Wound Description (Comments) [facility] G2 Assessments 12/13/2023 2:00 PM Wound Image Lizzeth-Wound Assessment Hyperpigmented;Maceration;Peeling Wound Length (cm) 16.4 cm Wound Width (cm) 34.4 cm Wound Surface Area (cm^2) 564.16 cm^2 Wound Depth (cm) 0.1 cm Wound Volume (cm^3) 56.416 cm^3 Wound Healing % 63 Drainage Description Serosanguineous (ACTIVELY WEEPING) Drainage Amount Large Odor None Wound Bed Granulation (%) 90 % Wound Bed Slough (%) 10 % Wound 12/06/23 141 Venous Ulcer Pretibial Left;Lower (Active) Properties Placement Date 12/06/23 Placement Time 1414 Location Pretibial Wound Approximate Age at First Assessment (Weeks) 52 weeks Primary Wound Type Venous Ulcer Wound Location Orientation Left;Lower Wound Description (Comments) [facility] G2 Assessments 12/13/2023 2:00 PM Wound Image Lizzeth-Wound Assessment Hyperpigmented;Maceration;Peeling Wound Length (cm) 24 cm Wound Width (cm) 31.2 cm Wound Surface Area (cm^2) 748.8 cm^2 Wound Depth (cm) 0.1 cm Wound Volume (cm^3) 74.88 cm^3 Wound Healing % 39 Drainage Description Serosanguineous (ACTIVELY WEEPING) Drainage Amount Copious Odor None Wound Bed Granulation (%) 90 % Wound Bed Slough (%) 10 % Wound 12/06/23 1416 Venous Ulcer Foot Right;Dorsal (Active) Properties Placement Date 12/06/23 Placement Time 1416 Location Foot Wound Approximate Age at First Assessment (Weeks) 52 weeks Primary Wound Type Venous Ulcer Wound Location Orientation Right;Dorsal Wound Description (Comments) [facility] G2 Assessments 12/13/2023 2:00 PM Wound Image Lizzeth-Wound Assessment Moist ;Peeling Wound Length (cm) 0 cm Wound Width (cm) 0 cm Wound Surface Area (cm^2) 0 cm^2 Wound Depth (cm) 0 cm Wound Volume (cm^3) 0 cm^3 Wound Healing % 100 Drainage Amount None Odor None Wound Bed Epithelium (%) 100 % Assessment and Plan: Chronic venous hypertension (idiopathic) with ulcer of bilateral lower extremity (code) ([facility]) (primary encounter diagnosis) Non-pressure chronic ulcer of other part of left lower leg with fat layer exposed ([facility]) Non-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 ([facility]) Non-pressure chronic ulcer of right heel and midfoot with fat layer exposed ([facility]) Secondary lymphedema Type 2 diabetes mellitus with other skin ulcer (code) ([facility]) historical site guide current use of insulin ([facility]) Diabetic polyneuropathy associated with type 2 diabetes mellitus ([facility]) PLEASE UPDATE EACH WOUND ORDER WITH THE ASSOCIATED WOUND Orders Placed This Encounter WOUND DRESSING CHANGE Order Comments: RIGHT LOWER EXTREMITY AND LEFT LOWER EXTREMITY ULCERS: Shower with dressing protected/covered Cleanse ulcers with normal saline Apply 2 layer compression bandage system Calamine Apply non adhesive foam between Calamine layers as needed May pad ankle/achilles with felt/foam or cast padding as needed Change weekly at [facility] and as needed If problems with compression and you are instructed, remove compression wrap, cleanse the ulcer with saline, apply adaptic then alginate, cover with dry dressing and change dressing daily and as needed. Wear your tubigrip for compression. Apply lymphedema pumps to both of your legs at 40mm/Hg for 30-60 minutes 2-3 times a day ONCE OBTAINED (order placed today) Elevate your legs above the level of your heart and do ankle pumps and circles. Take 1/2 tab of Multi-vitamin twice a day, Vitamin D3 5000 international unit(s) daily and eat highprotein foods to help promote wound healing. If you have questions or concerns: Wednesday-Wednesday 8am-4:30pm, call the [facility] at [phone]. After 4:30pm, on weekends or holidays, call [facility] at [phone] and have the physician operator weapon locating radar paged. Physician Plan: History and physical Discussed diagnosis and treatment with patient No debridement was performed to the right or left lower extremity ulcerations. The right dorsal foot ulceration has healed. Discussed the importance of decreasing swelling in the legs to allow these wounds to heal. Advised patient to elevate his legs is much as possible and resting and frequently perform ankle pumps and circles to help with edema control. We will apply a calamine wrap to the right and left lower extremity ulceration with foam dressing between the layers of the wrap to help absorb drainage. Call if problems or concerns arise. If the wraps have to be removed for any reason, the patient wasgiven dressing orders for daily dressing changes with an alginate and dry dressing to the wounds. Call if problems or concerns arise. Follow up in one week. Treatment Note please see attached After Visit Summary Written patient dismissal instructions given to patient. Thank you for choosing [facility] and allowing us to help heal your wounds. 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 ([facility]) Non-pressure chronic ulcer of right heel and midfoot with fat layer exposed ([facility]) Secondary lymphedema Type 2 diabetes mellitus with other skin ulcer (code) ([facility]) historical site guide current use of insulin ([facility]) Diabetic polyneuropathy associated with type 2 diabetes mellitus ([facility]) [facility] Instructions* Patient Instructions* Oksana Obando RN - 12/13/2023 2:07 PM EDT RIGHT LOWER EXTREMITY AND LEFT LOWER EXTREMITY ULCERS: Shower with dressing protected/covered Cleanse ulcers with normal saline Apply 2 layer compression bandage system Calamine Apply non adhesive foam between Calamine layers as needed May pad ankle/achilles with felt/foam or cast padding as needed Change weekly at [facility] and as needed If problems with compression and you are instructed, remove compression wrap, cleanse the ulcer with saline, apply adaptic then alginate, cover with dry dressing and change dressing daily and as needed. Wear your tubigrip for compression. Apply lymphedema pumps to both of your legs at 40mm/Hg for 30-60 minutes 2-3 times a day ONCE OBTAINED (order placed today) Elevate your legs above the level of your heart and do ankle pumps and circles. Take 1/2 tab of Multi-vitamin twice a day, Vitamin D3 5000 international unit(s) daily and eat highprotein foods to help promote wound healing. If you have questions or concerns: Wednesday-Wednesday 8am-4:30pm, call the [facility] at [phone]. After 4:30pm, on weekends or holidays, call [facility] at [phone] and have the physician operator weapon locating radar paged. [facility] Instructions* Patient Instructions* Simi Kern RN - 05/03/2024 11:29 AM EDT HEALED RIGHT LOWER EXTREMITY AND LEFT LOWER EXTREMITY ULCERS: Apply moisture cream to intact skin Medium single tubi clinical resource nurse BLE Elevate your legs above the level of your heart and do ankle pumps and circles. Take 1/2 tab of Multi-vitamin twice a day, Vitamin D3 5000 international unit(s) daily and eat highprotein foods to help promote wound healing. If you have questions or concerns: Wednesday-Wednesday 8am-4:30pm, call the [facility] at [phone]. After 4:30pm, on weekends or holidays, call [facility] at [phone] and have the physician operator weapon locating radar paged. Please pick up worker your [employer] at [facility] and bring them to your next [facility] appointment. Apply your lymphedema pumps to both of your legs at 40mm/Hg for 30-60 minutes 2- 3 times a day ONCE OBTAINED. AN ORDER FOR THE PUMPS WILL BE INITIATED at your last visit AND YOU SHOULD HEAR FROM THE SUPPLIER REGARDING DELIVERY AND INSTRUCTIONS. documented in this encounterSal[facility]04[facility] Nurse Note* Simi Kern RN - 04/06/2024 10:52 AM EDT DISCHARGE DRESSING APPLIED BY LILIANA ALLEN LPN, CHT PER PROVIDER ORDER * Jyothi Gar RN - 04/06/2024 10:09 AM EDT WOUND ASSESSMENT COMPLETED BY GWENDOLYN DUBOIS RN REPORTS BEING BACK HOME, DISCHARGED JAIL, REPORTS HAVING [facility] documented in this [facility] Nurse Note* Simi Kern RN - 12/06/2023 2:58 PM EDT DISCHARGE DRESSING APPLIED BY GWENDOLYN DUBOIS RN PER PHYSICIAN ORDER * Faby Reese RN - 12/06/2023 2:04 PM EDT WOUND ASSESSMENT COMPLETED BY JYOTHI GAR RN. documented in this [facility]03-25-2024 History of Present illness Narrative* Yoli Echavarria DPM - 12/06/2023 2:50 PM EDTSummary: Wound Healing Center History and Physical Images from the original note were not included. Wound Care Progress Note Subjective: Patient presents with: Wound Care HISTORY of PRESENT ILLNESS HPI Roz Baker is a 73 year old male who presents today for wound/ulcer evaluation. He states that hehas been battling leg swelling and wounds for the last 6-8 months. He states that he has tried manydifferent types of wraps and wound dressings and has not had success getting the wounds healed. He states that he hasn't been able to use compression stockings because he can't get them on easily. Patient states that he lives in assisted living at [facility]. He has a history of diabetes. History of Wound Context: Venous ulcer Wound/Ulcer Pain Timing/Severity: AMB ROOMING INTAKE FLOWSHEET DATA Risk Screening Do you have concerns about personal safety or safety in the home?: No Pain Pain Level: 4 Pain Location: (bilateral legs) Description: Tingling, Burning Frequency: Intermittent Intervention/Comfort measure: Medication PAST MEDICAL HISTORY Diagnosis Date Acute duodenal ulcer with hemorrhage Acute respiratory failure with hypoxia ([facility]) Atrial fibrillation ([facility]) CHF exacerbation ([facility]) Chronic kidney disease Electronic Maintenance Supervisor Dr. Julianne Dumas COVID-19 Diabetes mellitus Type II ([facility]) Difficulty in walking, not elsewhere classified Essential hypertension HFrEF (heart failure with reduced ejection fraction) ([facility]) History of echocardiogram 10/26/2022 LVEF is normal, estimated at 55% to 60%. There is mild mitral and tricuspid regurgitation. History of echocardiogram 05/18/2023 EF is 50%. LVH is noted. Moderate MR. ANASTACIA is 2.8. Trace GA and AR. Mild to Moderate TR. Iron deficiency anemia group home (current) use of anticoagulants Eliquis 2.5 mg BID. group home current use of insulin ([facility]) Morbid obesity ([facility]) Muscle weakness (generalized) Need for assistance with personal care Nonalcoholic steatohepatitis (PEREZ) Unsteadiness on feet PAST SURGICAL HISTORY Procedure Laterality Date APPENDECTOMY LEG SURGERY HX ALLERGIES Allergen Reactions Codeine Unknown MEDICATIONS Current Outpatient Medications on File Prior to Visit Medication Sig cyclobenzaprine (FLEXERIL) 5 mg tablet Take 5 mg by mouth three times a day as needed for muscle spasm. ammonium lactate (LAC-HYDRIN FIVE) 5 % lotn Apply 1 Each to affected area once daily. TO BLE hydrALAZINE (APRESOLINE) 25 mg tablet Take 1 tablet by mouth every 8 hours. (Patient taking differently: Take 25 mg by mouth every 8 hours. HOLD BP <100/60) isosorbide mononitrate ER (IMDUR) 30 mg 24 hr tablet Take 1 tablet by mouth once daily. (Patient taking differently: Take 30 mg by mouth once daily. HOLD BP <100/60) metoprolol tartrate, short acting, 75 mg tab Take 1 tablet by mouth every 12 hours. (Patient takingdifferently: Take 75 mg by mouth every 12 hours. HOLD FOR BP <100/60) furosemide (LASIX) 80 mg tablet Take 0.5 tablets by mouth once daily. Patient should start on November 11, 2023. tuberculin skin test PPD (APLISOL) 5 tub. unit /0.1 mL injection 5 Units by INTRADERMAL route one time only. (Patient not taking: Reported on 12/01/2023) acetaminophen 650 mg CR tablet Take 650 mg by mouth every 8 hours as needed for pain. insulin lispro (HUMALOG KWIKPEN) 100 unit/mL pen Inject 1 Units subcutaneously two times a day. Sliding scale: BS 151-200= 1 UNITS BS 201-250= 2 UNITS BS 251-300= 3 UNITS BS 301-350= 4 UNITS BS 351-999= 5 UNITS insulin glargine in syringe 1 mL (LANTUS SOLOSTAR, BASAGLAR KWIKPEN) Inject 4 Units subcutaneously daily at bedtime. GLUCAGON SUBCUTANEOUS Inject 1 mg subcutaneously as needed (hypoglycemia). ferrous sulfate 325 mg (65 mg iron) tablet Take 1 tablet by mouth once daily. pantoprazole DR (PROTONIX) 40 mg tablet Take 1 tablet by mouth two times a day. calcitriol (ROCALTROL) 0.25 mcg capsule Take 1 tablet by mouth every afternoon. No current facility-administered medications on file prior to visit. Objective: BP 151/77 Pulse 77 Temp 36.4 C (97.6 F) Resp 18 Last 3 Encounter Wt Readings: Date: Wt: 12/01/2023 124.7 kg (275 lb) 11/05/2023 128.8 kg (283 lb 15.2 oz) 11/05/2023 134.8 kg (297 lb 3.2 oz) PHYSICAL EXAM Physical Exam Constitutional: General: He is not in acute distress. Skin: Capillary Refill: Capillary refill takes 2 to 3 seconds. Neurological: Mental Status: He is alert and oriented to person, place, and time. Peripheral Vascular R Calf Circumference (cm): 56 cm L Calf Circumference (cm): 53 cm R Ankle Measurement (cm): 44.5 cm L Ankle Measurement (cm): 42 cm Hemosiderin Staining Present: Yes, Left, Right Hair growth to LE present: Yes (HAIR GROWTH TO LEGS,NOT TO TOES) Pulses Palpation - LEFT dorsal pedis pulse: +1 Pulses Palpation - LEFT posterior tibial pulse: (FAINT, DUE TO EDEMA) Pulses Palpation - RIGHT dorsal pedis pulse: +1 Pulses Palpation - RIGHT posterior tibial pulse: (FAINT DUE TO EDEMA) Pulses Doppler - LEFT dorsal pedis pulse: biphasic Pulses Doppler - LEFT posterior tibial pulse: biphasic Pulses Doppler - RIGHT dorsal pedis pulse: biphasic Pulses Doppler - RIGHT posterior tibial pulse: biphasic LLE: Deformity, Swelling, Limited movement, Sensation intact (SEMMES 6/10, TENDER TO HEEL) Musculoskeletal Musculoskeletal (WDL): Exceptions to WDL LLE: Deformity, Swelling, Limited movement, Sensation intact (SEMMES 6/10, TENDER TO HEEL) RLE: Deformity, Swelling, Limited movement, Sensation intact (SEMMES 8/10, TENDER TO HEEL) LOWER WOUND ASSESSMENT Skin Condition/Temp: Swollen, Cool (BLE) Score: Grade 2 Wound 12/06/231413 Pretibial Right;Lower (Active) Properties Placement Date 12/06/23 Placement Time 1413 Location Pretibial Wound Approximate Age at First Assessment (Weeks) 52 weeks Wound Location Orientation Right;Lower Wound Description (Comments) [facility] Assessments 12/06/2023 2:17 PM Wound Image Lizzeth-Wound Assessment Denuded;Macerated;Peeling;Hyperpigmented;Scarred (ACTIVELY WEEPING) Wound Length (cm) 27 cm Wound Width (cm) 56 cm Wound Surface Area (cm^2) 1512 cm^2 Wound Depth (cm) 0.1 cm Wound Volume (cm^3) 151.2 cm^3 Drainage Description Serous Drainage Amount Copious Odor None Wound Bed Slough (%) 100 % Wound 12/06/23 1415 Pretibial Left;Lower (Active) Properties Placement Date 12/06/23 Placement Time 1414 Location Pretibial Wound Approximate Age at First Assessment (Weeks) 52 weeks Wound Location Orientation Left;Lower Wound Description (Comments) [facility] Assessments 12/06/2023 2:21 PM Wound Image Lizzeth-Wound Assessment Denuded;Maceration;Scarred;Peeling (ACTIVELY WEEPING) Wound Length (cm) 23 cm Wound Width (cm) 53 cm Wound Surface Area (cm^2) 1219 cm^2 Wound Depth (cm) 0.1 cm Wound Volume (cm^3) 121.9 cm^3 Drainage Description Serous Drainage Amount Copious Odor None Wound Bed Granulation (%) 25 % Wound Bed Slough (%) 75 % Wound 12/06/23 1416 Foot Right;Dorsal (Active) Properties Placement Date 12/06/23 Placement Time 1416 Location Foot Wound Approximate Age at First Assessment (Weeks) 52 weeks Wound Location Orientation Right;Dorsal Wound Description (Comments) [facility] Assessments 12/06/2023 2:22 PM Wound Image Lizzeth-Wound Assessment Denuded;Maceration Wound Length (cm) 2 cm Wound Width (cm) 2.5 cm Wound Surface Area (cm^2) 5 cm^2 Wound Depth (cm) 0.1 cm Wound Volume (cm^3) 0.5 cm^3 Drainage Description Serous Drainage Amount Copious Odor None Wound Bed Granulation (%) 25 % Wound Bed Slough (%) 75 % Assessment and Plan: Chronic venous hypertension (idiopathic) with ulcer of bilateral lower extremity (code) ([facility]) Non-pressure chronic ulcer of other part of left lower leg with fat layer exposed ([facility]) (primary encounter diagnosis) Non-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 ([facility]) Non-pressure chronic ulcer of right heel and midfoot with fat layer exposed ([facility]) Secondary lymphedema Type 2 diabetes mellitus with other skin ulcer (code) ([facility]) group home current use of insulin ([facility]) Diabetic polyneuropathy associated with type 2 diabetes mellitus ([facility]) PLEASE UPDATE EACH WOUND ORDER WITH THE ASSOCIATED WOUND Orders Placed This Encounter WOUND DRESSING CHANGE Order Comments: RIGHT LOWER EXTREMITY AND DORSAL FOOT ULCERS AND LEFT LOWER EXTREMITY ULCERS: Shower with dressing protected/covered Cleanse ulcers with normal saline Apply 2 layer compression bandage system Calamine Apply non adhesive foam between Calamine layers as needed May pad ankle/achilles with felt/foam or cast padding as needed Change weekly at [facility] and as needed If problems with compression and you are instructed, remove compression wrap, cleanse the ulcer with saline, apply adaptic then alginate, cover with dry dressing and change dressing daily and as needed. Wear your tubigrip for compression. Apply lymphedema pumps to both of your legs at 40mm/Hg for 30-60 minutes 2-3 times a day ONCE OBTAINED (order placed today) Elevate your legs above the level of your heart and do ankle pumps and circles. Take 1/2 tab of Multi-vitamin twice a day, Vitamin D3 5000 international unit(s) daily and eat highprotein foods to help promote wound healing. If you have questions or concerns: Wednesday-Wednesday 8am-4:30pm, call the [facility] at [phone]. After 4:30pm, on weekends or holidays, call [facility] at [phone] and have the physician operator weapon locating radar paged. Physician Plan: History and physical Discussed diagnosis and treatment with patient No debridement was performed to the right or left lower extremity ulcerations. Discussed the importance of decreasing swelling in the legs to allow these wounds to heal. Discussed lymphedema pumps. Patient is agreeable to lymphedema pumps being ordered. Advised patient to elevate his legs is much as possible and resting and frequently perform ankle pumps and circles to help with edema control. Discussed compression wraps for the right and left lower extremity to help with edema control. Patient is agreeable to allowing us to try these for him today. We will apply a calamine wrap to the right and left lower extremity ulceration with Duramax dressing between the layers of the wrap to help absorb drainage. Call if problems or concerns arise. If the wraps have to be removed for any reason, the patient wasgiven dressing orders for daily dressing changes with an alginate and dry dressing to the wounds. Treatment Note please see attached After Visit Summary Written patient dismissal instructions given to patient. Thank you for choosing [facility] and allowing us to help heal your wounds. 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 layer exposed ([facility]) Secondary lymphedema Type 2 diabetes mellitus with other skin ulcer (code) ([facility]) group home current use of insulin ([facility]) Diabetic polyneuropathy associated with type 2 diabetes mellitus ([facility]) documented [facility] Instructions* Patient Instructions* Oksana Obando RN - 12/06/2023 2:48 PM EDT RIGHT LOWER EXTREMITY AND DORSAL FOOT ULCERS AND LEFT LOWER EXTREMITY ULCERS: Shower with dressing protected/covered Cleanse ulcers with normal saline Apply 2 layer compression bandage system Calamine Apply non adhesive foam between Calamine layers as needed May pad ankle/achilles with felt/foam or cast padding as needed Change weekly at [facility] and as needed If problems with compression and you are instructed, remove compression wrap, cleanse the ulcer with saline, apply adaptic then alginate, cover with dry dressing and change dressing daily and as needed. Wear your tubigrip for compression. Apply lymphedema pumps to both of your legs at 40mm/Hg for 30-60 minutes 2-3 times a day ONCE OBTAINED (order placed today) Elevate your legs above the level of your heart and do ankle pumps and circles. Take 1/2 tab of Multi-vitamin twice a day, Vitamin D3 5000 international unit(s) daily and eat highprotein foods to help promote wound healing. If you have questions or concerns: Wednesday-Wednesday 8am-4:30pm, call the [facility] at [phone]. After 4:30pm, on weekends or holidays, call [facility] at [phone] and have the physician operator weapon locating radar paged. documented in this encounterSal[facility]02-[facility] History of Present illness Narrative* [place] APRN.FARRAH - 11/05/2023 8:35 AM EST Date: November 05, 2023 Chief Complaint: [facility] Follow Up HISTORY OF PRESENT ILLNESS: Roz Baker is a 73 year old male with history of Afib, CHF, HTN, CKD, DM, and morbid obesity who presents for [facility] follow-up related to GI bleed, duodenal, ulcer, and CHF exacerbation. Patient's Eliquis was stopped in the hospital due to anemia related to GI bleed. In the hospital, the patient was recommended Watchman device due to risk of anticoagulation[facility]. Patient complains of shortness of breath and swelling since discharge from the hospital to [facility], [facility]. Patient complains that his swelling and shortness of breath have severely worsened over the past few days. Patient states that he has not been able to wear his typical pants, and has been only able to wear sweatpants due to severe leg swelling. Patient complains of water blisters on his lower legs due to severe edema. ALLERGIES Allergen Reactions Codeine Unknown PAST MEDICAL HISTORY: PAST MEDICAL HISTORY Diagnosis Date Atrial fibrillation ([facility]) CHF exacerbation ([facility]) Chronic kidney disease Electronic Maintenance Supervisor Dr. Julianne Dumas Diabetes mellitus Type II ([facility]) Essential hypertension HFrEF (heart failure with reduced ejection fraction) ([facility]) History of echocardiogram 10/26/2022 LVEF is normal, estimated at 55% to 60%. There is mild mitral and tricuspid regurgitation. History of echocardiogram 05/18/2023 EF is 50%. LVH is noted. Moderate MR. ANASTACIA is 2.8. Trace GA and AR. Mild to Moderate TR. group home (current) use of anticoagulants Eliquis 2.5 mg BID. Morbid obesity (HCC) PAST SURGICAL HISTORY Procedure Laterality Date APPENDECTOMY LEG SURGERY HX FAMILY HISTORY Problem Relation Age of Onset Dementia Mother Cancer Father other (Congestive Heart Failure) Brother SOCIAL HISTORY: Tobacco Use: 1 packs/day, for 30 years. Quit 09/13/1995. Types: Cigarettes Alcohol Use: Not Currently Drug Use: Not Currently (Occasional use of Marijuana.) Employer And Job Title: None on file Years Of Education Completed: Not specified Marital Status: Single MEDICATIONS: Current Outpatient Medications Medication Sig tuberculin skin test PPD (APLISOL) 5 tub. unit /0.1 mL injection 5 Units by INTRADERMAL route one time only. acetaminophen (TYLENOL) 325 mg tablet Take 650 mg by mouth every 8 hours as needed for pain. insulin lispro (HUMALOG KWIKPEN) 100 unit/mL pen Inject 1 Units subcutaneously as directed. Slidingscale insulin glargine in syringe 1 mL (LANTUS SOLOSTAR, BASAGLAR KWIKPEN) Inject 4 Units subcutaneously daily at bedtime. glucagon (GVOKE) 1 mg/0.2 mL injection Inject 1 mg subcutaneously as needed (hypoglycemia). hydrALAZINE (APRESOLINE) 10 mg tablet Take 2 tablets by mouth three times a day. torsemide (DEMADEX) 20 mg tablet Take 2 tablets by mouth two times a day. (Patient taking differently: Take 20 mg by mouth two times a day.) ferrous sulfate 325 mg (65 mg iron) tablet Take 1 tablet by mouth once daily. pantoprazole DR (PROTONIX) 40 mg tablet Take 1 tablet by mouth two times a day. calcitriol (ROCALTROL) 0.25 mcg capsule Take 1 tablet by mouth every afternoon. No current facility-administered medications for this visit. I have personally reviewed the patients past medical history including social, family, surgical, diagnostics, and medications. REVIEW OF SYSTEMS: Review of Systems Constitutional: Positive for fatigue. Negative for chills. Respiratory: Positive for cough and shortness of breath. Negative for chest tightness, wheezing andstridor. Cardiovascular: Positive for leg swelling. Negative for chest pain and palpitations. Gastrointestinal: Positive for abdominal distention. Negative for abdominal pain. Musculoskeletal: Positive for gait problem (uses wheelchair). Neurological: Negative for dizziness, syncope, weakness, light-headedness, numbness and headaches. Hematological: Bruises/bleeds easily. Psychiatric/Behavioral: Negative for confusion and hallucinations. PHYSICAL EXAMINATION: BP 142/78 (BP Site: Left Arm, BP Position: Sitting) Pulse 104 Resp 24 Ht 177.8 cm (5' 10) Wt 134.8 kg (297 lb 3.2 oz) SpO2 97% BMI 42.64 kg/m Last 3 Encounter BP Readings: Date: BP: 10/29/2023 77/39 10/25/2023 142/73 10/25/2023 157/92[manual b/p[ Last 3 Encounter Pulse Readings: Date: Pulse: 10/29/2023 92 10/25/2023 92 10/25/2023 116 Last 3 Encounter Wt Readings: Date: Wt: 10/25/2023 133.9 kg (295 lb 1.6 oz) 10/25/2023 120.2 kg (265 lb) 08/08/2023 128 kg (282 lb 3 oz) Physical Exam Constitutional: General: He is not in acute distress. Appearance: Normal appearance. He is obese. He is not diaphoretic. HENT: Head: Normocephalic and atraumatic. Mouth/Throat: Mouth: Mucous membranes are moist. Pharynx: Oropharynx is clear. Eyes: General: No scleral icterus. Conjunctiva/sclera: Conjunctivae normal. Neck: Vascular: No carotid bruit. Cardiovascular: Rate and Rhythm: Tachycardia present. Rhythm irregular. Pulses: Normal pulses. Radial pulses are 2+ on the right side and 2+ on the left side. Heart sounds: Murmur heard. Systolic murmur is present with a grade of 2/6. Pulmonary: Effort: Tachypnea present. Breath sounds: Examination of the right-lower field reveals decreased breath sounds. Examination ofthe left-lower field reveals decreased breath sounds. Decreased breath sounds present. Abdominal: General: Bowel sounds are normal. Palpations: Abdomen is soft. Tenderness: There is no right CVA tenderness or left CVA tenderness. Musculoskeletal: Cervical back: Normal range of motion and neck supple. No rigidity. Right lower le+ Edema present. Left lower le+ Edema present. Skin: General: Skin is warm and dry. Capillary Refill: Capillary refill takes less than 2 seconds. Coloration: Skin is not jaundiced. Findings: No bruising. Neurological: Mental Status: He is alert and oriented to person, place, and time. Mental status is at baseline. Psychiatric: Behavior: Behavior normal. Thought Content: Thought content normal. LABS: Glucose (mg/dL) Date Value 11/05/2023 185 2023 143 Potassium (mmol/L) Date Value 11/05/2023 3.8 2023 3.8 Sodium (mmol/L) Date Value 11/05/2023 135 2023 133 Chloride (mmol/L) Date Value 11/05/2023 100 2023 89 CO2 (mmol/L) Date Value 11/05/2023 24 2023 28 Creatinine (mg/dL) Date Value 11/05/2023 2.68 2023 3.97 BUN (mg/dL) Date Value 11/05/2023 71 2023 92 Anion Gap (mmol/L) Date Value 11/05/2023 11 2023 19.8 Calcium (mg/dL) Date Value 2023 8.4 Calcium, Total (mg/dL) Date Value 11/05/2023 7.7 Protein, Total (g/dL) Date Value 11/05/2023 5.1 05/23/2023 6.8 Albumin (g/dL) Date Value 11/05/2023 2.5 05/23/2023 3.1 Bilirubin, Total (mg/dL) Date Value 11/05/2023 0.6 05/23/2023 0.7 Alkaline Phosphatase (U/L) Date Value 11/05/2023 76 05/23/2023 62 AST (U/L) Date Value 11/05/2023 20 05/23/2023 13 ALT (U/L) Date Value 11/05/2023 40 05/23/2023 < 5 Hemoglobin (g/dL) Date Value 11/05/2023 8.0 2023 8.7 Hematocrit (%) Date Value 11/05/2023 24.5 2023 28.5 WBC Date Value 11/05/2023 15.86 k/uL 2023 6.4 x10(3) Cholesterol, Total (mg/dL) Date Value 01/28/2023 143 HDL Cholesterol (mg/dL) Date Value 01/28/2023 41 LDL (mg/dL) Date Value 01/28/2023 90 Triglyceride (mg/dL) Date Value 01/28/2023 61 EKG: Atrial fibrillation: HR 105 bpm. ASSESSMENT/PLAN: 1. Chronic heart failure with preserved ejection fraction (HFpEF) (HCC) - ICD9: 428.9, ICD10: I50.32 (primary diagnosis) - Hypervolemic with acute respiratory distress - Patient sent to the [facility] ED. 2. Paroxysmal atrial fibrillation (HCC) - ICD9: 427.31, ICD10: I48.0 - Referral sent to [facility] for Watchman Device. - ECG COMPLETE - CONSULT TO CARDIOTHORACIC SURGERY 3. Primary hypertension - ICD9: 401.9, ICD10: I10 - Inadequate control - Encouraged sodium restriction, DASH or Mediterranean diet - Recommend regular aerobic exercise - Discussed need for and benefit of weight loss. BMI 42.64 kg/(m^2) 4. Stage 4 chronic kidney disease (HCC) - ICD9: 585.4, ICD10: N18.4 - Counseled on low sodium diet - Managed by Electronic Maintenance Supervisor. 5. Class 3 severe obesity due to excess calories with serious comorbidity and body mass index (BMI)of 40.0 to 44.9 in adult (HCC) - ICD9: 278.01, V85.41, ICD10: E66.01, Z68.41 - Stable - Behavioral intervention Federico Park APRN.CNP Follow up after hospital discharge. Greater that 51% of my time was spent with ewbr-ju-iwxf conversation with the patient. I have discussed the recommended treatment, alternative therapies and other options in detail. I've discussed the best benefit and side effects of these recommended treatments. I've attempted to answer all the questions to the patient's satisfaction and understanding. After leaving the exam room, I went back into the patient's chart and coordinated care with my nurse ordering the proper testing and medicinal changes. Letter was performed with voice recognition algorithms and sent to the referring team. The chart was completed. Including the pre-exam, exam and post- exam, the total time spent in the patient's management was greater than 30 minutes. Federico Navarrete CNP have reviewed and agree with the information in the medical record. Federico Park APRN.CNP [facility]02[facility]20-2024 [facility]02-20-2024 [facility]02-19-2024 [facility]02-18-2024 [facility]02-17-2024 [facility]02-16-2024 [facility]02-16-2024 [facility]02-16-2024 [facility] 10-28-2023 [facility]02-14-2024 [facility]02-13-2024 [facility]12-23-2023 Nurse Progress note Nursing GG Entered On: 09/04/2023 11:05 EST Performed On: 09/04/2023 11:05 EST by CARMEN Grossman Nursing GG's OT GG Grid Eating : Independent Oral Hygiene : Independent Toilet Hygiene : Independent Toilet Transfer : Independent Upper Body Dressing : Independent Lying to sitting on side of bed : Independent Sit to stand : Independent Chair/gpb-ho-naqzr transfer : Independent CARMEN Grossman - 09/04/2023 11:05 EST Digitally Signed by CARMEN Grossman on 09/04/2023 11:05 AM [facility] [id number] Note Discharge Instructions Thank you for allowing [facility] to assist you with your healthcare needs. The following is importantdischarge information regarding your hospital visit. Your Care Team KAMRON LEPE MD Your Diagnosis Acute kidney injury superimposed on chronic kidney disease Debility HTN (hypertension) Hyperlipidemia Morbid obesity Septic joint of left knee joint Type 1 diabetes What to do next Scheduled Follow-Up Appointments Appointment Type When Where Contact InformationCV OV 09/30/2023 01:30 PM EST [facility] Follow Up Appointments Follow Up with JULIANNE DUMAS MD When 11/09/2023 02:45 PM EST Why: You will be seeing the [facility] - Nephrology follow up - Where: [address] [facility] [place] [address]- Follow Up with JAVI DOVER MD When 09/30/2023 01:30 PM EST Why: Cardio - Where: [address] [facility] [place] [address]- Follow Up with KAMRON LEPE MD When Within 5 to 7 days Why: Schedule appointment as soon as possible - Take Discharge Instructions to Dr Visit - Where: [address] [place] [address]- The Following Activity and Diet Have Been Ordered for You Discharge Activity - Ordered -- As instructed by therapy, Shower with assistance - Apply SHOBHA wraps on AM/off PM daily, this willhelp promote circulation - Incentive spirometer 10/hr while awake, be sure to take deeps breaths -,09/04/23 8:17:00 EST Discharge Driving Restrictions - Ordered -- No driving permitted, must be cleared by a physician -, 09/04/23 8:17:00 EST Discharge Diet - Ordered -- Type of Diet: Regular, No concentrated sweets - No added salt -, 09/04/23 8:17:00 EST The Following Equipment Has Been Ordered for You Discharge Home Equipment Discharge Blood Glucose Monitoring - Ordered -- When to Test: Before breakfast, and dinner - Keep a log and take to follow up PCP appt - Discharge Home Equipment - Ordered -- Walker; with wheels, 99 month(s), [facility] [id number], 08/30/23 11:45:00 EST Discharge Wound Care - Ordered -- Dorsal feet - Cleanse with normal saline, apply betamethasone, cover with foam daily and as needed - Left elbow: Cleanse with normal saline, apply transparent dressing weekly on Wednesdays -, 09/04/23 8:17:00 EST The Following Treatments Have Been Ordered for You Discharge Labs No qualifying data available. Discharge Radiology No qualifying data available. Other Therapies Discharge Blood Glucose Monitoring - Ordered -- When to Test: Before breakfast, and dinner - Keep a log and take to follow up PCP appt - Post Acute Orders Discharge Skin Breakdown Prevention - Ordered -- When to Check Skin: Every two hours, Elevate your heels while in bed, turn and reposition yourself while in bed, redistribute your weight while sitting up - Report any skin changes you notice - Discharge Weight Order - Ordered -- When to Weigh: Everyday, Report any changes of 2 lbs in 24 hours or 5 lbs in 1 week to your Physician - Someone Will Contact You Regarding These Home Health Referrals Consult Home Health - Aide - Ordered -- 09/04/23 8:17:00 EST, Aide Reason: Bathing assistance Consult Home Health - OT - Ordered -- 09/04/23 8:17:00 EST, Home Therapy Order: OT Eval & Treat, Home Therapy Instruction: Full weight bearing, Reason: General Debility Consult Home Health - PT - Ordered -- 09/04/23 8:17:00 EST, Home Therapy Order: PT Eval & Treat, Reason: General Debility, Home Therapy Instruction: Full weight bearing, Provided by [facility] [phone] Consult [facility] - RN - Ordered -- 09/04/23 8:17:00 EST, Reason: Disease management Medication management Allergies NKA Medications Please ask your primary doctor or pharmacist before taking any other medication not listed, including over the counter drugs, herbal medications, vitamins and or supplements as they may interact withyour home medications. What How Much When Why Instructions Last Dose New ammonium lactate topical Topical Two (2) times a day New apixaban (Eliquis 2.5 mg oral tablet) 1 tab(s) by mouth Two (2) times a day Pickup at [facility] New atorvastatin (atorvastatin 40 mg oral tablet) 1 tab(s) by mouth Daily at bedtime Pickup at [facility] New betamethasone topical (betamethasone dipropionate 0.05% topical ointment) 1 application Topical Every day Duration: 7 Days Pickup at [facility] New bumetanide (bumetanide 1 mg oral tablet) 2 tab(s) by mouth Two (2) times a day Pickup at [facility] New carvedilol (Coreg 12.5 mg oral tablet) 1 tab(s) by mouth Twice daily with meals Pickup at [facility] New docusate (Colace 100 mg oral capsule) 1 cap by mouth Two (2) times a day as needed for Constipation New hydrALAZINE (hydrALAZINE 50 mg oral tablet) 1 tab(s) by mouth Three (3) times a day Pickup at [facility] New isosorbide mononitrate (isosorbide mononitrate 30 mg oral tablet, extended release) 1 tab(s) by mouth Once a day before a meal Pickup at [facility] New magnesium hydroxide (Milk of Magnesia) 30 Milliliter by mouth Every day as needed for Constipation New polyethylene glycol 3350 by mouth Once a day as needed for Constipation New traMADol (traMADol 50 mg oral tablet) 2 tab(s) by mouth Two (2) times a day as needed for Pain, scale 7-10 HTN (hypertension) Hyperlipidemia Duration: 5 Days Pickup at [facility] Changed acetaminophen 650 Milligram by mouth Every 6 hours as needed for as needed for fever Changed calcitriol (calcitriol 0.25 mcg oral capsule) 1 cap by mouth Every day Pickup at [facility] Changed diclofenac topical (diclofenac 1% topical gel) 1 application Topical Two (2) times a day as needed for Pain Changed famotidine (famotidine 20 mg oral tablet) 1 tab(s) by mouth Once a day Changed gabapentin (gabapentin 100 mg oral capsule) 1 cap by mouth Every day Debility HTN (hypertension) Pickup at [facility] Changed gabapentin (gabapentin 300 mg oral capsule) 1 cap by mouth Every day Debility HTN (hypertension) Pickup at [facility] Changed insulin glargine (Lantus Solostar Pen 100 units/ mL 3 mL Pen) 15 unit(s) Subcutaneous Once a day Pickup at [facility] Changed insulin lispro (HumaLOG) (HumaLOG KwikPen 100 units/ mL injectable PEN) 5 unit(s) Subcutaneous Two (2) times daily before meals Pickup at [facility] Changed terazosin (terazosin 2 mg oral capsule) 1 cap by mouth Daily at bedtime Pickup at [facility] Pharmacy Information [facility]: [address], [place] [id number] [phone] Please take this list to your next doctor s visit. Bring all medications you take, including over the counter medications, herbals and other supplements with you to your doctor s visit. Patients and families are reminded to discard old lists and to update any records with all medication providers or retail pharmacies. Education Materials Fall Prevention in the Home, Adult Falls can cause injuries. They can happen to people of all ages. There are many things you can do to make your home safe and to help prevent falls. Ask for help when making these changes, if needed. What actions can I take to prevent falls? General Instructions Use good lighting in all rooms. Replace any light bulbs that burn out. Turn on the lights when you go into a dark area. Use night-lights. Keep items that you use often in nlxg-cy-uakch places. Lower the shelves around your home if necessary. Set up your furniture so you have a clear path. Avoid moving your furniture around. Do not have throw rugs and other things on the floor that can make you trip. Avoid walking on wet floors. If any of your floors are uneven, fix them. Add color or contrast paint or tape to clearly moraima and help you see: ? Any grab bars or handrails. ? First and last steps of stairways. ? Where the edge of each step is. If you use a stepladder: ? Make sure that it is fully opened. Do not climb a closed stepladder. ? Make sure that both sides of the stepladder are locked into place. ? Ask someone to hold the stepladder for you while you use it. If there are any pets around you, be aware of where they are. What can I do in the bathroom? Keep the floor dry. Clean up any water that spills onto the floor as soon as it happens. Remove soap buildup in the tub or shower regularly. Use non-skid mats or decals on the floor of the tub or shower. Attach bath mats securely with double-sided, non-slip rug tape. If you need to sit down in the shower, use a plastic, non-slip stool. Install grab bars by the toilet and in the tub and shower. Do not use towel bars as grab bars. What can I do in the bedroom? Make sure that you have a light by your bed that is easy to reach. Do not use any sheets or blankets that are too big for your bed. They should not hang down onto thefloor. Have a firm chair that has side arms. You can use this for support while you get dressed. What can I do in the kitchen? Clean up any spills right away. If you need to reach something above you, use a strong step stool that has a grab bar. Keep electrical cords out of the way. Do not use floor yi or wax that makes floors slippery. If you must use wax, use non-skid floor wax. What can I do with my stairs? Do not leave any items on the stairs. Make sure that you have a light switch at the top of the stairs and the bottom of the stairs. If you do not have them, ask someone to add them for you. Make sure that there are handrails on both sides of the stairs, and use them. Fix handrails that are broken or loose. Make sure that handrails are as long as the stairways. Install non-slip stair treads on all stairs in your home. Avoid having throw rugs at the top or bottom of the stairs. If you do have throw rugs, attach them to the floor with carpet tape. Choose a carpet that does not hide the edge of the steps on the stairway. Check any carpeting to make sure that it is firmly attached to the stairs. Fix any carpet that is loose or worn. What can I do on the outside of my home? Use bright outdoor lighting. Regularly fix the edges of walkways and driveways and fix any cracks. Remove anything that might make you trip as you walk through a door, such as a raised step or threshold. Trim any bushes or trees on the path to your home. Regularly check to see if handrails are loose or broken. Make sure that both sides of any steps have handrails. Install guardrails along the edges of any raised decks and porches. Clear walking paths of anything that might make someone trip, such as tools or rocks. Have any leaves, snow, or ice cleared regularly. Use sand or salt on walking paths during winter. Clean up any spills in your garage right away. This includes grease or oil spills. What other actions can I take? Wear shoes that: ? Have a low heel. Do not wear high heels. ? Have rubber bottoms. ? Are comfortable and fit you well. ? Are closed at the toe. Do not wear open-toe sandals. Use tools that help you move around (mobility aids) if they are needed. These include: ? Canes. ? Walkers. ? Scooters. ? Crutches. Review your medicines with your doctor. Some medicines can make you feel dizzy. This can increase your chance of falling. Ask your doctor what other things you can do to help prevent falls. Where to find more information Centers for Disease Control and Prevention, JS: https://cdc.gov National [place] on Aging: https://fl2hztj.eleno.nih.gov Contact a doctor if: You are afraid of falling at home. You feel weak, drowsy, or dizzy at home. You fall at home. Summary There are many simple things that you can do to make your home safe and to help prevent falls. Ways to make your home safe include removing tripping hazards and installing grab bars in the bathroom. Ask for help when making these changes in your home. This information is not intended to replace advice given to you by your health care provider. Make sure you discuss any questions you have with your health care provider. Document Released: 06/26/2010 Document Revised: 12/21/2019 Document Reviewed: 04/14/2018 [employer] Patient Education 2020 [employer]. Septic Arthritis Septic arthritis is inflammation of a joint that results from an infection. The infection occurs when bacteria or other germs get inside a joint. The knee and hip joints are most often affected, but other joints may also become infected. Usually, just one joint is affected. Joint infections need rosana treated quickly to prevent damage to the joint, and to prevent the infection from spreading to other areas of your body. What are the causes? This condition is most often caused by Staphylococcus bacteria. Other causes may include: Fungal infections. Sexually transmitted infections (STIs). Tuberculosis. Bacteria or other germs can spread to the joint. These bacteria are usually from: Blood carrying germs from an infection in another part of your body to your joint. This is the mostcommon cause of septic arthritis. An open wound near the joint. A needle put into the joint. Joint surgery. An infection in the bone (osteomyelitis) that spreads to the joint. What increases the risk? You may have a higher risk for this condition if you: Have an artificial joint. Have a blood or skin infection. Have open sores or wounds on your skin. Had a recent joint surgery or procedure. Had a recent joint injury. Have a long-term (chronic) disease, such as: ? Diabetes. ? Osteoarthritis. ? Rheumatoid arthritis. ? HIV (human immunodeficiency virus). Have a condition or take medicines that weaken your body s defense system (immune system). Use IV medicines. Have gonorrhea. Have a central line for IV access. What are the signs or symptoms? Symptoms of this condition include: Swelling at the joint. Severe pain in the joint. Redness and warmth in the joint. Being unable to move the joint. Fever and chills. How is this diagnosed? This condition may be diagnosed based on: Your symptoms. Your medical history. A physical exam. Other tests to confirm the diagnosis. These may include: ? Removing fluid from your joint to look for signs of infection (synovial fluid analysis). ? Blood tests. Imaging studies. These may include: ? X-rays. ? MRI. ? CT scan. ? Ultrasound. How is this treated? This condition may be treated by: Draining fluid from your joint. This may be done for several days in order to relieve pain. Taking antibiotic medicine. This may be given by IV or by mouth. It may be done in a hospital at first. You may have to continue antibiotics at home by IV or by mouth for several weeks after that. Surgery to remove: ? Infected fluid and tissue from the joint. ? An infected artificial joint. After the infection has started to heal, you may need physical therapy to regain strength and motion of the joint. Follow these instructions at home: Medicines Take tsrs-nzr-uynvjne and prescription medicines only as told by your health care provider. If you were prescribed an antibiotic medicine, take it as told by your health care provider. Do notstop taking the antibiotic even if you start to feel better. Follow instructions from your health care provider about how to take antibiotics at home by IV. Youmay need to have a nurse come to your home to give you antibiotics through IV. Managing pain, stiffness, and swelling If directed, put ice on the affected area: ? Put ice in a plastic bag. ? Place a towel between your skin and the bag. ? Leave the ice on for 20 minutes, 2 3 times a day. Raise (elevate) the affected area above the level of your heart while you are sitting or lying down. Activity Return to your normal activities as told by your health care provider. Ask your health care provider what activities are safe for you. Do any exercises or stretches as told by your health care provider or physical therapist. General instructions Do not use any products that contain nicotine or tobacco, such as cigarettes and e-cigarettes. These can delay healing. If you need help quitting, ask your health care provider. Wash your hands often with soap and water. If soap and water are not available, use hand janitor supervisor. Keep all follow-up visits as told by your health care provider. This is important. Contact a health care provider if you: Have pain that is not controlled with medicine. Develop a fever or chills. Have redness, warmth, pain, or swelling that returns after treatment. Get help right away if you: Have signs of worsening infection in your joint. Watch for: ? Very severe pain. ? Redness. ? Warmth. ? Swelling. Have rapid breathing or you have trouble breathing. Have chest pain. Cannot drink fluids or make urine. Notice that the affected area changed color or turned blue. Have numbness or severe pain in the affected area. Summary Septic arthritis is inflammation of a joint that occurs when bacteria or other germs get inside a joint and cause an infection. Joint infections need to be treated quickly to prevent damage to the joint, and to prevent the infection from spreading to other areas of your body. Symptoms of joint infection include redness, warmth, swelling, pain, and being unable to move a joint. Treatment usually involves draining fluid from the joint and taking antibiotic medicine. This information is not intended to replace advice given to you by your health care provider. Make sure you discuss any questions you have with your health care provider. Document Released: 11/20/2003 Document Revised: 12/22/2019 Document Reviewed: 10/11/2018 [employer] Patient Education 2020 [employer]. Acute Kidney Injury, Adult Acute kidney injury is a sudden worsening of kidney function. The kidneys are organs that have several jobs. They filter the blood to remove waste products and extra fluid. They also maintain a healthy balance of minerals and hormones in the body, which helps control blood pressure and keep bones strong. With this condition, your kidneys do not do their jobs as well as they should. This condition ranges from mild to severe. Over time it may develop into long- lasting (chronic) kidney disease. Early detection and treatment may prevent acute kidney injury from developing into a chronic condition. What are the causes? Common causes of this condition include: A problem with blood flow to the kidneys. This may be caused by: ? Low blood pressure (hypotension) or shock. ? Blood loss. ? Heart and blood vessel (cardiovascular) disease. ? Severe gomez. ? Liver disease. Direct damage to the kidneys. This may be caused by: ? Certain medicines. ? A kidney infection. ? Poisoning. ? Being around or in contact with toxic substances. ? A surgical wound. ? A hard, direct hit to the kidney area. A sudden blockage of urine flow. This may be caused by: ? Cancer. ? Kidney stones. ? An enlarged prostate in males. What are the signs or symptoms? Symptoms of this condition may not be obvious until the condition becomes severe. Symptoms of this condition can include: Tiredness (lethargy), or difficulty staying awake. Nausea or vomiting. Swelling (edema) of the face, legs, ankles, or feet. Problems with urination, such as: ? Abdominal pain, or pain along the side of your stomach (flank). ? Decreased urine production. ? Decrease in the force of urine flow. Muscle twitches and cramps, especially in the legs. Confusion or trouble concentrating. Loss of appetite. Fever. How is this diagnosed? This condition may be diagnosed with tests, including: Blood tests. Urine tests. Imaging tests. A test in which a sample of tissue is removed from the kidneys to be examined under a microscope (kidney biopsy). How is this treated? Treatment for this condition depends on the cause and how severe the condition is. In mild cases, treatment may not be needed. The kidneys may heal on their own. In more severe cases, treatment will involve: Treating the cause of the kidney injury. This may involve changing any medicines you are taking or adjusting your dosage. Fluids. You may need specialized IV fluids to balance your body's needs. Having a catheter placed to drain urine and prevent blockages. Preventing problems from occurring. This may mean avoiding certain medicines or procedures that cancause further injury to the kidneys. In some cases treatment may also require: A procedure to remove toxic wastes from the body (dialysis or continuous renal replacement therapy - CRRT). Surgery. This may be done to repair a torn kidney, or to remove the blockage from the urinary system. Follow these instructions at home: Medicines Take dqyg-qvu-cztuhjk and prescription medicines only as told by your health care provider. Do not take any new medicines without your health care provider's approval. Many medicines can worsen your kidney damage. Do not take any vitamin and mineral supplements without your health care provider's approval. Many nutritional supplements can worsen your kidney damage. Lifestyle If your health care provider prescribed changes to your diet, follow them. You may need to decreasethe amount of protein you eat. Achieve and maintain a healthy weight. If you need help with this, ask your health care provider. Start or continue an exercise plan. Try to exercise at least 30 minutes a day, 5 days a week. Do not use any tobacco products, such as cigarettes, chewing tobacco, and e- cigarettes. If you needhelp quitting, ask your health care provider. General instructions Keep track of your blood pressure. Report changes in your blood pressure as told by your health care provider. Stay up to date with immunizations. Ask your health care provider which immunizations you need. Keep all follow-up visits as told by your health care provider. This is important. Where to find more information [place] [employer]: www.aakp.org National Kidney Foundation: www.kidney.org [place] [employer]: www.akfinc.org Life Options Rehabilitation Program: ? www.lifeoptions.org ? www.kidneyschool.org Contact a health care provider if: Your symptoms get worse. You develop new symptoms. Get help right away if: You develop symptoms of worsening kidney disease, which include: ? Headaches. ? Abnormally dark or light skin. ? Easy bruising. ? Frequent hiccups. ? Chest pain. ? Shortness of breath. ? End of menstruation in women. ? Seizures. ? Confusion or altered mental status. ? Abdominal or back pain. ? Itchiness. You have a fever. Your body is producing less urine. You have pain or bleeding when you urinate. Summary Acute kidney injury is a sudden worsening of kidney function. Acute kidney injury can be caused by problems with blood flow to the kidneys, direct damage to the kidneys, and sudden blockage of urine flow. Symptoms of this condition may not be obvious until it becomes severe. Symptoms may include edema, lethargy, confusion, nausea or vomiting, and problems passing urine. This condition can usually be diagnosed with blood tests, urine tests, and imaging tests. Sometimesa kidney biopsy is done to diagnose this condition. Treatment for this condition often involves treating the underlying cause. It is treated with fluids, medicines, dialysis, diet changes, or surgery. This information is not intended to replace advice given to you by your health care provider. Make sure you discuss any questions you have with your health care provider. Document Released: 03/14/2012 Document Revised: 08/12/2018 Document Reviewed: 08/20/2017 [employer] Patient Education 2020 [employer] Additional Information VACCINATE! IT SAVES LIVES! Members of the community who have not yet received the COVID-19 vaccine and would like to receive it can visit one of [facility] vaccine clinics. There are many vaccine clinic locations within the [facility]. For locations and available times, please visit https://[email or web address].[place].gov/. It is important to note that some COVID mobile vaccine clinics are held outdoors and may be canceled in rainy or stormy conditions. To learn more about pediatric vaccinations (ages 5-11), we invite you to visit the [facility] webpage. https://www.[facility].org/pages/[email or web address]-[email or web address]-[email or web address]-Kkdfi-Ihz stions.htmlTo learn more about the COVID-19 vaccine, we invite you to visit the CDC website for a list of frequently asked questions.https://www.cdc.gov/coronavirus/2019-ncov/vaccines/faq.html [facility] Patient Portal Access Instructions: Stay connected with your healthcare team and access your personal medical information anytime with the [facility] Patient Portal. Please follow the directions below to create your [facility] account: 1.Access the email account you provided upon registration to the hospital/physician office.2.Look for an invitation email from [facility].3.Open the email and access the invitation link: AcceptInvitation to [facility].4.Fill in the required viramontes to create your account. To access your account, visit Quibb[employer]raFluid[employer]st. Click the blue button labeled Access Patient Portal and then log in with the username and password that you created in the steps above. You will be able to view your test results, lab results, a summary of your visits, upcoming appointments and more. There is also a convenient messaging option where you can send secure messages to your p Amperevider. In addition, you will have the ability to download any documents or summaries to your computer and/or send the information securely to a physician. Remember that your healthcare information is confidential, so carefully consider who you will allowto register on the [facility] Patient Portal for access to your information. You can also access the [facility] Patient Portal on the [facility] keenan. Simply click on Patient Portal and then log into your account. If you would like to receive a full copy of your medical records, please contact the [facility] Medical Records Department by calling [phone], Wednesday through Wednesday between 8 a.m. and 4:30 p.m. HOW TO SAFELY DISPOSE OF PRESCRIPTION MEDICATIONS Please use one of the following methods to safely dispose of your unused medications. 1.Use a drug disposal kit: the drug disposal pouch allows you to safely discard your old and unuseddrugs. Ask your nurse to give you one when you are discharged.2.Visit a local take-back location: Many local pharmacies and police departments have programs that collect old and unwanted prescriptiondrugs. Call your local pharmacy or go to http://Monitor110.Cempra/3H7Ht3f to find one close to you.3.Make use of household items: Use cat litter or old coffee grounds to dispose medications if other options arenot available. Mix your drugs with these household products, seal them in an airtight container andthrow it into the garbage. Call [facility]: [phone] to be sure your drugs can be disposed of in this way. Some medicines may require a different approach.4.Never flush your medications down the toilet. IF YOU HAVE BEEN PRESCRIBED AN OPIOID FOR PAIN If you have been prescribed an opioid (such as hydrocodone, oxycodone or morphine), it is critical to understand the possible side effects and risks of opioid pain medications. Even when taken as directed, opioids can have several side effects including: Tolerance, meaning you might need to take more of a medication for the same pain relief. Nausea, vomiting and/or constipation. Sleepiness, dizziness, dry mouth, confusion, depression or itching. Physical dependence, meaning you have withdrawal symptoms when a medication is stopped, can develop within a few days. KNOW YOUR RESPONSIBILITIES It is important to know exactly how much and how often to take the opioid pain medications you are prescribed. Never take opioids in higher amounts or more often than prescribed. Do not combine opioids with alcohol or other drugs that cause drowsiness, such as benzodiazepines, also known as benzos, including diazepam and alprazolam, muscle relaxants or sleep aids. Never sell or share prescription opioids. This is illegal. Store opioids in a secure place and out of reach of others (including children, family, friends and visitors). The last page of this document has been signed and retained as a CHART COPY. Signatures Patient Education Materials Fall Prevention in the Home, Adult, Ogkq-hv-Gcvv Septic Arthritis Acute Kidney Injury, Adult Medication Leaflets My discharge plan and instructions have been reviewed and explained to me and I,ROZ BAKER understand my current condition and have read and understand these discharge instructions. I have received a written copy of the plan/instructions. If I have questions, I am aware that I should contact my doc tor. 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 Signature: Date/Time: Relationship to Patient: Witness Name/Signature: Date/Time: Caro [id number] Nurse Progress note Nursing GG Entered On: 09/03/2023 18:49 EST Performed On: 09/03/2023 18:48 EST by Dorothy Torres RN Nursing GG's OT GG Grid Eating : Independent Chair/yfd-mo-oxqvn transfer : Independent Dorothy Torres RN - 09/03/2023 18:48 EST Digitally Signed by Dorothy Torres RN on 09/03/2023 06:48 PM Caro [id number] Hospital Discharge instructions Patient Education 09/03/2023 12:32:41 Fall Prevention in the Home, Adult, Uflg-ee-Opyd Fall Prevention in the Home, Adult Falls can cause injuries. They can happen to people of all ages. There are many things you can do to make your home safe and to help prevent falls. Ask for help when making these changes, if needed. What actions can I take to prevent falls? General Instructions Use good lighting in all rooms. Replace any light bulbs that burn out. Turn on the lights when you go into a dark area. Use night-lights. Keep items that you use often in ynpb-wu-nylen places. Lower the shelves around your home if necessary. Set up your furniture so you have a clear path. Avoid moving your furniture around. Do not have throw rugs and other things on the floor that can make you trip. Avoid walking on wet floors. If any of your floors are uneven, fix them. Add color or contrast paint or tape to clearly moraima and help you see: ?Any grab bars or handrails. ?First and last steps of stairways. ?Where the edge of each step is. If you use a stepladder: ?Make sure that it is fully opened. Do not climb a closed stepladder. ?Make sure that both sides of the stepladder are locked into place. ?Ask someone to hold the stepladder for you while you use it. If there are any pets around you, be aware of where they are. What can I do in the bathroom? Keep the floor dry. Clean up any water that spills onto the floor as soon as it happens. Remove soap buildup in the tub or shower regularly. Use non-skid mats or decals on the floor of the tub or shower. Attach bath mats securely with double-sided, non-slip rug tape. If you need to sit down in the shower, use a plastic, non-slip stool. Install grab bars by the toilet and in the tub and shower. Do not use towel bars as grab bars. What can I do in the bedroom? Make sure that you have a light by your bed that is easy to reach. Do not use any sheets or blankets that are too big for your bed. They should not hang down onto thefloor. Have a firm chair that has side arms. You can use this for support while you get dressed. What can I do in the kitchen? Clean up any spills right away. If you need to reach something above you, use a strong step stool that has a grab bar. Keep electrical cords out of the way. Do not use floor yi or wax that makes floors slippery. If you must use wax, use non-skid floor wax. What can I do with my stairs? Do not leave any items on the stairs. Make sure that you have a light switch at the top of the stairs and the bottom of the stairs. If you do not have them, ask someone to add them for you. Make sure that there are handrails on both sides of the stairs, and use them. Fix handrails that are broken or loose. Make sure that handrails are as long as the stairways. Install non-slip stair treads on all stairs in your home. Avoid having throw rugs at the top or bottom of the stairs. If you do have throw rugs, attach them to the floor with carpet tape. Choose a carpet that does not hide the edge of the steps on the stairway. Check any carpeting to make sure that it is firmly attached to the stairs. Fix any carpet that is loose or worn. What can I do on the outside of my home? Use bright outdoor lighting. Regularly fix the edges of walkways and driveways and fix any cracks. Remove anything that might make you trip as you walk through a door, such as a raised step or threshold. Trim any bushes or trees on the path to your home. Regularly check to see if handrails are loose or broken. Make sure that both sides of any steps have handrails. Install guardrails along the edges of any raised decks and porches. Clear walking paths of anything that might make someone trip, such as tools or rocks. Have any leaves, snow, or ice cleared regularly. Use sand or salt on walking paths during winter. Clean up any spills in your garage right away. This includes grease or oil spills. What other actions can I take? Wear shoes that: ?Have a low heel. Do not wear high heels. ?Have rubber bottoms. ?Are comfortable and fit you well. ?Are closed at the toe. Do not wear open-toe sandals. Use tools that help you move around (mobility aids) if they are needed. These include: ?Canes. ?Walkers. ?Scooters. ?Crutches. Review your medicines with your doctor. Some medicines can make you feel dizzy. This can increase your chance of falling. Ask your doctor what other things you can do to help prevent falls. Where to find more information Centers for Disease Control and Prevention, STEADI: https://cdc.gov National [place] on Aging: https://fn9atun.eleno.nih.gov Contact a doctor if: You are afraid of falling at home. You feel weak, drowsy, or dizzy at home. You fall at home. Summary There are many simple things that you can do to make your home safe and to help prevent falls. Ways to make your home safe include removing tripping hazards and installing grab bars in the bathroom. Ask for help when making these changes in your home. This information is not intended to replace advice given to you by your health care provider. Make sure you discuss any questions you have with your health care provider. Document Released: 06/26/2010 Document Revised: 12/21/2019 Document Reviewed: 04/14/2018 [employer] Patient Education 2020 [employer]. 09/03/2023 12:32:33 Septic Arthritis Septic Arthritis Septic arthritis is inflammation of a joint that results from an infection. The infection occurs when bacteria or other germs get inside a joint. The knee and hip joints are most often affected, but other joints may also become infected. Usually, just one joint is affected. Joint infections need rosana treated quickly to prevent damage to the joint, and to prevent the infection from spreading to other areas of your body. What are the causes? This condition is most often caused by Staphylococcus bacteria. Other causes may include: Fungal infections. Sexually transmitted infections (STIs). Tuberculosis. Bacteria or other germs can spread to the joint. These bacteria are usually from: Blood carrying germs from an infection in another part of your body to your joint. This is the mostcommon cause of septic arthritis. An open wound near the joint. A needle put into the joint. Joint surgery. An infection in the bone (osteomyelitis) that spreads to the joint. What increases the risk? You may have a higher risk for this condition if you: Have an artificial joint. Have a blood or skin infection. Have open sores or wounds on your skin. Had a recent joint surgery or procedure. Had a recent joint injury. Have a long-term (chronic) disease, such as: ?Diabetes. ?Osteoarthritis. ?Rheumatoid arthritis. ?HIV (human immunodeficiency virus). Have a condition or take medicines that weaken your body s defense system (immune system). Use IV medicines. Have gonorrhea. Have a central line for IV access. What are the signs or symptoms? Symptoms of this condition include: Swelling at the joint. Severe pain in the joint. Redness and warmth in the joint. Being unable to move the joint. Fever and chills. How is this diagnosed? This condition may be diagnosed based on: Your symptoms. Your medical history. A physical exam. Other tests to confirm the diagnosis. These may include: ?Removing fluid from your joint to look for signs of infection (synovial fluid analysis). ?Blood tests. Imaging studies. These may include: ?X-rays. ?MRI. ?CT scan. ?Ultrasound. How is this treated? This condition may be treated by: Draining fluid from your joint. This may be done for several days in order to relieve pain. Taking antibiotic medicine. This may be given by IV or by mouth. It may be done in a hospital at first. You may have to continue antibiotics at home by IV or by mouth for several weeks after that. Surgery to remove: ?Infected fluid and tissue from the joint. ?An infected artificial joint. After the infection has started to heal, you may need physical therapy to regain strength and motion of the joint. Follow these instructions at home: Medicines Take djqv-dwe-gmvfiij and prescription medicines only as told by your health care provider. If you were prescribed an antibiotic medicine, take it as told by your health care provider. Do notstop taking the antibiotic even if you start to feel better. Follow instructions from your health care provider about how to take antibiotics at home by IV. Youmay need to have a nurse come to your home to give you antibiotics through IV. Managing pain, stiffness, and swelling If directed, put ice on the affected area: ? Put ice in a plastic bag. ?Place a towel between your skin and the bag. ? Leave the ice on for 20 minutes, 2 3 times a day. Raise (elevate) the affected area above the level of your heart while you are sitting or lying down. Activity Return to your normal activities as told by your health care provider. Ask your health care provider what activities are safe for you. Do any exercises or stretches as told by your health care provider or physical therapist. General instructions Do not use any products that contain nicotine or tobacco, such as cigarettes and e-cigarettes. These can delay healing. If you need help quitting, ask your health care provider. Wash your hands often with soap and water. If soap and water are not available, use hand janitor supervisor. Keep all follow-up visits as told by your health care provider. This is important. Contact a health care provider if you: Have pain that is not controlled with medicine. Develop a fever or chills. Have redness, warmth, pain, or swelling that returns after treatment. Get help right away if you: Have signs of worsening infection in your joint. Watch for: ?Very severe pain. ?Redness. ?Warmth. ?Swelling. Have rapid breathing or you have trouble breathing. Have chest pain. Cannot drink fluids or make urine. Notice that the affected area changed color or turned blue. Have numbness or severe pain in the affected area. Summary Septic arthritis is inflammation of a joint that occurs when bacteria or other germs get inside a joint and cause an infection. Joint infections need to be treated quickly to prevent damage to the joint, and to prevent the infection from spreading to other areas of your body. Symptoms of joint infection include redness, warmth, swelling, pain, and being unable to move a joint. Treatment usually involves draining fluid from the joint and taking antibiotic medicine. This information is not intended to replace advice given to you by your health care provider. Make sure you discuss any questions you have with your health care provider. Document Released: 11/20/2003 Document Revised: 12/22/2019 Document Reviewed: 10/11/2018 [employer] Patient Education 2020 [employer]. 09/03/2023 12:32:25 Acute Kidney Injury, Adult Acute Kidney Injury, Adult Acute kidney injury is a sudden worsening of kidney function. The kidneys are organs that have several jobs. They filter the blood to remove waste products and extra fluid. They also maintain a healthy balance of minerals and hormones in the body, which helps control blood pressure and keep bones strong. With this condition, your kidneys do not do their jobs as well as they should. This condition ranges from mild to severe. Over time it may develop into long- lasting (chronic) kidney disease. Early detection and treatment may prevent acute kidney injury from developing into a chronic condition. What are the causes? Common causes of this condition include: A problem with blood flow to the kidneys. This may be caused by: ?Low blood pressure (hypotension) or shock. ?Blood loss. ?Heart and blood vessel (cardiovascular) disease. ?Severe gomez. ?Liver disease. Direct damage to the kidneys. This may be caused by: ?Certain medicines. ?A kidney infection. ?Poisoning. ?Being around or in contact with toxic substances. ?A surgical wound. ?A hard, direct hit to the kidney area. A sudden blockage of urine flow. This may be caused by: ?Cancer. ?Kidney stones. ?An enlarged prostate in males. What are the signs or symptoms? Symptoms of this condition may not be obvious until the condition becomes severe. Symptoms of this condition can include: Tiredness (lethargy), or difficulty staying awake. Nausea or vomiting. Swelling (edema) of the face, legs, ankles, or feet. Problems with urination, such as: ?Abdominal pain, or pain along the side of your stomach (flank). ?Decreased urine production. ?Decrease in the force of urine flow. Muscle twitches and cramps, especially in the legs. Confusion or trouble concentrating. Loss of appetite. Fever. How is this diagnosed? This condition may be diagnosed with tests, including: Blood tests. Urine tests. Imaging tests. A test in which a sample of tissue is removed from the kidneys to be examined under a microscope (kidney biopsy). How is this treated? Treatment for this condition depends on the cause and how severe the condition is. In mild cases, treatment may not be needed. The kidneys may heal on their own. In more severe cases, treatment will involve: Treating the cause of the kidney injury. This may involve changing any medicines you are taking or adjusting your dosage. Fluids. You may need specialized IV fluids to balance your body's needs. Having a catheter placed to drain urine and prevent blockages. Preventing problems from occurring. This may mean avoiding certain medicines or procedures that cancause further injury to the kidneys. In some cases treatment may also require: A procedure to remove toxic wastes from the body (dialysis or continuous renal replacement therapy - CRRT). Surgery. This may be done to repair a torn kidney, or to remove the blockage from the urinary system. Follow these instructions at home: Medicines Take eovy-flm-uwwbtjl and prescription medicines only as told by your health care provider. Do not take any new medicines without your health care provider's approval. Many medicines can worsen your kidney damage. Do not take any vitamin and mineral supplements without your health care provider's approval. Many nutritional supplements can worsen your kidney damage. Lifestyle If your health care provider prescribed changes to your diet, follow them. You may need to decreasethe amount of protein you eat. Achieve and maintain a healthy weight. If you need help with this, ask your health care provider. Start or continue an exercise plan. Try to exercise at least 30 minutes a day, 5 days a week. Do not use any tobacco products, such as cigarettes, chewing tobacco, and e- cigarettes. If you needhelp quitting, ask your health care provider. General instructions Keep track of your blood pressure. Report changes in your blood pressure as told by your health care provider. Stay up to date with immunizations. Ask your health care provider which immunizations you need. Keep all follow-up visits as told by your health care provider. This is important. Where to find more information [place] [employer] Patients: www.aakp.org National Kidney Foundation: www.kidney.org [place] [employer]: www.akfinc.org Life Options Rehabilitation Program: ?www.lifeoptions.org ?www.kidneyschool.org Contact a health care provider if: Your symptoms get worse. You develop new symptoms. Get help right away if: You develop symptoms of worsening kidney disease, which include: ?Headaches. ?Abnormally dark or light skin. ?Easy bruising. ?Frequent hiccups. ?Chest pain. ?Shortness of breath. ?End of menstruation in women. ?Seizures. ?Confusion or altered mental status. ?Abdominal or back pain. ?Itchiness. You have a fever. Your body is producing less urine. You have pain or bleeding when you urinate. Summary Acute kidney injury is a sudden worsening of kidney function. Acute kidney injury can be caused by problems with blood flow to the kidneys, direct damage to the kidneys, and sudden blockage of urine flow. Symptoms of this condition may not be obvious until it becomes severe. Symptoms may include edema, lethargy, confusion, nausea or vomiting, and problems passing urine. This condition can usually be diagnosed with blood tests, urine tests, and imaging tests. Sometimesa kidney biopsy is done to diagnose this condition. Treatment for this condition often involves treating the underlying cause. It is treated with fluids, medicines, dialysis, diet changes, or surgery. This information is not intended to replace advice given to you by your health care provider. Make sure you discuss any questions you have with your health care provider. Document Released: 03/14/2012 Document Revised: 08/12/2018 Document Reviewed: 08/20/2017 [employer] 2020 [employer] Follow Up Care 08/25/2023 15:31:56 With:KAMRON LEPE MD Address: [address] [address]- When:5 to 7 days Comments:Schedule appointment as soon as possible - Take Discharge Instructions to Visit - With:JULIANNE DUMAS MD Address: [address] [facility] [place] [id number]- When:11/09/2023 14:45:00 Comments:You will be seeing the [facility] - Nephrology follow up - With:JAVI DOVER MD Address: [address] [place] [address] of [facility] K[place] Hernandez [id number]- When:09/30/2023 13:30:00 Comments:Cardio - Caro Forbes 12-22-2023 Nurse Progress note Nursing GG Entered On: 09/03/2023 11:02 EST Performed On: 09/03/2023 11:02 EST by Carlos Crockett LPN Nursing GG's OT GG Grid Eating : Independent Toilet Hygiene : Independent Toilet Transfer : Independent Roll left and right : Independent Sit to lying : Independent Carlos Crockett LPN - 09/03/2023 11:02 EST Digitally Signed by Carlos Crockett LPN on 09/03/2023 11:02 AM [place] [id number] Note Subjective Patient reports overall he is doing well, states his breathing is comfortable. States that he becomes winded when he is up and working with therapy or getting ready for the day but states that at baseline his breathing is pretty much comfortable and where it normally is. Denies any worsening of respiratory symptoms. Does report good urine output. States bowels are moving. States his appetite isgood he is eating well. Reports good proximal therapy. Denies any acute pain. Denies dizziness/lightheadedness Objective General: Alert and oriented- NAD. Appears comfortable sitting in wheelchair while working with therapy, no acute pain noted. Calm and cooperative. Good eye contact. Good eye contact, flat affect. HEENT: EOMI, MMM, no nasal drainage Respiratory: LCTA-nonlabored on room air; no cough/congestion Cardiovascular: HRR; no tachycardia or heart murmur Edema/Varicosities of Extremities: 3 4+ edema BLE Gastrointestinal: Bowel sounds present x4; abdomen soft/nondistended/nontender Genitourinary: No CVA tenderness, no suprapubic tenderness, no bladder distention VITALS DuvbpxTsgiZNBdqlqCOBdS4DRK4LzkpEp(kg) 09/02 01:1136.4--609919NI64/13933.6 09/01 20:0636.6--810134BF35/25870.6 09/01 16:25----84--92RA 09/01 08:1836.5--95--93RA 09/01 05:4936.4----1792RA 24 Hr Tmax: 36.6 at 09/01 20:06 36 Hr Tmax: 37.5 at 08/31 17:10 Vital Signs are the last 5 in the past 48 hours. Weights display the last 5 within 7 days. Initial Wt: 08/25 117.9 kg 259 lb Current Wt: 09/01 130.4 kg 287 lb LABS 09/01 06:52 WBC: 5.7 Hgb: 8.2 L Hct: 26.0 L Platelet: 214 Neutrophil %: 70.8 Glucose Level: 96 Sodium Level: 140 Potassium Level: 3.8 BUN: 58.0 H Creatinine Lvl (s): 3.29 H Medications Active Inpt Meds: ammonium lactate topical (Lac-Hydrin topical cream 12%) Start: 08/27/23 9:01:00 EST, Dose = 1 keenan, Topical, BID, Apply to: BLE, Cream, 08/27/23 9:01:00 EST apixaban (Eliquis) Start: 08/26/23 21:00:00 EST, Dose = 2.5 mg, = 1 tab(s), Oral, BID, Indication for Use Atrial fibrillation, 08/26/23 17:42:00 EST atorvastatin Start: 08/30/23 21:00:00 EST, Dose = 40 mg, = 1 tab(s), Oral, qHS, 08/30/23 17:09:00 EST betamethasone topical (betamethasone dipropionate 0.05% topical ointment) Start: 09/01/23 9:49:00 EST, Dose = 1 keenan, Topical, Daily, Apply to: Dorsal feet, Ointment, 09/01/23 9:43:00 EST bumetanide Start: 08/30/23 17:09:00 EST, Dose = 1 mg, = 1 tab(s), Oral, BID, 08/30/23 17:09:00 EST calcitriol Start: 08/27/23 9:00:00 EST, Dose = 0.25 mcg, = 1 cap(s), Oral, Daily, 0, 08/26/23 17:42:00 EST carvedilol (Coreg) Start: 09/01/23 17:00:00 EST, Dose = 12.5 mg, = 1 tab(s), Oral, BIDM, 09/01/23 17:00:00 EST famotidine Start: 08/31/23 9:00:00 EST, Dose = 20 mg, = 1 tab(s), Oral, qDay, 08/31/23 9:00:00 EST gabapentin Start: 08/27/23 9:00:00 EST, Dose = 300 mg, = 1 cap(s), Oral, Daily, 0, 08/26/23 17:42:00 EST gabapentin Start: 08/27/23 9:00:00 EST, Dose = 100 mg, = 1 cap(s), Oral, Daily, 0, 08/26/23 17:43:00 EST hydrALAZINE Start: 09/01/23 16:00:00 EST, Dose = 50 mg, = 1 tab(s), Oral, TID, 0, 09/01/23 16:00:00EST influenza virus vaccine, inactivated (Fluad Quadrivalent PF [id number]) Start: 08/26/23 19:00:00 EST, Dose = 0.5 mL, Susp, Intramuscular, Vaccine, 1 dose(s), ROSETTA (LTCH)/ WDLN, 0, 08/26/23 18:32:00 EST insulin glargine (Lantus) Start: 08/27/23 8:00:00 EST, Dose = 15 unit(s), = 0.15 mL, Subcutaneous (INT), Daily, Rate: 0 mL/hr, Infuse over: 0 minute(s), 08/26/23 17:43:00 EST insulin lispro (HumaLOG) (HumaLOG 100 units/mL subcutaneous solution) Start: 08/26/23 21:58:00 EST,Dose = 5 unit(s), = 0.05 mL, Subcutaneous, BIDAC, 0, 08/26/23 21:58:00 EST isosorbide mononitrate Start: 08/31/23 7:00:00 EST, Dose = 30 mg, = 1 tab(s), Oral, qDayAC, 0, 08/30/23 17:08:00 EST terazosin Start: 08/26/23 21:00:00 EST, Dose = 2 mg, = 1 cap(s), Oral, qHS, 08/26/23 17:43:00 EST Active PRN Meds: Al hydroxide/Mg hydroxide/simethicone (Maalox) Start: 08/26/23 17:19:00 EST, Dose = 30 mL, Susp, Oral, q6h, PRN, Indigestion, 08/26/23 17:19:00 EST acetaminophen Start: 08/26/23 17:42:00 EST, Dose = 650 mg, = 2 tab(s), Oral, q6hr, PRN, as needed for fever, 08/26/23 17:42:00 EST acetaminophen Start: 08/26/23 17:42:00 EST, Dose = 650 mg, = 2 tab(s), Oral, q6hr, PRN, as needed for pain, 08/26/23 17:42:00 EST diclofenac topical (diclofenac 1% topical gel) Start: 08/26/23 17:42:00 EST, Dose = 1 keenan, Topical,BID, PRN, Pain, Apply to: knees, Gel, 08/26/23 17:42:00 EST docusate (Colace) Start: 08/26/23 17:19:00 EST, Dose = 100 mg, = 1 cap(s), Oral, BID, PRN, Constipation, 08/26/23 17:19:00 EST glucagon (GlucaGen) Start: 08/26/23 17:19:00 EST, Dose = 1 mg, = 1 mL, Intramuscular, AsDirected, PRN, Hypoglycemia, if unresponsive, NO IV ACCESS & blood glucose less than 70mg/dL. If still unresponsive after 2 minutes, REPEAT x1., 08/26/23 17:19:00 EST glucose (Dextrose 50% IV Push) Start: 08/26/23 17:19:00 EST, Dose = 12.5 gram(s), = 25 mL, IV Push,AsDirected, PRN, Hypoglycemia, if unresponsive WITH IV ACCESS & blood glucose less than 70mg/dL. If still unresponsive after 2 minutes, REPEAT x1., 08/26/23 17:19:00 EST glucose Start: 08/26/23 17:19:00 EST, Dose = 16 gram(s), = 4 tab(s), Chewed, AsDirected, PRN, Hypoglycemia, DIABETIC PATIENT if responsive & blood glucose less than 70mg/dL. If blood glucose less than 70mg/dL after 15 minutes, REPEAT x1., 0, 08/26/23 17:1... glycerin (glycerin adult rectal suppository) Start: 08/26/23 17:19:00 EST, Dose = 1 supp, Supp, Rectal, Daily, PRN, Constipation, 08/26/23 17:19:00 EST magnesium hydroxide (Milk of Magnesia) Start: 08/26/23 17:19:00 EST, Dose = 30 mL, Susp-Oral, Oral,Daily, PRN, Constipation, 08/26/23 17:19:00 EST polyethylene glycol 3350 (Miralax Powder Packet) Start: 08/26/23 17:19:00 EST, Dose = 17 gram(s), =15 mL, Oral, qDay, PRN, Constipation, 08/26/23 17:19:00 EST traMADol Start: 08/27/23 9:09:00 EST, Dose = 100 mg, = 2 tab(s), Oral, BID, PRN, Pain, scale 7-10, 0, 08/27/23 9:09:00 EST One Time Meds: None Active IV Meds: None Problems (11) Acute kidney injury superimposed on chronic kidney disease (5311742265) CAESAR (acute kidney injury) (7609922327) Anemia in chronic kidney disease (CKD) (297450534) Cellulitis (117992270) Debility (59676126) Diabetes (156383901) HTN (hypertension) (3118431514) Hyperlipidemia (89928162) Morbid obesity (614699570) Septic joint of left knee joint (654511667) Type 1 diabetes (933094533) ASSESSMENT/PLAN: Acute diastolic CHF exacerbation complicated by medication noncompliance in the outpatient setting apparently he had run out of his diuretics, resulted in acute dyspnea and respiratory failure, Trenddaily weights, currently stable. Continues on low-sodium diet Acute kidney disease and chronic kidney disease previously scheduled for a fistula placement this was put on hold due to the acute CHF exacerbation. Follow-up with nephrology continue to monitor renal function closely given compromised creatinine currently improved at 3.29. Follow-up BMP pending Bilateral knee effusion status post aspiration, reportedly cultures negative no antibiotics in place the present time Severe venous stasis bilateral lower extremities, wound team following Extensive fluid overload with pitting edema up into the abdomen trending volume status closely. Compression stockings ordered History of A-fib rate controlled continue Eliquis for anticoagulation Uncontrolled hypertension, hydralazine and Imdur increased. Labetalol changed to Coreg and Lasix now off, appreciate cardiology recommendations trending blood pressures closely BPH terazosin Chronic neuropathic pain renally dose gabapentin Diabetes mellitus type 2, continue with Humalog and Lantus. Blood sugars stable Acute pain, mostly bilateral knee pain secondary to the recent effusions, continues tramadol 100 mgtwice daily as needed, and as needed Tylenol. Severe gait dysfunction, working with PT and OT services Blood pressures remain somewhat uncontrolled, Coreg increased to 12.5, hydralazine increased to 50mg 3 times daily, trending blood pressures consider increasing hydralazine if consistently over 140 systolic Creatinine holding steady and currently tolerating the Bumex at 1 mg twice daily, weights are showing some trend down but still some pretty persistent fluid overload in the lower extremities, respiratory status is improving, follow-up lab work to be scheduled for the Medications reviewed and up to date This document was transcribed using dictation software and may contain typographical errors. Alexandria Navarrete RN, am scribing for , and in the presence of Dr. Mitchell. IDr. Mitchell, personally performed the services described in this documentation, as scribed byAlexandria RN in my presence and it is both accurate and complete. Digitally Signed by MEG MITCHELL DO on 09/02/2023 03:38 PM [place] [id number] Physical medicine and rehab Progress note Rehab Note Chief Complaint: Seeing this patient for evaluation therapy progress and acute kidney injury on chronic kidney disease stage IV, acute diastolic CHF exacerbation History of Present Illness: Seeing this patient for evaluation therapy progress and acute kidney injury on chronic kidney disease stage IV, acute diastolic CHF exacerbation. Patient participates in acute inpatient rehabilitation with PT and OT services. 73-year-old male who presented to the emergency department after being found with left knee effusion. Underwent aspiration and culture was noted for gram-positive cocci, felt contaminated. Patient was treated for septic left knee joint initially. Patient was noted acute kidney injury on chronic kidney disease as well as diastolic CHF exacerbation. Past medical history includes CKD stage IV, diastolic CHF, morbid obesity, hypertension, diabetes mellitus type 2, atrial fibrillation, gout, BPH. Discussed with nursing. Medication reviewed. Tentative discharge date 09/08/2023. Medication List Active Medications Ordered acetaminophen: 650 mg, 2 tab(s), Oral, q6hr, PRN: as needed for fever. acetaminophen: 650 mg, 2 tab(s), Oral, q6hr, PRN: as needed for pain. Al hydroxide/Mg hydroxide/simethicone: 30 mL, Oral, q6h, PRN: Indigestion. ammonium lactate topical: 1 keenan, Topical, BID. apixaban: 2.5 mg, 1 tab(s), Oral, BID. atorvastatin: 40 mg, 1 tab(s), Oral, qHS. bumetanide: 1 mg, 1 tab(s), Oral, BID. calcitriol: 0.25 mcg, 1 cap(s), Oral, Daily. carvedilol: 6.25 mg, 1 tab(s), Oral, BIDM. diclofenac topical: 1 keenan, Topical, BID, PRN: Pain. docusate: 100 mg, 1 cap(s), Oral, BID, PRN: Constipation. famotidine: 20 mg, 1 tab(s), Oral, qDay. gabapentin: 300 mg, 1 cap(s), Oral, Daily. gabapentin: 100 mg, 1 cap(s), Oral, Daily. glucagon: 1 mg, 1 mL, Intramuscular, AsDirected, PRN: Hypoglycemia. glucose: 12.5 gram(s), 25 mL, IV Push, AsDirected, PRN: Hypoglycemia. glucose: 16 gram(s), 4 tab(s), Chewed, AsDirected, PRN: Hypoglycemia. glycerin: 1 supp, Rectal, Daily, PRN: Constipation. hydrALAZINE: 25 mg, 1 tab(s), Oral, TID. influenza virus vaccine, inactivated: 0.5 mL, Intramuscular, Vaccine. insulin glargine: 15 unit(s), 0.15 mL, 0 mL/hr, Subcutaneous (INT), Daily. insulin lispro (HumaLOG): 5 unit(s), 0.05 mL, Subcutaneous, BIDAC. isosorbide mononitrate: 30 mg, 1 tab(s), Oral, qDayAC. magnesium hydroxide: 30 mL, Oral, Daily, PRN: Constipation. polyethylene glycol 3350: 17 gram(s), 15 mL, Oral, qDay, PRN: Constipation. terazosin: 2 mg, 1 cap(s), Oral, qHS. traMADol: 100 mg, 2 tab(s), Oral, BID, PRN: Pain, scale 7-10. Documented acetaminophen: 650 mg, Oral, q6hr, PRN: Pain, scale 1-3, 0 Refill(s). acetaminophen: 650 mg, Oral, q6hr, PRN: as needed for fever >=101.0, 0 Refill(s). apixaban: 2.5 mg, 1 tab(s), Oral, BID, 60 tab(s), 0 Refill(s). atorvastatin: 20 mg, Oral, qHS, 0 Refill(s). calcitriol: 0.25 mcg, 1 cap(s), Oral, Daily, 0 Refill(s). diclofenac topical: 1 keenan, Topical, BID, PRN: as needed to knees for pain, 100 gram(s), 0 Refill(s). famotidine: 20 mg, 1 tab(s), Oral, BID, 60 tab(s), 0 Refill(s). furosemide: 20 mg, Oral, BID, 0 Refill(s). gabapentin: 100 mg, 1 cap(s), Oral, Daily, 0 Refill(s). gabapentin: 300 mg, Oral, Daily, 0 Refill(s). hydrALAZINE: 10 mg, 1 tab(s), Oral, TID, 90 tab(s), 0 Refill(s). insulin glargine: 15 unit(s), Subcutaneous, Daily, 0 Refill(s). insulin lispro (HumaLOG): 5 unit(s), Subcutaneous, BIDAC, 10 mL, 0 Refill(s). isosorbide mononitrate: 15 mg, 1.5 tab(s), Oral, Daily, 0 Refill(s). labetalol: 100 mg, 1 tab(s), Oral, BID, 180 tab(s), 0 Refill(s). terazosin: 2 mg, 1 cap(s), Oral, qHS, 0 Refill(s). Medications Inactivated in the Last 72 Hours atorvastatin: 20 mg, 1 tab(s), Oral, qHS. famotidine: 20 mg, 1 tab(s), Oral, BID. furosemide: 20 mg, 1 tab(s), Oral, BID. hydrALAZINE: 10 mg, 1 tab(s), Oral, TID. isosorbide mononitrate: 15 mg, 0.5 tab(s), Oral, qDayAC. labetalol: 100 mg, 1 tab(s), Oral, BID. traMADol: 50 mg, 1 tab(s), Oral, BID, PRN: Pain, scale 1-3. traMADol: 50 mg, 1 tab(s), Oral, q6hr, PRN: Pain, scale 4-6. Social history: Social support: Lives alone Home set-up: Single level home. First-floor bedroom, bathroom, laundry Barriers to discharge: Time since onset, safety awareness, past medical history, lives alone Review of Systems: General: Appetite is good Respiratory: Denies shortness of breath, denies cough Cardiovascular: Denies chest pain, denies palpitations Gastrointestinal: Denies nausea, vomiting, diarrhea or constipation Genitourinary: Denies suprapubic pain or tenderness, no dysuria Musculoskeletal: No uncontrolled pain Psychiatric: No reported change in cognition Vitals Signs(Last 24 hrs)__Last Charted Minimum Maximum Temp36.4(SEP 01 05:49)36.4(SEP 01 05:49)H 37.5(AUG 31 17:10) Heart Rate90(AUG 31 17:10)86(AUG 31 08:59)90(AUG 31 17:10) Resp Rate17(SEP 01 05:49)16(AUG 31 17:10)18(AUG 31 21:26) FQB319(SEP 01 05:49)138(SEP 01 05:49)H 154(AUG 31 17:10) DBP72(SEP 01 05:49)70(AUG 31 08:59)84(AUG 31:26) Physical Exam: General: No acute distress. Wears glasses Respiratory: Lungs are clear Cardiovascular: Regular rate and rhythm Gastrointestinal: Abdomen is soft nontender nondistended. Bowel sounds normal x4. Arterial: 1/4 distal pulses bilateral lower extremities Edema: 2/4 edema bilateral lower extremities. No calf tenderness. Shobha wraps on bilaterally. Musculoskeletal: Mild polyarthritis Spinal Curvatures: Slight increased thoracic kyphosis. No spinal or paraspinal tenderness Weight bearing status/transfers/ADLs: Weightbearing as tolerated. Ambulated 234 feet with gait beltand rolling walker. Touch assist walk 10 feet. Touch assist walk 150 feet. Independent for lying tositting on side of bed. Touch assist for sit to stand. Touch assist for chair to bed transfer. Skin: Thin and dry. Transparent dressing left elbow. Scattered bruising bile upper extremities. Neurological: Cranial nerves intact Normal sensation distally 4+/5 bilateral upper extremity strength 4/5 bilateral lower extremity strength Normal hand grasp bilaterally A decreased shoulder range of motion bilaterally left worse than right 1/4 bilateral upper extremity reflexes 1/4 bilateral lower extremity reflexes Psychiatric: Alert, pleasant, and cooperative. Assessment: Debility gait disturbance with acute on chronic kidney disease cellulitis status post septic left knee. Diabetes with diabetic polyneuropathy. Plan: Continue acute rehabilitation physical and occupational therapy services. Shobha wraps and elevation. Diuresis per medical service. Work to minimize fall risk. Encourage foot elevation. Plan Home alone multilevel set up with home care services with estimated discharge date September 08. Risks/benefits of meds, treatments considered. Therapy notes reviewed. Discussed with staff. PMH/SH reviewed and unchanged Note: This dictation was created with assistance of voice recognition software. Phonic and/or minorgrammatical errors may exist. Medications reviewed and are up to date Shaka Navarrete LPN, am scribing for, and in the presence of Dr. Shahriar LEWIS. IDr. Shahriar DO , personally performed the services described in this documentation, as described by Shaka Mroeno LPN in my presence and it is both accurate and complete. Digitally Signed by ROZ DE DO on 09/01/2023 11:44 AM Car[place] [id number] Note Subjective Patient states he is doing good this morning. He is up walking with four-wheel walker and therapy services, walked about 100 feet this morning without any shortness of breath or conversational dyspnea. She reported a one-time elevated low-grade temp last night of 995, denies any chills. WBC currently stable at 5.2. Follow-up CBC pending. Currently asymptomatic with no signs or symptoms of infection. Denies any lightheadedness, dizziness, headache with blood pressures ranging 142/70 1 50/84. Denies any glycemic reactions, not currently requiring the 5 units of Humalog related to blood sugars range 93 112. Denies any uncontrolled pain this morning Objective General: No acute distress, alert and oriented. Ambulating with rolling walker and therapy services. Appears comfortable and does not appear in acute pain. Pleasant and cooperative. Good eye contact with flat affect. Interactive. Answers questions appropriately HEENT: EOMI, no nasal drainage, and moist mucous membranes Respiratory: Lungs are clear to auscultation. Respirations are unlabored on room air. No cough, congestion, or conversational dyspnea Cardiovascular: Heart rate is regular. No bradycardia, tachycardia, or heart murmur Edema/Varicosities of Extremities: 1+ edema to the bilateral extremities. Tubigrip's and NEMO hose in place bilaterally Gastrointestinal: Abdomen is soft, nontender, and nondistended. Bowel sounds are present in all 4 quadrants Genitourinary: No CVA tenderness, bladder distention, or suprapubic tenderness VITALS RkpwatLcxuRTXlsfbKJCoJ2CFM6OesmFz(kg) 08/31 21:26----570925JF39/35293.6 08/31 17:1037.5--731909DZ35/89965.6 08/31 08:5936.8--93--90RA12/77165.9 08/31 00:3337--687668EZ 08/30 16:0736.6--167333YY 24 Hr Tmax: 37.5 at 08/31 17:10 36 Hr Tmax: 37.5 at 08/31 17:10 Vital Signs are the last 5 in the past 48 hours. Weights display the last 5 within 7 days. Initial Wt: 08/25 117.9 kg 259 lb Current Wt: 08/31 131.0 kg 288 lb LABS No 36 Hour Lab Data Medications Active Inpt Meds: ammonium lactate topical (Lac-Hydrin topical cream 12%) Start: 08/27/23 9:01:00 EST, Dose = 1 keenan, Topical, BID, Apply to: BLE, Cream, 08/27/23 9:01:00 EST apixaban (Eliquis) Start: 08/26/23 21:00:00 EST, Dose = 2.5 mg, = 1 tab(s), Oral, BID, Indication for Use Atrial fibrillation, 08/26/23 17:42:00 EST atorvastatin Start: 08/30/23 21:00:00 EST, Dose = 40 mg, = 1 tab(s), Oral, qHS, 08/30/23 17:09:00 EST bumetanide Start: 08/30/23 17:09:00 EST, Dose = 1 mg, = 1 tab(s), Oral, BID, 08/30/23 17:09:00 EST calcitriol Start: 08/27/23 9:00:00 EST, Dose = 0.25 mcg, = 1 cap(s), Oral, Daily, 0, 08/26/23 17:42:00 EST carvedilol (Coreg) Start: 08/30/23 17:09:00 EST, Dose = 6.25 mg, = 1 tab(s), Oral, BIDM, 08/30/23 17:09:00 EST famotidine Start: 08/31/23 9:00:00 EST, Dose = 20 mg, = 1 tab(s), Oral, qDay, 08/31/23 9:00:00 EST gabapentin Start: 08/27/23 9:00:00 EST, Dose = 300 mg, = 1 cap(s), Oral, Daily, 0, 08/26/23 17:42:00 EST gabapentin Start: 08/27/23 9:00:00 EST, Dose = 100 mg, = 1 cap(s), Oral, Daily, 0, 08/26/23 17:43:00 EST hydrALAZINE Start: 08/30/23 9:00:00 EST, Dose = 25 mg, = 1 tab(s), Oral, TID, 0, 08/30/23 7:45:00 EST influenza virus vaccine, inactivated (Fluad Quadrivalent PF [id number]) Start: 08/26/23 19:00:00 EST, Dose = 0.5 mL, Susp, Intramuscular, Vaccine, 1 dose(s), ROSETTA (LTCH)/ WDLN, 0, 08/26/23 18:32:00 EST insulin glargine (Lantus) Start: 08/27/23 8:00:00 EST, Dose = 15 unit(s), = 0.15 mL, Subcutaneous (INT), Daily, Rate: 0 mL/hr, Infuse over: 0 minute(s), 08/26/23 17:43:00 EST insulin lispro (HumaLOG) (HumaLOG 100 units/mL subcutaneous solution) Start: 08/26/23 21:58:00 EST,Dose = 5 unit(s), = 0.05 mL, Subcutaneous, BIDAC, 0, 08/26/23 21:58:00 EST isosorbide mononitrate Start: 08/31/23 7:00:00 EST, Dose = 30 mg, = 1 tab(s), Oral, qDayAC, 0, 08/30/23 17:08:00 EST terazosin Start: 08/26/23 21:00:00 EST, Dose = 2 mg, = 1 cap(s), Oral, qHS, 08/26/23 17:43:00 EST Active PRN Meds: Al hydroxide/Mg hydroxide/simethicone (Maalox) Start: 08/26/23 17:19:00 EST, Dose = 30 mL, Susp, Oral, q6h, PRN, Indigestion, 08/26/23 17:19:00 EST acetaminophen Start: 08/26/23 17:42:00 EST, Dose = 650 mg, = 2 tab(s), Oral, q6hr, PRN, as needed for fever, 08/26/23 17:42:00 EST acetaminophen Start: 08/26/23 17:42:00 EST, Dose = 650 mg, = 2 tab(s), Oral, q6hr, PRN, as needed for pain, 08/26/23 17:42:00 EST diclofenac topical (diclofenac 1% topical gel) Start: 08/26/23 17:42:00 EST, Dose = 1 keenan, Topical,BID, PRN, Pain, Apply to: knees, Gel, 08/26/23 17:42:00 EST docusate (Colace) Start: 08/26/23 17:19:00 EST, Dose = 100 mg, = 1 cap(s), Oral, BID, PRN, Constipation, 08/26/23 17:19:00 EST glucagon (GlucaGen) Start: 08/26/23 17:19:00 EST, Dose = 1 mg, = 1 mL, Intramuscular, AsDirected, PRN, Hypoglycemia, if unresponsive, NO IV ACCESS & blood glucose less than 70mg/dL. If still unresponsive after 2 minutes, REPEAT x1., 08/26/23 17:19:00 EST glucose (Dextrose 50% IV Push) Start: 08/26/23 17:19:00 EST, Dose = 12.5 gram(s), = 25 mL, IV Push,AsDirected, PRN, Hypoglycemia, if unresponsive WITH IV ACCESS & blood glucose less than 70mg/dL. If still unresponsive after 2 minutes, REPEAT x1., 08/26/23 17:19:00 EST glucose Start: 08/26/23 17:19:00 EST, Dose = 16 gram(s), = 4 tab(s), Chewed, AsDirected, PRN, Hypoglycemia, DIABETIC PATIENT if responsive & blood glucose less than 70mg/dL. If blood glucose less than 70mg/dL after 15 minutes, REPEAT x1., 0, 08/26/23 17:1... glycerin (glycerin adult rectal suppository) Start: 08/26/23 17:19:00 EST, Dose = 1 supp, Supp, Rectal, Daily, PRN, Constipation, 08/26/23 17:19:00 EST magnesium hydroxide (Milk of Magnesia) Start: 08/26/23 17:19:00 EST, Dose = 30 mL, Susp-Oral, Oral,Daily, PRN, Constipation, 08/26/23 17:19:00 EST polyethylene glycol 3350 (Miralax Powder Packet) Start: 08/26/23 17:19:00 EST, Dose = 17 gram(s), =15 mL, Oral, qDay, PRN, Constipation, 08/26/23 17:19:00 EST traMADol Start: 08/27/23 9:09:00 EST, Dose = 100 mg, = 2 tab(s), Oral, BID, PRN, Pain, scale 7-10, 0, 08/27/23 9:09:00 EST One Time Meds: None Active IV Meds: None Problems (11) Acute kidney injury superimposed on chronic kidney disease (0615248540) CAESAR (acute kidney injury) (0492626294) Anemia in chronic kidney disease (CKD) (675635213) Cellulitis (388681356) Debility (07291944) Diabetes (945695587) HTN (hypertension) (9936905427) Hyperlipidemia (13268647) Morbid obesity (220345949) Septic joint of left knee joint (114211728) Type 1 diabetes (153186610) ASSESSMENT/PLAN: Acute diastolic CHF exacerbation complicated by medication noncompliance in the outpatient setting apparently he had run out of his diuretics, resulted in acute dyspnea and respiratory failure, Trenddaily weights, currently stable. Continues on low-sodium diet Acute kidney disease and chronic kidney disease previously scheduled for a fistula placement this was put on hold due to the acute CHF exacerbation. Follow-up with nephrology continue to monitor renal function closely given compromised creatinine currently improved at 3.34. Follow-up BMP pending Bilateral knee effusion status post aspiration, reportedly cultures negative no antibiotics in place the present time Severe venous stasis bilateral lower extremities, wound team following Extensive fluid overload with pitting edema up into the abdomen trending volume status closely. Compression stockings ordered History of A-fib rate controlled continue Eliquis for anticoagulation Uncontrolled hypertension, hydralazine and Imdur increased. Labetalol changed to Coreg and Lasix now off, appreciate cardiology recommendations trending blood pressures closely BPH terazosin Chronic neuropathic pain renally dose gabapentin Diabetes mellitus type 2, continue with Humalog and Lantus. Blood sugars currently stable Acute pain, mostly bilateral knee pain secondary to the recent effusions, continues tramadol 100 mgtwice daily as needed, and as needed Tylenol. Severe gait dysfunction, working with PT and OT services Trial of Bumex for active diuresis, responding fairly well Blood pressures remain somewhat uncontrolled, increase Coreg 12.5, increase hydralazine to 50 3 times daily Lab work pending for today trending renal function with changes in diuretics Medications reviewed and up to date This document was transcribed using dictation software and may contain typographical errors. I, Stephanie Schroeder RN, am scribing for , and in the presence of Dr. Mitchell. I, Dr. Mitchell, personally performed the services described in this documentation, as scribed by, Stephanie Schroeder RN in my presence and it is both accurate and complete. Digitally Signed by MEG MITCHELL DO on 09/02/2023 03:45 PM [place] [id number] Physical medicine and rehab Progress note IN ERROR, DID NOT SEE Digitally Signed by ROZ DE DO on 08/31/2023 12:54 PM [place] [id number] Note Subjective Patient reports he is doing well. States he is eating and drinking well. He does note that he has had some hypoglycemia. States he is on Novolin are 10 units at home with each meal as well as 15 units of Lantus. States that he has been refusing his Lantus as he states his blood sugar is too low. States at home if his blood sugars less than 100 he does not take any insulin. He states that he is eating 3 meals a day as well as a snack. Does feel he is getting stronger. Denies any dizziness or lightheadedness. Denies any pain Objective General: Alert, oriented NAD. Appears comfortable sitting in wheelchair, no acute pain noted. Pleasant. Calm and cooperative. Good eye contact, flat affect HEENT: EOMI, no nasal drainage, MMM Respiratory: LCTA nonlabored on room air; no cough/congestion Cardiovascular: Heart rate regular; no tachycardia; no heart murmur Edema/Varicosities of Extremities: 3+ edema BLE, compression stockings on Gastrointestinal: Bowel sounds present x 4 with abdomen soft/nondistended/nontender Genitourinary: No CVA tenderness, no suprapubic tenderness, no bladder distention. VITALS [id number](kg) 08/31 00:3337--[id number]/39229.6 08/30 16:0736.6--[id number]/93004.6 08/30 10:1236.9--[id number]/95772.9 08/30 05:2136.3--[id number] 08/29 20:51----80----RA 24 Hr Tmax: 37 at 08/31 00:33 36 Hr Tmax: 37 at 08/31 00:33 Vital Signs are the last 5 in the past 48 hours. Weights display the last 5 within 7 days. Initial Wt: 08/25 117.9 kg 259 lb Current Wt: 08/30 132.0 kg 290 lb LABS No 36 Hour Lab Data Medications Active Inpt Meds: ammonium lactate topical (Lac-Hydrin topical cream 12%) Start: 08/27/23 9:01:00 EST, Dose = 1 keenan, Topical, BID, Apply to: BLE, Cream, 08/27/23 9:01:00 EST apixaban (Eliquis) Start: 08/26/23 21:00:00 EST, Dose = 2.5 mg, = 1 tab(s), Oral, BID, Indication for Use Atrial fibrillation, 08/26/23 17:42:00 EST atorvastatin Start: 08/30/23 21:00:00 EST, Dose = 40 mg, = 1 tab(s), Oral, qHS, 08/30/23 17:09:00 EST bumetanide Start: 08/30/23 17:09:00 EST, Dose = 1 mg, = 1 tab(s), Oral, BID, 08/30/23 17:09:00 EST calcitriol Start: 08/27/23 9:00:00 EST, Dose = 0.25 mcg, = 1 cap(s), Oral, Daily, 0, 08/26/23 17:42:00 EST carvedilol (Coreg) Start: 08/30/23 17:09:00 EST, Dose = 6.25 mg, = 1 tab(s), Oral, BIDM, 08/30/23 17:09:00 EST famotidine Start: 08/31/23 9:00:00 EST, Dose = 20 mg, = 1 tab(s), Oral, qDay, 08/31/23 9:00:00 EST gabapentin Start: 08/27/23 9:00:00 EST, Dose = 300 mg, = 1 cap(s), Oral, Daily, 0, 08/26/23 17:42:00 EST gabapentin Start: 08/27/23 9:00:00 EST, Dose = 100 mg, = 1 cap(s), Oral, Daily, 0, 08/26/23 17:43:00 EST hydrALAZINE Start: 08/30/23 9:00:00 EST, Dose = 25 mg, = 1 tab(s), Oral, TID, 0, 08/30/23 7:45:00 EST influenza virus vaccine, inactivated (Fluad Quadrivalent PF [id number]) Start: 08/26/23 19:00:00 EST, Dose = 0.5 mL, Susp, Intramuscular, Vaccine, 1 dose(s), ROSETTA (LTCH)/ WDLN, 0, 08/26/23 18:32:00 EST insulin glargine (Lantus) Start: 08/27/23 8:00:00 EST, Dose = 15 unit(s), = 0.15 mL, Subcutaneous (INT), Daily, Rate: 0 mL/hr, Infuse over: 0 minute(s), 08/26/23 17:43:00 EST insulin lispro (HumaLOG) (HumaLOG 100 units/mL subcutaneous solution) Start: 08/26/23 21:58:00 EST,Dose = 5 unit(s), = 0.05 mL, Subcutaneous, BIDAC, 0, 08/26/23 21:58:00 EST isosorbide mononitrate Start: 08/31/23 7:00:00 EST, Dose = 30 mg, = 1 tab(s), Oral, qDayAC, 0, 08/30/23 17:08:00 EST terazosin Start: 08/26/23 21:00:00 EST, Dose = 2 mg, = 1 cap(s), Oral, qHS, 08/26/23 17:43:00 EST Active PRN Meds: Al hydroxide/Mg hydroxide/simethicone (Maalox) Start: 08/26/23 17:19:00 EST, Dose = 30 mL, Susp, Oral, q6h, PRN, Indigestion, 08/26/23 17:19:00 EST acetaminophen Start: 08/26/23 17:42:00 EST, Dose = 650 mg, = 2 tab(s), Oral, q6hr, PRN, as needed for fever, 08/26/23 17:42:00 EST acetaminophen Start: 08/26/23 17:42:00 EST, Dose = 650 mg, = 2 tab(s), Oral, q6hr, PRN, as needed for pain, 08/26/23 17:42:00 EST diclofenac topical (diclofenac 1% topical gel) Start: 08/26/23 17:42:00 EST, Dose = 1 keenan, Topical,BID, PRN, Pain, Apply to: knees, Gel, 08/26/23:42:00 EST docusate (Colace) Start: 08/26/23 17:19:00 EST, Dose = 100 mg, = 1 cap(s), Oral, BID, PRN, Constipation, 08/26/23 17:19:00 EST glucagon (GlucaGen) Start: 08/26/23 17:19:00 EST, Dose = 1 mg, = 1 mL, Intramuscular, AsDirected, PRN, Hypoglycemia, if unresponsive, NO IV ACCESS & blood glucose less than 70mg/dL. If still unresponsive after 2 minutes, REPEAT x1., 08/26/23 17:19:00 EST glucose (Dextrose 50% IV Push) Start: 08/26/23 17:19:00 EST, Dose = 12.5 gram(s), = 25 mL, IV Push,AsDirected, PRN, Hypoglycemia, if unresponsive WITH IV ACCESS & blood glucose less than 70mg/dL. If still unresponsive after 2 minutes, REPEAT x1., 08/26/23 17:19:00 EST glucose Start: 08/26/23 17:19:00 EST, Dose = 16 gram(s), = 4 tab(s), Chewed, AsDirected, PRN, Hypoglycemia, DIABETIC PATIENT if responsive & blood glucose less than 70mg/dL. If blood glucose less than 70mg/dL after 15 minutes, REPEAT x1., 0, 08/26/23 17:1... glycerin (glycerin adult rectal suppository) Start: 08/26/23 17:19:00 EST, Dose = 1 supp, Supp, Rectal, Daily, PRN, Constipation, 08/26/23 17:19:00 EST magnesium hydroxide (Milk of Magnesia) Start: 08/26/23 17:19:00 EST, Dose = 30 mL, Susp-Oral, Oral,Daily, PRN, Constipation, 08/26/23 17:19:00 EST polyethylene glycol 3350 (Miralax Powder Packet) Start: 08/26/23 17:19:00 EST, Dose = 17 gram(s), =15 mL, Oral, qDay, PRN, Constipation, 08/26/23 17:19:00 EST traMADol Start: 08/27/23 9:09:00 EST, Dose = 100 mg, = 2 tab(s), Oral, BID, PRN, Pain, scale 7-10, 0, 08/27/23 9:09:00 EST One Time Meds: None Active IV Meds: None Problems (11) Acute kidney injury superimposed on chronic kidney disease (1099888660) CAESAR (acute kidney injury) (8141786322) Anemia in chronic kidney disease (CKD) (531253638) Cellulitis (115478307) Debility (48128101) Diabetes (250821288) HTN (hypertension) (0539691504) Hyperlipidemia (09172849) Morbid obesity (446921781) Septic joint of left knee joint (805781409) Type 1 diabetes (513603303) ASSESSMENT/PLAN: Acute diastolic CHF exacerbation complicated by medication noncompliance in the outpatient setting apparently he had run out of his diuretics, resulted in acute dyspnea and respiratory failure, Trenddaily weights, currently stable. Low- sodium diet Acute kidney disease and chronic kidney disease previously scheduled for a fistula placement this was put on hold due to the acute CHF exacerbation. Follow-up with nephrology continue to monitor renal function closely given compromised creatinine currently improved at 3.34 Bilateral knee effusion status post aspiration, reportedly cultures negative no antibiotics in place the present time Severe venous stasis bilateral lower extremities, wound team following Extensive fluid overload with pitting edema up into the abdomen trending volume status closely. Compression stockings ordered History of A-fib rate controlled continue Eliquis for anticoagulation Uncontrolled hypertension increase in hydralazine yesterday as well as an increase in Imdur and labetalol changed to Coreg, appreciate cardiology recommendations trending blood pressures over the next 24 hours BPH terazosin Chronic neuropathic pain renally dose gabapentin Diabetes mellitus type 2, continue with Humalog and Lantus. Blood sugars currently stable Acute pain, mostly bilateral knee pain secondary to the recent effusions, continues tramadol 100 mgtwice daily as needed, and as needed Tylenol. Severe gait dysfunction, working with PT and OT services Acute diuresis, cardiology recommending Bumex, follow-up lab work scheduled for tomorrow with the acute kidney injury Medications reviewed and up to date This document was transcribed using dictation software and may contain typographical errors. Alexandria Navarrete RN, am scribing for , and in the presence of Dr. Mitchell. I, Dr. Mitchell, personally performed the services described in this documentation, as scribed byAlexandria RN in my presence and it is both accurate and complete. Digitally Signed by MEG MITCHELL DO on 08/31/2023 03:42 PM [place] [id number] Cardiology Consult note Date of Service 08/30/2023 Reason for Consultation CHF Referring Physician Internal medicine History of Present Illness Patient is a 73-year-old male with a past medical history significant for heart failure with preserved ejection fraction, hypertension, type 2 diabetes on insulin for long-term, chronic kidney disease being closely followed with nephrology, obesity, chronic venous stasis with DVT, reported history of A-fib on Eliquis 2.5 mg twice a day was admitted at [facility] for possible septic arthritis of knee and subsequently transferred to acute rehab. Cardiology consulted in view of his significantcardiac comorbidities. Patient does have some shortness of breath also his blood pressure is elevated. He denies any chestpain. Denies any palpitations. He states that he has a history of A-fib. No previous history of coronary disease or stroke. He has been maintained on low-dose of Eliquis 2.5 mg twice a day for unclear reason. Ideally he should be on 5 mg twice a day to prevent thromboembolic stroke. Review of Systems All systems reviewed negative as per HPI Physical Exam Vitals and Measurements T: 36.6 C (Oral) TMIN: 36.3 C (Oral) TMAX: 36.9 C (Oral) HR: 85 RR: 18 BP: 172/90 SpO2: 93% WT: 132.0 kg Weight Current Weight Dosing Weight: 131.6 kg (08/28/23) Current Weight: 132 kg (08/30/23) Dosing Weight: 131.6 kg (08/26/23) Current Weight: 131.2 kg (08/29/23) General Appearance: Comfortable, not in distress EENT: Moist mucous membranes Neck: JVD elevated Cardiac: First and second heart sound normally heard, no obvious murmurs. Bilateral pitting pedal edema up to the thighs, JVD elevated Lungs: Clear to auscultation, no crackles or wheezes Abdomen: Soft, nontender, bowel sounds here Musculoskeletal: No active joint inflammation Extremities: Both legs covered in dressing Neurological: Alert, oriented 3, able to move lower extremities Lab Results No 36 Hour Lab Data Assessment/Plan Acute kidney injury superimposed on chronic kidney disease Debility HTN (hypertension) Hyperlipidemia Morbid obesity Septic joint of left knee joint Type 1 diabetes Orders: atorvastatin, Start: 08/30/23 21:00:00 EST, Dose = 40 mg, = 1 tab(s), Oral, qHS, 08/30/23 17:09:00 EST bumetanide, Start: 08/30/23 17:09:00 EST, Dose = 1 mg, = 1 tab(s), Oral, BID, 08/30/23 17:09:00 EST carvedilol, Start: 08/30/23 17:09:00 EST, Dose = 6.25 mg, = 1 tab(s), Oral, BIDM, 08/30/23 17:09:00EST isosorbide mononitrate, Start: 08/31/23 7:00:00 EST, Dose = 30 mg, = 1 tab(s), Oral, qDayAC, 0, 08/30/23 17:08:00 EST Complete Blood Count Complete Metabolic Panel Obtain old medical records Impression: 1. Acute on chronic decompensated heart failure with preserved ejection fraction. I do not have a recent echocardiogram report. 2. Uncontrolled hypertension 3. Chronic kidney disease 4. Type 2 diabetes on insulin 6. Anemia of chronic disease 5. Hyperlipidemia 7. Obesity Plan: Patient still has significant volume overload. Will change his Lasix to Bumex 1 mg twice a day. Will recheck his labs including LFT on Wednesday. His blood pressure should be maintained less than 130/80. Continue the hydralazine 25 mg 3 times daily. Will increase Imdur to 30 mg daily and change labetalol to carvedilol 6.25 mg twice a day. He should be on 2 g sodium diet. Daily weight. Cardiology will see him on to assess his volume status and further recommendation on diuretics. Meantime please get records from [facility] about his last echocardiogram, EKG, office notes,and any cardiac evaluation. Cardiology will continue to follow. Problem List/Past Medical History Ongoing Acute kidney injury superimposed on chronic kidney disease Debility Hyperlipidemia Morbid obesity Type 1 diabetes Historical No qualifying data Procedure/Surgical History No qualifying data available. Medications Inpatient acetaminophen, 650 mg= 2 tab(s), Oral, q6hr, PRN acetaminophen, 650 mg= 2 tab(s), Oral, q6hr, PRN atorvastatin, 40 mg= 1 tab(s), Oral, qHS bumetanide, 1 mg= 1 tab(s), Oral, BID calcitriol, 0.25 mcg= 1 cap(s), Oral, Daily Colace, 100 mg= 1 cap(s), Oral, BID, PRN Coreg, 6.25 mg= 1 tab(s), Oral, BIDM Dextrose 50% IV Push, 12.5 gram(s)= 25 mL, IV Push, AsDirected, PRN diclofenac 1% topical gel, 1 keenan, Topical, BID, PRN Eliquis, 2.5 mg= 1 tab(s), Oral, BID famotidine, 20 mg= 1 tab(s), Oral, qDay Fluad Quadrivalent PF [id number], 0.5 mL, Intramuscular, Vaccine gabapentin, 300 mg= 1 cap(s), Oral, Daily gabapentin, 100 mg= 1 cap(s), Oral, Daily GlucaGen, 1 mg= 1 mL, Intramuscular, AsDirected, PRN glucose, 16 gram(s)= 4 tab(s), Chewed, AsDirected, PRN glycerin adult rectal suppository, 1 supp, Rectal, Daily, PRN HumaLOG 100 units/mL subcutaneous solution, 5 unit(s)= 0.05 mL, Subcutaneous, BIDAC hydrALAZINE, 25 mg= 1 tab(s), Oral, TID isosorbide mononitrate, 30 mg= 1 tab(s), Oral, qDayAC Lac-Hydrin topical cream 12%, 1 keenan, Topical, BID Lantus, 15 unit(s)= 0.15 mL, Subcutaneous (INT), Daily Maalox, 30 mL, Oral, q6h, PRN Milk of Magnesia, 30 mL, Oral, Daily, PRN Miralax Powder Packet, 17 gram(s)= 15 mL, Oral, qDay, PRN terazosin, 2 mg= 1 cap(s), Oral, qHS traMADol, 100 mg= 2 tab(s), Oral, BID, PRN Home acetaminophen, 650 mg, Oral, q6hr, PRN acetaminophen, 650 mg, Oral, q6hr, PRN Admelog 100 units/mL injectable solution VIAL, 5 unit(s), Subcutaneous, BIDAC atorvastatin, 20 mg, Oral, qHS calcitriol 0.25 mcg oral capsule, 0.25 mcg= 1 cap(s), Oral, Daily diclofenac 1% topical gel, 1 keenan, Topical, BID, PRN Eliquis 2.5 mg oral tablet, 2.5 mg= 1 tab(s), Oral, BID famotidine 20 mg oral tablet, 20 mg= 1 tab(s), Oral, BID furosemide, 20 mg, Oral, BID gabapentin, 300 mg, Oral, Daily gabapentin 100 mg oral capsule, 100 mg= 1 cap(s), Oral, Daily hydrALAZINE 10 mg oral tablet, 10 mg= 1 tab(s), Oral, TID isosorbide mononitrate 10 mg oral tablet, 15 mg= 1.5 tab(s), Oral, Daily labetalol 100 mg oral tablet, 100 mg= 1 tab(s), Oral, BID Lantus, 15 unit(s), Subcutaneous, Daily terazosin 2 mg oral capsule, 2 mg= 1 cap(s), Oral, qHS Allergies NKA Social History Tobacco Nicotine Use: Never (less than 100 in lifetime)., 08/25/2023 Immunizations SARS-CoV-2 mRNA (tozinameran) vaccine: 0.3 unknown unit (06/27/21) SARS-CoV-2 mRNA (tozinameran) vaccine: 0.3 unknown unit (06/06/21) Digitally Signed by ALEXIS AWAN MD on 08/30/2023 05:18 PM [place] [id number] Physical medicine and rehab Progress note Date of Service 08/30/23 Chief Complaint Acute on chronic kidney disease Subjective Patient is a 73 -year-old male seen today in follow-up. Case discussed in team staffing. Weekly rehab report is reviewed. Case discussed with family. All questions are answered. Plan is to continue acute rehab with PT OT and speech-language therapy services. Continue to work on gait training range of motion strengthening ADLs self-care speech-language and dysphagia therapy. Partial assist mobility and self-care Goal is for discharge home at a modified independent level with probable home care services. Plan discharge date 09/08 Barriers to discharge weakness and dyspnea. For further details, pleas2/e see electronic team staffing note Medication list reviewed Objective Vitals and Measurements T: 36.3 C (Oral) TMIN: 36.3 C (Oral) TMAX: 36.5 C (Oral) HR: 84 RR: 16 BP: 160/82 SpO2: 98% WT: 132.0 kg Intake and Output 7AM Yesterday to 7AM Today Intake and Output (Last 24 hours) Intake Oral Intake 220.00 Output Total Summary Total Intake 220.00 Total Output 0.00 Fluid Balance 220.00 Physical Exam General Appearance: Alert and oriented 3 no apparent distress Head: Normocephalic no evidence of trauma EENT: Pupils equal and reactive to light and accommodation no erythema. Ears with no external lesions or discharge. Nose clear nares patent no discharge. Throat normal healthy dentition no redness orerythema. Neck: Trachea midline. No lymphatic adenopathy Cardiac: Regular rate and rhythm, no rubs or murmurs Lungs: Clear to auscultation, no adventitious sounds, good aeration Abdomen: Soft nontender no organomegaly or rebound positive bowel sounds Musculoskeletal: Intact range of motion no erythema no polyarthritic changes Extremities: 2 out of 4 edema. No calf tenderness. Neurological: 4 out of 5 strength. Balance poor. Decreased sensation distally. Absent NuCort reflexes. Cranial nerves intact. Skin: Intact without rashes or erythema Psychiatric: Mood good. No anxiety depression Medication list reviewed Therapy notes reviewed Weight Current Weight Dosing Weight: 131.6 kg (08/28/23) Current Weight: 132 kg (08/30/23) Dosing Weight: 131.6 kg (08/26/23) Current Weight: 131.2 kg (08/29/23) Medications Medications (27) Active Scheduled: (15) ammonium lactate Cream 12% 1 keenan, Topical, BID apixaban 2.5 mg tablet 2.5 mg 1 tab(s), Oral, BID atorvastatin 20 mg tablet 20 mg 1 tab(s), Oral, qHS calcitriol 0.25 mcg Capsule 0.25 mcg 1 cap(s), Oral, Daily famotidine 20 mg tablet 20 mg 1 tab(s), Oral, BID furosemide 20 mg tablet 20 mg 1 tab(s), Oral, BID gabapentin 100 mg Capsule 100 mg 1 cap(s), Oral, Daily gabapentin 300 mg Capsule 300 mg 1 cap(s), Oral, Daily hydralazine 25 mg Tablet 25 mg 1 tab(s), Oral, TID influenza virus vaccine, inactivated adjuvanted preservative-free quadrivalent Susp (Fluad) 0.5 mL,Intramuscular, Vaccine insulin glargine 15 unit(s) 0.15 mL, Subcutaneous (INT), Daily insulin lispro 100 units/mL Soln (3 mL) 5 unit(s) 0.05 mL, Subcutaneous, BIDAC isosorbide mononitrate 30 mg ER tablet 15 mg 0.5 tab(s), Oral, qDayAC labetalol 100 mg tablet 100 mg 1 tab(s), Oral, BID terazosin 2 mg Capsule 2 mg 1 cap(s), Oral, qHS Continuous: (0) PRN: (12) acetaminophen 325 mg Tablet 650 mg 2 tab(s), Oral, q6hr acetaminophen 325 mg Tablet 650 mg 2 tab(s), Oral, q6hr Al hydrox/Mg hydrox/simethicone 200-200-20 mg/5 mL Susp UD 30 mL, Oral, q6h dextrose 50% Solution Disp syringe 50 mL 12.5 gram(s) 25 mL, IV Push, AsDirected diclofenac topical 1% Gel 50 g 1 keenan, Topical, BID docusate sodium 100 mg Capsule 100 mg 1 cap(s), Oral, BID glucagon recombinant 1 mg 1 mg 1 mL, Intramuscular, AsDirected glucose 4 gm Chewable 16 gram(s) 4 tab(s), Chewed, AsDirected glycerin adult Suppository 1 supp, Rectal, Daily magnesium hydroxide 8% Suspension 30 mL UD 30 mL, Oral, Daily polyethylene glycol 3350 - UD packet 17 gram(s) 15 mL, Oral, qDay tramadol 50 mg Tablet 100 mg 2 tab(s), Oral, BID Lab Results No 36 Hour Lab Data EKG No qualifying data available. Assessment/Plan 1. Debility Continue acute rehabilitation physical and Occupational Therapy 2. Acute kidney injury superimposed on chronic kidney disease Avoid nephrotoxic medications 3. HTN (hypertension) 4. Septic joint of left knee joint Resolved 5. Type 1 diabetes Diet and medications 6. Hyperlipidemia Statin 7. Morbid obesity Encourage slow weight loss Orders: Diet Order Time Spent 25 minutes so Digitally Signed by ROZ DE DO on 08/30/2023 10:50 AM Digitally Signed by ROZ DE DO on 08/30/2023 10:57 AM [place] [id number] Evaluation + Plan noteExtracted from: Title:Clinical Document Author:ROZ DE Date:08/27/23 Acute Inpatient Rehab Histor y and Physical Date of Service: 08/27/2023 Date of Admission: 08/26/2020 Attending Physician: Dr. [employer] 16 debility Etiologic Diagnosis Acute kidney injury Left knee effusion with gram-positive cocci History of Present Illness This is a 73-year-old male admitted to [facility] from [facility] Coumadin clinic stay 08/08 - 08/26 with past medical history of atrial fibrillation, chronic kidney disease stage IV with baseline creatinine at 3.4, diastolic congestive heart failure, diabetes mellitus type 2, hypertension, cardiorenal syndrome, and morbid obesity who presented to the emergency room after a fall to the floor with positive loss of consciousness. Attempt following did not remember how he ended up on the floor. He was found to have a left knee effusion with aspiration showing gram-positive cocci originally. He was treated for a septic joint. Lab work showing acute kidney injury with creatinine of 4.21 as well as decompensated diastolic congestive heart failure and received IV diuresis. Torsemide was initiated at 40 mg however acute kidney injury worsened and was transition to Lasix, IV Lasix was transitioned to oral Lasix 20 mg twice a day for discharge. Ejection fraction of 50%. He does have a history of right lower extremity superficial weeping wounds as well. Patient deemed medically stable transferred to [facility] rehab unit for physical and occupational therapy as well as medical supervision. Due to the fact that he had impairments of gait mobility ADLs and self-care and medical complexity, decision was made to admit her to the acute physical rehabilitation unit. Baseline functional status is independent, lives alone in a first-floor apartment. Admit functional status is currently at minimal assist. Today, patient is sitting up in wheelchair eating breakfast, no choking observed. Denies any nausea, vomiting, or GI upset. He states he does continue with pain to the bilateral knees. He has the as needed Tylenol in place for breakthrough pain but states that time this is ineffective. States the pain does increase with any kind of movement especially with therapy services. He has 2/4 edema to the bilateral lower extremities. Lungs are clear to auscultation. SpO2 ranging 94-96% on room air. Denies any cough or congestion states breathing is comfortable. Denies any lightheadedness, dizziness, or headache with blood pressures ranging 110/78 1 40/88. Denies any chest pain, chest pressure, or heart palpitations ranging 60 78. He does have some dry skin to the bilateral lower extremities this morning, no open areas however does have the hyperpigmentation bilaterally. Reports decreased sensation distally. No further effusion of the bilateral knees but reports he did have a recent aspiration with 60 cc of fluid out of the left knee and 100 cc out of the right knee. Denies fevers or chills. States therapy services went well this morning. Denies any glycemic reactions. Medications (25) Active Scheduled: (14) apixaban 2.5 mg tablet 2.5 mg 1 tab(s), Oral, BID atorvastatin 20 mg tablet 20 mg 1 tab(s), Oral, qHS calcitriol 0.25 mcg Capsule 0.25 mcg 1 cap(s), Oral, Daily famotidine 20 mg tablet 20 mg 1 tab(s), Oral, BID furosemide 20 mg tablet 20 mg 1 tab(s), Oral, BID gabapentin 100 mg Capsule 100 mg 1 cap(s), Oral, Daily gabapentin 300 mg Capsule 300 mg 1 cap(s), Oral, Daily hydralazine 10 mg Tablet 10 mg 1 tab(s), Oral, TID influenza virus vaccine, inactivated adjuvanted preservative-free quadrivalent Susp (Fluad) 0.5 mL, Intramuscular, Vaccine insulin glargine 15 unit(s) 0.15 mL, Subcutaneous (INT), Daily insulin lispro 100 units/mL Soln (3 mL) 5 unit(s) 0.05 mL, Subcutaneous, BIDAC isosorbide mononitrate 30 mg ER tablet 15 mg 0.5 tab(s), Oral, qDayAC labetalol 100 mg tablet 100 mg 1 tab(s), Oral, BID terazosin 2 mg Capsule 2 mg 1 cap(s), Oral, qHS Continuous: (0) PRN: (11) acetaminophen 325 mg Tablet 650 mg 2 tab(s), Oral, q6hr acetaminophen 325 mg Tablet 650 mg 2 tab(s), Oral, q6hr Al hydrox/Mg hydrox/simethicone 200-200-20 mg/5 mL Susp UD 30 mL, Oral, q6h dextrose 50% Solution Disp syringe 50 mL 12.5 gram(s) 25 mL, IV Push, AsDirected diclofenac topical 1% Gel 50 g 1 keenan, Topical, BID docusate sodium 100 mg Capsule 100 mg 1 cap(s), Oral, BID glucagon recombinant 1 mg 1 mg 1 mL, Intramuscular, AsDirected glucose 4 gm Chewable 16 gram(s) 4 tab(s), Chewed, AsDirected glycerin adult Suppository 1 supp, Rectal, Daily magnesium hydroxide 8% Suspension 30 mL UD 30 mL, Oral, Daily polyethylene glycol 3350 - UD packet 17 gram(s) 15 mL, Oral, qDay Review of Systems Constitutional: Denies weight changes fever or chills. Denies headache HEENT: Denies nystagmus and dizziness. Respiratory: Denies cough or congestion Cardiovascular: Denies chest pain, palpitations, uncontrolled blood pressure Gastrointestinal: Denies nausea with emesis. Genitourinary: Denies dysuria or urinary retention Neurological: Denies any cognitive deficits Musculoskeletal: Denies any joint or musculoskeletal pain Skin: Denies rashes or erythema. Right hip surgical incision Endocrine: Denies hot or cold intolerance. No hypoglycemia. Psychiatric: Denies changes in mental status. Allergic/immunologic: Denies environmental allergies or immune dysfunction Past Medical History: Atrial fibrillation Chronic kidney disease stage IV Diastolic congestive heart failure Diabetes mellitus type 2 Hypertension Cardiorenal syndrome Morbid obesity Procedure/Surgical History: Appendectomy Leg surgery Social History: Alcohol Details: Frequency: Denies Home/Environment Details: Domestic Concerns: None. Living situation: Lives alone first-floor set up in 1st level apartment. 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 Safe place to go: Yes. Lives In: Single level home, 1st floor bedroom, 1st floor bathroom. Current Home Treatments None. Professional Skilled Services or Special Community Resources None. Financial concerns: No. Spouse Name: None marital Status: Not Nutrition/Health Details: Appetite Good. Sexual Details: Sexually active: No Substance Abuse Details: Type: Denies use Tobacco Details: Nicotine Use: Denies use Family History: Denies family history of known cardiovascular/pulmonary disease Allergies: No known allergies Physical Exam General appearance: Sitting up in wheelchair. Alert and oriented, no acute distress. Appears comfortable and does not appear in acute pain. Pleasant card. Good eye contact with bright affect. Answers questions appropriately Head: Normocephalic no evidence of trauma HEENT: Pupils equal and reactive to light and accommodation, no erythema. Ears with no external lesions or discharge. Nose clear, nares patent, no discharge. Throat normal healthy definition, no redness or erythema. Neck: Trachea midline. No lymphatic adenopathy Cardiac: Regular rate and rhythm, no rubs or murmurs Lungs: Clear to auscultation. No respiratory distress on room air. Abdomen: Soft, nontender, no organomegaly or rebound tenderness. Positive bowel sounds Musculoskeletal: Intact range of motion, no erythema, no polyarthric changes Extremities: 2/4 edema to the bilateral lower extremities. Neurological: Cranial nerves intact. No nystagmus. Decreased sensation distally. Decreased bilateral shoulder motion bilaterally. 4/5 strength bilateral upper extremities. 4 -/5 strength to left lower extremity, 4+/5 strength to the right lower extremity. Skin: Dry skin to the bilateral lower extremities with hyperpigmentation. Psychiatric: Mood good. No anxiety or depression Vitals Signs(Last 24 hrs)__Last Charted Minimum Maximum Temp36.4(AUG 26 17:35)36.4(AUG 26 17:35)36.6(AUG 26 14:45) Heart Rate68(AUG 26 22:34)68(AUG 26 22:34)78(AUG 26 14:45) Resp Rate18(AUG 26 17:35)18(AUG 26 14:45)18(AUG 26 14:45) NDL201(AUG 26 22:34)110(AUG 26 22:34)H 148(AUG 26 14:45) DBP78(AUG 26 22:34)78(AUG 26 22:34)88(AUG 26 14:45) 36hr Labs 08/26 1644 Blood Glucose, [id number] Blood Glucose, [id number] Blood Glucose TSee Flowsheet Assessment/Plan Septic left knee. Lymphedema. Debility and gait disturbance. Medical committees of atrial fibrillation acute on chronic kidney disease stage IV congestive heart failure diastolic diabetes type 2 hypertension cardiorenal syndrome morbid obesity. Plan: Acute rehabilitation with physical and occupational therapy services. Lac-Hydrin and Tubigrip's lower extremity with elevation. Gentle diuresis per medical service. Anticoagulation Eliquis. As needed Tylenol for mild pain tramadol for moderate pain. Team staffing Wednesday regarding further goals plan of care and length of stay. Goal is for discharge back home alone with home care services. Condition complex, medically stable Post Admission Physician Evaluation Medical reconciliation performed. Old chart reviewed. Patient status on admission to rehab is medically stable but medically complex. Appropriate for admission to inpatient rehab facility due to need for 24-hour nursing and medical management in a hospital-based setting. Comparison with information on preadmission screening findings information to be consistent. Diagnoses to be monitored and treated include.: Septic left knee, atrial fibrillation, chronic kidney disease stage IV, diastolic congestive heart pressure, diabetes mellitus type 2, hypertension, cardiorenal syndrome, morbid obesity, neuropathy, GERD Rehabilitation physician to direct team staffing. See daily on rehabilitation rounds. Plan is for acute rehab with PT and OT therapy rehab nursing social work and nutrition for an acute interdisciplinary team rehab approach. Will work on gait training, ADLs, self-care, and strengthening, bowel and bladder program. DVT prophylaxis and medical management of comorbidities Medical Comorbidities at the Time of Admission Septic left knee Chronic kidney stage IV Atrial fibrillation Diastolic congestive heart. Diabetes mellitus type 2 Hypertension Cardiorenal syndrome Morbid obesity Hyperlipidemia Neuropathy Barriers to Discharge Functional medical impairments Consulting Physician Dr. Mitchell Estimated Length of Stay 2-3 weeks All medications reviewed and up to date Hortensia Navarrete RN, am scribing for, and in the presence of Dr. Shahriar Medina I, Dr. Shahriar Medina , personally performed the services described in this documentation, as described by Hortensia Schroeder RN in my presence and it is both accurate and complete accurate and complete. Future Appointments Appointment Date:09/30/2023 01:30:00 PM Scheduled Provider: Location:[facility] Appointment Type:CV OV Carojer Forbes 12-15-2023 Physical medicine and rehab History and physical note Acute Inpatient Rehab History and Physical Date of Service: 08/27/2023 Date of Admission: 08/26/2020 Attending Physician: Dr. [employer] 16 debility Etiologic Diagnosis Acute kidney injury Left knee effusion with gram-positive cocci History of Present Illness This is a 73-year-old male admitted to [facility] from [facility] Coumadin clinic stay 08/08 - 08/26 with past medical history of atrial fibrillation, chronic kidney disease stageIV with baseline creatinine at 3.4, diastolic congestive heart failure, diabetes mellitus type 2, hypertension, cardiorenal syndrome, and morbid obesity who presented to the emergency room after a fall to the floor with positive loss of consciousness. Attempt following did not remember how he endedup on the floor. He was found to have a left knee effusion with aspiration showing gram-positive cocci originally. He was treated for a septic joint. Lab work showing acute kidney injury with creatinine of 4.21 as well as decompensated diastolic congestive heart failure and received IV diuresis. Torsemide was initiated at 40 mg however acute kidney injury worsened and was transition to Lasix, IV Lasix was transitioned to oral Lasix 20 mg twice a day for discharge. Ejection fraction of 50%. He does have a history of right lower extremity superficial weeping wounds as well. Patient deemed medically stable transferred to [facility] unit for physical and occupational therapy as well as medical supervision. Due to the fact that he had impairments of gait mobility ADLs and self-care and medical complexity, decision was made to admit her to the acute physical rehabilitation unit. Baseline functional status is independent, lives alone in a first-floor apartment. Admit functional status is currently at minimal assist. Today, patient is sitting up in wheelchair eating breakfast, no choking observed. Denies any nausea, vomiting, or GI upset. He states he does continue with pain to the bilateral knees. He has the as needed Tylenol in place for breakthrough pain but states that time this is ineffective. States the pain does increase with any kind of movement especially with therapy services. He has 2/4 edema to the bilateral lower extremities. Lungs are clear to auscultation. SpO2 ranging 94-96% on room air. Denies any cough or congestion states breathing is comfortable. Denies any lightheadedness, dizziness, or headache with blood pressures ranging 110/78 1 40/88. Denies any chest pain, chest pressure, or heart palpitations ranging 60 78. He does have some dry skin tothe bilateral lower extremities this morning, no open areas however does have the hyperpigmentationbilaterally. Reports decreased sensation distally. No further effusion of the bilateral knees but re ports he did have a recent aspiration with 60 cc of fluid out of the left knee and 100 cc out of the right knee. Denies fevers or chills. States therapy services went well this morning. Denies any glycemic reactions. Medications (25) Active Scheduled: (14) apixaban 2.5 mg tablet 2.5 mg 1 tab(s), Oral, BID atorvastatin 20 mg tablet 20 mg 1 tab(s), Oral, qHS calcitriol 0.25 mcg Capsule 0.25 mcg 1 cap(s), Oral, Daily famotidine 20 mg tablet 20 mg 1 tab(s), Oral, BID furosemide 20 mg tablet 20 mg 1 tab(s), Oral, BID gabapentin 100 mg Capsule 100 mg 1 cap(s), Oral, Daily gabapentin 300 mg Capsule 300 mg 1 cap(s), Oral, Daily hydralazine 10 mg Tablet 10 mg 1 tab(s), Oral, TID influenza virus vaccine, inactivated adjuvanted preservative-free quadrivalent Susp (Fluad) 0.5 mL,Intramuscular, Vaccine insulin glargine 15 unit(s) 0.15 mL, Subcutaneous (INT), Daily insulin lispro 100 units/mL Soln (3 mL) 5 unit(s) 0.05 mL, Subcutaneous, BIDAC isosorbide mononitrate 30 mg ER tablet 15 mg 0.5 tab(s), Oral, qDayAC labetalol 100 mg tablet 100 mg 1 tab(s), Oral, BID terazosin 2 mg Capsule 2 mg 1 cap(s), Oral, qHS Continuous: (0) PRN: (11) acetaminophen 325 mg Tablet 650 mg 2 tab(s), Oral, q6hr acetaminophen 325 mg Tablet 650 mg 2 tab(s), Oral, q6hr Al hydrox/Mg hydrox/simethicone 200-200-20 mg/5 mL Susp UD 30 mL, Oral, q6h dextrose 50% Solution Disp syringe 50 mL 12.5 gram(s) 25 mL, IV Push, AsDirected diclofenac topical 1% Gel 50 g 1 keenan, Topical, BID docusate sodium 100 mg Capsule 100 mg 1 cap(s), Oral, BID glucagon recombinant 1 mg 1 mg 1 mL, Intramuscular, AsDirected glucose 4 gm Chewable 16 gram(s) 4 tab(s), Chewed, AsDirected glycerin adult Suppository 1 supp, Rectal, Daily magnesium hydroxide 8% Suspension 30 mL UD 30 mL, Oral, Daily polyethylene glycol 3350 - UD packet 17 gram(s) 15 mL, Oral, qDay Review of Systems Constitutional: Denies weight changes fever or chills. Denies headache HEENT: Denies nystagmus and dizziness. Respiratory: Denies cough or congestion Cardiovascular: Denies chest pain, palpitations, uncontrolled blood pressure Gastrointestinal: Denies nausea with emesis. Genitourinary: Denies dysuria or urinary retention Neurological: Denies any cognitive deficits Musculoskeletal: Denies any joint or musculoskeletal pain Skin: Denies rashes or erythema. Right hip surgical incision Endocrine: Denies hot or cold intolerance. No hypoglycemia. Psychiatric: Denies changes in mental status. Allergic/immunologic: Denies environmental allergies or immune dysfunction Past Medical History: Atrial fibrillation Chronic kidney disease stage IV Diastolic congestive heart failure Diabetes mellitus type 2 Hypertension Cardiorenal syndrome Morbid obesity Procedure/Surgical History: Appendectomy Leg surgery Social History: Alcohol Details: Frequency: Denies Home/Environment Details: Domestic Concerns: None. Living situation: Lives alone first-floor set up in 1st level apartment. 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 Safe place to go: Yes. Lives In: Single level home, 1st floor bedroom, 1st floor bathroom. Current Home Treatments None. Professional Skilled Services or Special Community Resources None. Financial concerns: No. Spouse Name: None marital Status: Not Nutrition/Health Details: Appetite Good. Sexual Details: Sexually active: No Substance Abuse Details: Type: Denies use Tobacco Details: Nicotine Use: Denies use Family History: Denies family history of known cardiovascular/pulmonary disease Allergies: No known allergies Physical Exam General appearance: Sitting up in wheelchair. Alert and oriented, no acute distress. Appears comfortable and does not appear in acute pain. Pleasant card. Good eye contact with bright affect. Answersquestions appropriately Head: Normocephalic no evidence of trauma HEENT: Pupils equal and reactive to light and accommodation, no erythema. Ears with no external lesions or discharge. Nose clear, nares patent, no discharge. Throat normal healthy definition, no redness or erythema. Neck: Trachea midline. No lymphatic adenopathy Cardiac: Regular rate and rhythm, no rubs or murmurs Lungs: Clear to auscultation. No respiratory distress on room air. Abdomen: Soft, nontender, no organomegaly or rebound tenderness. Positive bowel sounds Musculoskeletal: Intact range of motion, no erythema, no polyarthric changes Extremities: 2/4 edema to the bilateral lower extremities. Neurological: Cranial nerves intact. No nystagmus. Decreased sensation distally. Decreased bilateral shoulder motion bilaterally. 4/5 strength bilateral upper extremities. 4 -/5 strength to left lower extremity, 4+/5 strength to the right lower extremity. Skin: Dry skin to the bilateral lower extremities with hyperpigmentation. Psychiatric: Mood good. No anxiety or depression Vitals Signs(Last 24 hrs)__Last Charted Minimum Maximum Temp36.4(AUG 26 17:35)36.4(AUG 26 17:35)36.6(AUG 26 14:45) Heart Rate68(AUG 26 22:34)68(AUG 26 22:34)78(AUG 26 14:45) Resp Rate18(AUG 26 17:35)18(AUG 26 14:45)18(AUG 26 14:45) PIH366(AUG 26 22:34)110(AUG 26 22:34)H 148(AUG 26 14:45) DBP78(AUG 26:34)78(AUG 26 22:34)88(AUG 26 14:45) 36hr Labs 08/26 1644 Blood Glucose, [id number] Blood Glucose, Ueknjolfy13 Blood Glucose TSee Flowsheet Assessment/Plan Septic left knee. Lymphedema. Debility and gait disturbance. Medical committees of atrial fibrillation acute on chronic kidney disease stage IV congestive heartfailure diastolic diabetes type 2 hypertension cardiorenal syndrome morbid obesity. Plan: Acute rehabilitation with physical and occupational therapy services. Lac- Hydrin and Tubigrip's lower extremity with elevation. Gentle diuresis per medical service. Anticoagulation Eliquis. As needed Tylenol for mild pain tramadol for moderate pain. Team staffing Wednesday regarding further goals plan of care and length of stay. Goal is for discharge back home alone with home care services. Condition complex, medically stable Post Admission Physician Evaluation Medical reconciliation performed. Old chart reviewed. Patient status on admission to rehab is medically stable but medically complex. Appropriate for admission to inpatient rehab facility due to need for 24-hour nursing and medical management in a hospital-based setting. Comparison with information on preadmission screening findings information to be consistent. Diagnoses to be monitored and treated include.: Septic left knee, atrial fibrillation, chronic kidney disease stage IV, diastolic congestive heart pressure, diabetes mellitus type 2, hypertension, cardiorenal syndrome, morbid obesity, neuropathy, GERD Rehabilitation physician to direct team staffing. See daily on rehabilitation rounds. Plan is for acute rehab with PT and OT therapy rehab nursing social work and nutrition for an acuteinterdisciplinary team rehab approach. Will work on gait training, ADLs, self-care, and strengthening, bowel and bladder program. DVT prophylaxis and medical management of comorbidities Medical Comorbidities at the Time of Admission Septic left knee Chronic kidney stage IV Atrial fibrillation Diastolic congestive heart. Diabetes mellitus type 2 Hypertension Cardiorenal syndrome Morbid obesity Hyperlipidemia Neuropathy Barriers to Discharge Functional medical impairments Consulting Physician Dr. Mitchell Estimated Length of Stay 2-3 weeks All medications reviewed and up to date Hortensia Navarrete RN, am scribing for, and in the presence of Dr. Shahriar Medina IDr. Shahriar D.O. , personally performed the services described in this documentation, as described by Hortnesia Schroeder RN in my presence and it is both accurate and complete accurate and complete. Digitally Signed by ROZ DE DO on 08/27/2023 01:40 PM [place] [id number] Physical medicine and rehab Consult note INPATIENT REHAB MEDICAL CONSULT DATE OF ADMISSION: 08/26/2023 CC: Acute kidney injury on chronic kidney disease stage IV, acute diastolic CHF exacerbation HISTORY OF PRESENT ILLNESS: This is a 73-year-old male admitted to [facility] unit from [facility] 08/17 - 08/26 who has a history of CKD stage IV with baseline creatinine 3.4, diastolic CHF, hypertension, diabetes mellitus 2, atrial fibrillation and gout who was admitted to [facility] after being foundwith a left knee effusion. He was being prepped for AV fistula in preparation for dialysis. Underwent aspiration and culture was noted for gram-positive cocci, felt contaminated. Patient was treated for septic left knee joint initially. Patient was noted acute kidney injury on chronic kidney disease as well as diastolic CHF exacerbation, did require IV Lasix drip. This was transferred to torsemide 40 mg twice a day. Patient was transferred to [facility] for further care. Diuretics were discontinued patient was noted with acute kidney injury. IV fluids were administered. Patient was placed on fluid restriction during hospital course. He was deemed medically stable transferred to [facility] inpatient re[facility] unit for physical and occupational therapy as well as medical supervision. Today, patient is complaining of bilateral knee pain, states that he was on stronger pain medication at the hospital, does not feel that Tylenol has been totally effective for pain control. He is very fearful that he will have immense amount of pain especially while working with therapy and requesting medication to help with this. He states that his breathing is comfortable, denies any increase shortness of breath, cough, or congestion. States that he was very short of breath prior to hospitalization as hehad ran out of his diuretic prescription and it was not being filled. SpO2 94-96% on room air. No cough or congestion. Denies conversational dyspnea or exertional dyspnea. Denies fever or chills but recent blood pressure 110/78 with heart rate 68. He reports good urine output. States bowels are moving. He states his appetite is good and he is eating well. Reports staying well-hydrated. Blood sugar 97, monitoring twice a day. Denies hypoglycemic reaction. Azithromycin plus edema BLE, left greater than right. 2+ edema bilateral lower extremities into the thighs, 2+ pitting edema into the abdomen. Does have faint crackles to the right base. Heart rate is slightly irregular. Recent lab with WBC6.39, hemoglobin 7.6, platelet 224, sodium 135, potassium 4.8, BUN 92, creatinine 3.76, calcium 8.3, magnesium 1.8. Follow-up CBC/BMP pending. Patient denies chest pain, shortness of breath, nausea, vomiting, constipation, or diarrhea. Hospital medications, labs, and diagnostics were reviewed and reconciled. PAST MEDICAL HISTORY: CKD stage IV baseline creatinine 3.4, cardiorenal syndrome Diastolic CHF Morbid obesity Hypertension Diabetes mellitus type 2 Atrial fibrillation Gout BPH PAST SURGICAL HISTORY: Appendectomy Leg surgery SOCIAL HISTORY: Lives at home. Prior tobacco use. Alcohol use. Prior marijuana use, 2 times per week. FAMILY HISTORY: Significant for dementia in mother; cancer in father. CODE STATUS: Full code ALLERGIES: NKA PCP: Dr. Augusto Duong BMI-37.63 WT- 117.9 kg Vitals Signs(Last 24 hrs)__Last Charted Minimum Maximum Temp36.4(AUG 26 17:35)36.4(AUG 26 17:35)36.6(AUG 26 14:45) Heart Rate68(AUG 26 22:34)68(AUG 26 22:34)78(AUG 26 14:45) Resp Rate18(AUG 26 17:35)18(AUG 26 14:45)18(AUG 26 14:45) UAG440(AUG 26 22:34)110(AUG 26 22:34)H 148(AUG 26 14:45) DBP78(AUG 26 22:34)78(AUG 26 22:34)88(AUG 26 14:45) REVIEW OF SYSTEMS: General: The patient appears frail and debilitated requiring assistance with activities of daily living including mobility. Constitutional: Appetite is good, staying well-hydrated. No pain at this time while sitting in wheelchair, pain exacerbated when up and moving. Tylenol not effective. Slept well last night. No fever.No chills. HEENT: Eyes: No blurring, discharge, or pain. ENT: No congestion, discharge or epistaxis. Respiratory: Breathing comfortable on room air. No cough, no dyspnea. No hemoptysis. Cardiovascular: No chest pain. No claudication. No paroxysmal nocturnal dyspnea. Gastrointestinal: No constipation, diarrhea, nausea, vomiting or abdominal pain. No dysphagia. Genitourinary: No dysuria, frequency or urgency. Neurological: No new focal weakness. No seizure or tremor. Musculoskeletal: No contractures or altered range of motion. Endocrine: No hot or cold intolerance. No hypoglycemia. Mental Status: No changes in mental status. PHYSICAL EXAMINATION: HEENT: Eyes: Extraocular motions are intact. No nystagmus. ENT: No exudate on tongue or pharynx. Norhinorrhea. Neck: Neck is symmetric without mass, tenderness or rigidity. Trachea is midline. Pulmonary: Breath sounds are clear left lobe with faint crackles at the right base. Chest is symmetric with normal expansion. Respirations are nonlabored. Cardiovascular: Heart rate slightly irregular, no MRG, no JVD Peripheral Vascular: No calf pain or tenderness. No cyanosis or clubbing of digits. 4+ edema BLE, left greater than right. 2+ edema bilateral thighs. 2+ edema into the abdomen Gastrointestinal: Abdomen soft without masses, distention or tenderness. Bowel sounds are positive x4. Genitourinary: No suprapubic tenderness. No bladder distention. Musculoskeletal: Exam shows no misalignment, tenderness or effusion. Motor strength and tone are symmetric. Lymph: No enlargement or tenderness in neck or groin. Skin: No rash, tears or wounds. Neurologic: Cranial nerves II through XII are grossly intact. No new focal deficits. Balance and coordination are being evaluated by pt/ot Medications (25) Active Scheduled: (14) apixaban 2.5 mg tablet 2.5 mg 1 tab(s), Oral, BID atorvastatin 20 mg tablet 20 mg 1 tab(s), Oral, qHS calcitriol 0.25 mcg Capsule 0.25 mcg 1 cap(s), Oral, Daily famotidine 20 mg tablet 20 mg 1 tab(s), Oral, BID furosemide 20 mg tablet 20 mg 1 tab(s), Oral, BID gabapentin 100 mg Capsule 100 mg 1 cap(s), Oral, Daily gabapentin 300 mg Capsule 300 mg 1 cap(s), Oral, Daily hydralazine 10 mg Tablet 10 mg 1 tab(s), Oral, TID influenza virus vaccine, inactivated adjuvanted preservative-free quadrivalent Susp (Fluad) 0.5 mL,Intramuscular, Vaccine insulin glargine 15 unit(s) 0.15 mL, Subcutaneous (INT), Daily insulin lispro 100 units/mL Soln (3 mL) 5 unit(s) 0.05 mL, Subcutaneous, BIDAC isosorbide mononitrate 30 mg ER tablet 15 mg 0.5 tab(s), Oral, qDayAC labetalol 100 mg tablet 100 mg 1 tab(s), Oral, BID terazosin 2 mg Capsule 2 mg 1 cap(s), Oral, qHS Continuous: (0) PRN: (11) acetaminophen 325 mg Tablet 650 mg 2 tab(s), Oral, q6hr acetaminophen 325 mg Tablet 650 mg 2 tab(s), Oral, q6hr Al hydrox/Mg hydrox/simethicone 200-200-20 mg/5 mL Susp UD 30 mL, Oral, q6h dextrose 50% Solution Disp syringe 50 mL 12.5 gram(s) 25 mL, IV Push, AsDirected diclofenac topical 1% Gel 50 g 1 keenan, Topical, BID docusate sodium 100 mg Capsule 100 mg 1 cap(s), Oral, BID glucagon recombinant 1 mg 1 mg 1 mL, Intramuscular, AsDirected glucose 4 gm Chewable 16 gram(s) 4 tab(s), Chewed, AsDirected glycerin adult Suppository 1 supp, Rectal, Daily magnesium hydroxide 8% Suspension 30 mL UD 30 mL, Oral, Daily polyethylene glycol 3350 - UD packet 17 gram(s) 15 mL, Oral, qDay REVIEW OF LABS, DIAGNOSTICS Hospital labs and diagnostics reviewed. 36hr Labs 08/26 1644 Blood Glucose, [id number] Blood Glucose, [id number] Blood Glucose TSee Flowsheet ASSESSMENT AND PLAN: actively managed medical problems include Acute diastolic CHF exacerbation complicated by medication noncompliance in the outpatient setting apparently he had run out of his diuretics, resulted in acute dyspnea and respiratory failure, todayhe is on room air has been reinitiated on Lasix 20 twice daily. Trend daily weights low-sodium diet Acute kidney disease and chronic kidney disease previously scheduled for a fistula placement this was put on hold due to the acute CHF exacerbation. Follow-up with nephrology continue to monitor renal function closely given compromised creatinine currently around 3.7 Bilateral knee effusion status post aspiration, reportedly cultures negative no antibiotics in place the present time Severe venous stasis bilateral lower extremities consult wound team Extensive fluid overload with pitting edema up into the abdomen trending volume status closely History of A-fib rate controlled continue Eliquis for anticoagulation Hypertension hydralazine plus isosorbide plus labetalol BPH terazosin Chronic neuropathic pain renally dose gabapentin Diabetes mellitus type 2, continue with Humalog and Lantus Acute pain, mostly bilateral knee pain secondary to the recent effusions new order for tramadol 50 twice daily as needed Tylenol available as well Severe gait dysfunction consultation with PT and OT ORDERS- PT/OT Tramadol 50 mg twice a day as needed . Low-sodium diet Discussion and summaries: Reviewed with nursing staff. Our group will follow during acute rehabilitation stay at [facility] with the goal of returning to a more independentliving status at the conclusion of the stay. Medications reviewed and up to date This document was transcribed using dictation software and may contain typographical errors. Alexandria Navarrete RN, am scribing for , and in the presence of Dr. Mitchell. IDr. Mitchell, personally performed the services described in this documentation, as scribed by, Alexandria MORALES in my presence and it is both accurate and complete. Digitally Signed by MEG MITCHELL DO on 08/31/2023 03:50 PM [place] [id number] [facility]12-14-2023 [facility]12-13-2023 [facility]12-13-2023 [facility] 08-24-2023 [facility]12-12-2023 [facility]12-11-2023 [facility]12-11-2023 [facility]12-09-2023 [facility]12-08-2023 [facility]12-08-2023 [facility]12-07-2023 [facility]12-07-2023 [facility] 08-06-2023 History and physical note* Kacie Montenegro, - 08/06/2023 9:37 AM EST New Patient Consult REASON FOR VISIT Roz Baker is a 73 year old male who is scheduled for a consult at the request of Julianne Dumas for New Patient (Discuss fistula/). My final recommendations will be communicated back to the requesting physician by the way of the shared medical record, fax, or via US Mail History of Present Illness: This is a 73-year-old male that presents to the office with chronic kidney disease. He will be requiring dialysis soon. He is right-handed. He has not required dialysis in the past. Does have a history of congestive heart failure and atrial fibrillation. He is currently on Eliquis. PAST MEDICAL HISTORY Diagnosis Date Atrial fibrillation (HCC) CHF exacerbation (HCC) Chronic kidney disease with acute renal failure. Diabetes mellitus (HCC) Essential hypertension HFrEF (heart failure with reduced ejection fraction) ([facility]) History of echocardiogram 10/26/2022 LVEF is normal, estimated at 55% to 60%. There is mild mitral and tricuspid regurgitation. History of echocardiogram 05/18/2023 EF is 50%. LVH is noted. Moderate MR. ANASTACIA is 2.8. Trace GA and AR. Mild to Moderate TR. 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 Morbid obesity (HCC) PAST SURGICAL HISTORY Procedure Laterality Date APPENDECTOMY LEG SURGERY HX FAMILY HISTORY Problem Relation Age of Onset Dementia Mother Cancer Father Social History Tobacco Use Smoking status: Former Packs/day: 1.00 Years: 30.00 Additional pack years: 0.00 Total pack years: 30.00 Types: Cigarettes Quit date: 1995 Years since quittin.9 Smokeless tobacco: Never Substance Use Topics Alcohol use: Yes Drug use: Yes Frequency: 2.0 times per week Types: Marijuana Comment: Occasional use of Marijuana. MEDICATIONS Current Outpatient Medications Medication Sig Dispense Refill metoprolol tartrate 75 mg tab Take 1 tablet by mouth two times a day. 180 tablet 3 hydrALAZINE (APRESOLINE) 50 mg tablet Take 1 tablet by mouth three times a day. 270 tablet 3 apixaban (ELIQUIS) 2.5 mg tab(s) Take 1 tablet by mouth two times a day. 180 tablet 3 bumetanide (BUMEX) 1 mg tablet Take 1 mg by mouth twice daily. famotidine (PEPCID) 20 mg tablet Take 20 mg by mouth twice daily. rosuvastatin (CRESTOR) 10 mg tablet Take 10 mg by mouth daily at bedtime. insulin glargine (LANTUS SOLOSTAR, BASAGLAR KWIKPEN) 100 unit/mL (3 mL) Inject 15 Units subcutaneously every morning. empagliflozin (JARDIANCE) 10 mg tablet Take 10 mg by mouth daily with breakfast. (Patient not taking: Reported on 07/27/2023) No current facility-administered medications for this visit. CURRENT ALLERGIES ALLERGIES Allergen Reactions Codeine Unknown REVIEW OF SYSTEMS General: No weight loss, malaise or fevers. Neuro: No Hx of stroke or seizures Respiratory: No history of current cough or dyspnea, or pneumonia in the past 6 weeks. No history of respiratory/pulmonary symptoms or problems Cardiovascular: No history of HTN requiring medication, no history of angina, CHF, AR, cardiac surgery or stents. Denies rest pain, gangrene or revascularization/amputation for PVD. No history of cardiovascular symptoms or problems. GI: No history of GI symptoms or problems. No history of esophageal varices, recent ascites, or ETOH greater than 2 drinks per day. : Chronic kidney disease Endocrine: No history of diabetes. Has not taken steroids within the past 30 days. No history of endocrinological symptoms or problems. Hematology: On anticoagulation Oncology: No history of CA metastasis, chemo within 30 days, or radiotherapy within 90 days. Has not lost 10% of body wt in 6 months. No history of oncological symptoms or problems. Psych: No history of psychiatric symptoms or problems. Musculoskeletal: Negative for joint pain or swelling, back pain or muscle pain. Skin: Negative for lesions, rash and itching. PHYSICAL EXAMINATION Ht 5' 10 (1.78m) Wt 275 lb (124.7kg) BMI 39.46 kg/(m^2). General Appearance: Well appearing, alert, in no acute distress, well-hydrated, well nourished. Skin: Skin color, texture, turgor normal, Head: Normocephalic, Oropharynx: Lips, mucosa, and tongue normal, Neck: Supple, Lungs: Unlabored on room air Heart: RR Extremities: No deformities, edema, left arm is neurovascularly intact. Malick's test is normal. He has a good palpable pulse Neuro: Gait normal. Abdomen: Abdomen soft, non-tender. Bowel sounds normal. No masses, organomegaly Diagnostic tests reviewed for today's visit: N/a Assessment ASSESSMENT/PLAN: 1. Stage 4 chronic kidney disease (HCC) - ICD9: 585.4, ICD10: N18.4 (primary diagnosis) -We will plan on creation of AV fistula possible graft. Plan for the left arm. Will obtain mapping and marking preoperatively. I discussed risk benefits and alternatives of doing the procedure. Risksof bleeding, infection, injury to surrounding structures, fistula failure, steal syndrome, exacerbation of CHF and need for further fistulas in the future. - SURGICAL REQUEST - ELECTIVE (04/2020) - CBC - BASIC METABOLIC PNL - ECG COMPLETE - XR CHEST 2V FRONTAL/LAT - US ARM VEIN MAP UNL VAS LAB 2. Paroxysmal atrial fibrillation (HCC) - ICD9: 427.31, ICD10: I48.0 -Will need cardiac clearance. Hold Eliquis 2 days prior to surgery. Kacie Montenegro DO DATE: 08/06/23 TIME: 9:37 AM [facility] Miscellaneous Notes* Telephone Encounter - Adia Scott MA - 06/29/2023 2:44 PM EDT Patient calls requesting refill: Requested Prescriptions Pending Prescriptions Disp Refills metoprolol tartrate 75 mg tab 180 tablet 3 Sig: Take 1 tablet by mouth two times a day. hydrALAZINE (APRESOLINE) 50 mg tablet 270 tablet 3 Sig: Take 1 tablet by mouth three times a day. apixaban (ELIQUIS) 2.5 mg tab(s) 180 tablet 3 Sig: Take 1 tablet by mouth two times a day. Date of last visit:05/28/2023 Phone #: [phone] (home) The patients preferred pharmacy has been captured for this encounter? yes * Telephone Encounter - Aisha Beltran - 06/29/2023 2:26 PM EDT Patient requesting the following medications sent to [facility] for a 90 day supply and refills Eliquis 2.5 mg BID Metoprolol 75 mg BID Hydralazine 50 mg 3 times daily [facility] 05/28/23 Next 11/24/23 documented in this [facility] History of Present illness Narrative* Charles Beltran DO - 05/28/2023 9:41 AM EDT Images from the original note were not included. Referring Provider: No ref. provider found Date: May 28, 2023 Chief Complaint: Established Patient Follow-Up (6 mo CHF) HISTORY OF PRESENT ILLNESS: Roz Baker is a 73 year old male who presents for Established Patient Follow- Up (6 mo CHF). Patient was recently in the hospital secondary to congestive heart failure. Patient was on a Lasix drip had marked improvement with that. Patient is being followed by the renal team. We did not feel at this time patient needed dialysis. Because of CHF we talked about Jardiance and Aldactone therapy. Renal team did not want to utilize these therapies at this time This is a close follow-up after hospital stay. Class 3 activity ALLERGIES Allergen Reactions Codeine Unknown PAST MEDICAL HISTORY: PAST MEDICAL HISTORY Diagnosis Date Atrial fibrillation (HCC) CHF exacerbation ([facility]) Chronic kidney disease with acute renal failure. Diabetes mellitus ([facility]) Essential hypertension HFrEF (heart failure with reduced ejection fraction) ([facility]) History of echocardiogram 10/26/2022 LVEF is normal, estimated at 55% to 60%. There is mild mitral and tricuspid regurgitation. History of echocardiogram 05/18/2023 EF is 50%. LVH is noted. Moderate MR. ANASTACIA is 2.8. Trace GA and AR. Mild to Moderate TR. group home (current) use of anticoagulants warfarin as directed. Morbid obesity ([facility]) PAST SURGICAL HISTORY Procedure Laterality Date APPENDECTOMY LEG SURGERY HX FAMILY HISTORY Problem Relation Age of Onset Dementia Mother Cancer Father SOCIAL HISTORY: Tobacco Use: 1 packs/day, for 30 years. Quit 09/13/1995. Types: Cigarettes Alcohol Use: Not Currently Drug Use: Yes, patient uses Marijuana drugs approximately 2 times per week (Occasional use of Marijuana.) Employer And Job Title: None on file Years Of Education Completed: Not specified Marital Status: Single MEDICATIONS: Current Outpatient Medications Medication Sig apixaban (ELIQUIS) 2.5 mg tab(s) Take 2.5 mg by mouth twice daily. famotidine (PEPCID) 20 mg tablet Take 20 mg by mouth twice daily. rosuvastatin (CRESTOR) 10 mg tablet Take 10 mg by mouth daily at bedtime. hydrALAZINE (APRESOLINE) 50 mg tablet Take 50 mg by mouth three times daily. insulin glargine (LANTUS SOLOSTAR, BASAGLAR KWIKPEN) 100 unit/mL (3 mL) Inject 15 Units subcutaneously every morning. metoprolol tartrate 75 mg tab Take 75 mg by mouth twice daily. bumetanide (BUMEX) 1 mg tablet Take 1 mg by mouth twice daily. empagliflozin (JARDIANCE) 10 mg tablet Take 10 mg by mouth daily with breakfast. No current facility-administered medications for this visit. I have personally reviewed the patients past medical history including social, family, surgical, diagnostics, and medications. REVIEW OF SYSTEMS: Review of Systems Constitutional: Positive for fatigue. Negative for chills. Respiratory: Negative for chest tightness and shortness of breath. Cardiovascular: Negative for chest pain, palpitations and leg swelling. Neurological: Negative for dizziness, syncope, weakness and light-headedness. Hematological: Bruises/bleeds easily. Psychiatric/Behavioral: Negative for confusion and hallucinations. Vitals: BP 140/82 (BP Site: Left Arm, BP Position: Sitting, BP Cuff Size: Large Adult) Pulse (!) 56 Ht 177.8 cm (5' 10) Wt 124.8 kg (275 lb 0.6 oz) SpO2 94% BMI 39.46 kg/m PHYSICAL EXAMINATION: BP 140/82 (BP Site: Left Arm, BP Position: Sitting, BP Cuff Size: Large Adult) Pulse (!) 56 Ht 177.8 cm (5' 10) Wt 124.8 kg (275 lb 0.6 oz) SpO2 94% BMI 39.46 kg/m Last 3 Encounter BP Readings: Date: BP: 11/25/2022 154/82 Last 3 Encounter Pulse Readings: Date: Pulse: 11/25/2022 61 Last 3 Encounter Wt Readings: Date: Wt: 11/25/2022 127.1 kg (280 lb 1.9 oz) 02/18/2021 136.1 kg (300 lb) Physical Exam Vitals reviewed. Constitutional: General: He is not in acute distress. Cardiovascular: Rate and Rhythm: Normal rate and regular rhythm. Pulses: Carotid pulses are 2+ on the right side and 2+ on the left side. Radial pulses are 2+ on the right side and 2+ on the left side. Femoral pulses are 2+ on the right side and 2+ on the left side. Popliteal pulses are 2+ on the right side and 2+ on the left side. Dorsalis pedis pulses are 2+ on the right side and 2+ on the left side. Posterior tibial pulses are 2+ on the right side and 2+ on the left side. Heart sounds: Murmur heard. Systolic murmur is present with a grade of 2/6. Comments: PMI not displaced. 2nd heart sound loud. Pulmonary: Effort: Pulmonary effort is normal. Breath sounds: Normal breath sounds. Abdominal: General: Abdomen is flat. Bowel sounds are normal. Palpations: Abdomen is soft. Tenderness: There is no abdominal tenderness. Musculoskeletal: Right lower leg: No edema. Left lower leg: No edema. Skin: General: Skin is warm. Findings: No rash or wound. Neurological: Mental Status: He is alert and oriented to person, place, and time. Coordination: Coordination is intact. LABS: Glucose (mg/dL) Date Value 2023 143 Potassium (mmol/L) Date Value 2023 3.8 Sodium (mmol/L) Date Value 2023 133 Chloride (mmol/L) Date Value 2023 89 CO2 (mmol/L) Date Value 2023 28 Creatinine (mg/dL) Date Value 2023 3.97 BUN (mg/dL) Date Value 2023 92 Anion Gap (mmol/L) Date Value 2023 19.8 Calcium (mg/dL) Date Value 2023 8.4 Protein, Total (g/dL) Date Value 05/23/2023 6.8 Albumin (g/dL) Date Value 05/23/2023 3.1 Bilirubin, Total (mg/dL) Date Value 05/23/2023 0.7 Alkaline Phosphatase (U/L) Date Value 05/23/2023 62 AST (U/L) Date Value 05/23/2023 13 ALT (U/L) Date Value 05/23/2023 < 5 Hemoglobin (g/dL) Date Value 2023 8.7 Hematocrit (%) Date Value 2023 28.5 WBC (x10(3)) Date Value 2023 6.4 Cholesterol, Total (mg/dL) Date Value 01/28/2023 143 HDL Cholesterol (mg/dL) Date Value 01/28/2023 41 LDL (mg/dL) Date Value 01/28/2023 90 Triglyceride (mg/dL) Date Value 01/28/2023 61 EKG: DIAGNOSTIC TEST RESULTS: Recent Results (from the past 24 hour(s)) ECG COMPLETE Collection Time: 05/28/23 8:50 AM Result Value Ref Range Ventricular Rate 56 BPM Atrial Rate 288 BPM QRS Duration 108 ms QT Interval 488 ms QTC Calculation (Bazett) 470 ms Calculated R [place] 27 degrees Calculated T [place] -11 degrees Narrative NAME : ROZ BAKER PID : [id number] : 1950 Gender : Male Race : ORD : [id number] Procedure Date : May 28 2023 08:50:35 Edit Date : May 28 2023 09:49:21 Diagnosis: ATRIAL FIBRILLATION WITH SLOW VENTRICULAR RESPONSE NONSPECIFIC ST ABNORMALITY ABNORMAL ECG WHEN COMPARED WITH ECG OF 25-NOV-2022 10:, NO SIGNIFICANT CHANGE WAS FOUND Test Reason : [facility] By : , Edited By : , Referred By : CHARLES BELTRAN Acquired by : , Impression ATRIAL FIBRILLATION WITH SLOW VENTRICULAR RESPONSE NONSPECIFIC ST ABNORMALITY ABNORMAL ECG WHEN COMPARED WITH ECG OF 25-NOV-2022 10:, NO SIGNIFICANT CHANGE WAS FOUND ASSESSMENT/PLAN: 1. Paroxysmal atrial fibrillation (HCC) - ICD9: 427.31, ICD10: I48.0 (primary diagnosis) Patient has a history of atrial fibrillation. This puts the patient at increased risk of stroke in the future. We reviewed the CHADS VASC score in great detail. Based on this information, we feel at this time anticoagulation is needed to help prevent a life-threatening event. Stroke is a life-threatening illness that could put them into a chcf. The second goal is to maintain a heart rate between 55 and 110 BPM. By doing this we can prevent congestive heart failure. We reviewed the chronotropic drugs in the relationship with other therapy at this visit. - ECG COMPLETE atrial fibs 2. Hypertension, unspecified type - ICD9: 401.9, ICD10: I10 Patient's blood pressure in the office today was recorded as 140/82. Target systolic BP 140 or lessand diastolic BP 90 or less. Continue current medications. 4. Controlled type 2 diabetes mellitus without complication, unspecified whether braider operator insulin use (HCC) - ICD9: 250.00, ICD10: E11.9 Reviewed increased cardiovascular risk in patients with diabetes including stroke and heart attack,as well as blindness, kidney failure, and neuropathy. Recommend yearly eye exams, as well as routine labs to monitor kidney function. 5. Chronic kidney disease, unspecified CKD stage - ICD9: 585.9, ICD10: N18.9 In pictorial form we kizzy a graph of kidney function. The importance of this graph is to highlight how diuretic therapy can affect the kidney function. The higher the number of the creatinine level the closer they get to kidney failure and possible dialysis. Every time we have to change the diuretic therapy, the kidney function will be altered. Therefore, a close follow-up with serial renal profiles is required. The patient has been asked to maintain this graph with labeling the separate lab results so they can follow the kidney function. Creatinine markedly elevated at this time. We discussed this in graphic format. 6. historical site guide current use of anticoagulant - ICD9: V58.61, ICD10: Z79.01 Patient is taking Eliquis. They are currently on medications that may affect the coagulation cascade. We asked about hematochezia, melena, bright red blood and coughing up blood like hemoptysis. Theydeny any symptoms. We also asked the patient about increased bruising and went over the risk of bleeding. We reviewd the relationship between dosing and the renal profile. 7. History of echocardiogram - ICD9: V15.89, ICD10: Z92.89 Echo was done 05/18/2023 and showed EF is 50%. LVH is noted. Moderate MR. ANASTACIA is 2.8. Trace GA and AR. Mild to Moderate TR. 8. Former smoker - ICD9: V15.82, ICD10: Z87.891 Patient is a former smoker. Patient quit smoking in 1995. IAdia MA , scribing for Dr. Charles Beltran, was present in the room during the examination As noted patient was recently in the hospital. Being followed closely by the renal team for the possibility of dialysis. He is well aware of the risk of dialysis. He agrees to proceed on with dialysis if the time comes. High risk for readmission to the hospital for congestive heart failure secondary to renal insufficiency Follow up in: 6 months with Ramila Tuttle APRN.DRONE PILOT. Prior to entering the room, I reviewed the last progress note including the diagnosis and plan of action. When available, I then reviewed the last heart catheterization, stress test, echocardiogram and EKG. I proceeded to review the medial therapy and any side effects the patient may have had in the past. I was able to look at the last several EKGs. A new EKG was performed today and an interetation was performed. I reviewed its interpretation with the family and compared it to the previous EKGsthat we have in the medical records. Changes were described to the patient. In a pictorial format; I described the GA and QRS intervals. This was to show the effects of antiarrhythmic therapy on the e lectrical system. I was able to look at the past several EKG's. A new EKG was performed today and interpretation was noted. I reviewed this interpretation with the patient, and the family when available, and compared it to the previous EKG's that we have in the medical record. Since my office visit was carried out with a scribe, while in the exam room I was able to devote one hundred percent of my time in [id number] conversation with the patient. I answered all the questions and explained the diagnosis of atrial fibrillation and chronic kidney disease. Greater that 51% of my time was spent with [id number] conversation with the patient. I have discussed the recommended treatment, alternative therapies and other options in detail. I've discussed the best benefit and side effects of these recommended treatments. I've attempted to answer all the questions to the patient's satisfaction and understanding. With approval, we would recommend an pursuethe current therapy such as no change in therapy. After leaving the exam room, I went back into the patient's chart and coordinated care with my nurse ordering the proper testing and medicinal changes. Letter was performed with voice recognition algorithms and sent to the referring team. The chart was completed. Including the pre-exam, exam and post- exam, the total time spent in the patient's management was greater than 15 minutes I, Dr. Charles Beltran, have reviewed and agree with the information in the medical record. Charles Beltran DO documented in this encounterSal[facility]09-[facility]23 [facility]09-03-2023 [facility]09-03-2023 [facility]08-29-2023 Miscellaneous Notes* Telephone Encounter - Sue Verduzco - 05/11/2023 2:12 PM EDT Calling restrictions for this number, unable to get through or leave a message. The only number listed on the referral is the Home phone in his chart. Reason for Call: Referral from Dr. Chavira, ANUJ. [phone] (home) Patient last appointment: Visit date not found Sue Verduzco documented in this encounterSalem [facility]03-15-2023 History of Present illness Narrative* Ramila Tuttle APRN.FARRAH - 11/25/2022 10:26 AM EDT [facility] Department of Cardiology Referring Provider: No ref. provider found Date: November 25, 2022 Chief Complaint: Hospital follow-up shortness of breath and BLE edema. Subjective: Roz Baker is a 72 year old, established male who presents hospital follow-up due to shortness ofbreath and BLE edema. Patient was diagnosed with acute decompensated heart failure. He presents in the office today with no complaints of shortness of breath. Mild edema. Patient denies any headaches, dizziness, or syncopal episodes. Patient denies any chest pain or chest discomfort. ALLERGIES Allergen Reactions Codeine Unknown PAST MEDICAL HISTORY: PAST MEDICAL HISTORY Diagnosis Date Atrial fibrillation (HCC) CHF exacerbation (HCC) Chronic kidney disease with acute renal failure. Diabetes mellitus (HCC) Essential hypertension HFrEF (heart failure with reduced ejection fraction) ([facility]) History of echocardiogram 10/26/2022 LVEF is normal, estimated at 55% to 60%. There is mild mitral and tricuspid regurgitation. historical site guide (current) use of anticoagulants warfarin as directed. Morbid obesity (HCC) PAST SURGICAL HISTORY Procedure Laterality Date APPENDECTOMY LEG SURGERY HX FAMILY HISTORY Problem Relation Age of Onset Dementia Mother Cancer Father SOCIAL HISTORY: Tobacco Use: Quit Alcohol Use: Not Currently Drug Use: Yes (Occasional use of Marijuana.) Employer And Job Title: None on file Years Of Education Completed: Not specified Marital Status: Single MEDICATIONS: Current Outpatient Medications Medication Sig apixaban (ELIQUIS) 5 mg tab(s) Take by mouth twice daily. bumetanide (BUMEX) 1 mg tablet Take 1 mg by mouth twice daily. empagliflozin (JARDIANCE) 10 mg tablet Take 10 mg by mouth daily with breakfast. famotidine (PEPCID) 20 mg tablet Take 20 mg by mouth twice daily. rosuvastatin (CRESTOR) 10 mg tablet Take 10 mg by mouth daily at bedtime. hydrALAZINE (APRESOLINE) 50 mg tablet Take 50 mg by mouth three times daily. insulin glargine (LANTUS SOLOSTAR, BASAGLAR KWIKPEN) 100 unit/mL (3 mL) Inject 15 Units subcutaneously every morning. metoprolol tartrate 75 mg tab Take 50 mg by mouth twice daily. No current facility-administered medications for this visit. I have personally reviewed the patients past medical history including social, family, surgical, diagnostics, and medications./AB REVIEW OF SYSTEMS: Review of Systems Constitutional: Negative for chills and fatigue. Respiratory: Negative for chest tightness and shortness of breath. Cardiovascular: Negative for chest pain, palpitations and leg swelling. Neurological: Negative for dizziness, syncope, weakness and light-headedness. Hematological: Bruises/bleeds easily. Psychiatric/Behavioral: Negative for confusion and hallucinations. Vitals: BP 154/82 (BP Site: Left Arm, BP Position: Sitting, BP Cuff Size: Large Adult) Pulse 61 Ht 177.8 cm (5' 10) Wt 127.1 kg (280 lb 1.9 oz) SpO2 99% BMI 40.19 kg/m PHYSICAL EXAMINATION: BP 154/82 (BP Site: Left Arm, BP Position: Sitting, BP Cuff Size: Large Adult) Pulse 61 Ht 177.8 cm (5' 10) Wt 127.1 kg (280 lb 1.9 oz) SpO2 99% BMI 40.19 kg/m No data found for this vital: BP No data found for this vital: Pulse Last 3 Encounter Wt Readings: Date: Wt: 02/18/2021 136.1 kg (300 lb) Physical Exam Vitals and nursing note reviewed. Constitutional: General: He is not in acute distress. Appearance: Normal appearance. He is not ill-appearing or diaphoretic. HENT: Head: Normocephalic. Nose: Nose normal. Eyes: Extraocular Movements: Extraocular movements intact. Cardiovascular: Rate and Rhythm: Normal rate. Rhythm irregular. Pulses: Carotid pulses are 2+ on the right side and 2+ on the left side. Radial pulses are 2+ on the right side and 2+ on the left side. Femoral pulses are 1+ on the right side and 1+ on the left side. Popliteal pulses are 1+ on the right side and 1+ on the left side. Posterior tibial pulses are 1+ on the right side and 1+ on the left side. Heart sounds: S1 normal and S2 normal. Murmur heard. Crescendo systolic murmur is present with a grade of 2/6. Comments: murmur ends prior to the second sound. The second sound is still loud. There is no heave. Pulmonary: Effort: Pulmonary effort is normal. Breath sounds: Normal breath sounds. No wheezing. Abdominal: Palpations: Abdomen is soft. Tenderness: There is no abdominal tenderness. There is no guarding. Musculoskeletal: General: Normal range of motion. Cervical back: Normal range of motion. Right lower leg: Edema present. Left lower leg: Edema present. Skin: General: Skin is warm. Coloration: Skin is pale. Skin is not jaundiced. Findings: No lesion or rash. Neurological: General: No focal deficit present. Mental Status: He is alert and oriented to person, place, and time. Mental status is at baseline. Motor: No weakness. Psychiatric: Mood and Affect: Mood normal. Judgment: Judgment normal. LABS: Glucose (mg/dL) Date Value 11/14/2022 212 Potassium (mmol/L) Date Value 11/14/2022 3.7 Sodium (mmol/L) Date Value 11/14/2022 142 Chloride (mmol/L) Date Value 11/14/2022 96 CO2 (mmol/L) Date Value 11/14/2022 29 Creatinine (mg/dL) Date Value 11/14/2022 3.10 BUN (mg/dL) Date Value 11/14/2022 82 Anion Gap (mmol/L) Date Value 11/14/2022 20.7 Calcium (mg/dL) Date Value 11/14/2022 8.9 Protein, Total (g/dL) Date Value 11/14/2022 6.8 Albumin (g/dL) Date Value 11/14/2022 3.3 Bilirubin, Total (mg/dL) Date Value 11/14/2022 0.4 Alkaline Phosphatase (U/L) Date Value 11/14/2022 103 AST (U/L) Date Value 11/14/2022 29 ALT (U/L) Date Value 11/14/2022 16 Hemoglobin (g/dL) Date Value 11/14/2022 10.9 Hematocrit (%) Date Value 11/14/2022 32.2 WBC (x10(3)) Date Value 11/14/2022 11.1 Cholesterol, Total (mg/dL) Date Value 08/01/2021 187 HDL Cholesterol (mg/dL) Date Value 08/01/2021 44 LDL (mg/dL) Date Value 08/01/2021 110 Triglyceride (mg/dL) Date Value 08/01/2021 163 EKG: Atrial fibrillation, nonspecific ST abnormality, HR 61 DIAGNOSTIC RESULTS: ASSESSMENT/PLAN: 1. Hospital discharge follow-up - ICD9: V67.59, ICD10: Z09 (primary diagnosis) -Patient was hospitalized from 11/10/2022 through 11/14/2022 for complaints of shortness of breath andbilateral lower extremity edema. 2. Congestive heart failure, unspecified HF chronicity, unspecified heart failure type (HCC) - ICD9: 428.0, ICD10: I50.9 -Patient reports his weight is stable since being discharged home -Minimal shortness of breath mostly when up walking. -Echo shows EF 55-60%. -Continue Bumex 1 mg twice daily -Continue Lopressor 75 mg twice daily -Continue Jardiance 10 mg daily -Recommend low-salt diet -Recommend weight monitoring and to call office if patient has a 3 pound daily weight gain or 5 pound weekly weight gain 3. Paroxysmal atrial fibrillation (HCC) - ICD9: 427.31, ICD10: I48.0 -Today's EKG reads atrial fibrillation-heart rate 61 -QT/QTc 420/422 -Continue Lopressor 75 mg twice daily 4. Current use of prison anticoagulation - ICD9: V58.61, ICD10: Z79.01 - Patient is currently on Eliquis 5 mg twice daily - In reviewing and calculating kidney function patient anticoagulation dose is appropriate - Discussed signs and symptoms of bleeding and side effects - Patient denies any of the signs and symptoms of bleeding or side effects. 5. SOB (shortness of breath) - ICD9: 786.05, ICD10: R06.02 -Improved since being discharged home from the hospital. Minimal shortness of breath with exertion -Continue Bumex 1 mg twice daily - ECG COMPLETE 6. Essential hypertension - ICD9: 401.9, ICD10: I10 - suboptimal control - Recommended regular exercise. -Recommend low-salt diet -Today's BP is 154/82 -Continue hydralazine 50 mg 3 times a day -Continue Lopressor 75 mg - Goal of BP <140/90 7. Bilateral lower extremity edema - ICD9: 782.3, ICD10: R60.0 -Mild-moderate BLE edema -Continue Bumex 1 mg twice daily -Keep legs elevated 8. History of diabetes mellitus - ICD9: V12.29, ICD10: Z86.39 -Reviewed with patient there increased cardiovascular risk, often seen with diabetic patients including stroke and heart attacks. Also at risk for blindness, kidney failure and neuropathy. Recommend yearly eye exam as well as routine labs to monitor kidney function. -Followed management primary care 9. Former smoker - ICD9: V15.82, ICD10: Z87.891 -Patient quit smoking in 1995 Ramila Tuttle APRN.CNP Follow up in: 6 months-CHF Greater than 50% of this > 20 minute visit was spent face to face discussing current diagnosis and treatment plan consisting of above outlined plan. Follow- up as documented above. I have discussed the recommended treatment, alternative treatments and other treatment options in detail. I have discussed the risks, benefits and side effect of the recommended treatment. I have attempted to answer all their questions to their satisfaction and understanding of the explanation has been voiced. With approval we will pursue the recommended treatment. During this office visit I reviewed the patients previous Cardiac testing and procedures results and reviewed the results with the patient. I, Ramila Tuttle CNP have reviewed and agree with the information in the medical record transcribed by Jian Kline MA. Ramila Tuttle APRN.FARRAH This patient note was partially generated from using the [employer] voice recognition system. There maybe some incorrect words, spelling, and punctuation that were not noted in checking the note prior to saving documented in this encounter[facility] Hospital Discharge instructions* Instructions* Chino Cruz MD - 11/14/2022 2:04 [place] [address] HEALTH INFORMATION MANAGEMENT IP DISCHARGE INSTRUCTIONS Patient: ROZ BAKER TIKAL M.D. [id number] [age] M Status: ADM IN [place] [id number] Date of Admission: 11/10/22 Date of Discharge: InPatient Discharge Discharge Diagnosis HFpEF exacerbatoin - RESOLVED Condition on Discharge Stable Diet ADA 1800 Calorie Diet Activity As Tolerated Daily Weight If you have been told that you have heart failure you must weigh daily . If you gain 3 pounds in a day or 5 pounds in a week, call the Physician. Follow up FOLLOW UP with: 1. PCP in 2 weeks 2. Cardiology in 2 weeks 3. Nephrology in 2 weeks 4. [facility] in 2 weeks - for AV fistula creation <Electronically signed by CHINO CRUZ M.D.> 11/14/22 1405 5.28 CHINO CRUZ M.D. IN A FEW DAYS YOU WILL RECEIVE OUR PATIENT SURVEY IN THE MAIL. PLEASE TAKE A FEW MINUTES TO COMPLETE THE SURVEY AND LET US KNOW HOW WELL WE MET YOU NEEDS. FEEL FREE TO ADD ANY COMMENTS OR SUGGESTIONS. THANK YOU FOR CHOOSING [facility]. << Signature on File>> Reported By: CHINO CRUZ M.D. Signed By: CHINO CRUZ M.D. Tests performed at: [address] [address] documented in this encounterSalem [facility]03-[facility] Hospital course Narrative * Chino Cruz MD - 11/14/2022 1:52 [place] [address] HEALTH INFORMATION MANAGEMENT DISCHARGE SUMMARY Patient: ROZ BAKER TIKAL M.D. [id number] [age] M Status: ADM IN [facility] 2229-A Date of Admission: 11/10/22 Discharge Summary Date of Discharge: 11/14/22 Discharge Diagnosis: 1. Acute decompensated heart failure A&P Patient presented with SOB and swelling of both lower extremities after being discharged from the hospital for the same reason a week ago porbNP 3266 ECHO s/o EF 55-60% Edema is improving Plan CONTINUE bumex 1 mg BiD CONTINUE albumin 12.5 gm IVP q8h CONTINUE metoprolol tartarte 50 mg BiD CONTINUE empaglifozin 10 mg daily Talked with Dr. James today and he is okay to discharge the patient home. Agree with the plan. 2. Acute renal failure superimposed on chronic kidney disease A&P Creat 3.10 today Nephrology on board PLan CONTINUE bumex 1 mg BiD 3. Hypertension A&P BP in acceptable range Plan BP in acceptable range Plan CONTINUE hydralazine 50 mg TiD CONTINUE metoprpoolol tararte 75 mg BiD 4. Diabetes A&P FS in acceptable range Plan CONTINUE sliding scale insulin 5. Chronic a-fib A&P Chronic Afib Currently in sinus rhythm Plan CONTINUE apixaban 5 mg BiD CONTINUE metoprolol tartartte 75 mg BiD 6. Obesities, morbid A&P BMI 40.5 PLan Diet and calorie restriction Defer further manegment to PCP on discharge HPI: A 72 year old male with PMHx of HTN, DM2, A.fib, CHF, CKD who presents to ED with c/o Worsening SONand productive cough x several days. Patient reports he was recently discharged from our hospital managed for CHF, was okay until 4 days ago, again he started having SOB, Productive cough with greenish sputum. Patient denies any fever/chills, chest pain, nausea, vomiting, abdominal pain, Bowel/bladder changes. patient reports medication compliance. In the ED Patient was tachypneic with sats were in high 80s on RA, Sats were in 92-94 % on 3 L NC, lab work up significant for Hb-11.9, Na-133, BUN/Cr-57/2.85, Troponin elevated at 0.073, Pro bnp elevated at 7300s. CXR showed Findings suggestive of mild congestion/edema versus developing infectiousor inflammatory process. Given Nitro patch, Lasix, IV Zosyn. Family history: Heart disease Hospital Course: Patient preesnted with worsening SOB and cough for 4 days. Of nte, he was recently admitted ot [facility] for CHF exacerbatoin, diuresed with IV furoesmide, his creaitnine was limitiing for furthe rdfiuresis and he wsa discharged with po furosemide. He said he becomes thirsty at home and drank a lot of fluids. he came back within 7 to 8 days of discharge with similar ocmplaints. Tlaed with Dr. Beltran and we restared hte patein ton IV furosemide drip. As expected, the creatinie wsa bumped up a little with IV fursmide. Nephrology was okay with that. We decided to try Bumex dripthis time. He made > 2 litres of urine with Bumex drip. e was changerd to po Biumex BiD and was stable. His creaitnine slighly improved wiht po bumex from IV bumex drip. Talked with cardiolgy tocassie and nephrology yesteday. They agree that we can dishcarge the patient however, the pateint will need to be compliant wiht fluid intake and might need HD in future. Dr. Dyson was martir arredondolted for AV fistula creation and it will be done as outpatient. Discharge Condition: Stable Disposition: Home CC: KAMRON LEPE M.D. <Electronically signed by CHINO CRUZ M.D.> 11/14/22 1401 CHINO CRUZ M.D. cc: << Signature on File>> Reported By: CHINO CRUZ M.D. Signed By: CHINO CRUZ M.D. Tests performed at: [address] [address] documented in this encounterSalem [facility]03-[facility]23 History of Present illness Narrative* Chino Cruz MD - 11/13/2022 11:48 [place] [address] PROGRESS NOTES Patient: ROZ BAKER CHINO CRUZ M.D. [id number] [age] M Status: ADM IN [facility] 2229-A Report Date & Time: 11/13/22 1148 Subjective Date/Time Of Evaluation Date 11/13/22 Time 1148 * Please Note: Patient examined at bedside. Paitent is alert, oriented*3. Denies any complaints. All systems reviewed and all are negative except systems noted. Review of Systems Constitutional Denies: Body Aches, Pain, Chills, Fever, Weakness, Malaise/Fatigue. Eyes Denies: Diplopia, Glaucoma, Photophobia, Change in Visual Acuity. ENT Denies: Ear Discharge/Wax, Chronic Ear Infections, Tinnitus, Hearing Loss, Nasal Pain, Nasal Discharge. Cardiovascular CHF, Edema (grade 2). Denies: Arrhythmia, Cardiomyopathy, Claudication, Cyanosis, Dizziness. Pulmonary Denies: Cough, Hemoptysis, Orthopnea, Pleuritic Chest Pain, Sputum Production, Short of Breath. Gastrointestinal Denies: Nausea, Vomiting, Abdominal Pain, Constipation. Genitourinary Denies: Dysuria, Frequency, Incontinence. Musculoskeletal Denies: Arthralgias, Intermittent Claudication, Myalgia. Skin Denies: Ecchymosis, Eczema, Lesions. Neurological Denies: Ataxia, CVA, Dysphagia. Psych/Social Issues Denies: Anxiety, Depression, Hallucinations. Endocrine Denies: Polyphagia, Polyuria. Hemo/Lymph Denies: Excessive Bleeding, Blood/Clotting Disorder. Allergy/Immuno Denies: Recurrent Infections, IVDA. All Other Systems Other systems reviewed and are negative. Objective Focused Exam Performed General Appearance Alert, Oriented X3, Cooperative, Appears Stated Age, No Acute Distress HEENT Atraumatic, PERRLA, EOMI, Mucous Membr. moist/pink, WNL Lungs Normal Air Movement, Rhonchi, Diminished Neck Supple, No JVD, No Thryomegaly, +2 Carotid Pulse wo Bruit Cardiovascular Tachycardia, Irregular Rhythm, Murmur, Good capillary refill, Normal Pulses Abdomen Normal Bowel Sounds, Soft, No Tenderness, Obese Extremities Edema, Normal Pulses, chronic venous changes to the BLE Skin No Rashes, No Breakdown, No Significant Lesion, No Ulcers, Stasis dermatitis changes Neurological Strength at 5/5 X4 Ext, Normal Tone, Sensation Intact, Cranial Nerves 2-12 NL Psych/Mental Status Normal Mood, Pleasant Endocrine WNL Physical Therapy Ambulated Nutrition PO Restraints Restraints No restraint needed Reviewed - Daily Reviewed Information Medications, Consults, Labs Labs/Vitals/Meds/Orders Hematology Range/Units 11/13 0428 Hematology WBC 4.5 - 10.0 x10(3) 8.6 RBC 4.80 - 5.50 x10(6) 3.46 L Hgb 14.0 - 17.2 g/dL 10.0 L Hct 42.0 - 51.0 % 30.8 L MCV 80.0 - 94.0 fl 89.1 MCH 28.8 - 32.2 pg 29.0 MCHC 33.0 - 36.0 g/dL 32.6 L RDW 12.7 - 15.3 % 14.7 Plt Count 150 - 450 X10(3) 200 MPV 7.4 - 9.2 fl 8.1 Neut % (Auto) 45.0 - 73.0 % 75.1 H Lymph % (Auto) 16.0 - 48.0 % 11.8 L Loving % (Auto) 4.3 - 11.2 % 9.4 Eos % (Auto) 0.5 - 4.9 % 3.3 Baso % (Auto) 0.0 - 1.0 % 0.4 Neut # (Auto) 1.40 - 6.50 x10(3) 6.40 Lymph # (Auto) 1.00 - 3.50 x10(3) 1.00 Loving # (Auto) 0.30 - 0.80 x10(3) 0.80 Eos # (Auto) 0.00 - 0.54 x10(3) 0.30 Baso # (Auto) 0.00 - 0.10 x10(3) 0.00 Chemistry Range/Units 11/13 11/13 11/13 1109 0428 0428 Chemistry Sodium 135 - 145 mmol/L 138 Potassium 3.5 - 5.0 mmol/L 3.3 L Chloride 98 - 107 mmol/L 94 L Carbon Dioxide 22 - 29 mmol/L 29 Anion Gap 15 - 22 mmol/L 18.3 BUN 8 - 23 mg/dL 77 H Creatinine 0.70 - 1.20 mg/dL 3.37 H Est GFR ( Amer) 22 Est GFR (Non-Af Amer) 18 Glucose 82 - 115 mg/dL 196 H POC Glucose 70 - 110 mg/dL 284 H Calcium 8.8 - 10.2 mg/dL 8.9 Total Bilirubin 0.2 - 1.2 mg/dL 0.4 Direct Bilirubin 0.0 - 0.3 mg/dL <0.2 AST 5 - 40 U/L 22 ALT 5 - 41 U/L 14 Alkaline Phosphatase 40 - 130 U/L 109 Total Protein 6.4 - 8.3 g/dL 6.3 L Albumin 3.5 - 5.2 g/dL 3.7 Globulin 1.5 - 4.5 g/dL 2.6 Albumin/Globulin Ratio 1.1 - 2.5 1.42 Range/Units 11/12 1533 Chemistry POC Glucose 70 - 110 mg/dL 237 H 234 H Vital Signs Date Time Temp Pulse Resp B/P B/P Pulse O2 O2 Flow FiO2 Mean Ox Delivery Rate 11/13 0824 78 173/101 11/13 0823 78 173/101 11/13 0800 97.8 78 20 173/101 92 11/13 0755 RA 11/13 0755 RA 11/13 0755 94 RA 11/13 0345 97.7 81 20 151/87 93 11/12 2341 97.5 77 20 154/94 95 11/12 203 93 159/81 11/12 203 93 159/81 11/12 2017 97.6 93 20 159/81 94 /02 1940 RA 11/12 1615 98.6 75 20 148/83 95 02 1537 75 148/83 11/12 1224 97.4 90 18 140/75 90 Intake & Output 11/13 0700 11/12 2300 11/12 1500 Intake Total 266 450 Output Total 398 0262 089 Balance -946 -1251 -017 Current Medications Sig/Oscar Start time Last Medication Dose Route Stop Time Status Admin Potassium Chloride 40 MEQ ONCE ONE 11/13 1145 DC PO 11/13 1146 Bumetanide 1 MG BIDD 11/13 0900 AC 11/13 PO 0923 Magnesium Sulfate 50 ML ONCE ONE 11/12 1100 DC 11/12 IV 11/12 1459 1044 Metoprolol Tartrate 75 MG BID 11/12 0900 AC 11/13 PO 0824 Bumetanide 10 MG .Q24H 11/11 1000 DC 11/12 Sodium Chloride 100 ML IV 1044 Apixaban 5 MG BID 11/11 0900 I 11/13 PO 0824 Empagliflozin 10 MG QDAY 11/11 0900 I 11/13 PO 0824 Melatonin 1 MG DAILY@11/10 2000 AC 11/12 PO 2036 Dextrose/Water See Dose PRN PRN 11/10 1830 AC Insts (1) IV Insulin Human Lispro See Dose SS PRN 11/10 1830 AC 11/13 Insts (2) SC 1110 Hydralazine HCl 50 MG TID 11/10 1500 AC 11/13 PO 0823 Azithromycin 500 MG Q24H 11/10 0800 AC 11/13 Sodium Chloride 250 ML IV 0824 Albuterol/Ipratropium 3 ML PRN SVN PROTOCOL PRN 11/10 0645 r 11/13 IH 0755 Acetaminophen 650 MG Q6HPRN PRN 11/10 0615 AC PO Al Hydrox/Mg Hydrox/ 30 ML Q6HPRN PRN 11/10 0615 AC Simethicone PO Ceftriaxone Sodium 1 GM Q24H 11/10 0615 AC 11/13 Dextrose 50 ML IV 0549 Docusate Sodium 100 MG HSPRN PRN 11/10 0615 AC PO Magnesium Hydroxide 30 ML QDPRN PRN 11/10 0615 AC PO Ondansetron HCl 4 MG Q4HPRN PRN 11/10 0615 AC IV Sodium Chloride 20 ML PRN PRN 11/10 0615 AC 11/11 IV 0553 Dose Instructions: (1)Dextrose/Water: PER HYPOGLYCEMIA PROTOCOL (2)Insulin Human Lispro: PER SLIDING SCALE Orders Procedure Date/time Status GLUCOSE FS 11/13 1109 Complete HEPATIC PANEL 11/13 0400 Complete BASIC METABOLIC PANEL 11/13 0400 Complete PT THER PRO THE EXERCISE EA 11/13 UNK Complete THER PROC GAIT TRAIN EA 15 MIN 11/13 UNK Complete GLUCOSE FS 11/12 2035 Complete GLUCOSE FS 11/12 1533 Complete PT THER PRO THE EXERCISE EA 11/12 UNK Complete THER PROC GAIT TRAIN EA 15 MIN 11/12 UNK Complete Problems Problems Current Problems 1. Acute decompensated heart failure Assessment/Plan Patient presented with SOB and swelling of both lower extremities after being discharged from the hospital for the same reason a week ago porbNP 3266 ECHO s/o EF 55-60% Edema is improving Plan CHANGE to bumex 1 mg BiD --> CONTINUE albumin 12.5 gm IVP q8h CONTINUE metoprolol tartarte 50 mg BiD CONTINUE empaglifozin 10 mg daily talked with Dr. Beltran who is okay to discharge the patient home from his end 2. Acute renal failure superimposed on chronic kidney disease Assessment/Plan Creat 3.37 Nephrology on board PLan CHANGE to bumex 1 mg BiD Talked with Dr. Morales and the consensus was that the patient should be able to be dishcargted tomorrow and with po diuretics. 3. Hypertension Assessment/Plan BP in acceptable range Plan BP in acceptable range Plan CONTINUE hydralazine 50 mg TiD CONTINUE metoprpoolol tararte 75 mg BiD 4. Diabetes Assessment/Plan FS in acceptable range Plan CONTINUE sliding scale insulin 5. Chronic a-fib Assessment/Plan Chronic Afib Currently in sinus rhythm Plan CONTINUE apixaban 5 mg BiD CONTINUE metoprolol tartartte 75 mg BiD 6. Obesities, morbid Assessment/Plan BMI 40.5 PLan Diet and calorie restriction Defer further manegment to PCP on discharge Recent Orders My Orders (without Meds) Procedure Date/time Status HEPATIC PANEL 11/14 399 Complete BASIC METABOLIC PANEL 11/14 399 Complete Plan Plans Activity Out of Bed, Increase Ambulation Diet Continue Current Nursing See orders Medications/IV Plans Modify Medications, Continue Current Meds Diagnostics Labs Ordered Condition Improving/Stable Disposition Stepdown Time Spent 40 minutes Quality DVT Prophylaxis addressed, GI Prophylaxis addressed <Electronically signed by CHINO CRUZ M.D.> 11/13/22 1153 CHINO CRUZ M.D. << Signature on File>> Reported By: CHINO CRUZ M.D. Signed By: CHINO CRUZ M.D. Tests performed at: [address] [address] * Julianne Dumas MD - 11/13/2022 11:25 [place] [address] NEPHROLOGY PROGRESS NOTES Patient: ROZ BAKER JULIANNE DUMAS M.D. [id number] [age] M Status: ADM IN [facility] 2229-A Report Date & Time: 11/13/22 1125 Subjective * Please Note: resting Objective Focused Exam Performed General Appearance Alert, Oriented X3 HEENT Atraumatic, Mucous Membr. moist/pink Lungs Clear to Auscultation, Diminished Cardiovascular NSR, Normal S1, S2, Normal Pulses Abdomen Soft, No Tenderness, Obese Extremities Edema, Normal Pulses Reviewed - Daily Labs/Vitals/Meds/Orders Hematology Range/Units 11/138 Hematology WBC 4.5 - 10.0 x10(3) 8.6 RBC 4.80 - 5.50 x10(6) 3.46 L Hgb 14.0 - 17.2 g/dL 10.0 L Hct 42.0 - 51.0 % 30.8 L MCV 80.0 - 94.0 fl 89.1 MCH 28.8 - 32.2 pg 29.0 MCHC 33.0 - 36.0 g/dL 32.6 L RDW 12.7 - 15.3 % 14.7 Plt Count 150 - 450 X10(3) 200 MPV 7.4 - 9.2 fl 8.1 Neut % (Auto) 45.0 - 73.0 % 75.1 H Lymph % (Auto) 16.0 - 48.0 % 11.8 L Loving % (Auto) 4.3 - 11.2 % 9.4 Eos % (Auto) 0.5 - 4.9 % 3.3 Baso % (Auto) 0.0 - 1.0 % 0.4 Neut # (Auto) 1.40 - 6.50 x10(3) 6.40 Lymph # (Auto) 1.00 - 3.50 x10(3) 1.00 Loving # (Auto) 0.30 - 0.80 x10(3) 0.80 Eos # (Auto) 0.00 - 0.54 x10(3) 0.30 Baso # (Auto) 0.00 - 0.10 x10(3) 0.00 Chemistry Range/Units 11/13 11/13 11/12 0428 0428 2034 Chemistry Sodium 135 - 145 mmol/L 138 Potassium 3.5 - 5.0 mmol/L 3.3 L Chloride 98 - 107 mmol/L 94 L Carbon Dioxide 22 - 29 mmol/L 29 Anion Gap 15 - 22 mmol/L 18.3 BUN 8 - 23 mg/dL 77 H Creatinine 0.70 - 1.20 mg/dL 3.37 H Est GFR ( Amer) 22 Est GFR (Non-Af Amer) 18 Glucose 82 - 115 mg/dL 196 H POC Glucose 70 - 110 mg/dL 237 H Calcium 8.8 - 10.2 mg/dL 8.9 Total Bilirubin 0.2 - 1.2 mg/dL 0.4 Direct Bilirubin 0.0 - 0.3 mg/dL <0.2 AST 5 - 40 U/L 22 ALT 5 - 41 U/L 14 Alkaline Phosphatase 40 - 130 U/L 109 Total Protein 6.4 - 8.3 g/dL 6.3 L Albumin 3.5 - 5.2 g/dL 3.7 Globulin 1.5 - 4.5 g/dL 2.6 Albumin/Globulin Ratio 1.1 - 2.5 1.42 Range/Units 11/12 1533 Chemistry POC Glucose 70 - 110 mg/dL 234 H Vital Signs Date Time Temp Pulse Resp B/P B/P Pulse O2 O2 Flow FiO2 Mean Ox Delivery Rate 11/13 0824 78 173/101 11/13 0823 78 173/101 11/13 0800 97.8 78 20 173/101 92 11/13 0755 RA 11/13 0755 RA 11/13 0755 94 RA 11/13 0345 97.7 81 20 151/87 93 / 2341 97.5 77 20 154/94 95 /02 203 93 159/81 11/12 203 93 159/81 11/12 2017 97.6 93 20 159/81 94 / 1940 11/12 1615 98.6 75 20 148/83 95 03/02 1537 75 148/83 11/12 1224 97.4 90 18 140/75 90 Intake & Output 11/13 0700 11/12 2300 11/12 1500 Intake Total 266 450 Output Total 925 1228 797 Balance -336 -5148 -114 Current Medications Sig/Oscar Start time Last Medication Dose Route Stop Time Status Admin Bumetanide 1 MG BIDD 11/13 0900 AC 11/13 PO 0923 Magnesium Sulfate 50 ML ONCE ONE 11/12 1100 DC 11/12 IV 11/12 1459 1044 Metoprolol Tartrate 75 MG BID 11/12 0900 AC 11/13 PO 0824 Bumetanide 10 MG .Q24H 11/11 1000 DC 11/12 Sodium Chloride 100 ML IV 1044 Apixaban 5 MG BID 11/11 0900 I 11/13 PO 0824 Empagliflozin 10 MG QDAY 11/11 0900 I 11/13 PO 0824 Melatonin 1 MG DAILY@11/10 2000 AC 11/12 PO 2036 Dextrose/Water See Dose PRN PRN 11/10 1830 AC Insts (1) IV Insulin Human Lispro See Dose SS PRN 11/10 1830 AC 11/13 Insts (2) SC 1110 Hydralazine HCl 50 MG TID 11/10 1500 AC 11/13 PO 0823 Azithromycin 500 MG Q24H 11/10 0800 AC 11/13 Sodium Chloride 250 ML IV 0824 Albuterol/Ipratropium 3 ML PRN SVN PROTOCOL PRN 11/10 0645 r 11/13 IH 0755 Acetaminophen 650 MG Q6HPRN PRN 11/10 0615 AC PO Al Hydrox/Mg Hydrox/ 30 ML Q6HPRN PRN 11/10 0615 AC Simethicone PO Ceftriaxone Sodium 1 GM Q24H 11/10 0615 AC 11/13 Dextrose 50 ML IV 0549 Docusate Sodium 100 MG HSPRN PRN 11/10 0615 AC PO Magnesium Hydroxide 30 ML QDPRN PRN 11/10 0615 AC PO Ondansetron HCl 4 MG Q4HPRN PRN 11/10 0615 AC IV Sodium Chloride 20 ML PRN PRN 11/10 0615 AC 11/11 IV 0553 Dose Instructions: (1)Dextrose/Water: PER HYPOGLYCEMIA PROTOCOL (2)Insulin Human Lispro: PER SLIDING SCALE Orders Procedure Date/time Status HEPATIC PANEL 11/13 0400 Complete BASIC METABOLIC PANEL 11/13 0400 Complete PT THER PRO THE EXERCISE EA 15 11/13 UNK Complete THER PROC GAIT TRAIN EA 15 MIN 11/13 UNK Complete GLUCOSE FS 11/12 2034 Complete GLUCOSE FS 11/12 1533 Complete PT THER PRO THE EXERCISE EA 15 11/12 UNK Complete THER PROC GAIT TRAIN EA 15 MIN 11/12 UNK Complete Plan Plans Additional Comments 1. caesar/ckd4 baline 2.4 2. volume overload 3. hypertensive urgency 4. anemia plan 1. agree to decrease diuretic dosing and change to po. discussed need to get OP AVF. close op f/u. d/w <Electronically signed by JULIANNE DUMAS M.D.> 11/13/22 1127 JULIANNE DUMAS M.D. << Signature on File>> Reported By: JULIANNE DUMAS M.D. Signed By: JULIANNE DUMAS M.D. Tests performed at: [address] [address] * Charles Beltran DO - 11/13/2022 7:30 [place] [address] PROGRESS NOTES Patient: ROZ BAKER WAYNE D D.OMaia [id number] [age] M Status: ADM IN [facility] 2229-A Report Date & Time: 11/13/22 0730 Subjective * Please Note: sleeping well\abd less blated Objective Focused Exam Performed General Appearance Cooperative, Appears Stated Age, Mild Distress HEENT EOMI, Mucous Membr. moist/pink Lungs Diminished Neck Supple, No JVD, Bruits Cardiovascular NSR, Murmur, Heave, Edema +2 Abdomen Soft, No Tenderness, No Hepatospenomegaly Extremities No Cyanosis, Edema, Normal Pulses Skin No Significant Lesion, No Ulcers Neurological Normal Speech Psych/Mental Status Normal Affect, Normal Mood Stool Normal Reviewed - Daily Reviewed Information Medications, Consults, Progress Notes, Labs, EKG Labs/Vitals/Meds/Orders Hematology Range/Units 11/14 427 Hematology WBC 4.5 - 10.0 x10(3) 8.6 RBC 4.80 - 5.50 x10(6) 3.46 L Hgb 14.0 - 17.2 g/dL 10.0 L Hct 42.0 - 51.0 % 30.8 L MCV 80.0 - 94.0 fl 89.1 MCH 28.8 - 32.2 pg 29.0 MCHC 33.0 - 36.0 g/dL 32.6 L RDW 12.7 - 15.3 % 14.7 Plt Count 150 - 450 X10(3) 200 MPV 7.4 - 9.2 fl 8.1 Neut % (Auto) 45.0 - 73.0 % 75.1 H Lymph % (Auto) 16.0 - 48.0 % 11.8 L Loving % (Auto) 4.3 - 11.2 % 9.4 Eos % (Auto) 0.5 - 4.9 % 3.3 Baso % (Auto) 0.0 - 1.0 % 0.4 Neut # (Auto) 1.40 - 6.50 x10(3) 6.40 Lymph # (Auto) 1.00 - 3.50 x10(3) 1.00 Loving # (Auto) 0.30 - 0.80 x10(3) 0.80 Eos # (Auto) 0.00 - 0.54 x10(3) 0.30 Baso # (Auto) 0.00 - 0.10 x10(3) 0.00 Chemistry Range/Units 11/13 1533 Chemistry Sodium 135 - 145 mmol/L 138 Potassium 3.5 - 5.0 mmol/L 3.3 L Chloride 98 - 107 mmol/L 94 L Carbon Dioxide 22 - 29 mmol/L 29 Anion Gap 15 - 22 mmol/L 18.3 BUN 8 - 23 mg/dL 77 H Creatinine 0.70 - 1.20 mg/dL 3.37 H Est GFR ( Amer) 22 Est GFR (Non-Af Amer) 18 Glucose 82 - 115 mg/dL 196 H POC Glucose 70 - 110 mg/dL 234 H Calcium 8.8 - 10.2 mg/dL 8.9 Total Bilirubin 0.2 - 1.2 mg/dL 0.4 Direct Bilirubin 0.0 - 0.3 mg/dL <0.2 AST 5 - 40 U/L 22 ALT 5 - 41 U/L 14 Alkaline Phosphatase 40 - 130 U/L 109 Total Protein 6.4 - 8.3 g/dL 6.3 L Albumin 3.5 - 5.2 g/dL 3.7 Globulin 1.5 - 4.5 g/dL 2.6 Albumin/Globulin Ratio 1.1 - 2.5 1.42 Range/Units 11/12 1041 Chemistry POC Glucose 70 - 110 mg/dL 255 H Vital Signs Date Time Temp Pulse Resp B/P B/P Pulse O2 O2 Flow FiO2 Mean Ox Delivery Rate 11/13 0345 97.7 81 20 151/87 93 11/12 2341 97.5 77 20 154/94 95 /2035 93 159/81 / 203 93 159/81 11/12 2017 97.6 93 20 159/81 94 / 1940 RA 11/12 1615 98.6 75 20 148/83 95 /02 1537 75 148/83 03/02 1224 97.4 90 18 140/75 90 03/02 0845 98.4 86 20 149/90 90 03/02 0839 98.4 86 20 149/90 90 03/02 0815 98.4 86 20 149/90 90 03/02 0811 86 149/90 03/02 0810 86 149/90 Intake & Output 11/13 0700 11/12 2300 11/12 1500 Intake Total 266 450 Output Total 925 1200 253 Balance -609 1200 400 Current Medications Sig/Oscar Start time Last Medication Dose Route Stop Time Status Admin Magnesium Sulfate 50 ML ONCE ONE 11/12 1100 DC 11/12 IV 11/12 1459 1044 Metoprolol Tartrate 75 MG BID 11/12 0900 AC 11/12 PO 203 Potassium Chloride 40 MEQ ONCE ONE 11/12 0800 DC 11/12 PO 11/12 0801 0802 Bumetanide 10 MG .Q24H 11/11 1000 AC 11/12 Sodium Chloride 100 ML IV 1044 Apixaban 5 MG BID 11/11 0900 I 11/12 PO 203 Empagliflozin 10 MG QDAY 11/11 0900 AC 11/12 PO 0802 Melatonin 1 MG DAILY@11/10 AC 11/12 PO 203 Dextrose/Water See Dose PRN PRN 11/10 1830 AC Insts (1) IV Insulin Human Lispro See Dose SS PRN 11/10 1830 AC 11/13 Insts (2) SC 0549 Hydralazine HCl 50 MG TID 11/10 1500 AC 11/12 PO 203 Metoprolol Tartrate 50 MG BID 11/10 0945 DC 11/11 PO 2059 Azithromycin 500 MG Q24H 11/10 0800 AC 11/12 Sodium Chloride 250 ML IV 0802 Albuterol/Ipratropium 3 ML PRN SVN PROTOCOL PRN 11/10 0645 r 11/12 IH 1939 Acetaminophen 650 MG Q6HPRN PRN 11/10 0615 AC PO Al Hydrox/Mg Hydrox/ 30 ML Q6HPRN PRN 11/10 0615 AC Simethicone PO Ceftriaxone Sodium 1 GM Q24H 11/10 0615 AC 11/13 Dextrose 50 ML IV 0549 Docusate Sodium 100 MG HSPRN PRN 11/10 0615 AC PO Magnesium Hydroxide 30 ML QDPRN PRN 11/10 0615 AC PO Ondansetron HCl 4 MG Q4HPRN PRN 11/10 0615 AC IV Sodium Chloride 20 ML PRN PRN 11/10 0615 AC 11/11 IV 0553 Dose Instructions: (1)Dextrose/Water: PER HYPOGLYCEMIA PROTOCOL (2)Insulin Human Lispro: PER SLIDING SCALE Orders Procedure Date/time Status HEPATIC PANEL 11/13 0400 Complete BASIC METABOLIC PANEL 11/13 0400 Complete GLUCOSE FS 11/12 1533 Complete GLUCOSE FS 11/12 1041 Complete ADD-ON TEST 11/12 0756 Active MAGNESIUM 11/12 0438 Complete PT THER PRO THE EXERCISE EA 15 11/12 UNK Complete THER PROC GAIT TRAIN EA 15 MIN 11/12 UNK Complete Problems Problems Current Problems 1. Acute renal failure superimposed on chronic kidney disease 2. Chronic a-fib 3. Hypertension Plan Plans Additional Comments 1. Acute on chronic HFpEF - Initially treated with IV lasix gtt. Worsening renal function was noted, still volume over loaded. Was changed to Bumex gtt. 10 negative 6 liter since adm - Started on Jardiance this admit. 2. CAESAR on CKD - Appreciate nephro input. 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 Hypertensive urgency - Improving. - On hydralazine 50mg TID, Lopressor 50mg BID. Increasing Lopressor to 75mg BID to tachycardic rates. 4. Afib RVR - D/c'd on both Coreg and Lopressor last admit and rates were still tachycardic this admission. Lopressor was continued for rate control as pt is developing enlraged LV on echo. - - Will Eliquis for AC. ok for me for home discussed shunt for dialysis and he agress for this as an op <Electronically signed by CHARLES BELTRAN D.O.> 11/13/222121 CHARLES BELTRAN D.O. << Signature on File>> Reported By: CHARLES BELTRAN D.O. Signed By: CHARLES BELTRAN D.O. Tests performed at: [address] [address] * Julianne Dumas MD - 11/12/2022 2:05 [place] [address] NEPHROLOGY PROGRESS NOTES Patient: ROZ BAKER JULIANNE DUMAS M.D. [id number] [age] M Status: ADM IN [facility] 2229-A Report Date & Time: 11/12/22 1405 Subjective * Please Note: resting. Objective Focused Exam Performed General Appearance Alert, Oriented X3 HEENT Atraumatic, Mucous Membr. moist/pink Lungs Clear to Auscultation, Diminished Cardiovascular NSR, Normal S1, S2, Normal Pulses Abdomen Soft, No Tenderness, Obese Extremities Edema, Normal Pulses Reviewed - Daily Labs/Vitals/Meds/Orders Hematology Range/Units 11/12 0442 Hematology WBC 4.5 - 10.0 x10(3) 7.8 RBC 4.80 - 5.50 x10(6) 3.38 L Hgb 14.0 - 17.2 g/dL 9.9 L Hct 42.0 - 51.0 % 30.0 L MCV 80.0 - 94.0 fl 88.7 MCH 28.8 - 32.2 pg 29.3 MCHC 33.0 - 36.0 g/dL 33.0 RDW 12.7 - 15.3 % 14.7 Plt Count 150 - 450 X10(3) 209 MPV 7.4 - 9.2 fl 8.2 Neut % (Auto) 45.0 - 73.0 % 69.8 Lymph % (Auto) 16.0 - 48.0 % 14.4 L Loving % (Auto) 4.3 - 11.2 % 11.1 Eos % (Auto) 0.5 - 4.9 % 4.0 Baso % (Auto) 0.0 - 1.0 % 0.7 Neut # (Auto) 1.40 - 6.50 x10(3) 5.40 Lymph # (Auto) 1.00 - 3.50 x10(3) 1.10 Loving # (Auto) 0.30 - 0.80 x10(3) 0.90 H Eos # (Auto) 0.00 - 0.54 x10(3) 0.30 Baso # (Auto) 0.00 - 0.10 x10(3) 0.10 Chemistry Range/Units 11/12 11/12 11/12 1041 0442 0438 Chemistry Sodium 135 - 145 mmol/L 139 Potassium 3.5 - 5.0 mmol/L 3.7 Chloride 98 - 107 mmol/L 96 L Carbon Dioxide 22 - 29 mmol/L 26 Anion Gap 15 - 22 mmol/L 20.7 BUN 8 - 23 mg/dL 78 H Creatinine 0.70 - 1.20 mg/dL 3.50 H Est GFR ( Amer) 21 Est GFR (Non-Af Amer) 17 Glucose 82 - 115 mg/dL 159 H POC Glucose 70 - 110 mg/dL 255 H Calcium 8.8 - 10.2 mg/dL 8.8 Magnesium 1.6 - 2.4 mg/dL 1.6 Total Bilirubin 0.2 - 1.2 mg/dL 0.4 Direct Bilirubin 0.0 - 0.3 mg/dL <0.2 AST 5 - 40 U/L 19 ALT 5 - 41 U/L 12 Alkaline Phosphatase 40 - 130 U/L 76 Total Protein 6.4 - 8.3 g/dL 6.6 Albumin 3.5 - 5.2 g/dL 3.5 Globulin 1.5 - 4.5 g/dL 3.1 Albumin/Globulin Ratio 1.1 - 2.5 1.12 Range/Units 11/11 11/11 1945 1600 Chemistry POC Glucose 70 - 110 mg/dL 234 H 198 H Vital Signs Date Time Temp Pulse Resp B/P B/P Pulse O2 O2 Flow FiO2 Mean Ox Delivery Rate 11/12 1224 97.4 90 18 140/75 90 03/02 0845 98.4 86 20 149/90 90 03/02 0839 98.4 86 20 149/90 90 03/02 0815 98.4 86 20 149/90 90 03/02 0811 86 149/90 03/02 0810 86 149/90 03/ 0722 RA / 0722 RA / 0722 93 RA 03/ 0300 98.1 83 17 137/89 97 03/02 0000 97.6 82 17 133/69 97 / 2150 98.8 110 18 141/86 96 Nasal 5 Cannula 11/11 2130 98.8 110 18 141/86 96 03/ 2130 98.8 110 18 141/86 96 Nasal 5 Cannula 11/11 2059 71 153/93 11/11 2059 71 153/93 11/11 1559 71 153/93 03 1545 98.1 71 18 153/93 96 Intake & Output 11/12 0700 11/11 2300 11/11 1500 Intake Total 264 300 600 Output Total 900 600 400 Balance -636 -300 200 Current Medications Sig/Oscar Start time Last Medication Dose Route Stop Time Status Admin Magnesium Sulfate 50 ML ONCE ONE 11/12 1100 AC 11/12 IV 11/12 1459 1044 Metoprolol Tartrate 75 MG BID 11/12 0900 AC 11/12 PO 0811 Potassium Chloride 40 MEQ ONCE ONE 11/12 0800 DC 11/12 PO 11/12 0801 0802 Bumetanide 10 MG .Q24H 11/11 1000 AC 11/12 Sodium Chloride 100 ML IV 1044 Apixaban 5 MG BID 11/11 09 AC 11/12 PO 0802 Empagliflozin 10 MG QDAY 11/11 0900 AC 11/12 PO 0802 Albumin Human 50 ML Q8H 11/11 0515 DC 11/12 IV 11/12 0604 0432 Melatonin 1 MG DAILY@11/10 AC 11/11 PO 2058 Dextrose/Water See Dose PRN PRN 11/10 1830 AC Insts (1) IV Insulin Human Lispro See Dose SS PRN 11/10 1830 AC 11/12 Insts (2) SC 1047 Hydralazine HCl 50 MG TID 11/10 1500 AC 11/12 PO 0810 Metoprolol Tartrate 50 MG BID 11/10 0945 DC 11/11 PO 2059 Azithromycin 500 MG Q24H 11/10 0800 AC 11/12 Sodium Chloride 250 ML IV 0802 Albuterol/Ipratropium 3 ML PRN SVN PROTOCOL PRN 11/10 0645 r 11/12 IH 0721 Acetaminophen 650 MG Q6HPRN PRN 11/10 0615 AC PO Al Hydrox/Mg Hydrox/ 30 ML Q6HPRN PRN 11/10 0615 AC Simethicone PO Ceftriaxone Sodium 1 GM Q24H 11/10 0615 AC 11/12 Dextrose 50 ML IV 0537 Docusate Sodium 100 MG HSPRN PRN 11/10 0615 AC PO Magnesium Hydroxide 30 ML QDPRN PRN 11/10 0615 AC PO Ondansetron HCl 4 MG Q4HPRN PRN 11/10 0615 AC IV Sodium Chloride 20 ML PRN PRN 11/10 0615 AC 11/11 IV 0553 Dose Instructions: (1)Dextrose/Water: PER HYPOGLYCEMIA PROTOCOL (2)Insulin Human Lispro: PER SLIDING SCALE Orders Procedure Date/time Status GLUCOSE FS 11/12 1041 Complete ADD-ON TEST 11/12 0756 Active MAGNESIUM 11/12 0438 Complete HEPATIC PANEL 11/12 0400 Complete COMPLETE BLOOD COUNT 11/12 0400 Complete BASIC METABOLIC PANEL 11/12 0400 Complete GLUCOSE FS 11/11 1945 Complete GLUCOSE FS 11/11 1600 Complete Cardiac Pulmonary Rehab Refer 11/11 1537 Active PT THER PRO THE EXERCISE EA 15 11/11 UNK Complete THER PROC GAIT TRAIN EA 15 MIN 11/11 UNK Complete Plan Plans Additional Comments 1. caesar/ckd4 baline 2.4 2. volume overload 3. hypertensive urgency 4. anemia plan 1. rnal functionsa reflecting diuresis and 'uncovering' of his baseline. discused benefit of havingavf placed given state of renal functions. he is willing to go-thru. will consult . am labs. <Electronically signed by JULIANNE DUMAS M.D.> 11/12/22 1406 JULIANNE DUMAS M.D. << Signature on File>> Reported By: JULIANNE DUMAS M.D. Signed By: JULIANNE DUMAS M.D. Tests performed at: [address] [address] * Chino Cruz MD - 11/12/2022 12:43 [place] [address] PROGRESS NOTES Patient: ROZ BAKER CHINO CRUZ M.D. [id number] [age] M Status: ADM IN [facility] 2229-A Report Date & Time: 11/12/22 1243 Subjective Date/Time Of Evaluation Date 11/12/22 Time 1243 * Please Note: Patient examined at bedside. Paitent is alert, oriented*3. Denies any complaints. All systems reviewed and all are negative except systems noted. Review of Systems Constitutional Denies: Body Aches, Pain, Chills, Fever, Weakness, Malaise/Fatigue. Eyes Denies: Diplopia, Glaucoma, Photophobia. ENT Denies: Ear Pain, Ear Discharge/Wax, Chronic Ear Infections, Tinnitus, Hearing Loss, Nasal Pain. Cardiovascular Edema (grade 2). Denies: Arrhythmia, CHF, Cardiomyopathy, Claudication, Cyanosis. Pulmonary Denies: Cough, Hemoptysis, Orthopnea, Pleuritic Chest Pain, Sputum Production, Short of Breath. Gastrointestinal Denies: Nausea, Vomiting, Abdominal Pain, Constipation. Genitourinary Denies: Dysuria, Frequency, Incontinence. Musculoskeletal Denies: Arthralgias, Intermittent Claudication, Myalgia. Skin Denies: Ecchymosis, Eczema, Lesions. Neurological Denies: Ataxia, CVA, Dysphagia. Psych/Social Issues Denies: Anxiety, Depression, Hallucinations. Endocrine Denies: Polyphagia, Polyuria. Hemo/Lymph Denies: Excessive Bleeding, Blood/Clotting Disorder, Blood Transfusions. Allergy/Immuno Denies: Recurrent Infections, IVDA. All Other Systems Other systems reviewed and are negative. Objective Focused Exam Performed General Appearance Alert, Oriented X3, Cooperative, Appears Stated Age, No Acute Distress HEENT Atraumatic, PERRLA, EOMI, Mucous Membr. moist/pink, WNL Lungs Normal Air Movement, Rhonchi, Diminished Neck Supple, No JVD, No Thryomegaly, +2 Carotid Pulse wo Bruit Cardiovascular Tachycardia, Irregular Rhythm, Murmur, Good capillary refill, Normal Pulses Abdomen Normal Bowel Sounds, Soft, No Tenderness, Obese Extremities Edema, Normal Pulses, chronic venous changes to the BLE Skin No Rashes, No Breakdown, No Significant Lesion, No Ulcers, Stasis dermatitis changes Neurological Strength at 5/5 X4 Ext, Normal Tone, Sensation Intact, Cranial Nerves 2-12 NL Psych/Mental Status Normal Mood, Pleasant Physical Therapy Up to chair Nutrition PO Restraints Restraints No restraint needed Reviewed - Daily Reviewed Information Medications, Consults, Labs Labs/Vitals/Meds/Orders Hematology Range/Units 11/12 0442 Hematology WBC 4.5 - 10.0 x10(3) 7.8 RBC 4.80 - 5.50 x10(6) 3.38 L Hgb 14.0 - 17.2 g/dL 9.9 L Hct 42.0 - 51.0 % 30.0 L MCV 80.0 - 94.0 fl 88.7 MCH 28.8 - 32.2 pg 29.3 MCHC 33.0 - 36.0 g/dL 33.0 RDW 12.7 - 15.3 % 14.7 Plt Count 150 - 450 X10(3) 209 MPV 7.4 - 9.2 fl 8.2 Neut % (Auto) 45.0 - 73.0 % 69.8 Lymph % (Auto) 16.0 - 48.0 % 14.4 L Loving % (Auto) 4.3 - 11.2 % 11.1 Eos % (Auto) 0.5 - 4.9 % 4.0 Baso % (Auto) 0.0 - 1.0 % 0.7 Neut # (Auto) 1.40 - 6.50 x10(3) 5.40 Lymph # (Auto) 1.00 - 3.50 x10(3) 1.10 Loving # (Auto) 0.30 - 0.80 x10(3) 0.90 H Eos # (Auto) 0.00 - 0.54 x10(3) 0.30 Baso # (Auto) 0.00 - 0.10 x10(3) 0.10 Chemistry Range/Units 11/12 11/12 11/12 1041 4226 8278 Chemistry Sodium 135 - 145 mmol/L 139 Potassium 3.5 - 5.0 mmol/L 3.7 Chloride 98 - 107 mmol/L 96 L Carbon Dioxide 22 - 29 mmol/L 26 Anion Gap 15 - 22 mmol/L 20.7 BUN 8 - 23 mg/dL 78 H Creatinine 0.70 - 1.20 mg/dL 3.50 H Est GFR ( Amer) 21 Est GFR (Non-Af Amer) 17 Glucose 82 - 115 mg/dL 159 H POC Glucose 70 - 110 mg/dL 255 H Calcium 8.8 - 10.2 mg/dL 8.8 Magnesium 1.6 - 2.4 mg/dL 1.6 Total Bilirubin 0.2 - 1.2 mg/dL 0.4 Direct Bilirubin 0.0 - 0.3 mg/dL <0.2 AST 5 - 40 U/L 19 ALT 5 - 41 U/L 12 Alkaline Phosphatase 40 - 130 U/L 76 Total Protein 6.4 - 8.3 g/dL 6.6 Albumin 3.5 - 5.2 g/dL 3.5 Globulin 1.5 - 4.5 g/dL 3.1 Albumin/Globulin Ratio 1.1 - 2.5 1.12 Range/Units 11/11 11/11 1945 1600 Chemistry POC Glucose 70 - 110 mg/dL 234 H 198 H Vital Signs Date Time Temp Pulse Resp B/P B/P Pulse O2 O2 Flow FiO2 Mean Ox Delivery Rate 11/12 1224 97.4 90 18 140/75 90 11/12 0845 98.4 86 20 149/90 90 11/12 0839 98.4 86 20 149/90 90 11/12 0815 98.4 86 20 149/90 90 03/02 0811 86 149/90 11/12 0810 86 149/90 11/12 0722 RA 11/12 0722 RA 11/12 0722 93 RA 11/12 0300 98.1 83 17 137/89 97 03/02 0000 97.6 82 17 133/69 97 / 2150 98.8 110 18 141/86 96 Nasal 5 Cannula 11/11 2130 98.8 110 18 141/86 96 11/11 2130 98.8 110 18 141/86 96 Nasal 5 Cannula 11/11 205 71 153/93 11/11 2059 71 153/93 11/11 1559 71 153/93 11/11 1545 98.1 71 18 153/93 96 Intake & Output 11/12 0700 11/11 2300 11/11 1500 Intake Total 264 300 600 Output Total 900 600 400 Balance -636 -300 200 Current Medications Sig/Oscar Start time Last Medication Dose Route Stop Time Status Admin Magnesium Sulfate 50 ML ONCE ONE 11/12 1100 AC 11/12 IV 11/12 1459 1044 Metoprolol Tartrate 75 MG BID 11/12 0900 AC 11/12 PO 0811 Potassium Chloride 40 MEQ ONCE ONE 11/12 0800 DC 11/12 PO 11/12 0801 0802 Bumetanide 10 MG .Q24H 11/11 1000 AC 11/12 Sodium Chloride 100 ML IV 1044 Apixaban 5 MG BID 11/11 0900 AC 11/12 PO 0802 Empagliflozin 10 MG QDAY 11/11 0900 AC 11/12 PO 0802 Albumin Human 50 ML Q8H 11/11 0515 DC 11/12 IV 11/12 0604 0432 Melatonin 1 MG DAILY@11/10 2000 AC 11/11 PO 205 Dextrose/Water See Dose PRN PRN 11/10 1830 AC Insts (1) IV Insulin Human Lispro See Dose SS PRN 11/10 1830 AC 11/12 Insts (2) SC 1047 Hydralazine HCl 50 MG TID 11/10 1500 AC 11/12 PO 0810 Metoprolol Tartrate 50 MG BID 11/10 0945 DC 11/11 PO 2059 Azithromycin 500 MG Q24H 11/10 0800 AC 11/12 Sodium Chloride 250 ML IV 0802 Albuterol/Ipratropium 3 ML PRN SVN PROTOCOL PRN 11/10 0645 r 11/12 IH 0721 Acetaminophen 650 MG Q6HPRN PRN 11/10 0615 AC PO Al Hydrox/Mg Hydrox/ 30 ML Q6HPRN PRN 11/10 0615 AC Simethicone PO Ceftriaxone Sodium 1 GM Q24H 11/10 0615 AC 11/12 Dextrose 50 ML IV 0537 Docusate Sodium 100 MG HSPRN PRN 11/10 0615 AC PO Magnesium Hydroxide 30 ML QDPRN PRN 11/10 0615 AC PO Ondansetron HCl 4 MG Q4HPRN PRN 11/10 0615 AC IV Sodium Chloride 20 ML PRN PRN 11/10 0615 AC 11/11 IV 0553 Dose Instructions: (1)Dextrose/Water: PER HYPOGLYCEMIA PROTOCOL (2)Insulin Human Lispro: PER SLIDING SCALE Orders Procedure Date/time Status GLUCOSE FS 11/12 1041 Complete ADD-ON TEST 11/12 0756 Active MAGNESIUM 11/12 0438 Complete HEPATIC PANEL 11/12 0400 Complete COMPLETE BLOOD COUNT 11/12 0400 Complete BASIC METABOLIC PANEL 11/12 0400 Complete GLUCOSE FS 11/11 1945 Complete GLUCOSE FS 11/11 1600 Complete Cardiac Pulmonary Rehab Refer 11/11 1537 Active PT THER PRO THE EXERCISE EA 15 11/11 UNK Complete THER PROC GAIT TRAIN EA 15 MIN 11/11 UNK Complete Problems Problems Current Problems 1. Acute decompensated heart failure Assessment/Plan Patient presented with SOB and swelling of both lower extremities after being discharged from the hospital for the same reason a week ago porbNP 3266 ECHO s/o EF 55-60% Still has significnat pedal edema Discussed with chris CUEVAS from cardoilogy. We will continue the drip for now and monitor creatinine. Plan CONTINUE bumex drip CONTINUE albumin 12.5 gm IVP q8h CONTINUE metoprolol tartarte 50 mg BiD CONTINUE empaglifozin 10 mg daily 2. Acute renal failure superimposed on chronic kidney disease Assessment/Plan Creat worsening today to 3.34 Nephrology on board PLan CONTINUE bumex drip 3. Hypertension Assessment/Plan BP in acceptable range Plan BP in acceptable range Plan CONTINUE hydralazine 50 mg TiD CONTINUE metoprpoolol tararte 50 mg BiD 4. Diabetes Assessment/Plan FS in acceptable range Plan CONTINUE sliding scale insulin 5. Chronic a-fib Assessment/Plan Chronic Afib Currently in sinus rhythm Plan CONTINUE apixaban 5 mg BiD CONTINUE metoprolol tartartte 50 mg BiD 6. Obesities, morbid Assessment/Plan BMI 40.5 PLan Diet and calorie restriction Defer further manegment to PCP on discharge Recent Orders My Orders (without Meds) Procedure Date/time Status HEPATIC PANEL 11/13 399 Complete COMPLETE BLOOD COUNT 11/13 399 Complete BASIC METABOLIC PANEL 11/13 399 Complete Cardiac Pulmonary Rehab Refer 11/11 1537 Active Plan Plans Activity Out of Bed, Increase Ambulation Diet Continue Current Nursing No change in orders Medications/IV Plans Continue Current Meds Diagnostics Labs Ordered Condition Improving/Stable Disposition Stepdown Time Spent 40 minutes Quality DVT Prophylaxis addressed, GI Prophylaxis addressed <Electronically signed by CHINO CRUZ M.D.> 11/12/22 1247 CHINO CRUZ M.D. << Signature on File>> Reported By: CHINO CRUZ M.D. Signed By: CHINO CRUZ M.D. Tests performed at: [address] [address] * Sadaf Mathew APRN.DRONE PILOT - 11/12/2022 7:54 [place] [address] PROGRESS NOTE - CARDIOLOGY Patient: OLIVIASADAF KING C.N.P. [id number] [age] M Status: ADM IN [facility] 2229-A Report Date & Time: 11/12/22 0754 Subjective Date/Time Of Evaluation Date 11/12/22 Time 0754 * Please Note: Breathing is much improved. States he is coughing up a lot of phlegm. No chest pains or SOB. Swelling starting to improve. HR tachycardic over night. Objective Focused Exam Performed General Appearance Alert, Oriented X3, Cooperative, Appears Stated Age, No Acute Distress HEENT Atraumatic, PERRLA, EOMI, Mucous Membr. moist/pink, WNL Lungs Normal Air Movement, Rhonchi, Diminished Neck Supple, No JVD, No Thryomegaly, +2 Carotid Pulse wo Bruit Cardiovascular Tachycardia, Irregular Rhythm, Murmur, Good capillary refill, Normal Pulses Abdomen Normal Bowel Sounds, Soft, No Tenderness, Obese Extremities Edema, Normal Pulses, chronic venous changes to the BLE Skin No Rashes, No Breakdown, No Significant Lesion, No Ulcers, Stasis dermatitis changes Neurological Strength at 5/5 X4 Ext, Normal Tone, Sensation Intact, Cranial Nerves 2-12 NL Psych/Mental Status Normal Mood, Pleasant Physical Therapy Up to chair Nutrition PO Echocardiogram 10/26/22: FINDINGS: 1. Left Ventricle: Left ventricle wall thickness is normal. The ejection fraction is normal , estimated at 55% to 60%. No wall motion abnormalities were appreciated. 2. Left Atrium: The left atrium is mildly dilated. 3. Right Ventricle: The right ventricle is not well visualized. It is low-normal based on TAPSE of 2.1 centimeters. 4. Right Atrium: Within normal limits. 5. Aortic Valve: Aortic valve appears to be trileaflet and is mildly calcified. 6. Mitral Valve: The mitral valve is not well visualized. There is mild mitral regurgitation. Could not rule out mild mitral stenosis. 7. Pulmonic valve: Not well visualized. 8. Tricuspid Valve: There is mild tricuspid regurgitation. Could not estimate RSVP accurately as there was not a full envelope of tricuspid regurgitation. 9. Aorta: The aortic root is normal in size. The ascending aorta is not well visualized. 10. Pericardium: There is no pericardial effusion. 11. Extracardiac masses: None. 12. Intracardiac Masses: None. 13. Inferior vena cava: The inferior vena cava is mildly dilated, and collapses more than 50 % withinhalation, consistent with a right atrial pressure of 8 mmHg. CONCLUSION: 1. LVEF is normal, estimated at 55% to 60%. 2. There is mild mitral and tricuspid regurgitation. Reviewed - Daily Reviewed Information Medications, Nurse Notes, Progress Notes, Telemetry, Labs, Vitals, Diagnostics Labs/Vitals/Meds/Orders Hematology Range/Units 11/12 11/11 0442 1016 Hematology WBC 4.5 - 10.0 x10(3) 7.8 RBC 4.80 - 5.50 x10(6) 3.38 L Hgb 14.0 - 17.2 g/dL 9.9 L Hct 42.0 - 51.0 % 30.0 L MCV 80.0 - 94.0 fl 88.7 MCH 28.8 - 32.2 pg 29.3 MCHC 33.0 - 36.0 g/dL 33.0 RDW 12.7 - 15.3 % 14.7 Plt Count 150 - 450 X10(3) 209 MPV 7.4 - 9.2 fl 8.2 Neut % (Auto) 45.0 - 73.0 % 69.8 Lymph % (Auto) 16.0 - 48.0 % 14.4 L Loving % (Auto) 4.3 - 11.2 % 11.1 Eos % (Auto) 0.5 - 4.9 % 4.0 Baso % (Auto) 0.0 - 1.0 % 0.7 Neut # (Auto) 1.40 - 6.50 x10(3) 5.40 Lymph # (Auto) 1.00 - 3.50 x10(3) 1.10 Loving # (Auto) 0.30 - 0.80 x10(3) 0.90 H Eos # (Auto) 0.00 - 0.54 x10(3) 0.30 Baso # (Auto) 0.00 - 0.10 x10(3) 0.10 Eos Smear Total Cells 100 Chemistry Range/Units 11/12 11/11 11/11 0442 1945 1600 Chemistry Sodium 135 - 145 mmol/L 139 Potassium 3.5 - 5.0 mmol/L 3.7 Chloride 98 - 107 mmol/L 96 L Carbon Dioxide 22 - 29 mmol/L 26 Anion Gap 15 - 22 mmol/L 20.7 BUN 8 - 23 mg/dL 78 H Creatinine 0.70 - 1.20 mg/dL 3.50 H Est GFR ( Amer) 21 Est GFR (Non-Af Amer) 17 Glucose 82 - 115 mg/dL 159 H POC Glucose 70 - 110 mg/dL 234 H 198 H Calcium 8.8 - 10.2 mg/dL 8.8 Total Bilirubin 0.2 - 1.2 mg/dL 0.4 Direct Bilirubin 0.0 - 0.3 mg/dL <0.2 AST 5 - 40 U/L 19 ALT 5 - 41 U/L 12 Alkaline Phosphatase 40 - 130 U/L 76 Total Protein 6.4 - 8.3 g/dL 6.6 Albumin 3.5 - 5.2 g/dL 3.5 Globulin 1.5 - 4.5 g/dL 3.1 Albumin/Globulin Ratio 1.1 - 2.5 1.12 Range/Units 11/11 1052 Chemistry POC Glucose 70 - 110 mg/dL 307 H Urine Tests 11/11 1016 Urines Urine Eosinophils (0 - 1) 0 Vital Signs Date Time Temp Pulse Resp B/P B/P Pulse O2 O2 Flow FiO2 Mean Ox Delivery Rate 11/12 07 RA 11/12 0722 RA 11/12 0722 93 RA 11/12 0300 98.1 83 17 137/89 97 11/12 0000 97.6 82 17 133/69 97 11/11 2150 98.8 110 18 141/86 96 Nasal 5 Cannula 11/11 2130 98.8 110 18 141/86 96 11/11 2130 98.8 110 18 141/86 96 Nasal 5 Cannula 11/11 2058 71 153/93 11/11 205 71 153/93 11/11 1559 71 153/93 11/11 1545 98.1 71 18 153/93 96 11/11 1228 97.8 85 20 152/94 96 11/11 0825 90 158/88 11/11 0824 90 158/88 11/11 0810 97.9 90 18 158/88 97 Intake & Output 11/12 0700 11/11 2300 11/11 1500 Intake Total 264 300 600 Output Total 900 600 400 Balance -636 -300 200 Current Medications Sig/Oscar Start time Last Medication Dose Route Stop Time Status Admin Enoxaparin Sodium 30 MG QDAY 11/12 09 CAN SC Metoprolol Tartrate 75 MG BID 11/12 09 AC PO Bumetanide 10 MG .Q24H 11/11 1000 AC 11/11 Sodium Chloride 100 ML IV 0905 Apixaban 5 MG BID 11/11 09 AC 11/11 PO 2058 Empagliflozin 10 MG QDAY 11/11 09 AC 11/11 PO 08 Bumetanide 1 MG 11/11 0830 CAN IV Albumin Human 50 ML Q8H 11/11 0515 DC 11/12 IV 11/12 0604 0432 Melatonin 1 MG DAILY@11/10 AC 11/11 PO 2058 Dextrose/Water See Dose PRN PRN 11/10 1830 AC Insts (1) IV Insulin Human Lispro See Dose SS PRN 11/10 1830 AC 11/12 Insts (2) SC 0622 Hydralazine HCl 50 MG TID 11/10 1500 AC 11/11 PO 2058 Furosemide 400 MG .Q24H 11/10 0945 DC 11/10 Sodium Chloride 60 ML IV 1137 Metoprolol Tartrate 50 MG BID 11/10 0945 DC 11/11 PO 2058 Enoxaparin Sodium 40 MG QDAY 11/10 0900 DC 11/11 SC 0825 Azithromycin 500 MG Q24H 11/10 0800 AC 11/11 Sodium Chloride 250 ML IV 0829 Albuterol/Ipratropium 3 ML PRN SVN PROTOCOL PRN 11/10 0645 r 11/12 IH 0721 Acetaminophen 650 MG Q6HPRN PRN 11/10 0615 AC PO Al Hydrox/Mg Hydrox/ 30 ML Q6HPRN PRN 11/10 0615 AC Simethicone PO Ceftriaxone Sodium 1 GM Q24H 11/10 0615 AC 11/12 Dextrose 50 ML IV 0537 Docusate Sodium 100 MG HSPRN PRN 11/10 0615 AC PO Magnesium Hydroxide 30 ML QDPRN PRN 11/10 0615 AC PO Ondansetron HCl 4 MG Q4HPRN PRN 11/10 0615 AC IV Sodium Chloride 20 ML PRN PRN 11/10 0615 AC 11/11 IV 0553 Dose Instructions: (1)Dextrose/Water: PER HYPOGLYCEMIA PROTOCOL (2)Insulin Human Lispro: PER SLIDING SCALE Orders Procedure Date/time Status HEPATIC PANEL 11/12 0400 Complete COMPLETE BLOOD COUNT 11/12 0400 Complete BASIC METABOLIC PANEL 11/12 0400 Complete GLUCOSE FS 11/11 1945 Complete GLUCOSE FS 11/11 1600 Complete Cardiac Pulmonary Rehab Refer 11/11 1537 Active GLUCOSE FS 11/11 1052 Complete VTE Prophylaxis Med Addressed 11/11 0845 Active PT THER PRO THE EXERCISE EA 15 11/11 UNK Complete THER PROC GAIT TRAIN EA 15 MIN 11/11 UNK Complete Plan Plans Additional Comments 1. Acute on chronic HFpEF - Initially treated with IV lasix gtt. Worsening renal function was noted, still volume over loaded. Was changed to Bumex gtt. - Started on Jardiance this admit. 2. CAESAR on CKD - Appreciate nephro input. 3. Hypertensive urgency - Improving. - On hydralazine 50mg TID, Lopressor 50mg BID. Increasing Lopressor to 75mg BID to tachycardic rates. 4. Afib RVR - D/c'd on both Coreg and Lopressor last admit and rates were still tachycardic this admission. Lopressor was continued for rate control as pt is developing enlraged LV on echo. - Consider decreasinghydralazine to allow for BP for lopressor if needed. - Will start Eliquis for AC. Will follow. <Electronically signed by SADAF MATHEW C.N.P.> 11/12/22 1122 * <Electronically signed by CHARLES BELTRAN D.O.> 11/13/222125 SADAF MATHEW C.N.P., WAYNE D D.O. << Signature on File>> Reported By: SADAF MATHEW C.N.P. Signed By: CHARLES BELTRAN D.O. Tests performed at: [address] [address] * Chino Cruz MD - 11/11/2022 1:10 [place] [address] PROGRESS NOTES Patient: ROZ BAKER CHINO CRUZ M.D. [id number] [age] M Status: ADM IN [facility] 2229-A Report Date & Time: 11/11/22 1310 Subjective Date/Time Of Evaluation Date 11/11/22 Time 1310 * Please Note: Patient examined at bedside. Paitent is alert, oriented*3. Denies any complaints. All systems reviewed and all are negative except systems noted. Review of Systems Constitutional Denies: Body Aches, Pain, Chills, Fever, Weakness, Malaise/Fatigue. Eyes Denies: Diplopia, Glaucoma, Photophobia, Change in Visual Acuity. ENT Denies: Ear Pain, Ear Discharge/Wax, Chronic Ear Infections, Tinnitus, Hearing Loss, Nasal Pain. Cardiovascular CHF, Edema. Denies: Arrhythmia, Cardiomyopathy, Claudication, Cyanosis, Dizziness, DVT. Pulmonary Denies: Cough, Hemoptysis, Orthopnea, Pleuritic Chest Pain, Sputum Production, Short of Breath. Gastrointestinal Denies: Nausea, Vomiting, Abdominal Pain, Constipation. Genitourinary Denies: Dysuria, Frequency, Incontinence, Hematuria. Musculoskeletal Denies: Arthralgias, Intermittent Claudication, Myalgia. Skin Denies: Ecchymosis, Eczema, Lesions. Neurological Denies: Ataxia, CVA, Dysphagia. Psych/Social Issues Denies: Anxiety, Depression, Hallucinations. Endocrine Denies: Polyphagia, Polyuria. Hemo/Lymph Denies: Excessive Bleeding, Blood/Clotting Disorder, Blood Transfusions. Allergy/Immuno Denies: Recurrent Infections, IVDA. All Other Systems Other systems reviewed and are negative. Objective Focused Exam Performed General Appearance Alert, Oriented X3, Cooperative, Appears Stated Age, No Acute Distress HEENT Atraumatic, PERRLA, EOMI, Mucous Membr. moist/pink, WNL Lungs Normal Air Movement, Diminished Neck Supple, No JVD, No Thryomegaly, +2 Carotid Pulse wo Bruit Cardiovascular Irregular Rhythm, Murmur, Good capillary refill, Normal Pulses Abdomen Normal Bowel Sounds, Soft, No Tenderness, Obese Extremities Edema, Normal Pulses Skin No Rashes, No Breakdown, No Significant Lesion, No Ulcers, Stasis dermatitis changes, Previous skininjury scars on the right leg Neurological Strength at 5/5 X4 Ext, Normal Tone, Sensation Intact, Cranial Nerves 2-12 NL Psych/Mental Status Normal Mood, Pleasant Endocrine WNL Physical Therapy Ambulated Nutrition PO Restraints Restraints No restraint needed Reviewed - Daily Reviewed Information Medications, Consults, Progress Notes, Labs Labs/Vitals/Meds/Orders Hematology Range/Units 11/11 11/11 1016 8154 Hematology WBC 4.5 - 10.0 x10(3) 7.3 RBC 4.80 - 5.50 x10(6) 3.44 L Hgb 14.0 - 17.2 g/dL 10.2 L Hct 42.0 - 51.0 % 30.6 L MCV 80.0 - 94.0 fl 88.9 MCH 28.8 - 32.2 pg 29.7 MCHC 33.0 - 36.0 g/dL 33.4 RDW 12.7 - 15.3 % 14.7 Plt Count 150 - 450 X10(3) 184 MPV 7.4 - 9.2 fl 8.0 Neut % (Auto) 45.0 - 73.0 % 75.1 H Lymph % (Auto) 16.0 - 48.0 % 10.8 L Loving % (Auto) 4.3 - 11.2 % 9.7 Eos % (Auto) 0.5 - 4.9 % 4.1 Baso % (Auto) 0.0 - 1.0 % 0.3 Neut # (Auto) 1.40 - 6.50 x10(3) 5.50 Lymph # (Auto) 1.00 - 3.50 x10(3) 0.80 L Loving # (Auto) 0.30 - 0.80 x10(3) 0.70 Eos # (Auto) 0.00 - 0.54 x10(3) 0.30 Baso # (Auto) 0.00 - 0.10 x10(3) 0.00 Eos Smear Total Cells 100 Chemistry Range/Units 11/11 11/11 11/10 1052 0444 1931 Chemistry Sodium 135 - 145 mmol/L 138 Potassium 3.5 - 5.0 mmol/L 3.7 Chloride 98 - 107 mmol/L 97 L Carbon Dioxide 22 - 29 mmol/L 27 Anion Gap 15 - 22 mmol/L 17.7 BUN 8 - 23 mg/dL 76 H Creatinine 0.70 - 1.20 mg/dL 3.34 H Est GFR ( Amer) 22 Est GFR (Non-Af Amer) 18 Glucose 82 - 115 mg/dL 181 H POC Glucose 70 - 110 mg/dL 307 H 258 H Calcium 8.8 - 10.2 mg/dL 8.8 Total Bilirubin 0.2 - 1.2 mg/dL 0.4 Direct Bilirubin 0.0 - 0.3 mg/dL <0.2 AST 5 - 40 U/L 18 ALT 5 - 41 U/L 13 Alkaline Phosphatase 40 - 130 U/L 74 Troponin T 0 - 0.010 ng/mL 0.072 H Total Protein 6.4 - 8.3 g/dL 6.6 Albumin 3.5 - 5.2 g/dL 3.5 Globulin 1.5 - 4.5 g/dL 3.1 Albumin/Globulin Ratio 1.1 - 2.5 1.12 Range/Units 11/10 1655 Chemistry POC Glucose 70 - 110 mg/dL 260 H Urine Tests 11/11 1016 Urines Urine Eosinophils (0 - 1) 0 Vital Signs Date Time Temp Pulse Resp B/P B/P Pulse O2 O2 Flow FiO2 Mean Ox Delivery Rate 11/11 1228 97.8 85 20 152/94 96 11/11 0825 90 158/88 11/11 0824 90 158/88 11/11 0810 97.9 90 18 158/88 97 11/11 0707 2L 11/11 0707 94 2L 11/11 0400 98.1 72 18 152/94 98 11/10 2354 97.6 78 18 121/73 97 Nasal 5 Cannula 11/10 2244 97.6 78 18 121/73 97 11/10 2132 98.4 76 18 135/70 96 Nasal 5 Cannula 11/107 98.4 76 18 135/70 96 11/10 2005 76 135/70 11/10 2005 76 135/70 11/10 1999 98.4 76 18 135/70 96 11/10 1857 3L 11/10 1604 98.1 72 20 132/82 98 11/10 1448 4L 11/10 1441 105 187/125 11/10 1330 Nasal 5 Cannula Intake & Output 11/11 0700 11/10 2300 11/10 1500 Intake Total 155 575 0 Output Total 1050 400 Balance -895 175 0 Current Medications Sig/Oscar Start time Last Medication Dose Route Stop Time Status Admin Enoxaparin Sodium 30 MG QDAY 11/12 0900 CAN SC Bumetanide 10 MG .Q24H 11/11 1000 AC 11/11 Sodium Chloride 100 ML IV 0905 Apixaban 5 MG BID 11/11 0900 AC 11/11 PO 0912 Empagliflozin 10 MG QDAY 11/11 0900 AC 11/11 PO 0825 Bumetanide 1 MG 11/11 0830 CAN IV Albumin Human 50 ML Q8H 11/11 0515 AC 11/11 IV 11/12 0604 0455 Melatonin 1 MG DAILY@11/10 AC 11/10 PO 2005 Dextrose/Water See Dose PRN PRN 11/10 1830 AC Insts (1) IV Insulin Human Lispro See Dose SS PRN 11/10 1830 AC 11/11 Insts (2) SC 1120 Hydralazine HCl 50 MG TID 11/10 1500 AC 11/11 PO 0824 Albumin Human 50 ML Q8H 11/10 1315 DC 11/10 IV 11/12 0604 2016 Albuterol/Ipratropium 3 ML Q4H SVN PROTOCOL 11/10 1000 DC 11/10 IH 1855 Furosemide 400 MG .Q24H 11/10 0945 DC 11/10 Sodium Chloride 60 ML IV 1137 Metoprolol Tartrate 50 MG BID 11/10 0945 AC 11/11 PO 0825 Enoxaparin Sodium 40 MG QDAY 11/10 0900 DC 11/11 SC 0825 Azithromycin 500 MG Q24H 11/10 0800 AC 11/11 Sodium Chloride 250 ML IV 0829 Albuterol/Ipratropium 3 ML PRN SVN PROTOCOL PRN 11/10 0645 r IH Acetaminophen 650 MG Q6HPRN PRN 11/10 0615 AC PO Al Hydrox/Mg Hydrox/ 30 ML Q6HPRN PRN 11/10 0615 AC Simethicone PO Ceftriaxone Sodium 1 GM Q24H 11/10 0615 AC 11/11 Dextrose 50 ML IV 0553 Docusate Sodium 100 MG HSPRN PRN 11/10 0615 AC PO Magnesium Hydroxide 30 ML QDPRN PRN 11/10 0615 AC PO Ondansetron HCl 4 MG Q4HPRN PRN 11/10 0615 AC IV Sodium Chloride 20 ML PRN PRN 11/10 0615 AC 11/11 IV 0553 Dose Instructions: (1)Dextrose/Water: PER HYPOGLYCEMIA PROTOCOL (2)Insulin Human Lispro: PER SLIDING SCALE Orders Procedure Date/time Status CREATININE 11/12 0400 Active BASIC METABOLIC PANEL 11/12 0400 Active GLUCOSE FS 11/11 1052 Complete VTE Prophylaxis Med Addressed 11/11 0845 Active TROPONIN T 11/11 0400 Complete HEPATIC PANEL 11/11 0400 Complete COMPLETE BLOOD COUNT 11/11 0400 Complete BASIC METABOLIC PANEL 11/11 0400 Complete GLUCOSE FS 11/10 1931 Complete z Fingerstick Glucose 11/10 1827 Active GLUCOSE FS 11/10 1655 Complete PT EVALUATION: MOD COMPLEXITY 11/10 UNK Complete THER PROC GAIT TRAIN EA 15 MIN 11/10 UNK Complete Problems Problems Current Problems 1. Acute decompensated heart failure Assessment/Plan Patient presented with SOB and swelling of both lower extremities after being discharged from the hospital for the same reason a week ago porbNP 3266 ECHO s/o EF 55-60% Still has significnat pedal edema Was on furosemide drip and his renal functoin is worsenined. tlaked wiht Dr. Morales and the consensus is to try bumex drip with IV albumin for him this time to see if that doesnt alter the renal function much Plan START bumex drip CONTINUE albumin 12.5 gm IVP q8h CONTINUE metoprolol tartarte 50 mg BiD CONTINUE empaglifozin 10 mg daily 2. Acute renal failure superimposed on chronic kidney disease Assessment/Plan Creat worsening today to 3.34 Nephrology on board PLan DC furosemide drip and start bumex drip 3. Hypertension Assessment/Plan BP in acceptable range Plan BP in acceptable range Plan CONTINUE hydralazine 50 mg TiD CONTINUE metoprpoolol tararte 50 mg BiD 4. Diabetes Assessment/Plan FS in acceptable range Plan CONTINUE sliding scale insulin 5. Chronic a-fib Assessment/Plan Chronic Afib Currently in sinus rhythm Plan DC warfarin and wsa started on apixaban 5 mg BiD CONTINUE metoprolol tartartte 50 mg BiD 6. Obesities, morbid Assessment/Plan BMI 40.5 PLan Diet and calorie restriction Defer further manegment to PCP on discharge Recent Orders My Orders (without Meds) Procedure Date/time Status TROPONIN T 11/11 040 Complete HEPATIC PANEL 11/11 0400 Complete COMPLETE BLOOD COUNT 11/11 0400 Complete BASIC METABOLIC PANEL 11/11 0400 Complete z Fingerstick Glucose 11/10 1827 Active Plan Plans Activity Out of Bed, Increase Ambulation Diet Continue Current Nursing See orders Medications/IV Plans Modify Medications, Continue Current Meds Diagnostics Labs Ordered Condition Inadequate Response Disposition Stepdown Time Spent 40 minutes Quality DVT Prophylaxis addressed, GI Prophylaxis addressed <Electronically signed by CHINO CRUZ M.D.> 11/11/22 1318 CHINO CRUZ M.D. << Signature on File>> Reported By: CHINO CRUZ M.D. Signed By: CHINO CRUZ M.D. Tests performed at: [address] [place], [place] [address] * Sadaf Mathew APRN.[facility] - 11/11/2022 8:37 [place] [address] PROGRESS NOTE - CARDIOLOGY Patient: ROZ BAKER SADAF MATHEW CMaiaNDane [id number] [age] M Status: ADM IN [facility] 2229-A Report Date & Time: 11/11/22 0837 SADAF MATHEW [employer] 11/11/22 0837: Subjective Date/Time Of Evaluation Date 11/11/22 Time 0837 * Please Note: Breathing is much improved. No chest pains or SOB. Still appears to be volume overloaded. Objective Focused Exam Performed General Appearance Alert, Oriented X3, Cooperative, Mild Distress HEENT Atraumatic, PERRLA, Mucous Membr. moist/pink, WNL Lungs Rhonchi, Crackles Neck Supple, No Thryomegaly, +2 Carotid Pulse wo Bruit Cardiovascular Irregular Rhythm, Murmur, Good capillary refill, Normal Pulses Abdomen Normal Bowel Sounds, Soft, No Tenderness, Obese Extremities Edema, Normal Pulses Skin No Rashes, No Breakdown, No Significant Lesion, No Ulcers, Stasis dermatitis changes, Previous skininjury scars on the right leg Neurological Strength at 5/5 X4 Ext, Normal Tone, Sensation Intact, Cranial Nerves 2-12 NL Psych/Mental Status Normal Mood, Pleasant Echocardiogram 10/26/22: FINDINGS: 1. Left Ventricle: Left ventricle wall thickness is normal. The ejection fraction is normal , estimated at 55% to 60%. No wall motion abnormalities were appreciated. 2. Left Atrium: The left atrium is mildly dilated. 3. Right Ventricle: The right ventricle is not well visualized. It is low-normal based on TAPSE of 2.1 centimeters. 4. Right Atrium: Within normal limits. 5. Aortic Valve: Aortic valve appears to be trileaflet and is mildly calcified. 6. Mitral Valve: The mitral valve is not well visualized. There is mild mitral regurgitation. Could not rule out mild mitral stenosis. 7. Pulmonic valve: Not well visualized. 8. Tricuspid Valve: There is mild tricuspid regurgitation. Could not estimate RSVP accurately as there was not a full envelope of tricuspid regurgitation. 9. Aorta: The aortic root is normal in size. The ascending aorta is not well visualized. 10. Pericardium: There is no pericardial effusion. 11. Extracardiac masses: None. 12. Intracardiac Masses: None. 13. Inferior vena cava: The inferior vena cava is mildly dilated, and collapses more than 50 % withinhalation, consistent with a right atrial pressure of 8 mmHg. CONCLUSION: 1. LVEF is normal, estimated at 55% to 60%. 2. There is mild mitral and tricuspid regurgitation. Reviewed - Daily Reviewed Information Medications, Nurse Notes, Progress Notes, Telemetry, Labs, Vitals, Diagnostics Labs/Vitals/Meds/Orders Hematology Range/Units 11/11 0444 Hematology WBC 4.5 - 10.0 x10(3) 7.3 RBC 4.80 - 5.50 x10(6) 3.44 L Hgb 14.0 - 17.2 g/dL 10.2 L Hct 42.0 - 51.0 % 30.6 L MCV 80.0 - 94.0 fl 88.9 MCH 28.8 - 32.2 pg 29.7 MCHC 33.0 - 36.0 g/dL 33.4 RDW 12.7 - 15.3 % 14.7 Plt Count 150 - 450 X10(3) 184 MPV 7.4 - 9.2 fl 8.0 Neut % (Auto) 45.0 - 73.0 % 75.1 H Lymph % (Auto) 16.0 - 48.0 % 10.8 L Loving % (Auto) 4.3 - 11.2 % 9.7 Eos % (Auto) 0.5 - 4.9 % 4.1 Baso % (Auto) 0.0 - 1.0 % 0.3 Neut # (Auto) 1.40 - 6.50 x10(3) 5.50 Lymph # (Auto) 1.00 - 3.50 x10(3) 0.80 L Loving # (Auto) 0.30 - 0.80 x10(3) 0.70 Eos # (Auto) 0.00 - 0.54 x10(3) 0.30 Baso # (Auto) 0.00 - 0.10 x10(3) 0.00 Chemistry Range/Units 11/11 11/10 11/10 0444 1931 1655 Chemistry Sodium 135 - 145 mmol/L 138 Potassium 3.5 - 5.0 mmol/L 3.7 Chloride 98 - 107 mmol/L 97 L Carbon Dioxide 22 - 29 mmol/L 27 Anion Gap 15 - 22 mmol/L 17.7 BUN 8 - 23 mg/dL 76 H Creatinine 0.70 - 1.20 mg/dL 3.34 H Est GFR ( Amer) 22 Est GFR (Non-Af Amer) 18 Glucose 82 - 115 mg/dL 181 H POC Glucose 70 - 110 mg/dL 258 H 260 H Calcium 8.8 - 10.2 mg/dL 8.8 Total Bilirubin 0.2 - 1.2 mg/dL 0.4 Direct Bilirubin 0.0 - 0.3 mg/dL <0.2 AST 5 - 40 U/L 18 ALT 5 - 41 U/L 13 Alkaline Phosphatase 40 - 130 U/L 74 Troponin T 0 - 0.010 ng/mL 0.072 H Total Protein 6.4 - 8.3 g/dL 6.6 Albumin 3.5 - 5.2 g/dL 3.5 Globulin 1.5 - 4.5 g/dL 3.1 Albumin/Globulin Ratio 1.1 - 2.5 1.12 Range/Units 11/10 0949 Chemistry Troponin T 0 - 0.010 ng/mL 0.061 H Vital Signs Date Time Temp Pulse Resp B/P B/P Pulse O2 O2 Flow FiO2 Mean Ox Delivery Rate 11/11 08 90 158/88 11/11 0824 90 158/88 11/11 0810 97.9 90 18 158/88 97 11/11 0707 2L 11/11 0707 94 2L 11/11 0400 98.1 72 18 152/94 98 11/10 2354 97.6 78 18 121/73 97 Nasal 5 Cannula 11/10 2244 97.6 78 18 121/73 97 11/10 2132 98.4 76 18 135/70 96 Nasal 5 Cannula 11/10 2116 98.4 76 18 135/70 96 11/10 2005 76 135/70 11/10 2005 76 135/70 11/10 1999 98.4 76 18 135/70 96 11/10 1857 3L 11/10 1604 98.1 72 20 132/82 98 11/10 1448 4L 11/10 1441 105 187/125 11/10 1330 Nasal 5 Cannula 11/10 1139 105 187/125 11/10 1106 4L 11/10 1106 5L 11/10 1106 96 4L 11/10 1051 98.7 105 32 187/125 98 Nasal 5 Cannula Intake & Output 11/11 0700 11/10 2300 11/10 1500 Intake Total 155 575 0 Output Total 1050 400 Balance -895 175 0 Current Medications Sig/Oscar Start time Last Medication Dose Route Stop Time Status Admin Bumetanide 10 MG .Q24H 11/11 1000 AC Sodium Chloride 100 ML IV Empagliflozin 10 MG QDAY 11/11 0900 AC 11/11 PO 0825 Bumetanide 1 MG 11/11 0830 CAN IV Albumin Human 50 ML Q8H 11/11 0515 AC 11/11 IV 11/12 0604 0455 Melatonin 1 MG DAILY@11/10 AC 11/10 PO 2005 Dextrose/Water See Dose PRN PRN 11/10 1830 AC Insts (1) IV Insulin Human Lispro See Dose SS PRN 11/10 1830 AC 11/11 Insts (2) SC 0602 Hydralazine HCl 50 MG TID 11/10 1500 AC 11/11 PO 0824 Albumin Human 50 ML Q8H 11/10 1315 DC 11/10 IV 11/12 0604 2016 Tolvaptan 15 MG NOW STA 11/10 1303 DC 11/10 PO 11/10 1304 1439 Albuterol/Ipratropium 3 ML Q4H SVN PROTOCOL 11/10 1000 DC 11/10 IH 1855 Furosemide 400 MG .Q24H 11/10 0945 DC 11/10 Sodium Chloride 60 ML IV 1137 Metoprolol Tartrate 50 MG BID 11/10 0945 AC 11/11 PO 0825 Enoxaparin Sodium 40 MG QDAY 11/10 0900 I 11/11 SC 0825 Furosemide 80 MG Q12HST 11/10 0900 DC IV Azithromycin 500 MG Q24H 11/10 0800 AC 11/11 Sodium Chloride 250 ML IV 0829 Albuterol/Ipratropium 3 ML PRN SVN PROTOCOL PRN 11/10 0645 r IH Acetaminophen 650 MG Q6HPRN PRN 11/10 0615 AC PO Al Hydrox/Mg Hydrox/ 30 ML Q6HPRN PRN 11/10 0615 AC Simethicone PO Ceftriaxone Sodium 1 GM Q24H 11/10 0615 AC 11/11 Dextrose 50 ML IV 0553 Docusate Sodium 100 MG HSPRN PRN 11/10 0615 AC PO Magnesium Hydroxide 30 ML QDPRN PRN 11/10 0615 AC PO Ondansetron HCl 4 MG Q4HPRN PRN 11/10 0615 AC IV Sodium Chloride 20 ML PRN PRN 11/10 0615 AC 11/11 IV 0553 Dose Instructions: (1)Dextrose/Water: PER HYPOGLYCEMIA PROTOCOL (2)Insulin Human Lispro: PER SLIDING SCALE Orders Procedure Date/time Status BASIC METABOLIC PANEL 11/12 0400 Active URINE EOS COUNT 11/11 0400 Active TROPONIN T 11/11 0400 Complete SER PROT ELEC [id number] 11/11 0400 Active HEPATIC PANEL 11/11 0400 Complete COMPLETE BLOOD COUNT 11/11 0400 Complete COMPLEMENT, C4 (#1834) 11/11 0400 Active COMPLEMENT, C3 (#6452) 11/11 0400 Active BASIC METABOLIC PANEL 11/11 0400 Complete ANCA ANTIBODIES (#[id number]) 11/11 0400 Active GLUCOSE FS 11/10 1931 Complete z Fingerstick Glucose 11/10 1827 Active GLUCOSE FS 11/10 1655 Complete PT: Initial Note Version 1 11/10 1205 Active Weigh CHF/CABG Patient Daily 11/10 0936 Active Strict I&O.... 11/10 0936 Active PT EVALUATION: MOD COMPLEXITY 11/10 UNK Complete THER PROC GAIT TRAIN EA 15 MIN 11/10 UNK Complete Plan Plans Additional Comments 1. Acute on chronic HFpEF - Initially treated with IV lasix gtt. Worsening renal function was noted, still volume over loaded. Being changed to lasix gtt. - Started on Jardiance this admit. 2. CAESAR on CKD - Appreciate nephro input. 3. Hypertensive urgency - Improving. - On hydralazine 50mg TID, Lopressor 50mg BID. 4. Afib RVR - D/c'd on both Coreg and Lopressor last admit and rates were still tachycardic this admission. Lopressor was continued for rate control as pt is developing enlraged LV on echo. - Will start Eliquis for AC. Will follow. CHARLES BELTRAN.O. 11/11/22 2310: Plan Plans Additional Comments I reviewed the chart early am today which involved reviewing consultations, lab work and vitals. Then individually Sadaf saw the patient. She started seeing the patient early in the morning and obtained the history of the chief complaint. She then gathered information from various sources. I would like to thank her for her involvement. later in the day I saw the patient [id number] greater than 15 minutes. I did my own examination Exam: HEENT: Symmetrical facies tongue deviated no carotid bruits no sclericterus stable repeat 3 objects Heart: Regular rate and rhythm systolic murmur at the apex Lungs: Decreased respiratory effort no crackles Abdominal: Soft nontender bowel sounds x4 no rebound Extremities: Pulses adequate no signs of edema range of motion is intact skin turgor is good Assessment/plan: mutliple organ failure renal staus discussed in pict format on the whiteboard possbile dialysis in the near future nursing staff aware of life is in jeopardy and is possible Discussions: 30 min with him and the nursing staffe revied the echo and prior consiultations by my peers .Formed my own differential diagnosis. Spent time with the patient answering questions and providing a plan for the day. Sadaf and I discussed the patient and reviewed the note that she wrote. I was able to finalize a disposition, with her. I had the pleasure in the morning making virtual rounds with the hospitalist. The assessment and diagnosis were discussed with them in detail. Then as a team with the nurse practitioners and the hospitalist we were able to discuss collaboratively the plan for the day. Later tin the day I was able to review laboratory data and diagnostic testing. Report was given to the patient and the floor. Therefore the patient has been seen multiple times through the chart and in person. At the final of the day I was the one who did the majority of the plan complex medical thinking formaking assessment plan Management of the case persistent throughout the day, through conversations with my peers, the hospital nurses and advanced nurse practitioner. The medical complexity continue to evolve throughout the day and I was involved in the majority of these decisions my personal time involvement has been over an hour a day. However with with Sadaf the totall time inviolment for the cardiac team is over 90 minutes <Electronically signed by SADAF MATHEW C.N.P.> 11/11/22 0846 * <Electronically signed by CHARLES BELTRAN D.O.> 11/13/229 SADAF MATHEW C.N.P., WAYNE D D.O. << Signature on File>> Reported By: SADAF MATHEW C.N.P. Signed By: CHARLES BELTRAN D.O. Tests performed at: [address] [address] * Julianne Dumas MD - 11/11/2022 8:17 [place] [address] NEPHROLOGY PROGRESS NOTES Patient: ROZ BAKER JULIANNE DUMAS M.D. [id number] [age] M Status: ADM IN [facility] 2229-A Report Date & Time: 11/11/22 0817 Subjective * Please Note: resting. Objective Focused Exam Performed General Appearance Alert, Oriented X3 HEENT Atraumatic, Mucous Membr. moist/pink Lungs Clear to Auscultation, Diminished Cardiovascular NSR, Normal S1, S2, Normal Pulses Abdomen Soft, No Tenderness, Obese Extremities Edema, Normal Pulses Reviewed - Daily Labs/Vitals/Meds/Orders Hematology Range/Units 11/11 0444 Hematology WBC 4.5 - 10.0 x10(3) 7.3 RBC 4.80 - 5.50 x10(6) 3.44 L Hgb 14.0 - 17.2 g/dL 10.2 L Hct 42.0 - 51.0 % 30.6 L MCV 80.0 - 94.0 fl 88.9 MCH 28.8 - 32.2 pg 29.7 MCHC 33.0 - 36.0 g/dL 33.4 RDW 12.7 - 15.3 % 14.7 Plt Count 150 - 450 X10(3) 184 MPV 7.4 - 9.2 fl 8.0 Neut % (Auto) 45.0 - 73.0 % 75.1 H Lymph % (Auto) 16.0 - 48.0 % 10.8 L Loving % (Auto) 4.3 - 11.2 % 9.7 Eos % (Auto) 0.5 - 4.9 % 4.1 Baso % (Auto) 0.0 - 1.0 % 0.3 Neut # (Auto) 1.40 - 6.50 x10(3) 5.50 Lymph # (Auto) 1.00 - 3.50 x10(3) 0.80 L Loving # (Auto) 0.30 - 0.80 x10(3) 0.70 Eos # (Auto) 0.00 - 0.54 x10(3) 0.30 Baso # (Auto) 0.00 - 0.10 x10(3) 0.00 Chemistry Range/Units 11/11 11/10 11/10 0444 1931 1655 Chemistry Sodium 135 - 145 mmol/L 138 Potassium 3.5 - 5.0 mmol/L 3.7 Chloride 98 - 107 mmol/L 97 L Carbon Dioxide 22 - 29 mmol/L 27 Anion Gap 15 - 22 mmol/L 17.7 BUN 8 - 23 mg/dL 76 H Creatinine 0.70 - 1.20 mg/dL 3.34 H Est GFR ( Amer) 22 Est GFR (Non-Af Amer) 18 Glucose 82 - 115 mg/dL 181 H POC Glucose 70 - 110 mg/dL 258 H 260 H Calcium 8.8 - 10.2 mg/dL 8.8 Total Bilirubin 0.2 - 1.2 mg/dL 0.4 Direct Bilirubin 0.0 - 0.3 mg/dL <0.2 AST 5 - 40 U/L 18 ALT 5 - 41 U/L 13 Alkaline Phosphatase 40 - 130 U/L 74 Troponin T 0 - 0.010 ng/mL 0.072 H Total Protein 6.4 - 8.3 g/dL 6.6 Albumin 3.5 - 5.2 g/dL 3.5 Globulin 1.5 - 4.5 g/dL 3.1 Albumin/Globulin Ratio 1.1 - 2.5 1.12 Range/Units 11/10 0949 Chemistry Troponin T 0 - 0.010 ng/mL 0.061 H Vital Signs Date Time Temp Pulse Resp B/P B/P Pulse O2 O2 Flow FiO2 Mean Ox Delivery Rate 11/11 0707 2L 11/11 0707 94 2L 11/11 0400 98.1 72 18 152/94 98 11/10 2354 97.6 78 18 121/73 97 Nasal 5 Cannula 11/10 2244 97.6 78 18 121/73 97 11/10 2132 98.4 76 18 135/70 96 Nasal 5 Cannula 11/107 98.4 76 18 135/70 96 11/10 2005 76 135/70 11/10 2005 76 135/70 11/10 1999 98.4 76 18 135/70 96 11/10 1857 3L 11/10 1604 98.1 72 20 132/82 98 11/10 1448 4L 11/10 1441 105 187/125 11/10 1330 Nasal 5 Cannula 11/10 1139 105 187/125 11/10 1106 4L 11/10 1106 5L 11/10 1106 96 4L 11/10 1051 98.7 105 32 187/125 98 Nasal 5 Cannula Intake & Output 11/11 0700 11/10 2300 11/10 1500 Intake Total 155 575 0 Output Total 1050 400 Balance -895 175 0 Current Medications Sig/Oscar Start time Last Medication Dose Route Stop Time Status Admin Empagliflozin 10 MG QDAY 11/11 09 AC PO Albumin Human 50 ML Q8H 11/11 0515 AC 11/11 IV 11/12 0604 0455 Melatonin 1 MG DAILY@11/10 AC 11/10 PO 2005 Dextrose/Water See Dose PRN PRN 11/10 1830 AC Insts (1) IV Insulin Human Lispro See Dose SS PRN 11/10 1830 AC 11/11 Insts (2) SC 0602 Hydralazine HCl 50 MG TID 11/10 1500 AC 11/10 PO 2006 Albumin Human 50 ML Q8H 11/10 1315 DC 11/10 IV 11/12 0604 2016 Tolvaptan 15 MG NOW STA 11/10 1303 DC 11/10 PO 11/10 1304 1439 Albuterol/Ipratropium 3 ML Q4H SVN PROTOCOL 11/10 1000 DC 11/10 IH 1855 Furosemide 400 MG .Q24H 11/10 0945 AC 11/10 Sodium Chloride 60 ML IV 1137 Metoprolol Tartrate 50 MG BID 11/10 0945 AC 11/10 PO 2006 Enoxaparin Sodium 40 MG QDAY 11/10 0900 I 11/10 SC 0947 Furosemide 80 MG Q12HST 11/10 0900 DC IV Azithromycin 500 MG Q24H 11/10 0800 AC 11/10 Sodium Chloride 250 ML IV 0946 Albuterol/Ipratropium 3 ML PRN SVN PROTOCOL PRN 11/10 0645 r IH Acetaminophen 650 MG Q6HPRN PRN 11/10 0615 AC PO Al Hydrox/Mg Hydrox/ 30 ML Q6HPRN PRN 11/10 0615 AC Simethicone PO Ceftriaxone Sodium 1 GM Q24H 11/10 0615 AC 11/11 Dextrose 50 ML IV 0553 Docusate Sodium 100 MG HSPRN PRN 11/10 0615 AC PO Magnesium Hydroxide 30 ML QDPRN PRN 11/10 0615 AC PO Ondansetron HCl 4 MG Q4HPRN PRN 11/10 0615 AC IV Sodium Chloride 20 ML PRN PRN 11/10 0615 AC 11/11 IV 0553 Dose Instructions: (1)Dextrose/Water: PER HYPOGLYCEMIA PROTOCOL (2)Insulin Human Lispro: PER SLIDING SCALE Orders Procedure Date/time Status URINE EOS COUNT 11/11 0400 Active TROPONIN T 11/11 0400 Complete SER PROT ELEC 676175 11/11 0400 Active HEPATIC PANEL 11/11 0400 Complete COMPLETE BLOOD COUNT 11/11 0400 Complete COMPLEMENT, C4 (#1834) 11/11 0400 Active COMPLEMENT, C3 (#6452) 11/11 0400 Active BASIC METABOLIC PANEL 11/11 0400 Complete ANCA ANTIBODIES (#559329) 11/11 0400 Active GLUCOSE FS 11/10 1931 Complete z Fingerstick Glucose 11/10 1827 Active GLUCOSE FS 11/10 1655 Complete PT: Initial Note Version 1 11/10 1205 Active Weigh CHF/CABG Patient Daily 11/10 0936 Active Strict I&O.... 11/10 0936 Active Notify Consulting physician 11/10 0838 Active ADD-ON TEST 11/10 0832 Active PROCALCITONIN 11/10 0110 Complete PT EVALUATION: MOD COMPLEXITY 11/10 UNK Complete THER PROC GAIT TRAIN EA 15 MIN 11/10 UNK Complete PHYSICIANS FOR CONSULT 11/10 UNK Active Plan Plans Additional Comments 1. caesar/ckd4 baline 2.4 2. volume overload 3. hypertensive urgency 4. anemia plan 1. will change to bumex. unfortunately we are probbaly uncovering his true renal reserve. 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 he is willing to do the same. but doesn't need to startright away. d/w dr.K. anthony labs. <Electronically signed by JULIANNE DUMAS M.D.> 11/11/22 0819 JULIANNE DUMAS M.D. << Signature on File>> Reported By: JULIANNE DUMAS M.D. Signed By: JULIANNE DUMAS M.D. Tests performed at: [address] [address] * Julianne Dumas MD - 11/10/2022 1:01 [place] [address] QUICK NOTE Patient: ROZ BAKER JULIANNE DUMAS M.D. [id number] [age] M Status: ADM IN [facility] 2229-A Report Date & Time: 11/10/22 1301 Change Of Status Additional Notes [id number] 1. caesar/ckd4 baline 2.4 2. volume overload 3. hypertensive urgency 4. anemia plan 1. will add tolvaptan and albumin. dose meds for gfr<20. will workup further. kaylee dumas <Electronically signed by JULIANNE DUMAS M.D.> 11/10/22 1303 JULIANNE DUMAS M.D. << Signature on File>> Reported By: JULIANNE DUMAS M.D. Signed By: JULIANNE DUMAS M.D. Tests performed at: [place] [address] * Chino Cruz MD - 11/10/2022 10:17 [place] [address] QUICK NOTE Patient: ROZ BAKER CHINO CRUZ M.D. [id number] [age] M Status: ADM IN EDADMIT EDADMIT-07 Report Date & Time: 11/10/22 1017 Change Of Status Additional Notes Patient admitted for SOB and green sputum Has HF exacerbatoin Unsure of his fluid intake after discharge from the hospital Plan START furosemide drip Monitor with cardiology while in hospital <Electronically signed by CHINO CRUZ M.D.> 11/10/22 1018 CHINO CRUZ M.D. << Signature on File>> Reported By: CHINO CRUZ M.D. Signed By: CHINO CRUZ M.D. Tests performed at: [place] [address] * Sadaf Mathew APRN.CNP - 11/10/2022 9:30 [place] [address] QUICK NOTE Patient: ROZ BAKER SADAF MATHEW C.N.P. [id number] [age] M Status: ADM IN [facility] 2229-A Report Date & Time: 11/10/22 0930 Change Of Status Additional Notes Patient presented to the ED with ongoing SOB, worse with minimal exertion over the last 4 days. Wasjust d/c'd from this hospital this month for CHF and CKD. Recommend changing to lasix gtt. Would benefit from stress testing once more medically optimized vs [facility]. Possibly d/c'd on both Coreg and Lopressor. Needs meds verified. Will resume Lopressor as pt 's afib is not controlled, which could be contributing to his CHF. Also, high BP noted, which could be leading to the volume over load too. Developing cardiomyopathy noted on echo with enlarged LV and low end normal LV function. <Electronically signed by SADAF MATHEW C.N.P.> 11/11/22 0824 * <Electronically signed by CHARLES BELTRAN D.O.> 11/13/221 SADAF MATHEW C.N.P., WAYNE D D.O. << Signature on File>> Reported By: SADAF MATHEW C.N.P. Signed By: CHARLES BELTRAN D.O. Tests performed at: [address] [address] [facility]03[facility] Consult note* Conor Dyson MD - 11/12/2022 10:16 [place] [address] HEALTH INFORMATION MANAGEMENT CONSULTATION Patient: ROZ BAKER NIKHILMARIAELENACONOR Christie M.D. [id number] [age] M Status: ADM IN [facility] 2229-A DATE OF CONSULTATION: 11/12/2022 REASON FOR REFERRAL: Long-term hemodialysis access. HISTORY OF PRESENT ILLNESS: The patient is a 72-year-old male who was admitted with chronic renal insufficiency. He has been evaluated by Nephrology who feels that he will likely need hemodialysis in the next few weeks and a consult was made for fistula creation. The patient is right-hand dominant. He was admitted 2 days ago with shortness of breath. He has a history of congestive heart failure, AFib, and chronic renal insufficiency. His BUN and creatinine on admission were 57 and 2.85. He has undergone significant diuresis in the past few days, but his BUN and creatinine have continued to rise, now to 78 and 3.5. He isnot yet on dialysis. PAST MEDICAL HISTORY: Significant for chronic renal failure, AFib, diabetes, hypertension, obesity, CHF. PAST SURGICAL HISTORY: Significant for previous ankle surgery. CURRENT MEDICATIONS: See reconciliation sheet. ALLERGIES: Codeine. SOCIAL HISTORY: History of alcohol use. No tobacco. REVIEW OF SYSTEMS: Significant for shortness of breath, lower extremity swelling, generalized weakness. Otherwise, 10 systems unremarkable. PHYSICAL EXAMINATION: VITAL SIGNS: Stable. He is afebrile. GENERAL: Alert and oriented. No acute distress. HEENT: Mucous membranes moist. NECK: Without jugular venous distention. LUNGS: Clear. CARDIOVASCULAR: Regular rate and rhythm. ABDOMEN: Obese, but soft. No rebound. No guarding. EXTREMITIES: With +2 edema. NEUROLOGIC: Grossly intact. LABORATORY DATA: His white count is 7.8, hemoglobin 9.9, platelets 209. BUN 78, creatinine 3.5, potassium 3.7, glucose 234. Liver function tests were normal. IMPRESSION: 1. Chronic renal failure. 2. Congestive heart failure. RECOMMENDATION AND MEDICAL DECISION MAKING: The patient is in need of long-term hemodialysis access. I would recommend evaluation for possible left arm AV fistula. This can be performed as an outpatient. We will have him follow up with me in the office. We will schedule him for a vein mapping and marking prior to surgery. I discussed fistulacreation at length with the patient including risks, benefits, and alternatives. He wishes to proceed. All questions were answered. Report#: Dict ID [id number] / Int ID [id number] <Electronically signed by CONOR DYSON M.D.> 11/14/22 0752 CONOR DYSON M.D. cc: CONOR DYSON M.D. << Signature on File>> Reported By: CONOR DYSON M.D. Signed By: CONOR DYSON M.D. Tests performed at: [address] [address] * Charles Beltran DO - 11/10/2022 11:34 [place] [address] HEALTH INFORMATION MANAGEMENT CONSULTATION Patient: OLIVIAROZ WAYNE D D.O. [id number] [age] M Status: ADM IN [facility] 2229-A DATE OF CONSULTATION: 11/10/2022 TIME OF SERVICE: 2 p.m. I see the patient secondary to shortness of breath. The patient came in the hospital just not feeling right short of breath. He just went home. MEDICAL THERAPY: In the office was; 1. Hydralazine 50 mg 3 times a day. 2. . 3. Hydrochlorothiazide 25 mg daily. 4. Lopressor 50 mg twice a day. 5. Lisinopril 20 mg twice a day. 6. Spironolactone 25 mg twice a day. The patient came in with shortness of breath, fatigue, and tired. We look at his medicines. He is on Shobha beta-blockade and Aldactone therapy. According to the guidelines, we will go ahead and add Jardiance at this time. He is frustrated because he has chronic kidney disease. over kidney disease with . His last creatinine was noted to be 2.85, has been as high as 3. Therefore, the overall prognosis is poor andthe patient may end up on dialysis. We discussed with him and again he is not too excited about having this surgical procedure. PAST MEDICAL HISTORY: Chronic kidney disease , diabetes, hypertension, hyperlipidemia, diastolic dysfunction, neuropathy, morbid obesity. Last echocardiogram was done in October 2022 demonstrated ejection fraction of 55%. Mild degree ofmitral and tricuspid regurgitation was appreciated. The patient is sitting on the chair. In the emergency room, seen by Sadaf Mathew. We went ahead and started the Lasix drip. The patient verynicely with this Lasix drip. We did have a chance to review the last echocardiogram. This was done today. PHYSICAL EXAMINATION: VITAL SIGNS: Blood pressure 130/80, pulse is 72 and irregular. HEENT: Bilateral carotid bruit. No lymphadenopathy. Repeats 1 object. Mucous membranes are dry. External ears are normal. HEART: Irregular at this time. I do not hear a gallop. Distant laterally. ABDOMEN: Abdominal cavity is scaphoid, soft, nontender. EXTREMITIES: 2 to 3+ pitting edema. The patient has anasarca and edema. This is very poor combination. he was given Lasix therapy. We will go ahead and continue Lasix drip at this time. Another good diuretic agent is Jardiance. The daughter admits to guideline therapy. We will go ahead and start Jardiance at this time. As we start Jardiance, we have to watch for the renal function. His creatinine is 2.8, and I have seen difficulties with the renal function and Jardiance. We will go ahead and start this at this time. Report#: Dict ID [id number] / Int ID [id number] <Electronically signed by CHARLES BELTRAN D.O.> 11/13/22 2130 CHARLES BELTRAN D.O. cc: CHARLES BELTRAN D.O. << Signature on File>> Reported By: CHARLES BELTRAN D.O. Signed By: CHARLES BELTRAN D.O. Tests performed at: [address], [place] [address] * Julianne Dumas MD - 11/10/2022 10:34 [place] [address] HEALTH INFORMATION MANAGEMENT CONSULTATION Patient: ROZ BAKER JULIANNE DUMAS M.D. [id number] [age] M Status: ADM IN [facility] 2229-A DATE OF CONSULTATION: REASON FOR CONSULTATION: Acute kidney injury. HISTORY: Mr. Roz Baker is a 72-year-old gentleman seen by us recently with CHF exacerbation and acute kidney injury, brought in here because of fluid overload state again. He was noted to have a creatinine of 2.8, previously around 3. Baseline creatinine hovers around 2.4 to 2.7. At baseline, his medications are notable for Lasix, hydralazine, spironolactone, lisinopril, metoprolol, insulin. He is unableto give much history, is fairly groggy and sleepy at this time. He has moderate shortness of breath. He is on diuretic drip at this time with unclear amount of urine output. PAST MEDICAL HISTORY: Significant for hypertension, diabetes, atrial fibrillation, CHF, CKD. SURGICAL HISTORY: Ankle surgery. SOCIAL HISTORY: Consumption of alcohol in the past. REVIEW OF SYSTEMS: Unable to do a comprehensive review of systems at this time. PHYSICAL EXAMINATION: VITAL SIGNS: Blood pressure 180s/110s. Profoundly elevated at this time. GENERAL: Significant fluid excess on exam. NECK: JVD is elevated. CHEST: Equal in expansion. No evidence of rhonchi. HEART: S1, S2. No rub. ABDOMEN: Soft, nondistended. Bowel sounds are heard. EXTREMITIES: Bilaterally, he has 2+ edema. Power of the extremities bilaterally equal. DIAGNOSTIC DATA: Laboratory garcia; his creatinine is 2.85, BUN 57. Potassium is 3.9, sodium is 133. He is currently on a diuretic drip with metoprolol and Zosyn. IMPRESSION AND PLAN: Mr. Roz Baker has acute kidney injury with chronic renal insufficiency with stage 3B to 4 at baseline with volume excess and hypertensive urgency. PLAN: We will workup. We will add albumin. We will add tolvaptan as well. We will follow closely. Report#: Dict ID [id number] / Int ID [id number] <Electronically signed by JULIANNE DUMAS M.D.> 11/11/22 0748 JULIANNE DUMAS M.D. cc: JULIANNE DUMAS M.D. << Signature on File>> Reported By: JULIANNE DUMAS M.D. Signed By: JULIANNE DUMAS M.D. Tests performed at: [address] [address] documented [facility]03[facility]03-01-2023 [facility]02-28-2023 Emergency department Note* Maurisio Brown - 11/10/2022 6:47 [place] [address] HEALTH INFORMATION MANAGEMENT EMERGENCY DEPARTMENT REPORT Patient: ROZ BAKER MAURISIO BROWN D.O. [id number] [age] M Status: ADM IN [place] 541409- Date of Service: 11/10/22 CHIEF COMPLAINT: This is a 72-year-old with chief complaint of shortness of breath. HISTORY OF PRESENT ILLNESS: The patient says that he has been increasingly short of breath over the last couple of days. He hasa cough. He has had a very discolored sputum. He says it is a dark green. He denies any fevers, chills, or sore throat with that. He says he is breathless and that is really what brought him here. Hedenies any abdominal pain, change in bowel habits, urinary symptoms. He does not have any chest pain either. SOCIAL HISTORY: He is single. He was formerly a daily drinker. He has not had any alcohol for a month. He does not smoke. SURGICAL HISTORY: Appendectomy. MEDICAL HISTORY: Coronary disease, hypertension, diabetes. He has a history of AFib and heart failure. He said he had a recent admission to our hospital and in perusing the record, he was admitted for heart failure, volume overload, and COPD. He says he has been taking his medications as directed. FAMILY HISTORY: Noncontributory. PHYSICAL EXAMINATION: VITAL SIGNS: His blood pressure is 159/114, his temperature is 98.7, heart rate 100, respiratory rate 36, pulse ox 93% now on 3 L. He does appear to be breathless with any conversation. HEENT: His head is atraumatic, normocephalic. No scleral icterus. No nasal drainage. Oral mucosa pink and moist. RESPIRATORY: He has rales on his respiratory exam, sounds gurgly from the bedside. Has a very rhonchorous cough. CARDIOVASCULAR: His cardiac auscultation is regular. GASTROINTESTINAL: His abdomen is rotund, benign. EXTREMITIES: Intact x4 with chronic venous stasis changes bilaterally. No acute signs of cellulitisin the lower extremities. They are not tender with palpation. NEUROLOGIC: I do not appreciate any focal deficits. SKIN: Otherwise warm and dry. EMERGENCY DEPARTMENT COURSE: The differential diagnosis for this patient would include acute pneumonia given his sputum changes and his shortness of breath. It would include congestive heart failure amongst other etiologies. These were certainly evaluated further with laboratory and radiographic studies. The patient's chest x-ray, which I reviewed, shows evidence for mild congestion and edema possibly and developing infiltrate. His white count today is 7, H and H of 11 and 36, his platelet count is 226,000. His B-peptide is 7386, whereas it was much lower the last visit. His troponin today is 0.073 whereas it was 0.057 the last visit. His sodium is 133. His glucose is 189. His BUN and creatinine are 57 and 2.85, that represents chronic kidney disease as I look at the previous records. So I started the patient on nitro and Lasix. I will give him a dose of antibiotics too for the possible pneumonia. IMPRESSION: 1. Congestive heart failure exacerbation. 2. Chronic kidney disease. 3. Bronchitis, possible pneumonia. I have discussed the case with Dr. Rivera. The patient will be admitted. Report#: Dict ID [id number] / Int ID [id number] <Electronically signed by MAURISIO BROWN D.O.> 11/13/22 0551 MAURISIO BROWN D.O. cc: MAURISIO BROWN D.O.; KAMRON LEPE M.D. << Signature on File>> Reported By: MAURISIO BROWN D.O. Signed By: MAURISIO BROWN D.O. Tests performed at: [address] [address] documented in this encounterSal[facility]02-[facility]23 History and physical note * Suraj Rivera MD - 11/10/2022 6:17 [place] [address] HISTORY AND PHYSICAL Patient: ROZ BAKER Attending: SURAJ RIVERA M.D. PCP: KAMRON LEPE M.D. [id number] [age] M Status: ADM Oralia EDADMIT EDADMIT-07 Report Date & Time: 11/10/22 0617 HPI Chief Complaint Worsening SOB History Of Present Illness A 72 year old male with PMHx of HTN, DM2, A.fib, CHF, CKD who presents to ED with c/o Worsening SONand productive cough x several days. Patient reports he was recently discharged from our hospital managed for CHF, was okay until 4 days ago, again he started having SOB, Productive cough with greenish sputum. Patient denies any fever/chills, chest pain, nausea, vomiting, abdominal pain, Bowel/bladder changes. patient reports medication compliance. In the ED Patient was tachypneic with sats were in high 80s on RA, Sats were in 92-94 % on 3 L NC, lab work up significant for Hb-11.9, Na-133, BUN/Cr-57/2.85, Troponin elevated at 0.073, Pro bnp elevated at 7300s. CXR showed Findings suggestive of mild congestion/edema versus developing infectiousor inflammatory process. Given Nitro patch, Lasix, IV Zosyn. Family history: Heart disease Patient Health History Medical Problems Acute blood loss anemia (ABLA) Acute decompensated heart failure Acute renal failure superimposed on chronic kidney disease Chronic a-fib Diabetes DKA, type 2 Duodenal ulcer DVT prophylaxis Full code status Hypertension Obesities, morbid Ulcer Surgical Problems History of ankle surgery Social History Problems Former consumption of alcohol Allergies Coded Allergies: codeine (N/V 01/26/21) Home Medications Active Scripts HydrALAZINE* Hcl (Apresoline*) 75 MG PO TID 30 Days #270 TAB Prov: 10/30/22 Carvedilol* (Coreg*) 6.25 MG PO BID 30 Days #60 TAB Prov: 10/30/22 Spironolactone* (Aldactone*) 12.5 MG PO QDAY 30 Days #30 TAB Prov: 10/30/22 Famotidine* (Pepcid*) 20 MG PO BID 30 Days #60 TAB Prov: 10/30/22 Furosemide* (Lasix*) 40 MG PO QDAY 30 Days #30 TAB Prov: 10/30/22 Sucralfate* (Carafate*) 1 GM PO ACHS 30 Days #120 TAB Prov: 01/31/21 Reported Medications Insulin Human Lispro* (HumaLOG*) 20 UNITS SC BIDAC Insulin Glargine (Lantus Solostar Pen) 15 UNITS SC QDAY Warfarin* Sod (Coumadin*) 3 MG PO DIRECTED Warfarin* Sod (Coumadin*) 3 MG PO DIRECTED #90 TAB Labs/Vitals/Meds Hematology Range/Units 11/10 0110 Hematology WBC 4.5 - 10.0 x10(3) 7.4 RBC 4.80 - 5.50 x10(6) 4.13 L Hgb 14.0 - 17.2 g/dL 11.9 L Hct 42.0 - 51.0 % 36.5 L MCV 80.0 - 94.0 fl 88.3 MCH 28.8 - 32.2 pg 28.9 MCHC 33.0 - 36.0 g/dL 32.8 L RDW 12.7 - 15.3 % 14.6 Plt Count 150 - 450 X10(3) 226 MPV 7.4 - 9.2 fl 7.5 Neut % (Auto) 45.0 - 73.0 % 82.0 H Lymph % (Auto) 16.0 - 48.0 % 8.2 L Loving % (Auto) 4.3 - 11.2 % 6.2 Eos % (Auto) 0.5 - 4.9 % 3.3 Baso % (Auto) 0.0 - 1.0 % 0.3 Neut # (Auto) 1.40 - 6.50 x10(3) 6.10 Lymph # (Auto) 1.00 - 3.50 x10(3) 0.60 L Loving # (Auto) 0.30 - 0.80 x10(3) 0.50 Eos # (Auto) 0.00 - 0.54 x10(3) 0.20 Baso # (Auto) 0.00 - 0.10 x10(3) 0.00 Chemistry Range/Units 11/10 11/10 0110 0110 Chemistry Sodium 135 - 145 mmol/L 133 L Potassium 3.5 - 5.0 mmol/L 3.9 Chloride 98 - 107 mmol/L 94 L Carbon Dioxide 22 - 29 mmol/L 27 Anion Gap 15 - 22 mmol/L 15.9 BUN 8 - 23 mg/dL 57 H Creatinine 0.70 - 1.20 mg/dL 2.85 H Est GFR ( Amer) 27 Est GFR (Non-Af Amer) 22 Glucose 82 - 115 mg/dL 189 H Calcium 8.8 - 10.2 mg/dL 8.9 Total Bilirubin 0.2 - 1.2 mg/dL 0.5 Direct Bilirubin 0.0 - 0.3 mg/dL <0.2 AST 5 - 40 U/L 42 H ALT 5 - 41 U/L 20 Alkaline Phosphatase 40 - 130 U/L 89 Troponin T 0 - 0.010 ng/mL 0.073 H NT-Pro-B Natriuret Pep pg/mL 7386 Total Protein 6.4 - 8.3 g/dL 7.3 Albumin 3.5 - 5.2 g/dL 3.7 Globulin 1.5 - 4.5 g/dL 3.6 Albumin/Globulin Ratio 1.1 - 2.5 1.02 L Vital Signs Date Time Temp Pulse Resp B/P B/P Pulse O2 O2 Flow FiO2 Mean Ox Delivery Rate 11/10 0440 102 180/96 11/10 0250 3L 11/10 0200 94 18 174/107 92 11/10 0120 97.2 100 36 159/114 93 11/10 0058 97.2 100 36 159/114 93 Intake & Output 11/10 0700 11/09 2300 11/09 1500 Intake Total Output Total Balance Objective Focused Exam Performed General Appearance Alert, Oriented X3, Cooperative, Moderate Distress HEENT Atraumatic, PERRLA, Mucous Membr. moist/pink, WNL Lungs Rhonchi, Crackles Neck Supple, No Thryomegaly, +2 Carotid Pulse wo Bruit Cardiovascular Tachycardia, Irregular Rhythm Abdomen Normal Bowel Sounds, Soft, No Tenderness, No Hepatospenomegaly Extremities Edema, Normal Pulses Skin No Rashes, No Breakdown, No Significant Lesion, No Ulcers, Stasis dermatitis changes, Previous skininjury scars on the right leg Neurological Strength at 5/5 X4 Ext, Normal Tone, Sensation Intact, Cranial Nerves 2-12 NL Psych/Mental Status Normal Mood, Pleasant Plan Plans Activity Out of Bed, Increase Ambulation, OOB to Chair, PT Consult Diet Continue Current Nursing See orders Medications/IV Plans Continue Current Meds Diagnostics Labs Ordered, Consult Condition New Problem Disposition Stepdown Time Spent 45 minutes Additional Comments Assessment/Plan # Acute CHF exacerbation # Elevated Troponin Troponin elevated at 0.073, Pro bnp elevated at 7300s CXR showed Findings suggestive of mild congestion/edema versus developing infectious or inflammatory process ECHO 10/26/22: EF- 55-60%, Mild MR/TR Plan Admit on the step down with tele Start IV lasix 80 mg bid, Consider starting Lasix drip Cardiology consult trend troponins Fluid restriction Salt restriction cardic diet Order labs Monitor # Possible CAP START IV Rocephin and Azithromycin Monitor # CAESAR on CKD stage 4 BUN/Cr-57/2.85(Baseline Cr-2.3) Diuresis Try to avoid nephrotoxic drugs Consult nephrology Strict I $Os Monitor # Anemia Hb-11.1 No signs of active bleeding Monitor # Mild Hyponatremia Na-133 Diuresis Monitor # Hx of A.fib # HTN Resume home meds after medrec # DM2 Start ISS, ACHS <Electronically signed by SURAJ RIVERA M.D.> 11/10/22 0657 SURAJ RIVERA M.D. cc: << Signature on File>> Reported By: SURAJ RIVERA M.D. Signed By: SURAJ RIVERA M.D. 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 Long-term (current) use of anticoagulants SOB (shortness of breath) Shortness of breath Essential hypertension Unspecified essential hypertension Bilateral lower extremity edema Edema History of diabetes mellitus Personal history of other endocrine, metabolic, and immunity disorders Former smoker Personal history of tobacco use, presenting hazards to health [facility] Diagnosis Paroxysmal atrial fibrillation (HCC)- Primary Atrial fibrillation Hypertension, unspecified type HFrEF (heart failure with reduced ejection fraction) (HCC) Heart failure, unspecified Controlled type 2 diabetes mellitus without complication, unspecified whether prison insulin use (HCC) Chronic kidney disease, unspecified CKD stage group home current use of anticoagulant Long-term (current) use of anticoagulants History of echocardiogram Other specified personal history presenting hazards to health Former smoker Personal history of tobacco use, presenting hazards to health [facility]* Diagnosis Paroxysmal atrial fibrillation (HCC) Atrial fibrillation Primary hypertension Unspecified essential hypertension documented in this encounter [facility] note* Diagnosis Stage 4 chronic kidney disease (HCC)- Primary Paroxysmal atrial fibrillation (HCC) Atrial fibrillation Stage 4 chronic kidney disease (HCC) documented in this encounter [facility] note* Diagnosis Chronic heart failure with preserved ejection fraction (HFpEF) (HCC)- Primary Paroxysmal atrial fibrillation (HCC) Atrial fibrillation Primary hypertension Unspecified essential hypertension Stage 4 chronic kidney disease (HCC) Class 3 severe obesity due to excess calories with serious comorbidity and body mass index (BMI) of 40.0 to 44.9 in adult (HCC) [facility]* Diagnosis Non-pressure chronic ulcer of other part of left lower leg with fat layer exposed (HCC)- Primary Chronic venous hypertension (idiopathic) with ulcer of bilateral lower extremity (CODE) (HCC) 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) Non-pressure chronic ulcer of right heel and midfoot with fat layer exposed (HCC) Secondary lymphedema Other lymphedema Type 2 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) historical site guide current use of insulin (HCC) Encounter for long-term (current) use of insulin Diabetic polyneuropathy associated with type 2 diabetes mellitus ([facility]) documented in this encounter [facility] note* Diagnosis Chronic venous hypertension (idiopathic) with ulcer of bilateral lower extremity (CODE) (HCC)- Primary Non-pressure chronic ulcer of other part of left lower leg with fat layer exposed (HCC) 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) Non-pressure chronic ulcer of right heel and midfoot with fat layer exposed (HCC) Secondary lymphedema Other lymphedema Type 2 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) ([facility]) group home current use of insulin (HCC) Encounter for long-term (current) use of insulin Diabetic polyneuropathy associated with type 2 diabetes mellitus (HCC) [facility] Diagnosis Chronic venous hypertension (idiopathic) with ulcer of bilateral lower extremity (CODE) (HCC)- Primary Non-pressure chronic ulcer of other part of left lower leg with fat layer exposed (HCC) 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) Secondary lymphedema Other lymphedema Type 2 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) ([facility]) group home current use of insulin (HCC) Encounter for long-term (current) use of insulin Diabetic polyneuropathy associated with type 2 diabetes mellitus (HCC) Chronic foot ulcer, right, with fat layer exposed (HCC) Ulcer of foot, left, limited to breakdown of skin (HCC) documented in this encounter [facility] note* Diagnosis Chronic venous hypertension (idiopathic) with ulcer of bilateral lower extremity (CODE) (HCC)- Primary Non-pressure chronic ulcer of other part of left lower leg with fat layer exposed (HCC) 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) Secondary lymphedema Other lymphedema Type 2 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) group home current use of insulin (HCC) Encounter for long-term (current) use of insulin [facility] Diagnosis Chronic venous hypertension (idiopathic) with ulcer of bilateral lower extremity (CODE) (HCC)- Primary Non-pressure chronic ulcer of other part of left lower leg with fat layer exposed (HCC) 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) Secondary lymphedema Other lymphedema Type 2 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) group home current use of insulin (HCC) Encounter for long-term (current) use of insulin [facility] Diagnosis Chronic venous hypertension (idiopathic) with ulcer of bilateral lower extremity (CODE) (HCC)- Primary Non-pressure chronic ulcer of other part of left lower leg with fat layer exposed (HCC) 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) Secondary lymphedema Other lymphedema Type 2 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) historical site guide current use of insulin (HCC) Encounter for long-term (current) use of insulin Diabetic polyneuropathy associated with type 2 diabetes mellitus (HCC) documented [facility]* Diagnosis Chronic venous hypertension (idiopathic) with ulcer of bilateral lower extremity (CODE) (HCC)- Primary Non-pressure chronic ulcer of other part of left lower leg with fat layer exposed (HCC) 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) Secondary lymphedema Other lymphedema Type 2 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) Diabetic polyneuropathy associated with type 2 diabetes mellitus (HCC) documented [facility]* Diagnosis Chronic venous hypertension (idiopathic) with ulcer of bilateral lower extremity (CODE) (HCC)- Primary Non-pressure chronic ulcer of other part of left lower leg with fat layer exposed (HCC) 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) Secondary lymphedema Other lymphedema Type 2 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) Diabetic polyneuropathy associated with type 2 diabetes mellitus (HCC) historical site guide current use of insulin (HCC) Encounter for long-term (current) use of insulin [facility] Diagnosis Chronic venous hypertension (idiopathic) with ulcer of bilateral lower extremity (CODE) (HCC)- Primary Non-pressure chronic ulcer of other part of left lower leg with fat layer exposed (HCC) 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) Secondary lymphedema Other lymphedema Type 2 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) Diabetic polyneuropathy associated with type 2 diabetes mellitus (HCC) historical site guide current use of insulin (HCC) Encounter for long-term (current) use of insulin ESRD (end stage renal disease) on dialysis (HCC) End stage renal disease [facility]* Diagnosis Longstanding persistent atrial fibrillation (HCC)- Primary Chronic heart failure with preserved ejection fraction (HFpEF) ([facility]) Moderate concentric left ventricular hypertrophy Primary hypertension Unspecified essential hypertension Stage 4 chronic kidney disease (HCC) Chronic kidney disease on chronic dialysis (HCC) Type 2 diabetes mellitus with stage 4 chronic kidney disease, with long-term current use of insulin ([facility]) Class 1 obesity due to excess calories with serious comorbidity and body mass index (BMI) of 30.0 to 30.9 in adult NYHA class 3 heart failure with preserved ejection fraction ([facility]) [facility] Diagnosis Chronic venous hypertension (idiopathic) with ulcer of bilateral lower extremity (CODE) ([facility])- Primary Non-pressure chronic ulcer of other part of left lower leg with fat layer exposed (HCC) 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) Secondary lymphedema Other lymphedema Type 2 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) Diabetic polyneuropathy associated with type 2 diabetes mellitus (HCC) historical site guide current use of insulin (HCC) Encounter for long-term (current) use of insulin ESRD (end stage renal disease) on dialysis (HCC) End stage renal disease [facility] Diagnosis 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)- Primary [facility] Diagnosis Longstanding persistent atrial fibrillation (HCC)- Primary Chronic heart failure with preserved ejection fraction (HFpEF) (HCC) Primary hypertension Unspecified essential hypertension Chronic kidney disease on chronic dialysis (HCC) Overweight with body mass index (BMI) of 28 to 28.9 in adult [facility] Event Display: History and Physical Scanned [facility] Hospital course Narrative No data available for this section [facility] Reason for referral (narrative)* Outpatient Procedure (Routine) - Closed Specialty Diagnoses / Procedures Referred By Contac t Referred To Contact [facility] Diagnoses SOB (shortness of breath) Procedures ECG COMPLETE ECG ROUTINE ECG W/LEAST 12 LDS W/I&R Ramila Tuttle APRN.CNP [address] [place] [address] [facility][Note 3] Vascular [address] [address] Referral ID Status Reason Start Date Expiration Date V isits Requested Visits Authorized [id number] Closed Auto-Generate d Referral 11/24/2022 11/24/2023 1 1 [facility] for referral (narrative)* Outpatient Procedure (Routine) - Closed Specialty Diagnoses / Procedures Referred By Contac t Referred To Contact [facility] Diagnoses Paroxysmal atrial fibrillation (HCC) Procedures ECG COMPLETE ECG ROUTINE ECG W/LEAST 12 LDS W/I&R Charles Beltran DO [address] [place] [address] [facility][Note 3] Vascular [address] [place] [address] Referral ID Status Reason Start Date Expiration Date V isits Requested Visits Authorized [id number] Closed Auto-Generate d Referral 05/27/2023 2024 1 1 [facility] for referral (narrative)* Outpatient Procedure (Routine) - Authorized Specialty Diagnoses / Procedures Referred By Contac t Referred [facility] Diagnoses Stage 4 chronic kidney disease (HCC) Procedures US ARM VEIN MAP UNL VAS LAB DUP-SCAN XTR VEINS UNILATERAL/LIMITED STUDY Kacie Montenegro DO [address] [place] [address] [address] [place] [address] [facility][Note 3] Vascular [address] [address] Referral ID Status Reason Start Date Expiration Date Visits Requested Visits Authorized [id number] Authorized Auto-Generat ed Referral 3 07/26/2024 1 1 * Outpatient Procedure (Routine) - Pending Review Specialty Diagnoses / Procedures Referred By Contac t Referred To Contact [facility] Diagnoses Stage 4 chronic kidney disease (HCC) Procedures ECG COMPLETE ECG ROUTINE ECG W/LEAST 12 LDS W/I&R Kacie Montenegro DO [address] [place] [address] [facility][Note 3] Vascular [address] [address] Referral ID Status Reason Start Date Expiration Date Visits Requested Visits Authorized [id number] Pending Review Auto-Generat ed Referral 3 07/26/2024 1 1 [facility] for referral (narrative)* Outpatient Procedure (Routine) - New Request Specialty Diagnoses / Procedures Referred By Contac t Referred To Contact [facility] Diagnoses Chronic heart failure with preserved ejection fraction (HFpEF) (HCC) Paroxysmal atrial fibrillation (HCC) Procedures ECG COMPLETE ECG ROUTINE ECG W/LEAST 12 LDS W/I&R [place], CARLOS [address] [place] [address] [facility][Note 3] Vascular [address] [address] Referral ID Status Reason Start Date Expiration Date Visits Requested Visits Authorized [id number] New Request Auto-Generat ed Referral 03/31/2024 03/31/2025 1 1 [facility] for referral (narrative)* Outpatient Procedure (Routine) - New Request Specialty Diagnoses / Procedures Referred By Evelyn t Referred To Contact [facility] Diagnoses Longstanding persistent atrial fibrillation (HCC) Chronic heart failure with preserved ejection fraction (HFpEF) (HCC) Procedures ECG COMPLETE ECG ROUTINE ECG W/LEAST 12 LDS W/I&R [place] APRN.CNP [address] [place] [address] [facility] [place] [address] [place] [address] Referral ID Status Reason Start Date Expiration Date Visits Requested Visits Authorized [id number] New Request Auto-Generat ed Referral 10/05/2024 10/05/2025 1 1 [facility] for referral (narrative)No reason for referral information available[employer] Work Phone: Summary Purpose Family History No Family History Records FoundNo Family History Records FoundNo Family History Records FoundNo Family History Records Found No data available for this section No Family History Records Found No data available for this section No Family History Records Found No data available for this section No Family History Records FoundNo Family History Records FoundNo Family History Records FoundNo Family History Records FoundNo Family History Records Found Advance Directives No Advanced Directives Records Found Date Activated Date Inactivated Comments 07/22/2024 11:44 PM 07/24/2024 10:46 PM Question Answer Comments Full Code Order Discussed With: Patient Date Activated Date Inactivated Comments 03/06/2024 1:24 AM 03/11/2024 7:02 PM Question Answer Comments Full Code Order Discussed With: Patient Date Activated Date Inactivated Comments 12/16/2023 9:45 PM 12/20/2023 7:31 PM Question Answer Comments Full Code Order Discussed With: Patient Date Activated Date Inactivated Comments 11/05/2023 2:51 PM 11/10/2023 7:17 PM Question Answer Comments Full Code Order Discussed With: Patient Date Activated Date Inactivated Comments 10/25/2023 7:13 PM 11/03/2023 3:32 PM Question Answer Comments Full Code Order Discussed With: Patient Date Activated Date Inactivated Comments 03/06/2024 1:24 AM 03/11/2024 7:02 PM Question Answer Comments Full Code Order Discussed With: Patient Date Activated Date Inactivated Comments 12/16/2023 9:45 PM 12/20/2023 7:31 PM Question Answer Comments Full Code Order Discussed With: Patient Date Activated Date Inactivated Comments 11/05/2023 2:51 PM 11/10/2023 7:17 PM Question Answer Comments Full Code Order Discussed With: Patient Date Activated Date Inactivated Comments 10/25/2023 7:13 PM 11/03/2023 3:32 PM Question Answer Comments Full Code Order Discussed With: Patient Date Activated Date Inactivated Comments 08/08/2023 9:41 AM 08/17/2023 4:20 PM Question Answer Comments Full Code Order Discussed With: Patient Date Activated Date Inactivated Comments 12/16/2023 9:45 PM 12/20/2023 7:31 PM Date Activated Date Inactivated Comments 11/05/2023 2:51 PM 11/10/2023 7:17 PM Date Activated Date Inactivated Comments 10/25/2023 7:13 PM 11/03/2023 3:32 PM Date Activated Date Inactivated Comments 08/08/2023 9:41 AM 08/17/2023 4:20 PM Latest Code Status on File Code Status Date Activated Date Inactivated Comments Full Code 11/05/2023 2:51 PM Question Answer Comments Full Code Order Discussed With: Patient Code Status History Code Status Date Activated Date Inactivated Comments Full Code 10/25/2023 7:13 PM 11/03/2023 3:32 PM Question Answer Comments Full Code Order Discussed With: Patient Full Code 08/08/2023 9:41 AM 08/17/2023 4:20 PM Question Answer Comments Full Code Order Discussed With: Patient Date Activated Date Inactivated Comments 11/05/2023 2:51 PM 11/10/2023 7:17 PM Date Activated Date Inactivated Comments 10/25/2023 7:13 PM 11/03/2023 3:32 PM Date Activated Date Inactivated Comments 08/08/2023 9:41 AM 08/17/2023 4:20 PM Date Activated Date Inactivated Comments 03/06/2024 1:24 AM 03/11/2024 7:02 PM Date Activated Date Inactivated Comments 12/16/2023 9:45 PM 12/20/2023 7:31 PM Date Activated Date Inactivated Comments 11/05/2023 2:51 PM 11/10/2023 7:17 PM Date Activated Date Inactivated Comments 10/25/2023 7:13 PM 11/03/2023 3:32 PM Date Activated Date Inactivated Comments 08/08/2023 9:41 AM 08/17/2023 4:20 PM Advance Directive Response Recorded Date/ Time Living Will No November 20, 2024 11:15am Do you have a Healthcare Power of Melt House Drag 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 No January 05, 2025 1:45pm Health Concerns Infection Onset Date Last Indicated Resolved Time COVID-19 Rule-Out 01/26/2021 01/26/2021 01/26/2021 4:13 PM EDT Infection Onset Date Last Indicated Resolved Time COVID-19 Confirmed 12/20/2023 12/20/2023 Reason for Referral Specialty Diagnoses / Procedures Referred By Contac t Referred To Contact Cardiothoracic Surgery Diagnoses Paroxysmal atrial fibrillation (HCC) Procedures CONSULT TO CARDIOTHORACIC SURGERY Charles Beltran DO [address] [place] [address] Referral ID Status Reason Start Date Expiration Date Visits Requested Visits Authorized [id number] Ref Not Required PCP Requested Referral 11/05/2023 11/04/2024 1 1 Specialty Diagnoses / Procedures Referred By Evelyn t Referred To Contact [facility] Diagnoses Paroxysmal atrial fibrillation (HCC) Benign essential HTN Procedures ECG COMPLETE ECG ROUTINE ECG W/LEAST 12 LDS W/I&R [place], [employer] [place] [address] [facility] [place] [address] [place] [address] Referral ID Status Reason Start Date Expiration Date Visits Requested Visits Authorized [id number] Pending Review Auto-Generat ed Referral 11/05/2023 11/04/2024 1 1 Chief Complaint and Reason for Visit Chief Complaint Admit Date Post-op fistula creation 2 WK FU September 28, 2024 9:35am 6-8 WK FU November 16, 2024 12:5 2pm Stage 2 Left Basilic Fistula, Transposit ion January 09, 2025 7:05am Stage 2 Left Basilic Fistula, Transposit ion January 09, 2025 9:43am Post op January 23, 2025 1:49p m Reason for Visit Admit Date AV fistula September 28, 2024 9 :35am ESRD (end stage renal disease) on dialys is September 28, 2024 9:35am ESRD (end stage renal disease) on dialys is November 16, 2024 12:52pm ESRD (end stage renal disease) on dialys is January 09, 2025 7:05am Chief Complaint Admit Date 6-8 WK FU November 16, 2024 12:5 2pm Stage 2 Left Basilic Fistula, Transposit ion January 09, 2025 7:05am Stage 2 Left Basilic Fistula, Transposit ion January 09, 2025 9:43am Post op January 23, 2025 1:49p m S/P L BASILIC AVF TRANSPOSITION, INTERPO SITION PTF February 06, 2025 12:51pm Reason for Visit Admit Date ESRD (end stage renal disease) on dialys is November 16, 2024 12:52pm ESRD (end stage renal disease) on dialys is January 09, 2025 7:05am AV fistula January 23, 2025 1:49p m ESRD (end stage renal disease) on dialys is January 23, 2025 1:49pm Additional Source Comments (unrecognized sect ion and content) No Status Records FoundNo Status Records FoundNo Status Records FoundNo Status Records FoundNo Status Records FoundNo Status Records FoundNo Status Records FoundNo Status Records FoundNo Status Records FoundNo Status Records FoundNo Status Records Found INFORMATION SOURCE (unrecogn ized section and content) DATE CREATED AUTHOR 03/08/2018 [facility] DATE CREATED AUTHOR AUTHOR'S ORGANIZ ATION 03/08/2018 [facility] DATE CREATED AUTHOR AUTHOR'S ORGANIZ ATION 04/23/2021 [facility] DATE CREATED AUTHOR AUTHOR'S ORGANIZ ATION 06/14/2023 [facility] DATE CREATED AUTHOR AUTHOR'S ORGANIZ ATION 12/01/2023 [facility] DATE CREATED AUTHOR AUTHOR'S ORGANIZ ATION 04/21/2024 [facility] ([place]) DATE CREATED AUTHOR AUTHOR'S ORGANIZ ATION 11/10/2024 [facility] DATE CREATED AUTHOR AUTHOR'S ORGANIZ ATION 12/28/2024 [facility] DATE CREATED AUTHOR AUTHOR'S ORGANIZ ATION 01/07/2025 [facility] DATE CREATED AUTHOR AUTHOR'S ORGANIZ ATION 01/18/2025 [facility] DATE CREATED AUTHOR AUTHOR'S ORGANIZ ATION 03/02/2025 [facility] Source Comments (unrecognize d section and content) In the event this informatio n is protected by the Federal Confidentiality of Alcohol and Drug Abuse Patient Records regulations: The Federal rules restrict any use of the information to criminally investigate or prosecute any alcohol or drug abuse patient.[facility] the event this information is protected by the Federal Confidentiality of Alcohol and Drug Abuse Patient Records regulations: The Federal rules restrict any use of the information to criminally investigate or prosecute any alcohol or drug abuse patient.[facility] HospitalIn the event this information is protected by the Federal Confidentiality of Alcohol and Drug Abuse Patient Records regulations: The Federal rules restrict any use of the information to criminally investigate or prosecute any alcohol or drug abuse patient.[facility] HospitalIn the event this information is protected by the Federal Confidentiality of Alcohol and Drug Abuse Patient Records regulations: The Federal rules restrict any use of the information to criminally investigate or prosecute any alcohol or drug abuse patient.[facility] HospitalIn the event this information is protected by the Federal Confidentiality of Alcohol and Drug Abuse Patient Records regulations: The Federal rules restrict any use of the information to criminally investigate or prosecute any alcohol or drug abuse patient.[facility] HospitalIn the event this information is protected by the Federal Confidentiality of Alcohol and Drug Abuse Patient Records regulations: The Federal rules restrict any use of the information to criminally investigate or prosecute any alcohol or drug abuse patient.[facility] HospitalIn the event this information is protected by the Federal Confidentiality of Alcohol and Drug Abuse Patient Records regulations: The Federal rules restrict any use of the information to criminally investigate or prosecute any alcohol or drug abuse patient.[facility] HospitalIn the event this information is protected by the Federal Confidentiality of Alcohol and Drug Abuse Patient Records regulations: The Federal rules restrict any use of the information to criminally investigate or prosecute any alcohol or drug abuse patient.[facility] HospitalIn the event this information is protected by the Federal Confidentiality of Alcohol and Drug Abuse Patient Records regulations: The Federal rules restrict any use of the information to criminally investigate or prosecute any alcohol or drug abuse patient.[facility] HospitalIn the event this information is protected by the Federal Confidentiality of Alcohol and Drug Abuse Patient Records regulations: The Federal rules restrict any use of the information to criminally investigate or prosecute any alcohol or drug abuse patient.[facility] HospitalIn the event this information is protected by the Federal Confidentiality of Alcohol and Drug Abuse Patient Records regulations: The Federal rules restrict any use of the information to criminally investigate or prosecute any alcohol or drug abuse patient.[facility] HospitalIn the event this information is protected by the Federal Confidentiality of Alcohol and Drug Abuse Patient Records regulations: The Federal rules restrict any use of the information to criminally investigate or prosecute any alcohol or drug abuse patient.[facility] HospitalIn the event this information is protected by the Federal Confidentiality of Alcohol and Drug Abuse Patient Records regulations: The Federal rules restrict any use of the information to criminally investigate or prosecute any alcohol or drug abuse patient.[facility] HospitalIn the event this information is protected by the Federal Confidentiality of Alcohol and Drug Abuse Patient Records regulations: The Federal rules restrict any use of the information to criminally investigate or prosecute any alcohol or drug abuse patient.[facility] HospitalIn the event this information is protected by the Federal Confidentiality of Alcohol and Drug Abuse Patient Records regulations: The Federal rules restrict any use of the information to criminally investigate or prosecute any alcohol or drug abuse patient.[facility] HospitalIn the event this information is protected by the Federal Confidentiality of Alcohol and Drug Abuse Patient Records regulations: The Federal rules restrict any use of the information to criminally investigate or prosecute any alcohol or drug abuse patient.[facility] HospitalIn the event this information is protected by the Federal Confidentiality of Alcohol and Drug Abuse Patient Records regulations: The Federal rules restrict any use of the information to criminally investigate or prosecute any alcohol or drug abuse patient.[facility] HospitalIn the event this information is protected by the Federal Confidentiality of Alcohol and Drug Abuse Patient Records regulations: The Federal rules restrict any use of the information to criminally investigate or prosecute any alcohol or drug abuse patient.[facility] HospitalIn the event this information is protected by the Federal Confidentiality of Alcohol and Drug Abuse Patient Records regulations: The Federal rules restrict any use of the information to criminally investigate or prosecute any alcohol or drug abuse patient.[facility] HospitalIn the event this information is protected by the Federal Confidentiality of Alcohol and Drug Abuse Patient Records regulations: The Federal rules restrict any use of the information to criminally investigate or prosecute any alcohol or drug abuse patient.[facility] HospitalIn the event this information is protected by the Federal Confidentiality of Alcohol and Drug Abuse Patient Records regulations: The Federal rules restrict any use of the information to criminally investigate or prosecute any alcohol or drug abuse patient.[facility] HospitalIn the event this information is protected by the Federal Confidentiality of Alcohol and Drug Abuse Patient Records regulations: The Federal rules restrict any use of the information to criminally investigate or prosecute any alcohol or drug abuse patient.[facility] HospitalIn the event this information is protected by the Federal Confidentiality of Alcohol and Drug Abuse Patient Records regulations: The Federal rules restrict any use of the information to criminally investigate or prosecute any alcohol or drug abuse patient.[facility] HospitalIn the event this information is protected by the Federal Confidentiality of Alcohol and Drug Abuse Patient Records regulations: The Federal rules restrict any use of the information to criminally investigate or prosecute any alcohol or drug abuse patient.[facility] HospitalIn the event this information is protected by the Federal Confidentiality of Alcohol and Drug Abuse Patient Records regulations: The Federal rules restrict any use of the information to criminally investigate or prosecute any alcohol or drug abuse patient.[facility] HospitalIn the event this information is protected by the Federal Confidentiality of Alcohol and Drug Abuse Patient Records regulations: The Federal rules restrict any use of the information to criminally investigate or prosecute any alcohol or drug abuse patient.[facility] HospitalIn the event this information is protected by the Federal Confidentiality of Alcohol and Drug Abuse Patient Records regulations: The Federal rules restrict any use of the information to criminally investigate or prosecute any alcohol or drug abuse patient.[facility] HospitalIn the event this information is protected by the Federal Confidentiality of Alcohol and Drug Abuse Patient Records regulations: The Federal rules restrict any use of the information to criminally investigate or prosecute any alcohol or drug abuse patient.[facility] HospitalIn the event this information is protected by the Federal Confidentiality of Alcohol and Drug Abuse Patient Records regulations: The Federal rules restrict any use of the information to criminally investigate or prosecute any alcohol or drug abuse patient.[facility] HospitalIn the event this information is protected by the Federal Confidentiality of Alcohol and Drug Abuse Patient Records regulations: The Federal rules restrict any use of the information to criminally investigate or prosecute any alcohol or drug abuse patient.[facility] HospitalIn the event this information is protected by the Federal Confidentiality of Alcohol and Drug Abuse Patient Records regulations: The Federal rules restrict any use of the information to criminally investigate or prosecute any alcohol or drug abuse patient.[facility] HospitalIn the event this information is protected by the Federal Confidentiality of Alcohol and Drug Abuse Patient Records regulations: The Federal rules restrict any use of the information to criminally investigate or prosecute any alcohol or drug abuse patient.[facility] HospitalIn the event this information is protected by the Federal Confidentiality of Alcohol and Drug Abuse Patient Records regulations: The Federal rules restrict any use of the information to criminally investigate or prosecute any alcohol or drug abuse patient.[facility] HospitalIn the event this information is protected by the Federal Confidentiality of Alcohol and Drug Abuse Patient Records regulations: The Federal rules restrict any use of the information to criminally investigate or prosecute any alcohol or drug abuse patient.[facility] HospitalIn the event this information is protected by the Federal Confidentiality of Alcohol and Drug Abuse Patient Records regulations: The Federal rules restrict any use of the information to criminally investigate or prosecute any alcohol or drug abuse patient.[facility] HospitalIn the event this information is protected by the Federal Confidentiality of Alcohol and Drug Abuse Patient Records regulations: The Federal rules restrict any use of the information to criminally investigate or prosecute any alcohol or drug abuse patient.[facility] HospitalIn the event this information is protected by the Federal Confidentiality of Alcohol and Drug Abuse Patient Records regulations: The Federal rules restrict any use of the information to criminally investigate or prosecute any alcohol or drug abuse patient.[facility] HospitalIn the event this information is protected by the Federal Confidentiality of Alcohol and Drug Abuse Patient Records regulations: The Federal rules restrict any use of the information to criminally investigate or prosecute any alcohol or drug abuse patient.[facility] HospitalIn the event this information is protected by the Federal Confidentiality of Alcohol and Drug Abuse Patient Records regulations: The Federal rules restrict any use of the information to criminally investigate or prosecute any alcohol or drug abuse patient.[facility] HospitalIn the event this information is protected by the Federal Confidentiality of Alcohol and Drug Abuse Patient Records regulations: The Federal rules restrict any use of the information to criminally investigate or prosecute any alcohol or drug abuse patient.[facility] HospitalIn the event this information is protected by the Federal Confidentiality of Alcohol and Drug Abuse Patient Records regulations: The Federal rules restrict any use of the information to criminally investigate or prosecute any alcohol or drug abuse patient.[facility] HospitalIn the event this information is protected by the Federal Confidentiality of Alcohol and Drug Abuse Patient Records regulations: The Federal rules restrict any use of the information to criminally investigate or prosecute any alcohol or drug abuse patient.[facility] HospitalIn the event this information is protected by the Federal Confidentiality of Alcohol and Drug Abuse Patient Records regulations: The Federal rules restrict any use of the information to criminally investigate or prosecute any alcohol or drug abuse patient.[facility] HospitalIn the event this information is protected by the Federal Confidentiality of Alcohol and Drug Abuse Patient Records regulations: The Federal rules restrict any use of the information to criminally investigate or prosecute any alcohol or drug abuse patient.[facility] HospitalIn the event this information is protected by the Federal Confidentiality of Alcohol and Drug Abuse Patient Records regulations: The Federal rules restrict any use of the information to criminally investigate or prosecute any alcohol or drug abuse patient.[facility] HospitalIn the event this information is protected by the Federal Confidentiality of Alcohol and Drug Abuse Patient Records regulations: The Federal rules restrict any use of the information to criminally investigate or prosecute any alcohol or drug abuse patient.[facility] HospitalIn the event this information is protected by the Federal Confidentiality of Alcohol and Drug Abuse Patient Records regulations: The Federal rules restrict any use of the information to criminally investigate or prosecute any alcohol or drug abuse patient.[facility] HospitalIn the event this information is protected by the Federal Confidentiality of Alcohol and Drug Abuse Patient Records regulations: The Federal rules restrict any use of the information to criminally investigate or prosecute any alcohol or drug abuse patient.[facility] HospitalIn the event this information is protected by the Federal Confidentiality of Alcohol and Drug Abuse Patient Records regulations: The Federal rules restrict any use of the information to criminally investigate or prosecute any alcohol or drug abuse patient.[facility] Care Teams (unrecognized sec tion and content) Online Merchant Relationship Specialty Start Date End Date Kamron Lepe [address] [place] [address] PCP - General Family Practice 03/24/21 Online Merchant Relationship Specialty Start Date End Date Kamron Lepe [address] [facility] [place] [address] PCP - General Family Practice 03/24/21 Online Merchant Relationship Specialty Start Date End Date Kamron Lepe [address] [place] [address] PCP - General Family Practice 03/24/21 Online Merchant Relationship Specialty Start Date End Date Kamron Lepe [address] [place] [address] PCP - General Family Medicine 03/24/21 Online Merchant Relationship Specialty Start Date End Date Kamron Lepe [address] [place] [address] PCP - General Family Medicine 03/24/21 Online Merchant Relationship Specialty Start Date End Date Kamron Lepe [address] [place] [address] PCP - General Family Medicine 03/24/21 Online Merchant Relationship Specialty Start Date End Date Sherley Kamron Kaity [address] [place] [address] PCP - General Family Medicine 03/24/21 Online Merchant Relationship Specialty Start Date End Date Kamron Lepe Kaity [address] [place] [address] PCP - General Family Medicine 03/24/21 Online Merchant Relationship Specialty Start Date End Date Kamron Lepe MD [address] [place] [address] PCP - General Family Medicine 03/24/21 Online Merchant Relationship Specialty Start Date End Date Kamron Lepe MD [address] [facility] [place] [address] PCP - General Family Medicine 03/24/21 Online Merchant Relationship Specialty Start Date End Date Kamron Lepe MD [address] [place] [place] [address] PCP - General Family Medicine 03/24/21 Online Merchant Relationship Specialty Start Date End Date Kamron Lepe MD [address] [place] [place] [address] PCP - General Family Medicine 03/24/21 Online Merchant Relationship Specialty Start Date End Date Kamron Lepe MD [address] [place] [place] [address] PCP - General Family Medicine 03/24/21 Online Merchant Relationship Specialty Start Date End Date Kamron Lepe MD [address] [place] [place] [address] PCP - General Family Medicine 03/24/21 Online Merchant Relationship Specialty Start Date End Date Kamron Lepe MD [address] [place] [place] [address] PCP - General Family Medicine 03/24/21 Online Merchant Relationship Specialty Start Date End Date Kamron Lepe MD [address] [place] [place] [address] PCP - General Family Medicine 03/24/21 Online Merchant Relationship Specialty Start Date End Date Kamron Lepe MD [address] [place] [place] [address] PCP - General Family Medicine 03/24/21 Online Merchant Relationship Specialty Start Date End Date Kamron Lepe MD [address] [place] [place] [address] PCP - General Family Medicine 03/24/21 Yoli Echavarria DPM [address] [place] [address] Podiatry 12/06/23 Online Merchant Relationship Specialty Start Date End Date Kamron Lepe MD [address] [place] [address] PCP - General Family Medicine 03/24/21 Yoli Echavarria DPM [address] [place] [address] [id number] Podiatry 12/06/23 Online Merchant Relationship Specialty Start Date End Date Kamron Lepe MD [address] [place] [address] PCP - General Family Medicine 03/24/21 Yoli Echavarria DPM [address] [place] [address] [id number] Podiatry 12/06/23 Online Merchant Relationship Specialty Start Date End Date Kamron Lepe MD [address] [place] [address] PCP - General Family Medicine 03/24/21 Yoli Echavarria DPM [address] [address] Podiatry 12/06/23 Online Merchant Relationship Specialty Start Date End Date Kamron Lepe MD [address] [place] [address] PCP - General Family Medicine 03/24/21 Yoli Echavarria DPM [address] [phone] Podiatry 12/06/23 Online Merchant Relationship Specialty Start Date End Date Kamron Lepe MD [address] [place] [address] PCP - General Family Medicine 03/24/21 Yoli Echavarria DPM [address] [place] [address] [id number] Podiatry 12/06/23 Online Merchant Relationship Specialty Start Date End Date Kamron Lepe MD [address] [place] [address] PCP - General Family Medicine 03/24/21 Yoli Echavarria DPM [address] [id number] Podiatry 12/06/23 Online Merchant Relationship Specialty Start Date End Date Kamron Lepe MD [address] [place] [address] PCP - General Family Medicine 03/24/21 Yoli Echavarria DPM [address] [address] Podiatry 12/06/23 Online Merchant Relationship Specialty Start Date End Date Kamron Lepe MD [address] [place] [address] PCP - General Family Medicine 03/24/21 Yoli Echavarria DPM [address] [place] [address] Podiatry 12/06/23 Online Merchant Relationship Specialty Start Date End Date Kamron Lepe MD [address] [place] [address] PCP - General Family Medicine 03/24/21 Yoli Echavarria DPM [address] [place] [id number] Podiatry 12/06/23 Online Merchant Relationship Specialty Start Date End Date Kamron Lepe MD [address] [place] [address] PCP - General Family Medicine 03/24/21 Yoli Echavarria DPM [address] 088872 Podiatry 12/06/23 Online Merchant Relationship Specialty Start Date End Date Kamron Lepe MD [address] [place] [address] PCP - General Family Medicine 03/24/21 Yoli Echavarria DPM [address] [place] [address] Podiatry 12/06/23 Online Merchant Relationship Specialty Start Date End Date Kamron Lepe MD [address] [place] [address] PCP - General Family Medicine 03/24/21 Yoli Echavarria DPM [address] [place] [address] Podiatry 12/06/23 Online Merchant Relationship Specialty Start Date End Date Kamron Lepe MD [address] [place] [address] PCP - General Family Medicine 03/24/21 Yoli Echavarria DPM [address] [place] [address] Podiatry 12/06/23 Online Merchant Relationship Specialty Start Date End Date Kamron Lepe MD [address] [place] [address] PCP - General Family Medicine 03/24/21 Yoli Echavarria DPM [address] [address] Podiatry 12/06/23 Online Merchant Relationship Specialty Start Date End Date Kamron Lepe MD [address] [place] [address] PCP - General Family Medicine 03/24/21 Yoli Echavarria DPM [address] [address] Podiatry 12/06/23 Online Merchant Relationship Specialty Start Date End Date Kamron Lepe MD [address] [place] [address] PCP - General Family Medicine 03/24/21 Yoli Echavarria DPM [address] 170642 Podiatry 12/06/23 Team Status: Active Member Role Status Dates Dr. Kamron Lepe MD Primary Care Provider Active Team Status: Inactive Member Role Status Dates Dr. Kamron Lepe MD Primary Care Provider Active Start: September 28, 2024 End: September 28, 2024 Dr. Kamron Lepe MD Referring Provider Active Start: September 28, 2024 End: September 28, 2024 LORI Ayala Attending Provider Active Star t: September 28, 2024 End: September 28, 2024 Team Status: Inactive Member Role Status Dates Dr. Kamron Lepe MD Primary Care Provider Active Start: November 16, 2024 End: November 16, 2024 Dr. Kamron Lepe MD Referring Provider Active Start: November 16, 2024 End: November 16, 2024 Dr. Hugo Alvarado MD Attending Provider Active S tart: November 16, 2024 End: November 16, 2024 Team Status: Inactive Member Role Status Dates Dr. Kamron Lepe MD Primary Care Provider Active Start: January 09, 2025 End: January 09, 2025 Dr. Hugo Alvarado MD Attending Provider Active S tart: January 09, 2025 End: January 09, 2025 Dr. Hugo Alvarado MD Referring Provider Active S tart: January 09, 2025 End: January 09, 2025 Team Status: Active Member Role Status Dates Dr. Kamron Lepe MD Primary Care Provider Active Start: January 09, 2025 Dr. Hugo Alvarado MD Attending Provider Active S tart: January 09, 2025 Dr. Hugo Alvarado MD Referring Provider Active S tart: January 09, 2025 Dr. Hugo Alvarado MD Other Provider Active Start : January 09, 2025 Team Status: Inactive Member Role Status Dates Dr. Kamron Lepe MD Primary Care Provider Active Start: January 23, 2025 End: January 23, 2025 Dr. Kamron Lepe MD Referring Provider Active Start: January 23, 2025 End: January 23, 2025 LORI Ayala Attending Provider Active Star t: January 23, 2025 End: January 23, 2025 Team Status: Inactive Member Role Status Dates Dr. Kamron Lepe MD Primary Care Provider Active Start: February 06, 2025 End: February 06, 2025 LORI Ayala Attending Provider Active Star t: February 06, 2025 End: February 06, 2025 LORI Ayala Referring Provider Active Star t: February 06, 2025 End: February 06, 2025 Team Status: Active Member Role Status Dates Dr. Kamron Lepe MD Primary Care Provider Active Start: February 06, 2025 Dr. Hugo Alvarado MD Attending Provider Active S tart: February 06, 2025 Reason for Visit (unrecogniz ed section and content) Reason Comments Follow Up Reason Comments Appointment Reason Comments Established Patient Follow-Up 6 mo CHF Reason Onset Date Comments Refill Request 06/29/2023 Reason Comments New Patient Discuss fistula Specialty Diagnoses / Procedures Referred By Contac t Referred To Contact General Surgery / GENERAL SURGERY Diagnoses fistula Procedures [place] [address] [place] [address] [place] [address] Kacie Montenegro, DO [facility] [address] [place] [id number] Referral ID Status Reason Start Date Expiration Date Visits Requested Visits Authorized [id number] Outside PCP OON/Self Pay Override 3 01/23/2024 1 1 Reason Comments CARD Hospital Follow Up [facility] f/u. Reason Comments Wound Care Reason Comments Wound Check Reason Comments Patient Question Reason Comments CARD Hospital Follow Up [facility] f/u- CHF Reason Comments Medication Problem Reason Comments Established Patient Follow-Up 6 month f/ u HF/AFIB FOR RECORDS PERTAINING TO PATIENTS WHO ARE OR HAVE BEEN ENROLLED IN A CHEMICAL DEPENDENCY/SUBSTANCEABUSE PROGRAM, SOME INFORMATION MAY BE OMITTED. This clinical summary was aggregated from multiple sources. Caution should be exercised in using it in the provision of clinical care. This summary normalizes information from multiple sources, and as a consequence, information in this document may materially change the coding, format and clinical context of patient data. In addition, data may be omitted in some cases. CLINICAL DECISIONS SHOULD BE BASED ON THE PRIMARY CLINICAL RECORDS. [facility] [employer] [facility]. provides no warranty or guarantee of the accuracy or completeness of information in this document.
--- NOTE | 2025-03-08 08:03 | PCM.HP.STD ---
HPI - General HPI Narrative ROZ BAKER, is a 74 M who presents with ESRD on dialysis successfully using left arm fistula. He has a tunneled catheter that is no longer in use and removal has been requested. [facility] Medical History Walker as ambulation aid Fractured pelvis Wears glasses Alcohol use Ambulates with cane Gout Arthritis Low iron Easy bruising Back pain Dietary restriction Former smoker Shortness of breath on exertion Insulin dependent diabetes mellitus History of pain when walking History of edema History of echocardiogram Cardiology follow-up encounter History of atrial fibrillation History of GI bleed History of renal dialysis History of hemodialysis CHF (congestive heart failure) Peptic ulcer Hypertension Diabetes ESRD (end stage renal disease) Home Medications ?Medication ?Instructions ?Recorded ?Last Taken ?Type furosemide 20 mg tablet (Lasix) 20 mg PO DAILY 08/21/24 12/12/24 History vitamin B complex and vitamin C 1 cap PO QHS 08/21/24 09/11/24 History no.20-folic acid 1 mg capsule (Renal Caps) allopurinol 100 mg tablet 100 mg PO DAILY 08/29/24 03/08/25 History apixaban 5 mg tablet (Eliquis) 5 mg PO BID 08/29/24 03/07/25 History Held on 01/09/25. Instructions: Resume on 01/11/25. famotidine 20 mg tablet 20 mg PO QHS 09/12/24 12/12/24 History hydralazine 50 mg tablet 75 mg PO TID 09/12/24 03/08/25 History pantoprazole 40 mg tablet,delayed 40 mg PO DAILY 09/12/24 12/12/24 History release (Protonix) isosorbide mononitrate 60 mg 60 mg PO DAILY 11/20/24 12/12/24 History tablet,extended release 24 hr metoprolol succinate 25 mg 25 mg PO QHS 11/20/24 12/11/24 History tablet,extended release 24 hr sevelamer carbonate 800 mg tablet 800 mg PO TID 11/20/24 12/11/24 History docusate sodium 100 mg capsule 100 mg PO BID 01/05/25 Unknown History (Colace) insulin lispro 100 unit/mL 1 unit subcut BID SLIDING SCALE 01/05/25 Unknown History subcutaneous pen (Humalog KwikPen (U-100) Insulin) oxycodone-acetaminophen 5 mg-325 1 tab PO Q6H PRN pain 01/05/25 Unknown History mg tablet (Percocet) oxycodone 5 mg tablet 5 mg PO Q8H PRN pain 3 days #9 tabs 01/09/25 Unknown Rx Allergy/AdvReac Type Severity Reaction Status Date / Time codeine Allergy Severe Vomiting Verified 01/23/25 14:14 Surgical History Hx of colonoscopy History of esophagogastroduodenoscopy (EGD) Hx of cholecystectomy History of ankle surgery Social History Smoking Status: Former smoker Tobacco: How many years used: 30 how long ago did patient quit smokin yrs ROS Constitutional Constitutional: Denies chills, fever(s), frequent falls, lethargy or weakness Eyes Eyes: Denies blind spots, change in vision or loss of vision ENT HEENT: Denies bleeding gums, hoarseness or sore throat Cardiovascular Cardiovascular: Denies abdominal pain, bluish discoloration of hand/feet, chest pain with activity, claudication, cold extremities, cyanosis, dyspnea on exertion, erythema on extremities, irregular heart rhythm, leg edema, leg ulcers, numbness in extremities or weakness in extremities Respiratory/Chest Respiratory/Chest: Denies cough, excessive phlegm production, shortness of breath at rest, shortness of breath with exertion or wheezing Gastrointestinal Gastrointestinal: Denies anorexia, change in stool character, constipation, diarrhea, melena or rectal bleeding Genitourinary Genitourinary: Denies dysuria or hematuria Musculoskeletal Musculoskeletal: Denies abnormal gait Integumentary Integumentary: Reports other Details: ; Denies erythema, non-healing lesions or wounds Neurologic Neurologic: Denies abnormal speech, focal weakness, headache(s), loss of vision, numbness, paresthesias or sensory deficit Hematologic/Lymphatic Hematologic/Lymphatic: Denies easy bleeding, easy bruising or lymphadenopathy Vital Signs Vital Signs Vital Signs: Weight Weight: 193 lb Body Mass Index (BMI) 27.6 Physical Exam Const alert, oriented x3, no apparent distress and healthy appearing General Appearance: cooperative; Negative for combative or lethargic Orientation / Consciousness: awake Exam Limitations: no limitations HEENT Head and Scalp: normocephalic and atraumatic Eyes EOMs intact bilaterally General Eye: normal appearance of both eyes Neck full ROM General: trachea midline Resp normal respiratory effort and no use of accessory muscles Effort and Inspection: Negative for labored, stridor or audible wheezes Cardio regular rate and regular rhythm Back/Spine Cervical Spine: cervical ROM normal Extremity full ROM, normal capillary refill and no clubbing, cyanosis or edema Skin no rashes or lesions noted and no wounds Neuro oriented x3, CN's II-XII intact bilaterally, no focal motor deficits and no sensory deficits noted Psych thought process normal, cooperative, affect normal, speech normal and activity/motor behavior normal Assessment & Plan Assessment/Plan (1) Central venous catheter in place: PLAN: -remove catheter
--- NOTE | 2025-03-08 12:52 | OP.PCM_ITS ---
Operative Report (Standard) Operative Information Date of Procedure: 03/08/25 Pre-Operative Diagnosis: Presence of tunneled dialysis catheter no longer needed Post-Operative Diagnosis: Same Surgery/Procedure Performed: Removal of tunneled right IJ dialysis catheter consumer affairs director: No Type of Anesthesia: Local and Sedation,Conscious Procedure Start Time: 08:20 Procedure Stop Time: :25 Select all DRAINS/GRAFTS/IMPLANTS that apply: None Estimated Blood Loss: 2 Specimen collected: No Description of surgery: HPI: Patient is a 74-year-old male with end-stage renal disease currently on dialysis via a successful left upper arm fistula. He is no longer in need of his tunneled catheter so he presents now for removal. Description of procedure: Upon obtaining informed consent and verification correct patient procedure site the patient was taken to the Fleet Service Manager he was positioned prepped and draped in usual sterile fashion. Timeout was performed in consultation ministered Versed and fentanyl. Fluoroscopy imaging was obtained which revealed the catheter to be intact in 1 single piece. Skin overlying the cuff which was close proximity to the skin exit site was anesthetized 1% lidocaine and the exit site dissected with blunt dissection un til the cuff was visualized. The connective tissue surrounding the cuff was then bluntly and sharply dissected until it was free and mobile. The catheter was then withdrawn intact and manual pressure held over the IJ puncture site as well as over the skin exit site. Once satisfactory stasis was observed to dry sterile dressing was applied and patient was taken to the recovery area with plan discharged home. Surgical Findings: See above Complications Complications: No
== END 2025-03-08 09:45 | disposition home or self-care (01) ==
PROVIDERS: PCP Family Medicine; Referring Provider Surgery Trauma Surgery; Visit Provider Surgery Trauma Surgery
DX: Z45.2 Encounter for adjustment and management of vascular access device (principal); I13.2 Hypertensive heart and chronic kidney disease with heart failure and with stage 5 chronic kidney disease, or end stage renal disease; N18.6 End stage renal disease; I50.9 Heart failure, unspecified; I48.91 Unspecified atrial fibrillation; E11.22 Type 2 diabetes mellitus with diabetic chronic kidney disease; Z79.4 Long term (current) use of insulin; Z99.2 Dependence on renal dialysis; Z79.01 Long term (current) use of anticoagulants; Z79.899 Other long term (current) drug therapy; Z87.891 Personal history of nicotine dependence
CPT/HCPCS: 36589; 99152; 99153

== ENCOUNTER → 2025-06-05 | Outpatient (CLI) | payer MEDICARE, SELFPAY ==
--- NOTE | 2025-06-05 10:07 | AVDS_ITS ---
Reason For Study Reason For Study: Lt AVF Evaluation Left Velocities Inflow, 258.3/156.1 cm/sec. Inflow, 1594 ml/min. Prox anastamosis, 532.2/284.3 cm/sec. Prox anastamosis,6057 ml/min. Prox graft, 61.9/37.7 cm/sec. Prox graft, 1613 ml/min. Mid graft, 88.2/45.4 cm/sec. Mid graft, 2454 ml/min. Distal graft, 53.5/38.6 cm/sec. Distal graft, 640.6 ml/min. Distal graft, PTFE prox, 476.2/258.3 cm/sec. Distal graft, PTFE prox, 2513 ml/min. Distal graft, PTFE distal, 620.3/334.5 cm/sec. Distal graft, PTFE disal, 3330 ml/min. Outflow, 244.4/115.1 cm/sec. Outflow, 9077 ml/min. VL/AV Fistula/Dialysis Graft Scan Interpretation Summary Patent left upper extremity fistula with interposition graft with adequate esther clovis and flow volumes. Elevated stenosis at anastomosis to graft, may be secondary to diameter mismatc h. Ordering Physician: Lilia Martin Referring Physician: Lilia Martin Performed By: Mykel Browning RVT and Student
== END | disposition home or self-care (01) ==
LOC: CVS 10:07
PROVIDERS: PCP Family Medicine; Referring Provider Physician Assistant; Visit Provider Physician Assistant
DX: N18.6 End stage renal disease (principal); Z99.2 Dependence on renal dialysis; I77.0 Arteriovenous fistula, acquired
CPT/HCPCS: 93990